=== PATIENT | male | born 1955 | race Caucasian/White ===

== ENCOUNTER 2016-08-27 08:01 | Inpatient (IN) | payer MEDICAID ==
[~2016-08-27] VITALS: Ht 188 cm; Wt 106.8 kg
[2016-08-27] VITALS (22 sets, daily range): BP systolic 101–159; BP diastolic 74–106; PULSE 91–149; RESP 17–24; TEMP 98.1–99.1; O2SAT 93–100
[~2016-08-27 08:01] MED LIST: AMLO10 PO; CARV6.252 PO; CHLO25CA2 PO; IPRASOL NEB; LACT PO; LEVA750T PO; LISI-515 PO; THIA100T PO
[2016-08-27] MEDS ORDERED: SODIUM CHLORIDE 0.9% FLUSH 5 ML FLUSH IVF PRN (08:15)
[2016-08-27] MEDS ORDERED: METOPROLOL TARTRATE 5 MG/5 ML VIAL IV PUSH ONE ×2 (08:15→08:30)
[2016-08-27] MEDS ORDERED: AMLO10TA2 PO (08:28)
[2016-08-27] MEDS ORDERED: ONDANSETRON HCL 4 MG/2 ML VIAL IV PUSH ONE (08:30)
[2016-08-27] MEDS ORDERED: MORPHINE SULFATE 4 MG/ML INJ IV PUSH ONE (08:30)
--- NOTE | 2016-08-27 08:32 | PD ---
HPI Chief Complaint: Chest Pain Time Seen by Provider: 08:03 Travel History International Travel<30 days: No Contact w/Intl Traveler<30days: No Traveled to known affect area: No History of Present Illness HPI 61-year-old male came to the emergency room brought by EMS with history of chest pain and atrial fibrillation with RVR. Patient was given 20 mg of IV Cardizem by paramedics with little improvement of his RVR. When he arrived to the emergency room he continued to have his chest pain which he pointed to substernal area and his heart rate was in 140s to 150s. Patient is an alcoholic and he drank a pint of vodka last night. He has history of atrial fibrillation and was supposed to be on Eliquis but took himself off it because he was bruising and as per the patient it was not doing anything. No history of vomiting or diarrhea. No history of cough or fever. He says he was otherwise feeling fine last night. The pain started this morning. Patient says he has history of left bundle branch block. FORMERLY [facility], [facility] Past Medical History Narrative Medical List of his past medical history is reviewed from the nursing note. Hx Anticoagulant Therapy: Yes Arthritis: Yes (bursitis tendonitis) Asthma: No Atrial Fibrillation: Yes Autoimmune Disease: No Blood Disorders: No Anxiety: Yes Depression: Yes Heart Rhythm Problems: Yes (LBBB) Cancer: No Cardiovascular Problems: Yes High Cholesterol: No Chest Pain: Yes Congestive Heart Failure: Yes COPD: Yes Cerebrovascular Accident: No Diminished Hearing: No Endocrine: No Gastrointestinal Disorders: No Genitourinary: Yes (not urinating "a lot") Headaches: No Hypertension: Yes Immune Disorder: No Implanted Vascular Access Dvce: No Kidney Stones: Yes Musculoskeletal: Yes (broken bones in the past) Neurologic: Yes (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) Psychiatric: No Reproductive: No Respiratory: Yes (COPD) Immunizations Current: Yes Migraines: No Seizures: Yes Shingles: Yes Sleep Apnea: No Ulcer: No Past Surgical History Abdominal Surgery: Yes (HERNIA REPAIR) Cardiac Surgery: No Ear Surgery: No Endocrine Surgery: No Eye Surgery: No Genitourinary Surgery: No Gynecologic Surgery: No Neurologic Surgery: No Oral Surgery: No Thoracic Surgery: No Tonsillectomy: Yes Other Surgery: Yes Social History Alcohol Use: Yes (1-2 PINTS DAILY VODKA) Tobacco Use: Yes (OCCASIONAL) Substance Use: No Allergies-Medications (Allergen,Severity, Reaction): Coded Allergies: Keflex (Verified Allergy, Severe, hives, 08/27/16) Penicillin (Verified Allergy, Severe, hives, 08/27/16) Sulfa (Verified Allergy, Severe, hives, 08/27/16) Nitroglycerin (Verified Allergy, Mild, 08/27/16) vomit Comments List of his allergies reviewed from the nursing note. Reported Meds & Prescriptions Reported Meds & Active Scripts Active Thiamine (Thiamine HCl) 100 Mg Tab 100 Mg PO DAILY Reported Amlodipine (Amlodipine Besylate) 10 Mg Tab 20 Mg PO DAILY Lisinopril 20 Mg Tab 20 Mg PO DAILY Carvedilol 6.25 Mg Tab 6.25 Mg PO BID Narrative Medication List of his home medications reviewed from the nursing note. Review of Systems Except as stated in HPI: all other systems reviewed are Neg Physical Exam Narrative GENERAL: Awake, alert, obese, disheveled, smells of alcohol on his breath SKIN: Warm and dry. HEAD: Atraumatic. Normocephalic. EYES: Pupils equal and round. No scleral icterus. No injection or drainage. ENT: No nasal bleeding or discharge. Mucous membranes pink and moist. NECK: Trachea midline. No JVD. CARDIOVASCULAR: Irregular rate and rhythm. Tachycardia. No murmur appreciated. RESPIRATORY: No accessory muscle use. Clear to auscultation. Breath sounds equal bilaterally. GASTROINTESTINAL: Abdomen soft, non-tender, nondistended. Hepatic and splenic margins not palpable. MUSCULOSKELETAL: No obvious deformities. No clubbing. No cyanosis. No edema. NEUROLOGICAL: Awake and alert. No obvious cranial nerve deficits. Motor grossly within normal limits. Normal speech. PSYCHIATRIC: Appropriate mood and affect; insight and judgment normal. Data Data Last Documented VS Vital Signs Date Time Temp Pulse Resp B/P Pulse Ox O2 Delivery O2 Flow Rate FiO2 08/27/16 09:47 18 08/27/16 09:43 109 147/74 97 Nasal Cannula 2 08/27/16 08:05 99.1 Orders Metoprolol Tartrate Inj (Lopressor Inj) (08/27/16 08:15) Electrocardiogram (08/27/16 08:08) Basic Metabolic Panel (Bmp) (08/27/16 08:08) Ckmb (Isoenzyme) Profile (08/27/16 08:08) Complete Blood Count With Diff (08/27/16 08:08) Magnesium (Mg) (08/27/16 08:08) Prothrombin Time / Inr (Pt) (08/27/16 08:08) Act Partial Throm Time (Ptt) (08/27/16 08:08) Troponin I (08/27/16 08:08) Chest, Single Ap (08/27/16 08:08) Ecg Monitoring (08/27/16 08:08) Bilateral Bp Monitoring (08/27/16 08:08) Iv Access Insert/Monitor (08/27/16 08:08) Oximetry (08/27/16 08:08) Oxygen Administration (08/27/16 08:08) Sodium Chloride 0.9% Flush (Ns Flush) (08/27/16 08:15) Vital Signs (Adult) Q15MX4,Q4H (08/27/16 08:09) ^ Plate Glass Grinder / Telemetry (08/27/16 08:09) Cardiac Rhythm WONG.Q8H (08/27/16 08:09) ^ Notify Dr: Other (08/27/16 08:09) Diltiazem Inj (Cardizem Inj) (08/27/16 08:15) Metoprolol Tartrate Inj (Lopressor Inj) (08/27/16 08:30) Morphine Inj (Morphine Inj) (08/27/16 08:30) Ondansetron Inj (Zofran Inj) (08/27/16 08:30) Heparin Infusion WONG.Q1H (08/27/16 08:33) Heparin Inj (Heparin Inj) (08/27/16 08:45) Heparin-D5w Inj (Heparin-D5w Inj) (08/27/16 08:45) Cbc No Diff, Includes Plts (08/30/16 06:00) Act Partial Throm Time (Ptt) (08/27/16 15:33) Occult Blood (Hemoccult) Stool (08/27/16 08:33) Diltiazem Inj (Cardizem Inj) (08/27/16 09:15) CKMB (08/27/16 08:41) CKMB% (08/27/16 08:41) Lorazepam Inj (Ativan Inj) (08/27/16 09:45) Calcium Gluconate (Calcium Gluconate) (08/27/16 10:15) Admit Order (Ed Use Only) (08/27/16 10:20) Diet Heart Healthy (08/27/16 Lunch) Vital Signs (Adult) WONG.Q4H (08/27/16 10:19) Resp Oxygen Melecio C Titrat 1-4 L (08/27/16 ) Troponin I (08/27/16 15:00) Troponin I (08/27/16 21:00) Multivitamin (Theragran) (08/28/16 09:00) Thiamine (Vit B1) (Vitamin B1) (08/28/16 09:00) Labs Laboratory Tests Test 08/27/16 08:41 White Blood Count 5.7 TH/MM3 Red Blood Count 4.70 MIL/MM3 Hemoglobin 15.6 GM/DL Hematocrit 45.9 % Mean Corpuscular Volume 97.6 FL Mean Corpuscular Hemoglobin 33.2 PG Mean Corpuscular Hemoglobin 34.0 % Concent Red Cell Distribution Width 14.7 % Platelet Count 179 TH/MM3 Mean Platelet Volume 7.4 FL Neutrophils (%) (Auto) 62.0 % Lymphocytes (%) (Auto) 21.2 % Monocytes (%) (Auto) 14.8 % Eosinophils (%) (Auto) 1.0 % Basophils (%) (Auto) 1.0 % Neutrophils # (Auto) 3.6 TH/MM3 Lymphocytes # (Auto) 1.2 TH/MM3 Monocytes # (Auto) 0.8 TH/MM3 Eosinophils # (Auto) 0.1 TH/MM3 Basophils # (Auto) 0.1 TH/MM3 CBC Comment DIFF FINAL Differential Comment Prothrombin Time 11.4 SEC Prothromb Time International 1.0 RATIO Ratio Activated Partial 25.4 SEC Thromboplast Time Sodium Level 143 MEQ/L Potassium Level 4.4 MEQ/L Chloride Level 106 MEQ/L Carbon Dioxide Level 25.8 MEQ/L Anion Gap 11 MEQ/L Blood Urea Nitrogen 14 MG/DL Creatinine 0.87 MG/DL Estimat Glomerular Filtration 89 ML/MIN Rate Random Glucose 110 MG/DL Calcium Level 7.8 MG/DL Magnesium Level 1.7 MG/DL Total Creatine Kinase 149 U/L Creatine Kinase MB 2.6 NG/ML Troponin I 0.04 NG/ML MDM Medical Decision Making Medical Screen Exam Complete: Yes Emergency Medical Condition: Yes Medical Record Reviewed: Yes Interpretation(s) Twelve-lead EKG was reviewed by me. Atrial fibrillation/atrial flutter, to his to 1 block, normal axis, RVR, left bundle branch block. Heart rate of 150 bpm. Differential Diagnosis Chronic alcoholism, atrial fibrillation with RVR, ACS, non-STEMI Narrative Course 8:31 AM patient was given 5 mg of IV Lopressor followed by 2.5 mg. I injected the Lopressor personally. His heart rate currently is in 1 teens. I waiting for the Cardizem drip. I will start him on heparin bolus and drip as well. Patient will need to be admitted. He was given morphine and Zofran for his chest pain. Awaiting for the blood test results. 10:03 AM patient's blood test results of back and they are overall within normal limit. His calcium is slightly low and I have ordered for by mouth calcium. Patient is currently on Cardizem drip and heparin drip and his heart rate is between 120s to 130s. He had received another 20 mg of Cardizem bolus. He also requested for Ativan IV which was ordered. Critical Care Narrative Aggregate critical care time was 60 minutes. Time to perform other separately billable procedures was not included in the critical care time. My time did not include minutes spent treating any other patients simultaneously or on activities that did not directly contribute to the patient's treatment. The services I provided to this patient were to treat and/or prevent clinically significant deterioration that could result in: Atrial fibrillation with RVR, multiple medications and doses for RVR control , Cardizem bolus and drip, heparin bolus and drip I provided critical care services requiring my management, as noted below: Chart data review, documentation time, medication orders and management, vital sign assessments/reviewing monitor data, ordering and reviewing lab tests, ordering and interpreting/reviewing x-rays and diagnostic studies, care of the patient and discussion of the patient with the admitting physicians. Procedures EKG Prior to Arrival: Yes Diagnosis Primary Impression: Atrial fibrillation with RVR Additional Impressions: Alcohol dependence Qualified Code: F10.20 - Uncomplicated alcohol dependence Chest pain Qualified Code: R07.9 - Chest pain, unspecified type Admitting Information Admitting Physician Requests: it Mateo Carlson MD Aug 27, 2016 08:32
[2016-08-27] MEDS: DILTIAZEM INJ 125 MG in SODIUM CHLORIDE 0.9% INJ 100 ML IV SCH (08:34)
[2016-08-27] MEDS ORDERED: HEPARIN SODIUM - IV 10,000 UNITS/10 ML VIAL IV ONE (08:45)
[2016-08-27 08:58] LABS: AUTOMATED NEUTROPHIL # 3.6 TH/MM3 (1.8-7.7); BASOPHIL # 0.1 TH/MM3 (0-0.2); EOSINOPHIL # 0.1 TH/MM3 (0-0.4); HEMATOCRIT 45.9 % (39.0-51.0); HEMO FLAGS DIFF FINAL; LYMPH % 21.2 % (9.0-44.0); LYMPHOCYTE # 1.2 TH/MM3 (1.0-4.8); MEAN CELL VOLUME 97.6 FL (80.0-100.0); MEAN CORPUSCULAR HEMOGLOBIN 33.2 PG (27.0-34.0); MONO % 14.8 % (0.0-8.0); PLATELET COUNT 179 TH/MM3 (150-450); RED CELL DISTRIBUTION WIDTH 14.7 % (11.6-17.2); WHITE BLOOD COUNT 5.7 TH/MM3 (4.0-11.0)
[2016-08-27] MEDS: HEPARIN-D5W INJ 250 ML IV SCH (08:59)
[2016-08-27 09:04] LABS: APTT (PATIENT) 25.4 SEC (24.3-30.1); PROTHROMBIN TIME - PATIENT 11.4 SEC (9.8-11.6)
--- NOTE | 2016-08-27 09:04 | RADRPT ---
EXAM DATE/TIME: 08/27/2016 08:43 [facility] COMPARISON: CHEST SINGLE AP, August 03, 2016, 4:11. INDICATIONS : Chest pain, shortness of breath and shaking. MEDICAL HISTORY : Chronic obstructive pulmonary disease. SURGICAL HISTORY : None. ENCOUNTER: Initial ACUITY: 1 day PAIN SCORE: 5/10 LOCATION: Center of chest. FINDINGS: A single view of the chest demonstrates the lungs to be symmetrically aerated without evidence of mas s, infiltrate or effusion. The cardiomediastinal contours are unremarkable. Osseous structures are intact. CONCLUSION: Normal examination. Kentrell Eubanks MD on August 27, 2016 at 9:02 Board Certified Radiologist. This report was verified electronically.
[2016-08-27] MEDS ORDERED: DILTIAZEM HCL 25 MG/5 ML VIAL IV ONE (09:15)
[2016-08-27 09:25] LABS: ANION GAP 11 MEQ/L (5-15); BICARBONATE 25.8 MEQ/L (21.0-32.0); BLOOD UREA NITROGEN 14 MG/DL (7-18); CHLORIDE 106 MEQ/L (98-107); CREATINE KINASE 149 U/L (39-308); GLOMERULAR FILTRATION RATE 89 ML/MIN (>89); MAGNESIUM 1.7 MG/DL (1.5-2.5); POTASSIUM 4.4 MEQ/L (3.5-5.1); SODIUM (NA) 143 MEQ/L (136-145)
[2016-08-27 09:38] LABS: CKMB 2.6 NG/ML (0.5-3.6)
[2016-08-27] MEDS ORDERED: LORazepam 2 MG/ML VIAL IV PUSH ONE (09:45)
[2016-08-27] MEDS ORDERED: CALCIUM GLUCONATE 500 MG TAB PO ONE (10:15)
[2016-08-27] MEDS ORDERED: SODIUM CHLORIDE 0.9% FLUSH 5 ML FLUSH IV FLUSH PRN (10:45)
--- NOTE | 2016-08-27 10:49 | HHI.HP ---
[facility] Service [facility] Primary Care Physician Jessica Flores MD Admission Diagnosis A. fib with RVR, chest pain rule out ACS, alcohol dependence Diagnoses: (1) Atrial fibrillation with RVR Diagnosis: Principal (2) Anxiety Diagnosis: Principal (3) Chest pain Diagnosis: Principal Chief Complaint: sob Travel History International Travel<30 Days: No Contact w/Intl Traveler <30 Da: No Traveled to Known Affected Are: No History of Present Illness patient is a 61 y/o male with history of hypertension, atrial fibrillation, chronic alcohol abuser, who presented with sob. he says that earlier this morning when he was going to gas station he started to have worsening sob. he also had some midsternal chest pain.his HR was in 140's at the time. he denies any fever, chills or cough. he says that he had some nausea with no emesis or diaphoresis.he drinks a pint of Vodka daily and the last drink was last night. he says that he was on eliquis which he stopped last year because of bruising. Review of Systems Constitutional: DENIES: Fever, Weight loss, Chills, Night Sweats Eyes: DENIES: Blurred vision, Diplopia, Vision loss, Double Vision Ears, nose, mouth, throat: DENIES: Tinnitus, Vertigo, Throat pain, Epistaxis Respiratory: COMPLAINS OF: Shortness of breath, DENIES: Apneas, Cough, Snoring , Wheezing, Hemoptysis, Sputum production Cardiovascular: COMPLAINS OF: Chest pain, DENIES: Palpitations, Syncope, Dyspnea on Exertion, PND, Lower Extremity Edema, Orthopnea, Claudication Gastrointestinal: COMPLAINS OF: Nausea, DENIES: Abdominal pain, Black stools, Bloody stools, Constipation, Diarrhea, Vomiting, Difficulty Swallowing, Anorexia Genitourinary: DENIES: Urinary frequency, Urgency, Hematuria, Dysuria Musculoskeletal: DENIES: Joint pain, Muscle aches, Stiffness, Joint Swelling Integumentary: DENIES: Rash Neurologic: DENIES: Abnormal gait, Headache, Localized weakness, Paresthesias, Seizures, Speech Problems, Tremor, Poor Balance Psychiatric: DENIES: Anxiety, Confusion, Mood changes, Depression, Hallucinations, Agitation, Suicidal Ideation, Homicidal Ideation, Delusions Past Family Social History Past Medical History hypertension cardiomyopathy Past Surgical History multiple ortho surgeries. Reported Medications thiamine coreg amlodipine lisinopril Allergies: Coded Allergies: Keflex (Verified Allergy, Severe, hives, 08/27/16) Penicillin (Verified Allergy, Severe, hives, 08/27/16) Sulfa (Verified Allergy, Severe, hives, 08/27/16) Nitroglycerin (Verified Allergy, Mild, 08/27/16) vomit Active Ordered Medications Current Medications Metoprolol Tartrate (Lopressor Inj) 5 mg ONCE ONCE IV PUSH Last administered on 08/27/16 08:21; Start 08/27/16 at 08:15; Stop 08/27/16 at 08:16; Status DC IV Flush 2 ml 2 ml UNSCH PRN IVF FLUSH AFTER USING IV ACCESS Last administered on 08/27/16 08:22; Start 08/27/16 at 08:15 Diltiazem HCl/ Sodium Chloride (Cardizem Inj/NS Inj) 125 ml @ 0 mls/hr TITRATE IV Last administered on 08/27/16 08:34; Start 08/27/16 at 08:15 Metoprolol Tartrate (Lopressor Inj) 2.5 mg ONCE ONCE IV PUSH Last administered on 08/27/16 08:21; Start 08/27/16 at 08:30; Stop 08/27/16 at 08:31 ; Status DC Morphine Sulfate (Morphine Inj) 4 mg ONCE ONCE IV PUSH Last administered on 08:33; Start 08/27/16 at 08:30; Stop 08/27/16 at 08:31; Status DC Ondansetron HCl (Zofran Inj) 4 mg ONCE ONCE IV PUSH Last administered on 08:33; Start 08/27/16 at 08:30; Stop 08/27/16 at 08:31; Status DC Heparin Sodium (Porcine) 5000 units 5,000 units ONCE ONCE IV Last administered on 08/27/16 08:58; Start 08/27/16 at 08:45; Stop 08/27/16 at 08:46 ; Status DC Heparin Sodium/ Dextrose (Heparin-D5W Inj) 250 ml @ 0 mls/hr TITRATE IV Last administered on 08/27/16 08:59; Start 08/27/16 at 08:45 Diltiazem HCl (Cardizem Inj) 20 mg ONCE ONCE IV Last administered on 09:15; Start 08/27/16 at 09:15; Stop 08/27/16 at 09:16; Status DC Lorazepam (Ativan Inj) 1 mg ONCE ONCE IV PUSH Last administered on 08/27/16 09:38; Start 08/27/16 at 09:45; Stop 08/27/16 at 09:46; Status DC Calcium Gluconate (Calcium Gluconate) 500 mg ONCE ONCE PO ; Start 08/27/16 at 10:15; Stop 08/27/16 at 10:16; Status DC Multivitamins (Theragran) 1 tab DAILY PO ; Start 08/28/16 at 09:00 Thiamine HCl (Vitamin B1) 100 mg DAILY PO ; Start 08/28/16 at 09:00; Status UNV Family History a-fib in mother. Social History quit smoking- drinks a pint of Vodka daily. Physical Exam Vital Signs Vital Signs Date Time Temp Pulse Resp B/P Pulse Ox O2 Delivery O2 Flow Rate FiO2 08/27/16 10:26 97 Nasal Cannula 2.00 08/27/16 09:47 18 08/27/16 09:43 109 19 147/74 97 Nasal Cannula 2 08/27/16 09:11 129 18 159/100 97 Nasal Cannula 2 08/27/16 09:04 123 17 99 Nasal Cannula 2 08/27/16 08:54 129 20 155/97 97 Nasal Cannula 08/27/16 08:40 148/83 153/103 08/27/16 08:25 130 20 129/97 97 Nasal Cannula 08/27/16 08:18 113 22 148/105 100 Nasal Cannula 2 08/27/16 08:05 99.1 149 24 130/90 97 Physical Exam GENERAL: This is a well-nourished, well-developed patient, in no apparent distress. SKIN: No rashes, ecchymoses or lesions. Cool and dry. HEAD: Atraumatic. Normocephalic. No temporal or scalp tenderness. EYES: Pupils equal round and reactive. Extraocular motions intact. No scleral icterus. No injection or drainage. ENT: Nose without bleeding, purulent drainage or septal hematoma. Throat without erythema, tonsillar hypertrophy or exudate. Uvula midline. Airway patent. NECK: Trachea midline. No JVD or lymphadenopathy. Supple, nontender, no meningeal signs. CARDIOVASCULAR:irregular rhythm and tachycardic RESPIRATORY: Clear to auscultation. Breath sounds equal bilaterally. No wheezes , rales, or rhonchi. GASTROINTESTINAL: Abdomen soft, non-tender, nondistended. No hepato-splenomegaly , or palpable masses. No guarding. MUSCULOSKELETAL: Extremities without clubbing, cyanosis, or edema. No joint tenderness, effusion, or edema noted. No calf tenderness. Negative Homans sign bilaterally. NEUROLOGICAL: Awake and alert. Cranial nerves II through XII intact. Motor and sensory grossly within normal limits. Five out of 5 muscle strength in all muscle groups. Normal speech. Laboratory Laboratory Tests Test 08/27/16 08:41 White Blood Count 5.7 Red Blood Count 4.70 Hemoglobin 15.6 Hematocrit 45.9 Mean Corpuscular Volume 97.6 Mean Corpuscular Hemoglobin 33.2 Mean Corpuscular Hemoglobin 34.0 Concent Red Cell Distribution Width 14.7 Platelet Count 179 Mean Platelet Volume 7.4 Neutrophils (%) (Auto) 62.0 Lymphocytes (%) (Auto) 21.2 Monocytes (%) (Auto) 14.8 Eosinophils (%) (Auto) 1.0 Basophils (%) (Auto) 1.0 Neutrophils # (Auto) 3.6 Lymphocytes # (Auto) 1.2 Monocytes # (Auto) 0.8 Eosinophils # (Auto) 0.1 Basophils # (Auto) 0.1 CBC Comment DIFF FINAL Differential Comment Prothrombin Time 11.4 Prothromb Time International 1.0 Ratio Activated Partial 25.4 Thromboplast Time Sodium Level 143 Potassium Level 4.4 Chloride Level 106 Carbon Dioxide Level 25.8 Anion Gap 11 Blood Urea Nitrogen 14 Creatinine 0.87 Estimat Glomerular Filtration 89 Rate Random Glucose 110 Calcium Level 7.8 Magnesium Level 1.7 Total Creatine Kinase 149 Creatine Kinase MB 2.6 Troponin I 0.04 Result Diagram: 08/27/16 0841 08/27/16 0841 Imaging CXR; normal EKG; atrial fibrillation with rapid rate and LBBB Assessment and Plan Assessment and Plan A/P - atrial fibrillation with rapid rate started on IV cardizem and hemarin drip- will start po cardizem and monitor will consider cardiology consult if no improvement with HR had a recent echo not a good candidate for outpatient anticoagulation in light of his alcohol dependency and noncompliance -chest pain; will start aspirin- check the cardiac enzyme trend had a stress test less than a year ago with no ischemia -cardiomyopathy ( recent echo with EF 40%); will resume lisinopril if BP stable -alcohol abuse; counselled on drinking cessation- start on Ativan as needed/ will resume thiamine and start multivitamin -DVT prophylaxis ; on heparin drip Discussed Condition With ER physician, the patient and RN. Physician Certification 2 Midnight Certification Type: Admission for Inpatient Services Order for Inpatient Services The services are ordered in accordance with Medicare regulations or non- Medicare payer requirements, as applicable. In the case of services not specified as inpatient-only, they are appropriately provided as inpatient services in accordance with the 2-midnight benchmark. Estimated LOS (days): 2 days is the estimated time the patient will need to remain in the hospital, assuming treatment plan goals are met and no additional complications. Post-Hospital Plan: Home Problem Qualifiers (1) Chest pain: Qualified Code: R07.9 - Chest pain, unspecified type Lisa Varela MD Aug 27, 2016 10:49
[2016-08-27] MEDS: ASPIRIN 81 MG CHEW TAB CHEW SCH (11:21)
[2016-08-27] MEDS: DILTIAZEM HCL 30 MG TAB PO SCH ×4 (11:21→21:00)
[2016-08-27] MEDS ORDERED: FLUMAZENIL 0.5 MG/5 ML VIAL IV PUSH PRN (12:00)
[2016-08-27] MEDS ORDERED: LORazepam 2 MG/ML VIAL IV PUSH PRN (12:00)
[2016-08-27] MEDS: MORPHINE SULFATE 4 MG/ML INJ IV PUSH PRN ×3 (12:22→20:36)
[2016-08-27] MEDS: LORazepam 2 MG/ML VIAL IV PUSH PRN ×6 (13:02→22:11)
[2016-08-27 15:30] LABS: APTT (PATIENT) 54.4 SEC (24.3-30.1)
--- NOTE | 2016-08-27 18:04 | MB ---
cc: JUNIOR LEW MD DATE OF CONSULTATION: 08/27/2016. REASON FOR CONSULTATION: Recurrent atrial fibrillation. HISTORY OF PRESENT ILLNESS: The patient is a pleasant though troubled 61-year-old gentleman with history of chronic alcohol abuse with multiple presentations for rapid atrial fibrillation and atypical chest pain. He presents with the same. He is currently asking for pain medications. He says he continues to drink over a pint of vodka a day but he was successful in smoking cessation. The symptoms started earlier this morning. He does say he has been compliant with his outpatient regimen, though there are multiple documented reports in the chart of noncompliance. PAST MEDICAL HISTORY: Past medical history as above. CURRENT MEDICATIONS: 1. Thiamine. 2. Folate. 3. Morphine. 4. Cardizem 30 milligrams four times a day. ALLERGIES: 1. KEFLEX. 2. NITROGLYCERIN. 3. PENICILLIN. 4. SULFA. PHYSICAL EXAMINATION: VITAL SIGNS: Temperature 99.1, pulse 1-teens, respiratory rate 17, blood pressure 127/93 satting 96 on room air. GENERAL: A pleasant anxious gentleman in no distress. NECK: No jugular venous distention. LUNGS: Clear to auscultation bilaterally. CARDIOVASCULAR: Irregularly irregular rhythm with a mildly rapid rate. No murmurs appreciated. ABDOMEN: Benign. EXTREMITIES: No edema. LABORATORY DATA: White count 5.7, hematocrit 45.9, platelet count 179,000. Sodium 143, potassium 4.4, chloride 106, bicarbonate 25.8, BUN 14, creatinine 0.87, glucose 110. White count 5.7, hematocrit 45.9, platelets 179,000. CARDIOLOGY STUDIES: EKG shows atrial fibrillation with rapid ventricular response and left bundle-branch block. Nuclear stress test from November of 2015 showed no ischemia. Her echocardiogram 06/2016 showed a reduced ejection fraction of 30% to 35%. IMPRESSION: 1. Rapid atrial fibrillation. The patient is currently on a Cardizem drip. I will increase the oral regimen and add metoprolol to his oral Cardizem. He is not a candidate for anticoagulation due to his poor compliance and ongoing alcohol abuse. 2. Alcoholic cardiomyopathy. The patient is being medically managed. I do think he should discuss the possibility of a defibrillator with his outpatient microbiology technologist should he be able to maintain a compliant regimen of both medication and follow up visits. I did explain at length with the patient that his ongoing drinking will have severe morbidity and mortality risk and recommended inpatient rehab. He says he will consider. Thank you again for the opportunity to participate in this patient's care. MD RUDOLPH Dacosta/JEREMIAH /3:18 PM /5:56 PM
[2016-08-27] MEDS: SODIUM CHLORIDE 0.9% FLUSH 5 ML FLUSH IV FLUSH SCH (21:00)
[2016-08-27] MEDS: CARVEDILOL 6.25 MG TAB PO SCH (21:49)
[2016-08-27 22:03] LABS: APTT (PATIENT) 51.9 SEC (24.3-30.1)
[2016-08-28] VITALS (26 sets, daily range): BP systolic 85–142; BP diastolic 68–106; PULSE 78–126; RESP 18–22; TEMP 97.5–99.1; O2SAT 92–96
[2016-08-28] MEDS: MORPHINE SULFATE 4 MG/ML INJ IV PUSH PRN ×5 (00:11→22:20)
[2016-08-28] MEDS: LORazepam 2 MG/ML VIAL IV PUSH PRN ×5 (00:11→18:30)
[2016-08-28 06:00] LABS: APTT (PATIENT) 52.1 SEC (24.3-30.1)
--- NOTE | 2016-08-28 09:01 | HHI.PR ---
Subjective Remarks f/u; rapid a-fib/ alcohol withdrawal in no acute distress. has on and off chest pain and mild sob. still somewhat ' shaky' but says that ativan helps. asking for something to help him with sleep. d/w the RN and no other acute issues over night. Objective Vitals Vital Signs Date Time Temp Pulse Resp B/P Pulse Ox O2 Delivery O2 Flow Rate FiO2 08/28/16 07:00 103 08/28/16 07:00 103 22 117/85 08/28/16 06:00 99 08/28/16 06:00 99 20 116/100 08/28/16 05:30 99 20 120/79 08/28/16 05:00 97 20 127/76 08/28/16 05:00 97 08/28/16 04:00 99 20 136/94 08/28/16 04:00 99 08/28/16 03:30 98.1 116 20 117/81 92 08/28/16 03:00 93 08/28/16 02:00 95 08/28/16 02:00 122/82 08/28/16 01:00 108 08/28/16 00:00 98.1 91 20 101/85 96 08/28/16 00:00 119 08/27/16 23:00 98 18 127/94 93 08/27/16 21:45 118 20 149/100 95 08/27/16 21:30 119 08/27/16 21:00 98.2 119 20 134/106 96 08/27/16 20:18 109 129/96 97 Nasal Cannula 2 08/27/16 18:24 126 18 142/98 97 Nasal Cannula 2 08/27/16 17:46 17 08/27/16 17:41 103 17 136/89 97 Nasal Cannula 2 08/27/16 16:38 109 17 145/92 96 Nasal Cannula 2 08/27/16 15:26 102 20 134/98 98 Nasal Cannula 2 08/27/16 14:22 110 17 127/93 96 Room Air 08/27/16 13:30 119 18 132/90 97 Nasal Cannula 2 08/27/16 12:23 110 18 156/79 98 Nasal Cannula 2 08/27/16 11:28 112 18 130/94 97 Nasal Cannula 2 08/27/16 10:30 106 20 117/99 98 Nasal Cannula 2 08/27/16 10:26 97 Nasal Cannula 2.00 08/27/16 09:47 18 08/27/16 09:43 109 19 147/74 97 Nasal Cannula 2 08/27/16 09:11 129 18 159/100 97 Nasal Cannula 2 08/27/16 09:04 123 17 99 Nasal Cannula 2 I/O 08/27/16 08/27/16 08/27/16 08/28/16 08/28/16 08/28/16 07:00 15:00 23:00 07:00 15:00 23:00 Intake Total 720 ml 938 ml Output Total 200 ml 300 ml Balance 520 ml 638 ml Intake Oral 720 ml 300 ml IV Total 638 ml Output Urine Total 200 ml 300 ml # Voids 1 Result Diagram: 08/27/16 0841 08/27/16 0841 Imaging Last Impressions Chest X-Ray 08/27/16 0808 Signed Impressions: Service Date/Time: Saturday, August 27, 2016 08:43 - CONCLUSION: Normal examination. Kentrell Eubanks MD Objective Remarks GENERAL: This is a well-nourished, well-developed patient, in no apparent distress. CARDIOVASCULAR: tachycardic with irregular rhythm without murmurs, gallops, or rubs. RESPIRATORY: Clear to auscultation. Breath sounds equal bilaterally. No wheezes , rales, or rhonchi. GASTROINTESTINAL: Abdomen soft, non-tender, nondistended. Normal, active bowel sounds MUSCULOSKELETAL: Extremities without clubbing, cyanosis, or edema. NEURO: Alert & Oriented x4 to person, place, time, situation. Moves all ext x4 Procedures none Medications and IVs Current Medications Metoprolol Tartrate (Lopressor Inj) 5 mg ONCE ONCE IV PUSH Last administered on 08/27/16 08:21; Start 08/27/16 at 08:15; Stop 08/27/16 at 08:16; Status DC IV Flush 2 ml 2 ml UNSCH PRN IVF FLUSH AFTER USING IV ACCESS Last administered on 08/27/16 08:22; Start 08/27/16 at 08:15 Diltiazem HCl/ Sodium Chloride (Cardizem Inj/NS Inj) 125 ml @ 0 mls/hr TITRATE IV Last administered on 08/27/16 08:34; Start 08/27/16 at 08:15 Metoprolol Tartrate (Lopressor Inj) 2.5 mg ONCE ONCE IV PUSH Last administered on 08/27/16 08:21; Start 08/27/16 at 08:30; Stop 08/27/16 at 08:31 ; Status DC Morphine Sulfate (Morphine Inj) 4 mg ONCE ONCE IV PUSH Last administered on 08:33; Start 08/27/16 at 08:30; Stop 08/27/16 at 08:31; Status DC Ondansetron HCl (Zofran Inj) 4 mg ONCE ONCE IV PUSH Last administered on 08:33; Start 08/27/16 at 08:30; Stop 08/27/16 at 08:31; Status DC Heparin Sodium (Porcine) 5000 units 5,000 units ONCE ONCE IV Last administered on 08/27/16 08:58; Start 08/27/16 at 08:45; Stop 08/27/16 at 08:46 ; Status DC Heparin Sodium/ Dextrose (Heparin-D5W Inj) 250 ml @ 0 mls/hr TITRATE IV Last administered on 08/27/16 08:59; Start 08/27/16 at 08:45 Diltiazem HCl (Cardizem Inj) 20 mg ONCE ONCE IV Last administered on 09:15; Start 08/27/16 at 09:15; Stop 08/27/16 at 09:16; Status DC Lorazepam (Ativan Inj) 1 mg ONCE ONCE IV PUSH Last administered on 08/27/16 09:38; Start 08/27/16 at 09:45; Stop 08/27/16 at 09:46; Status DC Calcium Gluconate (Calcium Gluconate) 500 mg ONCE ONCE PO Last administered on 08/27/16 11:00; Start 08/27/16 at 10:15; Stop 08/27/16 at 10:16; Status DC Multivitamins (Theragran) 1 tab DAILY PO ; Start 08/28/16 at 09:00 Thiamine HCl (Vitamin B1) 100 mg DAILY PO ; Start 08/28/16 at 09:00 IV Flush (NS Flush) 2 ml UNSCH PRN IV FLUSH FLUSH AFTER USING IV ACCESS; Start 08/27/16 at 10:45 IV Flush (NS Flush) 2 ml BID IV FLUSH ; Start 08/27/16 at 21:00 Flumazenil (Romazicon Inj) 0.2 mg Q1M PRN IV PUSH SEE LABEL COMMENTS; Start at 12:00; Stop 08/27/16 at 12:05; Status DC Lorazepam (Ativan) 1 mg Q4H PRN PO CIWA 8 - 10; Start 08/27/16 at 10:45 Lorazepam (Ativan Inj) 1 mg Q4H PRN IV PUSH CIWA 8 - 10 Last administered on 08:21; Start 08/27/16 at 12:00 Lorazepam (Ativan) 2 mg Q2H PRN PO CIWA 11-14; Start 08/27/16 at 12:00 Lorazepam (Ativan Inj) 2 mg Q2H PRN IV PUSH CIWA 11-14 Last administered on 02:40; Start 08/27/16 at 12:00 Lorazepam (Ativan Inj) 2 mg Q1H PRN IV PUSH CIWA 15-20 Last administered on 20:37; Start 08/27/16 at 12:00 Lorazepam (Ativan Inj) 2 mg Q15M PRN IV PUSH CIWA > 20; Start 08/27/16 at 12:00 Diltiazem HCl (Cardizem) 30 mg QID PO Last administered on 08/27/16 13:28; Start 08/27/16 at 11:00; Stop 08/27/16 at 15:23; Status DC Morphine Sulfate (Morphine Inj) 2 mg Q4HR PRN IV PUSH CHEST PAIN Last administered on 08/28/16 04:42; Start 08/27/16 at 12:00 Aspirin (Aspirin Chew) 162 mg DAILY CHEW Last administered on 08/27/16 11:21; Start 08/27/16 at 11:00 Diltiazem HCl (Cardizem) 60 mg QID PO Last administered on 08/27/16 18:23; Start 08/27/16 at 18:00 Carvedilol (Coreg) 6.25 mg Q12HR PO Last administered on 08/27/16 21:49; Start 08/27/16 at 21:00 A/P Assessment and Plan A/P - atrial fibrillation with rapid rate started on IV cardizem and hemarin drip- started on po cardizem and coreg.continue aspirin not a good candidate for outpatient anticoagulation in light of his alcohol dependency and noncompliance cardiology consult appreciated. had an echo in 2015 with EF 40% -chest pain;cardiac enzymes negative-cardiology following. had a stress test less than a year ago with no ischemia -cardiomyopathy ( recent echo with EF 40%); will consider resuming lisinopril if BP stable -alcohol withdrawal; counselled on drinking cessation- started on Ativan as needed/ continue multivitamin and thiamine -DVT prophylaxis ; on heparin drip Lisa Varela MD Aug 28, 2016 09:01
[2016-08-28] MEDS: ASPIRIN 81 MG CHEW TAB CHEW SCH (10:11)
[2016-08-28] MEDS: CARVEDILOL 6.25 MG TAB PO SCH ×2 (10:11→20:35)
[2016-08-28] MEDS: DILTIAZEM HCL 30 MG TAB PO SCH (10:11)
[2016-08-28] MEDS: THIAMINE HCL 100 MG TAB PO SCH (10:11)
[2016-08-28] MEDS: SODIUM CHLORIDE 0.9% FLUSH 5 ML FLUSH IV FLUSH SCH ×2 (10:12→20:35)
[2016-08-28] MEDS: MULTIVITAMIN TAB PO SCH (10:12)
--- NOTE | 2016-08-28 10:20 | PD.CARD.PN ---
Subjective Subjective Remarks Rates improving, still on ggt Objective Medications Administered Medications Medications (Trade) Dose Ordered Sig/Candy Route PRN Reason Start Time Stop Time Status Last Admin Dose Admin IV Flush 2 ml 2 ml UNSCH PRN IVF FLUSH AFTER USING IV ACCESS 08/27/16 08:15 08/27/16 08:22 Diltiazem HCl 125 mg/Sodium Chloride 125 ml @ 0 mls/hr TITRATE IV 08/27/16 08:15 08/27/16 08:34 Heparin Sodium/ Dextrose (Heparin-D5W Inj) 250 ml @ 0 mls/hr TITRATE IV 08/27/16 08:45 08/27/16 08:59 Multivitamins (Theragran) 1 tab DAILY PO 08/28/16 09:00 08/28/16 10:12 Thiamine HCl (Vitamin B1) 100 mg DAILY PO 08/28/16 09:00 08/28/16 10:11 IV Flush (NS Flush) 2 ml BID IV FLUSH 08/27/16 21:00 08/28/16 10:12 Lorazepam (Ativan Inj) 1 mg Q4H PRN IV PUSH CIWA 8 - 10 08/27/16 12:00 08/28/16 08:21 Lorazepam (Ativan Inj) 2 mg Q2H PRN IV PUSH CIWA 11-14 08/27/16 12:00 08/28/16 02:40 Lorazepam (Ativan Inj) 2 mg Q1H PRN IV PUSH CIWA 15-20 08/27/16 12:00 08/27/16 20:37 Morphine Sulfate (Morphine Inj) 2 mg Q4HR PRN IV PUSH CHEST PAIN 08/27/16 12:00 08/28/16 10:13 Aspirin (Aspirin Chew) 162 mg DAILY CHEW 08/27/16 11:00 08/28/16 10:11 Diltiazem HCl (Cardizem) 60 mg QID PO 08/27/16 18:00 08/28/16 10:11 Carvedilol (Coreg) 6.25 mg Q12HR PO 08/27/16 21:00 08/28/16 10:11 Vital Signs / I&O Vital Signs Date Time Temp Pulse Resp B/P Pulse Ox O2 Delivery O2 Flow Rate FiO2 08/28/16 07:00 103 08/28/16 07:00 103 22 117/85 08/28/16 06:00 99 08/28/16 06:00 99 20 116/100 08/28/16 05:30 99 20 120/79 08/28/16 05:00 97 20 127/76 08/28/16 05:00 97 08/28/16 04:00 99 20 136/94 08/28/16 04:00 99 08/28/16 03:30 98.1 116 20 117/81 92 08/28/16 03:00 93 08/28/16 02:00 95 08/28/16 02:00 122/82 08/28/16 01:00 108 08/28/16 00:00 98.1 91 20 101/85 96 08/28/16 00:00 119 08/27/16 23:00 98 18 127/94 93 08/27/16 21:45 118 20 149/100 95 08/27/16 21:30 119 08/27/16 21:00 98.2 119 20 134/106 96 08/27/16 20:18 109 129/96 97 Nasal Cannula 2 08/27/16 18:24 126 18 142/98 97 Nasal Cannula 2 08/27/16 17:46 17 08/27/16 17:41 103 17 136/89 97 Nasal Cannula 2 08/27/16 16:38 109 17 145/92 96 Nasal Cannula 2 08/27/16 15:26 102 20 134/98 98 Nasal Cannula 2 08/27/16 14:22 110 17 127/93 96 Room Air 08/27/16 13:30 119 18 132/90 97 Nasal Cannula 2 08/27/16 12:23 110 18 156/79 98 Nasal Cannula 2 08/27/16 11:28 112 18 130/94 97 Nasal Cannula 2 08/27/16 10:30 106 20 117/99 98 Nasal Cannula 2 08/27/16 10:26 97 Nasal Cannula 2.00 I/O 08/27/16 08/27/16 08/27/16 08/28/16 08/28/16 08/28/16 07:00 15:00 23:00 07:00 15:00 23:00 Intake Total 720 ml 938 ml Output Total 200 ml 300 ml Balance 520 ml 638 ml Intake Oral 720 ml 300 ml IV Total 638 ml Output Urine Total 200 ml 300 ml # Voids 1 Physical Exam GENERAL: This is a well-nourished, well-developed patient, in no apparent distress. CARDIOVASCULAR: Regular rate and irregular rhythm without murmurs, gallops, or rubs. RESPIRATORY: Clear to auscultation. Breath sounds equal bilaterally. No wheezes , rales, or rhonchi. GASTROINTESTINAL: Abdomen soft, non-tender, nondistended. Normal, active bowel sounds MUSCULOSKELETAL: Extremities without clubbing, cyanosis, or edema. NEURO: Alert & Oriented x4 to person, place, time, situation. Moves all ext x4 Laboratory Laboratory Tests Test 08/27/16 08/27/16 08/28/16 15:00 20:57 05:20 Activated Partial 54.4 SEC 51.9 SEC 52.1 SEC Thromboplast Time Troponin I 0.02 NG/ML 0.04 NG/ML Imaging Last Impressions Chest X-Ray 08/27/16 0808 Signed Impressions: Service Date/Time: Saturday, August 27, 2016 08:43 - CONCLUSION: Normal examination. Kentrell Eubanks MD Assessment and Plan Problem List: (1) Atrial fibrillation Assessment and Plan: Not a candidate for anticoagulation due to alcohol abuse, will increase cardizem and try to wean off ggt. (2) Alcohol withdrawal (3) Alcohol abuse Assessment and Plan: counseled at length (4) Chest pain Assessment and Plan: essentially constant, non-ischemic nuc stress less than a year ago, negative enzymes, likely non-cardiac. Problem Qualifiers (1) Chest pain: Qualified Code: R07.9 - Chest pain, unspecified type James Odonnell MD Aug 28, 2016 10:20
[2016-08-28] MEDS ORDERED: CARVEDILOL 6.25 MG TAB PO ONE (10:30)
[2016-08-28] MEDS ORDERED: DILTIAZEM HCL 30 MG TAB PO ONE (10:30)
[2016-08-28] MEDS: DILTIAZEM HCL 90 MG TAB PO SCH ×3 (14:20→20:35)
[2016-08-28] MEDS ORDERED: ONDANSETRON HCL 4 MG/2 ML VIAL IV PUSH PRN (15:15)
--- NOTE | 2016-08-28 19:48 | EKG ---
Date Performed: 08/27/2016 Time Performed: 08:08:45 PTAGE: 61 years EKG: ATRIAL FIBRILLATION WITH RAPID VENTRICULAR RESPONSE LEFT BUNDLE BRANCH BLOCK ABNORMAL ECG PREVIOUS TRACING : 08/01/2016 22.51 DOCTOR: Phil Barros Interpretating Date/Time 08/28/2016 19:40:04
[2016-08-28] MEDS: LORazepam 1 MG TAB PO PRN (22:20)
[2016-08-28] MEDS: ZOLPIDEM TARTRATE 5 MG TAB PO PRN (22:20)
[2016-08-28] MEDS: DILTIAZEM INJ 125 MG in SODIUM CHLORIDE 0.9% INJ 100 ML IV SCH (23:32)
[2016-08-29] VITALS (24 sets, daily range): BP systolic 112–145; BP diastolic 63–104; PULSE 65–112; RESP 18–20; TEMP 97.8–99; O2SAT 93–96
[2016-08-29] MEDS: LORazepam 2 MG/ML VIAL IV PUSH PRN ×5 (00:36→18:50)
[2016-08-29] MEDS: HEPARIN-D5W INJ 250 ML IV SCH (02:28)
--- NOTE | 2016-08-29 08:31 | PD.CARD.PN ---
Subjective Subjective Remarks Rates better, will try to wean off ggt. Feels tired, otherwise no complaints. Objective Medications Administered Medications Medications (Trade) Dose Ordered Sig/Candy Route PRN Reason Start Time Stop Time Status Last Admin Dose Admin IV Flush 2 ml 2 ml UNSCH PRN IVF FLUSH AFTER USING IV ACCESS 08/27/16 08:15 08/27/16 08:22 Diltiazem HCl 125 mg/Sodium Chloride 125 ml @ 0 mls/hr TITRATE IV 08/27/16 08:15 08/28/16 23:32 Heparin Sodium/ Dextrose (Heparin-D5W Inj) 250 ml @ 0 mls/hr TITRATE IV 08/27/16 08:45 08/29/16 02:28 Multivitamins (Theragran) 1 tab DAILY PO 08/28/16 09:00 08/28/16 10:12 Thiamine HCl (Vitamin B1) 100 mg DAILY PO 08/28/16 09:00 08/28/16 10:11 IV Flush (NS Flush) 2 ml BID IV FLUSH 08/27/16 21:00 08/28/16 20:35 Lorazepam (Ativan) 1 mg Q4H PRN PO CIWA 8 - 10 08/27/16 10:45 08/28/16 22:20 Lorazepam (Ativan Inj) 1 mg Q4H PRN IV PUSH CIWA 8 - 10 08/27/16 12:00 08/28/16 18:30 Lorazepam (Ativan Inj) 2 mg Q2H PRN IV PUSH CIWA 11-14 08/27/16 12:00 08/29/16 05:47 Lorazepam (Ativan Inj) 2 mg Q1H PRN IV PUSH CIWA 15-20 08/27/16 12:00 08/27/16 20:37 Morphine Sulfate (Morphine Inj) 2 mg Q4HR PRN IV PUSH CHEST PAIN 08/27/16 12:00 08/28/16 22:20 Aspirin (Aspirin Chew) 162 mg DAILY CHEW 08/27/16 11:00 08/28/16 10:11 Zolpidem Tartrate (Ambien) 5 mg HS PRN PO INSOMNIA 08/28/16 09:15 08/28/16 22:20 Diltiazem HCl (Cardizem) 90 mg QID PO 08/28/16 13:00 08/28/16 20:35 Carvedilol (Coreg) 12.5 mg Q12HR PO 08/28/16 21:00 08/28/16 20:35 Vital Signs / I&O Vital Signs Date Time Temp Pulse Resp B/P Pulse Ox O2 Delivery O2 Flow Rate FiO2 08/29/16 06:00 90 08/29/16 05:00 87 08/29/16 04:00 78 08/29/16 04:00 98.0 80 20 139/83 93 08/29/16 03:00 80 08/29/16 02:00 76 08/29/16 01:00 78 08/29/16 00:00 86 08/29/16 00:00 97.8 65 20 132/85 95 08/28/16 23:00 78 08/28/16 22:00 79 08/28/16 21:00 92 08/28/16 20:17 21 08/28/16 20:00 100 08/28/16 20:00 97.5 100 20 122/88 94 08/28/16 18:00 126 08/28/16 17:00 93 08/28/16 16:00 87 08/28/16 15:00 99.1 97 20 131/68 93 08/28/16 15:00 90 08/28/16 14:00 103 08/28/16 13:00 103 08/28/16 12:00 89 08/28/16 11:00 102 08/28/16 11:00 98.8 95 18 142/94 93 08/28/16 10:19 93 21 08/28/16 10:00 108 08/28/16 09:00 101 I/O 08/28/16 08/28/16 08/28/16 08/29/16 08/29/16 08/29/16 07:00 15:00 23:00 07:00 15:00 23:00 Intake Total 938 ml 1157 ml 570 ml Output Total 300 ml 900 ml 500 ml Balance 638 ml 257 ml 70 ml Intake Oral 300 ml 840 ml 240 ml IV Total 638 ml 317 ml 330 ml Output Urine Total 300 ml 900 ml 500 ml # Bowel Movements 0 Physical Exam GENERAL: This is a well-nourished, well-developed patient, in no apparent distress. CARDIOVASCULAR: Regular rate and irregular rhythm without murmurs, gallops, or rubs. RESPIRATORY: Clear to auscultation. Breath sounds equal bilaterally. No wheezes , rales, or rhonchi. GASTROINTESTINAL: Abdomen soft, non-tender, nondistended. Normal, active bowel sounds MUSCULOSKELETAL: Extremities without clubbing, cyanosis, or edema. NEURO: Alert & Oriented x4 to person, place, time, situation. Moves all ext x4 Imaging Last Impressions Chest X-Ray 08/27/16 0808 Signed Impressions: Service Date/Time: Saturday, August 27, 2016 08:43 - CONCLUSION: Normal examination. Kentrell Eubanks MD Assessment and Plan Problem List: (1) Atrial fibrillation Assessment and Plan: Not a candidate for anticoagulation due to alcohol abuse, will try to wean off ggt. (2) Alcohol withdrawal (3) Alcohol abuse Assessment and Plan: counseled at length (4) Chest pain Assessment and Plan: essentially constant, non-ischemic nuc stress less than a year ago, negative enzymes, likely non-cardiac. Assessment and Plan Hope he has reasonable rates off ggt and then could d/c. Problem Qualifiers (1) Chest pain: Qualified Code: R07.9 - Chest pain, unspecified type James Odonnell MD Aug 29, 2016 08:30
[2016-08-29] MEDS: CARVEDILOL 6.25 MG TAB PO SCH ×2 (08:33→19:57)
[2016-08-29] MEDS: DILTIAZEM HCL 90 MG TAB PO SCH ×4 (08:33→19:58)
[2016-08-29] MEDS: THIAMINE HCL 100 MG TAB PO SCH (08:33)
[2016-08-29] MEDS: ASPIRIN 81 MG CHEW TAB CHEW SCH (08:33)
[2016-08-29] MEDS: MULTIVITAMIN TAB PO SCH (08:33)
[2016-08-29] MEDS: SODIUM CHLORIDE 0.9% FLUSH 5 ML FLUSH IV FLUSH SCH (08:35)
[2016-08-29 10:47] LABS: ANION GAP 7 MEQ/L (5-15); BICARBONATE 30.9 MEQ/L (21.0-32.0); BLOOD UREA NITROGEN 9 MG/DL (7-18); CHLORIDE 102 MEQ/L (98-107); GLOMERULAR FILTRATION RATE 83 ML/MIN (>89); MAGNESIUM 1.9 MG/DL (1.5-2.5); POTASSIUM 4.4 MEQ/L (3.5-5.1); SODIUM (NA) 140 MEQ/L (136-145)
--- NOTE | 2016-08-29 13:06 | HHI.PR ---
Subjective Remarks Follow-up A. fib and alcohol withdrawal. States he is about the same. Still in A. fib with controlled ventricular response off Cardizem drip was discontinued this morning. He is having tremors states he really wants to quit alcohol. He reports that he was not accepted at [facility] when he showed up after last admission. Discussed with RN Objective Vitals Vital Signs Date Time Temp Pulse Resp B/P Pulse Ox O2 Delivery O2 Flow Rate FiO2 08/29/16 12:32 72 08/29/16 11:30 76 08/29/16 11:30 98.7 76 18 112/63 96 08/29/16 10:43 73 08/29/16 09:59 93 21 08/29/16 09:00 77 08/29/16 08:45 98.9 96 18 130/69 95 08/29/16 08:45 96 08/29/16 06:00 90 08/29/16 05:00 87 08/29/16 04:00 78 08/29/16 04:00 98.0 80 20 139/83 93 08/29/16 03:00 80 08/29/16 02:00 76 08/29/16 01:00 78 08/29/16 00:00 86 08/29/16 00:00 97.8 65 20 132/85 95 08/28/16 23:00 78 08/28/16 22:00 79 08/28/16 21:00 92 08/28/16 20:17 21 08/28/16 20:00 100 08/28/16 20:00 97.5 100 20 122/88 94 08/28/16 18:00 126 08/28/16 17:00 93 08/28/16 16:00 87 08/28/16 15:00 99.1 97 20 131/68 93 08/28/16 15:00 90 08/28/16 14:00 103 I/O 08/28/16 08/28/16 08/28/16 08/29/16 08/29/16 08/29/16 07:00 15:00 23:00 07:00 15:00 23:00 Intake Total 938 ml 1157 ml 570 ml Output Total 300 ml 900 ml 500 ml Balance 638 ml 257 ml 70 ml Intake Oral 300 ml 840 ml 240 ml IV Total 638 ml 317 ml 330 ml Output Urine Total 300 ml 900 ml 500 ml # Bowel Movements 0 Result Diagram: 08/27/16 0841 08/29/16 0813 Objective Remarks GENERAL: Well-developed, well-nourished in no distress SKIN: Warm and dry. HEAD: Atraumatic. Normocephalic. EYES: Pupils equal and round. No scleral icterus. No injection or drainage. ENT: No nasal bleeding or discharge. Mucous membranes pink and moist. NECK: Trachea midline. No JVD. CARDIOVASCULAR: Irregularly irregular RESPIRATORY: No accessory muscle use. Clear to auscultation. Breath sounds equal bilaterally. GASTROINTESTINAL: Abdomen soft, non-tender, nondistended. MUSCULOSKELETAL: Extremities without clubbing, cyanosis, or edema. No obvious deformities. NEUROLOGICAL: Awake and alert. No obvious cranial nerve deficits. Motor grossly within normal limits. Five out of 5 muscle strength in the arms and legs. Normal speech. Positive tremors PSYCHIATRIC: Appropriate mood and affect; insight and judgment normal. Procedures none A/P Problem List: (1) Atrial fibrillation with RVR ICD Code: I48.91 Status: Resolved (2) Anxiety ICD Code: F41.9 Status: Chronic (3) Chest pain ICD Code: R07.9 Status: Resolved Assessment and Plan - atrial fibrillation with rapid rate now with controlled ventricular response started on IV cardizem and heparin drip-then switched to po cardizem and coreg. continue aspirin not a good candidate for outpatient anticoagulation in light of his alcohol dependency and noncompliance cardiology consult appreciated. had an echo in 2015 with EF 40% -chest pain;cardiac enzymes negative-cardiology following. This is noncardiac had a stress test less than a year ago with no ischemia -cardiomyopathy ( recent echo with EF 40%); restart lisinopril since BP stable -alcohol withdrawal; counselled on drinking cessation- started on Ativan as needed/ continue multivitamin and thiamine. [facility] protocol -Hyperglycemia. Check A1c -DVT prophylaxis ; on heparin drip Discharge Planning Possible discharge in 1-2 days Problem Qualifiers (1) Chest pain: Qualified Code: R07.9 - Chest pain, unspecified type Yosi Pinto MD Aug 29, 2016 13:06
[2016-08-29] MEDS ORDERED: ASPI81TA11 PO (13:11)
[2016-08-29] MEDS ORDERED: CARD360C PO (13:11)
[2016-08-29] MEDS ORDERED: CHLO25CA2 PO (13:11)
--- NOTE | 2016-08-29 13:12 | HHI.DCPOC ---
Discharge Care Plan Diagnosis: (1) Alcohol dependence (2) A-fib Your Health Problems Are: Difficulty with ADL Exercise Tolerance Goals to Promote Your Health * To prevent worsening of your condition and complications * To maintain your health at the optimal level Directions to Meet Your Goals Take your medications as prescribed Follow your dietary instruction Follow activity as directed Keep your appointments as scheduled Take your immunizations and boosters as scheduled If your symptoms worsen call your PCP, if no PCP go to Urgent Care Center or Emergency Room Smoking is Dangerous to Your Health. Avoid second hand smoke Call the 24-hour hour crisis hotline for domestic abuse at Yosi Pinto MD Aug 29, 2016 13:12
[2016-08-29] MEDS ORDERED: BISACODYL 10 MG SUPP PR PRN (14:00)
[2016-08-29] MEDS ORDERED: DOCUSATE SODIUM 100 MG CAP PO PRN (14:00)
[2016-08-29] MEDS ORDERED: MAGNESIUM HYDROXIDE SUSP 30 ML CUP PO PRN (14:00)
[2016-08-29] MEDS: LORazepam 1 MG TAB PO PRN (14:18)
[2016-08-29] MEDS: DOCUSATE SODIUM 50 MG/SENNA 8.6 MG TAB PO SCH ×2 (14:18→19:58)
[2016-08-29] MEDS: MORPHINE SULFATE 4 MG/ML INJ IV PUSH PRN ×2 (15:43→19:59)
[2016-08-29 16:17] LABS: HEMOGLOBIN A1a 1.1 %; HEMOGLOBIN A1b 1.3 %; HEMOGLOBIN Ao 85.5 %; HEMOGLOBIN P3 3.6 %
[2016-08-29] MEDS: LORazepam 2 MG TAB PO PRN (19:58)
[2016-08-29] MEDS: ZOLPIDEM TARTRATE 5 MG TAB PO PRN (22:09)
[2016-08-30] VITALS (27 sets, daily range): BP systolic 112–149; BP diastolic 78–121; PULSE 79–129; RESP 16–22; TEMP 97.8–99.3; O2SAT 93–99
[2016-08-30] MEDS: LACTULOSE SYRUP 20 GM/30 ML CUP PO PRN ×2 (00:15→16:25)
[2016-08-30] MEDS: MORPHINE SULFATE 4 MG/ML INJ IV PUSH PRN ×4 (00:16→20:35)
[2016-08-30] MEDS: LORazepam 2 MG/ML VIAL IV PUSH PRN ×5 (01:28→20:34)
[2016-08-30] MEDS: HEPARIN-D5W INJ 250 ML IV SCH (04:57)
[2016-08-30] MEDS: CARVEDILOL 6.25 MG TAB PO SCH ×2 (05:16→20:36)
[2016-08-30 05:31] LABS: HEMATOCRIT 42.6 % (39.0-51.0); MEAN CELL VOLUME 97.3 FL (80.0-100.0); MEAN CORPUSCULAR HEMOGLOBIN 33.8 PG (27.0-34.0); MEAN CORPUSCULAR HGB CONC 34.8 % (32.0-36.0); PLATELET COUNT 132 TH/MM3 (150-450); RED BLOOD COUNT 4.38 MIL/MM3 (4.50-5.90); RED CELL DISTRIBUTION WIDTH 14.5 % (11.6-17.2); REVIEW FLAG FINAL; WHITE BLOOD COUNT 9.8 TH/MM3 (4.0-11.0)
[2016-08-30 05:40] LABS: APTT (PATIENT) 35.7 SEC (24.3-30.1)
[2016-08-30] MEDS: LISINOPRIL 20 MG TAB PO SCH (09:23)
[2016-08-30] MEDS: DILTIAZEM HCL 90 MG TAB PO SCH ×4 (09:23→20:35)
[2016-08-30] MEDS: ASPIRIN 81 MG CHEW TAB CHEW SCH (09:23)
[2016-08-30] MEDS: THIAMINE HCL 100 MG TAB PO SCH (09:23)
[2016-08-30] MEDS: DOCUSATE SODIUM 50 MG/SENNA 8.6 MG TAB PO SCH ×2 (09:24→20:35)
[2016-08-30] MEDS: MULTIVITAMIN TAB PO SCH (09:24)
[2016-08-30] MEDS: SODIUM CHLORIDE 0.9% FLUSH 5 ML FLUSH IV FLUSH SCH ×2 (09:25→20:36)
[2016-08-30] MEDS: LORazepam 2 MG TAB PO PRN ×2 (11:36→22:57)
--- NOTE | 2016-08-30 13:31 | HHI.PR ---
Subjective Remarks Follow-up A. fib. Complaining of diaphoresis and dizziness. Telemetry shows A. fib with intermittent RVR. Discussed with RN, patient has received IV Ativan for withdrawal. Patient states that he will follow-up with [facility] Objective Vitals Vital Signs Date Time Temp Pulse Resp B/P Pulse Ox O2 Delivery O2 Flow Rate FiO2 08/30/16 12:00 110 08/30/16 12:00 97.8 117 18 149/78 94 08/30/16 11:00 115 08/30/16 10:39 93 21 08/30/16 10:00 110 08/30/16 09:36 22 08/30/16 09:00 105 08/30/16 08:00 110 08/30/16 08:00 97.8 112 18 126/78 95 08/30/16 07:00 96 08/30/16 06:00 94 08/30/16 05:00 108 08/30/16 04:00 99.3 111 20 131/91 94 08/30/16 04:00 109 08/30/16 03:00 114 08/30/16 02:00 94 08/30/16 01:00 89 08/30/16 00:00 80 08/30/16 00:00 98.4 79 22 119/86 94 08/29/16 23:00 85 08/29/16 22:00 94 08/29/16 22:00 122/87 08/29/16 21:00 109 08/29/16 20:00 111 08/29/16 20:00 99.0 112 20 145/104 96 08/29/16 19:56 95 Nasal Cannula 08/29/16 18:01 99 08/29/16 17:20 80 08/29/16 16:14 90 08/29/16 15:45 84 08/29/16 15:45 98.7 84 18 136/91 96 08/29/16 14:20 86 I/O 08/29/16 08/29/16 08/29/16 08/30/16 08/30/16 08/30/16 07:00 15:00 23:00 07:00 15:00 23:00 Intake Total 570 ml 735 ml 822 ml Output Total 500 ml 1525 ml 580 ml Balance 70 ml -790 ml 242 ml Intake Oral 240 ml 720 ml 400 ml IV Total 330 ml 15 ml 422 ml Output Urine Total 500 ml 1525 ml 580 ml # Bowel Movements 0 0 Result Diagram: 08/30/16 0455 08/29/16 0813 Objective Remarks GENERAL: Well-developed, well-nourished in no distress SKIN: Warm and dry. HEAD: Atraumatic. Normocephalic. EYES: Pupils equal and round. No scleral icterus. No injection or drainage. ENT: No nasal bleeding or discharge. Mucous membranes pink and moist. NECK: Trachea midline. No JVD. CARDIOVASCULAR: Irregularly irregular RESPIRATORY: No accessory muscle use. Clear to auscultation. Breath sounds equal bilaterally. GASTROINTESTINAL: Abdomen soft, non-tender, nondistended. MUSCULOSKELETAL: Extremities without clubbing, cyanosis, or edema. No obvious deformities. NEUROLOGICAL: Awake and alert. No obvious cranial nerve deficits. Motor grossly within normal limits. Five out of 5 muscle strength in the arms and legs. Normal speech. Positive tremors PSYCHIATRIC: Appropriate mood and affect; insight and judgment normal. Procedures none A/P Problem List: (1) Atrial fibrillation with RVR ICD Code: I48.91 Status: Resolved (2) Anxiety ICD Code: F41.9 Status: Chronic (3) Chest pain ICD Code: R07.9 Status: Resolved Assessment and Plan - atrial fibrillation with rapid rate. Improving still with intermittent RVR secondary to alcohol withdrawal started on IV cardizem and heparin drip-then switched to po cardizem and coreg. continue aspirin not a good candidate for outpatient anticoagulation in light of his alcohol dependency and noncompliance cardiology consult appreciated. had an echo in November 2015 with EF 40% -chest pain;cardiac enzymes negative-cardiology following. This is noncardiac had a stress test less than a year ago with no ischemia -cardiomyopathy ( recent echo with EF 40%); restart lisinopril since BP stable -alcohol withdrawal; counselled on drinking cessation- started on Ativan as needed/ continue multivitamin and thiamine. [facility] protocol -Hyperglycemia. A1c 5.4 -DVT prophylaxis ; subcutaneous heparin Discharge Planning Not stable for discharge patient still symptomatic with dizziness and diaphoresis high likelihood of readmission Problem Qualifiers (1) Chest pain: Qualified Code: R07.9 - Chest pain, unspecified type Yosi Pinto MD Aug 30, 2016 13:31
[2016-08-30] MEDS: HEPARIN SODIUM - SQ 10,000 UNITS/ML VIAL SQ SCH (20:36)
[2016-08-30] MEDS: ZOLPIDEM TARTRATE 5 MG TAB PO PRN (22:58)
[2016-08-31] VITALS (14 sets, daily range): BP systolic 100–161; BP diastolic 77–104; PULSE 81–130; RESP 13–20; TEMP 97.9–98.4; O2SAT 93–98
[2016-08-31] MEDS: LORazepam 2 MG/ML VIAL IV PUSH PRN ×5 (00:50→08:33)
[2016-08-31] MEDS: MORPHINE SULFATE 4 MG/ML INJ IV PUSH PRN ×3 (00:51→09:18)
[2016-08-31] MEDS: LORazepam 2 MG TAB PO PRN (03:45)
[2016-08-31] MEDS: THIAMINE HCL 100 MG TAB PO SCH (08:31)
[2016-08-31] MEDS: MULTIVITAMIN TAB PO SCH (08:31)
[2016-08-31] MEDS: ASPIRIN 81 MG CHEW TAB CHEW SCH (08:31)
[2016-08-31] MEDS: CARVEDILOL 6.25 MG TAB PO SCH (08:31)
[2016-08-31] MEDS: LISINOPRIL 20 MG TAB PO SCH (08:31)
[2016-08-31] MEDS: DILTIAZEM HCL 90 MG TAB PO SCH ×2 (08:32→13:57)
[2016-08-31] MEDS: HEPARIN SODIUM - SQ 10,000 UNITS/ML VIAL SQ SCH (08:32)
[2016-08-31] MEDS: DOCUSATE SODIUM 50 MG/SENNA 8.6 MG TAB PO SCH (08:32)
[2016-08-31] MEDS: SODIUM CHLORIDE 0.9% FLUSH 5 ML FLUSH IV FLUSH SCH (08:36)
--- NOTE | 2016-08-31 12:54 | HHI.DS ---
Discharge Summary Admission Date Aug 27, 2016 at 10:21 Discharge Date: Aug 31, 2016 Admitting Diagnosis A. fib with RVR, chest pain rule out ACS, alcohol dependence (1) Atrial fibrillation with RVR ICD Code: I48.91 Diagnosis: Principal (2) Anxiety ICD Code: F41.9 Diagnosis: Principal (3) Chest pain ICD Code: R07.9 Diagnosis: Principal Procedures none Brief History - From Admission patient is a 61 y/o male with history of hypertension, atrial fibrillation, chronic alcohol abuser, who presented with sob. he says that earlier this morning when he was going to gas station he started to have worsening sob. he also had some midsternal chest pain.his HR was in 140's at the time. he denies any fever, chills or cough. he says that he had some nausea with no emesis or diaphoresis.he drinks a pint of Vodka daily and the last drink was last night. he says that he was on eliquis which he stopped last year because of bruising. CBC/BMP: 08/30/16 0455 08/29/16 0813 Significant Findings Laboratory Tests Test 08/29/16 08/30/16 08:13 04:55 Estimat Glomerular Filtration 83 ML/MIN (>89) Rate Red Blood Count 4.38 MIL/MM3 (4.50-5.90) Platelet Count 132 TH/MM3 (150-450) Activated Partial 35.7 SEC Thromboplast Time (24.3-30.1) Imaging Last Impressions Chest X-Ray 08/27/16 0808 Signed Impressions: Service Date/Time: Saturday, August 27, 2016 08:43 - CONCLUSION: Normal examination. Kentrell Eubanks MD PE at Discharge GENERAL: Well-developed, well-nourished in no distress SKIN: Warm and dry. HEAD: Atraumatic. Normocephalic. EYES: Pupils equal and round. No scleral icterus. No injection or drainage. ENT: No nasal bleeding or discharge. Mucous membranes pink and moist. NECK: Trachea midline. No JVD. CARDIOVASCULAR: Irregularly irregular RESPIRATORY: No accessory muscle use. Clear to auscultation. Breath sounds equal bilaterally. GASTROINTESTINAL: Abdomen soft, non-tender, nondistended. MUSCULOSKELETAL: Extremities without clubbing, cyanosis, or edema. No obvious deformities. NEUROLOGICAL: Awake and alert. No obvious cranial nerve deficits. Motor grossly within normal limits. Five out of 5 muscle strength in the arms and legs. Normal speech. Improved tremors PSYCHIATRIC: Appropriate mood and affect; insight and judgment normal. Hospital Course - atrial fibrillation with rapid rate. Improved with CVR started on IV cardizem and heparin drip-then switched to po cardizem and coreg. continue aspirin not a good candidate for outpatient anticoagulation in light of his alcohol dependency and noncompliance cardiology consult appreciated. had an echo in November 2015 with EF 40% -chest pain;cardiac enzymes negative-cardiology following. This is noncardiac had a stress test less than a year ago with no ischemia -cardiomyopathy ( recent echo with EF 40%); restart lisinopril since BP stable -alcohol withdrawal; counselled on drinking cessation- started on Ativan as needed/ continue multivitamin and thiamine. CIWA protocol. Improved -Hyperglycemia. A1c 5.4 -DVT prophylaxis ; subcutaneous heparin Pt Condition on Discharge: Stable Discharge Disposition: Discharge Home Discharge Time: <= 30 minutes Discharge Instructions DIET: Follow Instructions for: Heart Healthy Diet Activities you can perform: Regular-No Restrictions Activities to Avoid: Driving Follow up Referrals: PCP Follow-up - 1 Week New Medications: Aspirin DR (Aspirin EC) 81 Mg Tabdr 162 MG PO DAILY Prevent Blood Clot #60 Ref 0 TAB Chlordiazepoxide (Chlordiazepoxide) 25 Mg Cap 25 MG PO TID Take 1 pill 3 times a day for 3 days then 1 pill twice a day for 3 days then 1 pill daily for 3 days PRN Anxiety #18 Ref 0 CAP Diltiazem CD 24 HR (Cardizem CD 24 HR) 360 Mg Caper 360 MG PO DAILY Regulate Heart Beat #30 Ref 0 CAP Continued Medications: Lisinopril (Lisinopril) 20 Mg Tab 20 MG PO DAILY #30 Ref 0 TAB Thiamine (Thiamine) 100 Mg Tab 100 MG PO DAILY Nutritional Supplement #30 Ref 0 TAB Discontinued Medications: Amlodipine (Amlodipine) 10 Mg Tab 20 MG PO DAILY Blood Pressure Management #0 Ref 0 TAB Carvedilol (Carvedilol) 6.25 Mg Tab 6.25 MG PO BID #60 Ref 0 TAB Yosi Pinto MD Aug 31, 2016 12:54
--- NOTE | 2016-08-31 12:54 | HHI.PR ---
Subjective Remarks F/u Afib and etoh. Doing better no complaints wants to go home dw RN Objective Vitals Vital Signs Date Time Temp Pulse Resp B/P Pulse Ox O2 Delivery O2 Flow Rate FiO2 08/31/16 11:00 98.1 104 20 131/104 96 08/31/16 11:00 92 08/31/16 10:00 113 08/31/16 09:00 109 08/31/16 08:00 130 08/31/16 07:00 98.4 116 20 161/96 93 08/31/16 07:00 116 08/31/16 06:00 107 08/31/16 05:00 100 08/31/16 04:35 98.2 88 13 100/77 97 08/31/16 04:00 100 08/31/16 03:00 101 08/31/16 02:00 95 08/31/16 01:54 97.9 81 14 117/81 98 08/31/16 01:00 98 08/31/16 00:00 91 08/30/16 23:00 106 08/30/16 22:00 127 08/30/16 21:02 97.9 128 16 148/121 99 08/30/16 21:00 129 08/30/16 20:00 115 08/30/16 19:44 97 08/30/16 19:00 115 08/30/16 18:00 112 08/30/16 17:02 16 08/30/16 17:00 106 08/30/16 16:00 98 08/30/16 16:00 98.1 95 16 112/85 95 08/30/16 15:00 83 08/30/16 14:00 91 08/30/16 13:00 96 I/O 08/30/16 08/30/16 08/30/16 08/31/16 08/31/16 08/31/16 07:00 15:00 23:00 07:00 15:00 23:00 Intake Total 822 ml 620 ml 1100 ml Output Total 580 ml 950 ml 50 ml Balance 242 ml -330 ml 1050 ml Intake Oral 400 ml 620 ml 1100 ml IV Total 422 ml Output Urine Total 580 ml 950 ml 50 ml # Voids 4 # Bowel Movements 0 1 Result Diagram: 08/30/16 0455 08/29/16 0813 Objective Remarks GENERAL: Well-developed, well-nourished in no distress SKIN: Warm and dry. HEAD: Atraumatic. Normocephalic. EYES: Pupils equal and round. No scleral icterus. No injection or drainage. ENT: No nasal bleeding or discharge. Mucous membranes pink and moist. NECK: Trachea midline. No JVD. CARDIOVASCULAR: Irregularly irregular RESPIRATORY: No accessory muscle use. Clear to auscultation. Breath sounds equal bilaterally. GASTROINTESTINAL: Abdomen soft, non-tender, nondistended. MUSCULOSKELETAL: Extremities without clubbing, cyanosis, or edema. No obvious deformities. NEUROLOGICAL: Awake and alert. No obvious cranial nerve deficits. Motor grossly within normal limits. Five out of 5 muscle strength in the arms and legs. Normal speech. Improved tremors PSYCHIATRIC: Appropriate mood and affect; insight and judgment normal. Procedures none A/P Problem List: (1) Atrial fibrillation with RVR ICD Code: I48.91 Status: Resolved (2) Anxiety ICD Code: F41.9 Status: Chronic (3) Chest pain ICD Code: R07.9 Status: Resolved Assessment and Plan - atrial fibrillation with rapid rate. Improved with CVR started on IV cardizem and heparin drip-then switched to po cardizem and coreg. continue aspirin not a good candidate for outpatient anticoagulation in light of his alcohol dependency and noncompliance cardiology consult appreciated. had an echo in November 2015 with EF 40% -chest pain;cardiac enzymes negative-cardiology following. This is noncardiac had a stress test less than a year ago with no ischemia -cardiomyopathy ( recent echo with EF 40%); restart lisinopril since BP stable -alcohol withdrawal; counselled on drinking cessation- started on Ativan as needed/ continue multivitamin and thiamine. [place] protocol. Improved -Hyperglycemia. A1c 5.4 -DVT prophylaxis ; subcutaneous heparin Discharge Planning Stable for discharge Problem Qualifiers (1) Chest pain: Qualified Code: R07.9 - Chest pain, unspecified type Yosi Pinto MD Aug 31, 2016 12:54
== END 2016-08-31 15:15 | disposition home or self-care (01) | DRG 309 ==
LOC: NEPE 08:01 → NEDA 10:21 → HCIN 21:10
PROVIDERS: ADMIT Internal Medicine; ATTEND Internal Medicine
DX: I48.2 Chronic atrial fibrillation (principal); F10.239 Alcohol dependence with withdrawal, unspecified; I42.6 Alcoholic cardiomyopathy; I50.9 Heart failure, unspecified; I10 Essential (primary) hypertension; F41.9 Anxiety disorder, unspecified; I44.7 Left bundle-branch block, unspecified; Z91.19 Patient's noncompliance with other medical treatment and regimen; J44.9 Chronic obstructive pulmonary disease, unspecified; M19.90 Unspecified osteoarthritis, unspecified site; Z72.0 Tobacco use; Z87.442 Personal history of urinary calculi
CPT/HCPCS: 71010; 76937; 80048; 82550; 82552; 82948; 83036; 83735; 84484; 85025; 85027; 85610; 85730; 93005; 96365; 96374; 96375; J1644; J2060; J2270; J2405

== ENCOUNTER 2016-09-05 08:21 | Observation (INO) | payer MEDICAID ==
[2016-09-05] VITALS (11 sets, daily range): BP systolic 128–225; BP diastolic 69–132; PULSE 68–118; RESP 18–24; TEMP 97–98.9; O2SAT 92–98
[~2016-09-05 08:21] MED LIST changes: -AMLO10 PO; +ASPI81TA11 PO; +CARD360C PO; -CARV6.252 PO; -IPRASOL NEB; -LACT PO; -LEVA750T PO
[2016-09-05 08:53] LABS: AUTOMATED NEUTROPHIL # 3.1 TH/MM3 (1.8-7.7); BASOPHIL # 0.1 TH/MM3 (0-0.2); BASOPHIL % 1.1 % (0.0-2.0); EOSINOPHIL # 0.1 TH/MM3 (0-0.4); EOSINOPHIL % 1.1 % (0.0-4.0); HEMATOCRIT 46.3 % (39.0-51.0); HEMO FLAGS DIFF FINAL; LYMPH % 19.7 % (9.0-44.0); MEAN CELL VOLUME 96.4 FL (80.0-100.0); MEAN CORPUSCULAR HEMOGLOBIN 33.1 PG (27.0-34.0); MEAN CORPUSCULAR HGB CONC 34.4 % (32.0-36.0); MONO % 17.8 % (0.0-8.0); NEUT % 60.3 % (16.0-70.0); PLATELET COUNT 222 TH/MM3 (150-450); RED BLOOD COUNT 4.81 MIL/MM3 (4.50-5.90); RED CELL DISTRIBUTION WIDTH 14.3 % (11.6-17.2); WHITE BLOOD COUNT 5.1 TH/MM3 (4.0-11.0)
[2016-09-05 09:15] LABS: ANION GAP 13 MEQ/L (5-15); AST (GOT) 49 U/L (15-37); BICARBONATE 24.8 MEQ/L (21.0-32.0); BLOOD UREA NITROGEN 9 MG/DL (7-18); CHLORIDE 104 MEQ/L (98-107); GLOMERULAR FILTRATION RATE 86 ML/MIN (>89); POTASSIUM 3.7 MEQ/L (3.5-5.1); SODIUM (NA) 142 MEQ/L (136-145)
[2016-09-05 09:18] LABS: ALKALINE PHOSPHATASE 64 U/L (45-117); ALT (GPT) 53 U/L (12-78); TOTAL BILIRUBIN ADULT 0.7 MG/DL (0.2-1.0)
[2016-09-05] MEDS ORDERED: MORPHINE SULFATE 4 MG/ML INJ IV PUSH ONE (09:45)
[2016-09-05] MEDS ORDERED: ASPIRIN 81 MG CHEW TAB PO ONE (09:45)
[2016-09-05] MEDS ORDERED: DILTIAZEM HCL 25 MG/5 ML VIAL IV ONE (09:45)
--- NOTE | 2016-09-05 09:45 | PD ---
HPI Chief Complaint: Syncope/Near-Syncope Time Seen by Provider: 09:27 Travel History International Travel<30 days: No Contact w/Intl Traveler<30days: No Traveled to known affect area: No History of Present Illness HPI 61-year-old male with history of atrial fibrillation, not on anticoagulants because it causes bruising, alcoholism drinking 1 pint of vodka daily, last drink was 9 PM last night, brought in by ambulance for evaluation of chest pain and syncopal episode. The patient was at a gas station when he reports that he passed out. When he awoke he was having substernal chest pain which she describes as crushing. He was administered 162 mg of aspirin by EMS. Chest pain is 8 out of 10, crushing, nonradiating, no modifying factors. He does report some dyspnea at rest. He was recently admitted for a similar presentation, had A. fib with RVR, was evaluated by cardiology and was thought to have nonischemic/noncardiac chest pain as he had an essentially nonischemic stress test about a year ago. PFSH Past Medical History Hx Anticoagulant Therapy: Yes Arthritis: Yes (bursitis tendonitis) Asthma: No Atrial Fibrillation: Yes Autoimmune Disease: No Blood Disorders: No Anxiety: Yes Depression: Yes Heart Rhythm Problems: Yes (LBBB, afib RVR) Cancer: No Cardiovascular Problems: Yes (LBBB,AFIB) High Cholesterol: No Chest Pain: Yes Congestive Heart Failure: Yes COPD: Yes Cerebrovascular Accident: No Diabetes: No Diminished Hearing: No Endocrine: No Gastrointestinal Disorders: No Genitourinary: Yes (not urinating "a lot") Headaches: No Hypertension: Yes Immune Disorder: No Implanted Vascular Access Dvce: No Kidney Stones: Yes Musculoskeletal: Yes (many broken bones in the past) Neurologic: Yes (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) Psychiatric: No Reproductive: No Respiratory: Yes (COPD) Immunizations Current: Yes Migraines: No Seizures: Yes Shingles: Yes Sleep Apnea: No Ulcer: No Past Surgical History Abdominal Surgery: Yes (HERNIA REPAIR) Cardiac Surgery: No Ear Surgery: No Endocrine Surgery: No Eye Surgery: No Genitourinary Surgery: No Gynecologic Surgery: No Neurologic Surgery: No Oral Surgery: No Thoracic Surgery: No Tonsillectomy: Yes Other Surgery: Yes Social History Alcohol Use: Yes (1-2 PINTS DAILY VODKA) Tobacco Use: No (quit 3 months ago) Substance Use: Yes (alcohol) Allergies-Medications (Allergen,Severity, Reaction): Coded Allergies: Keflex (Verified Allergy, Severe, hives, 09/05/16) Penicillin (Verified Allergy, Severe, hives, 09/05/16) Sulfa (Verified Allergy, Severe, hives, 09/05/16) Nitroglycerin (Verified Allergy, Mild, 09/05/16) vomit Reported Meds & Prescriptions Reported Meds & Active Scripts Active Chlordiazepoxide (Chlordiazepoxide HCl) 25 Mg Cap 25 Mg PO TID PRN Take 1 pill 3 times a day for 3 days then 1 pill twice a day for 3 days then 1 pill daily for 3 days Cardizem CD 24 HR (Diltiazem CD 24 HR) 360 Mg Caper 360 Mg PO DAILY Aspirin EC (Aspirin) 81 Mg Tabdr 162 Mg PO DAILY Thiamine (Thiamine HCl) 100 Mg Tab 100 Mg PO DAILY Reported Lisinopril 20 Mg Tab 20 Mg PO DAILY Review of Systems Except as stated in HPI: all other systems reviewed are Neg Physical Exam Narrative GENERAL: Well-developed, well-nourished, comfortable, tremulous, no acute distress. SKIN: Warm and dry. No rash. HEAD: Atraumatic. Normocephalic. EYES: Pupils equal and round. No scleral icterus. No injection or drainage. ENT: Mucous membranes pink and moist. NECK: Trachea midline. No JVD. CARDIOVASCULAR: Tachycardic, rate 110, regular. RESPIRATORY: No accessory muscle use. Clear to auscultation. Breath sounds equal bilaterally. GASTROINTESTINAL: Abdomen soft, non-tender, nondistended. MUSCULOSKELETAL: No obvious deformities. No clubbing. No cyanosis. No edema. NEUROLOGICAL: Awake and alert. No obvious cranial nerve deficits. Motor grossly within normal limits. Normal speech. PSYCHIATRIC: Appropriate mood and affect; insight and judgment normal. Data Data Last Documented VS Vital Signs Date Time Temp Pulse Resp B/P Pulse Ox O2 Delivery O2 Flow Rate FiO2 09/05/16 09:26 118 24 190/126 92 Room Air 09/05/16 08:27 97.0 Orders Electrocardiogram (09/05/16 08:30) Complete Blood Count With Diff (09/05/16 08:30) Comprehensive Metabolic Panel (09/05/16 08:30) Iv Access Insert/Monitor (09/05/16 08:30) Troponin I (09/05/16 09:02) Alcohol (Ethanol) (09/05/16 09:34) Chest, Single Ap (09/05/16 09:35) Aspirin Chew (Aspirin Chew) (09/05/16 09:45) Chlordiazepoxide (Librium) (09/05/16 09:45) Morphine Inj (Morphine Inj) (09/05/16 09:45) Diltiazem Inj (Cardizem Inj) (09/05/16 09:45) B-Type Natriuretic Peptide (09/05/16 09:45) Labs Laboratory Tests Test 09/05/16 08:35 White Blood Count 5.1 TH/MM3 Red Blood Count 4.81 MIL/MM3 Hemoglobin 15.9 GM/DL Hematocrit 46.3 % Mean Corpuscular Volume 96.4 FL Mean Corpuscular Hemoglobin 33.1 PG Mean Corpuscular Hemoglobin 34.4 % Concent Red Cell Distribution Width 14.3 % Platelet Count 222 TH/MM3 Mean Platelet Volume 7.4 FL Neutrophils (%) (Auto) 60.3 % Lymphocytes (%) (Auto) 19.7 % Monocytes (%) (Auto) 17.8 % Eosinophils (%) (Auto) 1.1 % Basophils (%) (Auto) 1.1 % Neutrophils # (Auto) 3.1 TH/MM3 Lymphocytes # (Auto) 1.0 TH/MM3 Monocytes # (Auto) 0.9 TH/MM3 Eosinophils # (Auto) 0.1 TH/MM3 Basophils # (Auto) 0.1 TH/MM3 CBC Comment DIFF FINAL Differential Comment Sodium Level 142 MEQ/L Potassium Level 3.7 MEQ/L Chloride Level 104 MEQ/L Carbon Dioxide Level 24.8 MEQ/L Anion Gap 13 MEQ/L Blood Urea Nitrogen 9 MG/DL Creatinine 0.89 MG/DL Estimat Glomerular Filtration 86 ML/MIN Rate Random Glucose 107 MG/DL Calcium Level 8.3 MG/DL Total Bilirubin 0.7 MG/DL Aspartate Amino Transf 49 U/L (AST/SGOT) Alanine Aminotransferase 53 U/L (ALT/SGPT) Alkaline Phosphatase 64 U/L Troponin I 0.03 NG/ML Total Protein 7.0 GM/DL Albumin 3.6 GM/DL MDM Medical Decision Making Medical Screen Exam Complete: Yes Emergency Medical Condition: Yes Medical Record Reviewed: Yes Interpretation(s) EKG: Sinus tachycardia, rate 107, LBBB which is old Differential Diagnosis Syncope, dysrhythmia, ACS, pneumothorax, pericarditis, PE, pneumonia, alcohol withdrawal Narrative Course Vital signs show heart rate 108, blood pressure 177/132, pulse ox 94% on room air, oral temp of 97F. Patient is tremulous. He has not had any alcoholic drink since 9 PM last night. His tachycardia, tremulousness, hypertension is likely secondary to alcohol withdrawal. He was given Librium. CBC is unremarkable. CMP is unremarkable. Troponin is 0.03. Chest x-ray: CONCLUSION: No acute disease. No significant change has occurred. Patient was given Cardizem with some improvement in heart rate to the mid 90s. Appears to be sinus on the monitor. He is allergic to nitroglycerin. He was given morphine for his chest pain. He was given another 162 mg of aspirin here in the emergency department. Again he is tremulous and is likely withdrawing from alcohol. He'll be admitted for further treatment and evaluation of chest pain, syncope, alcohol withdrawal. Case discussed with medical physics researcher. The patient will be admitted to their service under Dr. Caraballo for overnight observation. Diagnosis Primary Impression: Chest pain Qualified Code: R07.9 - Chest pain, unspecified type Additional Impressions: Syncope Qualified Code: R55 - Syncope, unspecified syncope type Alcohol withdrawal Qualified Code: F10.230 - Alcohol withdrawal, uncomplicated Admitting Information Admitting Physician Requests: Observation Srinath Gallagher MD Sep 05, 2016 09:45
--- NOTE | 2016-09-05 10:03 | RADRPT ---
EXAM DATE/TIME: 09/05/2016 09:53 [facility] COMPARISON: CHEST SINGLE AP, August 03, 2016, 4:11. CHEST SINGLE AP, August 27, 2016, 8:43. INDICATIONS : Chest pain. MEDICAL HISTORY : Congestive heart failure. Chronic obstructive pulmonary disease. Hypertension. A-Fib. SURGICAL HISTORY : Hernia. ENCOUNTER: Initial ACUITY: 1 day PAIN SCORE: 8/10 LOCATION: Bilateral chest FINDINGS: A single view of the chest demonstrates the lungs to be symmetrically aerated without evidence of mas s, infiltrate or effusion. The cardiomediastinal contours are unremarkable. Osseous structures are intact. CONCLUSION: No acute disease. No significant change has occurred. Chidi Ford MD on September 05, 2016 at 10:01 Board Certified Radiologist. This report was verified electronically.
--- NOTE | 2016-09-05 10:26 | HHI.HP ---
[facility] Service Family Medicine Primary Care Physician Jessica Flores MD Admission Diagnosis Diagnoses: International Travel<30 Days: No Contact w/Intl Traveler<30days: No Known Affected Area: No History of Present Illness Patient is a 61-year-old male with a PMH significant for A. fib, HTN, nonischemic cardiomyopathy. Presents here today for chest pain and syncope. Of note patient was recently admitted on 08/27/16 for A. fib with RVR and chest pain. During the hospitalization patient was treated with IV Cardizem and then switched to PO Cardizem and Coreg. Was deemed not to be a good anticoagulation candidate due to his alcohol dependency and noncompliance. ACS evaluation was negative. Chest pain was deemed to be nonischemic and likely noncardiac related. Today patient reports he presented due to the repeat of the same symptoms since last hospitalization. He reports taking this medication but running out. Did not take any medication today. Reports walking in the [employer] parking lot and then passing out. Reports feeling nauseous prior to falling out. Denies bowel/bladder incontinence. Denies hitting his head but does report LOC as he does not remember everything. Prior to fall, denies chest pain but he did wake up with substernal chest pain that was nonradiating. These events occurred at 7:30 this morning. He is endorsing left hand numbness and bilateral feet numbness. Endorses chills but without diaphoresis. Also endorses SOB, palpitations, shakiness. He feels like he is withdrawing from alcohol as he typically drinks 1 pint of vodka daily and will have his first drink around noon. Review of Systems Constitutional: COMPLAINS OF: Chills, DENIES: Dizziness Eyes: COMPLAINS OF: Blurred vision (seeing spots) Respiratory: COMPLAINS OF: Shortness of breath, DENIES: Cough, Sputum production Cardiovascular: COMPLAINS OF: Chest pain, Palpitations, Syncope, Dyspnea on Exertion, DENIES: Lower Extremity Edema Gastrointestinal: COMPLAINS OF: Nausea, DENIES: Abdominal pain, Vomiting Genitourinary: DENIES: Dysuria Integumentary: DENIES: Rash Neurologic: COMPLAINS OF: Headache, Paresthesias, Tremor, DENIES: Seizures Past Family Social History Past Medical History Atrial fibrillation Non ischemic cardiomyopathyEF of 40% Echo November 2015 Hypertension Myocardial perfusion scan 12/04/15: No ischemia seen. EF of 42%. Risk category low. Chronic alcohol abuse Past Surgical History Inguinal hernia surgery Multiple orthopedic surgeries on multiple joints Reported Medications Reported Meds & Active Scripts Active Chlordiazepoxide (Chlordiazepoxide HCl) 25 Mg Cap 25 Mg PO TID PRN Take 1 pill 3 times a day for 3 days then 1 pill twice a day for 3 days then 1 pill daily for 3 days Cardizem CD 24 HR (Diltiazem CD 24 HR) 360 Mg Caper 360 Mg PO DAILY Aspirin EC (Aspirin) 81 Mg Tabdr 162 Mg PO DAILY Thiamine (Thiamine HCl) 100 Mg Tab 100 Mg PO DAILY Reported Lisinopril 20 Mg Tab 20 Mg PO DAILY Allergies: Coded Allergies: Keflex (Verified Allergy, Severe, hives, 09/05/16) Penicillin (Verified Allergy, Severe, hives, 09/05/16) Sulfa (Verified Allergy, Severe, hives, 09/05/16) Nitroglycerin (Verified Allergy, Mild, 09/05/16) vomit Family History Father with pancreatic cancer, age 75 Mother with atrial fibrillation [place] Social History [place] a boat Alcohol: One prior tobacco daily Tobacco: Quit many months ago. Was smoking 1/2ppd Illicit: Denies Physical Exam Vital Signs Vital Signs Date Time Temp Pulse Resp B/P Pulse Ox O2 Delivery O2 Flow Rate FiO2 09/05/16 09:26 118 24 190/126 92 Room Air 09/05/16 09:26 Room Air 09/05/16 08:27 97.0 108 19 177/132 94 Physical Exam GENERAL: This is a well-nourished, well-developed patient. Appears to be withdrawn with significant tremors SKIN: No rashes, ecchymoses or lesions. HEAD: Atraumatic. Normocephalic. No temporal or scalp tenderness. EYES: Pupils equal round and reactive. Extraocular motions intact. No scleral icterus. No injection or drainage. ENT: Nose without bleeding, purulent drainage. Throat without erythema, tonsillar hypertrophy or exudate. Uvula midline. Airway patent. NECK: No lymphadenopathy. Supple, nontender, no meningeal signs. CARDIOVASCULAR: Increased rate but with normal rhythm without murmurs, gallops, rubs. RESPIRATORY: Clear to auscultation. Breath sounds equal bilaterally. No wheezes , rales, or rhonchi. GASTROINTESTINAL: Abdomen soft, non-tender, nondistended. No hepato-splenomegaly , or palpable masses. No guarding. MUSCULOSKELETAL: Extremities without clubbing, cyanosis, or edema. No calf tenderness. NEUROLOGICAL: Awake and alert. Normal speech. Laboratory Laboratory Tests Test 09/05/16 08:35 White Blood Count 5.1 Red Blood Count 4.81 Hemoglobin 15.9 Hematocrit 46.3 Mean Corpuscular Volume 96.4 Mean Corpuscular Hemoglobin 33.1 Mean Corpuscular Hemoglobin 34.4 Concent Red Cell Distribution Width 14.3 Platelet Count 222 Mean Platelet Volume 7.4 Neutrophils (%) (Auto) 60.3 Lymphocytes (%) (Auto) 19.7 Monocytes (%) (Auto) 17.8 Eosinophils (%) (Auto) 1.1 Basophils (%) (Auto) 1.1 Neutrophils # (Auto) 3.1 Lymphocytes # (Auto) 1.0 Monocytes # (Auto) 0.9 Eosinophils # (Auto) 0.1 Basophils # (Auto) 0.1 CBC Comment DIFF FINAL Differential Comment Sodium Level 142 Potassium Level 3.7 Chloride Level 104 Carbon Dioxide Level 24.8 Anion Gap 13 Blood Urea Nitrogen 9 Creatinine 0.89 Estimat Glomerular Filtration 86 Rate Random Glucose 107 Calcium Level 8.3 Total Bilirubin 0.7 Aspartate Amino Transf 49 (AST/SGOT) Alanine Aminotransferase 53 (ALT/SGPT) Alkaline Phosphatase 64 Troponin I 0.03 Total Protein 7.0 Albumin 3.6 Result Diagram: 09/05/16 0835 09/05/16 0835 Imaging Last Impressions Chest X-Ray 09/05/16 0935 Signed Impressions: Service Date/Time: Monday, September 05, 2016 09:53 - CONCLUSION: No acute disease. No significant change has occurred. Chidi Ford MD Assessment and Plan Assessment and Plan 61-year-old male with a PMH significant for A. fib, HTN, nonischemic cardiomyopathy. Admitted for A. fib with chest pain and alcohol withdrawal. Code Status Full Discussed Condition With Dr. Whalen Problem List: (1) Atrial fibrillation Status: Chronic Plan: History of A. fib with RVR but rhythm is currently sinus on admission. Rate is increased to the 110s. Associated with chest pain that is substernal and nonradiating. Patient was recently admitted on 08/27 for similar symptoms which was found to be noncardiac in nature. Last stress test was 11/2015 which was nonischemic and in low risk category. EF on 11/2015 shows 40%. Received diltiazem IV 1 in the ED. -Neurologically intact: Head CT not needed -ACS evaluation * EKG shows sinus rhythm with old left bundle branch block, troponin unremarkable -BNP unremarkable -Monitor I&O Medications: * Aspirin 162 mg daily * Cardizem 360 mg * Lisinopril 10 mg daily (2) Alcohol dependence Status: Chronic Plan: Suspect hypertension and tachycardia or exacerbated by alcohol withdrawal -CIWA protocol (3) Chest pain Status: Resolved Plan: See plan below A. fib (4) Syncope Status: Acute Plan: Reports syncope without bowel/bladder incontinence. This has occurred twice within one month. Most recent episode was associated with nausea prior to syncope. Patient is at high risk for arrhythmias due to his history of alcohol use and A. fib. -Orthostatic vital signs -Cardiac telemetry -Limited repeat echo -Would benefit from Holter monitor as an outpatient (5) Nutrition, metabolism, and development symptoms Status: Acute Plan: Diet: Clear liquids until patient's withdrawal symptoms improve Electrolytes: Unremarkable Fluids: None DVT prophylaxis: Lovenox GI prophylaxis: None indicated Problem Qualifiers (1) Chest pain: Qualified Code: R07.9 - Chest pain, unspecified type (2) Syncope: Qualified Code: R55 - Syncope, unspecified syncope type Vidya Perez MD R2 Sep 05, 2016 10:26
[2016-09-05] MEDS ORDERED: LORazepam 2 MG/ML VIAL IV PUSH PRN ×3 (11:00)
[2016-09-05] MEDS ORDERED: FLUMAZENIL 0.5 MG/5 ML VIAL IV PUSH PRN (11:00)
[2016-09-05] MEDS ORDERED: LORazepam 1 MG TAB PO PRN (11:00)
[2016-09-05] MEDS ORDERED: ONDANSETRON HCL 4 MG/2 ML VIAL IVP PRN (11:00)
[2016-09-05] MEDS ORDERED: ENALAPRILAT 1.25 MG/ML VIAL IV PRN (11:00)
[2016-09-05] MEDS ORDERED: CARVEDILOL 6.25 MG TAB PO ONE (11:00)
[2016-09-05] MEDS ORDERED: SODIUM CHLORIDE 0.9% FLUSH 5 ML FLUSH FLUSH PRN (11:00)
[2016-09-05] MEDS ORDERED: NALOXONE HCL 0.4 MG/ML AMP IV PRN ×2 (11:00→11:30)
[2016-09-05] MEDS: DILTIAZEM-CD 180 MG CAP ER PO SCH (11:07)
[2016-09-05] MEDS: ENOXAPARIN SODIUM 40 MG/0.4 ML SYRINGE SQ SCH (11:07)
[2016-09-05] MEDS: LORazepam 2 MG/ML VIAL IV PUSH PRN ×2 (11:08→20:00)
[2016-09-05] MEDS ORDERED: AMLO10TA2 PO (11:16)
[2016-09-05] MEDS ORDERED: ACETAMINOPHEN/HYDROcodone 325 MG/5 MG TAB PO PRN (11:30)
[2016-09-05] MEDS ORDERED: ACETAMINOPHEN 325 MG TAB PO PRN (11:30)
[2016-09-05] MEDS ORDERED: ACETAMINOPHEN/HYDROcodone 325 MG/10 MG TAB PO PRN (11:30)
[2016-09-05] MEDS: MORPHINE SULFATE 4 MG/ML INJ IV PRN ×3 (11:53→21:15)
[2016-09-05 14:49] LABS: PROTHROMBIN TIME - PATIENT 11.5 SEC (9.8-11.6)
--- NOTE | 2016-09-05 15:19 | HHI.FPPN ---
Subjective Remarks Attending note: Patient seen and examined. Pleasant 61-year-old gentleman who is brought to the emergency room by [facility] this morning after experiencing a syncopal episode approximately 7 AM while walking into a local grocery store. Patient states this is the third similar episode. Patient has a significant history of the disease of alcoholism and drinks what he describes as 1 pint of vodka per day. He states his last drink was the evening of 09/04/16. Patient did recall some nausea, does not otherwise recall any associated symptoms until he was awake and "walled to a bench ". Then called 911. Because having felt a heavy pounding in his chest associated with "crushing chest pain ". [facility] arrived, patient states she cannot take nitroglycerin because it gives him a rash, he did receive some analgesic in the emergency room and reported pain relief. There was some associated shortness of breath. Records are reviewed documenting previous cardiomyopathy scribed to chronic alcoholism, cardiomyopathy not thought to be ischemic. Patient also has history of hypertension. 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 Please refer to resident history and physical for complete discussion a past medical history, family history, social history and review of systems. Objective Vitals Vital Signs Date Time Temp Pulse Resp B/P Pulse Ox O2 Delivery O2 Flow Rate FiO2 09/05/16 12:40 96 18 129/77 97 Nasal Cannula 2 09/05/16 11:58 17 09/05/16 11:51 102 18 128/69 95 Nasal Cannula 3 09/05/16 11:00 98.0 108 18 225/120 95 Nasal Cannula 3 09/05/16 10:00 109 22 207/104 96 Nasal Cannula 2 09/05/16 09:26 118 24 190/126 92 Room Air 09/05/16 09:26 Room Air 09/05/16 08:27 97.0 108 19 177/132 94 I/O 09/04/16 09/04/16 09/04/16 09/05/16 09/05/16 09/05/16 07:00 15:00 23:00 07:00 15:00 23:00 Intake Total 300 ml Balance 300 ml Intake Oral 300 ml # Bowel Movements 0 Result Diagram: 09/05/16 0835 09/05/16 0835 Objective Remarks Vital signs noted. On 2 L of nasal cannula O2 the patient's saturation is 97%. Gen. appearance: Plethoric appearing facies and arms. Slightly tremulous in the hands. HEENT: Decreased dentition, no localized lesions. No scleral icterus, pupils weaker round reactive EOMs intact. Neck: No bruits. Increased adiposity. Cardiovascular: Distant sounds, S1-S2, no made of a tachycardia and there is an irregularity to the rhythm. Lungs: Diminished clear breath sounds to auscultation. No localized rales. Abdomen: Protuberant, soft and benign otherwise, no tenderness, no organomegaly or masses appreciated. No ankle edema, feet are warm and dry, sun related skin changes. Neurologic: Tremulousness to the hands on outstretched arms. Patient is alert and oriented him to provide a chronologic history. A/P Assessment and Plan Clinical assessment patient seen and examined. Case to be reviewed with the resident team. Agree with plan of care as discussed with me and documented in the resident note. 61-year-old gentleman with a history of the disease of alcoholism admitted after what he reports is his third complaint episode. 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 Medical treatment has been recommended by previous cardiology consultations, patient has not been judged to be a safe candidate for chronic anticoagulation. Follow clinically. Review records. Problem List: (1) Atrial fibrillation Status: Chronic Plan: History of A. fib with RVR but rhythm is currently sinus on admission. Rate is increased to the 110s. Associated with chest pain that is substernal and nonradiating. Patient was recently admitted on 08/27 for similar symptoms which was found to be noncardiac in nature. Last stress test was 11/2015 which was nonischemic and in low risk category. EF on 11/2015 shows 40%. Received diltiazem IV 1 in the ED. -Neurologically intact: Head CT not needed -ACS evaluation * EKG shows sinus rhythm with old left bundle branch block, troponin unremarkable -BNP unremarkable -Monitor I&O Medications: * Aspirin 162 mg daily * Cardizem 360 mg * Lisinopril 10 mg daily (2) Alcohol dependence Status: Chronic Plan: Suspect hypertension and tachycardia or exacerbated by alcohol withdrawal -CIWA protocol (3) Chest pain Status: Resolved Plan: See plan below A. fib (4) Syncope Status: Acute Plan: Reports syncope without bowel/bladder incontinence. This has occurred twice within one month. Most recent episode was associated with nausea prior to syncope. Patient is at high risk for arrhythmias due to his history of alcohol use and A. fib. -Orthostatic vital signs -Cardiac telemetry -Limited repeat echo -Would benefit from Holter monitor as an outpatient (5) Nutrition, metabolism, and development symptoms Status: Acute Plan: Diet: Clear liquids until patient's withdrawal symptoms improve Electrolytes: Unremarkable Fluids: None DVT prophylaxis: Lovenox GI prophylaxis: None indicated Problem Qualifiers (1) Chest pain: Qualified Code: R07.9 - Chest pain, unspecified type (2) Syncope: Qualified Code: R55 - Syncope, unspecified syncope type Padilla Caraballo MD Sep 05, 2016 15:19
--- NOTE | 2016-09-05 15:53 | ECHLIM ---
Study Study Date:09/05/2016 STUDY CONCLUSIONS SUMMARY - Left ventricle: The cavity size was normal. Wall thickness was normal. Systolic function was normal. The estimated ejection fraction was in the range of 50% to 55%. Wall motion was normal; there were no regional wall motion abnormalities. - Pulmonary arteries: PA peak pressure: 47mm Hg (S). If LV function is below 40, please consider prescribing an ACEI or ARB or document rationale for non-use. PROCEDURE DATA STUDY STATUS: Elective. Procedure: Transthoracic echocardiography. Image quality was fair. Scanning was performed from the parasternal, apical, and subcostal acoustic windows. Study completion: The patient tolerated the procedure well. Transthoracic echocardiography. M-mode, complete 2D, complete spectral Doppler, and color Doppler. Patient status: Inpatient. CARDIAC ANATOMY LEFT VENTRICLE: The cavity size was normal. Wall thickness was normal. Systolic function was normal. The estimated ejection fraction was in the range of 50% to 55%. Wall motion was normal; there were no regional wall motion abnormalities. AORTIC VALVE: Trileaflet; normal thickness leaflets. Doppler: Transvalvular velocity was within the normal range. There was no stenosis. No regurgitation. AORTA: Aortic root: The aortic root was normal in size. MITRAL VALVE: Structurally normal valve. Doppler: Transvalvular velocity was within the normal range. There was no evidence for stenosis. Trace to mild regurgitation. LEFT ATRIUM: The atrium was normal in size. RIGHT VENTRICLE: The cavity size was normal. Wall thickness was normal. PULMONIC VALVE: Doppler: Transvalvular velocity was within the normal range. There was no evidence for stenosis. No regurgitation. TRICUSPID VALVE: Structurally normal valve. Doppler: Transvalvular velocity was within the normal range. Trace to mild regurgitation. PULMONARY ARTERY: The main pulmonary artery was normal-sized. Systolic pressure was within the normal range. RIGHT ATRIUM: The atrium was normal in size. PERICARDIUM: There was no pericardial effusion. SYSTEMIC VEINS: Inferior vena cava: The vessel was normal in size. BASIC MEASUREMENTS ADULT Normal Left ventricle LV internal dimension, ED, chordal level, 49.1 mm 43-52 PLAX LV internal dimension, ES, chordal level, *40.2 mm 23-38 PLAX Fractional shortening, chordal level, PLAX *18 % >29 LV posterior wall thickness, ED 8.03 mm IVS/LVPW ratio, ED 1.24 <1.3 Ventricular septum Septal thickness, ED 9.95 mm Left atrium Anterior-posterior dimension 33 mm DOPPLER MEASUREMENTS ADULT Normal Main pulmonary artery Pressure, S *47 mm Hg =30 Tricuspid valve Regurgitant peak velocity 305 cm/s Peak RV-RA gradient, S 37 mm Hg Maximal regurgitant velocity 305 cm/s Systemic veins Estimated CVP 10 mm Hg Right ventricle RV pressure, S *47 mm Hg <30 LEGEND: Mean values are shown as u=mean value. Asterisk (*) oh values outside specified normal range. Prepared and signed by Natalia Sampson [id number]
--- NOTE | 2016-09-05 16:49 | EKG ---
Date Performed: 09/05/2016 Time Performed: 08:43:50 PTAGE: 61 years EKG: SINUS TACHYCARDIA POSSIBLE LEFT ATRIAL ENLARGEMENT LEFT BUNDLE BRANCH BLOCK When compared t o previous tracing, the patient is now in a sinus Tachycardia. ABNORMAL ECG PREVIOUS TRACING : 08/27/2016 08.08 DOCTOR: Natalia Sampson Interpretating Date/Time 09/05/2016 16:47:55
--- NOTE | 2016-09-05 19:22 | EKG ---
Date Performed: 09/05/2016 Time Performed: 14:25:52 PTAGE: 61 years EKG: Sinus rhythm Nonspecific ST-T wave changes ABNORMAL ECG COMPARED TO PRIOR ELECTROCARDIOGRAM, LEFT bundle branch b lock is no longer present. PREVIOUS TRACING : 09/05/2016 08.43 DOCTOR: Bill Senior Interpretating Date/Time 09/05/2016 19:20:50
[2016-09-05] MEDS: SODIUM CHLORIDE 0.9% FLUSH 5 ML FLUSH FLUSH SCH (19:59)
[2016-09-05] MEDS: CARVEDILOL 6.25 MG TAB PO SCH (20:00)
[2016-09-05 21:43] LABS: MAGNESIUM 1.5 MG/DL (1.5-2.5)
[2016-09-05] MEDS: LORazepam 2 MG TAB PO PRN (22:41)
[2016-09-06] VITALS: BP 168/87; PULSE 67; RESP 21; TEMP 98; O2SAT 97
[2016-09-06 00:05] VITALS: BP 171/91; PULSE 88; RESP 18; TEMP 97.8; O2SAT 97
[2016-09-06] MEDS: LORazepam 2 MG/ML VIAL IV PUSH PRN ×2 (01:45→11:29)
[2016-09-06] MEDS: MORPHINE SULFATE 4 MG/ML INJ IV PRN ×2 (03:14→08:21)
[2016-09-06 04:58] VITALS: BP 141/78; PULSE 72; RESP 21; TEMP 98.6; O2SAT 98
[2016-09-06] MEDS: LORazepam 2 MG TAB PO PRN ×2 (05:22→14:36)
[2016-09-06 06:06] LABS: AUTOMATED NEUTROPHIL # 3.2 TH/MM3 (1.8-7.7); BASOPHIL # 0.1 TH/MM3 (0-0.2); BASOPHIL % 1.1 % (0.0-2.0); EOSINOPHIL # 0.2 TH/MM3 (0-0.4); EOSINOPHIL % 2.8 % (0.0-4.0); HEMATOCRIT 42.3 % (39.0-51.0); HEMO FLAGS DIFF FINAL; LYMPH % 23.1 % (9.0-44.0); LYMPHOCYTE # 1.3 TH/MM3 (1.0-4.8); MEAN CELL VOLUME 96.7 FL (80.0-100.0); MEAN CORPUSCULAR HEMOGLOBIN 32.8 PG (27.0-34.0); MEAN CORPUSCULAR HGB CONC 33.9 % (32.0-36.0); MONO % 18.7 % (0.0-8.0); NEUT % 54.3 % (16.0-70.0); PLATELET COUNT 206 TH/MM3 (150-450); RED BLOOD COUNT 4.37 MIL/MM3 (4.50-5.90); RED CELL DISTRIBUTION WIDTH 14.4 % (11.6-17.2); WHITE BLOOD COUNT 5.8 TH/MM3 (4.0-11.0)
[2016-09-06 06:30] LABS: ANION GAP 10 MEQ/L (5-15); BICARBONATE 27.3 MEQ/L (21.0-32.0); BLOOD UREA NITROGEN 7 MG/DL (7-18); CHLORIDE 101 MEQ/L (98-107); GLOMERULAR FILTRATION RATE 98 ML/MIN (>89); POTASSIUM 3.4 MEQ/L (3.5-5.1); SODIUM (NA) 138 MEQ/L (136-145)
[2016-09-06 06:33] LABS: ALKALINE PHOSPHATASE 51 U/L (45-117); ALT (GPT) 37 U/L (12-78); AST (GOT) 31 U/L (15-37); TOTAL BILIRUBIN ADULT 1.1 MG/DL (0.2-1.0)
[2016-09-06] MEDS ORDERED: POTASSIUM CHLORIDE 10 MEQ CONTROLLED RELEASE TAB PO ONE (07:00)
[2016-09-06 08:13] VITALS: BP 169/98; PULSE 74; RESP 18; TEMP 98.3; O2SAT 92
[2016-09-06] MEDS: DILTIAZEM-CD 180 MG CAP ER PO SCH (08:18)
[2016-09-06] MEDS: CARVEDILOL 6.25 MG TAB PO SCH (08:19)
[2016-09-06] MEDS: SODIUM CHLORIDE 0.9% FLUSH 5 ML FLUSH FLUSH SCH (08:20)
[2016-09-06 08:26] VITALS: RESP 18
--- NOTE | 2016-09-06 08:47 | EKG ---
Date Performed: 09/05/2016 Time Performed: 23:29:57 PTAGE: 61 years EKG: Sinus rhythm Nonspecific ST-T wave changes ABNORMAL ECG NO SIGNIFICANT CHANGE FROM PRIOR ELECTROCARDIOGRAM. PREVIOUS TRACING : 09/05/2016 14.25 DOCTOR: Bill Senior Interpretating Date/Time 09/06/2016 08:46:48
[2016-09-06] MEDS ORDERED: MULTIVITAMINS/MINERALS THERAPEUTIC TAB PO SCH (09:00)
[2016-09-06] MEDS ORDERED: LISINOPRIL 20 MG TAB PO SCH (09:00)
[2016-09-06] MEDS ORDERED: ASPIRIN EC 81 MG TABEC PO SCH (09:00)
[2016-09-06] MEDS ORDERED: THIAMINE HCL 100 MG TAB PO SCH (09:00)
[2016-09-06] MEDS ORDERED: DILTIAZEM-CD 180 MG CAP ER PO SCH (09:00)
[2016-09-06] MEDS ORDERED: FOLIC ACID 1 MG TAB PO SCH (09:00)
[2016-09-06] MEDS: ENOXAPARIN SODIUM 40 MG/0.4 ML SYRINGE SQ SCH (11:29)
[2016-09-06 11:57] VITALS: BP 119/87; PULSE 68; TEMP 98.3; O2SAT 93
[2016-09-06] MEDS ORDERED: CHLO25CA2 PO (12:25)
[2016-09-06] MEDS ORDERED: CARV6.25 PO ×2 (13:51→15:04)
--- NOTE | 2016-09-06 13:53 | HHI.DCPOC ---
Discharge Care Plan Diagnosis: (1) Alcohol dependence (2) Chest pain (3) Atrial fibrillation (4) Hypertension Goals to Promote Your Health * To prevent worsening of your condition and complications * To maintain your health at the optimal level Directions to Meet Your Goals Take your medications as prescribed Follow your dietary instruction Follow activity as directed Keep your appointments as scheduled Take your immunizations and boosters as scheduled If your symptoms worsen call your PCP, if no PCP go to Urgent Care Center or Emergency Room Smoking is Dangerous to Your Health. Avoid second hand smoke Call the 24-hour hour crisis hotline for domestic abuse at Christiano Whalen MD R1 Sep 06, 2016 13:53
[2016-09-06] MEDS ORDERED: DILT90TA PO (15:04)
--- NOTE | 2016-09-06 15:14 | HHI.FPPN ---
Subjective Remarks No acute events overnight. VS show an improved rate and BP. Patient reports that he continues to have this pressure like substernal chest pain but states that this pain is always present and that he can deal with it. He also endorses that he is willing to quit drinking alcohol and would like Librium, however he is only willing to quit drinking alcohol if he gets to bed discharged on Sunday and not today. He does report that his tremors are improving. Objective Vitals Vital Signs Date Time Temp Pulse Resp B/P Pulse Ox O2 Delivery O2 Flow Rate FiO2 09/06/16 11:57 98.3 68 119/87 93 09/06/16 08:26 18 09/06/16 08:13 98.3 74 18 169/98 92 09/06/16 04:58 98.6 72 21 141/78 98 09/06/16 00:05 97.8 88 18 171/91 97 09/06/16 00:00 98.0 67 21 168/87 97 09/05/16 23:32 97.7 68 18 170/93 97 09/05/16 22:27 74 09/05/16 20:54 98.9 79 18 180/95 98 09/05/16 18:00 157/92 09/05/16 16:26 18 09/05/16 16:06 90 19 182/108 94 I/O 09/05/16 09/05/16 09/05/16 09/06/16 09/06/16 09/06/16 07:00 15:00 23:00 07:00 15:00 23:00 Intake Total 300 ml Output Total 400 ml Balance 300 ml -400 ml Intake Oral 300 ml Output Urine Total 400 ml # Bowel Movements 0 Result Diagram: 09/06/16 0535 09/06/16 0535 Objective Remarks GEN: Well-developed, well-nourished patient. No acute distress. Laying in bed. Improve shakiness. CV: Regular rate and rhythm without obvious murmurs LUNGS: Clear to auscultation bilaterally. Normal respiratory effort. No wheezes , rales, rhonchi. EXT: No edema. No calf tenderness. NEURO/PSYCH: Awake, alert. Appropriate insight and judgment. Normal speech A/P Assessment and Plan 61-year-old male with a PMH significant for A. fib, HTN, nonischemic cardiomyopathy. Admitted for A. fib with chest pain and alcohol withdrawal. Discharge Planning Today. Since patient has insurance he is not eligible for patient assistance. However discharge medications were converted to dosages that are covered on the [employer] $[address] Caraballo and Dr. Whalen Problem List: (1) Atrial fibrillation Status: Chronic Plan: History of A. fib with RVR but rhythm is currently sinus on admission. Rate improved with resumption of home medications. Continues to have substernal chest pain the patient states this is tolerable and is ACS evaluation was negative. Last stress test was 11/2015 which was nonischemic and in low risk category. in the ED. -Neurologically intact: Head CT not needed -ACS evaluation negative -BNP unremarkable -Repeat echo showed an improved EF of 50-55%. -Extensively counseled patient about the importance of discontinuing alcohol use. However patient blamed his continued alcohol use on us since we are not discharging him on the day he prefers. Medications: * Aspirin 162 mg daily * Cardizem 360 mg * Lisinopril 10 mg daily (2) Alcohol dependence Status: Chronic Plan: Suspect hypertension and tachycardia are exacerbated by alcohol withdrawal -CIWA protocol (3) Chest pain Status: Resolved Plan: See plan below A. fib (4) Syncope Status: Acute Plan: Reports syncope without bowel/bladder incontinence. This has occurred twice within one month. Most recent episode was associated with nausea prior to syncope. Patient is at high risk for arrhythmias due to his history of alcohol use and A. fib. -Orthostatic vital signs were not obtained the patient has remained asymptomatic. -Would benefit from Holter monitor as an outpatient (5) Nutrition, metabolism, and development symptoms Status: Acute Plan: Diet: Heart healthy Electrolytes: Mild hypokalemia, repleted with 40 KCl Fluids: None DVT prophylaxis: Lovenox GI prophylaxis: None indicated Problem Qualifiers (1) Chest pain: Qualified Code: R07.9 - Chest pain, unspecified type (2) Syncope: Qualified Code: R55 - Syncope, unspecified syncope type Vidya Perez MD R2 Sep 06, 2016 15:14
== END 2016-09-06 17:36 | disposition home or self-care (01) ==
LOC: NEPE 08:21 → NEDA 10:20 → NEPHCDU 16:43
PROVIDERS: ADMIT Family Medicine; ATTEND Family Medicine
DX: R55 Syncope and collapse (principal); F10.230 Alcohol dependence with withdrawal, uncomplicated; I11.0 Hypertensive heart disease with heart failure; I50.9 Heart failure, unspecified; I48.91 Unspecified atrial fibrillation; I44.7 Left bundle-branch block, unspecified; J44.9 Chronic obstructive pulmonary disease, unspecified; R00.0 Tachycardia, unspecified; R20.0 Anesthesia of skin; R68.83 Chills (without fever); I42.9 Cardiomyopathy, unspecified; Z87.891 Personal history of nicotine dependence; Z91.19 Patient's noncompliance with other medical treatment and regimen
CPT/HCPCS: 71010; 80053; 80320; 82550; 83735; 83880; 84100; 84484; 85025; 85610; 93005; 93308; 96374; 96375; 99285; G0378; J1650; J2060; J2270

== ENCOUNTER 2016-09-14 08:15 | Inpatient (IN) | payer MEDICAID ==
[~2016-09-14] VITALS: Ht 188 cm; Wt 101.5 kg
[2016-09-14] VITALS (14 sets, daily range): BP systolic 125–204; BP diastolic 82–119; PULSE 80–109; RESP 17–22; TEMP 97.9–98.3; O2SAT 93–100
[~2016-09-14 08:15] MED LIST changes: +AMLO10TA2 PO; -CARD360C PO; +CARV6.25 PO; +DILT90TA PO
[2016-09-14] MEDS ORDERED: LORazepam 2 MG/ML VIAL IV PUSH ONE ×2 (08:30)
[2016-09-14] MEDS ORDERED: SODIUM CHLORIDE 0.9% FLUSH 5 ML FLUSH IVF PRN (08:30)
--- NOTE | 2016-09-14 08:48 | RADRPT ---
EXAM DATE/TIME: 09/14/2016 08:33 [facility] COMPARISON: CHEST SINGLE AP, September 05, 2016, 9:53. INDICATIONS : Chest pain. MEDICAL HISTORY : Congestive heart failure. Chronic obstructive pulmonary disease. SURGICAL HISTORY : None. ENCOUNTER: Initial ACUITY: 1 day PAIN SCORE: 5/10 LOCATION: Left upper chest FINDINGS: A single view of the chest demonstrates the lungs to be symmetrically aerated without evidence of mas s, infiltrate or effusion. The cardiomediastinal contours are unremarkable. Osseous structures are intact. Slight sclerosis of the left anterior fourth rib could be a healing rib fracture. CONCLUSION: No acute disease. Slight sclerosis of the anterior left fourth rib could be healing rib fracture in t he right clinical setting. Kevin Polanco MD on September 14, 2016 at 8:44 Board Certified Radiologist. This report was verified electronically.
[2016-09-14 08:50] LABS: AUTOMATED NEUTROPHIL # 3.1 TH/MM3 (1.8-7.7); BASOPHIL # 0.1 TH/MM3 (0-0.2); BASOPHIL % 1.1 % (0.0-2.0); EOSINOPHIL # 0.1 TH/MM3 (0-0.4); EOSINOPHIL % 1.1 % (0.0-4.0); HEMATOCRIT 42.8 % (39.0-51.0); HEMO FLAGS DIFF FINAL; LYMPH % 20.6 % (9.0-44.0); MEAN CELL VOLUME 97.5 FL (80.0-100.0); MEAN CORPUSCULAR HEMOGLOBIN 33.4 PG (27.0-34.0); MEAN CORPUSCULAR HGB CONC 34.3 % (32.0-36.0); MONO % 14.3 % (0.0-8.0); NEUT % 62.9 % (16.0-70.0); PLATELET COUNT 172 TH/MM3 (150-450); RED BLOOD COUNT 4.39 MIL/MM3 (4.50-5.90); RED CELL DISTRIBUTION WIDTH 14.4 % (11.6-17.2)
[2016-09-14] MEDS ORDERED: chlordiazePOXIDE 25 MG CAP PO ONE (09:15)
--- NOTE | 2016-09-14 09:24 | PD ---
HPI Chief Complaint: Syncope/Near-Syncope Time Seen by Provider: 08:18 Travel History International Travel<30 days: No Contact w/Intl Traveler<30days: No Traveled to known affect area: No History of Present Illness HPI This is a 61-year-old male who has a history of alcoholism who presents to the emergency department with chest pain, saying his left hip gave out this morning , and he nearly passed out. He says his chest pain is in the center of his chest. Is similar to chest pain he has had in the past. His pain constant for the past 2 days. He said he last drank last evening and he does feel like he is in early alcohol withdrawal. He also feels somewhat short of breath. PFSH Past Medical History Hx Anticoagulant Therapy: Yes Arthritis: Yes (bursitis tendonitis) Asthma: No Atrial Fibrillation: Yes Autoimmune Disease: No Blood Disorders: No Anxiety: Yes Depression: Yes Heart Rhythm Problems: Yes (LBBB, afib RVR) Cancer: No Cardiovascular Problems: Yes (LBBB,AFIB) High Cholesterol: No Chest Pain: Yes Congestive Heart Failure: Yes COPD: Yes Cerebrovascular Accident: No Diabetes: No Diminished Hearing: No Endocrine: No Gastrointestinal Disorders: No Genitourinary: Yes (not urinating "a lot") Headaches: No Hypertension: Yes Immune Disorder: No Implanted Vascular Access Dvce: No Kidney Stones: Yes Musculoskeletal: Yes (many broken bones in the past) Neurologic: Yes (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) Psychiatric: No Reproductive: No Respiratory: Yes (COPD) Immunizations Current: Yes Migraines: No Seizures: Yes Shingles: Yes Sleep Apnea: No Ulcer: No Past Surgical History Abdominal Surgery: Yes (HERNIA REPAIR) Cardiac Surgery: No Ear Surgery: No Endocrine Surgery: No Eye Surgery: No Genitourinary Surgery: No Gynecologic Surgery: No Neurologic Surgery: No Oral Surgery: No Thoracic Surgery: No Tonsillectomy: Yes Other Surgery: Yes Social History Alcohol Use: Yes (1-2 PINTS DAILY VODKA) Tobacco Use: No (quit 3 months ago) Substance Use: Yes (alcohol) Allergies-Medications (Allergen,Severity, Reaction): Coded Allergies: Keflex (Verified Allergy, Severe, hives, 09/14/16) Penicillin (Verified Allergy, Severe, hives, 09/14/16) Sulfa (Verified Allergy, Severe, hives, 09/14/16) Nitroglycerin (Verified Allergy, Mild, 09/14/16) vomit Reported Meds & Prescriptions Reported Meds & Active Scripts Active Diltiazem (Diltiazem HCl) 90 Mg Tab 90 Mg PO QID Coreg (Carvedilol) 6.25 Mg Tab 6.25 Mg PO Q12HR Chlordiazepoxide (Chlordiazepoxide HCl) 25 Mg Cap 25 Mg PO TID PRN Aspirin EC (Aspirin) 81 Mg Tabdr 162 Mg PO DAILY Thiamine (Thiamine HCl) 100 Mg Tab 100 Mg PO DAILY Reported Amlodipine (Amlodipine Besylate) 10 Mg Tab 20 Mg PO DAILY Lisinopril 20 Mg Tab 20 Mg PO DAILY Review of Systems Except as stated in HPI: all other systems reviewed are Neg Physical Exam Narrative GENERAL: Disheveled, smells of alcohol SKIN: Warm and dry. HEAD: Atraumatic. Normocephalic. EYES: Pupils equal and round. No injection or drainage. ENT: Moist mucous membranes NECK: Trachea midline. CARDIOVASCULAR: Tachycardiac. No murmur appreciated. RESPIRATORY: Clear to auscultation. Breath sounds equal bilaterally. GASTROINTESTINAL: Abdomen soft, non-tender, nondistended. MUSCULOSKELETAL: No obvious deformities. NEUROLOGICAL: Awake and alert. No obvious cranial nerve deficits. Moving all extremities. Tremulous. PSYCHIATRIC: Appropriate mood and affect; insight and judgment normal. Data Data Last Documented VS Vital Signs Date Time Temp Pulse Resp B/P Pulse Ox O2 Delivery O2 Flow Rate FiO2 09/14/16 09:01 99 22 143/97 99 Nasal Cannula 2 09/14/16 08:19 98.3 Orders Lorazepam Inj (Ativan Inj) (09/14/16 08:30) Electrocardiogram (09/14/16 08:19) Basic Metabolic Panel (Bmp) (09/14/16 08:19) B-Type Natriuretic Peptide (09/14/16 08:19) Complete Blood Count With Diff (09/14/16 08:19) Magnesium (Mg) (09/14/16 08:19) Troponin I (09/14/16 08:19) Chest, Single Ap (09/14/16 08:19) Ecg Monitoring (09/14/16 08:19) Bilateral Bp Monitoring (09/14/16 08:19) Iv Access Insert/Monitor (09/14/16 08:19) Oximetry (09/14/16 08:19) Oxygen Administration (09/14/16 08:19) Sodium Chloride 0.9% Flush (Ns Flush) (09/14/16 08:30) Lorazepam Inj (Ativan Inj) (09/14/16 08:30) Chlordiazepoxide (Librium) (09/14/16 09:15) Ketorolac Inj (Toradol Inj) (09/14/16 09:30) Labs Laboratory Tests Test 09/14/16 09/14/16 08:39 09:19 White Blood Count 5.0 TH/MM3 Red Blood Count 4.39 MIL/MM3 Hemoglobin 14.7 GM/DL Hematocrit 42.8 % Mean Corpuscular Volume 97.5 FL Mean Corpuscular Hemoglobin 33.4 PG Mean Corpuscular Hemoglobin 34.3 % Concent Red Cell Distribution Width 14.4 % Platelet Count 172 TH/MM3 Mean Platelet Volume 6.9 FL Neutrophils (%) (Auto) 62.9 % Lymphocytes (%) (Auto) 20.6 % Monocytes (%) (Auto) 14.3 % Eosinophils (%) (Auto) 1.1 % Basophils (%) (Auto) 1.1 % Neutrophils # (Auto) 3.1 TH/MM3 Lymphocytes # (Auto) 1.0 TH/MM3 Monocytes # (Auto) 0.7 TH/MM3 Eosinophils # (Auto) 0.1 TH/MM3 Basophils # (Auto) 0.1 TH/MM3 CBC Comment DIFF FINAL Differential Comment B-Type Natriuretic Peptide 7 PG/ML Sodium Level 141 MEQ/L Potassium Level 3.5 MEQ/L Chloride Level 104 MEQ/L Carbon Dioxide Level 24.1 MEQ/L Anion Gap 13 MEQ/L Blood Urea Nitrogen 14 MG/DL Creatinine 0.86 MG/DL Estimat Glomerular Filtration 90 ML/MIN Rate Random Glucose 87 MG/DL Calcium Level 8.2 MG/DL Magnesium Level 1.5 MG/DL Troponin I 0.02 NG/ML MDM Medical Decision Making Medical Screen Exam Complete: Yes Emergency Medical Condition: Yes Differential Diagnosis acute alcohol withdrawl, acute coronary syndrome, pneumothorax, pneumonia, costochondritis Narrative Course This is a 61-year-old male who presents to the emergency department with multiple complaints including chest pain, his left hip giving out, hip pain, and shakiness feeling like he is in acute withdrawal. He is hypertensive and tachycardic on arrival. He is placed on a monitor and an IV was established. Labs were obtained which were reassuring. He has been seen in the emergency department 29 times in the past year. He has had three pulmonary CTAs demonstrating possible small bronchogenic carcinoma but no pulmonary embolism. He had a nonischemic stress test on 12/04/15 demonstrating a reduced EF of 42% The patient has had 43 imaging studies performed in the past year. He has had multiple inpatient work ups for chest pain and syncope. My impression is that this patient's chief presenting illness is acute alcohol withdrawal. He was given 4 mg of IV Ativan and 100 mg of Librium. His troponin is reassuring and he had a negative stress test in November. I don't think he would benefit from additional imaging studies or further workup in the hospital. Patient will be discharged home. Diagnosis Primary Impression: Alcohol withdrawal Qualified Code: F10.230 - Alcohol withdrawal, uncomplicated Patient Instructions: General Instructions Additional Instructions: Follow up with Jaylen Jesus in regards to psychiatric or substance related issues at: [address] [place], [place] [address] Med/Other Pt SpecificInfo: No Change to Meds Disposition: 01 DISCHARGE HOME Condition: Stable Violeta Morrison MD Sep 14, 2016 09:24
[2016-09-14] MEDS ORDERED: KETOROLAC TROMETHAMINE 30 MG/ML (IVP) VIAL IV PUSH ONE (09:30)
[2016-09-14 10:03] LABS: BICARBONATE 24.1 MEQ/L (21.0-32.0); MAGNESIUM 1.5 MG/DL (1.5-2.5); POTASSIUM 3.5 MEQ/L (3.5-5.1)
[2016-09-14] MEDS ORDERED: oxyCODONE/ACETAMINOPHEN 5 MG/325 MG TAB PO ONE (10:30)
--- NOTE | 2016-09-14 11:10 | RADRPT ---
EXAM DATE/TIME: 09/14/2016 10:51 [facility] COMPARISON: No previous studies available for comparison. INDICATIONS : Fall. Left hip pain. MEDICAL HISTORY : None. SURGICAL HISTORY : None. ENCOUNTER: Initial ACUITY: 1 day PAIN SCORE: 9/10 LOCATION: Left pelvis FINDINGS: Examination of the left hip was performed with AP Pelvis. The primary and secondary trabecular patte rn of the femoral neck is intact. The hip joint is of normal width without significant sclerosis or bony hypertrophy. The acetabulum is grossly intact. Degenerative changes present at the lumbosacral junction. CONCLUSION: 1. There is no evidence of acute fracture. Aaron Way MD on September 14, 2016 at 11:08 Board Certified Radiologist. This report was verified electronically.
[2016-09-14] MEDS ORDERED: LORazepam 2 MG/ML VIAL IV PUSH PRN ×2 (11:30)
[2016-09-14] MEDS ORDERED: FLUMAZENIL 0.5 MG/5 ML VIAL IV PUSH PRN (11:30)
[2016-09-14] MEDS ORDERED: LORazepam 2 MG TAB PO PRN (11:30)
[2016-09-14] MEDS: LORazepam 1 MG TAB PO PRN ×2 (11:57→17:10)
--- NOTE | 2016-09-14 12:45 | RADRPT ---
EXAM DATE/TIME: 09/14/2016 11:59 [facility] COMPARISON: CT LUMBAR SPINE W/O CONTRAST, January 22, 2015, 20:24. INDICATIONS : Dizzy light headed,fall today,left hip weakness. RADIATION DOSE: 43.04 CTDIvol (mGy) MEDICAL HISTORY : Chronic obstructive pulmonary disease. Cardiovascular disease Seizures. SURGICAL HISTORY : Tonsillectomy. Hernea ENCOUNTER: Initial ACUITY: 1 day PAIN SCALE: 7/10 LOCATION: Lumbar TECHNIQUE: Volumetric scanning of the lumbar spine was performed. Multiplanar reconstructions in the sagittal, coronal and oblique axial planes were performed. Using automated exposure control and adjustment of the mA and/or kV according to patient size, radiation dose was kept as low as reasonably achievable t o obtain optimal diagnostic quality images. FINDINGS: Sagittal images demostrate normal vertebral body alignment and curvature. No fractures are identified . Axial images performed from T12-L1 through L5-S1. There is multilevel disc space narrowing and alex inal osteophyte formation maximal at L4-L5. There is benign-appearing cystic area in the L5 vertebral body on the left which may reflect a hemangioma. T12-L1: No significant abnormalities identified. L1-L2: There is mild diffuse annular bulge of the disc. The neural foramina are clear bilaterally. There is no significant spinal canal stenosis. L2-L3: There is broad-based annular bulge of disc. There is no significant spinal canal stenosis. The neural foramina are clear bilaterally. L3-L4: There is broad-based annular bulge of disc. There is mild facet arthritis and ligamentum flavum hyper trophy bilaterally. There is moderate neural foraminal narrowing bilaterally. L4-L5: There is broad-based annular bulge of disc. There is no significant spinal canal stenosis. There is m oderate facet arthritis bilaterally with ligamentum flavum hypertrophy. There is moderate neural fora ford narrowing bilaterally. L5-S1: There is no significant spinal canal stenosis. There is a calcified disc fragment asymmetric to left compromising the traversing left S1 nerve root. There is moderate neural foraminal narrowing bilatera lly. There is mild facet arthritis bilaterally. CONCLUSION: 1. There is no evidence of acute fracture. 2. Multilevel degenerative disc disease without stenosis with multilevel foraminal narrowing as above Aaron Way MD on September 14, 2016 at 12:39 Board Certified Radiologist. This report was verified electronically.
--- NOTE | 2016-09-14 12:57 | RADRPT ---
EXAM DATE/TIME: 09/14/2016 11:59 [facility] COMPARISON: No previous studies available for comparison. INDICATIONS : Fall today,dizzy,left hip pain. ORAL CONTRAST: No oral contrast ingested. RADIATION DOSE: 14.11 CTDIvol (mGy) MEDICAL HISTORY : Chronic obstructive pulmonary disease. Cardiovascular disease Hypertension. SURGICAL HISTORY : Tonsillectomy. Hernea ENCOUNTER: Initial ACUITY: 1 day PAIN SCALE: 7/10 LOCATION: pelvis TECHNIQUE: Volumetric scanning of the pelvis was performed. Using automated exposure control and adjustment of the mA and/or kV according to patient size, radiation dose was kept as low as reasonably achievable t o obtain optimal diagnostic quality images. FINDINGS: There is no evidence of acute fracture. Joint spaces are maintained. Degenerative changes present at the lumbosacral junction. Stable benign cystic area in the L5 vertebral body measuring 2 cm likely r eflects hemangioma unchanged from 2014. Examination of the pelvis demonstrates no evidence of free fl uid or pelvic mass. No abnormally enlarged inguinal or retroperitoneal lymph nodes are present. The b ladder is unremarkable. CONCLUSION: 1. There is no evidence of acute fracture. Aaron Way MD on September 14, 2016 at 12:53 Board Certified Radiologist. This report was verified electronically.
[2016-09-14] MEDS: LORazepam 2 MG/ML VIAL IV PUSH PRN ×4 (14:33→23:12)
[2016-09-14] MEDS ORDERED: cloNIDine HCL 0.1 MG TAB PO PRN (15:15)
[2016-09-14] MEDS: LISINOPRIL 20 MG TAB PO SCH (15:54)
[2016-09-14] MEDS ORDERED: ONDANSETRON HCL 4 MG/2 ML VIAL IVP PRN (17:30)
[2016-09-14] MEDS ORDERED: ACETAMINOPHEN 325 MG TAB PO PRN (17:30)
[2016-09-14] MEDS ORDERED: SODIUM CHLORIDE 0.9% FLUSH 5 ML FLUSH FLUSH PRN (17:30)
[2016-09-14] MEDS: SODIUM CHLOR 0.9% 1000 ML INJ 1,000 ML IV SCH (18:28)
[2016-09-14] MEDS: DILTIAZEM HCL 90 MG TAB PO SCH ×2 (18:28→23:16)
[2016-09-14] MEDS: HEPARIN SODIUM - SQ 10,000 UNITS/ML VIAL SQ SCH (18:28)
[2016-09-14] MEDS: CARVEDILOL 6.25 MG TAB PO SCH (19:24)
[2016-09-14] MEDS: SODIUM CHLORIDE 0.9% FLUSH 5 ML FLUSH FLUSH SCH (21:00)
--- NOTE | 2016-09-14 21:16 | HHI.HP ---
HPI Service [facility] Primary Care Physician Jessica Flores MD Admission Diagnosis acute alcohol withdrawl Diagnoses: Chief Complaint: Chest pain, left hip pain Travel History International Travel<30 Days: No Contact w/Intl Traveler <30 Da: No Traveled to Known Affected Are: No History of Present Illness This is a 61-year-old male with past medical history of alcohol abuse and alcoholism and previous alcohol withdrawal seizures who presents to [facility] complaining of chest pain. The patient states that this morning he had some pressure like chest pain which was nonradiating, severe and rated as 10/10. Patient states that the pain is constant for the past 2 days. Also complains of nausea, dyspnea on exertion, palpitations. Patient is noted to be hypertensive. The patient also states that today he had some left hip pain and his legs gave out. The patient states that he fell over his left side and possibly hit his head although he doesn't remember that well. Patient states that the pain is worst when he takes deep breaths and when he palpates the area. Patient was seen in the emergency department and noted to have some tremors and signs and symptoms consistent with alcohol withdrawal. The patient states that his last drink was on the last evening. The patient denies abdominal pain, diarrhea, dysuria. Review of Systems Other As per history of present illness, other systems reviewed by me and negative. Past Family Social History Past Medical History 1. History of left bundle branch block. 2. History of atrial fibrillation with RVR not on chronic anticoagulation due to GI bleed. 3. Hypertension 4. CHF 5. Alcohol withdrawal. Past Surgical History 1. Patient states he has had multiple fractures in the past. 2. Bilateral ankle surgical repair. 3. Total left knee replacement. 4. Appendectomy. 5. Cholecystectomy 6. Abdominal hernia repair. 7. Tonsillectomy. Reported Medications Diltiazem (Diltiazem HCl) 90 Mg Tab 90 Mg PO QID Coreg (Carvedilol) 6.25 Mg Tab 6.25 Mg PO Q12HR Chlordiazepoxide (Chlordiazepoxide HCl) 25 Mg Cap 25 Mg PO TID PRN Aspirin EC (Aspirin) 81 Mg Tabdr 162 Mg PO DAILY Thiamine (Thiamine HCl) 100 Mg Tab 100 Mg PO DAILY Reported Amlodipine (Amlodipine Besylate) 10 Mg Tab 20 Mg PO DAILY Lisinopril 20 Mg Tab 20 Mg PO DAILY Allergies: Coded Allergies: Keflex (Verified Allergy, Severe, hives, 09/14/16) Penicillin (Verified Allergy, Severe, hives, 09/14/16) Sulfa (Verified Allergy, Severe, hives, 09/14/16) Nitroglycerin (Verified Allergy, Mild, 09/14/16) vomit Active Ordered Medications Current Medications Medications (Trade) Dose Ordered Sig/Candy Route Start Time Stop Time Status Last Admin (Romazicon Inj) 0.2 mg Q1M PRN IV PUSH 09/14/16 11:30 (Ativan) 1 mg Q4H PRN PO 09/14/16 11:30 09/14/16 17:10 (Ativan Inj) 1 mg Q4H PRN IV PUSH 09/14/16 11:30 (Ativan) 2 mg Q2H PRN PO 09/14/16 11:30 (Ativan Inj) 2 mg Q2H PRN IV PUSH 09/14/16 11:30 09/14/16 14:33 (Ativan Inj) 2 mg Q1H PRN IV PUSH 09/14/16 11:30 09/14/16 19:27 (Ativan Inj) 2 mg Q15M PRN IV PUSH 09/14/16 11:30 (Catapres) 0.1 mg Q6H PRN PO 09/14/16 15:15 09/14/16 15:29 (Norvasc) 10 mg DAILY PO 09/14/16 15:30 09/14/16 17:04 (Ecotrin Ec) 162 mg DAILY PO 09/15/16 09:00 (Coreg) 6.25 mg Q12HR PO 09/14/16 21:00 09/14/16 19:24 (Cardizem) 90 mg QID PO 09/14/16 18:00 09/14/16 18:28 (Prinivil) 20 mg DAILY PO 09/14/16 15:30 09/14/16 15:54 Thiamine HCl 100 mg 100 mg DAILY PO 09/15/16 09:00 (NS 1000 ml Inj) 1,000 ml @ 100 mls/hr Q10H IV 09/14/16 17:17 09/14/16 18:28 (NS Flush) 2 ml UNSCH PRN FLUSH 09/14/16 17:30 (NS Flush) 2 ml BID FLUSH 09/14/16 21:00 (Tylenol) 650 mg Q4H PRN PO 09/14/16 17:30 (Zofran Inj) 4 mg Q6H PRN IVP 09/14/16 17:30 (Heparin Inj) 5,000 units Q8H SQ 09/14/16 18:00 09/14/16 18:28 Family History Patient states that his mother has diabetes, hypertension and atrial fibrillation. Social History Patient denies smoking. Patient drinks alcohol, he states he drinks 1 pint o'clock that day. Denies illicit drug use. The patient is and has 2 children who live in the [facility]. Physical Exam Vital Signs Vital Signs Date Time Temp Pulse Resp B/P Pulse Ox O2 Delivery O2 Flow Rate FiO2 09/14/16 19:16 97 18 195/110 99 09/14/16 18:06 100 18 171/114 96 Room Air 09/14/16 15:53 98 17 204/117 99 Room Air 2 09/14/16 14:49 91 17 193/91 100 Nasal Cannula 2 09/14/16 13:31 92 18 168/118 98 Nasal Cannula 2 09/14/16 12:28 92 18 200/119 96 Nasal Cannula 2 09/14/16 12:00 8 09/14/16 11:12 17 09/14/16 10:20 90 17 140/82 96 09/14/16 09:01 99 22 143/97 99 Nasal Cannula 2 09/14/16 08:35 103 18 125/100 98 Nasal Cannula 2 09/14/16 08:33 105 20 97 Nasal Cannula 2 09/14/16 08:25 97 Nasal Cannula 2 09/14/16 08:25 97 Nasal Cannula 2 09/14/16 08:19 98.3 109 22 178/107 95 Physical Exam GENERAL: This is a well-nourished, well-developed patient, in no apparent distress. SKIN: No rashes, ecchymoses or lesions. Cool and dry. HEAD: Atraumatic. Normocephalic. No temporal or scalp tenderness. EYES: Pupils equal round and reactive. Extraocular motions intact. No scleral icterus. No injection or drainage. ENT: Nose without bleeding, purulent drainage or septal hematoma. Throat without erythema, tonsillar hypertrophy or exudate. Uvula midline. Airway patent. NECK: Trachea midline. No JVD or lymphadenopathy. Supple, nontender, no meningeal signs. CARDIOVASCULAR: Regular rate and rhythm without murmurs, gallops, or rubs. RESPIRATORY: Coarse rhonchi bilaterally. Breath sounds equal bilaterally. No wheezes or rales auscultated. GASTROINTESTINAL: Abdomen soft, non-tender, nondistended. No hepato-splenomegaly , or palpable masses. No guarding. MUSCULOSKELETAL: Extremities without clubbing, cyanosis, or edema. No joint tenderness, effusion, or edema noted. No calf tenderness. Negative Homans sign bilaterally. NEUROLOGICAL: Awake and alert. Cranial nerves II through XII intact. Motor and sensory grossly within normal limits. Five out of 5 muscle strength in all muscle groups. Normal speech. Tremors in upper extremities. Laboratory Laboratory Tests Test 09/14/16 09/14/16 08:39 09:19 White Blood Count 5.0 Red Blood Count 4.39 Hemoglobin 14.7 Hematocrit 42.8 Mean Corpuscular Volume 97.5 Mean Corpuscular Hemoglobin 33.4 Mean Corpuscular Hemoglobin 34.3 Concent Red Cell Distribution Width 14.4 Platelet Count 172 Mean Platelet Volume 6.9 Neutrophils (%) (Auto) 62.9 Lymphocytes (%) (Auto) 20.6 Monocytes (%) (Auto) 14.3 Eosinophils (%) (Auto) 1.1 Basophils (%) (Auto) 1.1 Neutrophils # (Auto) 3.1 Lymphocytes # (Auto) 1.0 Monocytes # (Auto) 0.7 Eosinophils # (Auto) 0.1 Basophils # (Auto) 0.1 CBC Comment DIFF FINAL Differential Comment B-Type Natriuretic Peptide 7 Sodium Level 141 Potassium Level 3.5 Chloride Level 104 Carbon Dioxide Level 24.1 Anion Gap 13 Blood Urea Nitrogen 14 Creatinine 0.86 Estimat Glomerular Filtration 90 Rate Random Glucose 87 Calcium Level 8.2 Magnesium Level 1.5 Troponin I 0.02 Result Diagram: 09/14/16 0839 09/14/16918 Imaging Last Impressions Chest X-Ray 09/14/16818 Signed Impressions: Service Date/Time: September 08:33 - CONCLUSION: No acute disease. Slight sclerosis of the anterior left fourth rib could be healing rib fracture in the right clinical setting. Kevin Polanco MD Pelvis CT 09/14/16 0000 Signed Impressions: Service Date/Time: September 11:59 - CONCLUSION: 1. There is no evidence of acute fracture. Aaron Way MD Lumbar Spine CT 09/14/16 Signed Impressions: Service Date/Time: September 11:59 - CONCLUSION: 1. There is no evidence of acute fracture. 2. Multilevel degenerative disc disease without stenosis with multilevel foraminal narrowing as above Aaron Way MD Hip and Pelvis X-Ray 09/14/16 Signed Impressions: Service Date/Time: September 10:51 - CONCLUSION: 1. There is no evidence of acute fracture. Aaron Way MD Reviewed by me Assessment and Plan Problem List: (1) Alcohol withdrawal ICD Code: F10.239 Status: Acute Plan: Admit the patient to the medical floor Monitoring telemetry IV fluids By mouth thiamine and folic acid Place under the [facility] protocol (2) Alcohol dependence ICD Code: F10.20 Status: Chronic Plan: Advised on alcohol cessation. Case management to assist in providing formation to the patient. (3) Chest pain ICD Code: R07.9 Status: Resolved Plan: Atypical chest pain. Possibly due to fall and trauma since there is tenderness to palpation. Monitor on telemetry, monitor serial enzymes and check EKG in a.m. and as needed for chest pain. Chest x-ray as above and reviewed by me no acute disease. (4) Left hip pain ICD Code: M25.552 Status: Acute Plan: Hip and pelvis x-ray without evidence of fracture. Physical therapy or ablation. (5) A-fib ICD Code: I48.91 Status: Chronic Plan: EKG reviewed by me shows sinus tachycardia with nonspecific T-wave abnormalities however no ST-T changes elevations or depressions suggestive of active ischemia. Patient now in sinus rhythm. Continue carvedilol and Cardizem for rate control. (6) HTN (hypertension) ICD Code: I10 Status: Chronic Plan: Blood pressure seems controlled. Resume home antihypertensive medications. The patient currently on lisinopril, carvedilol, amlodipine. Assessment and Plan GI prophylaxis: Place on proton pump inhibitor. DVT prophylaxis: Heparin subcutaneously. Code Status Full code Discussed Condition With Patient, RN Physician Certification 2 Midnight Certification Type: Admission for Inpatient Services Order for Inpatient Services The services are ordered in accordance with Medicare regulations or non- Medicare payer requirements, as applicable. In the case of services not specified as inpatient-only, they are appropriately provided as inpatient services in accordance with the 2-midnight benchmark. Estimated LOS (days): 2 days is the estimated time the patient will need to remain in the hospital, assuming treatment plan goals are met and no additional complications. Post-Hospital Plan: Not yet determined Problem Qualifiers (1) Alcohol withdrawal: Qualified Code: F10.230 - Alcohol withdrawal, uncomplicated (2) Alcohol dependence: Todd Acuña MD Sep 14, 2016 21:16
[2016-09-15] VITALS (8 sets, daily range): BP systolic 123–173; BP diastolic 60–113; PULSE 69–85; RESP 17–20; TEMP 97.6–98.2; O2SAT 93–97
[2016-09-15] MEDS: LORazepam 2 MG/ML VIAL IV PUSH PRN ×6 (01:17→22:09)
[2016-09-15] MEDS: HEPARIN SODIUM - SQ 10,000 UNITS/ML VIAL SQ SCH ×3 (02:00→18:09)
[2016-09-15] MEDS: SODIUM CHLOR 0.9% 1000 ML INJ 1,000 ML IV SCH ×3 (03:17→23:14)
--- NOTE | 2016-09-15 06:49 | EKG ---
Date Performed: 09/14/2016 Time Performed: 08:17:43 PTAGE: 61 years EKG: SINUS TACHYCARDIA NONSPECIFIC ST & T-WAVE ABNORMALITY ABNORMAL RHYTHM ECG NO PREVIOUS TRACING DOCTOR: Larry Schwartz Interpretating Date/Time 09/15/2016 06:46:41
[2016-09-15] MEDS: SODIUM CHLORIDE 0.9% FLUSH 5 ML FLUSH FLUSH SCH ×2 (09:00→20:23)
[2016-09-15] MEDS: DILTIAZEM HCL 90 MG TAB PO SCH ×4 (09:06→20:22)
[2016-09-15] MEDS: THIAMINE HCL 100 MG TAB PO SCH (09:06)
[2016-09-15] MEDS: PANTOPRAZOLE SOD 40 MG DELAYED RELEASE TAB PO SCH (09:06)
[2016-09-15] MEDS: CARVEDILOL 6.25 MG TAB PO SCH ×2 (09:06→20:22)
[2016-09-15] MEDS: LISINOPRIL 20 MG TAB PO SCH (09:06)
[2016-09-15] MEDS: ASPIRIN EC 81 MG TABEC PO SCH (09:06)
[2016-09-15] MEDS: MORPHINE SULFATE 4 MG/ML INJ IV PUSH PRN ×3 (09:19→19:21)
[2016-09-15 10:44] LABS: AUTOMATED NEUTROPHIL # 3.7 TH/MM3 (1.8-7.7); BASOPHIL % 0.8 % (0.0-2.0); EOSINOPHIL # 0.1 TH/MM3 (0-0.4); EOSINOPHIL % 2.5 % (0.0-4.0); HEMO FLAGS DIFF FINAL; LYMPH % 12.3 % (9.0-44.0); LYMPHOCYTE # 0.7 TH/MM3 (1.0-4.8); MEAN CELL VOLUME 97.5 FL (80.0-100.0); MEAN CORPUSCULAR HGB CONC 33.8 % (32.0-36.0); MONO % 14.4 % (0.0-8.0); PLATELET COUNT 141 TH/MM3 (150-450); RED BLOOD COUNT 4.41 MIL/MM3 (4.50-5.90); RED CELL DISTRIBUTION WIDTH 14.3 % (11.6-17.2); WHITE BLOOD COUNT 5.3 TH/MM3 (4.0-11.0)
[2016-09-15 11:23] LABS: ALKALINE PHOSPHATASE 46 U/L (45-117); ALT (GPT) 37 U/L (12-78); ANION GAP 9 MEQ/L (5-15); AST (GOT) 46 U/L (15-37); BICARBONATE 25.5 MEQ/L (21.0-32.0); BLOOD UREA NITROGEN 11 MG/DL (7-18); CHLORIDE 103 MEQ/L (98-107); CREATINE KINASE 147 U/L (39-308); GLOMERULAR FILTRATION RATE 114 ML/MIN (>89); POTASSIUM 3.8 MEQ/L (3.5-5.1); SODIUM (NA) 137 MEQ/L (136-145); TOTAL BILIRUBIN ADULT 1.3 MG/DL (0.2-1.0)
[2016-09-15] MEDS: LORazepam 1 MG TAB PO PRN (14:44)
--- NOTE | 2016-09-15 18:58 | HHI.PR ---
Subjective Remarks Patient complaints of chest pain, nausea, tremors States that he has been seeing white spots Is that he vomited one time Denies shortness of breath States that he does not feel good overall. Objective Vitals Vital Signs Date Time Temp Pulse Resp B/P Pulse Ox O2 Delivery O2 Flow Rate FiO2 09/15/16 16:07 98.0 85 20 154/92 97 09/15/16 12:06 98.2 82 20 147/92 96 09/15/16 09:00 Room Air 09/15/16 08:21 97.7 81 20 173/113 96 170/100 09/15/16 08:17 76 09/15/16 04:50 97.6 69 18 123/60 93 09/15/16 00:15 97.6 81 18 140/87 94 09/14/16 23:00 Room Air 09/14/16 22:15 80 09/14/16 22:15 80 09/14/16 21:34 97.9 80 18 152/98 93 09/14/16 21:17 99 Room Air 09/14/16 21:05 82 18 162/104 99 09/14/16 19:16 97 18 195/110 99 I/O 09/14/16 09/14/16 09/14/16 09/15/16 09/15/16 09/15/16 07:00 15:00 23:00 07:00 15:00 23:00 Intake Total 480 ml 720 ml Output Total 800 ml 1200 ml Balance -320 ml -480 ml Intake Oral 480 ml 720 ml Output Urine Total 800 ml 1200 ml # Bowel Movements 0 0 Result Diagram: 09/15/16 1018 09/15/16 1018 Imaging Last Impressions Chest X-Ray 09/14/16 0819 Signed Impressions: Service Date/Time: September 08:33 - CONCLUSION: No acute disease. Slight sclerosis of the anterior left fourth rib could be healing rib fracture in the right clinical setting. Kevin Polanco MD Pelvis CT 09/14/16 0000 Signed Impressions: Service Date/Time: September 11:59 - CONCLUSION: 1. There is no evidence of acute fracture. Aaron Way MD Lumbar Spine CT 09/14/16 0000 Signed Impressions: Service Date/Time: September 11:59 - CONCLUSION: 1. There is no evidence of acute fracture. 2. Multilevel degenerative disc disease without stenosis with multilevel foraminal narrowing as above Aaron Way MD Hip and Pelvis X-Ray 09/14/16 0000 Signed Impressions: Service Date/Time: September 10:51 - CONCLUSION: 1. There is no evidence of acute fracture. Aaron Way MD Objective Remarks GENERAL: This is a well-nourished, well-developed patient, in no apparent distress. SKIN: No rashes, ecchymoses or lesions. Cool and dry. HEAD: Atraumatic. Normocephalic. No temporal or scalp tenderness. EYES: Pupils equal round and reactive. Extraocular motions intact. No scleral icterus. No injection or drainage. ENT: Nose without bleeding, purulent drainage or septal hematoma. Throat without erythema, tonsillar hypertrophy or exudate. Uvula midline. Airway patent. NECK: Trachea midline. No JVD or lymphadenopathy. Supple, nontender, no meningeal signs. CARDIOVASCULAR: Regular rate and rhythm without murmurs, gallops, or rubs. RESPIRATORY: Coarse rhonchi bilaterally. Breath sounds equal bilaterally. No wheezes or rales auscultated. GASTROINTESTINAL: Abdomen soft, non-tender, nondistended. No hepato-splenomegaly , or palpable masses. No guarding. MUSCULOSKELETAL: Extremities without clubbing, cyanosis, or edema. No joint tenderness, effusion, or edema noted. No calf tenderness. Negative Homans sign bilaterally. NEUROLOGICAL: Awake and alert. Cranial nerves II through XII intact. Motor and sensory grossly within normal limits. Five out of 5 muscle strength in all muscle groups. Normal speech. Tremors in upper extremities. Medications and IVs Current Medications Medications (Trade) Dose Ordered Sig/Candy Route Start Time Stop Time Status Last Admin (Romazicon Inj) 0.2 mg Q1M PRN IV PUSH 09/14/16 11:30 (Ativan) 1 mg Q4H PRN PO 09/14/16 11:30 09/15/16 14:44 (Ativan Inj) 1 mg Q4H PRN IV PUSH 09/14/16 11:30 (Ativan) 2 mg Q2H PRN PO 09/14/16 11:30 09/15/16 12:23 (Ativan Inj) 2 mg Q2H PRN IV PUSH 09/14/16 11:30 09/15/16 18:08 (Ativan Inj) 2 mg Q1H PRN IV PUSH 09/14/16 11:30 09/14/16 21:05 (Ativan Inj) 2 mg Q15M PRN IV PUSH 09/14/16 11:30 (Catapres) 0.1 mg Q6H PRN PO 09/14/16 15:15 09/14/16 15:29 (Norvasc) 10 mg DAILY PO 09/14/16 15:30 09/15/16 09:06 (Ecotrin Ec) 162 mg DAILY PO 09/15/16 09:00 09/15/16 09:06 (Coreg) 6.25 mg Q12HR PO 09/14/16 21:00 09/15/16 09:06 (Cardizem) 90 mg QID PO 09/14/16 18:00 09/15/16 18:08 (Prinivil) 20 mg DAILY PO 09/14/16 15:30 09/15/16 09:06 Thiamine HCl 100 mg 100 mg DAILY PO 09/15/16 09:00 09/15/16 09:06 (NS 1000 ml Inj) 1,000 ml @ 100 mls/hr Q10H IV 09/14/16 17:17 09/15/16 12:23 (NS Flush) 2 ml UNSCH PRN FLUSH 09/14/16 17:30 (NS Flush) 2 ml BID FLUSH 09/14/16 21:00 (Tylenol) 650 mg Q4H PRN PO 09/14/16 17:30 (Zofran Inj) 4 mg Q6H PRN IVP 09/14/16 17:30 (Heparin Inj) 5,000 units Q8H SQ 09/14/16 18:00 09/15/16 18:09 (Morphine Inj) 2 mg Q4H PRN IV PUSH 09/14/16 21:00 09/15/16 15:19 (Protonix) 40 mg DAILY PO 09/15/16 09:00 09/15/16 09:06 Urinary Catheter: No Vascular Central Line Catheter: No A/P Problem List: (1) Alcohol withdrawal ICD Code: F10.239 Status: Acute (2) Alcohol dependence ICD Code: F10.20 Status: Chronic (3) Chest pain ICD Code: R07.9 Status: Resolved (4) Left hip pain ICD Code: M25.552 Status: Acute (5) A-fib ICD Code: I48.91 Status: Chronic (6) HTN (hypertension) ICD Code: I10 Status: Chronic Assessment and Plan (1) Alcohol withdrawal Plan: Patient was admitted to the medical floor Continue to monitor on telemetry Continue IV fluids By mouth thiamine and folic acid Continue CIWA protocol Patient is still requiring several doses of IV Ativan. (2) Alcohol dependence Plan: Advised on alcohol cessation. Case management to assist in providing formation to the patient. (3) Chest pain Plan: Atypical chest pain. Possibly due to fall and trauma since there is tenderness to palpation. Troponins negative 3. ACS ruled out. Monitor on telemetry, monitor serial enzymes and check EKG in a.m. and as needed for chest pain. Chest x-ray as above and reviewed by me no acute disease. (4) Left hip pain Plan: Hip and pelvis x-ray without evidence of fracture. CT of the lumbar spine does not show any acute fracture. There is multilevel degenerative disc disease without stenosis with multilevel foraminal narrowing. Appreciate physical therapy evaluation and effort. The patient will need rehabilitation. I will add [place] for pain control. (5) A-fib Plan: EKG reviewed by me shows sinus tachycardia with nonspecific T-wave abnormalities however no ST-T changes elevations or depressions suggestive of active ischemia. Patient now in sinus rhythm. Continue carvedilol and Cardizem for rate control. (6) HTN (hypertension) Plan: Blood pressure seems to be uncontrolled. Systolic blood pressure up in the 170s. Increase the dose of lisinopril to 40 mg by mouth daily. Continue Coreg and amlodipine 10 minutes by mouth daily. We'll give an extra dose of 20 mg of lisinopril now. At clonidine when necessary for systolic blood pressure more than 160. GI prophylaxis: Continue PPI DVT prophylaxis: Heparin subcutaneously, SCDs Discharge Planning Continue to monitor in the medical floor. Pending clinical improvement of blood pressure and I'll call withdrawal symptoms. Problem Qualifiers (1) Alcohol withdrawal: Qualified Code: F10.230 - Alcohol withdrawal, uncomplicated (2) Alcohol dependence: Todd Acuña MD Sep 15, 2016 18:58
[2016-09-15] MEDS ORDERED: ACETAMINOPHEN/HYDROcodone 325 MG/5 MG TAB PO PRN ×2 (20:00)
[2016-09-15] MEDS: DOCUSATE SODIUM 100 MG CAP PO SCH (20:22)
[2016-09-16] VITALS: BP 127/89; PULSE 69; RESP 16; TEMP 97; O2SAT 96
[2016-09-16] MEDS: LORazepam 2 MG/ML VIAL IV PUSH PRN ×6 (00:36→20:07)
[2016-09-16] MEDS: HEPARIN SODIUM - SQ 10,000 UNITS/ML VIAL SQ SCH ×3 (02:00→17:18)
[2016-09-16] MEDS: MORPHINE SULFATE 4 MG/ML INJ IV PUSH PRN ×5 (02:48→20:07)
[2016-09-16 07:00] VITALS: PULSE 77
[2016-09-16] MEDS: DILTIAZEM HCL 90 MG TAB PO SCH ×4 (08:11→20:06)
[2016-09-16] MEDS: PANTOPRAZOLE SOD 40 MG DELAYED RELEASE TAB PO SCH (08:11)
[2016-09-16] MEDS: THIAMINE HCL 100 MG TAB PO SCH (08:11)
[2016-09-16] MEDS: CARVEDILOL 6.25 MG TAB PO SCH ×2 (08:11→20:06)
[2016-09-16] MEDS: DOCUSATE SODIUM 100 MG CAP PO SCH ×2 (08:12→20:06)
[2016-09-16] MEDS: SODIUM CHLORIDE 0.9% FLUSH 5 ML FLUSH FLUSH SCH ×2 (08:12→20:00)
[2016-09-16] MEDS: ASPIRIN EC 81 MG TABEC PO SCH (08:12)
[2016-09-16] MEDS: LISINOPRIL 20 MG TAB PO SCH (08:12)
[2016-09-16] MEDS: SODIUM CHLOR 0.9% 1000 ML INJ 1,000 ML IV SCH ×2 (08:13→17:19)
[2016-09-16 08:28] VITALS: BP 155/95; PULSE 77; RESP 20; TEMP 97.5; O2SAT 94
[2016-09-16 12:07] VITALS: BP 137/94; PULSE 78; RESP 20; TEMP 97.7; O2SAT 93
--- NOTE | 2016-09-16 15:27 | HHI.PR ---
Subjective Remarks Patient feels nauseous still requiring IV Ativan still has cp which is reproducible on palpation denies fevers/chills denies cough Bp much improved Objective Vitals Vital Signs Date Time Temp Pulse Resp B/P Pulse Ox O2 Delivery O2 Flow Rate FiO2 09/16/16 12:07 97.7 78 20 137/94 93 09/16/16 09:07 Room Air 09/16/16 08:28 97.5 77 20 155/95 94 09/16/16 00:00 97.0 69 16 127/89 96 09/15/16 20:09 85 09/15/16 20:00 98.2 80 17 146/80 96 09/15/16 19:47 Room Air 09/15/16 16:07 98.0 85 20 154/92 97 I/O 09/15/16 09/15/16 09/15/16 09/16/16 09/16/16 09/16/16 07:00 15:00 23:00 07:00 15:00 23:00 Intake Total 480 ml 720 ml 1440 ml 240 ml Output Total 800 ml 1200 ml 325 ml Balance -320 ml -480 ml 1440 ml -85 ml Intake Oral 480 ml 720 ml 1440 ml 240 ml Output Urine Total 800 ml 1200 ml 325 ml # Voids 6 # Bowel Movements 0 0 1 Result Diagram: 09/15/16 1018 09/15/16 1018 Imaging Last Impressions Chest X-Ray 09/14/16 0819 Signed Impressions: Service Date/Time: September 08:33 - CONCLUSION: No acute disease. Slight sclerosis of the anterior left fourth rib could be healing rib fracture in the right clinical setting. Kevin Polanco MD Pelvis CT 09/14/16 Signed Impressions: Service Date/Time: September 11:59 - CONCLUSION: 1. There is no evidence of acute fracture. Aaron Way MD Lumbar Spine CT 09/14/16 Signed Impressions: Service Date/Time: September 11:59 - CONCLUSION: 1. There is no evidence of acute fracture. 2. Multilevel degenerative disc disease without stenosis with multilevel foraminal narrowing as above Aaron Way MD Hip and Pelvis X-Ray 09/14/16 0000 Signed Impressions: Service Date/Time: September 10:51 - CONCLUSION: 1. There is no evidence of acute fracture. Aaron Way MD Objective Remarks GENERAL: This is a well-nourished, well-developed patient, in no apparent distress. SKIN: No rashes, ecchymoses or lesions. Cool and dry. HEAD: Atraumatic. Normocephalic. No temporal or scalp tenderness. EYES: Pupils equal round and reactive. Extraocular motions intact. No scleral icterus. No injection or drainage. ENT: Nose without bleeding, purulent drainage or septal hematoma. Throat without erythema, tonsillar hypertrophy or exudate. Uvula midline. Airway patent. NECK: Trachea midline. No JVD or lymphadenopathy. Supple, nontender, no meningeal signs. CARDIOVASCULAR: Regular rate and rhythm without murmurs, gallops, or rubs. RESPIRATORY: Coarse rhonchi bilaterally. Breath sounds equal bilaterally. No wheezes or rales auscultated. GASTROINTESTINAL: Abdomen soft, non-tender, nondistended. No hepato-splenomegaly , or palpable masses. No guarding. MUSCULOSKELETAL: Extremities without clubbing, cyanosis, or edema. No joint tenderness, effusion, or edema noted. No calf tenderness. Negative Homans sign bilaterally. NEUROLOGICAL: Awake and alert. Cranial nerves II through XII intact. Motor and sensory grossly within normal limits. Five out of 5 muscle strength in all muscle groups. Normal speech. Tremors in upper extremities much improved. Medications and IVs Current Medications Medications (Trade) Dose Ordered Sig/Candy Route Start Time Stop Time Status Last Admin (Romazicon Inj) 0.2 mg Q1M PRN IV PUSH 09/14/16 11:30 (Ativan) 1 mg Q4H PRN PO 09/14/16 11:30 09/15/16 14:44 (Ativan Inj) 1 mg Q4H PRN IV PUSH 09/14/16 11:30 (Ativan) 2 mg Q2H PRN PO 09/14/16 11:30 09/15/16 12:23 (Ativan Inj) 2 mg Q2H PRN IV PUSH 09/14/16 11:30 09/16/16 11:19 (Ativan Inj) 2 mg Q1H PRN IV PUSH 09/14/16 11:30 09/14/16 21:05 (Ativan Inj) 2 mg Q15M PRN IV PUSH 09/14/16 11:30 (Catapres) 0.1 mg Q6H PRN PO 09/14/16 15:15 09/14/16 15:29 (Norvasc) 10 mg DAILY PO 09/14/16 15:30 09/16/16 08:11 (Ecotrin Ec) 162 mg DAILY PO 09/15/16 09:00 09/16/16 08:12 (Coreg) 6.25 mg Q12HR PO 09/14/16 21:00 09/16/16 08:11 (Cardizem) 90 mg QID PO 09/14/16 18:00 09/16/16 12:01 Thiamine HCl 100 mg 100 mg DAILY PO 09/15/16 09:00 09/16/16 08:11 (NS 1000 ml Inj) 1,000 ml @ 100 mls/hr Q10H IV 09/14/16 17:17 09/16/16 08:13 (NS Flush) 2 ml UNSCH PRN FLUSH 09/14/16 17:30 (NS Flush) 2 ml BID FLUSH 09/14/16 21:00 09/16/16 08:12 (Tylenol) 650 mg Q4H PRN PO 09/14/16 17:30 (Zofran Inj) 4 mg Q6H PRN IVP 09/14/16 17:30 (Heparin Inj) 5,000 units Q8H SQ 09/14/16 18:00 09/16/16 08:13 (Morphine Inj) 2 mg Q4H PRN IV PUSH 09/14/16 21:00 09/16/16 11:24 (Protonix) 40 mg DAILY PO 09/15/16 09:00 09/16/16 08:11 (Prinivil) 40 mg DAILY PO 09/16/16 09:00 09/16/16 08:12 (Argyle 5-325 Mg) 1 tab Q4H PRN PO 09/15/16 20:00 (Argyle 5-325 Mg) 2 tab Q4H PRN PO 09/15/16 20:00 (Colace) 100 mg BID PO 09/15/16 21:00 09/16/16 08:12 A/P Problem List: (1) Alcohol withdrawal ICD Code: F10.239 Status: Acute (2) Alcohol dependence ICD Code: F10.20 Status: Chronic (3) Chest pain ICD Code: R07.9 Status: Resolved (4) Left hip pain ICD Code: M25.552 Status: Acute (5) A-fib ICD Code: I48.91 Status: Chronic (6) HTN (hypertension) ICD Code: I10 Status: Chronic Assessment and Plan (1) Alcohol withdrawal Plan: Patient was admitted to the medical floor Continue to monitor on telemetry Continue IV fluids By mouth thiamine and folic acid Continue CIWA protocol Patient is still requiring several doses of IV Ativan. (2) Alcohol dependence Plan: Advised on alcohol cessation. Case management to assist in providing formation to the patient. (3) Chest pain Plan: Atypical chest pain. Possibly due to fall and trauma since there is tenderness to palpation. Possibly healing rib fracture. Troponins negative 3. ACS ruled out. Monitor on telemetry, monitor serial enzymes and check EKG in a.m. and as needed for chest pain. Chest x-ray as above and reviewed by me no acute disease. Slight sclerosis of the anterior left fourth rib where it is that patient complains of pain. Continue pain control with IV morphine and oral Argyle. (4) Left hip pain Plan: Hip and pelvis x-ray without evidence of fracture. CT of the lumbar spine does not show any acute fracture. There is multilevel degenerative disc disease without stenosis with multilevel foraminal narrowing. Appreciate physical therapy evaluation and effort. The patient will need rehabilitation. Left hip pain improved. Continue pain control with oral [place]. (5) A-fib Plan: EKG reviewed by me shows sinus tachycardia with nonspecific T-wave abnormalities however no ST-T changes elevations or depressions suggestive of active ischemia. Patient now in sinus rhythm. Continue carvedilol and Cardizem for rate control. (6) HTN (hypertension) Plan: Blood pressure seems to be uncontrolled. Systolic blood pressure up in the 170s. Increase the dose of lisinopril to 40 mg by mouth daily. Continue Coreg and amlodipine 10 mg by mouth daily. 2/4 continue Coreg, amlodipine and lisinopril. Blood pressure now stable. GI prophylaxis: Continue PPI DVT prophylaxis: Heparin subcutaneously, SCDs Discharge Planning Possible discharge in a.m. Problem Qualifiers (1) Alcohol withdrawal: Qualified Code: F10.230 - Alcohol withdrawal, uncomplicated (2) Alcohol dependence: Todd Acuña MD Sep 16, 2016 15:27
[2016-09-16 16:08] VITALS: BP_SYST 158; BP_SYST 161; BP_DIAS 100; BP_DIAS 99; PULSE 78; RESP 20; TEMP 98.1; O2SAT 94
[2016-09-17] VITALS (8 sets, daily range): BP systolic 126–168; BP diastolic 60–98; PULSE 73–82; RESP 17–22; TEMP 97.4–98.5; O2SAT 93–97
[2016-09-17] MEDS: HEPARIN SODIUM - SQ 10,000 UNITS/ML VIAL SQ SCH ×3 (00:54→17:24)
[2016-09-17] MEDS: LORazepam 2 MG/ML VIAL IV PUSH PRN ×8 (00:55→21:41)
[2016-09-17] MEDS: MORPHINE SULFATE 4 MG/ML INJ IV PUSH PRN ×5 (00:55→21:34)
[2016-09-17] MEDS: SODIUM CHLOR 0.9% 1000 ML INJ 1,000 ML IV SCH ×2 (05:17→09:21)
[2016-09-17] MEDS: PANTOPRAZOLE SOD 40 MG DELAYED RELEASE TAB PO SCH (09:18)
[2016-09-17] MEDS: DILTIAZEM HCL 90 MG TAB PO SCH ×4 (09:18→21:34)
[2016-09-17] MEDS: THIAMINE HCL 100 MG TAB PO SCH (09:19)
[2016-09-17] MEDS: LISINOPRIL 20 MG TAB PO SCH (09:19)
[2016-09-17] MEDS: DOCUSATE SODIUM 100 MG CAP PO SCH ×2 (09:19→19:43)
[2016-09-17] MEDS: ASPIRIN EC 81 MG TABEC PO SCH (09:19)
[2016-09-17] MEDS: CARVEDILOL 6.25 MG TAB PO SCH ×2 (09:19→19:43)
[2016-09-17] MEDS: SODIUM CHLORIDE 0.9% FLUSH 5 ML FLUSH FLUSH SCH ×2 (09:20→19:43)
[2016-09-17 09:41] LABS: AUTOMATED NEUTROPHIL # 2.8 TH/MM3 (1.8-7.7); BASOPHIL % 0.8 % (0.0-2.0); EOSINOPHIL # 0.1 TH/MM3 (0-0.4); EOSINOPHIL % 3.3 % (0.0-4.0); HEMATOCRIT 43.8 % (39.0-51.0); HEMO FLAGS DIFF FINAL; LYMPH % 18.1 % (9.0-44.0); LYMPHOCYTE # 0.8 TH/MM3 (1.0-4.8); MEAN CELL VOLUME 96.8 FL (80.0-100.0); MEAN CORPUSCULAR HGB CONC 34.1 % (32.0-36.0); MONO % 14.1 % (0.0-8.0); NEUT % 63.7 % (16.0-70.0); PLATELET COUNT 127 TH/MM3 (150-450); RED BLOOD COUNT 4.52 MIL/MM3 (4.50-5.90); RED CELL DISTRIBUTION WIDTH 13.8 % (11.6-17.2); WHITE BLOOD COUNT 4.4 TH/MM3 (4.0-11.0)
[2016-09-17 10:16] LABS: ALKALINE PHOSPHATASE 46 U/L (45-117); ALT (GPT) 92 U/L (12-78); ANION GAP 8 MEQ/L (5-15); AST (GOT) 129 U/L (15-37); BICARBONATE 25.2 MEQ/L (21.0-32.0); BLOOD UREA NITROGEN 11 MG/DL (7-18); CHLORIDE 106 MEQ/L (98-107); GLOMERULAR FILTRATION RATE 102 ML/MIN (>89); POTASSIUM 3.7 MEQ/L (3.5-5.1); SODIUM (NA) 139 MEQ/L (136-145); TOTAL BILIRUBIN ADULT 0.6 MG/DL (0.2-1.0)
--- NOTE | 2016-09-17 17:36 | HHI.PR ---
Subjective Remarks Bp very elevated tremors still present but improving patient still requiring IV ativan patient c/o cough and productive sputum production denies cp/sob denies fevers or chills denies hallucinations Objective Vitals Vital Signs Date Time Temp Pulse Resp B/P Pulse Ox O2 Delivery O2 Flow Rate FiO2 09/17/16 16:05 97.9 74 19 166/95 96 09/17/16 12:17 98.0 82 22 168/80 96 09/17/16 09:37 Room Air 09/17/16 08:23 98.5 78 19 150/98 93 09/17/16 04:00 97.4 78 18 138/92 95 09/17/16 00:00 98.2 74 17 126/69 95 09/16/16 21:00 Room Air I/O 09/16/16 09/16/16 09/16/16 09/17/16 09/17/16 09/17/16 07:00 15:00 23:00 07:00 15:00 23:00 Intake Total 240 ml 840 ml 2880 ml 180 ml 360 ml Output Total 325 ml 1375 ml 2400 ml 125 ml 700 ml Balance -85 ml -535 ml 480 ml 55 ml -340 ml Intake Oral 240 ml 840 ml 2880 ml 180 ml 360 ml Output Urine Total 325 ml 1375 ml 2400 ml 125 ml 700 ml # Bowel Movements 1 0 Result Diagram: 09/17/1602 09/17/1602 Imaging Last Impressions Chest X-Ray 09/14/16818 Signed Impressions: Service Date/Time: September 08:33 - CONCLUSION: No acute disease. Slight sclerosis of the anterior left fourth rib could be healing rib fracture in the right clinical setting. Kevin Polanco MD Pelvis CT 09/14/16 Signed Impressions: Service Date/Time: September 11:59 - CONCLUSION: 1. There is no evidence of acute fracture. Aaron Way MD Lumbar Spine CT 09/14/16 Signed Impressions: Service Date/Time: September 11:59 - CONCLUSION: 1. There is no evidence of acute fracture. 2. Multilevel degenerative disc disease without stenosis with multilevel foraminal narrowing as above Aaron Way MD Hip and Pelvis X-Ray 2/2/17 0000 Signed Impressions: Service Date/Time: September 10:51 - CONCLUSION: 1. There is no evidence of acute fracture. Aaron Way MD Objective Remarks GENERAL: This is a well-nourished, well-developed patient, in no apparent distress. SKIN: No rashes, ecchymoses or lesions. Cool and dry. HEAD: Atraumatic. Normocephalic. No temporal or scalp tenderness. EYES: Pupils equal round and reactive. Extraocular motions intact. No scleral icterus. No injection or drainage. ENT: Nose without bleeding, purulent drainage or septal hematoma. Throat without erythema, tonsillar hypertrophy or exudate. Uvula midline. Airway patent. Wheezing auscultated coming from upper airway. No wheezing in lungs. NECK: Trachea midline. No JVD or lymphadenopathy. Supple, nontender, no meningeal signs. CARDIOVASCULAR: Regular rate and rhythm without murmurs, gallops, or rubs. RESPIRATORY: Coarse rhonchi bilaterally. Breath sounds equal bilaterally. No wheezes or rales auscultated. GASTROINTESTINAL: Abdomen soft, non-tender, nondistended. No hepato-splenomegaly , or palpable masses. No guarding. MUSCULOSKELETAL: Extremities without clubbing, cyanosis, or edema. No joint tenderness, effusion, or edema noted. No calf tenderness. Negative Homans sign bilaterally. NEUROLOGICAL: Awake and alert. Cranial nerves II through XII intact. Motor and sensory grossly within normal limits. Five out of 5 muscle strength in all muscle groups. Normal speech. Tremors in upper extremities much improved. Medications and IVs Current Medications Medications (Trade) Dose Ordered Sig/Candy Route Start Time Stop Time Status Last Admin (Romazicon Inj) 0.2 mg Q1M PRN IV PUSH 09/14/16 11:30 (Ativan) 1 mg Q4H PRN PO 09/14/16 11:30 09/15/16 14:44 (Ativan Inj) 1 mg Q4H PRN IV PUSH 09/14/16 11:30 (Ativan) 2 mg Q2H PRN PO 09/14/16 11:30 09/15/16 12:23 (Ativan Inj) 2 mg Q2H PRN IV PUSH 09/14/16 11:30 09/17/16 17:24 (Ativan Inj) 2 mg Q1H PRN IV PUSH 09/14/16 11:30 09/14/16 21:05 (Ativan Inj) 2 mg Q15M PRN IV PUSH 09/14/16 11:30 (Catapres) 0.1 mg Q6H PRN PO 09/14/16 15:15 09/14/16 15:29 (Norvasc) 10 mg DAILY PO 09/14/16 15:30 09/17/16 09:19 (Ecotrin Ec) 162 mg DAILY PO 09/15/16 09:00 09/17/16 09:19 (Coreg) 6.25 mg Q12HR PO 09/14/16 21:00 09/17/16 09:19 (Cardizem) 90 mg QID PO 09/14/16 18:00 09/17/16 17:24 (Vitamin B1) 100 mg DAILY PO 09/15/16 09:00 09/17/16 09:19 (NS Flush) 2 ml UNSCH PRN FLUSH 09/14/16 17:30 (NS Flush) 2 ml BID FLUSH 09/14/16 21:00 09/17/16 09:20 (Tylenol) 650 mg Q4H PRN PO 09/14/16 17:30 (Zofran Inj) 4 mg Q6H PRN IVP 09/14/16 17:30 (Heparin Inj) 5,000 units Q8H SQ 09/14/16 18:00 09/16/16 17:18 (Morphine Inj) 2 mg Q4H PRN IV PUSH 09/14/16 21:00 09/17/16 17:24 (Protonix) 40 mg DAILY PO 09/15/16 09:00 09/17/16 09:18 (Prinivil) 40 mg DAILY PO 09/16/16 09:00 09/17/16 09:19 (Carrington 5-325 Mg) 1 tab Q4H PRN PO 09/15/16 20:00 (Carrington 5-325 Mg) 2 tab Q4H PRN PO 09/15/16 20:00 (Colace) 100 mg BID PO 09/15/16 21:00 09/17/16 09:19 (Cardura) 2 mg HS PO 09/17/16 21:00 Urinary Catheter: No Vascular Central Line Catheter: No A/P Problem List: (1) Alcohol withdrawal ICD Code: F10.239 Status: Acute (2) Alcohol dependence ICD Code: F10.20 Status: Chronic (3) Chest pain ICD Code: R07.9 Status: Resolved (4) Left hip pain ICD Code: M25.552 Status: Acute (5) A-fib ICD Code: I48.91 Status: Chronic (6) HTN (hypertension) ICD Code: I10 Status: Chronic (7) Cough ICD Code: R05 Status: Acute Plan: Patient c/o cough with clear sputum. Patient also has audible wheeze coming from upper airway. likely due to bronchitis. Check CXR and will place the patient on duoneb treatments. Assessment and Plan (1) Alcohol withdrawal Plan: Patient was admitted to the medical floor Continue to monitor on telemetry Continue IV fluids By mouth thiamine and folic acid Continue CIWA protocol Patient is still requiring several doses of IV Ativan. (2) Alcohol dependence Plan: Advised on alcohol cessation. Case management to assist in providing formation to the patient. (3) Chest pain Plan: Atypical chest pain. Possibly due to fall and trauma since there is tenderness to palpation. Possibly healing rib fracture. Troponins negative 3. ACS ruled out. Monitor on telemetry, monitor serial enzymes and check EKG in a.m. and as needed for chest pain. Chest x-ray as above and reviewed by me no acute disease. Slight sclerosis of the anterior left fourth rib where it is that patient complains of pain. Continue pain control with IV morphine and oral Carrington. 2/5 chest pain much imrpoved. continue pain control as above. (4) Left hip pain Plan: Hip and pelvis x-ray without evidence of fracture. CT of the lumbar spine does not show any acute fracture. There is multilevel degenerative disc disease without stenosis with multilevel foraminal narrowing. Appreciate physical therapy evaluation and effort. The patient will need rehabilitation. Left hip pain improved. Continue pain control with oral Carrington. (5) A-fib Plan: EKG reviewed by me shows sinus tachycardia with nonspecific T-wave abnormalities however no ST-T changes elevations or depressions suggestive of active ischemia. Patient now in sinus rhythm. Continue carvedilol and Cardizem for rate control. (6) HTN (hypertension) Plan: Blood pressure seems to be uncontrolled. Systolic blood pressure up in the 170s. Increase the dose of lisinopril to 40 mg by mouth daily. Continue Coreg and amlodipine 10 mg by mouth daily. 2/4 continue Coreg, amlodipine and lisinopril. Blood pressure now stable. 2/5 Blood pressure uncontrolled today. SBP in the 160's. I will start Cardura 2 mg po at bedtime. GI prophylaxis: Continue PPI DVT prophylaxis: Heparin subcutaneously, SCDs Discharge Planning Pending clinical improvement. Patient still requiring Ativan, uncontrolled BP. PT recommends rehab. Problem Qualifiers (1) Alcohol withdrawal: Qualified Code: F10.230 - Alcohol withdrawal, uncomplicated (2) Alcohol dependence: Todd Acuña MD Sep 17, 2016 17:36
[2016-09-17] MEDS: DOXAZOSIN MESYLATE 2 MG TAB PO SCH (19:43)
[2016-09-17] MEDS: RESP: ALBUTEROL 2.5 MG/IPRATROPIUM 0.5 MG NEB (SCH) NEB (22:29)
[2016-09-18] VITALS (7 sets, daily range): BP systolic 122–165; BP diastolic 70–102; PULSE 69–85; RESP 16–20; TEMP 97.3–98.2; O2SAT 92–96
[2016-09-18] MEDS: LORazepam 2 MG/ML VIAL IV PUSH PRN (00:12)
[2016-09-18] MEDS: HEPARIN SODIUM - SQ 10,000 UNITS/ML VIAL SQ SCH ×3 (02:00→18:08)
[2016-09-18] MEDS: RESP: ALBUTEROL 2.5 MG/IPRATROPIUM 0.5 MG NEB (SCH) NEB ×3 (07:38→19:55)
[2016-09-18] MEDS: SODIUM CHLORIDE 0.9% FLUSH 5 ML FLUSH FLUSH SCH ×2 (09:00→20:37)
[2016-09-18] MEDS: MORPHINE SULFATE 4 MG/ML INJ IV PUSH PRN ×4 (09:40→21:58)
[2016-09-18] MEDS: THIAMINE HCL 100 MG TAB PO SCH (09:41)
[2016-09-18] MEDS: CARVEDILOL 6.25 MG TAB PO SCH ×2 (09:41→20:38)
[2016-09-18] MEDS: DILTIAZEM HCL 90 MG TAB PO SCH ×4 (09:41→20:38)
[2016-09-18] MEDS: PANTOPRAZOLE SOD 40 MG DELAYED RELEASE TAB PO SCH (09:41)
[2016-09-18] MEDS: ASPIRIN EC 81 MG TABEC PO SCH (09:41)
[2016-09-18] MEDS: LISINOPRIL 20 MG TAB PO SCH (09:41)
[2016-09-18] MEDS: DOCUSATE SODIUM 100 MG CAP PO SCH ×3 (09:41→20:39)
[2016-09-18] MEDS: LORazepam 1 MG TAB PO PRN ×4 (09:52→21:59)
[2016-09-18] MEDS ORDERED: BISACODYL 10 MG SUPP PR PRN (10:15)
[2016-09-18] MEDS ORDERED: DOCUSATE SODIUM 50 MG/SENNA 8.6 MG TAB PO PRN (10:15)
[2016-09-18] MEDS ORDERED: LACTULOSE SYRUP 20 GM/30 ML CUP PO PRN (10:15)
--- NOTE | 2016-09-18 10:34 | HHI.PR ---
Subjective Remarks Patient in bed with fine tremors. Says he feels feels jittery and he has tremors. He is eating. No nausea, vomiting, diarrhea or constipation. Alert and oriented Objective Vitals Vital Signs Date Time Temp Pulse Resp B/P Pulse Ox O2 Delivery O2 Flow Rate FiO2 09/18/16 09:04 Room Air 2.00 09/18/16 04:38 97.3 73 16 145/85 92 09/18/16 00:07 98.2 83 18 147/102 94 09/17/16 20:30 Room Air 09/17/16 20:12 97.8 82 20 126/60 97 09/17/16 20:00 75 09/17/16 16:05 97.9 74 19 166/95 96 09/17/16 12:17 98.0 82 22 168/80 96 I/O 09/17/16 09/17/16 09/17/16 09/18/16 09/18/16 09/18/16 07:00 15:00 23:00 07:00 15:00 23:00 Intake Total 180 ml 360 ml 480 ml Output Total 125 ml 700 ml 300 ml Balance 55 ml -340 ml 180 ml Intake Oral 180 ml 360 ml 480 ml Output Urine Total 125 ml 700 ml 300 ml # Voids 2 # Bowel Movements 0 Result Diagram: 09/17/1602 09/17/16901 Imaging Last Impressions Chest X-Ray 09/14/16818 Signed Impressions: Service Date/Time: September 08:33 - CONCLUSION: No acute disease. Slight sclerosis of the anterior left fourth rib could be healing rib fracture in the right clinical setting. Kevin Polanco MD Pelvis CT 09/14/16 Signed Impressions: Service Date/Time: September 11:59 - CONCLUSION: 1. There is no evidence of acute fracture. Aaron Way MD Lumbar Spine CT 09/14/16 Signed Impressions: Service Date/Time: September 11:59 - CONCLUSION: 1. There is no evidence of acute fracture. 2. Multilevel degenerative disc disease without stenosis with multilevel foraminal narrowing as above Aaron Way MD Hip and Pelvis X-Ray 09/14/16 Signed Impressions: Service Date/Time: September 10:51 - CONCLUSION: 1. There is no evidence of acute fracture. Aaron Way MD Objective Remarks GENERAL: This is a well-nourished, well-developed patient, in no apparent distress. SKIN: No rashes, ecchymoses or lesions. Cool and dry. HEAD: Atraumatic. Normocephalic. No temporal or scalp tenderness. EYES: Pupils equal round and reactive. Extraocular motions intact. No scleral icterus. No injection or drainage. ENT: Nose without bleeding, purulent drainage or septal hematoma. Throat without erythema, tonsillar hypertrophy or exudate. Uvula midline. Airway patent. Wheezing auscultated coming from upper airway. No wheezing in lungs. NECK: Trachea midline. No JVD or lymphadenopathy. Supple, nontender, no meningeal signs. CARDIOVASCULAR: Regular rate and rhythm without murmurs, gallops, or rubs. RESPIRATORY: Coarse rhonchi bilaterally. Breath sounds equal bilaterally. No wheezes or rales auscultated. GASTROINTESTINAL: Abdomen soft, non-tender, nondistended. No hepato-splenomegaly , or palpable masses. No guarding. MUSCULOSKELETAL: Extremities without clubbing, cyanosis, or edema. No joint tenderness, effusion, or edema noted. No calf tenderness. Negative Homans sign bilaterally. NEUROLOGICAL: Awake and alert. Cranial nerves II through XII intact. Motor and sensory grossly within normal limits. Five out of 5 muscle strength in all muscle groups. Normal speech. Tremors in upper extremities much improved. A/P Problem List: (1) Alcohol withdrawal ICD Code: F10.239 Status: Acute (2) Alcohol dependence ICD Code: F10.20 Status: Chronic (3) Chest pain ICD Code: R07.9 Status: Resolved (4) Left hip pain ICD Code: M25.552 Status: Acute (5) A-fib ICD Code: I48.91 Status: Chronic (6) HTN (hypertension) ICD Code: I10 Status: Chronic (7) Cough ICD Code: R05 Status: Acute Assessment and Plan Assessment and Plan (1) Alcohol withdrawal Plan: Patient was admitted to the medical floor Continue to monitor on telemetry Continue IV fluids By mouth thiamine and folic acid Continue CIWA protocol Patient is still requiring several doses of IV Ativan. (2) Alcohol dependence Plan: Advised on alcohol cessation. Case management to assist in providing formation to the patient. (3) Chest pain Plan: Atypical chest pain. Possibly due to fall and trauma since there is tenderness to palpation. Possibly healing rib fracture. Troponins negative 3. ACS ruled out. Monitor on telemetry, monitor serial enzymes and check EKG in a.m. and as needed for chest pain. Chest x-ray as above and reviewed by me no acute disease. Slight sclerosis of the anterior left fourth rib where it is that patient complains of pain. Continue pain control with IV morphine and oral [place]. 2/5 chest pain much imrpoved. continue pain control as above. (4) Left hip pain Plan: Hip and pelvis x-ray without evidence of fracture. CT of the lumbar spine does not show any acute fracture. There is multilevel degenerative disc disease without stenosis with multilevel foraminal narrowing. Appreciate physical therapy evaluation and effort. The patient will need rehabilitation. Left hip pain improved. Continue pain control with oral [place]. (5) A-fib Plan: EKG reviewed by me shows sinus tachycardia with nonspecific T-wave abnormalities however no ST-T changes elevations or depressions suggestive of active ischemia. Patient now in sinus rhythm. Continue carvedilol and Cardizem for rate control. (6) HTN (hypertension) Plan: Blood pressure seems to be uncontrolled. Systolic blood pressure up in the 170s. Increase the dose of lisinopril to 40 mg by mouth daily. Continue Coreg and amlodipine 10 mg by mouth daily. 2/4 continue Coreg, amlodipine and lisinopril. Blood pressure now stable. 2/5 Blood pressure uncontrolled today. SBP in the 160's. I will start Cardura 2 mg po at bedtime. (7) Cough ICD Code: R05 Status: Acute Plan: Patient c/o cough with clear sputum. Patient also has audible wheeze coming from upper airway. likely due to bronchitis. Check CXR and will place the patient on duoneb treatments. Constipation> Laxatives/stool softeners GI prophylaxis: Continue PPI DVT prophylaxis: Heparin subcutaneously, SCDs Discharge Planning Pending clinical improvement. Patient still requiring Ativan, uncontrolled BP. PT recommends rehab. Consult case management for discharge planning Problem Qualifiers (1) Alcohol withdrawal: Qualified Code: F10.230 - Alcohol withdrawal, uncomplicated (2) Alcohol dependence: Carlota Story MD Sep 18, 2016 10:08
[2016-09-18] MEDS: DOXAZOSIN MESYLATE 2 MG TAB PO SCH (20:37)
[2016-09-19] VITALS: BP 118/89; PULSE 69; RESP 16; TEMP 97.8; O2SAT 95
[2016-09-19] MEDS: HEPARIN SODIUM - SQ 10,000 UNITS/ML VIAL SQ SCH ×3 (02:00→17:28)
[2016-09-19] MEDS: LORazepam 1 MG TAB PO PRN ×4 (02:07→15:39)
[2016-09-19] MEDS: MORPHINE SULFATE 4 MG/ML INJ IV PUSH PRN ×4 (02:07→15:36)
[2016-09-19 04:00] VITALS: BP 126/80; PULSE 78; RESP 18; TEMP 97.8; O2SAT 95
[2016-09-19 06:27] LABS: AUTOMATED NEUTROPHIL # 3.6 TH/MM3 (1.8-7.7); BASOPHIL % 0.6 % (0.0-2.0); EOSINOPHIL # 0.1 TH/MM3 (0-0.4); EOSINOPHIL % 2.5 % (0.0-4.0); HEMATOCRIT 42.5 % (39.0-51.0); HEMO FLAGS DIFF FINAL; LYMPH % 20.6 % (9.0-44.0); LYMPHOCYTE # 1.2 TH/MM3 (1.0-4.8); MEAN CELL VOLUME 98.1 FL (80.0-100.0); MEAN CORPUSCULAR HEMOGLOBIN 33.1 PG (27.0-34.0); MEAN CORPUSCULAR HGB CONC 33.7 % (32.0-36.0); MONO % 13.3 % (0.0-8.0); PLATELET COUNT 123 TH/MM3 (150-450); RED BLOOD COUNT 4.33 MIL/MM3 (4.50-5.90); RED CELL DISTRIBUTION WIDTH 14.4 % (11.6-17.2); WHITE BLOOD COUNT 5.7 TH/MM3 (4.0-11.0)
[2016-09-19 06:58] LABS: BICARBONATE 26.8 MEQ/L (21.0-32.0); INDIRECT BILIRUBIN 0.4 MG/DL (0.0-0.8); POTASSIUM 3.6 MEQ/L (3.5-5.1); TOTAL BILIRUBIN ADULT 0.5 MG/DL (0.2-1.0)
[2016-09-19] MEDS: DOCUSATE SODIUM 100 MG CAP PO SCH (07:46)
[2016-09-19] MEDS: CARVEDILOL 6.25 MG TAB PO SCH (07:46)
[2016-09-19] MEDS: SODIUM CHLORIDE 0.9% FLUSH 5 ML FLUSH FLUSH SCH (07:47)
[2016-09-19] MEDS: LISINOPRIL 20 MG TAB PO SCH (07:47)
[2016-09-19] MEDS: ASPIRIN EC 81 MG TABEC PO SCH (07:47)
[2016-09-19] MEDS: PANTOPRAZOLE SOD 40 MG DELAYED RELEASE TAB PO SCH (07:47)
[2016-09-19] MEDS: DILTIAZEM HCL 90 MG TAB PO SCH ×3 (07:47→17:27)
[2016-09-19] MEDS: THIAMINE HCL 100 MG TAB PO SCH (07:47)
[2016-09-19 08:00] VITALS: BP 144/68; PULSE 80; RESP 20; TEMP 98; O2SAT 93
[2016-09-19] MEDS: RESP: ALBUTEROL 2.5 MG/IPRATROPIUM 0.5 MG NEB (SCH) NEB ×2 (08:00→13:32)
[2016-09-19 08:03] VITALS: PULSE 69
[2016-09-19 12:00] VITALS: BP 152/95; PULSE 80; RESP 18; TEMP 98; O2SAT 97
--- NOTE | 2016-09-19 16:12 | HHI.PR ---
Subjective Remarks Seen earlier today. Patient says he has tremors at times. Feels tired. No n/v/d/c. No seizures. BP is better controlled. Might DC later today if BP stable. Objective Vitals Vital Signs Date Time Temp Pulse Resp B/P Pulse Ox O2 Delivery O2 Flow Rate FiO2 09/19/16 12:00 98.0 80 18 152/95 97 09/19/16 10:10 Room Air 09/19/16 08:03 69 09/19/16 08:00 98.0 80 20 144/68 93 09/19/16 04:00 97.8 78 18 126/80 95 09/19/16 00:00 97.8 69 16 118/89 95 09/18/16 20:00 73 09/18/16 20:00 97.8 84 18 165/76 96 09/18/16 20:00 Room Air I/O 09/18/16 09/18/16 09/18/16 09/19/16 09/19/16 09/19/16 07:00 15:00 23:00 07:00 15:00 23:00 Intake Total 360 ml 482 ml 244 ml Balance 360 ml 482 ml 244 ml Intake Oral 360 ml 480 ml 240 ml IV Total 2 ml 4 ml # Voids 2 3 4 3 # Bowel Movements 0 0 0 Result Diagram: 09/19/1615 09/19/16514 Imaging Last Impressions Chest X-Ray 09/14/16818 Signed Impressions: Service Date/Time: September 08:33 - CONCLUSION: No acute disease. Slight sclerosis of the anterior left fourth rib could be healing rib fracture in the right clinical setting. Kevin Polanco MD Pelvis CT 09/14/16 Signed Impressions: Service Date/Time: September 11:59 - CONCLUSION: 1. There is no evidence of acute fracture. Aaron Way MD Lumbar Spine CT 09/14/16 Signed Impressions: Service Date/Time: September 11:59 - CONCLUSION: 1. There is no evidence of acute fracture. 2. Multilevel degenerative disc disease without stenosis with multilevel foraminal narrowing as above Aaron Way MD Hip and Pelvis X-Ray 09/14/16 Signed Impressions: Service Date/Time: September 10:51 - CONCLUSION: 1. There is no evidence of acute fracture. Aaron Way MD Objective Remarks GENERAL: This is a well-nourished, well-developed patient, in no apparent distress. SKIN: No rashes, ecchymoses or lesions. Cool and dry. HEAD: Atraumatic. Normocephalic. No temporal or scalp tenderness. EYES: Pupils equal round and reactive. Extraocular motions intact. No scleral icterus. No injection or drainage. ENT: Nose without bleeding, purulent drainage or septal hematoma. Throat without erythema, tonsillar hypertrophy or exudate. Uvula midline. Airway patent. Wheezing auscultated coming from upper airway. No wheezing in lungs. NECK: Trachea midline. No JVD or lymphadenopathy. Supple, nontender, no meningeal signs. CARDIOVASCULAR: Regular rate and rhythm without murmurs, gallops, or rubs. RESPIRATORY: Coarse rhonchi bilaterally. Breath sounds equal bilaterally. No wheezes or rales auscultated. GASTROINTESTINAL: Abdomen soft, non-tender, nondistended. No hepato-splenomegaly , or palpable masses. No guarding. MUSCULOSKELETAL: Extremities without clubbing, cyanosis, or edema. No joint tenderness, effusion, or edema noted. No calf tenderness. Negative Homans sign bilaterally. NEUROLOGICAL: Awake and alert. Cranial nerves II through XII intact. Motor and sensory grossly within normal limits. Five out of 5 muscle strength in all muscle groups. Normal speech. Tremors in upper extremities much improved. A/P Problem List: (1) Alcohol withdrawal ICD Code: F10.239 Status: Acute (2) Alcohol dependence ICD Code: F10.20 Status: Chronic (3) Chest pain ICD Code: R07.9 Status: Resolved (4) Left hip pain ICD Code: M25.552 Status: Acute (5) A-fib ICD Code: I48.91 Status: Chronic (6) HTN (hypertension) ICD Code: I10 Status: Chronic (7) Cough ICD Code: R05 Status: Acute Assessment and Plan Assessment and Plan (1) Alcohol withdrawal Plan: Patient was admitted to the medical floor Continue to monitor on telemetry Continue IV fluids By mouth thiamine and folic acid Continue CIWA protocol (2) Alcohol dependence Plan: Advised on alcohol cessation. Case management to assist in providing formation to the patient. (3) Chest pain Plan: Atypical chest pain. Possibly due to fall and trauma since there is tenderness to palpation. Possibly healing rib fracture. Troponins negative 3. ACS ruled out. Monitor on telemetry, monitor serial enzymes and check EKG in a.m. and as needed for chest pain. Chest x-ray as above and reviewed by me no acute disease. Slight sclerosis of the anterior left fourth rib where it is that patient complains of pain. Continue pain control with IV morphine and oral [place]. 2/5 chest pain much imrpoved. continue pain control as above. (4) Left hip pain Plan: Hip and pelvis x-ray without evidence of fracture. CT of the lumbar spine does not show any acute fracture. There is multilevel degenerative disc disease without stenosis with multilevel foraminal narrowing. Appreciate physical therapy evaluation and effort. The patient will need rehabilitation. Left hip pain improved. Continue pain control with oral [place]. (5) A-fib Plan: EKG reviewed by me shows sinus tachycardia with nonspecific T-wave abnormalities however no ST-T changes elevations or depressions suggestive of active ischemia. Patient now in sinus rhythm. Continue carvedilol and Cardizem for rate control. (6) HTN (hypertension) Plan: Blood pressure seems to be uncontrolled. Systolic blood pressure up in the 170s. Increase the dose of lisinopril to 40 mg by mouth daily. Continue Coreg and amlodipine 10 mg by mouth daily. 2/4 continue Coreg, amlodipine and lisinopril. Blood pressure now stable. 2/5 Blood pressure uncontrolled today. SBP in the 160's. I will start Cardura 2 mg po at bedtime. (7) Cough ICD Code: R05 Status: Acute Plan: Patient c/o cough with clear sputum. Patient also has audible wheeze coming from upper airway. likely due to bronchitis. Check CXR and will place the patient on duoneb treatments. Constipation> Laxatives/stool softeners GI prophylaxis: Continue PPI DVT prophylaxis: Heparin subcutaneously, SCDs Discharge Planning Pending clinical improvement. Patient still requiring Ativan, uncontrolled BP. PT recommends rehab. Consult case management for discharge planning Problem Qualifiers (1) Alcohol withdrawal: Qualified Code: F10.230 - Alcohol withdrawal, uncomplicated (2) Alcohol dependence: Carlota Story MD Sep 19, 2016 16:12
--- NOTE | 2016-09-19 16:16 | HHI.DS ---
Discharge Summary Admission Date Sep 14, 2016 at 12:23 Discharge Date: Sep 19, 2016 Admitting Diagnosis acute alcohol withdrawl (1) Alcohol withdrawal ICD Code: F10.239 Diagnosis: Principal (2) Alcohol dependence ICD Code: F10.20 Diagnosis: Secondary (3) Chest pain ICD Code: R07.9 Diagnosis: Principal (4) Left hip pain ICD Code: M25.552 Diagnosis: Secondary (5) A-fib ICD Code: I48.91 Diagnosis: Secondary (6) HTN (hypertension) ICD Code: I10 Diagnosis: Secondary (7) Cough ICD Code: R05 Procedures none Brief History - From Admission This is a 61-year-old male with past medical history of alcohol abuse and alcoholism and previous alcohol withdrawal seizures who presents to [facility] complaining of chest pain. The patient states that this morning he had some pressure like chest pain which was nonradiating, severe and rated as 10/10. Patient states that the pain is constant for the past 2 days. Also complains of nausea, dyspnea on exertion, palpitations. Patient is noted to be hypertensive. The patient also states that today he had some left hip pain and his legs gave out. The patient states that he fell over his left side and possibly hit his head although he doesn't remember that well. Patient states that the pain is worst when he takes deep breaths and when he palpates the area. Patient was seen in the emergency department and noted to have some tremors and signs and symptoms consistent with alcohol withdrawal. The patient states that his last drink was on the last evening. The patient denies abdominal pain, diarrhea, dysuria. CBC/BMP: 09/19/16 0515 09/19/16 0515 Significant Findings Laboratory Tests Test 09/17/16 09/19/16 09:02 05:15 Platelet Count 127 TH/MM3 123 TH/MM3 (150-450) (150-450) Monocytes (%) (Auto) 14.1 % 13.3 % (0.0-8.0) (0.0-8.0) Lymphocytes # (Auto) 0.8 TH/MM3 (1.0-4.8) Calcium Level 8.3 MG/DL 8.3 MG/DL (8.5-10.1) (8.5-10.1) Aspartate Amino Transf 129 U/L (15-37) 87 U/L (15-37) (AST/SGOT) Alanine Aminotransferase 92 U/L (12-78) 92 U/L (12-78) (ALT/SGPT) Albumin 3.3 GM/DL (3.4-5.0) Red Blood Count 4.33 MIL/MM3 (4.50-5.90) Estimat Glomerular Filtration 74 ML/MIN (>89) Rate Random Glucose 141 MG/DL (74-106) Alkaline Phosphatase 44 U/L (45-117) Imaging Last Impressions Chest X-Ray 09/14/16 0819 Signed Impressions: Service Date/Time: September 08:33 - CONCLUSION: No acute disease. Slight sclerosis of the anterior left fourth rib could be healing rib fracture in the right clinical setting. Kevin Polanco MD Pelvis CT 09/14/16 Signed Impressions: Service Date/Time: September 11:59 - CONCLUSION: 1. There is no evidence of acute fracture. Aaron Way MD Lumbar Spine CT 09/14/16 0000 Signed Impressions: Service Date/Time: September 11:59 - CONCLUSION: 1. There is no evidence of acute fracture. 2. Multilevel degenerative disc disease without stenosis with multilevel foraminal narrowing as above Aaron Way MD Hip and Pelvis X-Ray 09/14/16 Signed Impressions: Service Date/Time: September 10:51 - CONCLUSION: 1. There is no evidence of acute fracture. Aaron Way MD PE at Discharge GENERAL: This is a well-nourished, well-developed patient, in no apparent distress. SKIN: No rashes, ecchymoses or lesions. Cool and dry. HEAD: Atraumatic. Normocephalic. No temporal or scalp tenderness. EYES: Pupils equal round and reactive. Extraocular motions intact. No scleral icterus. No injection or drainage. ENT: Nose without bleeding, purulent drainage or septal hematoma. Throat without erythema, tonsillar hypertrophy or exudate. Uvula midline. Airway patent. Wheezing auscultated coming from upper airway. No wheezing in lungs. NECK: Trachea midline. No JVD or lymphadenopathy. Supple, nontender, no meningeal signs. CARDIOVASCULAR: Regular rate and rhythm without murmurs, gallops, or rubs. RESPIRATORY: Coarse rhonchi bilaterally. Breath sounds equal bilaterally. No wheezes or rales auscultated. GASTROINTESTINAL: Abdomen soft, non-tender, nondistended. No hepato-splenomegaly , or palpable masses. No guarding. MUSCULOSKELETAL: Extremities without clubbing, cyanosis, or edema. No joint tenderness, effusion, or edema noted. No calf tenderness. Negative Homans sign bilaterally. NEUROLOGICAL: Awake and alert. Cranial nerves II through XII intact. Motor and sensory grossly within normal limits. Five out of 5 muscle strength in all muscle groups. Normal speech. Tremors in upper extremities much improved. Hospital Course (1) Alcohol withdrawal Plan: Patient was admitted to the medical floor Continue to monitor on telemetry Continue IV fluids By mouth thiamine and folic acid Continue CIWA protocol (2) Alcohol dependence Plan: Advised on alcohol cessation. Case management to assist in providing formation to the patient. (3) Chest pain Plan: Atypical chest pain. Possibly due to fall and trauma since there is tenderness to palpation. Possibly healing rib fracture. Troponins negative 3. ACS ruled out. Monitor on telemetry, monitor serial enzymes and check EKG in a.m. and as needed for chest pain. Chest x-ray as above and reviewed by me no acute disease. Slight sclerosis of the anterior left fourth rib where it is that patient complains of pain. Continue pain control with IV morphine and oral [place]. 2/5 chest pain much imrpoved. continue pain control as above. (4) Left hip pain Plan: Hip and pelvis x-ray without evidence of fracture. CT of the lumbar spine does not show any acute fracture. There is multilevel degenerative disc disease without stenosis with multilevel foraminal narrowing. Appreciate physical therapy evaluation and effort. The patient will need rehabilitation. Left hip pain improved. Continue pain control with oral [place]. (5) A-fib Plan: EKG reviewed by me shows sinus tachycardia with nonspecific T-wave abnormalities however no ST-T changes elevations or depressions suggestive of active ischemia. Patient now in sinus rhythm. Continue carvedilol and Cardizem for rate control. (6) HTN (hypertension) Plan: Blood pressure seems to be uncontrolled. Systolic blood pressure up in the 170s. Increase the dose of lisinopril to 40 mg by mouth daily. Continue Coreg and amlodipine 10 mg by mouth daily. 2/4 continue Coreg, amlodipine and lisinopril. Blood pressure now stable. 2/5 Blood pressure uncontrolled today. SBP in the 160's. I will start Cardura 2 mg po at bedtime. (7) Cough ICD Code: R05 Status: Acute Plan: Patient c/o cough with clear sputum. Patient also has audible wheeze coming from upper airway. likely due to bronchitis. Check CXR and will place the patient on duoneb treatments. Constipation> Laxatives/stool softeners GI prophylaxis: Continue PPI DVT prophylaxis: Heparin subcutaneously, SCDs Discharge Planning Patient improved. Discharged home in fairly well condition. To follow up as OP with PCP and to have PT as OP. To follow up as OP with PCP and consultants. Pt Condition on Discharge: Fair Discharge Disposition: Discharge Home Discharge Time: <= 30 minutes Discharge Instructions DIET: Follow Instructions for: Heart Healthy Diet Activities you can perform: Regular-No Restrictions Follow up Referrals: PCP Follow-up New Medications: Walker Rolling/GetGo (Walker Rolling/GetGo) 1 Mis Mis 1 EA .ROUTE DIRECTED #1 EA Continued Medications: Amlodipine (Amlodipine) 10 Mg Tab 20 MG PO DAILY Blood Pressure Management #0 Ref [address] (Aspirin EC) 81 Mg Tabdr 162 MG PO DAILY Prevent Blood Clot #60 Ref 0 TAB Carvedilol (Coreg) 6.25 Mg Tab 6.25 MG PO Q12HR #60 Ref 0 TAB Chlordiazepoxide (Chlordiazepoxide) 25 Mg Cap 25 MG PO TID PRN Anxiety #15 Ref 0 CAP Diltiazem (Diltiazem) 90 Mg Tab 90 MG PO QID Angina #120 Ref 0 TAB Lisinopril (Lisinopril) 20 Mg Tab 20 MG PO DAILY #30 Ref 0 TAB Thiamine (Thiamine) 100 Mg Tab 100 MG PO DAILY Nutritional Supplement #30 Ref 0 TAB Carlota Story MD Sep 19, 2016 16:16
[2016-09-19] MEDS ORDERED: GETGO ROLLING W1 MI1 (16:17)
== END 2016-09-19 17:46 | disposition home or self-care (01) | DRG 897 ==
LOC: NEPE 08:15 → NEDA 12:23 → NEDH 19:45 → N04B 21:33
PROVIDERS: ADMIT Hospitalist; ATTEND Hospitalist
DX: F10.239 Alcohol dependence with withdrawal, unspecified (principal); I50.9 Heart failure, unspecified; I48.91 Unspecified atrial fibrillation; I44.7 Left bundle-branch block, unspecified; J44.9 Chronic obstructive pulmonary disease, unspecified; I10 Essential (primary) hypertension; Z88.1 Allergy status to other antibiotic agents; Z88.0 Allergy status to penicillin; Z88.2 Allergy status to sulfonamides; Z88.8 Allergy status to other drugs, medicaments and biological substances; R00.0 Tachycardia, unspecified; Z96.652 Presence of left artificial knee joint; Z83.3 Family history of diabetes mellitus; Z82.49 Family history of ischemic heart disease and other diseases of the circulatory system; R07.89 Other chest pain; M25.552 Pain in left hip; M51.36 Other intervertebral disc degeneration, lumbar region; K59.00 Constipation, unspecified
CPT/HCPCS: 71010; 72131; 72192; 73502; 80048; 80053; 80076; 82550; 83735; 83880; 84484; 85025; 93005; 94640; 96374; 96375; J1644; J1885; J2060; J2270; J2405; J7030

== ENCOUNTER 2016-09-20 23:56 | Emergency (ER) | payer MEDICAID ==
[~2016-09-20] VITALS: Ht 185.4 cm; Wt 101.0 kg
[~2016-09-20 23:56] MED LIST changes: +GETGO ROLLING W1 MI1
[2016-09-21 00:13] VITALS: BP 173/92; PULSE 84; RESP 18; TEMP 98; O2SAT 97
[2016-09-21 04:29] VITALS: BP 111/85; PULSE 80; RESP 18; TEMP 98.1; O2SAT 98
[2016-09-21] MEDS ORDERED: ACETAMINOPHEN 325 MG TAB PO ONE (05:00)
--- NOTE | 2016-09-21 05:10 | PD ---
HPI Chief Complaint: Alcohol/Drug Intoxication Time Seen by Provider: 04:52 Travel History International Travel<30 days: No Contact w/Intl Traveler<30days: No Traveled to known affect area: No History of Present Illness HPI 61-year-old male arrives to the ER by EMS. He was found asleep in the parking lot. He recalls waking up and a ambulance. He complains of pain in the right face and the right temporoparietal scalp. He states the pain can be severe. He states he drank alcohol last night as he does every night at least 10 cans of beer. He is well known to our department frequently arriving intoxicated with alcohol. He takes aspirin but no AC otherwise. PFSH Past Medical History Hx Anticoagulant Therapy: Yes (DVT-ASA) Arthritis: Yes (bursitis tendonitis) Asthma: No Atrial Fibrillation: Yes Autoimmune Disease: No Blood Disorders: No Anxiety: Yes Depression: Yes Heart Rhythm Problems: Yes (LBBB, afib RVR) Cancer: No Cardiovascular Problems: Yes (A FIB RVR, CHF, HTN) High Cholesterol: No Chest Pain: Yes Congestive Heart Failure: Yes COPD: Yes Cerebrovascular Accident: No Diabetes: No Diminished Hearing: No Endocrine: No Gastrointestinal Disorders: No Genitourinary: Yes (not urinating "a lot") Headaches: No Hypertension: Yes Immune Disorder: No Implanted Vascular Access Dvce: No Kidney Stones: Yes Musculoskeletal: Yes (many broken bones in the past) Neurologic: Yes (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) Psychiatric: No Reproductive: No Respiratory: Yes (COPD) Immunizations Current: Yes Migraines: No Seizures: Yes Shingles: Yes Sleep Apnea: No Ulcer: No Influenza Vaccination: No Past Surgical History Abdominal Surgery: Yes (HERNIA REPAIR) Cardiac Surgery: No Ear Surgery: No Endocrine Surgery: No Eye Surgery: No Genitourinary Surgery: No Gynecologic Surgery: No Neurologic Surgery: No Oral Surgery: No Thoracic Surgery: No Tonsillectomy: Yes Other Surgery: Yes Social History Alcohol Use: Yes (1-2 PINTS DAILY VODKA) Tobacco Use: No (quit 3 months ago) Substance Use: Yes (alcohol) Allergies-Medications (Allergen,Severity, Reaction): Coded Allergies: Keflex (Verified Allergy, Severe, hives, 09/21/16) Penicillin (Verified Allergy, Severe, hives, 09/21/16) Sulfa (Verified Allergy, Severe, hives, 09/21/16) Nitroglycerin (Verified Allergy, Mild, 09/21/16) vomit Reported Meds & Prescriptions Reported Meds & Active Scripts Active Walker Rolling/GetGo (Device) 1 Mis Mis 1 Ea .ROUTE DIRECTED Diltiazem (Diltiazem HCl) 90 Mg Tab 90 Mg PO QID Coreg (Carvedilol) 6.25 Mg Tab 6.25 Mg PO Q12HR Chlordiazepoxide (Chlordiazepoxide HCl) 25 Mg Cap 25 Mg PO TID PRN Aspirin EC (Aspirin) 81 Mg Tabdr 162 Mg PO DAILY Thiamine (Thiamine HCl) 100 Mg Tab 100 Mg PO DAILY Reported Amlodipine (Amlodipine Besylate) 10 Mg Tab 20 Mg PO DAILY Lisinopril 20 Mg Tab 20 Mg PO DAILY Review of Systems Except as stated in HPI: all other systems reviewed are Neg Physical Exam Narrative GENERAL: 61 yo M, well-nourished well-developed no acute distress SKIN: Warm and dry. HEAD: Atraumatic. Normocephalic. Ecchymosis R maxillary prominence with minimal tenderness. EYES: Pupils equal and round. No scleral icterus. No injection or drainage. ENT: No nasal bleeding or discharge. Mucous membranes pink and moist. No airfluid level in TM either side. NECK: Trachea midline. No JVD. CARDIOVASCULAR: Regular rate and rhythm. No murmur appreciated. RESPIRATORY: No accessory muscle use. Clear to auscultation. Breath sounds equal bilaterally. GASTROINTESTINAL: Abdomen soft, non-tender, nondistended. Hepatic and splenic margins not palpable. MUSCULOSKELETAL: No obvious deformities. No clubbing. No cyanosis. No edema. NEUROLOGICAL: Awake and alert. No obvious cranial nerve deficits. Motor grossly within normal limits. Normal speech. PSYCHIATRIC: Poor hygeine. No SI/HI. Data Data Last Documented VS Vital Signs Date Time Temp Pulse Resp B/P Pulse Ox O2 Delivery O2 Flow Rate FiO2 09/21/16 04:29 98.1 80 18 111/[address] Brain W/O Iv Contrast(Rout) (09/21/16 04:52) Acetaminophen (Tylenol) (09/21/16 05:00) MDM Medical Decision Making Medical Screen Exam Complete: Yes Emergency Medical Condition: Yes Medical Record Reviewed: Yes Differential Diagnosis Contusion, intracranial hemorrhage, skull fracture, alcohol intox Narrative Course Head CT: No acute intracranial disease/injury Pt clinically sober and appropriate safe for discharge. Diagnosis Primary Impression: Alcohol abuse Additional Impressions: Fall Qualified Code: W19.XXXA - Fall, initial encounter Contusion Qualified Code: S00.03XA - Contusion of scalp, initial encounter Contusion of right temporofrontal scalp Qualified Code: S00.03XA - Contusion of right temporofrontal scalp, initial encounter Referrals: Primary Care Physician 2 days Additional Instructions: You have a choice when it comes to health care, and we are glad that you chose [facility]. Hopefully, we have met your expectations on today's visit. You are welcome to return to [facility] at any time, as we are committed to meeting the health care needs of our community. Med/Other Pt SpecificInfo: No Change to Meds Disposition: 01 DISCHARGE HOME Condition: Stable Jai Norman MD Sep 21, 2016 05:10
--- NOTE | 2016-09-21 05:19 | RADRPT ---
EXAM DATE/TIME: 09/21/2016 05:08 [facility] COMPARISON: CT BRAIN W/O CONTRAST, August 04, 2016, 13:00. INDICATIONS : Altered mental status. ETOH RADIATION DOSE: 48.97 CTDIvol (mGy) MEDICAL HISTORY : Hypertension. Chronic obstructive pulmonary disease. Congestive heart failure. SURGICAL HISTORY : None. ENCOUNTER: Initial ACUITY: 1 day PAIN SCALE: 0/10 LOCATION: cranial TECHNIQUE: Multiple contiguous axial images were obtained of the head. Using automated exposure control and adj ustment of the mA and/or kV according to patient size, radiation dose was kept as low as reasonably a chievable to obtain optimal diagnostic quality images. FINDINGS: CEREBRUM: The ventricles are normal for age. No evidence of midline shift, mass lesion, hemorrhage or acute in farction. No extra-axial fluid collections are seen. POSTERIOR FOSSA: The cerebellum and brainstem are intact. The 4th ventricle is midline. The cerebellopontine angle i s unremarkable. EXTRACRANIAL: The visualized portion of the orbits is intact. SKULL: The calvaria is intact. No evidence of skull fracture. CONCLUSION: Normal examination. Daniel Thorne MD on September 21, 2016 at 5:17 Board Certified Radiologist. This report was verified electronically.
== END 2016-09-21 06:22 | disposition home or self-care (01) ==
LOC: NEPE 23:56
DX: F10.10 Alcohol abuse, uncomplicated (principal); S00.03XA Contusion of scalp, initial encounter; S00.83XA Contusion of other part of head, initial encounter; I48.91 Unspecified atrial fibrillation; I10 Essential (primary) hypertension; W01.198A Fall on same level from slipping, tripping and stumbling with subsequent striking against other object, initial encounter; Y92.481 Parking lot as the place of occurrence of the external cause; Z79.01 Long term (current) use of anticoagulants
CPT/HCPCS: 70450

== ENCOUNTER 2016-09-25 08:14 | Emergency (ER) | payer MEDICAID ==
[~2016-09-25] VITALS: Ht 188 cm; Wt 105.0 kg
[2016-09-25 08:18] VITALS: BP 192/128; PULSE 107; RESP 20; TEMP 98.4; O2SAT 98
[2016-09-25] MEDS ORDERED: SODIUM CHLORIDE 0.9% FLUSH 5 ML FLUSH IVF PRN (08:30)
[2016-09-25] MEDS ORDERED: KETOROLAC TROMETHAMINE 30 MG/ML (IVP) VIAL IV PUSH ONE (08:30)
[2016-09-25] MEDS ORDERED: ONDANSETRON HCL 4 MG/2 ML VIAL IV PUSH ONE (08:30)
[2016-09-25] MEDS ORDERED: LORazepam 2 MG/ML VIAL IV PUSH ONE (08:30)
--- NOTE | 2016-09-25 08:56 | PD ---
HPI Chief Complaint: Chest Pain Time Seen by Provider: 08:20 Travel History International Travel<30 days: No Contact w/Intl Traveler<30days: No Traveled to known affect area: No History of Present Illness HPI Patient is a 61-year-old male with history of atrial fibrillation, nonischemic cardiomyopathy with EF of 40%, HTN, chronic alcoholism who presents the emergency department with complaint of chest pain, shakiness. Patient states he woke up this morning at approximately 6:30 with complaint of sharp substernal chest pain that does not radiate. Slightly short of breath and wheezy. Patient is still smoking. He feels shaky. Patient last alcohol use was yesterday afternoon. States he does not typically wake up shaking or withdrawing in the morning. Per chart review patient's last provocative testing was a myocardial perfusion scan 12/04/15: No ischemia seen. PFSH Past Medical History Hx Anticoagulant Therapy: Yes (DVT-ASA) Arthritis: Yes (bursitis tendonitis) Asthma: No Atrial Fibrillation: Yes Autoimmune Disease: No Blood Disorders: No Anxiety: Yes Depression: Yes Heart Rhythm Problems: Yes (LBBB, afib RVR) Cancer: No Cardiovascular Problems: Yes (A FIB RVR, CHF, HTN) High Cholesterol: No Chest Pain: Yes Congestive Heart Failure: Yes COPD: Yes Cerebrovascular Accident: No Diabetes: No Diminished Hearing: No Endocrine: No Gastrointestinal Disorders: No Genitourinary: Yes (not urinating "a lot") Headaches: No Hypertension: Yes Immune Disorder: No Implanted Vascular Access Dvce: No Kidney Stones: Yes Musculoskeletal: Yes (many broken bones in the past) Neurologic: Yes (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) Psychiatric: No Reproductive: No Respiratory: Yes (COPD) Immunizations Current: Yes Migraines: No Seizures: Yes Shingles: Yes Sleep Apnea: No Ulcer: No Tetanus Vaccination: < 5 Years Past Surgical History Abdominal Surgery: Yes (HERNIA REPAIR) Cardiac Surgery: No Ear Surgery: No Endocrine Surgery: No Eye Surgery: No Genitourinary Surgery: No Gynecologic Surgery: No Neurologic Surgery: No Oral Surgery: No Thoracic Surgery: No Tonsillectomy: Yes Other Surgery: Yes Social History Alcohol Use: Yes (1-2 PINTS DAILY VODKA) Tobacco Use: No (quit 3 months ago) Substance Use: No Allergies-Medications (Allergen,Severity, Reaction): Coded Allergies: Keflex (Verified Allergy, Severe, hives, 09/25/16) Penicillin (Verified Allergy, Severe, hives, 09/25/16) Sulfa (Verified Allergy, Severe, hives, 09/25/16) Nitroglycerin (Verified Allergy, Mild, 09/25/16) vomit Reported Meds & Prescriptions Reported Meds & Active Scripts Active Walker Rolling/GetGo (Device) 1 Mis Mis 1 Ea .ROUTE DIRECTED Coreg (Carvedilol) 6.25 Mg Tab 6.25 Mg PO Q12HR Aspirin EC (Aspirin) 81 Mg Tabdr 162 Mg PO DAILY Thiamine (Thiamine HCl) 100 Mg Tab 100 Mg PO DAILY Reported Amlodipine (Amlodipine Besylate) 10 Mg Tab 20 Mg PO DAILY Lisinopril 20 Mg Tab 20 Mg PO DAILY Review of Systems Except as stated in HPI: all other systems reviewed are Neg Physical Exam Narrative GENERAL: Disheveled adult male in no acute distress SKIN: Warm and dry. HEAD: Normocephalic. EYES: No scleral icterus. No injection or drainage. ENT: Mucous membranes pink and moist. NECK: Supple CARDIOVASCULAR: Tachycardic with heart rate in the 100s, regular rhythm. No murmur appreciated. Reproducible tenderness to palpation of the chest wall left lower sternal margin. RESPIRATORY: No accessory muscle use. Clear to auscultation. Breath sounds equal bilaterally. GASTROINTESTINAL: Abdomen soft, non-tender, nondistended. MUSCULOSKELETAL: No edema. NEUROLOGICAL: Awake and alert. Subtle tremor throughout upper extremities. Moves all extremity's normally. Normal speech. PSYCHIATRIC: insight and judgment poor Data Data Last Documented VS Vital Signs Date Time Temp Pulse Resp B/P Pulse Ox O2 Delivery O2 Flow Rate FiO2 09/25/16 08:18 98.4 107 20 192/128 98 Orders Electrocardiogram (09/25/16 ) Basic Metabolic Panel (Bmp) (09/25/16 08:29) Complete Blood Count With Diff (09/25/16 08:29) Magnesium (Mg) (09/25/16 08:29) Prothrombin Time / Inr (Pt) (09/25/16 08:29) Act Partial Throm Time (Ptt) (09/25/16 08:29) Troponin I (09/25/16 08:29) Chest, Single Ap (09/25/16 08:29) Ecg Monitoring (09/25/16 08:29) Bilateral Bp Monitoring (09/25/16 08:29) Iv Access Insert/Monitor (09/25/16 08:29) Oximetry (09/25/16 08:29) Sodium Chloride 0.9% Flush (Ns Flush) (09/25/16 08:30) Ondansetron Inj (Zofran Inj) (09/25/16 08:30) Lorazepam Inj (Ativan Inj) (09/25/16 08:30) Ketorolac Inj (Toradol Inj) (09/25/16 08:30) Chlordiazepoxide (Librium) (09/25/16 09:30) Labs Laboratory Tests Test 09/25/16 08:55 White Blood Count 4.3 TH/MM3 Red Blood Count 4.25 MIL/MM3 Hemoglobin 14.4 GM/DL Hematocrit 41.2 % Mean Corpuscular Volume 96.8 FL Mean Corpuscular Hemoglobin 33.8 PG Mean Corpuscular Hemoglobin 35.0 % Concent Red Cell Distribution Width 14.3 % Platelet Count 184 TH/MM3 Mean Platelet Volume 7.8 FL Neutrophils (%) (Auto) 50.9 % Lymphocytes (%) (Auto) 23.6 % Monocytes (%) (Auto) 22.1 % Eosinophils (%) (Auto) 2.2 % Basophils (%) (Auto) 1.2 % Neutrophils # (Auto) 2.2 TH/MM3 Lymphocytes # (Auto) 1.0 TH/MM3 Monocytes # (Auto) 0.9 TH/MM3 Eosinophils # (Auto) 0.1 TH/MM3 Basophils # (Auto) 0.1 TH/MM3 CBC Comment DIFF FINAL Differential Comment Prothrombin Time 11.0 SEC Prothromb Time International 1.0 RATIO Ratio Activated Partial 25.7 SEC Thromboplast Time Sodium Level 142 MEQ/L Potassium Level 3.5 MEQ/L Chloride Level 104 MEQ/L Carbon Dioxide Level 28.1 MEQ/L Anion Gap 10 MEQ/L Blood Urea Nitrogen 11 MG/DL Creatinine 0.94 MG/DL Estimat Glomerular Filtration 81 ML/MIN Rate Random Glucose 106 MG/DL Calcium Level 8.6 MG/DL Magnesium Level 1.7 MG/DL Troponin I LESS THAN 0.02 NG/ML MDM Medical Decision Making Medical Screen Exam Complete: Yes Emergency Medical Condition: Yes Medical Record Reviewed: Yes Differential Diagnosis 61-year-old male with history of atrial fibrillation, nonischemic cardiomyopathy with EF of 40%, HTN, chronic alcoholism who presents the emergency department with complaint of chest pain, shakiness since waking up at 6:30 AM. Differential includes alcohol withdrawal, tremor, electrolyte abnormality, atypical chest pain, musculoskeletal, arrhythmia, electrolyte abnormality. Less likely ACS, negative provocative testing does within the last year. Narrative Course Patient placed on monitor, IV established and blood obtained. A twelve-lead EKG shows sinus tachycardia, rate 107. No notable ST abnormalities, normal intervals. She was given 4 mg Zofran, 30 g Toradol, 1 mg Ativan. Portable chest x-ray was obtained that by my read shows no acute abnormalities. CBC, BMP , magnesium, troponin, coags unremarkable. Patient remained slightly tachycardic with heart rate in the 100s. Given oral Librium. Symptoms seem very atypical for ACS, very reproducible on exam and with negative EKG and cardiac enzymes I am comfortable with disposition home. Patient was offered Librium for home, but states that he has no desire to quit drinking and will go home to drink. Therefore Librium was not prescribed upon discharge. Diagnosis Primary Impression: Atypical chest pain Additional Impression: Alcohol withdrawal Qualified Code: F10.230 - Alcohol withdrawal, uncomplicated Referrals: Jessica Flores MD call for appointment Primary Care Physician call for appointment [facility] call for appointment Additional Instructions: Seek outpatient management for your alcoholism. Follow with PCP as discussed. Med/Other Pt SpecificInfo: No Change to Meds Disposition: 01 DISCHARGE HOME Condition: Stable Melanie Hendricks MD Sep 25, 2016 08:56
[2016-09-25 09:20] LABS: AUTOMATED NEUTROPHIL # 2.2 TH/MM3 (1.8-7.7); BASOPHIL # 0.1 TH/MM3 (0-0.2); BASOPHIL % 1.2 % (0.0-2.0); EOSINOPHIL # 0.1 TH/MM3 (0-0.4); EOSINOPHIL % 2.2 % (0.0-4.0); HEMATOCRIT 41.2 % (39.0-51.0); HEMO FLAGS DIFF FINAL; LYMPH % 23.6 % (9.0-44.0); MEAN CELL VOLUME 96.8 FL (80.0-100.0); MEAN CORPUSCULAR HEMOGLOBIN 33.8 PG (27.0-34.0); MONO % 22.1 % (0.0-8.0); NEUT % 50.9 % (16.0-70.0); PLATELET COUNT 184 TH/MM3 (150-450); RED BLOOD COUNT 4.25 MIL/MM3 (4.50-5.90); RED CELL DISTRIBUTION WIDTH 14.3 % (11.6-17.2); WHITE BLOOD COUNT 4.3 TH/MM3 (4.0-11.0)
[2016-09-25 09:26] LABS: APTT (PATIENT) 25.7 SEC (24.3-30.1)
--- NOTE | 2016-09-25 09:29 | RADRPT ---
EXAM DATE/TIME: 09/25/2016 08:37 [facility] COMPARISON: CHEST SINGLE AP, September 14, 2016, 8:33. INDICATIONS : Chest pain, shortness of breath MEDICAL HISTORY : Chronic obstructive pulmonary disease. SURGICAL HISTORY : None. ENCOUNTER: Initial ACUITY: 2 days PAIN SCORE: 0/10 LOCATION: Bilateral chest FINDINGS: A single view of the chest demonstrates the lungs to be symmetrically aerated without evidence of mas s, infiltrate or effusion. The cardiomediastinal contours are unremarkable. Osseous structures are intact. CONCLUSION: No acute disease. Kenneth Khan MD on September 25, 2016 at 9:28 Board Certified Radiologist. This report was verified electronically.
[2016-09-25] MEDS ORDERED: chlordiazePOXIDE 25 MG CAP PO ONE (09:30)
[2016-09-25 09:33] LABS: ANION GAP 10 MEQ/L (5-15); BICARBONATE 28.1 MEQ/L (21.0-32.0); BLOOD UREA NITROGEN 11 MG/DL (7-18); CHLORIDE 104 MEQ/L (98-107); GLOMERULAR FILTRATION RATE 81 ML/MIN (>89); MAGNESIUM 1.7 MG/DL (1.5-2.5); POTASSIUM 3.5 MEQ/L (3.5-5.1); SODIUM (NA) 142 MEQ/L (136-145)
[2016-09-25 10:39] VITALS: BP 164/81; PULSE 92; RESP 20; O2SAT 98
--- NOTE | 2016-09-26 08:31 | EKG ---
Date Performed: 09/25/2016 Time Performed: 08:19:36 PTAGE: 61 years EKG: SINUS TACHYCARDIA ST DEVIATION AND MODERATE T-WAVE ABNORMALITY, CONSIDER LATERAL ISCHEMIA A BNORMAL ECG PREVIOUS TRACING : 09/14/2016 08.17 Compared to prior tracing no significant change DOCTOR: Aaron Sanchez Interpretating Date/Time 09/26/2016 08:30:44
== END 2016-09-25 10:40 | disposition home or self-care (01) ==
LOC: NEPE 08:14
DX: R07.89 Other chest pain (principal); F10.230 Alcohol dependence with withdrawal, uncomplicated; R94.31 Abnormal electrocardiogram [ECG] [EKG]; R06.02 Shortness of breath; R06.2 Wheezing; I10 Essential (primary) hypertension; I48.91 Unspecified atrial fibrillation; Z79.01 Long term (current) use of anticoagulants
CPT/HCPCS: 71010; 80048; 83735; 84484; 85025; 85610; 85730; 93005; 96374; 96375; 99285; J1885; J2060; J2405

== ENCOUNTER 2016-11-10 00:33 | Observation (INO) | payer MEDICAID ==
[2016-11-10] VITALS (10 sets, daily range): BP systolic 140–187; BP diastolic 80–125; PULSE 100–116; RESP 18–22; TEMP 97.7–99.1; O2SAT 95–98
[~2016-11-10] VITALS: Ht 185.4 cm; Wt 105.0 kg
[~2016-11-10 00:33] MED LIST changes: -CHLO25CA2 PO; -DILT90TA PO
[2016-11-10] MEDS ORDERED: HERB (01:20)
[2016-11-10] MEDS ORDERED: HYDROmorphone HCL PF 1 MG/ML VIAL IV PUSH ONE (01:45)
[2016-11-10] MEDS ORDERED: SODIUM CHLORIDE 0.9% FLUSH 10 ML FLUSH IVF PRN (01:45)
[2016-11-10] MEDS ORDERED: SODIUM CHLORID 0.9% 500 ML INJ 500 ML IV ONE (01:45)
[2016-11-10] MEDS ORDERED: ASPIRIN 325 MG TAB PO ONE (01:45)
[2016-11-10 01:53] LABS: AUTOMATED NEUTROPHIL # 4.2 TH/MM3 (1.8-7.7); BASOPHIL # 0.1 TH/MM3 (0-0.2); BASOPHIL % 0.8 % (0.0-2.0); EOSINOPHIL # 0.2 TH/MM3 (0-0.4); EOSINOPHIL % 2.6 % (0.0-4.0); HEMATOCRIT 46.8 % (39.0-51.0); HEMO FLAGS DIFF FINAL; LYMPH % 24.4 % (9.0-44.0); LYMPHOCYTE # 1.8 TH/MM3 (1.0-4.8); MEAN CELL VOLUME 96.8 FL (80.0-100.0); MEAN CORPUSCULAR HEMOGLOBIN 33.4 PG (27.0-34.0); MEAN CORPUSCULAR HGB CONC 34.6 % (32.0-36.0); MONO % 16.4 % (0.0-8.0); NEUT % 55.8 % (16.0-70.0); PLATELET COUNT 242 TH/MM3 (150-450); RED BLOOD COUNT 4.83 MIL/MM3 (4.50-5.90); RED CELL DISTRIBUTION WIDTH 14.4 % (11.6-17.2); WHITE BLOOD COUNT 7.5 TH/MM3 (4.0-11.0)
[2016-11-10 02:04] LABS: APTT (PATIENT) 25.5 SEC (24.3-30.1); PROTHROMBIN TIME - PATIENT 11.1 SEC (9.8-11.6)
[2016-11-10 02:06] LABS: ALT (GPT) 46 U/L (12-78); ANION GAP 10 MEQ/L (5-15); AST (GOT) 44 U/L (15-37); BICARBONATE 25.8 MEQ/L (21.0-32.0); BLOOD UREA NITROGEN 21 MG/DL (7-18); CHLORIDE 107 MEQ/L (98-107); GLOMERULAR FILTRATION RATE 75 ML/MIN (>89); MAGNESIUM 1.9 MG/DL (1.5-2.5); POTASSIUM 3.8 MEQ/L (3.5-5.1); SODIUM (NA) 143 MEQ/L (136-145)
[2016-11-10 02:10] LABS: ALKALINE PHOSPHATASE 50 U/L (45-117); TOTAL BILIRUBIN ADULT 0.4 MG/DL (0.2-1.0)
--- NOTE | 2016-11-10 02:10 | RADRPT ---
EXAM DATE/TIME: 11/10/2016 01:40 [facility] COMPARISON: CHEST SINGLE AP, September 25, 2016, 8:37. INDICATIONS : Chest pain. MEDICAL HISTORY : Chronic obstructive pulmonary disease. SURGICAL HISTORY : None. ENCOUNTER: Initial ACUITY: 4 - 6 days PAIN SCORE: 6/10 LOCATION: chest FINDINGS: Portable AP view of the chest demonstrates a normal-sized cardiac silhouette. No effusion, consolidat ion, or pneumothorax is visualized. There is linear atelectasis versus scar at the left lung base. Th e bones and soft tissues demonstrate no acute abnormality. CONCLUSION: No acute cardiopulmonary abnormality is identified. Jung Scales MD on November 10, 2016 at 2:08 Board Certified Radiologist. This report was verified electronically.
[2016-11-10 02:14] LABS: CREATINE KINASE 89 U/L (39-308)
[2016-11-10] MEDS ORDERED: MORPHINE SULFATE 4 MG/ML INJ IV PUSH ONE (02:30)
--- NOTE | 2016-11-10 02:57 | PD ---
HPI Chief Complaint: Chest Pain Time Seen by Provider: 01:18 Travel History International Travel<30 days: No Contact w/Intl Traveler<30days: No Traveled to known affect area: No History of Present Illness HPI 61-year-old male arrives to the ER complaining of chest pain which is typical for him. There is a knot like sensation in the middle of the chest. The onset occurred while he was walking to the grocery store. He had to stop and sit down. Shortness of breath also occurred. He reports he has been taking an herb from [place] called Kratum, which has essentially managed all his medical problems including blood pressure and sciatica and insomnia. He ran out 3 days ago and believes symptoms tonight are related to that. No cough or fever. PFSH Past Medical History Hx Anticoagulant Therapy: Yes (DVT-ASA) Arthritis: Yes (bursitis tendonitis) Asthma: No Atrial Fibrillation: Yes Autoimmune Disease: No Blood Disorders: No Anxiety: Yes Depression: Yes Heart Rhythm Problems: Yes (LBBB, afib RVR) Cancer: No Cardiovascular Problems: Yes (A FIB RVR, CHF, HTN) High Cholesterol: No Chest Pain: Yes Congestive Heart Failure: Yes COPD: Yes Cerebrovascular Accident: No Diabetes: No Diminished Hearing: No Endocrine: No Gastrointestinal Disorders: No Genitourinary: Yes (not urinating "a lot") Headaches: No Hypertension: Yes Immune Disorder: No Implanted Vascular Access Dvce: No Kidney Stones: Yes Musculoskeletal: Yes (many broken bones in the past) Neurologic: Yes (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) Psychiatric: No Reproductive: No Respiratory: Yes (COPD) Immunizations Current: Yes Migraines: No Seizures: Yes Shingles: Yes Sleep Apnea: No Ulcer: No Influenza Vaccination: No Past Surgical History Abdominal Surgery: Yes (HERNIA REPAIR) Cardiac Surgery: No Ear Surgery: No Endocrine Surgery: No Eye Surgery: No Genitourinary Surgery: No Gynecologic Surgery: No Neurologic Surgery: No Oral Surgery: No Thoracic Surgery: No Tonsillectomy: Yes Other Surgery: Yes Social History Alcohol Use: Yes (1-2 PINTS DAILY VODKA) Tobacco Use: No (quit 3 months ago) Substance Use: No Allergies-Medications (Allergen,Severity, Reaction): Coded Allergies: Keflex (Verified Allergy, Severe, hives, 11/10/16) Penicillin (Verified Allergy, Severe, hives, 11/10/16) Sulfa (Verified Allergy, Severe, hives, 11/10/16) Nitroglycerin (Verified Allergy, Mild, 11/10/16) vomit Reported Meds & Prescriptions Reported Meds & Active Scripts Active Reported [Otc Herb] Review of Systems Except as stated in HPI: all other systems reviewed are Neg General / Constitutional: No: Fever, Chills Cardiovascular: Positive: Chest Pain or Discomfort Respiratory: Positive: Shortness of Breath, No: Cough Physical Exam Narrative GENERAL: 61-year-old male well-nourished well-developed SKIN: Focused skin assessment warm/dry. HEAD: Atraumatic. Normocephalic. EYES: Pupils equal and round. No scleral icterus. No injection or drainage. ENT: No nasal bleeding or discharge. Mucous membranes pink and moist. NECK: Trachea midline. No JVD. CARDIOVASCULAR: Regular rate and rhythm. No murmur appreciated. RESPIRATORY: No accessory muscle use. Clear to auscultation. Breath sounds equal bilaterally. GASTROINTESTINAL: Abdomen soft, non-tender, nondistended. Hepatic and splenic margins not palpable. MUSCULOSKELETAL: No obvious deformities. No clubbing. No cyanosis. No edema. NEUROLOGICAL: Awake and alert. No obvious cranial nerve deficits. Motor grossly within normal limits. Normal speech. PSYCHIATRIC: Appropriate mood and affect; insight and judgment normal. Data Data Last Documented VS Vital Signs Date Time Temp Pulse Resp B/P Pulse Ox O2 Delivery O2 Flow Rate FiO2 11/10/16 01:37 95 Room Air 11/10/16 01:20 104 20 11/10/16 01:20 99.1 151/90 Vital signs reviewed Orders Electrocardiogram (11/10/16 01:33) Ckmb (Isoenzyme) Profile (11/10/16 01:33) Complete Blood Count With Diff (11/10/16 01:33) Comprehensive Metabolic Panel (11/10/16 01:33) Magnesium (Mg) (11/10/16 01:33) Prothrombin Time / Inr (Pt) (11/10/16 01:33) Act Partial Throm Time (Ptt) (11/10/16 01:33) Troponin I (11/10/16 01:33) Lipase (11/10/16 01:33) Chest, Single Ap (11/10/16 01:33) Ecg Monitoring (11/10/16 01:33) Iv Access Insert/Monitor (11/10/16 01:33) Oximetry (11/10/16 01:33) Oxygen Administration (11/10/16 01:33) Aspirin (Aspirin) (11/10/16 01:45) Sodium Chloride 0.9% Flush (Ns Flush) (11/10/16 01:45) Sodium Chlorid 0.9% 500 Ml Inj (Ns 500 M (11/10/16 01:45) Hydromorphone Pf Inj (Dilaudid Pf Inj) (11/10/16 01:45) Morphine Inj (Morphine Inj) (11/10/16 02:30) Drug Screen, Random Urine (11/10/16 02:30) Alcohol (Ethanol) (11/10/16 02:30) Labs Laboratory Tests Test 11/10/16 01:40 White Blood Count 7.5 TH/MM3 Red Blood Count 4.83 MIL/MM3 Hemoglobin 16.2 GM/DL Hematocrit 46.8 % Mean Corpuscular Volume 96.8 FL Mean Corpuscular Hemoglobin 33.4 PG Mean Corpuscular Hemoglobin 34.6 % Concent Red Cell Distribution Width 14.4 % Platelet Count 242 TH/MM3 Mean Platelet Volume 8.2 FL Neutrophils (%) (Auto) 55.8 % Lymphocytes (%) (Auto) 24.4 % Monocytes (%) (Auto) 16.4 % Eosinophils (%) (Auto) 2.6 % Basophils (%) (Auto) 0.8 % Neutrophils # (Auto) 4.2 TH/MM3 Lymphocytes # (Auto) 1.8 TH/MM3 Monocytes # (Auto) 1.2 TH/MM3 Eosinophils # (Auto) 0.2 TH/MM3 Basophils # (Auto) 0.1 TH/MM3 CBC Comment DIFF FINAL Differential Comment Prothrombin Time 11.1 SEC Prothromb Time International 1.0 RATIO Ratio Activated Partial 25.5 SEC Thromboplast Time Sodium Level 143 MEQ/L Potassium Level 3.8 MEQ/L Chloride Level 107 MEQ/L Carbon Dioxide Level 25.8 MEQ/L Anion Gap 10 MEQ/L Blood Urea Nitrogen 21 MG/DL Creatinine 1.00 MG/DL Estimat Glomerular Filtration 75 ML/MIN Rate Random Glucose 94 MG/DL Calcium Level 8.7 MG/DL Magnesium Level 1.9 MG/DL Total Bilirubin 0.4 MG/DL Aspartate Amino Transf 44 U/L (AST/SGOT) Alanine Aminotransferase 46 U/L (ALT/SGPT) Alkaline Phosphatase 50 U/L Total Creatine Kinase 89 U/L Troponin I 0.02 NG/ML Total Protein 7.2 GM/DL Albumin 3.8 GM/DL Lipase 270 U/L MDM Medical Decision Making Medical Screen Exam Complete: Yes Emergency Medical Condition: Yes Medical Record Reviewed: Yes Differential Diagnosis NSTEMI, unstable angina, coronary vasospasm, PE, PTX, aortic dissection, pericarditis, myocarditis, endocarditis, PNA, esophageal disease, aneurysm, musculoskeletal etiologies, anxiety, cocaine/sympathomimetic abuse Narrative Course CBC & BMP Diagram 11/10/16 01:40 LFTs normal Troponin 0.02 Lipase 270 EKG reveals a sinus rhythm with T wave conversions which appear new in the lateral precordial leads and inferior leads, rate 108 Last 24 hours Impressions Chest X-Ray 11/10/16 0133 Signed Impressions: Service Date/Time: Thursday, November 10, 2016 01:40 - CONCLUSION: No acute cardiopulmonary abnormality is identified. Jung Scales MD There are EKG changes and the patient has a significant coronary artery disease history. Chest pain center evaluation considered appropriate. Diagnosis Primary Impression: Chest pain Qualified Code: I20.9 - Chest pain due to myocardial ischemia, unspecified ischemic chest pain type Additional Impression: Acute electrocardiogram changes Admitting Information Admitting Physician Requests: Jai Barnes MD Nov 10, 2016 02:57
[2016-11-10] MEDS ORDERED: NITROGLYCERIN 0.4 MG SL 25 TABS/BTL SL PRN (03:15)
[2016-11-10] MEDS ORDERED: ACETAMINOPHEN 500 MG CPLT PO PRN (03:15)
[2016-11-10] MEDS ORDERED: TEMAZEPAM 15 MG CAP PO PRN (03:15)
[2016-11-10] MEDS ORDERED: ALPRAZolam 0.25 MG TAB PO PRN (03:15)
[2016-11-10] MEDS ORDERED: ONDANSETRON HCL 4 MG/2 ML VIAL IV PRN (03:15)
[2016-11-10] MEDS: SODIUM CHLOR 0.9% 1000 ML INJ 1,000 ML IV SCH ×2 (03:30→17:40)
[2016-11-10] MEDS: ACETAMINOPHEN/HYDROcodone 325 MG/7.5 MG TAB PO PRN ×3 (04:38→17:40)
[2016-11-10 07:43] LABS: AMPHETAMINE, URINE NEG (NEG); BARBITURATES, URINE NEG (NEG); COCAINE, URINE NEG (NEG)
[2016-11-10] MEDS: MORPHINE SULFATE 4 MG/ML INJ IV PRN ×2 (08:35→15:33)
[2016-11-10] MEDS ORDERED: LISINOPRIL 10 MG TAB PO SCH (09:00)
[2016-11-10] MEDS ORDERED: ASPIRIN 325 MG TAB PO SCH (09:00)
--- NOTE | 2016-11-10 09:06 | HHI.HP ---
HPI Primary Care Physician Jessica Flores MD Chief Complaint Chest pain History of Present Illness 61-year-old patient presents to emergency room for substernal chest discomfort described as a deep sharp ache. Nonexertional. Endorses this his a normal chest discomfort. Onset early a.m. while walking in a grocery store. No associated symptoms. Chest discomfort has been constant. No known relieving factors. Precipitating factors he believes it's running herbal medication he buys from [facility]. States his herbal medication manages his blood pressure and any alcohol withdrawal he may have. Endorses hypertension however has not taken lisinopril in many months. Review of Systems General: No fatigue,weakness, fever, chills, recent illness, change in appetite. Ran out of herbal medication 3 days ago. Herbal medication is for his blood pressure, called Dominique from [facility]. He believes running out of herbal medication source of his pain and elevation of blood pressure. HEENT: No [place], no vision changes,no dysphasia CV: Chest pain continued but had improved, otherwise as stated above. No palpitations, intermittent leg pain, or dizziness RESP: No SOB, cough, wheeze, hemoptysis, upper respiratory infection GI: No nausea, vomiting, bowel changes, diarrhea, constipation, pain, distention , melena, blood in the stool. No change in appetite, no unintentional weight gain or weight loss : No dysuria, urgency, frequency EXT: No lower leg edema, no paraesthesias MS: No discomfort or change in ROM NEURO: No change in memory, dizziness, difficulty with balance, LOC, motor/ sensory deficits PSYCH: No anxiety or depression SKIN: No rashes, no concerning lesions Past Family Social History Allergies: Coded Allergies: Keflex (Verified Allergy, Severe, hives, 11/10/16) Penicillin (Verified Allergy, Severe, hives, 11/10/16) Sulfa (Verified Allergy, Severe, hives, 11/10/16) Nitroglycerin (Verified Allergy, Mild, 11/10/16) vomit Past Medical History A. fib, anxiety, alcohol abuse, hypertension, depression, COPD Past Surgical History Tonsillectomy, hernia repair Reported Medications Reported Meds & Active Scripts Active Reported [Otc Herb]- Kratum from [facility]-BP management Active Ordered Medications Current Medications Medications (Trade) Dose Ordered Sig/Candy Route Start Time Stop Time Status Last Admin Sodium Chloride 2 ml 2 ml UNSCH PRN IVF 11/10/16 01:45 11/10/16 08:41 (NS 1000 ml Inj) 1,000 ml @ 100 mls/hr Q10H IV 11/10/16 03:09 11/10/16 03:30 (Tylenol) 500 mg Q4H PRN PO 11/10/16 03:15 ([place] 7.5-325 Mg) 1 tab Q4H PRN PO 11/10/16 03:15 11/10/16 04:38 (Morphine Inj) 2 mg Q4H PRN IV 11/10/16 03:15 11/10/16 08:35 (Zofran Inj) 4 mg Q6H PRN IV 11/10/16 03:15 (Nitrostat Sl) 0.4 mg Q5M PRN SL 11/10/16 03:15 (Aspirin) 325 mg DAILY PO 11/10/16 09:00 11/10/16 08:36 (Restoril) 15 mg HS PRN PO 11/10/16 03:15 (Xanax) 0.25 mg Q8H PRN PO 11/10/16 03:15 11/10/16 04:38 (Prinivil) 10 mg DAILY PO 11/10/16 09:00 11/10/16 08:36 Family History Noncontributory for early onset cardiovascular disease Social History Single, works on for a [employer] with 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 Homeless. Endorses drinking 1-2 pints Vodka daily. Denies any illegal drug use. Quit smoking 5 years ago. No known diabetes or hyperlipidemia. Known hypertension-takes herbal supplemental, hasn't taken lisinopril in many months. Past cardiac testing 21815 Debbi scan negative for ischemia, EF 42%. No past cardiac catheterizations. 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 Physical Exam Vital Signs Vital Signs Date Time Temp Pulse Resp B/P Pulse Ox O2 Delivery O2 Flow Rate FiO2 11/10/16 01:37 95 Room Air 11/10/16 01:37 98 Room Air 11/10/16 01:20 104 20 97 Room Air 11/10/16 01:20 99.1 109 20 151/90 98 Room Air 11/10/16 01:06 97.9 100 22 140/80 97 Physical Exam GENERAL: Alert WN, WD, NAD, pleasant, male who appears older than stated age HEAD: NC, AT EYES: pupils equal and round ENT: Mucous membranes pink and moist NECK: Supple, trachea midline CV: RRR, without murmur, rub, gallop, no JVD, S1-S2 no S3-S4. No carotid bruits RESP: Clear lungs throughout bilateral, no crackles, wheeze, rhonchi, symmetrical chest rise, nonlabored, able to speak in full sentences ABD: Soft, NT, ND, no masses, positive bowel tones EXT: Pulses +24, no dependent edema MS: Normal tone 4 extremities, nontender, no obvious deformities, full range of motion NEURO: CN II through CN XII grossly intact, motor strength 5/5, gait WNL, focal tremors bilateral hands PSYCH: A+O 3, pleasant affect, mildly anxious, appropriate speech, appropriate mood and affect, insight and judgment SKIN: Normal turgor, normal texture, no lesions, no rashes, brisk cap refill, even hair distribution Laboratory Laboratory Tests Test 11/10/16 11/10/16 11/10/16 11/10/16 01:40 04:35 07:20 07:40 White Blood Count 7.5 Red Blood Count 4.83 Hemoglobin 16.2 Hematocrit 46.8 Mean Corpuscular Volume 96.8 Mean Corpuscular Hemoglobin 33.4 Mean Corpuscular Hemoglobin 34.6 Concent Red Cell Distribution Width 14.4 Platelet Count 242 Mean Platelet Volume 8.2 Neutrophils (%) (Auto) 55.8 Lymphocytes (%) (Auto) 24.4 Monocytes (%) (Auto) 16.4 Eosinophils (%) (Auto) 2.6 Basophils (%) (Auto) 0.8 Neutrophils # (Auto) 4.2 Lymphocytes # (Auto) 1.8 Monocytes # (Auto) 1.2 Eosinophils # (Auto) 0.2 Basophils # (Auto) 0.1 CBC Comment DIFF FINAL Differential Comment Prothrombin Time 11.1 Prothromb Time International 1.0 Ratio Activated Partial 25.5 Thromboplast Time Sodium Level 143 Potassium Level 3.8 Chloride Level 107 Carbon Dioxide Level 25.8 Anion Gap 10 Blood Urea Nitrogen 21 Creatinine 1.00 Estimat Glomerular Filtration 75 Rate Random Glucose 94 Calcium Level 8.7 Magnesium Level 1.9 Total Bilirubin 0.4 Aspartate Amino Transf 44 (AST/SGOT) Alanine Aminotransferase 46 (ALT/SGPT) Alkaline Phosphatase 50 Total Creatine Kinase 89 81 72 Troponin I 0.02 0.02 0.02 Total Protein 7.2 Albumin 3.8 Lipase 270 Ethyl Alcohol Level 187 Urine Opiates Screen POS Urine Barbiturates Screen NEG Urine Amphetamines Screen NEG Urine Benzodiazepines Screen POS Urine Cocaine Screen NEG Urine Cannabinoids Screen NEG Result Diagram: 11/10/16 0140 11/10/16 0140 Imaging Last Impressions Chest X-Ray 11/10/16 0133 Signed Impressions: Service Date/Time: Thursday, November 10, 2016 01:40 - CONCLUSION: No acute cardiopulmonary abnormality is identified. Jung Scales MD Myocardial Perfusion Scan Nuc Med 11/10/16 0000 Signed Impressions: Service Date/Time: Thursday, November 10, 2016 10:50 - CONCLUSION: Negative for stress-induced ischemia. Significant improvement in ejection fraction. RISK CATEGORY: Low (<1%% Annual Mortality Rate) Garfield Tang MD FACR Course EKGs First EKG a flutter with RVR, T-wave abnormality consider anterior lateral ischemia Second EKG normal sinus rhythm moderate T-wave with ST deviation, consider inferior ischemia Third EKG normal sinus tachycardia moderate T-wave abnormality Assessment and Plan Assessment and Plan #1 Chest painadmitted to chest pain center. Ruled out with 3 sets of EKGs, cardiac enzymes, and monitored overnight. Seen and evaluated by Dr. Kamila Sampson. Chest pain atypical and most likely related to his elevated blood pressure. Patient given option to monitor BP and discharge or complete chemical stress test, then discharge. Patient requesting chemical stress test. Debbi scan completed with results showing intact wall motion and negative for ischemia. Will discharge patient this afternoon. #2 Hypertensionrestart lisinopril 10 mg daily, clonidine when necessary for systolic greater than 180, diastolic greater than 100. Encouraged medication compliance and low sodium diet. Discussed in length herbal medication is not regulated therefore lisinopril encouraged. Refill for lisinopril will be provided at discharge. Patient agrees to take lisinopril until his herbal medication arrives in mail. #3 EtOH abuseCIWA protocol, discussed and counseled patient on effects of alcohol abuse and encouraged to find a program to stop drinking. 15:15-Upon nurse discharging patient, he started complained of chest pain. Blood pressure reading 171/100. Amlodipine 5 mg 1 dose. Will continue to monitor, with plans for discharge this evening. 17:20-Patient continues to complain of chest discomfort and requesting to stay the night. Discussed in length concern of alcohol withdraw and mild elevation of blood pressure could be related to multiple issues. Reassured patient chest discomfort not related to cardiac, more likely musculoskeletal chest wall discomfort. Suspect malingering. Call out to attending physician, Dr. Sampson. 17:50-Dr. Sampson okays discharge for sbp less 180, one additional dose of lisinopril 10mg before discharge, and a prescription for lisinopril 20mg daily home going. Patient agreeable to discharge. Case management arranging transportation. Denisha Ho Nov 10, 2016 09:06
[2016-11-10] MEDS ORDERED: LORazepam 1 MG TAB PO PRN (10:15)
[2016-11-10] MEDS ORDERED: HALOPERIDOL LACTATE 5 MG/ML AMP IM PRN (10:15)
[2016-11-10] MEDS ORDERED: LORazepam 2 MG/ML VIAL IV PUSH PRN ×4 (10:15)
[2016-11-10] MEDS ORDERED: FLUMAZENIL 0.5 MG/5 ML VIAL IV PUSH PRN (10:15)
[2016-11-10] MEDS ORDERED: LORazepam 2 MG TAB PO PRN (10:15)
[2016-11-10] MEDS ORDERED: REGADENOSON INJ 0.4 MG/5 ML SYR ONE (11:19)
[2016-11-10] MEDS ORDERED: cloNIDine HCL 0.1 MG TAB PO PRN (12:45)
--- NOTE | 2016-11-10 12:57 | RADRPT ---
EXAM DATE/TIME: 11/10/2016 10:50 [facility] COMPARISON: No previous studies available for comparison. INDICATIONS : Angina. DOSE: 35.0 mCi Tc99m Myoview at stress. 11.0 mCi Tc99m Myoview at rest. 0.4 mg Lexiscan STRESS SYMPTOMS: Dyspnea and facial flush. EJECTION FRACTION: 68% MEDICAL HISTORY : Chronic obstructive pulmonary disease. Congestive heart failure. Atrial Fibrillation. Hypertension SURGICAL HISTORY : Inguinal hernia repair. Tonsillectomy. ENCOUNTER: Initial ACUITY: 1 day PAIN SCALE: 0/10 LOCATION: Midsternal chest discomfort TECHNIQUE: The patient underwent pharmacologic stress with infusion of prescribed dose. Continuous ECG tracing was monitored during stress. Gated SPECT imaging was performed after stress and conventional SPECT i maging was performed at rest. The examination was performed on a SPECT/CT scanner, both attenuation and non-corrected datasets were reviewed. FINDINGS: DISTRIBUTION: The maximum perfused segment at stress is in the anterior lateral wall. PERFUSION STUDY: The pattern of perfusion at stress is within normal limits. GATED STUDY: There is intact wall motion and thickening without hypokinetic or dyskinetic segments. CONCLUSION: Negative for stress-induced ischemia. Significant improvement in ejection fraction. RISK CATEGORY: Low (<1% Annual Mortality Rate) Garfield Tang MD FACR on November 10, 2016 at 12:53 Board Certified Radiologist. This report was verified electronically.
[2016-11-10] MEDS ORDERED: LISI10TA3 PO ×2 (13:22→15:39)
--- NOTE | 2016-11-10 13:22 | HHI.DCPOC ---
Discharge Care Plan Diagnosis: (1) Hypertension (2) Atypical chest pain (3) Alcohol dependence Goals to Promote Your Health * To prevent worsening of your condition and complications * To maintain your health at the optimal level Directions to Meet Your Goals Take your medications as prescribed Follow your dietary instruction Follow activity as directed Keep your appointments as scheduled Take your immunizations and boosters as scheduled If your symptoms worsen call your PCP, if no PCP go to Urgent Care Center or Emergency Room Smoking is Dangerous to Your Health. Avoid second hand smoke Call the 24-hour hour crisis hotline for domestic abuse at Denisha Ho Nov 10, 2016 13:22
--- NOTE | 2016-11-10 14:20 | TR ---
Date Performed: 11/10/2016 Time Performed: 11:21:27 DOCTOR: Natalia Sampson DRUG LIST: CLINICAL HISTORY: REASON FOR TEST: REASON FOR ENDING: OBSERVATION: CONCLUSION: Lexiscan stress test was performed under standard four minute protocol. Radionuclid e was injected one minute prior to ending the test. No change in electrocardiographic abormalities we re present to suggest ischemia. Nuclear imaging and interpretation are pending. COMMENTS:
--- NOTE | 2016-11-10 14:26 | EKG ---
Date Performed: 11/10/2016 Time Performed: 08:50:30 PTAGE: 61 years EKG: ATRIAL FLUTTER/TACHYCARDIA WITH RAPID VENTRICULAR RESPONSE ST DEVIATION AND MODERATE T-WAVE ABNORMALITY, CONSIDER ANTEROLATERAL ISCHEMIA ST DEVIATION AND MODERATE T-WAVE ABNORMALITY, CONSIDER INFERIOR ISCHEMIA ABNORMAL ECG Since PREVIOUS TRACING , no significant change noted PREVIOUS TRACIN11/10/2016 04.35 DOCTOR: Natalia Sampson Interpretating Date/Time 11/10/2016 14:25:01
--- NOTE | 2016-11-10 14:29 | EKG ---
Date Performed: 11/10/2016 Time Performed: 02:29:15 PTAGE: 61 years EKG: SINUS TACHYCARDIA ST DEVIATION AND MODERATE T-WAVE ABNORMALITY, CONSIDER LATERAL ISCHEMIA S T DEVIATION AND MODERATE T-WAVE ABNORMALITY, CONSIDER INFERIOR ISCHEMIA ABNORMAL ECG Since PREVIOUS TRACING , no significant change noted PREVIOUS TRACIN11/10/2016 01.13 DOCTOR: Natalia Sampson Interpretating Date/Time 11/10/2016 14:27:43
--- NOTE | 2016-11-10 14:29 | EKG ---
Date Performed: 11/10/2016 Time Performed: 04:35:13 PTAGE: 61 years EKG: Sinus rhythm ST DEVIATION AND MODERATE T-WAVE ABNORMALITY, CONSIDER LATERAL ISCHEMIA ST DEVIATION AND MODERATE T- WAVE ABNORMALITY, CONSIDER INFERIOR ISCHEMIA ABNORMAL ECG Since PREVIOUS TRACING , no significant change noted PREVIOUS TRACIN11/10/2016 01.13 DOCTOR: Natalia Sampson Interpretating Date/Time 11/10/2016 14:27:21
--- NOTE | 2016-11-10 14:30 | EKG ---
Date Performed: 11/10/2016 Time Performed: 01:13:34 PTAGE: 61 years EKG: SINUS TACHYCARDIA ST DEVIATION AND MODERATE T-WAVE ABNORMALITY, CONSIDER LATERAL ISCHEMIA S T DEVIATION AND MODERATE T-WAVE ABNORMALITY, CONSIDER INFERIOR ISCHEMIA ABNORMAL ECG Since PREVIOUS TRACING , no significant change noted PREVIOUS TRACIN09/25/2016 08.19 DOCTOR: Natalia Sampson Interpretating Date/Time 11/10/2016 14:28:18
[2016-11-10] MEDS ORDERED: amLODIPine BESYLATE 5 MG TAB PO ONE (15:15)
[2016-11-10] MEDS ORDERED: LISI-515 PO (15:41)
[2016-11-10] MEDS ORDERED: cloNIDine HCL 0.2 MG TAB PO ONE (17:30)
[2016-11-10] MEDS ORDERED: LISINOPRIL 10 MG TAB PO ONE (17:45)
== END 2016-11-10 18:33 | disposition home or self-care (01) ==
LOC: NEPE 00:33 → NEDA 03:12 → NEDH 06:52 → NEPFCDU 07:33
PROVIDERS: ADMIT Internal Medicine Interventional Cardiology; ATTEND Internal Medicine Interventional Cardiology
DX: R07.89 Other chest pain (principal); I11.0 Hypertensive heart disease with heart failure; I50.9 Heart failure, unspecified; F10.10 Alcohol abuse, uncomplicated; I48.91 Unspecified atrial fibrillation; F41.9 Anxiety disorder, unspecified; F32.9 Major depressive disorder, single episode, unspecified; J44.9 Chronic obstructive pulmonary disease, unspecified; Z87.891 Personal history of nicotine dependence; Z88.1 Allergy status to other antibiotic agents; Z88.0 Allergy status to penicillin; Z88.2 Allergy status to sulfonamides; Z88.8 Allergy status to other drugs, medicaments and biological substances; Z86.718 Personal history of other venous thrombosis and embolism
CPT/HCPCS: 71010; 78452; 80053; 80307; 82550; 83690; 83735; 84484; 85025; 85610; 85730; 93005; 93017; 96361; 96374; 96375; 99285; A9502; G0378; J1170; J2270; J2785; J7030; J7040

== ENCOUNTER 2016-12-02 05:06 | Emergency (ER) | payer MEDICAID ==
[~2016-12-02] VITALS: Ht 188 cm; Wt 107.0 kg
[~2016-12-02 05:06] MED LIST changes: -AMLO10TA2 PO; -ASPI81TA11 PO; -CARV6.25 PO; -GETGO ROLLING W1 MI1; -THIA100T PO
[2016-12-02 05:14] VITALS: PULSE 94; RESP 18; TEMP 98.7
[2016-12-02] MEDS ORDERED: CARV6.252 PO (05:20)
[2016-12-02] MEDS ORDERED: AMLO5TAB2 PO (05:20)
[2016-12-02 05:26] LABS: MEAN CORPUSCULAR HGB CONC 36.1 % (32.0-36.0)
[2016-12-02] MEDS ORDERED: LORazepam 2 MG/ML VIAL IV PUSH ONE ×2 (05:30→06:30)
[2016-12-02] MEDS ORDERED: SODIUM CHLORIDE 0.9% FLUSH 10 ML FLUSH IVF PRN (05:30)
[2016-12-02] MEDS ORDERED: MORPHINE SULFATE 8 MG/ML INJ IV PUSH ONE (05:30)
--- NOTE | 2016-12-02 05:50 | RADRPT ---
EXAM DATE/TIME: 12/02/2016 05:41 [facility] COMPARISON: CHEST SINGLE AP, November 10, 2016, 1:40. INDICATIONS : Chest pain. MEDICAL HISTORY : Chronic obstructive pulmonary disease. Hypertension SURGICAL HISTORY : None. ENCOUNTER: Initial ACUITY: 1 day PAIN SCORE: 6/10 LOCATION: Bilateral chest FINDINGS: A single view of the chest demonstrates the lungs to be symmetrically aerated without evidence of mas s, infiltrate or effusion. The cardiomediastinal contours are unremarkable. Osseous structures are intact. CONCLUSION: No acute disease. Elmer Llamas Jr., MD on December 02, 2016 at 5:48 Board Certified Radiologist. This report was verified electronically.
[2016-12-02 05:52] LABS: AUTOMATED NEUTROPHIL # 2.7 TH/MM3 (1.8-7.7); BASOPHIL % 0.5 % (0.0-2.0); EOSINOPHIL # 0.1 TH/MM3 (0-0.4); EOSINOPHIL % 3.1 % (0.0-4.0); HEMATOCRIT 40.8 % (39.0-51.0); LYMPH % 23.2 % (9.0-44.0); MEAN CELL VOLUME 94.4 FL (80.0-100.0); MEAN CORPUSCULAR HEMOGLOBIN 34.1 PG (27.0-34.0); MONO % 14.3 % (0.0-8.0); NEUT % 58.9 % (16.0-70.0); PLATELET COUNT 130 TH/MM3 (150-450); RED BLOOD COUNT 4.33 MIL/MM3 (4.50-5.90); RED CELL DISTRIBUTION WIDTH 14.6 % (11.6-17.2); WHITE BLOOD COUNT 4.5 TH/MM3 (4.0-11.0)
[2016-12-02 05:56] LABS: AMPHETAMINE, URINE NEG (NEG); BARBITURATES, URINE NEG (NEG); COCAINE, URINE NEG (NEG)
[2016-12-02 05:58] LABS: HEMO FLAGS AUTO DIFF
[2016-12-02 06:07] LABS: ANION GAP 13 MEQ/L (5-15); BICARBONATE 23.1 MEQ/L (21.0-32.0); BLOOD UREA NITROGEN 9 MG/DL (7-18); CHLORIDE 105 MEQ/L (98-107); GLOMERULAR FILTRATION RATE 110 ML/MIN (>89); MAGNESIUM 1.6 MG/DL (1.5-2.5); POTASSIUM 3.3 MEQ/L (3.5-5.1); SODIUM (NA) 141 MEQ/L (136-145)
[2016-12-02 06:11] LABS: APTT (PATIENT) 24.3 SEC (24.3-30.1); CREATINE KINASE 255 U/L (39-308)
[2016-12-02] MEDS ORDERED: POTASSIUM CHLORIDE 20 MEQ CONTROLLED RELEASE TAB PO ONE (06:15)
--- NOTE | 2016-12-02 06:16 | PD ---
HPI Chief Complaint: Chest Pain Time Seen by Provider: 05:17 Travel History International Travel<30 days: No Contact w/Intl Traveler<30days: No Traveled to known affect area: No History of Present Illness HPI 61-year-old male arrives complaining chest pain. He has been drinking alcohol about 2 pints of alcohol daily. He quit drinking 2 days ago. Location is retrosternal. Duration has been several hours. He also feels quite anxious. Severity moderate. Location generalized. PFSH Past Medical History Hx Anticoagulant Therapy: Yes (DVT-ASA) Arthritis: Yes (bursitis tendonitis) Asthma: No Atrial Fibrillation: Yes Autoimmune Disease: No Blood Disorders: No Anxiety: Yes Depression: Yes Heart Rhythm Problems: Yes (LBBB, afib RVR) Cancer: No Cardiovascular Problems: Yes (A FIB RVR, CHF, HTN left bundle branch) High Cholesterol: No Chest Pain: Yes Congestive Heart Failure: Yes COPD: Yes Cerebrovascular Accident: No Diabetes: No Diminished Hearing: No Endocrine: No Gastrointestinal Disorders: No Genitourinary: Yes (not urinating "a lot") Headaches: No Hypertension: Yes Immune Disorder: No Implanted Vascular Access Dvce: No Kidney Stones: Yes Musculoskeletal: Yes (many broken bones in the past) Neurologic: Yes (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) Psychiatric: No Reproductive: No Respiratory: Yes (COPD) Immunizations Current: Yes Migraines: No Seizures: Yes Shingles: Yes Sleep Apnea: No Ulcer: No Past Surgical History Abdominal Surgery: Yes (HERNIA REPAIR) Cardiac Surgery: No Ear Surgery: No Endocrine Surgery: No Eye Surgery: No Genitourinary Surgery: No Gynecologic Surgery: No Neurologic Surgery: No Oral Surgery: No Thoracic Surgery: No Tonsillectomy: Yes Other Surgery: Yes Family History Family Myocardial Infarction: Yes (maternal) Social History Alcohol Use: Yes (1-2 PINTS DAILY VODKA..QUIT 2 DAYAS AGO) Tobacco Use: Yes Substance Use: No Allergies-Medications (Allergen,Severity, Reaction): Coded Allergies: Keflex (Verified Allergy, Severe, hives, 12/02/16) Penicillin (Verified Allergy, Severe, hives, 12/02/16) Sulfa (Verified Allergy, Severe, hives, 12/02/16) Nitroglycerin (Verified Allergy, Mild, 12/02/16) vomit Reported Meds & Prescriptions Reported Meds & Active Scripts Active Chlordiazepoxide (Chlordiazepoxide HCl) 25 Mg Cap 25 Mg PO TID PRN Lisinopril 20 Mg Tab 20 Mg PO DAILY Reported Carvedilol 6.25 Mg Tab 6.25 Mg PO BID Amlodipine (Amlodipine Besylate) 5 Mg Tab 5 Mg PO DAILY Review of Systems Except as stated in HPI: all other systems reviewed are Neg Physical Exam Narrative GENERAL: 61 yo M, WNWD, NAD SKIN: Warm and dry. HEAD: Atraumatic. Normocephalic. EYES: Pupils equal and round. No scleral icterus. No injection or drainage. ENT: No nasal bleeding or discharge. Mucous membranes pink and moist. NECK: Trachea midline. No JVD. CARDIOVASCULAR: Regular rate and rhythm. RESPIRATORY: No accessory muscle use. Clear to auscultation. Breath sounds equal bilaterally. GASTROINTESTINAL: Abdomen soft, non-tender, nondistended. Hepatic and splenic margins not palpable. MUSCULOSKELETAL: Extremities without clubbing, cyanosis, or edema. No obvious deformities. NEUROLOGICAL: Awake and alert. No obvious cranial nerve deficits. Motor grossly within normal limits. Five out of 5 muscle strength in the arms and legs. Normal speech. PSYCHIATRIC: Appropriate mood and affect; insight and judgment normal. Data Data Last Documented VS Vital Signs Date Time Temp Pulse Resp B/P Pulse Ox O2 Delivery O2 Flow Rate FiO2 12/02/16 05:14 98.7 94 18 Orders Electrocardiogram (12/02/16 05:21) Basic Metabolic Panel (Bmp) (12/02/16 05:21) Ckmb (Isoenzyme) Profile (12/02/16 05:21) Complete Blood Count With Diff (12/02/16 05:21) Magnesium (Mg) (12/02/16 05:21) Prothrombin Time / Inr (Pt) (12/02/16 05:21) Act Partial Throm Time (Ptt) (12/02/16 05:21) Troponin I (12/02/16 05:21) Chest, Single Ap (12/02/16 05:21) Ecg Monitoring (12/02/16 05:21) Iv Access Insert/Monitor (12/02/16 05:21) Oximetry (12/02/16 05:21) Oxygen Administration (12/02/16 05:21) Sodium Chloride 0.9% Flush (Ns Flush) (12/02/16 05:30) Morphine Inj (Morphine Inj) (12/02/16 05:30) Lorazepam Inj (Ativan Inj) (12/02/16 05:30) Drug Screen, Random Urine (12/02/16 05:26) CKMB (12/02/16 05:30) CKMB% (12/02/16 05:30) Potassium Chloride (Kcl) (12/02/16 06:15) Lorazepam Inj (Ativan Inj) (12/02/16 06:30) Sodium Chlor 0.9% 1000 Ml Inj (Ns 1000 M (12/02/16 06:30) Al-Mag Hy-Si 40-40-4 Mg/Ml Liq (Mag-Al P (12/02/16 06:30) Lidocaine 2% Viscous (Xylocaine 2% Visco (12/02/16 06:30) Labs Laboratory Tests Test 12/02/16 05:30 White Blood Count 4.5 TH/MM3 Red Blood Count 4.33 MIL/MM3 Hemoglobin 14.7 GM/DL Hematocrit 40.8 % Mean Corpuscular Volume 94.4 FL Mean Corpuscular Hemoglobin 34.1 PG Mean Corpuscular Hemoglobin 36.1 % Concent Red Cell Distribution Width 14.6 % Platelet Count 130 TH/MM3 Mean Platelet Volume 6.8 FL Neutrophils (%) (Auto) 58.9 % Lymphocytes (%) (Auto) 23.2 % Monocytes (%) (Auto) 14.3 % Eosinophils (%) (Auto) 3.1 % Basophils (%) (Auto) 0.5 % Neutrophils # (Auto) 2.7 TH/MM3 Lymphocytes # (Auto) 1.0 TH/MM3 Monocytes # (Auto) 0.6 TH/MM3 Eosinophils # (Auto) 0.1 TH/MM3 Basophils # (Auto) 0.0 TH/MM3 CBC Comment AUTO DIFF Differential Comment AUTO DIFF CONFIRMED Prothrombin Time 11.0 SEC Prothromb Time International 1.0 RATIO Ratio Activated Partial 24.3 SEC Thromboplast Time Sodium Level 141 MEQ/L Potassium Level 3.3 MEQ/L Chloride Level 105 MEQ/L Carbon Dioxide Level 23.1 MEQ/L Anion Gap 13 MEQ/L Blood Urea Nitrogen 9 MG/DL Creatinine 0.72 MG/DL Estimat Glomerular Filtration 110 ML/MIN Rate Random Glucose 104 MG/DL Calcium Level 7.8 MG/DL Magnesium Level 1.6 MG/DL Total Creatine Kinase 255 U/L Creatine Kinase MB 2.4 NG/ML Troponin I 0.02 NG/ML Urine Opiates Screen NEG Urine Barbiturates Screen NEG Urine Amphetamines Screen NEG Urine Benzodiazepines Screen NEG Urine Cocaine Screen NEG Urine Cannabinoids Screen NEG MDM Medical Decision Making Medical Screen Exam Complete: Yes Emergency Medical Condition: Yes Medical Record Reviewed: Yes Differential Diagnosis NSTEMI, unstable angina, coronary vasospasm, PE, PTX, aortic dissection, pericarditis, myocarditis, endocarditis, PNA, esophageal disease, aneurysm, musculoskeletal etiologies, anxiety, cocaine/sympathomimetic abuse Narrative Course CBC & BMP Diagram 12/02/16 05:30 Tn < 0.02 Toxicology carranza-negative INR 1.0 EKG reveals a sinus rhythm The patient is resting comfortably and feels better, is alert and in no distress. The patients results and examination findings were discussed. The repeat examination is unremarkable and benign. The history, exam, diagnostic testing, and current condition do not suggest any significant pathology to warrant further testing, continued ED treatment, admission, or surgical evaluation at this point. The vital signs have been stable. The patient does not have uncontrollable pain, intractable vomiting, or other significant symptoms. The patient's condition is stable and appropriate for discharge. The patient will pursue further outpatient evaluation with a primary care physician or other designated or consulting physician as indicated in the discharge instructions. The patient expressed understanding and was agreeable with this plan. Diagnosis Primary Impression: Chest pain Qualified Code: R07.9 - Chest pain, unspecified type Additional Impression: Alcohol abuse Referrals: Primary Care Physician 2 days Additional Instructions: You have a choice when it comes to health care, and we are glad that you chose [facility]. Hopefully, we have met your expectations on today's visit. You are welcome to return to [facility] at any time, as we are committed to meeting the health care needs of our community. Med/Other Pt SpecificInfo: No Change to Meds Scripts Chlordiazepoxide 25 Mg Cap25 Mg PO TID PRN (SEVERE ANXIETY OR AGITATION) #15 CAP Ref 0 Prov:Jai Norman MD 12/02/16 Disposition: 01 DISCHARGE HOME Condition: Stable Jai Norman MD Dec 02, 2016 06:16
[2016-12-02 06:23] LABS: CKMB 2.4 NG/ML (0.5-3.6)
[2016-12-02] MEDS ORDERED: ALUMINUM/MAGNESIUM/SIMETH 30 ML CUP PO ONE (06:30)
[2016-12-02] MEDS ORDERED: LIDOCAINE VISCOUS 2% SOLN 15 ML UDC PO ONE (06:30)
[2016-12-02] MEDS ORDERED: SODIUM CHLOR 0.9% 1000 ML INJ 1,000 ML IV ONE (06:30)
[2016-12-02 06:41] LABS: SCAN/DIFF AUTO DIFF CONFIRMED
[2016-12-02] MEDS ORDERED: CHLO25CA2 PO (06:45)
--- NOTE | 2016-12-02 13:46 | EKG ---
Date Performed: 12/02/2016 Time Performed: 05:22:33 PTAGE: 61 years EKG: Sinus rhythm NONSPECIFIC ST & T-WAVE ABNORMALITY T inversion slightly improved Compared to previous tracing ALEXANDER ASTORGA ECG PREVIOUS TRACING : 11/10/2016 08.50 DOCTOR: Wade Cohen Interpretating Date/Time 12/02/2016 13:40:01
== END 2016-12-02 09:10 | disposition home or self-care (01) ==
LOC: NEPE 05:06
DX: R07.9 Chest pain, unspecified (principal); F10.10 Alcohol abuse, uncomplicated; R94.31 Abnormal electrocardiogram [ECG] [EKG]; I48.91 Unspecified atrial fibrillation; I44.7 Left bundle-branch block, unspecified; I50.9 Heart failure, unspecified; I10 Essential (primary) hypertension; J44.9 Chronic obstructive pulmonary disease, unspecified; Z86.718 Personal history of other venous thrombosis and embolism; Z87.442 Personal history of urinary calculi; Z72.0 Tobacco use
CPT/HCPCS: 71010; 80048; 80307; 82550; 82552; 83735; 84484; 85025; 85610; 85730; 93005; 96361; 96374; 96376; 99285; J2060; J7030

== ENCOUNTER 2016-12-14 21:24 | Inpatient (IN) | payer MEDICAID ==
[~2016-12-14] VITALS: Ht 188 cm; Wt 100.7 kg
[~2016-12-14 21:24] MED LIST changes: +AMLO5TAB2 PO; +CARV6.252 PO; +CHLO25CA2 PO
[2016-12-14 21:36] VITALS: BP 195/131; PULSE 98; RESP 15; TEMP 98; O2SAT 99
[2016-12-14] MEDS ORDERED: HYDR10TA23 PO (23:12)
[2016-12-14 23:16] VITALS: BP 183/122; PULSE 99; RESP 20; RESP 22; O2SAT 97
[2016-12-14] MEDS ORDERED: SODIUM CHLOR 0.9% 1000 ML INJ 1,000 ML IV ONE (23:43)
[2016-12-14] MEDS ORDERED: SODIUM CHLORIDE 0.9% FLUSH 10 ML FLUSH IVF PRN (23:45)
[2016-12-14] MEDS ORDERED: cloNIDine HCL 0.1 MG TAB PO ONE (23:45)
[2016-12-14 23:50] VITALS: O2SAT 98
[2016-12-14] MEDS: LORazepam 2 MG/ML VIAL IV PUSH ONE ×2 (23:56→23:57)
[2016-12-15] VITALS (13 sets, daily range): BP systolic 160–192; BP diastolic 78–125; PULSE 78–98; RESP 17–22; TEMP 97.3–98.7; O2SAT 93–98
[2016-12-15 00:12] LABS: BASOPHIL % 0.8 % (0.0-2.0); EOSINOPHIL # 0.2 TH/MM3 (0-0.4); EOSINOPHIL % 4.3 % (0.0-4.0); HEMATOCRIT 43.6 % (39.0-51.0); HEMO FLAGS DIFF FINAL; LYMPH % 29.4 % (9.0-44.0); LYMPHOCYTE # 1.3 TH/MM3 (1.0-4.8); MEAN CELL VOLUME 96.4 FL (80.0-100.0); MEAN CORPUSCULAR HEMOGLOBIN 33.9 PG (27.0-34.0); MEAN CORPUSCULAR HGB CONC 35.2 % (32.0-36.0); MONO % 18.7 % (0.0-8.0); NEUT % 46.8 % (16.0-70.0); PLATELET COUNT 125 TH/MM3 (150-450); RED BLOOD COUNT 4.53 MIL/MM3 (4.50-5.90); RED CELL DISTRIBUTION WIDTH 15.6 % (11.6-17.2); WHITE BLOOD COUNT 4.4 TH/MM3 (4.0-11.0)
--- NOTE | 2016-12-15 00:15 | PD ---
HPI Chief Complaint: Pain: Acute or Chronic Time Seen by Provider: 23:43 Travel History International Travel<30 days: No Contact w/Intl Traveler<30days: No Traveled to known affect area: No History of Present Illness HPI 61-year-old male presents to the emergency department by EMS transport for evaluation of syncope. According to the patient he drinks alcohol daily and earlier today was drinking alcohol. Patient states sometime earlier in the evening "while it was still light outside" he had a syncopal episode that was reportedly witnessed by his friend to reportedly called EMS to transport him to the hospital. Patient states that he does not know how long he was unconscious. Patient does not believe he had any seizure activity and his friend did not report any seizure activity; nor did he have any bladder or bowel incontinence or tongue trauma. Patient reports that he experienced chest pain and then collapsed. Patient states upon awakening he noticed that he still had sharp chest pain as well as some arm discomfort and numbness and then has pain into his left lower extremity. Patient thinks that the episode happened sometime between 5:30 and 7:30 but he is unsure of the time. Patient does not know if he hit his head but does not complain of a headache or neck pain. Patient does admit that he is feeling tremulous and he has had withdrawal seizures before but does not take seizure medication. Patient states that he is supposed to take blood pressure medication but frequently forgets to do so. Patient does not report any sudden onset thunderclap or worst ever headache visual disturbance change in speech or balance disturbance. Patient recently underwent stress test in October that was negative reportedly. PFSH Past Medical History Narrative Medical Aspirin use, DVT, CHF, COPD, HTN, atrial fibrillation, left bundle branch block , kidney stones, alcohol withdrawal seizure, arthritis, herniorrhaphy, tonsillectomy; tobacco use alcohol use; nursing notes reviewed Hx Anticoagulant Therapy: Yes (DVT-ASA) Arthritis: Yes (bursitis tendonitis) Asthma: No Atrial Fibrillation: Yes Autoimmune Disease: No Blood Disorders: No Anxiety: Yes Depression: Yes Heart Rhythm Problems: Yes (LBBB, afib RVR) Cancer: No Cardiovascular Problems: Yes (A FIB RVR, CHF, HTN left bundle branch) High Cholesterol: No Chest Pain: Yes Congestive Heart Failure: Yes COPD: Yes Cerebrovascular Accident: No Diabetes: No Diminished Hearing: No Endocrine: No Gastrointestinal Disorders: No Genitourinary: Yes (not urinating "a lot") Headaches: No Hypertension: Yes Immune Disorder: No Implanted Vascular Access Dvce: No Kidney Stones: Yes Musculoskeletal: Yes (many broken bones in the past) Neurologic: Yes (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) Psychiatric: No Reproductive: No Respiratory: Yes (COPD) Immunizations Current: Yes Migraines: No Seizures: Yes Shingles: Yes Sleep Apnea: No Ulcer: No Tetanus Vaccination: Unknown Influenza Vaccination: No Past Surgical History Abdominal Surgery: Yes (HERNIA REPAIR) Cardiac Surgery: No Ear Surgery: No Endocrine Surgery: No Eye Surgery: No Genitourinary Surgery: No Gynecologic Surgery: No Neurologic Surgery: No Oral Surgery: No Thoracic Surgery: No Tonsillectomy: Yes Other Surgery: Yes Family History Family Myocardial Infarction: Yes (maternal) Social History Alcohol Use: Yes (1-2 PINTS DAILY VODKA) Tobacco Use: No (quit months ago ) Substance Use: No Allergies-Medications (Allergen,Severity, Reaction): Coded Allergies: Keflex (Verified Allergy, Severe, hives, 12/14/16) Penicillin (Verified Allergy, Severe, hives, 12/14/16) Sulfa (Verified Allergy, Severe, hives, 12/14/16) Nitroglycerin (Verified Allergy, Mild, 12/14/16) vomit Reported Meds & Prescriptions Reported Meds & Active Scripts Active Chlordiazepoxide (Chlordiazepoxide HCl) 25 Mg Cap 25 Mg PO TID PRN Reported Hydralazine (Hydralazine HCl) 10 Mg Tab 10 Mg PO TID Take with a meal Review of Systems Except as stated in HPI: all other systems reviewed are Neg General / Constitutional: No: Fever, Chills HENT: No: Congestion Cardiovascular: Positive: Chest Pain or Discomfort Respiratory: No: Shortness of Breath, Pleuritic Pain Gastrointestinal: No: Abdominal Pain Genitourinary: No: Flank Pain Musculoskeletal: No: Myalgias, Arthralgias Skin: No Rash Neurologic: Positive: Syncope, No: Weakness Psychiatric: No: Anxiety Endocrine: No: Heat Intolerance Hematologic/Lymphatic: No: Easy Bruising Physical Exam Narrative GENERAL: Well-developed well-nourished male in no acute distress no respiratory distress; GCS 15 SKIN: Warm and dry. HEAD: Atraumatic. Normocephalic. EYES: Pupils equal and round. No scleral icterus. No injection or drainage. ENT: No nasal bleeding or discharge. Mucous membranes pink and moist. No tongue trauma. Airway is patent. NECK: Trachea midline. No JVD. Supple. No midline tenderness or bony step-off to direct palpation. CARDIOVASCULAR: Regular rate and rhythm. RESPIRATORY: No accessory muscle use. Clear to auscultation. Breath sounds equal bilaterally. GASTROINTESTINAL: Abdomen soft, non-tender, nondistended. Hepatic and splenic margins not palpable. MUSCULOSKELETAL: Extremities without clubbing, cyanosis, or edema. No obvious deformities. NEUROLOGICAL: Awake and alert. No obvious cranial nerve deficits. Motor grossly within normal limits. Five out of 5 muscle strength in the arms and legs. No limb ataxia. No pronator drift. Sensory exam grossly intact. Normal speech. PSYCHIATRIC: Appropriate mood and affect; insight and judgment normal. Data Data Last Documented VS Vital Signs Date Time Temp Pulse Resp B/P Pulse Ox O2 Delivery O2 Flow Rate FiO2 12/15/16 04:16 98.7 87 18 167/78 95 Nasal Cannula 2 Orders Electrocardiogram (12/14/16 23:43) Complete Blood Count With Diff (12/14/16 23:43) Magnesium (Mg) (12/14/16 23:43) Ckmb (Isoenzyme) Profile (12/14/16 23:43) Troponin I (12/14/16 23:43) Act Partial Throm Time (Ptt) (12/14/16 23:43) Prothrombin Time / Inr (Pt) (12/14/16 23:43) Ua Includes Microscopic (12/14/16 23:43) Chest, Single Ap (12/14/16 23:43) Ct Brain W/O Iv Contrast(Rout) (12/14/16 23:43) Ecg Monitoring (12/14/16 23:43) Iv Access Insert/Monitor (12/14/16 23:43) Oximetry (12/14/16 23:43) Sodium Chloride 0.9% Flush (Ns Flush) (12/14/16 23:45) Sodium Chlor 0.9% 1000 Ml Inj (Ns 1000 M (12/14/16 23:43) Clonidine (Catapres) (12/14/16 23:45) Lorazepam Inj (Ativan Inj) (12/14/16 23:45) Alcohol (Ethanol) (12/14/16 23:43) Drug Screen, Random Urine (12/14/16 23:43) Basic Metabolic Panel (Bmp) (12/14/16 23:43) CKMB (12/15/16 00:00) CKMB% (12/15/16 00:00) Potassium Chloride (Kcl) (12/15/16 04:15) Aspirin Chew (Aspirin Chew) (12/15/16 09:00) Bedside Glucose WONG.AC&HS (12/15/16 04:18) Intake + Output WONG.QSHIFT (12/15/16 04:18) Alcohol Withdrawal Asmt-Ciwa Q4HX18 (12/15/16 04:18) ^ Seizure Precautions (12/15/16 04:18) Multivitamin Inj (Mvi-12 Inj)... (12/15/16 04:30) Thiamine Inj (Thiamine Inj) (12/15/16 04:30) Thiamine (Vit B1) (Vitamin B1) (12/18/16 09:00) Consult Cm-Etoh Abuse Dc Plan (12/15/16 ) Flumazenil Inj (Romazicon Inj) (12/15/16 04:30) Lorazepam (Ativan) (12/15/16 04:30) Lorazepam Inj (Ativan Inj) (12/15/16 04:30) Lorazepam (Ativan) (12/15/16 04:30) Lorazepam Inj (Ativan Inj) (12/15/16 04:30) Lorazepam Inj (Ativan Inj) (12/15/16 04:30) Lorazepam Inj (Ativan Inj) (12/15/16 04:30) Haloperidol Inj (Haldol Inj) (12/15/16 04:30) Admit To Inpatient (12/15/16 ) Vital Signs (Adult) Q4H (12/15/16 04:18) Activity Oob With Assistance (12/15/16 04:18) Encoding Machine Operator / Telemetry .CONTINUOUS (12/15/16 04:18) Intake + Output WONG.QSHIFT (12/15/16 04:18) Diet Heart Healthy (12/15/16 Breakfast) Sodium Chloride 0.9% Flush (Ns Flush) (12/15/16 04:30) Sodium Chloride 0.9% Flush (Ns Flush) (12/15/16 09:00) Ondansetron Inj (Zofran Inj) (12/15/16 04:30) Bisacodyl Supp (Dulcolax Supp) (12/15/16 04:30) Comprehensive Metabolic Panel (12/16/16 06:00) Complete Blood Count With Diff (12/16/16 06:00) Troponin I (12/15/16 06:00) Troponin I (12/15/16 12:00) Scd Bilateral/Knee High WONG.BID (12/15/16 04:18) Jacek Bilateral/Knee High WONG.QSHIFT (12/15/16 04:18) Acetaminophen (Tylenol) (12/15/16 04:30) Acetamin-Hydrocod 325-5 Mg ([place] 5-325 (12/15/16 04:30) Morphine Inj (Morphine Inj) (12/15/16 04:30) Inpatient Certification (12/15/16 ) Echo 2d Comp W/Dopp(Routine) (12/15/16 ) Admit Order (Ed Use Only) (12/15/16 ) ^ Saline Lock (12/15/16 04:34) Resp Oxygen Melecio C Titrat 1-4 L (12/15/16 ) Notify Dr: Other (12/15/16 04:34) Sodium Chloride 0.9% Flush (Ns Flush) (12/15/16 09:00) Sodium Chloride 0.9% Flush (Ns Flush) (12/15/16 04:45) Labs Laboratory Tests Test 12/15/16 12/15/16 00:00 00:05 White Blood Count 4.4 TH/MM3 Red Blood Count 4.53 MIL/MM3 Hemoglobin 15.3 GM/DL Hematocrit 43.6 % Mean Corpuscular Volume 96.4 FL Mean Corpuscular Hemoglobin 33.9 PG Mean Corpuscular Hemoglobin 35.2 % Concent Red Cell Distribution Width 15.6 % Platelet Count 125 TH/MM3 Mean Platelet Volume 7.4 FL Neutrophils (%) (Auto) 46.8 % Lymphocytes (%) (Auto) 29.4 % Monocytes (%) (Auto) 18.7 % Eosinophils (%) (Auto) 4.3 % Basophils (%) (Auto) 0.8 % Neutrophils # (Auto) 2.0 TH/MM3 Lymphocytes # (Auto) 1.3 TH/MM3 Monocytes # (Auto) 0.8 TH/MM3 Eosinophils # (Auto) 0.2 TH/MM3 Basophils # (Auto) 0.0 TH/MM3 CBC Comment DIFF FINAL Differential Comment Prothrombin Time 10.6 SEC Prothromb Time International 1.0 RATIO Ratio Activated Partial 25.0 SEC Thromboplast Time Sodium Level 144 MEQ/L Potassium Level 3.2 MEQ/L Chloride Level 105 MEQ/L Carbon Dioxide Level 27.2 MEQ/L Anion Gap 12 MEQ/L Blood Urea Nitrogen 9 MG/DL Creatinine 0.85 MG/DL Estimat Glomerular Filtration 91 ML/MIN Rate Random Glucose 106 MG/DL Calcium Level 8.2 MG/DL Magnesium Level 2.1 MG/DL Total Creatine Kinase 283 U/L Creatine Kinase MB 2.1 NG/ML Troponin I LESS THAN 0.02 NG/ML Ethyl Alcohol Level 218 MG/DL Urine Color YELLOW Urine Turbidity CLEAR Urine pH 6.0 Urine Specific [place] 1.018 Urine Protein 30 mg/dL Urine Glucose (UA) NEG mg/dL Urine Ketones NEG mg/dL Urine Occult Blood SMALL Urine Nitrite NEG Urine Bilirubin NEG Urine Urobilinogen LESS THAN 2.0 MG/DL Urine Leukocyte Esterase NEG Urine RBC 3 /hpf Urine WBC LESS THAN 1 /hpf Urine Mucus FEW /lpf Microscopic Urinalysis Comment Urine Opiates Screen NEG Urine Barbiturates Screen NEG Urine Amphetamines Screen NEG Urine Benzodiazepines Screen POS Urine Cocaine Screen NEG Urine Cannabinoids Screen NEG MDM Medical Decision Making Medical Screen Exam Complete: Yes Emergency Medical Condition: Yes Medical Record Reviewed: Yes Interpretation(s) EKG: Normal sinus rhythm rate [address]-T changes no acute ST elevation or injury pattern Differential Diagnosis Syncope, arrhythmia, ACS, DC, PE, TIA, seizure, CVA, hypertensive urgency, alcohol withdrawal, sciatica Narrative Course 61-year-old male with chest pain and syncope will evaluate for ACS myocardial infarction PE at this time symmetric pulses and no back pain no abdominal pain also to consider dissection; blood pressure markedly elevated and patient tremulous will treat with Ativan for early alcohol withdrawal and states she is allergic to nitroglycerin therefore will start with clonidine for blood pressure management although may require IV medication for blood pressure control. After CT brain noncontrast deformity there is no evidence for bleed will administer aspirin; EKG performed normal sinus rhythm rate [address] elevation or injury pattern change nonspecific ST-T wave abnormality bilaterally. Patient resting comfortably waiting on lab results voicing no concerns or complaints . Patient continues to rest comfortably after Ativan no tremulousness Imaging study resulted without any acute abnormality by CT brain noncontrast Patient's case discussed with on-call physician regarding syncope chest pain and alcohol withdrawal symptoms for admission Physician Communication Physician Communication discussed with Dr Chawla will admit as inpatient Diagnosis Primary Impression: Syncope Qualified Code: R55 - Syncope, unspecified syncope type Additional Impressions: Chest pain Qualified Code: R07.2 - Precordial pain Alcohol withdrawal Qualified Code: F10.230 - Alcohol withdrawal, uncomplicated Admitting Information Admitting Physician Requests: Admit Keira Shah MD December 15, 2016 00:15
[2016-12-15 00:24] LABS: PROTHROMBIN TIME - PATIENT 10.6 SEC (9.8-11.6)
[2016-12-15 00:27] LABS: CREATINE KINASE 283 U/L (39-308)
[2016-12-15 00:28] LABS: ANION GAP 12 MEQ/L (5-15); BICARBONATE 27.2 MEQ/L (21.0-32.0); BLOOD UREA NITROGEN 9 MG/DL (7-18); CHLORIDE 105 MEQ/L (98-107); GLOMERULAR FILTRATION RATE 91 ML/MIN (>89); MAGNESIUM 2.1 MG/DL (1.5-2.5); POTASSIUM 3.2 MEQ/L (3.5-5.1); SODIUM (NA) 144 MEQ/L (136-145)
[2016-12-15 00:32] LABS: BLOOD, URINE SMALL (NEG); GLUCOSE,URINE NEG (NEG); KETONE, URINE NEG (NEG); MUCUS URINE FEW /lpf (OCC); NITRITE,URINE NEG (NEG); URINE COLOR YELLOW (YELLW/STRAW)
[2016-12-15 00:39] LABS: CKMB 2.1 NG/ML (0.5-3.6)
--- NOTE | 2016-12-15 00:43 | RADRPT ---
EXAM DATE/TIME: 12/15/2016 00:29 [facility] COMPARISON: CHEST SINGLE AP, December 02, 2016, 5:41. INDICATIONS : Chest pain. MEDICAL HISTORY : None. SURGICAL HISTORY : None. ENCOUNTER: Initial ACUITY: 1 day PAIN SCORE: 4/10 LOCATION: Bilateral chest FINDINGS: A single view of the chest demonstrates the lungs to be symmetrically aerated without evidence of mas s, infiltrate or effusion. The cardiomediastinal contours are unremarkable. Osseous structures are intact. CONCLUSION: No acute disease. Kevin Polanco MD on December 15, 2016 at 0:41 Board Certified Radiologist. This report was verified electronically.
[2016-12-15 00:46] LABS: AMPHETAMINE, URINE NEG (NEG); BARBITURATES, URINE NEG (NEG); COCAINE, URINE NEG (NEG)
--- NOTE | 2016-12-15 03:34 | RADRPT ---
EXAM DATE/TIME: 12/15/2016 02:59 [facility] COMPARISON: CT BRAIN W/O CONTRAST, September 21, 2016, 5:08. No previous studies available for comparison. INDICATIONS : Dizziness. RADIATION DOSE: 56.35 CTDIvol (mGy) MEDICAL HISTORY : Hypertension. A-fib. Anxiety. SURGICAL HISTORY : None. ENCOUNTER: Initial ACUITY: 1 day PAIN SCALE: 0/10 LOCATION: cranial TECHNIQUE: Multiple contiguous axial images were obtained of the head. Using automated exposure control and adj ustment of the mA and/or kV according to patient size, radiation dose was kept as low as reasonably a chievable to obtain optimal diagnostic quality images. FINDINGS: CEREBRUM: The ventricles are normal for age. No evidence of midline shift, mass lesion, hemorrhage or acute in farction. No extra-axial fluid collections are seen. POSTERIOR FOSSA: The cerebellum and brainstem are intact. The 4th ventricle is midline. The cerebellopontine angle i s unremarkable. EXTRACRANIAL: The visualized portion of the orbits is intact. SKULL: The calvaria is intact. No evidence of skull fracture. CONCLUSION: No acute intracranial disease. Kevin Polanco MD on December 15, 2016 at 3:31 Board Certified Radiologist. This report was verified electronically.
[2016-12-15] MEDS ORDERED: POTASSIUM CHLORIDE 20 MEQ CONTROLLED RELEASE TAB PO ONE (04:15)
[2016-12-15] MEDS ORDERED: ACETAMINOPHEN/HYDROcodone 325 MG/5 MG TAB PO PRN (04:30)
[2016-12-15] MEDS ORDERED: LORazepam 2 MG/ML VIAL IV PUSH PRN ×3 (04:30)
[2016-12-15] MEDS ORDERED: LORazepam 2 MG TAB PO PRN (04:30)
[2016-12-15] MEDS ORDERED: ACETAMINOPHEN 325 MG TAB PO PRN (04:30)
[2016-12-15] MEDS ORDERED: HALOPERIDOL LACTATE 5 MG/ML AMP IM PRN (04:30)
[2016-12-15] MEDS ORDERED: FLUMAZENIL 0.5 MG/5 ML VIAL IV PUSH PRN (04:30)
[2016-12-15] MEDS ORDERED: SODIUM CHLORIDE 0.9% FLUSH 10 ML FLUSH IV FLUSH PRN (04:30)
[2016-12-15] MEDS ORDERED: BISACODYL 10 MG SUPP RECTAL PRN (04:30)
[2016-12-15] MEDS: THIAMINE INJ 100 MG in SODIUM CHLORIDE 0.9% INJ 100 ML IV SCH (04:42)
[2016-12-15] MEDS: ONDANSETRON HCL 4 MG/2 ML VIAL IVP PRN ×2 (04:43→14:51)
[2016-12-15] MEDS: LORazepam 2 MG/ML VIAL IV PUSH PRN ×3 (04:43→20:13)
[2016-12-15] MEDS: MORPHINE SULFATE 4 MG/ML INJ IV PRN ×3 (04:43→10:12)
[2016-12-15] MEDS ORDERED: SODIUM CHLORIDE 0.9% FLUSH 10 ML FLUSH IVF PRN (04:45)
[2016-12-15] MEDS: MULTIVITAMIN INJ 10 ML, FOLIC ACID INJ 1 MG in SODIUM CHLORID 0.9% 500 ML INJ 500 ML IV SCH (05:05)
--- NOTE | 2016-12-15 05:12 | HHI.HP ---
[facility] Jessica Flores MD Admission Diagnosis syncope; chest pain; alcohol withdrawal Diagnoses: (1) Syncope Diagnosis: Principal (2) Chest pain Diagnosis: Principal (3) Alcohol withdrawal Diagnosis: Principal (4) Hypokalemia Diagnosis: Principal (5) HTN (hypertension) Diagnosis: Principal Travel History International Travel<30 Days: No Contact w/Intl Traveler <30 Da: No Traveled to Known Affected Are: No History of Present Illness This is a 61-year-old male with PMH of HTN, COPD, A. fib, Alcohol Abuse and Alcohol Withdrawal Seizure who was brought the ER by EMS after a syncopal event. Patient has little recollection of events, states he was with a friend and had sudden syncopal episode at which time friend called 911. No history of similar symptoms in the past. Admit to daily drinking. When he came to, reported sharp substernal chest pain with radiation to left upper extremity, on arrival to ER noted to be tremulous. S/p Ativan. BP 195/131, HR 98, O2 sat 99 % on RA, Afebrile. CBC unremarkable except for platelets 125, previously 1:30 on 12/02/16. Chemistry unremarkable except for K+ 3.2 s/p replacement in ER. Trop negative. Urine Drug Screen positive for Benzo-received in ER. Alcohol 218. CT Head with no acute findings. CXR negative. Review of Systems Except as stated in HPI: all other systems reviewed are Neg ROS: 14 point review of systems otherwise negative. Past Family Social History Past Medical History PMH: HTN, COPD, A. fib, Alcohol Abuse and Alcohol Withdrawal Seizure Past Surgical History PAST SURGICAL HISTORY: Hernia Repair Allergies: Coded Allergies: Keflex (Verified Allergy, Severe, hives, 12/14/16) Penicillin (Verified Allergy, Severe, hives, 12/14/16) Sulfa (Verified Allergy, Severe, hives, 12/14/16) Nitroglycerin (Verified Allergy, Mild, 12/14/16) vomit Family History PAST FAMILY HISTORY: Reviewed. No h/o DM or CAD Social History PAST SOCIAL HISTORY: Drinks 1-2 pints a day. H/o tobacco. Negative for drugs. Physical Exam Vital Signs Vital Signs Date Time Temp Pulse Resp B/P Pulse Ox O2 Delivery O2 Flow Rate FiO2 12/15/16 04:16 98.7 87 18 167/78 95 Nasal Cannula 2 12/15/16 02:49 80 18 161/87 93 Nasal Cannula 2 12/15/16 00:22 78 18 173/103 98 Nasal Cannula 2 12/14/16 23:50 98 Room Air 12/14/16 23:16 99 22 183/122 97 Room Air 12/14/16 21:36 98.0 98 15 195/131 99 Room Air Physical Exam PE: GENERAL: Middle-aged male in no acute distress. Mildly tremulous on exam. HEENT: PERRLA, EOMI. No scleral icterus or conjunctival pallor. No lid lag or facial droop. CARDIOVASCULAR: Regular rate and rhythm. No obvious murmurs to auscultation. No chest tenderness to palpation. RESPIRATORY: No obvious rhonchi or wheezing. Clear to auscultation. Breath sounds equal bilaterally. GASTROINTESTINAL: Abdomen soft, non-tender, nondistended. BS normal. MUSCULOSKELETAL: Extremities without clubbing, cyanosis, or edema. No obvious deformities. NEUROLOGICAL: Awake, alert and oriented x4. No focal neurologic deficits. Moving both upper and lower extremities spontaneously. Laboratory Laboratory Tests Test 12/15/16 12/15/16 00:00 00:05 White Blood Count 4.4 Red Blood Count 4.53 Hemoglobin 15.3 Hematocrit 43.6 Mean Corpuscular Volume 96.4 Mean Corpuscular Hemoglobin 33.9 Mean Corpuscular Hemoglobin 35.2 Concent Red Cell Distribution Width 15.6 Platelet Count 125 Mean Platelet Volume 7.4 Neutrophils (%) (Auto) 46.8 Lymphocytes (%) (Auto) 29.4 Monocytes (%) (Auto) 18.7 Eosinophils (%) (Auto) 4.3 Basophils (%) (Auto) 0.8 Neutrophils # (Auto) 2.0 Lymphocytes # (Auto) 1.3 Monocytes # (Auto) 0.8 Eosinophils # (Auto) 0.2 Basophils # (Auto) 0.0 CBC Comment DIFF FINAL Differential Comment Prothrombin Time 10.6 Prothromb Time International 1.0 Ratio Activated Partial 25.0 Thromboplast Time Sodium Level 144 Potassium Level 3.2 Chloride Level 105 Carbon Dioxide Level 27.2 Anion Gap 12 Blood Urea Nitrogen 9 Creatinine 0.85 Estimat Glomerular Filtration 91 Rate Random Glucose 106 Calcium Level 8.2 Magnesium Level 2.1 Total Creatine Kinase 283 Creatine Kinase MB 2.1 Troponin I LESS THAN 0.02 Ethyl Alcohol Level 218 Urine Color YELLOW Urine Turbidity CLEAR Urine pH 6.0 Urine Specific [place] 1.018 Urine Protein 30 Urine Glucose (UA) NEG Urine Ketones NEG Urine Occult Blood SMALL Urine Nitrite NEG Urine Bilirubin NEG Urine Urobilinogen LESS THAN 2.0 Urine Leukocyte Esterase NEG Urine RBC 3 Urine WBC LESS THAN 1 Urine Mucus FEW Microscopic Urinalysis Comment Urine Opiates Screen NEG Urine Barbiturates Screen NEG Urine Amphetamines Screen NEG Urine Benzodiazepines Screen POS Urine Cocaine Screen NEG Urine Cannabinoids Screen NEG Result Diagram: 12/15/16 0000 12/15/16 0000 Assessment and Plan Problem List: (1) Syncope ICD Code: R55 Status: Acute (2) Alcohol abuse ICD Code: F10.10 Status: Chronic (3) Alcohol withdrawal ICD Code: F10.239 Status: Acute (4) Hypokalemia ICD Code: E87.6 Status: Acute (5) Chest pain ICD Code: R07.9 Status: Resolved (6) HTN (hypertension) ICD Code: I10 Status: Chronic Assessment and Plan A/P: 1. Syncope: acute syncopal event, witnessed by friend, h/o Alcohol Withdrawal Seizure however no reported seizure like activity. Telemetry, check serial cardiac enzymes, check Echo, IVF for hydration. CT Head w/ no acute findings, images reviewed by me. 2. Chest Pain: acute onset of chest pain and LUE numbness following syncope. Trop negative, EKG w/ no acute changes. Check serial cardiac enzymes. ASA- caution w/ thrombocytopenia, however no active bleeding. Morphine prn. No NTG due to Allergy. 3. Hypokalemia: K+ 3.2, s/p replacement in ER. Will recheck and replace as needed. 4. Alcohol Abuse: w/ Acute Alcohol Withdrawal. Drinks 1-2 pints of Vodka daily. Alcohol 218, +tremulous, +hypertensive/tachycardic. CIWA, Seizure Precautions, MVT/Thiamine/Folate replacement. 5. HTN: Non-compliant w/ medications. BP 180's likely compounded by withdrawal. Start CIWA as above, Clonidine if needed. 6. DVT Prophylaxis: SCD/Teds. 7. Social work for d/c planning as needed. 8. Case discussed w/ ER physician at length. Physician Certification 2 Midnight Certification Type: Admission for Inpatient Services Order for Inpatient Services The services are ordered in accordance with Medicare regulations or non- Medicare payer requirements, as applicable. In the case of services not specified as inpatient-only, they are appropriately provided as inpatient services in accordance with the 2-midnight benchmark. Estimated LOS (days): 2 days is the estimated time the patient will need to remain in the hospital, assuming treatment plan goals are met and no additional complications. Post-Hospital Plan: Not yet determined Problem Qualifiers (1) Syncope: Qualified Code: R55 - Syncope, unspecified syncope type (2) Chest pain: Qualified Code: R07.2 - Precordial pain (3) Alcohol withdrawal: Qualified Code: F10.230 - Alcohol withdrawal, uncomplicated Luz Maria Chawla MD December 15, 2016 05:12
[2016-12-15] MEDS ORDERED: cloNIDine HCL 0.1 MG TAB PO ONE (06:00)
[2016-12-15] MEDS: LORazepam 1 MG TAB PO PRN (07:10)
[2016-12-15] MEDS: ASPIRIN 81 MG CHEW TAB CHEW SCH (08:04)
[2016-12-15] MEDS: SODIUM CHLORIDE 0.9% FLUSH 10 ML FLUSH IV FLUSH SCH ×2 (08:05→20:17)
[2016-12-15] MEDS: ENALAPRILAT 1.25 MG/ML VIAL IV PUSH PRN ×3 (08:20→22:51)
[2016-12-15] MEDS ORDERED: SODIUM CHLORIDE 0.9% FLUSH 10 ML FLUSH IV FLUSH SCH (09:00)
[2016-12-15] MEDS: chlordiazePOXIDE 25 MG CAP PO SCH ×2 (11:02→17:44)
[2016-12-15] MEDS: oxyCODONE/ACETAMINOPHEN 10 MG/325 MG TAB PO PRN ×3 (12:23→20:14)
[2016-12-15 15:07] LABS: POTASSIUM 3.7 MEQ/L (3.5-5.1)
--- NOTE | 2016-12-15 15:29 | EKG ---
Date Performed: 12/14/2016 Time Performed: 23:16:02 PTAGE: 61 years EKG: Sinus rhythm NONSPECIFIC ST & T-WAVE ABNORMALITY BORDERLINE ECG PREVIOUS TRACING : 12/02/2016 05.22 DOCTOR: Phil Barros Interpretating Date/Time 12/15/2016 15:26:14
[2016-12-15] MEDS: cloNIDine HCL 0.1 MG TAB PO PRN (20:37)
[2016-12-15] MEDS ORDERED: diphenhydrAMINE HCL 50 MG CAP PO ONE (22:45)
[2016-12-16] VITALS (9 sets, daily range): BP systolic 159–201; BP diastolic 75–114; PULSE 73–87; RESP 20; TEMP 97.6–98.7; O2SAT 95–97
[2016-12-16] MEDS: LORazepam 2 MG/ML VIAL IV PUSH PRN ×2 (00:27→04:44)
[2016-12-16] MEDS: oxyCODONE/ACETAMINOPHEN 10 MG/325 MG TAB PO PRN ×3 (00:27→17:35)
[2016-12-16] MEDS: chlordiazePOXIDE 25 MG CAP PO SCH ×4 (00:27→18:36)
[2016-12-16] MEDS: THIAMINE INJ 100 MG in SODIUM CHLORIDE 0.9% INJ 100 ML IV SCH (04:30)
[2016-12-16] MEDS: MULTIVITAMIN INJ 10 ML, FOLIC ACID INJ 1 MG in SODIUM CHLORID 0.9% 500 ML INJ 500 ML IV SCH (04:45)
[2016-12-16 07:47] LABS: AUTOMATED NEUTROPHIL # 3.4 TH/MM3 (1.8-7.7); BASOPHIL % 0.5 % (0.0-2.0); EOSINOPHIL # 0.2 TH/MM3 (0-0.4); EOSINOPHIL % 3.4 % (0.0-4.0); HEMATOCRIT 40.2 % (39.0-51.0); LYMPH % 17.2 % (9.0-44.0); LYMPHOCYTE # 0.9 TH/MM3 (1.0-4.8); MEAN CELL VOLUME 97.7 FL (80.0-100.0); MEAN CORPUSCULAR HEMOGLOBIN 33.8 PG (27.0-34.0); MEAN CORPUSCULAR HGB CONC 34.7 % (32.0-36.0); MONO % 14.3 % (0.0-8.0); NEUT % 64.6 % (16.0-70.0); PLATELET COUNT 96 TH/MM3 (150-450); RED BLOOD COUNT 4.12 MIL/MM3 (4.50-5.90); RED CELL DISTRIBUTION WIDTH 15.7 % (11.6-17.2); WHITE BLOOD COUNT 5.3 TH/MM3 (4.0-11.0)
[2016-12-16 08:09] LABS: HEMO FLAGS AUTO DIFF
[2016-12-16 08:14] LABS: ALT (GPT) 29 U/L (12-78); ANION GAP 10 MEQ/L (5-15); AST (GOT) 42 U/L (15-37); BICARBONATE 27.5 MEQ/L (21.0-32.0); BLOOD UREA NITROGEN 12 MG/DL (7-18); CHLORIDE 102 MEQ/L (98-107); GLOMERULAR FILTRATION RATE 110 ML/MIN (>89); POTASSIUM 3.4 MEQ/L (3.5-5.1); SODIUM (NA) 139 MEQ/L (136-145)
[2016-12-16 08:15] LABS: ALKALINE PHOSPHATASE 50 U/L (45-117); TOTAL BILIRUBIN ADULT 0.7 MG/DL (0.2-1.0)
[2016-12-16] MEDS: SODIUM CHLORIDE 0.9% FLUSH 10 ML FLUSH IV FLUSH SCH ×2 (08:36→20:18)
[2016-12-16] MEDS: ASPIRIN 81 MG CHEW TAB CHEW SCH (08:36)
[2016-12-16] MEDS ORDERED: POTASSIUM CHLORIDE 10 MEQ CONTROLLED RELEASE TAB PO ONE (08:45)
[2016-12-16] MEDS: cloNIDine HCL 0.1 MG TAB PO PRN ×2 (08:52→18:36)
[2016-12-16] MEDS: LORazepam 1 MG TAB PO PRN ×3 (08:52→20:19)
[2016-12-16 09:46] LABS: PLATELET ESTIMATE SMEAR LOW (NORMAL); PLATELET MORPHOLOGY NORMAL (NORMAL); SCAN/DIFF AUTO DIFF CONFIRMED
--- NOTE | 2016-12-16 11:47 | HHI.PR ---
Subjective Remarks Remains in Delerm tremens, but this is stabilized on treatments. Potassium remains low. BP remain elevated (from DTs), treatment in place. Objective Vital Signs Date Time Temp Pulse Resp B/P Pulse Ox O2 Delivery O2 Flow Rate FiO2 12/16/16 10:50 96 21 12/16/16 09:37 75 12/16/16 08:50 95 Room Air 12/16/16 08:00 97.8 80 20 168/98 95 12/16/16 04:00 97.6 87 20 159/75 95 12/16/16 04:00 Room Air 12/16/16 00:00 Room Air 12/16/16 00:00 98.6 76 20 162/96 95 12/15/16 21:41 95 12/15/16 21:30 160/100 12/15/16 20:41 97.4 82 22 169/106 97 12/15/16 20:00 Room Air 12/15/16 20:00 82 12/15/16 16:00 97.3 88 18 192/110 95 170/110 163/102 12/15/16 12:00 98.4 95 18 96 I/O 12/15/16 12/15/16 12/15/16 12/16/16 12/16/16 12/16/16 07:00 15:00 23:00 07:00 15:00 23:00 Intake Total 0 ml 600 ml 320 ml 484 ml Output Total 1050 ml 350 ml Balance -1050 ml 600 ml 320 ml 134 ml Intake Oral 0 ml 600 ml 320 ml IV Total 484 ml Output Urine Total 1050 ml 350 ml # Voids 1 8 3 # Bowel Movements 0 1 Result Diagram: 12/16/16 0614 12/16/16 0614 Objective Remarks GENERAL: NAD, A&Ox3 SKIN: Warm and dry. HEAD: Normocephalic. EYES: No scleral icterus. No injection or drainage. NECK: Supple, trachea midline. No JVD or lymphadenopathy. CARDIOVASCULAR: Regular rate and rhythm without murmurs, gallops, or rubs. RESPIRATORY: Breath sounds equal bilaterally. No accessory muscle use. GASTROINTESTINAL: Abdomen soft, non-tender, nondistended. MUSCULOSKELETAL: No cyanosis, or edema. BACK: Nontender without obvious deformity. No CVA tenderness. A/P Problem List: (1) Alcohol withdrawal ICD Code: F10.239 (2) Hypokalemia ICD Code: E87.6 Assessment and Plan Delirium Tremens Continue CIWA Continue Librium Follow for improvements Thiamine Folic Acid Hypokalemia Replace and Monitor Syncope Related to alcohol No recurrence Chest Pain Related to alcohol Negative enzymes Pain Resolved Problem Qualifiers (1) Alcohol withdrawal: Qualified Code: F10.230 - Alcohol withdrawal, uncomplicated Jai Valle MD December 16, 2016 11:47
[2016-12-16] MEDS: ENALAPRILAT 1.25 MG/ML VIAL IV PUSH PRN (12:10)
[2016-12-17] VITALS (7 sets, daily range): BP systolic 150–187; BP diastolic 79–114; PULSE 60–84; RESP 18–20; TEMP 97.2–98.1; O2SAT 94–97
[2016-12-17] MEDS: oxyCODONE/ACETAMINOPHEN 10 MG/325 MG TAB PO PRN ×4 (00:01→20:02)
[2016-12-17] MEDS: chlordiazePOXIDE 25 MG CAP PO SCH ×2 (05:09)
[2016-12-17] MEDS: THIAMINE INJ 100 MG in SODIUM CHLORIDE 0.9% INJ 100 ML IV SCH (05:10)
[2016-12-17] MEDS: LORazepam 1 MG TAB PO PRN ×4 (05:10→20:01)
[2016-12-17] MEDS: MULTIVITAMIN INJ 10 ML, FOLIC ACID INJ 1 MG in SODIUM CHLORID 0.9% 500 ML INJ 500 ML IV SCH (05:10)
[2016-12-17 08:02] LABS: BICARBONATE 27.5 MEQ/L (21.0-32.0); POTASSIUM 3.7 MEQ/L (3.5-5.1)
[2016-12-17] MEDS: SODIUM CHLORIDE 0.9% FLUSH 10 ML FLUSH IV FLUSH SCH ×2 (09:00→20:03)
--- NOTE | 2016-12-17 09:14 | HHI.PR ---
Subjective Remarks Improved DTs. Lethargic secondary to treatment. No fevers. No chest pain. No dizziness or vertigo. Objective Vital Signs Date Time Temp Pulse Resp B/P Pulse Ox O2 Delivery O2 Flow Rate FiO2 12/17/16 04:00 97.6 69 20 150/ 94 150/79 12/17/16 00:00 Room Air 12/17/16 00:00 97.2 69 20 150/95 97 12/16/16 23:29 21 12/16/16 20:00 77 12/16/16 20:00 Room Air 12/16/16 20:00 98.7 73 20 163/114 96 159/98 12/16/16 18:00 177/105 12/16/16 16:00 97.6 73 20 201/97 95 12/16/16 12:00 97.6 79 20 160/105 97 12/16/16 10:50 96 21 12/16/16 09:37 75 I/O 12/16/16 12/16/16 12/16/16 12/17/16 12/17/16 12/17/16 07:00 15:00 23:00 07:00 15:00 23:00 Intake Total 320 ml 484 ml 240 ml 840 ml Output Total 350 ml Balance 320 ml 134 ml 240 ml 840 ml Intake Oral 320 ml 0 ml 240 ml 240 ml IV Total 484 ml 600 ml Output Urine Total 350 ml # Voids 3 4 2 2 # Bowel Movements 0 Result Diagram: 12/16/16 0614 12/17/16 0645 Objective Remarks GENERAL: NAD, A&Ox3 SKIN: Warm and dry. HEAD: Normocephalic. EYES: No scleral icterus. No injection or drainage. NECK: Supple, trachea midline. No JVD or lymphadenopathy. CARDIOVASCULAR: Regular rate and rhythm without murmurs, gallops, or rubs. RESPIRATORY: Breath sounds equal bilaterally. No accessory muscle use. GASTROINTESTINAL: Abdomen soft, non-tender, nondistended. MUSCULOSKELETAL: No cyanosis, or edema. BACK: Nontender without obvious deformity. No CVA tenderness. A/P Problem List: (1) Alcohol withdrawal ICD Code: F10.239 (2) Hypokalemia ICD Code: E87.6 Assessment and Plan Delirium Tremens Continue CIWA Start to wean Librium today, decrease to 5mg TID Follow for tremors Thiamine Folic Acid Hypokalemia Normalized now Replace and Monitor Syncope Related to alcohol No recurrence Chest Pain Related to alcohol Negative enzymes Pain Resolved Problem Qualifiers (1) Alcohol withdrawal: Qualified Code: F10.230 - Alcohol withdrawal, uncomplicated Jai Valle MD December 17, 2016 09:14
[2016-12-17] MEDS: ASPIRIN 81 MG CHEW TAB CHEW SCH (09:59)
[2016-12-17] MEDS: cloNIDine HCL 0.1 MG TAB PO PRN (12:47)
[2016-12-17] MEDS: MAGNESIUM HYDROXIDE SUSP 30 ML CUP PO PRN (20:02)
[2016-12-17] MEDS: ENALAPRILAT 1.25 MG/ML VIAL IV PUSH PRN (21:45)
[2016-12-18] VITALS (8 sets, daily range): BP systolic 160–218; BP diastolic 78–125; PULSE 62–75; RESP 16–20; TEMP 97.3–98.5; O2SAT 95–97
[2016-12-18] MEDS: LORazepam 2 MG/ML VIAL IV PUSH PRN ×2 (00:09→04:06)
[2016-12-18] MEDS: oxyCODONE/ACETAMINOPHEN 10 MG/325 MG TAB PO PRN ×6 (00:09→20:31)
[2016-12-18] MEDS: MULTIVITAMIN INJ 10 ML, FOLIC ACID INJ 1 MG in SODIUM CHLORID 0.9% 500 ML INJ 500 ML IV SCH (04:06)
[2016-12-18] MEDS: ASPIRIN 81 MG CHEW TAB CHEW SCH (08:04)
[2016-12-18] MEDS: THIAMINE HCL 100 MG TAB PO SCH (08:04)
[2016-12-18] MEDS: ENALAPRILAT 1.25 MG/ML VIAL IV PUSH PRN (08:05)
[2016-12-18] MEDS: LORazepam 1 MG TAB PO PRN ×4 (08:05→20:31)
[2016-12-18] MEDS: MAGNESIUM HYDROXIDE SUSP 30 ML CUP PO PRN (08:26)
[2016-12-18] MEDS: SODIUM CHLORIDE 0.9% FLUSH 10 ML FLUSH IV FLUSH SCH ×2 (08:50→20:32)
[2016-12-18] MEDS ORDERED: METOPROLOL TARTRATE 25 MG TAB PO SCH (09:00)
[2016-12-18] MEDS: LISINOPRIL 20 MG TAB PO SCH (12:44)
--- NOTE | 2016-12-18 13:29 | HHI.PR ---
Subjective Remarks Observable DT symptoms are improving. He has a complaint of chest pain today, which was also present at admit. Pain is worsened with eating, so it may represent a gastritis or esophagitis. No other new complaints. Blood pressures are not controlled. Objective Vital Signs Date Time Temp Pulse Resp B/P Pulse Ox O2 Delivery O2 Flow Rate FiO2 12/18/16 12:00 97.3 75 20 190/123 96 210/125 12/18/16 10:31 18 12/18/16 08:12 95 Room Air 12/18/16 08:00 97.3 71 20 187/122 96 12/18/16 04:00 Room Air 12/18/16 04:00 97.3 68 20 190/78 95 12/18/16 00:00 98.3 62 20 182/106 97 12/18/16 00:00 Room Air 12/17/16 20:00 Room Air 12/17/16 20:00 81 12/17/16 20:00 97.5 84 18 180/95 96 12/17/16 16:00 98.1 81 20 176/114 96 I/O 12/17/16 12/17/16 12/17/16 12/18/16 12/18/16 12/18/16 06:59 14:59 22:59 06:59 14:59 22:59 Intake Total 840 ml 240 ml 840 ml 980 ml Output Total 175 ml Balance 840 ml 65 ml 840 ml 980 ml Intake Oral 240 ml 240 ml 840 ml 480 ml IV Total 600 ml 500 ml Output Urine Total 175 ml # Voids 2 2 6 4 # Bowel Movements 0 0 1 Result Diagram: 12/16/16 0614 12/17/16 0645 Objective Remarks GENERAL: NAD, A&Ox3 SKIN: Warm and dry. HEAD: Normocephalic. EYES: No scleral icterus. No injection or drainage. NECK: Supple, trachea midline. No JVD or lymphadenopathy. CARDIOVASCULAR: Regular rate and rhythm without murmurs, gallops, or rubs. RESPIRATORY: Breath sounds equal bilaterally. No accessory muscle use. GASTROINTESTINAL: Abdomen soft, non-tender, nondistended. MUSCULOSKELETAL: No cyanosis, or edema. BACK: Nontender without obvious deformity. No CVA tenderness. A/P Problem List: (1) Alcohol withdrawal ICD Code: F10.239 (2) Hypokalemia ICD Code: E87.6 Assessment and Plan Delirium Tremens Wean librium off Continue CIWA Follow for tremors Thiamine Folic Acid HTN Urgency PRN IV Enalapril PRN Clonidine Scheduled Lisinopril Scheduled Metoprolol Adjust further as needed to gain control Hypokalemia Normalized Replace if needed and Monitor Syncope Related to alcohol No recurrence Chest Pain Related to alcohol Negative enzymes Pain Returned Repeat cardiac enzymes Evaluate lipase Start Carafate Problem Qualifiers (1) Alcohol withdrawal: Qualified Code: F10.230 - Alcohol withdrawal, uncomplicated Jai Valle MD December 18, 2016 13:29
[2016-12-18] MEDS: SUCRALFATE 1 GM/10 ML CUP PO SCH ×2 (16:25→20:30)
[2016-12-18] MEDS: METOPROLOL TARTRATE 50 MG TAB PO SCH (20:31)
[2016-12-18] MEDS: cloNIDine HCL 0.1 MG TAB PO PRN (23:54)
[2016-12-19] VITALS (8 sets, daily range): BP systolic 142–184; BP diastolic 100–112; PULSE 59–89; RESP 16–20; TEMP 97.4–98.4; O2SAT 94–96
[2016-12-19] MEDS: LORazepam 1 MG TAB PO PRN ×3 (00:50→09:10)
[2016-12-19] MEDS: oxyCODONE/ACETAMINOPHEN 10 MG/325 MG TAB PO PRN ×5 (00:51→20:08)
[2016-12-19] MEDS: SUCRALFATE 1 GM/10 ML CUP PO SCH ×4 (04:57→20:08)
[2016-12-19] MEDS: MULTIVITAMIN INJ 10 ML, FOLIC ACID INJ 1 MG in SODIUM CHLORID 0.9% 500 ML INJ 500 ML IV SCH (04:57)
[2016-12-19] MEDS: MAGNESIUM HYDROXIDE SUSP 30 ML CUP PO PRN (05:07)
[2016-12-19] MEDS: ENALAPRILAT 1.25 MG/ML VIAL IV PUSH PRN (05:08)
[2016-12-19] MEDS: ASCORBIC ACID 500 MG TAB PO SCH (08:35)
[2016-12-19] MEDS: THIAMINE HCL 100 MG TAB PO SCH (08:35)
[2016-12-19] MEDS: ASPIRIN 81 MG CHEW TAB CHEW SCH (08:35)
[2016-12-19] MEDS: LISINOPRIL 20 MG TAB PO SCH (08:35)
[2016-12-19] MEDS: METOPROLOL TARTRATE 50 MG TAB PO SCH ×2 (08:36→20:08)
[2016-12-19] MEDS: SODIUM CHLORIDE 0.9% FLUSH 10 ML FLUSH IV FLUSH SCH ×2 (08:36→20:43)
[2016-12-19] MEDS: cloNIDine HCL 0.1 MG TAB PO PRN (12:30)
--- NOTE | 2016-12-19 15:35 | HHI.PR ---
Subjective Remarks Follow up for alcohol withdrawal symptoms. Patient reports some anxiety but no fever, chills, chest pain, shortness of breath. Tremors are much improved. Objective Vitals Vital Signs Date Time Temp Pulse Resp B/P Pulse Ox O2 Delivery O2 Flow Rate FiO2 12/19/16 12:00 98.0 59 18 166/100 94 12/19/16 08:46 Room Air 12/19/16 08:46 64 12/19/16 08:00 97.9 64 20 184/102 95 Manual Cuff/Auscultation Automatic Cuff 12/19/16 07:23 170/110 12/19/16 05:56 18 12/19/16 05:00 97.4 66 16 160/112 95 12/19/16 02:48 66 12/19/16 00:45 97.5 78 18 142/100 94 12/18/16 23:34 160/120 12/18/16 20:30 93 Room Air 12/18/16 20:00 98.5 75 16 218/123 97 12/18/16 17:46 67 12/18/16 16:00 97.8 64 20 161/106 96 I/O 12/18/16 12/18/16 12/18/16 12/19/16 12/19/16 12/19/16 07:00 15:00 23:00 07:00 15:00 23:00 Intake Total 980 ml 855 ml Output Total 400 ml Balance 980 ml 455 ml Intake Oral 480 ml 480 ml IV Total 500 ml 375 ml Output Urine Total 400 ml # Voids 4 5 1 # Bowel Movements 1 0 0 Result Diagram: 12/16/16 0614 12/17/16 0645 Imaging Last Impressions Head CT 12/14/162342 Signed Impressions: Service Date/Time: Thursday, December 15, 2016 02:59 - CONCLUSION: No acute intracranial disease. Kevin Polanco MD Chest X-Ray 12/14/16 8129 Signed Impressions: Service Date/Time: Thursday, December 15, 2016 00:29 - CONCLUSION: No acute disease. Kevin Polanco MD Objective Remarks GENERAL: Alert, Oriented x 3, NAD. SKIN: Warm and dry. HEAD: Normocephalic. EYES: No scleral icterus. No injection or drainage. NECK: Supple, trachea midline. No JVD or lymphadenopathy. CARDIOVASCULAR: Regular rate and rhythm without murmurs, gallops, or rubs. RESPIRATORY: Breath sounds equal bilaterally. No accessory muscle use. GASTROINTESTINAL: Abdomen soft, non-tender, nondistended. MUSCULOSKELETAL: No cyanosis, or edema. BACK: Nontender without obvious deformity. No CVA tenderness. Procedures None. A/P Problem List: (1) Syncope ICD Code: R55 Status: Acute (2) Alcohol abuse ICD Code: F10.10 Status: Chronic (3) Alcohol withdrawal ICD Code: F10.239 Status: Acute (4) Hypokalemia ICD Code: E87.6 Status: Acute (5) HTN (hypertension) ICD Code: I10 Status: Chronic Assessment and Plan Delirium Tremens Wean librium off Continue CIWA Follow for tremors Thiamine Folic Acid HTN Urgency PRN IV Enalapril PRN Clonidine Scheduled Lisinopril Scheduled Metoprolol Adjust further as needed to gain control Hypokalemia Normalized Replace if needed and Monitor Syncope Related to alcohol No recurrence Chest Pain Related to alcohol Negative enzymes Pain Returned Repeat cardiac enzymes Evaluate lipase Continue Carafate Full code. SCDs. Problem Qualifiers (1) Syncope: Qualified Code: R55 - Syncope, unspecified syncope type (2) Alcohol withdrawal: Qualified Code: F10.230 - Alcohol withdrawal, uncomplicated Mary Calixto DO December 19, 2016 15:35
[2016-12-19] MEDS ORDERED: LORazepam 1 MG TAB PO ONE (15:45)
--- NOTE | 2016-12-19 15:50 | EKG ---
Date Performed: 12/18/2016 Time Performed: 20:22:47 PTAGE: 61 years EKG: Sinus rhythm NONSPECIFIC ST & T-WAVE ABNORMALITY Compared to prior tracing no significant change BORDERLINE ECG PREVIOUS TRACING : 12/14/2016 23.16 DOCTOR: Re Veloz Interpretating Date/Time 12/19/2016 15:46:35
[2016-12-19] MEDS: clonazePAM 1 MG TAB PO PRN (22:35)
[2016-12-20] VITALS (8 sets, daily range): BP systolic 160–194; BP diastolic 110–134; PULSE 55–97; RESP 16–18; TEMP 97.1–98.6; O2SAT 92–96
[2016-12-20] MEDS: oxyCODONE/ACETAMINOPHEN 10 MG/325 MG TAB PO PRN ×6 (00:12→23:14)
[2016-12-20] MEDS: cloNIDine HCL 0.1 MG TAB PO PRN (00:14)
[2016-12-20] MEDS: ENALAPRILAT 1.25 MG/ML VIAL IV PUSH PRN ×2 (04:55→12:03)
[2016-12-20] MEDS: SUCRALFATE 1 GM/10 ML CUP PO SCH ×4 (06:16→21:00)
[2016-12-20] MEDS ORDERED: amLODIPine BESYLATE 5 MG TAB PO SCH (09:00)
[2016-12-20] MEDS: LISINOPRIL 20 MG TAB PO SCH (10:00)
[2016-12-20] MEDS: ASCORBIC ACID 500 MG TAB PO SCH (10:00)
[2016-12-20] MEDS: THIAMINE HCL 100 MG TAB PO SCH (10:00)
[2016-12-20] MEDS: ASPIRIN 81 MG CHEW TAB CHEW SCH (10:00)
[2016-12-20] MEDS: METOPROLOL TARTRATE 50 MG TAB PO SCH ×2 (10:00→20:59)
[2016-12-20] MEDS: SODIUM CHLORIDE 0.9% FLUSH 10 ML FLUSH IV FLUSH SCH ×2 (10:01→21:00)
[2016-12-20] MEDS: clonazePAM 1 MG TAB PO PRN (10:06)
[2016-12-20] MEDS: LORazepam 1 MG TAB PO PRN (18:19)
[2016-12-20] MEDS: MORPHINE SULFATE 4 MG/ML INJ IV PUSH PRN (20:59)
--- NOTE | 2016-12-20 23:05 | HHI.PR ---
Subjective Remarks Follow up for accelerated hypertension, syncope. Patient is doing well. However , he complains of being anxious and his BP is in the 190s systolic. No chest pain, shortness of breath, fever or chills. Objective Vitals Vital Signs Date Time Temp Pulse Resp B/P Pulse Ox O2 Delivery O2 Flow Rate FiO2 12/20/16 19:40 98.6 78 18 167/113 95 12/20/16 16:00 98.1 97 18 186/134 95 12/20/16 12:00 97.9 55 16 190/120 96 12/20/16 08:00 70 12/20/16 08:00 Room Air 12/20/16 08:00 97.1 69 17 194/112 94 12/20/16 06:06 16 12/20/16 04:00 98.0 69 18 166/112 95 12/20/16 03:58 67 12/20/16 00:00 97.6 78 18 160/110 95 I/O 12/19/16 12/19/16 12/19/16 12/20/16 12/20/16 12/20/16 07:00 15:00 23:00 07:00 15:00 23:00 Intake Total 240 ml 240 ml 0 ml 720 ml 1200 ml Output Total 9 ml Balance 240 ml 240 ml 0 ml 720 ml 1191 ml Intake Oral 240 ml 240 ml 0 ml 720 ml 1200 ml Output Urine Total 9 ml # Voids 1 5 0 2 5 # Bowel Movements 0 1 0 0 0 0 Result Diagram: 12/16/16 0614 12/17/16 0645 Imaging Last Impressions Head CT 12/14/16 1216 Signed Impressions: Service Date/Time: Thursday, December 15, 2016 02:59 - CONCLUSION: No acute intracranial disease. Kevin Polanco MD Chest X-Ray 12/14/16 3301 Signed Impressions: Service Date/Time: Thursday, December 15, 2016 00:29 - CONCLUSION: No acute disease. Kevin Polanco MD Objective Remarks GENERAL: Alert, Oriented x 3, NAD. SKIN: Warm and dry. HEAD: Normocephalic. EYES: No scleral icterus. No injection or drainage. NECK: Supple, trachea midline. No JVD or lymphadenopathy. CARDIOVASCULAR: Regular rate and rhythm without murmurs, gallops, or rubs. RESPIRATORY: Breath sounds equal bilaterally. No accessory muscle use. GASTROINTESTINAL: Abdomen soft, non-tender, nondistended. MUSCULOSKELETAL: No cyanosis, or edema. BACK: Nontender without obvious deformity. No CVA tenderness. Procedures None. A/P Problem List: (1) Syncope ICD Code: R55 Status: Acute (2) Alcohol abuse ICD Code: F10.10 Status: Chronic (3) Alcohol withdrawal ICD Code: F10.239 Status: Acute (4) Hypokalemia ICD Code: E87.6 Status: Acute (5) HTN (hypertension) ICD Code: I10 Status: Chronic Assessment and Plan This is a 61-year-old male with PMH of HTN, COPD, A. fib, Alcohol Abuse and Alcohol Withdrawal Seizure who was brought the ER by EMS after a syncopal event. Admit to daily drinking. Urine Drug Screen positive for Benzo-received in ER. Alcohol 218. CT Head with no acute findings. CXR negative. - Syncope - No further events. Possibly related to alcohol abuse. - Continue telemetry. - Chest pain - ACS ruled out by 3 sets of negative troponins. - Accelerated hypertension - Possibly related to alcohol abuse. - Increase Amlodipine 5 to 10mg Qday. - Lisinopril 40mg Qday - Clonidine 0.1mg Q6hrs PRN - May consider hydralazine 25mg Q8hrs scheduled or PRN based on tomorrow's BP. - Anxiety - D/C Clonazepam and start Lorazepam 1mg Q6hrs PRN - Chronic pain - Morphine 4mg IV Q4hrs PRN and Percocet 10/325 Q4hrs PRN - Will start weaning off IV pain meds on 12/21/2016. Full code. SCDs. Discharge plan: If blood pressure is improved, we will discharge patient home on 12/21/2016. Problem Qualifiers (1) Syncope: Qualified Code: R55 - Syncope, unspecified syncope type (2) Alcohol withdrawal: Qualified Code: F10.230 - Alcohol withdrawal, uncomplicated Mary Calixto DO December 20, 2016 23:05
[2016-12-21] VITALS (10 sets, daily range): BP systolic 134–170; BP diastolic 80–106; PULSE 59–68; RESP 16–20; TEMP 97.7–98.5; O2SAT 93–98
[2016-12-21] MEDS: cloNIDine HCL 0.1 MG TAB PO PRN ×2 (00:26→13:06)
[2016-12-21] MEDS: LORazepam 1 MG TAB PO PRN ×4 (00:26→19:32)
[2016-12-21] MEDS: MORPHINE SULFATE 4 MG/ML INJ IV PUSH PRN ×4 (01:55→20:06)
[2016-12-21] MEDS: oxyCODONE/ACETAMINOPHEN 10 MG/325 MG TAB PO PRN ×3 (04:18→21:47)
[2016-12-21] MEDS: SUCRALFATE 1 GM/10 ML CUP PO SCH ×4 (07:00→19:32)
[2016-12-21] MEDS: LISINOPRIL 20 MG TAB PO SCH (08:24)
[2016-12-21] MEDS: ASCORBIC ACID 500 MG TAB PO SCH (08:24)
[2016-12-21] MEDS: THIAMINE HCL 100 MG TAB PO SCH (08:24)
[2016-12-21] MEDS: METOPROLOL TARTRATE 50 MG TAB PO SCH ×2 (08:24→19:32)
[2016-12-21] MEDS: ASPIRIN 81 MG CHEW TAB CHEW SCH (08:24)
[2016-12-21] MEDS: SODIUM CHLORIDE 0.9% FLUSH 10 ML FLUSH IV FLUSH SCH ×2 (09:00→19:32)
--- NOTE | 2016-12-21 13:00 | HHI.PR ---
Subjective Remarks Follow up for accelerated hypertension, syncope. Patient is doing well. His BP is better controlled. He says he does not have any place to go today. However, he will be able to go in the morning. Patient is known to me from a previous admission. In the previous admission (Observation unit), patient kept delaying discharge with the same argument that he does not have a place to go to but next day he will. Objective Vitals Vital Signs Date Time Temp Pulse Resp B/P Pulse Ox O2 Delivery O2 Flow Rate FiO2 12/21/16 12:00 97.7 62 20 166/106 95 12/21/16 08:00 Room Air 12/21/16 08:00 98.5 65 20 170/100 98 12/21/16 05:26 18 12/21/16 04:07 98.0 68 18 163/100 93 12/21/16 03:35 65 12/21/16 02:00 152/98 12/20/16 23:50 97.3 68 18 166/114 92 12/20/16 21:00 Room Air 12/20/16 19:40 98.6 78 18 167/113 95 12/20/16 16:00 98.1 97 18 186/134 95 I/O 12/20/16 12/20/16 12/20/16 12/21/16 12/21/16 12/21/16 07:00 15:00 23:00 07:00 15:00 23:00 Intake Total 0 ml 720 ml 1200 ml 480 ml Output Total 9 ml Balance 0 ml 720 ml 1191 ml 480 ml Intake Oral 0 ml 720 ml 1200 ml 480 ml Output Urine Total 9 ml # Voids 2 5 4 # Bowel Movements 0 0 0 0 Result Diagram: 12/17/16 0645 Imaging Last Impressions Head CT 12/14/162342 Signed Impressions: Service Date/Time: Thursday, December 15, 2016 02:59 - CONCLUSION: No acute intracranial disease. Kevin Polanco MD Chest X-Ray 12/14/16 1268 Signed Impressions: Service Date/Time: Thursday, December 15, 2016 00:29 - CONCLUSION: No acute disease. Kevin Polanco MD Objective Remarks GENERAL: Alert, Oriented x 3, NAD. SKIN: Warm and dry. HEAD: Normocephalic. EYES: No scleral icterus. No injection or drainage. NECK: Supple, trachea midline. No JVD or lymphadenopathy. CARDIOVASCULAR: Regular rate and rhythm without murmurs, gallops, or rubs. RESPIRATORY: Breath sounds equal bilaterally. No accessory muscle use. GASTROINTESTINAL: Abdomen soft, non-tender, nondistended. MUSCULOSKELETAL: No cyanosis, or edema. BACK: Nontender without obvious deformity. No CVA tenderness. Procedures None. A/P Problem List: (1) Syncope ICD Code: R55 Status: Acute (2) Alcohol abuse ICD Code: F10.10 Status: Chronic (3) Alcohol withdrawal ICD Code: F10.239 Status: Acute (4) Hypokalemia ICD Code: E87.6 Status: Acute (5) HTN (hypertension) ICD Code: I10 Status: Chronic Assessment and Plan This is a 61-year-old male with PMH of HTN, COPD, A. fib, Alcohol Abuse and Alcohol Withdrawal Seizure who was brought the ER by EMS after a syncopal event. Admit to daily drinking. Urine Drug Screen positive for Benzo-received in ER. Alcohol 218. CT Head with no acute findings. CXR negative. - Syncope - No further events. Possibly related to alcohol abuse. - D/C telemetry. - Chest pain - ACS ruled out by 3 sets of negative troponins. - Accelerated hypertension - Possibly related to alcohol abuse. - Increase Amlodipine 5 to 10mg Qday. - Lisinopril 40mg Qday - Clonidine 0.1mg Q6hrs PRN - May consider hydralazine 25mg Q8hrs scheduled or PRN based on tomorrow's BP. - Anxiety - D/C Clonazepam and Continue Lorazepam 1mg Q6hrs PRN - Chronic pain - Morphine 4mg IV Q4hrs PRN and Percocet 10/325 Q4hrs PRN - Start decreasing morphine IV. Decrease morphine frequency to Q6hrs. Full code. SCDs. Problem Qualifiers (1) Syncope: Qualified Code: R55 - Syncope, unspecified syncope type (2) Alcohol withdrawal: Qualified Code: F10.230 - Alcohol withdrawal, uncomplicated Mary Calixto DO December 21, 2016 13:00
[2016-12-22] MEDS: LORazepam 1 MG TAB PO PRN ×2 (00:46→06:51)
[2016-12-22] MEDS: oxyCODONE/ACETAMINOPHEN 10 MG/325 MG TAB PO PRN ×2 (01:19→05:52)
[2016-12-22] MEDS: MORPHINE SULFATE 4 MG/ML INJ IV PUSH PRN (02:31)
[2016-12-22 03:45] VITALS: BP 136/89; PULSE 58; RESP 16; TEMP 98.6; O2SAT 95
[2016-12-22] MEDS: SUCRALFATE 1 GM/10 ML CUP PO SCH (06:51)
[2016-12-22 08:00] VITALS: BP 118/82; PULSE 67; RESP 18; TEMP 96.5; O2SAT 93
[2016-12-22 08:11] VITALS: PULSE 64
[2016-12-22] MEDS: LISINOPRIL 20 MG TAB PO SCH (09:06)
[2016-12-22] MEDS: METOPROLOL TARTRATE 50 MG TAB PO SCH (09:06)
[2016-12-22] MEDS: ASPIRIN 81 MG CHEW TAB CHEW SCH (09:06)
[2016-12-22] MEDS: THIAMINE HCL 100 MG TAB PO SCH (09:06)
[2016-12-22] MEDS: ASCORBIC ACID 500 MG TAB PO SCH (09:06)
[2016-12-22] MEDS: SODIUM CHLORIDE 0.9% FLUSH 10 ML FLUSH IV FLUSH SCH (09:07)
[2016-12-22] MEDS ORDERED: LISI-515 PO (11:49)
[2016-12-22] MEDS ORDERED: METO-309 PO (11:49)
[2016-12-22] MEDS ORDERED: AMLO10 PO (11:49)
[2016-12-22] MEDS ORDERED: ONDA4TAB7 SL (11:51)
--- NOTE | 2016-12-22 11:51 | HHI.DCPOC ---
Discharge Care Plan Diagnosis: (1) Syncope (2) Alcohol withdrawal Goals to Promote Your Health * To prevent worsening of your condition and complications * To maintain your health at the optimal level Directions to Meet Your Goals Take your medications as prescribed Follow your dietary instruction Follow activity as directed Keep your appointments as scheduled Take your immunizations and boosters as scheduled If your symptoms worsen call your PCP, if no PCP go to Urgent Care Center or Emergency Room Smoking is Dangerous to Your Health. Avoid second hand smoke Call the 24-hour hour crisis hotline for domestic abuse at Sheila Sylvester MD December 22, 2016 11:51
--- NOTE | 2016-12-22 11:51 | HHI.DS ---
Discharge Summary Admission Date December 15, 2016 at 04:36 Discharge Date: December 22, 2016 Admitting Diagnosis syncope; chest pain; alcohol withdrawal (1) Syncope ICD Code: R55 Diagnosis: Principal (2) Alcohol abuse ICD Code: F10.10 Diagnosis: Secondary (3) Alcohol withdrawal ICD Code: F10.239 Diagnosis: Principal (4) Hypokalemia ICD Code: E87.6 Diagnosis: Principal (5) HTN (hypertension) ICD Code: I10 Diagnosis: Secondary (6) Malingerer ICD Code: Z76.5 Diagnosis: Principal Procedures None. Brief History - From Admission This is a 61-year-old male with PMH of HTN, COPD, A. fib, Alcohol Abuse and Alcohol Withdrawal Seizure who was brought the ER by EMS after a syncopal event. Patient has little recollection of events, states he was with a friend and had sudden syncopal episode at which time friend called 911. No history of similar symptoms in the past. Admit to daily drinking. When he came to, reported sharp substernal chest pain with radiation to left upper extremity, on arrival to ER noted to be tremulous. S/p Ativan. BP 195/131, HR 98, O2 sat 99 % on RA, Afebrile. CBC unremarkable except for platelets 125, previously 1:30 on 12/02/16. Chemistry unremarkable except for K+ 3.2 s/p replacement in ER. Trop negative. Urine Drug Screen positive for Benzo-received in ER. Alcohol 218. CT Head with no acute findings. CXR negative. Imaging Last Impressions Head CT 12/14/162342 Signed Impressions: Service Date/Time: Thursday, December 15, 2016 02:59 - CONCLUSION: No acute intracranial disease. Kevin Polanco MD Chest X-Ray 12/14/167 Signed Impressions: Service Date/Time: Thursday, December 15, 2016 00:29 - CONCLUSION: No acute disease. Kevin Polanco MD PE at Discharge GENERAL: Alert, Oriented x 3, NAD. SKIN: Warm and dry. HEAD: Normocephalic. EYES: No scleral icterus. No injection or drainage. NECK: Supple, trachea midline. No JVD or lymphadenopathy. CARDIOVASCULAR: Regular rate and rhythm without murmurs, gallops, or rubs. RESPIRATORY: Breath sounds equal bilaterally. No accessory muscle use. GASTROINTESTINAL: Abdomen soft, non-tender, nondistended. MUSCULOSKELETAL: No cyanosis, or edema. BACK: Nontender without obvious deformity. No CVA tenderness. NO TREMORS. Pt update on day of discharge f/u for from syncope due to alcohol intoxication which lead to alcohol withdrawal patient stated he had was vomiting. He stated he told the nurse and the nurse did not come. I asked to see if and he stated he flushed the toilet. I spoke to nurse in regards to this and she stated that he did not vomit and he did not call her about this. She stated that he was doing well and ate his breakfast. The nurse then came into the room to ask him about this and he stated it happened after she left. Otherwise no acute events. Remains afebrile. No diarrhea/constipation. Hospital Course This is a 61-year-old male with PMH of HTN, COPD, A. fib, Alcohol Abuse and Alcohol Withdrawal Seizure who was brought the ER by EMS after a syncopal event. Admit to daily drinking. Urine Drug Screen positive for Benzo-received in ER. Alcohol 218. CT Head with no acute findings. CXR negative. - Syncope -due to alcohol intoxication. supportive care given. - no events on telemetry. CT scan of head is negative and CXR negative. - Chest pain - ACS ruled out by 3 sets of negative troponins. No events on telemetry. - Accelerated hypertension - Possibly related to alcohol abuse. - started amlodipine started on 5 then increase to 10 mg. - Lisinopril 40mg Qday - Clonidine 0.1mg Q6hrs PRN - improved with treatment. - Anxiety - was given ativan PRN. need treatment as outpatient. This may be related more to alcoholism. - Chronic pain - Morphine 4mg IV Q4hrs PRN and Percocet 10/325 Q4hrs PRN given by hospital doctor. -Malingering -due to patient being homeless multiple excuses on why he could not leave hospital Patient clinically doing well, vitals stable and WNL. As per emesis none witness and he was taking good PO intake. Clinically benign exam, labs WNL and vitals stable. Patient most likely malingering camila with no other signs that suggest concerning abdomen. He was given Zofran PRN> Pt Condition on Discharge: Stable Discharge Disposition: Discharge Home Discharge Time: <= 30 minutes Discharge Instructions DIET: Follow Instructions for: Heart Healthy Diet Activities you can perform: Regular-No Restrictions Follow up Referrals: PCP Follow-up - 1 Week New Medications: Aspirin DR (Aspirin EC) 81 Mg Tabdr 81 MG PO DAILY atrial fibrillation #30 Ref 0 TAB Ondansetron Odt (Ondansetron Odt) 4 Mg Tab 4 MG SL Q12HR PRN Nausea/Vomiting #10 Ref 0 TAB Amlodipine (Norvasc) 10 Mg Tab 10 MG PO DAILY hypertension #30 Ref 0 TAB Lisinopril (Lisinopril) 20 Mg Tab 40 MG PO DAILY hypertension #30 Ref 0 TAB Metoprolol Tartrate (Lopressor) 50 Mg Tab 50 MG PO Q12HR hypertension #60 Ref 0 TAB Discontinued Medications: Chlordiazepoxide (Chlordiazepoxide) 25 Mg Cap 25 MG PO TID PRN SEVERE ANXIETY OR AGITATION #15 Ref 0 CAP Hydralazine (Hydralazine) 10 Mg Tab 10 MG PO TID Take with a meal Blood Pressure Management Ref 0 TAB Sheila Sylvester MD December 22, 2016 11:51
[2016-12-22] MEDS ORDERED: ASPI81TA11 PO (11:53)
== END 2016-12-22 13:55 | disposition home or self-care (01) | DRG 897 ==
LOC: NEPC 21:24 → NEDA 12-15 04:36 → N04B 12-15 05:23
PROVIDERS: ADMIT Family Medicine; ATTEND Family Medicine
DX: F10.239 Alcohol dependence with withdrawal, unspecified (principal); D69.6 Thrombocytopenia, unspecified; J44.9 Chronic obstructive pulmonary disease, unspecified; I16.0 Hypertensive urgency; I10 Essential (primary) hypertension; F10.229 Alcohol dependence with intoxication, unspecified; R55 Syncope and collapse; Y90.7 Blood alcohol level of 200-239 mg/100 ml; R07.9 Chest pain, unspecified; F41.9 Anxiety disorder, unspecified; G89.29 Other chronic pain; Z76.5 Malingerer [conscious simulation]; Z59.0 Homelessness; E87.6 Hypokalemia; Z91.14 Patient's other noncompliance with medication regimen; Z87.891 Personal history of nicotine dependence
CPT/HCPCS: 70450; 71010; 76937; 80048; 80053; 80307; 81001; 82550; 82552; 82948; 83690; 83735; 84132; 84484; 85025; 85610; 85730; 93005; 96361; 96374; J2060; J2270; J2405; J3411; J7030; J7040; Q0163

== ENCOUNTER 2016-12-30 22:08 | Observation (INO) | payer MEDICAID ==
[~2016-12-30] VITALS: Ht 172.7 cm; Wt 85.0 kg
[~2016-12-30 22:08] MED LIST changes: +AMLO10 PO; -AMLO5TAB2 PO; +ASPI81TA11 PO; -CARV6.252 PO; -CHLO25CA2 PO; +METO-309 PO; +ONDA4TAB7 SL
[2016-12-30 22:20] VITALS: BP 170/90; PULSE 102; RESP 16; TEMP 98.1; O2SAT 96
--- NOTE | 2016-12-30 22:57 | PD ---
HPI Chief Complaint: Chest Pain Time Seen by Provider: 22:50 Travel History International Travel<30 days: No Contact w/Intl Traveler<30days: No Traveled to known affect area: No History of Present Illness HPI 61-year-old male with history of alcohol abuse, hypertension, COPD, A. fib, cardiac issues, presents to the ER today because he states that he is having a left-sided chest pains, shortness of breath, currently rating the chest pains and 8 out of 10. He states that he has been feeling generally weak, felt like he was given a past out. He denies any fevers, vomiting, or any other symptoms. He states that the symptoms are similar to when he was admitted last week. Modifying Factors: None Associated Signs & Symptoms: Chest discomfort, general weakness, shortness of breath Risk Factors: Cardiac history PFSH Past Medical History Hx Anticoagulant Therapy: Yes (DVT-ASA) Arthritis: Yes (bursitis tendonitis) Asthma: No Atrial Fibrillation: Yes Autoimmune Disease: No Blood Disorders: No Anxiety: Yes Depression: Yes Heart Rhythm Problems: Yes (LBBB, afib RVR) Cancer: No Cardiovascular Problems: Yes (A FIB RVR, CHF, HTN left bundle branch) High Cholesterol: No Chest Pain: Yes Congestive Heart Failure: Yes COPD: Yes Cerebrovascular Accident: No Diabetes: No Diminished Hearing: No Endocrine: No Gastrointestinal Disorders: No Genitourinary: Yes (not urinating "a lot") Headaches: No Hypertension: Yes Immune Disorder: No Implanted Vascular Access Dvce: No Kidney Stones: Yes Musculoskeletal: Yes (many broken bones in the past) Neurologic: Yes (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) Psychiatric: No Reproductive: No Respiratory: Yes (COPD) Immunizations Current: Yes Migraines: No Seizures: Yes Shingles: Yes Sleep Apnea: No Ulcer: No Past Surgical History Abdominal Surgery: Yes (HERNIA REPAIR) Cardiac Surgery: No Ear Surgery: No Endocrine Surgery: No Eye Surgery: No Genitourinary Surgery: No Gynecologic Surgery: No Neurologic Surgery: No Oral Surgery: No Thoracic Surgery: No Tonsillectomy: Yes Other Surgery: Yes Family History Family Myocardial Infarction: Yes (maternal) Social History Alcohol Use: Yes (1-2 PINTS DAILY VODKA) Tobacco Use: No Substance Use: No Allergies-Medications (Allergen,Severity, Reaction): Coded Allergies: Keflex (Verified Allergy, Severe, hives, 12/31/16) Penicillin (Verified Allergy, Severe, hives, 12/31/16) Sulfa (Verified Allergy, Severe, hives, 12/31/16) Nitroglycerin (Verified Allergy, Mild, 12/31/16) vomit Reported Meds & Prescriptions Reported Meds & Active Scripts Active Aspirin EC (Aspirin) 81 Mg Tabdr 81 Mg PO DAILY Lopressor (Metoprolol Tartrate) 50 Mg Tab 50 Mg PO Q12HR Lisinopril 20 Mg Tab 40 Mg PO DAILY Norvasc (Amlodipine Besylate) 10 Mg Tab 10 Mg PO DAILY Review of Systems Except as stated in HPI: all other systems reviewed are Neg Physical Exam Narrative GENERAL: Well-developed elderly white female patient who currently has alcohol on breath. In moderate distress. Awake and oriented 3. SKIN: Focused skin assessment warm/dry. HEAD: Atraumatic. Normocephalic. EYES: Pupils equal and round. No scleral icterus. No injection or drainage. ENT: No nasal bleeding or discharge. Mucous membranes pink and moist. NECK: Trachea midline. No JVD. CARDIOVASCULAR: Regular rate and rhythm. No murmur appreciated. RESPIRATORY: No accessory muscle use. Clear to auscultation. Breath sounds equal bilaterally. GASTROINTESTINAL: Abdomen soft, non-tender, nondistended. Hepatic and splenic margins not palpable. MUSCULOSKELETAL: No obvious deformities. No clubbing. No cyanosis. No edema. NEUROLOGICAL: Awake and alert. No obvious cranial nerve deficits. Motor grossly within normal limits. Normal speech. PSYCHIATRIC: Appropriate mood and affect; insight and judgment normal. Data Data Last Documented VS Vital Signs Date Time Temp Pulse Resp B/P Pulse Ox O2 Delivery O2 Flow Rate FiO2 12/31/16 01:27 100 20 150/84 95 Room Air 12/30/16 22:20 98.1 Orders Electrocardiogram (12/30/16 22:50) B-Type Natriuretic Peptide (12/30/16 22:50) Ckmb (Isoenzyme) Profile (12/30/16 22:50) Complete Blood Count With Diff (12/30/16 22:50) Comprehensive Metabolic Panel (12/30/16 22:50) D-Dimer (12/30/16 22:50) Magnesium (Mg) (12/30/16 22:50) Prothrombin Time / Inr (Pt) (12/30/16 22:50) Act Partial Throm Time (Ptt) (12/30/16 22:50) Troponin I (12/30/16 22:50) Lipase (12/30/16 22:50) Chest, Single Ap (12/30/16 22:50) Ecg Monitoring (12/30/16 22:50) Bilateral Bp Monitoring (12/30/16 22:50) Iv Access Insert/Monitor (12/30/16 22:50) Oximetry (12/30/16 22:50) Oxygen Administration (12/30/16 22:50) Aspirin (Aspirin) (12/30/16 23:00) Sodium Chloride 0.9% Flush (Ns Flush) (12/30/16 23:00) Lorazepam Inj (Ativan Inj) (12/30/16 23:00) Lisinopril (Prinivil) (12/30/16 23:00) Alcohol (Ethanol) (12/30/16 22:50) CKMB (12/30/16 22:50) CKMB% (12/30/16 22:50) Ct Pulmonary Angiogram (12/31/16 00:03) Morphine Inj (Morphine Inj) (12/31/16 00:30) Iohexol 350 Inj (Omnipaque 350 Inj) (12/31/16 00:44) Admit Order (Ed Use Only) (12/31/16:27) Activity Bed Rest With Brp (12/31/16:27) Vital Signs (Adult) Q4H (12/31/16:27) Cardiac Rhythm .As Directed (12/31/16:) Notify Dr: Other .PRN (12/31/16:) Notify Dr. Parameters (12/31/16:27) Resp Oxygen Nasal Cannula (12/31/16 ) Diet Heart Healthy (12/31/16 Breakfast) Ckmb (Isoenzyme) Profile (12/31/16:) Ckmb (Isoenzyme) Profile (12/31/16 04:27) Troponin I (12/31/16:) Troponin I (12/31/16 04:27) Electrocardiogram (12/31/16:27) Electrocardiogram (12/31/16 04:27) ^ Obtain (12/31/16:27) Metoprolol Tartrate (Lopressor) (12/31/16 01:30) Aspirin (Aspirin) (12/31/16 09:00) Labs Laboratory Tests Test 12/30/16 22:50 White Blood Count 6.8 TH/MM3 Red Blood Count 4.33 MIL/MM3 Hemoglobin 14.5 GM/DL Hematocrit 42.0 % Mean Corpuscular Volume 96.8 FL Mean Corpuscular Hemoglobin 33.5 PG Mean Corpuscular Hemoglobin 34.6 % Concent Red Cell Distribution Width 15.4 % Platelet Count 252 TH/MM3 Mean Platelet Volume 7.2 FL Neutrophils (%) (Auto) 59.7 % Lymphocytes (%) (Auto) 26.4 % Monocytes (%) (Auto) 11.1 % Eosinophils (%) (Auto) 1.3 % Basophils (%) (Auto) 1.5 % Neutrophils # (Auto) 4.1 TH/MM3 Lymphocytes # (Auto) 1.8 TH/MM3 Monocytes # (Auto) 0.8 TH/MM3 Eosinophils # (Auto) 0.1 TH/MM3 Basophils # (Auto) 0.1 TH/MM3 CBC Comment DIFF FINAL Differential Comment Prothrombin Time 10.5 SEC Prothromb Time International 1.0 RATIO Ratio Activated Partial 27.3 SEC Thromboplast Time D-Dimer Quantitative (PE/DVT) 1.44 MG/L FEU Sodium Level 145 MEQ/L Potassium Level 3.7 MEQ/L Chloride Level 106 MEQ/L Carbon Dioxide Level 27.5 MEQ/L Anion Gap 12 MEQ/L Blood Urea Nitrogen 11 MG/DL Creatinine 0.76 MG/DL Estimat Glomerular Filtration 104 ML/MIN Rate Random Glucose 99 MG/DL Calcium Level 8.4 MG/DL Magnesium Level 2.0 MG/DL Total Bilirubin 0.3 MG/DL Aspartate Amino Transf 49 U/L (AST/SGOT) Alanine Aminotransferase 34 U/L (ALT/SGPT) Alkaline Phosphatase 78 U/L Total Creatine Kinase 280 U/L Creatine Kinase MB 1.2 NG/ML Troponin I 0.02 NG/ML Total Protein 6.8 GM/DL Albumin 3.4 GM/DL Lipase 301 U/L Ethyl Alcohol Level 347 MG/DL B-Type Natriuretic Peptide 9 PG/ML MDM Medical Decision Making Medical Screen Exam Complete: Yes Emergency Medical Condition: Yes Medical Record Reviewed: Yes Interpretation(s) EKG shows sinus tachycardia at a rate of 100 bpm with no signs of acute ST-T changes. Laboratory Tests Test 12/30/16 22:50 Red Blood Count 4.33 MIL/MM3 (4.50-5.90) Monocytes (%) (Auto) 11.1 % (0.0-8.0) D-Dimer Quantitative (PE/DVT) 1.44 MG/L FEU (0.00-0.50) Calcium Level 8.4 MG/DL (8.5-10.1) Aspartate Amino Transf 49 U/L (15-37) (AST/SGOT) Ethyl Alcohol Level 347 MG/DL (0-5) Differential Diagnosis Chest pains, general weakness, near syncope, shortness of breathCOPD exacerbation versus ACS versus dysrhythmias versus pneumonia Narrative Course Lab work did not indicate significant metabolic issues and cardiac enzymes and negative. EKG did not show any signs of significant dysrhythmias other than rate. Chest x-ray was unremarkable. His d-dimer was elevated and CTA was done to rule out PE. It is negative. Blood pressure was fairly elevated initially. He was given by mouth meds for blood pressure. In addition, aspirin, morphine , and Ativan was given for his anxiety and alcohol withdrawal considering history. On reevaluation at 1:30 AM, his blood pressures come down to 150/80. He reports improvement chest pains. At this point, my plan would be to admit him for further evaluation a chest pain and chest pain center. Diagnosis Primary Impression: Chest pain Additional Impression: HTN (hypertension) Admitting Information Admitting Physician Requests: Admit Noa Wolfe MD December 30, 2016 22:57
[2016-12-30] MEDS ORDERED: LISINOPRIL 20 MG TAB PO ONE (23:00)
[2016-12-30] MEDS ORDERED: LORazepam 2 MG/ML VIAL IV PUSH ONE (23:00)
[2016-12-30] MEDS ORDERED: SODIUM CHLORIDE 0.9% FLUSH 10 ML FLUSH IVF PRN (23:00)
[2016-12-30] MEDS ORDERED: ASPIRIN 325 MG TAB PO ONE (23:00)
[2016-12-30 23:30] LABS: AUTOMATED NEUTROPHIL # 4.1 TH/MM3 (1.8-7.7); BASOPHIL # 0.1 TH/MM3 (0-0.2); BASOPHIL % 1.5 % (0.0-2.0); EOSINOPHIL # 0.1 TH/MM3 (0-0.4); EOSINOPHIL % 1.3 % (0.0-4.0); HEMO FLAGS DIFF FINAL; LYMPH % 26.4 % (9.0-44.0); LYMPHOCYTE # 1.8 TH/MM3 (1.0-4.8); MEAN CELL VOLUME 96.8 FL (80.0-100.0); MEAN CORPUSCULAR HEMOGLOBIN 33.5 PG (27.0-34.0); MEAN CORPUSCULAR HGB CONC 34.6 % (32.0-36.0); MONO % 11.1 % (0.0-8.0); NEUT % 59.7 % (16.0-70.0); PLATELET COUNT 252 TH/MM3 (150-450); RED BLOOD COUNT 4.33 MIL/MM3 (4.50-5.90); RED CELL DISTRIBUTION WIDTH 15.4 % (11.6-17.2); WHITE BLOOD COUNT 6.8 TH/MM3 (4.0-11.0)
--- NOTE | 2016-12-30 23:39 | RADRPT ---
EXAM DATE/TIME: 12/30/2016 23:01 [facility] COMPARISON: CHEST SINGLE AP, December 15, 2016, 0:29. INDICATIONS : Chest pain. MEDICAL HISTORY : None. SURGICAL HISTORY : None. ENCOUNTER: Initial ACUITY: 2 days PAIN SCORE: 1/10 LOCATION: Bilateral chest FINDINGS: A single view of the chest demonstrates the lungs to be symmetrically aerated without evidence of mas s, infiltrate or effusion. The cardiomediastinal contours are unremarkable. Osseous structures are intact. CONCLUSION: 1. No acute findings. Obed Chadwick MD on December 30, 2016 at 23:36 Board Certified Radiologist. This report was verified electronically.
[2016-12-30 23:40] LABS: ANION GAP 12 MEQ/L (5-15); APTT (PATIENT) 27.3 SEC (24.3-30.1); AST (GOT) 49 U/L (15-37); BICARBONATE 27.5 MEQ/L (21.0-32.0); BLOOD UREA NITROGEN 11 MG/DL (7-18); CHLORIDE 106 MEQ/L (98-107); GLOMERULAR FILTRATION RATE 104 ML/MIN (>89); POTASSIUM 3.7 MEQ/L (3.5-5.1); PROTHROMBIN TIME - PATIENT 10.5 SEC (9.8-11.6); SODIUM (NA) 145 MEQ/L (136-145)
[2016-12-30 23:45] LABS: ALKALINE PHOSPHATASE 78 U/L (45-117); ALT (GPT) 34 U/L (12-78); CREATINE KINASE 280 U/L (39-308); TOTAL BILIRUBIN ADULT 0.3 MG/DL (0.2-1.0)
[2016-12-30 23:59] LABS: CKMB 1.2 NG/ML (0.5-3.6)
[2016-12-31] VITALS (7 sets, daily range): BP systolic 116–201; BP diastolic 62–114; PULSE 74–105; RESP 18–20; TEMP 98.2–98.4; O2SAT 95–98
[2016-12-31] MEDS ORDERED: MORPHINE SULFATE 4 MG/ML INJ IV PUSH ONE (00:30)
[2016-12-31] MEDS ORDERED: IOHEXOL 350 MG/ML 10 ML VIAL (for RAD DIAG) IV ONE (00:44)
--- NOTE | 2016-12-31 01:20 | RADRPT ---
EXAM DATE/TIME: 12/31/2016 00:40 [facility] COMPARISON: No previous studies available for comparison. INDICATIONS : Chest pain and general weakness. IV CONTRAST: 78 cc Omnipaque 350 (iohexol) IV RADIATION DOSE: 23.35 CTDIvol (mGy) MEDICAL HISTORY : Congestive hearrt failure. Hypertension. Chronic obstructive pulmonary disease.Renal calculi. Seizure . SURGICAL HISTORY : Hernia repair. ENCOUNTER: Initial ACUITY: 1 day PAIN SCALE: 8/10 LOCATION: chest TECHNIQUE: Volumetric scanning of the chest was performed using a pulmonary embolism protocol MIP images were re constructed. Using automated exposure control and adjustment of the mA and/or kV according to patien t size, radiation dose was kept as low as reasonably achievable to obtain optimal diagnostic quality images. FINDINGS: No filling defects in the pulmonary arteries to suggest embolus. Linear scarring or atelectasis in th e lingula. Otherwise no focal consolidation. No pleural or pericardial effusion. No adenopathy. Mild coronary calcifications. Multiple hepatic cysts noted in the upper abdomen similar to 2016 examination. CONCLUSION: 1. Negative for pulmonary embolus. Linear scarring or atelectasis in the lingula. Obed Chadwick MD on December 31, 2016 at 1:11 Board Certified Radiologist. This report was verified electronically.
[2016-12-31] MEDS ORDERED: ALPRAZolam 0.25 MG TAB PO PRN (01:30)
[2016-12-31] MEDS ORDERED: METOPROLOL TARTRATE 25 MG TAB PO SCH (01:30)
[2016-12-31 03:10] LABS: CREATINE KINASE 251 U/L (39-308)
[2016-12-31 05:51] LABS: CREATINE KINASE 235 U/L (39-308)
[2016-12-31 06:04] LABS: CKMB 1.1 NG/ML (0.5-3.6)
[2016-12-31] MEDS ORDERED: cloNIDine HCL 0.1 MG TAB PO PRN (08:00)
[2016-12-31] MEDS ORDERED: ACETAMINOPHEN 500 MG CPLT PO PRN (08:00)
[2016-12-31] MEDS ORDERED: ONDANSETRON HCL 4 MG/2 ML VIAL IV PRN (08:00)
[2016-12-31] MEDS ORDERED: KETOROLAC TROMETHAMINE 30 MG/ML (IVP) VIAL IV PUSH ONE (08:45)
[2016-12-31] MEDS ORDERED: ASPIRIN 325 MG TAB PO SCH (09:00)
[2016-12-31] MEDS ORDERED: LISINOPRIL 20 MG TAB PO SCH (09:00)
[2016-12-31] MEDS ORDERED: SODIUM CHLORIDE 0.9% FLUSH 10 ML FLUSH IV FLUSH SCH (09:00)
--- NOTE | 2016-12-31 11:10 | HHI.HP ---
HPI Primary Care Physician Jessica Flores MD Chief Complaint Chest pain History of Present Illness 61-year-old male with known hypertension and COPD presents to emergency room for further evaluation of chest pain. Onset yesterday afternoon. Location substernal. Characterized as pressure radiating to his right inferior mammary area. Right sided pain was described as sharp quick pain. Associated symptoms included nausea and felt as though he has could not catch his breath. No vomiting or diaphoresis. No known precipitating or relieving factors. Duration has been constant, waxing and waning in intensity. States he takes an herbal medication for his blood pressure and has ran out. Has prescription BP medications stating he never fills medication, as he prefers to take the herbal medication. Endorses drinking 12 pints vodka daily. Last evening he drank 2 pints of vodka. Review of Systems General: No fatigue,weakness, fever, chills, or recent illness. States his been in his general state of health. Endorses he is homeless. 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 HEENT: No DE LEON, no dysphasia CV: As stated above. No palpitations or dizziness. RESP: No SOB, cough, wheeze. History of COPD, denies any use of inhalers. GI: No nausea, vomiting, bowel changes, diarrhea, constipation, pain, distention , melena, blood in the stool. Endorses poor appetite. No unintentional weight gain or weight loss : No dysuria, urgency, frequency, EXT: No lower leg edema, no paraesthesias MS: No discomfort or change in ROM NEURO: No change in memory, dizziness, difficulty with balance, LOC, motor/ sensory deficits PSYCH: No anxiety, depression, suicidal ideation. Endorses alcohol dependence. SKIN: No rashes, no concerning lesions. Past Family Social History Allergies: Coded Allergies: Keflex (Verified Allergy, Severe, hives, 12/31/16) Penicillin (Verified Allergy, Severe, hives, 12/31/16) Sulfa (Verified Allergy, Severe, hives, 12/31/16) Nitroglycerin (Verified Allergy, Mild, 12/31/16) vomit Past Medical History COPD, A. fib, hypertension, congestive heart failure Past Surgical History Inguinal hernia repair, tonsillectomy Reported Medications Following medications patient states he is "supposed to take." Does not have medications or an active prescription refill. Aspirin EC (Aspirin) 81 Mg Tabdr 81 Mg PO DAILY Lopressor (Metoprolol Tartrate) 50 Mg Tab 50 Mg PO Q12HR Lisinopril 20 Mg Tab 40 Mg PO DAILY Norvasc (Amlodipine Besylate) 10 Mg Tab 10 Mg PO DAILY Active Ordered Medications Current Medications Medications (Trade) Dose Ordered Sig/Candy Route Start Time Stop Time Status Last Admin (Aspirin) 325 mg DAILY PO 12/31/16 09:00 12/31/16 08:26 (Xanax) 0.25 mg Q8H PRN PO 12/31/16 01:30 12/31/16 03:51 (NS Flush) 2 ml BID IV FLUSH 12/31/16 09:00 12/31/16 08:26 (Tylenol) 500 mg Q4H PRN PO 12/31/16 08:00 (Zofran Inj) 4 mg Q6H PRN IV 12/31/16 08:00 (Norvasc) 10 mg DAILY PO 12/31/16 09:00 12/31/16 08:25 (Prinivil) 40 mg DAILY PO 12/31/16 09:00 12/31/16 08:25 (Lopressor) 50 mg Q12HR PO 12/31/16 21:00 (Catapres) 0.1 mg Q6H PRN PO 12/31/16 08:00 Family History Noncontributory for early onset cardiovascular disease. Social History Known hypertension. No known diabetes or hyperlipidemia. 12 pints of vodka daily. Quit smoking "years ago." Prior to quitting smoked 1 pack daily. Denies any illegal drug use. 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 Past cardiac testing 11/10/16 Debbi scan negative for stress-induced ischemia. Ejection fraction 68%. Physical Exam Vital Signs Vital Signs Date Time Temp Pulse Resp B/P Pulse Ox O2 Delivery O2 Flow Rate FiO2 12/31/16 08:00 84 12/31/16 07:50 86 18 166/114 95 12/31/16 06:04 96 12/31/16 05:17 78 12/31/16 03:54 98.4 105 18 201/101 98 12/31/16 01:27 100 20 150/84 95 Room Air 12/30/16 22:20 98.1 102 16 170/90 96 Room Air Physical Exam GENERAL: Alert WN, WD, NAD, pleasant, unkempt, male who appears older than stated age. HEAD: NC, AT EYES: Pupils equal and round ENT: Mucous membranes pink and moist NECK: Supple, no masses, trachea midline CV: RRR, without murmur, rub, gallop, no JVD, S1-S2 no S3-S4. No carotid or femoral bruits RESP: Diminished lung sounds bilateral bases. Clear lungs bilateral upper lobes. No crackles, wheeze, rhonchi, symmetrical chest rise, nonlabored, able to speak in full sentences. ABD: Soft, NT, ND, no masses, obese, positive bowel tones EXT: Pulses +14, no dependent edema MS: Normal tone 4 extremities, nontender, no obvious deformities, full range of motion NEURO: CN II through CN XII grossly intact, motor strength 5/5, gait WNL PSYCH: A+O 3, appears to be intoxicated. Pleasant affect, appropriate mood and affect, insight and judgment, SKIN: Normal turgor, normal texture, no lesions, no rashes, sluggish cap refill , even hair distribution Laboratory Laboratory Tests Test 12/30/16 12/31/16 12/31/16 22:50 02:30 04:55 White Blood Count 6.8 Red Blood Count 4.33 Hemoglobin 14.5 Hematocrit 42.0 Mean Corpuscular Volume 96.8 Mean Corpuscular Hemoglobin 33.5 Mean Corpuscular Hemoglobin 34.6 Concent Red Cell Distribution Width 15.4 Platelet Count 252 Mean Platelet Volume 7.2 Neutrophils (%) (Auto) 59.7 Lymphocytes (%) (Auto) 26.4 Monocytes (%) (Auto) 11.1 Eosinophils (%) (Auto) 1.3 Basophils (%) (Auto) 1.5 Neutrophils # (Auto) 4.1 Lymphocytes # (Auto) 1.8 Monocytes # (Auto) 0.8 Eosinophils # (Auto) 0.1 Basophils # (Auto) 0.1 CBC Comment DIFF FINAL Differential Comment Prothrombin Time 10.5 Prothromb Time International 1.0 Ratio Activated Partial 27.3 Thromboplast Time D-Dimer Quantitative (PE/DVT) 1.44 Sodium Level 145 Potassium Level 3.7 Chloride Level 106 Carbon Dioxide Level 27.5 Anion Gap 12 Blood Urea Nitrogen 11 Creatinine 0.76 Estimat Glomerular Filtration 104 Rate Random Glucose 99 Calcium Level 8.4 Magnesium Level 2.0 Total Bilirubin 0.3 Aspartate Amino Transf 49 (AST/SGOT) Alanine Aminotransferase 34 (ALT/SGPT) Alkaline Phosphatase 78 Total Creatine Kinase 280 251 235 Creatine Kinase MB 1.2 1.0 1.1 Troponin I 0.02 0.02 0.02 Total Protein 6.8 Albumin 3.4 Lipase 301 Ethyl Alcohol Level 347 B-Type Natriuretic Peptide 9 Result Diagram: 12/30/16224912/30/16224[address] Angiography 12/31/16 0003 Signed Impressions: Service Date/Time: Saturday, December 31, 2016 00:40 - CONCLUSION: 1. Negative for pulmonary embolus. Linear scarring or atelectasis in the lingula. Obed Chadwick MD Chest X-Ray 12/30/162249 Signed Impressions: Service Date/Time: Friday, December 30, 2016 23:01 - CONCLUSION: 1. No acute findings. Obed Chadwick MD Course EKGs Normal sinus rhythm, nonspecific T-wave changes Assessment and Plan Assessment and Plan #1 Chest painadmitted to chest pain center Ruled out with 3 sets of EKGs, cardiac enzymes, and monitored throughout evening. Seen and evaluated by Dr. Zana Tao. Patient had recent stress test 11/10/16 is negative for stress induced ischemia, ejection fraction 68%. No further cardiac testing required at this time. #2 Musculoskeletal painToradol 30 mg IV 1 dose. Encouraged patient to use warm heat to affected area, may use [id number] Aleve or Motrin as needed for pain. Follow with Dr. Macias if pain persists. #3 Alcohol abuseAtivan 1 mg IV 1 dose. Strongly encouraged patient to consider alcohol cessation. #4 hypertensioncontinue previously ordered home medications of lisinopril, metoprolol, and amlodipine. Strongly encouraged him to take prescription medications and to stop taking herbal medication BP control. Importance of tight blood pressure control and risk of uncontrolled hypertension explained in depth. Encouraged him to keep follow-up appointments with PCP and compliance of medications. Denisha Ho December 31, 2016 11:10
[2016-12-31] MEDS ORDERED: LORazepam 1 MG TAB PO ONE (12:00)
[2016-12-31] MEDS ORDERED: LORazepam 2 MG TAB PO ONE (14:15)
[2016-12-31] MEDS ORDERED: LISI-515 PO (14:37)
[2016-12-31] MEDS ORDERED: METO-309 PO (14:37)
[2016-12-31] MEDS ORDERED: AMLO10 PO (14:37)
--- NOTE | 2016-12-31 14:38 | HHI.DCPOC ---
Discharge Care Plan Diagnosis: (1) HTN (hypertension) (2) Alcohol abuse (3) Atypical chest pain (4) Musculoskeletal chest pain Goals to Promote Your Health * To prevent worsening of your condition and complications * To maintain your health at the optimal level Directions to Meet Your Goals Take your medications as prescribed Follow your dietary instruction Follow activity as directed Keep your appointments as scheduled Take your immunizations and boosters as scheduled If your symptoms worsen call your PCP, if no PCP go to Urgent Care Center or Emergency Room Smoking is Dangerous to Your Health. Avoid second hand smoke Call the 24-hour hour crisis hotline for domestic abuse at Denisha Ho December 31, 2016 14:38
--- NOTE | 2016-12-31 14:44 | EKG ---
Date Performed: 12/31/2016 Time Performed: 02:44:14 PTAGE: 61 years EKG: Sinus rhythm NONSPECIFIC ST & T-WAVE ABNORMALITY BORDERLINE ECG PREVIOUS TRACING : 12/18/2016 20.22 Since previous tracing, no significant change noted DOCTOR: Zana Tao Interpretating Date/Time 12/31/2016 14:42:56
--- NOTE | 2016-12-31 14:49 | EKG ---
Date Performed: 12/31/2016 Time Performed: 05:03:06 PTAGE: 61 years EKG: Sinus rhythm BORDERLINE RIGHT AXIS DEVIATION NONSPECIFIC T-WAVE ABNORMALITY BORDERLINE ECG PREVIOUS TRACING : 12/31/2016 02.44 Compared to previous tracing ,axis more rightward. DOCTOR: Zana Tao Interpretating Date/Time 12/31/2016 14:48:07
[2016-12-31] MEDS ORDERED: METOPROLOL TARTRATE 50 MG TAB PO SCH (21:00)
== END 2016-12-31 15:44 | disposition home or self-care (01) ==
LOC: NEPE 22:08 → NEDA 12-31 01:30 → NEPHCDU 12-31 02:52
DX: R07.89 Other chest pain (principal); I11.0 Hypertensive heart disease with heart failure; I50.9 Heart failure, unspecified; F10.10 Alcohol abuse, uncomplicated; J44.9 Chronic obstructive pulmonary disease, unspecified; I48.91 Unspecified atrial fibrillation; M19.90 Unspecified osteoarthritis, unspecified site; Z88.1 Allergy status to other antibiotic agents; Z88.0 Allergy status to penicillin; Z88.2 Allergy status to sulfonamides; Z88.8 Allergy status to other drugs, medicaments and biological substances; Z79.82 Long term (current) use of aspirin; Z87.891 Personal history of nicotine dependence; Z82.49 Family history of ischemic heart disease and other diseases of the circulatory system; Z86.718 Personal history of other venous thrombosis and embolism
CPT/HCPCS: 71010; 71275; 80053; 80307; 82550; 82552; 83690; 83735; 83880; 84484; 85025; 85379; 85610; 85730; 93005; 96374; 96375; 99285; G0378; J1885; J2060; J2270; Q9967

== ENCOUNTER 2017-01-12 02:26 | Inpatient (IN) | payer MEDICAID ==
[~2017-01-12] VITALS: Ht 188 cm; Wt 98.0 kg
[2017-01-12] VITALS (8 sets, daily range): BP systolic 141–188; BP diastolic 74–119; PULSE 88–126; RESP 14–28; TEMP 98.3–99.2; O2SAT 95–99
[~2017-01-12 02:26] MED LIST changes: -ONDA4TAB7 SL
--- NOTE | 2017-01-12 02:45 | PD ---
HPI Chief Complaint: Alcohol/Drug Intoxication Time Seen by Provider: 02:42 Travel History International Travel<30 days: No Contact w/Intl Traveler<30days: No Traveled to known affect area: No History of Present Illness HPI 61-year-old white male presents to emergency department [facility] by PD. Patient was found intoxicated and was unable to care for himself. He was brought in for evaluation and treatment. The patient here intoxicated. He admits to consuming a large amount of alcohol. He states that he has been depressed over his divorce. He states that he has not been able to continue him on life. He has been to detox multiple times. He denies any suicidal or homicidal ideation. No medical complaints. PFSH Past Medical History Hx Anticoagulant Therapy: Yes (DVT-ASA) Arthritis: Yes (bursitis tendonitis) Asthma: No Atrial Fibrillation: Yes Autoimmune Disease: No Blood Disorders: No Anxiety: Yes Depression: Yes Heart Rhythm Problems: Yes (LBBB, afib RVR) Cancer: No Cardiac Catheterization: No Cardiovascular Problems: Yes (A FIB RVR, CHF, HTN left bundle branch) High Cholesterol: No Chest Pain: Yes Congestive Heart Failure: Yes COPD: Yes Cerebrovascular Accident: No Diabetes: No Diminished Hearing: No Endocrine: No Gastrointestinal Disorders: No Genitourinary: Yes (not urinating "a lot") Headaches: No Hypertension: Yes Immune Disorder: No Implanted Vascular Access Dvce: No Kidney Stones: Yes Musculoskeletal: Yes (many broken bones in the past) Neurologic: Yes (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) Psychiatric: No Reproductive: No Respiratory: Yes (COPD) Immunizations Current: Yes Migraines: No Seizures: Yes Shingles: Yes Sleep Apnea: No Ulcer: No Past Surgical History Abdominal Surgery: Yes (HERNIA REPAIR) Cardiac Surgery: No Coronary Artery Bypass Graft: No Ear Surgery: No Endocrine Surgery: No Eye Surgery: No Genitourinary Surgery: No Gynecologic Surgery: No Neurologic Surgery: No Oral Surgery: No Thoracic Surgery: No Tonsillectomy: Yes Other Surgery: Yes Family History Family Myocardial Infarction: Yes (maternal) Social History Alcohol Use: Yes (1-2 PINTS DAILY VODKA) Tobacco Use: No Substance Use: No Allergies-Medications (Allergen,Severity, Reaction): Coded Allergies: Keflex (Verified Allergy, Severe, hives, 12/31/16) Penicillin (Verified Allergy, Severe, hives, 12/31/16) Sulfa (Verified Allergy, Severe, hives, 12/31/16) Nitroglycerin (Verified Allergy, Mild, 12/31/16) vomit Reported Meds & Prescriptions Reported Meds & Active Scripts Active Lopressor (Metoprolol Tartrate) 50 Mg Tab 50 Mg PO Q12HR Lisinopril 20 Mg Tab 40 Mg PO DAILY Norvasc (Amlodipine Besylate) 10 Mg Tab 10 Mg PO DAILY Aspirin EC (Aspirin) 81 Mg Tabdr 81 Mg PO DAILY Review of Systems ROS Limitations: Intoxication Physical Exam Narrative GENERAL: Well-nourished, well-developed patient. Smells of EtOH and appears intoxicated SKIN: Warm and dry. HEAD: Normocephalic and atraumatic. EYES: No scleral icterus. No injection or drainage. ENT: No nasal drainage noted. Mucous membranes pink. Airway patent. NECK: Supple, trachea midline. Moves head freely without obvious discomfort. CARDIOVASCULAR: Regular rate and rhythm without murmurs, gallops, or rubs. RESPIRATORY: Breath sounds equal bilaterally. No accessory muscle use. GASTROINTESTINAL: Abdomen soft, non-tender, nondistended. EXTREMITIES: No cyanosis or edema. BACK: Nontender without obvious deformity. No CVA tenderness. NEURO: Patient is alert and oriented. no sensorimotor deficits. Nonfocal. Mildly slurred speech. PSYCH: No delusions. No auditory or visual hallucinations. Data Data Last Documented VS Vital Signs Date Time Temp Pulse Resp B/P Pulse Ox O2 Delivery O2 Flow Rate FiO2 01/12/17 02:36 98.9 98 14 179/117 96 MDM Medical Decision Making Medical Screen Exam Complete: Yes Emergency Medical Condition: Yes Medical Record Reviewed: Yes Differential Diagnosis Differential diagnoses: Alcohol intoxication, substance abuse, electrolyte abnormality, malingering Narrative Course The patient here is intoxicated. He will sober appearing in the ER and once he exhibits sobriety the patient may be discharged safely. This is alcohol intoxication, [place] act Diagnosis Primary Impression: Alcohol intoxication Qualified Code: F10.920 - Alcohol intoxication, uncomplicated Patient Instructions: General Instructions Additional Instructions: Rest. Increase fluids. Avoid alcohol. Avoid illegal substances. Follow-up with [facility] for detox. Do not operate a car or any heavy machinery under the influence of alcohol or drugs. Follow-up with a medical doctor this week. Return to the ER for emergencies Med/Other Pt SpecificInfo: No Meds Exist/No RX given Disposition: 01 DISCHARGE HOME Condition: Stable Obed To Jan 12, 2017 02:45
[2017-01-12] MEDS ORDERED: LORazepam 2 MG TAB PO PRN (10:15)
[2017-01-12] MEDS ORDERED: LORazepam 2 MG/ML VIAL IV PUSH PRN ×8 (10:15→13:00)
[2017-01-12] MEDS ORDERED: LORazepam 1 MG TAB PO PRN (10:15)
--- NOTE | 2017-01-12 10:17 | PD ---
Data Data Last Documented VS Vital Signs Date Time Temp Pulse Resp B/P Pulse Ox O2 Delivery O2 Flow Rate FiO2 01/12/17 10:03 106 28 141/74 95 Nasal Cannula 2 01/12/17 02:36 98.9 Orders Diet Regular Basic (01/12/17 Breakfast) Alcohol Withdrawal Asmt-Ciwa ONCE (01/12/17 10:15) Lorazepam (Ativan) (01/12/17 10:15) Lorazepam Inj (Ativan Inj) (01/12/17 10:15) Lorazepam (Ativan) (01/12/17 10:15) Lorazepam Inj (Ativan Inj) (01/12/17 10:15) Lorazepam Inj (Ativan Inj) (01/12/17 10:15) Lorazepam Inj (Ativan Inj) (01/12/17 10:15) Complete Blood Count With Diff (01/12/17 10:15) Comprehensive Metabolic Panel (01/12/17 10:15) Electrocardiogram (01/12/17 10:15) Psych Screen (01/12/17 10:15) Drug Screen, Random Urine (01/12/17 10:15) Alcohol (Ethanol) (01/12/17 10:15) Salicylates (Aspirin) (01/12/17 10:15) Tylenol (Acetaminophen) (01/12/17 10:15) Admit Order (Ed Use Only) (01/12/17 ) Labs Laboratory Tests Test 01/12/17 10:30 White Blood Count 4.3 TH/MM3 Red Blood Count 4.21 MIL/MM3 Hemoglobin 14.4 GM/DL Hematocrit 41.0 % Mean Corpuscular Volume 97.6 FL Mean Corpuscular Hemoglobin 34.2 PG Mean Corpuscular Hemoglobin 35.1 % Concent Red Cell Distribution Width 16.0 % Platelet Count 105 TH/MM3 Mean Platelet Volume 6.9 FL Neutrophils (%) (Auto) 54.2 % Lymphocytes (%) (Auto) 24.1 % Monocytes (%) (Auto) 18.6 % Eosinophils (%) (Auto) 2.2 % Basophils (%) (Auto) 0.9 % Neutrophils # (Auto) 2.3 TH/MM3 Lymphocytes # (Auto) 1.0 TH/MM3 Monocytes # (Auto) 0.8 TH/MM3 Eosinophils # (Auto) 0.1 TH/MM3 Basophils # (Auto) 0.0 TH/MM3 CBC Comment DIFF FINAL Differential Comment Sodium Level 143 MEQ/L Potassium Level 3.6 MEQ/L Chloride Level 106 MEQ/L Carbon Dioxide Level 24.0 MEQ/L Anion Gap 13 MEQ/L Blood Urea Nitrogen 17 MG/DL Creatinine 0.73 MG/DL Estimat Glomerular Filtration 109 ML/MIN Rate Random Glucose 93 MG/DL Calcium Level 8.2 MG/DL Total Bilirubin 0.5 MG/DL Aspartate Amino Transf 95 U/L (AST/SGOT) Alanine Aminotransferase 47 U/L (ALT/SGPT) Alkaline Phosphatase 60 U/L Total Protein 6.8 GM/DL Albumin 3.5 GM/DL Salicylates Level LESS THAN 1.7 MG/DL Acetaminophen Level LESS THAN 2.0 MCG/ML Ethyl Alcohol Level 222 MG/DL MDM Supervised Visit with [facility]: Yes Interpretation(s) EKG shows sinus rhythm with a normal axis and normal R-wave progression. No concerning ST-T changes. Intervals within normal limits. This is a normal EKG. Narrative Course Patient care assumed from Judson Ferro and Keira Shah M.D. at 09 100. Patient was here overnight for alcohol intoxication. Assessment nurse in to reevaluate the patient as he states that he is not feeling well and cannot walk. On my evaluation the patient has coarse tremor in all 4 extremities is stating that he can't walk and feels like he is an bad withdrawals. He states she's never had withdrawals this bad but has had them before. He endorses to 2 pints of vodka a day for the past year. My physical exam the patient has mild to moderate alcohol withdrawals, alcohol level of 222. She will orders were placed. Patient was discussed with Dr. Story for admission who is agreeable. Diagnosis Primary Impression: Alcohol intoxication Qualified Code: F10.920 - Alcohol intoxication, uncomplicated Referrals: Jessica Flores MD (Family) as needed Patient Instructions: General Instructions, Abuse of Alcohol (ED) Departure Forms: Tests/Procedures Additional Instruction: Rest. Increase fluids. Avoid alcohol. Avoid illegal substances. Follow-up with [facility] for detox. Do not operate a car or any heavy machinery under the influence of alcohol or drugs. Follow-up with a medical doctor this week. Return to the ER for emergencies Disposition: 01 DISCHARGE HOME Condition: Stable Christian Vega MD Jan 12, 2017 10:17
[2017-01-12 10:52] LABS: AUTOMATED NEUTROPHIL # 2.3 TH/MM3 (1.8-7.7); BASOPHIL % 0.9 % (0.0-2.0); EOSINOPHIL # 0.1 TH/MM3 (0-0.4); EOSINOPHIL % 2.2 % (0.0-4.0); HEMO FLAGS DIFF FINAL; LYMPH % 24.1 % (9.0-44.0); MEAN CELL VOLUME 97.6 FL (80.0-100.0); MEAN CORPUSCULAR HEMOGLOBIN 34.2 PG (27.0-34.0); MEAN CORPUSCULAR HGB CONC 35.1 % (32.0-36.0); MONO % 18.6 % (0.0-8.0); NEUT % 54.2 % (16.0-70.0); PLATELET COUNT 105 TH/MM3 (150-450); RED BLOOD COUNT 4.21 MIL/MM3 (4.50-5.90); WHITE BLOOD COUNT 4.3 TH/MM3 (4.0-11.0)
[2017-01-12 11:06] LABS: ALT (GPT) 47 U/L (12-78); ANION GAP 13 MEQ/L (5-15); AST (GOT) 95 U/L (15-37); BLOOD UREA NITROGEN 17 MG/DL (7-18); CHLORIDE 106 MEQ/L (98-107); GLOMERULAR FILTRATION RATE 109 ML/MIN (>89); POTASSIUM 3.6 MEQ/L (3.5-5.1); SODIUM (NA) 143 MEQ/L (136-145)
[2017-01-12 11:08] LABS: ACETAMINOPHEN LESS THAN 2.0 MCG/ML (10.0-30.0); ALKALINE PHOSPHATASE 60 U/L (45-117); TOTAL BILIRUBIN ADULT 0.5 MG/DL (0.2-1.0)
[2017-01-12] MEDS ORDERED: FLUMAZENIL 0.5 MG/5 ML VIAL IV PUSH PRN (13:00)
[2017-01-12] MEDS ORDERED: SODIUM CHLORIDE 0.9% FLUSH 10 ML FLUSH IV FLUSH PRN (13:00)
--- NOTE | 2017-01-12 13:37 | HHI.HP ---
[facility] Admission Diagnosis Alcohol Withdrawal Diagnoses: Chief Complaint: Nausea, "passed out" Travel History International Travel<30 Days: No Contact w/Intl Traveler <30 Da: No Traveled to Known Affected Are: No History of Present Illness Written by Clark Ruiz, acting as scribe for Dr. Story on 01/12/17 at 13:02. This note was transcribed by gerardo FRAUSTO. I, Dr. Carlota Story personally performed the history, physical exam, and medical decision making; and confirmed the accuracy of the information in the transcribed note. Authenticated by Dr. Carlota Story on 01/12/17 at 13:02. Patient is a 61-year-old male with primary medical history of HTN, A. fib, anxiety, depression, EtOH, CHF, seizure from alcohol withdrawal who came in to the hospital under act by the police department. Patient was found intoxicated and was unable to care for himself. Patient had multiple readmissions to the hospital secondary to EtOH abuse, intoxication. Last admission 12/31/16 chest pain, 12/15/16 for syncopal episode related to alcohol intoxication. Patient seen and examined today. Reports he just "passed out" due to drinking alcohol. Reports he continued to drink 1-2 pints of vodka every day. He plans to stop stating " I need to quit because I am killing myself." Denies any SI/HI. Also complained of chest pain left side between stomach and rib cage area. Reproducible by palpation. Pain is rated 5/10 doesn 't radiate anywhere. States he had this chest pain also in the past, associated with burning sensation in the sternal area. He also complains of nausea and headaches. Reports he had episode of seizures with alcohol withdrawal but not recently. Denies SOB/ dyspnea. Denies chest pain, palpitations. Denies fevers, chills, diarrhea. Denies hematuria, dysuria. Review of Systems Except as stated in HPI: all other systems reviewed are Neg Past Family Social History Past Medical History HTN COPD A. fib Alcohol abuse Alcohol withdrawal with seizures BBB Past Surgical History Hernia repair Reported Medications Reported Meds & Active Scripts Active Lopressor (Metoprolol Tartrate) 50 Mg Tab 50 Mg PO Q12HR Lisinopril 20 Mg Tab 40 Mg PO DAILY Norvasc (Amlodipine Besylate) 10 Mg Tab 10 Mg PO DAILY Aspirin EC (Aspirin) 81 Mg Tabdr 81 Mg PO DAILY Allergies: Coded Allergies: Keflex (Verified Allergy, Severe, hives, 12/31/16) Penicillin (Verified Allergy, Severe, hives, 12/31/16) Sulfa (Verified Allergy, Severe, hives, 12/31/16) Nitroglycerin (Verified Allergy, Mild, 12/31/16) vomit Active Ordered Medications Current Medications Medications (Trade) Dose Ordered Sig/Candy Route Start Time Stop Time Status Last Admin (Ativan) 1 mg Q4H PRN PO 01/12/17 10:15 (Ativan Inj) 1 mg Q4H PRN IV PUSH 01/12/17 10:15 01/12/17 12:31 (Ativan) 2 mg Q2H PRN PO 01/12/17 10:15 (Ativan Inj) 2 mg Q2H PRN IV PUSH 01/12/17 10:15 (Ativan Inj) 2 mg Q1H PRN IV PUSH 01/12/17 10:15 01/12/17 10:40 (Ativan Inj) 2 mg Q15M PRN IV PUSH 01/12/17 10:15 (NS Flush) 2 ml UNSCH PRN IV FLUSH 01/12/17 13:00 (NS Flush) 2 ml BID IV FLUSH 01/12/17 21:00 (Folate) 1 mg DAILY PO 01/13/17 09:00 01/18/17 08:59 (Vitamin B1) 100 mg DAILY PO 01/13/17 09:00 (Theragran M Tab) 1 tab DAILY PO 01/13/17 09:00 01/18/17 08:59 (Zofran Inj) 4 mg Q6H PRN IV 01/12/17 13:00 (Protonix) 40 mg DAILY PO 01/13/17 09:00 (Catapres) 0.1 mg Q6H PRN PO 01/12/17 13:00 (Romazicon Inj) 0.2 mg Q1M PRN IV PUSH 01/12/17 13:00 (Ativan) 1 mg Q4H PRN PO 01/12/17 13:00 (Ativan Inj) 1 mg Q4H PRN IV PUSH 01/12/17 13:00 (Ativan) 2 mg Q2H PRN PO 01/12/17 13:00 UNV (Ativan Inj) 2 mg Q2H PRN IV PUSH 01/12/17 13:00 UNV (Ativan Inj) 2 mg Q1H PRN IV PUSH 01/12/17 13:00 UNV (Ativan Inj) 2 mg Q15M PRN IV PUSH 01/12/17 13:00 UNV (Lovenox Inj) 40 mg Q24H SQ 01/12/17 13:00 UNV Family History No family history of DM, HTN Social History Current alcohol use 1-2 pints vodka daily Denies tobacco use, former smoker 1 pack per day quit more than a year ago Denies illicit drug use Physical Exam Vital Signs Vital Signs Date Time Temp Pulse Resp B/P Pulse Ox O2 Delivery O2 Flow Rate FiO2 01/12/17 10:03 106 28 141/74 95 Nasal Cannula 2 01/12/17 06:46 88 16 168/89 99 Room Air 01/12/17 02:36 98.9 98 14 179/117 96 Physical Exam GENERAL: This is a dishevelled, well developed patient, in no apparent distress. SKIN: Warm and dry. Sun burnt skin. HEAD: Atraumatic. Normocephalic. No temporal or scalp tenderness. EYES: Pupils equal round and reactive. Extraocular motions intact. No scleral icterus. No injection or drainage. ENT: Nose without bleeding. Throat without erythema. Uvula midline. Airway patent. NECK: Trachea midline. No JVD or lymphadenopathy. Supple, nontender, no meningeal signs. CARDIOVASCULAR: Regular rate and rhythm without murmurs, gallops, or rubs. RESPIRATORY: Diminished bases. No wheezes, rales, or rhonchi. GASTROINTESTINAL: Abdomen soft, non-tender, nondistended. No hepato-splenomegaly , or palpable masses. No guarding. MUSCULOSKELETAL: Extremities without clubbing, cyanosis, or edema. No joint tenderness, effusion, or edema noted. NEUROLOGICAL: Awake and alert. Motor and sensory grossly within normal limits. Normal speech. Laboratory Laboratory Tests Test 01/12/17 10:30 White Blood Count 4.3 Red Blood Count 4.21 Hemoglobin 14.4 Hematocrit 41.0 Mean Corpuscular Volume 97.6 Mean Corpuscular Hemoglobin 34.2 Mean Corpuscular Hemoglobin 35.1 Concent Red Cell Distribution Width 16.0 Platelet Count 105 Mean Platelet Volume 6.9 Neutrophils (%) (Auto) 54.2 Lymphocytes (%) (Auto) 24.1 Monocytes (%) (Auto) 18.6 Eosinophils (%) (Auto) 2.2 Basophils (%) (Auto) 0.9 Neutrophils # (Auto) 2.3 Lymphocytes # (Auto) 1.0 Monocytes # (Auto) 0.8 Eosinophils # (Auto) 0.1 Basophils # (Auto) 0.0 CBC Comment DIFF FINAL Differential Comment Sodium Level 143 Potassium Level 3.6 Chloride Level 106 Carbon Dioxide Level 24.0 Anion Gap 13 Blood Urea Nitrogen 17 Creatinine 0.73 Estimat Glomerular Filtration 109 Rate Random Glucose 93 Calcium Level 8.2 Total Bilirubin 0.5 Aspartate Amino Transf 95 (AST/SGOT) Alanine Aminotransferase 47 (ALT/SGPT) Alkaline Phosphatase 60 Total Protein 6.8 Albumin 3.5 Salicylates Level LESS THAN 1.7 Acetaminophen Level LESS THAN 2.0 Ethyl Alcohol Level 222 Result Diagram: 01/12/17 1030 01/12/17 1030 Assessment and Plan Problem List: (1) Alcohol intoxication ICD Code: F10.929 Status: Acute (2) Atypical chest pain ICD Code: R07.89 Status: Acute (3) HTN (hypertension) ICD Code: I10 Status: Chronic Assessment and Plan Patient is a 61-year-old male with primary medical history of HTN, A. fib, anxiety, depression, EtOH, CHF, seizure from alcohol withdrawal who came in to the hospital under act by the police department. Patient was found intoxicated and was unable to care for himself. Patient had multiple readmissions to the hospital secondary to EtOH abuse, intoxication. Alcohol intoxication Alcohol withdrawals Seizure with withdrawals - Alcohol level 222 - [facility] protocol - Seizure precaution, neurochecks - Multivitamin, folic acid and thiamine daily - Pantoprazole 40 mg - Psychiatry consult. Evaluate patient continues to have EtOH abuse. Atypical chest pain - Most likely musculoskeletal related VS GERD, reproducible with palpation - EKG reviewed by me and compared to previous EKGs sinus rhythm, no significant ST changes HR 86 - Pantoprazole 40 mg - Keystone x1 dose now, Tylenol when necessary Hypertension, accelerated - Possibly related to alcohol abuse. - Clonidine 0.1mg Q6hrs PRN - Start on home meds lisinopril 20mg day - increased to 40 mg daily if continues to be uncontrolled, Norvasc 10 mg daily, metoprolol 50 mg every 12 hours - Monitor BP trend DVT prop Lovenox Code Status Full code Discussed Condition With Patient, nursing, ED attending Physician Certification 2 Midnight Certification Type: Admission for Inpatient Services Order for Inpatient Services The services are ordered in accordance with Medicare regulations or non- Medicare payer requirements, as applicable. In the case of services not specified as inpatient-only, they are appropriately provided as inpatient services in accordance with the 2-midnight benchmark. Estimated LOS (days): 3 days is the estimated time the patient will need to remain in the hospital, assuming treatment plan goals are met and no additional complications. Post-Hospital Plan: Home Problem Qualifiers (1) Alcohol intoxication: Qualified Code: F10.920 - Alcohol intoxication, uncomplicated Clark Carballo Jan 12, 2017 13:37 Carlota Story MD Jan 12, 2017 16:59
[2017-01-12] MEDS ORDERED: ACETAMINOPHEN/HYDROcodone 325 MG/5 MG TAB PO ONE (14:00)
[2017-01-12] MEDS: LISINOPRIL 20 MG TAB PO SCH (14:44)
[2017-01-12] MEDS: ENOXAPARIN SODIUM 40 MG/0.4 ML SYRINGE SQ SCH (14:44)
[2017-01-12] MEDS: LORazepam 2 MG TAB PO PRN ×4 (14:44→23:45)
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
[2017-01-12] MEDS: ONDANSETRON HCL 4 MG/2 ML VIAL IV PRN (18:15)
[2017-01-12] MEDS: MORPHINE SULFATE 4 MG/ML INJ IV PUSH PRN ×2 (19:57→23:46)
[2017-01-12] MEDS: METOPROLOL TARTRATE 50 MG TAB PO SCH (19:57)
[2017-01-12] MEDS: SODIUM CHLORIDE 0.9% FLUSH 10 ML FLUSH IV FLUSH SCH (20:00)
[2017-01-12] MEDS ORDERED: PANTOPRAZOLE SODIUM 40 MG VIAL IV PUSH SCH (20:00)
[2017-01-12] MEDS: cloNIDine HCL 0.1 MG TAB PO PRN (23:45)
[2017-01-13] VITALS (9 sets, daily range): BP systolic 154–165; BP diastolic 92–115; PULSE 82–121; RESP 16–21; TEMP 97.3–98.8; O2SAT 93–98
[2017-01-13] MEDS: LORazepam 2 MG TAB PO PRN ×3 (02:51→10:12)
[2017-01-13] MEDS: MORPHINE SULFATE 4 MG/ML INJ IV PUSH PRN ×2 (02:52→06:24)
[2017-01-13] MEDS ORDERED: PANTOPRAZOLE SOD 40 MG DELAYED RELEASE TAB PO SCH (09:00)
--- NOTE | 2017-01-13 09:58 | HHI.PR ---
Subjective Remarks Says he is not able to eat much. Says he has no appetite. Has epigastric pain. + tremors and feels jittery. Had some nausea, no vomiting. No diarrhea or constipation. Objective Vitals Vital Signs Date Time Temp Pulse Resp B/P Pulse Ox O2 Delivery O2 Flow Rate FiO2 01/13/17 08:00 98.1 82 21 165/96 95 01/13/17 07:32 110 01/13/17 06:14 160/96 01/13/17 04:40 98.8 84 18 156/100 93 01/13/17 03:26 121 01/12/17 23:06 99.2 121 20 186/106 98 184/102 01/12/17 19:30 98.9 126 20 176/96 98 01/12/17 16:58 178/94 01/12/17 16:00 98.3 120 20 188/119 97 01/12/17 15:24 88 01/12/17 10:03 106 28 141/74 95 Nasal Cannula 2 I/O 01/12/17 01/12/17 01/12/17 01/13/17 01/13/17 01/13/17 07:00 15:00 23:00 07:00 15:00 23:00 Intake Total 480 ml 144 ml 0 ml Balance 480 ml 144 ml 0 ml Intake Oral 480 ml 120 ml IV Total 24 ml 0 ml # Voids 4 4 # Bowel Movements 1 Result Diagram: 01/12/17 1030 01/12/17 1030 Objective Remarks GENERAL: This is a dishevelled, well developed patient, in no apparent distress. SKIN: Warm and dry. Sun burnt skin. HEAD: Atraumatic. Normocephalic. No temporal or scalp tenderness. CARDIOVASCULAR: Regular rate and rhythm without murmurs, gallops, or rubs. RESPIRATORY: Diminished bases. No wheezes, rales, or rhonchi. GASTROINTESTINAL: Abdomen soft,mild epigastric tenderness, nondistended. No hepato-splenomegaly, or palpable masses. No guarding. MUSCULOSKELETAL: Extremities without clubbing, cyanosis, or edema. No joint tenderness, effusion, or edema noted. NEUROLOGICAL: Awake and alert. Motor and sensory grossly within normal limits. Normal speech. A/P Problem List: (1) Alcohol intoxication ICD Code: F10.929 Status: Acute (2) Atypical chest pain ICD Code: R07.89 Status: Acute (3) HTN (hypertension) ICD Code: I10 Status: Chronic Assessment and Plan Patient is a 61-year-old male with primary medical history of HTN, A. fib, anxiety, depression, EtOH, CHF, seizure from alcohol withdrawal who came in to the hospital under [place] act by the police department. Patient was found intoxicated and was unable to care for himself. Patient had multiple readmissions to the hospital secondary to EtOH abuse, intoxication. Alcohol intoxication Alcohol withdrawals Seizure with withdrawals - Alcohol level 222 - CIWA protocol - Seizure precaution, neurochecks - Multivitamin, folic acid and thiamine daily - Pantoprazole 40 mg - Psychiatry consult. Evaluate patient continues to have EtOH abuse. Seen by psych recommends DC CIWA and start taper librium 50 mg q4 hrs. F/u as OP, 12 step program as patient had success in the past , [facility] . CM- ETOH following Atypical chest pain, patient has mostly epigastric pain radiating to the chest , GERD now worsened with EtOH use - GERD - EKG reviewed by me and compared to previous EKGs sinus rhythm, no significant ST changes HR 86 - Pantoprazole 40 mg - Tylenol when necessary for pain or fever Hypertension, accelerated - Possibly related to alcohol abuse. - Clonidine 0.1mg Q6hrs PRN - Start on home meds lisinopril 20mg day - increased to 40 mg daily if continues to be uncontrolled, Norvasc 10 mg daily, metoprolol 50 mg every 12 hours - Monitor BP trend DVT prop Lovenox Code Status Full code Discussed Condition With Patient, nurse, Felecia from pharmacy regarding tapering dose of librium Problem Qualifiers (1) Alcohol intoxication: Qualified Code: F10.920 - Alcohol intoxication, uncomplicated Carlota Story MD Jan 13, 2017 09:58
[2017-01-13] MEDS: FOLIC ACID 1 MG TAB PO SCH (10:11)
[2017-01-13] MEDS: LISINOPRIL 20 MG TAB PO SCH (10:12)
[2017-01-13] MEDS: THIAMINE HCL 100 MG TAB PO SCH (10:12)
[2017-01-13] MEDS: SODIUM CHLORIDE 0.9% FLUSH 10 ML FLUSH IV FLUSH SCH ×2 (10:12→21:00)
[2017-01-13] MEDS: MULTIVITAMINS/MINERALS THERAPEUTIC TAB PO SCH (10:12)
[2017-01-13] MEDS: METOPROLOL TARTRATE 50 MG TAB PO SCH ×2 (10:12→22:17)
[2017-01-13] MEDS: PANTOPRAZOLE SOD 40 MG DELAYED RELEASE TAB PO SCH (11:00)
[2017-01-13 11:19] LABS: AUTOMATED NEUTROPHIL # 3.9 TH/MM3 (1.8-7.7); BASOPHIL % 0.6 % (0.0-2.0); EOSINOPHIL # 0.1 TH/MM3 (0-0.4); EOSINOPHIL % 1.7 % (0.0-4.0); HEMATOCRIT 41.9 % (39.0-51.0); LYMPH % 13.1 % (9.0-44.0); LYMPHOCYTE # 0.8 TH/MM3 (1.0-4.8); MEAN CELL VOLUME 99.3 FL (80.0-100.0); MEAN CORPUSCULAR HEMOGLOBIN 33.6 PG (27.0-34.0); MEAN CORPUSCULAR HGB CONC 33.9 % (32.0-36.0); NEUT % 66.6 % (16.0-70.0); PLATELET COUNT 93 TH/MM3 (150-450); RED BLOOD COUNT 4.21 MIL/MM3 (4.50-5.90); RED CELL DISTRIBUTION WIDTH 15.6 % (11.6-17.2); WHITE BLOOD COUNT 5.8 TH/MM3 (4.0-11.0)
[2017-01-13 11:27] LABS: HEMO FLAGS AUTO DIFF
[2017-01-13 11:45] LABS: ALKALINE PHOSPHATASE 53 U/L (45-117); ALT (GPT) 47 U/L (12-78); ANION GAP 11 MEQ/L (5-15); AST (GOT) 81 U/L (15-37); BICARBONATE 29.4 MEQ/L (21.0-32.0); BLOOD UREA NITROGEN 9 MG/DL (7-18); CHLORIDE 97 MEQ/L (98-107); GLOMERULAR FILTRATION RATE 139 ML/MIN (>89); POTASSIUM 3.5 MEQ/L (3.5-5.1); SODIUM (NA) 137 MEQ/L (136-145); TOTAL BILIRUBIN ADULT 1.2 MG/DL (0.2-1.0)
[2017-01-13 12:07] LABS: SCAN/DIFF AUTO DIFF CONFIRMED
[2017-01-13] MEDS: chlordiazePOXIDE 25 MG CAP PO SCH ×4 (12:17→22:17)
--- NOTE | 2017-01-13 13:59 | EKG ---
Date Performed: 01/12/2017 Time Performed: 10:33:42 PTAGE: 61 years EKG: Sinus rhythm NONSPECIFIC ST & T-WAVE ABNORMALITY Compared to previous tracing, ST-T changes anterolaterally are s lightly more prominent, otherwise no significant change BORDERLINE ECG PREVIOUS TRACING : 12/31/2016 05.03 DOCTOR: Zana Tao Interpretating Date/Time 01/13/2017 13:57:18
[2017-01-13] MEDS: ENOXAPARIN SODIUM 40 MG/0.4 ML SYRINGE SQ SCH (15:17)
[2017-01-14] VITALS (7 sets, daily range): BP systolic 124–164; BP diastolic 72–100; PULSE 78–96; RESP 16–20; TEMP 96.9–98.2; O2SAT 95–100
[2017-01-14] MEDS: cloNIDine HCL 0.1 MG TAB PO PRN (01:35)
[2017-01-14] MEDS: LORazepam 2 MG TAB PO PRN ×4 (01:35→20:46)
[2017-01-14] MEDS: chlordiazePOXIDE 25 MG CAP PO SCH ×5 (02:40→22:00)
[2017-01-14] MEDS: THIAMINE HCL 100 MG TAB PO SCH (08:16)
[2017-01-14] MEDS: LISINOPRIL 20 MG TAB PO SCH (08:16)
[2017-01-14] MEDS: METOPROLOL TARTRATE 50 MG TAB PO SCH ×2 (08:17→20:45)
[2017-01-14] MEDS: FOLIC ACID 1 MG TAB PO SCH (08:17)
[2017-01-14] MEDS: PANTOPRAZOLE SOD 40 MG DELAYED RELEASE TAB PO SCH (08:17)
[2017-01-14] MEDS: SODIUM CHLORIDE 0.9% FLUSH 10 ML FLUSH IV FLUSH SCH ×2 (08:17→20:46)
[2017-01-14] MEDS: MULTIVITAMINS/MINERALS THERAPEUTIC TAB PO SCH (08:17)
[2017-01-14 08:35] LABS: AUTOMATED NEUTROPHIL # 3.4 TH/MM3 (1.8-7.7); BASOPHIL % 0.5 % (0.0-2.0); EOSINOPHIL # 0.1 TH/MM3 (0-0.4); EOSINOPHIL % 2.5 % (0.0-4.0); HEMATOCRIT 44.4 % (39.0-51.0); LYMPHOCYTE # 1.1 TH/MM3 (1.0-4.8); MEAN CELL VOLUME 99.9 FL (80.0-100.0); MEAN CORPUSCULAR HEMOGLOBIN 33.3 PG (27.0-34.0); MEAN CORPUSCULAR HGB CONC 33.3 % (32.0-36.0); MONO % 14.3 % (0.0-8.0); NEUT % 62.7 % (16.0-70.0); PLATELET COUNT 85 TH/MM3 (150-450); RED BLOOD COUNT 4.44 MIL/MM3 (4.50-5.90); RED CELL DISTRIBUTION WIDTH 15.5 % (11.6-17.2); WHITE BLOOD COUNT 5.4 TH/MM3 (4.0-11.0)
[2017-01-14] MEDS: ONDANSETRON HCL 4 MG/2 ML VIAL IV PRN (08:39)
[2017-01-14 08:43] LABS: HEMO FLAGS AUTO DIFF
[2017-01-14 08:51] LABS: BICARBONATE 27.4 MEQ/L (21.0-32.0); MAGNESIUM 1.7 MG/DL (1.5-2.5); POTASSIUM 3.3 MEQ/L (3.5-5.1)
--- NOTE | 2017-01-14 09:01 | HHI.PR ---
Subjective Remarks Not eating much , says he doesn't have much appetite, still with epigastric pain , will consult GI. Patient has nausea but no vomiting. No diarrhea or constipation. Tremulos on/off, improving. Objective Vitals Vital Signs Date Time Temp Pulse Resp B/P Pulse Ox O2 Delivery O2 Flow Rate FiO2 01/14/17 08:00 97.1 78 20 146/99 97 01/14/17 04:00 98.2 83 16 140/87 95 01/14/17 00:00 96.9 82 16 164/100 100 01/13/17 20:00 95 01/13/17 20:00 97.3 91 16 163/115 98 01/13/17 18:04 01/13/17 16:00 98.5 92 20 154/101 95 01/13/17 15:04 106 01/13/17 12:00 98.2 82 20 158/92 95 01/13/17 11:35 I/O 01/13/17 01/13/17 01/13/17 01/14/17 01/14/17 01/14/17 07:00 15:00 23:00 07:00 15:00 23:00 Intake Total 144 ml 1200 ml Balance 144 ml 1200 ml Intake Oral 120 ml 1200 ml IV Total 24 ml 0 ml # Voids 4 4 1 0 # Bowel Movements 0 0 Result Diagram: 01/14/17 0640 01/14/17 0640 Objective Remarks GENERAL: This is a dishevelled, well developed patient, in no apparent distress. SKIN: Warm and dry. Sun burnt skin. HEAD: Atraumatic. Normocephalic. No temporal or scalp tenderness. CARDIOVASCULAR: Regular rate and rhythm without murmurs, gallops, or rubs. RESPIRATORY: Diminished bases. No wheezes, rales, or rhonchi. GASTROINTESTINAL: Abdomen soft,mild epigastric tenderness, nondistended. No hepato-splenomegaly, or palpable masses. No guarding. MUSCULOSKELETAL: Extremities without clubbing, cyanosis, or edema. No joint tenderness, effusion, or edema noted. NEUROLOGICAL: Awake and alert. Motor and sensory grossly within normal limits. Normal speech. A/P Problem List: (1) Alcohol intoxication ICD Code: F10.929 Status: Acute (2) Atypical chest pain ICD Code: R07.89 Status: Acute (3) HTN (hypertension) ICD Code: I10 Status: Chronic Assessment and Plan Patient is a 61-year-old male with primary medical history of HTN, A. fib, anxiety, depression, EtOH, CHF, seizure from alcohol withdrawal who came in to the hospital under act by the police department. Patient was found intoxicated and was unable to care for himself. Patient had multiple readmissions to the hospital secondary to EtOH abuse, intoxication. Alcohol intoxication Alcohol withdrawals Seizure with withdrawals - Alcohol level 222 - CIWA protocol - Seizure precaution, neurochecks - Multivitamin, folic acid and thiamine daily - Pantoprazole 40 mg - Psychiatry consult. Evaluate patient continues to have EtOH abuse. Seen by psych recommends DC CIWA and start taper librium 50 mg q4 hrs. F/u as OP, 12 step program as patient had success in the past , [place] . CM- ETOH following Atypical chest pain, patient has mostly epigastric pain radiating to the chest , GERD now worsened with EtOH use GERD Epigatric pain and nausea persistent. Continue pantoprazole , add carafate. Will consult GI for further evaluation. - EKG reviewed by me and compared to previous EKGs sinus rhythm, no significant ST changes HR 86 - Pantoprazole 40 mg - Tylenol when necessary for pain or fever Hypertension, accelerated - Possibly related to alcohol abuse. - Clonidine 0.1mg Q6hrs PRN - Start on home meds lisinopril 20mg day - increased to 40 mg daily if continues to be uncontrolled, Norvasc 10 mg daily, metoprolol 50 mg every 12 hours - Monitor BP trend DVT prop Lovenox Code Status Full code Discussed Condition With Patient, nurse Problem Qualifiers (1) Alcohol intoxication: Qualified Code: F10.920 - Alcohol intoxication, uncomplicated Carlota Story MD Jan 14, 2017 09:01
[2017-01-14] MEDS ORDERED: POTASSIUM CHLORIDE 10 MEQ CONTROLLED RELEASE TAB PO ONE (09:15)
[2017-01-14 09:41] LABS: PLATELET ESTIMATE SMEAR LOW (NORMAL); PLATELET MORPHOLOGY NORMAL (NORMAL); SCAN/DIFF AUTO DIFF CONFIRMED
[2017-01-14] MEDS: SUCRALFATE 1 GM TAB PO SCH ×2 (10:59→15:21)
[2017-01-14] MEDS: LORazepam 1 MG TAB PO PRN (13:55)
[2017-01-14] MEDS: ENOXAPARIN SODIUM 40 MG/0.4 ML SYRINGE SQ SCH (14:00)
[2017-01-14] MEDS: ACETAMINOPHEN 500 MG CPLT PO PRN (15:21)
[2017-01-15] VITALS (7 sets, daily range): BP systolic 133–171; BP diastolic 77–105; PULSE 66–86; RESP 18–20; TEMP 97.2–98.3; O2SAT 92–99
[2017-01-15] MEDS: LORazepam 2 MG TAB PO PRN (00:50)
[2017-01-15] MEDS: ACETAMINOPHEN 500 MG CPLT PO PRN ×4 (00:50→21:03)
[2017-01-15] MEDS: SUCRALFATE 1 GM TAB PO SCH ×2 (05:59→16:17)
[2017-01-15] MEDS: chlordiazePOXIDE 25 MG CAP PO SCH ×3 (05:59→18:18)
[2017-01-15] MEDS: LORazepam 1 MG TAB PO PRN ×4 (05:59→20:59)
[2017-01-15 07:17] LABS: BICARBONATE 25.7 MEQ/L (21.0-32.0); MAGNESIUM 1.8 MG/DL (1.5-2.5); POTASSIUM 3.3 MEQ/L (3.5-5.1)
--- NOTE | 2017-01-15 08:12 | HHI.PR ---
Subjective Remarks Complaining of epigastric abdominal pain. Says he is not able to eat. He has no appetite. Feesl nausetared. No vomiting. No diarrhea. Denies chest pain nor sob. Says he is anxious. No tremors. Objective Vitals Vital Signs Date Time Temp Pulse Resp B/P Pulse Ox O2 Delivery O2 Flow Rate FiO2 01/15/17 04:00 97.2 72 18 155/98 96 01/15/17 00:00 97.5 79 20 133/77 92 01/14/17 20:52 Room Air 01/14/17 20:00 97.8 94 18 124/72 98 01/14/17 16:00 97.8 96 20 143/94 96 01/14/17 15:00 83 01/14/17 12:00 98.0 80 20 145/94 96 I/O 01/14/17 01/14/17 01/14/17 01/15/17 01/15/17 01/15/17 07:00 15:00 23:00 07:00 15:00 23:00 Intake Total 360 ml 240 ml 240 ml Output Total 100 ml Balance 260 ml 240 ml 240 ml Intake Oral 360 ml 240 ml 240 ml Output Urine Total 100 ml # Voids 0 4 2 # Bowel Movements 0 1 0 0 Result Diagram: 01/14/17 0640 01/15/17 0521 Objective Remarks GENERAL: This is a dishevelled, well developed patient, in no apparent distress. SKIN: Warm and dry. Sun burnt skin. HEAD: Atraumatic. Normocephalic. No temporal or scalp tenderness. CARDIOVASCULAR: Regular rate and rhythm without murmurs, gallops, or rubs. RESPIRATORY: Diminished bases. No wheezes, rales, or rhonchi. GASTROINTESTINAL: Abdomen soft,mild epigastric tenderness, nondistended. No hepato-splenomegaly, or palpable masses. No guarding. MUSCULOSKELETAL: Extremities without clubbing, cyanosis, or edema. No joint tenderness, effusion, or edema noted. NEUROLOGICAL: Awake and alert. Motor and sensory grossly within normal limits. Normal speech. A/P Problem List: (1) Alcohol intoxication ICD Code: F10.929 Status: Acute (2) Atypical chest pain ICD Code: R07.89 Status: Acute (3) HTN (hypertension) ICD Code: I10 Status: Chronic Assessment and Plan Patient is a 61-year-old male with primary medical history of HTN, A. fib, anxiety, depression, EtOH, CHF, seizure from alcohol withdrawal who came in to the hospital under [place] act by the police department. Patient was found intoxicated and was unable to care for himself. Patient had multiple readmissions to the hospital secondary to EtOH abuse, intoxication. Alcohol intoxication Alcohol withdrawals Seizure with withdrawals - Alcohol level 222 - CIWA protocol - Seizure precaution, neurochecks - Multivitamin, folic acid and thiamine daily - Pantoprazole 40 mg - Psychiatry consult. Evaluate patient continues to have EtOH abuse. Seen by psych recommends DC CIWA and start taper librium 50 mg q4 hrs. F/u as OP, 12 step program as patient had success in the past , [place] . CM- ETOH following Atypical chest pain, patient has mostly epigastric pain radiating to the chest , GERD now worsened with EtOH use GERD Epigatric pain and nausea persistent. Continue pantoprazole , add carafate. Consult GI for further evaluation. - EKG reviewed by me and compared to previous EKGs sinus rhythm, no significant ST changes HR 86 - Pantoprazole 40 mg - Tylenol when necessary for pain or fever Hypertension, accelerated - Possibly related to alcohol abuse. - Clonidine 0.1mg Q6hrs PRN - Start on home meds lisinopril 20mg day - increased to 40 mg daily if continues to be uncontrolled, Norvasc 10 mg daily, metoprolol 50 mg every 12 hours - Monitor BP trend DVT prop Lovenox Code Status Full code Discussed Condition With Patient, nurse Problem Qualifiers (1) Alcohol intoxication: Qualified Code: F10.920 - Alcohol intoxication, uncomplicated Carlota Story MD Jan 15, 2017 08:12
[2017-01-15] MEDS ORDERED: POTASSIUM CHLORIDE 10 MEQ CONTROLLED RELEASE TAB PO ONE (08:15)
[2017-01-15] MEDS: FOLIC ACID 1 MG TAB PO SCH (08:19)
[2017-01-15] MEDS: PANTOPRAZOLE SOD 40 MG DELAYED RELEASE TAB PO SCH (08:20)
[2017-01-15] MEDS: THIAMINE HCL 100 MG TAB PO SCH (08:21)
[2017-01-15] MEDS: MULTIVITAMINS/MINERALS THERAPEUTIC TAB PO SCH (08:21)
[2017-01-15] MEDS: SODIUM CHLORIDE 0.9% FLUSH 10 ML FLUSH IV FLUSH SCH ×2 (08:22→21:00)
[2017-01-15] MEDS: METOPROLOL TARTRATE 50 MG TAB PO SCH ×3 (08:23→20:59)
[2017-01-15] MEDS: LISINOPRIL 20 MG TAB PO SCH ×2 (08:24→09:17)
[2017-01-15] MEDS: ENOXAPARIN SODIUM 40 MG/0.4 ML SYRINGE SQ SCH (13:38)
--- NOTE | 2017-01-15 15:31 | PD.CONS ---
HPI History of Present Illness This is a 61 year old male with hx CHF, AF LBB, COPID, who was brought to the hospital on 01/12/17 after being found intoxicated by police. He says he has been having epigastric pain for the last week and a half, along with nausea and vomiting. He has had this pain before, 4 x in the last year and a half, but not previously with nausea and vomiting. the pain is in the sub sternal region and radiates down. The pain is worse with eating. Denies blood in vomit, tarry stool. Never had endoscopy or colonoscopy. Denies frequent NSAID use. Does drink heavily until 2-3 weeks ago, up to 2 pints per day. Per primary, EKGs reviewed and no ST changes. ([employer]) PFSH Past Medical History HTN COPD A. fib Alcohol abuse Alcohol withdrawal with seizures BBB Past Surgical History Hernia repair repair multiple fractures from hockey, judo ([employer]) Coded Allergies: Keflex (Verified Allergy, Severe, hives, 12/31/16) Penicillin (Verified Allergy, Severe, hives, 12/31/16) Sulfa (Verified Allergy, Severe, hives, 12/31/16) Nitroglycerin (Verified Allergy, Mild, 12/31/16) vomit Family History No family history of DM, HTN Social History Current alcohol use 1-2 pints vodka daily Denies tobacco use, former smoker 1 pack per day quit more than a year ago Denies illicit drug use ([employer]) Review of Systems Constitutional: DENIES: Fever Eyes: DENIES: Blurred vision Ears, nose, mouth, throat: DENIES: Hearing loss Respiratory: DENIES: Cough Cardiovascular: DENIES: Chest pain Gastrointestinal: COMPLAINS OF: Abdominal pain, Nausea, Vomiting, DENIES: Black stools, Bloody stools, Constipation, Diarrhea, Hematemesis Genitourinary: DENIES: Hematuria Musculoskeletal: DENIES: Muscle aches Integumentary: DENIES: Abnormal pigmentation Neurologic: DENIES: Abnormal gait Psychiatric: DENIES: Confusion ([employer]) GI Exam Vitals I&O Vital Signs Date Time Temp Pulse Resp B/P Pulse Ox O2 Delivery O2 Flow Rate FiO2 01/15/17 12:31 97.9 66 18 163/93 97 01/15/17 08:01 97.9 73 18 143/78 94 01/15/17 08:00 69 01/15/17 08:00 Room Air 01/15/17 04:00 97.2 72 18 155/98 96 01/15/17 00:00 97.5 79 20 133/77 92 01/14/17 20:52 Room Air 01/14/17 20:00 97.8 94 18 124/72 98 01/14/17 16:00 97.8 96 20 143/94 96 I/O 01/14/17 01/14/17 01/14/17 01/15/17 01/15/17 01/15/17 07:00 15:00 23:00 07:00 15:00 23:00 Intake Total 360 ml 240 ml 240 ml Output Total 100 ml Balance 260 ml 240 ml 240 ml Intake Oral 360 ml 240 ml 240 ml Output Urine Total 100 ml # Voids 0 4 2 # Bowel Movements 0 1 0 0 Laboratory Test 01/15/17 05:21 Sodium Level 139 MEQ/L Potassium Level 3.3 MEQ/L Chloride Level 104 MEQ/L Carbon Dioxide Level 25.7 MEQ/L Anion Gap 9 MEQ/L Blood Urea Nitrogen 16 MG/DL Creatinine 0.66 MG/DL Estimat Glomerular Filtration 122 ML/MIN Rate Random Glucose 111 MG/DL Calcium Level 8.6 MG/DL Phosphorus Level 3.1 MG/DL Magnesium Level 1.8 MG/DL Physical Examination HEENT:EOMI; normocephalic; atraumatic; no jaundice. CHEST: diminished CARDIAC: RRR ABDOMEN: Soft, nondistended, mild TTP epigastric area, no hepatosplenomegaly; bowel sounds are present in all four quadrants. EXTREMITIES: No clubbing, cyanosis, or edema. SKIN: Normal; no rash; no jaundice. 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 ([employer]) Assessment and Plan Plan ASSESSMENT - epigastric pain, n/v - unclear etiology. Hx ETOH abuse, ETOH [address] - n/v - unclear etiology. PLAN - CT abd - will check lipase - further recommendations to follow after results above This pt seen by myself and Dr Jerome and this note is written on his behalf ( [employer]) Physician Comments Seen and examined, plan as above. Further recommendations to follow pending CT findings. (Ervin Jerome MD) [employer] Jan 15, 2017 15:31 Ervin Jerome MD Jan 15, 2017 22:13
[2017-01-15] MEDS ORDERED: DIATRIZOATE MEGLUM/DIATRIZOATE SOD 9 ML CUP PO ONE (16:00)
[2017-01-15] MEDS ORDERED: IOHEXOL 350 MG/ML 10 ML VIAL (for RAD DIAG) IV ONE (19:58)
--- NOTE | 2017-01-15 20:53 | RADRPT ---
EXAM DATE/TIME: 01/15/2017 19:53 [facility] COMPARISON: CT ABDOMEN & PELVIS W CONTRAST, January 21, 2015, 21:18. INDICATIONS : Epigastric pain . IV CONTRAST: 65 cc Omnipaque 350 (iohexol) IV ORAL CONTRAST: Prescribed oral contrast ingested. RADIATION DOSE: 15.27 CTDIvol (mGy) MEDICAL HISTORY : Cardiovascular disease. Seizures. Hypertension. SURGICAL HISTORY : None. ENCOUNTER: Initial ACUITY: 2 days PAIN SCALE: 6/10 LOCATION: epigastric TECHNIQUE: Volumetric scanning of the abdomen and pelvis was performed. Using automated exposure control and ad justment of the mA and/or kV according to patient size, radiation dose was kept as low as reasonably achievable to obtain optimal diagnostic quality images. FINDINGS: Scattered hepatic cysts are again noted. Gallbladder within normal limits. Spleen, pancreas and adren al glands are normal. 14 mm left upper pole and 9 mm right mid zone renal cysts are seen. No stones o r evidence of obstructive uropathy. No obstruction or acute inflammatory changes are seen of the gastrointestinal tract. There is moderat e diverticulosis of the left side of the colon without perceptible acute inflammatory changes. The ap pendix is well-visualized, normal. Tortuosity and mild atherosclerosis seen of the abdominal aorta. Severe degenerative disc disease again seen in the lumbar spine. There is a stable benign-appearing l ucency measuring approximately 18 mm in size of the L5 vertebral body. CONCLUSION: 1. No acute inflammatory changes are demonstrated. 2. Unchanged hepatic and bilateral renal cysts. 3. Left side colon diverticulosis without diverticulitis. Jung Cooley MD on January 15, 2017 at 20:48 Board Certified Radiologist. This report was verified electronically.
[2017-01-16] VITALS (7 sets, daily range): BP systolic 126–177; BP diastolic 83–118; PULSE 64–95; RESP 18–20; TEMP 97.3–98.6; O2SAT 96–97
[2017-01-16] MEDS: LORazepam 1 MG TAB PO PRN ×3 (00:27→16:03)
[2017-01-16] MEDS: ACETAMINOPHEN 500 MG CPLT PO PRN ×3 (00:27→21:19)
[2017-01-16] MEDS: chlordiazePOXIDE 25 MG CAP PO SCH ×4 (02:58→22:33)
[2017-01-16] MEDS: SUCRALFATE 1 GM TAB PO SCH ×2 (06:17→16:00)
[2017-01-16 07:57] LABS: AUTOMATED NEUTROPHIL # 3.5 TH/MM3 (1.8-7.7); BASOPHIL # 0.1 TH/MM3 (0-0.2); EOSINOPHIL # 0.2 TH/MM3 (0-0.4); HEMATOCRIT 41.9 % (39.0-51.0); HEMO FLAGS DIFF FINAL; LYMPH % 19.3 % (9.0-44.0); LYMPHOCYTE # 1.1 TH/MM3 (1.0-4.8); MEAN CELL VOLUME 97.9 FL (80.0-100.0); MEAN CORPUSCULAR HEMOGLOBIN 34.2 PG (27.0-34.0); MEAN CORPUSCULAR HGB CONC 34.9 % (32.0-36.0); MONO % 13.3 % (0.0-8.0); NEUT % 63.4 % (16.0-70.0); PLATELET COUNT 121 TH/MM3 (150-450); RED BLOOD COUNT 4.28 MIL/MM3 (4.50-5.90); RED CELL DISTRIBUTION WIDTH 15.7 % (11.6-17.2); WHITE BLOOD COUNT 5.5 TH/MM3 (4.0-11.0)
[2017-01-16 08:25] LABS: MAGNESIUM 1.8 MG/DL (1.5-2.5); POTASSIUM 3.3 MEQ/L (3.5-5.1)
[2017-01-16] MEDS: FOLIC ACID 1 MG TAB PO SCH (11:14)
[2017-01-16] MEDS: METOPROLOL TARTRATE 50 MG TAB PO SCH ×2 (11:14→21:12)
[2017-01-16] MEDS: SODIUM CHLORIDE 0.9% FLUSH 10 ML FLUSH IV FLUSH SCH ×2 (11:14→21:13)
[2017-01-16] MEDS: LISINOPRIL 20 MG TAB PO SCH (11:14)
[2017-01-16] MEDS: MULTIVITAMINS/MINERALS THERAPEUTIC TAB PO SCH (11:15)
[2017-01-16] MEDS: PANTOPRAZOLE SOD 40 MG DELAYED RELEASE TAB PO SCH (11:15)
[2017-01-16] MEDS: THIAMINE HCL 100 MG TAB PO SCH (11:15)
[2017-01-16] MEDS: ENOXAPARIN SODIUM 40 MG/0.4 ML SYRINGE SQ SCH (13:30)
--- NOTE | 2017-01-16 15:03 | HHI.PR ---
Subjective Remarks Seen earlier today. Patient in bed, says he is sleepy. Says he has less pain in his stomach but not much improved. Not eating much. No fever or chills. Feels less anxious. Objective Vitals Vital Signs Date Time Temp Pulse Resp B/P Pulse Ox O2 Delivery O2 Flow Rate FiO2 01/16/17 12:02 97.5 95 18 148/93 97 01/16/17 11:15 Room Air 01/16/17 08:02 97.4 64 18 151/106 97 01/16/17 05:44 97.3 66 20 126/83 97 01/16/17 02:15 18 01/16/17 01:10 78 01/16/17 00:00 Room Air 01/16/17 00:00 97.8 80 20 151/118 97 01/15/17 21:05 Room Air 01/15/17 20:00 97.8 86 20 171/105 99 01/15/17 16:02 98.3 81 20 145/91 96 I/O 01/15/17 01/15/17 01/15/17 01/16/17 01/16/17 01/16/17 07:00 15:00 23:00 07:00 15:00 23:00 Intake Total 240 ml 600 ml 242 ml 120 ml Balance 240 ml 600 ml 242 ml 120 ml Intake Oral 240 ml 600 ml 240 ml 120 ml IV Total 2 ml 0 ml # Voids 2 3 1 1 # Bowel Movements 0 1 0 0 Result Diagram: 01/16/17 0724 01/16/17 0724 Imaging Last Impressions Abdomen/Pelvis CT 01/15/17 0000 Signed Impressions: Service Date/Time: Sunday, January 15, 2017 19:53 - CONCLUSION: 1. No acute inflammatory changes are demonstrated. 2. Unchanged hepatic and bilateral renal cysts. 3. Left side colon diverticulosis without diverticulitis. Jung Cooley MD Objective Remarks GENERAL: This is a dishevelled, well developed patient, in no apparent distress. SKIN: Warm and dry. Sun burnt skin. HEAD: Atraumatic. Normocephalic. No temporal or scalp tenderness. CARDIOVASCULAR: Regular rate and rhythm without murmurs, gallops, or rubs. RESPIRATORY: Diminished bases. No wheezes, rales, or rhonchi. GASTROINTESTINAL: Abdomen soft,mild epigastric tenderness, nondistended. No hepato-splenomegaly, or palpable masses. No guarding. MUSCULOSKELETAL: Extremities without clubbing, cyanosis, or edema. No joint tenderness, effusion, or edema noted. NEUROLOGICAL: Awake and alert. Motor and sensory grossly within normal limits. Normal speech. A/P Problem List: (1) Alcohol intoxication ICD Code: F10.929 Status: Acute (2) Atypical chest pain ICD Code: R07.89 Status: Acute (3) HTN (hypertension) ICD Code: I10 Status: Chronic Assessment and Plan Patient is a 61-year-old male with primary medical history of HTN, A. fib, anxiety, depression, EtOH, CHF, seizure from alcohol withdrawal who came in to the hospital under act by the police department. Patient was found intoxicated and was unable to care for himself. Patient had multiple readmissions to the hospital secondary to EtOH abuse, intoxication. Alcohol intoxication Alcohol withdrawals Seizure with withdrawals - Alcohol level 222 - CIWA protocol - Seizure precaution, neurochecks - Multivitamin, folic acid and thiamine daily - Pantoprazole 40 mg - Psychiatry consult. Evaluate patient continues to have EtOH abuse. Seen by psych recommends DC CIWA and start taper librium 50 mg q4 hrs. F/u as OP, 12 step program as patient had success in the past , SAAFE . CM- ETOH following Atypical chest pain, patient has mostly epigastric pain radiating to the chest , GERD now worsened with EtOH use GERD Epigatric pain and nausea persistent. Continue pantoprazole , add carafate. Consult GI for further evaluation. - CT abd. reviewed , with diverticulosis no diverticulitis. - Lipase is normal. - EKG reviewed by me and compared to previous EKGs sinus rhythm, no significant ST changes HR 86 - Pantoprazole 40 mg - Tylenol when necessary for pain or fever Hypertension, accelerated - Possibly related to alcohol abuse. - Clonidine 0.1mg Q6hrs PRN - Start on home meds lisinopril 20mg day - increased to 40 mg daily if continues to be uncontrolled, Norvasc 10 mg daily, metoprolol 50 mg every 12 hours - Monitor BP trend DVT prop Lovenox Code Status Full code Discussed Condition With Patient, nurse Problem Qualifiers (1) Alcohol intoxication: Qualified Code: F10.920 - Alcohol intoxication, uncomplicated Carlota Story MD Jan 16, 2017 15:03
[2017-01-17] VITALS: BP 142/84; PULSE 73; RESP 16; TEMP 97.7; O2SAT 95
[2017-01-17] MEDS: LORazepam 1 MG TAB PO PRN (01:04)
[2017-01-17 02:22] VITALS: PULSE 103
[2017-01-17 04:00] VITALS: BP 162/113; PULSE 69; RESP 18; TEMP 97.5; O2SAT 97
[2017-01-17] MEDS: chlordiazePOXIDE 25 MG CAP PO SCH (04:46)
[2017-01-17] MEDS: SUCRALFATE 1 GM TAB PO SCH (06:35)
[2017-01-17 07:45] LABS: BICARBONATE 25.7 MEQ/L (21.0-32.0); POTASSIUM 3.8 MEQ/L (3.5-5.1)
[2017-01-17 08:01] VITALS: BP 152/96; PULSE 62; RESP 20; TEMP 97.7; O2SAT 95
[2017-01-17] MEDS: METOPROLOL TARTRATE 50 MG TAB PO SCH (08:18)
[2017-01-17] MEDS: THIAMINE HCL 100 MG TAB PO SCH (08:18)
[2017-01-17] MEDS: FOLIC ACID 1 MG TAB PO SCH (08:18)
[2017-01-17] MEDS: PANTOPRAZOLE SOD 40 MG DELAYED RELEASE TAB PO SCH (08:18)
[2017-01-17] MEDS: LISINOPRIL 20 MG TAB PO SCH (08:18)
[2017-01-17] MEDS: SODIUM CHLORIDE 0.9% FLUSH 10 ML FLUSH IV FLUSH SCH (08:18)
[2017-01-17] MEDS: MULTIVITAMINS/MINERALS THERAPEUTIC TAB PO SCH (08:18)
[2017-01-17 08:24] VITALS: PULSE 60
[2017-01-17] MEDS ORDERED: CHLO10CA5 PO ×3 (09:54)
[2017-01-17] MEDS ORDERED: CHLO5CAP4 PO ×2 (09:54)
[2017-01-17] MEDS ORDERED: CHLO25CA9 PO (09:54)
--- NOTE | 2017-01-17 09:56 | HHI.DS ---
Discharge Summary Admission Date Jan 12, 2017 at 11:54 Discharge Date: Jan 17, 2017 Admitting Diagnosis Alcohol Withdrawal (1) Alcohol intoxication ICD Code: F10.929 Diagnosis: Principal (2) Atypical chest pain ICD Code: R07.89 Diagnosis: Principal (3) HTN (hypertension) ICD Code: I10 Diagnosis: Principal Procedures none Brief History - From Admission Patient is a 61-year-old male with primary medical history of HTN, A. fib, anxiety, depression, EtOH, CHF, seizure from alcohol withdrawal who came in to the hospital under [place] act by the police department. Patient was found intoxicated and was unable to care for himself. Patient had multiple readmissions to the hospital secondary to EtOH abuse, intoxication. Last admission 12/31/16 chest pain, 12/15/16 for syncopal episode related to alcohol intoxication. Patient seen and examined today. Reports he just "passed out" due to drinking alcohol. Reports he continued to drink 1-2 pints of vodka every day. He plans to stop stating " I need to quit because I am killing myself." Denies any SI/HI. Also complained of chest pain left side between stomach and rib cage area. Reproducible by palpation. Pain is rated 5/10 doesn 't radiate anywhere. States he had this chest pain also in the past, associated with burning sensation in the sternal area. He also complains of nausea and headaches. Reports he had episode of seizures with alcohol withdrawal but not recently. Denies SOB/ dyspnea. Denies chest pain, palpitations. Denies fevers, chills, diarrhea. Denies hematuria, dysuria. CBC/BMP: 01/16/17 0724 01/17/17 0609 Significant Findings Laboratory Tests Test 01/15/17 01/16/17 01/17/17 05:21 07:24 06:09 Potassium Level 3.3 MEQ/L 3.3 MEQ/L (3.5-5.1) (3.5-5.1) Random Glucose 111 MG/DL 115 MG/DL (74-106) (74-106) Red Blood Count 4.28 MIL/MM3 (4.50-5.90) Mean Corpuscular Hemoglobin 34.2 PG (27.0-34.0) Platelet Count 121 TH/MM3 (150-450) Monocytes (%) (Auto) 13.3 % (0.0-8.0) Calcium Level 8.3 MG/DL 8.2 MG/DL (8.5-10.1) (8.5-10.1) Imaging Last Impressions Elbow X-Ray 01/17/17 0000 Signed Impressions: Service Date/Time: Tuesday, January 17, 2017 13:56 - CONCLUSION: Degenerative changes. No definite fracture identified. Jai Tang MD Abdomen/Pelvis CT 01/15/17 Signed Impressions: Service Date/Time: Sunday, January 15, 2017 19:53 - CONCLUSION: 1. No acute inflammatory changes are demonstrated. 2. Unchanged hepatic and bilateral renal cysts. 3. Left side colon diverticulosis without diverticulitis. Jung Cooley MD PE at Discharge GENERAL: This is a dishevelled, well developed patient, in no apparent distress. SKIN: Warm and dry. Sun burnt skin. HEAD: Atraumatic. Normocephalic. No temporal or scalp tenderness. CARDIOVASCULAR: Regular rate and rhythm without murmurs, gallops, or rubs. RESPIRATORY: Diminished bases. No wheezes, rales, or rhonchi. GASTROINTESTINAL: Abdomen soft,mild epigastric tenderness, nondistended. No hepato-splenomegaly, or palpable masses. No guarding. MUSCULOSKELETAL: Extremities without clubbing, cyanosis, or edema. No joint tenderness, effusion, or edema noted. NEUROLOGICAL: Awake and alert. Motor and sensory grossly within normal limits. Normal speech. Hospital Course Patient is a 61-year-old male with primary medical history of HTN, A. fib, anxiety, depression, EtOH, CHF, seizure from alcohol withdrawal who came in to the hospital under act by the police department. Patient was found intoxicated and was unable to care for himself. Patient had multiple readmissions to the hospital secondary to EtOH abuse, intoxication. Alcohol intoxication Alcohol withdrawals Seizure with withdrawals - Alcohol level 222 - [facility] protocol - Seizure precaution, neurochecks - Multivitamin, folic acid and thiamine daily - Pantoprazole 40 mg - Psychiatry consult. Evaluate patient continues to have EtOH abuse. Seen by psych recommends S[facility] ORMEWA and start taper librium 50 mg q4 hrs. F/u as OP, 12 step program as patient had success in the past , ZEINA . CM- ETOH consulted. Atypical chest pain, patient has mostly epigastric pain radiating to the chest , GERD now worsened with EtOH use GERD Epigastric pain and nausea. Continue pantoprazole , added carafate. Consult GI for further evaluation. CT abd with diverticulosis. Dietary changes. To follow up as OP with GI. - CT abd. reviewed , with diverticulosis no diverticulitis. - Lipase is normal. - EKG reviewed by me and compared to previous EKGs sinus rhythm, no significant ST changes HR 86 - Pantoprazole 40 mg - Tylenol when necessary for pain or fever Patient says fell in the room 6 and hit his left elbow and with complaint of pain. X ray reviewed and no fracture, there are some degenerative changes. Pain med as need. Follow up wit PCP. Hypertension, accelerated - Possibly related to alcohol abuse. - Clonidine 0.1mg Q6hrs PRN - lisinopril 40 mg daily, Norvasc 10 mg daily, metoprolol 50 mg every 12 hours - Monitor BP trend DVT prop Lovenox Code Status Full code Discussed Condition With Patient, nurse Patient is a difficult DC, also per last admission difficult DC and also was diagnosed with malingering. DC home in stable condition. To follow up as OP with PCP and consultants. Pt Condition on Discharge: Stable Discharge Disposition: Discharge Home Discharge Time: > 30 minutes Discharge Instructions DIET: Follow Instructions for: Heart Healthy Diet Activities you can perform: Regular-No Restrictions Follow up Referrals: Gastroenterology - 2 Weeks PCP Follow-up New Medications: Chlordiazepoxide HCl (Chlordiazepoxide HCl) 25 Mg Capsule 25 MG PO Q8H etoh withdrawals #3 CAP Chlordiazepoxide HCl (Chlordiazepoxide HCl) 10 Mg Capsule 10 MG PO Q6H alcohol withdrawal #4 CAP Chlordiazepoxide HCl (Chlordiazepoxide HCl) 10 Mg Capsule 10 MG PO Q8H Alcohol Detox #3 CAP Chlordiazepoxide HCl (Chlordiazepoxide HCl) 10 Mg Capsule 10 MG PO Q12H Alcohol Detox #2 CAP Chlordiazepoxide HCl (Chlordiazepoxide HCl) 5 Mg Capsule 5 MG PO Q12H Alcohol Detox #2 CAP Chlordiazepoxide HCl (Chlordiazepoxide HCl) 5 Mg Capsule 5 MG PO ONCE Alcohol Detox #1 CAP Folic Acid (Folic Acid) 1 Mg Tablet 1 MG PO DAILY mvt #30 TAB Pantoprazole (Pantoprazole) 40 Mg Tab 40 MG PO DAILY gerd #30 TAB Sucralfate (Carafate) 1 Gm Tab 1 GM PO BIDAC gerd #30 TAB Thiamine HCl (Gnp Vitamin B-1) 100 Mg Tab 100 MG PO DAILY mvt #30 TAB Continued Medications: Amlodipine (Norvasc) 10 Mg Tab 10 MG PO DAILY hypertension #30 Ref [address] (Aspirin EC) 81 Mg Tabdr 81 MG PO DAILY atrial fibrillation #30 Ref 0 TAB Lisinopril (Lisinopril) 20 Mg Tab 40 MG PO DAILY hypertension #30 Ref 0 TAB Metoprolol Tartrate (Lopressor) 50 Mg Tab 50 MG PO Q12HR hypertension #60 Ref 0 TAB Carlota Story MD Jan 17, 2017 09:56
[2017-01-17] MEDS ORDERED: CARA1TAB6 PO (09:59)
[2017-01-17] MEDS ORDERED: PANT40TA3 PO (09:59)
[2017-01-17] MEDS ORDERED: GNP100TA3 PO (09:59)
[2017-01-17] MEDS ORDERED: FOLI1TAB6 PO (09:59)
[2017-01-17] MEDS ORDERED: chlordiazePOXIDE 25 MG CAP PO SCH (11:00)
--- NOTE | 2017-01-17 11:42 | HHI.PR ---
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 Says he has less pain and nasuea, he is able to eat. No n/v/ d/c. Discussed regarding DC plan. Patient agrees. Patient then says he fell and he did hit his left elbow and now he is complaining of pain. Will do X ray and if normal patient can be Dc home. Per previous admissions patient with the same behavior at discharge time, was diagnosed with malingering as well. Objective Vitals Vital Signs Date Time Temp Pulse Resp B/P Pulse Ox O2 Delivery O2 Flow Rate FiO2 01/17/17 08:24 60 01/17/17 08:24 Room Air 01/17/17 08:01 97.7 62 20 152/96 95 01/17/17 04:00 97.5 69 18 162/113 97 01/17/17 02:22 103 01/17/17 00:00 97.7 73 16 142/84 95 01/16/17 21:15 Room Air 01/16/17 20:00 97.6 92 18 177/115 97 01/16/17 16:07 98.6 90 20 169/101 96 01/16/17 12:02 97.5 95 18 148/93 97 I/O 01/16/17 01/16/17 01/16/17 01/17/17 01/17/17 01/17/17 07:00 15:00 23:00 07:00 15:00 23:00 Intake Total 120 ml 600 ml 360 ml 240 ml Balance 120 ml 600 ml 360 ml 240 ml Intake Oral 120 ml 600 ml 360 ml 240 ml IV Total 0 ml 0 ml # Voids 1 3 2 2 # Bowel Movements 0 1 0 0 Result Diagram: 01/16/17 0724 01/17/17 0609 Imaging Last Impressions Abdomen/Pelvis CT 01/15/17 0000 Signed Impressions: Service Date/Time: Sunday, January 15, 2017 19:53 - CONCLUSION: 1. No acute inflammatory changes are demonstrated. 2. Unchanged hepatic and bilateral renal cysts. 3. Left side colon diverticulosis without diverticulitis. Jung Cooley MD Objective Remarks GENERAL: This is a dishevelled, well developed patient, in no apparent distress. SKIN: Warm and dry. Sun burnt skin. HEAD: Atraumatic. Normocephalic. No temporal or scalp tenderness. CARDIOVASCULAR: Regular rate and rhythm without murmurs, gallops, or rubs. RESPIRATORY: Diminished bases. No wheezes, rales, or rhonchi. GASTROINTESTINAL: Abdomen soft,mild epigastric tenderness, nondistended. No hepato-splenomegaly, or palpable masses. No guarding. MUSCULOSKELETAL: Extremities without clubbing, cyanosis, or edema. No joint tenderness, effusion, or edema noted. NEUROLOGICAL: Awake and alert. Motor and sensory grossly within normal limits. Normal speech. A/P Problem List: (1) Alcohol intoxication ICD Code: F10.929 Status: Acute (2) Atypical chest pain ICD Code: R07.89 Status: Acute (3) HTN (hypertension) ICD Code: I10 Status: Chronic Assessment and Plan Patient is a 61-year-old male with primary medical history of HTN, A. fib, anxiety, depression, EtOH, CHF, seizure from alcohol withdrawal who came in to the hospital under act by the police department. Patient was found intoxicated and was unable to care for himself. Patient had multiple readmissions to the hospital secondary to EtOH abuse, intoxication. Alcohol intoxication Alcohol withdrawals Seizure with withdrawals - Alcohol level 222 - CIWA protocol - Seizure precaution, neurochecks - Multivitamin, folic acid and thiamine daily - Pantoprazole 40 mg - Psychiatry consult. Evaluate patient continues to have EtOH abuse. Seen by psych recommends DC CIWA and start taper librium 50 mg q4 hrs. F/u as OP, 12 step program as patient had success in the past , SAAFE . CM- ETOH following Atypical chest pain, patient has mostly epigastric pain radiating to the chest , GERD now worsened with EtOH use GERD Epigatric pain and nausea persistent. Continue pantoprazole , added carafate. Consult GI for further evaluation. - CT abd. reviewed , with diverticulosis no diverticulitis. - Lipase is normal. - EKG reviewed by me and compared to previous EKGs sinus rhythm, no significant ST changes HR 86 - Pantoprazole 40 mg - Tylenol when necessary for pain or fever Patient says fell in the room 6/7 and hit his left elbow and compalints of pain. Will do X ray if normal can DC home. Per previous admissions patient with the same behavior at discharge time, was diagnosed with malingering as well. Hypertension, accelerated - Possibly related to alcohol abuse. - Clonidine 0.1mg Q6hrs PRN - Start on home meds lisinopril 20mg day - increased to 40 mg daily if continues to be uncontrolled, Norvasc 10 mg daily, metoprolol 50 mg every 12 hours - Monitor BP trend DVT prop Lovenox Code Status Full code Discussed Condition With Patient, nurse DC plan : poss DC today if Xray left elbow is normal. Patient is a difficult DC , also per last admission difficult DC and also was diagnosed with malingering. Problem Qualifiers (1) Alcohol intoxication: Qualified Code: F10.920 - Alcohol intoxication, uncomplicated Carlota Story MD Jan 17, 2017 11:42
[2017-01-17 12:01] VITALS: BP 171/91; PULSE 73; RESP 20; TEMP 97.9; O2SAT 95
[2017-01-17] MEDS: ACETAMINOPHEN 500 MG CPLT PO PRN (12:06)
--- NOTE | 2017-01-17 15:15 | RADRPT ---
EXAM DATE/TIME: 01/17/2017 13:56 [facility] COMPARISON: CHEST SINGLE AP, December 30, 2016, 23:01. INDICATIONS : Patient fell yesterday. MEDICAL HISTORY : Congestive heart failure. Hypertension. Chronic obstructive pulmonary SURGICAL HISTORY : None. ENCOUNTER: Subsequent ACUITY: 4 - 6 days PAIN SCORE: 10/10 LOCATION: Left Elbow. FINDINGS: The examination demonstrates moderate degenerative changes within the elbow joint. No significant milton nt effusion is identified. No definite fracture is seen. CONCLUSION: Degenerative changes. No definite fracture identified. Jai Tang MD on January 17, 2017 at 15:12 Board Certified Radiologist. This report was verified electronically.
== END 2017-01-17 16:43 | disposition home or self-care (01) | DRG 897 ==
LOC: NEPD 02:26 → NEDA 11:54 → N04A 13:54
PROVIDERS: ADMIT Hospitalist; ATTEND Hospitalist
DX: F10.239 Alcohol dependence with withdrawal, unspecified (principal); F10.220 Alcohol dependence with intoxication, uncomplicated; Y90.7 Blood alcohol level of 200-239 mg/100 ml; J44.9 Chronic obstructive pulmonary disease, unspecified; I10 Essential (primary) hypertension; R07.89 Other chest pain; F32.9 Major depressive disorder, single episode, unspecified; F41.9 Anxiety disorder, unspecified; K21.9 Gastro-esophageal reflux disease without esophagitis; K57.90 Diverticulosis of intestine, part unspecified, without perforation or abscess without bleeding; M25.522 Pain in left elbow; W19.XXXA Unspecified fall, initial encounter; Y92.230 Patient room in hospital as the place of occurrence of the external cause; Z87.891 Personal history of nicotine dependence
CPT/HCPCS: 73070; 74177; 80048; 80053; 80307; 82948; 83690; 83735; 84100; 85025; 93005; 96374; C9113; J1650; J2060; J2270; J2405; Q9963; Q9967

== ENCOUNTER 2017-02-01 02:09 | Inpatient (IN) | payer MEDICAID ==
[2017-02-01] VITALS (20 sets, daily range): BP systolic 110–154; BP diastolic 64–100; PULSE 85–152; RESP 16–33; TEMP 97.4–98.6; O2SAT 92–98
[~2017-02-01] VITALS: Ht 188 cm; Wt 87.3 kg
[~2017-02-01 02:09] MED LIST changes: +CARA1TAB6 PO; +CHLO10CA5 PO; +CHLO25CA9 PO; +CHLO5CAP4 PO; +FOLI1TAB6 PO; +GNP100TA3 PO; +PANT40TA3 PO
[2017-02-01] MEDS ORDERED: DILTIAZEM HCL 25 MG/5 ML VIAL IV ONE ×2 (02:30→03:00)
[2017-02-01] MEDS ORDERED: SODIUM CHLOR 0.9% 1000 ML INJ 1,000 ML IV ONE (02:30)
--- NOTE | 2017-02-01 02:36 | PD ---
HPI Chief Complaint: Syncope/Near-Syncope Time Seen by Provider: 02:16 Travel History International Travel<30 days: No Contact w/Intl Traveler<30days: No Traveled to known affect area: No History of Present Illness HPI This patient is a local alcoholic who has history of A. fib. She had been drinking today. He was wandering around there at [facility] ([facility]) and he was stumbling about. Paramedics were called by bystanders. He was found to be in A. fib with RVR with rate of 160. He denies chest pain. No injury. Severity is moderate. No alleviating factors. Duration one day PFSH Past Medical History Hx Anticoagulant Therapy: Yes (DVT-ASA) Arthritis: Yes (bursitis tendonitis) Asthma: No Atrial Fibrillation: Yes Autoimmune Disease: No Blood Disorders: No Anxiety: Yes Depression: Yes Heart Rhythm Problems: Yes (LBBB, afib RVR) Cancer: No Cardiac Catheterization: No Cardiovascular Problems: Yes (A FIB RVR, CHF, HTN left bundle branch) High Cholesterol: No Chest Pain: Yes Congestive Heart Failure: Yes COPD: Yes Cerebrovascular Accident: No Diabetes: No Diminished Hearing: No Endocrine: No Gastrointestinal Disorders: No Genitourinary: Yes (not urinating "a lot") Headaches: No Hypertension: Yes Immune Disorder: No Implanted Vascular Access Dvce: No Kidney Stones: Yes Musculoskeletal: Yes (many broken bones in the past) Neurologic: Yes (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) Psychiatric: No Reproductive: No Respiratory: Yes (COPD) Immunizations Current: Yes Migraines: No Seizures: Yes Shingles: Yes Sleep Apnea: No Ulcer: No Tetanus Vaccination: < 5 Years Influenza Vaccination: No Past Surgical History Abdominal Surgery: Yes (HERNIA REPAIR) Cardiac Surgery: No Coronary Artery Bypass Graft: No Ear Surgery: No Endocrine Surgery: No Eye Surgery: No Genitourinary Surgery: No Gynecologic Surgery: No Neurologic Surgery: No Oral Surgery: No Thoracic Surgery: No Tonsillectomy: Yes Other Surgery: Yes Family History Family Myocardial Infarction: Yes (maternal) Social History Alcohol Use: Yes (1-2 PINTS DAILY VODKA) Tobacco Use: No Substance Use: No Allergies-Medications (Allergen,Severity, Reaction): Coded Allergies: Keflex (Verified Allergy, Severe, hives, 02/01/17) Penicillin (Verified Allergy, Severe, hives, 02/01/17) Sulfa (Verified Allergy, Severe, hives, 02/01/17) Nitroglycerin (Verified Allergy, Mild, 02/01/17) vomit Reported Meds & Prescriptions Reported Meds & Active Scripts Active Lisinopril 20 Mg Tab 40 Mg PO DAILY Norvasc (Amlodipine Besylate) 10 Mg Tab 10 Mg PO DAILY Aspirin EC (Aspirin) 81 Mg Tabdr 81 Mg PO DAILY Review of Systems General / Constitutional: No: Fever Eyes: No: Visual changes HENT: No: Headaches Cardiovascular: Positive: Irregular Rhythm, Tachycardia, Edema, No: Chest Pain or Discomfort Respiratory: No: Shortness of Breath Gastrointestinal: No: Abdominal Pain Genitourinary: No: Dysuria Musculoskeletal: Positive: Edema, No: Pain Skin: No Rash Neurologic: No: Weakness Psychiatric: Positive: Substance Abuse, No: Depression Endocrine: No: Polydipsia Hematologic/Lymphatic: No: Easy Bruising Physical Exam Narrative GENERAL: Well-nourished, well-developed patient in no apparent distress. SKIN: Focused skin assessment reveals no rash and nodules. Skin is Warm and dry. HEAD: Atraumatic. Normocephalic. EYES: Pupils equal and round. No scleral icterus. No injection or drainage. ENT: No nasal bleeding or discharge. Mucous membranes pink and moist. NECK: Trachea midline. No JVD. CARDIOVASCULAR: Irregularly irregular rhythm. No murmur appreciated. rate of 160 RESPIRATORY: No accessory muscle use. Clear to auscultation. Breath sounds equal bilaterally. GASTROINTESTINAL: Abdomen soft, non-tender, nondistended. Hepatic and splenic margins not palpable. MUSCULOSKELETAL: No obvious deformities. No clubbing. No cyanosis. Symmetric edema the feet and ankles NeUROLOGICAL: Awake and alert. No obvious cranial nerve deficits. Motor grossly within normal limits. Normal speech. PSYCHIATRIC: Appropriate mood and affect; insight and judgment poor . Data Data Last Documented VS Vital Signs Date Time Temp Pulse Resp B/P Pulse Ox O2 Delivery O2 Flow Rate FiO2 02/01/17 03:14 119 154/72 02/01/17 03:09 20 98 Nasal Cannula 2 02/01/17 02:14 98.6 Orders Iv Access Insert/Monitor (02/01/17 02:25) Complete Blood Count With Diff (02/01/17 02:25) Basic Metabolic Panel (Bmp) (02/01/17 02:25) Prothrombin Time / Inr (Pt) (02/01/17 02:25) Act Partial Throm Time (Ptt) (02/01/17 02:25) Alcohol (Ethanol) (02/01/17 02:25) Electrocardiogram (02/01/17 ) Hammer Fitter / Telemetry WONG.Q8H (02/01/17 02:25) Sodium Chlor 0.9% 1000 Ml Inj (Ns 1000 M (02/01/17 02:30) Diltiazem Inj (Cardizem Inj) (02/01/17 02:30) Diltiazem Inj (Cardizem Inj) (02/01/17 03:00) Protein Corrected Calcium(Pcc) (02/01/17 02:30) Admit Order (Ed Use Only) (02/01/17 03:21) Labs Laboratory Tests Test 02/01/17 02:30 White Blood Count 5.4 TH/MM3 Red Blood Count 3.83 MIL/MM3 Hemoglobin 13.4 GM/DL Hematocrit 38.8 % Mean Corpuscular Volume 101.2 FL Mean Corpuscular Hemoglobin 35.0 PG Mean Corpuscular Hemoglobin 34.6 % Concent Red Cell Distribution Width 15.8 % Platelet Count 195 TH/MM3 Mean Platelet Volume 7.5 FL Neutrophils (%) (Auto) 48.8 % Lymphocytes (%) (Auto) 33.1 % Monocytes (%) (Auto) 12.9 % Eosinophils (%) (Auto) 4.1 % Basophils (%) (Auto) 1.1 % Neutrophils # (Auto) 2.6 TH/MM3 Lymphocytes # (Auto) 1.8 TH/MM3 Monocytes # (Auto) 0.7 TH/MM3 Eosinophils # (Auto) 0.2 TH/MM3 Basophils # (Auto) 0.1 TH/MM3 CBC Comment DIFF FINAL Differential Comment Prothrombin Time 11.2 SEC Prothromb Time International 1.0 RATIO Ratio Activated Partial 25.3 SEC Thromboplast Time Sodium Level 148 MEQ/L Potassium Level 3.3 MEQ/L Chloride Level 114 MEQ/L Carbon Dioxide Level 24.3 MEQ/L Anion Gap 10 MEQ/L Blood Urea Nitrogen 10 MG/DL Creatinine 0.64 MG/DL Estimat Glomerular Filtration 126 ML/MIN Rate Random Glucose 85 MG/DL Calcium Level 6.6 MG/DL Protein Corrected Calcium 7.4 MG/DL Total Protein 5.4 GM/DL Ethyl Alcohol Level 256 MG/DL [facility] Medical Decision Making Medical Screen Exam Complete: Yes Emergency Medical Condition: Yes Medical Record Reviewed: Yes Differential Diagnosis A. fib with RVR, alcohol intoxication, SVT Narrative Course I have reviewed the patient's electronic medical record. He is here frequently for A. fib problems and frequently for alcohol related issues I placed a right external jugular IV I gave him 20 mg IV Cardizem and 1 L normal saline IV bolus I reviewed his EKG which shows A. fib at a rate of 160 extended cardiac monitoring reveals A. fib with rapid rate CBC is normal except for elevated MCV as expected for his alcoholism Metabolic profile shows minor hyponatremia and minor hypokalemia Alcohol level is elevated at 256 showing acute intoxication Coagulation studies are normal Heart rate on recheck was 150 I gave him a second dose of 20 mg IV Cardizem Heart rate is now in the 120s and I'm instituting Cardizem drip for further rate control He is acutely intoxicated and not stable for outpatient follow-up with his A. fib with RVR requiring cardiac drip He will be admitted to [facility] Call has been placed to hospitalist to discuss Critical Care Narrative Aggregate critical care time was 36 minutes. Time to perform other separately billable procedures was not included in the critical care time. My time did not include minutes spent treating any other patients simultaneously or on activities that did not directly contribute to the patient's treatment. The services I provided to this patient were to treat and/or prevent clinically significant deterioration that could result in: Cardiopulmonary arrest, unstable cardiac arrhythmia, myocardial injury I provided critical care services requiring my management, as noted below: Chart data review, documentation time, medication orders and management, vital sign assessments/reviewing monitor data, ordering and reviewing lab tests, ordering and interpreting/reviewing x-rays and diagnostic studies, care of the patient and discussion of the patient with the admitting physicians. Diagnosis Primary Impression: Atrial fibrillation with RVR Additional Impression: Alcohol intoxication Qualified Code: F10.920 - Alcohol intoxication, uncomplicated Admitting Information Admitting Physician Requests: Admit Darius Fry MD Feb 01, 2017 02:36
[2017-02-01 02:46] LABS: AUTOMATED NEUTROPHIL # 2.6 TH/MM3 (1.8-7.7); BASOPHIL # 0.1 TH/MM3 (0-0.2); BASOPHIL % 1.1 % (0.0-2.0); EOSINOPHIL # 0.2 TH/MM3 (0-0.4); EOSINOPHIL % 4.1 % (0.0-4.0); HEMATOCRIT 38.8 % (39.0-51.0); HEMO FLAGS DIFF FINAL; LYMPH % 33.1 % (9.0-44.0); LYMPHOCYTE # 1.8 TH/MM3 (1.0-4.8); MEAN CELL VOLUME 101.2 FL (80.0-100.0); MEAN CORPUSCULAR HGB CONC 34.6 % (32.0-36.0); MONO % 12.9 % (0.0-8.0); NEUT % 48.8 % (16.0-70.0); PLATELET COUNT 195 TH/MM3 (150-450); RED BLOOD COUNT 3.83 MIL/MM3 (4.50-5.90); RED CELL DISTRIBUTION WIDTH 15.8 % (11.6-17.2); WHITE BLOOD COUNT 5.4 TH/MM3 (4.0-11.0)
[2017-02-01 02:57] LABS: APTT (PATIENT) 25.3 SEC (24.3-30.1); PROTHROMBIN TIME - PATIENT 11.2 SEC (9.8-11.6)
[2017-02-01 03:04] LABS: BICARBONATE 24.3 MEQ/L (21.0-32.0); POTASSIUM 3.3 MEQ/L (3.5-5.1)
[2017-02-01 03:20] LABS: CALCIUM-PROTEIN CORRECTED 7.4 MG/DL (8.5-10.1)
[2017-02-01] MEDS ORDERED: SODIUM CHLORIDE 0.9% FLUSH 10 ML FLUSH IV FLUSH PRN (03:30)
[2017-02-01] MEDS ORDERED: NALOXONE HCL 0.4 MG/ML AMP IV PRN (03:30)
--- NOTE | 2017-02-01 03:46 | HHI.HP ---
[facility] Unknown Admission Diagnosis Afib with RVR, alcohol intox Diagnoses: Chief Complaint: "Somebody called the ambulance" Travel History International Travel<30 Days: No Contact w/Intl Traveler <30 Da: No Traveled to Known Affected Are: No History of Present Illness Written by Ifrah Martínez, acting as scribe for Dr. Oropeza on 02/01/17 at 03: 56. Patient is a 61-year-old male with primary medical history of HTN, A. fib, anxiety, depression, EtOH, CHF, seizure from alcohol withdrawal. Patient is currently intoxicated and appears to be a poor historian and information gathered from patient as well as prior computerized charting. Patient was witnessed walking around a local [employer] and stumbling bystander called 911. Patient brought to the emergency department found to be in atrial fibrillation with rapid ventricular rate of 163 bpm. Patient complains of chest pain and palpitations. Patient reports that the chest pain feels like a tight sensation and radiates to his legs and up to his neck. Patient is not sure what makes chest pain better or worse. Patient also reports for the last few days he feels as though his more short of breath than normal. Patient reports occasional nausea as well as vomiting. Patient denies black stool, red stool, blood present in urine, blood present vomit, coffee ground emesis or diarrhea. EKG reviewed and reveals A Fib with RVR rate 163 bpm Review of Systems Except as stated in HPI: all other systems reviewed are Neg Past Family Social History Past Medical History HTN COPD A. fib Alcohol abuse Alcohol withdrawal with seizures BBB Past Surgical History Hernia repair left leg surgical repair of fracture Reported Medications Lisinopril 20 Mg Tab 40 Mg PO DAILY Norvasc (Amlodipine Besylate) 10 Mg Tab 10 Mg PO DAILY Aspirin EC (Aspirin) 81 Mg Tabdr 81 Mg PO DAILY Allergies: Coded Allergies: Keflex (Verified Allergy, Severe, hives, 02/01/17) Penicillin (Verified Allergy, Severe, hives, 02/01/17) Sulfa (Verified Allergy, Severe, hives, 02/01/17) Nitroglycerin (Verified Allergy, Mild, 02/01/17) vomit Active Ordered Medications Current Medications Medications (Trade) Dose Ordered Sig/Candy Route Start Time Stop Time Status Last Admin (NS Flush) 2 ml UNSCH PRN IV FLUSH 02/01/17 03:30 (NS Flush) 2 ml BID IV FLUSH 02/01/17 09:00 (Narcan Inj) 0.4 mg UNSCH PRN IV 02/01/17 03:30 (Folate) 1 mg DAILY PO 02/01/17 09:00 02/06/17 08:59 UNV (Vitamin B1) 100 mg DAILY PO 02/01/17 09:00 UNV (Theragran M Tab) 1 tab DAILY PO 02/01/17 09:00 02/06/17 08:59 UNV (Zofran Inj) 4 mg Q6H PRN IV 02/01/17 04:00 UNV (Protonix) 40 mg DAILY PO 02/01/17 09:00 UNV (Romazicon Inj) 0.2 mg Q1M PRN IV PUSH 02/01/17 04:00 UNV (Ativan) 1 mg Q4H PRN PO 02/01/17 04:00 UNV (Ativan Inj) 1 mg Q4H PRN IV PUSH 02/01/17 04:00 UNV (Ativan) 2 mg Q2H PRN PO 02/01/17 04:00 UNV (Ativan Inj) 2 mg Q2H PRN IV PUSH 02/01/17 04:00 UNV (Ativan Inj) 2 mg Q1H PRN IV PUSH 02/01/17 04:00 UNV (Ativan Inj) 2 mg Q15M PRN IV PUSH 02/01/17 04:00 UNV Family History Mother had A Fib Social History Current alcohol use 1-2 pints vodka daily Denies tobacco use, former smoker 1 pack per day quit months ago Denies illicit drug use at this time patient reports he used to do, "a lot of drugs." quit 7-8 years ago Physical Exam Vital Signs Vital Signs Date Time Temp Pulse Resp B/P Pulse Ox O2 Delivery O2 Flow Rate FiO2 02/01/17 03:14 119 154/72 02/01/17 03:09 127 20 125/64 98 Nasal Cannula 2 02/01/17 02:48 138 20 144/75 97 Nasal Cannula 2 02/01/17 02:14 98.6 152 24 118/80 97 Physical Exam GENERAL: This is a well-nourished, well-developed patient, appears intoxicated. SKIN: No rashes, ecchymoses or lesions. Cool and dry. HEAD: Atraumatic. Normocephalic. No temporal or scalp tenderness. EYES: Extraocular motions intact. No scleral icterus. No injection or drainage. CARDIOVASCULAR: tachycardic irregularly irregular RESPIRATORY: Clear to auscultation. Breath sounds equal bilaterally. No wheezes , rales, or rhonchi. GASTROINTESTINAL: Abdomen soft, non-tender, nondistended. MUSCULOSKELETAL: Extremities without clubbing, cyanosis, or edema. No joint tenderness, effusion, or edema noted. No calf tenderness. Negative Homans sign bilaterally. NEUROLOGICAL: Awake and alert. Motor and sensory grossly within normal limits. 4 out of 5 muscle strength in all muscle groups. Normal speech. Laboratory Laboratory Tests Test 02/01/17 02:30 White Blood Count 5.4 Red Blood Count 3.83 Hemoglobin 13.4 Hematocrit 38.8 Mean Corpuscular Volume 101.2 Mean Corpuscular Hemoglobin 35.0 Mean Corpuscular Hemoglobin 34.6 Concent Red Cell Distribution Width 15.8 Platelet Count 195 Mean Platelet Volume 7.5 Neutrophils (%) (Auto) 48.8 Lymphocytes (%) (Auto) 33.1 Monocytes (%) (Auto) 12.9 Eosinophils (%) (Auto) 4.1 Basophils (%) (Auto) 1.1 Neutrophils # (Auto) 2.6 Lymphocytes # (Auto) 1.8 Monocytes # (Auto) 0.7 Eosinophils # (Auto) 0.2 Basophils # (Auto) 0.1 CBC Comment DIFF FINAL Differential Comment Prothrombin Time 11.2 Prothromb Time International 1.0 Ratio Activated Partial 25.3 Thromboplast Time Sodium Level 148 Potassium Level 3.3 Chloride Level 114 Carbon Dioxide Level 24.3 Anion Gap 10 Blood Urea Nitrogen 10 Creatinine 0.64 Estimat Glomerular Filtration 126 Rate Random Glucose 85 Calcium Level 6.6 Protein Corrected Calcium 7.4 Total Protein 5.4 Ethyl Alcohol Level 256 Result Diagram: 02/01/1722902/01/17 0230 Assessment and Plan Problem List: (1) Atrial fibrillation with RVR ICD Code: I48.91 Status: Resolved (2) Alcohol intoxication ICD Code: F10.929 Status: Acute Assessment and Plan A Fib RVR- acute on chronic - Initial EKG reviewed and reveals A Fibrillation rate of 163 bpm - Cardizem drip Alcohol intoxication history of Seizure with withdrawals - Alcohol level 256 - [facility] protocol - Seizure precaution, neurochecks - Multivitamin, folic acid and thiamine daily - Pantoprazole 40 mg - patient counselled on EtOH abuse encouraged to abstain Atypical chest pain R/O ACS - Most likely related to A Fib RVR - EKG reviewed by me reveals A Fib RVR rate 163 bpm - serial troponin and EKG Hypocalcemia- acute replaced with Calcium gluconate IV Noncompliance - Patient admits to skipping his medications recently - Patient counselled DVT prophylaxis with SCDs Discussed with ER provider, nursing and patient Physician Certification 2 Midnight Certification Type: Admission for Inpatient Services Order for Inpatient Services The services are ordered in accordance with Medicare regulations or non- Medicare payer requirements, as applicable. In the case of services not specified as inpatient-only, they are appropriately provided as inpatient services in accordance with the 2-midnight benchmark. Estimated LOS (days): 3 days is the estimated time the patient will need to remain in the hospital, assuming treatment plan goals are met and no additional complications. Post-Hospital Plan: Home Problem Qualifiers (1) Alcohol intoxication: Qualified Code: F10.920 - Alcohol intoxication, uncomplicated Ifrah Martínez Feb 01, 2017 03:46
[2017-02-01] MEDS ORDERED: LORazepam 2 MG/ML VIAL IV PUSH PRN (04:00)
[2017-02-01] MEDS ORDERED: FLUMAZENIL 0.5 MG/5 ML VIAL IV PUSH PRN (04:00)
[2017-02-01] MEDS ORDERED: CALCIUM GLUCONATE INJ 1 GM in DEXTROSE 5% IN WATER 100ML INJ 100 ML IV ONE ×2 (04:00)
[2017-02-01] MEDS ORDERED: MORPHINE SULFATE 4 MG/ML INJ IV PUSH ONE (05:30)
[2017-02-01] MEDS: DILTIAZEM INJ 125 MG in SODIUM CHLORIDE 0.9% INJ 100 ML IV SCH ×2 (05:47→13:00)
[2017-02-01 07:09] LABS: AUTOMATED NEUTROPHIL # 2.2 TH/MM3 (1.8-7.7); BASOPHIL % 0.6 % (0.0-2.0); EOSINOPHIL # 0.2 TH/MM3 (0-0.4); EOSINOPHIL % 3.5 % (0.0-4.0); HEMO FLAGS DIFF FINAL; LYMPH % 34.6 % (9.0-44.0); LYMPHOCYTE # 1.6 TH/MM3 (1.0-4.8); MEAN CELL VOLUME 101.6 FL (80.0-100.0); MEAN CORPUSCULAR HEMOGLOBIN 34.9 PG (27.0-34.0); MEAN CORPUSCULAR HGB CONC 34.3 % (32.0-36.0); MONO % 14.5 % (0.0-8.0); NEUT % 46.8 % (16.0-70.0); PLATELET COUNT 154 TH/MM3 (150-450); RED BLOOD COUNT 3.65 MIL/MM3 (4.50-5.90); RED CELL DISTRIBUTION WIDTH 16.7 % (11.6-17.2); WHITE BLOOD COUNT 4.6 TH/MM3 (4.0-11.0)
[2017-02-01 07:25] LABS: BICARBONATE 22.4 MEQ/L (21.0-32.0); POTASSIUM 3.4 MEQ/L (3.5-5.1)
[2017-02-01 07:39] LABS: CALCIUM-PROTEIN CORRECTED 7.6 MG/DL (8.5-10.1)
[2017-02-01] MEDS ORDERED: METOPROLOL TARTRATE 50 MG TAB PO SCH (09:00)
[2017-02-01] MEDS: THIAMINE HCL 100 MG TAB PO SCH (09:08)
[2017-02-01] MEDS: FOLIC ACID 1 MG TAB PO SCH (09:08)
[2017-02-01] MEDS: PANTOPRAZOLE SOD 40 MG DELAYED RELEASE TAB PO SCH (09:08)
[2017-02-01] MEDS: MULTIVITAMINS/MINERALS THERAPEUTIC TAB PO SCH (09:08)
[2017-02-01] MEDS: LORazepam 2 MG/ML VIAL IV PUSH PRN ×12 (09:08→23:19)
[2017-02-01] MEDS: SODIUM CHLORIDE 0.9% FLUSH 10 ML FLUSH IV FLUSH SCH ×2 (09:09→20:28)
[2017-02-01] MEDS: LORazepam 2 MG TAB PO PRN (09:27)
[2017-02-01] MEDS: POTASSIUM CHLORIDE 20 MEQ CONTROLLED RELEASE TAB PO SCH ×2 (10:28→14:56)
[2017-02-01] MEDS ORDERED: PILL SPLITTER OTHER PRN (14:15)
--- NOTE | 2017-02-01 14:23 | EKG ---
Date Performed: 02/01/2017 Time Performed: 10:47:07 PTAGE: 61 years EKG: ATRIAL FIBRILLATION WITH RAPID VENTRICULAR RESPONSE NONSPECIFIC T-WAVE ABNORMALITY ABNORMAL RHYTHM ECG Compared to PREVIOUS TRACING , the atrial fibrillation is under control. There has been some slight i mprovement in the ST segment changes. PREVIOUS TRACIN02/01/2017 02.10 DOCTOR: Junie Jones Interpretating Date/Time 02/01/2017 14:22:50
--- NOTE | 2017-02-01 14:23 | EKG ---
Date Performed: 02/01/2017 Time Performed: 02:10:33 PTAGE: 61 years EKG: ATRIAL FIBRILLATION WITH RAPID VENTRICULAR RESPONSE ST DEVIATION AND MODERATE T-WAVE ABNORM ALITY, CONSIDER LATERAL ISCHEMIA ST DEVIATION AND MODERATE T-WAVE ABNORMALITY, CONSIDER INFERIOR ISCH EMIA ABNORMAL ECG Compared to PREVIOUS TRACING , the atria fibrillation with the rapid ventricular response is new. The re has been an increase in the lateral ST segment changes. PREVIOUS TRACIN01/12/2017 10.33 DOCTOR: Junie Jones Interpretating Date/Time 02/01/2017 14:22:18
--- NOTE | 2017-02-01 14:56 | HHI.PR ---
Addendum to Inpatient Note Addendum Reason: Additional Documentation Additional Information The pt continued to complain of chest pain. He also had a headache. He said he was trying to quit drinking and that he needs to go to a rehab center. Nursing was at the bedside. Continue CIWA. Trend trops and EKGs. Pain control as needed. Case management consult for rehab referrals. Kenneth Woodall DO Feb 01, 2017 14:56
[2017-02-01] MEDS ORDERED: METOPROLOL TARTRATE 25 MG TAB PO ONE (15:00)
[2017-02-01] MEDS ORDERED: CHLORHEXIDINE GLUCONATE 2 % 1 PACK (2 CLOTHS)(extra cloths) TOPICAL PRN (16:15)
[2017-02-01] MEDS: chlordiazePOXIDE 25 MG CAP PO SCH (17:00)
[2017-02-01 17:46] LABS: MAGNESIUM 1.4 MG/DL (1.5-2.5)
[2017-02-01] MEDS: ONDANSETRON HCL 4 MG/2 ML VIAL IV PRN (18:57)
[2017-02-01] MEDS: DOCUSATE SODIUM 100 MG CAP PO SCH (20:28)
[2017-02-01] MEDS: METOPROLOL TARTRATE 50 MG TAB PO SCH (20:28)
[2017-02-01] MEDS ORDERED: RESP: ALBUTEROL 2.5 MG/IPRATROPIUM 0.5 MG NEB (PRN) NEB (23:45)
[2017-02-02] VITALS (15 sets, daily range): BP systolic 104–157; BP diastolic 64–120; PULSE 80–119; RESP 30–51; TEMP 98.4–99.4; O2SAT 90–95
[2017-02-02] MEDS: LORazepam 2 MG/ML VIAL IV PUSH PRN ×12 (00:22→20:35)
[2017-02-02] MEDS: CHLORHEXIDINE GLUCONATE 2 % 1 PACK (2 CLOTHS)(taper/protocol) TOPICAL SCH (04:00)
[2017-02-02] MEDS: DILTIAZEM INJ 125 MG in SODIUM CHLORIDE 0.9% INJ 100 ML IV SCH ×2 (05:49→14:09)
[2017-02-02 06:03] LABS: HEMATOCRIT 38.3 % (39.0-51.0); MEAN CELL VOLUME 102.4 FL (80.0-100.0); MEAN CORPUSCULAR HEMOGLOBIN 35.1 PG (27.0-34.0); MEAN CORPUSCULAR HGB CONC 34.3 % (32.0-36.0); PLATELET COUNT 165 TH/MM3 (150-450); RED BLOOD COUNT 3.74 MIL/MM3 (4.50-5.90); REVIEW FLAG FINAL; WHITE BLOOD COUNT 9.8 TH/MM3 (4.0-11.0)
[2017-02-02 06:28] LABS: BICARBONATE 28.6 MEQ/L (21.0-32.0); INDIRECT BILIRUBIN 0.7 MG/DL (0.0-0.8); MAGNESIUM 1.4 MG/DL (1.5-2.5); POTASSIUM 3.9 MEQ/L (3.5-5.1); TOTAL BILIRUBIN ADULT 0.9 MG/DL (0.2-1.0)
[2017-02-02] MEDS: METOPROLOL TARTRATE 50 MG TAB PO SCH (09:22)
[2017-02-02] MEDS: FOLIC ACID 1 MG TAB PO SCH (09:22)
[2017-02-02] MEDS: THIAMINE HCL 100 MG TAB PO SCH (09:22)
[2017-02-02] MEDS: ONDANSETRON HCL 4 MG/2 ML VIAL IV PRN (09:22)
[2017-02-02] MEDS: chlordiazePOXIDE 25 MG CAP PO SCH ×4 (09:22→20:35)
[2017-02-02] MEDS: MULTIVITAMINS/MINERALS THERAPEUTIC TAB PO SCH (09:23)
[2017-02-02] MEDS: PANTOPRAZOLE SOD 40 MG DELAYED RELEASE TAB PO SCH (09:23)
[2017-02-02] MEDS: SODIUM CHLORIDE 0.9% FLUSH 10 ML FLUSH IV FLUSH SCH ×2 (09:23→20:36)
[2017-02-02] MEDS: DOCUSATE SODIUM 100 MG CAP PO SCH ×2 (09:23→20:36)
[2017-02-02] MEDS: MAGNESIUM SULFATE 1 GM PREMIX 100 ML IV SCH ×2 (10:55→12:19)
--- NOTE | 2017-02-02 12:47 | HHI.PR ---
Subjective Remarks The patient continues to complain of chest pain. He is also expressing shortness of breath. He says he is choking with meals. He feels like he is still withdrawing badly. He says the left side of his body hurts after a recent fall. Discussed with nursing at the bedside. Objective Vitals Vital Signs Date Time Temp Pulse Resp B/P Pulse Ox O2 Delivery O2 Flow Rate FiO2 02/02/17 10:00 107 02/02/17 08:40 94 Nasal Cannula 5.00 02/02/17 08:00 105 02/02/17 08:00 98.4 105 30 104/64 93 02/02/17 06:00 98 02/02/17 04:00 98.5 98 32 140/102 93 02/02/17 04:00 97 02/02/17 02:00 96 02/02/17 00:41 95 Nasal Cannula 3.00 02/02/17 00:00 80 35 137/79 90 02/02/17 00:00 80 02/01/17 22:59 95 Simple Mask 8.00 02/01/17 22:00 85 02/01/17 20:00 100 02/01/17 20:00 98.3 100 33 138/82 92 02/01/17 18:00 103 02/01/17 16:00 121 02/01/17 16:00 97.4 121 25 128/90 97 02/01/17 14:00 118 I/O 02/01/17 02/01/17 02/01/17 02/02/17 02/02/17 02/02/17 07:00 15:00 23:00 07:00 15:00 23:00 Intake Total 445 ml 510 ml Output Total 275 ml 400 ml Balance 170 ml 110 ml Intake Oral 240 ml 480 ml IV Total 205 ml 30 ml Output Urine Total 275 ml 400 ml Result Diagram: 02/02/17 0501 02/02/17 0501 Objective Remarks GENERAL: This is a well-nourished, well-developed patient, appears uncomfortable. SKIN: No rashes, ecchymoses or lesions. Cool and dry. HEAD: Atraumatic. Normocephalic. No temporal or scalp tenderness. EYES: Extraocular motions intact. No scleral icterus. No injection or drainage. CARDIOVASCULAR: tachycardic, irregularly irregular. RESPIRATORY: Poor respiratory effort. GASTROINTESTINAL: Abdomen soft, non-tender, nondistended. MUSCULOSKELETAL: Extremities without clubbing, cyanosis, or edema. No joint tenderness, effusion, or edema noted. NEUROLOGICAL: Awake and alert. Motor and sensory grossly within normal limits. 4 out of 5 muscle strength in all muscle groups. Normal speech. PSYCH: Anxious. Medications and IVs Current Medications Medications (Trade) Dose Ordered Sig/Candy Route Start Time Stop Time Status Last Admin (NS Flush) 2 ml UNSCH PRN IV FLUSH 02/01/17 03:30 (NS Flush) 2 ml BID IV FLUSH 02/01/17 09:00 02/02/17 09:23 (Narcan Inj) 0.4 mg UNSCH PRN IV 02/01/17 03:30 (Folate) 1 mg DAILY PO 02/01/17 09:00 02/06/17 08:59 02/02/17 09:22 (Vitamin B1) 100 mg DAILY PO 02/01/17 09:00 02/02/17 09:22 (Theragran M Tab) 1 tab DAILY PO 02/01/17 09:00 02/06/17 08:59 02/02/17 09:23 (Zofran Inj) 4 mg Q6H PRN IV 02/01/17 04:00 02/02/17 09:22 (Protonix) 40 mg DAILY PO 02/01/17 09:00 02/02/17 09:23 (Romazicon Inj) 0.2 mg Q1M PRN IV PUSH 02/01/17 04:00 (Ativan) 1 mg Q4H PRN PO 02/01/17 04:00 (Ativan Inj) 1 mg Q4H PRN IV PUSH 02/01/17 04:00 (Ativan) 2 mg Q2H PRN PO 02/01/17 04:00 02/01/17 09:27 (Ativan Inj) 2 mg Q2H PRN IV PUSH 02/01/17 04:00 (Ativan Inj) 2 mg Q1H PRN IV PUSH 02/01/17 04:00 02/02/17 12:34 Lorazepam 2 mg 2 mg Q15M PRN IV PUSH 02/01/17 04:00 02/02/17 03:55 (Cardizem Inj/NS Inj) 125 ml @ 0 mls/hr TITRATE IV 02/01/17 05:30 02/02/17 05:49 (Roxicodone) 5 mg Q4H PRN PO 02/01/17 14:00 02/02/17 11:20 (Colace) 100 mg BID PO 02/01/17 21:00 02/02/17 09:23 (Pill Splitter) 1 ea UNSCH PRN OTHER 02/01/17 14:15 Miscellaneous Information Patient in critical care unit? Ass... [id number] .XX 02/01/17 16:15 (Chlorhexidine 2% Cloth) 3 pack DAILY@04 TOPICAL 02/02/17 04:00 02/06/17 04:01 02/02/17 04:00 (Chlorhexidine 2% Cloth) 3 pack UNSCH PRN TOPICAL 02/01/17 16:15 02/06/17 16:07 (Librium) 25 mg TID PO 02/01/17 18:00 02/02/17 12:19 (Cardizem) 60 mg QID PO 02/02/17 13:00 (Roxicodone) 10 mg Q4H PRN PO 02/02/17 12:45 UNV A/P Problem List: (1) Atrial fibrillation with RVR ICD Code: I48.91 Status: Resolved (2) Alcohol intoxication ICD Code: F10.929 Status: Acute Assessment and Plan A Fib with RVR Acute on chronic. HR uncontrolled at this time. - continue Cardizem drip. - change Lopressor to PO Cardizem s/t respiratory distress. - cardiology consult if no improvement. - telemetry. - treat underlying withdrawal. Acute respiratory failure The patient is requiring increasing amounts of nasal cannula. He describes choking on food, so aspiration is a concern. He has a history of COPD. - Swallow eval requested. - Chest x-ray pending. - Duo nebs standing and as needed. - Oxygen as needed. - Change Lopressor to diltiazem as may be exacerbating COPD. Alcohol intoxication History of seizure with withdrawals. Alcohol level 256. - CIWA protocol. Standing Librium added. - Seizure precaution, neurochecks. - Multivitamin, folic acid and thiamine daily - Pantoprazole 40 mg. - patient counselled on EtOH abuse encouraged to abstain. Atypical chest pain Most likely costochondritis as CP is quite reproducible on exam. EKG with A fib. Trops negative. - pain control as needed. - telemetry. Noncompliance Patient admits to skipping his medications recently. - Patient counselled. DVT prophylaxis with SCDs Discharge Planning Awaiting clinical improvement Problem Qualifiers (1) Alcohol intoxication: Qualified Code: F10.920 - Alcohol intoxication, uncomplicated Kenneth Woodall DO Feb 02, 2017 12:47
[2017-02-02] MEDS: RESP: ALBUTEROL 2.5 MG/IPRATROPIUM 0.5 MG NEB (SCH) NEB ×2 (13:16→20:46)
[2017-02-02] MEDS ORDERED: chlordiazePOXIDE 25 MG CAP PO PRN (13:45)
[2017-02-02] MEDS ORDERED: RESP: ALBUTEROL 2.5 MG/IPRATROPIUM 0.5 MG NEB (PRN) NEB (14:00)
[2017-02-02] MEDS: DILTIAZEM HCL 60 MG TAB PO SCH ×3 (14:09→20:35)
--- NOTE | 2017-02-02 14:12 | RADRPT ---
EXAM DATE/TIME: 02/02/2017 12:57 [place] COMPARISON: CHEST SINGLE AP, December 30, 2016, 23:01. INDICATIONS : Short of breath. MEDICAL HISTORY : Cardiovascular disease. Hypertension seizures SURGICAL HISTORY : None. ENCOUNTER: Initial ACUITY: 2 days PAIN SCORE: Non-responsive. LOCATION: Bilateral chest FINDINGS: A single view of the chest demonstrates cardiomegaly. Basilar density characteristic of airspace dise ase and small effusions. No pneumothorax. CONCLUSION: 1. Basilar airspace disease with small effusions. Differential diagnosis includes mild congestive hea rt failure. There is cardiomegaly. Findings are new since December 30. Obed Chadwick MD on February 02, 2017 at 14:08 Board Certified Radiologist. This report was verified electronically.
--- NOTE | 2017-02-02 16:48 | EKG ---
Date Performed: 02/01/2017 Time Performed: 15:26:59 PTAGE: 61 years EKG: ATRIAL FIBRILLATION WITH RAPID VENTRICULAR RESPONSE NONSPECIFIC ST & T-WAVE ABNORMALITY ABN ORMAL RHYTHM ECG PREVIOUS TRACING : 02/01/2017 10.47 Compared to prior tracing no significant change DOCTOR: Re Veloz Interpretating Date/Time 02/02/2017 16:45:58
[2017-02-03] VITALS (14 sets, daily range): BP systolic 110–127; BP diastolic 67–90; PULSE 79–92; RESP 20–26; TEMP 98–98.8; O2SAT 92–99
[2017-02-03] MEDS: chlordiazePOXIDE 25 MG CAP PO SCH ×4 (01:23→19:38)
[2017-02-03] MEDS: LORazepam 2 MG/ML VIAL IV PUSH PRN ×8 (01:24→22:52)
[2017-02-03] MEDS: CHLORHEXIDINE GLUCONATE 2 % 1 PACK (2 CLOTHS)(taper/protocol) TOPICAL SCH (04:00)
[2017-02-03] MEDS: DILTIAZEM INJ 125 MG in SODIUM CHLORIDE 0.9% INJ 100 ML IV SCH (06:07)
[2017-02-03] MEDS: RESP: ALBUTEROL 2.5 MG/IPRATROPIUM 0.5 MG NEB (SCH) NEB ×3 (07:47→20:42)
[2017-02-03] MEDS: MULTIVITAMINS/MINERALS THERAPEUTIC TAB PO SCH (08:00)
[2017-02-03] MEDS: FOLIC ACID 1 MG TAB PO SCH (08:00)
[2017-02-03] MEDS: PANTOPRAZOLE SOD 40 MG DELAYED RELEASE TAB PO SCH (08:00)
[2017-02-03] MEDS: DILTIAZEM HCL 60 MG TAB PO SCH ×4 (08:00→19:38)
[2017-02-03] MEDS: DOCUSATE SODIUM 100 MG CAP PO SCH ×2 (08:00→19:38)
[2017-02-03] MEDS: THIAMINE HCL 100 MG TAB PO SCH (08:00)
[2017-02-03] MEDS: SODIUM CHLORIDE 0.9% FLUSH 10 ML FLUSH IV FLUSH SCH ×2 (08:01→19:38)
[2017-02-03] MEDS ORDERED: MAGNESIUM SULFATE 1 GM PREMIX 100 ML IV SCH (11:00)
--- NOTE | 2017-02-03 11:58 | HHI.PR ---
Subjective Remarks The patient was quite tremulous but said he was feeling better. He said he was breathing better. He said that his chest pain was improved. He had no acute complaints at this time. Discussed with nursing. Objective Vitals Vital Signs Date Time Temp Pulse Resp B/P Pulse Ox O2 Delivery O2 Flow Rate FiO2 02/03/17 10:00 85 02/03/17 08:00 84 02/03/17 08:00 98.2 84 22 117/67 92 02/03/17 07:48 93 Nasal Cannula 5.00 02/03/17 06:00 83 02/03/17 04:00 83 02/03/17 04:00 83 22 113/78 97 02/03/17 02:00 83 02/03/17 00:00 83 02/03/17 00:00 98.8 83 21 127/73 96 02/02/17 22:00 99 02/02/17 20:49 95 Nasal Cannula 5.00 02/02/17 20:00 98.4 114 51 127/72 02/02/17 20:00 100 02/02/17 18:00 98 02/02/17 16:00 119 02/02/17 16:00 98.9 115 32 116/82 95 02/02/17 14:00 115 02/02/17 12:00 99.4 109 38 157/120 93 02/02/17 12:00 107 I/O 02/02/17 02/02/17 02/02/17 02/03/17 02/03/17 02/03/17 07:00 15:00 23:00 07:00 15:00 23:00 Intake Total 510 ml 542 ml 558 ml 237 ml Output Total 400 ml 400 ml 400 ml 600 ml Balance 110 ml 142 ml 158 ml -363 ml Intake Oral 480 ml 480 ml 480 ml 200 ml IV Total 30 ml 62 ml 78 ml 37 ml Output Urine Total 400 ml 400 ml 400 ml 600 ml Result Diagram: 02/02/17 0501 02/02/17 0501 Imaging Last Impressions Chest X-Ray 02/02/17 0000 Signed Impressions: Service Date/Time: Thursday, February 02, 2017 12:57 - CONCLUSION: 1. Basilar airspace disease with small effusions. Differential diagnosis includes mild congestive heart failure. There is cardiomegaly. Findings are new since December 30. Obed Chadwick MD Objective Remarks GENERAL: This is a well-nourished, well-developed patient, resting comfortably. SKIN: No rashes, ecchymoses or lesions. Cool and dry. HEAD: Atraumatic. Normocephalic. No temporal or scalp tenderness. EYES: Extraocular motions intact. No scleral icterus. No injection or drainage. CARDIOVASCULAR: Regular rate and rhythm. No murmurs. RESPIRATORY: Clear to auscultation bilaterally. GASTROINTESTINAL: Abdomen soft, non-tender, nondistended. MUSCULOSKELETAL: Extremities without clubbing, cyanosis, or edema. No joint tenderness, effusion, or edema noted. NEUROLOGICAL: Tremulous. Awake and alert. Motor and sensory grossly within normal limits. 4 out of 5 muscle strength in all muscle groups. Normal speech. PSYCH: Calm. Medications and IVs Current Medications Medications (Trade) Dose Ordered Sig/Candy Route Start Time Stop Time Status Last Admin (NS Flush) 2 ml UNSCH PRN IV FLUSH 02/01/17 03:30 (NS Flush) 2 ml BID IV FLUSH 02/01/17 09:00 02/03/17 08:01 (Narcan Inj) 0.4 mg UNSCH PRN IV 02/01/17 03:30 (Folate) 1 mg DAILY PO 02/01/17 09:00 02/06/17 08:59 02/03/17 08:00 (Vitamin B1) 100 mg DAILY PO 02/01/17 09:00 02/03/17 08:00 (Theragran M Tab) 1 tab DAILY PO 02/01/17 09:00 02/06/17 08:59 02/03/17 08:00 (Zofran Inj) 4 mg Q6H PRN IV 02/01/17 04:00 02/02/17 09:22 (Protonix) 40 mg DAILY PO 02/01/17 09:00 02/03/17 08:00 (Romazicon Inj) 0.2 mg Q1M PRN IV PUSH 02/01/17 04:00 (Ativan) 1 mg Q4H PRN PO 02/01/17 04:00 (Ativan Inj) 1 mg Q4H PRN IV PUSH 02/01/17 04:00 (Ativan) 2 mg Q2H PRN PO 02/01/17 04:00 02/01/17 09:27 (Ativan Inj) 2 mg Q2H PRN IV PUSH 02/01/17 04:00 02/03/17 11:01 (Ativan Inj) 2 mg Q1H PRN IV PUSH 02/01/17 04:00 02/03/17 07:56 (Ativan Inj) 2 mg Q15M PRN IV PUSH 02/01/17 04:00 02/02/17 20:35 (Roxicodone) 5 mg Q4H PRN PO 02/01/17 14:00 02/02/17 11:20 (Colace) 100 mg BID PO 02/01/17 21:00 02/03/17 08:00 (Pill Splitter) 1 ea UNSCH PRN OTHER 02/01/17 14:15 Miscellaneous Information Patient in critical care unit? Ass... Q361D .XX 02/01/17 16:15 (Chlorhexidine 2% Cloth) 3 pack DAILY@04 TOPICAL 02/02/17 04:00 02/06/17 04:01 02/03/17 04:00 (Chlorhexidine 2% Cloth) 3 pack UNSCH PRN TOPICAL 02/01/17 16:15 02/06/17 16:07 (Cardizem) 60 mg QID PO 02/02/17 13:00 02/03/17 08:00 (Roxicodone) 10 mg Q4H PRN PO 02/02/17 12:45 02/02/17 16:33 Chlordiazepoxide 50 mg 50 mg Q6H PO 02/02/17 14:00 02/03/17 07:56 (Magnesium Sulfate 1 Gm Premix) 100 ml @ 100 mls/hr Q1H IV 02/03/17 11:00 02/03/17 12:59 02/03/17 11:01 A/P Problem List: (1) Atrial fibrillation with RVR ICD Code: I48.91 Status: Resolved (2) Alcohol intoxication ICD Code: F10.929 Status: Acute Assessment and Plan A Fib with RVR Acute on chronic. Converted to normal sinus rhythm. - d/c Cardizem drip. - continue PO Cardizem. - telemetry. - treat underlying withdrawal. - continue baby ASA. Acute respiratory failure The patient is requiring increasing amounts of nasal cannula. He describes choking on food, so aspiration is a concern. He has a history of COPD. CXR with small effusions. Lungs clear at this time. - diet per ST. - Duo nebs standing and as needed. - Oxygen as needed. Wean as tolerated. - Changed Lopressor to diltiazem as may be exacerbating COPD. Alcohol intoxication History of seizure with withdrawals. Alcohol level 256. Still requiring IV Ativan. - CIWA protocol. Standing Librium added. Wean as tolerated. - Seizure precaution, neurochecks. - Multivitamin, folic acid and thiamine daily - Pantoprazole 40 mg. - patient counselled on EtOH abuse encouraged to abstain. Atypical chest pain Most likely costochondritis as CP is quite reproducible on exam. EKG with A fib. Trops negative. Seems resolved. - pain control as needed. - telemetry. Noncompliance Patient admits to skipping his medications recently. - Patient counselled. DVT prophylaxis with SCDs Discharge Planning Awaiting clinical improvement Problem Qualifiers (1) Alcohol intoxication: Qualified Code: F10.920 - Alcohol intoxication, uncomplicated Kenneth Woodall DO Feb 03, 2017 11:58
[2017-02-03] MEDS: ASPIRIN EC 81 MG TABEC PO SCH (12:08)
[2017-02-03 12:18] LABS: HEMATOCRIT 36.9 % (39.0-51.0); MEAN CELL VOLUME 102.4 FL (80.0-100.0); MEAN CORPUSCULAR HEMOGLOBIN 35.5 PG (27.0-34.0); MEAN CORPUSCULAR HGB CONC 34.6 % (32.0-36.0); PLATELET COUNT 115 TH/MM3 (150-450); RED CELL DISTRIBUTION WIDTH 16.2 % (11.6-17.2); REVIEW FLAG FINAL; WHITE BLOOD COUNT 7.6 TH/MM3 (4.0-11.0)
[2017-02-03 12:32] LABS: BICARBONATE 26.7 MEQ/L (21.0-32.0); MAGNESIUM 1.9 MG/DL (1.5-2.5); POTASSIUM 3.9 MEQ/L (3.5-5.1)
[2017-02-04] VITALS (14 sets, daily range): BP systolic 137–162; BP diastolic 71–119; PULSE 80–89; RESP 22–28; TEMP 97.8–98.7; O2SAT 90–97
[2017-02-04] MEDS: LORazepam 2 MG/ML VIAL IV PUSH PRN ×7 (00:14→22:47)
[2017-02-04] MEDS: chlordiazePOXIDE 25 MG CAP PO SCH ×4 (00:14→20:04)
[2017-02-04] MEDS: CHLORHEXIDINE GLUCONATE 2 % 1 PACK (2 CLOTHS)(taper/protocol) TOPICAL SCH (04:00)
[2017-02-04] MEDS: RESP: ALBUTEROL 2.5 MG/IPRATROPIUM 0.5 MG NEB (SCH) NEB ×3 (08:32→19:09)
[2017-02-04] MEDS: MULTIVITAMINS/MINERALS THERAPEUTIC TAB PO SCH (09:31)
[2017-02-04] MEDS: THIAMINE HCL 100 MG TAB PO SCH (09:31)
[2017-02-04] MEDS: FOLIC ACID 1 MG TAB PO SCH (09:31)
[2017-02-04] MEDS: DOCUSATE SODIUM 100 MG CAP PO SCH ×2 (09:31→20:05)
[2017-02-04] MEDS: ASPIRIN EC 81 MG TABEC PO SCH (09:31)
[2017-02-04] MEDS: PANTOPRAZOLE SOD 40 MG DELAYED RELEASE TAB PO SCH (09:31)
[2017-02-04] MEDS: DILTIAZEM HCL 60 MG TAB PO SCH ×4 (09:31→20:04)
[2017-02-04] MEDS: SODIUM CHLORIDE 0.9% FLUSH 10 ML FLUSH IV FLUSH SCH ×2 (09:32→20:05)
[2017-02-04] MEDS: LORazepam 2 MG TAB PO PRN ×3 (13:31→20:04)
--- NOTE | 2017-02-04 14:51 | HHI.PR ---
Subjective Remarks The patient was resting comfortably in bed. He said his chest and breathing were better. He said his withdrawal was better. Discussed with nursing. Objective Vitals Vital Signs Date Time Temp Pulse Resp B/P Pulse Ox O2 Delivery O2 Flow Rate FiO2 02/04/17 12:00 97.8 80 22 147/89 90 02/04/17 12:00 80 02/04/17 10:00 83 02/04/17 08:40 94 02/04/17 08:00 98.3 80 23 140/71 90 02/04/17 08:00 81 02/04/17 06:00 81 02/04/17 04:00 81 02/04/17 04:00 98.3 81 23 162/104 96 02/04/17 02:00 86 02/04/17 00:00 98.2 89 28 148/119 94 02/04/17 00:00 89 02/03/17 22:00 92 02/03/17 20:42 94 Nasal Cannula 4.00 02/03/17 20:00 98.2 79 20 122/90 92 02/03/17 20:00 80 02/03/17 18:00 80 02/03/17 16:00 79 02/03/17 16:00 98.5 79 26 125/81 94 I/O 02/03/17 02/03/17 02/03/17 02/04/17 02/04/17 02/04/17 07:00 15:00 23:00 07:00 15:00 23:00 Intake Total 237 ml 201 ml 480 ml Output Total 600 ml 1025 ml 250 ml 350 ml Balance -363 ml -824 ml -250 ml 130 ml Intake Oral 200 ml 480 ml IV Total 37 ml 201 ml Output Urine Total 600 ml 1025 ml 250 ml 350 ml # Bowel Movements 1 Result Diagram: 02/03/17 1126 02/03/17 1126 Imaging Last Impressions Chest X-Ray 02/02/17 0000 Signed Impressions: Service Date/Time: Thursday, February 02, 2017 12:57 - CONCLUSION: 1. Basilar airspace disease with small effusions. Differential diagnosis includes mild congestive heart failure. There is cardiomegaly. Findings are new since December 30. Obed Chadwick MD Objective Remarks GENERAL: This is a well-nourished, well-developed patient, resting comfortably. SKIN: No rashes, ecchymoses or lesions. Cool and dry. HEAD: Atraumatic. Normocephalic. No temporal or scalp tenderness. EYES: Extraocular motions intact. No scleral icterus. No injection or drainage. CARDIOVASCULAR: Regular rate and rhythm. No murmurs. RESPIRATORY: Clear to auscultation bilaterally. GASTROINTESTINAL: Abdomen soft, non-tender, nondistended. MUSCULOSKELETAL: Extremities without clubbing, cyanosis, or edema. No joint tenderness, effusion, or edema noted. NEUROLOGICAL: Less tremulous. Awake and alert. Motor and sensory grossly within normal limits. 4 out of 5 muscle strength in all muscle groups. Normal speech. PSYCH: Calm. Medications and IVs Current Medications Medications (Trade) Dose Ordered Sig/Candy Route Start Time Stop Time Status Last Admin (NS Flush) 2 ml UNSCH PRN IV FLUSH 02/01/17 03:30 (NS Flush) 2 ml BID IV FLUSH 02/01/17 09:00 02/04/17 09:32 (Narcan Inj) 0.4 mg UNSCH PRN IV 02/01/17 03:30 (Folate) 1 mg DAILY PO 02/01/17 09:00 02/06/17 08:59 02/04/17 09:31 (Vitamin B1) 100 mg DAILY PO 02/01/17 09:00 02/04/17 09:31 (Theragran M Tab) 1 tab DAILY PO 02/01/17 09:00 02/06/17 08:59 02/04/17 09:31 (Zofran Inj) 4 mg Q6H PRN IV 02/01/17 04:00 02/02/17 09:22 (Protonix) 40 mg DAILY PO 02/01/17 09:00 02/04/17 09:31 (Romazicon Inj) 0.2 mg Q1M PRN IV PUSH 02/01/17 04:00 (Ativan) 1 mg Q4H PRN PO 02/01/17 04:00 (Ativan Inj) 1 mg Q4H PRN IV PUSH 02/01/17 04:00 (Ativan) 2 mg Q2H PRN PO 02/01/17 04:00 02/04/17 13:31 (Ativan Inj) 2 mg Q2H PRN IV PUSH 02/01/17 04:00 02/03/17 13:02 (Ativan Inj) 2 mg Q1H PRN IV PUSH 02/01/17 04:00 02/04/17 09:38 (Ativan Inj) 2 mg Q15M PRN IV PUSH 02/01/17 04:00 02/02/17 20:35 (Roxicodone) 5 mg Q4H PRN PO 02/01/17 14:00 02/02/17 11:20 (Colace) 100 mg BID PO 02/01/17 21:00 02/04/17 09:31 (Pill Splitter) 1 ea UNSCH PRN OTHER 02/01/17 14:15 Miscellaneous Information Patient in critical care unit? Ass... Q361D .XX 02/01/17 16:15 (Chlorhexidine 2% Cloth) 3 pack DAILY@04 TOPICAL 02/02/17 04:00 02/06/17 04:01 02/04/17 04:00 (Chlorhexidine 2% Cloth) 3 pack UNSCH PRN TOPICAL 02/01/17 16:15 02/06/17 16:07 (Cardizem) 60 mg QID PO 02/02/17 13:00 02/04/17 13:31 (Roxicodone) 10 mg Q4H PRN PO 02/02/17 12:45 02/04/17 01:29 (Ecotrin Ec) 81 mg DAILY PO 02/03/17 12:00 02/04/17 09:31 (Librium) 25 mg Q6H PO 02/04/17 14:00 02/04/17 13:31 A/P Problem List: (1) Atrial fibrillation with RVR ICD Code: I48.91 Status: Resolved (2) Alcohol intoxication ICD Code: F10.929 Status: Acute Assessment and Plan A Fib with RVR Acute on chronic. Converted to normal sinus rhythm. Rate controlled 02/04. - d/c Cardizem drip. - continue PO Cardizem. - telemetry. - treat underlying withdrawal. - continue baby ASA. Acute respiratory failure The patient is requiring increasing amounts of nasal cannula. He describes choking on food, so aspiration is a concern. He has a history of COPD. CXR with small effusions. Lungs clear at this time. Respiratory status is improved 02/04. - diet per ST. - Duo nebs standing and as needed. - Oxygen as needed. Wean as tolerated. - Changed Lopressor to diltiazem as may be exacerbating COPD. Alcohol intoxication History of seizure with withdrawals. Alcohol level 256. Still requiring IV Ativan. - CIWA protocol. Standing Librium added. Wean as tolerated. Decreased to 25 mg QID 02/04. - Seizure precaution, neurochecks. - Multivitamin, folic acid and thiamine daily - Pantoprazole 40 mg. - patient counselled on EtOH abuse encouraged to abstain. Atypical chest pain Most likely costochondritis as CP is quite reproducible on exam. EKG with A fib. Trops negative. Seems resolved. - pain control as needed. - telemetry. Noncompliance Patient admits to skipping his medications recently. - Patient counselled. Thrombocytopenia Plt count has been decreasing. Somewhat chronic. - continue to monitor. DVT prophylaxis with SCDs Discharge Planning Anticipate transfer to floor in AM Problem Qualifiers (1) Alcohol intoxication: Qualified Code: F10.920 - Alcohol intoxication, uncomplicated Kenneth Woodall DO Feb 04, 2017 14:51
[2017-02-04 17:20] LABS: HEMATOCRIT 38.4 % (39.0-51.0); MEAN CELL VOLUME 102.8 FL (80.0-100.0); MEAN CORPUSCULAR HEMOGLOBIN 34.2 PG (27.0-34.0); MEAN CORPUSCULAR HGB CONC 33.3 % (32.0-36.0); PLATELET COUNT 111 TH/MM3 (150-450); RED BLOOD COUNT 3.73 MIL/MM3 (4.50-5.90); REVIEW FLAG FINAL; WHITE BLOOD COUNT 6.3 TH/MM3 (4.0-11.0)
[2017-02-05] VITALS (12 sets, daily range): BP systolic 129–195; BP diastolic 65–108; PULSE 78–98; RESP 18–25; TEMP 97.7–98.7; O2SAT 92–100
[2017-02-05] MEDS: chlordiazePOXIDE 25 MG CAP PO SCH ×4 (01:56→18:44)
[2017-02-05] MEDS: CHLORHEXIDINE GLUCONATE 2 % 1 PACK (2 CLOTHS)(taper/protocol) TOPICAL SCH (03:57)
[2017-02-05] MEDS: LORazepam 2 MG TAB PO PRN ×3 (05:36→22:41)
[2017-02-05 05:53] LABS: HEMATOCRIT 40.7 % (39.0-51.0); MEAN CELL VOLUME 103.5 FL (80.0-100.0); MEAN CORPUSCULAR HGB CONC 33.8 % (32.0-36.0); PLATELET COUNT 127 TH/MM3 (150-450); RED BLOOD COUNT 3.93 MIL/MM3 (4.50-5.90); REVIEW FLAG FINAL; WHITE BLOOD COUNT 6.3 TH/MM3 (4.0-11.0)
[2017-02-05 06:25] LABS: BICARBONATE 26.2 MEQ/L (21.0-32.0); MAGNESIUM 1.9 MG/DL (1.5-2.5); POTASSIUM 3.8 MEQ/L (3.5-5.1)
[2017-02-05] MEDS: RESP: ALBUTEROL 2.5 MG/IPRATROPIUM 0.5 MG NEB (SCH) NEB ×3 (08:30→23:10)
[2017-02-05] MEDS: MULTIVITAMINS/MINERALS THERAPEUTIC TAB PO SCH (08:39)
[2017-02-05] MEDS: ASPIRIN EC 81 MG TABEC PO SCH (08:39)
[2017-02-05] MEDS: DILTIAZEM HCL 60 MG TAB PO SCH ×4 (08:39→21:57)
[2017-02-05] MEDS: FOLIC ACID 1 MG TAB PO SCH (08:39)
[2017-02-05] MEDS: SODIUM CHLORIDE 0.9% FLUSH 10 ML FLUSH IV FLUSH SCH ×2 (08:39→21:58)
[2017-02-05] MEDS: DOCUSATE SODIUM 100 MG CAP PO SCH ×2 (08:39→21:57)
[2017-02-05] MEDS: THIAMINE HCL 100 MG TAB PO SCH (08:39)
[2017-02-05] MEDS: PANTOPRAZOLE SOD 40 MG DELAYED RELEASE TAB PO SCH (08:39)
[2017-02-05] MEDS ORDERED: MAGNESIUM HYDROXIDE SUSP 30 ML CUP PO ONE (09:30)
[2017-02-05] MEDS ORDERED: MAGNESIUM HYDROXIDE SUSP 30 ML CUP PO PRN (09:30)
--- NOTE | 2017-02-05 09:32 | HHI.PR ---
Subjective Remarks The patient had no complaints. He was resting comfortably in bed. He had no chest pain. Breathing comfortably. He said he's been constipated. Discussed with nursing. Objective Vitals Vital Signs Date Time Temp Pulse Resp B/P Pulse Ox O2 Delivery O2 Flow Rate FiO2 02/05/17 08:31 93 21 02/05/17 06:00 80 02/05/17 05:00 98.6 79 25 134/87 92 02/05/17 04:00 90 02/05/17 02:00 78 02/05/17 00:00 98.4 79 25 129/77 92 02/05/17 00:00 79 02/04/17 22:00 81 02/04/17 20:00 98.6 83 22 151/96 95 02/04/17 20:00 83 02/04/17 19:10 90 21 02/04/17 18:00 82 02/04/17 16:00 98.7 82 26 137/98 97 02/04/17 16:00 82 02/04/17 14:00 82 02/04/17 12:00 97.8 80 22 147/89 90 02/04/17 12:00 80 02/04/17 10:00 83 I/O 02/04/17 02/04/17 02/04/17 02/05/17 02/05/17 02/05/17 07:00 15:00 23:00 07:00 15:00 23:00 Intake Total 480 ml 480 ml 480 ml Output Total 350 ml 625 ml 1000 ml 680 ml Balance 130 ml -625 ml -520 ml -200 ml Intake Oral 480 ml 480 ml 480 ml Output Urine Total 350 ml 625 ml 1000 ml 680 ml # Bowel Movements 1 Result Diagram: 02/05/17 0519 02/05/17 0519 Imaging Last Impressions Chest X-Ray 02/02/17 0000 Signed Impressions: Service Date/Time: Thursday, February 02, 2017 12:57 - CONCLUSION: 1. Basilar airspace disease with small effusions. Differential diagnosis includes mild congestive heart failure. There is cardiomegaly. Findings are new since December 30. Obed Chadwick MD Objective Remarks GENERAL: This is a well-nourished, well-developed patient, resting comfortably. SKIN: No rashes, ecchymoses or lesions. Cool and dry. HEAD: Atraumatic. Normocephalic. No temporal or scalp tenderness. EYES: Extraocular motions intact. No scleral icterus. No injection or drainage. CARDIOVASCULAR: Regular rate and rhythm. No murmurs. RESPIRATORY: Clear to auscultation bilaterally. No wheezes, rales or rhonchi. GASTROINTESTINAL: Abdomen soft, non-tender, nondistended. MUSCULOSKELETAL: Extremities without clubbing, cyanosis, or edema. No joint tenderness, effusion, or edema noted. NEUROLOGICAL: Awake and alert. Motor and sensory grossly within normal limits. 4 out of 5 muscle strength in all muscle groups. Normal speech. PSYCH: Mood and affect appropriate. Medications and IVs Current Medications Medications (Trade) Dose Ordered Sig/Candy Route Start Time Stop Time Status Last Admin (NS Flush) 2 ml UNSCH PRN IV FLUSH 02/01/17 03:30 (NS Flush) 2 ml BID IV FLUSH 02/01/17 09:00 02/05/17 08:39 (Narcan Inj) 0.4 mg UNSCH PRN IV 02/01/17 03:30 (Folate) 1 mg DAILY PO 02/01/17 09:00 02/06/17 08:59 02/05/17 08:39 (Vitamin B1) 100 mg DAILY PO 02/01/17 09:00 02/05/17 08:39 (Theragran M Tab) 1 tab DAILY PO 02/01/17 09:00 02/06/17 08:59 02/05/17 08:39 (Zofran Inj) 4 mg Q6H PRN IV 02/01/17 04:00 02/02/17 09:22 (Protonix) 40 mg DAILY PO 02/01/17 09:00 02/05/17 08:39 (Romazicon Inj) 0.2 mg Q1M PRN IV PUSH 02/01/17 04:00 (Ativan) 1 mg Q4H PRN PO 02/01/17 04:00 (Ativan Inj) 1 mg Q4H PRN IV PUSH 02/01/17 04:00 (Ativan) 2 mg Q2H PRN PO 02/01/17 04:00 02/05/17 08:39 (Ativan Inj) 2 mg Q2H PRN IV PUSH 02/01/17 04:00 02/04/17 22:47 (Ativan Inj) 2 mg Q1H PRN IV PUSH 02/01/17 04:00 02/04/17 09:38 (Ativan Inj) 2 mg Q15M PRN IV PUSH 02/01/17 04:00 02/02/17 20:35 (Roxicodone) 5 mg Q4H PRN PO 02/01/17 14:00 02/02/17 11:20 (Colace) 100 mg BID PO 02/01/17 21:00 02/05/17 08:39 (Pill Splitter) 1 ea UNSCH PRN OTHER 02/01/17 14:15 Miscellaneous Information Patient in critical care unit? Ass... Q361D .XX 02/01/17 16:15 (Chlorhexidine 2% Cloth) 3 pack DAILY@04 TOPICAL 02/02/17 04:00 02/06/17 04:01 02/04/17 04:00 (Chlorhexidine 2% Cloth) 3 pack UNSCH PRN TOPICAL 02/01/17 16:15 02/06/17 16:07 (Cardizem) 60 mg QID PO 02/02/17 13:00 02/05/17 08:39 (Roxicodone) 10 mg Q4H PRN PO 02/02/17 12:45 02/04/17 01:29 (Ecotrin Ec) 81 mg DAILY PO 02/03/17 12:00 02/05/17 08:39 (Librium) 25 mg Q6H PO 02/04/17 14:00 02/05/17 08:39 A/P Problem List: (1) Atrial fibrillation with RVR ICD Code: I48.91 Status: Resolved (2) Alcohol intoxication ICD Code: F10.929 Status: Acute Assessment and Plan A Fib with RVR Acute on chronic. Converted to normal sinus rhythm. Rate controlled 02/05. - d/c Cardizem drip. - continue PO Cardizem. - telemetry. - treat underlying withdrawal. - continue baby ASA. Acute respiratory failure The patient is requiring increasing amounts of nasal cannula. He describes choking on food, so aspiration is a concern. He has a history of COPD. CXR with small effusions. Lungs clear at this time. Currently saturating above 90% on room air. - diet per ST. - Duo nebs standing and as needed. - Oxygen as needed. Wean as tolerated. - Changed Lopressor to diltiazem as may be exacerbating COPD. - Incentive spirometry. Alcohol intoxication History of seizure with withdrawals. Alcohol level 256. Improved. - CIWA protocol. Standing Librium added. Wean as tolerated. Decreased to 25 mg TID 02/05. - Seizure precaution, neurochecks. - Multivitamin, folic acid and thiamine daily - Pantoprazole 40 mg. - patient counselled on EtOH abuse encouraged to abstain. Atypical chest pain Most likely costochondritis as CP is quite reproducible on exam. EKG with A fib. Trops negative. Resolved. - pain control as needed. - telemetry. Noncompliance Patient admits to skipping his medications recently. - Patient counselled. Thrombocytopenia Currently counts currently around baseline. - continue to monitor. DVT prophylaxis with SCDs Discharge Planning Transfer to floor. Anticipate discharge home in 1-2 days Problem Qualifiers (1) Alcohol intoxication: Qualified Code: F10.920 - Alcohol intoxication, uncomplicated Kenneth Woodall DO Feb 05, 2017 09:32
[2017-02-05] MEDS: LORazepam 1 MG TAB PO PRN ×2 (13:30→18:44)
[2017-02-06] VITALS (12 sets, daily range): BP systolic 134–154; BP diastolic 81–110; PULSE 69–86; RESP 17–20; TEMP 97.6–98.3; O2SAT 93–98
[2017-02-06] MEDS: CHLORHEXIDINE GLUCONATE 2 % 1 PACK (2 CLOTHS)(taper/protocol) TOPICAL SCH (03:05)
[2017-02-06] MEDS: LORazepam 1 MG TAB PO PRN ×2 (04:52→22:00)
[2017-02-06] MEDS: RESP: ALBUTEROL 2.5 MG/IPRATROPIUM 0.5 MG NEB (SCH) NEB ×2 (08:13→12:16)
[2017-02-06] MEDS: PANTOPRAZOLE SOD 40 MG DELAYED RELEASE TAB PO SCH (08:18)
[2017-02-06] MEDS: THIAMINE HCL 100 MG TAB PO SCH (08:18)
[2017-02-06] MEDS: chlordiazePOXIDE 25 MG CAP PO SCH ×3 (08:18→17:37)
[2017-02-06] MEDS: DOCUSATE SODIUM 100 MG CAP PO SCH ×2 (08:18→20:25)
[2017-02-06] MEDS: DILTIAZEM HCL 60 MG TAB PO SCH (08:19)
[2017-02-06] MEDS: ASPIRIN EC 81 MG TABEC PO SCH (08:19)
[2017-02-06] MEDS: SODIUM CHLORIDE 0.9% FLUSH 10 ML FLUSH IV FLUSH SCH ×2 (08:19→20:25)
--- NOTE | 2017-02-06 10:19 | HHI.PR ---
Subjective Remarks The pt was shaky on ambulation. He still has tremors. He has left shoulder pain. He is breathing well. Discussed with nursing. Objective Vitals Vital Signs Date Time Temp Pulse Resp B/P Pulse Ox O2 Delivery O2 Flow Rate FiO2 02/06/17 08:00 97.9 69 20 149/110 98 02/06/17 07:36 80 02/06/17 04:00 98.0 77 17 134/91 93 02/06/17 01:22 20 02/06/17 00:00 98.3 84 18 148/81 93 02/05/17 22:07 98.7 84 18 173/78 95 02/05/17 16:00 98.3 81 20 156/107 93 02/05/17 16:00 169/108 02/05/17 16:00 158/104 02/05/17 12:05 97.7 81 20 195/85 98 I/O 02/05/17 02/05/17 02/05/17 02/06/17 02/06/17 02/06/17 07:00 15:00 23:00 07:00 15:00 23:00 Intake Total 480 ml 480 ml 244 ml Output Total 680 ml 1175 ml Balance -200 ml -1175 ml 480 ml 244 ml Intake Oral 480 ml 480 ml 240 ml IV Total 4 ml Output Urine Total 680 ml 1175 ml # Voids 2 1 2 # Bowel Movements 0 2 Result Diagram: 02/05/17 0519 02/05/17 0519 Imaging Last Impressions Chest X-Ray 02/02/17 0000 Signed Impressions: Service Date/Time: Thursday, February 02, 2017 12:57 - CONCLUSION: 1. Basilar airspace disease with small effusions. Differential diagnosis includes mild congestive heart failure. There is cardiomegaly. Findings are new since December 30. Obed Chadwick MD Objective Remarks GENERAL: This is a well-nourished, well-developed patient, NAD. SKIN: No rashes, ecchymoses or lesions. Cool and dry. HEAD: Atraumatic. Normocephalic. No temporal or scalp tenderness. EYES: Extraocular motions intact. No scleral icterus. No injection or drainage. CARDIOVASCULAR: Regular rate and rhythm. No murmurs. RESPIRATORY: Clear to auscultation bilaterally. No wheezes, rales or rhonchi. GASTROINTESTINAL: Abdomen soft, non-tender, nondistended. MUSCULOSKELETAL: Extremities without clubbing, cyanosis, or edema. No effusion or edema noted. Tender left shoulder to palpation. ROM is intact. NEUROLOGICAL: Slight tremors. Awake and alert. Motor and sensory grossly within normal limits. 4 out of 5 muscle strength in all muscle groups. Normal speech. PSYCH: Mood and affect appropriate. Medications and IVs Current Medications Medications (Trade) Dose Ordered Sig/Candy Route Start Time Stop Time Status Last Admin (NS Flush) 2 ml UNSCH PRN IV FLUSH 02/01/17 03:30 (NS Flush) 2 ml BID IV FLUSH 02/01/17 09:00 02/06/17 08:19 (Narcan Inj) 0.4 mg UNSCH PRN IV 02/01/17 03:30 (Vitamin B1) 100 mg DAILY PO 02/01/17 09:00 02/06/17 08:18 (Zofran Inj) 4 mg Q6H PRN IV 02/01/17 04:00 02/02/17 09:22 (Protonix) 40 mg DAILY PO 02/01/17 09:00 02/06/17 08:18 (Romazicon Inj) 0.2 mg Q1M PRN IV PUSH 02/01/17 04:00 (Ativan) 1 mg Q4H PRN PO 02/01/17 04:00 02/06/17 04:52 (Ativan Inj) 1 mg Q4H PRN IV PUSH 02/01/17 04:00 (Ativan) 2 mg Q2H PRN PO 02/01/17 04:00 02/05/17 22:41 (Ativan Inj) 2 mg Q2H PRN IV PUSH 02/01/17 04:00 02/04/17 22:47 (Ativan Inj) 2 mg Q1H PRN IV PUSH 02/01/17 04:00 02/04/17 09:38 (Ativan Inj) 2 mg Q15M PRN IV PUSH 02/01/17 04:00 02/02/17 20:35 (Roxicodone) 5 mg Q4H PRN PO 02/01/17 14:00 02/02/17 11:20 (Colace) 100 mg BID PO 02/01/17 21:00 02/06/17 08:18 (Pill Splitter) 1 ea UNSCH PRN OTHER 02/01/17 14:15 Miscellaneous Information Patient in critical care unit? Ass... Q361D .XX 02/01/17 16:15 (Chlorhexidine 2% Cloth) 3 pack UNSCH PRN TOPICAL 02/01/17 16:15 02/06/17 16:07 (Cardizem) 60 mg QID PO 02/02/17 13:00 02/06/17 08:19 (Roxicodone) 10 mg Q4H PRN PO 02/02/17 12:45 02/06/17 08:18 (Ecotrin Ec) 81 mg DAILY PO 02/03/17 12:00 02/06/17 08:19 (Librium) 25 mg TID PO 02/05/17 13:00 02/06/17 08:18 (Milk Of [place] Liq) 30 ml DAILY PRN PO 02/05/17 09:30 (Catapres) 0.1 mg Q6H PRN PO 02/05/17 17:30 A/P Problem List: (1) Atrial fibrillation with RVR ICD Code: I48.91 Status: Resolved (2) Alcohol intoxication ICD Code: F10.929 Status: Acute Assessment and Plan A Fib with RVR Acute on chronic. Converted to normal sinus rhythm. Rate controlled 02/06. - d/c Cardizem drip. - continue PO Cardizem. Change to long acting. - telemetry. - treat underlying withdrawal. - continue baby ASA. Acute respiratory failure The patient is requiring increasing amounts of nasal cannula. He describes choking on food, so aspiration is a concern. He has a history of COPD. CXR with small effusions. Lungs clear at this time. Currently saturating above 90% on room air. - diet per ST. - Duo nebs as needed. - Oxygen as needed. Wean as tolerated. - Changed Lopressor to diltiazem as may be exacerbating COPD. - Incentive spirometry. Alcohol intoxication History of seizure with withdrawals. Alcohol level 256. Improved. - CIWA protocol. Standing Librium added. Wean as tolerated. Decreased to 25 mg TID 02/05. - Seizure precaution, neurochecks. - Multivitamin, folic acid and thiamine daily - Pantoprazole 40 mg. - patient counselled on EtOH abuse encouraged to abstain. Atypical chest pain/ Left shoulder pain Most likely costochondritis as CP is quite reproducible on exam. EKG with A fib. Trops negative. Now complaining of left shoulder pain. - pain control as needed. - telemetry. - PT. HTN Diastolic has been quite high. - continue Cardizem. - add lisinopril 10 mg daily. - clonidine as needed. Noncompliance Patient admits to skipping his medications recently. - Patient counselled. Thrombocytopenia Currently counts currently around baseline. - continue to monitor. DVT prophylaxis with SCDs Discharge Planning Anticipate discharge home in 1-2 days, still shaky and weak Problem Qualifiers (1) Alcohol intoxication: Qualified Code: F10.920 - Alcohol intoxication, uncomplicated Kenneth Woodall DO Feb 06, 2017 10:19
[2017-02-06] MEDS: LISINOPRIL 10 MG TAB PO SCH (11:29)
[2017-02-07] VITALS (8 sets, daily range): BP systolic 134–161; BP diastolic 83–111; PULSE 72–87; RESP 18–20; TEMP 97.4–98.9; O2SAT 94–97
[2017-02-07] MEDS: LORazepam 1 MG TAB PO PRN ×3 (02:49→21:04)
[2017-02-07] MEDS: PANTOPRAZOLE SOD 40 MG DELAYED RELEASE TAB PO SCH (08:40)
[2017-02-07] MEDS: chlordiazePOXIDE 25 MG CAP PO SCH ×3 (08:40→17:56)
[2017-02-07] MEDS: LISINOPRIL 10 MG TAB PO SCH (08:40)
[2017-02-07] MEDS: SODIUM CHLORIDE 0.9% FLUSH 10 ML FLUSH IV FLUSH SCH ×2 (08:40→20:53)
[2017-02-07] MEDS: DILTIAZEM-CD 240 MG CAP ER PO SCH (08:41)
[2017-02-07] MEDS: ASPIRIN EC 81 MG TABEC PO SCH (08:41)
[2017-02-07] MEDS: DOCUSATE SODIUM 100 MG CAP PO SCH ×2 (08:41→20:53)
[2017-02-07] MEDS: THIAMINE HCL 100 MG TAB PO SCH (08:41)
--- NOTE | 2017-02-07 16:35 | HHI.PR ---
Subjective Remarks Mild delirium tremens symptoms persist. Patient has no acute changes or worsening of his symptoms. No diarrhea or nausea or vomiting. Objective Vital Signs Date Time Temp Pulse Resp B/P Pulse Ox O2 Delivery O2 Flow Rate FiO2 02/07/17 12:00 97.8 80 20 134/83 94 02/07/17 11:05 94 02/07/17 10:00 87 02/07/17 08:00 97.8 85 20 151/87 94 02/07/17 04:00 97.7 86 20 151/111 96 02/07/17 00:00 98.8 82 18 161/99 97 02/06/17 21:58 93 21 02/06/17 21:28 77 154/97 02/06/17 20:15 81 02/06/17 20:00 98.0 86 20 94 I/O 02/06/17 02/06/17 02/06/17 02/07/17 02/07/17 02/07/17 07:00 15:00 23:00 07:00 15:00 23:00 Intake Total 244 ml 960 ml 600 ml 0 ml 960 ml Output Total 1000 ml Balance 244 ml -40 ml 600 ml 0 ml 960 ml Intake Oral 240 ml 960 ml 600 ml 0 ml 960 ml IV Total 4 ml 0 ml Output Urine Total 1000 ml # Voids 2 1 0 3 # Bowel Movements 2 0 0 1 Result Diagram: 02/05/1751802/05/17518 Objective Remarks GENERAL: NAD, A&Ox3, mild global tremor HEAD: Normocephalic. NECK: Supple, trachea midline. No lymphadenopathy. EYES: No scleral icterus. No injection or drainage. CARDIOVASCULAR: Regular rate and rhythm without murmurs, gallops, or rubs. RESPIRATORY: Breath sounds equal bilaterally. No accessory muscle use. GASTROINTESTINAL: Abdomen soft, non-tender, nondistended. MUSCULOSKELETAL: No cyanosis, or edema. SKIN: Warm and dry. NEURO: No focal neurological deficitis. Medications and IVs Administered Medications Medications (Trade) Dose Ordered Sig/Candy Route PRN Reason Start Time Stop Time Status Last Admin Dose Admin Sodium Chloride (NS Flush) 2 ml BID IV FLUSH 02/01/17 09:00 02/07/17 08:40 Thiamine HCl (Vitamin B1) 100 mg DAILY PO 02/01/17 09:00 02/07/17 08:41 Ondansetron HCl (Zofran Inj) 4 mg Q6H PRN IV NAUSEA OR VOMITING 02/01/17 04:00 02/02/17 09:22 Pantoprazole Sodium (Protonix) 40 mg DAILY PO 02/01/17 09:00 02/07/17 08:40 Lorazepam (Ativan) 1 mg Q4H PRN PO CIWA 8 - 10 02/01/17 04:00 02/07/17 02:49 Lorazepam (Ativan Inj) 1 mg Q4H PRN IV PUSH CIWA 8 - 10 02/01/17 04:00 02/06/17 12:14 Lorazepam (Ativan) 2 mg Q2H PRN PO CIWA 11-14 02/01/17 04:00 02/05/17 22:41 Lorazepam (Ativan Inj) 2 mg Q2H PRN IV PUSH CIWA 11-14 02/01/17 04:00 02/04/17 22:47 Lorazepam (Ativan Inj) 2 mg Q1H PRN IV PUSH CIWA 15-20 02/01/17 04:00 02/04/17 09:38 Lorazepam (Ativan Inj) 2 mg Q15M PRN IV PUSH CIWA > 20 02/01/17 04:00 02/02/17 20:35 Oxycodone HCl (Roxicodone) 5 mg Q4H PRN PO pain 3-10 02/01/17 14:00 02/07/17 11:30 Docusate Sodium (Colace) 100 mg BID PO 02/01/17 21:00 02/07/17 08:41 Aspirin (Ecotrin Ec) 81 mg DAILY PO 02/03/17 12:00 02/07/17 08:41 Chlordiazepoxide (Librium) 25 mg TID PO 02/05/17 13:00 02/07/17 13:58 Diltiazem HCl (Cardizem Cd) 240 mg DAILY PO 02/07/17 09:00 02/07/17 08:41 Lisinopril (Prinivil) 10 mg DAILY PO 02/06/17 10:15 02/07/17 08:40 A/P Problem List: (1) Atrial fibrillation with RVR ICD Code: I48.91 (2) Alcohol intoxication ICD Code: F10.929 (3) Alcohol withdrawal ICD Code: F10.239 Assessment and Plan Assessment and Plan 61-year-old male admitted with A. fib RVR and alcohol withdrawal. A Fib with RVR RVR has resolved Rate controlled since yesterday Continue by mouth Cardizem Follow on telemetry Likely triggered by alcohol withdrawal Continue daily aspirin Acute respiratory failure COPD Improved Now off oxygen When necessary duo nebs Incentive spirometry Delirium tremens Alcoholism Continue [place] protocol Wean Librium as tolerated, now at 10 mg by mouth 3 times a day Multivitamin Folic acid Thiamine Pantoprazole daily HTN As needed clonidine Lisinopril Cardizem Follow blood pressure Thrombocytopenia Alcohol-related Follow CBC DVT prophylaxis SCDs Discharge Planning Delirium tremens must be resolved and patient was weaned off Librium prior to discharge. Problem Qualifiers (1) Alcohol intoxication: Qualified Code: F10.920 - Alcohol intoxication, uncomplicated Jai Valle MD Feb 07, 2017 4:35 pm
[2017-02-08] VITALS (10 sets, daily range): BP systolic 129–192; BP diastolic 74–115; PULSE 71–141; RESP 18–20; TEMP 96–98.6; O2SAT 94–100
[2017-02-08] MEDS: LORazepam 2 MG TAB PO PRN ×2 (00:11→03:42)
[2017-02-08] MEDS: cloNIDine HCL 0.1 MG TAB PO PRN ×2 (01:20→17:55)
[2017-02-08] MEDS: chlordiazePOXIDE 25 MG CAP PO SCH (09:00)
[2017-02-08] MEDS: LISINOPRIL 10 MG TAB PO SCH (09:42)
[2017-02-08] MEDS: ASPIRIN EC 81 MG TABEC PO SCH (09:42)
[2017-02-08] MEDS: DILTIAZEM-CD 240 MG CAP ER PO SCH (09:42)
[2017-02-08] MEDS: THIAMINE HCL 100 MG TAB PO SCH (09:42)
[2017-02-08] MEDS: DOCUSATE SODIUM 100 MG CAP PO SCH ×2 (09:43→22:34)
[2017-02-08] MEDS: PANTOPRAZOLE SOD 40 MG DELAYED RELEASE TAB PO SCH (09:43)
[2017-02-08] MEDS: SODIUM CHLORIDE 0.9% FLUSH 10 ML FLUSH IV FLUSH SCH ×2 (09:44→22:35)
--- NOTE | 2017-02-08 14:04 | HHI.PR ---
Subjective Remarks Follow-up for DTs Patient was found sound sleep in bed but was able to wake up. Per patient's nurse he has been sleeping a lot. Patient complains. He denies any nausea, vomit, or dominant pain. Patient stated that he does not have an appetite. Denies any tremors Patient deny any hallucinations. Objective Vitals Vital Signs Date Time Temp Pulse Resp B/P Pulse Ox O2 Delivery O2 Flow Rate FiO2 02/08/17 12:00 97.0 77 18 159/83 94 02/08/17 08:00 98.6 76 18 140/86 97 02/08/17 04:00 98.3 73 18 161/113 96 02/08/17 03:45 141 02/08/17 02:30 71 149/74 02/08/17 01:10 98.6 80 20 192/112 100 02/08/17 00:00 98.5 79 19 170/115 100 02/07/17 20:00 98.9 79 18 143/93 95 02/07/17 20:00 72 02/07/17 17:22 21 02/07/17 16:00 97.4 86 20 147/90 97 I/O 02/07/17 02/07/17 02/07/17 02/08/17 02/08/17 02/08/17 07:00 15:00 23:00 07:00 15:00 23:00 Intake Total 0 ml 960 ml 240 ml 240 ml Balance 0 ml 960 ml 240 ml 240 ml Intake Oral 0 ml 960 ml 240 ml 240 ml IV Total 0 ml # Voids 0 3 5 5 # Bowel Movements 0 1 1 Result Diagram: 02/05/1719 02/05/17518 Objective Remarks GENERAL: In no acute distress but does have a bad order SKIN: Warm and dry. HEAD: Normocephalic. EYES: No scleral icterus. No injection or drainage. NECK: Supple, trachea midline. No JVD or lymphadenopathy. CARDIOVASCULAR: Regular rate and rhythm without murmurs, gallops, or rubs. RESPIRATORY: Breath sounds equal bilaterally. No accessory muscle use. GASTROINTESTINAL: Abdomen soft, non-tender, nondistended. MUSCULOSKELETAL: No cyanosis, or edema. BACK: Nontender without obvious deformity. No CVA tenderness. Medications and IVs Current Medications Sodium Chloride (NS 1000 ml Inj) 1,000 ml @ 2,000 mls/hr Q30M ONCE IV Last administered on 02/01/17 02:48; Start 02/01/17 at 02:30; Stop 02/01/17 at 02:59 ; Status DC Diltiazem HCl (Cardizem Inj) 20 mg ONCE ONCE IV Last administered on 02:47; Start 02/01/17 at 02:30; Stop 02/01/17 at 02:31; Status DC Diltiazem HCl (Cardizem Inj) 20 mg ONCE ONCE IV Last administered on 02:59; Start 02/01/17 at 03:00; Stop 02/01/17 at 03:01; Status DC Sodium Chloride (NS Flush) 2 ml UNSCH PRN IV FLUSH FLUSH AFTER USING IV ACCESS ; Start 02/01/17 at 03:30 Sodium Chloride (NS Flush) 2 ml BID IV FLUSH Last administered on 02/08/17 09: 44; Start 02/01/17 at 09:00 Naloxone HCl (Narcan Inj) 0.4 mg UNSCH PRN IV SEE LABEL COMMENTS; Start at 03:30 Folic Acid (Folate) 1 mg DAILY PO Last administered on 02/05/17 08:39; Start 02/01/17 at 09:00; Stop 02/06/17 at 08:59; Status DC Thiamine HCl (Vitamin B1) 100 mg DAILY PO Last administered on 02/08/17 09:42 ; Start 02/01/17 at 09:00 Multivitamins/ Minerals Therapeutic (Theragran M Tab) 1 tab DAILY PO Last administered on 02/05/17 08:39; Start 02/01/17 at 09:00; Stop 02/06/17 at 08:59 ; Status DC Ondansetron HCl (Zofran Inj) 4 mg Q6H PRN IV NAUSEA OR VOMITING Last administered on 02/02/17 09:22; Start 02/01/17 at 04:00 Pantoprazole Sodium (Protonix) 40 mg DAILY PO Last administered on 02/08/17 09 :43; Start 02/01/17 at 09:00 Flumazenil (Romazicon Inj) 0.2 mg Q1M PRN IV PUSH SEE LABEL COMMENTS; Start at 04:00 Lorazepam (Ativan) 1 mg Q4H PRN PO CIWA 8 - 10 Last administered on 02/07/17 21:04; Start 02/01/17 at 04:00 Lorazepam (Ativan Inj) 1 mg Q4H PRN IV PUSH CIWA 8 - 10 Last administered on 12:14; Start 02/01/17 at 04:00 Lorazepam (Ativan) 2 mg Q2H PRN PO CIWA 11-14 Last administered on 02/08/17 03 :42; Start 02/01/17 at 04:00 Lorazepam (Ativan Inj) 2 mg Q2H PRN IV PUSH CIWA 11-14 Last administered on 22:47; Start 02/01/17 at 04:00 Lorazepam (Ativan Inj) 2 mg Q1H PRN IV PUSH CIWA 15-20 Last administered on 09:38; Start 02/01/17 at 04:00 Lorazepam 2 mg 2 mg Q15M PRN IV PUSH CIWA > 20 Last administered on 02/02/17 20:35; Start 02/01/17 at 04:00 Calcium Gluconate 1 gm/Dextrose 110 ml @ 110 mls/hr ONCE ONCE IV Last administered on 02/01/17 04:23; Start 02/01/17 at 04:00; Stop 02/01/17 at 04:59 ; Status DC Diltiazem HCl/ Sodium Chloride (Cardizem Inj/NS Inj) 125 ml @ 0 mls/hr TITRATE IV Last administered on 02/03/17 06:07; Start 02/01/17 at 05:30; Stop at 09:23; Status DC Morphine Sulfate (Morphine Inj) 2 mg ONCE ONCE IV PUSH Last administered on 05:40; Start 02/01/17 at 05:30; Stop 02/01/17 at 05:31; Status DC Potassium Chloride (KCl) 40 meq Q4HR PO Last administered on 02/01/17 14:56; Start 02/01/17 at 12:00; Stop 02/01/17 at 16:01; Status DC Metoprolol Tartrate (Lopressor) 50 mg Q12HR PO Last administered on 02/01/17 09:08; Start 02/01/17 at 09:00; Stop 02/01/17 at 13:49; Status DC Oxycodone HCl (Roxicodone) 5 mg Q4H PRN PO pain 3-10 Last administered on 02:00; Start 02/01/17 at 14:00 Docusate Sodium (Colace) 100 mg BID PO Last administered on 02/08/17 09:43; Start 02/01/17 at 21:00 Metoprolol Tartrate (Lopressor) 75 mg Q12HR PO Last administered on 02/02/17 09:22; Start 02/01/17 at 21:00; Stop 02/02/17 at 12:31; Status DC Metoprolol Tartrate (Lopressor) 25 mg ONCE ONCE PO Last administered on 14:56; Start 02/01/17 at 15:00; Stop 02/01/17 at 15:01; Status DC Miscellaneous (Pill Splitter) 1 ea UNSCH PRN OTHER SEE LABEL COMMENTS; Start at 14:15 Miscellaneous Information Patient in critical care unit? Ass... [id number] .[id number] ; Start 02/01/17 at 16:15 Chlorhexidine Gluconate (Chlorhexidine 2% Cloth) 3 pack DAILY@04 TOPICAL Last administered on 02/04/17 04:00; Start 02/02/17 at 04:00; Stop 02/06/17 at 04:01 ; Status DC Chlorhexidine Gluconate (Chlorhexidine 2% Cloth) 3 pack UNSCH PRN TOPICAL HYGIENIC CARE; Start 02/01/17 at 16:15; Stop 02/06/17 at 16:07; Status DC Chlordiazepoxide (Librium) 25 mg TID PO Last administered on 02/02/17 12:19; Start 02/01/17 at 18:00; Stop 02/02/17 at 13:46; Status DC Albuterol/ Ipratropium 1 ampule 1 ampule Q4HR NEB PRN NEB SHORTNESS OF BREATH Last administered on 02/02/17 00:15; Start 02/01/17 at 23:45; Stop 02/02/17 at 12:32; Status DC Magnesium Sulfate/ Dextrose (Magnesium Sulfate 1 Gm Premix) 100 ml @ 100 mls/ hr Q1H IV Last administered on 02/02/17 12:19; Start 02/02/17 at 10:00; Stop 02/02/17 at 11:59; Status DC Albuterol/ Ipratropium (Duoneb Neb) 1 ampule Q2HR NEB PRN NEB SHORTNESS OF BREATH; Start 02/02/17 at 14:00 Albuterol/ Ipratropium (Duoneb Neb) 1 ampule Q6HR WHILE AWAKE NEB NEB Last administered on 02/06/17 12:16; Start 02/02/17 at 14:00; Stop 02/06/17 at 14:00 ; Status DC Diltiazem HCl (Cardizem) 60 mg QID PO Last administered on 02/06/17 08:19; Start 02/02/17 at 13:00; Stop 02/06/17 at 10:06; Status DC Oxycodone HCl (Roxicodone) 10 mg Q4H PRN PO pain 6-10 Last administered on 02/06 08:18; Start 02/02/17 at 12:45; Stop 02/06/17 at 10:09; Status DC Chlordiazepoxide (Librium) 50 mg Q6H PO Last administered on 02/04/17 07:39; Start 02/02/17 at 14:00; Stop 02/04/17 at 13:15; Status DC Chlordiazepoxide 25 mg 25 mg ONCE PRN PO SEVERE ANXIETY OR AGITATION; Start at 13:45; Stop 02/02/17 at 14:08; Status DC Magnesium Sulfate/ Dextrose (Magnesium Sulfate 1 Gm Premix) 100 ml @ 100 mls/ hr Q1H IV Last administered on 02/03/17 11:01; Start 02/03/17 at 11:00; Stop 02/03/17 at 12:00; Status DC Aspirin (Ecotrin Ec) 81 mg DAILY PO Last administered on 02/08/17 09:42; Start 02/03/17 at 12:00 Chlordiazepoxide (Librium) 25 mg Q6H PO Last administered on 02/05/17 08:39; Start 02/04/17 at 14:00; Stop 02/05/17 at 09:29; Status DC Chlordiazepoxide (Librium) 25 mg TID PO Last administered on 02/07/17 13:58; Start 02/05/17 at 13:00; Stop 02/07/17 at 16:29; Status DC Magnesium Hydroxide (Milk Of Magnesia Liq) 30 ml ONCE ONCE PO Last administered on 02/05/17 09:51; Start 02/05/17 at 09:30; Stop 02/05/17 at 09:32 ; Status DC Magnesium Hydroxide (Milk Of Magnesia Liq) 30 ml DAILY PRN PO Constipation; Start 02/05/17 at 09:30 Clonidine (Catapres) 0.1 mg Q6H PRN PO SBP> OR = 180, DBP> OR = 100 Last administered on 02/08/17 01:20; Start 02/05/17 at 17:30 Diltiazem HCl (Cardizem Cd) 240 mg DAILY PO Last administered on 02/08/17 09: 42; Start 02/07/17 at 09:00 Lisinopril (Prinivil) 10 mg DAILY PO Last administered on 02/08/17 09:42; Start 02/06/17 at 10:15 Chlordiazepoxide (Librium) 10 mg TID PO Last administered on 02/08/17 09:00; Start 02/07/17 at 18:00; Stop 02/08/17 at 12:18; Status DC A/P Problem List: (1) Atrial fibrillation with RVR ICD Code: I48.91 Status: Resolved (2) Alcohol intoxication ICD Code: F10.929 Status: Acute Assessment and Plan 61-year-old male admitted with A. fib RVR and alcohol withdrawal. A Fib with RVR RVR has resolved Rate controlled since yesterday Continue by mouth Cardizem Follow on telemetry Likely triggered by alcohol withdrawal Continue daily aspirin Acute respiratory failure COPD Improved Now off oxygen When necessary duo nebs Incentive spirometry Delirium tremens Alcoholism Multivitamin Folic acid Thiamine Patient has no sign of alcohol withdrawal or DTs. Currently is on Librium 10 mg 3 times a day can discontinue that. HTN As needed clonidine Lisinopril Cardizem Follow blood pressure Thrombocytopenia Alcohol-related Follow CBC DVT prophylaxis SCDs Discharge Planning Patient is sleeping the majority of the time and has no signs of DTs/alcohol withdrawals so will DC Librium since he is on a low dose and see how patient does off the Librium. If there is no signs of alcohol withdrawals he can be discharged to home. Anticipate discharge tomorrow. Problem Qualifiers (1) Alcohol intoxication: Qualified Code: F10.920 - Alcohol intoxication, uncomplicated Sheila Sylvester MD Feb 08, 2017 14:04
[2017-02-09] VITALS: BP 153/97; PULSE 76; RESP 20; TEMP 98.4; O2SAT 98
[2017-02-09] MEDS ORDERED: TEMAZEPAM 15 MG CAP PO ONE
[2017-02-09 04:00] VITALS: BP 124/75; PULSE 78; RESP 18; TEMP 98.2; O2SAT 94
[2017-02-09] MEDS: PANTOPRAZOLE SOD 40 MG DELAYED RELEASE TAB PO SCH (08:33)
[2017-02-09] MEDS: DOCUSATE SODIUM 100 MG CAP PO SCH (08:33)
[2017-02-09] MEDS: THIAMINE HCL 100 MG TAB PO SCH (08:33)
[2017-02-09] MEDS: ASPIRIN EC 81 MG TABEC PO SCH (08:33)
[2017-02-09] MEDS: DILTIAZEM-CD 240 MG CAP ER PO SCH (08:33)
[2017-02-09] MEDS: LISINOPRIL 10 MG TAB PO SCH (08:33)
[2017-02-09] MEDS: SODIUM CHLORIDE 0.9% FLUSH 10 ML FLUSH IV FLUSH SCH (09:21)
[2017-02-09 09:23] VITALS: BP 137/72; PULSE 78; RESP 20; TEMP 97.7; O2SAT 93
[2017-02-09 12:00] VITALS: BP 147/82; PULSE 74; RESP 20; TEMP 97.6; O2SAT 94
[2017-02-09 13:02] VITALS: PULSE 73
[2017-02-09] MEDS ORDERED: CARD240C6 PO (14:42)
[2017-02-09] MEDS ORDERED: LISI10TA3 PO (14:42)
--- NOTE | 2017-02-09 14:43 | HHI.DCPOC ---
Discharge Care Plan Diagnosis: (1) A-fib (2) Alcohol intoxication (3) Alcohol withdrawal Goals to Promote Your Health * To prevent worsening of your condition and complications * To maintain your health at the optimal level Directions to Meet Your Goals Take your medications as prescribed Follow your dietary instruction Follow activity as directed Keep your appointments as scheduled Take your immunizations and boosters as scheduled If your symptoms worsen call your PCP, if no PCP go to Urgent Care Center or Emergency Room Smoking is Dangerous to Your Health. Avoid second hand smoke Call the 24-hour hour crisis hotline for domestic abuse at Sheila Sylvester MD Feb 09, 2017 14:43
--- NOTE | 2017-02-09 14:44 | HHI.DS ---
Discharge Summary Admission Date Feb 01, 2017 at 03:23 Admitting Diagnosis Afib with RVR, alcohol intox (1) Atrial fibrillation with RVR ICD Code: I48.91 (2) Alcohol intoxication ICD Code: F10.929 Brief History - From Admission Written by Ifrah Martínez, acting as scribe for Dr. Oropeza on 02/01/17 at 03: 56. Patient is a 61-year-old male with primary medical history of HTN, A. fib, anxiety, depression, EtOH, CHF, seizure from alcohol withdrawal. Patient is currently intoxicated and appears to be a poor historian and information gathered from patient as well as prior computerized charting. Patient was witnessed walking around a local [employer] and stumbling bystander called 911. Patient brought to the emergency department found to be in atrial fibrillation with rapid ventricular rate of 163 bpm. Patient complains of chest pain and palpitations. Patient reports that the chest pain feels like a tight sensation and radiates to his legs and up to his neck. Patient is not sure what makes chest pain better or worse. Patient also reports for the last few days he feels as though his more short of breath than normal. Patient reports occasional nausea as well as vomiting. Patient denies black stool, red stool, blood present in urine, blood present vomit, coffee ground emesis or diarrhea. EKG reviewed and reveals A Fib with RVR rate 163 bpm CBC/BMP: 02/05/17 0519 02/05/17 0519 PE at Discharge GENERAL: In no acute distress but does have a bad order SKIN: Warm and dry. HEAD: Normocephalic. EYES: No scleral icterus. No injection or drainage. NECK: Supple, trachea midline. No JVD or lymphadenopathy. CARDIOVASCULAR: Regular rate and rhythm without murmurs, gallops, or rubs. RESPIRATORY: Breath sounds equal bilaterally. No accessory muscle use. GASTROINTESTINAL: Abdomen soft, non-tender, nondistended. MUSCULOSKELETAL: No cyanosis, or edema. BACK: Nontender without obvious deformity. No CVA tenderness. Pt Condition on Discharge: Good Discharge Disposition: Discharge Home Discharge Instructions DIET: Follow Instructions for: Heart Healthy Diet Activities you can perform: Regular-No Restrictions Sheila Sylvester MD Feb 09, 2017 14:44
== END 2017-02-09 15:59 | disposition home or self-care (01) | DRG 308 ==
LOC: NEPC 02:09 → NEDA 03:23 → HIME 08:55 → N04A 02-05 12:05
PROVIDERS: ADMIT Family Medicine; ATTEND Family Medicine
DX: I48.91 Unspecified atrial fibrillation (principal); J96.00 Acute respiratory failure, unspecified whether with hypoxia or hypercapnia; F10.231 Alcohol dependence with withdrawal delirium; D69.6 Thrombocytopenia, unspecified; I11.0 Hypertensive heart disease with heart failure; I50.9 Heart failure, unspecified; E83.51 Hypocalcemia; J44.9 Chronic obstructive pulmonary disease, unspecified; K59.00 Constipation, unspecified; M94.0 Chondrocostal junction syndrome [Tietze]; Y90.8 Blood alcohol level of 240 mg/100 ml or more; Z87.442 Personal history of urinary calculi; Z91.19 Patient's noncompliance with other medical treatment and regimen
CPT/HCPCS: 71010; 76937; 80048; 80076; 80307; 82948; 83735; 83880; 84100; 84155; 84443; 84484; 85025; 85027; 85610; 85730; 87641; 93005; 94150; 94620; 94640; 94664; 96361; 96374; J0610; J2060; J2270; J2405; J3475; J7030

== ENCOUNTER 2017-02-10 22:26 | Emergency (ER) | payer MEDICAID ==
[~2017-02-10] VITALS: Ht 188 cm; Wt 90.0 kg
[~2017-02-10 22:26] MED LIST changes: -AMLO10 PO; -CARA1TAB6 PO; +CARD240C6 PO; -CHLO10CA5 PO; -CHLO25CA9 PO; -CHLO5CAP4 PO; -FOLI1TAB6 PO; -GNP100TA3 PO; -LISI-515 PO; +LISI10TA3 PO; -METO-309 PO; -PANT40TA3 PO
--- NOTE | 2017-02-10 23:14 | PD ---
HPI Chief Complaint: intoxication Time Seen by Provider: 23:10 Travel History International Travel<30 days: No Contact w/Intl Traveler<30days: No Traveled to known affect area: No History of Present Illness HPI 61-year-old white male presents to emergency department for evaluation of alcohol intoxication. The patient was found by bystanders sleeping outside of the [employer] on the ground. EMS states that the patient was arousable and appeared heavily intoxicated. They brought him to the hospital due to his intoxication. Here the patient has no medical complaints. He does admit to drinking vodka. There is no meaningful history obtainable from the patient at this time due to his alcohol intoxication. There is no evidence of trauma. The patient was just discharged from the hospital today after being admitted for A. fib with RVR, alcohol intoxication and possible withdrawal seizure. PFSH Past Medical History Hx Anticoagulant Therapy: Yes (DVT-ASA) Arthritis: Yes (bursitis tendonitis) Asthma: No Atrial Fibrillation: Yes Autoimmune Disease: No Blood Disorders: No Anxiety: Yes Depression: Yes Heart Rhythm Problems: Yes (LBBB, afib RVR) Cancer: No Cardiac Catheterization: No Cardiovascular Problems: Yes (A FIB RVR, CHF, HTN left bundle branch) High Cholesterol: No Chest Pain: Yes Congestive Heart Failure: Yes COPD: Yes Cerebrovascular Accident: No Diabetes: No Diminished Hearing: No Endocrine: No Gastrointestinal Disorders: No Genitourinary: Yes (not urinating "a lot") Headaches: No Hypertension: Yes Immune Disorder: No Implanted Vascular Access Dvce: No Kidney Stones: Yes Musculoskeletal: Yes (many broken bones in the past) Neurologic: Yes (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) Psychiatric: No Reproductive: No Respiratory: Yes (COPD) Immunizations Current: Yes Migraines: No Seizures: Yes Shingles: Yes Sleep Apnea: No Ulcer: No Past Surgical History Abdominal Surgery: Yes (HERNIA REPAIR) Cardiac Surgery: No Coronary Artery Bypass Graft: No Ear Surgery: No Endocrine Surgery: No Eye Surgery: No Genitourinary Surgery: No Gynecologic Surgery: No Neurologic Surgery: No Oral Surgery: No Thoracic Surgery: No Tonsillectomy: Yes Other Surgery: Yes Social History Alcohol Use: Yes (1-2 PINTS DAILY VODKA) Tobacco Use: No Substance Use: Yes (Pain meds for many broekn bones ) Allergies-Medications (Allergen,Severity, Reaction): Coded Allergies: Keflex (Verified Allergy, Severe, hives, 02/01/17) Penicillin (Verified Allergy, Severe, hives, 02/01/17) Sulfa (Verified Allergy, Severe, hives, 02/01/17) Nitroglycerin (Verified Allergy, Mild, 02/01/17) vomit Reported Meds & Prescriptions Reported Meds & Active Scripts Active Lisinopril 10 Mg Tab 10 Mg PO DAILY Cardizem CD 24 HR (Diltiazem CD 24 HR) 240 Mg Caper 240 Mg PO DAILY Aspirin EC (Aspirin) 81 Mg Tabdr 81 Mg PO DAILY Review of Systems ROS Limitations: Intoxication Physical Exam Narrative GENERAL: This is a well-nourished, well-developed patient, in no apparent distress. Smells of EtOH appears heavily intoxicated. Slurred speech. SKIN: No rashes, ecchymoses or lesions. Warm and dry. HEAD: Atraumatic. Normocephalic. EYES: PERRL, EOMI, no discharge or injection. No scleral icterus. EARS: Clear NOSE: Nasal turbinates appear normal. THROAT: Mucosa pink and moist. Airway patent. NECK: Trachea midline. supple, moves head freely. LUNGS: Clear to auscultation. CV: Regular in rhythm. ABDOMEN: Soft nontender. EXT: No clubbing cyanosis or edema. MDM Medical Decision Making Medical Screen Exam Complete: Yes Emergency Medical Condition: Yes Medical Record Reviewed: Yes Differential Diagnosis Differential diagnoses: Alcohol intoxication, substance abuse, electrolyte abnormality, malingering Narrative Course The patient is alert but intoxicated. He falls asleep readily. He is arousable. His oxygen saturation is in the low 90s. He is placed on a monitor and given O2 by nasal cannula. He'll be monitored here in the ER until he exhibits sobriety and he may be discharged. This is alcohol intoxication Diagnosis Primary Impression: Alcohol intoxication Qualified Code: F10.920 - Alcohol intoxication, uncomplicated Additional Instructions: Rest. Increase fluids. Avoid alcohol. Avoid illegal substances. Follow-up with [facility] for detox. Do not operate a car or any heavy machinery under the influence of alcohol or drugs. Follow-up with a medical doctor this week. Return to the ER for emergencies Disposition: 01 DISCHARGE HOME Condition: Stable Obed To Feb 10, 2017 23:14
== END 2017-02-11 07:00 | disposition home or self-care (01) ==
LOC: NEPD 22:26
DX: F10.920 Alcohol use, unspecified with intoxication, uncomplicated (principal); I10 Essential (primary) hypertension; Z79.01 Long term (current) use of anticoagulants; Z87.39 Personal history of other diseases of the musculoskeletal system and connective tissue; Z86.79 Personal history of other diseases of the circulatory system; Z86.59 Personal history of other mental and behavioral disorders; Z87.09 Personal history of other diseases of the respiratory system; Z87.448 Personal history of other diseases of urinary system; Z86.69 Personal history of other diseases of the nervous system and sense organs
CPT/HCPCS: 99283

== ENCOUNTER 2017-02-13 19:49 | Observation (INO) | payer MEDICAID ==
[~2017-02-13] VITALS: Ht 177.8 cm; Wt 99.2 kg
[2017-02-13 19:54] VITALS: PULSE 116; RESP 18; O2SAT 97
[2017-02-13] MEDS ORDERED: SODIUM CHLOR 0.9% 250 ML INJ 250 ML IV ONE ×3 (20:00→21:30)
[2017-02-13] MEDS ORDERED: BACITRACIN TOP OINT 15 GM TUBE TOPICAL ONE (20:00)
[2017-02-13] MEDS ORDERED: TETANUS/DIPHTHERIA TOXOID ADULT 0.5 ML VIAL IM ONE (20:00)
[2017-02-13] MEDS ORDERED: ASPIRIN 325 MG TAB PO ONE (20:00)
[2017-02-13] MEDS ORDERED: SODIUM CHLORIDE 0.9% FLUSH 10 ML FLUSH IVF PRN (20:00)
--- NOTE | 2017-02-13 20:13 | PD ---
HPI Chief Complaint: Cardiac Complaint Time Seen by Provider: 19:59 Travel History International Travel<30 days: No Contact w/Intl Traveler<30days: No Traveled to known affect area: No History of Present Illness HPI This is a 61-year-old male patient with a past medical history of atrial fibrillation and heart failure chronic alcohol abuse dilated cardiomyopathy who presents via [facility] with a complaint of chest pain. She states chest pain is constant and located on the left anterior aspect of the chest wall and he radiates to the left shoulder. Patient notes associated shortness of breath and weakness. Patient denies lightheadedness dizziness nausea vomiting sweating. Patient was retrieved from [facility] and is said to be homeless per EMS. Patient admits to recent EtOH abuse but denies drug use. Chest pain 7-8 out of 10 per patient. PFSH Past Medical History Hx Anticoagulant Therapy: Yes (DVT-ASA) Arthritis: Yes (bursitis tendonitis) Asthma: No Atrial Fibrillation: Yes Autoimmune Disease: No Blood Disorders: No Anxiety: Yes Depression: Yes Heart Rhythm Problems: Yes (LBBB, afib RVR) Cancer: No Cardiac Catheterization: No Cardiovascular Problems: Yes (A FIB RVR, CHF, HTN left bundle branch) High Cholesterol: No Chest Pain: Yes Congestive Heart Failure: Yes COPD: Yes Cerebrovascular Accident: No Diabetes: No Diminished Hearing: No Endocrine: No Gastrointestinal Disorders: No Genitourinary: Yes (not urinating "a lot") Headaches: No Hypertension: Yes Immune Disorder: No Implanted Vascular Access Dvce: No Kidney Stones: Yes Musculoskeletal: Yes (many broken bones in the past) Neurologic: Yes (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) Psychiatric: No Reproductive: No Respiratory: Yes (COPD) Immunizations Current: Yes Migraines: No Seizures: Yes Shingles: Yes Sleep Apnea: No Ulcer: No ?: Not Past Surgical History Abdominal Surgery: Yes (HERNIA REPAIR) Cardiac Surgery: No Coronary Artery Bypass Graft: No Ear Surgery: No Endocrine Surgery: No Eye Surgery: No Genitourinary Surgery: No Gynecologic Surgery: No Neurologic Surgery: No Oral Surgery: No Thoracic Surgery: No Tonsillectomy: Yes Other Surgery: Yes Family History Family Myocardial Infarction: Yes (maternal) Social History Alcohol Use: Yes (1-2 PINTS DAILY VODKA) Tobacco Use: No Substance Use: No (DENIES) Allergies-Medications (Allergen,Severity, Reaction): Coded Allergies: Keflex (Verified Allergy, Severe, hives, 02/10/17) Penicillin (Verified Allergy, Severe, hives, 02/10/17) Sulfa (Verified Allergy, Severe, hives, 02/10/17) Nitroglycerin (Verified Allergy, Mild, 02/10/17) vomit Reported Meds & Prescriptions Reported Meds & Active Scripts Active Lisinopril 10 Mg Tab 10 Mg PO DAILY Cardizem CD 24 HR (Diltiazem CD 24 HR) 240 Mg Caper 240 Mg PO DAILY Aspirin EC (Aspirin) 81 Mg Tabdr 81 Mg PO DAILY Review of Systems ROS Limitations: Clinical Condition, Intoxication Except as stated in HPI: all other systems reviewed are Neg General / Constitutional: Positive: Fever, No: Chills, Weight Gain, Weight Loss, Other Eyes: No: Diploplia, Blurred Vision, Photophobia, Drainage, Redness, Foreign Body Sensation, Pain, Tearing, Blind Spots, Visual changes, Blindness, Other HENT: No: Headaches, Vertigo, Lightheadedness, Sore Throat, Rhinitis, Rhinorrhea, Congestion, Nosebleed, Neck Stiffness, Neck Pain, Masses, Gingival Bleeding, Dental Difficulties, Ear Discharge, Earache, Other Cardiovascular: Positive: Chest Pain or Discomfort, Palpitations, No: Irregular Rhythm, Tachycardia, Diaphoresis, Syncope, Dyspnea on exertion, Varicosities, Edema, Cyanosis, Varicosities, Phlebitis, Claudication, Other Respiratory: Positive: Cough, No: Shortness of Breath, Wheezing, Sneezing, Orthopnea, Hemoptysis, Stridor, Night Sweats, Pleuritic Pain, Other Gastrointestinal: Positive: Nausea, Vomiting, No: Diarrhea, Abdominal Pain, Hematemesis, Hematochezia, Constipation, Changes in Bowel Habits, Indigestion, Dysphagia, Loss of Appetite, Other Genitourinary: No: Urgency, Frequency, Dysuria, Nocturia, Hematuria, Decreased Urinary Output, Oliguria, Hesitancy, Dribbling, Incontinence, Pelvic Pain, Flank Pain, Dyspareunia, Discharge, Dysmenorrhea, Menorrhagia, Metorrhagia, Vaginal Bleeding, Other Musculoskeletal: No: Myalgias, Arthralgias, Limited ROM, Weakness, Cramping, Edema, Pain, Atrophy, Other Skin: Positive Lesions, Positive Other (lesion on right toe ), No Rash, No Itching, No Dryness, No Lumps, No Hives, No Change in Pigmentation, No Change in nails, No Alopecia, No Breast Lumps, No Breast Tenderness, No Breast Swelling Neurologic: Positive: Weakness, No: Dizziness, Syncope, Focal Abnormalities, Coordination Problem, Tremor, Ataxia, Headache, Change in Mentation, Slurred Speech, Paresthesia, Incontinence, Seizures, Sensory Disturbance, Other Psychiatric: Positive: Substance Abuse, No: Anxiety, Depression, Suicidal Ideations, Disorder of Thought, Mood Disorder, Homicidal Ideation, Other Endocrine: No: Heat Intolerance, Cold Intolerance, Polyuria, Polydipsia, Other Hematologic/Lymphatic: No: Easy Bruising, Lymph Node Enlargement, Other Physical Exam Exam Limitations: Clinical Condition Narrative GENERAL: 61-year-old male in no acute distress appears acutely intoxicated SKIN: Focused skin assessment warm/dry.+ Superficial lesion to the right great toe no active bleeding no cyanosis no erythema fair skin turgor HEAD: Atraumatic. Normocephalic. EYES: Pupils equal and round and reactive . No scleral icterus. No injection or drainage. ENT: No nasal bleeding or discharge. Mucous membranes pink and moist. NECK: Trachea midline. No JVD. CARDIOVASCULAR: S1-S2 appreciated hyperdynamic precordium. Rate 112 per minute JEANNINE displaced laterally. No murmur appreciated. Pulses normal throughout. RESPIRATORY: No accessory muscle use. No wheezes or rales worse breath sounds bilaterally GASTROINTESTINAL: Abdomen soft, non-tender, nondistended. Hepatic and splenic margins not palpable. Bowel sounds normal. No peritoneal signs. MUSCULOSKELETAL: No obvious deformities. No clubbing. No cyanosis. No edema. NEUROLOGICAL: Awake and alert and oriented 3.. No obvious cranial nerve deficits. Motor and sensory exam grossly within normal limits. Normal speech. No meningeal signs. PSYCHIATRIC: Patient is lethargic as he is obviously intoxicated from alcohol ; insight and judgment not appropriate at this time No suicidal or homicidal ideation. Data Data Last Documented VS Vital Signs Date Time Temp Pulse Resp B/P Pulse Ox O2 Delivery O2 Flow Rate FiO2 02/13/17 20:23 97 Room Air 02/13/17 19:57 113 18 Orders Electrocardiogram (02/13/17 19:59) Basic Metabolic Panel (Bmp) (02/13/17 19:59) B-Type Natriuretic Peptide (02/13/17 19:59) Ckmb (Isoenzyme) Profile (02/13/17 19:59) Complete Blood Count With Diff (02/13/17 19:59) Magnesium (Mg) (02/13/17 19:59) Prothrombin Time / Inr (Pt) (02/13/17 19:59) Act Partial Throm Time (Ptt) (02/13/17 19:59) Troponin I (02/13/17 19:59) Chest, Single Ap (02/13/17 19:59) Ecg Monitoring (02/13/17 19:59) Bilateral Bp Monitoring (02/13/17 19:59) Iv Access Insert/Monitor (02/13/17 19:59) Oximetry (02/13/17 19:59) Oxygen Administration (02/13/17 19:59) Aspirin (Aspirin) (02/13/17 20:00) Sodium Chloride 0.9% Flush (Ns Flush) (02/13/17 20:00) ^ Cleanse Wound With (02/13/17 19:59) Bacitracin Oint (Baciguent Oint) (02/13/17 20:00) Tetanus/Diphtheria Tox Adult (Tetanus/Di (02/13/17 20:00) Alcohol (Ethanol) (02/13/17 19:59) Drug Screen, Random Urine (02/13/17 19:59) Sodium Chlor 0.9% 250 Ml Inj (Ns 250 Ml (02/13/17 20:00) CKMB (02/13/17 20:10) CKMB% (02/13/17 20:10) Sodium Chlor 0.9% 250 Ml Inj (Ns 250 Ml (02/13/17 21:00) Morphine Inj (Morphine Inj) (02/13/17 21:15) Ondansetron Inj (Zofran Inj) (02/13/17 21:15) Admit Order (Ed Use Only) (02/13/17 21:12) Resp Oxygen Nasal Cannula (02/13/17 ) Electrocardiogram (02/13/17 21:12) Electrocardiogram (02/14/17 00:12) Sodium Chlor 0.9% 250 Ml Inj (Ns 250 Ml (02/13/17 21:30) Labs Laboratory Tests Test 02/13/17 20:10 White Blood Count 9.9 TH/MM3 Red Blood Count 4.07 MIL/MM3 Hemoglobin 14.1 GM/DL Hematocrit 41.1 % Mean Corpuscular Volume 101.2 FL Mean Corpuscular Hemoglobin 34.7 PG Mean Corpuscular Hemoglobin 34.3 % Concent Red Cell Distribution Width 15.6 % Platelet Count 328 TH/MM3 Mean Platelet Volume 7.3 FL Neutrophils (%) (Auto) 70.0 % Lymphocytes (%) (Auto) 11.0 % Monocytes (%) (Auto) 17.0 % Eosinophils (%) (Auto) 0.8 % Basophils (%) (Auto) 1.2 % Neutrophils # (Auto) 6.9 TH/MM3 Lymphocytes # (Auto) 1.1 TH/MM3 Monocytes # (Auto) 1.7 TH/MM3 Eosinophils # (Auto) 0.1 TH/MM3 Basophils # (Auto) 0.1 TH/MM3 CBC Comment DIFF FINAL Differential Comment Prothrombin Time 10.8 SEC Prothromb Time International 1.0 RATIO Ratio Activated Partial 24.5 SEC Thromboplast Time Sodium Level 143 MEQ/L Potassium Level 3.9 MEQ/L Chloride Level 108 MEQ/L Carbon Dioxide Level 22.0 MEQ/L Anion Gap 13 MEQ/L Blood Urea Nitrogen 19 MG/DL Creatinine 1.11 MG/DL Estimat Glomerular Filtration 67 ML/MIN Rate Random Glucose 134 MG/DL Calcium Level 8.6 MG/DL Magnesium Level 1.6 MG/DL Total Creatine Kinase 185 U/L Creatine Kinase MB 1.2 NG/ML Troponin I LESS THAN 0.02 NG/ML Ethyl Alcohol Level 284 MG/DL MDM Medical Decision Making Medical Screen Exam Complete: Yes Emergency Medical Condition: Yes Medical Record Reviewed: Yes Interpretation(s) EKG shows sinus tachycardia LVH ST flattening in the inferior and lateral leads previous EKG showed atrial fibrillation with rapid ventricular response Differential Diagnosis Differential diagnoses atypical chest pain acute coronary syndrome alcoholic cardiomyopathy dehydration abnormal chest x-ray possible pneumonia alcohol withdrawal Narrative Course This is a 61-year-old male patient with a past medical history of atrial fibrillation and congestive heart failure and chronic EtOH abuse who was brought to the ER by EMS with a complaint of chest pain located on the left side of the chest that radiates to the left arm. EKG shows sinus tachycardia with ST flattening in inferior and lateral leads. Troponin 1 negative. Chest x-ray shows blunting of the left heart border infiltrate versus atelectasis.. Patient is allergic to penicillin and due to the history of atrial fibrillation with RVR want to avoid fluoroquinolones so decided to give IV doxycycline for possible pneumonia. Patient has not urinated as of yet. She is still tachycardic EtOH level 280 range condition tremulousness no evidence of overt hallucinations as of yet. CBC negative. Patient given Ativan IV alcohol withdrawal. So given aspirin and Zofran for the chest pain. Not given nitroglycerin as patient states she is allergic to distress. Patient to be admitted to medicine telemetry bed on observation status chest pain he hydrated alcohol withdrawal normal chest x-ray. Procedures EKG Prior to Arrival: No Diagnosis Primary Impression: Acute coronary syndrome Additional Impressions: Dehydration Alcohol withdrawal Abnormal chest xray Admitting Information Admitting Physician Requests: Observation Mayra Marte MD Feb 13, 2017 20:13
[2017-02-13 20:23] VITALS: O2SAT 97
[2017-02-13 20:25] LABS: AUTOMATED NEUTROPHIL # 6.9 TH/MM3 (1.8-7.7); BASOPHIL # 0.1 TH/MM3 (0-0.2); BASOPHIL % 1.2 % (0.0-2.0); EOSINOPHIL # 0.1 TH/MM3 (0-0.4); EOSINOPHIL % 0.8 % (0.0-4.0); HEMATOCRIT 41.1 % (39.0-51.0); HEMO FLAGS DIFF FINAL; LYMPHOCYTE # 1.1 TH/MM3 (1.0-4.8); MEAN CELL VOLUME 101.2 FL (80.0-100.0); MEAN CORPUSCULAR HEMOGLOBIN 34.7 PG (27.0-34.0); MEAN CORPUSCULAR HGB CONC 34.3 % (32.0-36.0); PLATELET COUNT 328 TH/MM3 (150-450); RED BLOOD COUNT 4.07 MIL/MM3 (4.50-5.90); RED CELL DISTRIBUTION WIDTH 15.6 % (11.6-17.2); WHITE BLOOD COUNT 9.9 TH/MM3 (4.0-11.0)
--- NOTE | 2017-02-13 20:27 | RADRPT ---
EXAM DATE/TIME: 02/13/2017 20:04 [facility] COMPARISON: CHEST SINGLE AP, February 02, 2017, 12:57. INDICATIONS : Chest pain. MEDICAL HISTORY : Atrial fibrillation SURGICAL HISTORY : None. ENCOUNTER: Initial ACUITY: 1 day PAIN SCORE: 10/10 LOCATION: Bilateral chest FINDINGS: The heart size is within normal limits. There is mild increased density of the lateral left base. The right lung is clear. A significant effusion is not seen. CONCLUSION: Mild atelectasis or consolidation at the lateral left base. Jung Robertson MD on February 13, 2017 at 20:24 Board Certified Radiologist. This report was verified electronically.
[2017-02-13 20:37] LABS: APTT (PATIENT) 24.5 SEC (24.3-30.1); PROTHROMBIN TIME - PATIENT 10.8 SEC (9.8-11.6)
[2017-02-13 20:49] LABS: ANION GAP 13 MEQ/L (5-15); BLOOD UREA NITROGEN 19 MG/DL (7-18); CHLORIDE 108 MEQ/L (98-107); GLOMERULAR FILTRATION RATE 67 ML/MIN (>89); MAGNESIUM 1.6 MG/DL (1.5-2.5); POTASSIUM 3.9 MEQ/L (3.5-5.1); SODIUM (NA) 143 MEQ/L (136-145)
[2017-02-13 20:55] LABS: CREATINE KINASE 185 U/L (39-308)
[2017-02-13 21:10] LABS: CKMB 1.2 NG/ML (0.5-3.6)
[2017-02-13] MEDS ORDERED: MORPHINE SULFATE 4 MG/ML INJ IV PUSH ONE (21:15)
[2017-02-13] MEDS ORDERED: ONDANSETRON HCL 4 MG/2 ML VIAL IV PUSH ONE (21:15)
[2017-02-13] MEDS ORDERED: SODIUM CHLORIDE 0.9% FLUSH 10 ML FLUSH IV FLUSH PRN ×2 (21:15→22:00)
[2017-02-13 21:31] VITALS: O2SAT 97
[2017-02-13 21:35] VITALS: BP 145/70; PULSE 112; RESP 18; O2SAT 96
[2017-02-13] MEDS ORDERED: DOXYCYCLINE INJ 100 MG in SODIUM CHLORIDE 0.9% INJ 100 ML IV ONE (21:45)
[2017-02-13] MEDS ORDERED: LORazepam 2 MG/ML VIAL IV PUSH ONE (21:45)
[2017-02-13] MEDS ORDERED: THIAMINE HCL 100 MG TAB PO ONE (22:00)
[2017-02-13] MEDS ORDERED: NALOXONE HCL 0.4 MG/ML AMP IV PRN (22:00)
[2017-02-13 22:33] LABS: AMPHETAMINE, URINE NEG (NEG); BARBITURATES, URINE NEG (NEG); COCAINE, URINE NEG (NEG)
[2017-02-13 22:47] VITALS: BP 127/77; PULSE 104; RESP 18; O2SAT 99
[2017-02-13 23:32] VITALS: BP 120/79; PULSE 101; RESP 18; TEMP 98.5; O2SAT 99
[2017-02-14] VITALS (12 sets, daily range): BP systolic 123–178; BP diastolic 64–103; PULSE 77–102; RESP 14–20; TEMP 98–99; O2SAT 96–98
[2017-02-14 03:21] LABS: AUTOMATED NEUTROPHIL # 4.6 TH/MM3 (1.8-7.7); BASOPHIL # 0.1 TH/MM3 (0-0.2); BASOPHIL % 1.4 % (0.0-2.0); EOSINOPHIL # 0.1 TH/MM3 (0-0.4); EOSINOPHIL % 0.9 % (0.0-4.0); HEMATOCRIT 36.7 % (39.0-51.0); HEMO FLAGS DIFF FINAL; LYMPH % 21.6 % (9.0-44.0); LYMPHOCYTE # 1.6 TH/MM3 (1.0-4.8); MEAN CELL VOLUME 100.7 FL (80.0-100.0); MEAN CORPUSCULAR HEMOGLOBIN 34.8 PG (27.0-34.0); MEAN CORPUSCULAR HGB CONC 34.5 % (32.0-36.0); MONO % 14.7 % (0.0-8.0); NEUT % 61.4 % (16.0-70.0); PLATELET COUNT 279 TH/MM3 (150-450); RED BLOOD COUNT 3.65 MIL/MM3 (4.50-5.90); RED CELL DISTRIBUTION WIDTH 15.5 % (11.6-17.2); WHITE BLOOD COUNT 7.6 TH/MM3 (4.0-11.0)
[2017-02-14 03:27] LABS: BICARBONATE 27.1 MEQ/L (21.0-32.0); POTASSIUM 3.9 MEQ/L (3.5-5.1)
--- NOTE | 2017-02-14 04:59 | HHI.HP ---
[facility] No Primary Care Physician Admission Diagnosis atypical chest pain, dehydration, alcohol abuse . Diagnoses: (1) Atypical chest pain (2) Dehydration (3) Alcohol abuse (4) Alcohol intoxication Chief Complaint: chest pain Travel History International Travel<30 Days: No Contact w/Intl Traveler <30 Da: No Traveled to Known Affected Are: No History of Present Illness Mr. Hansen is a 61-year-old male with a past medical history of atrial fibrillation, hypertension, congestive heart failure, COPD, seizures, and alcohol abuse who presented to the emergency room on 02/13/2017 via ambulance complaining of chest pain. The patient is seen in the CDU. He was sleeping when I arrived. He is easily awakened but remains drowsy throughout the visit. Initially he cannot tell me why he is in the hospital and states that someone called an ambulance on them. Upon further direct inquiry regarding chest pain, he states that he had been having chest pain for about a half an hour that radiated down his left arm up his left neck and down his left leg and was associated with diaphoresis, shortness of breath, and nausea but without vomiting or palpitations. He states his symptoms were severe and lasted for about half hour initially. Then he stated that he still had the chest pain and rated it an 8 out of 10; I was able to reproduce symptoms with palpation of the anterior chest wall. I left the room to get a glass of water for him and when I returned, he was back to sleep. Again, he easily arouses to take the glass water for me. Review of Systems Except as stated in HPI: all other systems reviewed are Neg Past Family Social History Past Medical History Hypertension Congestive heart failure Atrial fibrillation not on anticoagulation COPD Seizures with last one occurring "a few days ago" Denies any history of diabetes mellitus, liver disease, kidney disease, DVT, PE , CVA, thyroid disease, cancer, or prostate problems. Past Surgical History Multiple orthopedic surgeries - states "I have broken 50 something bones" Tonsillectomy . Reported Medications Reported Meds & Active Scripts Active Lisinopril 10 Mg Tab 10 Mg PO DAILY Cardizem CD 24 HR (Diltiazem CD 24 HR) 240 Mg Caper 240 Mg PO DAILY Aspirin EC (Aspirin) 81 Mg Tabdr 81 Mg PO DAILY . Allergies: Coded Allergies: Keflex (Verified Allergy, Severe, hives, 02/10/17) Penicillin (Verified Allergy, Severe, hives, 02/10/17) Sulfa (Verified Allergy, Severe, hives, 02/10/17) Nitroglycerin (Verified Allergy, Mild, 02/10/17) vomit Active Ordered Medications Current Medications Aspirin (Aspirin) 325 mg ONCE ONCE PO Last administered on 02/13/17 20:17; Start 02/13/17 at 20:00; Stop 02/13/17 at 20:04; Status DC Sodium Chloride (NS Flush) 2 ml UNSCH PRN IVF FLUSH AFTER USING IV ACCESS; Start 02/13/17 at 20:00 Bacitracin (Baciguent Oint) 1 applic ONCE ONCE TOPICAL Last administered on 20:17; Start 02/13/17 at 20:00; Stop 02/13/17 at 20:04; Status DC Tetanus/ Diphtheria Toxoids 0.5 ml 0.5 ml ONCE ONCE IM Last administered on 02/13 20:00; Start 02/13/17 at 20:00; Stop 02/13/17 at 20:04; Status DC Sodium Chloride 250 ml @ 250 mls/hr BOLUS ONCE IV Last administered on 20:17; Start 02/13/17 at 20:00; Stop 02/13/17 at 20:59; Status DC Sodium Chloride (NS 250 ml Inj) 250 ml @ 250 mls/hr BOLUS ONCE IV Last administered on 02/13/17 21:05; Start 02/13/17 at 21:00; Stop 02/13/17 at 22:00; Status DC Morphine Sulfate (Morphine Inj) 2 mg ONCE ONCE IV PUSH Last administered on 21:13; Start 02/13/17 at 21:15; Stop 02/13/17 at 21:16; Status DC Ondansetron HCl (Zofran Inj) 4 mg ONCE ONCE IV PUSH Last administered on 21:14; Start 02/13/17 at 21:15; Stop 02/13/17 at 21:16; Status DC Sodium Chloride (NS Flush) 2 ml UNSCH PRN IV FLUSH FLUSH AFTER USING IV ACCESS ; Start 02/13/17 at 21:15; Status Cancel Sodium Chloride 2 ml 2 ml BID .XX ; Start 02/14/17 at 09:00; Status Cancel Sodium Chloride 250 ml @ 250 mls/hr BOLUS ONCE IV ; Start 02/13/17 at 21:30; Stop 02/13/17 at 22:29; Status DC Doxycycline Hyclate/Sodium Chloride (Vibramycin Inj/ NS Inj) 100 ml @ 100 mls/ hr ONCE ONCE IV Last administered on 02/13/17 22:00; Start 02/13/17 at 21:45; Stop 02/13/17 at 22:44; Status DC Lorazepam (Ativan Inj) 2 mg ONCE ONCE IV PUSH Last administered on 02/13/17 22 :00; Start 02/13/17 at 21:45; Stop 02/13/17 at 21:46; Status DC Sodium Chloride (NS Flush) 2 ml UNSCH PRN IV FLUSH FLUSH AFTER USING IV ACCESS ; Start 02/13/17 at 22:00 Sodium Chloride (NS Flush) 2 ml BID IV FLUSH ; Start 02/14/17 at 09:00 Naloxone HCl (Narcan Inj) 0.4 mg UNSCH PRN IV SEE LABEL COMMENTS; Start at 22:00 Lorazepam (Ativan Inj) 1 mg Q2H PRN IV PUSH withdrawal symptoms; Start 02/13/17 at 22:00 Thiamine HCl (Vitamin B1) 100 mg ONCE ONCE PO Last administered on 02/13/17 22 :13; Start 02/13/17 at 22:00; Stop 02/13/17 at 22:01; Status DC Thiamine HCl (Vitamin B1) 100 mg DAILY PO ; Start 02/14/17 at 09:00 Chlordiazepoxide (Librium) 25 mg TID PO ; Start 02/14/17 at 09:00 . Family History Mother had atrial fibrillation Father with pancreatic cancer . Social History Tobacco: States he quit smoking one year ago and had smoked one half pack per day for "most of my life" Alcohol: Drinks 1 pint of alcohol per day Illicit Drugs: Denies . Physical Exam Vital Signs Vital Signs Date Time Temp Pulse Resp B/P Pulse Ox O2 Delivery O2 Flow Rate FiO2 02/14/17 04:36 98.1 77 18 123/64 97 02/14/17 02:29 102 02/13/17 23:32 98.5 101 18 120/79 99 02/13/17 22:47 104 18 127/77 99 Nasal Cannula 2 02/13/17 22:22 18 02/13/17 21:35 112 18 145/70 96 Room Air 02/13/17 21:31 97 02/13/17 20:23 97 Room Air 02/13/17 20:23 97 Room Air 02/13/17 19:57 113 18 97 Room Air 02/13/17 19:54 116 18 97 Physical Exam GENERAL: This is a disheveled, chronically ill-appearing male patient, in no apparent distress. SKIN: No rashes, ecchymoses or lesions. Cool and dry. HEAD: Atraumatic. Normocephalic. EYES: No scleral icterus. No injection or drainage. ENT: Nose without bleeding, purulent drainage. NECK: Trachea midline. No JVD or lymphadenopathy. CARDIOVASCULAR: Regular rate and rhythm without murmurs, gallops, or rubs. RESPIRATORY: Clear to auscultation. Breath sounds equal bilaterally. No wheezes , rales, or rhonchi. GASTROINTESTINAL: Abdomen soft, non-tender, nondistended. No guarding. MUSCULOSKELETAL: Extremities without clubbing, cyanosis, or edema. No calf tenderness. Reproducible chest pain with palpation of chest wall. NEUROLOGICAL: Drowsy. Motor and sensory grossly within normal limits. Normal speech. . Laboratory Laboratory Tests Test 02/13/17 02/13/17 02/14/17 20:10 21:42 02:53 White Blood Count 9.9 7.6 Red Blood Count 4.07 3.65 Hemoglobin 14.1 12.7 Hematocrit 41.1 36.7 Mean Corpuscular Volume 101.2 100.7 Mean Corpuscular Hemoglobin 34.7 34.8 Mean Corpuscular Hemoglobin 34.3 34.5 Concent Red Cell Distribution Width 15.6 15.5 Platelet Count 328 279 Mean Platelet Volume 7.3 7.4 Neutrophils (%) (Auto) 70.0 61.4 Lymphocytes (%) (Auto) 11.0 21.6 Monocytes (%) (Auto) 17.0 14.7 Eosinophils (%) (Auto) 0.8 0.9 Basophils (%) (Auto) 1.2 1.4 Neutrophils # (Auto) 6.9 4.6 Lymphocytes # (Auto) 1.1 1.6 Monocytes # (Auto) 1.7 1.1 Eosinophils # (Auto) 0.1 0.1 Basophils # (Auto) 0.1 0.1 CBC Comment DIFF FINAL DIFF FINAL Differential Comment Prothrombin Time 10.8 Prothromb Time International 1.0 Ratio Activated Partial 24.5 Thromboplast Time Sodium Level 143 144 Potassium Level 3.9 3.9 Chloride Level 108 110 Carbon Dioxide Level 22.0 27.1 Anion Gap 13 7 Blood Urea Nitrogen 19 15 Creatinine 1.11 0.76 Estimat Glomerular Filtration 67 104 Rate Random Glucose 134 89 Calcium Level 8.6 7.8 Magnesium Level 1.6 Total Creatine Kinase 185 154 Creatine Kinase MB 1.2 Troponin I LESS THAN 0.02 0.02 B-Type Natriuretic Peptide 10 Ethyl Alcohol Level 284 Urine Opiates Screen NEG Urine Barbiturates Screen NEG Urine Amphetamines Screen NEG Urine Benzodiazepines Screen POS Urine Cocaine Screen NEG Urine Cannabinoids Screen NEG Date/Time Procedure Status Source Growth 02/13/17 22:01 Aerobic Blood Culture Received Blood Other Pending 02/13/17 22:01 Anaerobic Blood Culture Received Blood Other Pending . Result Diagram: 02/14/1725202/14/17252 Imaging Last Impressions Chest X-Ray 02/13/171958 Signed Impressions: Service Date/Time: Monday, February 13, 2017 20:04 - CONCLUSION: Mild atelectasis or consolidation at the lateral left base. Jung Robertson MD . Assessment and Plan Problem List: (1) Atypical chest pain ICD Code: R07.89 Status: Acute (2) Alcohol abuse ICD Code: F10.10 Status: Chronic (3) Alcohol intoxication ICD Code: F10.929 Status: Acute Assessment and Plan Atypical chest pain - suspect musculoskeletal - Check serial EKGs and cardiac enzymes to rule out ACS - Continuous cardiac telemetry to monitor for arrhythmias - Monitor intake and output every shift - Monitor vital signs every 4 hours Alcohol intoxication and abuse - Seizure precautions - Initiated discussion with patient about quitting alcohol - Librium 25 mg 1 by mouth 3 times a day - Lorazepam 1 mg IV every 2 hours when necessary for withdrawal symptoms - Thiamine 100 mg by mouth daily, Folic acid 1 mg daily by mouth and multivitamin 1 by mouth daily . Discussed Condition With ER physician, RN, and patient Mary De Santiago Feb 14, 2017 04:59
[2017-02-14] MEDS: LORazepam 2 MG/ML VIAL IV PUSH PRN ×4 (06:26→23:22)
[2017-02-14] MEDS ORDERED: IBUPROFEN 400 MG TAB PO PRN (08:15)
[2017-02-14] MEDS: FOLIC ACID 1 MG TAB PO SCH (08:21)
[2017-02-14] MEDS: THIAMINE HCL 100 MG TAB PO SCH (08:21)
[2017-02-14] MEDS: chlordiazePOXIDE 25 MG CAP PO SCH ×3 (08:21→17:06)
[2017-02-14] MEDS: SODIUM CHLORIDE 0.9% FLUSH 10 ML FLUSH IV FLUSH SCH ×2 (08:21→20:11)
[2017-02-14] MEDS: MULTIVITAMINS/MINERALS THERAPEUTIC TAB PO SCH (08:21)
[2017-02-14] MEDS ORDERED: MORPHINE SULFATE 4 MG/ML INJ IV PUSH PRN (08:45)
[2017-02-14] MEDS ORDERED: SODIUM CHLORIDE 0.9% FLUSH 10 ML FLUSH SCH (09:00)
--- NOTE | 2017-02-14 09:12 | EKG ---
Date Performed: 02/14/2017 Time Performed: 02:25:47 PTAGE: 61 years EKG: Sinus rhythm ST DEVIATION AND MODERATE T-WAVE ABNORMALITY, CONSIDER ANTEROLATERAL ISCHEMIA ST DEVIATION AND MODER ATE T-WAVE ABNORMALITY, CONSIDER INFERIOR ISCHEMIA ABNORMAL ECG PREVIOUS TRACING : 02/13/2017 19.59 DOCTOR: Kentrell Mathews Interpretating Date/Time 02/14/2017 09:10:20
--- NOTE | 2017-02-14 09:28 | EKG ---
Date Performed: 02/13/2017 Time Performed: 19:59:15 PTAGE: 61 years EKG: SINUS TACHYCARDIA ST DEVIATION AND MODERATE T-WAVE ABNORMALITY, CONSIDER LATERAL ISCHEMIA S T DEVIATION AND MODERATE T-WAVE ABNORMALITY, CONSIDER INFERIOR ISCHEMIA ABNORMAL ECG NO PREVIOUS TRACING DOCTOR: Kentrell Mathews Interpretating Date/Time 02/14/2017 09:27:13
--- NOTE | 2017-02-14 09:44 | MB ---
cc: ANCA FERNANDEZ MD DATE OF CONSULTATION 02/14/2017 HISTORY This is a 61-year-old gentleman who was admitted to the hospital for chest discomfort which began last night at approximately 6 o'clock. It was described as a left-sided chest pain with associated numbness of his left arm and left leg. This has been persistent for the past 9 hours. It is associated with some shortness of breath. No diaphoresis or nausea was present. The patient has had a history of multiple admissions to the chest pain center with stress testing as recently as December with no evidence for CAD per Lexiscan. He has also had a long history of chronic alcohol abuse with multiple admissions for alcohol withdrawal as well. PAST MEDICAL HISTORY 1. Otherwise significant for atrial fibrillation. 2. He has also had a history of heart failure, however, echocardiogram done in August of 2016 demonstrates normal LV function. 3. History of hypertension. He denies hyperlipidemia or diabetes. MEDICATIONS Medications at home include - 1. Lisinopril. 2. Amlodipine. 3. One aspirin daily. ALLERGIES NITROGLYCERIN. PENICILLIN. SULFA. SOCIAL HISTORY The patient drinks one to two pints of vodka daily. He does not smoke and does not use recreational drugs. PHYSICAL EXAMINATION GENERAL: On physical exam he is awake and alert. VITAL SIGNS: His blood pressure is 130/82; he is afebrile. Pulse is 90 and regular. NECK: There is no neck vein distension. LUNGS: Clear. CARDIOVASCULAR: Exam reveals a regular rate and rhythm. There is no significant murmur present. No gallop is noted. ABDOMEN: Soft. There is no tenderness or organomegaly. EXTREMITIES: No edema. LABORATORY EXAMINATION Normal troponins with a normal BNP. Creatinine and electrolytes are unremarkable. MCV is elevated at 101. ASSESSMENT The patient has atypical chest discomfort. Certainly given the duration of his discomfort with normal troponins makes it unlikely that it is ischemic heart disease. PLAN 1. I have increased his dose of morphine to help him with this pain. 2. We will check a D-dimer. 3. We will also recheck an echocardiogram to reevaluate LV function. MD MARTHA Vu/PRIMO /9:24 AM /9:35 AM
--- NOTE | 2017-02-14 10:58 | EKG ---
Date Performed: 02/14/2017 Time Performed: 08:10:42 PTAGE: 61 years EKG: Sinus rhythm ST DEVIATION AND MODERATE T-WAVE ABNORMALITY, CONSIDER LATERAL ISCHEMIA ST DEVIATION AND MODERATE T- WAVE ABNORMALITY, CONSIDER INFERIOR ISCHEMIA ABNORMAL ECG PREVIOUS TRACING : 02/14/2017 02.25 DOCTOR: Kentrell Mathews Interpretating Date/Time 02/14/2017 10:57:06
[2017-02-14] MEDS: MORPHINE SULFATE 4 MG/ML INJ IV PUSH PRN ×3 (11:13→20:11)
[2017-02-14 12:43] LABS: CREATINE KINASE 145 U/L (39-308)
--- NOTE | 2017-02-14 13:19 | HHI.HP ---
HPI Service [facility] Primary Care Physician No Primary Care Physician Admission Diagnosis atypical chest pain, dehydration, alcohol abuse . Diagnoses: (1) Atypical chest pain (2) Alcohol abuse (3) Alcohol intoxication Travel History International Travel<30 Days: No Contact w/Intl Traveler <30 Da: No Traveled to Known Affected Are: No History of Present Illness 61-year-old male with a medical history significant for hypertension, chronic alcohol abuse, atrial fibrillation, COPD, seizure who presented to the emergency room complaining of left-sided chest pain. Patient reports a pressure type pain radiating down his left arm. He endorsed 9 out of 10 pain. He endorsed associated shortness of breath with activities. No nausea or vomiting. He states that the pain is still there when he palpates his chest. He continues to drink 1 pint of vodka daily. Review of Systems Constitutional: DENIES: Fever, Chills Cardiovascular: COMPLAINS OF: Chest pain, Dyspnea on Exertion Except as stated in HPI: all other systems reviewed are Neg Past Family Social History Past Medical History Chronic alcohol abuse CHF Atrial fibrillation, not on anticoagulation currently COPD Reported history of seizures. Past Surgical History Reports multiple orthopedic surgeries from trauma Tonsillectomy . Reported Medications Reported Meds & Active Scripts Active Lisinopril 10 Mg Tab 10 Mg PO DAILY Cardizem CD 24 HR (Diltiazem CD 24 HR) 240 Mg Caper 240 Mg PO DAILY Aspirin EC (Aspirin) 81 Mg Tabdr 81 Mg PO DAILY Allergies: Coded Allergies: Keflex (Verified Allergy, Severe, hives, 02/10/17) Penicillin (Verified Allergy, Severe, hives, 02/10/17) Sulfa (Verified Allergy, Severe, hives, 02/10/17) Nitroglycerin (Verified Allergy, Mild, 02/10/17) vomit Family History Mother had atrial fibrillation Father with pancreatic cancer . Social History Tobacco: Patient reports that he quit smoking a year ago. Prior to that he smoked half a pack a day for 40+ years. Alcohol: Drinks 1 pint of vodka per day Illicit Drugs: Denies . Physical Exam Vital Signs Vital Signs Date Time Temp Pulse Resp B/P Pulse Ox O2 Delivery O2 Flow Rate FiO2 02/14/17 11:51 98.0 95 16 157/82 98 02/14/17 07:40 98.6 92 16 135/82 97 02/14/17 07:16 98 Nasal Cannula 2.00 02/14/17 04:36 98.1 77 18 123/64 97 02/14/17 04:09 96 02/14/17 02:29 102 02/13/17 23:32 98.5 101 18 120/79 99 02/13/17 22:47 104 18 127/77 99 Nasal Cannula 2 02/13/17 22:22 18 02/13/17 21:35 112 18 145/70 96 Room Air 02/13/17 21:31 97 02/13/17 20:23 97 Room Air 02/13/17 20:23 97 Room Air 02/13/17 19:57 113 18 97 Room Air 02/13/17 19:54 116 18 97 Physical Exam GENERAL: Patient appearing older than stated age, he is tremulous. SKIN: No rashes, ecchymoses or lesions. Cool and dry. HEAD: Atraumatic. Normocephalic. No temporal or scalp tenderness. EYES: Pupils equal round and reactive. Extraocular motions intact. No scleral icterus. No injection or drainage. ENT: Nose without bleeding, purulent drainage or septal hematoma. Throat without erythema, tonsillar hypertrophy or exudate. Uvula midline. Airway patent. NECK: Trachea midline. No JVD or lymphadenopathy. Supple, nontender, no meningeal signs. CARDIOVASCULAR: Patient tender to palpation over the anterior left chest. Regular rate and rhythm without murmurs, gallops, or rubs. RESPIRATORY: Clear to auscultation. Breath sounds equal bilaterally. No wheezes , rales, or rhonchi. GASTROINTESTINAL: Abdomen soft, non-tender, nondistended. No hepato-splenomegaly , or palpable masses. No guarding. MUSCULOSKELETAL: Extremities without clubbing, cyanosis, or edema. No joint tenderness, effusion, or edema noted. No calf tenderness. Negative Homans sign bilaterally. NEUROLOGICAL: Awake and alert. Tremulous. Normal speech. Laboratory Laboratory Tests Test 02/13/17 02/13/17 02/14/17 02/14/17 20:10 21:42 02:53 11:00 White Blood Count 9.9 7.6 Red Blood Count 4.07 3.65 Hemoglobin 14.1 12.7 Hematocrit 41.1 36.7 Mean Corpuscular Volume 101.2 100.7 Mean Corpuscular Hemoglobin 34.7 34.8 Mean Corpuscular Hemoglobin 34.3 34.5 Concent Red Cell Distribution Width 15.6 15.5 Platelet Count 328 279 Mean Platelet Volume 7.3 7.4 Neutrophils (%) (Auto) 70.0 61.4 Lymphocytes (%) (Auto) 11.0 21.6 Monocytes (%) (Auto) 17.0 14.7 Eosinophils (%) (Auto) 0.8 0.9 Basophils (%) (Auto) 1.2 1.4 Neutrophils # (Auto) 6.9 4.6 Lymphocytes # (Auto) 1.1 1.6 Monocytes # (Auto) 1.7 1.1 Eosinophils # (Auto) 0.1 0.1 Basophils # (Auto) 0.1 0.1 CBC Comment DIFF FINAL DIFF FINAL Differential Comment Prothrombin Time 10.8 Prothromb Time International 1.0 Ratio Activated Partial 24.5 Thromboplast Time Sodium Level 143 144 Potassium Level 3.9 3.9 Chloride Level 108 110 Carbon Dioxide Level 22.0 27.1 Anion Gap 13 7 Blood Urea Nitrogen 19 15 Creatinine 1.11 0.76 Estimat Glomerular Filtration 67 104 Rate Random Glucose 134 89 Calcium Level 8.6 7.8 Magnesium Level 1.6 Total Creatine Kinase 185 154 145 Creatine Kinase MB 1.2 Troponin I LESS THAN 0.02 0.02 LESS THAN 0.02 B-Type Natriuretic Peptide 10 Ethyl Alcohol Level 284 Urine Opiates Screen NEG Urine Barbiturates Screen NEG Urine Amphetamines Screen NEG Urine Benzodiazepines Screen POS Urine Cocaine Screen NEG Urine Cannabinoids Screen NEG Test 02/14/17 11:58 D-Dimer Quantitative (PE/DVT) 1.45 Date/Time Procedure Status Source Growth 02/13/17 22:01 Aerobic Blood Culture - Preliminary Resulted Blood Other NO GROWTH IN 1 DAY 02/13/17 22:01 Anaerobic Blood Culture - Preliminary Resulted Blood Other NO GROWTH IN 1 DAY Result Diagram: 02/14/17 0253 02/14/[address] Angiography 02/14/17 0000 Signed Impressions: Service Date/Time: Tuesday, February 14, 2017 14:26 - CONCLUSION: 1. No evidence of PE. 2. No acute pulmonary infiltrates. 3. No significant change compared to the prior exam. Erick Townsend MD Chest X-Ray 02/13/171958 Signed Impressions: Service Date/Time: Monday, February 13, 2017 20:04 - CONCLUSION: Mild atelectasis or consolidation at the lateral left base. Jung Robertson MD Assessment and Plan Problem List: (1) Atypical chest pain ICD Code: R07.89 Status: Acute Plan: Cardiac enzymes negative. Suspect musculoskeletal pain. However he does have risk factors Patient evaluated by cardiology. 2-D echocardiogram. D-dimer is slightly elevated. Will obtain pulmonary CTA. Continue morphine as needed. Further plans per cardiology. (2) Alcohol abuse ICD Code: F10.10 Status: Chronic Plan: Early signs of withdrawals. Continue scheduled Librium Ativan as needed. Patient counseled extensively on the need to quit drinking alcohol. (3) Alcohol intoxication ICD Code: F10.929 Status: Acute (4) Paroxysmal atrial fibrillation ICD Code: I48.0 Status: Acute Plan: Rate controlled. Resume Cardizem. Continue aspirin. Given persistent heavy alcohol use, not a candidate for anticoagulation. Adali Oliveros MD Feb 14, 2017 13:19
[2017-02-14] MEDS ORDERED: ONDANSETRON HCL 4 MG/2 ML VIAL IV PUSH PRN (14:00)
[2017-02-14] MEDS ORDERED: IOHEXOL 350 MG/ML 10 ML VIAL (for RAD DIAG) IV ONE (14:39)
--- NOTE | 2017-02-14 14:46 | RADRPT ---
EXAM DATE/TIME: 02/14/2017 14:26 [facility] COMPARISON: CT PULMONARY ANGIOGRAM, December 31, 2016, 0:40. INDICATIONS : Left side chest pain. IV CONTRAST: 85 cc Omnipaque 350 (iohexol) IV RADIATION DOSE: 23.27 CTDIvol (mGy) MEDICAL HISTORY : Cardiovascular disease. Deep venous thrombosis. Chronic obstructive pulmonary disease.Hypertension. SURGICAL HISTORY : None. ENCOUNTER: Initial ACUITY: 2 days PAIN SCALE: 4/10 LOCATION: Left upper chest TECHNIQUE: Volumetric scanning of the chest was performed using a pulmonary embolism protocol MIP images were re constructed. Using automated exposure control and adjustment of the mA and/or kV according to patien t size, radiation dose was kept as low as reasonably achievable to obtain optimal diagnostic quality images. DICOM format image data is available electronically for review and comparison. FINDINGS: PULMONARY ARTERIES: No filling defects are seen in the pulmonary arteries through the segmental level. LUNGS: There is no consolidation or pneumothorax . No concerning pulmonary nodule is visualized. Small bull a in the right upper lung. PLEURAE: There is no pleural thickening or pleural effusion. MEDIASTINUM: There is good visualization of the great vessels of the middle mediastinum. No evidence of mediastin al or hilar adenopathy/mass. MUSCULOSKELETAL: Within normal limits for patient age. MISCELLANEOUS: The visualized upper abdominal organs demonstrate no acute abnormality. A few stable hepatic cysts. CONCLUSION: 1. No evidence of PE. 2. No acute pulmonary infiltrates. 3. No significant change compared to the prior exam. Erick Townsend MD on February 14, 2017 at 14:42 Board Certified Radiologist. This report was verified electronically.
[2017-02-14] MEDS ORDERED: LISINOPRIL 10 MG TAB PO ONE (16:30)
[2017-02-14] MEDS ORDERED: cloNIDine HCL 0.1 MG TAB PO PRN (16:30)
[2017-02-15] VITALS (10 sets, daily range): BP systolic 110–144; BP diastolic 64–95; PULSE 67–90; RESP 16–20; TEMP 97.9–98.5; O2SAT 94–97
[2017-02-15] MEDS: MORPHINE SULFATE 4 MG/ML INJ IV PUSH PRN ×3 (01:05→11:10)
[2017-02-15] MEDS: LORazepam 2 MG/ML VIAL IV PUSH PRN (05:33)
[2017-02-15 07:51] LABS: HEMATOCRIT 36.6 % (39.0-51.0); MEAN CELL VOLUME 100.8 FL (80.0-100.0); MEAN CORPUSCULAR HEMOGLOBIN 34.6 PG (27.0-34.0); MEAN CORPUSCULAR HGB CONC 34.3 % (32.0-36.0); PLATELET COUNT 268 TH/MM3 (150-450); RED BLOOD COUNT 3.63 MIL/MM3 (4.50-5.90); REVIEW FLAG FINAL; WHITE BLOOD COUNT 7.4 TH/MM3 (4.0-11.0)
[2017-02-15 08:08] LABS: BICARBONATE 28.3 MEQ/L (21.0-32.0); POTASSIUM 3.6 MEQ/L (3.5-5.1)
--- NOTE | 2017-02-15 08:36 | PD.CARD.PN ---
Subjective Subjective Remarks Chest pain resolved. D-dimer elevated but PE ruled out by CTA. Complains of persistant left arm and leg numbness with questionable weakness of his left leg. Objective Vital Signs / I&O Vital Signs Date Time Temp Pulse Resp B/P Pulse Ox O2 Delivery O2 Flow Rate FiO2 02/15/17 08:07 98.2 88 18 122/80 95 02/15/17 06:39 95 21 02/15/17 06:31 89 18 144/92 97 02/15/17 03:28 79 02/15/17 03:16 97.9 84 18 142/64 96 02/15/17 01:12 20 02/15/17 00:18 98.0 87 20 96 124/95 02/15/17 00:15 89 02/14/17 20:10 89 02/14/17 20:02 160/86 Automatic Cuff 02/14/17 19:16 99.0 92 20 162/101 97 02/14/17 18:07 167/103 02/14/17 15:46 98.4 100 14 178/94 96 02/14/17 13:52 95 02/14/17 11:51 98.0 95 16 157/82 98 I/O 02/14/17 02/14/17 02/14/17 02/15/17 02/15/17 02/15/17 07:00 15:00 23:00 07:00 15:00 23:00 Intake Total 100 ml Balance 100 ml Intake Oral 100 ml # Voids 1 Physical Exam Lungs clear RRR no murmur Neuro grossly intact. Laboratory Laboratory Tests Test 02/14/17 02/14/17 02/15/17 11:00 11:58 06:01 Total Creatine Kinase 145 U/L Troponin I LESS THAN 0.02 NG/ML D-Dimer Quantitative (PE/DVT) 1.45 MG/L FEU White Blood Count 7.4 TH/MM3 Red Blood Count 3.63 MIL/MM3 Hemoglobin 12.6 GM/DL Hematocrit 36.6 % Mean Corpuscular Volume 100.8 FL Mean Corpuscular Hemoglobin 34.6 PG Mean Corpuscular Hemoglobin 34.3 % Concent Red Cell Distribution Width 15.0 % Platelet Count 268 TH/MM3 Mean Platelet Volume 7.8 FL Sodium Level 137 MEQ/L Potassium Level 3.6 MEQ/L Chloride Level 102 MEQ/L Carbon Dioxide Level 28.3 MEQ/L Anion Gap 7 MEQ/L Blood Urea Nitrogen 12 MG/DL Creatinine 0.68 MG/DL Estimat Glomerular Filtration 118 ML/MIN Rate Random Glucose 88 MG/DL Calcium Level 8.3 MG/DL Assessment and Plan Assessment and Plan Atypical chest pain with no evidence of ischemia or PE. Consider neuro consult for paraesthesia complaints Aaron Sanchez MD Feb 15, 2017 08:36
--- NOTE | 2017-02-15 08:51 | HHI.PR ---
Subjective Remarks Follow-up for chest pain, paresthesias, alcohol abuse. The patient complains of left-sided numbness and tingling today. He complains of weakness in his legs. He complains of gait unsteadiness. No pain. He quit smoking one year ago. He states he "went to [place]" and "knows my symptoms are from alcohol" . He continues to drink a pint of liquor daily. Objective Vitals Vital Signs Date Time Temp Pulse Resp B/P Pulse Ox O2 Delivery O2 Flow Rate FiO2 02/15/17 08:07 98.2 88 18 122/80 95 02/15/17 06:39 95 21 02/15/17 06:31 89 18 144/92 97 02/15/17 03:28 79 02/15/17 03:16 97.9 84 18 142/64 96 02/15/17 01:12 20 02/15/17 00:18 98.0 87 20 96 124/95 02/15/17 00:15 89 02/14/17 20:10 89 02/14/17 20:02 160/86 Automatic Cuff 02/14/17 19:16 99.0 92 20 162/101 97 02/14/17 18:07 167/103 02/14/17 15:46 98.4 100 14 178/94 96 02/14/17 13:52 95 02/14/17 11:51 98.0 95 16 157/82 98 I/O 02/14/17 02/14/17 02/14/17 02/15/17 02/15/17 02/15/17 07:00 15:00 23:00 07:00 15:00 23:00 Intake Total 100 ml Balance 100 ml Intake Oral 100 ml # Voids 1 Result Diagram: 02/15/17 0601 02/15/[address] Angiography 02/14/17 0000 Signed Impressions: Service Date/Time: Tuesday, February 14, 2017 14:26 - CONCLUSION: 1. No evidence of PE. 2. No acute pulmonary infiltrates. 3. No significant change compared to the prior exam. Erick Townsend MD Chest X-Ray 02/13/171958 Signed Impressions: Service Date/Time: Monday, February 13, 2017 20:04 - CONCLUSION: Mild atelectasis or consolidation at the lateral left base. Jung Robertson MD Objective Remarks GENERAL: Well-developed well-nourished. In no acute distress. SKIN: Warm and dry. No lesions noted. HEENT: Normocephalic. Pupils equal and round. Mucous membranes pink and moist. CARDIOVASCULAR: Regular rate and rhythm. No murmur appreciated. RESPIRATORY: No accessory muscle use. Clear to auscultation. Breath sounds equal bilaterally. GASTROINTESTINAL: Abdomen soft, non-tender, nondistended. Bowel sounds x4. MUSCULOSKELETAL: No obvious deformities. Clubbing of the fingers. No edema. NEUROLOGICAL: Awake and alert. No focal neurological deficits. Moves upper and lower extremities spontaneously. Normal speech. No tremors. Strength 5/5. PSYCHIATRIC: Appropriate mood and affect; insight and judgment normal. A/P Problem List: (1) Atypical chest pain ICD Code: R07.89 Status: Acute (2) Alcohol abuse ICD Code: F10.10 Status: Chronic (3) Alcohol intoxication ICD Code: F10.929 Status: Acute (4) Paroxysmal atrial fibrillation ICD Code: I48.0 Status: Acute Assessment and Plan 61-year-old male with past medical history of chronic alcohol abuse and a reported history of CHF, COPD, A. fib, seizures who presented with chest pain Atypical chest pain: Cardiac enzymes are negative. Normal stress test in October. Mild elevation of d-dimer, check pulmonary angiogram which showed no PE. Cardiology consulted, discussed with Dr. Sanchez, cleared from cardiology perspective for discharge. Left-sided paresthesias: Suspect secondary to chronic alcohol use. Appears neurologically intact on exam. Check brain MRI. PT eval. Chronic alcoholism: Counseled on cessation, expresses no desire to quit. On Librium, taper. CIWA protocol. Thiamine, folate, multivitamins. Atrial fibrillation: Rate is controlled. Continue Cardizem and aspirin. Given persistent heavy alcohol use, not a candidate for anticoagulation. Telemetry monitoring. Hypertension: Chronic, controlled. Continue lisinopril. DVT prophylaxis: SCDs Discharge Planning Discharge planning if brain MRI is unremarkable and patient able to ambulate with PT. 1500 brain MRI with no acute abnormalities, mild chronic changes. Walked with PT, no issues per RN, clear for outpatient PT for therapy recommendations. Discussed with Dr. Oliveros. Discharge today. Volodymyr Ugalde Feb 15, 2017 08:51
[2017-02-15] MEDS ORDERED: LISINOPRIL 10 MG TAB PO SCH (09:00)
[2017-02-15] MEDS ORDERED: DILTIAZEM-CD 240 MG CAP ER PO SCH (09:00)
[2017-02-15] MEDS ORDERED: ASPIRIN EC 81 MG TABEC PO SCH (09:00)
[2017-02-15] MEDS: THIAMINE HCL 100 MG TAB PO SCH (11:08)
[2017-02-15] MEDS: FOLIC ACID 1 MG TAB PO SCH (11:08)
[2017-02-15] MEDS: MULTIVITAMINS/MINERALS THERAPEUTIC TAB PO SCH (11:11)
[2017-02-15] MEDS: SODIUM CHLORIDE 0.9% FLUSH 10 ML FLUSH IV FLUSH SCH (11:11)
--- NOTE | 2017-02-15 13:36 | ECHRPT ---
Indication: CARDIOMYOPATHY CONCLUSIONS Normal left ventricular size. Upper normal wall thickness.. The left ventricular systolic function is hyperdynamic with an estimated ejection fraction in the ra nge of 65- 70%. Normal wall motion. Structurally normal tricuspid valve. There is trace tricuspid valve regurgitation BP: 135 / 82 HR: 92 Rhythm: Sinus MEASUREMENTS (Male / Female) Normal Values Technical Quality:Poor 2D ECHO LV Diastolic Diameter PLAX 5.7 cm 4.2 - 5.9 / 3.9 - 5.3 cm LV Systolic Diameter PLAX 3.9 cm IVS Diastolic Thickness 1.1 cm 0.6 - 1.0 / 0.6 - 0.9 cm LVPW Diastolic Thickness 1.1 cm 0.6 - 1.0 / 0.6 - 0.9 cm LV Relative Wall Thickness 0.4 LVOT Diameter 2.3 cm Aortic Root Diameter 3.7 cm LA Systolic Diameter LX 4.0 cm 3.0 - 4.0 / 2.7 - 3.8 cm M-MODE AV Cusp Separation MM 1.6 cm DOPPLER AV Peak Velocity 171.0 cm/s AV Peak Gradient 11.7 mmHg AV Mean Gradient 6.0 mmHg AV Velocity Time Integral 29.2 cm LVOT Peak Velocity 80.5 cm/s LVOT Peak Gradient 2.6 mmHg LVOT Velocity Time Integral 14.9 cm LVOT Cardiac Index 2545.0 cm/minm AV Area Cont Eq vti 2.1 cm AV Area Cont Eq pk 2.0 cm Mitral E Point Velocity 80.0 cm/s Mitral A Point Velocity 89.8 cm/s Mitral E to A Ratio 0.9 LV E' Lateral Velocity 6.2 cm/s Mitral E to LV E' Lateral Ratio 12.8 LV E' Septal Velocity 6.8 cm/s Mitral E to LV E' Septal Ratio 11.7 TR Peak Velocity 297.0 cm/s TR Peak Gradient 35.3 mmHg PV Peak Velocity 67.7 cm/s PV Peak Gradient 1.8 mmHg FINDINGS LEFT VENTRICLE Normal left ventricular size. Mild concentric left ventricular hypertrophy. The left ventricular systolic function is hyperdynamic with an estimated ejection fraction in the ra nge of 65- 70%. No regional wall motion abnormalities are present. Left ventricular diastolic function parameters are normal. TRICUSPID VALVE Structurally normal tricuspid valve. There is trace tricuspid valve regurgitation. Huy Almaguer MD (Electronically Signed) Final Date:15 February 2017 13:34
--- NOTE | 2017-02-15 14:48 | RADRPT ---
EXAM DATE/TIME: 02/15/2017 13:50 [facility] COMPARISON: CT BRAIN W/O CONTRAST, December 15, 2016, 2:59. INDICATIONS : Left sided weakness. MEDICAL HISTORY : Seizures. Hypertension. Congestive heart failure. copd, dvt SURGICAL HISTORY : Hernia repair, femur ENCOUNTER: Subsequent ACUITY: 2 day PAIN SCORE: 0/10 LOCATION: cranial TECHNIQUE: Multiplanar, multisequence MRI of the brain was performed without contrast. FINDINGS: CEREBRUM: There is mild cerebral atrophy. Ventricles are normal in size given the degree of atrophy. No eviden ce of midline shift, mass lesion, hemorrhage or acute infarction. No extraaxial fluid collections ar e seen. The pituitary gland and suprasellar cistern are normal in configuration. WHITE MATTER: There is mild periventricular and subcortical white matter signal change. POSTERIOR FOSSA: The cerebellum and brainstem are intact. The 4th ventricle is midline. The cerebellopontine angle is unremarkable. The cerebellar tonsils are normal in position. DIFFUSION IMAGING: No focal areas of restricted diffusion are seen. No evidence of acute infarction. EXTRACRANIAL: The visualized portions of the orbits and paranasal sinuses are unremarkable. CONCLUSION: 1. No acute intracranial abnormality is identified. 2. There are age-appropriate chronic changes including mild cerebral atrophy and mild periventricular and subcortical white matter signal changes characteristic of chronic microvascular ischemia. Jung Scales MD on February 15, 2017 at 14:41 Board Certified Radiologist. This report was verified electronically.
[2017-02-15] MEDS ORDERED: FOLI1TAB6 PO (14:54)
[2017-02-15] MEDS ORDERED: GNP100TA3 PO (14:54)
== END 2017-02-15 18:04 | disposition home or self-care (01) ==
LOC: NEPC 19:49 → NEDA 21:26 → NEPGCP 23:14
PROVIDERS: ADMIT Family Medicine; ATTEND Family Medicine
DX: R07.89 Other chest pain (principal); E86.0 Dehydration; F10.129 Alcohol abuse with intoxication, unspecified; I48.91 Unspecified atrial fibrillation; I10 Essential (primary) hypertension; I50.9 Heart failure, unspecified; J44.9 Chronic obstructive pulmonary disease, unspecified; F41.9 Anxiety disorder, unspecified; R20.9 Unspecified disturbances of skin sensation; F32.9 Major depressive disorder, single episode, unspecified; G40.909 Epilepsy, unspecified, not intractable, without status epilepticus; M62.81 Muscle weakness (generalized); R20.0 Anesthesia of skin; R94.31 Abnormal electrocardiogram [ECG] [EKG]; Z79.899 Other long term (current) drug therapy; Z79.82 Long term (current) use of aspirin; Z87.891 Personal history of nicotine dependence; Z86.718 Personal history of other venous thrombosis and embolism; Z59.0 Homelessness
CPT/HCPCS: 70551; 71010; 71275; 80048; 80307; 82550; 82552; 83735; 83880; 84484; 85025; 85027; 85379; 85610; 85730; 87040; 90471; 90714; 93005; 93306; 96374; 96375; 97162; 99285; G0378; G8987; G8988; J2060; J2270; J2405; J7050; Q9967

== ENCOUNTER 2017-02-21 01:29 | Emergency (ER) | payer MEDICAID ==
[~2017-02-21] VITALS: Ht 188 cm; Wt 100.0 kg
[~2017-02-21 01:29] MED LIST changes: +FOLI1TAB6 PO; +GNP100TA3 PO
--- NOTE | 2017-02-21 02:14 | PD ---
HPI Chief Complaint: Alcohol/Drug Intoxication Time Seen by Provider: 02:09 Travel History International Travel<30 days: No Contact w/Intl Traveler<30days: No Traveled to known affect area: No History of Present Illness HPI 61-year-old white male presents to emergency department by EMS for evaluation of a fall. The patient was found intoxicated outside of the [facility]. The patient apparently had fallen on the ground and skinned both knees. He appeared to be unable to care for himself. He was brought to the ER. The patient here appears intoxicated. He has slurred speech. There is no evidence of head injury. This is a patient known to the medical staff for multiple ER visits due to alcohol intoxication. Patient admits to drinking a plate of alcohol today. PFSH Past Medical History Hx Anticoagulant Therapy: Yes (DVT-ASA) Arthritis: Yes (bursitis tendonitis) Asthma: No Atrial Fibrillation: Yes Autoimmune Disease: No Blood Disorders: No Anxiety: Yes Depression: Yes Heart Rhythm Problems: Yes (LBBB, afib RVR) Cancer: No Cardiac Catheterization: No Cardiovascular Problems: Yes (A FIB RVR, CHF, HTN left bundle branch) High Cholesterol: No Chemotherapy: No Chest Pain: Yes Congestive Heart Failure: Yes COPD: Yes Cerebrovascular Accident: No Diabetes: No Diminished Hearing: No Endocrine: No Gastrointestinal Disorders: No Genitourinary: Yes (not urinating "a lot") Headaches: No Hypertension: Yes Immune Disorder: No Implanted Vascular Access Dvce: No Kidney Stones: Yes Musculoskeletal: Yes (many broken bones in the past) Neurologic: Yes (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) Psychiatric: Yes Reproductive: No Respiratory: Yes (COPD) Immunizations Current: Yes Migraines: No Radiation Therapy: No Seizures: Yes Shingles: Yes Sleep Apnea: No Ulcer: No Tetanus Vaccination: < 5 Years Past Surgical History Abdominal Surgery: Yes (HERNIA REPAIR) Cardiac Surgery: No Coronary Artery Bypass Graft: No Ear Surgery: No Endocrine Surgery: No Eye Surgery: No Genitourinary Surgery: No Gynecologic Surgery: No Neurologic Surgery: No Oral Surgery: No Thoracic Surgery: No Tonsillectomy: Yes Other Surgery: Yes Family History Family Myocardial Infarction: Yes (maternal) Social History Alcohol Use: Yes (1-2 PINTS DAILY VODKA) Tobacco Use: No Substance Use: Yes (painkillers in the past) Allergies-Medications (Allergen,Severity, Reaction): Coded Allergies: Keflex (Verified Allergy, Severe, hives, 02/10/17) Penicillin (Verified Allergy, Severe, hives, 02/10/17) Sulfa (Verified Allergy, Severe, hives, 02/10/17) Nitroglycerin (Verified Allergy, Mild, 02/10/17) vomit Reported Meds & Prescriptions Reported Meds & Active Scripts Active Gnp Vitamin B-1 (Thiamine HCl) 100 Mg Tab 100 Mg PO DAILY Folic Acid 1 Mg Tablet 1 Mg PO DAILY Lisinopril 10 Mg Tab 10 Mg PO DAILY Cardizem CD 24 HR (Diltiazem CD 24 HR) 240 Mg Caper 240 Mg PO DAILY Aspirin EC (Aspirin) 81 Mg Tabdr 81 Mg PO DAILY Review of Systems ROS Limitations: Intoxication Physical Exam Narrative GENERAL: Well-nourished, well-developed patient. Patient is disheveled. He smells of urine and alcohol. He appears intoxicated with slurred speech. Odor of alcohol on his breath. SKIN: Warm and dry. Patient has abrasions to both knees. HEAD: Normocephalic and atraumatic. EYES: No scleral icterus. No injection or drainage. ENT: No nasal drainage noted. Mucous membranes pink. Airway patent. NECK: Supple, trachea midline. Moves head freely without obvious discomfort. CARDIOVASCULAR: Regular rate and rhythm without murmurs, gallops, or rubs. RESPIRATORY: Breath sounds equal bilaterally. No accessory muscle use. GASTROINTESTINAL: Abdomen soft, non-tender, nondistended. EXTREMITIES: No cyanosis or edema. Abrasions to both knees with mild swelling. No signs of wound infection. BACK: Nontender without obvious deformity. No CVA tenderness. NEURO: Patient is alert and oriented to person. no sensorimotor deficits. Patient appears ataxic secondary to intoxication. Nonfocal. Slurred speech. PSYCH: No delusions. No auditory or visual hallucinations. MDM Medical Decision Making Medical Screen Exam Complete: Yes Emergency Medical Condition: Yes Medical Record Reviewed: Yes Differential Diagnosis Differential diagnoses: Alcohol intoxication, substance abuse, electrolyte abnormality, malingering Narrative Course This is a 61-year-old well-known alcoholic who had fallen outside of the [facility]. He appears heavily intoxicated. I see no other evidence of trauma to the body other than the knees. No evidence of head injury or back injury. The patient will be allowed to sleep it off here in the examination room. Once the patient exhibits a higher level sobriety he will be allowed to leave. His wounds have been cleansed and dressed by the nursing staff. This is alcohol intoxication, bilateral knee abrasions Diagnosis Primary Impression: Alcohol intoxication Qualified Code: F10.920 - Alcohol intoxication, uncomplicated Additional Impression: Abrasion of knee, bilateral Patient Instructions: General Instructions Additional Instructions: Rest. Increase fluids. Avoid alcohol. Avoid illegal substances. Daily wound care with soap, water, Neosporin. Follow-up with [facility] for detox. Do not operate a car or any heavy machinery under the influence of alcohol or drugs. Follow-up with a medical doctor this week. Return to the ER for emergencies Med/Other Pt SpecificInfo: Wound Care Disposition: 01 DISCHARGE HOME Condition: Stable Obed To Feb 21, 2017 02:14
[2017-02-21 02:15] VITALS: BP 142/92; PULSE 116; RESP 18; TEMP 97.9; O2SAT 99
[2017-02-21 06:20] VITALS: PULSE 115; RESP 16; O2SAT 95
== END 2017-02-21 09:17 | disposition home or self-care (01) ==
LOC: NEPD 01:29
DX: F10.129 Alcohol abuse with intoxication, unspecified (principal); S80.212A Abrasion, left knee, initial encounter; S80.211A Abrasion, right knee, initial encounter; I48.91 Unspecified atrial fibrillation; I44.7 Left bundle-branch block, unspecified; I50.9 Heart failure, unspecified; I10 Essential (primary) hypertension; J44.9 Chronic obstructive pulmonary disease, unspecified; W18.30XA Fall on same level, unspecified, initial encounter
CPT/HCPCS: 99283

== ENCOUNTER 2017-03-01 19:55 | Observation (INO) | payer MEDICAID ==
[~2017-03-01] VITALS: Ht 188 cm; Wt 100.0 kg
[2017-03-01 20:01] VITALS: BP 138/78; PULSE 112; RESP 18; TEMP 98.6; O2SAT 95
[2017-03-01] MEDS ORDERED: LORazepam 2 MG/ML VIAL IV PUSH ONE (20:30)
[2017-03-01] MEDS ORDERED: MORPHINE SULFATE 8 MG/ML INJ IV PUSH ONE (20:30)
[2017-03-01] MEDS ORDERED: SODIUM CHLOR 0.9% 1000 ML INJ 1,000 ML IV ONE (20:30)
[2017-03-01] MEDS ORDERED: SODIUM CHLORIDE 0.9% FLUSH 10 ML FLUSH IVF PRN (20:30)
[2017-03-01 20:36] VITALS: O2SAT 99
--- NOTE | 2017-03-01 21:09 | RADRPT ---
EXAM DATE/TIME: 03/01/2017 20:41 [facility] COMPARISON: CHEST SINGLE AP, February 13, 2017, 20:04. INDICATIONS : Patient became very dizzy and fell this evening. Patient states chest and rib pain. MEDICAL HISTORY : Cardiovascular disease. Deep venous thrombosis. Chronic obstructive SURGICAL HISTORY : None. ENCOUNTER: Initial ACUITY: 1 day PAIN SCORE: 8/10 LOCATION: Bilateral chest FINDINGS: Cardiomegaly. Right lung is clear. Left basilar atelectasis or scarring. Osseous structures are intac t. CONCLUSION: No significant change has occurred. Daniel Thorne MD on March 01, 2017 at 21:07 Board Certified Radiologist. This report was verified electronically.
[2017-03-01 21:25] LABS: APTT (PATIENT) 27.6 SEC (24.3-30.1)
[2017-03-01 21:26] LABS: ALT (GPT) 31 U/L (12-78); ANION GAP 11 MEQ/L (5-15); AST (GOT) 35 U/L (15-37); AUTOMATED NEUTROPHIL # 5.8 TH/MM3 (1.8-7.7); BASOPHIL # 0.1 TH/MM3 (0-0.2); BASOPHIL % 0.7 % (0.0-2.0); BICARBONATE 23.6 MEQ/L (21.0-32.0); BLOOD UREA NITROGEN 19 MG/DL (7-18); CHLORIDE 104 MEQ/L (98-107); EOSINOPHIL # 0.1 TH/MM3 (0-0.4); EOSINOPHIL % 1.4 % (0.0-4.0); GLOMERULAR FILTRATION RATE 47 ML/MIN (>89); HEMATOCRIT 38.5 % (39.0-51.0); HEMO FLAGS DIFF FINAL; LYMPH % 14.4 % (9.0-44.0); LYMPHOCYTE # 1.2 TH/MM3 (1.0-4.8); MEAN CORPUSCULAR HEMOGLOBIN 34.7 PG (27.0-34.0); MEAN CORPUSCULAR HGB CONC 33.6 % (32.0-36.0); MONO % 16.4 % (0.0-8.0); NEUT % 67.1 % (16.0-70.0); PLATELET COUNT 329 TH/MM3 (150-450); POTASSIUM 3.6 MEQ/L (3.5-5.1); RED BLOOD COUNT 3.73 MIL/MM3 (4.50-5.90); RED CELL DISTRIBUTION WIDTH 15.4 % (11.6-17.2); SODIUM (NA) 139 MEQ/L (136-145); WHITE BLOOD COUNT 8.6 TH/MM3 (4.0-11.0)
[2017-03-01 21:29] LABS: ALKALINE PHOSPHATASE 54 U/L (45-117); CREATINE KINASE 101 U/L (39-308); TOTAL BILIRUBIN ADULT 0.7 MG/DL (0.2-1.0)
--- NOTE | 2017-03-01 21:44 | PD ---
HPI Chief Complaint: Cardiac Complaint Time Seen by Provider: 20:14 Travel History International Travel<30 days: No Contact w/Intl Traveler<30days: No Traveled to known affect area: No History of Present Illness HPI Patient is a 60-year-old male with history of alcoholism, CHF, COPD, hypertension, seizures, A. fib, left bundle branch block, presents to emergency room after syncopal episode. Patient reports that he was walking in front of a restaurant today when all of a sudden he felt lightheaded and dizzy ("my head was going in circles" and began to have chest pain, diaphoresis and sob. Patient reports that before he knew it he had passed out and was on the floor. Patient reports that he hit the back of his head on the hard floor and was out for a few minutes. Patient c/o of posterior headache as well as left sided posterior rib pain. Denies chest pain at this time, reports that he is an alcoholic - he did drink 2 shots of alcohol prior to syncopal episode EMS did give patient lidocaine on route to ER as patient had an episode of bigemeny PFSH Past Medical History Hx Anticoagulant Therapy: Yes (DVT-ASA) Arthritis: Yes (bursitis tendonitis) Asthma: No Atrial Fibrillation: Yes Autoimmune Disease: No Blood Disorders: No Anxiety: Yes Depression: Yes Heart Rhythm Problems: Yes (LBBB, afib RVR) Cancer: No Cardiac Catheterization: No Cardiovascular Problems: Yes (A FIB RVR, CHF, HTN left bundle branch) High Cholesterol: No Chemotherapy: No Chest Pain: Yes Congestive Heart Failure: Yes COPD: Yes Cerebrovascular Accident: No Diabetes: No Diminished Hearing: No Endocrine: No Gastrointestinal Disorders: No Genitourinary: Yes (not urinating "a lot") Headaches: No Hypertension: Yes Immune Disorder: No Implanted Vascular Access Dvce: No Kidney Stones: Yes Musculoskeletal: Yes (many broken bones in the past) Neurologic: Yes (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) Psychiatric: Yes Reproductive: No Respiratory: Yes (COPD) Immunizations Current: Yes Migraines: No Radiation Therapy: No Seizures: Yes Shingles: Yes Sleep Apnea: No Ulcer: No ?: Not Past Surgical History Abdominal Surgery: Yes (HERNIA REPAIR) Cardiac Surgery: No Coronary Artery Bypass Graft: No Ear Surgery: No Endocrine Surgery: No Eye Surgery: No Genitourinary Surgery: No Gynecologic Surgery: No Neurologic Surgery: No Oral Surgery: No Thoracic Surgery: No Tonsillectomy: Yes Other Surgery: Yes Family History Family Myocardial Infarction: Yes (maternal) Social History Alcohol Use: Yes (1-2 PINTS DAILY VODKA) Tobacco Use: No Substance Use: Yes (painkillers in the past) Allergies-Medications (Allergen,Severity, Reaction): Coded Allergies: Keflex (Verified Allergy, Severe, hives, 02/10/17) Penicillin (Verified Allergy, Severe, hives, 02/10/17) Sulfa (Verified Allergy, Severe, hives, 02/10/17) Nitroglycerin (Verified Allergy, Mild, 02/10/17) vomit Reported Meds & Prescriptions Reported Meds & Active Scripts Active Folic Acid 1 Mg Tablet 1 Mg PO DAILY Lisinopril 10 Mg Tab 10 Mg PO DAILY Aspirin EC (Aspirin) 81 Mg Tabdr 81 Mg PO DAILY Review of Systems General / Constitutional: No: Fever Eyes: No: Visual changes HENT: No: Headaches Cardiovascular: Positive: Chest Pain or Discomfort Respiratory: Positive: Shortness of Breath Gastrointestinal: No: Abdominal Pain Genitourinary: No: Dysuria Musculoskeletal: No: Pain Skin: No Rash Neurologic: Positive: Dizziness, Headache, No: Weakness Psychiatric: No: Depression Endocrine: No: Polydipsia Hematologic/Lymphatic: No: Easy Bruising Physical Exam Narrative GENERAL: Moderate distress SKIN: Focused skin assessment warm/dry. HEAD: Atraumatic. Normocephalic. EYES: Pupils equal and round. No scleral icterus. No injection or drainage. ENT: No nasal bleeding or discharge. Mucous membranes pink and moist. NECK: Trachea midline. No JVD. CARDIOVASCULAR: Tachycardic No murmur appreciated. Patient with pain to his left posterior ribs, no bruising or abrasions on exam RESPIRATORY: No accessory muscle use. Clear to auscultation. Breath sounds equal bilaterally. GASTROINTESTINAL: Abdomen soft, non-tender, nondistended. Hepatic and splenic margins not palpable. MUSCULOSKELETAL: No obvious deformities. No clubbing. No cyanosis. No edema. NEUROLOGICAL: Awake and alert. No obvious cranial nerve deficits. Motor grossly within normal limits. Normal speech. PSYCHIATRIC: Patient anxious on exam Data Data Last Documented VS Vital Signs Date Time Temp Pulse Resp B/P Pulse Ox O2 Delivery O2 Flow Rate FiO2 03/01/17 20:36 99 Nasal Cannula 03/01/17 20:06 114 03/01/17 20:01 98.6 18 138/78 Orders B-Type Natriuretic Peptide (03/01/17:) Ckmb (Isoenzyme) Profile (03/01/17 20:26) Complete Blood Count With Diff (03/01/17 20:) Comprehensive Metabolic Panel (03/01/17:) Magnesium (Mg) (03/01/17:) Prothrombin Time / Inr (Pt) (03/01/17:) Act Partial Throm Time (Ptt) (03/01/17:) Troponin I (03/01/17:) Lipase (03/01/17:) Chest, Single Ap (03/01/17:) Ecg Monitoring (03/01/17:) Iv Access Insert/Monitor (03/01/17:) Oximetry (03/01/17:) Sodium Chloride 0.9% Flush (Ns Flush) (03/01/17 20:30) Ct Pulmonary Angiogram (03/01/17 20:) Ct Brain W/O Iv Contrast(Rout) (03/01/17 20:) Ct Cerv Spine W/O Contrast (03/01/17 20:) Drug Screen, Random Urine (03/01/17:) Alcohol (Ethanol) (03/01/17 20:) Sodium Chlor 0.9% 1000 Ml Inj (Ns 1000 M (03/01/17 20:30) Lorazepam Inj (Ativan Inj) (03/01/17 20:30) Morphine Inj (Morphine Inj) (03/01/17 20:30) Electrocardiogram (03/01/17 20:11) CKMB (03/01/17 20:40) CKMB% (03/01/17 20:40) Ecg Monitoring (03/01/17 22:36) Morphine Inj (Morphine Inj) (03/01/17 22:45) Iohexol 350 Inj (Omnipaque 350 Inj) (03/02/17 00:30) Labs Laboratory Tests Test 03/01/17 20:40 White Blood Count 8.6 TH/MM3 Red Blood Count 3.73 MIL/MM3 Hemoglobin 12.9 GM/DL Hematocrit 38.5 % Mean Corpuscular Volume 103.0 FL Mean Corpuscular Hemoglobin 34.7 PG Mean Corpuscular Hemoglobin 33.6 % Concent Red Cell Distribution Width 15.4 % Platelet Count 329 TH/MM3 Mean Platelet Volume 6.8 FL Neutrophils (%) (Auto) 67.1 % Lymphocytes (%) (Auto) 14.4 % Monocytes (%) (Auto) 16.4 % Eosinophils (%) (Auto) 1.4 % Basophils (%) (Auto) 0.7 % Neutrophils # (Auto) 5.8 TH/MM3 Lymphocytes # (Auto) 1.2 TH/MM3 Monocytes # (Auto) 1.4 TH/MM3 Eosinophils # (Auto) 0.1 TH/MM3 Basophils # (Auto) 0.1 TH/MM3 CBC Comment DIFF FINAL Differential Comment Prothrombin Time 11.0 SEC Prothromb Time International 1.0 RATIO Ratio Activated Partial 27.6 SEC Thromboplast Time Sodium Level 139 MEQ/L Potassium Level 3.6 MEQ/L Chloride Level 104 MEQ/L Carbon Dioxide Level 23.6 MEQ/L Anion Gap 11 MEQ/L Blood Urea Nitrogen 19 MG/DL Creatinine 1.50 MG/DL Estimat Glomerular Filtration 47 ML/MIN Rate Random Glucose 90 MG/DL Calcium Level 8.8 MG/DL Magnesium Level 2.0 MG/DL Total Bilirubin 0.7 MG/DL Aspartate Amino Transf 35 U/L (AST/SGOT) Alanine Aminotransferase 31 U/L (ALT/SGPT) Alkaline Phosphatase 54 U/L Total Creatine Kinase 101 U/L Creatine Kinase MB 0.9 NG/ML Troponin I LESS THAN 0.02 NG/ML B-Type Natriuretic Peptide 30 PG/ML Total Protein 7.2 GM/DL Albumin 3.5 GM/DL Lipase 129 U/L Ethyl Alcohol Level 92 MG/DL [facility] Medical Decision Making Medical Screen Exam Complete: Yes Emergency Medical Condition: Yes Interpretation(s) EKG at 2010: Sinus tach 111bpm, qt/qtc: 338/404; ekg similar to previous ekg from 02/15/17 Vital Signs Date Time Temp Pulse Resp B/P Pulse Ox O2 Delivery O2 Flow Rate FiO2 03/01/17 20:36 99 Nasal Cannula 03/01/17 20:06 114 03/01/17 20:01 98.6 112 18 138/78 95 Differential Diagnosis Differential includes intracranial hemorrhage, arrhythmia, ACS, alcohol intoxication, alcoholic withdrawal seizures, electrolyte abnormality, rib fractures, pneumothorax, PE Narrative Course 61-year-old male who presents to emergency room with multiple complaints. Patient reports that he had an episode of syncope after he felt lightheaded and dizzy and had chest pain and shortness of breath earlier today. Patient was placed on a engine monitor upon arrival to the emergency room. EKG was obtained, patient with sinus tachycardia with ST-T wave changes which were similar to his previous EKGs. CT of head and neck as well as the chest ordered. Labs including cardiac enzymes ordered. Patient is an alcoholic, he is tachycardic, concerns for possible alcohol withdrawal seizures - patient was given 1 mg of Ativan in the emergency room. Patient was given 4 mg of IV morphine for pain as he complaints of right sided rib pain. Vital Signs Date Time Temp Pulse Resp B/P Pulse Ox O2 Delivery O2 Flow Rate FiO2 03/01/17 20:36 99 Nasal Cannula 03/01/17 20:06 114 03/01/17 20:01 98.6 112 18 138/78 95 Laboratory Tests Test 03/01/17 20:40 White Blood Count 8.6 TH/MM3 (4.0-11.0) Red Blood Count 3.73 MIL/MM3 (4.50-5.90) Hemoglobin 12.9 GM/DL (13.0-17.0) Hematocrit 38.5 % (39.0-51.0) Mean Corpuscular Volume 103.0 FL (80.0-100.0) Mean Corpuscular Hemoglobin 34.7 PG (27.0-34.0) Mean Corpuscular Hemoglobin 33.6 % Concent (32.0-36.0) Red Cell Distribution Width 15.4 % (11.6-17.2) Platelet Count 329 TH/MM3 (150-450) Mean Platelet Volume 6.8 FL (7.0-11.0) Neutrophils (%) (Auto) 67.1 % (16.0-70.0) Lymphocytes (%) (Auto) 14.4 % (9.0-44.0) Monocytes (%) (Auto) 16.4 % (0.0-8.0) Eosinophils (%) (Auto) 1.4 % (0.0-4.0) Basophils (%) (Auto) 0.7 % (0.0-2.0) Neutrophils # (Auto) 5.8 TH/MM3 (1.8-7.7) Lymphocytes # (Auto) 1.2 TH/MM3 (1.0-4.8) Monocytes # (Auto) 1.4 TH/MM3 (0-0.9) Eosinophils # (Auto) 0.1 TH/MM3 (0-0.4) Basophils # (Auto) 0.1 TH/MM3 (0-0.2) CBC Comment DIFF FINAL Differential Comment Prothrombin Time 11.0 SEC (9.8-11.6) Prothromb Time International 1.0 RATIO Ratio Activated Partial 27.6 SEC Thromboplast Time (24.3-30.1) Sodium Level 139 MEQ/L (136-145) Potassium Level 3.6 MEQ/L (3.5-5.1) Chloride Level 104 MEQ/L (98-107) Carbon Dioxide Level 23.6 MEQ/L (21.0-32.0) Anion Gap 11 MEQ/L (5-15) Blood Urea Nitrogen 19 MG/DL (7-18) Creatinine 1.50 MG/DL (0.60-1.30) Estimat Glomerular Filtration 47 ML/MIN (>89) Rate Random Glucose 90 MG/DL (74-106) Calcium Level 8.8 MG/DL (8.5-10.1) Magnesium Level 2.0 MG/DL (1.5-2.5) Total Bilirubin 0.7 MG/DL (0.2-1.0) Aspartate Amino Transf 35 U/L (15-37) (AST/SGOT) Alanine Aminotransferase 31 U/L (12-78) (ALT/SGPT) Alkaline Phosphatase 54 U/L (45-117) Total Creatine Kinase 101 U/L (39-308) Creatine Kinase MB 0.9 NG/ML (0.5-3.6) Troponin I LESS THAN 0.02 NG/ML (0.02-0.05) B-Type Natriuretic Peptide 30 PG/ML (0-100) Total Protein 7.2 GM/DL (6.4-8.2) Albumin 3.5 GM/DL (3.4-5.0) Lipase 129 U/L (73-393) Ethyl Alcohol Level 92 MG/DL (0-5) Last Impressions Head CT 03/01/172025 Signed Impressions: Service Date/Time: Thursday, March 02, 2017 00:14 - CONCLUSION: 1. No evidence of acute intracranial pathology. No masses are identified. Aaron Way MD Chest X-Ray 03/01/172025 Signed Impressions: Service Date/Time: February 20:41 - CONCLUSION: No significant change has occurred. Daniel Thorne MD Cervical Spine CT 03/01/172025 Signed Impressions: Service Date/Time: Thursday, March 02, 2017 00:15 - CONCLUSION: 1. Moderate degenerative changes as described above. There is no evidence of acute fracture. Aaron Way MD CT Angiography 03/01/172025 Draft Impressions: Service Date/Time: Thursday, March 02, 2017 00:18 - CONCLUSION: 1. No evidence of pulmonary embolism. 2. Posterior left rib fractures. There is no evidence of pneumothorax. Aaron Way MD Diagnosis Primary Impression: Syncope Additional Impression: Left rib fracture Admitting Information Admitting Physician Requests: Observation Elvira Mena DO Mar 01, 2017 21:44
[2017-03-01 21:46] LABS: CKMB 0.9 NG/ML (0.5-3.6)
[2017-03-01] MEDS ORDERED: MORPHINE SULFATE 4 MG/ML INJ IV PUSH ONE (22:45)
[2017-03-02] VITALS (8 sets, daily range): BP systolic 129–153; BP diastolic 69–87; PULSE 74–106; RESP 16–18; TEMP 97.6–98.6; O2SAT 94–99
[2017-03-02] MEDS ORDERED: IOHEXOL 350 MG/ML 10 ML VIAL (for RAD DIAG) IV ONE (00:30)
--- NOTE | 2017-03-02 00:53 | RADRPT ---
EXAM DATE/TIME: 03/02/2017 00:14 [facility] COMPARISON: CT BRAIN W/O CONTRAST, December 15, 2016, 2:59. INDICATIONS : Syncopal episode, possible fall. RADIATION DOSE: 56.35 CTDIvol (mGy) MEDICAL HISTORY : Hypertension. SURGICAL HISTORY : None. ENCOUNTER: Initial ACUITY: 1 day PAIN SCALE: 0/10 LOCATION: cranial TECHNIQUE: Multiple contiguous axial images were obtained of the head. Using automated exposure control and adj ustment of the mA and/or kV according to patient size, radiation dose was kept as low as reasonably a chievable to obtain optimal diagnostic quality images. DICOM format image data is available electro nically for review and comparison. FINDINGS: CEREBRUM: The ventricles are normal for age. No evidence of midline shift, mass lesion, hemorrhage or acute in farction. No extra-axial fluid collections are seen. POSTERIOR FOSSA: The cerebellum and brainstem are intact. The 4th ventricle is midline. The cerebellopontine angle i s unremarkable. EXTRACRANIAL: The visualized portion of the orbits is intact. SKULL: The calvaria is intact. No evidence of skull fracture. CONCLUSION: 1. No evidence of acute intracranial pathology. No masses are identified. Aaron Way MD on March 02, 2017 at 0:51 Board Certified Radiologist. This report was verified electronically.
--- NOTE | 2017-03-02 00:55 | RADRPT ---
EXAM DATE/TIME: 03/02/2017 00:15 [facility] COMPARISON: No previous studies available for comparison. INDICATIONS : Trauma, possible fall. RADIATION DOSE: 41.84 CTDIvol (mGy) MEDICAL HISTORY : Hypertension. SURGICAL HISTORY : None. ENCOUNTER: Initial ACUITY: 1 day PAIN SCALE: 0/10 LOCATION: neck TECHNIQUE: Volumetric scanning of the cervical spine was performed. Multiplanar reconstructions in the sagittal, coronal and oblique axial planes were performed. Using automated exposure control and adjustment o f the mA and/or kV according to patient size, radiation dose was kept as low as reasonably achievable to obtain optimal diagnostic quality images. DICOM format image data is available electronically f or review and comparison. FINDINGS: CT of the cervical spine was performed in sagittal and axial planes. There is anterolisthesis likely related to facet arthritis at C3-C4-1-2 to 3 mm. There is multilevel disc space narrowing and margina l osteophyte formation maximal at C5-C6. No focal areas of marrow replacement are identified. The aircraft quality control inspector niocervical junction appears normal. C2-C3: No significant abnormalities identified. C3-C4: There is mild annular bulge of the disc. There is moderate facet arthritis on the right. There is no significant spinal canal stenosis. The neural foramina are clear bilaterally. C4-C5: No significant abnormalities identified. C5-C6: There is osteophytic ridging along the posterior aspect of vertebral body. There is mild neural desiree inal narrowing bilaterally. There is no significant spinal canal stenosis. C6-C7: There is mild annular bulge of the disc. There is no significant spinal canal stenosis. There is mild left sided neural foraminal narrowing. C7-T1: There is no evidence of disc protrusion or spinal canal stenosis. There is moderate facet arthritis o n the right. The neural foramina are clear bilaterally. CONCLUSION: 1. Moderate degenerative changes as described above. There is no evidence of acute fracture. Aaron Way MD on March 02, 2017 at 0:52 Board Certified Radiologist. This report was verified electronically.
--- NOTE | 2017-03-02 00:59 | RADRPT ---
EXAM DATE/TIME: 03/02/2017 00:18 [facility] COMPARISON: CT PULMONARY ANGIOGRAM, February 14, 2017, 14:26. INDICATIONS : Syncopal episode with possible fall. Left side rib pain. IV CONTRAST: 75 cc Omnipaque 350 (iohexol) IV RADIATION DOSE: 15.85 CTDIvol (mGy) MEDICAL HISTORY : Hypertension. Congestive heart failure. Chronic obstructive pulmonary disease. SURGICAL HISTORY : None. ENCOUNTER: Initial ACUITY: 1 day PAIN SCALE: 8/10 LOCATION: Left posterior ribs TECHNIQUE: Volumetric scanning of the chest was performed using a pulmonary embolism protocol MIP images were re constructed. Using automated exposure control and adjustment of the mA and/or kV according to patien t size, radiation dose was kept as low as reasonably achievable to obtain optimal diagnostic quality images. DICOM format image data is available electronically for review and comparison. Follow-up recommendations for incidentally detected pulmonary nodules are based at a minimum on nodul e size and patient risk factors according to Fleischner Society Guidelines. FINDINGS: No pulmonary nodules are identified. A small left effusion is present with left basilar atelectasis. There is no evidence of pneumothorax. There are fractures of the posterior left seventh eighth and n inth ribs. Examination of the pulmonary vasculature demonstrates good filling of the main, lobar and segmental b ranches. There are no filling defects to suggest pulmonary embolism. Multiplanar reconstructions are also unremarkable. Examination of the mediastinum demonstrates no abnormally enlarged lymph nodes by CT criteria. No axi llary or hilar abnormalities are identified. Coronary artery calcifications are not present. There ar e multiple hypodensities within the liver compatible with hepatic cysts the largest measuring 2 cm in segment 2. CONCLUSION: 1. No evidence of pulmonary embolism. 2. Posterior left rib fractures. There is no evidence of pneumothorax. Aaron Way MD on March 02, 2017 at 0:54 Board Certified Radiologist. This report was verified electronically.
[2017-03-02] MEDS: SODIUM CHLOR 0.9% 1000 ML INJ 1,000 ML IV SCH ×3 (02:01→22:01)
[2017-03-02] MEDS ORDERED: ACETAMINOPHEN 325 MG TAB PO PRN (02:15)
[2017-03-02] MEDS ORDERED: HALOPERIDOL LACTATE 5 MG/ML AMP IM PRN (02:15)
[2017-03-02] MEDS ORDERED: LACTULOSE SYRUP 20 GM/30 ML CUP PO PRN (02:15)
[2017-03-02] MEDS ORDERED: ONDANSETRON HCL 4 MG/2 ML VIAL IVP PRN (02:15)
[2017-03-02] MEDS ORDERED: LORazepam 1 MG TAB PO PRN (02:15)
[2017-03-02] MEDS ORDERED: SENNOSIDES 8.6 MG TAB PO PRN (02:15)
[2017-03-02] MEDS ORDERED: BISACODYL 10 MG SUPP RECTAL PRN (02:15)
[2017-03-02] MEDS ORDERED: SODIUM CHLORIDE 0.9% FLUSH 10 ML FLUSH IV FLUSH PRN (02:15)
[2017-03-02] MEDS ORDERED: MAGNESIUM HYDROXIDE SUSP 30 ML CUP PO PRN (02:15)
[2017-03-02] MEDS ORDERED: LORazepam 2 MG/ML VIAL IV PUSH PRN ×2 (02:15)
[2017-03-02] MEDS ORDERED: LORazepam 2 MG TAB PO PRN (02:15)
[2017-03-02] MEDS ORDERED: FLUMAZENIL 0.5 MG/5 ML VIAL IV PUSH PRN (02:15)
[2017-03-02] MEDS ORDERED: LIDOCAINE HCL 5% PATCH T-DERMAL PRN (02:30)
--- NOTE | 2017-03-02 03:07 | HHI.HP ---
HPI Service [facility] Primary Care Physician No Primary Care Physician Admission Diagnosis Syncope Diagnoses: (1) Syncope Diagnosis: Principal (2) Left rib fracture Diagnosis: Principal (3) Alcohol abuse Diagnosis: Principal (4) Renal insufficiency Diagnosis: Principal Travel History International Travel<30 Days: No Contact w/Intl Traveler <30 Da: No Traveled to Known Affected Are: No History of Present Illness This is a 61-year-old male with a PMH of HTN, COPD, Alcohol Abuse, Anxiety, Depression and LBBB who was brought to the ER by EMS after syncopal episode. Pt was found down in front of [employer]. States he drank 2 shots and felt acute lightheadedness, chest pain and diaphoresis w/ subsequent syncope. No witnessed seizure activity. Recent admit 02/13-02/14/17 for c/o chest pain w/ negative work up, Echo 02/13/17 w/ EF 65-70%, normal systolic function. On arrival, BP 138/78, HR 112, O2 sats 95% on RA, Afebrile. CBC at baseline. Creatinine 1.50, previously 0.68 on 02/15/17. Troponin negative. INR 1.0. Alcohol 92. CT Evidence acute findings. CXR negative. CT C-spine with moderate degenerative changes, no acute fracture. CTA Pulm negative for PE, posterior left rib fractures, no pneumothorax. Review of Systems Except as stated in HPI: all other systems reviewed are Neg ROS: 14 point review of systems otherwise negative. Past Family Social History Past Medical History PMH: HTN, COPD, Alcohol Abuse, Anxiety, Depression and LBBB Past Surgical History PAST SURGICAL HISTORY: Hernia Repair, Tonsillectomy Allergies: Coded Allergies: Keflex (Verified Allergy, Severe, hives, 02/10/17) Penicillin (Verified Allergy, Severe, hives, 02/10/17) Sulfa (Verified Allergy, Severe, hives, 02/10/17) Nitroglycerin (Verified Allergy, Mild, 02/10/17) vomit Family History PAST FAMILY HISTORY: Reviewed. No h/o DM or CAD Social History PAST SOCIAL HISTORY: Drinks 1-2 pints Vodka/day. Negative for tobacco. H/o Substance Abuse Physical Exam Vital Signs Vital Signs Date Time Temp Pulse Resp B/P Pulse Ox O2 Delivery O2 Flow Rate FiO2 03/02/17 02:03 80 18 140/70 99 Room Air 03/01/17 20:36 99 Nasal Cannula 03/01/17 20:06 114 03/01/17 20:01 98.6 112 18 138/78 95 Physical Exam PE: GENERAL: Middle-aged male in no acute distress, requesting pain medication. HEENT: PERRLA, EOMI. No scleral icterus or conjunctival pallor. No lid lag or facial droop. CARDIOVASCULAR: Regular rate and rhythm. No obvious murmurs to auscultation. Left-sided rib pain to palpation. RESPIRATORY: No obvious rhonchi or wheezing. Clear to auscultation. Breath sounds equal bilaterally. GASTROINTESTINAL: Abdomen soft, non-tender, nondistended. BS normal. MUSCULOSKELETAL: Extremities without clubbing, cyanosis, or edema. No obvious deformities. NEUROLOGICAL: Awake, alert and oriented x4. No focal neurologic deficits. Moving both upper and lower extremities spontaneously. Laboratory Laboratory Tests Test 03/01/17 20:40 White Blood Count 8.6 Red Blood Count 3.73 Hemoglobin 12.9 Hematocrit 38.5 Mean Corpuscular Volume 103.0 Mean Corpuscular Hemoglobin 34.7 Mean Corpuscular Hemoglobin 33.6 Concent Red Cell Distribution Width 15.4 Platelet Count 329 Mean Platelet Volume 6.8 Neutrophils (%) (Auto) 67.1 Lymphocytes (%) (Auto) 14.4 Monocytes (%) (Auto) 16.4 Eosinophils (%) (Auto) 1.4 Basophils (%) (Auto) 0.7 Neutrophils # (Auto) 5.8 Lymphocytes # (Auto) 1.2 Monocytes # (Auto) 1.4 Eosinophils # (Auto) 0.1 Basophils # (Auto) 0.1 CBC Comment DIFF FINAL Differential Comment Prothrombin Time 11.0 Prothromb Time International 1.0 Ratio Activated Partial 27.6 Thromboplast Time Sodium Level 139 Potassium Level 3.6 Chloride Level 104 Carbon Dioxide Level 23.6 Anion Gap 11 Blood Urea Nitrogen 19 Creatinine 1.50 Estimat Glomerular Filtration 47 Rate Random Glucose 90 Calcium Level 8.8 Magnesium Level 2.0 Total Bilirubin 0.7 Aspartate Amino Transf 35 (AST/SGOT) Alanine Aminotransferase 31 (ALT/SGPT) Alkaline Phosphatase 54 Total Creatine Kinase 101 Creatine Kinase MB 0.9 Troponin I LESS THAN 0.02 B-Type Natriuretic Peptide 30 Total Protein 7.2 Albumin 3.5 Lipase 129 Ethyl Alcohol Level 92 Result Diagram: 03/01/17203903/01/172039 Assessment and Plan Problem List: (1) Syncope ICD Code: R55 Status: Acute (2) Renal insufficiency ICD Code: N28.9 Status: Acute (3) Left rib fracture ICD Code: S22.32XA Status: Acute (4) Alcohol abuse ICD Code: F10.10 Status: Chronic Assessment and Plan A/P: 1. Syncope: acute onset of dizziness/lightheadedness and diaphoresis followed by syncopal event, +head trauma, CT Head/C-Spine w/ no acute findings, images reviewed by me. Trop negative, EKG w/ no acute changes from previous. CXR negative, images reviewed by me. Admit for Observation. Recent admit 02/13- for c/o chest pain, Echo 02/13/17 w/ EF 65-70%, normal systolic function. Check serial cardiac enzymes, IVF for hydration. Likely secondary to alcohol intoxication and dehydration. 2. Renal Insufficiency: KIMO. Creatinine 1.50, previously 0.68 on 02/15/17, IVF for hydration, repeat labs in am. 3. Left Rib Fx: s/p fall w/ c/o left-sided rib pain. CTA Pulm negative for PE , +posterior left rib fractures, no pneumothorax, images reviewed by me. Lidoderm patch prn. 4. Alcohol Abuse: w/ Acute Alcohol Intoxication, Alcohol 92. Drinks daily, high risk for withdrawal, CIWA, Seizure Precautions, MVT/Thiamine/Folate replacement. 5. DVT Prophylaxis: SCD/Teds. 6. Social work for d/c planning as needed. 7. Case discussed w/ ER physician at length. Luz Maria Chawla MD Mar 02, 2017 03:07
[2017-03-02] MEDS: LORazepam 2 MG/ML VIAL IV PUSH PRN ×3 (06:00→20:15)
[2017-03-02] MEDS: MULTIVITAMINS/MINERALS THERAPEUTIC TAB PO SCH (08:40)
[2017-03-02] MEDS: THIAMINE HCL 100 MG TAB PO SCH (08:40)
[2017-03-02] MEDS: DOCUSATE SODIUM 50 MG/SENNA 8.6 MG TAB PO SCH ×2 (08:40→21:00)
[2017-03-02] MEDS: ASPIRIN 81 MG CHEW TAB CHEW SCH (08:41)
[2017-03-02] MEDS: FOLIC ACID 1 MG TAB PO SCH (08:46)
--- NOTE | 2017-03-02 08:48 | EKG ---
Date Performed: 03/01/2017 Time Performed: 20:11:50 PTAGE: 61 years EKG: SINUS TACHYCARDIA ST DEVIATION AND MODERATE T-WAVE ABNORMALITY, CONSIDER LATERAL ISCHEMIA S T DEVIATION AND MODERATE T-WAVE ABNORMALITY, CONSIDER INFERIOR ISCHEMIA ABNORMAL ECG INTERPRETATION B ASED ON A DEFAULT AGE OF 40 YEARS NO PREVIOUS TRACING DOCTOR: Larry Schwartz Interpretating Date/Time 03/02/2017 08:46:03
[2017-03-02] MEDS: SODIUM CHLORIDE 0.9% FLUSH 10 ML FLUSH IV FLUSH SCH ×2 (08:49→20:14)
--- NOTE | 2017-03-02 10:36 | HHI.PR ---
Subjective Remarks Follow up for fall, alcohol intoxication, KIMO. The patient is sleeping upon my arrival, awakens to vigorous touch. Complains of feeling sore all over but worse at the left posterior rib cage. He is requesting pain medication. He states he "takes no recreational drugs whatsoever." He denies any specific chest pains, palpitations, or shortness of breath. He denies any other medical complaints. Objective Vitals Vital Signs Date Time Temp Pulse Resp B/P Pulse Ox O2 Delivery O2 Flow Rate FiO2 03/02/17 06:08 97.9 74 18 129/69 97 03/02/17 04:09 104 18 143/84 99 Room Air 03/02/17 02:03 80 18 140/70 99 Room Air 03/01/17 20:36 99 Nasal Cannula 03/01/17 20:06 114 03/01/17 20:01 98.6 112 18 138/78 95 Result Diagram: 03/01/17203903/01/172039 Imaging Last Impressions Head CT 03/01/172025 Signed Impressions: Service Date/Time: Thursday, March 02, 2017 00:14 - CONCLUSION: 1. No evidence of acute intracranial pathology. No masses are identified. Aaron Way MD Chest X-Ray 03/01/172025 Signed Impressions: Service Date/Time: February 20:41 - CONCLUSION: No significant change has occurred. Daniel Thorne MD Cervical Spine CT 03/01/172025 Signed Impressions: Service Date/Time: Thursday, March 02, 2017 00:15 - CONCLUSION: 1. Moderate degenerative changes as described above. There is no evidence of acute fracture. Aaron Way MD CT Angiography 03/01/172025 Signed Impressions: Service Date/Time: Thursday, March 02, 2017 00:18 - CONCLUSION: 1. No evidence of pulmonary embolism. 2. Posterior left rib fractures. There is no evidence of pneumothorax. Aaron Way MD Objective Remarks GENERAL: Well-nourished, well-developed middle aged male patient in [facility]. SKIN: Warm and dry. No rash. HEENT: Normocephalic. Atraumatic. Mucous membranes pink and moist. NECK: Supple. Trachea midline. CARDIOVASCULAR: Regular rate and rhythm. S1, S2 noted. No murmur appreciated. RESPIRATORY: No accessory muscle use. Clear to auscultation. Breath sounds equal bilaterally. GASTROINTESTINAL: Abdomen soft, non-tender, nondistended. Normoactive bowel sounds x4. MUSCULOSKELETAL: No obvious deformities. Extremities without clubbing, cyanosis , or edema. Left posterior thorax tender to palpation. NEUROLOGICAL: Awake and alert. No obvious cranial nerve deficits. Motor grossly within normal limits. Normal speech. PSYCHIATRIC: Appropriate mood and affect; insight and judgment normal. Medications and IVs Current Medications Medications (Trade) Dose Ordered Sig/Candy Route Start Time Stop Time Status Last Admin (Aspirin Chew) 162 mg DAILY CHEW 03/02/17 09:00 03/02/17 08:41 (Folate) 1 mg DAILY PO 03/02/17 09:00 03/07/17 08:59 03/02/17 08:46 (Vitamin B1) 100 mg DAILY PO 03/02/17 09:00 03/02/17 08:40 (Theragran M Tab) 1 tab DAILY PO 03/02/17 09:00 03/07/17 08:59 03/02/17 08:40 (Romazicon Inj) 0.2 mg Q1M PRN IV PUSH 03/02/17 02:15 (Ativan) 1 mg Q4H PRN PO 03/02/17 02:15 (Ativan Inj) 1 mg Q4H PRN IV PUSH 03/02/17 02:15 (Ativan) 2 mg Q2H PRN PO 03/02/17 02:15 (Ativan Inj) 2 mg Q2H PRN IV PUSH 03/02/17 02:15 03/02/17 08:48 (Ativan Inj) 2 mg Q1H PRN IV PUSH 03/02/17 02:15 (Ativan Inj) 2 mg Q15M PRN IV PUSH 03/02/17 02:15 Haloperidol Lactate 2 mg 2 mg Q15M PRN IM 03/02/17 02:15 (NS 1000 ml Inj) 1,000 ml @ 100 mls/hr Q10H IV 03/02/17 02:01 03/02/17 02:01 (NS Flush) 2 ml UNSCH PRN IV FLUSH 03/02/17 02:15 (NS Flush) 2 ml BID IV FLUSH 03/02/17 09:00 (Zofran Inj) 4 mg Q6H PRN IVP 03/02/17 02:15 (Tylenol) 650 mg Q6H PRN PO 03/02/17 02:15 (Desi-Colace) 1 tab BID PO 03/02/17 09:00 03/02/17 08:40 (Milk Of Magnesia Liq) 30 ml Q12H PRN PO 03/02/17 02:15 (Senokot) 17.2 mg Q12H PRN PO 03/02/17 02:15 (Dulcolax Supp) 10 mg DAILY PRN RECTAL 03/02/17 02:15 (Lactulose Liq) 30 ml DAILY PRN PO 03/02/17 02:15 (Lidoderm 5% Patch.12 Hr) 1 patch DAILY PRN T-DERMAL 03/02/17 02:30 ([place] 5-325 Mg) 1 tab Q6H PRN PO 03/02/17 10:00 A/P Problem List: (1) Syncope ICD Code: R55 Status: Acute (2) Renal insufficiency ICD Code: N28.9 Status: Acute (3) Left rib fracture ICD Code: S22.32XA Status: Acute (4) Alcohol abuse ICD Code: F10.10 Status: Chronic Assessment and Plan 61-year-old male with a PMH of HTN, COPD, Alcohol Abuse, Anxiety, Depression and LBBB who was brought to the ER by EMS after syncopal episode. Pt was found down in front of [employer]. States he drank 2 shots and felt acute lightheadedness, chest pain and diaphoresis w/ subsequent syncope. No witnessed seizure activity. Syncope: Suspect secondary to alcohol intoxication and dehydration. +head trauma, CT Head/C-Spine w/ no acute findings, images reviewed by me. Trop negative x2, EKG w/ no acute changes from previous. CXR negative, images reviewed by me. Recent admit 02/13-02/14/17 for c/o chest pain, Echo 02/13/17 w/ EF 65-70%, normal systolic function. Prior NST October2016 unremarkable. Give IVF for hydration. Monitor on telemetry. KIMO: Creatinine 1.50, previously 0.68 on 02/15/17, suspect secondary to alcohol abuse. Give IVF for hydration, repeat labs today pending. Left Posterior Rib Fractures: s/p fall w/ c/o left-sided rib pain. CTA Pulm negative for PE, +posterior left rib fractures of 7th, 8th, 9th ribs, no pneumothorax, images reviewed by me. Lidoderm patch prn. [place] prn. Incentive spirometry. Alcohol Abuse with Acute Intoxication upon arrival, now Alcohol Withdrawal: Etoh level 92 upon arrival. Drinks daily, high risk for withdrawal, continue CIWA, Seizure Precautions, MVT/Thiamine/Folate replacement. DVT Prophylaxis: SCD/Teds. Discharge Planning Discharge pending repeat BMP, pain control, and improvement of alcohol withdrawal. Likely discharge later today or tomorrow. Attending Statement The exam, history, and the medical decision-making described in the above note were completed with the assistance of the mid-level provider. I reviewed and agree with the findings presented. I attest that I had a [id number] encounter with the patient on the same day, and personally performed and documented my assessment and findings in the medical record. Patient asking for pain medicine will adjust pain medicines and try to discharge in am tomorrow. Hyun Bhakta PA-C Mar 02, 2017 10:36 Jah Cuellar MD Mar 03, 2017 09:53
[2017-03-02] MEDS: ACETAMINOPHEN/HYDROcodone 325 MG/5 MG TAB PO PRN ×3 (10:54→23:50)
[2017-03-02 10:58] LABS: AUTOMATED NEUTROPHIL # 4.4 TH/MM3 (1.8-7.7); BASOPHIL % 0.6 % (0.0-2.0); EOSINOPHIL # 0.2 TH/MM3 (0-0.4); EOSINOPHIL % 3.3 % (0.0-4.0); HEMO FLAGS DIFF FINAL; LYMPH % 11.8 % (9.0-44.0); LYMPHOCYTE # 0.8 TH/MM3 (1.0-4.8); MEAN CELL VOLUME 102.3 FL (80.0-100.0); MEAN CORPUSCULAR HEMOGLOBIN 34.6 PG (27.0-34.0); MEAN CORPUSCULAR HGB CONC 33.9 % (32.0-36.0); MONO % 20.2 % (0.0-8.0); NEUT % 64.1 % (16.0-70.0); PLATELET COUNT 273 TH/MM3 (150-450); RED BLOOD COUNT 3.52 MIL/MM3 (4.50-5.90); RED CELL DISTRIBUTION WIDTH 15.3 % (11.6-17.2); WHITE BLOOD COUNT 6.9 TH/MM3 (4.0-11.0)
[2017-03-02 11:21] LABS: ALT (GPT) 25 U/L (12-78); ANION GAP 8 MEQ/L (5-15); AST (GOT) 29 U/L (15-37); BLOOD UREA NITROGEN 19 MG/DL (7-18); CHLORIDE 106 MEQ/L (98-107); GLOMERULAR FILTRATION RATE 94 ML/MIN (>89); POTASSIUM 4.1 MEQ/L (3.5-5.1); SODIUM (NA) 139 MEQ/L (136-145)
[2017-03-02 11:24] LABS: ALKALINE PHOSPHATASE 48 U/L (45-117); TOTAL BILIRUBIN ADULT 0.8 MG/DL (0.2-1.0)
[2017-03-02] MEDS ORDERED: LIDO5DIS5 T-DERMAL (11:54)
[2017-03-02] MEDS ORDERED: GNP100TA3 PO (11:54)
[2017-03-02] MEDS: LIDOCAINE HCL 5% PATCH T-DERMAL SCH (12:37)
[2017-03-03 00:04] VITALS: PULSE 89
[2017-03-03 00:05] VITALS: BP 187/86; PULSE 89; RESP 18; TEMP 97.6; O2SAT 98
[2017-03-03 03:31] VITALS: BP 166/97; PULSE 88; RESP 18; TEMP 98.2; O2SAT 99
[2017-03-03 04:08] VITALS: PULSE 88
[2017-03-03] MEDS: LORazepam 2 MG/ML VIAL IV PUSH PRN (04:45)
[2017-03-03] MEDS: ACETAMINOPHEN/HYDROcodone 325 MG/5 MG TAB PO PRN (07:31)
--- NOTE | 2017-03-03 07:52 | HHI.DCPOC ---
Discharge Care Plan Diagnosis: (1) Syncope (2) Dehydration (3) Left rib fracture (4) Alcohol intoxication Goals to Promote Your Health * To prevent worsening of your condition and complications * To maintain your health at the optimal level Directions to Meet Your Goals Take your medications as prescribed Follow your dietary instruction Follow activity as directed Keep your appointments as scheduled Take your immunizations and boosters as scheduled If your symptoms worsen call your PCP, if no PCP go to Urgent Care Center or Emergency Room Smoking is Dangerous to Your Health. Avoid second hand smoke Call the 24-hour hour crisis hotline for domestic abuse at Hyun Bhakta PA-C Mar 03, 2017 07:52
[2017-03-03 07:58] VITALS: BP 178/102; PULSE 88; RESP 20; TEMP 97.5; O2SAT 98
[2017-03-03 08:00] VITALS: O2SAT 98
[2017-03-03] MEDS: SODIUM CHLOR 0.9% 1000 ML INJ 1,000 ML IV SCH (08:01)
[2017-03-03] MEDS ORDERED: cloNIDine HCL 0.1 MG TAB PO PRN ×2 (08:15→11:00)
--- NOTE | 2017-03-03 08:30 | HHI.PR ---
Subjective Remarks Follow up for fall, alcohol intoxication, KIMO, rib fractures. The patient reports continue left posterior thorax pain at the site of the rib fractures. He states he feels short of breath secondary to not being able to take a deep breath because of the pain. RT at bedside to provide incentive spirometer. The patient is requesting stronger pain medication, says the [place] only lasts 10minutes. Otherwise the patient denies any other medical complaints. Objective Vitals Vital Signs Date Time Temp Pulse Resp B/P Pulse Ox O2 Delivery O2 Flow Rate FiO2 03/03/17 08:00 98 03/03/17 07:58 97.5 88 20 178/102 98 03/03/17 04:08 88 03/03/17 03:31 98.2 88 18 166/97 99 03/03/17 00:50 14 03/03/17 00:05 97.6 89 18 187/86 98 03/03/17 00:04 89 03/02/17 21:04 82 03/02/17 15:40 97.9 106 16 137/85 98 03/02/17 12:09 98.6 97 16 153/86 94 03/02/17 08:40 97.6 103 16 130/87 96 I/O 03/02/17 03/02/17 03/02/17 03/03/17 03/03/17 03/03/17 07:00 15:00 23:00 07:00 15:00 23:00 Intake Total 880 ml 1500 ml Balance 880 ml 1500 ml Intake Oral 480 ml 500 ml IV Total 400 ml 1000 ml # Voids 1 2 Result Diagram: 03/02/17 1036 03/02/17 1036 Imaging Last Impressions Head CT 03/01/172025 Signed Impressions: Service Date/Time: Thursday, March 02, 2017 00:14 - CONCLUSION: 1. No evidence of acute intracranial pathology. No masses are identified. Aaron Way MD Chest X-Ray 03/01/172025 Signed Impressions: Service Date/Time: February 20:41 - CONCLUSION: No significant change has occurred. Daniel Thorne MD Cervical Spine CT 03/01/172025 Signed Impressions: Service Date/Time: Thursday, March 02, 2017 00:15 - CONCLUSION: 1. Moderate degenerative changes as described above. There is no evidence of acute fracture. Aaron Way MD CT Angiography 03/01/172025 Signed Impressions: Service Date/Time: Thursday, March 02, 2017 00:18 - CONCLUSION: 1. No evidence of pulmonary embolism. 2. Posterior left rib fractures. There is no evidence of pneumothorax. Aaron Way MD Objective Remarks GENERAL: Well-nourished, well-developed middle aged male patient in [facility]. SKIN: Warm and dry. No rash. HEENT: Normocephalic. Atraumatic. Mucous membranes pink and moist. NECK: Supple. Trachea midline. CARDIOVASCULAR: Regular rate and rhythm. S1, S2 noted. No murmur appreciated. RESPIRATORY: No accessory muscle use. Clear to auscultation. Breath sounds equal bilaterally. GASTROINTESTINAL: Abdomen soft, non-tender, nondistended. Normoactive bowel sounds x4. MUSCULOSKELETAL: No obvious deformities. Extremities without clubbing, cyanosis , or edema. Left posterior thorax tender to palpation. NEUROLOGICAL: Awake and alert. No obvious cranial nerve deficits. Motor grossly within normal limits. Normal speech. PSYCHIATRIC: Appropriate mood and affect; insight and judgment normal. Medications and IVs Current Medications Medications (Trade) Dose Ordered Sig/Candy Route Start Time Stop Time Status Last Admin (Aspirin Chew) 162 mg DAILY CHEW 03/02/17 09:00 03/02/17 08:41 (Folate) 1 mg DAILY PO 03/02/17 09:00 03/07/17 08:59 03/02/17 08:46 (Vitamin B1) 100 mg DAILY PO 03/02/17 09:00 03/02/17 08:40 (Theragran M Tab) 1 tab DAILY PO 03/02/17 09:00 03/07/17 08:59 03/02/17 08:40 (Romazicon Inj) 0.2 mg Q1M PRN IV PUSH 03/02/17 02:15 (Ativan) 1 mg Q4H PRN PO 03/02/17 02:15 (Ativan Inj) 1 mg Q4H PRN IV PUSH 03/02/17 02:15 03/03/17 04:45 (Ativan) 2 mg Q2H PRN PO 03/02/17 02:15 (Ativan Inj) 2 mg Q2H PRN IV PUSH 03/02/17 02:15 03/02/17 08:48 (Ativan Inj) 2 mg Q1H PRN IV PUSH 03/02/17 02:15 (Ativan Inj) 2 mg Q15M PRN IV PUSH 03/02/17 02:15 Haloperidol Lactate 2 mg 2 mg Q15M PRN IM 03/02/17 02:15 (NS 1000 ml Inj) 1,000 ml @ 100 mls/hr Q10H IV 03/02/17 02:01 03/02/17 22:01 (NS Flush) 2 ml UNSCH PRN IV FLUSH 03/02/17 02:15 (NS Flush) 2 ml BID IV FLUSH 03/02/17 09:00 03/02/17 20:14 (Zofran Inj) 4 mg Q6H PRN IVP 03/02/17 02:15 03/03/17 02:43 (Tylenol) 650 mg Q6H PRN PO 03/02/17 02:15 (Desi-Colace) 1 tab BID PO 03/02/17 09:00 03/02/17 08:40 (Milk Of Magnesia Liq) 30 ml Q12H PRN PO 03/02/17 02:15 (Senokot) 17.2 mg Q12H PRN PO 03/02/17 02:15 (Dulcolax Supp) 10 mg DAILY PRN RECTAL 03/02/17 02:15 (Lactulose Liq) 30 ml DAILY PRN PO 03/02/17 02:15 ([place] 5-325 Mg) 1 tab Q6H PRN PO 03/02/17 10:00 03/03/17 07:31 (Lidoderm 5% Patch.12 Hr) 1 patch DAILY T-DERMAL 03/02/17 12:00 03/02/17 12:37 (Catapres) 0.1 mg Q6H PRN PO 03/03/17 08:15 (Prinivil) 20 mg DAILY PO 03/03/17 09:00 A/P Problem List: (1) Syncope ICD Code: R55 Status: Acute (2) Renal insufficiency ICD Code: N28.9 Status: Acute (3) Left rib fracture ICD Code: S22.32XA Status: Acute (4) Alcohol abuse ICD Code: F10.10 Status: Chronic Assessment and Plan 61-year-old male with a PMH of HTN, COPD, Alcohol Abuse, Anxiety, Depression and LBBB who was brought to the ER by EMS after syncopal episode. Pt was found down in front of [employer]. States he drank 2 shots and felt acute lightheadedness, chest pain and diaphoresis w/ subsequent syncope. No witnessed seizure activity. Syncope: Suspect secondary to alcohol intoxication and dehydration. +head trauma, CT Head/C-Spine w/ no acute findings, images reviewed by me. Trop negative x2, EKG w/ no acute changes from previous. CXR negative, images reviewed by me. Recent admit 02/13-02/14/17 for c/o chest pain, Echo 02/13/17 w/ EF 65-70%, normal systolic function. Prior NST October2016 unremarkable. Give IVF for hydration. Monitor on telemetry. No further symptoms throughout admission. KIMO: Creatinine 1.50, previously 0.68 on 02/15/17, suspect secondary to alcohol abuse. Give IVF for hydration, repeat labs show improvement back to baseline Cr 0.83. Resolved. Left Posterior Rib Fractures: s/p fall w/ c/o left-sided rib pain. CTA Pulm negative for PE, +posterior left rib fractures of 7th, 8th, 9th ribs, no pneumothorax, images reviewed by me. Lidoderm patch prn. [place] prn. Incentive spirometry. Alcohol Abuse with Acute Intoxication upon arrival, now Alcohol Withdrawal: Etoh level 92 upon arrival. Drinks daily, high risk for withdrawal, continue CIWA, Seizure Precautions, MVT/Thiamine/Folate replacement. Patient much improved today, no obvious tremor. Hypertension: patient's lisinopril initially held secondary to KIMO, now renal function back to baseline, restart Lisinopril. Clonidine prn. DVT Prophylaxis: SCD/Teds. Discharge Planning 0820hrs: Patient can likely be discharged later today once pain and blood pressure better controlled. Discussed with Dr. Park. 1130hrs: RN reports patient feels much better after receiving [place] 10mg, and he is dressed and ready for discharge. Patient requesting pain medication at discharge. Dr. Park provided [place] 10mg #12tabs. Discharge patient to home Condition on discharge: Improved Heart Healthy Diet as tolerated Ad Lila activity Rx written: [place] 10/325mg po q6h prn pain #12, Lidoderm patch, Thiamine Follow-up with primary care physician within 1 week Attending Statement The exam, history, and the medical decision-making described in the above note were completed with the assistance of the mid-level provider. I reviewed and agree with the findings presented. I attest that I had a [id number] encounter with the patient on the same day, and personally performed and documented my assessment and findings in the medical record. Seen in his bedroom and given pain medication, recommendations about stop drinking alcohol given Hyun Bhakta PA-C Mar 03, 2017 08:30 Jah Cuellar MD Mar 03, 2017 17:53
[2017-03-03] MEDS ORDERED: LISINOPRIL 20 MG TAB PO SCH (09:00)
[2017-03-03] MEDS: DOCUSATE SODIUM 50 MG/SENNA 8.6 MG TAB PO SCH (09:00)
[2017-03-03] MEDS: SODIUM CHLORIDE 0.9% FLUSH 10 ML FLUSH IV FLUSH SCH (09:00)
[2017-03-03] MEDS: FOLIC ACID 1 MG TAB PO SCH (10:00)
[2017-03-03] MEDS ORDERED: ACETAMINOPHEN/HYDROcodone 325 MG/10 MG TAB PO PRN (10:00)
[2017-03-03] MEDS: MULTIVITAMINS/MINERALS THERAPEUTIC TAB PO SCH (10:00)
[2017-03-03] MEDS: THIAMINE HCL 100 MG TAB PO SCH (10:01)
[2017-03-03] MEDS: ASPIRIN 81 MG CHEW TAB CHEW SCH (10:01)
[2017-03-03] MEDS: LIDOCAINE HCL 5% PATCH T-DERMAL SCH (10:02)
[2017-03-03] MEDS ORDERED: ACETAMINOPHEN/HYDROcodone 325 MG/5 MG TAB PO PRN (12:00)
[2017-03-03] MEDS ORDERED: ACETAMINOPHEN 325 MG TAB PO SCH (12:00)
[2017-03-03] MEDS ORDERED: HYDR-3583 PO (12:18)
--- NOTE | 2017-03-05 09:24 | EKG ---
Date Performed: 03/01/2017 Time Performed: 22:42:13 PTAGE: 61 years EKG: Sinus rhythm LEFT VENTRICULAR HYPERTROPHY AND ST-T CHANGE ABNORMAL ECG Consider anterolateral ischemia and inferi or ischemia PREVIOUS TRACING : 03/01/2017 20.11 DOCTOR: Neto Leon Interpretating Date/Time 03/05/2017 09:23:50
== END 2017-03-03 13:11 | disposition home or self-care (01) ==
LOC: NEPC 19:55 → UNDOADMOB 03-02 01:51 → NEDA 03-02 01:51 → NEPFCDU 03-02 05:28 → UNDODISOB 03-03 13:11
PROVIDERS: ADMIT Internal Medicine; ATTEND Internal Medicine
DX: R55 Syncope and collapse (principal); S22.32XA Fracture of one rib, left side, initial encounter for closed fracture; J44.9 Chronic obstructive pulmonary disease, unspecified; I50.9 Heart failure, unspecified; I11.0 Hypertensive heart disease with heart failure; I48.91 Unspecified atrial fibrillation; F10.239 Alcohol dependence with withdrawal, unspecified; R56.9 Unspecified convulsions; I44.7 Left bundle-branch block, unspecified; Z79.01 Long term (current) use of anticoagulants; F41.9 Anxiety disorder, unspecified; F32.9 Major depressive disorder, single episode, unspecified; Y90.4 Blood alcohol level of 80-99 mg/100 ml; R00.0 Tachycardia, unspecified; N17.9 Acute kidney failure, unspecified; E86.0 Dehydration
CPT/HCPCS: 70450; 71010; 71275; 72125; 80053; 80307; 82550; 82552; 82948; 83690; 83735; 83880; 84484; 85025; 85610; 85730; 93005; 96374; 96375; 96376; 99285; G0378; J2060; J2270; J2405; J7030; Q9967

== ENCOUNTER 2017-04-08 08:00 | Inpatient (IN) | payer MEDICAID ==
[~2017-04-08] VITALS: Ht 177.8 cm; Wt 93.5 kg
[2017-04-08] VITALS (18 sets, daily range): BP systolic 116–162; BP diastolic 75–121; PULSE 77–181; RESP 19–22; TEMP 98.1–99.5; O2SAT 97–100
[~2017-04-08 08:00] MED LIST changes: -CARD240C6 PO; -FOLI1TAB6 PO; +HYDR-3583 PO; +LIDO5DIS5 T-DERMAL
[2017-04-08] MEDS ORDERED: AMLO2.5T PO (08:07)
[2017-04-08] MEDS ORDERED: SODIUM CHLOR 0.9% 1000 ML INJ 1,000 ML IV ONE (08:15)
[2017-04-08] MEDS ORDERED: SODIUM CHLORIDE 0.9% FLUSH 5 ML FLUSH IV FLUSH PRN (08:15)
[2017-04-08] MEDS ORDERED: ASPIRIN 81 MG CHEW TAB PO ONE (08:15)
[2017-04-08] MEDS ORDERED: DILTIAZEM HCL 25 MG/5 ML VIAL IV ONE ×2 (08:15→09:00)
[2017-04-08] MEDS ORDERED: MORPHINE SULFATE 4 MG/ML INJ IV PUSH ONE (08:15)
--- NOTE | 2017-04-08 08:17 | PD ---
HPI Chief Complaint: Cardiac Complaint Time Seen by Provider: 08:04 Travel History International Travel<30 days: No Contact w/Intl Traveler<30days: No Traveled to known affect area: No History of Present Illness HPI The patient is a 61-year-old male who presents to the emergency department via EMS for chest pain and elevated heart rate. The patient states he was walking to the gas station this morning, prior to going fishing, when he developed chest pain associated with palpitations. The patient felt a fluttering in his chest, complains of bilateral chest pain which shortness of breath, nausea, and diaphoresis. The patient was noted to be in SVT, probable atrial fibrillation per EMS. The patient received adenosine 6 mg and 12 mg intravenously prior to arrival with no change in his symptoms or heart rate. The patient does state he has a history of atrial fibrillation and alcohol abuse. The patient had stopped drinking for several months, however, started drinking again yesterday with a 12 pack and then several "black Russians ". The patient does not have a prop attendant, is followed by Dr. Flores. The patient states he takes lisinopril and Norvasc for his atrial fibrillation, denies taking any AV jazmin blockers or anticoagulants. PFSH Past Medical History Hx Anticoagulant Therapy: Yes (DVT-ASA) Arthritis: Yes (bursitis tendonitis) Asthma: No Atrial Fibrillation: Yes Autoimmune Disease: No Blood Disorders: No Anxiety: Yes Depression: Yes Heart Rhythm Problems: Yes (LBBB) Cancer: No Cardiac Catheterization: No Cardiovascular Problems: Yes (A FIB RVR, CHF, HTN left bundle branch) High Cholesterol: No Chemotherapy: No Chest Pain: Yes Congestive Heart Failure: Yes COPD: Yes Cerebrovascular Accident: No Diabetes: No Diminished Hearing: No Endocrine: No Gastrointestinal Disorders: No Genitourinary: Yes (not urinating "a lot") Headaches: No Hypertension: Yes Immune Disorder: No Implanted Vascular Access Dvce: No Kidney Stones: Yes Musculoskeletal: Yes (many broken bones in the past) Neurologic: Yes (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) Psychiatric: Yes Reproductive: No Respiratory: Yes (COPD) Immunizations Current: Yes Migraines: No Radiation Therapy: No Seizures: Yes Shingles: Yes Sleep Apnea: No Ulcer: No Tetanus Vaccination: < 5 Years Influenza Vaccination: No Past Surgical History Abdominal Surgery: Yes (HERNIA REPAIR) Cardiac Surgery: No Coronary Artery Bypass Graft: No Ear Surgery: No Endocrine Surgery: No Eye Surgery: No Genitourinary Surgery: No Gynecologic Surgery: No Neurologic Surgery: No Oral Surgery: No Thoracic Surgery: No Tonsillectomy: Yes Other Surgery: Yes Family History Family Myocardial Infarction: Yes Social History Alcohol Use: Yes (1-2 PINTS DAILY VODKA) Tobacco Use: No Substance Use: Yes (painkillers in the past) Allergies-Medications (Allergen,Severity, Reaction): Coded Allergies: Sulfa (Sulfonamide Antibiotics) (Unverified Allergy, Severe, hives, ) cephalexin (Unverified Allergy, Severe, hives, 04/08/17) penicillin G (Unverified Allergy, Severe, hives, 04/08/17) nitroglycerin (Unverified Allergy, Mild, 04/08/17) vomit Reported Meds & Prescriptions Reported Meds & Active Scripts Active Lisinopril 10 Mg Tab 10 Mg PO DAILY Aspirin EC (Aspirin) 81 Mg Tabdr 81 Mg PO DAILY Reported Amlodipine (Amlodipine Besylate) 2.5 Mg Tab 2.5 Mg PO DAILY Review of Systems Except as stated in HPI: all other systems reviewed are Neg HENT: Positive: Lightheadedness Cardiovascular: Positive: Chest Pain or Discomfort, Irregular Rhythm, Tachycardia, Diaphoresis Respiratory: Positive: Shortness of Breath Gastrointestinal: Positive: Nausea, No: Vomiting, Abdominal Pain Musculoskeletal: Positive: Weakness Neurologic: Positive: Dizziness Psychiatric: Positive: Substance Abuse (alcohol abuse) Physical Exam Narrative GENERAL: Awake, alert, pleasant 61-year-old male appears his stated age. SKIN: Focused skin assessment warm/dry. HEAD: Atraumatic. Normocephalic. EYES: Pupils equal and round. No scleral icterus. No injection or drainage. ENT: No nasal bleeding or discharge. Mucous membranes pink and moist. NECK: Trachea midline. No JVD. CARDIOVASCULAR: Irregularly irregular, tachycardic with a heart rate greater than 150. RESPIRATORY: No accessory muscle use. Clear to auscultation. Breath sounds equal bilaterally. GASTROINTESTINAL: Abdomen soft, non-tender, nondistended. No rebound tenderness. MUSCULOSKELETAL: No obvious deformities. No clubbing. No cyanosis. No edema. NEUROLOGICAL: Awake and alert. No obvious cranial nerve deficits. Motor grossly within normal limits. Normal speech. Nonfocal. PSYCHIATRIC: Appropriate mood and affect; insight and judgment normal. Data Data Last Documented VS Vital Signs Date Time Temp Pulse Resp B/P (MAP) Pulse Ox O2 Delivery O2 Flow Rate FiO2 04/08/17 09:05 129 19 162/94 (116) 97 Nasal Cannula 2.00 04/08/17 08:02 99.5 Orders Orders Electrocardiogram (04/08/17 08:07) Ckmb (Isoenzyme) Profile (04/08/17 08:07) Complete Blood Count With Diff (04/08/17 08:07) Comprehensive Metabolic Panel (04/08/17 08:07) Magnesium (Mg) (04/08/17 08:07) Prothrombin Time / Inr (Pt) (04/08/17 08:07) Act Partial Throm Time (Ptt) (04/08/17 08:07) Troponin I (04/08/17 08:07) Chest, Single Ap (04/08/17 08:07) Ecg Monitoring (04/08/17 08:07) Bilateral Bp Monitoring (04/08/17 08:07) Iv Access Insert/Monitor (04/08/17 08:07) Oximetry (04/08/17 08:07) Oxygen Administration (04/08/17 08:07) Aspirin Chew (Aspirin Chew) (04/08/17 08:15) Morphine Inj (Morphine Inj) (04/08/17 08:15) Sodium Chloride 0.9% Flush (Ns Flush) (04/08/17 08:15) Blood Pressure (04/08/17 08:07) Vital Signs (04/08/17 08:07) Diltiazem Inj (Cardizem Inj) (04/08/17 08:15) Sodium Chloride 0.9% Flush (Ns Flush) (04/08/17 08:15) Diltiazem Inj (Cardizem Inj) (04/08/17 08:15) Sodium Chlor 0.9% 1000 Ml Inj (Ns 1000 M (04/08/17 08:15) Diltiazem Inj (Cardizem Inj) (04/08/17 09:00) Lorazepam (Ativan) (04/08/17 09:30) Admit Order (Ed Use Only) (04/08/17 09:48) Labs Laboratory Tests Test 04/08/17 08:25 White Blood Count 9.1 TH/MM3 Red Blood Count 4.37 MIL/MM3 Hemoglobin 14.7 GM/DL Hematocrit 43.7 % Mean Corpuscular Volume 100.0 FL Mean Corpuscular Hemoglobin 33.6 PG Mean Corpuscular Hemoglobin Concent 33.5 % Red Cell Distribution Width 14.7 % Platelet Count 252 TH/MM3 Mean Platelet Volume 7.1 FL Neutrophils (%) (Auto) 64.8 % Lymphocytes (%) (Auto) 17.3 % Monocytes (%) (Auto) 12.4 % Eosinophils (%) (Auto) 4.6 % Basophils (%) (Auto) 0.9 % Neutrophils # (Auto) 5.9 TH/MM3 Lymphocytes # (Auto) 1.6 TH/MM3 Monocytes # (Auto) 1.1 TH/MM3 Eosinophils # (Auto) 0.4 TH/MM3 Basophils # (Auto) 0.1 TH/MM3 CBC Comment DIFF FINAL Differential Comment Prothrombin Time 11.2 SEC Prothromb Time International Ratio 1.0 RATIO Activated Partial Thromboplast Time 24.6 SEC Blood Urea Nitrogen 9 MG/DL Creatinine 0.77 MG/DL Random Glucose 103 MG/DL Total Protein 6.1 GM/DL Albumin 3.0 GM/DL Calcium Level 7.7 MG/DL Magnesium Level 1.8 MG/DL Alkaline Phosphatase 83 U/L Aspartate Amino Transf (AST/SGOT) 18 U/L Alanine Aminotransferase (ALT/SGPT) 20 U/L Total Bilirubin 0.2 MG/DL Sodium Level 141 MEQ/L Potassium Level 3.9 MEQ/L Chloride Level 110 MEQ/L Carbon Dioxide Level 22.4 MEQ/L Anion Gap 9 MEQ/L Estimat Glomerular Filtration Rate 102 ML/MIN Total Creatine Kinase 61 U/L Troponin I 0.02 NG/ML [facility] Medical Decision Making Medical Screen Exam Complete: Yes Emergency Medical Condition: Yes Medical Record Reviewed: Yes Interpretation(s) EKG reveals atrial fibrillation with RVR, rate 169. Left bundle-branch block with QRS of 140 ms. I reviewed the EMR, he does have a history of A. fib but his last several EKGs did not reveal left bundle-branch block, it appears to be new. Last Impressions Chest X-Ray 04/08/17 0807 Signed Impressions: Service Date/Time: Saturday, April 08, 2017 08:21 - CONCLUSION: No acute disease. Anisha Lopez MD Laboratory Tests Test 8/27/17 08:25 White Blood Count 9.1 TH/MM3 Red Blood Count 4.37 MIL/MM3 Hemoglobin 14.7 GM/DL Hematocrit 43.7 % Mean Corpuscular Volume 100.0 FL Mean Corpuscular Hemoglobin 33.6 PG Mean Corpuscular Hemoglobin Concent 33.5 % Red Cell Distribution Width 14.7 % Platelet Count 252 TH/MM3 Mean Platelet Volume 7.1 FL Neutrophils (%) (Auto) 64.8 % Lymphocytes (%) (Auto) 17.3 % Monocytes (%) (Auto) 12.4 % Eosinophils (%) (Auto) 4.6 % Basophils (%) (Auto) 0.9 % Neutrophils # (Auto) 5.9 TH/MM3 Lymphocytes # (Auto) 1.6 TH/MM3 Monocytes # (Auto) 1.1 TH/MM3 Eosinophils # (Auto) 0.4 TH/MM3 Basophils # (Auto) 0.1 TH/MM3 CBC Comment DIFF FINAL Differential Comment Prothrombin Time 11.2 SEC Prothromb Time International Ratio 1.0 RATIO Activated Partial Thromboplast Time 24.6 SEC Blood Urea Nitrogen 9 MG/DL Creatinine 0.77 MG/DL Random Glucose 103 MG/DL Total Protein 6.1 GM/DL Albumin 3.0 GM/DL Calcium Level 7.7 MG/DL Magnesium Level 1.8 MG/DL Alkaline Phosphatase 83 U/L Aspartate Amino Transf (AST/SGOT) 18 U/L Alanine Aminotransferase (ALT/SGPT) 20 U/L Total Bilirubin 0.2 MG/DL Sodium Level 141 MEQ/L Potassium Level 3.9 MEQ/L Chloride Level 110 MEQ/L Carbon Dioxide Level 22.4 MEQ/L Anion Gap 9 MEQ/L Estimat Glomerular Filtration Rate 102 ML/MIN Total Creatine Kinase 61 U/L Troponin I 0.02 NG/ML Differential Diagnosis Differential diagnosis includes arrhythmia, atrial fibrillation with RVR, atrial flutter, ventricular tachycardia, reentry tachycardia, hypokalemia, hypomagnesemia, dehydration, holiday heart, cardiomyopathy. Narrative Course IV was established, labs are drawn and sent, and the patient was placed on cardiac telemetry monitoring and continuous pulse oximetry monitoring. EKG was ordered and interpreted. Chest x-ray was obtained. The patient was administered Cardizem 20 mg intravenously and placed on a Cardizem drip. Patient also received 1 L of IV fluids. The patient's heart rate continued be elevated in the 130s, therefore, was re-bolused with Cardizem. The patient's Cardizem drip was turned up to 10, bringing his heart rate down into the 80s and low 100s. The patient complained of alcohol withdrawal, therefore, was administered Ativan 1 mg orally. The patient appears to have a new left bundle- branch block with A. fib with RVR, will be admitted to the medical service in [facility]. The patient is comfortable with this plan of care and disposition. Critical Care Narrative Aggregate critical care time was 40 minutes. Time to perform other separately billable procedures was not included in the critical care time. My time did not include minutes spent treating any other patients simultaneously or on activities that did not directly contribute to the patient's treatment. The services I provided to this patient were to treat and/or prevent clinically significant deterioration that could result in: Anoxia, hypoxia, arrhythmia, flash pulmonary edema. I provided critical care services requiring my management, as noted below: Chart data review, documentation time, medication orders and management, vital sign assessments/reviewing monitor data, ordering and reviewing lab tests, ordering and interpreting/reviewing x-rays and diagnostic studies, care of the patient and discussion of the patient with the admitting physicians. Physician Communication Physician Communication The on-call medical service was paged for admission. I discussed the patient with Dr. Barone who agrees with admission. Diagnosis Primary Impression: Atrial fibrillation with RVR Additional Impression: Alcohol dependence Qualified Codes: F10.230 - Alcohol dependence with withdrawal, uncomplicated Admitting Information Admitting Physician Requests: Admit Condition: Stable Domo Graves MD Apr 08, 2017 08:17
--- NOTE | 2017-04-08 08:25 | RADRPT ---
EXAM DATE/TIME: 04/08/2017 08:21 [place] COMPARISON: CHEST SINGLE AP, March 01, 2017, 20:41. INDICATIONS : Chest pain MEDICAL HISTORY : Deep venous thrombosis. Chronic obstructive pulmonary disease. Cardiovascular disease. SURGICAL HISTORY : None. ENCOUNTER: Initial ACUITY: 1 day PAIN SCORE: 8/10 LOCATION: chest FINDINGS: A single view of the chest demonstrates the lungs to be symmetrically aerated without evidence of mas s, infiltrate or effusion. There is a radiopaque linear tubing overlying the right mid thorax. This m ay be external to the patient. The cardiomediastinal contours are unremarkable. Osseous structures a re intact. CONCLUSION: No acute disease. Anisha Lopez MD on April 08, 2017 at 8:22 Board Certified Radiologist. This report was verified electronically.
[2017-04-08] MEDS: DILTIAZEM INJ 125 MG in SODIUM CHLORIDE 0.9% INJ 100 ML IV PRN ×2 (08:33→16:13)
[2017-04-08 08:47] LABS: AUTOMATED NEUTROPHIL # 5.9 TH/MM3 (1.8-7.7); BASOPHIL # 0.1 TH/MM3 (0-0.2); BASOPHIL % 0.9 % (0.0-2.0); EOSINOPHIL # 0.4 TH/MM3 (0-0.4); EOSINOPHIL % 4.6 % (0.0-4.0); HEMATOCRIT 43.7 % (39.0-51.0); HEMO FLAGS DIFF FINAL; LYMPH % 17.3 % (9.0-44.0); LYMPHOCYTE # 1.6 TH/MM3 (1.0-4.8); MEAN CORPUSCULAR HEMOGLOBIN 33.6 PG (27.0-34.0); MEAN CORPUSCULAR HGB CONC 33.5 % (32.0-36.0); MONO % 12.4 % (0.0-8.0); NEUT % 64.8 % (16.0-70.0); PLATELET COUNT 252 TH/MM3 (150-450); RED BLOOD COUNT 4.37 MIL/MM3 (4.50-5.90); RED CELL DISTRIBUTION WIDTH 14.7 % (11.6-17.2); WHITE BLOOD COUNT 9.1 TH/MM3 (4.0-11.0)
[2017-04-08 08:56] LABS: APTT (PATIENT) 24.6 SEC (24.3-30.1); PROTHROMBIN TIME - PATIENT 11.2 SEC (9.8-11.6)
[2017-04-08 08:59] LABS: ANION GAP 9 MEQ/L (5-15); AST (GOT) 18 U/L (15-37); BICARBONATE 22.4 MEQ/L (21.0-32.0); BLOOD UREA NITROGEN 9 MG/DL (7-18); CHLORIDE 110 MEQ/L (98-107); GLOMERULAR FILTRATION RATE 102 ML/MIN (>89); MAGNESIUM 1.8 MG/DL (1.5-2.5); POTASSIUM 3.9 MEQ/L (3.5-5.1); SODIUM (NA) 141 MEQ/L (136-145)
[2017-04-08 09:00] LABS: ALT (GPT) 20 U/L (12-78)
[2017-04-08 09:03] LABS: ALKALINE PHOSPHATASE 83 U/L (45-117); TOTAL BILIRUBIN ADULT 0.2 MG/DL (0.2-1.0)
[2017-04-08 09:20] LABS: CREATINE KINASE 61 U/L (39-308)
[2017-04-08] MEDS ORDERED: LORazepam 1 MG TAB PO ONE (09:30)
[2017-04-08] MEDS ORDERED: FLUMAZENIL 0.5 MG/5 ML VIAL IV PUSH PRN (10:15)
[2017-04-08] MEDS ORDERED: ONDANSETRON HCL 4 MG/2 ML VIAL IVP PRN (10:15)
[2017-04-08] MEDS ORDERED: LORazepam 2 MG/ML VIAL IV PUSH PRN ×2 (10:15)
[2017-04-08] MEDS ORDERED: ACETAMINOPHEN 325 MG TAB PO PRN (10:15)
[2017-04-08] MEDS ORDERED: LACTULOSE SYRUP 20 GM/30 ML CUP PO PRN (10:15)
[2017-04-08] MEDS ORDERED: BISACODYL 10 MG SUPP RECTAL PRN (10:15)
[2017-04-08] MEDS ORDERED: SENNOSIDES 8.6 MG TAB PO PRN (10:15)
[2017-04-08] MEDS ORDERED: NALOXONE HCL 0.4 MG/ML AMP IV PRN (10:15)
--- NOTE | 2017-04-08 10:27 | HHI.HP ---
[facility] Jessica Flores MD Admission Diagnosis atrial fibrillation with RVR, new left bundle-branch block, alcohol Diagnoses: (1) Atrial fibrillation with RVR (2) Alcohol dependence (3) HTN (hypertension) (4) Alcohol withdrawal Chief Complaint: Chest pain Travel History International Travel<30 Days: No Contact w/Intl Traveler <30 Da: No Traveled to Known Affected Are: No History of Present Illness The patient is a 61-year-old male who presented to the emergency department for evaluation of chest pain that started suddenly this morning while he was walking. He states that he had walked about a mile this morning, and then developed sharp left-sided chest pain that did not radiate. He described the pain as 9/10. It improved after receiving medications, but is now currently 8/ 10. Reports acute onset of diaphoresis and dyspnea as well. EMS noted that the patient was in SVT and he was given adenosine IV prior to arrival in the ER. This did not change his symptoms and his heart rate remained elevated. He was given IV diltiazem ER and placed on diltiazem drip. The patient is still having chest pain. Review of Systems Constitutional: DENIES: Fever, Chills, Night Sweats Eyes: DENIES: Blurred vision, Vision loss Ears, nose, mouth, throat: DENIES: Hearing loss Respiratory: COMPLAINS OF: Shortness of breath, DENIES: Cough, Wheezing, Sputum production Cardiovascular: COMPLAINS OF: Chest pain, Dyspnea on Exertion, DENIES: Palpitations, Lower Extremity Edema Gastrointestinal: DENIES: Abdominal pain, Constipation, Diarrhea, Nausea, Vomiting Genitourinary: DENIES: Urinary frequency, Urinary incontinence, Urgency, Hematuria, Dysuria, Nocturia Musculoskeletal: DENIES: Joint pain, Muscle aches Integumentary: DENIES: Pruritus, Rash Hematologic/lymphatic: DENIES: Bruising Neurologic: DENIES: Headache Past Family Social History Past Medical History History of DVT Arthritis Atrial fibrillation History of left bundle branch block Anxiety/depression Reported history of CHF Hypertension COPD History of seizure secondary to alcohol withdrawal Alcohol abuse Past Surgical History Hernia repair Tonsillectomy Reported Medications Lisinopril 10 mg daily Aspirin 81 mg daily Amlodipine 2.5 mg daily Allergies: Coded Allergies: Sulfa (Sulfonamide Antibiotics) (Unverified Allergy, Severe, hives, ) cephalexin (Unverified Allergy, Severe, hives, 04/08/17) penicillin G (Unverified Allergy, Severe, hives, 04/08/17) nitroglycerin (Unverified Allergy, Mild, 04/08/17) vomit Family History Mother had heart disease. Father had cancer. Social History Reports history of heavy alcohol abuse, 1-2 pints of vodka daily. Last drink was yesterday evening. States that he had been drinking heavily at a bar yesterday. Denies illicit drug use. Reports that he smokes an occasional cigar. Physical Exam Vital Signs Vital Signs Date Time Temp Pulse Resp B/P (MAP) Pulse Ox O2 Delivery O2 Flow Rate FiO2 04/08/17 09:30 116 113/66 04/08/17 09:15 94 128/71 04/08/17 09:05 129 19 162/94 (116) 97 Nasal Cannula 2.00 04/08/17 09:00 126 162/94 04/08/17 08:45 138 155/78 04/08/17 08:33 147 109/93 04/08/17 08:12 116/75 (89) 162/121 (135) 04/08/17 08:12 Nasal Cannula 2.00 04/08/17 08:12 100 Room Air 04/08/17 08:08 Nasal Cannula 2.00 04/08/17 08:02 99.5 181 21 116/75 (89) 100 Physical Exam GENERAL: Well-nourished, well-developed male in no acute distress. Tremulous. HEENT: Normocephalic, atraumatic. Pupils equal, round and reactive. Extraocular movements intact. No scleral icterus. No injection or drainage. Oropharynx is clear. Mucous membranes are moist. CARDIOVASCULAR: Tachycardic. RESPIRATORY: Clear to auscultation. No wheezes, rales, or rhonchi. Breathing is non-labored. GASTROINTESTINAL: Abdomen soft, non-tender, nondistended. EXTREMITIES: No lower extremity edema. No calf tenderness. PSYCH: Alert and oriented x 3. Laboratory Laboratory Tests Test 8/27/17 08:25 White Blood Count 9.1 Red Blood Count 4.37 Hemoglobin 14.7 Hematocrit 43.7 Mean Corpuscular Volume 100.0 Mean Corpuscular Hemoglobin 33.6 Mean Corpuscular Hemoglobin Concent 33.5 Red Cell Distribution Width 14.7 Platelet Count 252 Mean Platelet Volume 7.1 Neutrophils (%) (Auto) 64.8 Lymphocytes (%) (Auto) 17.3 Monocytes (%) (Auto) 12.4 Eosinophils (%) (Auto) 4.6 Basophils (%) (Auto) 0.9 Neutrophils # (Auto) 5.9 Lymphocytes # (Auto) 1.6 Monocytes # (Auto) 1.1 Eosinophils # (Auto) 0.4 Basophils # (Auto) 0.1 CBC Comment DIFF FINAL Differential Comment Prothrombin Time 11.2 Prothromb Time International Ratio 1.0 Activated Partial Thromboplast Time 24.6 Blood Urea Nitrogen 9 Creatinine 0.77 Random Glucose 103 Total Protein 6.1 Albumin 3.0 Calcium Level 7.7 Magnesium Level 1.8 Alkaline Phosphatase 83 Aspartate Amino Transf (AST/SGOT) 18 Alanine Aminotransferase (ALT/SGPT) 20 Total Bilirubin 0.2 Sodium Level 141 Potassium Level 3.9 Chloride Level 110 Carbon Dioxide Level 22.4 Anion Gap 9 Estimat Glomerular Filtration Rate 102 Total Creatine Kinase 61 Troponin I 0.02 Result Diagram: 04/08/1782404/08/1725 Imaging Last Impressions Chest X-Ray 04/08/17 0807 Signed Impressions: Service Date/Time: Saturday, April 08, 2017 08:21 - CONCLUSION: No acute disease. MD Zuhair Dallasi VTE Risk Assessment Caprini VTE Risk Assessment: Mod/High Risk (score >= 2) Caprini Risk Assessment Model Point Value = 1 Point Value = 2 Point Value = 3 Point Value = 5 Age 41-60 Minor surgery BMI > 25 kg/m2 Swollen legs Varicose veins or History of unexplained or recurrent spontaneous Oral contraceptives or hormone replacement Sepsis (< 1 month) Serious lung disease, including pneumonia (< 1 month) Abnormal pulmonary function Acute myocardial infarction Congestive heart failure (< 1 month) History of inflammatory bowel disease Medical patient at bed rest Age 61-74 Arthroscopic surgery Major open surgery (> 45 min) Laparoscopic surgery (> 45 min) Malignancy Confined to bed (> 72 hours) Immobilizing plaster cast Central venous access Age >= 75 History of VTE Family history of VTE Factor V Leiden Prothrombin 64228L Lupus anticoagulant Anticardiolipin antibodies Elevated serum homocysteine Heparin-induced thrombocytopenia Other congenital or acquired thrombophilia Stroke (< 1 month) Elective arthroplasty Hip, pelvis, or leg fracture Acute spinal cord injury (< 1 month) Prophylaxis Regimen Total Risk Factor Score Risk Level Prophylaxis Regimen 0-1 Low Early ambulation 2 Moderate Order ONE of the following: *Sequential Compression Device (SCD) *Heparin 5000 units SQ BID 3-4 Higher Order ONE of the following medications: *Heparin 5000 units SQ TID *Enoxaparin/Lovenox 40 mg SQ daily (WT < 150 kg, CrCl > 30 mL/min) *Enoxaparin/Lovenox 30 mg SQ daily (WT < 150 kg, CrCl > 10-29 mL/min) *Enoxaparin/Lovenox 30 mg SQ BID (WT < 150 kg, CrCl > 30 mL/min) AND/OR *Sequential Compression Device (SCD) 5 or more Highest Order ONE of the following medications: *Heparin 5000 units SQ TID (Preferred with Epidurals) *Enoxaparin/Lovenox 40 mg SQ daily (WT < 150 kg, CrCl > 30 mL/min) *Enoxaparin/Lovenox 30 mg SQ daily (WT < 150 kg, CrCl > 10-29 mL/min) *Enoxaparin/Lovenox 30 mg SQ BID (WT < 150 kg, CrCl > 30 mL/min) AND *Sequential Compression Device (SCD) Assessment and Plan Assessment and Plan 1. Atrial fibrillation with RVR: Started on Cardizem drip in the ER. Heart rate still somewhat elevated. Cardiology consultation requested. Admit to [facility]. Monitor on telemetry. 2. Alcohol abuse, withdrawal: Alcohol withdrawal precautions. Librium scheduled. CIWA protocol. 3. Hypertension: Continue lisinopril, amlodipine. 4. DVT prophylaxis: Lovenox. Problem Qualifiers (1) Alcohol dependence: Qualified Codes: F10.230 - Alcohol dependence with withdrawal, uncomplicated Darius Barone MD Apr 08, 2017 10:27
[2017-04-08] MEDS: MORPHINE SULFATE 4 MG/ML INJ IV PRN ×5 (10:37→23:21)
[2017-04-08] MEDS: NS + KCL 20 MEQ INJ 1,000 ML IV SCH (11:06)
[2017-04-08] MEDS: ENOXAPARIN SODIUM 40 MG/0.4 ML SYRINGE SQ SCH (11:07)
[2017-04-08] MEDS: chlordiazePOXIDE 25 MG CAP PO SCH ×2 (12:59→17:41)
--- NOTE | 2017-04-08 13:15 | MB ---
cc: DAWOOD DORSEY DATE OF CONSULTATION: 04/08/2017. REASON FOR CONSULTATION: Atrial fibrillation with RVR and chest pain. HISTORY OF PRESENT ILLNESS: 61-year-old male with past medical history significant for atrial fibrillation, not on oral anticoagulation, left bundle branch block, hypertension, alcohol abuse who presented to the emergency department for chest pain that started suddenly this morning while he was fishing. He reports that he was going to fish when all of a sudden he had a sharp left-sided chest pain that did not radiate. He described it as 9/10 associated with palpitations and diaphoresis for which he called EMS. When EMS came to the scene, the patient was noted to have rapid heart rate, adenosine was given in en route. In the emergency department, he was started on a Cardizem drip with some control of his heart rate. The patient has had multiple admissions to the hospital with recent negative cardiac workup. Normal echocardiogram in February of 2017 showing an ejection fraction of 70% and no wall motion abnormalities or valvulopathies. Lexiscan stress test in October of 2016, which was unremarkable for ischemia. He also has a long history of chronic alcohol abuse with multiple admissions for alcohol withdrawal. Of note, he reports having had a lot of alcohol yesterday. REVIEW OF SYSTEMS: The review of systems is negative except for the ones mentioned in the history of present illness. PAST MEDICAL HISTORY: 1. History of DVT. 2. Arthritis. 3. Atrial fibrillation. 4. History of left bundle branch block. 5. Anxiety. 6. Depression. 7. History of hypertension. 8. COPD. 9. Seizure secondary to alcohol withdrawal. 10. Alcohol abuse. PAST SURGICAL HISTORY: 1. Hernia repair. 2. Tonsillectomy. HOME MEDICATIONS: 1. Lisinopril 10 milligrams p.o. daily. 2. Aspirin 81 milligrams p.o. daily. 3. Amlodipine 2.5 milligrams p.o. daily. ALLERGIES: 1. PENICILLIN. 2. SULFA. FAMILY HISTORY: The mother has a history of heard disease. The father had cancer. SOCIAL HISTORY: He is a heavy alcohol drinker. He drinks one or two pints of vodka daily. He denies illicit drug use. He smokes occasionally. PHYSICAL EXAMINATION: VITAL SIGNS: Temperature 99.5, respiratory rate 20, heart rate 116, blood pressure 113/63, 02 saturation 97% on two liters nasal cannula. GENERAL: He is awake, alert and oriented times three. He is a little tremulous and shaky and in no acute distress. NECK: No jugular venous distention. No carotid bruits. HEART: Irregularly irregular without any murmurs, rubs or gallops. LUNGS: Clear to auscultation bilaterally. No wheezes, rhonchi, no rales. ABDOMEN: The abdomen is soft, nontender and nondistended with positive bowel sounds. EXTREMITIES: There is no cyanosis or edema. Pulses throughout. DATA: CBC: Hemoglobin 14, hematocrit of 43, platelet count 252,000. Sodium 141, potassium 3.9, BUN 9, creatinine 0.77. Troponin less than 0.02. EKGS: EKG shows atrial fibrillation with rapid ventricular response, nonspecific S-T changes and a left bundle branch block. ASSESSMENT AND PLAN: 61-year-old male with known history of nonobstructive coronary artery disease, recent workup negative for ischemia, known atrial fibrillation and left bundle branch block who presents with atrial fibrillation with RVR in the setting alcohol intoxication. He remains afebrile and hemodynamically stable on a Cardizem drip at 15. Given the recent ischemic workup, I would not repeat one on this admission. The atrial fibrillation with RVR is likely due to dehydration , alcohol intoxication and noncompliance with medication. The patient has a [id number] score of 2; however, he has refused chronic oral anticoagulation in the past and now. RECOMMENDATIONS: 1. Continue rate control with Cardizem drip. 2. Start Cardizem drip. 3. Cycle cardiac enzymes x3. 4. CIWA protocol per the primary team. Thank you for the opportunity to participate in the care of this patient. Further management to be determined. MD YARA Cornell/JEREMIAH /10:55 AM /12:59 PM LISA
[2017-04-08] MEDS: LORazepam 2 MG TAB PO PRN ×2 (21:05→23:21)
[2017-04-08] MEDS: DOCUSATE SODIUM 50 MG/SENNA 8.6 MG TAB PO SCH (21:05)
[2017-04-09] VITALS (33 sets, daily range): BP systolic 110–173; BP diastolic 59–106; PULSE 64–98; RESP 18–22; TEMP 98.1–99.1; O2SAT 95–100
[2017-04-09] MEDS ORDERED: AMIODARONE 150 MG/D5W 97 ML BOLUS 10 MINUTES IV ONE ×2 (01:45)
[2017-04-09] MEDS: AMIODARONE INJ 450 MG in D5W (EXCEL BAG) INJ 241 ML IV SCH ×3 (02:21→15:00)
[2017-04-09] MEDS: LORazepam 2 MG TAB PO PRN (04:17)
[2017-04-09] MEDS: MORPHINE SULFATE 4 MG/ML INJ IV PRN ×5 (04:17→22:29)
[2017-04-09 06:59] LABS: AUTOMATED NEUTROPHIL # 5.1 TH/MM3 (1.8-7.7); BASOPHIL % 0.4 % (0.0-2.0); EOSINOPHIL # 0.4 TH/MM3 (0-0.4); EOSINOPHIL % 5.1 % (0.0-4.0); HEMATOCRIT 42.6 % (39.0-51.0); HEMO FLAGS DIFF FINAL; LYMPH % 17.3 % (9.0-44.0); LYMPHOCYTE # 1.4 TH/MM3 (1.0-4.8); MEAN CELL VOLUME 100.8 FL (80.0-100.0); MEAN CORPUSCULAR HEMOGLOBIN 33.5 PG (27.0-34.0); MEAN CORPUSCULAR HGB CONC 33.2 % (32.0-36.0); MONO % 14.4 % (0.0-8.0); NEUT % 62.8 % (16.0-70.0); PLATELET COUNT 188 TH/MM3 (150-450); RED BLOOD COUNT 4.22 MIL/MM3 (4.50-5.90); RED CELL DISTRIBUTION WIDTH 14.3 % (11.6-17.2); WHITE BLOOD COUNT 8.1 TH/MM3 (4.0-11.0)
[2017-04-09 07:15] LABS: POTASSIUM 3.6 MEQ/L (3.5-5.1)
--- NOTE | 2017-04-09 09:15 | HHI.PR ---
Subjective Remarks Follow up a-fib with RVR, alcohol withdrawal. Patient still having chest pain. Still tremulous. No nausea/vomiting. Objective Vitals Vital Signs Date Time Temp Pulse Resp B/P (MAP) Pulse Ox O2 Delivery O2 Flow Rate FiO2 04/09/17 07:52 85 04/09/17 06:00 85 04/09/17 05:00 85 04/09/17 04:00 85 04/09/17 03:44 98.1 70 18 120/88 (99) 97 04/09/17 03:00 85 04/09/17 02:21 74 129/74 04/09/17 02:07 99 127/91 04/09/17 02:00 78 04/09/17 01:00 85 04/09/17 00:00 98.6 98 20 150/106 (121) 98 04/09/17 00:00 98 04/08/17 23:00 85 04/08/17 22:00 78 04/08/17 21:00 78 04/08/17 20:00 82 04/08/17 20:00 98.4 77 20 158/76 (103) 98 04/08/17 18:00 77 04/08/17 18:00 84 146/87 04/08/17 17:28 97 04/08/17 17:00 78 04/08/17 16:13 98 151/96 04/08/17 16:00 98 04/08/17 15:00 98.1 78 22 135/85 (102) 100 04/08/17 15:00 82 04/08/17 14:00 91 04/08/17 13:00 93 04/08/17 13:00 89 04/08/17 12:26 99.1 91 20 154/88 (110) 98 04/08/17 12:26 103 04/08/17 11:53 91 154/83 04/08/17 11:29 04/08/17 11:00 112 19 122/84 (97) 99 Nasal Cannula 2.00 04/08/17 10:24 100 Nasal Cannula 2.00 04/08/17 10:00 105 20 157/79 (105) 98 Nasal Cannula 2.00 04/08/17 09:30 116 113/66 04/08/17 09:15 94 128/71 I/O 8/2704/08/17 04/08/17 04/09/17 04/09/17 04/09/17 06:59 14:59 22:59 06:59 14:59 22:59 Intake Total 1000 ml 1475 ml 1400 ml Output Total 1200 ml Balance 1000 ml 1475 ml 200 ml Intake Oral 1060 ml 800 ml IV Total 1000 ml 415 ml 600 ml Output Urine Total 1200 ml # Voids 3 # Bowel Movements 0 Result Diagram: 04/09/17 0545 04/09/17 0545 Imaging Last Impressions Chest X-Ray 04/08/17 0807 Signed Impressions: Service Date/Time: Saturday, April 08, 2017 08:21 - CONCLUSION: No acute disease. Anisha Lopez MD Objective Remarks General: No acute distress. Tremulous. Heart: Tachycardic. Lungs: Clear to auscultation bilaterally. No wheezes, rales, or rhonchi. Breathing is nonlabored. Abdomen: Soft, nontender, nondistended. Extremities: No lower extremity edema. Psych: Alert and oriented. Procedures None Urinary Catheter: No Vascular Central Line Catheter: No A/P Problem List: (1) Atrial fibrillation with RVR ICD Code: I48.91 - Unspecified atrial fibrillation Status: Resolved (2) Alcohol dependence ICD Code: F10.20 - Alcohol dependence, uncomplicated Status: Chronic (3) HTN (hypertension) ICD Code: I10 - Essential (primary) hypertension Status: Chronic (4) Alcohol withdrawal ICD Code: F10.239 - Alcohol dependence with withdrawal, unspecified Status: Acute Assessment and Plan 1. Atrial fibrillation with RVR: Started on Cardizem drip in the ER. Appreciate Cardiology recommendations. Changed from Cardizem drip to Amiodarone drip. 2. Alcohol abuse, withdrawal: Alcohol withdrawal precautions. Librium scheduled. CIWA protocol. 3. Hypertension: Continue lisinopril, amlodipine. 4. DVT prophylaxis: Lovenox. Problem Qualifiers (1) Alcohol dependence: Qualified Codes: F10.230 - Alcohol dependence with withdrawal, uncomplicated Darius Barone MD Apr 09, 2017 09:14
[2017-04-09] MEDS: ASPIRIN EC 325 MG TABEC PO SCH (09:37)
[2017-04-09] MEDS: chlordiazePOXIDE 25 MG CAP PO SCH ×3 (09:37→17:18)
[2017-04-09] MEDS: DOCUSATE SODIUM 50 MG/SENNA 8.6 MG TAB PO SCH ×2 (09:37→20:20)
[2017-04-09] MEDS: NS + KCL 20 MEQ INJ 1,000 ML IV SCH (09:38)
[2017-04-09] MEDS ORDERED: amLODIPine BESYLATE 5 MG TAB PO SCH (10:00)
[2017-04-09] MEDS ORDERED: PILL SPLITTER OTHER PRN (10:00)
[2017-04-09] MEDS: ENOXAPARIN SODIUM 40 MG/0.4 ML SYRINGE SQ SCH (11:00)
[2017-04-09] MEDS: LISINOPRIL 10 MG TAB PO SCH (11:25)
[2017-04-09] MEDS: LORazepam 2 MG/ML VIAL IV PUSH PRN ×2 (12:19→20:20)
--- NOTE | 2017-04-09 15:25 | PD.CARD.PN ---
Subjective Subjective Remarks No CV complaints Back in SR on Telemetry Objective Medications Current Medications Medications (Trade) Dose Ordered Sig/Candy Route Start Time Stop Time Status Last Admin (NS Flush) 2 ml UNSCH PRN IVF 04/08/17 08:15 Diltiazem HCl 125 mg/Sodium Chloride 125 ml @ 5 mls/hr TITRATE PRN IV 04/08/17 08:15 04/08/17 16:13 (NS Flush) 2 ml UNSCH PRN IV FLUSH 04/08/17 08:15 (Zofran Inj) 4 mg Q6H PRN IVP 04/08/17 10:15 (Lovenox Inj) 40 mg Q24H SQ 04/08/17 11:00 04/08/17 11:07 (Tylenol) 650 mg Q6H PRN PO 04/08/17 10:15 (Morphine Inj) 2 mg Q3H PRN IV 04/08/17 10:15 04/09/17 13:35 (Narcan Inj) 0.4 mg UNSCH PRN IV 04/08/17 10:15 (Desi-Colace) 1 tab BID PO 04/08/17 21:00 04/09/17 09:37 (Milk Of Magnesia Liq) 30 ml Q12H PRN PO 04/08/17 10:15 (Senokot) 17.2 mg Q12H PRN PO 04/08/17 10:15 (Dulcolax Supp) 10 mg DAILY PRN RECTAL 04/08/17 10:15 (Lactulose Liq) 30 ml DAILY PRN PO 04/08/17 10:15 (Romazicon Inj) 0.2 mg Q1M PRN IV PUSH 04/08/17 10:15 (Ativan) 1 mg Q4H PRN PO 04/08/17 10:15 (Ativan Inj) 1 mg Q4H PRN IV PUSH 04/08/17 10:15 04/09/17 12:19 (Ativan) 2 mg Q2H PRN PO 04/08/17 10:15 04/09/17 04:17 (Ativan Inj) 2 mg Q2H PRN IV PUSH 04/08/17 10:15 (Ativan Inj) 2 mg Q1H PRN IV PUSH 04/08/17 10:15 (Ativan Inj) 2 mg Q15M PRN IV PUSH 04/08/17 10:15 Potassium Chloride/Sodium Chloride 1,000 ml @ 50 mls/hr Q20H IV 04/08/17 11:00 04/09/17 09:38 (Ecotrin Ec) 325 mg DAILY PO 04/09/17 09:00 04/09/17 09:37 (Librium) 25 mg TID PO 04/08/17 13:00 04/09/17 13:02 Amiodarone HCl 450 mg/Dextrose 250 ml @ 33.33 mls/ hr Q7H31M IV 04/09/17 01:45 04/09/17 13:11 (Norvasc) 2.5 mg DAILY PO 04/09/17 10:00 04/09/17 11:24 (Prinivil) 10 mg DAILY PO 04/09/17 10:00 04/09/17 11:25 (Pill Splitter) 1 ea UNSCH PRN OTHER 04/09/17 10:00 Vital Signs / I&O Vital Signs Date Time Temp Pulse Resp B/P (MAP) Pulse Ox O2 Delivery O2 Flow Rate FiO2 04/09/17 13:11 79 147/103 04/09/17 12:00 65 04/09/17 11:21 98.6 75 21 158/100 (119) 96 04/09/17 11:00 73 04/09/17 10:15 97 04/09/17 10:00 68 04/09/17 09:30 98.2 73 20 138/94 (109) 100 04/09/17 09:30 73 138/94 04/09/17 09:00 76 04/09/17 08:00 64 04/09/17 07:52 85 04/09/17 06:00 85 04/09/17 05:00 85 04/09/17 04:00 85 04/09/17 03:44 98.1 70 18 120/88 (99) 97 04/09/17 03:00 85 04/09/17 02:21 74 129/74 04/09/17 02:07 99 127/91 04/09/17 02:00 78 04/09/17 01:00 85 04/09/17 00:00 98.6 98 20 150/106 (121) 98 04/09/17 00:00 98 04/08/17 23:00 85 04/08/17 22:00 78 04/08/17 21:00 78 04/08/17 20:00 82 04/08/17 20:00 98.4 77 20 158/76 (103) 98 04/08/17 18:00 77 04/08/17 18:00 84 146/87 04/08/17 17:28 97 04/08/17 17:00 78 04/08/17 16:13 98 151/96 04/08/17 16:00 98 I/O 04/08/17 04/08/17 04/08/17 04/09/17 04/09/17 04/09/17 07:00 15:00 23:00 07:00 15:00 23:00 Intake Total 1000 ml 1475 ml 1400 ml 249 ml Output Total 1200 ml Balance 1000 ml 1475 ml 200 ml 249 ml Intake Oral 1060 ml 800 ml IV Total 1000 ml 415 ml 600 ml 249 ml Output Urine Total 1200 ml # Voids 3 # Bowel Movements 0 Physical Exam GENERAL: Well-nourished, well-developed patient. SKIN: Warm and dry. HEAD: Normocephalic. EYES: No scleral icterus. No injection or drainage. NECK: Supple, trachea midline. No JVD or lymphadenopathy. CARDIOVASCULAR: Regular rate and rhythm without murmurs, gallops, or rubs. RESPIRATORY: Breath sounds equal bilaterally. No accessory muscle use. GASTROINTESTINAL: Abdomen soft, non-tender, nondistended. EXTREMITIES: No cyanosis, or edema. NEUROLOGICAL: Awake, alert, and oriented x 3. Non-focal. Laboratory Laboratory Tests Test 04/08/17 20:04 04/09/17 05:45 Total Creatine Kinase 44 U/L Troponin I 0.03 NG/ML White Blood Count 8.1 TH/MM3 Red Blood Count 4.22 MIL/MM3 Hemoglobin 14.1 GM/DL Hematocrit 42.6 % Mean Corpuscular Volume 100.8 FL Mean Corpuscular Hemoglobin 33.5 PG Mean Corpuscular Hemoglobin Concent 33.2 % Red Cell Distribution Width 14.3 % Platelet Count 188 TH/MM3 Mean Platelet Volume 7.3 FL Neutrophils (%) (Auto) 62.8 % Lymphocytes (%) (Auto) 17.3 % Monocytes (%) (Auto) 14.4 % Eosinophils (%) (Auto) 5.1 % Basophils (%) (Auto) 0.4 % Neutrophils # (Auto) 5.1 TH/MM3 Lymphocytes # (Auto) 1.4 TH/MM3 Monocytes # (Auto) 1.2 TH/MM3 Eosinophils # (Auto) 0.4 TH/MM3 Basophils # (Auto) 0.0 TH/MM3 CBC Comment DIFF FINAL Differential Comment Blood Urea Nitrogen 5 MG/DL Creatinine 0.67 MG/DL Random Glucose 108 MG/DL Calcium Level 8.3 MG/DL Sodium Level 140 MEQ/L Potassium Level 3.6 MEQ/L Chloride Level 107 MEQ/L Carbon Dioxide Level 25.0 MEQ/L Anion Gap 8 MEQ/L Estimat Glomerular Filtration Rate 120 ML/MIN Imaging Last Impressions Chest X-Ray 04/08/17 0807 Signed Impressions: Service Date/Time: Saturday, April 08, 2017 08:21 - CONCLUSION: No acute disease. Anisha Lopez MD Assessment and Plan Problem List: (1) A-fib ICD Codes: I48.91 - Unspecified atrial fibrillation Status: Chronic Plan: Afib resolved, back in SR. Patient refuse OAC. Recommendations: - Discontinue Amio drip - Start Cardizem 30mg PO QID - Aggressive medical management for primary prevention of CAD Sign off (2) HTN (hypertension) ICD Codes: I10 - Essential (primary) hypertension Status: Chronic (3) Alcohol withdrawal ICD Codes: F10.239 - Alcohol dependence with withdrawal, unspecified Status: Acute (4) Dehydration ICD Codes: E86.0 - Dehydration Status: Acute (5) Atypical chest pain ICD Codes: R07.89 - Other chest pain Status: Acute Phil Barros MD Apr 09, 2017 15:25
--- NOTE | 2017-04-09 15:42 | EKG ---
Date Performed: 04/08/2017 Time Performed: 08:04:23 PTAGE: 61 years EKG: Wide complex tacycardia, rhythm is irregular and most likely Represents atrial fibrillation with rapid ventricular response with Abberrant conduction/left bundle branch block, however both Atr ial fibrillation and wide QRS complex are new when compared to Previous tracing. Clincal cooralation is suggested, to exclude ventricular Tachycardia. ABNORMAL ECG PREVIOUS TRACING : 03/01/2017 22.42 DOCTOR: James Odonnell Interpretating Date/Time 04/09/2017 15:40:41
[2017-04-09] MEDS: DILTIAZEM HCL 30 MG TAB PO SCH ×2 (17:18→20:20)
[2017-04-10] VITALS (29 sets, daily range): BP systolic 126–184; BP diastolic 91–122; PULSE 69–106; RESP 18–22; TEMP 97.7–98.7; O2SAT 93–99
[2017-04-10] MEDS ORDERED: DILTIAZEM HCL 30 MG TAB PO ONE (00:45)
[2017-04-10] MEDS: MORPHINE SULFATE 4 MG/ML INJ IV PRN ×5 (01:30→22:07)
[2017-04-10] MEDS: LORazepam 2 MG/ML VIAL IV PUSH PRN ×3 (02:54→21:00)
[2017-04-10] MEDS: NS + KCL 20 MEQ INJ 1,000 ML IV SCH (03:00)
[2017-04-10] MEDS: DILTIAZEM HCL 30 MG TAB PO SCH ×4 (09:00→20:58)
[2017-04-10] MEDS: DOCUSATE SODIUM 50 MG/SENNA 8.6 MG TAB PO SCH ×2 (09:00→20:59)
[2017-04-10] MEDS: chlordiazePOXIDE 25 MG CAP PO SCH ×3 (09:00→17:39)
[2017-04-10] MEDS: LISINOPRIL 10 MG TAB PO SCH (09:00)
[2017-04-10] MEDS: ASPIRIN EC 325 MG TABEC PO SCH (09:01)
--- NOTE | 2017-04-10 10:08 | HHI.PR ---
Subjective Remarks Follow up chest pain, alcohol withdrawal. Patient continues to report left- sided chest pain. This is worse with coughing. He is still shaky and is reporting ongoing withdrawal symptoms. Objective Vitals Vital Signs Date Time Temp Pulse Resp B/P (MAP) Pulse Ox O2 Delivery O2 Flow Rate FiO2 04/10/17 06:33 69 04/10/17 05:03 81 04/10/17 04:30 74 04/10/17 04:04 137/91 (106) 04/10/17 03:40 76 04/10/17 03:24 98.7 78 160/102 (121) 97 04/10/17 02:00 80 04/10/17 01:00 82 04/10/17 00:00 84 04/09/17 23:09 173/105 (127) 04/09/17 23:00 81 04/09/17 22:34 99.1 85 172/102 (125) 97 04/09/17 22:00 82 04/09/17 21:00 80 04/09/17 20:00 82 04/09/17 19:36 99.0 89 110/59 (76) 98 04/09/17 19:01 97 04/09/17 19:00 79 04/09/17 18:28 72 04/09/17 17:00 76 04/09/17 16:04 68 04/09/17 15:45 98.4 76 22 138/98 (111) 97 04/09/17 15:00 75 04/09/17 14:00 74 04/09/17 13:11 79 147/103 04/09/17 13:00 84 04/09/17 12:00 65 04/09/17 11:21 98.6 75 21 158/100 (119) 96 04/09/17 11:00 73 04/09/17 10:15 97 I/O 04/09/17 04/09/17 04/09/17 04/10/17 04/10/17 04/10/17 07:00 15:00 23:00 07:00 15:00 23:00 Intake Total 1400 ml 249 ml 1090.2 ml 740 ml Output Total 1200 ml 1125 ml 1650 ml Balance 200 ml 249 ml -34.8 ml -910 ml Intake Oral 800 ml 1020 ml 240 ml IV Total 600 ml 249 ml 70.2 ml 500 ml Output Urine Total 1200 ml 1125 ml 1650 ml # Bowel Movements 0 Result Diagram: 04/09/17 0545 04/09/17 0545 Imaging Last Impressions Chest X-Ray 04/08/17 0807 Signed Impressions: Service Date/Time: Saturday, April 08, 2017 08:21 - CONCLUSION: No acute disease. Anisha Lopez MD Objective Remarks General: No acute distress. Tremulous. Heart: Tachycardic. Lungs: Clear to auscultation bilaterally. No wheezes, rales, or rhonchi. Breathing is nonlabored. Abdomen: Soft, nontender, nondistended. Extremities: No lower extremity edema. Psych: Alert and oriented. Procedures None Urinary Catheter: No Vascular Central Line Catheter: No A/P Problem List: (1) Atrial fibrillation with RVR ICD Code: I48.91 - Unspecified atrial fibrillation Status: Resolved (2) Alcohol dependence ICD Code: F10.20 - Alcohol dependence, uncomplicated Status: Chronic (3) HTN (hypertension) ICD Code: I10 - Essential (primary) hypertension Status: Chronic (4) Alcohol withdrawal ICD Code: F10.239 - Alcohol dependence with withdrawal, unspecified Status: Acute Assessment and Plan 1. Atrial fibrillation with RVR: Appreciate cardiology recommendations. Now off IV Cardizem and IV amiodarone. Continue oral Cardizem. Patient refusing oral anticoagulation. 2. Alcohol abuse, withdrawal: Alcohol withdrawal precautions. Librium scheduled. [place] protocol. 3. Hypertension: Continue lisinopril, amlodipine. Clonidine as needed. BP likely elevated secondary to alcohol withdrawal. 4. Chest pain: Likely secondary to a-fib. Appreciate cardiology recommendations. Serial cardiac enzymes are negative. 5. DVT prophylaxis: Lovenox. Problem Qualifiers (1) Alcohol dependence: Qualified Codes: F10.230 - Alcohol dependence with withdrawal, uncomplicated Darius Barone MD Apr 10, 2017 10:08
[2017-04-10] MEDS: cloNIDine HCL 0.1 MG TAB PO PRN ×2 (10:10→23:46)
[2017-04-10] MEDS: ENOXAPARIN SODIUM 40 MG/0.4 ML SYRINGE SQ SCH (12:45)
[2017-04-11] VITALS (26 sets, daily range): BP systolic 149–170; BP diastolic 92–108; PULSE 60–103; RESP 17–20; TEMP 97.6–98.5; O2SAT 95–99
[2017-04-11] MEDS: MORPHINE SULFATE 4 MG/ML INJ IV PRN ×6 (01:24→23:46)
[2017-04-11] MEDS: cloNIDine HCL 0.1 MG TAB PO PRN ×2 (07:15→20:17)
[2017-04-11] MEDS: ASPIRIN EC 325 MG TABEC PO SCH (09:28)
[2017-04-11] MEDS: DOCUSATE SODIUM 50 MG/SENNA 8.6 MG TAB PO SCH ×2 (09:28→20:08)
[2017-04-11] MEDS: chlordiazePOXIDE 25 MG CAP PO SCH ×3 (09:28→17:01)
[2017-04-11] MEDS: DILTIAZEM HCL 30 MG TAB PO SCH ×4 (09:28→20:08)
[2017-04-11] MEDS: LISINOPRIL 20 MG TAB PO SCH (09:28)
[2017-04-11] MEDS: LORazepam 1 MG TAB PO PRN ×4 (09:28→23:44)
--- NOTE | 2017-04-11 10:35 | HHI.PR ---
Subjective Remarks Follow up hypertension, EtOH withdrawal. Patient still having chest pain, now intermittent. It lasts for 10-15 minutes and is worse with coughing. Denies dyspnea. Objective Vitals Vital Signs Date Time Temp Pulse Resp B/P (MAP) Pulse Ox O2 Delivery O2 Flow Rate FiO2 04/11/17 10:00 72 04/11/17 09:29 20 04/11/17 09:00 68 04/11/17 08:00 68 04/11/17 07:30 97.8 75 20 149/108 (122) 99 04/11/17 07:00 69 04/11/17 06:00 60 04/11/17 05:00 70 04/11/17 04:30 97.6 103 20 162/107 (125) 97 04/11/17 04:00 66 04/11/17 03:00 76 04/11/17 02:00 62 04/11/17 01:00 72 04/11/17 00:00 97.6 82 20 168/92 (117) 95 04/10/17 23:00 80 04/10/17 22:00 80 04/10/17 21:00 80 04/10/17 20:00 97.7 76 20 169/93 (118) 98 04/10/17 20:00 86 04/10/17 19:00 84 04/10/17 18:24 86 04/10/17 17:00 72 04/10/17 16:00 74 04/10/17 15:31 98.5 79 18 126/92 (103) 04/10/17 15:00 79 04/10/17 14:00 94 04/10/17 13:00 94 04/10/17 12:18 93 21 04/10/17 12:00 84 04/10/17 11:23 98.2 88 22 140/102 (115) 99 04/10/17 11:00 88 I/O 04/10/17 04/10/17 04/10/17 04/11/17 04/11/17 04/11/17 07:00 15:00 23:00 07:00 15:00 23:00 Intake Total 740 ml 990 ml 920 ml 800 ml Output Total 1650 ml 800 ml Balance -910 ml 990 ml 920 ml 0 ml Intake Oral 240 ml 920 ml 800 ml IV Total 500 ml 990 ml Output Urine Total 1650 ml 800 ml # Voids 5 5 Result Diagram: 04/09/17 0545 04/09/17 0545 Imaging Last Impressions Chest X-Ray 04/08/17 0807 Signed Impressions: Service Date/Time: Saturday, April 08, 2017 08:21 - CONCLUSION: No acute disease. Anisha Lopez MD Objective Remarks General: No acute distress. Mildly tremulous Heart: Regular rate and rhythm. Lungs: Clear to auscultation bilaterally. No wheezes, rales, or rhonchi. Breathing is nonlabored. Abdomen: Soft, nontender, nondistended. Extremities: No lower extremity edema. Psych: Alert and oriented. Procedures None Urinary Catheter: No Vascular Central Line Catheter: No A/P Problem List: (1) Atrial fibrillation with RVR ICD Code: I48.91 - Unspecified atrial fibrillation Status: Resolved (2) Alcohol dependence ICD Code: F10.20 - Alcohol dependence, uncomplicated Status: Chronic (3) HTN (hypertension) ICD Code: I10 - Essential (primary) hypertension Status: Chronic (4) Alcohol withdrawal ICD Code: F10.239 - Alcohol dependence with withdrawal, unspecified Status: Acute Assessment and Plan 1. Atrial fibrillation with RVR: Appreciate cardiology recommendations. Now off IV Cardizem and IV amiodarone. Continue oral Cardizem. Patient refusing oral anticoagulation. 2. Alcohol abuse, withdrawal: Alcohol withdrawal precautions. Taper Librium. CIWA protocol. 3. Hypertension: Continue Cardizem. Increase lisinopril. Clonidine as needed. 4. Chest pain: Likely secondary to a-fib. Appreciate cardiology recommendations. Serial cardiac enzymes are negative. 5. DVT prophylaxis: Lovenox. Problem Qualifiers (1) Alcohol dependence: Qualified Codes: F10.230 - Alcohol dependence with withdrawal, uncomplicated Darius Barone MD Apr 11, 2017 10:35
[2017-04-11] MEDS: ENOXAPARIN SODIUM 40 MG/0.4 ML SYRINGE SQ SCH (10:52)
[2017-04-11] MEDS: MAGNESIUM HYDROXIDE SUSP 30 ML CUP PO PRN (17:14)
[2017-04-12] VITALS (24 sets, daily range): BP systolic 127–178; BP diastolic 74–113; PULSE 52–79; RESP 16–19; TEMP 97.7–98.7; O2SAT 96–99
[2017-04-12] MEDS: LORazepam 1 MG TAB PO PRN ×5 (03:46→19:35)
[2017-04-12] MEDS: MORPHINE SULFATE 4 MG/ML INJ IV PRN ×7 (03:46→23:05)
[2017-04-12] MEDS: DILTIAZEM HCL 30 MG TAB PO SCH ×4 (09:12→22:06)
[2017-04-12] MEDS: chlordiazePOXIDE 25 MG CAP PO SCH ×2 (09:13→22:07)
[2017-04-12] MEDS: LISINOPRIL 20 MG TAB PO SCH (09:13)
[2017-04-12] MEDS: hydrALAZINE HCL 25 MG TAB PO SCH ×2 (09:13→22:07)
[2017-04-12] MEDS: ASPIRIN EC 325 MG TABEC PO SCH (09:13)
[2017-04-12] MEDS: DOCUSATE SODIUM 50 MG/SENNA 8.6 MG TAB PO SCH ×2 (09:13→22:07)
--- NOTE | 2017-04-12 09:47 | HHI.PR ---
Subjective Remarks Follow-up hypertension, alcohol withdrawal, chest pain. The patient states that the chest pain is starting to "recede". Still having occasional shortness of breath. Still tremulous. Objective Vitals Vital Signs Date Time Temp Pulse Resp B/P (MAP) Pulse Ox O2 Delivery O2 Flow Rate FiO2 04/12/17 07:00 97.7 66 18 143/112 (122) 97 04/12/17 07:00 53 04/12/17 06:01 61 04/12/17 05:01 64 04/12/17 04:01 61 04/12/17 03:01 61 04/12/17 03:01 98.0 61 18 158/93 (114) 98 04/12/17 02:08 56 04/12/17 01:01 62 04/12/17 00:01 70 04/11/17 23:01 98.4 65 18 153/96 (115) 96 04/11/17 23:01 65 04/11/17 22:01 68 04/11/17 21:29 18 04/11/17 21:01 87 04/11/17 20:01 70 04/11/17 19:01 98.0 73 18 170/104 (126) 98 04/11/17 19:01 69 04/11/17 18:00 65 04/11/17 17:00 62 04/11/17 16:00 69 04/11/17 15:00 71 20 161/93 (115) 97 04/11/17 15:00 65 04/11/17 14:00 70 04/11/17 13:00 66 04/11/17 12:17 69 04/11/17 11:00 74 04/11/17 11:00 98.5 81 17 157/92 (113) 96 04/11/17 10:00 72 I/O 04/11/17 04/11/17 04/11/17 04/12/17 04/12/17 04/12/17 06:59 14:59 22:59 06:59 14:59 22:59 Intake Total 800 ml 720 ml 960 ml Output Total 800 ml 970 ml 1140 ml Balance 0 ml -250 ml -180 ml Intake Oral 800 ml 720 ml 960 ml Output Urine Total 800 ml 970 ml 1140 ml # Voids 5 # Bowel Movements 0 Result Diagram: 04/09/17 0545 04/09/17 0545 Imaging Last Impressions Chest X-Ray 04/08/17 0807 Signed Impressions: Service Date/Time: Saturday, April 08, 2017 08:21 - CONCLUSION: No acute disease. Anisha Lopez MD Objective Remarks General: No acute distress. Tremulous Heart: Regular rate and rhythm. Lungs: Clear to auscultation bilaterally. No wheezes, rales, or rhonchi. Breathing is nonlabored. Abdomen: Soft, nontender, nondistended. Extremities: No lower extremity edema. Psych: Alert and oriented. Procedures None Urinary Catheter: No Vascular Central Line Catheter: No A/P Problem List: (1) Atrial fibrillation with RVR ICD Code: I48.91 - Unspecified atrial fibrillation Status: Resolved (2) Alcohol dependence ICD Code: F10.20 - Alcohol dependence, uncomplicated Status: Chronic (3) HTN (hypertension) ICD Code: I10 - Essential (primary) hypertension Status: Chronic (4) Alcohol withdrawal ICD Code: F10.239 - Alcohol dependence with withdrawal, unspecified Status: Acute Assessment and Plan 1. Atrial fibrillation with RVR: Appreciate cardiology recommendations. Now off IV Cardizem and IV amiodarone. Continue oral Cardizem. Patient refusing oral anticoagulation. 2. Alcohol abuse, withdrawal: Alcohol withdrawal precautions. Taper Librium. CIWA protocol. 3. Hypertension: Continue Cardizem, lisinopril. Add hydralazine. Clonidine as needed. 4. Chest pain: Improving. Likely secondary to a-fib. Appreciate cardiology recommendations. Serial cardiac enzymes are negative. 5. DVT prophylaxis: Lovenox. Problem Qualifiers (1) Alcohol dependence: Qualified Codes: F10.230 - Alcohol dependence with withdrawal, uncomplicated Darius Barone MD Apr 12, 2017 09:47
[2017-04-12] MEDS: ENOXAPARIN SODIUM 40 MG/0.4 ML SYRINGE SQ SCH (11:20)
[2017-04-12] MEDS: cloNIDine HCL 0.1 MG TAB PO PRN (15:31)
[2017-04-13] VITALS (19 sets, daily range): BP systolic 134–157; BP diastolic 78–115; PULSE 52–78; RESP 16–18; TEMP 98.5–99; O2SAT 96–98
[2017-04-13] MEDS: cloNIDine HCL 0.1 MG TAB PO PRN (00:25)
[2017-04-13] MEDS: MORPHINE SULFATE 4 MG/ML INJ IV PRN ×5 (04:07→20:45)
[2017-04-13] MEDS: LORazepam 1 MG TAB PO PRN (06:05)
[2017-04-13 06:30] LABS: AUTOMATED NEUTROPHIL # 4.1 TH/MM3 (1.8-7.7); BASOPHIL # 0.1 TH/MM3 (0-0.2); BASOPHIL % 0.8 % (0.0-2.0); EOSINOPHIL # 0.2 TH/MM3 (0-0.4); EOSINOPHIL % 3.5 % (0.0-4.0); HEMATOCRIT 40.9 % (39.0-51.0); HEMO FLAGS DIFF FINAL; LYMPH % 21.7 % (9.0-44.0); LYMPHOCYTE # 1.5 TH/MM3 (1.0-4.8); MEAN CELL VOLUME 100.1 FL (80.0-100.0); MEAN CORPUSCULAR HEMOGLOBIN 34.5 PG (27.0-34.0); MEAN CORPUSCULAR HGB CONC 34.4 % (32.0-36.0); MONO % 13.2 % (0.0-8.0); NEUT % 60.8 % (16.0-70.0); PLATELET COUNT 179 TH/MM3 (150-450); RED BLOOD COUNT 4.09 MIL/MM3 (4.50-5.90); RED CELL DISTRIBUTION WIDTH 14.5 % (11.6-17.2); WHITE BLOOD COUNT 6.7 TH/MM3 (4.0-11.0)
[2017-04-13 06:47] LABS: BICARBONATE 27.5 MEQ/L (21.0-32.0); POTASSIUM 4.3 MEQ/L (3.5-5.1)
[2017-04-13] MEDS: DILTIAZEM HCL 30 MG TAB PO SCH ×4 (09:00→20:44)
[2017-04-13] MEDS: DOCUSATE SODIUM 50 MG/SENNA 8.6 MG TAB PO SCH ×2 (09:00→20:44)
[2017-04-13] MEDS: chlordiazePOXIDE 25 MG CAP PO SCH ×2 (10:31→20:44)
[2017-04-13] MEDS: LISINOPRIL 20 MG TAB PO SCH (10:32)
[2017-04-13] MEDS: hydrALAZINE HCL 25 MG TAB PO SCH ×3 (10:32→20:45)
[2017-04-13] MEDS: ASPIRIN EC 325 MG TABEC PO SCH (10:32)
[2017-04-13] MEDS: ENOXAPARIN SODIUM 40 MG/0.4 ML SYRINGE SQ SCH (10:34)
--- NOTE | 2017-04-13 10:47 | HHI.PR ---
Subjective Remarks Follow up hypertension, EtOH withdrawal. Patient still tremulous. Still with intermittent chest pain. Episodes last ~15 minutes. Also with intermittent dyspnea. Slight dizziness with ambulation. He feels that he is getting better overall. Objective Vitals Vital Signs Date Time Temp Pulse Resp B/P (MAP) Pulse Ox O2 Delivery O2 Flow Rate FiO2 04/13/17 06:00 60 04/13/17 05:00 56 04/13/17 04:11 16 04/13/17 04:00 52 04/13/17 03:00 56 04/13/17 03:00 98.5 58 16 152/78 (102) 96 04/13/17 02:00 54 04/13/17 01:00 56 04/13/17 00:00 64 04/12/17 23:00 98.7 69 16 158/101 (120) 96 04/12/17 23:00 64 04/12/17 22:00 72 04/12/17 21:00 60 04/12/17 20:00 60 04/12/17 19:00 62 04/12/17 19:00 98.0 64 18 175/113 (133) 97 04/12/17 18:00 64 04/12/17 17:00 62 04/12/17 16:00 67 04/12/17 15:30 162/107 (125) 04/12/17 15:00 79 18 178/110 (132) 99 04/12/17 15:00 72 04/12/17 14:00 69 04/12/17 13:00 70 04/12/17 11:00 72 19 127/74 (91) 99 04/12/17 11:00 73 I/O 04/12/17 04/12/17 04/12/17 04/13/17 04/13/17 04/13/17 07:00 15:00 23:00 07:00 15:00 23:00 Intake Total 960 ml 960 ml 720 ml Output Total 1140 ml 700 ml 1250 ml Balance -180 ml 260 ml -530 ml Intake Oral 960 ml 960 ml 720 ml Output Urine Total 1140 ml 700 ml 1250 ml # Bowel Movements 0 1 Result Diagram: 04/13/17 0550 04/13/17 0550 Imaging Last Impressions Chest X-Ray 04/08/17 0807 Signed Impressions: Service Date/Time: Saturday, April 08, 2017 08:21 - CONCLUSION: No acute disease. Anisha Lopez MD Objective Remarks General: No acute distress. Tremulous Heart: Regular rate and rhythm. Lungs: Clear to auscultation bilaterally. No wheezes, rales, or rhonchi. Breathing is nonlabored. Abdomen: Soft, nontender, nondistended. Extremities: No lower extremity edema. Psych: Alert and oriented. Procedures None Urinary Catheter: No Vascular Central Line Catheter: No A/P Problem List: (1) Atrial fibrillation with RVR ICD Code: I48.91 - Unspecified atrial fibrillation Status: Resolved (2) Alcohol dependence ICD Code: F10.20 - Alcohol dependence, uncomplicated Status: Chronic (3) HTN (hypertension) ICD Code: I10 - Essential (primary) hypertension Status: Chronic (4) Alcohol withdrawal ICD Code: F10.239 - Alcohol dependence with withdrawal, unspecified Status: Acute Assessment and Plan 1. Atrial fibrillation with RVR: Appreciate cardiology recommendations. Now off IV Cardizem and IV amiodarone. Continue oral Cardizem. Patient refusing oral anticoagulation. 2. Alcohol abuse, withdrawal: Alcohol withdrawal precautions. Librium. CIWA protocol. 3. Hypertension: Continue Cardizem, lisinopril, hydralazine. Clonidine as needed. 4. Chest pain: Improving. Likely secondary to a-fib, hypertension. Appreciate cardiology recommendations. Serial cardiac enzymes are negative. 5. DVT prophylaxis: Lovenox. Discharge Planning Pending clinical improvement. Problem Qualifiers (1) Alcohol dependence: Qualified Codes: F10.230 - Alcohol dependence with withdrawal, uncomplicated Darius Barone MD Apr 13, 2017 10:47
[2017-04-14] VITALS (27 sets, daily range): BP systolic 96–171; BP diastolic 53–102; PULSE 60–94; RESP 16–20; TEMP 98.2–99; O2SAT 98–99
[2017-04-14] MEDS: MORPHINE SULFATE 4 MG/ML INJ IV PRN ×6 (00:10→21:19)
[2017-04-14] MEDS: hydrALAZINE HCL 25 MG TAB PO SCH ×3 (04:57→22:28)
[2017-04-14] MEDS: DOCUSATE SODIUM 50 MG/SENNA 8.6 MG TAB PO SCH ×2 (09:17→21:19)
[2017-04-14] MEDS: chlordiazePOXIDE 25 MG CAP PO SCH (09:17)
[2017-04-14] MEDS: ASPIRIN EC 325 MG TABEC PO SCH (09:17)
[2017-04-14] MEDS: LISINOPRIL 20 MG TAB PO SCH (09:17)
[2017-04-14] MEDS: DILTIAZEM HCL 30 MG TAB PO SCH ×4 (09:18→21:19)
[2017-04-14] MEDS: cloNIDine HCL 0.1 MG TAB PO PRN (11:00)
[2017-04-14] MEDS: ENOXAPARIN SODIUM 40 MG/0.4 ML SYRINGE SQ SCH (11:00)
[2017-04-14] MEDS: LORazepam 1 MG TAB PO PRN ×3 (11:06→22:29)
--- NOTE | 2017-04-14 12:40 | HHI.PR ---
Subjective Remarks Follow-up hypertension, alcohol withdrawal. Patient states that he continues to feel little bit better each day. Still shaky. Gets lightheaded and dizzy when standing. No chest pain currently, but does continue having intermittent episodes of chest pain. Intermittent shortness of breath continues as well. Objective Vitals Vital Signs Date Time Temp Pulse Resp B/P (MAP) Pulse Ox O2 Delivery O2 Flow Rate FiO2 04/14/17 07:30 98.4 60 18 138/98 (111) 98 04/14/17 06:00 68 04/14/17 05:04 16 04/14/17 05:00 66 04/14/17 04:00 70 04/14/17 03:00 98.4 71 16 143/94 (110) 98 04/14/17 03:00 70 04/14/17 02:00 62 04/14/17 01:00 64 04/14/17 00:00 70 04/13/17 23:00 68 04/13/17 23:00 98.9 69 18 134/92 (106) 98 04/13/17 22:00 74 04/13/17 21:00 68 04/13/17 20:09 97 21 04/13/17 20:00 78 04/13/17 19:00 68 04/13/17 19:00 99.0 77 18 157/115 (129) 98 04/13/17 17:42 56 04/13/17 16:00 60 04/13/17 15:00 56 04/13/17 15:00 98.5 58 16 140/78 (98) 96 04/13/17 14:00 58 I/O 04/13/17 04/13/17 04/13/17 04/14/17 04/14/17 04/14/17 07:00 15:00 23:00 07:00 15:00 23:00 Intake Total 720 ml 720 ml 960 ml Output Total 1250 ml 1100 ml 1200 ml Balance -530 ml -380 ml -240 ml Intake Oral 720 ml 720 ml 960 ml Output Urine Total 1250 ml 1100 ml 1200 ml Result Diagram: 04/13/17 0550 04/13/17 0550 Imaging Last Impressions Chest X-Ray 04/08/17 0807 Signed Impressions: Service Date/Time: Saturday, April 08, 2017 08:21 - CONCLUSION: No acute disease. Anisha Lopez MD Objective Remarks General: No acute distress. Tremulous Heart: Regular rate and rhythm. Lungs: Clear to auscultation bilaterally. No wheezes, rales, or rhonchi. Breathing is nonlabored. Abdomen: Soft, nontender, nondistended. Extremities: No lower extremity edema. Psych: Alert and oriented. Procedures None Urinary Catheter: No Vascular Central Line Catheter: No A/P Problem List: (1) Atrial fibrillation with RVR ICD Code: I48.91 - Unspecified atrial fibrillation Status: Resolved (2) Alcohol dependence ICD Code: F10.20 - Alcohol dependence, uncomplicated Status: Chronic (3) HTN (hypertension) ICD Code: I10 - Essential (primary) hypertension Status: Chronic (4) Alcohol withdrawal ICD Code: F10.239 - Alcohol dependence with withdrawal, unspecified Status: Acute Assessment and Plan 1. Atrial fibrillation with RVR: Appreciate cardiology recommendations. Now off IV Cardizem and IV amiodarone. Continue oral Cardizem, switch to long-acting. Patient refusing oral anticoagulation. 2. Alcohol abuse, withdrawal: Alcohol withdrawal precautions. Taper Librium. CIWA protocol. 3. Hypertension: Continue Cardizem, hydralazine. Increase lisinopril. Clonidine as needed. 4. Chest pain: Improving. Likely secondary to a-fib, hypertension. Appreciate cardiology recommendations. Serial cardiac enzymes are negative. 5. DVT prophylaxis: Lovenox. Discharge Planning Pending clinical improvement. Problem Qualifiers (1) Alcohol dependence: Qualified Codes: F10.230 - Alcohol dependence with withdrawal, uncomplicated Darius Barone MD Apr 14, 2017 12:40
[2017-04-14] MEDS ORDERED: LISINOPRIL 10 MG TAB PO ONE (12:45)
[2017-04-14] MEDS: MAGNESIUM HYDROXIDE SUSP 30 ML CUP PO PRN (18:38)
[2017-04-15] VITALS (28 sets, daily range): BP systolic 137–158; BP diastolic 89–100; PULSE 62–155; RESP 17–20; TEMP 98.7–99.1; O2SAT 96–98
[2017-04-15] MEDS: MORPHINE SULFATE 4 MG/ML INJ IV PRN ×8 (00:31→23:07)
[2017-04-15] MEDS: LORazepam 1 MG TAB PO PRN ×4 (02:41→20:01)
[2017-04-15] MEDS: hydrALAZINE HCL 25 MG TAB PO SCH (06:28)
[2017-04-15 08:38] LABS: BICARBONATE 27.6 MEQ/L (21.0-32.0)
[2017-04-15] MEDS ORDERED: DILTIAZEM-CD 120 MG CAP ER PO SCH (09:00)
[2017-04-15] MEDS: DOCUSATE SODIUM 50 MG/SENNA 8.6 MG TAB PO SCH ×2 (10:14→20:01)
[2017-04-15] MEDS: ASPIRIN EC 325 MG TABEC PO SCH (10:15)
[2017-04-15] MEDS: chlordiazePOXIDE 25 MG CAP PO SCH (10:21)
[2017-04-15] MEDS: LISINOPRIL 10 MG TAB PO SCH (10:21)
[2017-04-15] MEDS: SODIUM CHLORIDE 0.9% FLUSH 10 ML FLUSH IVF PRN (10:22)
[2017-04-15] MEDS: ENOXAPARIN SODIUM 40 MG/0.4 ML SYRINGE SQ SCH ×2 (10:24→10:27)
--- NOTE | 2017-04-15 10:58 | HHI.PR ---
Subjective Remarks Follow up hypertension, EtOH withdrawal. The patient is still having episodes of chest pain, but less frequent and milder. Shaking is improving. Objective Vitals Vital Signs Date Time Temp Pulse Resp B/P (MAP) Pulse Ox O2 Delivery O2 Flow Rate FiO2 04/15/17 07:30 98.7 82 17 157/100 (119) 96 04/15/17 07:00 63 04/15/17 06:33 18 04/15/17 06:00 62 04/15/17 05:00 71 04/15/17 04:09 74 04/15/17 03:41 98.7 74 20 146/95 (112) 97 04/15/17 03:00 70 04/15/17 02:00 69 04/15/17 01:00 67 04/15/17 00:00 94 04/14/17 23:00 98.9 94 20 145/100 (115) 98 04/14/17 23:00 72 04/14/17 22:00 72 04/14/17 21:00 74 04/14/17 20:00 99.0 68 20 128/96 (107) 98 04/14/17 20:00 68 04/14/17 19:00 73 04/14/17 18:00 74 04/14/17 17:00 70 04/14/17 16:00 72 04/14/17 15:00 60 04/14/17 15:00 98.2 71 18 124/83 (97) 98 04/14/17 14:00 68 04/14/17 13:00 71 04/14/17 12:02 122/81 (95) 04/14/17 12:01 96/53 (67) 04/14/17 12:00 70 04/14/17 12:00 166/93 (117) 04/14/17 11:00 98.9 70 20 171/102 (125) 99 04/14/17 11:00 78 I/O 04/14/17 04/14/17 04/14/17 04/15/17 04/15/17 04/15/17 07:00 15:00 23:00 07:00 15:00 23:00 Intake Total 960 ml 2400 ml 480 ml Output Total 1200 ml 1275 ml Balance -240 ml 2400 ml -795 ml Intake Oral 960 ml 2400 ml 480 ml Output Urine Total 1200 ml 1275 ml # Bowel Movements 1 Result Diagram: 04/13/17 0550 04/15/17 0716 Imaging Last Impressions Chest X-Ray 04/08/17 0807 Signed Impressions: Service Date/Time: Saturday, April 08, 2017 08:21 - CONCLUSION: No acute disease. Anisha Lopez MD Objective Remarks General: No acute distress. Mildly tremulous. Heart: Regular rate and rhythm. Lungs: Clear to auscultation bilaterally. No wheezes, rales, or rhonchi. Breathing is nonlabored. Abdomen: Soft, nontender, nondistended. Extremities: No lower extremity edema. Psych: Alert and oriented. Procedures None Urinary Catheter: No Vascular Central Line Catheter: No A/P Problem List: (1) Atrial fibrillation with RVR ICD Code: I48.91 - Unspecified atrial fibrillation Status: Resolved (2) Alcohol dependence ICD Code: F10.20 - Alcohol dependence, uncomplicated Status: Chronic (3) HTN (hypertension) ICD Code: I10 - Essential (primary) hypertension Status: Chronic (4) Alcohol withdrawal ICD Code: F10.239 - Alcohol dependence with withdrawal, unspecified Status: Acute Assessment and Plan 1. Atrial fibrillation with RVR: Appreciate cardiology recommendations. Now off IV Cardizem and IV amiodarone. Continue long-acting oral Cardizem. Patient refusing oral anticoagulation. 2. Alcohol abuse, withdrawal: Alcohol withdrawal precautions. Taper Librium. CIWA protocol. 3. Hypertension: Continue Cardizem, hydralazine. Increase lisinopril. Clonidine as needed. 4. Chest pain: Improving. Likely secondary to a-fib, hypertension. Appreciate cardiology recommendations. Serial cardiac enzymes are negative. 5. DVT prophylaxis: Lovenox. Discharge Planning Possible discharge tomorrow pending further clinical improvement. Problem Qualifiers (1) Alcohol dependence: Qualified Codes: F10.230 - Alcohol dependence with withdrawal, uncomplicated Darius Barone MD Apr 15, 2017 10:58
--- NOTE | 2017-04-15 13:03 | MB ---
cc: TACHO HERNADEZ M.D. DATE OF CONSULTATION: 04/15/2017. REASON FOR CONSULTATION: Electrophysiology consultation for ventricular tachycardia. HISTORY OF PRESENT ILLNESS: Mr. Hansen is a 61-year-old gentleman with previous hospitalization in October and subsequently in February of 2017 due to atrial fibrillation with fast ventricular response. He has a history of high blood pressure and obesity. He has COPD. drinks heavily. The gentleman went fishing a couple of days ago. Subsequently he went binge drinking after catching around 600 pounds of [place]. The next morning woke up with chest tightness and palpitations. Heart rate was around 200 beats per minute. He went to the emergency room and was admitted due to atrial fibrillation with fast ventricular response. Subsequently heart rate controlled and he went back into sinus rhythm. During hospitalization, he developed wide complex tachyarrhythmia and possible ventricular tachycardia that was self-limiting. I was consulted for further evaluation and management. The chart was reviewed. The patient was evaluated. ALLERGIES: 1. PENICILLIN. 2. SULFA. SOCIAL HISTORY: As mentioned before, the gentleman drinks on average a 6-pack to a 12-pack of beer a day and a ____ of vodka. Before hospitalization, he was drinking Black Russians (I am not sure what that is). FAMILY HISTORY: Noncontributory to his current medical condition. MEDICATIONS: 1. Aspirin 325 milligrams a day. 2. Cardizem p.o. 3. Lovenox subcutaneous. 4. Apresoline. 5. Lisinopril. REVIEW OF SYSTEMS: Currently he refers no chest pain and no chest discomfort. No fever. PHYSICAL EXAMINATION: GENERAL: Alert, fully oriented in bed. VITAL SIGNS: His blood pressure is high at 157/100, pulse 78, respiratory rate 18. LUNGS: Ventilated. CARDIOVASCULAR: S1-S2. Regular. No gallop. No murmur. ABDOMEN: Abdomen obese, no mass. No bruits. EXTREMITIES: No edema. The electrocardiogram on hospitalization showed atrial fibrillation with fast ventricular response. Subsequent electrocardiogram shows sinus rhythm and diffuse S-T and T wave changes. ASSESSMENT AND RECOMMENDATIONS: Mr. Hansen has wide complex tachyarrhythmia, possible ventricular tachycardia versus atrial tachycardia with atrial fibrillation with aberrancy; but there was VA conduction and it is very irregular. It may be ventricular tachycardia but we have to take into consideration that the gentleman has a left bundle baseline. There was change of axis during tachyarrhythmia. He has a nuclear stress study that was done in October that showed no ischemia. He has an ejection fraction of 70%. The gentleman was not symptomatic during that episode. He has atrial fibrillation. He refused anticoagulation again. This is the third or fourth time he has refused anticoagulation despite the risks of stroke. At this point, I am going to D/C the Cardizem. Metoprolol will be used. I will try to control the blood pressure. I may use Norvasc. The gentleman will be observed in the next 24 hours. If there are no symptoms and the blood pressure is controlled, he can be discharged home. The case was extensively discussed with him. MD CORY Ruiz/JEREMIAH /12:22 PM /12:50 PM
[2017-04-15] MEDS: METOPROLOL TARTRATE 50 MG TAB PO SCH ×2 (13:38→20:01)
[2017-04-16] VITALS (28 sets, daily range): BP systolic 95–163; BP diastolic 67–103; PULSE 50–84; RESP 18–20; TEMP 97.7–98.8; O2SAT 96–98
[2017-04-16] MEDS: LORazepam 1 MG TAB PO PRN ×4 (00:27→21:02)
[2017-04-16] MEDS: MORPHINE SULFATE 4 MG/ML INJ IV PRN ×4 (02:15→12:28)
[2017-04-16] MEDS: METOPROLOL TARTRATE 50 MG TAB PO SCH ×2 (08:39→20:57)
[2017-04-16] MEDS: LISINOPRIL 10 MG TAB PO SCH (08:39)
[2017-04-16] MEDS: chlordiazePOXIDE 25 MG CAP PO SCH (08:40)
[2017-04-16] MEDS: ASPIRIN EC 325 MG TABEC PO SCH (08:40)
[2017-04-16] MEDS: DOCUSATE SODIUM 50 MG/SENNA 8.6 MG TAB PO SCH ×2 (08:40→20:57)
--- NOTE | 2017-04-16 09:14 | HHI.PR ---
Subjective Remarks Follow-up visit chest pain, alcohol withdrawal. Patient seen and examined today lying in bed. States he just woke up. Continues to complain of chest pain midsternal area towards the left side where he had fractured ribs. Pain is achy, 7/10, radiates to the lateral side, relieved with pain medication, aggravated by deep breathing and movements. Continues to report tremors/ shaking. Patient states that he does not want to go home today but is able to go home tomorrow. Denies SOB/ dyspnea. Denies palpitations, headaches, dizziness. Denies fevers, chills, n/v/d. As per nurse Lea, patient had an episode of low BP 98/50 last night. Repeat BP 120/93. She also states that previous day patient was measured with orthostatic hypotension. Otherwise, no acute issues overnight. Objective Vitals Vital Signs Date Time Temp Pulse Resp B/P (MAP) Pulse Ox O2 Delivery O2 Flow Rate FiO2 04/16/17 04:00 98.4 63 20 95/73 (80) 96 04/16/17 04:00 62 04/16/17 03:00 64 04/16/17 02:00 64 04/16/17 01:00 63 04/16/17 00:00 63 04/16/17 00:00 98.8 64 20 120/94 (103) 98 04/15/17 23:00 64 04/15/17 22:00 64 04/15/17 21:00 63 04/15/17 20:00 98.8 70 20 137/89 (105) 98 04/15/17 20:00 62 04/15/17 19:00 70 04/15/17 18:08 76 04/15/17 17:06 18 04/15/17 17:00 69 04/15/17 16:11 77 04/15/17 15:06 84 04/15/17 15:05 99.1 82 18 158/95 (116) 98 04/15/17 14:51 86 04/15/17 14:00 68 04/15/17 13:08 82 04/15/17 11:00 73 04/15/17 11:00 98.7 78 17 139/92 (108) 96 04/15/17 10:57 155 04/15/17 10:00 78 I/O 04/15/17 04/15/17 04/15/17 04/16/17 04/16/17 04/16/17 07:00 15:00 23:00 07:00 15:00 23:00 Intake Total 480 ml 840 ml Output Total 1275 ml 1700 ml Balance -795 ml -860 ml Intake Oral 480 ml 840 ml Output Urine Total 1275 ml 1700 ml # Bowel Movements 1 1 Result Diagram: 04/13/17 0550 04/15/17 0716 Imaging Last Impressions Chest X-Ray 04/08/17 0807 Signed Impressions: Service Date/Time: Saturday, April 08, 2017 08:21 - CONCLUSION: No acute disease. Anisha Lopez MD Objective Remarks GENERAL: This is a well-nourished, well-developed patient, in no apparent distress. SKIN: Warm and dry. HEENT: Normocephalic. Pupils equal round and reactive. Nose without bleeding. Airway patent. NECK: Trachea midline. No JVD. Supple. CARDIOVASCULAR: Regular rate and rhythm without murmurs, gallops, or rubs. RESPIRATORY: Clear to auscultation. Breath sounds equal bilaterally. No wheezes , rales, or rhonchi. GASTROINTESTINAL: Abdomen soft, non-tender, nondistended. Bowel Sounds normoactive x4. MUSCULOSKELETAL: Extremities without clubbing, cyanosis, or edema. Right hand arm tremors > Left NEUROLOGICAL: Awake and alert. Oriented to place, person. No focal neuro deficit. Moves all extremities. Normal speech. Procedures None A/P Problem List: (1) Atrial fibrillation with RVR ICD Code: I48.91 - Unspecified atrial fibrillation Status: Resolved (2) Alcohol dependence ICD Code: F10.20 - Alcohol dependence, uncomplicated Status: Chronic (3) HTN (hypertension) ICD Code: I10 - Essential (primary) hypertension Status: Chronic (4) Alcohol withdrawal ICD Code: F10.239 - Alcohol dependence with withdrawal, unspecified Status: Acute Assessment and Plan The patient is a 61-year-old male who presented to the emergency department for evaluation of chest pain. 1. Atrial fibrillation with RVR: Appreciate cardiology recommendations. Now off IV Cardizem and IV amiodarone. Continue long-acting oral Cardizem. Patient refusing oral anticoagulation. 2. Alcohol abuse, withdrawal: Alcohol withdrawal precautions. Taper Librium. CIWA protocol. 3. Hypertension: Continue lisinopril 30mg, Cardiology started patient on Metoprolol and norvasc 10mg. Clonidine as needed. Check orthostatic BP. Adjust BP meds as needed. May need to decrease metoprolol 25 mg BID if needed or amlodipine to 5mg. 4. Chest pain: Improving. Likely secondary to a-fib, hypertension. Appreciate cardiology recommendations. Serial cardiac enzymes are negative. 5. DVT prophylaxis: Lovenox. Discharge Planning Patient appears to be clinically stable but has episode of hypotension yesterday. Will do orthostatic BP and will DC today if orthostatic BP is WNL. Problem Qualifiers (1) Alcohol dependence: Qualified Codes: F10.230 - Alcohol dependence with withdrawal, uncomplicated Clark Carballo Apr 16, 2017 09:14
[2017-04-16] MEDS: ENOXAPARIN SODIUM 40 MG/0.4 ML SYRINGE SQ SCH (11:13)
--- NOTE | 2017-04-16 13:32 | HHI.PR ---
Subjective Remarks Feeling better Objective Vital Signs Date Time Temp Pulse Resp B/P (MAP) Pulse Ox O2 Delivery O2 Flow Rate FiO2 04/16/17 13:05 84 04/16/17 12:00 62 04/16/17 11:09 97.8 70 20 147/103 (118) 96 04/16/17 11:00 66 04/16/17 10:00 58 04/16/17 09:00 56 04/16/17 08:00 98.5 63 20 129/93 (105) 98 04/16/17 08:00 50 04/16/17 07:00 52 04/16/17 04:00 98.4 63 20 95/73 (80) 96 04/16/17 04:00 62 04/16/17 03:00 64 04/16/17 02:00 64 04/16/17 01:00 63 04/16/17 00:00 63 04/16/17 00:00 98.8 64 20 120/94 (103) 98 04/15/17 23:00 64 04/15/17 22:00 64 04/15/17 21:00 63 04/15/17 20:00 98.8 70 20 137/89 (105) 98 04/15/17 20:00 62 04/15/17 19:00 70 04/15/17 18:08 76 04/15/17 17:06 18 04/15/17 17:00 69 04/15/17 16:11 77 04/15/17 15:06 84 04/15/17 15:05 99.1 82 18 158/95 (116) 98 04/15/17 14:51 86 04/15/17 14:00 68 I/O 04/15/17 04/15/17 04/15/17 04/16/17 04/16/17 04/16/17 07:00 15:00 23:00 07:00 15:00 23:00 Intake Total 480 ml 840 ml Output Total 1275 ml 1700 ml Balance -795 ml -860 ml Intake Oral 480 ml 840 ml Output Urine Total 1275 ml 1700 ml # Bowel Movements 1 1 Result Diagram: 04/13/17 0550 04/15/17 0716 Imaging Alert, fully oriented lungs: ventilated Heart: S1, S2 regular, no gallop Abdomen: soft, no mass Ext: no edema Last Impressions Chest X-Ray 04/08/17 0807 Signed Impressions: Service Date/Time: Saturday, April 08, 2017 08:21 - CONCLUSION: No acute disease. Anisha Lopez MD Current Medications Medications (Trade) Dose Ordered Sig/Candy Route Start Time Stop Time Status Last Admin (NS Flush) 2 ml UNSCH PRN IVF 04/08/17 08:15 04/15/17 10:22 (NS Flush) 2 ml UNSCH PRN IV FLUSH 04/08/17 08:15 (Zofran Inj) 4 mg Q6H PRN IVP 04/08/17 10:15 (Lovenox Inj) 40 mg Q24H SQ 04/08/17 11:00 04/16/17 11:13 (Tylenol) 650 mg Q6H PRN PO 04/08/17 10:15 (Morphine Inj) 2 mg Q3H PRN IV 04/08/17 10:15 04/16/17 12:28 (Narcan Inj) 0.4 mg UNSCH PRN IV 04/08/17 10:15 (Desi-Colace) 1 tab BID PO 04/08/17 21:00 04/16/17 08:40 (Milk Of Magnesia Liq) 30 ml Q12H PRN PO 04/08/17 10:15 04/14/17 18:38 (Senokot) 17.2 mg Q12H PRN PO 04/08/17 10:15 (Dulcolax Supp) 10 mg DAILY PRN RECTAL 04/08/17 10:15 (Lactulose Liq) 30 ml DAILY PRN PO 04/08/17 10:15 (Romazicon Inj) 0.2 mg Q1M PRN IV PUSH 04/08/17 10:15 (Ativan) 1 mg Q4H PRN PO 04/08/17 10:15 04/16/17 11:13 (Ativan Inj) 1 mg Q4H PRN IV PUSH 04/08/17 10:15 04/10/17 07:05 (Ativan) 2 mg Q2H PRN PO 04/08/17 10:15 04/09/17 04:17 (Ativan Inj) 2 mg Q2H PRN IV PUSH 04/08/17 10:15 04/10/17 21:00 (Ativan Inj) 2 mg Q1H PRN IV PUSH 04/08/17 10:15 (Ativan Inj) 2 mg Q15M PRN IV PUSH 04/08/17 10:15 (Ecotrin Ec) 325 mg DAILY PO 04/09/17 09:00 04/16/17 08:40 (Pill Splitter) 1 ea UNSCH PRN OTHER 04/09/17 10:00 (Catapres) 0.1 mg Q6H PRN PO 04/10/17 10:00 04/14/17 11:00 (Librium) 25 mg DAILY PO 04/15/17 09:00 04/16/17 08:40 (Prinivil) 30 mg DAILY PO 04/15/17 09:00 04/16/17 08:39 (Lopressor) 50 mg BID PO 04/15/17 12:15 04/16/17 08:39 (Norvasc) 10 mg DAILY PO 04/16/17 09:00 04/16/17 08:40 Assessment and Plan Problem List: (1) Atrial fibrillation ICD Codes: I48.91 - Unspecified atrial fibrillation Status: Chronic Plan: In sinus rhythm Decides to take anticoagulation Lovenox and aspirin DC Eliquis DC Ablation will be scheduled in 3 weeks (2) SOB (shortness of breath) ICD Codes: R06.02 - Shortness of breath Status: Acute Plan: Improving Saloni Mcmahon MD Apr 16, 2017 13:32
[2017-04-16] MEDS: oxyCODONE/ACETAMINOPHEN 5 MG/325 MG TAB PO PRN (18:50)
[2017-04-16] MEDS: APIXABAN 5 MG TABLET PO SCH (20:57)
[2017-04-16] MEDS: MAGNESIUM HYDROXIDE SUSP 30 ML CUP PO PRN (20:58)
[2017-04-16] MEDS: oxyCODONE/ACETAMINOPHEN 7.5 MG/325 MG TAB PO PRN (22:57)
[2017-04-17] VITALS (29 sets, daily range): BP systolic 110–148; BP diastolic 71–99; PULSE 60–140; RESP 18–20; TEMP 97.6–98.5; O2SAT 97–100
[2017-04-17] MEDS: LORazepam 1 MG TAB PO PRN ×5 (01:19→21:07)
[2017-04-17] MEDS: oxyCODONE/ACETAMINOPHEN 7.5 MG/325 MG TAB PO PRN ×6 (03:27→21:07)
--- NOTE | 2017-04-17 08:55 | PD.CARD.PN ---
Subjective Subjective Remarks Feels okay. Objective Medications Current Medications Medications (Trade) Dose Ordered Sig/Candy Route Start Time Stop Time Status Last Admin (NS Flush) 2 ml UNSCH PRN IVF 04/08/17 08:15 04/15/17 10:22 (NS Flush) 2 ml UNSCH PRN IV FLUSH 04/08/17 08:15 (Zofran Inj) 4 mg Q6H PRN IVP 04/08/17 10:15 (Tylenol) 650 mg Q6H PRN PO 04/08/17 10:15 (Narcan Inj) 0.4 mg UNSCH PRN IV 04/08/17 10:15 (Desi-Colace) 1 tab BID PO 04/08/17 21:00 04/16/17 20:57 (Milk Of Magnesia Liq) 30 ml Q12H PRN PO 04/08/17 10:15 04/16/17 20:58 (Senokot) 17.2 mg Q12H PRN PO 04/08/17 10:15 (Dulcolax Supp) 10 mg DAILY PRN RECTAL 04/08/17 10:15 (Lactulose Liq) 30 ml DAILY PRN PO 04/08/17 10:15 (Romazicon Inj) 0.2 mg Q1M PRN IV PUSH 04/08/17 10:15 (Ativan) 1 mg Q4H PRN PO 04/08/17 10:15 04/17/17 01:19 (Ativan Inj) 1 mg Q4H PRN IV PUSH 04/08/17 10:15 04/10/17 07:05 (Ativan) 2 mg Q2H PRN PO 04/08/17 10:15 04/09/17 04:17 (Ativan Inj) 2 mg Q2H PRN IV PUSH 04/08/17 10:15 04/10/17 21:00 (Ativan Inj) 2 mg Q1H PRN IV PUSH 04/08/17 10:15 (Ativan Inj) 2 mg Q15M PRN IV PUSH 04/08/17 10:15 (Pill Splitter) 1 ea UNSCH PRN OTHER 04/09/17 10:00 (Catapres) 0.1 mg Q6H PRN PO 04/10/17 10:00 04/14/17 11:00 (Librium) 25 mg DAILY PO 04/15/17 09:00 04/16/17 08:40 (Lopressor) 50 mg BID PO 04/15/17 12:15 04/16/17 20:57 (Norvasc) 10 mg DAILY PO 04/16/17 09:00 04/16/17 08:40 (Prinivil) 40 mg DAILY PO 04/17/17 09:00 (Eliquis) 5 mg BID PO 04/16/17 21:00 04/16/17 20:57 (Percocet 5-325 Mg) 1 tab Q4H PRN PO 04/16/17 15:00 04/16/17 18:50 (Percocet 7.5-325 Mg) 1 tab Q4H PRN PO 04/16/17 15:00 04/17/17 07:09 Vital Signs / I&O Vital Signs Date Time Temp Pulse Resp B/P (MAP) Pulse Ox O2 Delivery O2 Flow Rate FiO2 04/17/17 07:12 97.9 66 20 148/86 (106) 100 04/17/17 07:00 60 04/17/17 06:00 68 04/17/17 05:00 70 04/17/17 04:00 74 04/17/17 03:20 98.4 72 18 117/79 (92) 97 04/17/17 03:00 72 04/17/17 02:00 65 04/17/17 01:00 68 04/17/17 00:00 72 04/16/17 23:00 97.7 67 18 163/94 (117) 96 04/16/17 23:00 66 04/16/17 22:00 68 04/16/17 21:00 72 04/16/17 20:30 98.7 73 18 152/67 (95) 98 04/16/17 20:00 64 04/16/17 19:00 63 04/16/17 17:00 64 04/16/17 16:00 66 04/16/17 15:04 97.9 74 20 146/92 (110) 96 04/16/17 15:00 66 04/16/17 14:00 80 04/16/17 13:05 84 04/16/17 12:32 128/78 (95) 04/16/17 12:31 158/97 (117) 04/16/17 12:30 144/99 (114) 04/16/17 12:00 62 04/16/17 11:09 97.8 70 20 147/103 (118) 96 04/16/17 11:00 66 04/16/17 10:30 97 21 04/16/17 10:00 58 04/16/17 09:00 56 I/O 04/16/17 04/16/17 04/16/17 04/17/17 04/17/17 04/17/17 07:00 15:00 23:00 07:00 15:00 23:00 Intake Total 840 ml 1080 ml Output Total 1650 ml Balance 840 ml -570 ml Intake Oral 840 ml 1080 ml Output Urine Total 1650 ml # Voids 4 # Bowel Movements 0 Physical Exam GENERAL: Well-nourished, well-developed patient. SKIN: Warm and dry. HEAD: Normocephalic. EYES: No scleral icterus. No injection or drainage. NECK: Supple, trachea midline. No JVD or lymphadenopathy. CARDIOVASCULAR: Regular rate and rhythm without murmurs, gallops, or rubs. RESPIRATORY: Breath sounds equal bilaterally. No accessory muscle use. GASTROINTESTINAL: Abdomen soft, non-tender, nondistended. EXTREMITIES: No cyanosis, or edema. NEUROLOGICAL: Awake, alert, and oriented x 3. Non-focal. Imaging Last Impressions Chest X-Ray 04/08/17 0807 Signed Impressions: Service Date/Time: Saturday, April 08, 2017 08:21 - CONCLUSION: No acute disease. Anisha Lopez MD Assessment and Plan Problem List: (1) A-fib ICD Codes: I48.91 - Unspecified atrial fibrillation Status: Chronic Plan: Patient has now agreed to taking eliquis and undergoing atrial fibrillation ablation with Dr. Mcmahon. He is currently in sinus rhythm on telemetry. He is stable for discharge home from EP standpoint when cleared by managing medical team. He will be followed by Dr. Mcmahon's office as an outpatient to schedule ablation. He will need to be on eliquis for 3 weeks prior to undergoing ablation. Extensive preoperative education was provided and all questions answered. Assessment and plan discussed with patient, RN, Dr. Mcmahon. (2) HTN (hypertension) ICD Codes: I10 - Essential (primary) hypertension Status: Chronic Plan: Extensive education given regarding hypertension and heart damage. Patient states he had previously been taken off amlodipine but has agreed to resume for better blood pressure control. Problem Qualifiers (1) A-fib: Qualified Codes: I48.0 - Paroxysmal atrial fibrillation Imelda Robbins Apr 17, 2017 08:55
--- NOTE | 2017-04-17 09:04 | HHI.PR ---
Subjective Remarks Follow-up visit chest pain, alcohol withdrawal, AFIB RVR. Patient seen and examined today lying in bed. States he is doing "so-so." States he spoke with Dr. Mcmahon yesterday and he is aware that he will need an ablation in 3 weeks and that he will be on Eliquis. Discuss with patient plan for discharge home. States if he can get his prescription refilled before leaving. He also states he has no way of getting back to the [place]. Reports he lives in a boat that will not come back until midnight tonight. Reports mild left lateral chest pain , aggravated by deep breaths and movement. Complaint of constipation. Otherwise , denies SOB/ dyspnea. Denies palpitations, headaches, dizziness. Denies fevers , chills, n/v/d. Patient was starting to be agitated when he was told about medications and plan for discharge. He was adamant that he was taking the medications mentioned to him lisinopril, amlodipine, metoprolol. States he has not been getting Librium. I showed patient his medication list and told him that his nurse will discuss all his medications with him on his discharged. Spoke with nurse Lea , patient has been timing his benzos and pain medications since few days she has him. Objective Vitals Vital Signs Date Time Temp Pulse Resp B/P (MAP) Pulse Ox O2 Delivery O2 Flow Rate FiO2 04/17/17 07:12 97.9 66 20 148/86 (106) 100 04/17/17 07:00 60 04/17/17 06:00 68 04/17/17 05:00 70 04/17/17 04:00 74 04/17/17 03:20 98.4 72 18 117/79 (92) 97 04/17/17 03:00 72 04/17/17 02:00 65 04/17/17 01:00 68 04/17/17 00:00 72 04/16/17 23:00 97.7 67 18 163/94 (117) 96 04/16/17 23:00 66 04/16/17 22:00 68 04/16/17 21:00 72 04/16/17 20:30 98.7 73 18 152/67 (95) 98 04/16/17 20:00 64 04/16/17 19:00 63 04/16/17 17:00 64 04/16/17 16:00 66 04/16/17 15:04 97.9 74 20 146/92 (110) 96 04/16/17 15:00 66 04/16/17 14:00 80 04/16/17 13:05 84 04/16/17 12:32 128/78 (95) 04/16/17 12:31 158/97 (117) 04/16/17 12:30 144/99 (114) 04/16/17 12:00 62 04/16/17 11:09 97.8 70 20 147/103 (118) 96 04/16/17 11:00 66 04/16/17 10:30 97 21 04/16/17 10:00 58 04/16/17 09:00 56 I/O 04/16/17 04/16/17 04/16/17 04/17/17 04/17/17 04/17/17 07:00 15:00 23:00 07:00 15:00 23:00 Intake Total 840 ml 1080 ml Output Total 1650 ml Balance 840 ml -570 ml Intake Oral 840 ml 1080 ml Output Urine Total 1650 ml # Voids 4 # Bowel Movements 0 Result Diagram: 04/13/17 0550 04/15/17 0716 Imaging Last Impressions Chest X-Ray 04/08/17 0807 Signed Impressions: Service Date/Time: Saturday, April 08, 2017 08:21 - CONCLUSION: No acute disease. Anisha Lopez MD Objective Remarks GENERAL: This is a well-nourished, well-developed patient, in no apparent distress. SKIN: Warm and dry. HEENT: Normocephalic. Pupils equal round and reactive. Nose without bleeding. Airway patent. NECK: Trachea midline. No JVD. Supple. CARDIOVASCULAR: Regular rate and rhythm without murmurs, gallops, or rubs. RESPIRATORY: Clear to auscultation. Breath sounds equal bilaterally. No wheezes , rales, or rhonchi. GASTROINTESTINAL: Abdomen soft, non-tender, nondistended. Bowel Sounds normoactive x4. MUSCULOSKELETAL: Extremities without clubbing, cyanosis, or edema. Right hand arm tremors > Left NEUROLOGICAL: Awake and alert. Oriented to place, person. No focal neuro deficit. Moves all extremities. Normal speech. Procedures None A/P Problem List: (1) Atrial fibrillation with RVR ICD Code: I48.91 - Unspecified atrial fibrillation Status: Resolved (2) Alcohol dependence ICD Code: F10.20 - Alcohol dependence, uncomplicated Status: Chronic (3) HTN (hypertension) ICD Code: I10 - Essential (primary) hypertension Status: Chronic (4) Alcohol withdrawal ICD Code: F10.239 - Alcohol dependence with withdrawal, unspecified Status: Acute Assessment and Plan The patient is a 61-year-old male who presented to the emergency department for evaluation of chest pain. 1. Atrial fibrillation with RVR: Appreciate cardiology recommendations. Now off IV Cardizem and IV amiodarone. Off long-acting oral Cardizem, now on metoprolol. Dr. Mcmahon plan for ablation in 3 weeks and patient has agreed to start on Eliquis 5 mg BID. He will follow with Cardiology as outpatient. 2. Alcohol abuse, withdrawal: Alcohol withdrawal precautions. Taper Librium. CIWA protocol. 3. Hypertension: Increase lisinopril 40mg, continue Metoprolol and norvasc 10mg. Clonidine as needed. Patient BP yesterday stable. SBP recorded 140s- 160s. 4. Chest pain: Improving. Likely secondary to a-fib, hypertension. Appreciate cardiology recommendations. Serial cardiac enzymes are negative. Patient now SR 5. DVT prophylaxis: Aide Discuss with patient, nursing, Dr. Oliveros. The exam, history, and the medical decision-making described in the above note were completed with the assistance of the mid-level provider. I reviewed and agree with the findings presented. I attest that I had a [id number] encounter with the patient on the same day, and personally performed and documented my assessment and findings in the medical record. Patient seen and examined. Discharge held as patient had multiple runs of V. tach. Blood pressure is uncontrolled. Discussed with RN. Patient reports he is feeling okay. He denies shortness of breath or chest pain. GENERAL: Obese male in no apparent distress. CARDIOVASCULAR: Normal rate and regular rhythm without murmurs, gallops, or rubs. RESPIRATORY: Good respiratory efforts. Breath sounds equal and clear to auscultation bilaterally. GASTROINTESTINAL: Abdomen soft, non-tender, non-distended. Normal active bowel sounds MUSCULOSKELETAL: Extremities without cyanosis, or edema. NEURO: Alert & Oriented x4 to person, place, time, situation. Moves all ext x4 PSYCH: Appropriate mood and affect. Hold discharge for now. Continue to monitor. RN to alert cardiology of new runs of V. tach. Patient is currently asymptomatic. Blood pressure control. Clonidine as needed. Continue metoprolol and lisinopril. Discharge Planning . Problem Qualifiers (1) Alcohol dependence: Qualified Codes: F10.230 - Alcohol dependence with withdrawal, uncomplicated Clark Carballo Apr 17, 2017 09:04 Adali Oliveros MD Apr 17, 2017 19:00
[2017-04-17] MEDS ORDERED: LISI-515 PO (09:08)
[2017-04-17] MEDS ORDERED: APIX5TAB PO (09:08)
[2017-04-17] MEDS ORDERED: AMLO10 PO (09:08)
[2017-04-17] MEDS ORDERED: METO-309 PO (09:08)
--- NOTE | 2017-04-17 09:14 | HHI.DS ---
Discharge Summary Admission Date Apr 08, 2017 at 09:50 Discharge Date: Apr 17, 2017 Admitting Diagnosis atrial fibrillation with RVR, new left bundle-branch block, alcohol (1) Atrial fibrillation with RVR ICD Code: I48.91 - Unspecified atrial fibrillation Status: Resolved (2) Alcohol dependence ICD Code: F10.20 - Alcohol dependence, uncomplicated Status: Chronic (3) HTN (hypertension) ICD Code: I10 - Essential (primary) hypertension Status: Chronic (4) Alcohol withdrawal ICD Code: F10.239 - Alcohol dependence with withdrawal, unspecified Status: Acute Procedures None Brief History - From Admission The patient is a 61-year-old male who presented to the emergency department for evaluation of chest pain that started suddenly this morning while he was walking. He states that he had walked about a mile this morning, and then developed sharp left-sided chest pain that did not radiate. He described the pain as 9/10. It improved after receiving medications, but is now currently 8/ 10. Reports acute onset of diaphoresis and dyspnea as well. EMS noted that the patient was in SVT and he was given adenosine IV prior to arrival in the ER. This did not change his symptoms and his heart rate remained elevated. He was given IV diltiazem ER and placed on diltiazem drip. The patient is still having chest pain. CBC/BMP: 04/13/17 0550 04/15/17 0716 Significant Findings Laboratory Tests Test 04/15/17 07:16 Random Glucose 107 MG/DL (74-106) Estimat Glomerular Filtration Rate 87 ML/MIN (>89) PE at Discharge GENERAL: This is a well-nourished, well-developed patient, in no apparent distress. SKIN: Warm and dry. HEENT: Normocephalic. Pupils equal round and reactive. Nose without bleeding. Airway patent. NECK: Trachea midline. No JVD. Supple. CARDIOVASCULAR: Regular rate and rhythm without murmurs, gallops, or rubs. RESPIRATORY: Clear to auscultation. Breath sounds equal bilaterally. No wheezes , rales, or rhonchi. GASTROINTESTINAL: Abdomen soft, non-tender, nondistended. Bowel Sounds normoactive x4. MUSCULOSKELETAL: Extremities without clubbing, cyanosis, or edema. Right hand arm tremors > Left NEUROLOGICAL: Awake and alert. Oriented to place, person. No focal neuro deficit. Moves all extremities. Normal speech. Pt update on day of discharge Follow-up visit chest pain, alcohol withdrawal, AFIB RVR. Patient seen and examined today lying in bed. States he is doing "so-so." States he spoke with Dr. Mcmahon yesterday and he is aware that he will need an ablation in 3 weeks and that he will be on Eliquis. Discuss with patient plan for discharge home. States if he can get his prescription refilled before leaving. He also states he has no way of getting back to the [place]. Reports he lives in a boat that will not come back until midnight tonight. Reports mild left lateral chest pain , aggravated by deep breaths and movement. Complaint of constipation. Otherwise , denies SOB/ dyspnea. Denies palpitations, headaches, dizziness. Denies fevers , chills, n/v/d. Patient was starting to be agitated when he was told about medications and plan for discharge. He was adamant that he was taking the medications mentioned to him lisinopril, amlodipine, metoprolol. States he has not been getting Librium. I showed patient his medication list and told him that his nurse will discuss all his medications with him on his discharged. Spoke with nurse Lea , patient has been timing his benzos and pain medications since few days she has him. Hospital Course The patient is a 61-year-old male who presented to the emergency department for evaluation of chest pain. He was initially noted to have Afib with RVR. Seen and followed by Dr. Mcmahon in the inpatient. Patient was on IV cardizem and IV amiodarone for AFIB. Transitioned to cardizem PO. It has resolved now on SR. His medication was changed per cardiology he is now on metoprolol for rate control. He was hypertensive and was placed on lisinopril 40mg, metoprolol, norvasc. Patient has agreed for anticoagulation, eliquis was started. He will then follow up with Dr. Mcmahon as outpatient and plan for ablation in 3 weeks. Chest pain has improved. Patient also with known ETOH. He was on CIWA protocol and started on librium tapered dose. Patient clinically stable. He will be discharged home. Pt Condition on Discharge: Good Discharge Disposition: Discharge Home Discharge Time: > 30 minutes Discharge Instructions DIET: Follow Instructions for: Heart Healthy Diet Activities you can perform: Regular-No Restrictions Activities to Avoid: Driving for 24 hrs Follow up Referrals: Cardiology - 2 Weeks with Saloni Mcmahon MD PCP Follow-up - 1 Week New Medications: Amlodipine (Norvasc) 10 Mg Tab 10 MG PO DAILY for Blood Pressure Management, #30 TAB Apixaban (Eliquis) 5 Mg Tab 5 MG PO BID for Atrial Fibrilation for 30 Days, #60 TAB Lisinopril (Lisinopril) 20 Mg Tab 40 MG PO DAILY for Blood Pressure Management, #30 TAB Metoprolol Tartrate (Lopressor) 50 Mg Tab 50 MG PO BID for HTN for 30 Days, #60 TAB Discontinued Medications: Amlodipine (Amlodipine) 2.5 Mg Tab 2.5 MG PO DAILY for Blood Pressure Management, #30 TAB [address] (Aspirin EC) 81 Mg Tabdr 81 MG PO DAILY for atrial fibrillation, #30 TAB 0 Refills Lisinopril (Lisinopril) 10 Mg Tab 10 MG PO DAILY for hypertension, #30 TAB 0 Refills Clark Carballo Apr 17, 2017 09:14
[2017-04-17] MEDS: METOPROLOL TARTRATE 50 MG TAB PO SCH ×2 (09:15→21:06)
[2017-04-17] MEDS: DOCUSATE SODIUM 50 MG/SENNA 8.6 MG TAB PO SCH ×2 (09:15→21:06)
[2017-04-17] MEDS: chlordiazePOXIDE 25 MG CAP PO SCH (09:15)
[2017-04-17] MEDS: LISINOPRIL 20 MG TAB PO SCH (09:15)
[2017-04-17] MEDS: APIXABAN 5 MG TABLET PO SCH ×2 (09:15→21:06)
--- NOTE | 2017-04-17 09:44 | HHI.PR ---
Addendum to Inpatient Note Addendum Reason: Additional Documentation Additional Information Nurse Alissa called and reported patient had a long run of VT. SBPs in 170's. Will hold off discharge for now. Check labs and new EKG. Patient states he is doing okay. He continues to have chest pain, left lateral chest. States his ribs are broken. Reproducible lateral chest pain, noted subcutaneous crepitus on the lateral side. Assessment patient doing hold off discharge home for now and will continue to observe him. Will follow-up results of labs and other diagnostics. 1445: Nurse Alissa called again to report the patient had another run of V. tach. Patient was in the bathroom. States blood pressure was elevated and he was given clonidine. Labs been reviewed, CBC within normal, BMP within normal, troponin less than 0.02. Discuss with Dr. Oliveros and nurse. Nurse to notify Dr. Mcmahon that discharged has been held and patient had episodes of VTs. Clark Carballo Apr 17, 2017 09:44
[2017-04-17 12:39] LABS: HEMATOCRIT 44.6 % (39.0-51.0); MEAN CELL VOLUME 99.4 FL (80.0-100.0); MEAN CORPUSCULAR HEMOGLOBIN 33.7 PG (27.0-34.0); MEAN CORPUSCULAR HGB CONC 33.9 % (32.0-36.0); PLATELET COUNT 208 TH/MM3 (150-450); RED BLOOD COUNT 4.49 MIL/MM3 (4.50-5.90); RED CELL DISTRIBUTION WIDTH 13.9 % (11.6-17.2); REVIEW FLAG FINAL; WHITE BLOOD COUNT 5.4 TH/MM3 (4.0-11.0)
[2017-04-17 13:20] LABS: BICARBONATE 27.9 MEQ/L (21.0-32.0); MAGNESIUM 2.2 MG/DL (1.5-2.5); POTASSIUM 3.9 MEQ/L (3.5-5.1)
--- NOTE | 2017-04-17 13:55 | EKG ---
Date Performed: 04/17/2017 Time Performed: 10:25:40 PTAGE: 61 years EKG: Sinus rhythm with intermittent PACs, showing intraventricular conduction delay. Correlation with previous y compl ex tachycardia strongly recommended. Abnormal ECG PREVIOUS TRACING 04/08/17 DOCTOR: Wade Cohen Interpretating Date/Time 04/17/2017 13:52:58
[2017-04-17] MEDS: cloNIDine HCL 0.1 MG TAB PO PRN (14:17)
[2017-04-17] MEDS: MAGNESIUM HYDROXIDE SUSP 30 ML CUP PO PRN (15:52)
[2017-04-18] VITALS (26 sets, daily range): BP systolic 119–154; BP diastolic 78–109; PULSE 56–76; RESP 16–20; TEMP 97.5–98.9; O2SAT 94–97
[2017-04-18] MEDS: LORazepam 1 MG TAB PO PRN ×5 (01:24→23:15)
[2017-04-18] MEDS: oxyCODONE/ACETAMINOPHEN 7.5 MG/325 MG TAB PO PRN ×4 (01:25→21:03)
[2017-04-18] MEDS: chlordiazePOXIDE 25 MG CAP PO SCH (08:16)
[2017-04-18] MEDS: LISINOPRIL 20 MG TAB PO SCH (08:17)
[2017-04-18] MEDS: METOPROLOL TARTRATE 50 MG TAB PO SCH ×2 (08:17→21:03)
[2017-04-18] MEDS: DOCUSATE SODIUM 50 MG/SENNA 8.6 MG TAB PO SCH ×2 (08:17→21:03)
[2017-04-18] MEDS: APIXABAN 5 MG TABLET PO SCH ×2 (08:20→21:02)
--- NOTE | 2017-04-18 08:41 | HHI.PR ---
Subjective Remarks Follow-up visit A. fib with RVR, runs of V. tach episodes, HTN, EtOH abuse. Patient seen and examined today. Nurse Omayra at the bedside. Reports he is nervous and anxious of what's going on with him. Complaints of pain but unable to really describe where the pain is coming from. When nurse pointed out that he just received his pain medication at 6:30 AM, patient became agitated saying he did not receive any pain medication since yesterday evening. I pointed out to the patient that they have asked him if he has pain before giving the medication and he cannot pull out the medication from the dispenser if it does not get time especially if he has received a dose recently. I also pointed out that they have to scan him to be able to give the medication that's why it is recorded in the computer. Patient became silent. As per nursing, patient had another run of V. tach overnight. Call for Dr. Lopez was placed and he will see the patient today. Objective Vitals Vital Signs Date Time Temp Pulse Resp B/P (MAP) Pulse Ox O2 Delivery O2 Flow Rate FiO2 04/18/17 07:15 97.5 70 20 130/89 (103) 96 04/18/17 07:00 70 04/18/17 06:05 58 04/18/17 05:00 62 04/18/17 04:00 74 04/18/17 03:00 98.2 75 16 119/81 (94) 95 04/18/17 03:00 68 04/18/17 02:43 18 04/18/17 02:00 70 04/18/17 01:00 72 04/18/17 00:00 76 04/17/17 23:00 98.5 66 20 128/94 (105) 98 04/17/17 23:00 66 04/17/17 22:00 62 04/17/17 21:00 62 04/17/17 20:00 64 04/17/17 19:00 64 04/17/17 19:00 97.6 66 18 126/99 (108) 97 124/97 (106) 110/71 (84) 04/17/17 18:15 98 21 04/17/17 18:00 68 04/17/17 17:00 66 04/17/17 16:00 62 04/17/17 15:54 98.1 75 18 125/81 (96) 98 04/17/17 15:00 64 04/17/17 14:00 140 04/17/17 13:00 70 04/17/17 12:00 64 04/17/17 12:00 99 04/17/17 11:00 60 04/17/17 10:00 80 04/17/17 09:30 140 04/17/17 09:00 60 I/O 04/17/17 04/17/17 04/17/17 04/18/17 04/18/17 04/18/17 07:00 15:00 23:00 07:00 15:00 23:00 Intake Total 1080 ml 1440 ml 480 ml Output Total 1650 ml 0 ml 950 ml Balance -570 ml 1440 ml -470 ml Intake Oral 1080 ml 1440 ml 480 ml Output Urine Total 1650 ml 950 ml Stool Total 0 ml # Voids 6 # Bowel Movements 0 3 Result Diagram: 04/17/17 1140 04/17/17 1140 Imaging Last Impressions Chest X-Ray 04/08/17 0807 Signed Impressions: Service Date/Time: Saturday, April 08, 2017 08:21 - CONCLUSION: No acute disease. Anisha Lopez MD Objective Remarks GENERAL: This is a well-nourished, well-developed patient, in no apparent distress. SKIN: Warm and dry. HEENT: Normocephalic. Pupils equal round and reactive. Nose without bleeding. Airway patent. NECK: Trachea midline. No JVD. Supple. CARDIOVASCULAR: Regular rate and rhythm without murmurs, gallops, or rubs. RESPIRATORY: Clear to auscultation. Breath sounds equal bilaterally. No wheezes , rales, or rhonchi. GASTROINTESTINAL: Abdomen soft, non-tender, nondistended. Bowel Sounds normoactive x4. MUSCULOSKELETAL: Extremities without clubbing, cyanosis, or edema. Right hand arm tremors > Left. Left lateral chest crepitus noted. NEUROLOGICAL: Awake and alert. Oriented to place, person. No focal neuro deficit. Moves all extremities. Normal speech. Procedures None A/P Problem List: (1) Atrial fibrillation with RVR ICD Code: I48.91 - Unspecified atrial fibrillation Status: Resolved (2) Alcohol dependence ICD Code: F10.20 - Alcohol dependence, uncomplicated Status: Chronic (3) HTN (hypertension) ICD Code: I10 - Essential (primary) hypertension Status: Chronic (4) Alcohol withdrawal ICD Code: F10.239 - Alcohol dependence with withdrawal, unspecified Status: Acute Assessment and Plan The patient is a 61-year-old male who presented to the emergency department for evaluation of chest pain. Arrythmias, Vtach - Episodes of Vtach yesterday and overnight. >20 beats and converted without intervention. EKG reviewed sinus rhythm, intermittent PAC showing intraventricular conduction delay. - Pt now SR - Labs ordered BMP within normal, CBC within normal - Serial troponin flat - We'll have Dr. Mcmahon further evaluate the patient. We'll hold off on discharge. Atrial fibrillation with RVR: Appreciate cardiology recommendations. Off IV Cardizem and IV amiodarone. Off long-acting oral Cardizem. - on metoprolol. Dr. Mcmahon plan for ablation in 3 weeks and patient has agreed to start on Eliquis 5 mg BID. - He will follow with Cardiology as outpatient. Alcohol abuse, withdrawal: Alcohol withdrawal precautions. Taper Librium. CIWA protocol. - Tremors continue, mild Hypertension: Increase lisinopril 40mg, continue Metoprolol and norvasc 10mg. Clonidine as needed. - Monitor BP Trend Chest pain: Improving. Likely secondary to a-fib, hypertension, x2 rib fractures. - Appreciate cardiology recommendations. - Serial cardiac enzymes are negative. - Patient now SR Chronic Pain - Pain seeking behavior noted. As per nursing, patient is always asking his pain medication either ahead of time are on time even if he sleep and he will wake up for the pain medication and Ativan to be requested - Will taper dose of Percocet every 6 hours DVT prophylaxis: Debbiquis Discuss with patient, nursing, Dr. Oliveros. Discharge Planning Needs to be evaluated by Cards. Pending cardiology clearance. Problem Qualifiers (1) Alcohol dependence: Qualified Codes: F10.230 - Alcohol dependence with withdrawal, uncomplicated Clark Carballo [facility] Apr 18, 2017 08:41
[2017-04-18] MEDS: oxyCODONE/ACETAMINOPHEN 5 MG/325 MG TAB PO PRN (16:26)
[2017-04-18] MEDS: cloNIDine HCL 0.1 MG TAB PO PRN (16:26)
--- NOTE | 2017-04-18 23:50 | HHI.PR ---
Subjective Remarks Feeling ok Objective Vital Signs Date Time Temp Pulse Resp B/P (MAP) Pulse Ox O2 Delivery O2 Flow Rate FiO2 04/18/17 22:09 16 04/18/17 19:00 98.7 59 16 120/78 (92) 94 04/18/17 18:00 62 04/18/17 17:00 60 04/18/17 16:00 60 04/18/17 15:00 97.6 68 20 152/109 (123) 96 04/18/17 15:00 64 04/18/17 14:00 60 04/18/17 13:00 62 04/18/17 12:12 97.6 62 20 154/102 (119) 97 04/18/17 12:00 66 04/18/17 11:00 70 04/18/17 10:00 70 04/18/17 09:00 66 04/18/17 08:00 68 04/18/17 07:15 97.5 70 20 130/89 (103) 96 04/18/17 07:00 70 04/18/17 06:05 58 04/18/17 05:00 62 04/18/17 04:00 74 04/18/17 03:00 98.2 75 16 119/81 (94) 95 04/18/17 03:00 68 04/18/17 02:00 70 04/18/17 01:00 72 04/18/17 00:00 76 I/O 04/18/17 04/18/17 04/18/17 04/19/17 04/19/17 04/19/17 07:00 15:00 23:00 07:00 15:00 23:00 Intake Total 480 ml 840 ml Output Total 950 ml 1000 ml Balance -470 ml -160 ml Intake Oral 480 ml 840 ml Output Urine Total 950 ml 1000 ml # Bowel Movements 3 Result Diagram: 04/17/17 1140 04/17/17 1140 Imaging Alert, fully oriented, in bed Lungs: ventilated Heart: S1, S2 regular Abdomen: obese, no mass Ext: no edema Last Impressions Chest X-Ray 04/08/17 0807 Signed Impressions: Service Date/Time: Saturday, April 08, 2017 08:21 - CONCLUSION: No acute disease. Anisha Lopez MD Current Medications Medications (Trade) Dose Ordered Sig/Candy Route Start Time Stop Time Status Last Admin (NS Flush) 2 ml UNSCH PRN IVF 04/08/17 08:15 04/15/17 10:22 (NS Flush) 2 ml UNSCH PRN IV FLUSH 04/08/17 08:15 (Zofran Inj) 4 mg Q6H PRN IVP 04/08/17 10:15 04/18/17 00:55 (Tylenol) 650 mg Q6H PRN PO 04/08/17 10:15 (Narcan Inj) 0.4 mg UNSCH PRN IV 04/08/17 10:15 (Desi-Colace) 1 tab BID PO 04/08/17 21:00 04/18/17 21:03 (Milk Of Magnesia Liq) 30 ml Q12H PRN PO 04/08/17 10:15 04/17/17 15:52 (Senokot) 17.2 mg Q12H PRN PO 04/08/17 10:15 (Dulcolax Supp) 10 mg DAILY PRN RECTAL 04/08/17 10:15 (Lactulose Liq) 30 ml DAILY PRN PO 04/08/17 10:15 (Romazicon Inj) 0.2 mg Q1M PRN IV PUSH 04/08/17 10:15 (Ativan) 1 mg Q4H PRN PO 04/08/17 10:15 04/18/17 23:15 (Ativan Inj) 1 mg Q4H PRN IV PUSH 04/08/17 10:15 04/10/17 07:05 (Ativan) 2 mg Q2H PRN PO 04/08/17 10:15 04/09/17 04:17 (Ativan Inj) 2 mg Q2H PRN IV PUSH 04/08/17 10:15 04/10/17 21:00 (Ativan Inj) 2 mg Q1H PRN IV PUSH 04/08/17 10:15 (Ativan Inj) 2 mg Q15M PRN IV PUSH 04/08/17 10:15 (Pill Splitter) 1 ea UNSCH PRN OTHER 04/09/17 10:00 (Catapres) 0.1 mg Q6H PRN PO 04/10/17 10:00 04/18/17 16:26 (Librium) 25 mg DAILY PO 04/15/17 09:00 04/18/17 08:16 (Norvasc) 10 mg DAILY PO 04/16/17 09:00 04/18/17 08:17 (Prinivil) 40 mg DAILY PO 04/17/17 09:00 04/18/17 08:17 (Eliquis) 5 mg BID PO 04/16/17 21:00 04/18/17 21:02 (Percocet 5-325 Mg) 1 tab Q4H PRN PO 04/16/17 15:00 04/18/17 16:26 (Percocet 7.5-325 Mg) 1 tab Q4H PRN PO 04/16/17 15:00 04/18/17 21:03 (Lopressor) 50 mg TID PO 04/18/17 21:00 04/18/17 21:03 Assessment and Plan Problem List: (1) Atrial fibrillation ICD Codes: I48.91 - Unspecified atrial fibrillation Status: Chronic Plan: Some wide complex tachy recorded Patient was sleeping Normal VT Sleep apnea??? Metoprolol increases. If stable can be DH tomorrow (2) SOB (shortness of breath) ICD Codes: R06.02 - Shortness of breath Status: Acute Plan: Improving Saloni Mcmahon MD Apr 18, 2017 23:50
[2017-04-19] VITALS (9 sets, daily range): BP systolic 105–121; BP diastolic 51–56; PULSE 54–70; RESP 16; TEMP 98.3–98.7; O2SAT 94–97
[2017-04-19] MEDS: oxyCODONE/ACETAMINOPHEN 7.5 MG/325 MG TAB PO PRN ×2 (01:34→08:18)
--- NOTE | 2017-04-19 08:08 | PD.CARD.PN ---
Subjective Subjective Remarks Feels ok. No further VT overnight. Objective Medications Current Medications Medications (Trade) Dose Ordered Sig/Candy Route Start Time Stop Time Status Last Admin (NS Flush) 2 ml UNSCH PRN IVF 04/08/17 08:15 04/15/17 10:22 (NS Flush) 2 ml UNSCH PRN IV FLUSH 04/08/17 08:15 (Zofran Inj) 4 mg Q6H PRN IVP 04/08/17 10:15 04/18/17 00:55 (Tylenol) 650 mg Q6H PRN PO 04/08/17 10:15 (Narcan Inj) 0.4 mg UNSCH PRN IV 04/08/17 10:15 (Desi-Colace) 1 tab BID PO 04/08/17 21:00 04/18/17 21:03 (Milk Of Magnesia Liq) 30 ml Q12H PRN PO 04/08/17 10:15 04/17/17 15:52 (Senokot) 17.2 mg Q12H PRN PO 04/08/17 10:15 (Dulcolax Supp) 10 mg DAILY PRN RECTAL 04/08/17 10:15 (Lactulose Liq) 30 ml DAILY PRN PO 04/08/17 10:15 (Romazicon Inj) 0.2 mg Q1M PRN IV PUSH 04/08/17 10:15 (Ativan) 1 mg Q4H PRN PO 04/08/17 10:15 04/18/17 23:15 (Ativan Inj) 1 mg Q4H PRN IV PUSH 04/08/17 10:15 04/10/17 07:05 (Ativan) 2 mg Q2H PRN PO 04/08/17 10:15 04/09/17 04:17 (Ativan Inj) 2 mg Q2H PRN IV PUSH 04/08/17 10:15 04/10/17 21:00 (Ativan Inj) 2 mg Q1H PRN IV PUSH 04/08/17 10:15 (Ativan Inj) 2 mg Q15M PRN IV PUSH 04/08/17 10:15 (Pill Splitter) 1 ea UNSCH PRN OTHER 04/09/17 10:00 (Catapres) 0.1 mg Q6H PRN PO 04/10/17 10:00 04/18/17 16:26 (Librium) 25 mg DAILY PO 04/15/17 09:00 04/18/17 08:16 (Norvasc) 10 mg DAILY PO 04/16/17 09:00 04/18/17 08:17 (Prinivil) 40 mg DAILY PO 04/17/17 09:00 04/18/17 08:17 (Eliquis) 5 mg BID PO 04/16/17 21:00 04/18/17 21:02 (Percocet 5-325 Mg) 1 tab Q4H PRN PO 04/16/17 15:00 04/18/17 16:26 (Percocet 7.5-325 Mg) 1 tab Q4H PRN PO 04/16/17 15:00 04/19/17 01:34 (Lopressor) 50 mg TID PO 04/18/17 21:00 04/18/17 21:03 Vital Signs / I&O Vital Signs Date Time Temp Pulse Resp B/P (MAP) Pulse Ox O2 Delivery O2 Flow Rate FiO2 04/19/17 07:00 54 04/19/17 06:00 59 04/19/17 05:00 68 04/19/17 04:00 66 04/19/17 03:01 18 04/19/17 03:00 98.7 69 16 105/51 (69) 94 04/19/17 03:00 70 04/19/17 02:00 59 04/19/17 01:00 58 04/19/17 00:00 59 04/18/17 23:00 98.9 63 20 129/86 (100) 97 04/18/17 23:00 60 04/18/17 22:00 58 04/18/17 21:00 56 04/18/17 20:00 56 04/18/17 19:00 60 04/18/17 19:00 98.7 59 16 120/78 (92) 94 04/18/17 18:00 62 04/18/17 17:00 60 04/18/17 16:00 60 04/18/17 15:00 97.6 68 20 152/109 (123) 96 04/18/17 15:00 64 04/18/17 14:00 60 04/18/17 13:00 62 04/18/17 12:12 97.6 62 20 154/102 (119) 97 04/18/17 12:00 66 04/18/17 11:00 70 04/18/17 10:00 70 04/18/17 09:00 66 I/O 04/18/17 04/18/17 04/18/17 04/19/17 04/19/17 04/19/17 07:00 15:00 23:00 07:00 15:00 23:00 Intake Total 480 ml 840 ml 720 ml Output Total 950 ml 1000 ml 1100 ml Balance -470 ml -160 ml -380 ml Intake Oral 480 ml 840 ml 720 ml Output Urine Total 950 ml 1000 ml 1100 ml # Bowel Movements 3 1 Physical Exam GENERAL: Well-nourished, well-developed patient. SKIN: Warm and dry. HEAD: Normocephalic. EYES: No scleral icterus. No injection or drainage. NECK: Supple, trachea midline. No JVD or lymphadenopathy. CARDIOVASCULAR: Regular rate and rhythm without murmurs, gallops, or rubs. RESPIRATORY: Breath sounds equal bilaterally. No accessory muscle use. GASTROINTESTINAL: Abdomen soft, non-tender, nondistended. EXTREMITIES: No cyanosis, or edema. NEUROLOGICAL: Awake, alert, and oriented x 3. Non-focal. Imaging Last Impressions Chest X-Ray 04/08/17 0807 Signed Impressions: Service Date/Time: Saturday, April 08, 2017 08:21 - CONCLUSION: No acute disease. Anisha Lopez MD Assessment and Plan Problem List: (1) A-fib ICD Codes: I48.91 - Unspecified atrial fibrillation Status: Chronic Plan: Stable, NSR, on eliquis. Plan for ablation per Dr. Mcmahon. F/U with him in 3 weeks after discharge. (2) HTN (hypertension) ICD Codes: I10 - Essential (primary) hypertension Status: Chronic Plan: Well controlled on current meds. (3) Ventricular tachycardia ICD Codes: I47.2 - Ventricular tachycardia Status: Acute Plan: No recurrence overnight. Stable on metoprolol. Can be d/c'd from EP standpoint when cleared by managing team. Assessment and Plan D/W pt., RN, Dr. Mcmahon. Problem Qualifiers (1) A-fib: Qualified Codes: I48.0 - Paroxysmal atrial fibrillation Imelda Robbins Apr 19, 2017 08:07
[2017-04-19] MEDS: LISINOPRIL 20 MG TAB PO SCH (08:17)
[2017-04-19] MEDS: chlordiazePOXIDE 25 MG CAP PO SCH (08:17)
[2017-04-19] MEDS: METOPROLOL TARTRATE 50 MG TAB PO SCH (08:17)
[2017-04-19] MEDS: APIXABAN 5 MG TABLET PO SCH (08:19)
[2017-04-19] MEDS: LORazepam 1 MG TAB PO PRN (08:19)
[2017-04-19] MEDS: SODIUM CHLORIDE 0.9% FLUSH 10 ML FLUSH IVF PRN (08:21)
[2017-04-19] MEDS: DOCUSATE SODIUM 50 MG/SENNA 8.6 MG TAB PO SCH (08:24)
[2017-04-19] MEDS ORDERED: METO-309 PO (08:34)
--- NOTE | 2017-04-19 08:49 | HHI.DS ---
Discharge Summary Admission Date Apr 08, 2017 at 09:50 Discharge Date: Apr 19, 2017 Admitting Diagnosis atrial fibrillation with RVR, new left bundle-branch block, alcohol (1) Atrial fibrillation with RVR ICD Code: I48.91 - Unspecified atrial fibrillation Status: Resolved (2) Alcohol dependence ICD Code: F10.20 - Alcohol dependence, uncomplicated Status: Chronic (3) HTN (hypertension) ICD Code: I10 - Essential (primary) hypertension Status: Chronic (4) Alcohol withdrawal ICD Code: F10.239 - Alcohol dependence with withdrawal, unspecified Status: Acute Procedures None Brief History - From Admission The patient is a 61-year-old male who presented to the emergency department for evaluation of chest pain that started suddenly this morning while he was walking. He states that he had walked about a mile this morning, and then developed sharp left-sided chest pain that did not radiate. He described the pain as 9/10. It improved after receiving medications, but is now currently 8/ 10. Reports acute onset of diaphoresis and dyspnea as well. EMS noted that the patient was in SVT and he was given adenosine IV prior to arrival in the ER. This did not change his symptoms and his heart rate remained elevated. He was given IV diltiazem ER and placed on diltiazem drip. The patient is still having chest pain. CBC/BMP: 04/17/17 1140 04/17/17 1140 Significant Findings Laboratory Tests Test 04/17/17 11:40 04/17/17 18:39 04/18/17 02:05 Red Blood Count 4.49 MIL/MM3 (4.50-5.90) Troponin I LESS THAN 0.02 NG/ML LESS THAN 0.02 NG/ML LESS THAN 0.02 NG/ML PE at Discharge GENERAL: This is a well-nourished, well-developed patient, in no apparent distress. SKIN: Warm and dry. HEENT: Normocephalic. Pupils equal round and reactive. Nose without bleeding. Airway patent. NECK: Trachea midline. No JVD. Supple. CARDIOVASCULAR: Regular rate and rhythm without murmurs, gallops, or rubs. RESPIRATORY: Clear to auscultation. Breath sounds equal bilaterally. No wheezes , rales, or rhonchi. GASTROINTESTINAL: Abdomen soft, non-tender, nondistended. Bowel Sounds normoactive x4. MUSCULOSKELETAL: Extremities without clubbing, cyanosis, or edema. Right hand arm tremors > Left. Left lateral chest crepitus noted. NEUROLOGICAL: Awake and alert. Oriented to place, person. No focal neuro deficit. Moves all extremities. Normal speech. Pt update on day of discharge Follow-up visit chest pain, alcohol withdrawal, AFIB RVR, episode of V. tach arrhythmias. Patient seen and examined today lying in bed. Reports he is doing well. Complaints of pain left lateral side secondary to rib fractures. Requesting for pain medications. Discuss with patient plan to discharge home today. Denies SOB/ dyspnea. Denies palpitations, headaches, dizziness. Denies fevers, chills, n/v/d. Denies dysuria. As per nursing, patient has pain seeking behavior. Head are smear run last night 6 beats but reconverted back to sinus rhythm. During the time of breath dyspnea patient was asymptomatic. No other acute issues. Hospital Course The patient is a 61-year-old male who presented to the emergency department for evaluation of chest pain. He was initially noted to have Afib with RVR. Seen and followed by Dr. Mcmahon in the inpatient. Patient was on IV cardizem and IV amiodarone for AFIB. Transitioned to cardizem PO. It has resolved now on SR. His medication was changed per cardiology he is now on metoprolol for rate control. He was hypertensive and was placed on lisinopril 40mg, metoprolol, norvasc. Patient has agreed for anticoagulation, eliquis was started. Patient had episodes of arrhythmias, wide complex tachycardia. He was able to convert on his own. Troponins were negative. Labs were within normal. He was reevaluated by Dr. Mcmahon, believed possibly to be sleep apnea related. He increased the metoprolol 50 mg 3 times a day. No acute issues overnight. Patient has been seeking behavior. He had 2 left ribs broken. He will be discharged home with Percocet 12/13/24 every 6 hours when necessary x5 days only. He also had EtOH abuse and was managed with Librium and Ativan taper dose. Patient was counseled. He will then follow up with Dr. Mcmahon as outpatient and plan for ablation in 3 weeks. Chest pain has improved, this might be related to rib fracture pains. Patient has met maximal benefits of hospitalization. Clinically stable for discharge. Pt Condition on Discharge: Good Discharge Disposition: Discharge Home Discharge Time: > 30 minutes Discharge Instructions DIET: Follow Instructions for: Heart Healthy Diet Activities you can perform: Regular-No Restrictions Activities to Avoid: Driving for 24 hrs Other Activity Instructions: Bleeding risk Follow up Referrals: Cardiology - 2 Weeks with Saloni Mcmahon MD PCP Follow-up - 1 Week New Medications: Amlodipine (Norvasc) 10 Mg Tab 10 MG PO DAILY for Blood Pressure Management, #30 TAB Apixaban (Eliquis) 5 Mg Tab 5 MG PO BID for Atrial Fibrilation for 30 Days, #60 TAB Lisinopril (Lisinopril) 20 Mg Tab 40 MG PO DAILY for Blood Pressure Management, #30 TAB Metoprolol Tartrate (Lopressor) 50 Mg Tab 50 MG PO TID for Blood Pressure Management, #90 TAB Discontinued Medications: Amlodipine (Amlodipine) 2.5 Mg Tab 2.5 MG PO DAILY for Blood Pressure Management, #30 TAB [address] (Aspirin EC) 81 Mg Tabdr 81 MG PO DAILY for atrial fibrillation, #30 TAB 0 Refills Lisinopril (Lisinopril) 10 Mg Tab 10 MG PO DAILY for hypertension, #30 TAB 0 Refills Clark Carballo Apr 19, 2017 08:49 Adali Oliveros MD May 07, 2017 15:33
[2017-04-19] MEDS ORDERED: OXYC1TAB35 PO (08:52)
[2017-04-19] MEDS ORDERED: LORA-474 PO (08:52)
== END 2017-04-19 10:20 | disposition home or self-care (01) | DRG 309 ==
LOC: NEPE 08:00 → NEDA 09:50 → HCIS 11:31
PROVIDERS: ADMIT Family Medicine; ATTEND Family Medicine
DX: I48.0 Paroxysmal atrial fibrillation (principal); F10.230 Alcohol dependence with withdrawal, uncomplicated; I47.2 Ventricular tachycardia; I50.9 Heart failure, unspecified; I11.0 Hypertensive heart disease with heart failure; F32.9 Major depressive disorder, single episode, unspecified; E86.0 Dehydration; F41.9 Anxiety disorder, unspecified; I44.7 Left bundle-branch block, unspecified; J44.9 Chronic obstructive pulmonary disease, unspecified; M19.90 Unspecified osteoarthritis, unspecified site; I25.10 Atherosclerotic heart disease of native coronary artery without angina pectoris; R07.89 Other chest pain; G89.29 Other chronic pain; K59.00 Constipation, unspecified; Z91.14 Patient's other noncompliance with medication regimen; Z86.718 Personal history of other venous thrombosis and embolism; Z79.82 Long term (current) use of aspirin
CPT/HCPCS: 71010; 76937; 80048; 80053; 82550; 83735; 84484; 85025; 85027; 85610; 85730; 93005; 96365; 96375; 96376; J0282; J1650; J2060; J2270; J2405; J3480; J7030; J7060

== ENCOUNTER 2017-04-29 18:16 | Observation (INO) | payer MEDICAID ==
[~2017-04-29] VITALS: Ht 188 cm; Wt 93.5 kg
[~2017-04-29 18:16] MED LIST changes: +AMLO10 PO; +APIX5TAB PO; -ASPI81TA11 PO; -GNP100TA3 PO; -HYDR-3583 PO; -LIDO5DIS5 T-DERMAL; +LISI-515 PO; -LISI10TA3 PO; +LORA-474 PO; +METO-309 PO; +OXYC1TAB35 PO
[2017-04-29 18:49] VITALS: BP 163/113; PULSE 95; RESP 20; TEMP 99; O2SAT 98
[2017-04-29] MEDS ORDERED: THIAMINE INJ 100 MG in SODIUM CHLORIDE 0.9% INJ 100 ML IV ONE (19:30)
[2017-04-29] MEDS ORDERED: SODIUM CHLORID 0.9% 500 ML INJ 500 ML IV ONE (19:30)
[2017-04-29] MEDS ORDERED: SODIUM CHLORIDE 0.9% FLUSH 10 ML FLUSH IVF PRN (19:30)
[2017-04-29] MEDS ORDERED: FAMOTIDINE INJ 20 MG in SODIUM CHLORIDE 0.9% INJ 98 ML IV ONE (19:30)
[2017-04-29] MEDS ORDERED: ASPIRIN 81 MG CHEW TAB PO ONE (19:30)
--- NOTE | 2017-04-29 19:48 | PD ---
HPI Chief Complaint: Chest Pain Time Seen by Provider: 19:24 Travel History International Travel<30 days: No Contact w/Intl Traveler<30days: No Traveled to known affect area: No History of Present Illness HPI The patient is a 61 year old male who presents to the [facility] emergency department with a history of reportedly walking prior to arrival when he had sudden onset of syncope. He doesn't recall feeling lightheaded prior to this episode. He reports that he woke up on a bench with ambulance services surrounding him. He denies the event being witnessed. He denies any loss of bowel or bladder control. He denies any tongue biting. Since the episode, 30 minutes ago, he began to have a thumping chest pain that radiates up into his neck. He reports that the pain in his chest is along the left side of his chest. The patient additionally reports having rib cage pain from an injury 3- 4 weeks ago in which she broke 3 ribs. The patient reports that he has had a syncopal event in the past a few months ago related to atrial fibrillation. He reports that he has paroxysmal atrial fibrillation. He reports that he has not taken any aspirin in the last 2 days as he ran out of the medicine. He reports that he has taken his blood pressure medicine. His primary care physician is Dr. Flores. The patient additionally reports having a past medical history of a left bundle branch block, congestive heart failure, COPD, and alcohol abuse. He reports that he last drink alcohol prior to arrival. He reports that he normally drinks a pint and a half of vodka per day. The patient reports that he last had a stress test done earlier this year at this facility. He cannot recall when he last had a cardiac catheterization. On review of systems, the patient denies having any recent known fevers, worsening cough or congestion, shortness of breath, abdominal pain, vomiting, diarrhea, urinary symptoms, numbness or tingling to his extremities, weakness of his extremities, facial droop, difficulty with word finding ability, or vertigo. PFSH Past Medical History Narrative Medical The patient's past medical history is significant for CHF, afib, COPD, chest pain, alcohol abuse, hypertension, chronic pain related to a history of multiple orthopedic injuries, anxiety and depression,. According to the electronic medical record, the patient additionally has a history of DVT, seizure related to alcohol withdrawal in the past. Hx Anticoagulant Therapy: Yes (DVT-ASA) Arthritis: Yes (bursitis tendonitis) Asthma: No Atrial Fibrillation: Yes Autoimmune Disease: No Blood Disorders: No Anxiety: Yes Depression: Yes Heart Rhythm Problems: Yes (LBBB) Cancer: No Cardiac Catheterization: No Cardiovascular Problems: Yes (A FIB RVR, CHF, HTN left bundle branch) High Cholesterol: No Chemotherapy: No Chest Pain: Yes Congestive Heart Failure: Yes COPD: Yes Cerebrovascular Accident: No Diabetes: No Diminished Hearing: No Endocrine: No Gastrointestinal Disorders: No Genitourinary: Yes (not urinating "a lot") Headaches: No Hypertension: Yes Immune Disorder: No Implanted Vascular Access Dvce: No Kidney Stones: Yes Musculoskeletal: Yes (many broken bones in the past) Neurologic: Yes (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) Psychiatric: Yes Reproductive: No Respiratory: Yes (COPD) Immunizations Current: Yes Migraines: No Radiation Therapy: No Seizures: Yes Shingles: Yes Sleep Apnea: No Ulcer: No Tetanus Vaccination: < 5 Years Influenza Vaccination: No Past Surgical History Narrative Surgical The patient's past surgical history is significant for hernia repair, tonsillectomy. Abdominal Surgery: Yes (HERNIA REPAIR) Cardiac Surgery: No Coronary Artery Bypass Graft: No Ear Surgery: No Endocrine Surgery: No Eye Surgery: No Genitourinary Surgery: No Gynecologic Surgery: No Neurologic Surgery: No Oral Surgery: No Thoracic Surgery: No Tonsillectomy: Yes Other Surgery: Yes Family History Family Myocardial Infarction: Yes (maternal) Social History Alcohol Use: Yes (1-2 PINTS DAILY VODKA) Tobacco Use: Yes (occasional cigar.) Substance Use: Yes (painkillers in the past) Allergies-Medications (Allergen,Severity, Reaction): Coded Allergies: Sulfa (Sulfonamide Antibiotics) (Unverified Allergy, Severe, hives, ) cephalexin (Unverified Allergy, Severe, hives, 04/29/17) penicillin G (Unverified Allergy, Severe, hives, 04/29/17) nitroglycerin (Unverified Allergy, Mild, 04/29/17) vomit Reported Meds & Prescriptions Reported Meds & Active Scripts Active Lisinopril 20 Mg Tab 40 Mg PO DAILY Norvasc (Amlodipine Besylate) 10 Mg Tab 10 Mg PO DAILY Review of Systems Except as stated in HPI: all other systems reviewed are Neg General / Constitutional: No: Fever Eyes: No: Visual changes HENT: Positive: Neck Pain, No: Headaches, Neck Stiffness Cardiovascular: Positive: Chest Pain or Discomfort, Syncope Respiratory: No: Cough, Shortness of Breath Gastrointestinal: No: Nausea, Vomiting, Diarrhea, Abdominal Pain, Changes in Bowel Habits, Indigestion, Loss of Appetite Genitourinary: No: Dysuria Musculoskeletal: No: Pain Skin: No Rash Neurologic: No: Weakness Psychiatric: No: Depression Endocrine: No: Polydipsia Hematologic/Lymphatic: No: Easy Bruising Physical Exam Narrative General: The patient is a well-developed well-nourished male in no acute distress. Head and Neck exam: Head is normocephalic atraumatic. Eyes: EOMI, pupils are equal round and reactive to light. Nose: Midline septum with pink mucous membranes Mouth: Dentition unremarkable. Moist mucus membranes. Posterior oropharynx is not erythematous. No tonsillar hypertrophy. Uvula midline. Airway patent. Neck: No palpable lymphadenopathy. No nuchal rigidity. No thyromegaly. Cardiovascular: Regular sounding tachycardia in the low 100s without murmurs, gallops, or rubs. No pulse deficit to the extremities and simultaneous auscultation and palpation of his radial artery. Lungs: Clear to auscultation bilaterally. No wheezes, rhonchi, or rales. Abdomen: Soft, without tenderness to palpation in all 4 quadrants of the abdomen. No guarding, rebound, or rigidity. Normal bowel sounds are audible. No tenderness on palpation of McBurney's point. Extremities: No clubbing, cyanosis, or edema. 2+ pulses in all 4 extremities. No calf tenderness on palpation. Back: No costovertebral angle tenderness to palpation. Neurologic Exam: Cranial nerves 2-12 were intact on exam. Strength is 5/5 in all 4 extremities. No sensory deficits noted. No dysdiadochokinesis. Good finger to nose and Heel to vences bilaterally. Skin Exam: No rash noted. Intact skin that is warm and dry. Data Data Last Documented VS Vital Signs Date Time Temp Pulse Resp B/P (MAP) Pulse Ox O2 Delivery O2 Flow Rate FiO2 04/29/17 21:32 111 233/118 (156) 100 Nasal Cannula 2.00 213/118 (149) 04/29/17 18:49 99.0 20 Orders Orders Electrocardiogram (04/29/17 ) B-Type Natriuretic Peptide (04/29/17 19:24) Ckmb (Isoenzyme) Profile (04/29/17 19:24) Complete Blood Count With Diff (04/29/17 19:24) Comprehensive Metabolic Panel (04/29/17 19:24) Magnesium (Mg) (04/29/17 19:24) Prothrombin Time / Inr (Pt) (04/29/17 19:24) Act Partial Throm Time (Ptt) (04/29/17 19:24) Troponin I (04/29/17 19:24) Lipase (04/29/17 19:24) Chest, Single Ap (04/29/17 19:24) Ecg Monitoring (04/29/17 19:24) Bilateral Bp Monitoring (04/29/17 19:24) Iv Access Insert/Monitor (04/29/17 19:24) Oximetry (04/29/17 19:24) Oxygen Administration (04/29/17 19:24) Aspirin Chew (Aspirin Chew) (04/29/17 19:30) Sodium Chloride 0.9% Flush (Ns Flush) (04/29/17 19:30) Sodium Chlorid 0.9% 500 Ml Inj (Ns 500 M (04/29/17 19:30) Thiamine Inj (Thiamine Inj) (04/29/17 19:30) Famotidine Inj (Pepcid Inj) (04/29/17 19:30) Ct Brain W/O Iv Contrast(Rout) (04/29/17 19:50) Ct Cerv Spine W/O Contrast (04/29/17 19:50) Aspirin Chew (Aspirin Chew) (04/29/17 20:15) CKMB (04/29/17 18:45) CKMB% (04/29/17 18:45) Potassium Chloride (Kcl) (04/29/17 20:45) Orthostatic Vital Signs (04/29/17 20:32) Morphine Inj (Morphine Inj) (04/29/17 21:45) Ondansetron Inj (Zofran Inj) (04/29/17 21:45) Labetalol Inj (Trandate Inj) (04/29/17 21:45) Admit Order (Ed Use Only) (04/29/17 21:49) Labs Laboratory Tests Test 04/29/17 18:45 White Blood Count 6.4 TH/MM3 Red Blood Count 4.30 MIL/MM3 Hemoglobin 14.4 GM/DL Hematocrit 42.1 % Mean Corpuscular Volume 98.0 FL Mean Corpuscular Hemoglobin 33.6 PG Mean Corpuscular Hemoglobin Concent 34.3 % Red Cell Distribution Width 13.9 % Platelet Count 226 TH/MM3 Mean Platelet Volume 6.6 FL Neutrophils (%) (Auto) 55.2 % Lymphocytes (%) (Auto) 31.7 % Monocytes (%) (Auto) 10.3 % Eosinophils (%) (Auto) 1.9 % Basophils (%) (Auto) 0.9 % Neutrophils # (Auto) 3.5 TH/MM3 Lymphocytes # (Auto) 2.0 TH/MM3 Monocytes # (Auto) 0.7 TH/MM3 Eosinophils # (Auto) 0.1 TH/MM3 Basophils # (Auto) 0.1 TH/MM3 CBC Comment DIFF FINAL Differential Comment Prothrombin Time 11.5 SEC Prothromb Time International Ratio 1.0 RATIO Activated Partial Thromboplast Time 25.7 SEC Blood Urea Nitrogen 13 MG/DL Creatinine 0.79 MG/DL Random Glucose 89 MG/DL Total Protein 6.3 GM/DL Albumin 3.3 GM/DL Calcium Level 7.7 MG/DL Magnesium Level 1.8 MG/DL Alkaline Phosphatase 98 U/L Aspartate Amino Transf (AST/SGOT) 33 U/L Alanine Aminotransferase (ALT/SGPT) 24 U/L Total Bilirubin 0.2 MG/DL Sodium Level 143 MEQ/L Potassium Level 3.2 MEQ/L Chloride Level 110 MEQ/L Carbon Dioxide Level 23.2 MEQ/L Anion Gap 10 MEQ/L Estimat Glomerular Filtration Rate 99 ML/MIN Total Creatine Kinase 325 U/L Creatine Kinase MB 1.4 NG/ML Creatine Kinase MB % 0.4 % Troponin I LESS THAN 0.02 NG/ML B-Type Natriuretic Peptide 41 PG/ML Lipase 193 U/L [facility] Medical Decision Making Medical Screen Exam Complete: Yes Emergency Medical Condition: Yes Medical Record Reviewed: Yes Interpretation(s) Last Impressions Chest X-Ray 04/29/171923 Signed Impressions: Service Date/Time: Saturday, April 29, 2017 19:28 - CONCLUSION: Trace bibasilar atelectasis. Jung Cooley MD Differential Diagnosis Differential diagnosis for this syncopal event includes seizure activity, versus cardiac arrhythmia, versus acute coronary syndrome, versus vasovagal syncope, versus orthostasis Narrative Course During the course of the patients emergency department visit, the patients history, examination, and differential diagnosis were reviewed with the patient. The patient had IV access obtained and blood work sent for analysis. The patient was placed on a court recording monitor with oximetry and blood pressure monitoring. An ECG was done on arrival. The patient's ECG reveals a sinus tachycardia with occasional supraventricular premature complexes, heart rate of 103, left bundle branch block which the patient has a history of, QRS duration is 164 ms, QTC 472 ms. The patient was initially provided aspirin 324 mg by mouth 1, famotidine 20 mg IV, normal saline a 500 mL IV fluid bolus, thiamine 100 mg IV. The patient continued to have pain and was given morphine 4 mg IV, Zofran 4 mg IV. The patient's blood pressure increased and he was given labetalol 5 mg IV times one. The patients laboratory studies were reviewed and remarkable for a white count 6.4, hemoglobin 14.4, platelets 226 with 10.3 monocytes, CMP is remarkable for potassium of 3.2 which was supplemented orally, calcium 7.7, CPK 325, MB percent 0.4, troponin I less than 0.02, BNP 41, lipase 193, PT 11.5, PTT 25.7 Radiology studies were reviewed and remarkable for a CT scan of the brain shows no bleeding or other acute intracranial abnormality, CT scan of the C-spine shows degenerative changes, no other acute abnormality. A chest x-ray shows trace bibasilar atelectasis. The patient will be admitted to the hospital under the hospitalist service related to a syncopal event, now associated with chest pain. The patients results were discussed with the patient, including the plan of care. I explained that further testing and/ or monitoring is indicated based on the patients history, examination, and/ or laboratory findings. Therefore, I recommended admission for additional evaluation. The patient expressed understanding and was agreeable with this plan. The patient was admitted to the hospital in stable condition and sent to a bed under the care of the [facility] hospitalist service. Physician Communication Physician Communication The patient's case was discussed with Dr. Chawla who did agree to admit the patient for further evaluation and treatment at this time. Diagnosis Primary Impression: Syncope Qualified Codes: R55 - Syncope and collapse Additional Impressions: Chest pain, rule out acute myocardial infarction Alcohol abuse Admitting Information Admitting Physician Requests: Mary Haque MD Apr 29, 2017 19:48
[2017-04-29 19:51] LABS: AUTOMATED NEUTROPHIL # 3.5 TH/MM3 (1.8-7.7); BASOPHIL # 0.1 TH/MM3 (0-0.2); BASOPHIL % 0.9 % (0.0-2.0); EOSINOPHIL # 0.1 TH/MM3 (0-0.4); EOSINOPHIL % 1.9 % (0.0-4.0); HEMATOCRIT 42.1 % (39.0-51.0); HEMO FLAGS DIFF FINAL; LYMPH % 31.7 % (9.0-44.0); MEAN CORPUSCULAR HEMOGLOBIN 33.6 PG (27.0-34.0); MEAN CORPUSCULAR HGB CONC 34.3 % (32.0-36.0); MONO % 10.3 % (0.0-8.0); NEUT % 55.2 % (16.0-70.0); PLATELET COUNT 226 TH/MM3 (150-450); RED CELL DISTRIBUTION WIDTH 13.9 % (11.6-17.2); WHITE BLOOD COUNT 6.4 TH/MM3 (4.0-11.0)
[2017-04-29 20:04] LABS: ALT (GPT) 24 U/L (12-78); ANION GAP 10 MEQ/L (5-15); AST (GOT) 33 U/L (15-37); BICARBONATE 23.2 MEQ/L (21.0-32.0); BLOOD UREA NITROGEN 13 MG/DL (7-18); CHLORIDE 110 MEQ/L (98-107); GLOMERULAR FILTRATION RATE 99 ML/MIN (>89); MAGNESIUM 1.8 MG/DL (1.5-2.5); POTASSIUM 3.2 MEQ/L (3.5-5.1); SODIUM (NA) 143 MEQ/L (136-145)
[2017-04-29 20:08] LABS: ALKALINE PHOSPHATASE 98 U/L (45-117); CREATINE KINASE 325 U/L (39-308); TOTAL BILIRUBIN ADULT 0.2 MG/DL (0.2-1.0)
[2017-04-29 20:09] LABS: APTT (PATIENT) 25.7 SEC (24.3-30.1); PROTHROMBIN TIME - PATIENT 11.5 SEC (9.8-11.6)
--- NOTE | 2017-04-29 20:14 | RADRPT ---
EXAM DATE/TIME: 04/29/2017 19:28 [facility] COMPARISON: CHEST SINGLE AP, April 08, 2017, 8:21. INDICATIONS : Chest Pain MEDICAL HISTORY : Deep venous thrombosis. Chronic obstructive pulmonary disease.Cardiovascular disease. SURGICAL HISTORY : None. ENCOUNTER: Initial ACUITY: 1 day PAIN SCORE: 9/10 LOCATION: Bilateral chest FINDINGS: There is minimal bibasilar atelectasis. No pleural effusion. No pneumothorax. Heart size stable, within normal limits. CONCLUSION: Trace bibasilar atelectasis. Jung Cooley MD on April 29, 2017 at 20:13 Board Certified Radiologist. This report was verified electronically.
[2017-04-29] MEDS ORDERED: ASPIRIN 81 MG CHEW TAB CHEW ONE (20:15)
[2017-04-29 20:20] LABS: CKMB 1.4 NG/ML (0.5-3.6)
[2017-04-29 20:42] VITALS: O2SAT 99
[2017-04-29] MEDS ORDERED: POTASSIUM CHLORIDE 20 MEQ CONTROLLED RELEASE TAB PO ONE (20:45)
--- NOTE | 2017-04-29 21:04 | RADRPT ---
EXAM DATE/TIME: 04/29/2017 20:49 [facility] COMPARISON: CT BRAIN W/O CONTRAST, March 02, 2017, 0:14. INDICATIONS : Trauma, syncopal episode with fall today. RADIATION DOSE: 56.35 CTDIvol (mGy) MEDICAL HISTORY : Deep venous thrombosis. Congestive heart failure. Chronic obstructive pulmonary disease.Seizure. SURGICAL HISTORY : Tonsillectomy. ENCOUNTER: Initial ACUITY: 1 day PAIN SCALE: 4/10 LOCATION: cranial TECHNIQUE: Multiple contiguous axial images were obtained of the head. Using automated exposure control and adj ustment of the mA and/or kV according to patient size, radiation dose was kept as low as reasonably a chievable to obtain optimal diagnostic quality images. DICOM format image data is available electro nically for review and comparison. FINDINGS: CEREBRUM: The ventricles are normal for age. No evidence of midline shift, mass lesion, hemorrhage or acute in farction. No extra-axial fluid collections are seen. POSTERIOR FOSSA: The cerebellum and brainstem are intact. The 4th ventricle is midline. The cerebellopontine angle i s unremarkable. EXTRACRANIAL: The visualized portion of the orbits is intact. SKULL: The calvaria is intact. No evidence of skull fracture. CONCLUSION: No bleed or other acute intracranial abnormality. Jung Cooley MD on April 29, 2017 at 21:02 Board Certified Radiologist. This report was verified electronically.
[2017-04-29 21:32] VITALS: BP_SYST 213; BP_SYST 233; BP_DIAS 118; PULSE 111; O2SAT 100
--- NOTE | 2017-04-29 21:33 | RADRPT ---
EXAM DATE/TIME: 04/29/2017 20:51 [facility] COMPARISON: CT CERVICAL SPINE W/O CONTRAST, March 02, 2017, 0:15. INDICATIONS : Trauma, syncopal episode with fall today. RADIATION DOSE: 35.61 CTDIvol (mGy) MEDICAL HISTORY : Chronic obstructive pulmonary disease. Congestive heart failure. Deep venous thrombosis.Seizure. SURGICAL HISTORY : Tonsillectomy. ENCOUNTER: Initial ACUITY: 1 day PAIN SCALE: 2/10 LOCATION: neck TECHNIQUE: Volumetric scanning of the cervical spine was performed. Multiplanar reconstructions in the sagittal, coronal and oblique axial planes were performed. Using automated exposure control and adjustment o f the mA and/or kV according to patient size, radiation dose was kept as low as reasonably achievable to obtain optimal diagnostic quality images. DICOM format image data is available electronically f or review and comparison. FINDINGS: No subluxation of the cervical spine. No cortical break or trabecular disruption. Vertebral bodies kerr ve normal height. Moderate to severe disc space narrowing with broad posterior disc osteophyte complexes and bilateral uncovertebral and facet osteoarthritis again seen at C5/C6 and C6/C7. There is associated moderate bi lateral foraminal stenosis at both of these levels. Paravertebral soft tissues are within normal limits. CONCLUSION: Intact cervical spine. Degenerative changes as above, primarily C5/C6 and C6-C7. Jung Cooley MD on April 29, 2017 at 21:30 Board Certified Radiologist. This report was verified electronically.
--- NOTE | 2017-04-29 21:44 | EKG ---
Date Performed: 04/29/2017 Time Performed: 18:53:47 PTAGE: 61 years EKG: Sinus rhythm WITH PACs LEFT BUNDLE BRANCH BLOCK ABNORMAL ECG PREVIOUS TRACING : 04/17/2017 10.25 Compared to previous tracing, left bundle branch block zora arnold is now evident throughout the rhythm strip. DOCTOR: Huy Almaguer Interpretating Date/Time 04/29/2017 21:42:25
[2017-04-29] MEDS ORDERED: MORPHINE SULFATE 4 MG/ML INJ IV PUSH ONE (21:45)
[2017-04-29] MEDS ORDERED: ONDANSETRON HCL 4 MG/2 ML VIAL IV PUSH ONE (21:45)
[2017-04-29] MEDS ORDERED: LABETALOL HCL 100 MG/20 ML VIAL IV PUSH ONE (21:45)
--- NOTE | 2017-04-29 22:20 | HHI.HP ---
[facility] Service [facility] Primary Care Physician Jessica Flores MD Admission Diagnosis SYNCOPE, CP R/O MO Diagnoses: (1) Syncope Diagnosis: Principal (2) Chest pain Diagnosis: Principal (3) Rhabdomyolysis Diagnosis: Principal (4) Alcohol abuse Diagnosis: Principal (5) Hypokalemia Diagnosis: Principal Travel History International Travel<30 Days: No Contact w/Intl Traveler <30 Da: No Traveled to Known Affected Are: No History of Present Illness This is a 61-year-old male with a PMH of HTN, A-fib on ASA, COPD, Anxiety, Depression, LBBB and Alcohol Abuse was brought to the ER secondary to syncopal event. Patient has very little recall of events, states he was walking and had sudden syncopal event, denies lightheadedness/dizziness prior. C/o chest pain since syncope, no SOB or cough. Does admit to drinking daily, 1pint Vodka, last drink earlier today. On arrival, BP 233/118, HR 111, O2 sat 100% on 2L NC , Temp 99.0. CBC Senna-Gen remarkable. Chemistry essentially unremarkable except for K+ 3.2. CPK 325. Trop negative. EKG w/ no acute ischemia. Review of Systems Except as stated in HPI: all other systems reviewed are Neg ROS: 14 point review of systems otherwise negative. Past Family Social History Past Medical History PMH: HTN, A-fib on ASA, COPD, Anxiety, Depression, LBBB and Alcohol Abuse Past Surgical History PAST SURGICAL HISTORY: Hernia Repair, Tonsillectomy Allergies: Coded Allergies: Sulfa (Sulfonamide Antibiotics) (Unverified Allergy, Severe, hives, ) cephalexin (Unverified Allergy, Severe, hives, 04/29/17) penicillin G (Unverified Allergy, Severe, hives, 04/29/17) nitroglycerin (Unverified Allergy, Mild, 04/29/17) vomit Family History PAST FAMILY HISTORY: Reviewed. No h/o DM or CAD Social History PAST SOCIAL HISTORY: Drinks 1-2 pints Vodka. +cigar. h/o Opiate abuse. Physical Exam Vital Signs Vital Signs Date Time Temp Pulse Resp B/P (MAP) Pulse Ox O2 Delivery O2 Flow Rate FiO2 04/29/17 21:32 111 233/118 (156) 100 Nasal Cannula 2.00 213/118 (149) 04/29/17 20:45 Room Air 04/29/17 20:42 99 Room Air 04/29/17 20:42 Room Air 04/29/17 18:49 99.0 95 20 163/113 (130) 98 Physical Exam PE: GENERAL: Middle-aged male in no acute distress. HEENT: PERRLA, EOMI. No scleral icterus or conjunctival pallor. No lid lag or facial droop. CARDIOVASCULAR: Regular rate and rhythm. No obvious murmurs to auscultation. No chest tenderness to palpation. RESPIRATORY: No obvious rhonchi or wheezing. Clear to auscultation. Breath sounds equal bilaterally. GASTROINTESTINAL: Abdomen soft, non-tender, nondistended. BS normal. MUSCULOSKELETAL: Extremities without clubbing, cyanosis, or edema. No obvious deformities. NEUROLOGICAL: Awake, alert and oriented x4. No focal neurologic deficits. Moving both upper and lower extremities spontaneously. Laboratory Laboratory Tests Test 04/29/17 18:45 White Blood Count 6.4 Red Blood Count 4.30 Hemoglobin 14.4 Hematocrit 42.1 Mean Corpuscular Volume 98.0 Mean Corpuscular Hemoglobin 33.6 Mean Corpuscular Hemoglobin Concent 34.3 Red Cell Distribution Width 13.9 Platelet Count 226 Mean Platelet Volume 6.6 Neutrophils (%) (Auto) 55.2 Lymphocytes (%) (Auto) 31.7 Monocytes (%) (Auto) 10.3 Eosinophils (%) (Auto) 1.9 Basophils (%) (Auto) 0.9 Neutrophils # (Auto) 3.5 Lymphocytes # (Auto) 2.0 Monocytes # (Auto) 0.7 Eosinophils # (Auto) 0.1 Basophils # (Auto) 0.1 CBC Comment DIFF FINAL Differential Comment Prothrombin Time 11.5 Prothromb Time International Ratio 1.0 Activated Partial Thromboplast Time 25.7 Blood Urea Nitrogen 13 Creatinine 0.79 Random Glucose 89 Total Protein 6.3 Albumin 3.3 Calcium Level 7.7 Magnesium Level 1.8 Alkaline Phosphatase 98 Aspartate Amino Transf (AST/SGOT) 33 Alanine Aminotransferase (ALT/SGPT) 24 Total Bilirubin 0.2 Sodium Level 143 Potassium Level 3.2 Chloride Level 110 Carbon Dioxide Level 23.2 Anion Gap 10 Estimat Glomerular Filtration Rate 99 Total Creatine Kinase 325 Creatine Kinase MB 1.4 Creatine Kinase MB % 0.4 Troponin I LESS THAN 0.02 B-Type Natriuretic Peptide 41 Lipase 193 Result Diagram: 04/29/17184404/29/171844 Caprini VTE Risk Assessment Caprini VTE Risk Assessment: No/Low Risk (score <= 1) Caprini Risk Assessment Model Point Value = 1 Point Value = 2 Point Value = 3 Point Value = 5 Age 41-60 Minor surgery BMI > 25 kg/m2 Swollen legs Varicose veins or History of unexplained or recurrent spontaneous Oral contraceptives or hormone replacement Sepsis (< 1 month) Serious lung disease, including pneumonia (< 1 month) Abnormal pulmonary function Acute myocardial infarction Congestive heart failure (< 1 month) History of inflammatory bowel disease Medical patient at bed rest Age 61-74 Arthroscopic surgery Major open surgery (> 45 min) Laparoscopic surgery (> 45 min) Malignancy Confined to bed (> 72 hours) Immobilizing plaster cast Central venous access Age >= 75 History of VTE Family history of VTE Factor V Leiden Prothrombin [id number] Lupus anticoagulant Anticardiolipin antibodies Elevated serum homocysteine Heparin-induced thrombocytopenia Other congenital or acquired thrombophilia Stroke (< 1 month) Elective arthroplasty Hip, pelvis, or leg fracture Acute spinal cord injury (< 1 month) Prophylaxis Regimen Total Risk Factor Score Risk Level Prophylaxis Regimen 0-1 Low Early ambulation 2 Moderate Order ONE of the following: *Sequential Compression Device (SCD) *Heparin 5000 units SQ BID 3-4 Higher Order ONE of the following medications: *Heparin 5000 units SQ TID *Enoxaparin/Lovenox 40 mg SQ daily (WT < 150 kg, CrCl > 30 mL/min) *Enoxaparin/Lovenox 30 mg SQ daily (WT < 150 kg, CrCl > 10-29 mL/min) *Enoxaparin/Lovenox 30 mg SQ BID (WT < 150 kg, CrCl > 30 mL/min) AND/OR *Sequential Compression Device (SCD) 5 or more Highest Order ONE of the following medications: *Heparin 5000 units SQ TID (Preferred with Epidurals) *Enoxaparin/Lovenox 40 mg SQ daily (WT < 150 kg, CrCl > 30 mL/min) *Enoxaparin/Lovenox 30 mg SQ daily (WT < 150 kg, CrCl > 10-29 mL/min) *Enoxaparin/Lovenox 30 mg SQ BID (WT < 150 kg, CrCl > 30 mL/min) AND *Sequential Compression Device (SCD) Assessment and Plan Problem List: (1) Syncope ICD Code: R55 - Syncope and collapse Status: Acute (2) Chest pain ICD Code: R07.9 - Chest pain, unspecified Status: Resolved (3) Rhabdomyolysis ICD Code: M62.82 - Rhabdomyolysis (4) Hypokalemia ICD Code: E87.6 - Hypokalemia Status: Acute (5) Alcohol abuse ICD Code: F10.10 - Alcohol abuse, uncomplicated Status: Chronic Assessment and Plan A/P: 1. Syncope: acute syncopal event, denies dizziness/lightheadedness, possibly related to alcohol abuse/intoxication. CT Head with no acute findings. CT C- spine negative. Echo 03/01/17 w/ EF 65-70%. Will admit for Observation, telemetry. 2. Chest Pain: c/o chest pain following syncope, no SOB or hypoxia. Initial trop negative, check serial cardiac enzymes, NGT/Morphine, ASA, Statin, Metoprolol. 3. Rhabdomyolysis: Mild. CPK 325. IVF, check CPK for trend. 4. Hypokalemia: Mild. K+ 3.2, s/p replacement in ER, will recheck and replace as needed. 5. Alcohol Abuse: Drinks daily, 1-2 pints Vodka, high risk for withdrawal. Seizure Precautions, CIWA, MVT/Thiamine/Folate replacement. 6. DVT Prophylaxis: SCD/Teds. 7. Social work for d/c planning as needed. 8. Case discussed w/ ER physician at length. Problem Qualifiers (1) Syncope: Qualified Codes: R55 - Syncope and collapse Luz Maria Chawla MD Apr 29, 2017 22:20
[2017-04-29] MEDS ORDERED: LACTULOSE SYRUP 20 GM/30 ML CUP PO PRN (22:30)
[2017-04-29] MEDS ORDERED: MAGNESIUM HYDROXIDE SUSP 30 ML CUP PO PRN (22:30)
[2017-04-29] MEDS ORDERED: BISACODYL 10 MG SUPP RECTAL PRN (22:30)
[2017-04-29] MEDS ORDERED: HALOPERIDOL LACTATE 5 MG/ML AMP IM PRN (22:30)
[2017-04-29] MEDS ORDERED: ACETAMINOPHEN 325 MG TAB PO PRN (22:30)
[2017-04-29] MEDS ORDERED: SODIUM CHLORIDE 0.9% FLUSH 10 ML FLUSH IV FLUSH PRN (22:30)
[2017-04-29] MEDS ORDERED: ONDANSETRON HCL 4 MG/2 ML VIAL IVP PRN (22:30)
[2017-04-29] MEDS ORDERED: MORPHINE SULFATE 4 MG/ML INJ IV PUSH PRN (22:30)
[2017-04-29] MEDS ORDERED: LORazepam 2 MG/ML VIAL IV PUSH PRN ×4 (22:30)
[2017-04-29] MEDS ORDERED: FLUMAZENIL 0.5 MG/5 ML VIAL IV PUSH PRN (22:30)
[2017-04-29] MEDS ORDERED: SENNOSIDES 8.6 MG TAB PO PRN (22:30)
[2017-04-29 22:56] VITALS: BP 182/113; PULSE 102
[2017-04-29] MEDS: SODIUM CHLOR 0.9% 1000 ML INJ 1,000 ML IV SCH (23:42)
[2017-04-29 23:44] VITALS: BP 191/108
[2017-04-30] VITALS (24 sets, daily range): BP systolic 146–189; BP diastolic 87–155; PULSE 63–107; RESP 16–20; TEMP 97.6–99.1; O2SAT 97–100
[2017-04-30] MEDS ORDERED: cloNIDine HCL 0.2 MG TAB PO ONE (00:30)
[2017-04-30] MEDS ORDERED: hydrALAZINE HCL 20 MG/ML VIAL IV PUSH ONE (00:30)
[2017-04-30] MEDS: LORazepam 1 MG TAB PO PRN ×2 (04:50→10:14)
[2017-04-30 06:47] LABS: AUTOMATED NEUTROPHIL # 2.7 TH/MM3 (1.8-7.7); BASOPHIL % 0.7 % (0.0-2.0); EOSINOPHIL # 0.2 TH/MM3 (0-0.4); EOSINOPHIL % 3.6 % (0.0-4.0); HEMATOCRIT 39.1 % (39.0-51.0); HEMO FLAGS DIFF FINAL; LYMPH % 32.7 % (9.0-44.0); LYMPHOCYTE # 1.7 TH/MM3 (1.0-4.8); MEAN CELL VOLUME 97.5 FL (80.0-100.0); MEAN CORPUSCULAR HEMOGLOBIN 33.2 PG (27.0-34.0); MEAN CORPUSCULAR HGB CONC 34.1 % (32.0-36.0); MONO % 11.6 % (0.0-8.0); NEUT % 51.4 % (16.0-70.0); PLATELET COUNT 181 TH/MM3 (150-450); RED BLOOD COUNT 4.01 MIL/MM3 (4.50-5.90); RED CELL DISTRIBUTION WIDTH 14.1 % (11.6-17.2); WHITE BLOOD COUNT 5.2 TH/MM3 (4.0-11.0)
[2017-04-30 07:03] LABS: ANION GAP 9 MEQ/L (5-15); BICARBONATE 24.1 MEQ/L (21.0-32.0); BLOOD UREA NITROGEN 11 MG/DL (7-18); CHLORIDE 108 MEQ/L (98-107); GLOMERULAR FILTRATION RATE 102 ML/MIN (>89); POTASSIUM 3.2 MEQ/L (3.5-5.1); SODIUM (NA) 141 MEQ/L (136-145)
[2017-04-30 07:04] LABS: ALT (GPT) 21 U/L (12-78); AST (GOT) 25 U/L (15-37)
[2017-04-30 07:07] LABS: ALKALINE PHOSPHATASE 81 U/L (45-117); CREATINE KINASE 222 U/L (39-308); TOTAL BILIRUBIN ADULT 0.5 MG/DL (0.2-1.0)
[2017-04-30] MEDS: FOLIC ACID 1 MG TAB PO SCH (07:44)
[2017-04-30] MEDS: THIAMINE HCL 100 MG TAB PO SCH (07:44)
[2017-04-30] MEDS: PRAVASTATIN SOD 40 MG TAB PO SCH (07:44)
[2017-04-30] MEDS: MULTIVITAMINS/MINERALS THERAPEUTIC TAB PO SCH (07:44)
[2017-04-30] MEDS: ASPIRIN EC 81 MG TABEC PO SCH (07:44)
[2017-04-30] MEDS: DOCUSATE SODIUM 50 MG/SENNA 8.6 MG TAB PO SCH ×2 (07:44→21:02)
[2017-04-30] MEDS: SODIUM CHLORIDE 0.9% FLUSH 10 ML FLUSH IV FLUSH SCH ×2 (07:45→21:03)
[2017-04-30] MEDS ORDERED: METOPROLOL TARTRATE 25 MG TAB PO SCH (09:00)
[2017-04-30] MEDS: LISINOPRIL 20 MG TAB PO SCH ×2 (10:07→21:02)
[2017-04-30] MEDS: METOPROLOL TARTRATE 25 MG TAB PO SCH ×3 (10:07→17:02)
[2017-04-30] MEDS: SODIUM CHLOR 0.9% 1000 ML INJ 1,000 ML IV SCH (10:08)
--- NOTE | 2017-04-30 10:18 | HHI.PR ---
Subjective Remarks Patient complained of intermittent chest pain. No SOB. He states he is willing to go to inpatient alcohol rehab. Blood pressure uncontrolled. He was not compliant with his medications. Objective Vitals Vital Signs Date Time Temp Pulse Resp B/P (MAP) Pulse Ox O2 Delivery O2 Flow Rate FiO2 04/30/17 09:00 92 04/30/17 08:00 102 04/30/17 07:00 94 04/30/17 07:00 98.6 107 20 182/125 (144) 98 04/30/17 06:00 98 04/30/17 05:00 92 04/30/17 04:21 99.1 97 20 155/97 (116) 100 04/30/17 04:00 94 04/30/17 03:21 164/87 (112) 04/30/17 01:44 179/91 (120) 04/30/17 00:20 182/103 (129) 04/29/17 23:44 191/108 (135) 04/29/17 22:56 102 182/113 (136) 04/29/17 21:32 111 233/118 (156) 100 Nasal Cannula 2.00 213/118 (149) 04/29/17 20:45 Room Air 04/29/17 20:42 99 Room Air 04/29/17 20:42 Room Air 04/29/17 18:49 99.0 95 20 163/113 (130) 98 I/O 04/29/17 04/29/17 04/29/17 04/30/17 04/30/17 04/30/17 07:00 15:00 23:00 07:00 15:00 23:00 Intake Total 700 ml 580 ml Output Total 300 ml Balance 700 ml 280 ml Intake Oral 480 ml IV Total 700 ml 100 ml Output Urine Total 300 ml # Bowel Movements 0 Result Diagram: 04/30/1751704/30/17517 Imaging Last Impressions Head CT 04/29/171949 Signed Impressions: Service Date/Time: Saturday, April 29, 2017 20:49 - CONCLUSION: No bleed or other acute intracranial abnormality. Jung Cooley MD Cervical Spine CT 04/29/171949 Signed Impressions: Service Date/Time: Saturday, April 29, 2017 20:51 - CONCLUSION: Intact cervical spine. Degenerative changes as above, primarily C5/C6 and C6-C7. Jung Cooley MD Chest X-Ray 04/29/171923 Signed Impressions: Service Date/Time: Saturday, April 29, 2017 19:28 - CONCLUSION: Trace bibasilar atelectasis. Jung Cooley MD Objective Remarks GENERAL: This is a well-nourished, well-developed patient, in no apparent distress. CARDIOVASCULAR: Normal rate and regular rhythm without murmurs, gallops, or rubs. RESPIRATORY: Good respiratory efforts. Breath sounds equal and clear to auscultation bilaterally. GASTROINTESTINAL: Abdomen soft, non-tender, non-distended. Normal active bowel sounds MUSCULOSKELETAL: Extremities without cyanosis, or edema. NEURO: Alert & Oriented x4 to person, place, time, situation. Moves all ext x4 PSYCH: Appropriate mood and affect. A/P Problem List: (1) Syncope ICD Code: R55 - Syncope and collapse Status: Acute (2) Chest pain ICD Code: R07.9 - Chest pain, unspecified Status: Resolved (3) Rhabdomyolysis ICD Code: M62.82 - Rhabdomyolysis (4) Hypokalemia ICD Code: E87.6 - Hypokalemia Status: Acute (5) Alcohol abuse ICD Code: F10.10 - Alcohol abuse, uncomplicated Status: Chronic Assessment and Plan 61-year-old male admitted after a syncopal event secondary to alcohol intoxication. Syncope: acute syncopal event related to alcohol intoxication. CT Head with no acute findings. CT C-spine negative. Echo 03/01/17 w/ EF 65-70%. Patient with multiple previous admit for alcohol intoxication. He continues to drink a pedal vodka daily. Alcohol dependence: Discussed the need to quit drinking alcohol with the patient. He states he is willing to go to inpatient alcohol rehabilitation. Discussed with case management. - [facility] protocol Chest Pain: Records reviewed. Patient always complains of chest pain whenever he comes in. Workup always negative. I suspect some narcotic seeking behavior. Will discontinue morphine. Hypertension: Uncontrolled. Patient is noncompliant with medications. - Resume lisinopril, metoprolol, Norvasc. Clonidine as needed Atrial fibrillation: Paroxysmal. Likely secondary to alcohol. Again the patient is noncompliant. He was discharge on Eliquis the last time but has not been taking any medications. - Given ongoing heavy alcohol abuse, I do not believe he is a candidate for anticoagulant. - Continue aspirin and metoprolol DVT Prophylaxis: SCD/Teds. Problem Qualifiers (1) Syncope: Qualified Codes: R55 - Syncope and collapse Adali Oliveros MD Apr 30, 2017 10:18
[2017-04-30] MEDS: cloNIDine HCL 0.1 MG TAB PO PRN (12:58)
[2017-04-30 15:25] LABS: CREATINE KINASE 206 U/L (39-308)
[2017-04-30] MEDS: LORazepam 2 MG TAB PO PRN (17:02)
[2017-05-01] VITALS (23 sets, daily range): BP systolic 130–166; BP diastolic 90–118; PULSE 66–106; RESP 16–20; TEMP 97.6–98.8; O2SAT 96–98
[2017-05-01] MEDS: THIAMINE HCL 100 MG TAB PO SCH (08:00)
[2017-05-01] MEDS: LORazepam 2 MG TAB PO PRN ×4 (08:00→18:47)
[2017-05-01] MEDS: LISINOPRIL 20 MG TAB PO SCH ×2 (08:00→21:02)
[2017-05-01] MEDS: DOCUSATE SODIUM 50 MG/SENNA 8.6 MG TAB PO SCH ×2 (08:00→21:00)
[2017-05-01] MEDS: ASPIRIN EC 81 MG TABEC PO SCH (08:00)
[2017-05-01] MEDS: FOLIC ACID 1 MG TAB PO SCH (08:00)
[2017-05-01] MEDS: PRAVASTATIN SOD 40 MG TAB PO SCH (08:01)
[2017-05-01] MEDS: MULTIVITAMINS/MINERALS THERAPEUTIC TAB PO SCH (08:01)
[2017-05-01] MEDS: METOPROLOL TARTRATE 25 MG TAB PO SCH ×3 (08:01→17:21)
[2017-05-01] MEDS: SODIUM CHLORIDE 0.9% FLUSH 10 ML FLUSH IV FLUSH SCH ×2 (08:02→21:01)
[2017-05-01] MEDS: cloNIDine HCL 0.1 MG TAB PO PRN (11:08)
[2017-05-01] MEDS ORDERED: AMLO10 PO (15:42)
[2017-05-01] MEDS ORDERED: LISI-515 PO (15:42)
[2017-05-01] MEDS ORDERED: METO50TA PO (15:42)
[2017-05-01] MEDS ORDERED: LORA-474 PO (15:42)
--- NOTE | 2017-05-01 15:43 | HHI.DCPOC ---
Discharge Care Plan Diagnosis: (1) Alcohol abuse (2) Noncompliance (3) Alcohol intoxication (4) Alcohol dependence (5) A-fib Goals to Promote Your Health * To prevent worsening of your condition and complications * To maintain your health at the optimal level Directions to Meet Your Goals Take your medications as prescribed Follow your dietary instruction Follow activity as directed Keep your appointments as scheduled Take your immunizations and boosters as scheduled If your symptoms worsen call your PCP, if no PCP go to Urgent Care Center or Emergency Room Smoking is Dangerous to Your Health. Avoid second hand smoke Call the 24-hour hour crisis hotline for domestic abuse at Adali Oliveros MD May 01, 2017 15:43
[2017-05-01] MEDS ORDERED: ASPI-99 PO (15:44)
--- NOTE | 2017-05-01 15:48 | HHI.DS ---
Discharge Summary Admission Date Apr 29, 2017 at 21:51 Discharge Date: May 01, 2017 Admitting Diagnosis SYNCOPE, CP R/O TN (1) Syncope ICD Code: R55 - Syncope and collapse Status: Acute (2) Chest pain ICD Code: R07.9 - Chest pain, unspecified Status: Resolved (3) Rhabdomyolysis ICD Code: M62.82 - Rhabdomyolysis (4) Hypokalemia ICD Code: E87.6 - Hypokalemia Status: Acute (5) Alcohol abuse ICD Code: F10.10 - Alcohol abuse, uncomplicated Status: Chronic Procedures None Brief History - From Admission History of present illness from the admitting physician This is a 61-year-old male with a PMH of HTN, A-fib on ASA, COPD, Anxiety, Depression, LBBB and Alcohol Abuse was brought to the ER secondary to syncopal event. Patient has very little recall of events, states he was walking and had sudden syncopal event, denies lightheadedness/dizziness prior. C/o chest pain since syncope, no SOB or cough. Does admit to drinking daily, 1pint Vodka, last drink earlier today. On arrival, BP 233/118, HR 111, O2 sat 100% on 2L NC , Temp 99.0. CBC Senna-Gen remarkable. Chemistry essentially unremarkable except for K+ 3.2. CPK 325. Trop negative. EKG w/ no acute ischemia. CBC/BMP: 04/30/17 0518 04/30/17 0518 Significant Findings Laboratory Tests Test 04/29/17 18:45 04/30/17 05:18 04/30/17 14:08 Red Blood Count 4.30 MIL/MM3 (4.50-5.90) 4.01 MIL/MM3 (4.50-5.90) Mean Platelet Volume 6.6 FL (7.0-11.0) 6.7 FL (7.0-11.0) Monocytes (%) (Auto) 10.3 % (0.0-8.0) 11.6 % (0.0-8.0) Total Protein 6.3 GM/DL (6.4-8.2) 5.7 GM/DL (6.4-8.2) Albumin 3.3 GM/DL (3.4-5.0) 3.1 GM/DL (3.4-5.0) Calcium Level 7.7 MG/DL (8.5-10.1) 7.6 MG/DL (8.5-10.1) Potassium Level 3.2 MEQ/L (3.5-5.1) 3.2 MEQ/L (3.5-5.1) Chloride Level 110 MEQ/L (98-107) 108 MEQ/L (98-107) Total Creatine Kinase 325 U/L (39-308) Troponin I LESS THAN 0.02 NG/ML LESS THAN 0.02 NG/ML Imaging Last Impressions Head CT 04/29/171949 Signed Impressions: Service Date/Time: Saturday, April 29, 2017 20:49 - CONCLUSION: No bleed or other acute intracranial abnormality. Jung Cooley MD Cervical Spine CT 04/29/171949 Signed Impressions: Service Date/Time: Saturday, April 29, 2017 20:51 - CONCLUSION: Intact cervical spine. Degenerative changes as above, primarily C5/C6 and C6-C7. Jung Cooley MD Chest X-Ray 04/29/171923 Signed Impressions: Service Date/Time: Saturday, April 29, 2017 19:28 - CONCLUSION: Trace bibasilar atelectasis. Jung Cooley MD PE at Discharge GENERAL: This is a well-nourished, well-developed patient, in no apparent distress. CARDIOVASCULAR: Normal rate and regular rhythm without murmurs, gallops, or rubs. RESPIRATORY: Good respiratory efforts. Breath sounds equal and clear to auscultation bilaterally. GASTROINTESTINAL: Abdomen soft, non-tender, non-distended. Normal active bowel sounds MUSCULOSKELETAL: Extremities without cyanosis, or edema. NEURO: Alert & Oriented x4 to person, place, time, situation. Moves all ext x4 PSYCH: Appropriate mood and affect. Pt update on day of discharge Patient states he will not return to the boat. His cousin is coming to pick him up from [place] and he will go live with him. However he will not be able to get here until tomorrow morning. He reports feeling some shakiness. Otherwise no other complaints. Hospital Course 61-year-old male admitted after a syncopal event secondary to alcohol intoxication. Evaluation and treatment course detailed below: Syncope: acute syncopal event related to alcohol intoxication. CT Head with no acute findings. CT C-spine negative. Echo 03/01/17 w/ EF 65-70%. Patient with multiple previous admit for alcohol intoxication. He continues to drink a pedal vodka daily. Alcohol dependence: Discussed the need to quit drinking alcohol with the patient. He states he is willing to go to inpatient alcohol rehabilitation. He change his mind and states he will go live with his cousin in [facility]. I advised him to at least consider AA meetings. He was treated with [facility] protocol. He states he will no longer drink. He was given a limited supply of Ativan to be used as needed for withdrawal symptoms. He was specifically advised that he cannot drink alcohol while taking this medication. Chest Pain: Records reviewed. Patient always complains of chest pain whenever he comes in. Some malingering behavior. Workup always negative. I suspect some narcotic seeking behavior. Hypertension: Patient is noncompliant with medications. - Resume lisinopril, metoprolol, Norvasc. Clonidine as needed Atrial fibrillation: Paroxysmal. Likely secondary to alcohol. Again the patient is noncompliant. He was discharge on Eliquis the last time but has not been taking any medications. - Given ongoing heavy alcohol abuse, I do not believe he is a candidate for anticoagulant. - Continue aspirin and metoprolol Patient can be discharged home in the morning when his ride arrives. Pt Condition on Discharge: Stable Discharge Disposition: Discharge Home Discharge Time: <= 30 minutes Discharge Instructions DIET: Follow Instructions for: Heart Healthy Diet Activities you can perform: Regular-No Restrictions Other Activity Instructions: DO NOT DRINK ALCOHOL Follow up Referrals: PCP Follow-up New Medications: Aspirin DR (Adult Aspirin EC Low Strength) 81 Mg Tabec 81 MG PO DAILY, #30 TAB Lisinopril (Lisinopril) 20 Mg Tab 20 MG PO Q12HR, #60 TAB Lorazepam (Ativan) 1 Mg Tab 1 MG PO Q4H PRN for withdrawal symptoms. , #12 TAB DO not drink alcohol if you take this medication. Metoprolol Tartrate (Metoprolol Tartrate) 50 Mg Tab 50 MG PO TID, #90 TAB 0 Refills Continued Medications: Amlodipine (Norvasc) 10 Mg Tab 10 MG PO DAILY for Blood Pressure Management, #30 TAB (This prescription has been renewed) Discontinued Medications: Lisinopril (Lisinopril) 20 Mg Tab 40 MG PO DAILY for Blood Pressure Management, #30 TAB Adali Oliveros MD May 01, 2017 15:48
[2017-05-02] VITALS (10 sets, daily range): BP systolic 112–167; BP diastolic 66–117; PULSE 71–113; RESP 16–22; TEMP 98; O2SAT 97–99
[2017-05-02] MEDS: cloNIDine HCL 0.1 MG TAB PO PRN ×2 (00:08→09:31)
[2017-05-02] MEDS: LORazepam 1 MG TAB PO PRN (00:08)
[2017-05-02] MEDS: LORazepam 2 MG TAB PO PRN (05:01)
[2017-05-02] MEDS: FOLIC ACID 1 MG TAB PO SCH (08:27)
[2017-05-02] MEDS: METOPROLOL TARTRATE 25 MG TAB PO SCH (08:27)
[2017-05-02] MEDS: ASPIRIN EC 81 MG TABEC PO SCH (08:28)
[2017-05-02] MEDS: DOCUSATE SODIUM 50 MG/SENNA 8.6 MG TAB PO SCH (08:28)
[2017-05-02] MEDS: SODIUM CHLORIDE 0.9% FLUSH 10 ML FLUSH IV FLUSH SCH (08:28)
[2017-05-02] MEDS: PRAVASTATIN SOD 40 MG TAB PO SCH (08:28)
[2017-05-02] MEDS: MULTIVITAMINS/MINERALS THERAPEUTIC TAB PO SCH (08:28)
[2017-05-02] MEDS: LISINOPRIL 20 MG TAB PO SCH (08:28)
[2017-05-02] MEDS: THIAMINE HCL 100 MG TAB PO SCH (08:28)
== END 2017-05-02 09:46 | disposition home or self-care (01) ==
LOC: NEPE 18:16 → NEDA 21:51 → HCIS 04-30 03:37
PROVIDERS: ADMIT Hospitalist; ATTEND Hospitalist
DX: R55 Syncope and collapse (principal); R07.9 Chest pain, unspecified; M62.82 Rhabdomyolysis; E87.6 Hypokalemia; F10.229 Alcohol dependence with intoxication, unspecified; I48.0 Paroxysmal atrial fibrillation; I49.1 Atrial premature depolarization; I10 Essential (primary) hypertension; J44.9 Chronic obstructive pulmonary disease, unspecified; J98.11 Atelectasis; Z91.14 Patient's other noncompliance with medication regimen; Z86.718 Personal history of other venous thrombosis and embolism; Z87.442 Personal history of urinary calculi
CPT/HCPCS: 70450; 71010; 72125; 76937; 80053; 82550; 82552; 82948; 83690; 83735; 83880; 84484; 85025; 85610; 85730; 93005; 96361; 96365; 96368; 96375; 96376; 99285; G0378; J0360; J2060; J2270; J2405; J3411; J7030; J7040

== ENCOUNTER 2017-05-09 14:55 | Emergency (ER) | payer MEDICAID ==
[~2017-05-09] VITALS: Ht 177.8 cm; Wt 90.0 kg
[~2017-05-09 14:55] MED LIST changes: -APIX5TAB PO; +ASPI-99 PO; -METO-309 PO; +METO50TA PO; -OXYC1TAB35 PO
[2017-05-09 15:23] VITALS: BP 89/68; PULSE 106; RESP 22; TEMP 98.7; O2SAT 95
--- NOTE | 2017-05-09 15:56 | RADRPT ---
EXAM DATE/TIME: 05/09/2017 15:41 [place] COMPARISON: CT PULMONARY ANGIOGRAM, February 14, 2017, 14:26. CHEST SINGLE AP, April 29, 2017, 19:28. INDICATIONS : Patient complains of chest pain. MEDICAL HISTORY : Deep venous thrombosis. Chronic obstructive pulmonary disease.Cardiovascular disease. SURGICAL HISTORY : None. ENCOUNTER: Initial ACUITY: 1 month PAIN SCORE: 4/10 LOCATION: chest FINDINGS: The heart is at the limits of normal in size. There are atelectatic changes at the left lung base. Th lilly are similar to previous dated 04/29/17. There are diffuse chronic appearing interstitial changes. The osseous structures are intact. CONCLUSION: 1. Left basilar atelectasis. Similar to previous in 02/14/17. Jai Tang MD on May 09, 2017 at 15:53 Board Certified Radiologist. This report was verified electronically.
[2017-05-09 15:59] VITALS: BP 157/107; PULSE 94; RESP 20; O2SAT 96
[2017-05-09 16:21] LABS: AUTOMATED NEUTROPHIL # 2.7 TH/MM3 (1.8-7.7); BASOPHIL % 0.7 % (0.0-2.0); EOSINOPHIL # 0.1 TH/MM3 (0-0.4); HEMATOCRIT 40.9 % (39.0-51.0); HEMO FLAGS DIFF FINAL; LYMPHOCYTE # 1.7 TH/MM3 (1.0-4.8); MEAN CELL VOLUME 98.1 FL (80.0-100.0); MEAN CORPUSCULAR HGB CONC 34.7 % (32.0-36.0); NEUT % 51.3 % (16.0-70.0); PLATELET COUNT 165 TH/MM3 (150-450); RED BLOOD COUNT 4.17 MIL/MM3 (4.50-5.90); RED CELL DISTRIBUTION WIDTH 14.3 % (11.6-17.2); WHITE BLOOD COUNT 5.3 TH/MM3 (4.0-11.0)
[2017-05-09 16:53] LABS: ANION GAP 9 MEQ/L (5-15); BICARBONATE 24.1 MEQ/L (21.0-32.0); BLOOD UREA NITROGEN 11 MG/DL (7-18); CHLORIDE 112 MEQ/L (98-107); CREATINE KINASE 157 U/L (39-308); GLOMERULAR FILTRATION RATE 124 ML/MIN (>89); SODIUM (NA) 145 MEQ/L (136-145)
[2017-05-09 16:57] LABS: POTASSIUM 3.3 MEQ/L (3.5-5.1)
[2017-05-09 17:09] LABS: CKMB 1.5 NG/ML (0.5-3.6)
--- NOTE | 2017-05-09 17:29 | PD ---
HPI . Chest pain Chief Complaint: Chest Pain Time Seen by Provider: 17:12 Travel History International Travel<30 days: No Contact w/Intl Traveler<30days: No Traveled to known affect area: No History of Present Illness HPI This patient presents with chest pain which started 1-2 hours prior to presentation. It is associated with shortness of breath and tremulousness. He reports his pain severity is 0. No known modifying factor. PFSH Past Medical History Hx Anticoagulant Therapy: Yes (DVT-ASA) Arthritis: Yes (bursitis tendonitis) Asthma: No Atrial Fibrillation: Yes Autoimmune Disease: No Blood Disorders: No Anxiety: Yes Depression: Yes Heart Rhythm Problems: Yes (LBBB) Cancer: No Cardiac Catheterization: No Cardiovascular Problems: Yes (A FIB RVR, CHF, HTN left bundle branch) High Cholesterol: No Chemotherapy: No Chest Pain: Yes Congestive Heart Failure: Yes COPD: Yes Cerebrovascular Accident: No Diabetes: No Diminished Hearing: No Endocrine: No Gastrointestinal Disorders: No Genitourinary: Yes Headaches: No Hypertension: Yes Immune Disorder: No Implanted Vascular Access Dvce: No Kidney Stones: Yes Musculoskeletal: Yes (many broken bones in the past) Neurologic: Yes (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) Psychiatric: Yes Reproductive: No Respiratory: Yes (COPD) Immunizations Current: Yes Migraines: No Radiation Therapy: No Seizures: Yes Shingles: Yes Sleep Apnea: No Ulcer: No Past Surgical History Abdominal Surgery: Yes (HERNIA REPAIR) Cardiac Surgery: No Coronary Artery Bypass Graft: No Ear Surgery: No Endocrine Surgery: No Eye Surgery: No Genitourinary Surgery: No Gynecologic Surgery: No Neurologic Surgery: No Oral Surgery: No Thoracic Surgery: No Tonsillectomy: Yes Other Surgery: Yes Family History Family Myocardial Infarction: Yes (maternal) Social History Alcohol Use: Yes (1-2 PINTS DAILY VODKA) Tobacco Use: Yes (occasional cigar.) Substance Use: Yes (painkillers in the past) Allergies-Medications (Allergen,Severity, Reaction): Coded Allergies: Sulfa (Sulfonamide Antibiotics) (Unverified Allergy, Severe, hives, ) cephalexin (Unverified Allergy, Severe, hives, 04/29/17) penicillin G (Unverified Allergy, Severe, hives, 04/29/17) nitroglycerin (Unverified Allergy, Mild, 04/29/17) vomit Reported Meds & Prescriptions Reported Meds & Active Scripts Active Adult Aspirin EC Low Strength (Aspirin) 81 Mg Tabec 81 Mg PO DAILY Ativan (Lorazepam) 1 Mg Tab 1 Mg PO Q4H PRN DO not drink alcohol if you take this medication. Lisinopril 20 Mg Tab 20 Mg PO Q12HR Metoprolol Tartrate 50 Mg Tab 50 Mg PO TID Norvasc (Amlodipine Besylate) 10 Mg Tab 10 Mg PO DAILY Review of Systems Except as stated in HPI: all other systems reviewed are Neg Cardiovascular: Positive: Chest Pain or Discomfort Respiratory: Positive: Shortness of Breath Neurologic: Positive: Tremor Psychiatric: Positive: Substance Abuse Physical Exam Narrative GENERAL: Disheveled appearing man who does not appear to be in acute distress. He smells of alcohol. SKIN: warm/dry. HEAD: Normocephalic. Atraumatic. EYES: Pupils equal and round. No scleral icterus. No injection or drainage. ENT: No nasal bleeding or discharge. Mucous membranes pink and moist. NECK: Trachea midline. Full range of motion without pain.. CARDIOVASCULAR: Regular rate and rhythm. Heart sounds are normal. RESPIRATORY: No accessory muscle use. Clear to auscultation. Breath sounds equal bilaterally. GASTROINTESTINAL: Abdomen soft. Nontender. Bowel sounds present. Nondistended. MUSCULOSKELETAL: No obvious deformities. NEUROLOGICAL: Awake and alert. No obvious cranial nerve deficits. Motor grossly within normal limits. Normal speech. PSYCHIATRIC: Appropriate mood and affect; insight and judgment normal. Data Data Last Documented VS Vital Signs Date Time Temp Pulse Resp B/P (MAP) Pulse Ox O2 Delivery O2 Flow Rate FiO2 05/09/17 15:59 94 20 157/107 (124) 96 Nasal Cannula 2.00 05/09/17 15:23 98.7 Orders Orders Electrocardiogram (05/09/17 15:27) Complete Blood Count With Diff (05/09/17 15:27) Basic Metabolic Panel (Bmp) (05/09/17 15:27) Ckmb (Isoenzyme) Profile (05/09/17 15:27) Troponin I (05/09/17 15:27) Chest, Single Ap (05/09/17 15:27) Iv Access Insert/Monitor (05/09/17 15:27) Ecg Monitoring (05/09/17 15:27) Oxygen Administration (9/27/17 15:27) Oximetry (05/09/17 15:27) CKMB (05/09/17 15:54) CKMB% (05/09/17 15:54) Labs Laboratory Tests Test 05/09/17 15:54 White Blood Count 5.3 TH/MM3 Red Blood Count 4.17 MIL/MM3 Hemoglobin 14.2 GM/DL Hematocrit 40.9 % Mean Corpuscular Volume 98.1 FL Mean Corpuscular Hemoglobin 34.0 PG Mean Corpuscular Hemoglobin Concent 34.7 % Red Cell Distribution Width 14.3 % Platelet Count 165 TH/MM3 Mean Platelet Volume 6.9 FL Neutrophils (%) (Auto) 51.3 % Lymphocytes (%) (Auto) 33.0 % Monocytes (%) (Auto) 14.0 % Eosinophils (%) (Auto) 1.0 % Basophils (%) (Auto) 0.7 % Neutrophils # (Auto) 2.7 TH/MM3 Lymphocytes # (Auto) 1.7 TH/MM3 Monocytes # (Auto) 0.7 TH/MM3 Eosinophils # (Auto) 0.1 TH/MM3 Basophils # (Auto) 0.0 TH/MM3 CBC Comment DIFF FINAL Differential Comment Blood Urea Nitrogen 11 MG/DL Creatinine 0.65 MG/DL Random Glucose 104 MG/DL Calcium Level 7.7 MG/DL Sodium Level 145 MEQ/L Potassium Level 3.3 MEQ/L Chloride Level 112 MEQ/L Carbon Dioxide Level 24.1 MEQ/L Anion Gap 9 MEQ/L Estimat Glomerular Filtration Rate 124 ML/MIN Total Creatine Kinase 157 U/L Creatine Kinase MB 1.5 NG/ML Troponin I LESS THAN 0.02 NG/ML MDM Medical Decision Making Medical Screen Exam Complete: Yes Emergency Medical Condition: Yes Medical Record Reviewed: Yes (patient was admitted here for the same thing. He had an echo done in February that showed an ejection fraction of 65-70%. He was ruled out by cardiac enzymes. This patient presents here frequently complaining with chest pain and his chest pain is felt to be malingering.) Interpretation(s) EKG shows a left bundle branch block. Sinus rhythm. Unchanged from previous. Differential Diagnosis Differential diagnosis of chest pain includes but is not limited to musculoskeletal pain, pulmonary embolism, acute coronary syndrome, pneumonia, pleurisy Narrative Course This patient presents for chest pain. He is homeless. He has had previous negative workups for chest pain, most recently 04/29-05/02. Last Impressions Chest X-Ray 05/09/17 1527 Signed Impressions: Service Date/Time: Tuesday, May 09, 2017 15:41 - CONCLUSION: 1. Left basilar atelectasis. Similar to previous in 02/14/17. Jai Tang MD CBC & BMP Diagram 05/09/17 15:54 Calcium Level 7.7 L Cardiac enzymes are negative. This patient presents for chest pain. He looks very comfortable. He is again intoxicated. His chest pain workup here is negative. The history, exam, diagnostic testing, and current condition do not suggest any significant pathology to warrant further testing, continued ED treatment, admission, or surgical evaluation at this point. The patient's condition is stable and appropriate for discharge. Diagnosis Primary Impression: Atypical chest pain Additional Impression: Malingerer Patient Instructions: Chest Pain (DC), General Instructions Disposition: 01 DISCHARGE HOME Condition: Stable Saida Holguin MD May 09, 2017 17:29
[2017-05-09 17:33] VITALS: BP 158/100; PULSE 100; RESP 16; O2SAT 100
--- NOTE | 2017-05-10 07:56 | EKG ---
Date Performed: 05/09/2017 Time Performed: 15:35:04 PTAGE: 61 years EKG: SINUS TACHYCARDIA WITH FIRST DEGREE AV BLOCK LEFT ATRIAL ENLARGEMENT LEFT BUNDLE BRANCH BLO CK ABNORMAL ECG Since PREVIOUS TRACING , no significant change noted PREVIOUS TRACIN04/29/2017 18.53 DOCTOR: Natalia Sampson Interpretating Date/Time 05/10/2017 07:54:39
== END 2017-05-09 17:46 | disposition home or self-care (01) ==
LOC: NEPC 14:55
DX: R07.89 Other chest pain (principal); J98.11 Atelectasis; I44.7 Left bundle-branch block, unspecified; R00.0 Tachycardia, unspecified; I44.0 Atrioventricular block, first degree; R94.31 Abnormal electrocardiogram [ECG] [EKG]; R25.1 Tremor, unspecified; I11.0 Hypertensive heart disease with heart failure; I50.9 Heart failure, unspecified
CPT/HCPCS: 71010; 80048; 82550; 82552; 84484; 85025; 93005; 99285

== ENCOUNTER 2017-05-11 08:11 | Inpatient (IN) | payer MEDICAID ==
[~2017-05-11] VITALS: Ht 188 cm; Wt 93.8 kg
[2017-05-11 08:17] VITALS: BP 137/102; PULSE 106; RESP 19; TEMP 98.2; O2SAT 96
[2017-05-11] MEDS ORDERED: LORazepam 2 MG/ML VIAL IV PUSH PRN ×4 (09:00→12:00)
[2017-05-11] MEDS ORDERED: SODIUM CHLORIDE 0.9% FLUSH 10 ML FLUSH IVF PRN (09:00)
[2017-05-11] MEDS ORDERED: LORazepam 1 MG TAB PO PRN (09:00)
[2017-05-11] MEDS ORDERED: LORazepam 2 MG TAB PO PRN ×2 (09:00→12:00)
[2017-05-11] MEDS ORDERED: FLUMAZENIL 0.5 MG/5 ML VIAL IV PUSH PRN ×2 (09:00→12:00)
[2017-05-11 09:02] VITALS: O2SAT 97
[2017-05-11 09:07] LABS: AUTOMATED NEUTROPHIL # 4.6 TH/MM3 (1.8-7.7); BASOPHIL # 0.1 TH/MM3 (0-0.2); EOSINOPHIL % 0.7 % (0.0-4.0); HEMATOCRIT 42.6 % (39.0-51.0); HEMO FLAGS DIFF FINAL; MEAN CELL VOLUME 96.5 FL (80.0-100.0); MEAN CORPUSCULAR HGB CONC 34.2 % (32.0-36.0); MONO % 11.3 % (0.0-8.0); PLATELET COUNT 167 TH/MM3 (150-450); RED BLOOD COUNT 4.41 MIL/MM3 (4.50-5.90); WHITE BLOOD COUNT 6.4 TH/MM3 (4.0-11.0)
[2017-05-11 09:19] LABS: PROTHROMBIN TIME - PATIENT 11.4 SEC (9.8-11.6)
[2017-05-11 09:27] LABS: ALT (GPT) 20 U/L (12-78); ANION GAP 12 MEQ/L (5-15); AST (GOT) 27 U/L (15-37); BICARBONATE 23.7 MEQ/L (21.0-32.0); BLOOD UREA NITROGEN 11 MG/DL (7-18); CHLORIDE 106 MEQ/L (98-107); GLOMERULAR FILTRATION RATE 96 ML/MIN (>89); MAGNESIUM 1.5 MG/DL (1.5-2.5); POTASSIUM 3.3 MEQ/L (3.5-5.1); SODIUM (NA) 142 MEQ/L (136-145)
[2017-05-11 09:30] LABS: ALKALINE PHOSPHATASE 91 U/L (45-117); CREATINE KINASE 185 U/L (39-308); TOTAL BILIRUBIN ADULT 1.1 MG/DL (0.2-1.0)
[2017-05-11] MEDS: LORazepam 2 MG/ML VIAL IV PUSH PRN ×5 (09:36→21:15)
--- NOTE | 2017-05-11 09:42 | RADRPT ---
EXAM DATE/TIME: 05/11/2017 09:11 [facility] COMPARISON: CHEST SINGLE AP, May 09, 2017, 15:41. INDICATIONS : Chest pain, cough, and arms are shaking. MEDICAL HISTORY : Chronic obstructive pulmonary disease. Deep venous thrombosis. Congestive heart failure. Seizur es. SURGICAL HISTORY : Tonsillectomy. ENCOUNTER: Initial ACUITY: 1 day PAIN SCORE: 9/10 LOCATION: Bilateral chest FINDINGS: A single view of the chest demonstrates the lungs to be symmetrically aerated without evidence of mas s, infiltrate or effusion. The cardiomediastinal contours are unremarkable. Osseous structures are intact. CONCLUSION: 1. No acute findings. The area of atelectasis in the left lung base appears improved compared to prev ious. Jai Tang MD on May 11, 2017 at 9:40 Board Certified Radiologist. This report was verified electronically.
[2017-05-11 09:58] LABS: ALCOHOL 59 MG/DL (0-5)
--- NOTE | 2017-05-11 09:58 | PD ---
HPI Chief Complaint: Chest Pain Time Seen by Provider: 08:47 Travel History International Travel<30 days: No Contact w/Intl Traveler<30days: No Traveled to known affect area: No History of Present Illness HPI 61-year-old male presents with feeling like he is going through alcohol withdrawal. He states his last alcohol was yesterday morning. He states he's been drinking for multiple years. He states he's never gone to this point where he is withdrawing this bad where he is shaky all over. He states that he is also having chest pain and has had that for a while. He's had multiple similar visits for chest pain. He denies other concurrent complaints at this time but is a poor historian. PFSH Past Medical History Hx Anticoagulant Therapy: Yes (DVT-ASA) Arthritis: Yes (bursitis tendonitis) Asthma: No Atrial Fibrillation: Yes Autoimmune Disease: No Blood Disorders: No Anxiety: Yes Depression: Yes Heart Rhythm Problems: Yes (LBBB) Cancer: No Cardiac Catheterization: No Cardiovascular Problems: Yes High Cholesterol: No Chemotherapy: No Chest Pain: Yes Congestive Heart Failure: Yes COPD: Yes Cerebrovascular Accident: No Diabetes: No Diminished Hearing: No Endocrine: No Gastrointestinal Disorders: No Genitourinary: Yes Headaches: No Hypertension: Yes Immune Disorder: No Implanted Vascular Access Dvce: No Kidney Stones: Yes Musculoskeletal: Yes (many broken bones in the past) Neurologic: Yes (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) Psychiatric: Yes Reproductive: No Respiratory: Yes (COPD) Immunizations Current: Yes Migraines: No Radiation Therapy: No Seizures: Yes Shingles: Yes Sleep Apnea: No Ulcer: No Past Surgical History Abdominal Surgery: Yes (HERNIA REPAIR) Cardiac Surgery: No Coronary Artery Bypass Graft: No Ear Surgery: No Endocrine Surgery: No Eye Surgery: No Genitourinary Surgery: No Gynecologic Surgery: No Neurologic Surgery: No Oral Surgery: No Thoracic Surgery: No Tonsillectomy: Yes Other Surgery: Yes Family History Family Myocardial Infarction: Yes (maternal) Social History Alcohol Use: Yes (1-2 PINTS DAILY VODKA) Tobacco Use: Yes (occasional cigar.) Substance Use: Yes (painkillers in the past) Allergies-Medications (Allergen,Severity, Reaction): Coded Allergies: Sulfa (Sulfonamide Antibiotics) (Unverified Allergy, Severe, hives, ) cephalexin (Unverified Allergy, Severe, hives, 05/11/17) penicillin G (Unverified Allergy, Severe, hives, 05/11/17) nitroglycerin (Unverified Allergy, Mild, 05/11/17) vomit Reported Meds & Prescriptions Reported Meds & Active Scripts Active Adult Aspirin EC Low Strength (Aspirin) 81 Mg Tabec 81 Mg PO DAILY Ativan (Lorazepam) 1 Mg Tab 1 Mg PO Q4H PRN DO not drink alcohol if you take this medication. Lisinopril 20 Mg Tab 20 Mg PO Q12HR Metoprolol Tartrate 50 Mg Tab 50 Mg PO TID Norvasc (Amlodipine Besylate) 10 Mg Tab 10 Mg PO DAILY Review of Systems Except as stated in HPI: all other systems reviewed are Neg Physical Exam Narrative GENERAL: Well-nourished, well-developed patient. SKIN: Warm and dry. HEAD: Normocephalic and atraumatic. EYES: No injection or drainage. ENT: No nasal drainage noted. NECK: Supple, trachea midline. CARDIOVASCULAR: Tachycardic rate and regular rhythm RESPIRATORY: Breath sounds equal bilaterally. No accessory muscle use. GASTROINTESTINAL: Abdomen soft, non-tender, nondistended. EXTREMITIES: No edema. NEUROLOGICAL: Awake and alert. Motor and sensory grossly within normal limits. Normal speech. Resting tremor noted Data Data Last Documented VS Vital Signs Date Time Temp Pulse Resp B/P (MAP) Pulse Ox O2 Delivery O2 Flow Rate FiO2 05/11/17 11:21 170/104 (126) 05/11/17 09:02 97 Room Air 05/11/17 08:17 98.2 106 19 Orders Orders Electrocardiogram (05/11/17 08:47) Ckmb (Isoenzyme) Profile (05/11/17 08:47) Complete Blood Count With Diff (05/11/17 08:47) Comprehensive Metabolic Panel (05/11/17 08:47) Magnesium (Mg) (05/11/17 08:47) Prothrombin Time / Inr (Pt) (05/11/17 08:47) Act Partial Throm Time (Ptt) (05/11/17 08:47) Troponin I (05/11/17 08:47) Lipase (05/11/17 08:47) Chest, Single Ap (05/11/17 08:47) Ecg Monitoring (05/11/17 08:47) Bilateral Bp Monitoring (05/11/17 08:47) Iv Access Insert/Monitor (05/11/17 08:47) Oximetry (05/11/17 08:47) Sodium Chloride 0.9% Flush (Ns Flush) (05/11/17 09:00) Alcohol (Ethanol) (05/11/17 08:47) Drug Screen, Random Urine (05/11/17 08:47) Alcohol Withdrawal Asmt-Ciwa ONCE (05/11/17 08:59) Flumazenil Inj (Romazicon Inj) (05/11/17 09:00) Lorazepam (Ativan) (05/11/17 09:00) Lorazepam Inj (Ativan Inj) (05/11/17 09:00) Lorazepam (Ativan) (05/11/17 09:00) Lorazepam Inj (Ativan Inj) (05/11/17 09:00) Lorazepam Inj (Ativan Inj) (05/11/17 09:00) Lorazepam Inj (Ativan Inj) (05/11/17 09:00) CKMB (05/11/17 08:55) CKMB% (05/11/17 08:55) Aspirin Ec (Ecotrin Ec) (05/11/17 11:00) Admit Order (Ed Use Only) (05/11/17 11:30) Labs Laboratory Tests Test 05/11/17 08:55 White Blood Count 6.4 TH/MM3 Red Blood Count 4.41 MIL/MM3 Hemoglobin 14.6 GM/DL Hematocrit 42.6 % Mean Corpuscular Volume 96.5 FL Mean Corpuscular Hemoglobin 33.0 PG Mean Corpuscular Hemoglobin Concent 34.2 % Red Cell Distribution Width 14.0 % Platelet Count 167 TH/MM3 Mean Platelet Volume 6.7 FL Neutrophils (%) (Auto) 72.0 % Lymphocytes (%) (Auto) 15.0 % Monocytes (%) (Auto) 11.3 % Eosinophils (%) (Auto) 0.7 % Basophils (%) (Auto) 1.0 % Neutrophils # (Auto) 4.6 TH/MM3 Lymphocytes # (Auto) 1.0 TH/MM3 Monocytes # (Auto) 0.7 TH/MM3 Eosinophils # (Auto) 0.0 TH/MM3 Basophils # (Auto) 0.1 TH/MM3 CBC Comment DIFF FINAL Differential Comment Prothrombin Time 11.4 SEC Prothromb Time International Ratio 1.0 RATIO Activated Partial Thromboplast Time 25.0 SEC Blood Urea Nitrogen 11 MG/DL Creatinine 0.81 MG/DL Random Glucose 95 MG/DL Total Protein 6.8 GM/DL Albumin 3.7 GM/DL Calcium Level 8.0 MG/DL Magnesium Level 1.5 MG/DL Alkaline Phosphatase 91 U/L Aspartate Amino Transf (AST/SGOT) 27 U/L Alanine Aminotransferase (ALT/SGPT) 20 U/L Total Bilirubin 1.1 MG/DL Sodium Level 142 MEQ/L Potassium Level 3.3 MEQ/L Chloride Level 106 MEQ/L Carbon Dioxide Level 23.7 MEQ/L Anion Gap 12 MEQ/L Estimat Glomerular Filtration Rate 96 ML/MIN Total Creatine Kinase 185 U/L Creatine Kinase MB 1.4 NG/ML Troponin I LESS THAN 0.02 NG/ML Lipase 210 U/L Ethyl Alcohol Level 59 MG/DL MDM Medical Decision Making Medical Screen Exam Complete: Yes Emergency Medical Condition: Yes Medical Record Reviewed: Yes (past history confirm, stress in October noted, multiple CT angios, multiple visits for chest pain) Interpretation(s) CBC & BMP Diagram 05/11/17 08:55 Total Protein 6.8, Albumin 3.7, Calcium Level 8.0 L, Magnesium Level 1.5, Alkaline Phosphatase 91, Aspartate Amino Transf (AST/SGOT) 27, Alanine Aminotransferase (ALT/SGPT) 20, Total Bilirubin 1.1 H Last 24 hours Impressions Chest X-Ray 05/11/17 0847 Signed Impressions: Service Date/Time: Thursday, May 11, 2017 09:11 - CONCLUSION: 1. No acute findings. The area of atelectasis in the left lung base appears improved compared to previous. Jai Tang MD Differential Diagnosis Alcohol withdrawal, pancreatitis, musculoskeletal, atypical cardiac Narrative Course Will check blood work, EKG, chest x-ray and place on alcohol withdrawal protocol this patient is tachycardic, hypertensive and with resting tremor Patient still tachycardic and hypertensive after IV Ativan. We'll admit to the hospital for alcohol withdrawal and cardiac markers Physician Communication Physician Communication resident team agrees to admit Diagnosis Primary Impression: Alcohol withdrawal Qualified Codes: F10.230 - Alcohol dependence with withdrawal, uncomplicated Additional Impression: Chest pain Qualified Codes: R07.9 - Chest pain, unspecified Admitting Information Admitting Physician Requests: Admit Justyna Galindo MD May 11, 2017 09:58
[2017-05-11 10:10] LABS: CKMB 1.4 NG/ML (0.5-3.6)
[2017-05-11] MEDS ORDERED: ASPIRIN EC 325 MG TABEC PO ONE (11:00)
[2017-05-11 11:21] VITALS: BP 170/104
--- NOTE | 2017-05-11 11:39 | HHI.HP ---
[facility] Service Family Medicine Primary Care Physician Jessica Flores MD Admission Diagnosis Diagnoses: International Travel<30 Days: No Contact w/Intl Traveler<30days: No Known Affected Area: No History of Present Illness Patient is a 61-year-old man with a history of alcohol abuse, hypertension, paroxysmal A. fib, recent chest pain workup, who presented with alcohol withdrawal and chest pain. This morning, he experienced chest tightness as he was just sitting there. He went to get up and basically fell down because of pain and dizziness[place] Someone [place] said he didn't look well, so he called him an ambulance. He felt clammy, sweaty, felt like a horse was sitting on his chest inside. His pain radiated infero-laterally. In response, he took his morning medications of lisinopril and amlodipine and metoprolol. In ambulance, pt reports that his HR was close to 200, bp up to 180/110. Ativan helped a little. 8/10 pain now. Pt got aspirin in ED. Nitroglycerin gives him a rash. He tried going to a variety of places to detox, but was told he could not be accepted for a long time. He drinks over a pint of vodka a day. He didn't drink anything today or yesterday afternoon. (Kenneth Islas MD R2) Review of Systems Constitutional: COMPLAINS OF: Diaphoretic episodes, Chills (upon arrival to ED) , DENIES: Fever Endocrine: DENIES: Polydipsia, Polyuria Eyes: COMPLAINS OF: Blurred vision (left eye), DENIES: Diplopia, Eye pain, Vision loss, Double Vision Ears, nose, mouth, throat: COMPLAINS OF: Tinnitus, Running Nose, DENIES: Throat pain, Sinus Pain Respiratory: COMPLAINS OF: Shortness of breath, DENIES: Cough, Sputum production Cardiovascular: COMPLAINS OF: Chest pain, DENIES: Dyspnea on Exertion, Lower Extremity Edema, Orthopnea Gastrointestinal: COMPLAINS OF: Nausea, DENIES: Abdominal pain, Black stools, Bloody stools, Vomiting Genitourinary: COMPLAINS OF: Nocturia (1-2 qhs), DENIES: Dysuria Musculoskeletal: COMPLAINS OF: Neck pain, DENIES: Back pain Integumentary: DENIES: Pruritus, Rash Hematologic/lymphatic: DENIES: Bruising, Lymphadenopathy Neurologic: COMPLAINS OF: Headache (back of head), Paresthesias (left arm and fingers), Tremor, DENIES: Seizures (Kenneth Islas MD R2) Past Family Social History Past Medical History He reports being mostly compliant with his home medications. bursitis and tendonitis in left arm He doesn't know if he had a [facility] in the past. Per EMR: History of DVT Arthritis Atrial fibrillation on ASA and Eliquis History of left bundle branch block Anxiety/depression Hypertension COPD History of seizure secondary to alcohol withdrawal Alcohol abuse Past Surgical History femur surgery knee surgery ankle surgery bilaterally Per EMR: Hernia repair Tonsillectomy Reported Medications Reported Meds & Active Scripts Active Adult Aspirin EC Low Strength (Aspirin) 81 Mg Tabec 81 Mg PO DAILY Ativan (Lorazepam) 1 Mg Tab 1 Mg PO Q4H PRN DO not drink alcohol if you take this medication. Lisinopril 20 Mg Tab 20 Mg PO Q12HR Metoprolol Tartrate 50 Mg Tab 50 Mg PO TID Norvasc (Amlodipine Besylate) 10 Mg Tab 10 Mg PO DAILY (Kenneth Islas MD R2) Allergies: Coded Allergies: Sulfa (Sulfonamide Antibiotics) (Unverified Allergy, Severe, hives, ) cephalexin (Unverified Allergy, Severe, hives, 05/11/17) penicillin G (Unverified Allergy, Severe, hives, 05/11/17) nitroglycerin (Unverified Allergy, Mild, 05/11/17) vomit Active Ordered Medications Current Medications Medications (Trade) Dose Ordered Sig/Candy Route Start Time Stop Time Status Last Admin (NS Flush) 2 ml UNSCH PRN IVF 05/11/17 09:00 (Ativan Inj) 1 mg Q4H PRN IV PUSH 05/11/17 09:00 05/11/17 13:25 (Ativan Inj) 2 mg Q2H PRN IV PUSH 05/11/17 09:00 05/11/17 16:32 (NS Flush) 2 ml BID IV FLUSH 05/11/17 21:00 (NS Flush) 2 ml UNSCH PRN IV FLUSH 05/11/17 12:00 (Tylenol) 650 mg Q6H PRN PO 05/11/17 12:00 (Colace) 100 mg BID PRN PO 05/11/17 12:00 (Zofran Inj) 4 mg Q6H PRN IV PUSH 05/11/17 12:00 (Lipitor) 10 mg HS PO 05/11/17 21:00 (Folate) 1 mg DAILY PO 05/11/17 14:00 05/16/17 13:59 05/11/17 16:31 (Vitamin B1) 100 mg DAILY PO 05/11/17 14:00 (Theragran M Tab) 1 tab DAILY PO 05/11/17 14:00 05/16/17 13:59 05/11/17 16:31 (Romazicon Inj) 0.2 mg Q1M PRN IV PUSH 05/11/17 12:00 (Ativan) 1 mg Q4H PRN PO 05/11/17 12:00 (Ativan) 2 mg Q2H PRN PO 05/11/17 12:00 (Ativan Inj) 2 mg Q1H PRN IV PUSH 05/11/17 12:00 (Ativan Inj) 2 mg Q15M PRN IV PUSH 05/11/17 12:00 (Haldol Inj) 2 mg Q15M PRN IM 05/11/17 12:00 (Eliquis) 5 mg BID PO 05/11/17 21:00 (Catapres) 0.1 mg Q8HR PO 05/11/17 14:45 05/11/17 16:31 (Norvasc) 10 mg DAILY PO 05/12/17 09:00 (Ecotrin Ec) 81 mg DAILY PO 05/12/17 09:00 (Prinivil) 20 mg Q12HR PO 05/11/17 21:00 (Lopressor) 50 mg TID PO 05/11/17 18:00 05/11/17 16:31 (Tylenol) 650 mg Q6H PRN PO 05/11/17 18:00 UNV (Percocet 5-325 Mg) 1 tab Q4H PRN PO 05/11/17 18:00 UNV (Percocet 10-325 Mg) 1 tab Q4H PRN PO 05/11/17 18:00 UNV (Narcan Inj) 0.4 mg UNSCH PRN IV PUSH 05/11/17 18:00 UNV Family History Mother had A. fib. Father had cancer. No h/o DM or CAD Social History used to be on high doses of prescription drugs years ago: hydrocodone, ativan, cyclobenzaprine. 7-8 years ago, he stopped all cold turkey. 2 years ago, started drinking. Drinks 1-2 pints of Vodka daily. quit smoking cigarettes 6 months ago Never IVDU. Patient reports that he used to do judo and hockey. (Kenneth Islas MD R2) Physical Exam Vital Signs Vital Signs Date Time Temp Pulse Resp B/P (MAP) Pulse Ox O2 Delivery O2 Flow Rate FiO2 05/11/17 11:21 170/104 (126) 05/11/17 09:02 97 Room Air 05/11/17 08:17 98.2 106 19 137/102 (114) 96 Physical Exam GENERAL: This is a well-nourished, well-developed patient, uncomfortable and asking for pain medications. SKIN: No rashes, ecchymoses or lesions. Cool and dry. HEAD: Atraumatic. Normocephalic. EYES: Pupils equal round and reactive. Extraocular motions intact. No scleral icterus. No injection or drainage. ENT: Nose without bleeding, purulent drainage or septal hematoma. Throat without erythema, tonsillar hypertrophy or exudate. Uvula midline. Airway patent. NECK: Trachea midline. No JVD or lymphadenopathy. Supple, nontender, no meningeal signs. CARDIOVASCULAR: Tachycardic rate and regular rhythm without murmurs, gallops, or rubs. RESPIRATORY: Clear to auscultation. Breath sounds equal bilaterally. No wheezes , rales, or rhonchi. GASTROINTESTINAL: Abdomen soft, non-tender, nondistended. No hepato-splenomegaly , or palpable masses. No guarding. MUSCULOSKELETAL: Extremities without clubbing, cyanosis, or edema. No joint tenderness, effusion, or edema noted. No calf tenderness. NEUROLOGICAL: Awake and alert. Cranial nerves II through XII grossly intact. Motor and sensory grossly within normal limits. Five out of 5 muscle strength in all muscle groups. Normal speech. Laboratory Laboratory Tests Test 05/11/17 08:55 White Blood Count 6.4 Red Blood Count 4.41 Hemoglobin 14.6 Hematocrit 42.6 Mean Corpuscular Volume 96.5 Mean Corpuscular Hemoglobin 33.0 Mean Corpuscular Hemoglobin Concent 34.2 Red Cell Distribution Width 14.0 Platelet Count 167 Mean Platelet Volume 6.7 Neutrophils (%) (Auto) 72.0 Lymphocytes (%) (Auto) 15.0 Monocytes (%) (Auto) 11.3 Eosinophils (%) (Auto) 0.7 Basophils (%) (Auto) 1.0 Neutrophils # (Auto) 4.6 Lymphocytes # (Auto) 1.0 Monocytes # (Auto) 0.7 Eosinophils # (Auto) 0.0 Basophils # (Auto) 0.1 CBC Comment DIFF FINAL Differential Comment Prothrombin Time 11.4 Prothromb Time International Ratio 1.0 Activated Partial Thromboplast Time 25.0 Blood Urea Nitrogen 11 Creatinine 0.81 Random Glucose 95 Total Protein 6.8 Albumin 3.7 Calcium Level 8.0 Magnesium Level 1.5 Alkaline Phosphatase 91 Aspartate Amino Transf (AST/SGOT) 27 Alanine Aminotransferase (ALT/SGPT) 20 Total Bilirubin 1.1 Sodium Level 142 Potassium Level 3.3 Chloride Level 106 Carbon Dioxide Level 23.7 Anion Gap 12 Estimat Glomerular Filtration Rate 96 Total Creatine Kinase 185 Creatine Kinase MB 1.4 Troponin I LESS THAN 0.02 Lipase 210 Ethyl Alcohol Level 59 (Kenneth Islas MD R2) Result Diagram: 05/11/17 0855 05/11/17 0855 Imaging Last Impressions Chest X-Ray 05/11/17 0847 Signed Impressions: Service Date/Time: Thursday, May 11, 2017 09:11 - CONCLUSION: 1. No acute findings. The area of atelectasis in the left lung base appears improved compared to previous. Jai Tang MD Course In the emergency department, patient had EKG, CK-MB, Ativan IV, CIWA, aspirin 325 mg by mouth 1, admission order. (Kenneth Islas MD R2) Caprini VTE Risk Assessment Caprini VTE Risk Assessment: Mod/High Risk (score >= 2) Caprini Risk Assessment Model Point Value = 1 Point Value = 2 Point Value = 3 Point Value = 5 Age 41-60 Minor surgery BMI > 25 kg/m2 Swollen legs Varicose veins or History of unexplained or recurrent spontaneous Oral contraceptives or hormone replacement Sepsis (< 1 month) Serious lung disease, including pneumonia (< 1 month) Abnormal pulmonary function Acute myocardial infarction Congestive heart failure (< 1 month) History of inflammatory bowel disease Medical patient at bed rest Age 61-74 Arthroscopic surgery Major open surgery (> 45 min) Laparoscopic surgery (> 45 min) Malignancy Confined to bed (> 72 hours) Immobilizing plaster cast Central venous access Age >= 75 History of VTE Family history of VTE Factor V Leiden Prothrombin [id number] Lupus anticoagulant Anticardiolipin antibodies Elevated serum homocysteine Heparin-induced thrombocytopenia Other congenital or acquired thrombophilia Stroke (< 1 month) Elective arthroplasty Hip, pelvis, or leg fracture Acute spinal cord injury (< 1 month) Prophylaxis Regimen Total Risk Factor Score Risk Level Prophylaxis Regimen 0-1 Low Early ambulation 2 Moderate Order ONE of the following: *Sequential Compression Device (SCD) *Heparin 5000 units SQ BID 3-4 Higher Order ONE of the following medications: *Heparin 5000 units SQ TID *Enoxaparin/Lovenox 40 mg SQ daily (WT < 150 kg, CrCl > 30 mL/min) *Enoxaparin/Lovenox 30 mg SQ daily (WT < 150 kg, CrCl > 10-29 mL/min) *Enoxaparin/Lovenox 30 mg SQ BID (WT < 150 kg, CrCl > 30 mL/min) AND/OR *Sequential Compression Device (SCD) 5 or more Highest Order ONE of the following medications: *Heparin 5000 units SQ TID (Preferred with Epidurals) *Enoxaparin/Lovenox 40 mg SQ daily (WT < 150 kg, CrCl > 30 mL/min) *Enoxaparin/Lovenox 30 mg SQ daily (WT < 150 kg, CrCl > 10-29 mL/min) *Enoxaparin/Lovenox 30 mg SQ BID (WT < 150 kg, CrCl > 30 mL/min) AND *Sequential Compression Device (SCD) (Kenneth Islas MD R2) Assessment and Plan Assessment and Plan Patient presents with chest pain and alcohol withdrawal. Will admit for ACS rule out and admit to inpatient for alcohol withdrawal protocol. Code Status Full code Discussed Condition With Discussed with Dr. Mendez. (Kenneth Islas MD R2) Attending Attestation THIS CASE WAS DISCUSSED WITH THE RESIDENT PHYSICIANS. I HAVE REVIEWED THE RECORD AND AGREE WITH THE ABOVE NOTE AND PLAN OF CARE WAS DISCUSSED. I HAVE AUTHORIZED THE ORDER FOR ADMISSION TO AN IN-PATIENT STATUS. (Erick Mendez MD) Problem List: (1) Chest pain ICD Codes: R07.9 - Chest pain, unspecified Status: Resolved Plan: -EKG, CK-MB, troponin every 6 hours -Morphine when necessary for chest pain -Oxygen as needed -Nitrates are contraindicated given this patient's allergy to nitroglycerin -Aspirin given in emergency department; continue home medication baby aspirin everyday -Continue patient's home medication of metoprolol, lisinopril -Started atorvastatin 10 mg by mouth daily - (2) Alcohol withdrawal ICD Codes: F10.239 - Alcohol dependence with withdrawal, unspecified Status: Acute Plan: -CIWA protocol -Rally pack (3) Paroxysmal atrial fibrillation ICD Codes: I48.0 - Paroxysmal atrial fibrillation Status: Acute Plan: Pt with h/o paroxysmal atrial fibrillation currently in sinus tachycardia based on EKG. -Continue home medication of metoprolol -Restart eliquis, patient was discharged on this on 04/19/17 - Consult case management for assistance of medications on discharge (4) HTN (hypertension) ICD Codes: I10 - Essential (primary) hypertension Status: Chronic Plan: -Continue home medication of metoprolol and lisinopril and amlodipine and baby aspirin -Clonidine 0.1 mg by mouth every 8 hours -ACS workup as above (Kenneth Islas MD R2) Physician Certification 2 Midnight Certification Type: Admission for Inpatient Services Order for Inpatient Services The services are ordered in accordance with Medicare regulations or non- Medicare payer requirements, as applicable. In the case of services not specified as inpatient-only, they are appropriately provided as inpatient services in accordance with the 2-midnight benchmark. Estimated LOS (days): 2 2 days is the estimated time the patient will need to remain in the hospital, assuming treatment plan goals are met and no additional complications. Post-Hospital Plan: Not yet determined (Kenneth Islas MD R2) Problem Qualifiers (1) Chest pain: Qualified Codes: R07.9 - Chest pain, unspecified (2) Alcohol withdrawal: Qualified Codes: F10.230 - Alcohol dependence with withdrawal, uncomplicated (3) HTN (hypertension): Qualified Codes: I10 - Essential (primary) hypertension Kenneth Islas MD R2 May 11, 2017 11:39 Erick Mendez MD May 11, 2017 21:53
[2017-05-11] MEDS ORDERED: ONDANSETRON HCL 4 MG/2 ML VIAL IV PUSH PRN (12:00)
[2017-05-11] MEDS ORDERED: SODIUM CHLORIDE 0.9% FLUSH 10 ML FLUSH IV FLUSH PRN (12:00)
[2017-05-11] MEDS ORDERED: HALOPERIDOL LACTATE 5 MG/ML AMP IM PRN (12:00)
[2017-05-11] MEDS ORDERED: MORPHINE SULFATE 4 MG/ML INJ IV PUSH PRN (12:00)
[2017-05-11] MEDS ORDERED: DOCUSATE SODIUM 100 MG CAP PO PRN (12:00)
[2017-05-11] MEDS ORDERED: ACETAMINOPHEN 325 MG TAB PO PRN ×2 (12:00→20:00)
--- NOTE | 2017-05-11 13:02 | EKG ---
Date Performed: 05/11/2017 Time Performed: 08:26:23 PTAGE: 61 years EKG: SINUS TACHYCARDIA LEFT ATRIAL ENLARGEMENT LEFT BUNDLE BRANCH BLOCK ABNORMAL ECG PREVIOUS TRACING : 05/09/2017 15.35 No significant change from previous tracing noted. DOCTOR: Huy Almaguer Interpretating Date/Time 05/11/2017 13:02:19
[2017-05-11] MEDS ORDERED: METOPROLOL TARTRATE 25 MG TAB PO SCH (14:00)
[2017-05-11] MEDS: THIAMINE HCL 100 MG TAB PO SCH (14:00)
[2017-05-11] MEDS ORDERED: ENOXAPARIN SODIUM 40 MG/0.4 ML SYRINGE SQ SCH (14:00)
--- NOTE | 2017-05-11 14:09 | HHI.HP ---
[facility] Service Family Medicine Primary Care Physician Jessica Flores MD Admission Diagnosis Diagnoses: (1) Chest pain (2) Alcohol withdrawal International Travel<30 Days: No Contact w/Intl Traveler<30days: No Known Affected Area: No History of Present Illness 61-year-old male presents to the emergency department with a chief complaint of chest pain/pressure and dizziness that started this morning. Over the last several months he has had intermittent chest pain and pressure, however this morning it became severe and states that he felt as if a horse was sitting on his chest. He also felt as if his heart was racing and skipping beats. This morning he was in [place] by the [employer] bridge when he felt dizzy and had to sit down but was associated with this chest pressure. He also had associated diaphoresis with clammy skin and radiation of chest pain into his epigastric region. He then had to call for an ambulance to assist him. He was recently hospitalized from 04/08/17 through 04/19/10 for atrial fibrillation with RVR. He was evaluated by cardiology and he was eventually discharged from the hospital on metoprolol and eliquis, and he was supposed to follow-up with Dr. Mcmahon for an atrial ablation. He states that he has not followed up and had this done. He also had a Lexiscan stress test performed in 10/2016 was negative for stress-induced ischemia. Of note he also has a significant history of alcohol abuse. He states that over the last several months to several years he has been drinking more than one liter of vodka per day. He has tried to quit by getting himself into a detoxification center, however has been unable to do so. His last drink was yesterday afternoon around noon. He states he has gone through withdrawals before with tremors and anxiety, however has not actually gone through any type of DTs in the past Review of Systems Constitutional: COMPLAINS OF: Diaphoretic episodes, Fatigue, Dizziness, DENIES : Fever, Chills Respiratory: COMPLAINS OF: Wheezing, DENIES: Cough, Sputum production, Shortness of breath Cardiovascular: COMPLAINS OF: Chest pain, Palpitations, Dyspnea on Exertion, DENIES: Syncope, Lower Extremity Edema, Orthopnea Gastrointestinal: DENIES: Abdominal pain, Black stools, Bloody stools, Diarrhea , Nausea, Vomiting Psychiatric: COMPLAINS OF: Anxiety, Confusion, Agitation, DENIES: Mood changes , Hallucinations, Suicidal Ideation, Homicidal Ideation Past Family Social History Past Medical History a-fib - takes meds everyday. HTN bursitis and tendon in left arm doesn't know if he had a SD in the past. Past Surgical History femur surgery knee surgery ankles BL Allergies: Coded Allergies: Sulfa (Sulfonamide Antibiotics) (Unverified Allergy, Severe, hives, ) cephalexin (Unverified Allergy, Severe, hives, 05/11/17) penicillin G (Unverified Allergy, Severe, hives, 05/11/17) nitroglycerin (Unverified Allergy, Mild, 05/11/17) vomit Family History mom has a-fib Social History used to do drugs years ago. hydrocodone, ativan, cyclobenzaprine. 7-8 years ago , stopped all cold turkey. 2 years ago, started drinking. quit smoking 6 ma. Never IVDU. Physical Exam Vital Signs Vital Signs Date Time Temp Pulse Resp B/P (MAP) Pulse Ox O2 Delivery O2 Flow Rate FiO2 05/11/17 11:21 170/104 (126) 05/11/17 09:02 97 Room Air 05/11/17 08:17 98.2 106 19 137/102 (114) 96 Physical Exam GENERAL: Well-nourished, well-developed patient. SKIN: Warm and dry. HEAD: Normocephalic and atraumatic. EYES: No injection or drainage. ENT: No nasal drainage noted. NECK: Supple, trachea midline. CARDIOVASCULAR: Tachycardic rate and regular rhythm RESPIRATORY: Breath sounds equal bilaterally. No accessory muscle use. GASTROINTESTINAL: Abdomen soft, non-tender, nondistended. EXTREMITIES: No edema. NEUROLOGICAL: Awake and alert. Motor and sensory grossly within normal limits. Normal speech. Resting tremor noted Laboratory Laboratory Tests Test 05/11/17 08:55 White Blood Count 6.4 Red Blood Count 4.41 Hemoglobin 14.6 Hematocrit 42.6 Mean Corpuscular Volume 96.5 Mean Corpuscular Hemoglobin 33.0 Mean Corpuscular Hemoglobin Concent 34.2 Red Cell Distribution Width 14.0 Platelet Count 167 Mean Platelet Volume 6.7 Neutrophils (%) (Auto) 72.0 Lymphocytes (%) (Auto) 15.0 Monocytes (%) (Auto) 11.3 Eosinophils (%) (Auto) 0.7 Basophils (%) (Auto) 1.0 Neutrophils # (Auto) 4.6 Lymphocytes # (Auto) 1.0 Monocytes # (Auto) 0.7 Eosinophils # (Auto) 0.0 Basophils # (Auto) 0.1 CBC Comment DIFF FINAL Differential Comment Prothrombin Time 11.4 Prothromb Time International Ratio 1.0 Activated Partial Thromboplast Time 25.0 Blood Urea Nitrogen 11 Creatinine 0.81 Random Glucose 95 Total Protein 6.8 Albumin 3.7 Calcium Level 8.0 Magnesium Level 1.5 Alkaline Phosphatase 91 Aspartate Amino Transf (AST/SGOT) 27 Alanine Aminotransferase (ALT/SGPT) 20 Total Bilirubin 1.1 Sodium Level 142 Potassium Level 3.3 Chloride Level 106 Carbon Dioxide Level 23.7 Anion Gap 12 Estimat Glomerular Filtration Rate 96 Total Creatine Kinase 185 Creatine Kinase MB 1.4 Troponin I LESS THAN 0.02 Lipase 210 Ethyl Alcohol Level 59 Result Diagram: 05/11/17 0855 05/11/17 0855 Imaging Last 48 hours Impressions Chest X-Ray 05/11/17 0847 Signed Impressions: Service Date/Time: Thursday, May 11, 2017 09:11 - CONCLUSION: 1. No acute findings. The area of atelectasis in the left lung base appears improved compared to previous. Jai Tang MD Caprini VTE Risk Assessment Caprini VTE Risk Assessment: No/Low Risk (score <= 1) Caprini Risk Assessment Model Point Value = 1 Point Value = 2 Point Value = 3 Point Value = 5 Age 41-60 Minor surgery BMI > 25 kg/m2 Swollen legs Varicose veins or History of unexplained or recurrent spontaneous Oral contraceptives or hormone replacement Sepsis (< 1 month) Serious lung disease, including pneumonia (< 1 month) Abnormal pulmonary function Acute myocardial infarction Congestive heart failure (< 1 month) History of inflammatory bowel disease Medical patient at bed rest Age 61-74 Arthroscopic surgery Major open surgery (> 45 min) Laparoscopic surgery (> 45 min) Malignancy Confined to bed (> 72 hours) Immobilizing plaster cast Central venous access Age >= 75 History of VTE Family history of VTE Factor V Leiden Prothrombin [id number] Lupus anticoagulant Anticardiolipin antibodies Elevated serum homocysteine Heparin-induced thrombocytopenia Other congenital or acquired thrombophilia Stroke (< 1 month) Elective arthroplasty Hip, pelvis, or leg fracture Acute spinal cord injury (< 1 month) Prophylaxis Regimen Total Risk Factor Score Risk Level Prophylaxis Regimen 0-1 Low Early ambulation 2 Moderate Order ONE of the following: *Sequential Compression Device (SCD) *Heparin 5000 units SQ BID 3-4 Higher Order ONE of the following medications: *Heparin 5000 units SQ TID *Enoxaparin/Lovenox 40 mg SQ daily (WT < 150 kg, CrCl > 30 mL/min) *Enoxaparin/Lovenox 30 mg SQ daily (WT < 150 kg, CrCl > 10-29 mL/min) *Enoxaparin/Lovenox 30 mg SQ BID (WT < 150 kg, CrCl > 30 mL/min) AND/OR *Sequential Compression Device (SCD) 5 or more Highest Order ONE of the following medications: *Heparin 5000 units SQ TID (Preferred with Epidurals) *Enoxaparin/Lovenox 40 mg SQ daily (WT < 150 kg, CrCl > 30 mL/min) *Enoxaparin/Lovenox 30 mg SQ daily (WT < 150 kg, CrCl > 10-29 mL/min) *Enoxaparin/Lovenox 30 mg SQ BID (WT < 150 kg, CrCl > 30 mL/min) AND *Sequential Compression Device (SCD) Assessment and Plan Assessment and Plan Patient presents with chest pain and alcohol withdrawal. Will admit for ACS rule out and admit to inpatient for alcohol withdrawal protocol. Problem List: (1) Chest pain ICD Codes: R07.9 - Chest pain, unspecified Status: Resolved Plan: Atypical chest pain ACS workup to include: Troponins 3 (initial troponin less than 0.02) Serial EKGs - Initial EKG with first-degree block, left bundle branch block and tachycardia - unchanged from previous EKGs -Morphine when necessary for chest pain -Oxygen as needed -Nitrates are contraindicated given this patient's allergy to nitroglycerin -Aspirin given in emergency department -Continue patient's home medication of metoprolol, lisinopril, baby aspirin -Started atorvastatin 10 mg by mouth daily Echocardiogram performed on 04/19/17 - Normal left ventricular size. Upper normal wall thickness. The left ventricular systolic function is hyperdynamic with an estimated EF in the range of 65-70%. Normal wall motion (2) Alcohol withdrawal ICD Codes: F10.239 - Alcohol dependence with withdrawal, unspecified Status: Acute Plan: - CIWA protocol - Rally pack - Consider beginning clonidine if patient remains hypertensive and agitated (3) HTN (hypertension) ICD Codes: I10 - Essential (primary) hypertension Status: Chronic Plan: Placed back on home metoprolol and lisinopril - Consider adding clonidine given agitation due to alcohol withdrawal ACS workup as above (4) Paroxysmal atrial fibrillation ICD Codes: I48.0 - Paroxysmal atrial fibrillation Status: Acute Plan: Patient previously evaluated for paroxysmal atrial fibrillation Currently in sinus tachycardia based on EKG Rate control with metoprolol Restart eliquis, patient was discharged on this on 04/19/17 - Consult case management for assistance of medications on discharge Physician Certification 2 Midnight Certification Type: Admission for Inpatient Services Order for Inpatient Services The services are ordered in accordance with Medicare regulations or non- Medicare payer requirements, as applicable. In the case of services not specified as inpatient-only, they are appropriately provided as inpatient services in accordance with the 2-midnight benchmark. Estimated LOS (days): 2 2 days is the estimated time the patient will need to remain in the hospital, assuming treatment plan goals are met and no additional complications. Post-Hospital Plan: Not yet determined Problem Qualifiers (1) Chest pain: Qualified Codes: R07.9 - Chest pain, unspecified (2) Alcohol withdrawal: Qualified Codes: F10.230 - Alcohol dependence with withdrawal, uncomplicated (3) HTN (hypertension): Qualified Codes: I10 - Essential (primary) hypertension Erick Mendez MD May 11, 2017 14:09
[2017-05-11 16:00] VITALS: BP 191/102; PULSE 110; RESP 20; TEMP 97.6; O2SAT 98
[2017-05-11] MEDS: FOLIC ACID 1 MG TAB PO SCH (16:31)
[2017-05-11] MEDS: MULTIVITAMINS/MINERALS THERAPEUTIC TAB PO SCH (16:31)
[2017-05-11] MEDS: METOPROLOL TARTRATE 50 MG TAB PO SCH (16:31)
[2017-05-11] MEDS: cloNIDine HCL 0.1 MG TAB PO SCH ×2 (16:31→20:05)
[2017-05-11] MEDS ORDERED: POTASSIUM CHLORIDE 10 MEQ CONTROLLED RELEASE TAB PO ONE (16:45)
[2017-05-11 18:00] VITALS: BP 184/101
[2017-05-11] MEDS ORDERED: NALOXONE HCL 0.4 MG/ML AMP IV PUSH PRN (18:00)
[2017-05-11 18:44] LABS: CREATINE KINASE 140 U/L (39-308)
[2017-05-11 20:00] VITALS: BP 168/111; PULSE 83; RESP 19; TEMP 98.1; O2SAT 97
[2017-05-11] MEDS ORDERED: oxyCODONE/ACETAMINOPHEN 5 MG/325 MG TAB PO PRN (20:00)
[2017-05-11] MEDS: oxyCODONE/ACETAMINOPHEN 10 MG/325 MG TAB PO PRN (20:01)
[2017-05-11] MEDS: LISINOPRIL 20 MG TAB PO SCH (20:02)
[2017-05-11] MEDS: SODIUM CHLORIDE 0.9% FLUSH 10 ML FLUSH IV FLUSH SCH (20:02)
[2017-05-11] MEDS: ATORVASTATIN 10 MG TAB PO SCH (20:02)
[2017-05-11] MEDS ORDERED: APIXABAN 5 MG TABLET PO SCH (21:00)
--- NOTE | 2017-05-11 21:25 | EKG ---
Date Performed: 05/11/2017 Time Performed: 19:43:03 PTAGE: 61 years EKG: Sinus rhythm NONSPECIFIC ST ABNORMALITY ABNORMAL ECG PREVIOUS TRACING : 05/11/2017 08.26 Compared to previous tracing, left bundle branch block is n o longer present. DOCTOR: Huy Almaguer Interpretating Date/Time 05/11/2017 21:24:30
[2017-05-11] MEDS ORDERED: cloNIDine HCL 0.1 MG TAB PO PRN (23:15)
[2017-05-12] VITALS (10 sets, daily range): BP systolic 120–172; BP diastolic 58–102; PULSE 66–89; RESP 19–20; TEMP 97.3–98.3; O2SAT 96–97
[2017-05-12] MEDS: oxyCODONE/ACETAMINOPHEN 10 MG/325 MG TAB PO PRN ×6 (00:03→23:54)
[2017-05-12 01:11] LABS: ALT (GPT) 20 U/L (12-78); AST (GOT) 20 U/L (15-37)
[2017-05-12 01:21] LABS: ALKALINE PHOSPHATASE 74 U/L (45-117); CREATINE KINASE 127 U/L (39-308); HDL CHOLESTEROL 82.9 MG/DL (40.0-60.0); INDIRECT BILIRUBIN 0.9 MG/DL (0.0-0.8); LDL CHOLESTEROL 9 MG/DL (0-99); TOTAL BILIRUBIN ADULT 1.3 MG/DL (0.2-1.0)
[2017-05-12] MEDS: LORazepam 2 MG/ML VIAL IV PUSH PRN ×4 (01:45→18:45)
[2017-05-12 04:18] LABS: AUTOMATED NEUTROPHIL # 3.5 TH/MM3 (1.8-7.7); BASOPHIL % 0.8 % (0.0-2.0); EOSINOPHIL # 0.2 TH/MM3 (0-0.4); EOSINOPHIL % 3.4 % (0.0-4.0); HEMATOCRIT 37.6 % (39.0-51.0); HEMO FLAGS DIFF FINAL; LYMPH % 26.1 % (9.0-44.0); LYMPHOCYTE # 1.6 TH/MM3 (1.0-4.8); MEAN CELL VOLUME 97.7 FL (80.0-100.0); MEAN CORPUSCULAR HEMOGLOBIN 33.6 PG (27.0-34.0); MEAN CORPUSCULAR HGB CONC 34.4 % (32.0-36.0); MONO % 13.4 % (0.0-8.0); NEUT % 56.3 % (16.0-70.0); PLATELET COUNT 131 TH/MM3 (150-450); RED BLOOD COUNT 3.84 MIL/MM3 (4.50-5.90); RED CELL DISTRIBUTION WIDTH 14.2 % (11.6-17.2); WHITE BLOOD COUNT 6.3 TH/MM3 (4.0-11.0)
[2017-05-12 04:37] LABS: ANION GAP 5 MEQ/L (5-15); BICARBONATE 26.6 MEQ/L (21.0-32.0); BLOOD UREA NITROGEN 10 MG/DL (7-18); CHLORIDE 108 MEQ/L (98-107); GLOMERULAR FILTRATION RATE 124 ML/MIN (>89); POTASSIUM 3.5 MEQ/L (3.5-5.1); SODIUM (NA) 140 MEQ/L (136-145)
[2017-05-12] MEDS: cloNIDine HCL 0.1 MG TAB PO SCH ×3 (05:40→21:59)
--- NOTE | 2017-05-12 08:42 | HHI.FPPN ---
Subjective Remarks Pt seen and examined this morning. He endorses chest pain, relieved completely by Percocet. Breathing is stable, he endorses left upper quadrant abdominal pain , he is able to point to this area with one finger, reproduced with palpation. He was able to eat the majority of his breakfast, but reports decreased appetite. Breathing is stable. He reports that he is very interested in learning more about alcohol cessation resources. (Manny Sanchez MD R3) Objective Vitals Vital Signs Date Time Temp Pulse Resp B/P (MAP) Pulse Ox O2 Delivery O2 Flow Rate FiO2 05/12/17 04:00 98.2 69 20 120/58 (78) 96 05/12/17 02:50 97 21 05/12/17 00:00 98.1 70 19 136/90 (105) 97 05/11/17 20:15 Room Air 05/11/17 20:15 Room Air 05/11/17 20:00 98.1 83 19 168/111 (130) 97 05/11/17 18:00 184/101 (128) 05/11/17 16:00 97.6 110 20 191/102 (131) 98 05/11/17 15:03 05/11/17 11:21 170/104 (126) 05/11/17 09:02 97 Room Air I/O 05/11/17 05/11/17 05/11/17 05/12/17 05/12/17 05/12/17 07:00 15:00 23:00 07:00 15:00 23:00 Intake Total 950 ml Balance 950 ml Intake Oral 950 ml # Voids 4 (Manny Sanchez MD R3) Result Diagram: 05/12/17 03405/12/17 0340 Objective Remarks GENERAL: This is a well-nourished, well-developed patient, uncomfortable and asking for pain medications. SKIN: No rashes, ecchymoses or lesions. Cool and dry. HEENT: Atraumatic. Normocephalic. Significant injection of left eye, no significant drainage appreciated. Normal appearance of right eye. ENT: Nose without bleeding, purulent drainage or septal hematoma. Throat without erythema, tonsillar hypertrophy or exudate. Uvula midline. Airway patent. NECK: Trachea midline. No JVD or lymphadenopathy. Supple, nontender, no meningeal signs. CARDIOVASCULAR: Regular rate and regular rhythm without murmurs, gallops, or rubs. RESPIRATORY: Clear to auscultation. Breath sounds equal bilaterally. No wheezes , rales, or rhonchi. GASTROINTESTINAL: Abdomen soft, point tenderness over left upper quadrant, reproducible. No hepato-splenomegaly, or palpable masses. MUSCULOSKELETAL: Extremities without clubbing, cyanosis, or edema. No joint tenderness, effusion, or edema noted. No calf tenderness. NEUROLOGICAL: Awake and alert. Cranial nerves II through XII grossly intact. Motor and sensory grossly within normal limits. Mild resting tremor. Normal speech. (Manny Sanchez MD R3) A/P Assessment and Plan Patient presents with chest pain and alcohol withdrawal. ACS ruled out. CIWA protocol ordered for alcohol withdrawal. Discharge Planning Anticipate discharge once patient is medically stable and withdrawal symptoms are controlled. Likely tomorrow. SDW Dr. Mendez, Dr. Islas, Dr. Taylor, Dr. Leung (Manny Sanchez MD R3) Attending Attestation Pt. examined and case discussed with resident physicians. I have read the above note and agree with the assessment and plan as discussed with me. I was involved in all medical decision making for this patient. Erick Mendez MD (Erick Mendez MD) Problem List: (1) Chest pain ICD Codes: R07.9 - Chest pain, unspecified Status: Resolved Plan: ACS ruled out -Most recent EKG with resolution of left bundle branch block. No ischemic changes appreciated. Troponin trended, less than 0.02--> 0.022. -Oxygen as needed -Nitrates are contraindicated given this patient's allergy to nitroglycerin -Aspirin given in emergency department; continue home medication baby aspirin everyday -Continue patient's home medication of metoprolol, lisinopril -Atorvastatin 10 mg by mouth daily (2) Alcohol withdrawal ICD Codes: F10.239 - Alcohol dependence with withdrawal, unspecified Status: Acute Plan: -CIWA protocol -Patient has required 10 mg of Ativan since admission -Rally pack -Continue to monitor -Seizure precautions -Case management consulted to provide patient with resources for alcohol cessation (3) Conjunctivitis ICD Codes: H10.9 - Unspecified conjunctivitis Plan: -Ciprofloxacin ophthalmic drops in left eye Q6hrs Impression: On exam patient with significant injection of the left eye, concern for conjunctivitis. Pt endorses recent contact lens use. (4) Paroxysmal atrial fibrillation ICD Codes: I48.0 - Paroxysmal atrial fibrillation Status: Acute Plan: Pt with h/o paroxysmal atrial fibrillation currently in sinus tachycardia based on EKG. Most recent EKG showing normal sinus rhythm, no H with fibrillation noted. -Continue home medication of metoprolol -Eliquis was discontinued (5) HTN (hypertension) ICD Codes: I10 - Essential (primary) hypertension Status: Chronic Plan: -Continue home medication of metoprolol and lisinopril and amlodipine and baby aspirin -Clonidine 0.1 mg by mouth every 8 hours (6) FEN/PPX Plan: Fluids: None, patient tolerating by mouth Electrolytes: Continue to monitor and replace as needed Nutrition: Heart healthy diet DVT PPX: Lovenox (Manny Sanchez MD R3) Problem Qualifiers (1) Chest pain: Qualified Codes: R07.9 - Chest pain, unspecified (2) Alcohol withdrawal: Qualified Codes: F10.230 - Alcohol dependence with withdrawal, uncomplicated (3) HTN (hypertension): Qualified Codes: I10 - Essential (primary) hypertension Manny Sanchez MD R3 May 12, 2017 08:42 Erick Mendez MD May 12, 2017 15:58
[2017-05-12 09:10] LABS: CALCIUM-PROTEIN CORRECTED 8.8 MG/DL (8.5-10.1)
[2017-05-12] MEDS: FOLIC ACID 1 MG TAB PO SCH (09:21)
[2017-05-12] MEDS: SODIUM CHLORIDE 0.9% FLUSH 10 ML FLUSH IV FLUSH SCH ×2 (09:21→20:21)
[2017-05-12] MEDS: ASPIRIN EC 81 MG TABEC PO SCH (09:21)
[2017-05-12] MEDS: METOPROLOL TARTRATE 50 MG TAB PO SCH ×3 (09:21→18:31)
[2017-05-12] MEDS: MULTIVITAMINS/MINERALS THERAPEUTIC TAB PO SCH (09:22)
[2017-05-12] MEDS: THIAMINE HCL 100 MG TAB PO SCH (09:22)
[2017-05-12] MEDS: LISINOPRIL 20 MG TAB PO SCH ×2 (09:22→20:20)
[2017-05-12] MEDS ORDERED: CIPROFLOXACIN 0.3% OPTH SOLN 2.5 ML BTL LEFT EYE SCH (10:00)
[2017-05-12 11:42] LABS: HEMOGLOBIN A1b 1.7 %; HEMOGLOBIN Ao 85.3 %; HEMOGLOBIN LA1C 2.1 %; HEMOGLOBIN P3 3.7 %
[2017-05-12 13:51] LABS: CALCIUM-PROTEIN CORRECTED 8.6 MG/DL (8.5-10.1)
[2017-05-12] MEDS ORDERED: ENOXAPARIN SODIUM 40 MG/0.4 ML SYRINGE SQ SCH (14:00)
[2017-05-12] MEDS: CIPROFLOXACIN 0.3% OPTH SOLN 2.5 ML BTL LEFT EYE SCH ×2 (18:30→21:58)
[2017-05-12] MEDS: ATORVASTATIN 10 MG TAB PO SCH (20:20)
[2017-05-12] MEDS: LORazepam 1 MG TAB PO PRN (21:59)
[2017-05-13] VITALS: BP 133/90; PULSE 74; RESP 20; TEMP 97.4; O2SAT 98
[2017-05-13] MEDS: LORazepam 1 MG TAB PO PRN ×2 (02:30→06:04)
[2017-05-13 04:00] VITALS: BP 127/88; PULSE 71; RESP 16; TEMP 98.3; O2SAT 97
[2017-05-13] MEDS: CIPROFLOXACIN 0.3% OPTH SOLN 2.5 ML BTL LEFT EYE SCH (04:07)
[2017-05-13] MEDS: oxyCODONE/ACETAMINOPHEN 10 MG/325 MG TAB PO PRN ×2 (04:07→09:03)
[2017-05-13] MEDS: cloNIDine HCL 0.1 MG TAB PO SCH (06:04)
[2017-05-13 07:56] LABS: AUTOMATED NEUTROPHIL # 2.8 TH/MM3 (1.8-7.7); BASOPHIL % 0.6 % (0.0-2.0); EOSINOPHIL # 0.2 TH/MM3 (0-0.4); EOSINOPHIL % 3.5 % (0.0-4.0); HEMATOCRIT 39.2 % (39.0-51.0); HEMO FLAGS DIFF FINAL; LYMPH % 29.4 % (9.0-44.0); LYMPHOCYTE # 1.5 TH/MM3 (1.0-4.8); MEAN CELL VOLUME 98.5 FL (80.0-100.0); MEAN CORPUSCULAR HEMOGLOBIN 33.9 PG (27.0-34.0); MEAN CORPUSCULAR HGB CONC 34.4 % (32.0-36.0); MONO % 11.6 % (0.0-8.0); NEUT % 54.9 % (16.0-70.0); PLATELET COUNT 119 TH/MM3 (150-450); RED BLOOD COUNT 3.98 MIL/MM3 (4.50-5.90); RED CELL DISTRIBUTION WIDTH 13.9 % (11.6-17.2); WHITE BLOOD COUNT 5.1 TH/MM3 (4.0-11.0)
[2017-05-13 08:00] VITALS: BP 136/87; PULSE 65; RESP 18; TEMP 98.3; O2SAT 97
[2017-05-13 08:15] LABS: ALT (GPT) 17 U/L (12-78); ANION GAP 7 MEQ/L (5-15); AST (GOT) 26 U/L (15-37); BICARBONATE 26.5 MEQ/L (21.0-32.0); BLOOD UREA NITROGEN 10 MG/DL (7-18); CHLORIDE 105 MEQ/L (98-107); GLOMERULAR FILTRATION RATE 126 ML/MIN (>89); POTASSIUM 3.5 MEQ/L (3.5-5.1); SODIUM (NA) 138 MEQ/L (136-145)
[2017-05-13 08:18] LABS: ALKALINE PHOSPHATASE 72 U/L (45-117); TOTAL BILIRUBIN ADULT 0.7 MG/DL (0.2-1.0)
[2017-05-13] MEDS: SODIUM CHLORIDE 0.9% FLUSH 10 ML FLUSH IV FLUSH SCH (09:01)
[2017-05-13] MEDS: ASPIRIN EC 81 MG TABEC PO SCH (09:01)
[2017-05-13] MEDS: FOLIC ACID 1 MG TAB PO SCH (09:01)
[2017-05-13] MEDS: THIAMINE HCL 100 MG TAB PO SCH (09:02)
[2017-05-13] MEDS: METOPROLOL TARTRATE 50 MG TAB PO SCH (09:02)
[2017-05-13] MEDS: LISINOPRIL 20 MG TAB PO SCH (09:02)
--- NOTE | 2017-05-13 09:18 | HHI.FPPN ---
Subjective Remarks No acute events overnight. Except for some mild HTN, AFVSS overnight. Patient reports that he still has some LUQ, left lower rib pain, that is TTP and worse with deep inspiration. He c/o tremulousness. He also c/o right eye discomfort in addition to left eye discomfort, redness, discharge. He also requested to speak with clergy. Discussed discharge planning with patient. (Kenneth Islas MD R2) Objective Vitals Vital Signs Date Time Temp Pulse Resp B/P (MAP) Pulse Ox O2 Delivery O2 Flow Rate FiO2 05/13/17 08:00 98.3 65 18 136/87 (103) 97 05/13/17 04:00 98.3 71 16 127/88 (101) 97 05/13/17 04:00 Room Air 05/13/17 00:00 97.4 74 20 133/90 (104) 98 05/13/17 00:00 Room Air 05/12/17 20:00 97.8 80 20 162/96 (118) 96 05/12/17 20:00 Room Air 05/12/17 19:59 76 05/12/17 18:44 171/93 (119) 05/12/17 15:59 18 05/12/17 14:51 66 05/12/17 14:24 97 Room Air 05/12/17 14:00 98.3 75 20 149/102 (118) 97 05/12/17 12:00 97.3 70 20 172/100 (124) 97 05/12/17 10:57 21 I/O 05/12/17 05/12/17 05/12/17 05/13/17 05/13/17 05/13/17 07:00 15:00 23:00 07:00 15:00 23:00 Intake Total 950 ml 960 ml Balance 950 ml 960 ml Intake Oral 950 ml 960 ml # Voids 4 3 # Bowel Movements 2 (Kenneth Islas MD R2) Result Diagram: 05/13/17 0650 05/13/17 0650 Imaging Last Impressions Chest X-Ray 05/11/17 0847 Signed Impressions: Service Date/Time: Thursday, May 11, 2017 09:11 - CONCLUSION: 1. No acute findings. The area of atelectasis in the left lung base appears improved compared to previous. Jai Tang MD Objective Remarks GENERAL: This is a well-nourished, well-developed patient, uncomfortable and asking for pain medications. SKIN: No rashes, ecchymoses or lesions. Cool and dry. HEENT: Atraumatic. Normocephalic. Significant injection of left eye, with purulent crust from drainage. Mild injection of right eye. ENT: Nose without bleeding, purulent drainage or septal hematoma. Throat without erythema, tonsillar hypertrophy or exudate. Uvula midline. Airway patent. NECK: Trachea midline. No JVD or lymphadenopathy. Supple, nontender, no meningeal signs. CARDIOVASCULAR: Regular rate and regular rhythm without murmurs, gallops, or rubs. RESPIRATORY: Clear to auscultation. Breath sounds equal bilaterally. No wheezes , rales, or rhonchi. GASTROINTESTINAL: Abdomen soft, point tenderness over left upper quadrant, reproducible. No hepato-splenomegaly, or palpable masses. MUSCULOSKELETAL: Extremities without clubbing, cyanosis, or edema. No joint tenderness, effusion, or edema noted. No calf tenderness. NEUROLOGICAL: Awake and alert. Cranial nerves II through XII grossly intact. Motor and sensory grossly within normal limits. Normal speech. (Kenneth Islas MD R2) A/P Assessment and Plan Patient presents with chest pain and alcohol withdrawal. ACS ruled out. [facility] protocol ordered for alcohol withdrawal. Discharge Planning Anticipate discharge once patient is medically stable and withdrawal symptoms are controlled. Likely today. SDW Dr. Mendez (Kenneth Islas MD R2) Attending Attestation Pt. examined and case discussed with resident physicians. I have read the above note and agree with the assessment and plan as discussed with me. I was involved in all medical decision making for this patient. Erick Mendez MD (Erick Mendez MD) Problem List: (1) Chest pain ICD Codes: R07.9 - Chest pain, unspecified Status: Resolved Plan: ACS ruled out -Most recent EKG with resolution of left bundle branch block. No ischemic changes appreciated. Troponin trended, less than 0.02--> 0.022. -Oxygen as needed -Nitrates are contraindicated given this patient's allergy to nitroglycerin -Aspirin given in emergency department; continue home medication baby aspirin everyday -Continue patient's home medication of metoprolol, lisinopril -Atorvastatin 10 mg by mouth daily (2) Alcohol withdrawal ICD Codes: F10.239 - Alcohol dependence with withdrawal, unspecified Status: Acute Plan: -CIWA protocol -Patient has required 10 mg of Ativan since admission; plan to d/c with Ativan -Rally pack -Continue to monitor -Seizure precautions -Case management consulted to provide patient with resources for alcohol cessation -clonidine tid (3) Conjunctivitis ICD Codes: H10.9 - Unspecified conjunctivitis Plan: -Ciprofloxacin ophthalmic drops in both eyes Q6hrs Impression: On exam patient with significant injection of the left eye with purulent discharge, concern for bacterial conjunctivitis. Right eye is red today. Pt endorses recent contact lens use. (4) Paroxysmal atrial fibrillation ICD Codes: I48.0 - Paroxysmal atrial fibrillation Status: Acute Plan: Pt with h/o paroxysmal atrial fibrillation currently in sinus tachycardia based on EKG. Most recent EKG showing normal sinus rhythm, no atrial fibrillation noted. -Continue home medication of metoprolol -Eliquis was discontinued given CHADVASC score of 1 (5) HTN (hypertension) ICD Codes: I10 - Essential (primary) hypertension Status: Chronic Plan: -Continue home medication of metoprolol and lisinopril and amlodipine and baby aspirin -Clonidine 0.1 mg by mouth every 8 hours (6) FEN/PPX Plan: Fluids: None, patient tolerating by mouth Electrolytes: Continue to monitor and replace as needed Nutrition: Heart healthy diet DVT PPX: Lovenox (Kenneth Islas MD R2) Problem Qualifiers (1) Chest pain: Qualified Codes: R07.9 - Chest pain, unspecified (2) Alcohol withdrawal: Qualified Codes: F10.230 - Alcohol dependence with withdrawal, uncomplicated (3) HTN (hypertension): Qualified Codes: I10 - Essential (primary) hypertension Kenneth Islas MD R2 May 13, 2017 09:18 Erick Mendez MD May 13, 2017 19:45
[2017-05-13] MEDS ORDERED: ASPI-99 PO (09:31)
[2017-05-13] MEDS ORDERED: LISI-515 PO (09:31)
[2017-05-13] MEDS ORDERED: CIPR0.3S2 EACH EYE (09:31)
[2017-05-13] MEDS ORDERED: LORA-474 PO (09:31)
[2017-05-13] MEDS ORDERED: LIPI10TA PO (09:31)
[2017-05-13] MEDS ORDERED: OXYC1TAB63 PO (09:31)
[2017-05-13] MEDS ORDERED: METO50TA PO (09:31)
[2017-05-13] MEDS ORDERED: CLON.1 PO (09:31)
[2017-05-13] MEDS ORDERED: AMLO10 PO (09:31)
[2017-05-13] MEDS: MULTIVITAMINS/MINERALS THERAPEUTIC TAB PO SCH (09:46)
[2017-05-13] MEDS ORDERED: CIPROFLOXACIN 0.3% OPTH SOLN 2.5 ML BTL EACH EYE SCH (10:00)
[2017-05-13] MEDS ORDERED: oxyCODONE/ACETAMINOPHEN 5 MG/325 MG TAB PO PRN (10:45)
[2017-05-13] MEDS ORDERED: oxyCODONE/ACETAMINOPHEN 10 MG/325 MG TAB PO PRN (10:45)
--- NOTE | 2017-05-13 10:53 | HHI.DCPOC ---
Discharge Care Plan Diagnosis: (1) Alcohol withdrawal (2) Chest pain Goals to Promote Your Health * To prevent worsening of your condition and complications, please take medications as prescribed and keep trying to get help. Please do not drink any alcohol. * To maintain your health at the optimal level, please follow up with a doctor. Directions to Meet Your Goals Take your medications as prescribed Follow your dietary instruction Follow activity as directed Keep your appointments as scheduled Take your immunizations and boosters as scheduled If your symptoms worsen call your PCP, if no PCP go to Urgent Care Center or Emergency Room Smoking is Dangerous to Your Health. Avoid second hand smoke Call the 24-hour hour crisis hotline for domestic abuse at Kenneth Islas MD R2 May 13, 2017 10:53
[2017-05-13 13:05] VITALS: PULSE 68
== END 2017-05-13 13:07 | disposition home or self-care (01) | DRG 897 ==
LOC: NEPE 08:11 → NEDA 11:31 → N04A 14:40 → N04B 14:50 → N04A 14:51
PROVIDERS: ADMIT Family Medicine; ATTEND Family Medicine
DX: F10.230 Alcohol dependence with withdrawal, uncomplicated (principal); R07.89 Other chest pain; I11.0 Hypertensive heart disease with heart failure; I50.9 Heart failure, unspecified; J98.11 Atelectasis; F32.9 Major depressive disorder, single episode, unspecified; F41.9 Anxiety disorder, unspecified; M19.90 Unspecified osteoarthritis, unspecified site; Z86.718 Personal history of other venous thrombosis and embolism; Z79.01 Long term (current) use of anticoagulants; Z79.82 Long term (current) use of aspirin; J44.9 Chronic obstructive pulmonary disease, unspecified; Z87.442 Personal history of urinary calculi; F17.290 Nicotine dependence, other tobacco product, uncomplicated; R00.0 Tachycardia, unspecified; Y90.2 Blood alcohol level of 40-59 mg/100 ml; I48.0 Paroxysmal atrial fibrillation; H10.9 Unspecified conjunctivitis
CPT/HCPCS: 71010; 80048; 80053; 80061; 80076; 80307; 82550; 82552; 83036; 83690; 83735; 84155; 84443; 84484; 85025; 85610; 85730; 93005; 96374; 99285; J1650; J2060; J2270

== ENCOUNTER 2017-05-27 19:29 | Emergency (ER) | payer MEDICAID ==
[~2017-05-27] VITALS: Ht 188 cm; Wt 97.7 kg
[~2017-05-27 19:29] MED LIST changes: +CIPR0.3S2 EACH EYE; +CLON.1 PO; +LIPI10TA PO; +OXYC1TAB63 PO
[2017-05-27 20:47] VITALS: BP 180/100; PULSE 85; RESP 16; TEMP 98.6; O2SAT 97
[2017-05-27] MEDS ORDERED: DILT60TA PO (21:00)
[2017-05-27] MEDS ORDERED: CARV3.12 PO (21:00)
[2017-05-27] MEDS ORDERED: AMIO200T PO (21:00)
[2017-05-27] MEDS ORDERED: PANT40TA3 PO (21:00)
[2017-05-27] MEDS ORDERED: IBUPROFEN 800 MG TAB PO ONE (21:15)
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
[2017-05-27] MEDS ORDERED: IBUP800T23 PO (22:04)
[2017-05-27] MEDS ORDERED: CYCL1TAB29 PO (22:04)
[2017-05-27 22:34] VITALS: BP 172/89; TEMP 98.3
--- NOTE | 2017-05-28 22:37 | EKG ---
Date Performed: 05/27/2017 Time Performed: 20:50:26 PTAGE: 62 years EKG: Sinus rhythm INTERMITTENT LBBB NORMAL ECG PREVIOUS TRACING : 05/15/2017 18.28 Compared to the previous tracing intermittent LBBB present DOCTOR: Blu Rojo Interpretating Date/Time 05/28/2017 22:36:10
== END 2017-05-27 22:37 | disposition home or self-care (01) ==
LOC: NEPD 19:29
DX: S20.219A Contusion of unspecified front wall of thorax, initial encounter (principal); M54.2 Cervicalgia; W03.XXXA Other fall on same level due to collision with another person, initial encounter; Y93.01 Activity, walking, marching and hiking; Y92.480 Sidewalk as the place of occurrence of the external cause
CPT/HCPCS: 72040; 84484; 93005; 99285

== ENCOUNTER 2017-06-12 08:59 | Emergency (ER) | payer MEDICAID ==
[~2017-06-12] VITALS: Ht 188 cm; Wt 92.0 kg
[~2017-06-12 08:59] MED LIST changes: +AMIO200T PO; -AMLO10 PO; -ASPI-99 PO; +ASPI1TAB56 PO; +CARV3.12 PO; -CIPR0.3S2 EACH EYE; -CLON.1 PO; +CYCL10TA PO; +DILT60TA PO; +IBUP1TAB7 PO; -LIPI10TA PO; -LISI-515 PO; -LORA-474 PO; -METO50TA PO; -OXYC1TAB63 PO; +PANT40TA3 PO
[2017-06-12 09:05] VITALS: BP 131/92; PULSE 100; RESP 18; TEMP 98; O2SAT 98
[2017-06-12] MEDS ORDERED: LISI-515 PO (09:11)
[2017-06-12] MEDS ORDERED: FOLI800T PO (09:11)
[2017-06-12] MEDS ORDERED: chlordiazePOXIDE 25 MG CAP PO STA (09:24)
[2017-06-12] MEDS ORDERED: FAMOTIDINE 20 MG TAB PO ONE (09:30)
[2017-06-12] MEDS ORDERED: ACETAMINOPHEN 500 MG CPLT PO ONE (09:30)
[2017-06-12 09:36] LABS: AUTOMATED NEUTROPHIL # 3.1 TH/MM3 (1.8-7.7); BASOPHIL % 0.4 % (0.0-2.0); EOSINOPHIL # 0.1 TH/MM3 (0-0.4); EOSINOPHIL % 2.3 % (0.0-4.0); HEMATOCRIT 42.5 % (39.0-51.0); HEMO FLAGS DIFF FINAL; LYMPH % 26.3 % (9.0-44.0); LYMPHOCYTE # 1.5 TH/MM3 (1.0-4.8); MEAN CELL VOLUME 99.4 FL (80.0-100.0); MEAN CORPUSCULAR HGB CONC 35.2 % (32.0-36.0); PLATELET COUNT 209 TH/MM3 (150-450); RED BLOOD COUNT 4.28 MIL/MM3 (4.50-5.90); RED CELL DISTRIBUTION WIDTH 14.9 % (11.6-17.2); WHITE BLOOD COUNT 5.7 TH/MM3 (4.0-11.0)
[2017-06-12 09:49] LABS: ALT (GPT) 22 U/L (12-78); ANION GAP 8 MEQ/L (5-15); AST (GOT) 23 U/L (15-37); BICARBONATE 25.1 MEQ/L (21.0-32.0); BLOOD UREA NITROGEN 11 MG/DL (7-18); CHLORIDE 105 MEQ/L (98-107); GLOMERULAR FILTRATION RATE 100 ML/MIN (>89); POTASSIUM 3.6 MEQ/L (3.5-5.1); SODIUM (NA) 138 MEQ/L (136-145)
[2017-06-12 09:54] LABS: ALKALINE PHOSPHATASE 81 U/L (45-117); TOTAL BILIRUBIN ADULT 0.8 MG/DL (0.2-1.0)
[2017-06-12 10:21] VITALS: BP 131/96; PULSE 98; RESP 18; TEMP 97.8; O2SAT 98
--- NOTE | 2017-06-12 10:28 | PD ---
HPI Chief Complaint: Chest Pain Time Seen by Provider: 09:15 Travel History International Travel<30 days: No Contact w/Intl Traveler<30days: No Traveled to known affect area: No History of Present Illness HPI This 62-year-old man, noncompliant, alcoholic, here in the ED with chest pain and dizziness. Patient describes pounding chest pain with pressure. Also described feeling dizzy while is walking. Last drank yesterday. His a history of A. fib, is not on blood thinners. As well as hypertension COPD. States he gets chest pain frequently now. Dizziness is fairly new. History Past Medical History Narrative Medical Alcoholism A. fib, on blood thinners Hypertension COPD Tetanus Vaccination: < 5 Years Social History Alcohol Use: Yes (1-2 PINTS DAILY VODKA) Tobacco Use: Yes (occasional cigar.) Allergies-Medications (Allergen,Severity, Reaction): Coded Allergies: Sulfa (Sulfonamide Antibiotics) (Verified Allergy, Intermediate, hives, ) cephalexin (Verified Allergy, Intermediate, hives, 06/12/17) nitroglycerin (Verified Allergy, Intermediate, RASH, 06/12/17) penicillin G (Verified Allergy, Intermediate, hives, 06/12/17) Reported Meds & Prescriptions Reported Meds & Active Scripts Active Adult Aspirin EC Low Strength (Aspirin) 81 Mg Tabec 81 Mg PO DAILY Reported Lisinopril 20 Mg Tab 20 Mg PO DAILY Folic Acid 0.8 Mg Tab 1,000 Mcg PO DAILY Amiodarone (Amiodarone HCl) 200 Mg Tab 200 Mg PO BID Carvedilol 3.125 Mg Tab 3.125 Mg PO BID Diltiazem (Diltiazem HCl) 60 Mg Tab 60 Mg PO QID Review of Systems Except as stated in HPI: all other systems reviewed are Neg Physical Exam Narrative GENERAL: 62-year-old man, little bit disheveled, nontoxic. SKIN: Focused skin assessment warm/dry. HEAD: Atraumatic. Normocephalic. EYES: Pupils equal and round. No scleral icterus. No injection or drainage. ENT: No nasal bleeding or discharge. Mucous membranes pink and moist. NECK: Trachea midline. No JVD. CARDIOVASCULAR: Regular rate and rhythm. No murmur appreciated. RESPIRATORY: No accessory muscle use. Clear to auscultation. Breath sounds equal bilaterally. GASTROINTESTINAL: Abdomen soft, non-tender, nondistended. Hepatic and splenic margins not palpable. MUSCULOSKELETAL: No obvious deformities. No clubbing. No cyanosis. No edema. NEUROLOGICAL: Awake and alert. No obvious cranial nerve deficits. Motor grossly within normal limits. Some nystagmus, some dysmetria bilaterally. No other focal or lateralizing symptoms. PSYCHIATRIC: Appropriate mood and affect; insight and judgment normal. Data Data Last Documented VS Vital Signs Date Time Temp Pulse Resp B/P (MAP) Pulse Ox O2 Delivery O2 Flow Rate FiO2 06/12/17 09:05 100 18 98 Room Air 06/12/17 09:05 98.0 131/92 (105) Orders Orders Electrocardiogram (06/12/17 ) Complete Blood Count With Diff (06/12/17 09:18) Comprehensive Metabolic Panel (06/12/17 09:18) Troponin I (06/12/17 09:18) Iv Access Insert/Monitor (06/12/17 09:18) Famotidine (Pepcid) (06/12/17 09:30) Chlordiazepoxide (Librium) (06/12/17 09:24) Acetaminophen (Tylenol) (06/12/17 09:30) Meclizine (Antivert) (06/12/17 10:30) Labs Laboratory Tests Test 06/12/17 09:20 White Blood Count 5.7 TH/MM3 Red Blood Count 4.28 MIL/MM3 Hemoglobin 15.0 GM/DL Hematocrit 42.5 % Mean Corpuscular Volume 99.4 FL Mean Corpuscular Hemoglobin 35.0 PG Mean Corpuscular Hemoglobin Concent 35.2 % Red Cell Distribution Width 14.9 % Platelet Count 209 TH/MM3 Mean Platelet Volume 7.3 FL Neutrophils (%) (Auto) 54.0 % Lymphocytes (%) (Auto) 26.3 % Monocytes (%) (Auto) 17.0 % Eosinophils (%) (Auto) 2.3 % Basophils (%) (Auto) 0.4 % Neutrophils # (Auto) 3.1 TH/MM3 Lymphocytes # (Auto) 1.5 TH/MM3 Monocytes # (Auto) 1.0 TH/MM3 Eosinophils # (Auto) 0.1 TH/MM3 Basophils # (Auto) 0.0 TH/MM3 CBC Comment DIFF FINAL Differential Comment Blood Urea Nitrogen 11 MG/DL Creatinine 0.78 MG/DL Random Glucose 88 MG/DL Total Protein 6.9 GM/DL Albumin 3.6 GM/DL Calcium Level 8.6 MG/DL Alkaline Phosphatase 81 U/L Aspartate Amino Transf (AST/SGOT) 23 U/L Alanine Aminotransferase (ALT/SGPT) 22 U/L Total Bilirubin 0.8 MG/DL Sodium Level 138 MEQ/L Potassium Level 3.6 MEQ/L Chloride Level 105 MEQ/L Carbon Dioxide Level 25.1 MEQ/L Anion Gap 8 MEQ/L Estimat Glomerular Filtration Rate 100 ML/MIN Troponin I LESS THAN 0.02 NG/ML MDM Medical Decision Making Medical Screen Exam Complete: Yes Emergency Medical Condition: Yes Interpretation(s) My review of EKG: Sinus tachycardia rate of 101, normal axis, normal intervals, no acute disease. LABS: CBC is unremarkable. CMP is unremarkable. Troponins negative. Differential Diagnosis Intoxication, encephalopathy, Warnicke's, A. fib, CVA, other Narrative Course Is a 62-year-old male presents emergency Department with chest pain. Multiple previous admissions in about evaluations for chest pain. History of alcoholism. Noncompliant with treatment for his A. fib. He also has dizziness. He has some nystagmus and is symmetric. Admits to alcohol use. High risk for stroke given noncompliance of A. fib treatment. Would not be a good candidate for anticoagulation due to risk of falls and ongoing alcohol abuse. At this point I think symptomatic treatment is appropriate. I recommend against hospital admission given lack of utility given his chronic noncompliance. Diagnosis Primary Impression: Alcohol abuse Additional Impression: Dizziness Additional Instructions: Avoid alcohol use. Follow-up with her primary doctor in 2-4 days if you're not feeling completely well. Return to the emergency department for any new or worsening symptoms. Med/Other Pt SpecificInfo: Prescription(s) given Disposition: DISCHARGE HOME Condition: Stable Kentrell Valencia MD Jun 12, 2017 10:28
[2017-06-12 10:30] VITALS: RESP 17
[2017-06-12] MEDS ORDERED: MECLIZINE HCL 25 MG TAB PO ONE (10:30)
--- NOTE | 2017-06-12 12:33 | RADRPT ---
EXAM DATE/TIME: 06/12/2017 11:57 [facility] COMPARISON: CT BRAIN W/O CONTRAST, April 29, 2017, 20:49. MRI BRAIN W/O CONTRAST, February 15, 2017, 13:50. INDICATIONS : CVA. MEDICAL HISTORY : Hypertension. Congestive heart failure. SURGICAL HISTORY : Inguinal hernia repair. Tonsillectomy. Left leg surgery. ENCOUNTER: Initial ACUITY: 1 day PAIN SCORE: 0/10 LOCATION: head TECHNIQUE: Multiplanar, multisequence MRI of the brain was performed without contrast. FINDINGS: CEREBRUM: There is mild cerebral atrophy. Ventricles are normal in size given the degree of atrophy. No eviden ce of midline shift, mass lesion, hemorrhage or acute infarction. No extraaxial fluid collections ar e seen. The pituitary gland and suprasellar cistern are normal in configuration. WHITE MATTER: There is stable mild periventricular white matter and subcortical white matter signal change. POSTERIOR FOSSA: The cerebellum and brainstem demonstrate no acute finding. The 4th ventricle is midline. The cerebel lopontine angle is unremarkable. The cerebellar tonsils are normal in position. DIFFUSION IMAGING: No focal areas of restricted diffusion are seen. No evidence of acute infarction. EXTRACRANIAL: The visualized portions of the orbits and paranasal sinuses are unremarkable. CONCLUSION: 1. No acute intracranial abnormality is identified. There are no findings to indicate recent ischemia . 2. Stable chronic changes including mild cerebral atrophy and chronic white matter changes. Jung Scales MD on June 12, 2017 at 12:29 Board Certified Radiologist. This report was verified electronically.
[2017-06-12] MEDS ORDERED: MECL-62 PO (13:44)
[2017-06-12 13:50] VITALS: BP 130/78; TEMP 97.8
--- NOTE | 2017-06-12 17:17 | EKG ---
Date Performed: 06/12/2017 Time Performed: 09:11:25 PTAGE: 62 years EKG: SINUS TACHYCARDIA NONSPECIFIC ST & T-WAVE ABNORMALITY WHEN COMPARED TO PRIOR EKG THE PATIEN T IS NOW TACHYCARDIC AND NO LEFT BUNDLE BRANCH BLOCK IS PRESENT. ABNORMAL RHYTHM ECG PREVIOUS TRACING : 05/27/2017 20.50 DOCTOR: Natalia Sampson Interpretating Date/Time 06/12/2017 17:15:56
== END 2017-06-12 13:50 | disposition home or self-care (01) ==
LOC: NEPC 08:59
DX: F10.10 Alcohol abuse, uncomplicated (principal); R42 Dizziness and giddiness; I10 Essential (primary) hypertension; R00.0 Tachycardia, unspecified; I48.91 Unspecified atrial fibrillation; J44.9 Chronic obstructive pulmonary disease, unspecified; Z79.82 Long term (current) use of aspirin
CPT/HCPCS: 70551; 80053; 80307; 84484; 85025; 93005

== ENCOUNTER 2017-06-26 21:41 | Emergency (ER) | payer SELFPAY ==
[~2017-06-26] VITALS: Ht 188 cm; Wt 96.0 kg
[~2017-06-26 21:41] MED LIST changes: -CYCL10TA PO; +FOLI800T PO; -IBUP1TAB7 PO; +LISI-515 PO; +MECL-62 PO; -PANT40TA3 PO
[2017-06-26 21:57] VITALS: BP 154/98; PULSE 96; RESP 18; O2SAT 98
--- NOTE | 2017-06-26 23:11 | PD ---
HPI Chief Complaint: Chest Pain Time Seen by Provider: 22:51 Travel History International Travel<30 days: No Contact w/Intl Traveler<30days: No Traveled to known affect area: No History of Present Illness HPI 62-year-old male complains of chest pain. Patient has history alcohol abuse. Patient has been to the emergency room in the past for chest pain complaint. Patient states that his son having chest pain today. Patient states the pain is substernal pressure with radiation to left arm. Patient denies palpitation. Patient denies nausea or diaphoresis. Patient states that the pain is not associated with exertion. Workup has been negative in the past. Patient has history of hypertension, paroxysmal atrial fibrillation. Patient denies any history of diabetes, hyperlipidemia. Patient has history COPD, depression, seizure, anxiety. Patient states that last alkyl consumption was yesterday. Patient states that he fell today. Patient denies loss of consciousness. Patient denies any headache or neck pain. Patient denies any back pain. Patient denies any focal weakness or numbness of extremity. PFSH Past Medical History Hx Anticoagulant Therapy: Yes (ASA ) Arthritis: Yes (bursitis tendonitis) Asthma: No Atrial Fibrillation: Yes Autoimmune Disease: No Blood Disorders: No Anxiety: Yes Depression: Yes Heart Rhythm Problems: Yes (LBBB) Cancer: No Cardiac Catheterization: No Cardiovascular Problems: Yes High Cholesterol: No Chemotherapy: No Chest Pain: Yes Congestive Heart Failure: Yes COPD: Yes Cerebrovascular Accident: No Diabetes: No Diminished Hearing: No Endocrine: No Gastrointestinal Disorders: No Genitourinary: Yes Headaches: No Hypertension: Yes Immune Disorder: No Implanted Vascular Access Dvce: No Kidney Stones: Yes (reports passed stones) Musculoskeletal: Yes (many broken bones in the past) Neurologic: Yes (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) Psychiatric: Yes Reproductive: No Respiratory: Yes (COPD) Immunizations Current: Yes Migraines: No Radiation Therapy: No Seizures: Yes Shingles: Yes Sleep Apnea: No Ulcer: No Tetanus Vaccination: < 5 Years Influenza Vaccination: No Past Surgical History Abdominal Surgery: Yes (HERNIA REPAIR) Cardiac Surgery: No Coronary Artery Bypass Graft: No Ear Surgery: No Endocrine Surgery: No Eye Surgery: No Genitourinary Surgery: No Gynecologic Surgery: No Neurologic Surgery: No Oral Surgery: No Thoracic Surgery: No Tonsillectomy: Yes Other Surgery: Yes Family History Family Myocardial Infarction: Yes (maternal) Social History Alcohol Use: Yes (1-2 PINTS DAILY VODKA) Tobacco Use: Yes (occasional cigar.) Substance Use: No (PT DENIES ) Allergies-Medications (Allergen,Severity, Reaction): Coded Allergies: Sulfa (Sulfonamide Antibiotics) (Verified Allergy, Intermediate, hives, ) cephalexin (Verified Allergy, Intermediate, hives, 06/26/17) nitroglycerin (Verified Allergy, Intermediate, RASH, 06/26/17) penicillin G (Verified Allergy, Intermediate, hives, 06/26/17) Reported Meds & Prescriptions Reported Meds & Active Scripts Active Meclizine (Meclizine HCl) 25 Mg Tab 25 Mg PO TID PRN Adult Aspirin EC Low Strength (Aspirin) 81 Mg Tabec 81 Mg PO DAILY Reported Lisinopril 20 Mg Tab 20 Mg PO DAILY Folic Acid 0.8 Mg Tab 1,000 Mcg PO DAILY Amiodarone (Amiodarone HCl) 200 Mg Tab 200 Mg PO BID Carvedilol 3.125 Mg Tab 3.125 Mg PO BID Diltiazem (Diltiazem HCl) 60 Mg Tab 60 Mg PO QID Review of Systems General / Constitutional: No: Fever Eyes: No: Visual changes HENT: No: Headaches Cardiovascular: Positive: Chest Pain or Discomfort Respiratory: No: Shortness of Breath Gastrointestinal: No: Abdominal Pain Genitourinary: No: Dysuria Musculoskeletal: No: Pain Skin: No Rash Neurologic: No: Weakness Psychiatric: No: Depression Endocrine: No: Polydipsia Hematologic/Lymphatic: No: Easy Bruising Physical Exam Narrative GENERAL: Well-nourished, well-developed patient. SKIN: Focused skin assessment warm/dry. HEAD: Normocephalic. EYES: No scleral icterus. No injection or drainage. NECK: Supple, trachea midline. No JVD or lymphadenopathy. CARDIOVASCULAR: Regular rate and rhythm without murmurs, gallops, or rubs. RESPIRATORY: Breath sounds equal bilaterally. No accessory muscle use. GASTROINTESTINAL: Abdomen soft, non-tender, nondistended. MUSCULOSKELETAL: No cyanosis, or edema. BACK: Nontender without obvious deformity. No CVA tenderness. Neurologic exam normal. Data Data Last Documented VS Vital Signs Date Time Temp Pulse Resp B/P (MAP) Pulse Ox O2 Delivery O2 Flow Rate FiO2 06/26/17 23:19 92 16 99 Room Air Orders Orders Electrocardiogram (06/26/17 23:00) Complete Blood Count With Diff (06/26/17:00) Comprehensive Metabolic Panel (06/26/17:) Creatine Kinase (Cpk) (06/26/17:00) Troponin I (06/26/17:) Prothrombin Time / Inr (Pt) (06/26/17:) Act Partial Throm Time (Ptt) (06/26/17:00) Lipase (06/26/17:) Chest, Single Ap (06/26/17) Iv Access Insert/Monitor (06/26/17:) Ecg Monitoring (06/26/17:) Oximetry (06/26/17:) Drug Screen, Random Urine (06/26/17:) Alcohol (Ethanol) (06/26/17:00) Labs Laboratory Tests Test 06/26/17 23:15 06/26/17 23:25 White Blood Count 7.0 TH/MM3 Red Blood Count 4.77 MIL/MM3 Hemoglobin 16.3 GM/DL Hematocrit 48.6 % Mean Corpuscular Volume 102.0 FL Mean Corpuscular Hemoglobin 34.2 PG Mean Corpuscular Hemoglobin Concent 33.5 % Red Cell Distribution Width 16.2 % Platelet Count 222 TH/MM3 Mean Platelet Volume 6.9 FL Neutrophils (%) (Auto) 56.5 % Lymphocytes (%) (Auto) 28.5 % Monocytes (%) (Auto) 11.9 % Eosinophils (%) (Auto) 1.8 % Basophils (%) (Auto) 1.3 % Neutrophils # (Auto) 4.0 TH/MM3 Lymphocytes # (Auto) 2.0 TH/MM3 Monocytes # (Auto) 0.8 TH/MM3 Eosinophils # (Auto) 0.1 TH/MM3 Basophils # (Auto) 0.1 TH/MM3 CBC Comment DIFF FINAL Differential Comment Prothrombin Time 10.1 SEC Prothromb Time International Ratio 0.9 RATIO Activated Partial Thromboplast Time 24.9 SEC Blood Urea Nitrogen 18 MG/DL Creatinine 1.06 MG/DL Random Glucose 87 MG/DL Total Protein 7.8 GM/DL Albumin 3.7 GM/DL Calcium Level 8.3 MG/DL Alkaline Phosphatase 89 U/L Aspartate Amino Transf (AST/SGOT) 44 U/L Alanine Aminotransferase (ALT/SGPT) 33 U/L Total Bilirubin 0.3 MG/DL Sodium Level 147 MEQ/L Potassium Level 4.4 MEQ/L Chloride Level 111 MEQ/L Carbon Dioxide Level 23.4 MEQ/L Anion Gap 13 MEQ/L Estimat Glomerular Filtration Rate 70 ML/MIN Total Creatine Kinase 109 U/L Troponin I LESS THAN 0.02 NG/ML Lipase 314 U/L Ethyl Alcohol Level 373 MG/DL Urine Opiates Screen NEG Urine Barbiturates Screen NEG Urine Amphetamines Screen NEG Urine Benzodiazepines Screen POS Urine Cocaine Screen NEG Urine Cannabinoids Screen NEG MDM Medical Decision Making Medical Screen Exam Complete: Yes Emergency Medical Condition: Yes Interpretation(s) 12 44 AM. EKG shows sinus rhythm nonspecific ST-T wave change. Chest x-ray shows no acute pathology. Multiple healed left-sided rib fractures. CBC with hemoglobin 16.3. MCV 102.0. Sodium 147. Cardiac enzymes are normal. Alcohol 373. Urine Drug screen positive for benzodiazepine Differential Diagnosis Differential diagnosis including angina, VT, PE, pneumothorax, EtOH abuse. Narrative Course 62-year-old male with chest pain. History of EtOH abuse. Patient has been in the emergency room and admitted in the past for chest pain. Workup has been negative. Diagnosis Primary Impression: Chest pain Qualified Codes: R07.9 - Chest pain, unspecified Additional Impression: Alcohol intoxication Qualified Codes: F10.920 - Alcohol use, unspecified with intoxication, uncomplicated Patient Instructions: General Instructions Additional Instructions: Advised [facility]. Follow-up with personal physician. Return if increasing chest pain or shortness of breath. Med/Other Pt SpecificInfo: No Change to Meds Disposition: 01 DISCHARGE HOME Condition: Stable Petr Alexander MD Jun 26, 2017 23:11
[2017-06-26 23:19] VITALS: PULSE 92; RESP 16; O2SAT 99
--- NOTE | 2017-06-26 23:24 | RADRPT ---
EXAM DATE/TIME: 06/26/2017 23:05 [facility] COMPARISON: CHEST SINGLE AP, May 11, 2017, 9:11. INDICATIONS : Shortness of breath. MEDICAL HISTORY : Chronic obstructive pulmonary disease. Deep venous thrombosis. Congestive heart failure. SURGICAL HISTORY : None. ENCOUNTER: Initial ACUITY: 1 day PAIN SCORE: 0/10 LOCATION: Bilateral chest FINDINGS: A single view of the chest demonstrates the lungs to be symmetrically aerated without evidence of mas s, infiltrate or effusion. The cardiomediastinal contours are unremarkable. Step-off from the 6 thro ugh 10th ribs I suspect are chronic fractures on the left.. CONCLUSION: Normal examination with multiple healed left-sided rib fractures. Kentrell Eubanks MD on June 26, 2017 at 23:21 Board Certified Radiologist. This report was verified electronically.
[2017-06-26 23:37] LABS: BASOPHIL # 0.1 TH/MM3 (0-0.2); BASOPHIL % 1.3 % (0.0-2.0); EOSINOPHIL # 0.1 TH/MM3 (0-0.4); EOSINOPHIL % 1.8 % (0.0-4.0); HEMATOCRIT 48.6 % (39.0-51.0); HEMO FLAGS DIFF FINAL; LYMPH % 28.5 % (9.0-44.0); MEAN CORPUSCULAR HEMOGLOBIN 34.2 PG (27.0-34.0); MEAN CORPUSCULAR HGB CONC 33.5 % (32.0-36.0); MONO % 11.9 % (0.0-8.0); NEUT % 56.5 % (16.0-70.0); PLATELET COUNT 222 TH/MM3 (150-450); RED BLOOD COUNT 4.77 MIL/MM3 (4.50-5.90); RED CELL DISTRIBUTION WIDTH 16.2 % (11.6-17.2)
[2017-06-26 23:44] LABS: APTT (PATIENT) 24.9 SEC (24.3-30.1); INTERNATIONAL NORMALIZED RATIO 0.9 RATIO; PROTHROMBIN TIME - PATIENT 10.1 SEC (9.8-11.6)
[2017-06-26 23:49] LABS: ALKALINE PHOSPHATASE 89 U/L (45-117); ALT (GPT) 33 U/L (12-78); ANION GAP 13 MEQ/L (5-15); AST (GOT) 44 U/L (15-37); BICARBONATE 23.4 MEQ/L (21.0-32.0); BLOOD UREA NITROGEN 18 MG/DL (7-18); CHLORIDE 111 MEQ/L (98-107); CREATINE KINASE 109 U/L (39-308); GLOMERULAR FILTRATION RATE 70 ML/MIN (>89); SODIUM (NA) 147 MEQ/L (136-145); TOTAL BILIRUBIN ADULT 0.3 MG/DL (0.2-1.0)
[2017-06-26 23:54] LABS: ALCOHOL 373 MG/DL (0-5); POTASSIUM 4.4 MEQ/L (3.5-5.1)
[2017-06-27 00:46] VITALS: BP 127/78; PULSE 97; RESP 16; O2SAT 95; O2SAT 96
[2017-06-27 05:20] VITALS: BP 120/81; PULSE 109; RESP 20; O2SAT 97
--- NOTE | 2017-06-27 18:54 | EKG ---
Date Performed: 06/26/2017 Time Performed: 22:41:33 PTAGE: 62 years EKG: Sinus rhythm NONSPECIFIC ST & T-WAVE ABNORMALITY BORDERLINE ECG Compared to prior tracing no significant change DOCTOR: Blu Rojo Interpretating Date/Time 06/27/2017 18:52:50
== END 2017-06-27 06:15 | disposition home or self-care (01) ==
LOC: NEPD 21:41
DX: R07.9 Chest pain, unspecified (principal); F10.129 Alcohol abuse with intoxication, unspecified; I48.0 Paroxysmal atrial fibrillation; R94.31 Abnormal electrocardiogram [ECG] [EKG]; J44.9 Chronic obstructive pulmonary disease, unspecified; F41.9 Anxiety disorder, unspecified; I11.0 Hypertensive heart disease with heart failure; I50.9 Heart failure, unspecified; R56.9 Unspecified convulsions
CPT/HCPCS: 71010; 80053; 80307; 82550; 83690; 84484; 85025; 85610; 85730; 93005; 99285

== ENCOUNTER 2017-08-02 19:28 | Inpatient (IN) | payer OTHER ==
[2017-08-02] VITALS (7 sets, daily range): BP systolic 77–97; BP diastolic 51–66; PULSE 149–153; RESP 14–20; TEMP 98.7–99.1; O2SAT 96–100
[~2017-08-02] VITALS: Ht 182.9 cm; Wt 93.5 kg
[~2017-08-02 19:28] MED LIST changes: +LACTATED RINGER'S 1000 ML INJ 2,000 ML IV ONE; +NORMOSOL R INJ 2,000 ML IV ONE; +PHENYLEPH/NS 1000 MCG/10 ML SYR IV ONE; +ROCURONIUM INJ 50 MG/5 ML SYRINGE IV PUSH ONE; +SODIUM CHLORID 0.9% 500 ML INJ 500 ML IV ONE
[2017-08-02] MEDS ORDERED: ceFAZolin 2 GM PREMIX 50 ML ONE (19:33)
[2017-08-02] MEDS ORDERED: DIPHTH/TETANUS/ACEL PERTUSSIS (BOOSTER) 0.5 ML VIAL/PFS IM ONE (19:33)
[2017-08-02] MEDS ORDERED: SUCCINYLCHOLINE CHLORIDE 200 MG/10 ML VIAL ONE (19:37)
[2017-08-02] MEDS ORDERED: ETOMIDATE 20 MG/10 ML VIAL ONE (19:37)
[2017-08-02] MEDS ORDERED: LIDOCAINE 1%/EPINEPHrine 1:100,000 SOLN 50 ML VIAL ONE (19:39)
[2017-08-02] MEDS ORDERED: DIGOXIN 0.5 MG/2 ML VIAL ONE (19:44)
[2017-08-02] MEDS ORDERED: MIDAZOLAM HCL 5 MG/ML VIAL (1 ML) ONE (19:50)
[2017-08-02] MEDS ORDERED: DILTIAZEM HCL 25 MG/5 ML VIAL ONE ×2 (19:55→20:55)
[2017-08-02 20:10] LABS: AUTOMATED NEUTROPHIL # 3.7 TH/MM3 (1.8-7.7); BASOPHIL # 0.1 TH/MM3 (0-0.2); BASOPHIL % 0.8 % (0.0-2.0); EOSINOPHIL # 0.1 TH/MM3 (0-0.4); HEMATOCRIT 42.2 % (39.0-51.0); HEMOGLOBIN 14.3 GM/DL (13.0-17.0); LYMPH % 40.6 % (9.0-44.0); LYMPHOCYTE # 3.4 TH/MM3 (1.0-4.8); MEAN CELL VOLUME 103.4 FL (80.0-100.0); MEAN CORPUSCULAR HGB CONC 33.8 % (32.0-36.0); MEAN PLATELET VOLUME 6.5 FL (7.0-11.0); MONO % 13.5 % (0.0-8.0); MONOCYTE # 1.1 TH/MM3 (0-0.9); NEUT % 44.1 % (16.0-70.0); PLATELET COUNT 235 TH/MM3 (150-450); RED BLOOD COUNT 4.08 MIL/MM3 (4.50-5.90); RED CELL DISTRIBUTION WIDTH 15.6 % (11.6-17.2); WHITE BLOOD COUNT 8.3 TH/MM3 (4.0-11.0)
[2017-08-02 20:12] LABS: INTERNATIONAL NORMALIZED RATIO 1.1 RATIO; PROTHROMBIN TIME - PATIENT 10.7 SEC (9.8-11.6)
[2017-08-02] MEDS ORDERED: PHENYLEPHRINE HCL 10 MG/ML VIAL ONE (20:14)
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
[2017-08-02] MEDS ORDERED: IOHEXOL 350 MG/ML 10 ML VIAL (for RAD DIAG) IVCONTRAST ONE (20:30)
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
[2017-08-02] MEDS ORDERED: ceFAZolin 2 GM PREMIX 50 ML IV STA (20:50)
[2017-08-02] MEDS ORDERED: SODIUM BICARBONATE 8.4% INJ 50 MEQ/50 ML SYR ONE ×2 (20:54→21:18)
[2017-08-02] MEDS ORDERED: AMIODARONE HCL 150 MG/3 ML VIAL ONE (20:57)
[2017-08-02] MEDS ORDERED: MIDAZOLAM HCL 5 MG/ML VIAL (1 ML) IV ONE (21:00)
[2017-08-02] MEDS ORDERED: DIGOXIN 0.5 MG/2 ML VIAL IV ONE (21:00)
[2017-08-02] MEDS ORDERED: DILTIAZEM HCL 25 MG/5 ML VIAL IV ONE (21:00)
[2017-08-02] MEDS ORDERED: ETOMIDATE 20 MG/10 ML VIAL IV PUSH ONE (21:00)
[2017-08-02] MEDS ORDERED: SUCCINYLCHOLINE CHLORIDE 100 MG/5 ML SYRINGE IV PUSH ONE (21:00)
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
[2017-08-02] MEDS ORDERED: Post-op Orders (for Pharmacy) XX ONE (21:45)
[2017-08-02] MEDS ORDERED: NALOXONE HCL 0.4 MG/ML AMP IV PUSH PRN (21:45)
[2017-08-02] MEDS ORDERED: PROPOFOL 1000 MG/100 ML INJ 100 ML IV PRN (21:45)
[2017-08-02] MEDS ORDERED: fentaNYL DRIP 250 ML IV PRN ×2 (21:45→22:30)
[2017-08-02] MEDS ORDERED: SODIUM CHLORIDE 0.9% FLUSH 10 ML FLUSH IV FLUSH PRN (21:45)
[2017-08-02] MEDS ORDERED: ONDANSETRON HCL 4 MG/2 ML VIAL IV PUSH PRN (21:45)
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
[2017-08-02] MEDS: METOPROLOL TARTRATE 5 MG/5 ML VIAL IV PUSH SCH (22:00)
[2017-08-02] MEDS: AMIODARONE INJ 450 MG in DEXTROSE 5% IN WATE(EXCEL) INJ 241 ML IV PRN ×2 (22:00)
[2017-08-02] MEDS ORDERED: AMIODARONE INJ 450 MG in DEXTROSE 5% IN WATE(EXCEL) INJ 241 ML IV PRN ×2 (22:23)
--- NOTE | 2017-08-02 22:43 | RADRPT ---
EXAM DATE/TIME: 08/02/2017 22:20 [facility] COMPARISON: CHEST SINGLE AP, August 02, 2017, 19:23. INDICATIONS : Post intubation. MEDICAL HISTORY : None. SURGICAL HISTORY : None. ENCOUNTER: Subsequent ACUITY: 1 day PAIN SCORE: Non-responsive. LOCATION: Bilateral chest FINDINGS: Endotracheal tube tip well above the atif. Gastric tube tip and side-port project within the stoma ch. Left chest drainage tube projects in the medial upper chest. Ramin-Freitas drain in the left up per quadrant. Some patchy areas of opacity in the left lung without focal consolidation. The right lung is clear. Tiny, 7 mm left apical pneumothorax. CONCLUSION: 1. Residual 7 mm apical pneumothorax. 2. Patchy areas of opacity in the left lung. Elmer Kamara MD on August 02, 2017 at 22:39 Board Certified Radiologist. This report was verified electronically.
[2017-08-02 22:54] LABS: HEMATOCRIT 33.5 % (39.0-51.0); HEMOGLOBIN 11.6 GM/DL (13.0-17.0); MEAN CELL VOLUME 102.8 FL (80.0-100.0); MEAN CORPUSCULAR HEMOGLOBIN 35.7 PG (27.0-34.0); MEAN CORPUSCULAR HGB CONC 34.7 % (32.0-36.0); MEAN PLATELET VOLUME 6.7 FL (7.0-11.0); PLATELET COUNT 185 TH/MM3 (150-450); RED BLOOD COUNT 3.25 MIL/MM3 (4.50-5.90); RED CELL DISTRIBUTION WIDTH 15.6 % (11.6-17.2); WHITE BLOOD COUNT 10.8 TH/MM3 (4.0-11.0)
[2017-08-02] MEDS ORDERED: SODIUM CHLOR 0.9% 250 ML INJ 250 ML IV ONE (23:00)
[2017-08-02] MEDS: MIDAZOLAM 100 MG/NS 100 ML DRIP Premix IV PRN (23:25)
[2017-08-02] MEDS: PANTOPRAZOLE SODIUM 40 MG VIAL IV PUSH SCH (23:31)
[2017-08-02] MEDS: metroNIDAZOLE 500 MG INJ 100 ML IV SCH (23:31)
[2017-08-02] MEDS: LACTATED RINGER'S 1000 ML INJ 1,000 ML IV SCH (23:39)
[2017-08-03] VITALS (20 sets, daily range): BP systolic 92–154; BP diastolic 50–94; PULSE 78–149; RESP 14–17; TEMP 98.2–100.9; O2SAT 98–100
[2017-08-03 00:07] LABS: BICARBONATE 26.6 MEQ/L (21.0-32.0); CALCIUM 6.5 MG/DL (8.5-10.1); CREATININE 0.89 MG/DL (0.60-1.30); MAGNESIUM 1.3 MG/DL (1.5-2.5); PHOSPHORUS 3.9 MG/DL (2.5-4.9)
[2017-08-03 00:09] LABS: INTERNATIONAL NORMALIZED RATIO 1.2 RATIO
[2017-08-03 00:11] LABS: PROTHROMBIN TIME - PATIENT 12.6 SEC (9.8-11.6)
[2017-08-03 00:14] LABS: TROPONIN I 0.13 NG/ML (0.02-0.05)
[2017-08-03 00:26] LABS: TOTAL PROTEIN 4.2 GM/DL (6.4-8.2)
[2017-08-03] MEDS ORDERED: CALCIUM CHLORIDE 10% SOLN 1 GRAM/10 ML SYR ONE (00:26)
[2017-08-03] MEDS ORDERED: CALCIUM CHLORIDE 10% SOLN 1 GRAM/10 ML SYR IV SCH (00:45)
[2017-08-03] MEDS ORDERED: CALCIUM CHLORIDE INJ 2 GM in SODIUM CHLORIDE 0.9% INJ 100 ML IV SCH (01:00)
[2017-08-03] MEDS: PROPOFOL 1000 MG/100 ML INJ 100 ML IV PRN ×2 (02:15→10:57)
[2017-08-03 03:01] LABS: AUTOMATED NEUTROPHIL # 7.8 TH/MM3 (1.8-7.7); BASOPHIL % 0.2 % (0.0-2.0); LYMPHOCYTE # 0.6 TH/MM3 (1.0-4.8); MEAN CELL VOLUME 92.2 FL (80.0-100.0); MEAN CORPUSCULAR HEMOGLOBIN 32.6 PG (27.0-34.0); MEAN CORPUSCULAR HGB CONC 35.4 % (32.0-36.0); MEAN PLATELET VOLUME 7.4 FL (7.0-11.0); MONO % 9.7 % (0.0-8.0); MONOCYTE # 0.9 TH/MM3 (0-0.9); NEUT % 84.1 % (16.0-70.0); PLATELET COUNT 132 TH/MM3 (150-450); RED BLOOD COUNT 3.69 MIL/MM3 (4.50-5.90); RED CELL DISTRIBUTION WIDTH 20.1 % (11.6-17.2); WHITE BLOOD COUNT 9.3 TH/MM3 (4.0-11.0)
[2017-08-03 03:18] LABS: ALBUMIN 2.6 GM/DL (3.4-5.0); CALCIUM 8.1 MG/DL (8.5-10.1); CREATININE 0.8 MG/DL (0.60-1.30); DIRECT BILIRUBIN ADULT 0.1 MG/DL (0.0-0.2); INDIRECT BILIRUBIN 0.6 MG/DL (0.0-0.8); TOTAL BILIRUBIN ADULT 0.7 MG/DL (0.2-1.0); TOTAL PROTEIN 5.1 GM/DL (6.4-8.2)
[2017-08-03 03:58] LABS: BANDS 39 % (0-6); LYMPHOCYTES 7 % (9-44); MONOCYTES 6 % (0-8); NEUTROPHIL # MANUAL DIFF 8.1 TH/MM3 (1.8-7.7); POLYS (SEG NEUTROPHILS) 48 % (16-70)
[2017-08-03] MEDS: METOPROLOL TARTRATE 5 MG/5 ML VIAL IV PUSH SCH ×4 (04:00→22:00)
[2017-08-03] MEDS ORDERED: MAGNESIUM SULFATE INJ 4 GM in SODIUM CHLORIDE 0.9% INJ 100 ML IV SCH (04:30)
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
[2017-08-03] MEDS: MIDAZOLAM 100 MG/NS 100 ML DRIP Premix IV PRN ×2 (06:29→16:24)
[2017-08-03] MEDS: metroNIDAZOLE 500 MG INJ 100 ML IV SCH ×2 (06:29→14:26)
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
[2017-08-03] MEDS: LACTATED RINGER'S 1000 ML INJ 1,000 ML IV SCH ×2 (07:40→16:23)
[2017-08-03] MEDS: MULTIVITAMIN TAB PO SCH (08:28)
[2017-08-03] MEDS: THIAMINE INJ 100 MG in SODIUM CHLORIDE 0.9% INJ 100 ML IV SCH (08:28)
[2017-08-03] MEDS: FOLIC ACID 1 MG TAB PO SCH (08:28)
[2017-08-03] MEDS: DOCUSATE SODIUM 100 MG/10 ML UDC PO SCH ×2 (08:28→20:36)
[2017-08-03] MEDS: CHLORHEXIDINE 0.12% (ORAL KIT) 15 ML CUP MT SCH ×2 (08:28→20:00)
[2017-08-03] MEDS: SODIUM CHLORIDE 0.9% FLUSH 10 ML FLUSH IV FLUSH SCH ×2 (08:28→20:36)
[2017-08-03] MEDS: AMIODARONE INJ 450 MG in DEXTROSE 5% IN WATE(EXCEL) INJ 241 ML IV PRN ×4 (08:30→23:33)
[2017-08-03] MEDS: RESP: ALBUTEROL 2.5 MG/IPRATROPIUM 0.5 MG NEB (SCH) NEB ×3 (08:33→20:19)
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
[2017-08-03] MEDS: fentaNYL DRIP 250 ML IV PRN (10:57)
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
[2017-08-03] MEDS: ARTIFICIAL TEARS OPTH SOLN 15 ML BTL EACH EYE SCH ×2 (13:39→22:00)
[2017-08-03 14:05] LABS: HEMATOCRIT 32.3 % (39.0-51.0); HEMOGLOBIN 11.1 GM/DL (13.0-17.0); MEAN CELL VOLUME 92.1 FL (80.0-100.0); MEAN CORPUSCULAR HEMOGLOBIN 31.6 PG (27.0-34.0); MEAN CORPUSCULAR HGB CONC 34.3 % (32.0-36.0); MEAN PLATELET VOLUME 7.3 FL (7.0-11.0); PLATELET COUNT 106 TH/MM3 (150-450); RED BLOOD COUNT 3.51 MIL/MM3 (4.50-5.90); RED CELL DISTRIBUTION WIDTH 20.9 % (11.6-17.2); WHITE BLOOD COUNT 9.8 TH/MM3 (4.0-11.0)
[2017-08-03 14:13] LABS: INTERNATIONAL NORMALIZED RATIO 1.1 RATIO; PROTHROMBIN TIME - PATIENT 10.9 SEC (9.8-11.6)
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
[2017-08-03 18:59] LABS: HEMATOCRIT 30.9 % (39.0-51.0); HEMOGLOBIN 11.3 GM/DL (13.0-17.0)
[2017-08-03] MEDS ORDERED: ALBUMIN 5% INJ 500 ML IV ONE (20:30)
[2017-08-03] MEDS: PANTOPRAZOLE SODIUM 40 MG VIAL IV PUSH SCH (23:53)
[2017-08-03] MEDS: ACETAMINOPHEN 325MG/HYDROcodone 7.5MG/15ML UDC PEG PRN (23:54)
[2017-08-04] VITALS (21 sets, daily range): BP systolic 94–130; BP diastolic 55–99; PULSE 67–108; RESP 14; TEMP 99.2–101.5; O2SAT 94–100
[2017-08-04] MEDS: fentaNYL DRIP 250 ML IV PRN ×3 (00:27→21:43)
[2017-08-04] MEDS ORDERED: LORazepam 2 MG TAB PO PRN (01:00)
[2017-08-04] MEDS ORDERED: FLUMAZENIL 0.5 MG/5 ML VIAL IV PUSH PRN (01:00)
[2017-08-04] MEDS ORDERED: LORazepam 1 MG TAB PO PRN (01:00)
[2017-08-04] MEDS: LORazepam 2 MG/ML VIAL IV PUSH PRN ×5 (02:00→21:48)
[2017-08-04] MEDS: RESP: ALBUTEROL 2.5 MG/IPRATROPIUM 0.5 MG NEB (SCH) NEB ×4 (02:47→20:15)
[2017-08-04] MEDS: LACTATED RINGER'S 1000 ML INJ 1,000 ML IV SCH (03:40)
[2017-08-04] MEDS: METOPROLOL TARTRATE 5 MG/5 ML VIAL IV PUSH SCH ×4 (03:55→21:03)
[2017-08-04] MEDS: MIDAZOLAM 100 MG/NS 100 ML DRIP Premix IV PRN ×3 (04:12→21:04)
[2017-08-04 04:55] LABS: AUTOMATED NEUTROPHIL # 8.3 TH/MM3 (1.8-7.7); BASOPHIL % 0.4 % (0.0-2.0); EOSINOPHIL # 0.1 TH/MM3 (0-0.4); EOSINOPHIL % 1.2 % (0.0-4.0); HEMATOCRIT 28.3 % (39.0-51.0); LYMPH % 9.9 % (9.0-44.0); MEAN CELL VOLUME 93.3 FL (80.0-100.0); MEAN CORPUSCULAR HEMOGLOBIN 32.9 PG (27.0-34.0); MEAN CORPUSCULAR HGB CONC 35.3 % (32.0-36.0); MONO % 10.7 % (0.0-8.0); MONOCYTE # 1.1 TH/MM3 (0-0.9); NEUT % 77.8 % (16.0-70.0); PLATELET COUNT 105 TH/MM3 (150-450); RED BLOOD COUNT 3.04 MIL/MM3 (4.50-5.90); RED CELL DISTRIBUTION WIDTH 20.6 % (11.6-17.2); WHITE BLOOD COUNT 10.6 TH/MM3 (4.0-11.0)
[2017-08-04] MEDS: ARTIFICIAL TEARS OPTH SOLN 15 ML BTL EACH EYE SCH ×3 (05:07→21:33)
[2017-08-04] MEDS: PROPOFOL 1000 MG/100 ML INJ 100 ML IV PRN ×3 (05:12→17:21)
[2017-08-04 05:18] LABS: ALBUMIN 2.4 GM/DL (3.4-5.0); BICARBONATE 28.5 MEQ/L (21.0-32.0); CALCIUM 7.1 MG/DL (8.5-10.1); CREATININE 0.85 MG/DL (0.60-1.30); MAGNESIUM 1.6 MG/DL (1.5-2.5)
[2017-08-04] MEDS: ACETAMINOPHEN 325MG/HYDROcodone 7.5MG/15ML UDC PEG PRN ×3 (05:18→21:49)
[2017-08-04 05:28] LABS: CALCIUM-PROTEIN CORRECTED 8.4 MG/DL (8.5-10.1); TOTAL BILIRUBIN ADULT 0.6 MG/DL (0.2-1.0); TOTAL PROTEIN 4.8 GM/DL (6.4-8.2)
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
[2017-08-04] MEDS: AMIODARONE INJ 450 MG in DEXTROSE 5% IN WATE(EXCEL) INJ 241 ML IV PRN ×4 (07:05→15:01)
[2017-08-04] MEDS: CHLORHEXIDINE 0.12% (ORAL KIT) 15 ML CUP MT SCH ×2 (08:00→20:00)
[2017-08-04] MEDS: MULTIVITAMIN TAB PO SCH (09:00)
[2017-08-04] MEDS: SODIUM CHLORIDE 0.9% FLUSH 10 ML FLUSH IV FLUSH SCH ×2 (09:00→21:00)
[2017-08-04] MEDS: DOCUSATE SODIUM 100 MG/10 ML UDC PO SCH ×2 (09:00→21:00)
[2017-08-04] MEDS: THIAMINE INJ 100 MG in SODIUM CHLORIDE 0.9% INJ 100 ML IV SCH (09:00)
[2017-08-04] MEDS: FOLIC ACID 1 MG TAB PO SCH (09:00)
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
[2017-08-04] MEDS ORDERED: fentaNYL 50 MCG/HR PATCH T-DERMAL SCH (10:00)
[2017-08-04] MEDS ORDERED: FUROSEMIDE 40 MG/4 ML VIAL IV PUSH ONE (10:00)
[2017-08-04] MEDS: POTASSIUM CHLORIDE 25 MEQ EFFERVESCENT TAB PO SCH (10:00)
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
--- NOTE | 2017-08-04 19:24 | MP ---
cc: MD RAIMUNDO,COLBY DATE OF SURGERY: 08/02/2017. PREOPERATIVE DIAGNOSIS: 1. Hemorrhagic shock. 2. Left hemopneumothorax. 3. Flail chest. 4. Grade 4 splenic laceration with active bleeding. POSTOPERATIVE DIAGNOSIS: 1. Hemorrhagic shock. 2. Left hemopneumothorax. 3. Flail chest. 4. Grade 4 splenic laceration with active bleeding. OPERATIVE PROCEDURE PERFORMED: 1. Exploratory laparotomy. 2. Emergency splenectomy. 3. Evacuation of hemoperitoneum. SURGEON: Colby Reyes M.D. ANESTHESIA: General. ESTIMATED BLOOD LOSS: About 200 cc and about one liter of blood in the abdomen when we entered. DESCRIPTION OF THE PROCEDURE IN DETAIL: The patient was prepped and draped in the usual fashion. A mid epigastric incision was made and the abdomen was entered. Bookwalter retractors were positioned. There was a large amount of blood in the abdomen, which was suctioned off and then the left upper quadrant was packed off with laps. Once this was done, the small bowel was retracted to the right and the appropriate retractors were placed to allow for visualization of the left upper quadrant better. The laps were now removed and the spleen was visualized. The spleen was actively bleeding from the lower pole and there was a large amount of blood around it. This was suctioned off and the spleen was grasped and the splenocolic and splenophrenic ligaments were cut sharply with Metzenbaum scissors as well as the splenorenal ligament and then the spleen was elevated into the incision while the left upper quadrant was packed with laps. The hilum of the spleen was now clamped with Grecia clamps, divided and then ligated with #0 Vicryl stick ties. The tail of the pancreas was examined and it appeared to be fine except for some contusion. Several more #0 Vicryl stick ties were placed and then some 2-0 Vicryl stick ties were placed into the bleeding short gastrics. Once this was controlled, several Liga-clips were placed and the area was nice and clean and dry. This was irrigated with saline. New laps were placed there and this was left for the time being. The liver was examined. The stomach was examined. The small bowel was run from the ligament of Treitz to the ileocecal valve and then the large bowel was examined. The patient had no other injuries except for small laceration of the liver which was cauterized and was of no clinical consequence. The diaphragm was examined. The diaphragm was intact and was bulging into the abdomen with breathing. No other injuries were noted. Once more the left upper quadrant was examined. Meticulous hemostasis was obtained with cautery and a few more 2-0 Vicryl for smaller tiny bleeders. Once this was done, an [place] hemostatic material was placed and then a #10 flat Ramin-Freitas drain placed in the left upper quadrant in the subphrenic space. The abdomen was now once more irrigated and then closed with #1 PDS loops and cristopher. The patient tolerated the procedure well and was taken from the operating room to the intensive care unit. Colby CLARK /9:50 PM /6:05 PM LISA
[2017-08-04] MEDS: PANTOPRAZOLE SODIUM 40 MG VIAL IV PUSH SCH (21:02)
[2017-08-05] VITALS (22 sets, daily range): BP systolic 93–142; BP diastolic 52–79; PULSE 70–98; RESP 14; TEMP 98–101.2; O2SAT 95–100
[2017-08-05] MEDS: PROPOFOL 1000 MG/100 ML INJ 100 ML IV PRN ×5 (00:12→19:05)
[2017-08-05] MEDS: LORazepam 2 MG/ML VIAL IV PUSH PRN ×5 (03:10→21:16)
[2017-08-05] MEDS: METOPROLOL TARTRATE 5 MG/5 ML VIAL IV PUSH SCH ×4 (03:50→21:14)
[2017-08-05] MEDS: RESP: ALBUTEROL 2.5 MG/IPRATROPIUM 0.5 MG NEB (SCH) NEB ×4 (04:14→20:07)
[2017-08-05 05:51] LABS: AUTOMATED NEUTROPHIL # 9.1 TH/MM3 (1.8-7.7); BASOPHIL # 0.1 TH/MM3 (0-0.2); BASOPHIL % 0.5 % (0.0-2.0); EOSINOPHIL # 0.3 TH/MM3 (0-0.4); EOSINOPHIL % 2.3 % (0.0-4.0); HEMATOCRIT 27.6 % (39.0-51.0); HEMOGLOBIN 9.4 GM/DL (13.0-17.0); LYMPH % 10.9 % (9.0-44.0); LYMPHOCYTE # 1.3 TH/MM3 (1.0-4.8); MEAN CELL VOLUME 94.6 FL (80.0-100.0); MEAN CORPUSCULAR HEMOGLOBIN 32.1 PG (27.0-34.0); MEAN CORPUSCULAR HGB CONC 33.9 % (32.0-36.0); MEAN PLATELET VOLUME 8.7 FL (7.0-11.0); MONO % 8.8 % (0.0-8.0); NEUT % 77.5 % (16.0-70.0); PLATELET COUNT 111 TH/MM3 (150-450); RED BLOOD COUNT 2.92 MIL/MM3 (4.50-5.90); RED CELL DISTRIBUTION WIDTH 19.9 % (11.6-17.2); WHITE BLOOD COUNT 11.8 TH/MM3 (4.0-11.0)
[2017-08-05] MEDS: ARTIFICIAL TEARS OPTH SOLN 15 ML BTL EACH EYE SCH ×3 (06:00→21:51)
[2017-08-05 06:08] LABS: BICARBONATE 28.3 MEQ/L (21.0-32.0); CALCIUM 7.1 MG/DL (8.5-10.1); CREATININE 0.9 MG/DL (0.60-1.30); MAGNESIUM 1.6 MG/DL (1.5-2.5)
[2017-08-05 06:12] LABS: CALCIUM-PROTEIN CORRECTED 8.3 MG/DL (8.5-10.1); TOTAL BILIRUBIN ADULT 0.6 MG/DL (0.2-1.0); TOTAL PROTEIN 4.9 GM/DL (6.4-8.2)
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
[2017-08-05] MEDS: AMIODARONE INJ 450 MG in DEXTROSE 5% IN WATE(EXCEL) INJ 241 ML IV PRN ×2 (06:43)
[2017-08-05 07:29] LABS: BANDS 4 % (0-6); CORRECTED NUCLEATED RBC 1 /100 WBC (0-0); LYMPHOCYTES 9 % (9-44); MONOCYTES 6 % (0-8); NUCLEATED RED BLOOD CELL 1 (0-0); POLYS (SEG NEUTROPHILS) 81 % (16-70)
[2017-08-05] MEDS: CHLORHEXIDINE 0.12% (ORAL KIT) 15 ML CUP MT SCH ×2 (08:19→20:00)
[2017-08-05] MEDS: DOCUSATE SODIUM 100 MG/10 ML UDC PO SCH ×2 (08:56→21:00)
[2017-08-05] MEDS: POTASSIUM CHLORIDE 25 MEQ EFFERVESCENT TAB PO SCH (08:57)
[2017-08-05] MEDS: SODIUM CHLORIDE 0.9% FLUSH 10 ML FLUSH IV FLUSH SCH ×2 (08:57→21:00)
[2017-08-05] MEDS: FOLIC ACID 1 MG TAB PO SCH (08:57)
[2017-08-05] MEDS: FUROSEMIDE 20 MG/2 ML VIAL IV PUSH SCH (08:57)
[2017-08-05] MEDS: MULTIVITAMIN TAB PO SCH (08:57)
[2017-08-05] MEDS: fentaNYL DRIP 250 ML IV PRN ×2 (09:03→19:05)
[2017-08-05] MEDS: LACTULOSE SYRUP 20 GM/30 ML CUP PO SCH (09:07)
[2017-08-05] MEDS: AMIODARONE 200 MG TAB PO SCH ×2 (09:07→21:00)
[2017-08-05] MEDS: THIAMINE INJ 100 MG in SODIUM CHLORIDE 0.9% INJ 100 ML IV SCH (09:07)
[2017-08-05] MEDS: MAGNESIUM HYDROXIDE SUSP 30 ML CUP PO SCH ×2 (09:07→21:00)
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
[2017-08-05] MEDS: MAGNESIUM SULFATE 1 GM PREMIX 100 ML IV SCH ×2 (17:36→18:39)
[2017-08-05] MEDS ORDERED: SODIUM CHLORIDE 0.9% IV ONE (18:00)
[2017-08-05] MEDS ORDERED: POTASSIUM CHLOR 20 MEQ PREMIX 100 ML IV ONE (18:00)
[2017-08-05] MEDS ORDERED: POTASSIUM CHLORIDE INJ 20 MEQ in SODIUM CHLORIDE 0.9% INJ 100 ML IV ONE (18:00)
[2017-08-05] MEDS ORDERED: POTASSIUM CHLORIDE IV ONE (18:00)
[2017-08-05 20:10] LABS: MAGNESIUM 1.6 MG/DL (1.5-2.5)
[2017-08-05] MEDS ORDERED: MAGNESIUM SULFATE 4 GM PREMIX 100 ML IV ONE (20:45)
[2017-08-05] MEDS ORDERED: MAGNESIUM SULFATE 4 GM/NS 100 ML IV ONE ×2 (21:00)
[2017-08-05] MEDS: PANTOPRAZOLE SODIUM 40 MG VIAL IV PUSH SCH (21:45)
[2017-08-06] VITALS (17 sets, daily range): BP systolic 86–126; BP diastolic 52–73; PULSE 60–104; RESP 14–16; TEMP 98.2–103.7; O2SAT 95–100
[2017-08-06] MEDS: PROPOFOL 1000 MG/100 ML INJ 100 ML IV PRN (00:16)
[2017-08-06] MEDS: LORazepam 2 MG/ML VIAL IV PUSH PRN ×5 (00:18→20:44)
[2017-08-06] MEDS: ACETAMINOPHEN 325MG/HYDROcodone 7.5MG/15ML UDC PEG PRN ×3 (00:18→20:45)
[2017-08-06] MEDS: RESP: ALBUTEROL 2.5 MG/IPRATROPIUM 0.5 MG NEB (SCH) NEB ×4 (03:25→20:10)
[2017-08-06] MEDS: METOPROLOL TARTRATE 5 MG/5 ML VIAL IV PUSH SCH ×4 (03:38→22:00)
--- NOTE | 2017-08-06 04:58 | RADRPT ---
EXAM DATE/TIME: 08/06/2017 03:52 [facility] COMPARISON: CHEST SINGLE AP, August 05, 2017, 3:36. INDICATIONS : Shortness of breath, possible pulmonary disease. MEDICAL HISTORY : None. SURGICAL HISTORY : None. ENCOUNTER: Subsequent ACUITY: 1 week PAIN SCORE: Non-responsive. LOCATION: Bilateral chest FINDINGS: Multiple rib fractures are again seen on the left. ET tube, and NG tube have not changed. Chest tube is present on the left side. No definite pneumothorax is seen for technique. Left basilar opacity is present may be due to a combination of consolidation and or pleural effusion. CONCLUSION: Left basilar opacity is present may be due to a combination of consolidation and or pleural effusion. Jason Gong MD on August 06, 2017 at 4:56 Board Certified Radiologist. This report was verified electronically.
[2017-08-06] MEDS: ARTIFICIAL TEARS OPTH SOLN 15 ML BTL EACH EYE SCH ×3 (05:13→22:00)
[2017-08-06 05:30] LABS: AUTOMATED NEUTROPHIL # 7.5 TH/MM3 (1.8-7.7); BASOPHIL # 0.1 TH/MM3 (0-0.2); BASOPHIL % 0.5 % (0.0-2.0); EOSINOPHIL # 0.3 TH/MM3 (0-0.4); EOSINOPHIL % 2.8 % (0.0-4.0); HEMATOCRIT 28.8 % (39.0-51.0); HEMOGLOBIN 9.7 GM/DL (13.0-17.0); LYMPH % 11.7 % (9.0-44.0); LYMPHOCYTE # 1.2 TH/MM3 (1.0-4.8); MEAN CELL VOLUME 95.4 FL (80.0-100.0); MEAN CORPUSCULAR HEMOGLOBIN 31.9 PG (27.0-34.0); MEAN CORPUSCULAR HGB CONC 33.5 % (32.0-36.0); MONO % 12.8 % (0.0-8.0); MONOCYTE # 1.3 TH/MM3 (0-0.9); NEUT % 72.2 % (16.0-70.0); PLATELET COUNT 144 TH/MM3 (150-450); RED BLOOD COUNT 3.02 MIL/MM3 (4.50-5.90); RED CELL DISTRIBUTION WIDTH 19.4 % (11.6-17.2); WHITE BLOOD COUNT 10.3 TH/MM3 (4.0-11.0)
[2017-08-06 06:13] LABS: ALBUMIN 1.8 GM/DL (3.4-5.0); ALKALINE PHOSPHATASE 48 U/L (45-117); ALT (GPT) 17 U/L (12-78); AST (GOT) 47 U/L (15-37); BICARBONATE 27.6 MEQ/L (21.0-32.0); BLOOD UREA NITROGEN 12 MG/DL (7-18); CALCIUM 7.2 MG/DL (8.5-10.1); CALCIUM-PROTEIN CORRECTED 8.4 MG/DL (8.5-10.1); CHLORIDE 105 MEQ/L (98-107); CHOLESTEROL 88 MG/DL (120-200); CHOLESTEROL/ HDL RATIO 3.09 RATIO; CREATININE 0.72 MG/DL (0.60-1.30); GLOMERULAR FILTRATION RATE 94 ML/MIN (>89); GLUCOSE,RANDOM 112 MG/DL (74-106); HDL CHOLESTEROL 28.4 MG/DL (40.0-60.0); MAGNESIUM 2.2 MG/DL (1.5-2.5); SODIUM (NA) 138 MEQ/L (136-145); TOTAL BILIRUBIN ADULT 0.7 MG/DL (0.2-1.0); TOTAL PROTEIN 4.9 GM/DL (6.4-8.2); TRIGLYCERIDES 443 MG/DL (42-150); TROPONIN I LESS THAN 0.02 NG/ML (0.02-0.05)
--- NOTE | 2017-08-06 07:35 | EKG ---
Date Performed: 08/05/2017 Time Performed: 17:11:08 PTAGE: 89 years EKG: Sinus rhythm . Possible atrial sensed, ventricular paced rhythm or sinus rhythm with left bundle branch block Abno rmal ECG NO PREVIOUS TRACING DOCTOR: Huy Almaguer Interpretating Date/Time 08/06/2017 07:34:36
[2017-08-06] MEDS: CHLORHEXIDINE 0.12% (ORAL KIT) 15 ML CUP MT SCH ×2 (08:00→20:00)
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
[2017-08-06] MEDS ORDERED: GLYCERIN ADULT 2 GM SUPP RECTAL ONE (08:45)
[2017-08-06] MEDS ORDERED: POTASSIUM CHLORIDE 20 MEQ PWD PACKET NG ONE (08:45)
[2017-08-06] MEDS: SODIUM CHLORIDE 0.9% FLUSH 10 ML FLUSH IV FLUSH SCH ×2 (09:00→21:00)
[2017-08-06] MEDS ORDERED: POLYETHYLENE GLYCOL 17 GM PKG PO SCH (09:00)
[2017-08-06] MEDS: DOCUSATE SODIUM 100 MG/10 ML UDC PO SCH ×2 (09:01→20:43)
[2017-08-06] MEDS: MAGNESIUM HYDROXIDE SUSP 30 ML CUP PO SCH ×2 (09:01→20:43)
[2017-08-06] MEDS: FOLIC ACID 1 MG TAB PO SCH (09:01)
[2017-08-06] MEDS: MULTIVITAMIN TAB PO SCH (09:01)
[2017-08-06] MEDS: LACTULOSE SYRUP 20 GM/30 ML CUP PO SCH (09:01)
[2017-08-06] MEDS: AMIODARONE 200 MG TAB PO SCH ×2 (09:01→20:43)
[2017-08-06] MEDS: THIAMINE INJ 100 MG in SODIUM CHLORIDE 0.9% INJ 100 ML IV SCH (09:02)
[2017-08-06] MEDS: FUROSEMIDE 20 MG/2 ML VIAL IV PUSH SCH (09:02)
[2017-08-06] MEDS: POTASSIUM CHLORIDE 25 MEQ EFFERVESCENT TAB PO SCH (09:02)
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
[2017-08-06 13:16] LABS: BILIRUBIN, URINE NEG (NEG); BLOOD, URINE MOD (NEG); GLUCOSE,URINE NEG (NEG); KETONE, URINE NEG (NEG); MUCUS URINE FEW /lpf (OCC); NITRITE,URINE NEG (NEG); URINE COLOR YELLOW (YELLW/STRAW); URINE LEUKOCYTE ESTERASE NEG (NEG)
[2017-08-06] MEDS: DEXMEDETOMIDINE INJ 200 MCG in SODIUM CHLORIDE 0.9% INJ 50 ML IV PRN ×4 (13:50→22:29)
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
[2017-08-06] MEDS: fentaNYL DRIP 250 ML IV PRN (15:27)
[2017-08-06] MEDS ORDERED: ACETAMINOPHEN 1000 MG/100 ML 100 ML IV PRN (15:45)
[2017-08-06 16:17] LABS: MAGNESIUM 2.1 MG/DL (1.5-2.5)
[2017-08-06] MEDS: MAGNESIUM SULFATE 1 GM PREMIX 100 ML IV SCH ×2 (16:27→17:23)
[2017-08-06] MEDS: PANTOPRAZOLE SODIUM 40 MG VIAL IV PUSH SCH (21:22)
[2017-08-07] VITALS (21 sets, daily range): BP systolic 103–166; BP diastolic 62–90; PULSE 57–89; RESP 14; TEMP 97.8–98.8; O2SAT 97–100
[2017-08-07] MEDS: fentaNYL DRIP 250 ML IV PRN ×2 (00:04→15:21)
[2017-08-07] MEDS: LORazepam 2 MG/ML VIAL IV PUSH PRN ×7 (00:05→20:53)
[2017-08-07] MEDS: DEXMEDETOMIDINE INJ 200 MCG in SODIUM CHLORIDE 0.9% INJ 50 ML IV PRN ×6 (00:05→15:20)
[2017-08-07] MEDS: ACETAMINOPHEN 325MG/HYDROcodone 7.5MG/15ML UDC PEG PRN ×2 (01:57→06:46)
[2017-08-07] MEDS: RESP: ALBUTEROL 2.5 MG/IPRATROPIUM 0.5 MG NEB (SCH) NEB ×5 (03:26→20:04)
[2017-08-07] MEDS: METOPROLOL TARTRATE 5 MG/5 ML VIAL IV PUSH SCH ×4 (04:00→20:37)
[2017-08-07 05:29] LABS: AUTOMATED NEUTROPHIL # 8.3 TH/MM3 (1.8-7.7); BASOPHIL % 0.3 % (0.0-2.0); EOSINOPHIL # 0.3 TH/MM3 (0-0.4); EOSINOPHIL % 2.4 % (0.0-4.0); HEMATOCRIT 29.6 % (39.0-51.0); HEMOGLOBIN 10.1 GM/DL (13.0-17.0); LYMPH % 9.3 % (9.0-44.0); LYMPHOCYTE # 1.1 TH/MM3 (1.0-4.8); MEAN CELL VOLUME 95.1 FL (80.0-100.0); MEAN CORPUSCULAR HEMOGLOBIN 32.3 PG (27.0-34.0); MEAN PLATELET VOLUME 8.8 FL (7.0-11.0); MONO % 16.5 % (0.0-8.0); MONOCYTE # 1.9 TH/MM3 (0-0.9); NEUT % 71.5 % (16.0-70.0); PLATELET COUNT 185 TH/MM3 (150-450); RED BLOOD COUNT 3.11 MIL/MM3 (4.50-5.90); RED CELL DISTRIBUTION WIDTH 18.9 % (11.6-17.2); WHITE BLOOD COUNT 11.6 TH/MM3 (4.0-11.0)
[2017-08-07 05:50] LABS: ALBUMIN 1.8 GM/DL (3.4-5.0); AST (GOT) 23 U/L (15-37); BICARBONATE 27.7 MEQ/L (21.0-32.0); BLOOD UREA NITROGEN 13 MG/DL (7-18); CALCIUM 7.7 MG/DL (8.5-10.1); CHLORIDE 106 MEQ/L (98-107); CREATININE 0.62 MG/DL (0.60-1.30); GLOMERULAR FILTRATION RATE 112 ML/MIN (>89); GLUCOSE,RANDOM 136 MG/DL (74-106); MAGNESIUM 2.1 MG/DL (1.5-2.5); SODIUM (NA) 139 MEQ/L (136-145)
[2017-08-07 05:51] LABS: ALT (GPT) 14 U/L (12-78)
[2017-08-07 05:53] LABS: ALKALINE PHOSPHATASE 48 U/L (45-117); TOTAL BILIRUBIN ADULT 0.8 MG/DL (0.2-1.0); TOTAL PROTEIN 5.4 GM/DL (6.4-8.2)
[2017-08-07] MEDS: ARTIFICIAL TEARS OPTH SOLN 15 ML BTL EACH EYE SCH ×3 (06:00→20:38)
--- NOTE | 2017-08-07 06:25 | RADRPT ---
EXAM DATE/TIME: 08/07/2017 04:46 [facility] COMPARISON: CHEST SINGLE AP, August 06, 2017, 3:52. INDICATIONS : Short of breath. MEDICAL HISTORY : None. SURGICAL HISTORY : None. ENCOUNTER: Subsequent ACUITY: 1 week PAIN SCORE: Non-responsive. LOCATION: Bilateral chest FINDINGS: Chest tube is present on the left side. ET tube, and NG tube have not changed. multiple fractures are again seen. Left basilar opacity is present may be due to a combination of consolidation and or pleu ral effusion. No definite pneumothorax is seen for technique. CONCLUSION: No appreciable change. Jason Gong MD on August 07, 2017 at 6:23 Board Certified Radiologist. This report was verified electronically.
[2017-08-07 07:07] LABS: BANDS 11 % (0-6); LYMPHOCYTES 8 % (9-44); MONOCYTES 9 % (0-8); NEUTROPHIL # MANUAL DIFF 9.4 TH/MM3 (1.8-7.7); POLYS (SEG NEUTROPHILS) 70 % (16-70)
[2017-08-07] MEDS ORDERED: POTASSIUM CHLORIDE 20 MEQ PWD PACKET PO ONE (08:00)
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
[2017-08-07] MEDS ORDERED: DEXTROSE 50% IN WATER 50 ML VIAL(D50) IV PUSH PRN (08:15)
[2017-08-07] MEDS ORDERED: GLUCAGON 1 MG/ML VIAL OTHER PRN (08:15)
[2017-08-07] MEDS: POLYETHYLENE GLYCOL 17 GM PKG NG SCH ×2 (08:35→20:37)
[2017-08-07] MEDS: THIAMINE INJ 100 MG in SODIUM CHLORIDE 0.9% INJ 100 ML IV SCH (08:35)
[2017-08-07] MEDS: MAGNESIUM SULFATE 1 GM PREMIX 100 ML IV SCH ×2 (08:36→08:57)
[2017-08-07] MEDS: SENNOSIDES SYRUP 8.8 MG/5 ML CUP PO SCH (08:40)
[2017-08-07] MEDS: LACTULOSE SYRUP 20 GM/30 ML CUP PO SCH (08:40)
[2017-08-07] MEDS: DOCUSATE SODIUM 100 MG/10 ML UDC PO SCH ×2 (08:40→20:36)
[2017-08-07] MEDS: MAGNESIUM HYDROXIDE SUSP 30 ML CUP PO SCH ×2 (08:40→20:38)
[2017-08-07] MEDS: SODIUM CHLORIDE 0.9% FLUSH 10 ML FLUSH IV FLUSH SCH ×2 (08:41→20:38)
[2017-08-07] MEDS: FUROSEMIDE 20 MG/2 ML VIAL IV PUSH SCH (08:41)
[2017-08-07] MEDS: FOLIC ACID 1 MG TAB PO SCH (08:41)
[2017-08-07] MEDS: AMIODARONE 200 MG TAB PO SCH ×2 (08:41→20:37)
[2017-08-07] MEDS: POTASSIUM CHLORIDE 25 MEQ EFFERVESCENT TAB PO SCH (08:41)
[2017-08-07] MEDS: MULTIVITAMIN TAB PO SCH (08:41)
[2017-08-07] MEDS: CHLORHEXIDINE 0.12% (ORAL KIT) 15 ML CUP MT SCH ×2 (08:44→20:00)
[2017-08-07] MEDS ORDERED: GLYCERIN ADULT 2 GM SUPP RECTAL ONE (09:00)
[2017-08-07] MEDS ORDERED: METHYLNALTREXONE BROMIDE 12 MG/0.6 ML VIAL SQ ONE (09:00)
[2017-08-07] MEDS ORDERED: VANCOMYCIN HCL 1000 MG VIAL ONE (10:05)
[2017-08-07] MEDS ORDERED: GENTAMICIN SULFATE 80 MG/2 ML VIAL ONE (10:05)
[2017-08-07] MEDS ORDERED: SODIUM CHLOR 0.9% 250 ML INJ 250 ML ONE (10:06)
--- NOTE | 2017-08-07 11:05 | PD.ORT.PN ---
Subjective Subjective Remarks I have been asked to see this patient by Dr. Andino. The patient is now cleared for surgical treatment. He is unavailable today in the operating room. Case was discussed with the attending in the intensive care unit as well as the nursing staff. We reviewed recommendations for surgical treatment of a significant unstable left ankle fracture. It is agreed by the staff including the attending the intensive care unit the patient is a candidate to consider surgery. The patient is intubated and proper consent the patient is not possible. I discussed with the nursing staff and the indicated members available to discuss this with either. Objective Vitals Vital Signs Date Time Temp Pulse Resp B/P (MAP) Pulse Ox O2 Delivery O2 Flow Rate FiO2 08/07/17 10:00 65 08/07/17 08:00 97.9 70 14 115/71 (86) 100 08/07/17 08:00 40 08/07/17 08:00 70 08/07/17 07:46 14 08/07/17 07:41 100 40 08/07/17 07:00 100 Mechanical Ventilator 40 08/07/17 06:10 69 08/07/17 04:38 73 08/07/17 04:00 40 08/07/17 04:00 98.4 74 14 103/62 (76) 97 08/07/17 03:26 100 40 08/07/17 02:11 57 08/07/17 00:48 62 08/07/17 00:06 98 40 08/07/17 00:00 98.7 62 14 110/77 (88) 100 08/07/17 00:00 40 08/06/17 22:06 60 08/06/17 20:10 100 40 08/06/17 20:00 98.2 60 14 86/52 (63) 99 08/06/17 20:00 60 08/06/17 20:00 40 08/06/17 19:00 98 Mechanical Ventilator 40 08/06/17 16:00 102.4 08/06/17 16:00 102.4 94 14 108/67 (81) 99 08/06/17 16:00 94 08/06/17 15:52 100 40 08/06/17 14:20 103.7 08/06/17 12:00 102.7 104 14 126/73 (90) 95 08/06/17 12:00 104 08/06/17 11:31 99 40 I/O 08/06/17 08/06/17 08/06/17 08/07/17 08/07/17 08/07/17 07:00 15:00 23:00 07:00 15:00 23:00 Intake Total 863 ml 100 ml 1313.2 ml 857.8 ml 400 ml Output Total 1245 ml 0 ml 2040 ml 900 ml Balance -382 ml 100 ml -726.8 ml -42.2 ml 400 ml Intake IV Total 108 ml 100 ml 591.2 ml 328.8 ml 400 ml Tube Feeding 605 ml 722 ml 409 ml Other 150 ml 120 ml Output Urine Total 975 ml 1850 ml 750 ml Gastric Drainage Total 0 ml Tube Feeding Residual Discard 0 ml Chest Tube Drainage Total 250 ml 190 ml 150 ml Drainage Total 20 ml # Bowel Movements 0 0 0 Result Diagram: 08/07/17 0515 08/07/17514 Imaging Last 24 hours Impressions Chest X-Ray 08/06/17 0600 Signed Impressions: Service Date/Time: Sunday, August 06, 2017 03:52 - CONCLUSION: Left basilar opacity is present may be due to a combination of consolidation and or pleural effusion. Jason Gong MD Objective Remarks Intubated Head: facial lacerations. Bilateral upper extremity: Dressing over soft tissue wound on the left forearm. No deformities 2+ radial artery pulses. Good cap refill. RIGHT lower extremity: No deformity, + PT/DP pulses. Good capillary refill LEFT lower extremity: Ankle splint in place, + PT/DP pulses. Normal capillary refill. Assessment & Plan Assessment and Plan Left ankle fracture subluxation, unstable, bimalleolar. PLAN: Surgery: Open treatment internal fixation left ankle fracture with plates and screws. Consent: There are risks to surgery including infection, bleeding, loss of motion, need for further surgery, loss of fixation, nonunion, malunion. I'm unable to obtain proper consent the patient. I have signed the consent and the attending the patient has indicated that secondary signature will be furnished after I left the area. The patient's considered to be a trauma stat patient and entire need for surgical treatment. Without surgery, the patient clearly will have a significant deformity and may have long-term complications without surgery. There are potential competitions with or without surgery although it is clear that surgical treatment is the recommended course for this patient at this time. We will follow the patient after surgery Yvon Diaz MD Aug 07, 2017 11:05
[2017-08-07] MEDS ORDERED: ePHEDrine/NS 25 MG/5 ML SYRINGE IV ONE (12:00)
[2017-08-07] MEDS ORDERED: PHENYLEPH/NS 1000 MCG/10 ML SYR IV ONE (12:00)
[2017-08-07] MEDS: INSULIN NovoLIN REGULAR SUPPLEMENTAL SCALE SQ SCH ×2 (12:00→18:00)
[2017-08-07] MEDS ORDERED: VECURONIUM BROMIDE 20 MG VIAL IV ONE (12:00)
[2017-08-07] MEDS ORDERED: SODIUM CHLORIDE 0.9% 20 ML VIAL IV ONE (12:00)
[2017-08-07] MEDS ORDERED: ROCURONIUM INJ 50 MG/5 ML SYRINGE IV PUSH ONE (12:00)
[2017-08-07] MEDS ORDERED: ceFAZolin 2 GM PREMIX 50 ML ONE (12:52)
[2017-08-07] MEDS ORDERED: Post-op Orders (for Pharmacy) XX ONE (15:15)
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
--- NOTE | 2017-08-07 16:12 | RADRPT ---
EXAM DATE/TIME: 08/07/2017 14:56 [facility] COMPARISON: ANKLE LEFT LIMITED (AP&LAT), August 03, 2017, 8:14. INDICATIONS : Left ankle fracture repair. OR. MEDICAL HISTORY : None. SURGICAL HISTORY : None. ENCOUNTER: Initial ACUITY: 1 day PAIN SCORE: Non-responsive. LOCATION: Left ankle FINDINGS: Status post internal fixation of fractures involving the distal fibula and medial malleolus. There is good position and alignment of the fracture fragments. The hardware is grossly intact. There is good Alignment at the mortise joint. CONCLUSION: Good position and alignment on this postoperative study. Erick Townsend MD on August 07, 2017 at 16:09 Board Certified Radiologist. This report was verified electronically.
[2017-08-07] MEDS: LACTATED RINGER'S 1000 ML INJ 1,000 ML IV SCH (16:55)
--- NOTE | 2017-08-07 16:59 | RADRPT ---
EXAM DATE/TIME: 08/07/2017 16:29 [facility] COMPARISON: No previous studies available for comparison. INDICATIONS : Possible ileus. Distention. MEDICAL HISTORY : None. SURGICAL HISTORY : None. ENCOUNTER: Initial ACUITY: 3 days PAIN SCORE: Non-responsive. LOCATION: Bilateral lower quadrant FINDINGS: Air is seen throughout the colon. No dilated loops of small bowel are noted. No gross free air or pne umatosis. No abnormal calcifications. Osseous structures appear intact. Surgical staple line in the l eft abdomen. CONCLUSION: 1. Nonobstructive bowel gas pattern. Leonard Donahue MD on August 07, 2017 at 16:57 Board Certified Radiologist. This report was verified electronically.
[2017-08-07] MEDS: DEXMEDETOMIDINE INJ 1,000 MCG in SODIUM CHLOR 0.9% 250 ML INJ 240 ML IV PRN (19:54)
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
[2017-08-07] MEDS: PANTOPRAZOLE SODIUM 40 MG VIAL IV PUSH SCH (20:38)
[2017-08-07] MEDS: ACETAMINOPHEN 1000 MG/100 ML 100 ML IV PRN (21:08)
[2017-08-08] VITALS (20 sets, daily range): BP systolic 86–126; BP diastolic 53–84; PULSE 66–85; RESP 14–22; TEMP 97.8–102.2; O2SAT 99–100
[2017-08-08] MEDS ORDERED: MAGNESIUM SULFATE 1 GM ONE (02:15)
[2017-08-08] MEDS ORDERED: MAGNESIUM SULFATE 1 GM PREMIX 200 ML ONE (02:17)
[2017-08-08] MEDS: fentaNYL DRIP 250 ML IV PRN ×2 (02:43→18:47)
[2017-08-08] MEDS: LACTATED RINGER'S 1000 ML INJ 1,000 ML IV SCH (02:44)
--- NOTE | 2017-08-08 03:20 | RADRPT ---
EXAM DATE/TIME: 08/08/2017 02:25 [facility] COMPARISON: CHEST SINGLE AP, August 07, 2017, 4:46. INDICATIONS : Shortness of breath. MEDICAL HISTORY : Non-responsive SURGICAL HISTORY : Non-responsive ENCOUNTER: Subsequent ACUITY: 1 week PAIN SCORE: Non-responsive. LOCATION: Bilateral chest FINDINGS: Chest tube is present on the left side. ET tube, and NG tube have not changed. No definite pneumothor ax is seen for technique. Multiple fractures are again seen. Left basilar opacity is present may be d ue to a combination of consolidation and or pleural effusion. Perivascular pulmonary edema is also zaragoza spected. CONCLUSION: No appreciable change. Jason Gong MD on August 08, 2017 at 3:16 Board Certified Radiologist. This report was verified electronically.
[2017-08-08] MEDS: RESP: ALBUTEROL 2.5 MG/IPRATROPIUM 0.5 MG NEB (SCH) NEB ×4 (03:23→21:17)
[2017-08-08] MEDS: METOPROLOL TARTRATE 5 MG/5 ML VIAL IV PUSH SCH (04:00)
[2017-08-08 04:25] LABS: AUTOMATED NEUTROPHIL # 7.2 TH/MM3 (1.8-7.7); BASOPHIL # 0.1 TH/MM3 (0-0.2); BASOPHIL % 0.9 % (0.0-2.0); EOSINOPHIL # 0.2 TH/MM3 (0-0.4); EOSINOPHIL % 1.7 % (0.0-4.0); HEMATOCRIT 26.4 % (39.0-51.0); HEMOGLOBIN 8.8 GM/DL (13.0-17.0); LYMPHOCYTE # 0.7 TH/MM3 (1.0-4.8); MEAN CELL VOLUME 95.6 FL (80.0-100.0); MEAN CORPUSCULAR HEMOGLOBIN 31.7 PG (27.0-34.0); MEAN CORPUSCULAR HGB CONC 33.1 % (32.0-36.0); MEAN PLATELET VOLUME 8.9 FL (7.0-11.0); MONO % 20.8 % (0.0-8.0); MONOCYTE # 2.2 TH/MM3 (0-0.9); NEUT % 69.6 % (16.0-70.0); PLATELET COUNT 231 TH/MM3 (150-450); RED BLOOD COUNT 2.77 MIL/MM3 (4.50-5.90); RED CELL DISTRIBUTION WIDTH 18.7 % (11.6-17.2); WHITE BLOOD COUNT 10.4 TH/MM3 (4.0-11.0)
[2017-08-08] MEDS: DEXMEDETOMIDINE INJ 1,000 MCG in SODIUM CHLOR 0.9% 250 ML INJ 240 ML IV PRN ×3 (04:47→19:27)
[2017-08-08 04:56] LABS: ALBUMIN 1.5 GM/DL (3.4-5.0); BICARBONATE 27.1 MEQ/L (21.0-32.0); CALCIUM 7.4 MG/DL (8.5-10.1); CALCIUM-PROTEIN CORRECTED 8.6 MG/DL (8.5-10.1); CREATININE 0.66 MG/DL (0.60-1.30); MAGNESIUM 4.5 MG/DL (1.5-2.5); PHOSPHORUS 2.8 MG/DL (2.5-4.9); TOTAL BILIRUBIN ADULT 0.8 MG/DL (0.2-1.0)
[2017-08-08] MEDS: ARTIFICIAL TEARS OPTH SOLN 15 ML BTL EACH EYE SCH ×3 (05:25→21:04)
[2017-08-08] MEDS: INSULIN NovoLIN REGULAR SUPPLEMENTAL SCALE SQ SCH ×5 (05:25→23:52)
[2017-08-08] MEDS: LORazepam 2 MG/ML VIAL IV PUSH PRN ×5 (07:24→18:47)
[2017-08-08 07:28] LABS: BANDS 23 % (0-6); BASOPHILS 1 % (0-2); LYMPHOCYTES 4 % (9-44); MONOCYTES 14 % (0-8); NEUTROPHIL # MANUAL DIFF 8.4 TH/MM3 (1.8-7.7); POLYS (SEG NEUTROPHILS) 58 % (16-70)
[2017-08-08] MEDS: ACETAMINOPHEN 325MG/HYDROcodone 7.5MG/15ML UDC PEG PRN (07:44)
[2017-08-08] MEDS: CHLORHEXIDINE 0.12% (ORAL KIT) 15 ML CUP MT SCH ×2 (07:49→19:58)
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
[2017-08-08] MEDS: SODIUM CHLORIDE 0.9% FLUSH 10 ML FLUSH IV FLUSH SCH ×2 (08:09→19:58)
[2017-08-08] MEDS: THIAMINE INJ 100 MG in SODIUM CHLORIDE 0.9% INJ 100 ML IV SCH (08:11)
[2017-08-08] MEDS: MULTIVITAMIN TAB PO SCH (08:12)
[2017-08-08] MEDS: FOLIC ACID 1 MG TAB PO SCH (08:12)
[2017-08-08] MEDS: POTASSIUM CHLORIDE 25 MEQ EFFERVESCENT TAB PO SCH (08:12)
[2017-08-08] MEDS: FUROSEMIDE 20 MG/2 ML VIAL IV PUSH SCH (08:12)
[2017-08-08] MEDS: SENNOSIDES SYRUP 8.8 MG/5 ML CUP PO SCH (08:16)
[2017-08-08] MEDS: LACTULOSE SYRUP 20 GM/30 ML CUP PO SCH (08:16)
[2017-08-08] MEDS: MAGNESIUM HYDROXIDE SUSP 30 ML CUP PO SCH ×2 (08:16→19:59)
[2017-08-08] MEDS: DOCUSATE SODIUM 100 MG/10 ML UDC PO SCH ×2 (08:16→19:58)
[2017-08-08] MEDS: AMIODARONE 200 MG TAB PO SCH ×2 (08:16→19:58)
[2017-08-08] MEDS: POLYETHYLENE GLYCOL 17 GM PKG NG SCH ×2 (08:17→19:58)
[2017-08-08] MEDS: METOPROLOL TARTRATE 25 MG TAB PO SCH ×2 (08:17→19:58)
[2017-08-08 08:48] LABS: BACTERIA, URINE OCC /hpf; BILIRUBIN, URINE NEG (NEG); BLOOD, URINE MOD (NEG); GLUCOSE,URINE TRACE mg/dL (NEG); KETONE, URINE TRACE mg/dL (NEG); MUCUS URINE FEW /lpf (OCC); NITRITE,URINE NEG (NEG); SQUAMOUS EPITHELIAL CELL URINE <1 /hpf (0-5); URINE COLOR YELLOW (YELLW/STRAW); URINE LEUKOCYTE ESTERASE TRACE (NEG)
[2017-08-08] MEDS: POTASSIUM CHLOR 20 MEQ PREMIX 100 ML IV SCH ×2 (09:12→11:13)
[2017-08-08] MEDS ORDERED: FUROSEMIDE 20 MG/2 ML VIAL IV PUSH ONE (09:45)
[2017-08-08] MEDS: ENOXAPARIN SODIUM 40 MG/0.4 ML SYRINGE SQ SCH (10:38)
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
[2017-08-08] MEDS: HALOPERIDOL LACTATE 5 MG/ML AMP IM PRN (16:54)
--- NOTE | 2017-08-08 20:30 | PD.ORT.PN ---
Subjective Subjective Remarks (Note written in a delayed fashion - pt seen at 1330 today). Laying in bed, intubated. Nonresponsive to verbal cues. Objective Vitals Vital Signs Date Time Temp Pulse Resp B/P (MAP) Pulse Ox O2 Delivery O2 Flow Rate FiO2 08/08/17 18:00 77 08/08/17 16:00 97.8 80 15 119/84 (96) 100 08/08/17 16:00 80 08/08/17 16:00 40 08/08/17 15:00 100 40 08/08/17 14:00 85 08/08/17 12:00 40 08/08/17 12:00 72 08/08/17 12:00 99.0 67 14 126/73 (90) 100 08/08/17 11:41 100 40 08/08/17 10:00 79 08/08/17 08:00 81 08/08/17 08:00 101.1 80 15 110/63 (79) 100 08/08/17 08:00 40 08/08/17 07:47 100 40 08/08/17 07:00 100 Mechanical Ventilator 30.00 40 08/08/17 06:00 72 08/08/17 04:00 102.2 78 22 100/61 (74) 99 08/08/17 04:00 40 08/08/17 04:00 78 08/08/17 03:25 99 40 08/08/17 02:00 72 08/08/17 00:06 100 40 08/08/17 00:00 40 08/08/17 00:00 66 08/08/17 00:00 100.8 66 14 86/53 (64) 99 08/07/17 22:00 72 I/O 08/07/17 08/07/17 08/07/17 08/08/17 08/08/17 08/08/17 06:59 14:59 22:59 06:59 14:59 22:59 Intake Total 857.8 ml 452 ml 902 ml 2116 ml 1230 ml 1484 ml Output Total 900 ml 2325 ml 1054 ml 2400 ml 976 ml Balance -42.2 ml 452 ml -1423 ml 1062 ml -1170 ml 508 ml Intake IV Total 328.8 ml 452 ml 764 ml 1467 ml 1230 ml 591 ml Tube Feeding 409 ml 118 ml 649 ml 622 ml Tube Irrigant 20 ml 30 ml Other 120 ml 241 ml Output Urine Total 750 ml 2150 ml 900 ml 2400 ml 850 ml Chest Tube Drainage Total 150 ml 100 ml 154 ml 126 ml Estimated Blood Loss 75 ml # Bowel Movements 0 0 0 Result Diagram: 08/08/1740408/08/17404 Imaging Last 24 hours Impressions Chest X-Ray 08/06/17 0600 Signed Impressions: Service Date/Time: Sunday, August 06, 2017 03:52 - CONCLUSION: Left basilar opacity is present may be due to a combination of consolidation and or pleural effusion. Jason Gong MD Objective Remarks Intubated No signs of distress Multiple facial lacerations. Bilateral upper extremity: Dressing over soft tissue wound on the left forearm. No deformities 2+ radial artery pulses. Good cap refill. RIGHT lower extremity: No deformity, + PT/DP pulses. Good capillary refill LEFT lower extremity Short leg splint on left, mild swelling toes, no peripheral skin lesions proximal or distal splint, Good warmth toes, cap refill great toe less than 2 secs Assessment & Plan Ortho Post Op Day #: 1 Problem List: Assessment and Plan pod#1 s/p ORIF left ankle; Left ankle fracture subluxation, unstable, bimalleolar. Pressure ulcer left calcaneus. Pt intubated and nonresponsive. No signs of distress. Continue left leg splint. Ice / elevate left leg. Avoid direct pressure on left heel as patient is developing pressure ulcer. Medical / critical care following. If patient becomes lucid and ambulatory he is to be nonwbing LLE. Walker for gait assistance. Annelise Maher Aug 08, 2017 20:30
[2017-08-08] MEDS: PANTOPRAZOLE SODIUM 40 MG VIAL IV PUSH SCH (21:04)
[2017-08-09] VITALS (20 sets, daily range): BP systolic 96–180; BP diastolic 57–90; PULSE 66–105; RESP 14–34; TEMP 98.8–100.9; O2SAT 94–100
[2017-08-09] MEDS ORDERED: PROTAMINE SULFATE 50 MG/5 ML VIAL ONE (00:12)
[2017-08-09] MEDS: DEXMEDETOMIDINE INJ 1,000 MCG in SODIUM CHLOR 0.9% 250 ML INJ 240 ML IV PRN ×3 (01:20→15:00)
[2017-08-09 03:40] LABS: MEAN CORPUSCULAR HEMOGLOBIN 31.5 PG (27.0-34.0); MEAN CORPUSCULAR HGB CONC 32.8 % (32.0-36.0); MEAN PLATELET VOLUME 8.7 FL (7.0-11.0); PLATELET COUNT 239 TH/MM3 (150-450); RED BLOOD COUNT 1.97 MIL/MM3 (4.50-5.90); RED CELL DISTRIBUTION WIDTH 18.5 % (11.6-17.2); WHITE BLOOD COUNT 7.5 TH/MM3 (4.0-11.0)
[2017-08-09 04:11] LABS: ALBUMIN 1.3 GM/DL (3.4-5.0); BICARBONATE 23.9 MEQ/L (21.0-32.0); CALCIUM 6.5 MG/DL (8.5-10.1); CALCIUM-PROTEIN CORRECTED 7.9 MG/DL (8.5-10.1); CREATININE 0.45 MG/DL (0.60-1.30); MAGNESIUM 1.7 MG/DL (1.5-2.5); TOTAL BILIRUBIN ADULT 0.5 MG/DL (0.2-1.0); TOTAL PROTEIN 4.3 GM/DL (6.4-8.2)
[2017-08-09 04:12] LABS: HEMOGLOBIN 6.2 GM/DL (13.0-17.0)
[2017-08-09 04:13] LABS: HEMATOCRIT 18.9 % (39.0-51.0)
[2017-08-09] MEDS ORDERED: SODIUM CHLOR 0.9% 250 ML INJ 250 ML IV ONE (04:30)
[2017-08-09 04:35] LABS: BANDS 4 % (0-6); CORRECTED NUCLEATED RBC 1 /100 WBC (0-0); LYMPHOCYTES 5 % (9-44); METAMYELOCYTES 1 % (0-1); MONOCYTES 8 % (0-8); NEUTROPHIL # MANUAL DIFF 6.5 TH/MM3 (1.8-7.7); NUCLEATED RED BLOOD CELL 1 (0-0); POLYS (SEG NEUTROPHILS) 82 % (16-70)
[2017-08-09] MEDS: RESP: ALBUTEROL 2.5 MG/IPRATROPIUM 0.5 MG NEB (SCH) NEB ×4 (04:52→20:18)
[2017-08-09] MEDS: ARTIFICIAL TEARS OPTH SOLN 15 ML BTL EACH EYE SCH ×3 (05:12→22:21)
[2017-08-09 05:25] LABS: INTERNATIONAL NORMALIZED RATIO 1.1 RATIO; PROTHROMBIN TIME - PATIENT 11.4 SEC (9.8-11.6)
[2017-08-09] MEDS: INSULIN NovoLIN REGULAR SUPPLEMENTAL SCALE SQ SCH ×3 (05:28→18:00)
[2017-08-09] MEDS: LORazepam 2 MG/ML VIAL IV PUSH PRN ×2 (06:00→23:38)
[2017-08-09] MEDS: fentaNYL DRIP 250 ML IV PRN ×2 (06:02→16:50)
--- NOTE | 2017-08-09 06:10 | RADRPT ---
EXAM DATE/TIME: 08/09/2017 05:39 [place] COMPARISON: CHEST SINGLE AP, August 08, 2017, 2:25. INDICATIONS : Short of breath. MEDICAL HISTORY : None. SURGICAL HISTORY : None. ENCOUNTER: Subsequent ACUITY: 1 week PAIN SCORE: Non-responsive. LOCATION: Bilateral chest FINDINGS: Chest tube is present on the left side. Multiple fractures are again seen. ET tube, and NG tube have not changed. No definite pneumothorax is seen for technique. Left basilar opacity is present may be d ue to a combination of consolidation and or pleural effusion. Mild degree of pulmonary edema may also be present. CONCLUSION: No appreciable change. Jason Gong MD on August 09, 2017 at 6:08 Board Certified Radiologist. This report was verified electronically.
[2017-08-09] MEDS: HALOPERIDOL LACTATE 5 MG/ML AMP IM PRN (06:45)
[2017-08-09] MEDS: PROPOFOL 1000 MG/100 ML INJ 100 ML IV PRN ×2 (07:00→20:15)
[2017-08-09] MEDS ORDERED: BISACODYL 10 MG SUPP RECTAL ONE (07:30)
[2017-08-09] MEDS: AMIODARONE 200 MG TAB PO SCH ×2 (09:06→22:20)
[2017-08-09] MEDS: FUROSEMIDE 20 MG/2 ML VIAL IV PUSH SCH (09:06)
[2017-08-09] MEDS: THIAMINE INJ 100 MG in SODIUM CHLORIDE 0.9% INJ 100 ML IV SCH (09:06)
[2017-08-09] MEDS: FOLIC ACID 1 MG TAB PO SCH (09:06)
[2017-08-09] MEDS: POTASSIUM CHLORIDE 25 MEQ EFFERVESCENT TAB PO SCH (09:07)
[2017-08-09] MEDS: MAGNESIUM HYDROXIDE SUSP 30 ML CUP PO SCH ×2 (09:07→22:20)
[2017-08-09] MEDS: SENNOSIDES SYRUP 8.8 MG/5 ML CUP PO SCH (09:07)
[2017-08-09] MEDS: METOPROLOL TARTRATE 25 MG TAB PO SCH ×2 (09:07→22:20)
[2017-08-09] MEDS: LACTULOSE SYRUP 20 GM/30 ML CUP PO SCH (09:07)
[2017-08-09] MEDS: ENOXAPARIN SODIUM 40 MG/0.4 ML SYRINGE SQ SCH (09:07)
[2017-08-09] MEDS: CHLORHEXIDINE 0.12% (ORAL KIT) 15 ML CUP MT SCH ×2 (09:07→20:00)
[2017-08-09] MEDS: DOCUSATE SODIUM 100 MG/10 ML UDC PO SCH ×2 (09:07→22:20)
[2017-08-09] MEDS: MULTIVITAMIN TAB PO SCH (09:08)
[2017-08-09] MEDS: SODIUM CHLORIDE 0.9% FLUSH 10 ML FLUSH IV FLUSH SCH ×2 (09:08→22:20)
[2017-08-09] MEDS: POLYETHYLENE GLYCOL 17 GM PKG NG SCH ×2 (09:08→22:20)
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
[2017-08-09] MEDS: LIDOCAINE HCL 5% PATCH T-DERMAL SCH (11:33)
[2017-08-09] MEDS: METHOCARBAMOL 500 MG TAB PO SCH ×3 (11:33→22:20)
[2017-08-09] MEDS: HYDROmorphone HCL PF 2 MG/ML VIAL IV PUSH PRN ×3 (13:40→22:48)
[2017-08-09 13:57] LABS: HEMOGLOBIN 11.1 GM/DL (13.0-17.0)
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
[2017-08-09] MEDS: ACETAMINOPHEN 1000 MG/100 ML 100 ML IV PRN (16:16)
[2017-08-09] MEDS: PANTOPRAZOLE SODIUM 40 MG VIAL IV PUSH SCH (22:20)
[2017-08-09] MEDS: REMOVE OLD LIDOCAINE PATCH T-DERMAL SCH (22:21)
--- NOTE | 2017-08-09 22:45 | EKG ---
Date Performed: 08/09/2017 Time Performed: 00:41:10 PTAGE: 89 years EKG: Sinus rhythm . Normal ECG based on available leads PREVIOUS TRACING : 08/05/2017 17.11 Compared to the previous tracing ventricular pacing n o longer is present DOCTOR: Larry Schwartz Interpretating Date/Time 08/09/2017 22:43:58
[2017-08-10] VITALS (16 sets, daily range): BP systolic 128–181; BP diastolic 62–103; PULSE 68–122; RESP 20–40; TEMP 98.6–102.3; O2SAT 95–100
[2017-08-10] MEDS: PROPOFOL 1000 MG/100 ML INJ 100 ML IV PRN (01:30)
[2017-08-10] MEDS: RESP: ALBUTEROL 2.5 MG/IPRATROPIUM 0.5 MG NEB (SCH) NEB ×4 (03:34→20:41)
[2017-08-10] MEDS: fentaNYL DRIP 250 ML IV PRN (03:46)
[2017-08-10] MEDS: ACETAMINOPHEN 1000 MG/100 ML 100 ML IV PRN ×3 (04:09→21:09)
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
[2017-08-10] MEDS: ARTIFICIAL TEARS OPTH SOLN 15 ML BTL EACH EYE SCH ×3 (05:35→22:00)
[2017-08-10] MEDS: METHOCARBAMOL 500 MG TAB PO SCH ×3 (05:35→20:29)
[2017-08-10] MEDS: HYDROmorphone HCL PF 2 MG/ML VIAL IV PUSH PRN (05:35)
[2017-08-10 05:49] LABS: HEMATOCRIT 32.3 % (39.0-51.0); HEMOGLOBIN 10.7 GM/DL (13.0-17.0); MEAN CELL VOLUME 92.4 FL (80.0-100.0); MEAN CORPUSCULAR HEMOGLOBIN 30.6 PG (27.0-34.0); MEAN CORPUSCULAR HGB CONC 33.1 % (32.0-36.0); MEAN PLATELET VOLUME 8.4 FL (7.0-11.0); PLATELET COUNT 458 TH/MM3 (150-450); RED CELL DISTRIBUTION WIDTH 17.7 % (11.6-17.2); WHITE BLOOD COUNT 13.3 TH/MM3 (4.0-11.0)
[2017-08-10] MEDS: INSULIN NovoLIN REGULAR SUPPLEMENTAL SCALE SQ SCH ×5 (06:00→23:11)
[2017-08-10 06:14] LABS: ALBUMIN 1.7 GM/DL (3.4-5.0); ALT (GPT) 13 U/L (12-78); AST (GOT) 23 U/L (15-37); BICARBONATE 27.7 MEQ/L (21.0-32.0); BLOOD UREA NITROGEN 16 MG/DL (7-18); CALCIUM 7.7 MG/DL (8.5-10.1); CHLORIDE 102 MEQ/L (98-107); CREATININE 0.78 MG/DL (0.60-1.30); GLOMERULAR FILTRATION RATE 86 ML/MIN (>89); GLUCOSE,RANDOM 154 MG/DL (74-106); SODIUM (NA) 138 MEQ/L (136-145)
[2017-08-10 06:16] LABS: ALKALINE PHOSPHATASE 109 U/L (45-117); TOTAL BILIRUBIN ADULT 1.1 MG/DL (0.2-1.0); TOTAL PROTEIN 5.6 GM/DL (6.4-8.2)
[2017-08-10 07:10] LABS: BANDS 3 % (0-6); LYMPHOCYTES 9 % (9-44); MONOCYTES 18 % (0-8); NEUTROPHIL # MANUAL DIFF 9.6 TH/MM3 (1.8-7.7); POLYS (SEG NEUTROPHILS) 69 % (16-70)
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
[2017-08-10] MEDS ORDERED: MAGNESIUM CITRATE SOLN 300 ML BTL PO ONE (07:30)
[2017-08-10] MEDS: THIAMINE INJ 100 MG in SODIUM CHLORIDE 0.9% INJ 100 ML IV SCH (07:56)
[2017-08-10] MEDS: CHLORHEXIDINE 0.12% (ORAL KIT) 15 ML CUP MT SCH ×2 (07:56→20:00)
[2017-08-10] MEDS: SODIUM CHLORIDE 0.9% FLUSH 10 ML FLUSH IV FLUSH SCH ×2 (07:57→20:30)
[2017-08-10] MEDS: POLYETHYLENE GLYCOL 17 GM PKG NG SCH ×2 (08:01→20:29)
[2017-08-10] MEDS: LIDOCAINE HCL 5% PATCH T-DERMAL SCH (08:01)
[2017-08-10] MEDS: LACTULOSE SYRUP 20 GM/30 ML CUP PO SCH (08:01)
[2017-08-10] MEDS: SENNOSIDES SYRUP 8.8 MG/5 ML CUP PO SCH (08:01)
[2017-08-10] MEDS: FUROSEMIDE 20 MG/2 ML VIAL IV PUSH SCH (08:01)
[2017-08-10] MEDS: MAGNESIUM HYDROXIDE SUSP 30 ML CUP PO SCH ×2 (08:01→20:31)
[2017-08-10] MEDS: POTASSIUM CHLORIDE 25 MEQ EFFERVESCENT TAB PO SCH (08:02)
[2017-08-10] MEDS: METOPROLOL TARTRATE 25 MG TAB PO SCH ×2 (08:02→20:29)
[2017-08-10] MEDS: AMIODARONE 200 MG TAB PO SCH ×2 (08:02→20:28)
[2017-08-10] MEDS: DOCUSATE SODIUM 100 MG/10 ML UDC PO SCH ×2 (08:02→20:29)
[2017-08-10] MEDS: MULTIVITAMIN TAB PO SCH (08:02)
[2017-08-10] MEDS: FOLIC ACID 1 MG TAB PO SCH (08:02)
[2017-08-10] MEDS: DEXMEDETOMIDINE INJ 1,000 MCG in SODIUM CHLOR 0.9% 250 ML INJ 240 ML IV PRN ×4 (10:30→15:14)
[2017-08-10] MEDS: ENOXAPARIN SODIUM 40 MG/0.4 ML SYRINGE SQ SCH (10:58)
[2017-08-10] MEDS: LORazepam 2 MG/ML VIAL IV PUSH PRN ×4 (12:00→21:22)
[2017-08-10] MEDS: HALOPERIDOL LACTATE 5 MG/ML AMP IM PRN (12:26)
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
[2017-08-10] MEDS: PANTOPRAZOLE SODIUM 40 MG VIAL IV PUSH SCH (20:29)
[2017-08-10] MEDS: REMOVE OLD LIDOCAINE PATCH T-DERMAL SCH (21:00)
[2017-08-11] VITALS (10 sets, daily range): BP systolic 111–163; BP diastolic 57–82; PULSE 80–100; RESP 22–30; TEMP 98.7–101.1; O2SAT 97–100
[2017-08-11] MEDS: LORazepam 2 MG/ML VIAL IV PUSH PRN ×6 (00:06→20:26)
[2017-08-11] MEDS: DEXMEDETOMIDINE INJ 1,000 MCG in SODIUM CHLOR 0.9% 250 ML INJ 240 ML IV PRN ×4 (02:51→20:41)
[2017-08-11] MEDS: RESP: ALBUTEROL 2.5 MG/IPRATROPIUM 0.5 MG NEB (SCH) NEB (03:18)
[2017-08-11 04:27] LABS: AUTOMATED NEUTROPHIL # 11.7 TH/MM3 (1.8-7.7); BASOPHIL # 0.1 TH/MM3 (0-0.2); BASOPHIL % 0.8 % (0.0-2.0); EOSINOPHIL # 0.1 TH/MM3 (0-0.4); EOSINOPHIL % 0.8 % (0.0-4.0); HEMATOCRIT 37.9 % (39.0-51.0); HEMOGLOBIN 12.7 GM/DL (13.0-17.0); LYMPH % 9.1 % (9.0-44.0); LYMPHOCYTE # 1.6 TH/MM3 (1.0-4.8); MEAN CELL VOLUME 93.8 FL (80.0-100.0); MEAN CORPUSCULAR HEMOGLOBIN 31.3 PG (27.0-34.0); MEAN CORPUSCULAR HGB CONC 33.4 % (32.0-36.0); MEAN PLATELET VOLUME 8.2 FL (7.0-11.0); MONO % 23.6 % (0.0-8.0); MONOCYTE # 4.2 TH/MM3 (0-0.9); NEUT % 65.7 % (16.0-70.0); PLATELET COUNT 535 TH/MM3 (150-450); RED BLOOD COUNT 4.05 MIL/MM3 (4.50-5.90); RED CELL DISTRIBUTION WIDTH 17.9 % (11.6-17.2); WHITE BLOOD COUNT 17.9 TH/MM3 (4.0-11.0)
[2017-08-11 04:39] LABS: AST (GOT) 27 U/L (15-37); BICARBONATE 28.2 MEQ/L (21.0-32.0); BLOOD UREA NITROGEN 14 MG/DL (7-18); CALCIUM 8.5 MG/DL (8.5-10.1); CHLORIDE 104 MEQ/L (98-107); CREATININE 0.68 MG/DL (0.60-1.30); GLOMERULAR FILTRATION RATE 117 ML/MIN (>89); GLUCOSE,RANDOM 114 MG/DL (74-106); MAGNESIUM 2.4 MG/DL (1.5-2.5); SODIUM (NA) 141 MEQ/L (136-145)
[2017-08-11 04:41] LABS: ALKALINE PHOSPHATASE 111 U/L (45-117); ALT (GPT) 13 U/L (12-78); TOTAL BILIRUBIN ADULT 1.1 MG/DL (0.2-1.0); TOTAL PROTEIN 6.2 GM/DL (6.4-8.2)
[2017-08-11 05:12] LABS: BANDS 3 % (0-6); BASOPHILS 1 % (0-2); CORRECTED NUCLEATED RBC 1 /100 WBC (0-0); LYMPHOCYTES 10 % (9-44); MONOCYTES 21 % (0-8); NEUTROPHIL # MANUAL DIFF 12.2 TH/MM3 (1.8-7.7); NUCLEATED RED BLOOD CELL 1 (0-0); POLYS (SEG NEUTROPHILS) 65 % (16-70)
[2017-08-11] MEDS: METHOCARBAMOL 500 MG TAB PO SCH ×3 (05:39→21:18)
[2017-08-11] MEDS: INSULIN NovoLIN REGULAR SUPPLEMENTAL SCALE SQ SCH ×3 (05:40→18:00)
[2017-08-11] MEDS: ARTIFICIAL TEARS OPTH SOLN 15 ML BTL EACH EYE SCH ×3 (05:40→21:32)
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
[2017-08-11] MEDS: CHLORHEXIDINE 0.12% (ORAL KIT) 15 ML CUP MT SCH ×2 (08:00→20:00)
[2017-08-11] MEDS: MULTIVITAMIN TAB PO SCH (08:37)
[2017-08-11] MEDS: FOLIC ACID 1 MG TAB PO SCH (08:37)
[2017-08-11] MEDS: THIAMINE INJ 100 MG in SODIUM CHLORIDE 0.9% INJ 100 ML IV SCH (08:38)
[2017-08-11] MEDS: AMIODARONE 200 MG TAB PO SCH ×2 (08:38→20:25)
[2017-08-11] MEDS: SODIUM CHLORIDE 0.9% FLUSH 10 ML FLUSH IV FLUSH SCH ×2 (08:38→20:26)
[2017-08-11] MEDS: METOPROLOL TARTRATE 25 MG TAB PO SCH ×2 (08:38→20:25)
[2017-08-11] MEDS: LIDOCAINE HCL 5% PATCH T-DERMAL SCH (08:38)
[2017-08-11] MEDS: LACTULOSE SYRUP 20 GM/30 ML CUP PO SCH (08:39)
[2017-08-11] MEDS: DOCUSATE SODIUM 100 MG/10 ML UDC PO SCH ×2 (08:39→20:26)
[2017-08-11] MEDS: POLYETHYLENE GLYCOL 17 GM PKG NG SCH ×2 (08:39→20:26)
[2017-08-11] MEDS: FUROSEMIDE 20 MG/2 ML VIAL IV PUSH SCH (08:39)
[2017-08-11] MEDS: POTASSIUM CHLORIDE 25 MEQ EFFERVESCENT TAB PO SCH (08:40)
[2017-08-11] MEDS: SENNOSIDES SYRUP 8.8 MG/5 ML CUP PO SCH (08:40)
[2017-08-11] MEDS: MAGNESIUM HYDROXIDE SUSP 30 ML CUP PO SCH ×2 (08:40→20:26)
[2017-08-11] MEDS: ACETAMINOPHEN 325MG/HYDROcodone 7.5MG/15ML UDC PEG PRN (08:49)
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
[2017-08-11] MEDS: QUEtiapine FUMARATE 100 MG TAB PO SCH ×2 (10:49→20:25)
[2017-08-11] MEDS: ENOXAPARIN SODIUM 40 MG/0.4 ML SYRINGE SQ SCH (10:49)
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
[2017-08-11] MEDS: ACETAMINOPHEN 1000 MG/100 ML 100 ML IV PRN (15:31)
[2017-08-11] MEDS: RESP: ALBUTEROL 2.5 MG/3 ML NEB (PRN) NEB ×2 (19:49→22:16)
[2017-08-11] MEDS: REMOVE OLD LIDOCAINE PATCH T-DERMAL SCH (21:00)
[2017-08-11 21:17] LABS: MAGNESIUM 2.3 MG/DL (1.5-2.5)
[2017-08-11] MEDS: PANTOPRAZOLE SODIUM 40 MG VIAL IV PUSH SCH (21:18)
[2017-08-12] VITALS (13 sets, daily range): BP systolic 136–157; BP diastolic 80–97; PULSE 81–114; RESP 24–38; TEMP 98.9–100.5; O2SAT 92–100
[2017-08-12] MEDS: ACETAMINOPHEN 1000 MG/100 ML 100 ML IV PRN (00:58)
[2017-08-12] MEDS: LORazepam 2 MG/ML VIAL IV PUSH PRN (00:58)
[2017-08-12] MEDS: DEXMEDETOMIDINE INJ 1,000 MCG in SODIUM CHLOR 0.9% 250 ML INJ 240 ML IV PRN ×3 (03:06→19:44)
[2017-08-12] MEDS: RESP: ALBUTEROL 2.5 MG/3 ML NEB (PRN) NEB ×2 (04:12→19:57)
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
[2017-08-12 05:26] LABS: BASOPHIL # 0.2 TH/MM3 (0-0.2); BASOPHIL % 1.2 % (0.0-2.0); EOSINOPHIL # 0.1 TH/MM3 (0-0.4); EOSINOPHIL % 0.6 % (0.0-4.0); HEMATOCRIT 36.9 % (39.0-51.0); HEMOGLOBIN 12.3 GM/DL (13.0-17.0); LYMPH % 10.6 % (9.0-44.0); MEAN CORPUSCULAR HEMOGLOBIN 31.7 PG (27.0-34.0); MEAN CORPUSCULAR HGB CONC 33.3 % (32.0-36.0); MEAN PLATELET VOLUME 8.5 FL (7.0-11.0); MONOCYTE # 3.4 TH/MM3 (0-0.9); NEUT % 69.6 % (16.0-70.0); PLATELET COUNT 709 TH/MM3 (150-450); RED BLOOD COUNT 3.88 MIL/MM3 (4.50-5.90); WHITE BLOOD COUNT 18.7 TH/MM3 (4.0-11.0)
[2017-08-12 05:45] LABS: ALBUMIN 2.1 GM/DL (3.4-5.0); ALT (GPT) 22 U/L (12-78); AST (GOT) 37 U/L (15-37); BICARBONATE 26.9 MEQ/L (21.0-32.0); BLOOD UREA NITROGEN 17 MG/DL (7-18); CALCIUM 8.3 MG/DL (8.5-10.1); CHLORIDE 107 MEQ/L (98-107); CREATININE 0.75 MG/DL (0.60-1.30); GLOMERULAR FILTRATION RATE 105 ML/MIN (>89); GLUCOSE,RANDOM 210 MG/DL (74-106); MAGNESIUM 2.2 MG/DL (1.5-2.5); SODIUM (NA) 140 MEQ/L (136-145)
[2017-08-12 05:47] LABS: ALKALINE PHOSPHATASE 119 U/L (45-117); TOTAL BILIRUBIN ADULT 0.9 MG/DL (0.2-1.0); TOTAL PROTEIN 6.2 GM/DL (6.4-8.2)
[2017-08-12] MEDS: METHOCARBAMOL 500 MG TAB PO SCH ×3 (05:50→19:43)
[2017-08-12] MEDS: INSULIN NovoLIN REGULAR SUPPLEMENTAL SCALE SQ SCH ×4 (05:51→18:00)
[2017-08-12] MEDS: ARTIFICIAL TEARS OPTH SOLN 15 ML BTL EACH EYE SCH ×3 (05:51→19:56)
[2017-08-12] MEDS: FUROSEMIDE 20 MG/2 ML VIAL IV PUSH SCH (08:14)
[2017-08-12] MEDS: FOLIC ACID 1 MG TAB PO SCH (08:14)
[2017-08-12] MEDS: MULTIVITAMIN TAB PO SCH (08:14)
[2017-08-12] MEDS: AMIODARONE 200 MG TAB PO SCH ×2 (08:14→19:43)
[2017-08-12] MEDS: METOPROLOL TARTRATE 25 MG TAB PO SCH ×2 (08:14→19:43)
[2017-08-12] MEDS: POTASSIUM CHLORIDE 25 MEQ EFFERVESCENT TAB PO SCH (08:14)
[2017-08-12] MEDS: THIAMINE INJ 100 MG in SODIUM CHLORIDE 0.9% INJ 100 ML IV SCH (08:14)
[2017-08-12] MEDS: LACTULOSE SYRUP 20 GM/30 ML CUP PO SCH (08:15)
[2017-08-12] MEDS: SENNOSIDES SYRUP 8.8 MG/5 ML CUP PO SCH (08:15)
[2017-08-12] MEDS: QUEtiapine FUMARATE 100 MG TAB PO SCH ×2 (08:15→19:43)
[2017-08-12] MEDS: MAGNESIUM HYDROXIDE SUSP 30 ML CUP PO SCH ×2 (08:15→19:43)
[2017-08-12] MEDS: POLYETHYLENE GLYCOL 17 GM PKG NG SCH ×2 (08:16→19:42)
[2017-08-12] MEDS: CHLORHEXIDINE 0.12% (ORAL KIT) 15 ML CUP MT SCH ×2 (08:16→19:43)
[2017-08-12] MEDS: LIDOCAINE HCL 5% PATCH T-DERMAL SCH (08:16)
[2017-08-12] MEDS: DOCUSATE SODIUM 100 MG/10 ML UDC PO SCH ×2 (08:16→19:42)
[2017-08-12] MEDS: SODIUM CHLORIDE 0.9% FLUSH 10 ML FLUSH IV FLUSH SCH ×2 (08:16→19:43)
[2017-08-12] MEDS: HALOPERIDOL LACTATE 5 MG/ML AMP IM PRN (08:45)
[2017-08-12] MEDS: ENOXAPARIN SODIUM 40 MG/0.4 ML SYRINGE SQ SCH (10:24)
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
[2017-08-12] MEDS: HALOPERIDOL LACTATE 5 MG/ML AMP IV PRN ×3 (13:15→22:27)
[2017-08-12] MEDS: ACETAMINOPHEN 325MG/HYDROcodone 7.5MG/15ML UDC PEG PRN ×3 (13:24→21:43)
[2017-08-12] MEDS: REMOVE OLD LIDOCAINE PATCH T-DERMAL SCH (19:56)
[2017-08-12] MEDS: PANTOPRAZOLE SODIUM 40 MG VIAL IV PUSH SCH (19:59)
[2017-08-13] VITALS (15 sets, daily range): BP systolic 84–148; BP diastolic 78–93; PULSE 83–122; RESP 19–32; TEMP 98–99.8; O2SAT 95–99
[2017-08-13] MEDS: ACETAMINOPHEN 325MG/HYDROcodone 7.5MG/15ML UDC PEG PRN ×4 (01:53→12:56)
[2017-08-13] MEDS: HALOPERIDOL LACTATE 5 MG/ML AMP IV PRN (02:05)
[2017-08-13] MEDS: ARTIFICIAL TEARS OPTH SOLN 15 ML BTL EACH EYE SCH ×3 (04:56→22:00)
--- NOTE | 2017-08-13 05:02 | RADRPT ---
EXAM DATE/TIME: 08/13/2017 03:34 [facility] COMPARISON: CHEST SINGLE AP, August 12, 2017, 4:05. INDICATIONS : Shortness of breath, possible pulmonary disease. MEDICAL HISTORY : None. SURGICAL HISTORY : None. ENCOUNTER: Subsequent ACUITY: 1 day PAIN SCORE: Non-responsive. LOCATION: Bilateral chest FINDINGS: Single portable frontal view the chest shows a left thoracostomy tube. Multiple left-sided rib fractu res. No pneumothorax. Left basilar consolidation is unchanged. Right lung is clear. Heart is normal i n size. CONCLUSION: 1. Unchanged exam with left thoracostomy tube and no pneumothorax. Left-sided rib fractures and left basilar consolidation. Elmer Llamas Jr., MD on August 13, 2017 at 5:00 Board Certified Radiologist. This report was verified electronically.
[2017-08-13 05:13] LABS: AUTOMATED NEUTROPHIL # 12.8 TH/MM3 (1.8-7.7); BASOPHIL # 0.1 TH/MM3 (0-0.2); BASOPHIL % 0.8 % (0.0-2.0); EOSINOPHIL # 0.2 TH/MM3 (0-0.4); EOSINOPHIL % 1.4 % (0.0-4.0); HEMATOCRIT 36.7 % (39.0-51.0); HEMOGLOBIN 12.1 GM/DL (13.0-17.0); LYMPH % 9.3 % (9.0-44.0); LYMPHOCYTE # 1.6 TH/MM3 (1.0-4.8); MEAN CORPUSCULAR HEMOGLOBIN 30.9 PG (27.0-34.0); MEAN CORPUSCULAR HGB CONC 32.9 % (32.0-36.0); MEAN PLATELET VOLUME 8.7 FL (7.0-11.0); MONO % 16.2 % (0.0-8.0); MONOCYTE # 2.9 TH/MM3 (0-0.9); NEUT % 72.3 % (16.0-70.0); PLATELET COUNT 754 TH/MM3 (150-450); RED CELL DISTRIBUTION WIDTH 18.1 % (11.6-17.2); WHITE BLOOD COUNT 17.7 TH/MM3 (4.0-11.0)
[2017-08-13 05:22] LABS: ALBUMIN 2.2 GM/DL (3.4-5.0); ALT (GPT) 17 U/L (12-78); AST (GOT) 27 U/L (15-37); BICARBONATE 25.5 MEQ/L (21.0-32.0); BLOOD UREA NITROGEN 16 MG/DL (7-18); CHLORIDE 104 MEQ/L (98-107); CREATININE 0.72 MG/DL (0.60-1.30); GLOMERULAR FILTRATION RATE 110 ML/MIN (>89); GLUCOSE,RANDOM 133 MG/DL (74-106); SODIUM (NA) 138 MEQ/L (136-145)
[2017-08-13 05:25] LABS: ALKALINE PHOSPHATASE 124 U/L (45-117)
[2017-08-13] MEDS: METHOCARBAMOL 500 MG TAB PO SCH ×3 (05:47→21:23)
[2017-08-13] MEDS: INSULIN NovoLIN REGULAR SUPPLEMENTAL SCALE SQ SCH ×4 (05:47→17:55)
[2017-08-13] MEDS: DEXMEDETOMIDINE INJ 1,000 MCG in SODIUM CHLOR 0.9% 250 ML INJ 240 ML IV PRN (05:49)
[2017-08-13] MEDS: CHLORHEXIDINE 0.12% (ORAL KIT) 15 ML CUP MT SCH (08:00)
[2017-08-13] MEDS: LIDOCAINE HCL 5% PATCH T-DERMAL SCH (08:36)
[2017-08-13] MEDS: POTASSIUM CHLORIDE 25 MEQ EFFERVESCENT TAB PO SCH (08:37)
[2017-08-13] MEDS: THIAMINE INJ 100 MG in SODIUM CHLORIDE 0.9% INJ 100 ML IV SCH (08:37)
[2017-08-13] MEDS: ENOXAPARIN SODIUM 40 MG/0.4 ML SYRINGE SQ SCH (08:38)
[2017-08-13] MEDS: AMIODARONE 200 MG TAB PO SCH ×2 (08:38→20:21)
[2017-08-13] MEDS: MULTIVITAMIN TAB PO SCH (08:38)
[2017-08-13] MEDS: METOPROLOL TARTRATE 25 MG TAB PO SCH ×2 (08:38→20:21)
[2017-08-13] MEDS: QUEtiapine FUMARATE 100 MG TAB PO SCH ×2 (08:38→20:21)
[2017-08-13] MEDS: FUROSEMIDE 20 MG/2 ML VIAL IV PUSH SCH (08:38)
[2017-08-13] MEDS: FOLIC ACID 1 MG TAB PO SCH (08:38)
[2017-08-13] MEDS: LACTULOSE SYRUP 20 GM/30 ML CUP PO SCH (08:38)
[2017-08-13] MEDS: DOCUSATE SODIUM 100 MG/10 ML UDC PO SCH ×2 (08:39→20:21)
[2017-08-13] MEDS: SODIUM CHLORIDE 0.9% FLUSH 10 ML FLUSH IV FLUSH SCH ×2 (08:39→20:42)
[2017-08-13] MEDS: MAGNESIUM HYDROXIDE SUSP 30 ML CUP PO SCH ×2 (08:39→20:41)
[2017-08-13] MEDS: SENNOSIDES SYRUP 8.8 MG/5 ML CUP PO SCH (08:39)
[2017-08-13] MEDS: POLYETHYLENE GLYCOL 17 GM PKG NG SCH ×2 (08:39→20:21)
[2017-08-13] MEDS: fentaNYL 50 MCG/HR PATCH T-DERMAL SCH (10:29)
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
[2017-08-13] MEDS ORDERED: hydrALAZINE HCL 20 MG/ML VIAL IV PUSH PRN (16:15)
[2017-08-13] MEDS ORDERED: oxyCODONE/ACETAMINOPHEN 5 MG/325 MG TAB PO PRN (16:15)
[2017-08-13] MEDS ORDERED: ENALAPRILAT 1.25 MG/ML VIAL IV PUSH PRN (16:15)
[2017-08-13] MEDS: MORPHINE SULFATE 2 MG/ML INJ IV PUSH PRN ×3 (17:10→23:32)
[2017-08-13] MEDS: RESP: ALBUTEROL 2.5 MG/3 ML NEB (PRN) NEB (18:19)
[2017-08-13] MEDS: PANTOPRAZOLE SODIUM 40 MG VIAL IV PUSH SCH (21:21)
[2017-08-13] MEDS: oxyCODONE/ACETAMINOPHEN 7.5 MG/325 MG TAB PO PRN (21:23)
[2017-08-14] VITALS (9 sets, daily range): BP systolic 132–183; BP diastolic 77–105; PULSE 96–112; RESP 19–30; TEMP 98.3–98.6; O2SAT 94–100
[2017-08-14] MEDS: oxyCODONE/ACETAMINOPHEN 7.5 MG/325 MG TAB PO PRN ×2 (01:40→06:18)
[2017-08-14] MEDS: MORPHINE SULFATE 2 MG/ML INJ IV PUSH PRN ×6 (03:17→21:12)
[2017-08-14 05:02] LABS: ALBUMIN 2.4 GM/DL (3.4-5.0); ALT (GPT) 20 U/L (12-78); AST (GOT) 33 U/L (15-37); BICARBONATE 26.4 MEQ/L (21.0-32.0); BLOOD UREA NITROGEN 21 MG/DL (7-18); CALCIUM 8.5 MG/DL (8.5-10.1); CHLORIDE 105 MEQ/L (98-107); CREATININE 0.71 MG/DL (0.60-1.30); GLOMERULAR FILTRATION RATE 112 ML/MIN (>89); GLUCOSE,RANDOM 115 MG/DL (74-106); MAGNESIUM 2.2 MG/DL (1.5-2.5); PHOSPHORUS 3.4 MG/DL (2.5-4.9); SODIUM (NA) 141 MEQ/L (136-145)
[2017-08-14 05:05] LABS: ALKALINE PHOSPHATASE 156 U/L (45-117); TOTAL BILIRUBIN ADULT 1.1 MG/DL (0.2-1.0); TOTAL PROTEIN 6.7 GM/DL (6.4-8.2)
--- NOTE | 2017-08-14 05:42 | RADRPT ---
EXAM DATE/TIME: 08/14/2017 04:43 [facility] COMPARISON: CHEST SINGLE AP, August 13, 2017, 3:34. INDICATIONS : Post trauma. MEDICAL HISTORY : None. SURGICAL HISTORY : None. ENCOUNTER: Subsequent ACUITY: 1 week PAIN SCORE: Non-responsive. LOCATION: Bilateral chest FINDINGS: A single portable frontal view of the chest shows interval removal of a left thoracostomy tube. No pn eumothorax. Consolidation remains at the left base. This is unchanged. Tiny left effusion is stable. Right lung is clear. Left-sided rib fractures. Heart is normal in size. CONCLUSION: Left thoracostomy tube removal without pneumothorax. Unchanged left basilar consolidation and tiny le ft effusion. Elmer Llamas Jr., MD on August 14, 2017 at 5:39 Board Certified Radiologist. This report was verified electronically.
[2017-08-14] MEDS: ARTIFICIAL TEARS OPTH SOLN 15 ML BTL EACH EYE SCH ×2 (06:00→14:43)
[2017-08-14] MEDS: INSULIN NovoLIN REGULAR SUPPLEMENTAL SCALE SQ SCH ×4 (06:00→18:00)
[2017-08-14] MEDS: METHOCARBAMOL 500 MG TAB PO SCH (06:18)
[2017-08-14 06:58] LABS: HEMOGLOBIN 13.9 GM/DL (13.0-17.0); RED BLOOD COUNT 4.39 MIL/MM3 (4.50-5.90); WHITE BLOOD COUNT 18.7 TH/MM3 (4.0-11.0)
[2017-08-14 06:59] LABS: AUTOMATED NEUTROPHIL # 13.5 TH/MM3 (1.8-7.7); BASOPHIL # 0.2 TH/MM3 (0-0.2); BASOPHIL % 1.1 % (0.0-2.0); EOSINOPHIL # 0.2 TH/MM3 (0-0.4); EOSINOPHIL % 1.1 % (0.0-4.0); HEMATOCRIT 41.4 % (39.0-51.0); LYMPH % 9.3 % (9.0-44.0); LYMPHOCYTE # 1.7 TH/MM3 (1.0-4.8); MEAN CELL VOLUME 94.3 FL (80.0-100.0); MEAN CORPUSCULAR HEMOGLOBIN 31.6 PG (27.0-34.0); MEAN CORPUSCULAR HGB CONC 33.5 % (32.0-36.0); MEAN PLATELET VOLUME 9.8 FL (7.0-11.0); MONO % 16.2 % (0.0-8.0); NEUT % 72.3 % (16.0-70.0); PLATELET COUNT 802 TH/MM3 (150-450); RED CELL DISTRIBUTION WIDTH 18.5 % (11.6-17.2)
[2017-08-14] MEDS: POTASSIUM CHLORIDE 25 MEQ EFFERVESCENT TAB PO SCH (08:39)
[2017-08-14] MEDS: POLYETHYLENE GLYCOL 17 GM PKG NG SCH ×2 (08:39→21:58)
[2017-08-14] MEDS: DOCUSATE SODIUM 50 MG/SENNA 8.6 MG TAB PO SCH ×2 (08:39→21:59)
[2017-08-14] MEDS: AMIODARONE 200 MG TAB PO SCH ×2 (08:40→21:59)
[2017-08-14] MEDS: SODIUM CHLORIDE 0.9% FLUSH 10 ML FLUSH IV FLUSH SCH ×2 (08:40→22:00)
[2017-08-14] MEDS: QUEtiapine FUMARATE 100 MG TAB PO SCH ×2 (08:40→21:59)
[2017-08-14] MEDS: MULTIVITAMIN TAB PO SCH (08:40)
[2017-08-14] MEDS: FOLIC ACID 1 MG TAB PO SCH (08:40)
[2017-08-14] MEDS: FAMOTIDINE 20 MG TAB PO SCH ×2 (08:40→21:59)
[2017-08-14] MEDS: FUROSEMIDE 20 MG/2 ML VIAL IV PUSH SCH (08:40)
[2017-08-14] MEDS: METOPROLOL TARTRATE 25 MG TAB PO SCH ×2 (08:40→21:58)
[2017-08-14] MEDS: MAGNESIUM HYDROXIDE SUSP 30 ML CUP PO SCH ×2 (08:40→21:59)
[2017-08-14] MEDS: ENOXAPARIN SODIUM 40 MG/0.4 ML SYRINGE SQ SCH (09:44)
[2017-08-14] MEDS: DIAZEPAM 2 MG TAB PO SCH ×3 (09:44→21:59)
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
[2017-08-14] MEDS: IBUPROFEN 800 MG TAB PO SCH ×2 (12:25→17:26)
--- NOTE | 2017-08-14 16:57 | EKG ---
Date Performed: 08/13/2017 Time Performed: 16:31:12 PTAGE: 62 years EKG: Sinus tachycardia with PVC(s). Inferior/lateral ST-T changes are nonspecific When compared to previous tracing, there is now evidence of Sinus tachycardia with premature ventricular contractio ns. Abnormal ECG PREVIOUS TRACING : 08/09/2017 00.41.10 DOCTOR: Re Veloz Interpretating Date/Time 08/14/2017 16:56:07
[2017-08-15] VITALS (8 sets, daily range): BP systolic 110–168; BP diastolic 76–99; PULSE 94–112; RESP 20–24; TEMP 96.3–98.8; O2SAT 92–100
[2017-08-15] MEDS: MORPHINE SULFATE 2 MG/ML INJ IV PUSH PRN (02:16)
[2017-08-15 05:49] LABS: AUTOMATED NEUTROPHIL # 12.2 TH/MM3 (1.8-7.7); BASOPHIL # 0.1 TH/MM3 (0-0.2); BASOPHIL % 0.8 % (0.0-2.0); EOSINOPHIL # 0.4 TH/MM3 (0-0.4); EOSINOPHIL % 2.1 % (0.0-4.0); HEMOGLOBIN 13.1 GM/DL (13.0-17.0); LYMPH % 11.3 % (9.0-44.0); LYMPHOCYTE # 1.9 TH/MM3 (1.0-4.8); MEAN CELL VOLUME 96.3 FL (80.0-100.0); MEAN CORPUSCULAR HEMOGLOBIN 30.8 PG (27.0-34.0); MEAN PLATELET VOLUME 8.9 FL (7.0-11.0); MONO % 13.7 % (0.0-8.0); MONOCYTE # 2.3 TH/MM3 (0-0.9); NEUT % 72.1 % (16.0-70.0); PLATELET COUNT 918 TH/MM3 (150-450); RED BLOOD COUNT 4.25 MIL/MM3 (4.50-5.90); RED CELL DISTRIBUTION WIDTH 18.5 % (11.6-17.2); WHITE BLOOD COUNT 16.9 TH/MM3 (4.0-11.0)
[2017-08-15] MEDS: INSULIN NovoLIN REGULAR SUPPLEMENTAL SCALE SQ SCH ×2 (06:00)
[2017-08-15 06:02] LABS: ALBUMIN 2.8 GM/DL (3.4-5.0); ALT (GPT) 21 U/L (12-78); AST (GOT) 32 U/L (15-37); BICARBONATE 25.6 MEQ/L (21.0-32.0); BLOOD UREA NITROGEN 28 MG/DL (7-18); CALCIUM 8.7 MG/DL (8.5-10.1); CHLORIDE 104 MEQ/L (98-107); CREATININE 1.03 MG/DL (0.60-1.30); GLOMERULAR FILTRATION RATE 73 ML/MIN (>89); GLUCOSE,RANDOM 107 MG/DL (74-106); SODIUM (NA) 141 MEQ/L (136-145)
[2017-08-15 06:04] LABS: ALKALINE PHOSPHATASE 208 U/L (45-117); TOTAL BILIRUBIN ADULT 0.9 MG/DL (0.2-1.0); TOTAL PROTEIN 7.1 GM/DL (6.4-8.2)
[2017-08-15] MEDS: DIAZEPAM 2 MG TAB PO SCH ×3 (06:41→21:24)
[2017-08-15] MEDS: IBUPROFEN 800 MG TAB PO SCH ×4 (06:41→18:14)
--- NOTE | 2017-08-15 07:20 | RADRPT ---
EXAM DATE/TIME: 08/15/2017 06:28 [facility] COMPARISON: CHEST SINGLE AP, August 14, 2017, 4:43. CT THORAX W CONTRAST, August 02, 2017, 20:11. INDICATIONS : Short of breath. MEDICAL HISTORY : None. SURGICAL HISTORY : None. ENCOUNTER: Subsequent ACUITY: 2 weeks PAIN SCORE: 08/22 LOCATION: Bilateral chest FINDINGS: Subacute rib fractures again seen on the left. There is probably a left fibrothorax developing. Patch y consolidation of the left lung is similar to yesterday. I don't see a large effusion. No pneumothor ax. Right lung remains clear. Heart size stable, within normal limits. 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 Jung Cooley MD on August 15, 2017 at 7:18 Board Certified Radiologist. This report was verified electronically.
[2017-08-15 07:32] LABS: BANDS 3 % (0-6); BASOPHILS 1 % (0-2); LYMPHOCYTES 8 % (9-44); MONOCYTES 10 % (0-8); NEUTROPHIL # MANUAL DIFF 13.5 TH/MM3 (1.8-7.7); POLYS (SEG NEUTROPHILS) 77 % (16-70)
[2017-08-15] MEDS: MAGNESIUM HYDROXIDE SUSP 30 ML CUP PO SCH ×2 (09:00→21:27)
[2017-08-15] MEDS: POTASSIUM CHLORIDE 25 MEQ EFFERVESCENT TAB PO SCH (09:00)
[2017-08-15] MEDS: POLYETHYLENE GLYCOL 17 GM PKG NG SCH ×2 (09:00→21:27)
[2017-08-15] MEDS: FUROSEMIDE 20 MG TAB PO SCH (09:00)
[2017-08-15] MEDS: DOCUSATE SODIUM 50 MG/SENNA 8.6 MG TAB PO SCH ×2 (09:00→21:27)
[2017-08-15] MEDS: QUEtiapine FUMARATE 100 MG TAB PO SCH ×3 (09:01→18:13)
[2017-08-15] MEDS: AMIODARONE 200 MG TAB PO SCH ×2 (09:01→21:24)
[2017-08-15] MEDS: FAMOTIDINE 20 MG TAB PO SCH ×2 (09:01→21:27)
[2017-08-15] MEDS: ENOXAPARIN SODIUM 40 MG/0.4 ML SYRINGE SQ SCH (09:02)
[2017-08-15] MEDS: MULTIVITAMIN TAB PO SCH (09:02)
[2017-08-15] MEDS: FOLIC ACID 1 MG TAB PO SCH (09:02)
[2017-08-15] MEDS: METOPROLOL TARTRATE 25 MG TAB PO SCH ×2 (09:02→21:24)
[2017-08-15] MEDS: SODIUM CHLORIDE 0.9% FLUSH 10 ML FLUSH IV FLUSH SCH ×2 (09:02→21:27)
[2017-08-15] MEDS: HALOPERIDOL LACTATE 5 MG/ML AMP IV PUSH PRN ×2 (12:38→21:37)
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
--- NOTE | 2017-08-15 13:17 | ECHRPT ---
Indication: blunt chest trauma CONCLUSIONS Normal left ventricular size. Wall thickness is normal. The left ventricular systolic function is low normal with an estimated ejection fraction in the rang e of 50- 55%. Aortic valve sclerosis is present. BP: 154 / 95 HR: 112 Rhythm: MEASUREMENTS (Male / Female) Normal Values Technical Quality:Good 2D ECHO LV Diastolic Diameter PLAX 5.0 cm 4.2 - 5.9 / 3.9 - 5.3 cm LV Systolic Diameter PLAX 3.9 cm IVS Diastolic Thickness 1.2 cm 0.6 - 1.0 / 0.6 - 0.9 cm LVPW Diastolic Thickness 0.6 cm 0.6 - 1.0 / 0.6 - 0.9 cm LV Relative Wall Thickness 0.4 RV Internal Dim ED PLAX 2.0 cm LA Systolic Diameter LX 3.7 cm 3.0 - 4.0 / 2.7 - 3.8 cm DOPPLER AV Peak Velocity 235.0 cm/s AV Peak Gradient 22.1 mmHg LVOT Peak Velocity 173.0 cm/s LVOT Peak Gradient 12.0 mmHg Mitral E Point Velocity 123.0 cm/s TR Peak Velocity 187.0 cm/s TR Peak Gradient 14.0 mmHg Right Atrial Pressure 10.0 mmHg Pulmonary Artery Systolic Pressu 24.0 mmHg Right Ventricular Systolic Press 24.0 mmHg FINDINGS LEFT VENTRICLE Normal left ventricular size. Wall thickness is normal. The left ventricular systolic function is low normal with an estimated ejection fraction in the rang e of 50- 55%. RIGHT VENTRICLE Normal right ventricular size and systolic function. LEFT ATRIUM The left atrial size is normal. RIGHT ATRIUM The right atrial size is normal. ATRIAL SEPTUM Normal atrial septal thickness without atrial level shunting by limited color doppler interrogation. AORTA The aortic root and proximal ascending aorta are normal in size on limited imaging. MITRAL VALVE Structurally normal mitral valve. No mitral valve stenosis or regurgitation. AORTIC VALVE Aortic valve sclerosis is present. TRICUSPID VALVE Structurally normal tricuspid valve. No tricuspid valve stenosis or regurgitation. PULMONARY VALVE No pulmonary valve regurgitation or stenosis. VESSELS The inferior vena cava is normal in size. PERICARDIUM No pericardial effusion. Phil Barros MD (Electronically Signed) Final Date:15 August 2017 13:17
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
[2017-08-15] MEDS: RESP: ALBUTEROL 2.5 MG/IPRATROPIUM 0.5 MG NEB (SCH) NEB ×2 (16:00→20:57)
[2017-08-15] MEDS: OLANZapine IM 10 MG VIAL IM PRN (17:02)
[2017-08-15] MEDS ORDERED: LORazepam 2 MG/ML VIAL IV ONE (18:15)
[2017-08-15] MEDS: RESP: ALBUTEROL 2.5 MG/3 ML NEB (PRN) NEB (18:34)
[2017-08-16] VITALS (7 sets, daily range): BP systolic 148–163; BP diastolic 82–98; PULSE 81–98; RESP 18–24; TEMP 96.9–99.5; O2SAT 93–95
[2017-08-16] MEDS: IBUPROFEN 800 MG TAB PO SCH ×4 (00:01→18:53)
[2017-08-16] MEDS: OLANZapine IM 10 MG VIAL IM PRN (00:59)
[2017-08-16 04:56] LABS: AUTOMATED NEUTROPHIL # 10.6 TH/MM3 (1.8-7.7); BASOPHIL # 0.1 TH/MM3 (0-0.2); EOSINOPHIL # 0.5 TH/MM3 (0-0.4); HEMATOCRIT 36.3 % (39.0-51.0); LYMPH % 9.6 % (9.0-44.0); LYMPHOCYTE # 1.5 TH/MM3 (1.0-4.8); MEAN CELL VOLUME 94.9 FL (80.0-100.0); MEAN CORPUSCULAR HEMOGLOBIN 31.4 PG (27.0-34.0); MEAN CORPUSCULAR HGB CONC 33.1 % (32.0-36.0); MEAN PLATELET VOLUME 8.9 FL (7.0-11.0); MONO % 15.9 % (0.0-8.0); MONOCYTE # 2.4 TH/MM3 (0-0.9); NEUT % 70.5 % (16.0-70.0); PLATELET COUNT 1044 TH/MM3 (150-450); RED BLOOD COUNT 3.83 MIL/MM3 (4.50-5.90); RED CELL DISTRIBUTION WIDTH 18.1 % (11.6-17.2); WHITE BLOOD COUNT 15.1 TH/MM3 (4.0-11.0)
[2017-08-16] MEDS: DIAZEPAM 2 MG TAB PO SCH ×3 (05:32→21:41)
[2017-08-16 06:57] LABS: BANDS 2 % (0-6); BASOPHILS 3 % (0-2); LYMPHOCYTES 9 % (9-44); METAMYELOCYTES 1 % (0-1); MONOCYTES 14 % (0-8); MYELOCYTES 1 % (0-0); POLYS (SEG NEUTROPHILS) 69 % (16-70)
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
[2017-08-16] MEDS: RESP: ALBUTEROL 2.5 MG/IPRATROPIUM 0.5 MG NEB (SCH) NEB ×4 (08:00→20:00)
[2017-08-16] MEDS: FAMOTIDINE 20 MG TAB PO SCH ×2 (09:44→21:38)
[2017-08-16] MEDS: FOLIC ACID 1 MG TAB PO SCH (09:44)
[2017-08-16] MEDS: QUEtiapine FUMARATE 100 MG TAB PO SCH ×3 (09:44→18:52)
[2017-08-16] MEDS: MAGNESIUM HYDROXIDE SUSP 30 ML CUP PO SCH ×2 (09:44→21:38)
[2017-08-16] MEDS: AMIODARONE 200 MG TAB PO SCH ×2 (09:44→21:38)
[2017-08-16] MEDS: DOCUSATE SODIUM 50 MG/SENNA 8.6 MG TAB PO SCH ×2 (09:44→21:37)
[2017-08-16] MEDS: FUROSEMIDE 20 MG TAB PO SCH (09:44)
[2017-08-16] MEDS: POLYETHYLENE GLYCOL 17 GM PKG NG SCH ×2 (09:44→21:38)
[2017-08-16] MEDS: MULTIVITAMIN TAB PO SCH (09:44)
[2017-08-16] MEDS: SODIUM CHLORIDE 0.9% FLUSH 10 ML FLUSH IV FLUSH SCH ×2 (09:45→21:38)
[2017-08-16] MEDS: POTASSIUM CHLORIDE 25 MEQ EFFERVESCENT TAB PO SCH (09:45)
[2017-08-16] MEDS: METOPROLOL TARTRATE 25 MG TAB PO SCH ×2 (09:45→21:38)
[2017-08-16] MEDS: fentaNYL 50 MCG/HR PATCH T-DERMAL SCH (09:51)
[2017-08-16] MEDS: ENOXAPARIN SODIUM 40 MG/0.4 ML SYRINGE SQ SCH (09:51)
[2017-08-16] MEDS ORDERED: REMOVE OLD DURAGESIC (FENTANYL) PATCH T-DERMAL SCH (10:00)
[2017-08-16] MEDS: HALOPERIDOL LACTATE 5 MG/ML AMP IV PUSH PRN ×2 (10:15→15:13)
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
[2017-08-16] MEDS: VALPROIC ACID 250 MG CAP PO SCH ×2 (13:26→18:53)
[2017-08-16] MEDS: traZODone HCL 50 MG TAB PO SCH (21:38)
[2017-08-17] VITALS (7 sets, daily range): BP systolic 135–177; BP diastolic 75–102; PULSE 84–105; RESP 18–26; TEMP 96.3–100.2; O2SAT 92–94
[2017-08-17] MEDS: HALOPERIDOL LACTATE 5 MG/ML AMP IV PUSH PRN (00:12)
[2017-08-17] MEDS: IBUPROFEN 800 MG TAB PO SCH ×4 (00:13→17:54)
[2017-08-17] MEDS: OLANZapine IM 10 MG VIAL IM PRN (00:38)
[2017-08-17] MEDS: DIAZEPAM 2 MG TAB PO SCH ×3 (06:02→21:42)
[2017-08-17] MEDS: RESP: ALBUTEROL 2.5 MG/IPRATROPIUM 0.5 MG NEB (SCH) NEB ×5 (07:48→19:45)
[2017-08-17] MEDS: FOLIC ACID 1 MG TAB PO SCH (10:05)
[2017-08-17] MEDS: DOCUSATE SODIUM 50 MG/SENNA 8.6 MG TAB PO SCH ×2 (10:05→21:43)
[2017-08-17] MEDS: POTASSIUM CHLORIDE 25 MEQ EFFERVESCENT TAB PO SCH (10:05)
[2017-08-17] MEDS: POLYETHYLENE GLYCOL 17 GM PKG NG SCH ×2 (10:05→21:43)
[2017-08-17] MEDS: AMIODARONE 200 MG TAB PO SCH ×2 (10:05→21:43)
[2017-08-17] MEDS: METOPROLOL TARTRATE 25 MG TAB PO SCH ×2 (10:06→21:43)
[2017-08-17] MEDS: FAMOTIDINE 20 MG TAB PO SCH ×2 (10:06→21:43)
[2017-08-17] MEDS: MULTIVITAMIN TAB PO SCH (10:06)
[2017-08-17] MEDS: VALPROIC ACID 250 MG CAP PO SCH ×3 (10:06→17:52)
[2017-08-17] MEDS: QUEtiapine FUMARATE 100 MG TAB PO SCH ×3 (10:06→17:52)
[2017-08-17] MEDS: FUROSEMIDE 20 MG TAB PO SCH (10:06)
[2017-08-17] MEDS: ENOXAPARIN SODIUM 40 MG/0.4 ML SYRINGE SQ SCH (10:07)
[2017-08-17] MEDS: MAGNESIUM HYDROXIDE SUSP 30 ML CUP PO SCH ×2 (10:12→21:42)
[2017-08-17] MEDS: SODIUM CHLORIDE 0.9% FLUSH 10 ML FLUSH IV FLUSH SCH ×2 (10:20→21:43)
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
--- NOTE | 2017-08-17 14:10 | PD.PSY.CON ---
Provisional Diagnosis Admission Date Aug 02, 2017 at 20:16 [place]. Delirium History of Present Illness Service Psychiatry Consult Requested By primary attending Reason for Consult agitation/aggressiveness Primary Care Physician Unknown Past Family Social History Coded Allergies: Sulfa (Sulfonamide Antibiotics) (Verified Allergy, Unknown, 08/12/17) cephalexin (Verified Allergy, Unknown, 08/12/17) nitroglycerin (Verified Allergy, Unknown, 08/12/17) penicillin G (Verified Allergy, Unknown, 08/12/17) Current Medications Medications (Trade) Dose Ordered Sig/Candy Route Start Time Stop Time Status Last Admin (NS Flush) 2 ml UNSCH PRN IV FLUSH 08/02/17 21:45 (NS Flush) 2 ml BID IV FLUSH 08/03/17 09:00 08/17/17 10:20 (Zofran Inj) 4 mg Q6H PRN IV PUSH 08/02/17 21:45 (Narcan Inj) 0.4 mg UNSCH PRN IV PUSH 08/02/17 21:45 (Folate) 1 mg DAILY PO 08/03/17 09:00 08/17/17 10:05 (Theragran) 1 tab DAILY PO 08/03/17 09:00 08/17/17 10:06 (Albuterol Neb) 2.5 mg Q2HR NEB PRN NEB 08/03/17 07:00 08/15/17 18:34 (K-Lyte Cl Eff) 25 meq DAILY PO 08/04/17 10:00 08/17/17 10:05 (Cordarone) 200 mg Q12HR PO 08/05/17 09:00 08/17/17 10:05 (Milk Of Magnesia Liq) 30 ml BID PO 08/05/17 09:00 08/17/17 10:12 (Miralax) 17 gm BID NG 08/07/17 09:00 08/17/17 10:05 (Lopressor) 25 mg Q12HR PO 08/08/17 09:00 08/17/17 10:06 (Lovenox Inj) 40 mg Q24H SQ 08/08/17 10:00 08/17/17 10:07 (Morphine Inj) 2 mg Q3H PRN IV PUSH 08/13/17 16:15 08/15/17 02:16 (Vasotec Inj) 1.25 mg Q6H PRN IV PUSH 08/13/17 16:15 08/13/17 17:10 (Apresoline Inj) 10 mg Q4H PRN IV PUSH 08/13/17 16:15 08/13/17 18:09 (Pepcid) 20 mg BID PO 08/14/17 09:00 08/17/17 10:06 (Tylenol) 650 mg Q4H PRN PO 08/14/17 06:30 (Desi-Colace) 1 tab BID PO 08/14/17 09:00 08/17/17 10:05 (Roxicodone) 5 mg Q3HR PRN PO 08/14/17 09:30 (Roxicodone) 10 mg Q3HR PRN PO 08/14/17 09:30 08/17/17 10:14 (Valium) 2 mg Q8HR PO 08/14/17 09:30 08/17/17 06:02 (Motrin) 800 mg Q6HR PO 08/14/17 12:00 08/19/17 11:59 08/17/17 00:13 (Lasix) 20 mg DAILY PO 08/15/17 09:00 08/17/17 10:06 (Haldol Inj) 5 mg Q6HR PRN IV PUSH 08/15/17 12:15 08/17/17 00:12 (SEROquel) 100 mg TID PO 08/15/17 13:00 08/17/17 10:06 (ZyPREXA INJ) 10 mg Q6HR PRN IM 08/15/17 13:45 08/17/17 00:38 (Duoneb Neb) 1 ampule Q4HR WHILE AWAKE NEB NEB 08/15/17 16:00 08/17/17 13:37 (Depakene) 500 mg TID PO 08/16/17 13:00 08/17/17 10:06 (Desyrel) 150 mg HS PO 08/16/17 21:00 08/16/17 21:38 Physical Exam Vital Signs Vital Signs Date Time Temp Pulse Resp B/P (MAP) Pulse Ox O2 Delivery O2 Flow Rate FiO2 08/17/17 11:51 97.6 84 18 154/94 (114) 94 08/16/17 21:45 Room Air 08/16/17 19:54 21 1/4/18 07:50 3.00 I/O 08/17/17 08/17/17 08/18/17 08:00 16:00 00:00 Intake Total 480 ml Output Total 600 ml Balance -120 ml Lab Results Date/Time Source Procedure Growth Status 08/08/17 15:00 Blood Peripheral Aerobic Blood Culture - Final NO GROWTH IN 5 DAYS Complete 08/08/17 15:00 Blood Peripheral Anaerobic Blood Culture - Final NO GROWTH IN 5 DAYS Complete 08/08/17 00:00 Sputum Endotracheal Gram Stain - Final Complete 08/08/17 00:00 Sputum Endotracheal Sputum Culture - Final LIGHT GROWTH NORMAL RESPIRATORY [place] Complete 08/08/17 00:00 Urine Catheterized Urine Urine Culture - Final NO GROWTH IN 48 HOURS. Complete Assessment & Plan Problem List: (1) Delirium ICD Codes: R41.0 - Disorientation, unspecified Assessment & Plan: I have arrived in the floor and visited the patient for a psychiatric evolution, but he was recently medicated with ETO and was too sedated to participate in the inservice at this moment. I will sign out the case to Dr. Middleton, chyron operator this weekend. Assessment & Plan Estimated LOS: Navin Welch MD Aug 17, 2017 14:10
[2017-08-17] MEDS: traZODone HCL 50 MG TAB PO SCH (21:43)
[2017-08-18] VITALS (7 sets, daily range): BP systolic 135–153; BP diastolic 78–99; PULSE 72–119; RESP 18–22; TEMP 96.2–98; O2SAT 92–94
[2017-08-18 05:01] LABS: AUTOMATED NEUTROPHIL # 6.3 TH/MM3 (1.8-7.7); BASOPHIL # 0.1 TH/MM3 (0-0.2); BASOPHIL % 1.3 % (0.0-2.0); EOSINOPHIL # 0.6 TH/MM3 (0-0.4); EOSINOPHIL % 5.7 % (0.0-4.0); HEMOGLOBIN 11.8 GM/DL (13.0-17.0); LYMPH % 17.6 % (9.0-44.0); LYMPHOCYTE # 1.9 TH/MM3 (1.0-4.8); MEAN CORPUSCULAR HEMOGLOBIN 31.2 PG (27.0-34.0); MEAN CORPUSCULAR HGB CONC 32.8 % (32.0-36.0); MEAN PLATELET VOLUME 8.8 FL (7.0-11.0); MONO % 16.8 % (0.0-8.0); MONOCYTE # 1.8 TH/MM3 (0-0.9); NEUT % 58.6 % (16.0-70.0); PLATELET COUNT 996 TH/MM3 (150-450); RED BLOOD COUNT 3.78 MIL/MM3 (4.50-5.90); RED CELL DISTRIBUTION WIDTH 18.4 % (11.6-17.2); WHITE BLOOD COUNT 10.8 TH/MM3 (4.0-11.0)
[2017-08-18 05:29] LABS: BICARBONATE 28.1 MEQ/L (21.0-32.0); CALCIUM 7.5 MG/DL (8.5-10.1); CREATININE 1.04 MG/DL (0.60-1.30)
[2017-08-18] MEDS: IBUPROFEN 800 MG TAB PO SCH ×6 (05:48→22:09)
[2017-08-18] MEDS: DIAZEPAM 2 MG TAB PO SCH ×3 (05:49→22:09)
[2017-08-18] MEDS: DOCUSATE SODIUM 50 MG/SENNA 8.6 MG TAB PO SCH ×2 (08:53→20:06)
[2017-08-18] MEDS: AMIODARONE 200 MG TAB PO SCH ×2 (08:53→20:06)
[2017-08-18] MEDS: METOPROLOL TARTRATE 25 MG TAB PO SCH ×2 (08:53→20:06)
[2017-08-18] MEDS: VALPROIC ACID 250 MG CAP PO SCH ×3 (08:54→18:04)
[2017-08-18] MEDS: QUEtiapine FUMARATE 100 MG TAB PO SCH ×3 (08:54→18:00)
[2017-08-18] MEDS: FAMOTIDINE 20 MG TAB PO SCH ×2 (08:54→20:06)
[2017-08-18] MEDS: POTASSIUM CHLORIDE 25 MEQ EFFERVESCENT TAB PO SCH (08:54)
[2017-08-18] MEDS: MULTIVITAMIN TAB PO SCH (08:54)
[2017-08-18] MEDS: MAGNESIUM HYDROXIDE SUSP 30 ML CUP PO SCH ×2 (08:55→20:07)
[2017-08-18] MEDS: POLYETHYLENE GLYCOL 17 GM PKG NG SCH ×2 (08:55→20:07)
[2017-08-18] MEDS: FUROSEMIDE 20 MG TAB PO SCH (08:55)
[2017-08-18] MEDS: FOLIC ACID 1 MG TAB PO SCH (08:55)
[2017-08-18] MEDS: SODIUM CHLORIDE 0.9% FLUSH 10 ML FLUSH IV FLUSH SCH ×2 (08:56→20:07)
[2017-08-18] MEDS: RESP: ALBUTEROL 2.5 MG/IPRATROPIUM 0.5 MG NEB (SCH) NEB ×4 (08:58→19:06)
[2017-08-18] MEDS: ENOXAPARIN SODIUM 40 MG/0.4 ML SYRINGE SQ SCH (09:05)
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
[2017-08-18] MEDS ORDERED: HAEMOPH B POLYSACCH CONJ VACCINE 0.5 ML VIAL IM ONE (13:45)
[2017-08-18] MEDS ORDERED: PNEUMOCOCCAL POLYVALENT INJ 25 MCG/0.5 ML SYR IM ONE (13:45)
[2017-08-18] MEDS ORDERED: MENINGOCOCCAL CONJUGATE VACCINE 0.5 ML VIAL IM ONE (13:45)
[2017-08-18] MEDS: traZODone HCL 50 MG TAB PO SCH (20:07)
[2017-08-19] VITALS: BP 139/78; PULSE 69; RESP 18; TEMP 96.9; O2SAT 95
[2017-08-19] MEDS: IBUPROFEN 800 MG TAB PO SCH (06:00)
[2017-08-19] MEDS: DIAZEPAM 2 MG TAB PO SCH (06:08)
[2017-08-19 08:00] VITALS: BP 161/97; PULSE 78; RESP 18; TEMP 96.7; O2SAT 94
[2017-08-19] MEDS: POLYETHYLENE GLYCOL 17 GM PKG NG SCH ×2 (08:19→20:38)
[2017-08-19] MEDS: POTASSIUM CHLORIDE 25 MEQ EFFERVESCENT TAB PO SCH (08:19)
[2017-08-19] MEDS: QUEtiapine FUMARATE 100 MG TAB PO SCH ×3 (08:20→17:55)
[2017-08-19] MEDS: VALPROIC ACID 250 MG CAP PO SCH ×3 (08:20→20:44)
[2017-08-19] MEDS: MULTIVITAMIN TAB PO SCH (08:20)
[2017-08-19] MEDS: AMIODARONE 200 MG TAB PO SCH ×2 (08:20→20:38)
[2017-08-19] MEDS: METOPROLOL TARTRATE 25 MG TAB PO SCH ×2 (08:21→20:38)
[2017-08-19] MEDS: FAMOTIDINE 20 MG TAB PO SCH ×2 (08:21→20:38)
[2017-08-19] MEDS: DOCUSATE SODIUM 50 MG/SENNA 8.6 MG TAB PO SCH ×2 (08:21→20:38)
[2017-08-19] MEDS: FOLIC ACID 1 MG TAB PO SCH (08:21)
[2017-08-19] MEDS: MAGNESIUM HYDROXIDE SUSP 30 ML CUP PO SCH ×2 (08:21→20:38)
[2017-08-19] MEDS: FUROSEMIDE 20 MG TAB PO SCH (08:21)
[2017-08-19] MEDS: SODIUM CHLORIDE 0.9% FLUSH 10 ML FLUSH IV FLUSH SCH (08:22)
[2017-08-19] MEDS: ENOXAPARIN SODIUM 40 MG/0.4 ML SYRINGE SQ SCH (08:25)
[2017-08-19] MEDS: RESP: ALBUTEROL 2.5 MG/IPRATROPIUM 0.5 MG NEB (SCH) NEB ×2 (09:20→13:16)
[2017-08-19 09:21] VITALS: O2SAT 92
[2017-08-19] MEDS: DIAZEPAM 2 MG TAB PO PRN ×2 (11:31→23:44)
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
[2017-08-19 12:00] VITALS: BP 139/84; PULSE 78; RESP 18; TEMP 97.6; O2SAT 94
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
[2017-08-19] MEDS: GABAPENTIN 300 MG CAP PO SCH ×2 (13:58→17:55)
[2017-08-19 20:00] VITALS: BP 111/61; PULSE 96; RESP 18; TEMP 98.4; O2SAT 93
[2017-08-19] MEDS: traZODone HCL 50 MG TAB PO SCH (20:38)
[2017-08-20] VITALS: BP 147/89; PULSE 86; RESP 18; TEMP 98.7; O2SAT 94
[2017-08-20] MEDS: MORPHINE SULFATE 2 MG/ML INJ IV PUSH PRN ×3 (01:39→13:37)
[2017-08-20 04:00] VITALS: BP 138/83; PULSE 90; RESP 18; TEMP 98.7; O2SAT 94
[2017-08-20] MEDS: POLYETHYLENE GLYCOL 17 GM PKG NG SCH ×2 (07:37→21:00)
[2017-08-20] MEDS: POTASSIUM CHLORIDE 25 MEQ EFFERVESCENT TAB PO SCH (07:37)
[2017-08-20] MEDS: QUEtiapine FUMARATE 100 MG TAB PO SCH ×3 (07:38→17:12)
[2017-08-20] MEDS: MULTIVITAMIN TAB PO SCH (07:38)
[2017-08-20] MEDS: MAGNESIUM HYDROXIDE SUSP 30 ML CUP PO SCH ×2 (07:38→21:00)
[2017-08-20] MEDS: FOLIC ACID 1 MG TAB PO SCH (07:39)
[2017-08-20] MEDS: FAMOTIDINE 20 MG TAB PO SCH ×2 (07:39→22:10)
[2017-08-20] MEDS: VALPROIC ACID 250 MG CAP PO SCH ×2 (07:39→22:10)
[2017-08-20] MEDS: GABAPENTIN 300 MG CAP PO SCH (07:39)
[2017-08-20] MEDS: DOCUSATE SODIUM 50 MG/SENNA 8.6 MG TAB PO SCH ×2 (07:40→22:10)
[2017-08-20] MEDS: AMIODARONE 200 MG TAB PO SCH ×2 (07:40→22:09)
[2017-08-20] MEDS: METOPROLOL TARTRATE 25 MG TAB PO SCH ×2 (07:42→22:10)
[2017-08-20 08:12] VITALS: BP 153/96; PULSE 87; RESP 18; TEMP 98; O2SAT 93
[2017-08-20] MEDS: ENOXAPARIN SODIUM 40 MG/0.4 ML SYRINGE SQ SCH (08:56)
[2017-08-20] MEDS: FUROSEMIDE 20 MG TAB PO SCH (08:57)
[2017-08-20] MEDS: DIAZEPAM 2 MG TAB PO PRN ×2 (10:30→22:16)
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
[2017-08-20 12:00] VITALS: BP 121/85; PULSE 62; RESP 18; TEMP 97.8; O2SAT 98
[2017-08-20] MEDS: GABAPENTIN 400 MG CAP PO SCH ×2 (13:34→17:13)
[2017-08-20 16:00] VITALS: BP 140/85; PULSE 80; RESP 17; TEMP 97.8; O2SAT 93
[2017-08-20 20:20] VITALS: BP 115/79; PULSE 88; RESP 15; TEMP 98.5; O2SAT 92
[2017-08-20] MEDS: traZODone HCL 50 MG TAB PO SCH (22:09)
[2017-08-20] MEDS: SODIUM CHLORIDE 0.9% FLUSH 10 ML FLUSH IV FLUSH SCH (22:11)
[2017-08-21] VITALS: BP 151/86; PULSE 86; RESP 16; TEMP 97.4; O2SAT 94
[2017-08-21] MEDS: MORPHINE SULFATE 2 MG/ML INJ IV PUSH PRN ×4 (01:00→11:53)
[2017-08-21] MEDS: SODIUM CHLORIDE 0.9% FLUSH 10 ML FLUSH IV FLUSH SCH ×3 (01:01→20:04)
[2017-08-21 04:26] LABS: BASOPHIL # 0.1 TH/MM3 (0-0.2); BASOPHIL % 0.9 % (0.0-2.0); EOSINOPHIL # 0.5 TH/MM3 (0-0.4); HEMATOCRIT 44.4 % (39.0-51.0); HEMOGLOBIN 14.5 GM/DL (13.0-17.0); LYMPH % 18.4 % (9.0-44.0); LYMPHOCYTE # 2.3 TH/MM3 (1.0-4.8); MEAN CELL VOLUME 97.1 FL (80.0-100.0); MEAN CORPUSCULAR HEMOGLOBIN 31.6 PG (27.0-34.0); MEAN CORPUSCULAR HGB CONC 32.6 % (32.0-36.0); MEAN PLATELET VOLUME 8.8 FL (7.0-11.0); MONO % 13.8 % (0.0-8.0); MONOCYTE # 1.7 TH/MM3 (0-0.9); NEUT % 62.9 % (16.0-70.0); PLATELET COUNT 909 TH/MM3 (150-450); RED BLOOD COUNT 4.58 MIL/MM3 (4.50-5.90); WHITE BLOOD COUNT 12.7 TH/MM3 (4.0-11.0)
[2017-08-21 04:42] LABS: ALBUMIN 2.8 GM/DL (3.4-5.0); ALKALINE PHOSPHATASE 259 U/L (45-117); ALT (GPT) 23 U/L (12-78); AST (GOT) 22 U/L (15-37); BICARBONATE 28.7 MEQ/L (21.0-32.0); BLOOD UREA NITROGEN 14 MG/DL (7-18); CALCIUM 8.6 MG/DL (8.5-10.1); CHLORIDE 103 MEQ/L (98-107); CREATININE 0.99 MG/DL (0.60-1.30); GLOMERULAR FILTRATION RATE 76 ML/MIN (>89); GLUCOSE,RANDOM 96 MG/DL (74-106); SODIUM (NA) 138 MEQ/L (136-145); TOTAL BILIRUBIN ADULT 0.3 MG/DL (0.2-1.0); TOTAL PROTEIN 7.2 GM/DL (6.4-8.2)
[2017-08-21 06:00] VITALS: BP 137/82; PULSE 82; RESP 16; TEMP 97.4; O2SAT 90
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
[2017-08-21 08:00] VITALS: BP 135/81; PULSE 88; RESP 18; TEMP 98.4; O2SAT 91
[2017-08-21] MEDS: FOLIC ACID 1 MG TAB PO SCH (08:09)
[2017-08-21] MEDS: VALPROIC ACID 250 MG CAP PO SCH ×2 (08:09→20:03)
[2017-08-21] MEDS: METOPROLOL TARTRATE 25 MG TAB PO SCH ×2 (08:09→20:02)
[2017-08-21] MEDS: AMIODARONE 200 MG TAB PO SCH ×2 (08:09→20:02)
[2017-08-21] MEDS: MULTIVITAMIN TAB PO SCH (08:09)
[2017-08-21] MEDS: FAMOTIDINE 20 MG TAB PO SCH ×2 (08:09→20:02)
[2017-08-21] MEDS: POTASSIUM CHLORIDE 25 MEQ EFFERVESCENT TAB PO SCH (08:10)
[2017-08-21] MEDS: POLYETHYLENE GLYCOL 17 GM PKG NG SCH ×2 (08:10→20:03)
[2017-08-21] MEDS: ENOXAPARIN SODIUM 40 MG/0.4 ML SYRINGE SQ SCH (08:10)
[2017-08-21] MEDS: GABAPENTIN 400 MG CAP PO SCH ×3 (08:10→17:16)
[2017-08-21] MEDS: DOCUSATE SODIUM 50 MG/SENNA 8.6 MG TAB PO SCH ×2 (08:10→20:02)
[2017-08-21] MEDS: QUEtiapine FUMARATE 100 MG TAB PO SCH ×3 (08:10→17:16)
[2017-08-21] MEDS: LACTULOSE SYRUP 20 GM/30 ML CUP PO SCH (08:14)
[2017-08-21] MEDS: MAGNESIUM HYDROXIDE SUSP 30 ML CUP PO SCH ×2 (08:14→20:02)
[2017-08-21] MEDS: FUROSEMIDE 20 MG TAB PO SCH (09:00)
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
[2017-08-21 11:28] VITALS: BP 112/70; PULSE 80; RESP 18; TEMP 97.7; O2SAT 94
[2017-08-21] MEDS ORDERED: MORPHINE SULFATE 2 MG/ML INJ IV PUSH PRN (12:45)
[2017-08-21 16:00] VITALS: BP 98/66; PULSE 72; RESP 18; TEMP 99; O2SAT 91
[2017-08-21 20:00] VITALS: BP 121/67; PULSE 85; RESP 15; TEMP 97.7; O2SAT 92
[2017-08-21] MEDS: traZODone HCL 50 MG TAB PO SCH (20:03)
[2017-08-22] VITALS: BP 127/83; PULSE 84; RESP 15; TEMP 98.5; O2SAT 92
[2017-08-22] MEDS: DIAZEPAM 2 MG TAB PO PRN ×3 (01:03→19:14)
[2017-08-22 06:42] VITALS: BP 121/71; PULSE 86; RESP 16; TEMP 96.4; O2SAT 91
[2017-08-22 07:46] VITALS: BP 126/80; PULSE 79; RESP 18; TEMP 97.7; O2SAT 91
[2017-08-22] MEDS: LACTULOSE SYRUP 20 GM/30 ML CUP PO SCH (08:54)
[2017-08-22] MEDS: POLYETHYLENE GLYCOL 17 GM PKG NG SCH ×2 (08:54→21:07)
[2017-08-22] MEDS: FAMOTIDINE 20 MG TAB PO SCH ×2 (08:54→21:07)
[2017-08-22] MEDS: MAGNESIUM HYDROXIDE SUSP 30 ML CUP PO SCH ×2 (08:54→21:07)
[2017-08-22] MEDS: MULTIVITAMIN TAB PO SCH (08:55)
[2017-08-22] MEDS: FOLIC ACID 1 MG TAB PO SCH (08:55)
[2017-08-22] MEDS: VALPROIC ACID 250 MG CAP PO SCH ×2 (08:55→21:07)
[2017-08-22] MEDS: GABAPENTIN 400 MG CAP PO SCH ×3 (08:55→18:00)
[2017-08-22] MEDS: QUEtiapine FUMARATE 100 MG TAB PO SCH ×3 (08:55→18:00)
[2017-08-22] MEDS: METOPROLOL TARTRATE 25 MG TAB PO SCH ×2 (08:55→21:08)
[2017-08-22] MEDS: AMIODARONE 200 MG TAB PO SCH ×2 (08:55→21:07)
[2017-08-22] MEDS: DOCUSATE SODIUM 50 MG/SENNA 8.6 MG TAB PO SCH ×2 (08:55→21:07)
[2017-08-22] MEDS: ENOXAPARIN SODIUM 40 MG/0.4 ML SYRINGE SQ SCH (08:59)
[2017-08-22] MEDS: FUROSEMIDE 20 MG TAB PO SCH (09:00)
[2017-08-22] MEDS: POTASSIUM CHLORIDE 25 MEQ EFFERVESCENT TAB PO SCH (09:00)
[2017-08-22] MEDS: SODIUM CHLORIDE 0.9% FLUSH 10 ML FLUSH IV FLUSH SCH ×2 (09:00→21:08)
[2017-08-22 12:00] VITALS: BP 124/84; PULSE 75; RESP 18; TEMP 97.3; O2SAT 92
[2017-08-22] MEDS ORDERED: MAGNESIUM CITRATE SOLN 300 ML BTL PO ONE (12:15)
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
[2017-08-22 16:00] VITALS: BP 116/71; PULSE 76; RESP 18; TEMP 96.9; O2SAT 92
[2017-08-22 20:55] VITALS: BP 107/69; PULSE 77; RESP 18; TEMP 97.5; O2SAT 96
[2017-08-22] MEDS: traZODone HCL 50 MG TAB PO SCH (21:08)
[2017-08-23 00:27] VITALS: BP 98/67; PULSE 74; RESP 18; TEMP 97.2; O2SAT 96
[2017-08-23] MEDS: DIAZEPAM 2 MG TAB PO PRN (04:12)
[2017-08-23 08:00] VITALS: BP 99/66; PULSE 77; RESP 17; TEMP 95.9; O2SAT 91
[2017-08-23] MEDS: LACTULOSE SYRUP 20 GM/30 ML CUP PO SCH (09:00)
[2017-08-23] MEDS: POLYETHYLENE GLYCOL 17 GM PKG NG SCH ×2 (09:00→21:00)
[2017-08-23] MEDS: DOCUSATE SODIUM 50 MG/SENNA 8.6 MG TAB PO SCH ×2 (09:00→21:00)
[2017-08-23] MEDS: GABAPENTIN 400 MG CAP PO SCH ×3 (09:47→18:28)
[2017-08-23] MEDS: VALPROIC ACID 250 MG CAP PO SCH ×2 (09:47→21:52)
[2017-08-23] MEDS: MAGNESIUM HYDROXIDE SUSP 30 ML CUP PO SCH ×2 (09:48→21:00)
[2017-08-23] MEDS: SODIUM CHLORIDE 0.9% FLUSH 10 ML FLUSH IV FLUSH SCH ×2 (09:48→21:51)
[2017-08-23] MEDS: METOPROLOL TARTRATE 25 MG TAB PO SCH ×2 (09:48→21:00)
[2017-08-23] MEDS: AMIODARONE 200 MG TAB PO SCH ×4 (09:48→21:55)
[2017-08-23] MEDS: QUEtiapine FUMARATE 100 MG TAB PO SCH ×3 (09:48→18:28)
[2017-08-23] MEDS: FOLIC ACID 1 MG TAB PO SCH (09:48)
[2017-08-23] MEDS: MULTIVITAMIN TAB PO SCH (09:48)
[2017-08-23] MEDS: FUROSEMIDE 20 MG TAB PO SCH (09:48)
[2017-08-23] MEDS: ENOXAPARIN SODIUM 40 MG/0.4 ML SYRINGE SQ SCH (09:52)
[2017-08-23 12:00] VITALS: BP 93/57; PULSE 71; RESP 17; TEMP 97.3; O2SAT 90
[2017-08-23 15:21] VITALS: BP 94/76; PULSE 72; RESP 17; TEMP 96.4
[2017-08-23 20:51] VITALS: BP 101/68; PULSE 73; RESP 18; TEMP 96.7; O2SAT 95
[2017-08-23] MEDS: traZODone HCL 50 MG TAB PO SCH (21:00)
[2017-08-24 00:55] VITALS: BP 120/61; PULSE 74; RESP 18; TEMP 96.9; O2SAT 95
[2017-08-24] MEDS: DIAZEPAM 2 MG TAB PO PRN ×3 (03:32→20:31)
[2017-08-24 04:15] VITALS: BP 157/68; PULSE 80; RESP 18; TEMP 97.4; O2SAT 95
[2017-08-24] MEDS: POLYETHYLENE GLYCOL 17 GM PKG NG SCH ×2 (07:29→20:31)
--- NOTE | 2017-08-24 07:58 | PD.ORT.PN ---
Subjective Subjective Remarks Patient seen in regular hospital bed on floor. Notes reflect noncompliance with weightbearing status of left leg.. Objective Vitals Vital Signs Date Time Temp Pulse Resp B/P (MAP) Pulse Ox O2 Delivery O2 Flow Rate FiO2 08/24/17 04:15 97.4 80 18 157/68 (97) 95 08/24/17 03:03 20 08/24/17 00:55 96.9 74 18 120/61 (80) 95 08/23/17 22:33 Nasal Cannula 2.00 08/23/17 20:51 96.7 73 18 101/68 (79) 95 08/23/17 15:21 96.4 72 17 94/76 (82) 08/23/17 12:00 97.3 71 17 93/57 (69) 90 08/23/17 08:00 95.9 77 17 99/66 (77) 91 I/O 08/23/17 08/23/17 08/23/17 08/24/17 08/24/17 08/24/17 07:00 15:00 23:00 07:00 15:00 23:00 Intake Total 240 ml 320 ml 240 ml 480 ml Output Total 400 ml Balance 240 ml 320 ml 240 ml 80 ml Intake Oral 240 ml 320 ml 240 ml 480 ml Output Urine Total 400 ml # Voids 3 3 # Bowel Movements 2 0 0 0 Result Diagram: 08/21/17 0353 08/21/17 0353 Imaging Last 24 hours Impressions Chest X-Ray 08/06/17 0600 Signed Impressions: Service Date/Time: Sunday, August 06, 2017 03:52 - CONCLUSION: Left basilar opacity is present may be due to a combination of consolidation and or pleural effusion. Jason Gong MD Objective Remarks Patient conversant Splint in place. No abnormal swelling or any drainage. Sensation normal. Wiggles his toes easily on both legs Assessment & Plan Ortho Post Op Day #: 17 Problem List: Assessment and Plan pod#17 s/p ORIF left ankle; Left ankle fracture subluxation, unstable, bimalleolar. Pressure ulcer left calcaneus. PLAN: Nonweightbearing left leg. X-ray of left ankle. Reevaluate next week, consider suture removal at that time and cast. Evaluate skin status at that time Yvon Diaz MD Aug 24, 2017 07:58
[2017-08-24 08:00] VITALS: BP 133/85; PULSE 91; RESP 17; TEMP 95.9; O2SAT 92
[2017-08-24] MEDS: GABAPENTIN 400 MG CAP PO SCH ×3 (08:15→18:11)
[2017-08-24] MEDS: VALPROIC ACID 250 MG CAP PO SCH ×2 (08:15→20:31)
[2017-08-24] MEDS: ENOXAPARIN SODIUM 40 MG/0.4 ML SYRINGE SQ SCH (08:15)
[2017-08-24] MEDS: AMIODARONE 200 MG TAB PO SCH ×2 (08:16→20:31)
[2017-08-24] MEDS: FOLIC ACID 1 MG TAB PO SCH (08:16)
[2017-08-24] MEDS: QUEtiapine FUMARATE 100 MG TAB PO SCH ×3 (08:16→18:11)
[2017-08-24] MEDS: METOPROLOL TARTRATE 25 MG TAB PO SCH ×2 (08:16→20:31)
[2017-08-24] MEDS: FUROSEMIDE 20 MG TAB PO SCH (08:16)
[2017-08-24] MEDS: MULTIVITAMIN TAB PO SCH (08:16)
[2017-08-24] MEDS: SODIUM CHLORIDE 0.9% FLUSH 10 ML FLUSH IV FLUSH SCH ×2 (08:17→20:31)
[2017-08-24] MEDS: MAGNESIUM HYDROXIDE SUSP 30 ML CUP PO SCH ×2 (08:17→20:31)
[2017-08-24] MEDS: DOCUSATE SODIUM 50 MG/SENNA 8.6 MG TAB PO SCH ×2 (08:17→20:30)
[2017-08-24] MEDS: LACTULOSE SYRUP 20 GM/30 ML CUP PO SCH (08:17)
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
[2017-08-24 12:00] VITALS: BP 115/71; PULSE 83; RESP 17; TEMP 96.3; O2SAT 95
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
--- NOTE | 2017-08-24 13:15 | PD.WCN.NOT ---
Wound Consult Description: Follow up of Left heel DTI, Left posterior thigh Communicated with: Mariah POLANCO [address] [place] [address], Recommendation: 1) Encourage patient to reposition every 2 hours for comfort and offloading.Float heels on pillows while in bed. 2) Cleanse all open areas with normal saline, pat dry. 3) Apply skin prep to Left heel and intact scabs on bilateral upper extremities BID 4) Apply Santyl 2mm thick to Left posterior thigh cover with calcium alginate and boarder dressing change daily. Additional Information: Patient was seen today on [address] [place] [address] for follow up of Left heel and Left posterior thigh,Coccyx.Left heel presents dark purple/black soft tissue no drainage or odor noted.Left posterior thigh presents open pressure related injury measuring ~1.2cm x 2.4cm x Yellow slough Cleansed with normal saline pat dry covered with dry dressing till Santyl available..Heel skin prepped.Patient repositioned to right side assessment of buttocks has no open areas blanchable to all areas moisture not encourage patient to ensure keeping area clean and dry skin protectant applied to buttocks.Patient tolerated wound care well. Neg Pressure Wound Therapy Wound Location Wound Location: Wound consult ordered by for R leg/heel Ostomy Date of Surgery: Aug 07, 2017 [facility] Huitron [facility] Aug 24, 2017 13:15
[2017-08-24 16:00] VITALS: BP 114/78; PULSE 76; RESP 17; TEMP 96.5; O2SAT 94
[2017-08-24] MEDS: traZODone HCL 50 MG TAB PO SCH (20:31)
[2017-08-24] MEDS: RESP: ALBUTEROL 2.5 MG/3 ML NEB (PRN) NEB (20:41)
[2017-08-24 20:42] VITALS: BP 105/73; PULSE 80; RESP 18; TEMP 96.6; O2SAT 96
[2017-08-25 00:26] VITALS: BP 152/68; PULSE 68; RESP 17; TEMP 97; O2SAT 96
[2017-08-25 08:00] VITALS: BP 153/74; PULSE 77; RESP 18; TEMP 97.7; O2SAT 91
[2017-08-25] MEDS: MAGNESIUM HYDROXIDE SUSP 30 ML CUP PO SCH ×2 (09:00→21:30)
[2017-08-25] MEDS: SODIUM CHLORIDE 0.9% FLUSH 10 ML FLUSH IV FLUSH SCH ×2 (09:00→21:33)
[2017-08-25] MEDS: VALPROIC ACID 250 MG CAP PO SCH ×2 (09:13→21:32)
[2017-08-25] MEDS: ENOXAPARIN SODIUM 40 MG/0.4 ML SYRINGE SQ SCH (09:13)
[2017-08-25] MEDS: POLYETHYLENE GLYCOL 17 GM PKG NG SCH ×2 (09:13→21:29)
[2017-08-25] MEDS: LACTULOSE SYRUP 20 GM/30 ML CUP PO SCH (09:14)
[2017-08-25] MEDS: DIAZEPAM 2 MG TAB PO PRN (09:14)
[2017-08-25] MEDS: FOLIC ACID 1 MG TAB PO SCH (09:14)
[2017-08-25] MEDS: QUEtiapine FUMARATE 100 MG TAB PO SCH ×3 (09:14→18:00)
[2017-08-25] MEDS: MULTIVITAMIN TAB PO SCH (09:14)
[2017-08-25] MEDS: AMIODARONE 200 MG TAB PO SCH ×2 (09:14→21:32)
[2017-08-25] MEDS: METOPROLOL TARTRATE 25 MG TAB PO SCH ×2 (09:14→21:31)
[2017-08-25] MEDS: FUROSEMIDE 20 MG TAB PO SCH (09:14)
[2017-08-25] MEDS: GABAPENTIN 400 MG CAP PO SCH ×3 (09:14→18:00)
[2017-08-25] MEDS: DOCUSATE SODIUM 50 MG/SENNA 8.6 MG TAB PO SCH ×2 (09:14→21:31)
[2017-08-25 12:00] VITALS: BP 118/75; PULSE 77; RESP 18; TEMP 98.1; O2SAT 92
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
[2017-08-25 16:00] VITALS: BP 100/62; PULSE 70; RESP 17; TEMP 97.9; O2SAT 90
[2017-08-25 20:00] VITALS: BP 142/98; PULSE 79; RESP 17; TEMP 97.3; O2SAT 92
[2017-08-26] VITALS: BP 127/92; PULSE 75; RESP 16; TEMP 97.7; O2SAT 95
[2017-08-26] MEDS: traZODone HCL 50 MG TAB PO SCH ×2 (01:24→21:28)
[2017-08-26] MEDS: DIAZEPAM 2 MG TAB PO PRN ×2 (01:24→18:04)
[2017-08-26 06:20] LABS: BASOPHIL % 0.3 % (0.0-2.0); EOSINOPHIL # 0.7 TH/MM3 (0-0.4); EOSINOPHIL % 7.3 % (0.0-4.0); HEMATOCRIT 40.9 % (39.0-51.0); HEMOGLOBIN 13.6 GM/DL (13.0-17.0); LYMPH % 21.8 % (9.0-44.0); MEAN CORPUSCULAR HEMOGLOBIN 31.4 PG (27.0-34.0); MEAN CORPUSCULAR HGB CONC 33.1 % (32.0-36.0); MEAN PLATELET VOLUME 9.4 FL (7.0-11.0); MONOCYTE # 1.6 TH/MM3 (0-0.9); NEUT % 53.6 % (16.0-70.0); PLATELET COUNT 566 TH/MM3 (150-450); RED BLOOD COUNT 4.31 MIL/MM3 (4.50-5.90); WHITE BLOOD COUNT 9.3 TH/MM3 (4.0-11.0)
[2017-08-26 06:46] LABS: BICARBONATE 28.8 MEQ/L (21.0-32.0); CALCIUM 8.5 MG/DL (8.5-10.1); CREATININE 0.92 MG/DL (0.60-1.30)
[2017-08-26 08:00] VITALS: BP 146/93; PULSE 72; RESP 18; TEMP 97; O2SAT 95
[2017-08-26] MEDS: GABAPENTIN 400 MG CAP PO SCH ×3 (08:39→18:04)
[2017-08-26] MEDS: FUROSEMIDE 20 MG TAB PO SCH (08:40)
[2017-08-26] MEDS: FOLIC ACID 1 MG TAB PO SCH (08:40)
[2017-08-26] MEDS: VALPROIC ACID 250 MG CAP PO SCH ×2 (08:40→21:29)
[2017-08-26] MEDS: QUEtiapine FUMARATE 100 MG TAB PO SCH ×3 (08:41→18:04)
[2017-08-26] MEDS: AMIODARONE 200 MG TAB PO SCH ×2 (08:41→21:29)
[2017-08-26] MEDS: ENOXAPARIN SODIUM 40 MG/0.4 ML SYRINGE SQ SCH (08:42)
[2017-08-26] MEDS: METOPROLOL TARTRATE 25 MG TAB PO SCH ×2 (08:42→21:29)
[2017-08-26] MEDS: DOCUSATE SODIUM 50 MG/SENNA 8.6 MG TAB PO SCH ×2 (08:42→21:29)
[2017-08-26] MEDS: MULTIVITAMIN TAB PO SCH (08:42)
[2017-08-26] MEDS: LACTULOSE SYRUP 20 GM/30 ML CUP PO SCH (08:43)
[2017-08-26] MEDS: POLYETHYLENE GLYCOL 17 GM PKG NG SCH ×2 (08:44→19:44)
[2017-08-26] MEDS: MAGNESIUM HYDROXIDE SUSP 30 ML CUP PO SCH ×2 (08:44→21:28)
[2017-08-26] MEDS: SODIUM CHLORIDE 0.9% FLUSH 10 ML FLUSH IV FLUSH SCH ×2 (08:44→21:28)
[2017-08-26 12:00] VITALS: BP 115/71; PULSE 69; RESP 17; TEMP 97.1; O2SAT 94
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
[2017-08-26 16:00] VITALS: BP 110/72; PULSE 68; RESP 18; TEMP 96.7; O2SAT 93
[2017-08-26] MEDS ORDERED: LACTULOSE SYRUP 20 GM/30 ML CUP PO ONE (17:30)
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
[2017-08-26 20:00] VITALS: BP 95/72; PULSE 71; RESP 16; TEMP 96.7; O2SAT 93
[2017-08-27] VITALS: BP 121/69; PULSE 71; RESP 18; TEMP 97.3; O2SAT 92
[2017-08-27] MEDS: DIAZEPAM 2 MG TAB PO PRN ×3 (05:12→21:46)
[2017-08-27 08:00] VITALS: BP 117/71; PULSE 68; RESP 19; TEMP 97.4; O2SAT 92
[2017-08-27] MEDS: MAGNESIUM HYDROXIDE SUSP 30 ML CUP PO SCH ×2 (08:31→21:47)
[2017-08-27] MEDS: GABAPENTIN 400 MG CAP PO SCH ×3 (08:32→18:41)
[2017-08-27] MEDS: QUEtiapine FUMARATE 100 MG TAB PO SCH ×3 (08:32→18:41)
[2017-08-27] MEDS: MULTIVITAMIN TAB PO SCH (08:32)
[2017-08-27] MEDS: AMIODARONE 200 MG TAB PO SCH ×2 (08:32→21:47)
[2017-08-27] MEDS: POLYETHYLENE GLYCOL 17 GM PKG NG SCH ×2 (08:32→21:47)
[2017-08-27] MEDS: LACTULOSE SYRUP 20 GM/30 ML CUP PO SCH (08:32)
[2017-08-27] MEDS: DOCUSATE SODIUM 50 MG/SENNA 8.6 MG TAB PO SCH ×2 (08:33→21:47)
[2017-08-27] MEDS: METOPROLOL TARTRATE 25 MG TAB PO SCH ×2 (08:33→21:47)
[2017-08-27] MEDS: FUROSEMIDE 20 MG TAB PO SCH (08:33)
[2017-08-27] MEDS: VALPROIC ACID 250 MG CAP PO SCH ×2 (08:33→21:47)
[2017-08-27] MEDS: SODIUM CHLORIDE 0.9% FLUSH 10 ML FLUSH IV FLUSH SCH ×2 (08:34→21:00)
[2017-08-27] MEDS: LIDOCAINE HCL 5% PATCH TD SCH (08:34)
[2017-08-27] MEDS: ENOXAPARIN SODIUM 40 MG/0.4 ML SYRINGE SQ SCH (08:35)
[2017-08-27] MEDS: FOLIC ACID 1 MG TAB PO SCH (08:45)
[2017-08-27 12:00] VITALS: BP 120/77; PULSE 68; RESP 18; TEMP 98.8; O2SAT 92
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
[2017-08-27] MEDS ORDERED: MAGNESIUM CITRATE SOLN 300 ML BTL PO ONE (13:00)
[2017-08-27 16:00] VITALS: BP 81/56; PULSE 66; RESP 12; TEMP 95.9; O2SAT 92
[2017-08-27 18:13] VITALS: BP 133/80
[2017-08-27 20:55] VITALS: BP 111/72; PULSE 75; RESP 17; TEMP 97.9; O2SAT 92
[2017-08-27] MEDS: traZODone HCL 50 MG TAB PO SCH (21:46)
[2017-08-28 01:35] VITALS: BP 123/98; PULSE 73; RESP 18; TEMP 98.3; O2SAT 92
[2017-08-28] MEDS: FOLIC ACID 1 MG TAB PO SCH (07:55)
[2017-08-28] MEDS: VALPROIC ACID 250 MG CAP PO SCH ×2 (07:56→19:58)
[2017-08-28] MEDS: MULTIVITAMIN TAB PO SCH (07:56)
[2017-08-28] MEDS: AMIODARONE 200 MG TAB PO SCH ×2 (07:56→19:57)
[2017-08-28] MEDS: METOPROLOL TARTRATE 25 MG TAB PO SCH ×2 (07:56→19:57)
[2017-08-28] MEDS: GABAPENTIN 400 MG CAP PO SCH ×3 (07:57→18:16)
[2017-08-28] MEDS: QUEtiapine FUMARATE 100 MG TAB PO SCH ×3 (07:57→18:16)
[2017-08-28] MEDS: LIDOCAINE HCL 5% PATCH TD SCH (07:58)
[2017-08-28 08:02] VITALS: BP 139/64; PULSE 76; RESP 17; TEMP 97.5; O2SAT 92
[2017-08-28] MEDS: DOCUSATE SODIUM 50 MG/SENNA 8.6 MG TAB PO SCH ×2 (08:02→19:58)
[2017-08-28] MEDS: LACTULOSE SYRUP 20 GM/30 ML CUP PO SCH (08:03)
[2017-08-28] MEDS: MAGNESIUM HYDROXIDE SUSP 30 ML CUP PO SCH ×2 (08:03→19:58)
[2017-08-28] MEDS: POLYETHYLENE GLYCOL 17 GM PKG NG SCH ×2 (08:03→19:58)
[2017-08-28] MEDS: SODIUM CHLORIDE 0.9% FLUSH 10 ML FLUSH IV FLUSH SCH ×2 (08:03→19:58)
[2017-08-28] MEDS: FUROSEMIDE 20 MG TAB PO SCH (08:03)
[2017-08-28] MEDS ORDERED: PERI PO (09:21)
[2017-08-28] MEDS ORDERED: MAGN30S PO (09:21)
[2017-08-28] MEDS: DIAZEPAM 2 MG TAB PO PRN ×2 (10:00→23:17)
[2017-08-28] MEDS: ENOXAPARIN SODIUM 40 MG/0.4 ML SYRINGE SQ SCH (10:02)
[2017-08-28 11:55] VITALS: BP 120/71; PULSE 69; RESP 17; TEMP 97.2; O2SAT 91
[2017-08-28 16:00] VITALS: BP 118/82; PULSE 71; RESP 17; TEMP 97.8; O2SAT 90
[2017-08-28] MEDS: traZODone HCL 50 MG TAB PO SCH (19:57)
[2017-08-28] MEDS: REMOVE OLD PATCH T-DERMAL SCH (20:02)
[2017-08-28 20:35] VITALS: BP 101/67; PULSE 70; RESP 18; TEMP 99.3; O2SAT 92
[2017-08-29 00:35] VITALS: BP 107/77; PULSE 63; RESP 19; TEMP 97.9; O2SAT 96
[2017-08-29] MEDS: VALPROIC ACID 250 MG CAP PO SCH ×2 (07:24→20:21)
[2017-08-29] MEDS: FUROSEMIDE 20 MG TAB PO SCH (07:24)
[2017-08-29] MEDS: GABAPENTIN 400 MG CAP PO SCH ×3 (07:24→17:22)
[2017-08-29] MEDS: DOCUSATE SODIUM 50 MG/SENNA 8.6 MG TAB PO SCH ×2 (07:25→20:21)
[2017-08-29] MEDS: QUEtiapine FUMARATE 100 MG TAB PO SCH ×3 (07:25→17:22)
[2017-08-29] MEDS: METOPROLOL TARTRATE 25 MG TAB PO SCH ×2 (07:25→20:21)
[2017-08-29] MEDS: FOLIC ACID 1 MG TAB PO SCH (07:25)
[2017-08-29] MEDS: AMIODARONE 200 MG TAB PO SCH ×2 (07:25→20:21)
[2017-08-29] MEDS: MULTIVITAMIN TAB PO SCH (07:26)
[2017-08-29] MEDS: MAGNESIUM HYDROXIDE SUSP 30 ML CUP PO SCH ×2 (07:27→20:23)
[2017-08-29] MEDS: LIDOCAINE HCL 5% PATCH TD SCH (07:27)
[2017-08-29] MEDS: LACTULOSE SYRUP 20 GM/30 ML CUP PO SCH (07:27)
[2017-08-29] MEDS: POLYETHYLENE GLYCOL 17 GM PKG NG SCH ×2 (07:28→20:23)
[2017-08-29] MEDS: SODIUM CHLORIDE 0.9% FLUSH 10 ML FLUSH IV FLUSH SCH ×2 (07:29→20:23)
[2017-08-29 08:00] VITALS: BP 162/90; PULSE 87; RESP 17; TEMP 97.4; O2SAT 92
[2017-08-29] MEDS: ENOXAPARIN SODIUM 40 MG/0.4 ML SYRINGE SQ SCH (09:06)
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
[2017-08-29 12:00] VITALS: BP 109/84; PULSE 74; RESP 17; TEMP 98.8; O2SAT 91
[2017-08-29] MEDS: DIAZEPAM 2 MG TAB PO PRN (15:48)
[2017-08-29 16:00] VITALS: BP 107/76; PULSE 102; RESP 17; TEMP 96.8; O2SAT 93
[2017-08-29 20:00] VITALS: BP 112/69; PULSE 69; RESP 17; TEMP 97.2; O2SAT 93
[2017-08-29] MEDS: traZODone HCL 50 MG TAB PO SCH (20:21)
[2017-08-29] MEDS: REMOVE OLD PATCH T-DERMAL SCH (20:24)
[2017-08-30 00:50] VITALS: BP 129/72; PULSE 75; RESP 18; TEMP 97.5; O2SAT 94
[2017-08-30] MEDS: DIAZEPAM 2 MG TAB PO PRN ×2 (04:34→17:16)
[2017-08-30 08:00] VITALS: BP 121/76; PULSE 66; RESP 18; TEMP 98.4; O2SAT 92
[2017-08-30] MEDS: LIDOCAINE HCL 5% PATCH TD SCH (08:18)
[2017-08-30] MEDS: DOCUSATE SODIUM 50 MG/SENNA 8.6 MG TAB PO SCH ×2 (08:19→21:07)
[2017-08-30] MEDS: QUEtiapine FUMARATE 100 MG TAB PO SCH ×3 (08:19→17:16)
[2017-08-30] MEDS: VALPROIC ACID 250 MG CAP PO SCH ×2 (08:19→21:08)
[2017-08-30] MEDS: AMIODARONE 200 MG TAB PO SCH ×2 (08:19→21:00)
[2017-08-30] MEDS: GABAPENTIN 400 MG CAP PO SCH ×3 (08:19→17:16)
[2017-08-30] MEDS: FOLIC ACID 1 MG TAB PO SCH (08:19)
[2017-08-30] MEDS: METOPROLOL TARTRATE 25 MG TAB PO SCH ×2 (08:19→21:08)
[2017-08-30] MEDS: SODIUM CHLORIDE 0.9% FLUSH 10 ML FLUSH IV FLUSH SCH ×2 (08:20→21:08)
[2017-08-30] MEDS: LACTULOSE SYRUP 20 GM/30 ML CUP PO SCH (08:20)
[2017-08-30] MEDS: MULTIVITAMIN TAB PO SCH (08:20)
[2017-08-30] MEDS: FUROSEMIDE 20 MG TAB PO SCH (08:20)
[2017-08-30] MEDS: POLYETHYLENE GLYCOL 17 GM PKG NG SCH ×2 (08:20→21:07)
[2017-08-30] MEDS: MAGNESIUM HYDROXIDE SUSP 30 ML CUP PO SCH ×2 (08:21→21:07)
[2017-08-30] MEDS: ENOXAPARIN SODIUM 40 MG/0.4 ML SYRINGE SQ SCH (08:25)
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
[2017-08-30 12:00] VITALS: BP 93/61; PULSE 59; RESP 18; TEMP 96.7; O2SAT 92
[2017-08-30 16:00] VITALS: BP 117/72; PULSE 63; RESP 18; TEMP 97.3; O2SAT 92
[2017-08-30 20:00] VITALS: BP 120/79; PULSE 65; RESP 15; TEMP 96.4; O2SAT 98
[2017-08-30] MEDS: REMOVE OLD PATCH T-DERMAL SCH (21:00)
[2017-08-30] MEDS: traZODone HCL 50 MG TAB PO SCH (21:08)
[2017-08-31] VITALS: BP 143/100; PULSE 88; RESP 15; TEMP 96.1; O2SAT 100
[2017-08-31] MEDS: DIAZEPAM 2 MG TAB PO PRN ×3 (00:45→16:53)
[2017-08-31 04:00] VITALS: BP 142/78; PULSE 68; RESP 15; TEMP 97.4; O2SAT 94
[2017-08-31 08:00] VITALS: BP 141/90; PULSE 74; RESP 18; TEMP 99.6; O2SAT 92
--- NOTE | 2017-08-31 08:06 | PD.ORT.PN ---
Subjective Subjective Remarks Patient seen in regular hospital bed on floor. Notes reflect noncompliance with weightbearing status of left leg.. Objective Vitals Vital Signs Date Time Temp Pulse Resp B/P (MAP) Pulse Ox O2 Delivery O2 Flow Rate FiO2 08/31/17 04:00 97.4 68 15 142/78 (99) 94 08/31/17 00:00 96.1 88 15 143/100 (114) 100 08/30/17 20:00 96.4 65 15 120/79 (93) 98 08/30/17 19:22 Room Air 08/30/17 16:00 97.3 63 18 117/72 (87) 92 08/30/17 12:00 96.7 59 18 93/61 (72) 92 I/O 08/30/17 08/30/17 08/30/17 08/31/17 08/31/17 08/31/17 07:00 15:00 23:00 07:00 15:00 23:00 Intake Total 360 ml 480 ml Output Total 800 ml 300 ml Balance -440 ml 480 ml -300 ml Intake Oral 360 ml 480 ml Output Urine Total 800 ml 300 ml # Voids 4 # Bowel Movements 0 0 Imaging Last 24 hours Impressions Chest X-Ray 08/06/17 0600 Signed Impressions: Service Date/Time: Sunday, August 06, 2017 03:52 - CONCLUSION: Left basilar opacity is present may be due to a combination of consolidation and or pleural effusion. Jason Gong MD Objective Remarks Patient conversant Splint in place. No abnormal swelling or any drainage. Sensation normal. Wiggles his toes easily on both legs Assessment & Plan Assessment and Plan pod#24 s/p ORIF left ankle; Left ankle fracture subluxation, unstable, bimalleolar. Pressure ulcer left calcaneus. PLAN: Nonweightbearing left leg. X-ray of left ankle looks fine Removed splint. Removed sutures and apply Steri-Strips. Have wound care team evaluate left heel if necessary. Short leg cast, nonweightbearing Yvon Diaz MD Aug 31, 2017 08:06
[2017-08-31] MEDS: METOPROLOL TARTRATE 25 MG TAB PO SCH ×2 (08:13→19:29)
[2017-08-31] MEDS: DOCUSATE SODIUM 50 MG/SENNA 8.6 MG TAB PO SCH ×2 (08:13→19:29)
[2017-08-31] MEDS: FOLIC ACID 1 MG TAB PO SCH (08:13)
[2017-08-31] MEDS: QUEtiapine FUMARATE 100 MG TAB PO SCH ×3 (08:13→16:54)
[2017-08-31] MEDS: VALPROIC ACID 250 MG CAP PO SCH ×2 (08:13→19:29)
[2017-08-31] MEDS: GABAPENTIN 400 MG CAP PO SCH ×3 (08:13→16:54)
[2017-08-31] MEDS: MULTIVITAMIN TAB PO SCH (08:13)
[2017-08-31] MEDS: AMIODARONE 200 MG TAB PO SCH ×2 (08:13→19:29)
[2017-08-31] MEDS: FUROSEMIDE 20 MG TAB PO SCH (08:14)
[2017-08-31] MEDS: LACTULOSE SYRUP 20 GM/30 ML CUP PO SCH (08:14)
[2017-08-31] MEDS: POLYETHYLENE GLYCOL 17 GM PKG NG SCH ×2 (08:14→19:29)
[2017-08-31] MEDS: MAGNESIUM HYDROXIDE SUSP 30 ML CUP PO SCH ×2 (08:14→19:30)
[2017-08-31] MEDS: SODIUM CHLORIDE 0.9% FLUSH 10 ML FLUSH IV FLUSH SCH ×2 (08:14→19:29)
[2017-08-31] MEDS: LIDOCAINE HCL 5% PATCH TD SCH (08:18)
[2017-08-31] MEDS: ENOXAPARIN SODIUM 40 MG/0.4 ML SYRINGE SQ SCH (08:20)
[2017-08-31 11:43] VITALS: BP 138/87; PULSE 70; RESP 18; TEMP 99.1; O2SAT 93
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
--- NOTE | 2017-08-31 14:08 | PD.WCN.NOT ---
Wound Consult Description: Follow up of Left heel DTI, Left posterior thigh, Left lower calf Communicated with: Jesi POLANCO [address] [place] [address], Recommendation: 1) Encourage patient to reposition every 2 hours for comfort and offloading.Float heels on pillows while in bed. 2) Cleanse all open areas with normal saline, pat dry. 3) Apply skin prep to Left heel and intact scabs on bilateral upper extremities BID 4) Apply calcium alginate and boarder dressing change daily. 5) Build up heel and Pretibial area with casting pad prior to applying hard cast please. Additional Information: Patient was seen today on [address] [place] [address] by web content writer and Jesi POLANCO [address] [place] [address] for follow up of wounds.Left calcaneus presents with purple intact DTI with no signs or symptoms of infection or drainage.Posterior left thigh wound healing no drainage or signs and symptoms of infection noted.Soft cast removed by audiology assistant to reveal a undocumented pressure injury to the left lower calf measuring 6.0cm x 2.2cm x 0.1cm Wound edges are attached and well defined.Periwound has intact scabs with no drainage or odor.Wound base is 75% red tissue and 25% pink tissue no necrotic tissue noted.Wound cleansed with normal saline pat dry Puracol applied to wound base cut to fit and covered with dry dressing.Shaving cream therapy perform to bilateral lower extremities prior to wound care.Steri strips to lateral and medial left lower extremity intact no drainage noted surgical incision well approx newly epithelized. Neg Pressure Wound Therapy Wound Location Wound Location: Follow up of Left heel DTI, Left posterior thigh Ostomy Date of Surgery: Aug 07, 2017 [facility] Aug 31, 2017 14:08
[2017-08-31 16:00] VITALS: BP 140/85; PULSE 70; RESP 18; TEMP 98.4; O2SAT 94
[2017-08-31] MEDS: traZODone HCL 50 MG TAB PO SCH (19:29)
[2017-08-31] MEDS: REMOVE OLD PATCH T-DERMAL SCH (19:34)
[2017-09-01] VITALS: BP 141/63; PULSE 69; RESP 15; TEMP 96.4; O2SAT 95
[2017-09-01] MEDS: DIAZEPAM 2 MG TAB PO PRN ×3 (00:20→16:05)
[2017-09-01 04:00] VITALS: BP 144/85; PULSE 70; RESP 15; TEMP 96.4; O2SAT 95
[2017-09-01] MEDS: POLYETHYLENE GLYCOL 17 GM PKG NG SCH ×2 (07:26→20:28)
[2017-09-01] MEDS: FOLIC ACID 1 MG TAB PO SCH (07:27)
[2017-09-01] MEDS: DOCUSATE SODIUM 50 MG/SENNA 8.6 MG TAB PO SCH ×2 (07:27→20:25)
[2017-09-01] MEDS: AMIODARONE 200 MG TAB PO SCH ×2 (07:27→20:25)
[2017-09-01] MEDS: MULTIVITAMIN TAB PO SCH (07:27)
[2017-09-01] MEDS: METOPROLOL TARTRATE 25 MG TAB PO SCH ×2 (07:27→20:25)
[2017-09-01] MEDS: QUEtiapine FUMARATE 100 MG TAB PO SCH ×3 (07:27→18:40)
[2017-09-01] MEDS: GABAPENTIN 400 MG CAP PO SCH (07:28)
[2017-09-01] MEDS: MAGNESIUM HYDROXIDE SUSP 30 ML CUP PO SCH ×2 (07:28→19:30)
[2017-09-01] MEDS: VALPROIC ACID 250 MG CAP PO SCH ×2 (07:37→20:24)
[2017-09-01] MEDS: LACTULOSE SYRUP 20 GM/30 ML CUP PO SCH (07:37)
[2017-09-01] MEDS: FUROSEMIDE 20 MG TAB PO SCH (07:37)
[2017-09-01] MEDS: LIDOCAINE HCL 5% PATCH TD SCH (07:38)
[2017-09-01 08:00] VITALS: BP 140/76; PULSE 67; RESP 17; TEMP 98.3; O2SAT 94
[2017-09-01] MEDS ORDERED: BISACODYL EC 5 MG TABEC PO ONE (08:15)
[2017-09-01] MEDS ORDERED: BISACODYL 10 MG SUPP RECTAL ONE (08:15)
[2017-09-01] MEDS: ENOXAPARIN SODIUM 40 MG/0.4 ML SYRINGE SQ SCH (08:33)
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
[2017-09-01] MEDS: SODIUM CHLORIDE 0.9% FLUSH 10 ML FLUSH IV FLUSH SCH ×2 (09:00→20:28)
[2017-09-01 12:00] VITALS: BP 131/88; PULSE 67; RESP 18; TEMP 96.7; O2SAT 93
[2017-09-01 16:00] VITALS: BP 121/69; PULSE 65; RESP 18; TEMP 97.1; O2SAT 93
[2017-09-01] MEDS: traZODone HCL 50 MG TAB PO SCH (20:25)
[2017-09-01] MEDS: REMOVE OLD PATCH T-DERMAL SCH (20:26)
[2017-09-01 20:40] VITALS: BP 118/80; PULSE 62; RESP 18; TEMP 97.4; O2SAT 96
[2017-09-02 00:11] VITALS: BP 150/83; PULSE 69; RESP 18; TEMP 97; O2SAT 96
[2017-09-02] MEDS: DIAZEPAM 2 MG TAB PO PRN ×3 (03:49→19:53)
[2017-09-02] MEDS: ENOXAPARIN SODIUM 40 MG/0.4 ML SYRINGE SQ SCH (07:02)
[2017-09-02] MEDS: LACTULOSE SYRUP 20 GM/30 ML CUP PO SCH (07:02)
[2017-09-02] MEDS: MAGNESIUM HYDROXIDE SUSP 30 ML CUP PO SCH ×2 (07:02→19:54)
[2017-09-02] MEDS: LIDOCAINE HCL 5% PATCH TD SCH (07:02)
[2017-09-02] MEDS: DOCUSATE SODIUM 50 MG/SENNA 8.6 MG TAB PO SCH ×2 (07:03→19:53)
[2017-09-02] MEDS: FOLIC ACID 1 MG TAB PO SCH (07:03)
[2017-09-02] MEDS: VALPROIC ACID 250 MG CAP PO SCH ×2 (07:03→19:53)
[2017-09-02] MEDS: QUEtiapine FUMARATE 100 MG TAB PO SCH ×3 (07:03→17:24)
[2017-09-02] MEDS: AMIODARONE 200 MG TAB PO SCH ×2 (07:03→19:53)
[2017-09-02] MEDS: METOPROLOL TARTRATE 25 MG TAB PO SCH ×2 (07:03→19:53)
[2017-09-02 07:56] VITALS: BP 147/96; PULSE 78; RESP 18; TEMP 97.5; O2SAT 95
[2017-09-02] MEDS ORDERED: MAGNESIUM CITRATE SOLN 300 ML BTL PO ONE (08:15)
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
[2017-09-02] MEDS: FUROSEMIDE 20 MG TAB PO SCH (09:00)
[2017-09-02] MEDS: SODIUM CHLORIDE 0.9% FLUSH 10 ML FLUSH IV FLUSH SCH ×2 (09:00→19:53)
[2017-09-02] MEDS: MULTIVITAMIN TAB PO SCH (09:00)
[2017-09-02] MEDS: POLYETHYLENE GLYCOL 17 GM PKG NG SCH ×2 (09:00→19:51)
[2017-09-02 12:00] VITALS: BP 113/71; PULSE 62; RESP 18; TEMP 96.7; O2SAT 92
[2017-09-02 16:00] VITALS: BP 145/85; PULSE 67; RESP 18; TEMP 96.4; O2SAT 94
[2017-09-02] MEDS: REMOVE OLD PATCH T-DERMAL SCH (19:53)
[2017-09-02] MEDS: traZODone HCL 50 MG TAB PO SCH (19:53)
[2017-09-02 20:58] VITALS: BP 115/73; PULSE 71; RESP 18; TEMP 96.7; O2SAT 95
[2017-09-03] VITALS: BP 142/86; PULSE 61; RESP 18; TEMP 96.2; O2SAT 96
[2017-09-03 06:17] LABS: BICARBONATE 27.3 MEQ/L (21.0-32.0); CALCIUM 8.7 MG/DL (8.5-10.1); CREATININE 0.96 MG/DL (0.60-1.30)
[2017-09-03 06:58] LABS: AUTOMATED NEUTROPHIL # 7.3 TH/MM3 (1.8-7.7); BASOPHIL # 0.1 TH/MM3 (0-0.2); BASOPHIL % 0.8 % (0.0-2.0); EOSINOPHIL # 0.2 TH/MM3 (0-0.4); EOSINOPHIL % 2.1 % (0.0-4.0); HEMATOCRIT 45.3 % (39.0-51.0); HEMOGLOBIN 15.3 GM/DL (13.0-17.0); LYMPH % 15.5 % (9.0-44.0); LYMPHOCYTE # 1.6 TH/MM3 (1.0-4.8); MEAN CELL VOLUME 94.3 FL (80.0-100.0); MEAN CORPUSCULAR HEMOGLOBIN 31.8 PG (27.0-34.0); MEAN CORPUSCULAR HGB CONC 33.7 % (32.0-36.0); MONO % 10.6 % (0.0-8.0); MONOCYTE # 1.1 TH/MM3 (0-0.9); PLATELET COUNT 294 TH/MM3 (150-450); WHITE BLOOD COUNT 10.2 TH/MM3 (4.0-11.0)
[2017-09-03 08:00] VITALS: BP 140/94; PULSE 70; RESP 18; TEMP 97.1; O2SAT 94
[2017-09-03] MEDS: MULTIVITAMIN TAB PO SCH (08:31)
[2017-09-03] MEDS: QUEtiapine FUMARATE 100 MG TAB PO SCH ×3 (08:31→16:12)
[2017-09-03] MEDS: FUROSEMIDE 20 MG TAB PO SCH (08:31)
[2017-09-03] MEDS: ENOXAPARIN SODIUM 40 MG/0.4 ML SYRINGE SQ SCH (08:31)
[2017-09-03] MEDS: VALPROIC ACID 250 MG CAP PO SCH ×2 (08:31→21:07)
[2017-09-03] MEDS: AMIODARONE 200 MG TAB PO SCH ×2 (08:31→21:09)
[2017-09-03] MEDS: DIAZEPAM 2 MG TAB PO PRN ×2 (08:31→16:12)
[2017-09-03] MEDS: METOPROLOL TARTRATE 25 MG TAB PO SCH ×2 (08:31→21:07)
[2017-09-03] MEDS: FOLIC ACID 1 MG TAB PO SCH (08:31)
[2017-09-03] MEDS: LIDOCAINE HCL 5% PATCH TD SCH (08:32)
[2017-09-03] MEDS: LACTULOSE SYRUP 20 GM/30 ML CUP PO SCH (08:33)
[2017-09-03] MEDS: DOCUSATE SODIUM 50 MG/SENNA 8.6 MG TAB PO SCH ×2 (08:33→21:06)
[2017-09-03] MEDS: POLYETHYLENE GLYCOL 17 GM PKG NG SCH ×2 (08:33→21:06)
[2017-09-03] MEDS: SODIUM CHLORIDE 0.9% FLUSH 10 ML FLUSH IV FLUSH SCH ×2 (08:33→21:06)
[2017-09-03] MEDS: MAGNESIUM HYDROXIDE SUSP 30 ML CUP PO SCH ×2 (08:33→21:06)
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
[2017-09-03 20:55] VITALS: BP 127/80; PULSE 64; RESP 17; TEMP 96.7; O2SAT 95
[2017-09-03] MEDS: GABAPENTIN 300 MG CAP PO PRN (21:04)
[2017-09-03] MEDS: traZODone HCL 50 MG TAB PO SCH (21:07)
[2017-09-03] MEDS: REMOVE OLD PATCH T-DERMAL SCH (21:10)
[2017-09-04] MEDS: DIAZEPAM 2 MG TAB PO PRN ×3 (03:59→21:13)
[2017-09-04 08:00] VITALS: BP 164/93; PULSE 63; RESP 18; TEMP 97.8; O2SAT 95
[2017-09-04] MEDS: VALPROIC ACID 250 MG CAP PO SCH ×2 (08:50→21:13)
[2017-09-04] MEDS: QUEtiapine FUMARATE 100 MG TAB PO SCH ×3 (08:50→16:12)
[2017-09-04] MEDS: ENOXAPARIN SODIUM 40 MG/0.4 ML SYRINGE SQ SCH (08:50)
[2017-09-04] MEDS: FUROSEMIDE 20 MG TAB PO SCH (08:50)
[2017-09-04] MEDS: FOLIC ACID 1 MG TAB PO SCH (08:51)
[2017-09-04] MEDS: LIDOCAINE HCL 5% PATCH TD SCH (08:51)
[2017-09-04] MEDS: MULTIVITAMIN TAB PO SCH (08:51)
[2017-09-04] MEDS: AMIODARONE 200 MG TAB PO SCH ×2 (08:51→21:13)
[2017-09-04] MEDS: DOCUSATE SODIUM 50 MG/SENNA 8.6 MG TAB PO SCH ×2 (08:51→21:13)
[2017-09-04] MEDS: GABAPENTIN 300 MG CAP PO PRN (08:51)
[2017-09-04] MEDS: METOPROLOL TARTRATE 25 MG TAB PO SCH ×2 (08:51→21:13)
[2017-09-04] MEDS: LACTULOSE SYRUP 20 GM/30 ML CUP PO SCH (08:53)
[2017-09-04] MEDS: POLYETHYLENE GLYCOL 17 GM PKG NG SCH ×2 (08:53→21:14)
[2017-09-04] MEDS: MAGNESIUM HYDROXIDE SUSP 30 ML CUP PO SCH ×2 (08:55→21:10)
[2017-09-04] MEDS: SODIUM CHLORIDE 0.9% FLUSH 10 ML FLUSH IV FLUSH SCH ×2 (08:56→21:14)
[2017-09-04 11:36] VITALS: BP 134/79; PULSE 60; RESP 15; TEMP 97; O2SAT 94
[2017-09-04 16:15] VITALS: BP 119/68; PULSE 58; RESP 16; TEMP 95.6; O2SAT 96
[2017-09-04 20:45] VITALS: BP 120/73; PULSE 67; RESP 17; TEMP 97.2; O2SAT 92
[2017-09-04] MEDS: traZODone HCL 50 MG TAB PO SCH (21:13)
[2017-09-04] MEDS: REMOVE OLD PATCH T-DERMAL SCH (21:15)
[2017-09-05] MEDS: GABAPENTIN 300 MG CAP PO PRN (02:51)
[2017-09-05] MEDS: DIAZEPAM 2 MG TAB PO PRN ×3 (05:32→18:39)
[2017-09-05 08:00] VITALS: BP 170/98; PULSE 70; RESP 17; TEMP 97; O2SAT 93
[2017-09-05] MEDS ORDERED: MAGNESIUM HYDROXIDE SUSP 30 ML CUP PO PRN (08:00)
[2017-09-05] MEDS: SODIUM CHLORIDE 0.9% FLUSH 10 ML FLUSH IV FLUSH SCH ×2 (09:00→20:50)
[2017-09-05] MEDS: ENOXAPARIN SODIUM 40 MG/0.4 ML SYRINGE SQ SCH (10:09)
[2017-09-05] MEDS: METOPROLOL TARTRATE 25 MG TAB PO SCH ×2 (10:09→20:47)
[2017-09-05] MEDS: LIDOCAINE HCL 5% PATCH TD SCH (10:09)
[2017-09-05] MEDS: AMIODARONE 200 MG TAB PO SCH ×2 (10:09→20:47)
[2017-09-05] MEDS: QUEtiapine FUMARATE 100 MG TAB PO SCH ×3 (10:10→18:39)
[2017-09-05] MEDS: VALPROIC ACID 250 MG CAP PO SCH ×2 (10:10→20:47)
[2017-09-05] MEDS: FUROSEMIDE 20 MG TAB PO SCH (10:10)
[2017-09-05] MEDS: DOCUSATE SODIUM 50 MG/SENNA 8.6 MG TAB PO SCH ×2 (10:10→20:49)
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
[2017-09-05 20:55] VITALS: BP 138/82; PULSE 62; RESP 17; TEMP 96.9; O2SAT 95
[2017-09-05] MEDS: traZODone HCL 50 MG TAB PO SCH (20:55)
[2017-09-06] MEDS: DIAZEPAM 2 MG TAB PO PRN ×2 (06:11→17:54)
[2017-09-06 08:00] VITALS: BP 167/92; PULSE 64; RESP 17; TEMP 98.2; O2SAT 96
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
[2017-09-06] MEDS: SODIUM CHLORIDE 0.9% FLUSH 10 ML FLUSH IV FLUSH SCH ×2 (09:00→20:43)
[2017-09-06] MEDS: DOCUSATE SODIUM 50 MG/SENNA 8.6 MG TAB PO SCH ×2 (10:33→20:43)
[2017-09-06] MEDS: QUEtiapine FUMARATE 100 MG TAB PO SCH ×3 (10:33→17:54)
[2017-09-06] MEDS: AMIODARONE 200 MG TAB PO SCH ×2 (10:33→20:42)
[2017-09-06] MEDS: MAGNESIUM HYDROXIDE SUSP 30 ML CUP PO SCH ×2 (10:34→20:43)
[2017-09-06] MEDS: LACTULOSE SYRUP 20 GM/30 ML CUP PO SCH (10:34)
[2017-09-06] MEDS: ENOXAPARIN SODIUM 40 MG/0.4 ML SYRINGE SQ SCH (10:34)
[2017-09-06] MEDS: FUROSEMIDE 20 MG TAB PO SCH (10:34)
[2017-09-06] MEDS: LIDOCAINE HCL 5% PATCH TD SCH (10:34)
[2017-09-06] MEDS: METOPROLOL TARTRATE 25 MG TAB PO SCH ×2 (10:35→20:42)
[2017-09-06] MEDS: VALPROIC ACID 250 MG CAP PO SCH ×2 (10:35→20:42)
[2017-09-06] MEDS: traZODone HCL 50 MG TAB PO SCH (20:42)
[2017-09-06 20:45] VITALS: BP 105/67; PULSE 62; RESP 18; TEMP 96.7; O2SAT 93
[2017-09-07] MEDS: VALPROIC ACID 250 MG CAP PO SCH ×3 (00:40→21:00)
[2017-09-07] MEDS: DIAZEPAM 2 MG TAB PO PRN ×2 (04:26→13:01)
[2017-09-07 08:00] VITALS: BP 138/80; PULSE 62; RESP 17; TEMP 97.5; O2SAT 97
[2017-09-07] MEDS ORDERED: BISACODYL 10 MG SUPP RECTAL ONE (08:00)
[2017-09-07] MEDS ORDERED: BISACODYL EC 5 MG TABEC PO ONE (08:00)
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
[2017-09-07] MEDS: LACTULOSE SYRUP 20 GM/30 ML CUP PO SCH (09:00)
[2017-09-07] MEDS: FUROSEMIDE 20 MG TAB PO SCH (09:00)
[2017-09-07] MEDS: SODIUM CHLORIDE 0.9% FLUSH 10 ML FLUSH IV FLUSH SCH ×2 (09:00→21:00)
[2017-09-07] MEDS: MAGNESIUM HYDROXIDE SUSP 30 ML CUP PO SCH ×2 (09:00→21:00)
[2017-09-07] MEDS: AMIODARONE 200 MG TAB PO SCH ×2 (09:32→21:00)
[2017-09-07] MEDS: METOPROLOL TARTRATE 25 MG TAB PO SCH ×2 (09:32→21:00)
[2017-09-07] MEDS: QUEtiapine FUMARATE 100 MG TAB PO SCH ×3 (09:32→18:00)
[2017-09-07] MEDS: DOCUSATE SODIUM 50 MG/SENNA 8.6 MG TAB PO SCH ×2 (09:33→21:00)
[2017-09-07] MEDS: LIDOCAINE HCL 5% PATCH TD SCH (09:34)
[2017-09-07] MEDS: ENOXAPARIN SODIUM 40 MG/0.4 ML SYRINGE SQ SCH (10:27)
[2017-09-07 20:55] VITALS: BP 130/85; PULSE 61; RESP 17; TEMP 96.8; O2SAT 94
[2017-09-07] MEDS: traZODone HCL 50 MG TAB PO SCH (21:00)
[2017-09-08] MEDS: DIAZEPAM 2 MG TAB PO PRN ×2 (00:39→08:46)
[2017-09-08] MEDS: DOCUSATE SODIUM 50 MG/SENNA 8.6 MG TAB PO SCH ×3 (00:40→19:44)
[2017-09-08] MEDS: METOPROLOL TARTRATE 25 MG TAB PO SCH ×3 (00:40→19:44)
[2017-09-08] MEDS: AMIODARONE 200 MG TAB PO SCH ×3 (00:41→19:44)
[2017-09-08] MEDS: SODIUM CHLORIDE 0.9% FLUSH 10 ML FLUSH IV FLUSH SCH ×3 (00:46→19:44)
[2017-09-08] MEDS: traZODone HCL 50 MG TAB PO SCH ×2 (01:43→19:43)
[2017-09-08 08:00] VITALS: BP 136/84; PULSE 81; RESP 18; TEMP 98.2; O2SAT 93
[2017-09-08] MEDS: LACTULOSE SYRUP 20 GM/30 ML CUP PO SCH (08:44)
[2017-09-08] MEDS: ENOXAPARIN SODIUM 40 MG/0.4 ML SYRINGE SQ SCH (08:44)
[2017-09-08] MEDS: MAGNESIUM HYDROXIDE SUSP 30 ML CUP PO SCH ×2 (08:44→19:43)
[2017-09-08] MEDS: LIDOCAINE HCL 5% PATCH TD SCH (08:44)
[2017-09-08] MEDS: QUEtiapine FUMARATE 100 MG TAB PO SCH ×3 (08:45→17:59)
[2017-09-08] MEDS: VALPROIC ACID 250 MG CAP PO SCH ×2 (08:46→19:44)
[2017-09-08] MEDS: FUROSEMIDE 20 MG TAB PO SCH (08:46)
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
[2017-09-08] MEDS ORDERED: MAGNESIUM CITRATE SOLN 300 ML BTL PO ONE (18:00)
[2017-09-08 20:00] VITALS: BP 124/76; PULSE 60; RESP 18; TEMP 96.6; O2SAT 96
[2017-09-09] MEDS: DIAZEPAM 2 MG TAB PO PRN ×3 (02:57→19:20)
[2017-09-09 08:00] VITALS: BP 124/76; PULSE 69; RESP 18; TEMP 97.7; O2SAT 94
[2017-09-09] MEDS: ENOXAPARIN SODIUM 40 MG/0.4 ML SYRINGE SQ SCH (09:02)
[2017-09-09] MEDS: QUEtiapine FUMARATE 100 MG TAB PO SCH ×3 (09:02→18:31)
[2017-09-09] MEDS: FUROSEMIDE 20 MG TAB PO SCH (09:02)
[2017-09-09] MEDS: LIDOCAINE HCL 5% PATCH TD SCH (09:02)
[2017-09-09] MEDS: AMIODARONE 200 MG TAB PO SCH ×2 (09:02→19:20)
[2017-09-09] MEDS: VALPROIC ACID 250 MG CAP PO SCH ×2 (09:02→19:20)
[2017-09-09] MEDS: METOPROLOL TARTRATE 25 MG TAB PO SCH ×2 (09:02→19:20)
[2017-09-09] MEDS: SODIUM CHLORIDE 0.9% FLUSH 10 ML FLUSH IV FLUSH SCH ×2 (09:07→19:21)
[2017-09-09] MEDS: MAGNESIUM HYDROXIDE SUSP 30 ML CUP PO SCH ×2 (09:07→19:21)
[2017-09-09] MEDS: LACTULOSE SYRUP 20 GM/30 ML CUP PO SCH (09:07)
[2017-09-09] MEDS: DOCUSATE SODIUM 50 MG/SENNA 8.6 MG TAB PO SCH ×2 (09:08→19:20)
[2017-09-09] MEDS: traZODone HCL 50 MG TAB PO SCH (19:20)
[2017-09-09 21:02] VITALS: BP 104/64; PULSE 61; RESP 18; TEMP 97; O2SAT 97
[2017-09-10] MEDS: DIAZEPAM 2 MG TAB PO PRN ×3 (04:05→23:56)
[2017-09-10 08:00] VITALS: BP 124/78; PULSE 68; RESP 18; TEMP 97; O2SAT 94
[2017-09-10] MEDS: VALPROIC ACID 250 MG CAP PO SCH ×2 (08:35→21:01)
[2017-09-10] MEDS: FUROSEMIDE 20 MG TAB PO SCH (08:35)
[2017-09-10] MEDS: AMIODARONE 200 MG TAB PO SCH ×2 (08:35→21:01)
[2017-09-10] MEDS: METOPROLOL TARTRATE 25 MG TAB PO SCH ×2 (08:35→21:01)
[2017-09-10] MEDS: LACTULOSE SYRUP 20 GM/30 ML CUP PO SCH (08:35)
[2017-09-10] MEDS: SODIUM CHLORIDE 0.9% FLUSH 10 ML FLUSH IV FLUSH SCH ×2 (08:36→21:00)
[2017-09-10] MEDS: LIDOCAINE HCL 5% PATCH TD SCH (08:36)
[2017-09-10] MEDS: MAGNESIUM HYDROXIDE SUSP 30 ML CUP PO SCH ×3 (08:36→21:02)
[2017-09-10] MEDS: ENOXAPARIN SODIUM 40 MG/0.4 ML SYRINGE SQ SCH (08:36)
[2017-09-10] MEDS: QUEtiapine FUMARATE 100 MG TAB PO SCH ×3 (08:36→17:57)
[2017-09-10] MEDS: DOCUSATE SODIUM 50 MG/SENNA 8.6 MG TAB PO SCH ×2 (08:36→21:02)
[2017-09-10 13:24] VITALS: O2SAT 94
[2017-09-10 21:02] VITALS: BP 118/75; PULSE 66; RESP 18; TEMP 96.7
[2017-09-10] MEDS: traZODone HCL 50 MG TAB PO SCH (21:02)
[2017-09-11] MEDS ORDERED: LACTULOSE SYRUP 20 GM/30 ML CUP PO PRN (07:30)
[2017-09-11 07:54] VITALS: BP 120/89; PULSE 62; RESP 19; TEMP 96.5; O2SAT 94
[2017-09-11] MEDS: POTASSIUM CHLORIDE 10 MEQ CAP PO SCH (08:10)
[2017-09-11] MEDS: VALPROIC ACID 250 MG CAP PO SCH ×2 (08:10→20:07)
[2017-09-11] MEDS: DIAZEPAM 2 MG TAB PO PRN ×2 (08:10→20:08)
[2017-09-11] MEDS: QUEtiapine FUMARATE 100 MG TAB PO SCH ×3 (08:10→18:00)
[2017-09-11] MEDS: LIDOCAINE HCL 5% PATCH TD SCH (08:10)
[2017-09-11] MEDS: AMIODARONE 200 MG TAB PO SCH ×2 (08:11→20:08)
[2017-09-11] MEDS: METOPROLOL TARTRATE 25 MG TAB PO SCH ×2 (08:11→20:07)
[2017-09-11] MEDS: DOCUSATE SODIUM 50 MG/SENNA 8.6 MG TAB PO SCH ×2 (08:11→20:08)
[2017-09-11] MEDS: SODIUM CHLORIDE 0.9% FLUSH 10 ML FLUSH IV FLUSH SCH ×2 (08:11→20:08)
[2017-09-11] MEDS: FUROSEMIDE 20 MG TAB PO SCH (08:13)
[2017-09-11] MEDS: IBUPROFEN 400 MG TAB PO PRN (08:18)
[2017-09-11] MEDS: ENOXAPARIN SODIUM 40 MG/0.4 ML SYRINGE SQ SCH (11:56)
[2017-09-11] MEDS: ACETAMINOPHEN 325 MG TAB PO PRN ×2 (11:56→20:08)
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
[2017-09-11] MEDS: traZODone HCL 50 MG TAB PO SCH (20:07)
[2017-09-11 20:45] VITALS: BP 154/79; PULSE 50; RESP 18; TEMP 96.9; O2SAT 96
[2017-09-12] MEDS: ACETAMINOPHEN 325 MG TAB PO PRN ×4 (03:34→17:20)
[2017-09-12] MEDS: DIAZEPAM 2 MG TAB PO PRN ×3 (04:27→20:38)
[2017-09-12 07:47] VITALS: BP 156/93; PULSE 67; RESP 19; TEMP 98; O2SAT 94
[2017-09-12] MEDS: FUROSEMIDE 20 MG TAB PO SCH (08:37)
[2017-09-12] MEDS: DOCUSATE SODIUM 50 MG/SENNA 8.6 MG TAB PO SCH ×2 (08:37→20:39)
[2017-09-12] MEDS: POTASSIUM CHLORIDE 10 MEQ CAP PO SCH (08:37)
[2017-09-12] MEDS: AMIODARONE 200 MG TAB PO SCH ×2 (08:38→20:39)
[2017-09-12] MEDS: VALPROIC ACID 250 MG CAP PO SCH ×2 (08:38→20:39)
[2017-09-12] MEDS: METOPROLOL TARTRATE 25 MG TAB PO SCH ×2 (08:38→20:40)
[2017-09-12] MEDS: QUEtiapine FUMARATE 100 MG TAB PO SCH ×3 (08:39→17:20)
[2017-09-12] MEDS: LIDOCAINE HCL 5% PATCH TD SCH (08:39)
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
[2017-09-12] MEDS: SODIUM CHLORIDE 0.9% FLUSH 10 ML FLUSH IV FLUSH SCH ×2 (08:44→20:40)
[2017-09-12] MEDS ORDERED: BISACODYL EC 5 MG TABEC PO ONE (08:45)
[2017-09-12] MEDS ORDERED: BISACODYL 10 MG SUPP RECTAL ONE (08:45)
[2017-09-12] MEDS: ENOXAPARIN SODIUM 40 MG/0.4 ML SYRINGE SQ SCH (10:00)
[2017-09-12] MEDS ORDERED: Lactulose Liq PO (11:53)
[2017-09-12] MEDS ORDERED: MAGNESIUM CITRATE SOLN 300 ML BTL PO ONE ×2 (12:00→20:00)
[2017-09-12] MEDS ORDERED: FURO20TA PO (15:33)
[2017-09-12] MEDS ORDERED: ENOX40P SQ (15:33)
[2017-09-12] MEDS ORDERED: METO25TA3 PO (15:33)
[2017-09-12] MEDS ORDERED: IBUP1TAB5 PO (15:33)
[2017-09-12] MEDS ORDERED: ACET325T15 PO (15:33)
[2017-09-12] MEDS ORDERED: VALP250 PO (15:33)
[2017-09-12] MEDS ORDERED: TRAZ50TA12 PO (15:33)
[2017-09-12] MEDS ORDERED: POTA10CA PO (15:33)
[2017-09-12] MEDS ORDERED: QUET1TAB8 PO (15:33)
[2017-09-12] MEDS ORDERED: PERI PO (15:33)
[2017-09-12] MEDS ORDERED: DIAZ2 PO (15:33)
[2017-09-12] MEDS: traZODone HCL 50 MG TAB PO SCH (20:39)
[2017-09-12 21:21] VITALS: BP 126/74; PULSE 62; RESP 18; TEMP 96.8; O2SAT 94
[2017-09-13] MEDS: DIAZEPAM 2 MG TAB PO PRN ×2 (05:10→12:19)
[2017-09-13] MEDS: ACETAMINOPHEN 325 MG TAB PO PRN (05:10)
[2017-09-13 07:40] VITALS: BP 125/83; PULSE 90; RESP 18; TEMP 98.2; O2SAT 95
[2017-09-13] MEDS: LIDOCAINE HCL 5% PATCH TD SCH (08:50)
[2017-09-13] MEDS: ENOXAPARIN SODIUM 40 MG/0.4 ML SYRINGE SQ SCH (08:51)
[2017-09-13] MEDS: METOPROLOL TARTRATE 25 MG TAB PO SCH (08:51)
[2017-09-13] MEDS: VALPROIC ACID 250 MG CAP PO SCH (08:51)
[2017-09-13] MEDS: DOCUSATE SODIUM 50 MG/SENNA 8.6 MG TAB PO SCH (08:51)
[2017-09-13] MEDS: FUROSEMIDE 20 MG TAB PO SCH (08:52)
[2017-09-13] MEDS: QUEtiapine FUMARATE 100 MG TAB PO SCH ×2 (08:52→12:19)
[2017-09-13] MEDS: POTASSIUM CHLORIDE 10 MEQ CAP PO SCH (08:52)
[2017-09-13] MEDS: SODIUM CHLORIDE 0.9% FLUSH 10 ML FLUSH IV FLUSH SCH (08:52)
[2017-09-13] MEDS: AMIODARONE 200 MG TAB PO SCH (08:52)
[2017-09-13] MEDS ORDERED: ALPR.25 PO (10:03)
[2017-09-13] MEDS: IBUPROFEN 400 MG TAB PO PRN (12:19)
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
--- NOTE | 2017-09-13 15:21 | HHI.FF ---
Face to Face Verification Diagnosis: (1) Delirium Physical Therapy Order: Evaluate and Treat, Improve ambulation, Strength and gait training Home Health Nursing Order: Medical education Signs/symptoms of disease process Medication education-adverse effect Wound care and dressing changes I have seen patient Sam Hansen on 09/13/17. My clinical findings support the need for the requested home health care services because: Ltd mobility - disease progression Deconditioned w/ increased weakness Med compliance is questionable Limited ability to care for self Need for psychosocial assistance Impaired cognition/judgement High risk of falls Infection w/ risk of complications I certify that my clinical findings support that this patient is homebound because: Post-op weakness Impaired cognitive ability/safety Unsteady gait/balance Unsafe to leave home unassisted Need for psychosocial assistance [id number] bed/chair Unable to use public transportation Jeri Cramer Sep 13, 2017 15:21
== END 2017-09-13 15:20 | DRG 957 ==
LOC: NEPI 19:28 → MERGE 20:16 → EDBD 20:16 → NEDA 20:16 → N03A 21:50 → N06B 08-14 16:59 → N06A 08-15 13:46
PROVIDERS: ADMIT Surgery; ATTEND Surgery
PROC: 5A1955Z Respiratory Ventilation, Greater than 96 Consecutive Hours (ICD-10-PCS; 2017-08-02)
PROC: 0F500ZZ Destruction of Liver, Open Approach (ICD-10-PCS; 2017-08-02)
PROC: 0BH17EZ Insertion of Endotracheal Airway into Trachea, Via Natural or Artificial Opening (ICD-10-PCS; 2017-08-02)
PROC: 0W9B30Z Drainage of Left Pleural Cavity with Drainage Device, Percutaneous Approach (ICD-10-PCS; 2017-08-02)
PROC: 30233N1 Transfusion of Nonautologous Red Blood Cells into Peripheral Vein, Percutaneous Approach (ICD-10-PCS; 2017-08-02)
PROC: 30233K1 Transfusion of Nonautologous Frozen Plasma into Peripheral Vein, Percutaneous Approach (ICD-10-PCS; 2017-08-02)
PROC: 07TP0ZZ Resection of Spleen, Open Approach (ICD-10-PCS; principal; 2017-08-02 20:26)
PROC: 0QSK04Z Reposition Left Fibula with Internal Fixation Device, Open Approach (ICD-10-PCS; 2017-08-07)
PROC: 0QSH04Z Reposition Left Tibia with Internal Fixation Device, Open Approach (ICD-10-PCS; 2017-08-07)
DX: S36.032A Major laceration of spleen, initial encounter (principal); S22.5XXA Flail chest, initial encounter for closed fracture; T79.4XXA Traumatic shock, initial encounter; S27.1XXA Traumatic hemothorax, initial encounter; J96.01 Acute respiratory failure with hypoxia; J96.02 Acute respiratory failure with hypercapnia; G93.41 Metabolic encephalopathy; S27.2XXA Traumatic hemopneumothorax, initial encounter; S27.321A Contusion of lung, unilateral, initial encounter; T79.7XXA Traumatic subcutaneous emphysema, initial encounter; N17.9 Acute kidney failure, unspecified; D62 Acute posthemorrhagic anemia; S42.402A Unspecified fracture of lower end of left humerus, initial encounter for closed fracture; E87.2 Acidosis; S36.113A Laceration of liver, unspecified degree, initial encounter; E87.0 Hyperosmolality and hypernatremia; F10.231 Alcohol dependence with withdrawal delirium; I47.2 Ventricular tachycardia; D68.9 Coagulation defect, unspecified; I48.91 Unspecified atrial fibrillation; D69.59 Other secondary thrombocytopenia; S82.842A Displaced bimalleolar fracture of left lower leg, initial encounter for closed fracture; I44.7 Left bundle-branch block, unspecified; R73.9 Hyperglycemia, unspecified; I11.0 Hypertensive heart disease with heart failure; I50.9 Heart failure, unspecified; L89.629 Pressure ulcer of left heel, unspecified stage; E88.09 Other disorders of plasma-protein metabolism, not elsewhere classified; E83.42 Hypomagnesemia; E83.51 Hypocalcemia; R41.0 Disorientation, unspecified; G47.00 Insomnia, unspecified; E87.6 Hypokalemia; K59.00 Constipation, unspecified; D72.829 Elevated white blood cell count, unspecified; Z23 Encounter for immunization; Y93.01 Activity, walking, marching and hiking; Y90.8 Blood alcohol level of 240 mg/100 ml or more; Z59.0 Homelessness; Z72.0 Tobacco use; Z91.19 Patient's noncompliance with other medical treatment and regimen; Z78.1 Physical restraint status; Z79.82 Long term (current) use of aspirin; V03.10XA Pedestrian on foot injured in collision with car, pick-up truck or van in traffic accident, initial encounter; Y92.410 Unspecified street and highway as the place of occurrence of the external cause; W19.XXXA Unspecified fall, initial encounter; Y92.230 Patient room in hospital as the place of occurrence of the external cause
CPT/HCPCS: 31500; 32551; 36430; 36600; 70460; 71010; 71045; 71260; 72126; 72170; 73030; 73060; 73080; 73551; 73590; 73600; 74000; 74177; 76000; 76937; 80048; 80053; 80061; 80076; 80307; 81001; 82435; 82565; 82805; 82947; 82948; 83605; 83735; 84100; 84132; 84155; 84295; 84443; 84484; 84520; 85007; 85014; 85018; 85025; 85027; 85384; 85610; 85730; 86850; 86900; 86901; 86920; 86927; 87040; 87070; 87086; 87205; 87641; 88305; 88307; 90715; 90732; 90734; 93005; 93306; 94002; 94003; 94150; 94640; 94664; 94667; 94668; 95819; 96374; 96375; 99291; C1713; C9113; G0390; J0131; J0282; J0330; J0360; J0690; J1160; J1170; J1580; J1630; J1650; J1940; J2060; J2212; J2250; J2270; J2370; J2720; J3010; J3370; J3411; J3475; J3480; J7040; J7050; J7060; J7120; J7613; P9016; P9017; P9045; Q9967

== ENCOUNTER → 2017-09-27 | Outpatient (CLI) | payer SELFPAY ==
[~2017-09-27] MED LIST changes: +ACET325T15 PO; +ALPR.25 PO; +ENOX40P SQ; +FURO20TA PO; +IBUP1TAB5 PO; -LACTATED RINGER'S 1000 ML INJ 2,000 ML IV ONE; +Lactulose Liq PO; +MAGN30S PO; +METO25TA3 PO; -NORMOSOL R INJ 2,000 ML IV ONE; +PERI PO; -PHENYLEPH/NS 1000 MCG/10 ML SYR IV ONE; +POTA10CA PO; +QUET1TAB8 PO; -ROCURONIUM INJ 50 MG/5 ML SYRINGE IV PUSH ONE; -SODIUM CHLORID 0.9% 500 ML INJ 500 ML IV ONE; +TRAZ50TA12 PO; +VALP250 PO
== END ==
LOC: HORT 09:31
DX: S82.892A Other fracture of left lower leg, initial encounter for closed fracture (principal); X58.XXXA Exposure to other specified factors, initial encounter
CPT/HCPCS: L2114

== ENCOUNTER 2017-12-06 05:58 | Observation (INO) | payer SELFPAY ==
[2017-12-06] VITALS (8 sets, daily range): BP systolic 127–191; BP diastolic 76–119; PULSE 83–103; RESP 16–20; TEMP 96.9–98.1; O2SAT 95–98
[~2017-12-06] VITALS: Ht 185.4 cm; Wt 100.0 kg
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
[2017-12-06] MEDS ORDERED: METO25TA3 PO (06:25)
[2017-12-06] MEDS ORDERED: MORPHINE SULFATE 2 MG/ML SYRINGE IV PUSH ONE ×2 (06:30→07:45)
[2017-12-06 07:02] LABS: AUTOMATED NEUTROPHIL # 6.5 TH/MM3 (1.8-7.7); BASOPHIL # 0.1 TH/MM3 (0-0.2); BASOPHIL % 0.7 % (0.0-2.0); EOSINOPHIL # 0.3 TH/MM3 (0-0.4); EOSINOPHIL % 2.5 % (0.0-4.0); HEMATOCRIT 40.1 % (39.0-51.0); HEMOGLOBIN 13.9 GM/DL (13.0-17.0); LYMPHOCYTE # 1.9 TH/MM3 (1.0-4.8); MEAN CELL VOLUME 95.3 FL (80.0-100.0); MEAN CORPUSCULAR HEMOGLOBIN 32.9 PG (27.0-34.0); MEAN CORPUSCULAR HGB CONC 34.5 % (32.0-36.0); MEAN PLATELET VOLUME 8.3 FL (7.0-11.0); MONO % 13.3 % (0.0-8.0); MONOCYTE # 1.3 TH/MM3 (0-0.9); NEUT % 64.5 % (16.0-70.0); PLATELET COUNT 406 TH/MM3 (150-450); RED BLOOD COUNT 4.21 MIL/MM3 (4.50-5.90); RED CELL DISTRIBUTION WIDTH 15.4 % (11.6-17.2); WHITE BLOOD COUNT 10.1 TH/MM3 (4.0-11.0)
--- NOTE | 2017-12-06 07:29 | RADRPT ---
EXAM DATE/TIME: 12/06/2017 07:18 [facility] COMPARISON: CHEST SINGLE AP, August 21, 2017, 5:42. INDICATIONS : Chest pain. MEDICAL HISTORY : None. SURGICAL HISTORY : None. ENCOUNTER: Initial ACUITY: 1 day PAIN SCORE: 6/10 LOCATION: [facility] chest FINDINGS: Portable upright AP view of the chest demonstrates a normal-sized cardiac silhouette. Right lung is c lear without acute abnormality. Volume of aerated lung in the left hemithorax is less than the right and there are linear opacities in the mid and lower lung zone, decreased from the prior study. No pne umothorax is visualized. There are multiple displaced left rib fractures again present. No acute osse ous abnormality is seen. CONCLUSION: 1. No acute cardiopulmonary abnormality is identified. 2. Multiple displaced left rib fractures remain visualized and there are linear opacities in the left lung likely representing areas of parenchymal scar. Jung Scales MD on December 06, 2017 at 7:26 Board Certified Radiologist. This report was verified electronically.
[2017-12-06 07:32] LABS: ALKALINE PHOSPHATASE 107 U/L (45-117); ALT (GPT) 11 U/L (12-78); AST (GOT) 19 U/L (15-37); BICARBONATE 23.1 MEQ/L (21.0-32.0); BLOOD UREA NITROGEN 19 MG/DL (7-18); CALCIUM 8.3 MG/DL (8.5-10.1); CHLORIDE 111 MEQ/L (98-107); CREATININE 0.99 MG/DL (0.60-1.30); GLOMERULAR FILTRATION RATE 76 ML/MIN (>89); GLUCOSE,RANDOM 91 MG/DL (74-106); SODIUM (NA) 144 MEQ/L (136-145); TOTAL BILIRUBIN ADULT 0.4 MG/DL (0.2-1.0); TOTAL PROTEIN 6.3 GM/DL (6.4-8.2); TROPONIN I LESS THAN 0.02 NG/ML (0.02-0.05)
[2017-12-06] MEDS ORDERED: LABETALOL HCL 100 MG/20 ML VIAL IV PUSH ONE (07:45)
[2017-12-06] MEDS ORDERED: SODIUM CHLOR 0.9% 1000 ML INJ 1,000 ML IV SCH (07:45)
--- NOTE | 2017-12-06 07:58 | PD ---
Physical Exam Narrative Patient was seen by ED physician and signed out to me. Patient states that he ran out of his blood pressure medication for the past several days. Data Data Last Documented VS Vital Signs Date Time Temp Pulse Resp B/P (MAP) Pulse Ox O2 Delivery O2 Flow Rate FiO2 12/06/17 07:48 94 173/108 (129) 12/06/17 07:25 18 98 Nasal Cannula 2.00 Orders Orders Morphine Inj (Morphine Inj) (12/06/17 06:30) Complete Blood Count With Diff (12/06/17 06:45) Comprehensive Metabolic Panel (12/06/17 06:45) Ckmb (Isoenzyme) Profile (12/06/17 06:45) Troponin I (12/06/17 06:45) Lipase (12/06/17 06:45) Chest, Single Ap (12/06/17 06:45) Electrocardiogram (12/06/17 06:08) CKMB (12/06/17 06:45) CKMB% (12/06/17 06:45) Labetalol Inj (Trandate Inj) (12/06/17 07:45) Sodium Chlor 0.9% 1000 Ml Inj (Ns 1000 M (12/06/17 07:45) Morphine Inj (Morphine Inj) (12/06/17 07:45) Admit Order (Ed Use Only) (12/06/17 08:01) Activity Bed Rest With Brp (12/06/17 08:03) Vital Signs (Adult) Q4H (12/06/17 08:03) Cardiac Rhythm .As Directed (12/06/17 08:03) Notify Dr: Other .PRN (12/06/17 08:03) Notify Parameters (12/06/17 08:03) Resp Oxygen Nasal Cannula (12/06/17 ) Diet Npo (12/06/17 Breakfast) Ckmb (Isoenzyme) Profile (12/06/17 09:45) Ckmb (Isoenzyme) Profile (12/06/17 12:45) Troponin I (12/06/17 09:45) Troponin I (12/06/17 12:45) Electrocardiogram (12/06/17 09:45) Electrocardiogram (12/06/17 12:45) ^ Obtain (12/06/17 08:03) Sodium Chloride 0.9% Flush (Ns Flush) (12/06/17 08:15) Sodium Chloride 0.9% Flush (Ns Flush) (12/06/17 09:00) Acetaminophen (Tylenol) (12/06/17 08:15) Ondansetron Inj (Zofran Inj) (12/06/17 08:15) Sales Support Representative / Telemetry WONG.Q8H (12/06/17 08:03) Labs Laboratory Tests Test 12/06/17 06:45 White Blood Count 10.1 TH/MM3 Red Blood Count 4.21 MIL/MM3 Hemoglobin 13.9 GM/DL Hematocrit 40.1 % Mean Corpuscular Volume 95.3 FL Mean Corpuscular Hemoglobin 32.9 PG Mean Corpuscular Hemoglobin Concent 34.5 % Red Cell Distribution Width 15.4 % Platelet Count 406 TH/MM3 Mean Platelet Volume 8.3 FL Neutrophils (%) (Auto) 64.5 % Lymphocytes (%) (Auto) 19.0 % Monocytes (%) (Auto) 13.3 % Eosinophils (%) (Auto) 2.5 % Basophils (%) (Auto) 0.7 % Neutrophils # (Auto) 6.5 TH/MM3 Lymphocytes # (Auto) 1.9 TH/MM3 Monocytes # (Auto) 1.3 TH/MM3 Eosinophils # (Auto) 0.3 TH/MM3 Basophils # (Auto) 0.1 TH/MM3 CBC Comment DIFF FINAL Differential Comment Blood Urea Nitrogen 19 MG/DL Creatinine 0.99 MG/DL Random Glucose 91 MG/DL Total Protein 6.3 GM/DL Albumin 3.0 GM/DL Calcium Level 8.3 MG/DL Alkaline Phosphatase 107 U/L Aspartate Amino Transf (AST/SGOT) 19 U/L Alanine Aminotransferase (ALT/SGPT) 11 U/L Total Bilirubin 0.4 MG/DL Sodium Level 144 MEQ/L Potassium Level 3.6 MEQ/L Chloride Level 111 MEQ/L Carbon Dioxide Level 23.1 MEQ/L Anion Gap 10 MEQ/L Estimat Glomerular Filtration Rate 76 ML/MIN Total Creatine Kinase 122 U/L Creatine Kinase MB 1.1 NG/ML Troponin I LESS THAN 0.02 NG/ML Lipase 125 U/L [facility] Supervised Visit with NASEEM: No Interpretation(s) EKG shows sinus rhythm nonspecific ST-T wave change. Mild ST depression in inferior leads and lateral leads, unchanged from previous EKG. Last Impressions Chest X-Ray 12/06/17 0645 Signed Impressions: Service Date/Time: November 07:18 - CONCLUSION: 1. No acute cardiopulmonary abnormality is identified. 2. Multiple displaced left rib fractures remain visualized and there are linear opacities in the left lung likely representing areas of parenchymal scar. Jung Scales MD CBC within normal limits. BUN 19. Cardiac enzymes are normal. Narrative Course Labetalol 10 mg IV given. Morphine 2 mg IV. Zofran 4 mg IV. Diagnosis Primary Impression: Chest pain Qualified Codes: R07.9 - Chest pain, unspecified Additional Impression: Uncontrolled hypertension Admitting Information Admitting Physician Requests: Observation Petr Alexander MD Dec 06, 2017 07:58
[2017-12-06] MEDS ORDERED: SODIUM CHLORIDE 0.9% FLUSH 10 ML FLUSH IV FLUSH PRN (08:15)
[2017-12-06] MEDS ORDERED: ONDANSETRON HCL 4 MG/2 ML VIAL IV PUSH PRN (08:15)
[2017-12-06] MEDS ORDERED: ACETAMINOPHEN 500 MG CPLT PO PRN (08:15)
[2017-12-06] MEDS ORDERED: SODIUM CHLORIDE 0.9% FLUSH 10 ML FLUSH IV FLUSH SCH (09:00)
[2017-12-06] MEDS ORDERED: ACETAMINOPHEN/HYDROcodone 325 MG/10 MG TAB PO PRN (09:30)
--- NOTE | 2017-12-06 09:34 | HHI.HP ---
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 He presents with complaint of left lower chest discomfort that began this morning. He states that it woke him up at 5 in the morning. [place] like a knot. Still there. Is worse with movement. He decided it may be muscular and decided to stretch out. He went for a walk to get a coffee but discomfort began to worsen. States was a 10 out of 10. He was short of breath and nauseous. 911 was called. He was given aspirin. Refused nitroglycerin stating he is allergic to it creating a rash. States that leaning forward seems to worsen it and discomfort was increased when someone pressed on it. Denies history of CAD. Cannot recall ever having heart catheterization. He had a nonischemic Lexiscan November 10, 2016 and December 04, 2015. Review of Systems General: Patient denies fevers, chills, and recent travel. HEENT: Patient denies headache, sore throat, difficulty swallowing. Cardiovascular: Has the chest discomfort as mentioned above. Denies sensation of heart beating rapidly or irregularly. No syncope. Denies diaphoresis. Respiratory: He was short of breath. Denies inspirational chest discomfort. Denies coughing wheezing or hemoptysis. GI: He was nauseous. Patient denies vomiting, diarrhea, abdominal pain, bloody stools. Musculoskeletal: Patient denies joint pain or edema. Denies calf pain or edema. Neurovascular: Patient denies numbness, tingling, weakness in extremities. Denies headache. Endocrine: Denies polyuria and polydipsia. Hematologic: Denies easy bruising. Skin: Denies rash or itching. Past Family Social History Allergies: Coded Allergies: Sulfa (Sulfonamide Antibiotics) (Verified Allergy, Intermediate, hives, ) cephalexin (Verified Allergy, Intermediate, hives, 12/06/17) nitroglycerin (Verified Allergy, Intermediate, RASH, 12/06/17) penicillin G (Verified Allergy, Intermediate, hives, 12/06/17) Past Medical History Hypertension. Recent trauma alert July 2017. Stated atrial fibrillation and left bundle branch block. Tobacco abuse. Denies known CAD, hyperlipidemia , and diabetes. 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 Multiple orthopedic surgeries. Reported Medications Reported Meds & Active Scripts Active Eq Acetaminophen (Acetaminophen) 325 Mg Tab 650 Mg PO Q6HR PRN 60 Days Reported Metoprolol Tartrate 25 Mg Tab 25 Mg PO BID Active Ordered Medications Current Medications Medications (Trade) Dose Ordered Sig/Candy Route Start Time Stop Time Status Last Admin Sodium Chloride 1,000 ml @ 100 mls/hr Q10H IV 12/06/17 07:45 (NS Flush) 2 ml UNSCH PRN IV FLUSH 12/06/17 08:15 (NS Flush) 2 ml BID IV FLUSH 12/06/17 09:00 (Tylenol) 500 mg Q4H PRN PO 12/06/17 08:15 (Zofran Inj) 4 mg Q6H PRN IV PUSH 12/06/17 08:15 ([place] 10-325 Mg) 1 tab Q6H PRN PO 12/06/17 09:30 UNV Family History States his mother age 85 old myocardial infarction. Social History Smokes on average 2 cigars per week for the last 2 years. Prior to that he was smoking about one half pack a series daily for 40 years. He states he used to drink alcohol heavily however his last hospitalization was over a month and then he went to a rehabilitation center afterwards and never drank this essentially has stopped drinking. He states that over last 2 weeks since he has been released from that facility he has had a few alcoholic beverages. Denies illicit drug use. Physical Exam Vital Signs Vital Signs Date Time Temp Pulse Resp B/P (MAP) Pulse Ox O2 Delivery O2 Flow Rate FiO2 12/06/17 09:03 103 18 151/111 (124) 97 Nasal Cannula 2.00 12/06/17 08:45 97 170/108 (128) 12/06/17 07:48 94 173/108 (129) 12/06/17 07:25 102 18 191/119 (143) 98 Nasal Cannula 2.00 12/06/17 06:08 101 16 173/103 (126) 97 Room Air 12/06/17 06:08 101 18 98 Room Air Physical Exam GENERAL: This is a well-nourished, well-developed patient, in no apparent distress. Patient speaks in clear complete sentences. Patient is pleasant. HEENT: Head is atraumatic and normocephalic. Neck is supple without lymphadenopathy and trachea is midline. No JVD or carotid bruits. CARDIOVASCULAR: Regular rate and rhythm without murmurs, gallops, or rubs. RESPIRATORY: Clear to auscultation. Breath sounds equal bilaterally. No wheezes , rales, or rhonchi. Chest wall is tender. No use of accessory muscles. GASTROINTESTINAL: Abdomen is nontender, nondistended. Abdomen soft. No obvious pulsatile mass or bruit. No CVA tenderness. Strong femoral pulses bilaterally. Normal bowel sounds in all quadrants. MUSCULOSKELETAL: Patient is moving upper and lower extremities freely. No calf tenderness or edema, no Homans sign. Strong pulses in upper and lower extremities. NEUROLOGICAL: Patient is alert and oriented. Cranial nerves 2-12 are grossly intact. No focal deficits and speech is clear. SKIN: No rash and turgor is normal. Laboratory Laboratory Tests Test 12/06/17 06:45 White Blood Count 10.1 Red Blood Count 4.21 Hemoglobin 13.9 Hematocrit 40.1 Mean Corpuscular Volume 95.3 Mean Corpuscular Hemoglobin 32.9 Mean Corpuscular Hemoglobin Concent 34.5 Red Cell Distribution Width 15.4 Platelet Count 406 Mean Platelet Volume 8.3 Neutrophils (%) (Auto) 64.5 Lymphocytes (%) (Auto) 19.0 Monocytes (%) (Auto) 13.3 Eosinophils (%) (Auto) 2.5 Basophils (%) (Auto) 0.7 Neutrophils # (Auto) 6.5 Lymphocytes # (Auto) 1.9 Monocytes # (Auto) 1.3 Eosinophils # (Auto) 0.3 Basophils # (Auto) 0.1 CBC Comment DIFF FINAL Differential Comment Blood Urea Nitrogen 19 Creatinine 0.99 Random Glucose 91 Total Protein 6.3 Albumin 3.0 Calcium Level 8.3 Alkaline Phosphatase 107 Aspartate Amino Transf (AST/SGOT) 19 Alanine Aminotransferase (ALT/SGPT) 11 Total Bilirubin 0.4 Sodium Level 144 Potassium Level 3.6 Chloride Level 111 Carbon Dioxide Level 23.1 Anion Gap 10 Estimat Glomerular Filtration Rate 76 Total Creatine Kinase 122 Creatine Kinase MB 1.1 Troponin I LESS THAN 0.02 Lipase 125 Result Diagram: 12/06/1745 12/06/1745 Imaging Last 48 hours Impressions Chest X-Ray 12/06/17 0645 Signed Impressions: Service Date/Time: November 07:18 - CONCLUSION: 1. No acute cardiopulmonary abnormality is identified. 2. Multiple displaced left rib fractures remain visualized and there are linear opacities in the left lung likely representing areas of parenchymal scar. Jung Scales MD Course Initial EKG is sinus rhythm rate [address]-T changes. Caprini VTE Risk Assessment Caprini VTE Risk Assessment: Mod/High Risk (score >= 2) Caprini Risk Assessment Model Point Value = 1 Point Value = 2 Point Value = 3 Point Value = 5 Age 41-60 Minor surgery BMI > 25 kg/m2 Swollen legs Varicose veins or History of unexplained or recurrent spontaneous Oral contraceptives or hormone replacement Sepsis (< 1 month) Serious lung disease, including pneumonia (< 1 month) Abnormal pulmonary function Acute myocardial infarction Congestive heart failure (< 1 month) History of inflammatory bowel disease Medical patient at bed rest Age 61-74 Arthroscopic surgery Major open surgery (> 45 min) Laparoscopic surgery (> 45 min) Malignancy Confined to bed (> 72 hours) Immobilizing plaster cast Central venous access Age >= 75 History of VTE Family history of VTE Factor V Leiden Prothrombin [id number] Lupus anticoagulant Anticardiolipin antibodies Elevated serum homocysteine Heparin-induced thrombocytopenia Other congenital or acquired thrombophilia Stroke (< 1 month) Elective arthroplasty Hip, pelvis, or leg fracture Acute spinal cord injury (< 1 month) Prophylaxis Regimen Total Risk Factor Score Risk Level Prophylaxis Regimen 0-1 Low Early ambulation 2 Moderate Order ONE of the following: *Sequential Compression Device (SCD) *Heparin 5000 units SQ BID 3-4 Higher Order ONE of the following medications: *Heparin 5000 units SQ TID *Enoxaparin/Lovenox 40 mg SQ daily (WT < 150 kg, CrCl > 30 mL/min) *Enoxaparin/Lovenox 30 mg SQ daily (WT < 150 kg, CrCl > 10-29 mL/min) *Enoxaparin/Lovenox 30 mg SQ BID (WT < 150 kg, CrCl > 30 mL/min) AND/OR *Sequential Compression Device (SCD) 5 or more Highest Order ONE of the following medications: *Heparin 5000 units SQ TID (Preferred with Epidurals) *Enoxaparin/Lovenox 40 mg SQ daily (WT < 150 kg, CrCl > 30 mL/min) *Enoxaparin/Lovenox 30 mg SQ daily (WT < 150 kg, CrCl > 10-29 mL/min) *Enoxaparin/Lovenox 30 mg SQ BID (WT < 150 kg, CrCl > 30 mL/min) AND *Sequential Compression Device (SCD) Assessment and Plan Assessment and Plan * Chest pain: Patient will continue to have serial cardiac enzymes and EKGs for ruling out purposes. He will be seen by Dr. Tao of cardiology in the chest pain center. He will undergo a Lexiscan and likely be discharged home if the stress test is nonischemic with instructions to follow-up with PCP. * Hypertension: Was given IV labetalol which has improved his blood pressure. Continues medication. * Tobacco abuse: Patient has been counseled on importance of smoking cessation. Patient is stable at this time. He is agreeable to this plan. Irwin Pizano Dec 06, 2017 09:34
[2017-12-06] MEDS ORDERED: cloNIDine HCL 0.1 MG TAB PO PRN (09:45)
[2017-12-06 10:23] LABS: TROPONIN I 0.02 NG/ML (0.02-0.05)
[2017-12-06] MEDS ORDERED: chlordiazePOXIDE 25 MG CAP PO PRN (11:00)
[2017-12-06] MEDS ORDERED: METOPROLOL TARTRATE 25 MG TAB PO ONE (11:00)
[2017-12-06] MEDS ORDERED: REGADENOSON INJ 0.4 MG/5 ML SYR ONE (14:02)
[2017-12-06] MEDS ORDERED: ACETAMINOPHEN/HYDROcodone 325 MG/5 MG TAB PO ONE (16:15)
--- NOTE | 2017-12-06 16:50 | HHI.DCPOC ---
Discharge Care Plan Diagnosis: (1) Chest pain (2) HTN (hypertension) (3) Tobacco abuse Goals to Promote Your Health * To prevent worsening of your condition and complications * To maintain your health at the optimal level Directions to Meet Your Goals Take your medications as prescribed Follow your dietary instruction Follow activity as directed Keep your appointments as scheduled Take your immunizations and boosters as scheduled If your symptoms worsen call your PCP, if no PCP go to Urgent Care Center or Emergency Room Smoking is Dangerous to Your Health. Avoid second hand smoke Call the 24-hour hour crisis hotline for domestic abuse at Irwin Pizano Dec 06, 2017 16:50
--- NOTE | 2017-12-06 16:54 | RADRPT ---
EXAM DATE/TIME: 12/06/2017 13:54 [facility] COMPARISON: MYOCARDIAL PERF PHARM SPECT, GATED W/EF, November 10, 2016, 10:50. INDICATIONS : Chest pain. Angina. DOSE: 35 mCi Tc99m Myoview at stress. 11 mCi Tc99m Myoview at rest. 0.4 mg Lexiscan STRESS SYMPTOMS: Shortness of breath, chest pain. EJECTION FRACTION: 56% MEDICAL HISTORY : Hypertension. Chronic obstructive pulmonary disease. SURGICAL HISTORY : Tonsillectomy. bilateral knee replacement. ENCOUNTER: Initial ACUITY: 1 day PAIN SCALE: 4/10 LOCATION: Left chest TECHNIQUE: The patient underwent pharmacologic stress with infusion of prescribed dose. Continuous ECG tracing was monitored during stress. Gated SPECT imaging was performed after stress and conventional SPECT i maging was performed at rest. The examination was performed on a SPECT/CT scanner, both attenuation and non-corrected datasets were reviewed. FINDINGS: DISTRIBUTION: The maximum perfused segment at stress is in the septal wall. PERFUSION STUDY: The pattern of perfusion at stress shows approximately 10% redistribution in the anterolateral wall. GATED STUDY: There is intact wall motion and thickening without hypokinetic or dyskinetic segments. CONCLUSION: 1. No scintigraphic findings of ischemia. 2. Adequate wall motion throughout with an estimated ejection fraction of 56% RISK CATEGORY: Low (<1% Annual Mortality Rate) Chance Hall MD on December 06, 2017 at 16:40 Board Certified Radiologist. This report was verified electronically.
--- NOTE | 2017-12-06 17:30 | EKG ---
Date Performed: 12/06/2017 Time Performed: 06:08:43 PTAGE: 62 years EKG: Sinus rhythm NONSPECIFIC ST & T-WAVE ABNORMALITY BORDERLINE ECG Since the PREVIOUS TRACING , no significant change noted PREVIOUS TRACIN08/13/2017 16.31 DOCTOR: Neto Leon Interpretating Date/Time 12/06/2017 17:28:40
--- NOTE | 2017-12-06 17:30 | EKG ---
Date Performed: 12/06/2017 Time Performed: 07:31:47 PTAGE: 62 years EKG: Sinus rhythm NONSPECIFIC ST & T-WAVE ABNORMALITY BORDERLINE ECG Since the PREVIOUS TRACING , no significant change noted PREVIOUS TRACIN12/06/2017 06.08 DOCTOR: Neto Leon Interpretating Date/Time 12/06/2017 17:28:51
--- NOTE | 2017-12-06 17:32 | EKG ---
Date Performed: 12/06/2017 Time Performed: 09:37:18 PTAGE: 62 years EKG: Sinus rhythm non-specific ST-T wave changes. ABNORMAL ECG PREVIOUS TRACING : 12/06/2017 07.31 DOCTOR: Neto Leon Interpretating Date/Time 12/06/2017 17:31:40
[2017-12-06 19:04] LABS: TROPONIN I LESS THAN 0.02 NG/ML (0.02-0.05)
[2017-12-06] MEDS ORDERED: METOPROLOL TARTRATE 25 MG TAB PO SCH (21:00)
--- NOTE | 2017-12-07 12:46 | TR ---
Date Performed: 12/06/2017 Time Performed: 14:13:38 DOCTOR: Zana Tao DRUG LIST: CLINICAL HISTORY: REASON FOR TEST: REASON FOR ENDING: OBSERVATION: CONCLUSION: COMMENTS: Lexiscan stress test was performed under standard four minute protocol. Radionuclide was injected one minute prior to ending the test. No electrocardiographic abormalities were present t o suggest ischemia. Nuclear imaging and interpretation are pending.
== END 2017-12-06 18:24 | disposition home or self-care (01) ==
LOC: NEPC 05:58 → NEDA 08:03 → NEPGCP 10:07
DX: R07.89 Other chest pain (principal); I10 Essential (primary) hypertension; I48.91 Unspecified atrial fibrillation; J44.9 Chronic obstructive pulmonary disease, unspecified; F17.200 Nicotine dependence, unspecified, uncomplicated; Z87.442 Personal history of urinary calculi; Z90.81 Acquired absence of spleen; Z82.49 Family history of ischemic heart disease and other diseases of the circulatory system
CPT/HCPCS: 71045; 78452; 80053; 82550; 82552; 83690; 84484; 85025; 93005; 93017; 96361; 96374; 96375; 96376; 99285; A9502; G0378; J2270; J2785; J7030

== ENCOUNTER 2017-12-15 21:32 | Inpatient (IN) | payer SELFPAY ==
[~2017-12-15] VITALS: Ht 185.4 cm; Wt 99.8 kg
[~2017-12-15 21:32] MED LIST changes: -ALPR.25 PO; -AMIO200T PO; -ASPI1TAB56 PO; -CARV3.12 PO; -DILT60TA PO; -ENOX40P SQ; -FOLI800T PO; -FURO20TA PO; -IBUP1TAB5 PO; -LISI-515 PO; -Lactulose Liq PO; -MAGN30S PO; -MECL-62 PO; -PERI PO; -POTA10CA PO; -QUET1TAB8 PO; -TRAZ50TA12 PO; -VALP250 PO
[2017-12-15 21:43] VITALS: BP 184/99; PULSE 101; RESP 19; TEMP 98; O2SAT 96
[2017-12-15] MEDS ORDERED: SODIUM CHLOR 0.9% 1000 ML INJ 1,000 ML IV ONE (21:45)
[2017-12-15] MEDS ORDERED: VANCOMYCIN INJ 1,000 MG in SODIUM CHLOR 0.9% 250 ML INJ 250 ML IV ONE (21:45)
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
[2017-12-15 22:17] LABS: AUTOMATED NEUTROPHIL # 4.5 TH/MM3 (1.8-7.7); BASOPHIL # 0.2 TH/MM3 (0-0.2); BASOPHIL % 2.1 % (0.0-2.0); EOSINOPHIL # 0.4 TH/MM3 (0-0.4); EOSINOPHIL % 4.1 % (0.0-4.0); HEMATOCRIT 36.9 % (39.0-51.0); HEMOGLOBIN 12.6 GM/DL (13.0-17.0); LYMPH % 27.6 % (9.0-44.0); LYMPHOCYTE # 2.4 TH/MM3 (1.0-4.8); MEAN CELL VOLUME 98.3 FL (80.0-100.0); MEAN CORPUSCULAR HEMOGLOBIN 33.5 PG (27.0-34.0); MEAN CORPUSCULAR HGB CONC 34.1 % (32.0-36.0); MEAN PLATELET VOLUME 8.3 FL (7.0-11.0); MONO % 14.7 % (0.0-8.0); MONOCYTE # 1.3 TH/MM3 (0-0.9); NEUT % 51.5 % (16.0-70.0); PLATELET COUNT 312 TH/MM3 (150-450); RED BLOOD COUNT 3.75 MIL/MM3 (4.50-5.90); RED CELL DISTRIBUTION WIDTH 16.7 % (11.6-17.2); WHITE BLOOD COUNT 8.8 TH/MM3 (4.0-11.0)
[2017-12-15] MEDS ORDERED: MORPHINE SULFATE 8 MG/ML INJ IV PUSH ONE (22:30)
--- NOTE | 2017-12-15 22:42 | RADRPT ---
EXAM DATE/TIME: 12/15/2017 22:15 [facility] COMPARISON: No previous studies available for comparison. INDICATIONS : Inflammation and pain with no known injury. MEDICAL HISTORY : Hypertension. Seizures. AFIB. COPD. Renal calculi. Arthritis. Osteoporosis. SURGICAL HISTORY : Tonsillectomy. Left ankle repair. ENCOUNTER: Initial ACUITY: 4 - 6 days PAIN SCORE: 10/10 LOCATION: Left Foot. FINDINGS: There is a soft tissue ulceration along the posterior aspect of the calcaneus. Plantar calcaneal spur ring is noted. Moderate degenerative changes are noted involving the left first metatarsophalangeal j oint. Hardware is noted within the distal tibia and fibula. No acute fracture or dislocation. CONCLUSION: Soft tissue ulceration along the posterior aspect of the calcaneus. Plantar calcaneal spurring. Moder ate degenerative changes involving the left first metatarsophalangeal joint. No acute fracture or dis location. Christian Mendosa MD on December 15, 2017 at 22:38 Board Certified Radiologist. This report was verified electronically.
--- NOTE | 2017-12-15 22:44 | RADRPT ---
EXAM DATE/TIME: 12/15/2017 22:18 [facility] COMPARISON: ANKLE LEFT COMPLETE ([id number]), February 28, 2016, 16:34. INDICATIONS : Inflammation and pain with no known injury. MEDICAL HISTORY : Seizures. AFIB. Hypertension. COPD. Renal calculi. Hypertension. SURGICAL HISTORY : Tonsillectomy. Left ankle repair. ENCOUNTER: Initial ACUITY: 4 - 6 days PAIN SCORE: 10/10 LOCATION: Left Ankle. FINDINGS: There is a focal ulceration involving the soft tissues along the posterior aspect of the calcaneus. P lantar calcaneal spurring is noted. Hardware is noted within the distal fibula and tibia. Soft tissue swelling is noted surrounding the ankle joint. No acute fracture or dislocation is noted CONCLUSION: Focal ulceration involving the soft tissues along the posterior aspect of the calcaneus. Diffuse soft tissue swelling of the ankle. Plantar calcaneal spurring. No acute fracture or dislocation. Christian Mendosa MD on December 15, 2017 at 22:40 Board Certified Radiologist. This report was verified electronically.
[2017-12-15 22:51] LABS: ALKALINE PHOSPHATASE 133 U/L (45-117); TOTAL BILIRUBIN ADULT 0.3 MG/DL (0.2-1.0); TOTAL PROTEIN 6.2 GM/DL (6.4-8.2)
[2017-12-15 22:53] LABS: ALT (GPT) 11 U/L (12-78); AST (GOT) 19 U/L (15-37); BICARBONATE 25.2 MEQ/L (21.0-32.0); BLOOD UREA NITROGEN 14 MG/DL (7-18); CALCIUM 7.8 MG/DL (8.5-10.1); CHLORIDE 110 MEQ/L (98-107); GLOMERULAR FILTRATION RATE 97 ML/MIN (>89); GLUCOSE,RANDOM 103 MG/DL (74-106); SODIUM (NA) 146 MEQ/L (136-145)
[2017-12-15 23:26] LABS: PROTHROMBIN TIME - PATIENT 10.6 SEC (9.8-11.6)
[2017-12-15] MEDS ORDERED: ONDANSETRON HCL 4 MG/2 ML VIAL IVP PRN (23:45)
[2017-12-15] MEDS ORDERED: FLUMAZENIL 0.5 MG/5 ML VIAL IV PUSH PRN (23:45)
[2017-12-15] MEDS ORDERED: SODIUM CHLORIDE 0.9% FLUSH 10 ML FLUSH IV FLUSH PRN (23:45)
[2017-12-15] MEDS ORDERED: MAGNESIUM HYDROXIDE SUSP 30 ML CUP PO PRN (23:45)
[2017-12-15] MEDS ORDERED: Vancomycin Consult Pharmacy 1 EA OTHER SCH (23:45)
[2017-12-15] MEDS ORDERED: LORazepam 2 MG/ML VIAL IV PUSH PRN ×4 (23:45)
[2017-12-15] MEDS ORDERED: BISACODYL 10 MG SUPP RECTAL PRN (23:45)
[2017-12-15] MEDS ORDERED: LORazepam 2 MG TAB PO PRN (23:45)
[2017-12-15] MEDS ORDERED: ACETAMINOPHEN/HYDROcodone 325 MG/5 MG TAB PO PRN (23:45)
[2017-12-15] MEDS ORDERED: HALOPERIDOL LACTATE 5 MG/ML AMP IM PRN (23:45)
[2017-12-15] MEDS ORDERED: ACETAMINOPHEN 325 MG TAB PO PRN (23:45)
[2017-12-15] MEDS ORDERED: SENNOSIDES 8.6 MG TAB PO PRN (23:45)
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
[2017-12-16] VITALS (8 sets, daily range): BP systolic 148–220; BP diastolic 92–126; PULSE 85–98; RESP 16–18; TEMP 97.8–98.6; O2SAT 95–98
[2017-12-16] MEDS: AZTREONAM INJ 1,000 MG in SODIUM CHLORIDE 0.9% INJ 100 ML IV SCH ×5 (00:19→22:30)
[2017-12-16] MEDS: ACETAMINOPHEN/HYDROcodone 325 MG/10 MG TAB PO PRN ×2 (00:26→03:16)
[2017-12-16] MEDS: SODIUM CHLOR 0.9% 1000 ML INJ 1,000 ML IV SCH ×3 (00:27→20:53)
[2017-12-16] MEDS ORDERED: VANCOMYCIN 1,500 MG/NS 500 ML IV ONE ×2 (00:30)
[2017-12-16] MEDS ORDERED: cloNIDine HCL 0.1 MG TAB PO ONE ×2 (01:15→13:45)
[2017-12-16] MEDS: LORazepam 1 MG TAB PO PRN ×3 (06:00→20:36)
[2017-12-16] MEDS: SODIUM CHLORIDE 0.9% FLUSH 10 ML FLUSH IV FLUSH SCH ×2 (09:00→20:50)
[2017-12-16 09:20] LABS: AUTOMATED NEUTROPHIL # 3.7 TH/MM3 (1.8-7.7); BASOPHIL # 0.1 TH/MM3 (0-0.2); BASOPHIL % 1.4 % (0.0-2.0); EOSINOPHIL # 0.3 TH/MM3 (0-0.4); EOSINOPHIL % 4.7 % (0.0-4.0); HEMATOCRIT 35.3 % (39.0-51.0); LYMPH % 21.9 % (9.0-44.0); LYMPHOCYTE # 1.4 TH/MM3 (1.0-4.8); MEAN CELL VOLUME 98.2 FL (80.0-100.0); MEAN CORPUSCULAR HEMOGLOBIN 33.5 PG (27.0-34.0); MEAN CORPUSCULAR HGB CONC 34.1 % (32.0-36.0); MEAN PLATELET VOLUME 8.4 FL (7.0-11.0); MONO % 14.6 % (0.0-8.0); MONOCYTE # 0.9 TH/MM3 (0-0.9); NEUT % 57.4 % (16.0-70.0); PLATELET COUNT 339 TH/MM3 (150-450); WHITE BLOOD COUNT 6.5 TH/MM3 (4.0-11.0)
[2017-12-16] MEDS: FOLIC ACID 1 MG TAB PO SCH (09:41)
[2017-12-16] MEDS: DOCUSATE SODIUM 50 MG/SENNA 8.6 MG TAB PO SCH ×2 (09:41→20:36)
[2017-12-16] MEDS: THIAMINE HCL 100 MG TAB PO SCH (09:42)
[2017-12-16] MEDS: oxyCODONE/ACETAMINOPHEN 10 MG/325 MG TAB PO PRN ×3 (09:42→22:40)
[2017-12-16] MEDS: MULTIVITAMINS/MINERALS THERAPEUTIC TAB PO SCH (09:42)
[2017-12-16] MEDS: HEPARIN SODIUM - SQ 10,000 UNITS/ML VIAL SQ SCH ×2 (09:43→20:37)
[2017-12-16 09:49] LABS: ALBUMIN 2.6 GM/DL (3.4-5.0); BICARBONATE 23.9 MEQ/L (21.0-32.0); CALCIUM 7.4 MG/DL (8.5-10.1); CALCIUM-PROTEIN CORRECTED 8.2 MG/DL (8.5-10.1); CREATININE 0.62 MG/DL (0.60-1.30); TOTAL BILIRUBIN ADULT 0.3 MG/DL (0.2-1.0); TOTAL PROTEIN 5.7 GM/DL (6.4-8.2)
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
[2017-12-16] MEDS: HYDROmorphone HCL PF 2 MG/ML VIAL IV PUSH PRN ×2 (12:06→20:50)
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
[2017-12-16] MEDS ORDERED: VANCOMYCIN 1,500 MG/NS 500 ML IV SCH ×2 (15:00)
--- NOTE | 2017-12-16 16:26 | RADRPT ---
EXAM DATE/TIME: 12/16/2017 15:43 [facility] COMPARISON: FOOT LEFT COMPLETE ([id number]), December 15, 2017, 22:15. INDICATIONS : Osteomyelitis. Wound posterior heel. MEDICAL HISTORY : Hypertension. SURGICAL HISTORY : Inguinal hernia repair. Tonsillectomy. ORIF left tibia. ENCOUNTER: Initial ACUITY: 1 day PAIN SCORE: 5/10 LOCATION: Left foot TECHNIQUE: Multiplanar, multisequence MRI examination was performed without contrast. FINDINGS: Surgical hardware in the distal tibia and fibula. Ill-defined dorsal, medial, and lateral superficial soft tissue edema. Cutaneous ulceration posterior lateral aspect of the heel. Surrounding soft tissue edema in this princess on. No evidence of organized drainable fluid collection in this area. There is minimal posterior calc aneal bone edema on the T2-weighted images but no evidence of bone erosion and no confluent bone eloisa ow signal abnormality on T1-weighted images. This finding likely represents reactive bony change from adjacent soft tissue infection. Moderate severity focal chondromalacia of the medial talar dome. Small circumferential ankle osteophy yulisa. Moderate severity subchondral reactive bony change of the tibial plafond. Osseous subchondral re active bony changes of the second, third, and fourth tarsometatarsal joints. Reactive bony changes in dicating arthrosis are seen at the first and second metatarsophalangeal joints. Hydronephrosis intact. Mild nonspecific sinusitis edema. All visualized tendons are intact. CONCLUSION: 1. Posterior heel ulceration. Minimal adjacent bony edema in the calcaneus likely reactive. No findin gs on the T1-weighted images to confirm osteomyelitis. No evidence of abscess. 2. Arthritic findings of the ankle, TMT joints, and MTP joints. 3. Surgical hardware in the distal tibia and fibula. Jame Sy MD on December 16, 2017 at 16:15 Board Certified Radiologist. This report was verified electronically.
[2017-12-16] MEDS: COLLAGENASE OINT 30 GM TUBE TOPICAL SCH (18:41)
[2017-12-17] VITALS: BP 165/89; PULSE 85; RESP 18; TEMP 97.2; O2SAT 95
[2017-12-17] MEDS: HYDROmorphone HCL PF 2 MG/ML VIAL IV PUSH PRN ×5 (00:53→21:57)
[2017-12-17] MEDS: LORazepam 1 MG TAB PO PRN ×5 (00:54→19:45)
[2017-12-17] MEDS: oxyCODONE/ACETAMINOPHEN 10 MG/325 MG TAB PO PRN ×4 (04:54→21:02)
[2017-12-17] MEDS: VANCOMYCIN 1,500 MG/NS 500 ML IV SCH ×4 (04:58→18:07)
[2017-12-17] MEDS: SODIUM CHLOR 0.9% 1000 ML INJ 1,000 ML IV SCH ×2 (05:00→19:46)
[2017-12-17] MEDS: AZTREONAM INJ 1,000 MG in SODIUM CHLORIDE 0.9% INJ 100 ML IV SCH ×3 (05:00→19:46)
[2017-12-17 08:00] VITALS: BP 164/108; PULSE 91; RESP 16; TEMP 97.9; O2SAT 93
[2017-12-17] MEDS: DOCUSATE SODIUM 50 MG/SENNA 8.6 MG TAB PO SCH ×2 (08:01→19:45)
[2017-12-17] MEDS: MULTIVITAMINS/MINERALS THERAPEUTIC TAB PO SCH (08:01)
[2017-12-17] MEDS: THIAMINE HCL 100 MG TAB PO SCH (08:01)
[2017-12-17] MEDS: FOLIC ACID 1 MG TAB PO SCH (08:01)
[2017-12-17] MEDS: HEPARIN SODIUM - SQ 10,000 UNITS/ML VIAL SQ SCH ×2 (08:04→19:45)
[2017-12-17] MEDS: COLLAGENASE OINT 30 GM TUBE TOPICAL SCH (08:06)
[2017-12-17] MEDS: SODIUM CHLORIDE 0.9% FLUSH 10 ML FLUSH IV FLUSH SCH ×2 (08:06→19:50)
[2017-12-17] MEDS: cloNIDine HCL 0.1 MG TAB PO PRN ×2 (10:01→19:45)
[2017-12-17 12:00] VITALS: BP 125/63; PULSE 91; RESP 17; TEMP 98.2; O2SAT 94
[2017-12-17 16:00] VITALS: BP 173/102; PULSE 82; RESP 18; TEMP 97.6; O2SAT 93
[2017-12-17] MEDS ORDERED: PHARMACY ORDERED LAB ONE (17:45)
[2017-12-17] MEDS ORDERED: LIDOCAINE HCL 1% 50 ML VIAL ONE (18:00)
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
[2017-12-17 20:00] VITALS: BP 192/94; PULSE 109; RESP 21; TEMP 97.6; O2SAT 91
[2017-12-17] MEDS ORDERED: HYDROmorphone HCL PF 0.5 MG/0.5 ML SYRINGE IV PUSH ONE (20:00)
--- NOTE | 2017-12-17 22:40 | HHI.PR ---
Subjective Remarks Patient seen bedside. Pain reported pain to left foot. Is asking for pain medications prior to bedside intervention. Objective Vital Signs Date Time Temp Pulse Resp B/P (MAP) Pulse Ox O2 Delivery O2 Flow Rate FiO2 12/17/17 20:00 97.6 109 21 192/94 (126) 91 12/17/17 18:09 18 12/17/17 16:00 97.6 82 18 173/102 (125) 93 12/17/17 12:00 98.2 91 17 125/63 (83) 94 12/17/17 08:00 97.9 91 16 164/108 (126) 93 12/17/17 00:00 97.2 85 18 165/89 (114) 95 I/O 12/16/17 12/16/17 12/16/17 12/17/17 12/17/17 12/17/17 07:00 15:00 23:00 07:00 15:00 23:00 Intake Total 1250 ml 240 ml 1080 ml Output Total 600 ml 1025 ml Balance 1250 ml -360 ml 55 ml Intake Oral 240 ml 1080 ml IV Total 1250 ml Output Urine Total 600 ml 1025 ml # Bowel Movements 0 Result Diagram: 12/16/17 0811 12/16/17 0811 Imaging Last Impressions Foot MRI 12/16/17 0000 Signed Impressions: Service Date/Time: Saturday, December 16, 2017 15:43 - CONCLUSION: 1. Posterior heel ulceration. Minimal adjacent bony edema in the calcaneus likely reactive. No findings on the T1-weighted images to confirm osteomyelitis. No evidence of abscess. 2. Arthritic findings of the ankle, TMT joints, and MTP joints. 3. Surgical hardware in the distal tibia and fibula. Jame Sy MD Foot X-Ray 12/15/17 0000 Signed Impressions: Service Date/Time: Friday, December 15, 2017 22:15 - CONCLUSION: Soft tissue ulceration along the posterior aspect of the calcaneus. Plantar calcaneal spurring. Moderate degenerative changes involving the left first metatarsophalangeal joint. No acute fracture or dislocation. Christian Mendosa MD Ankle X-Ray 12/15/17 0000 Signed Impressions: Service Date/Time: Friday, December 15, 2017 22:18 - CONCLUSION: Focal ulceration involving the soft tissues along the posterior aspect of the calcaneus. Diffuse soft tissue swelling of the ankle. Plantar calcaneal spurring. No acute fracture or dislocation. Christian Mendosa MD Other Results Microbiology Date/Time Source Procedure Growth Status 12/15/17 22:30 Blood Peripheral Aerobic Blood Culture - Preliminary NO GROWTH IN 2 DAYS Resulted 12/15/17 22:30 Blood Peripheral Anaerobic Blood Culture - Preliminary NO GROWTH IN 2 DAYS Resulted 12/15/17 21:50 Wound Foot Gram Stain - Final Resulted 12/15/17 21:50 Wound Culture - Preliminary Staphylococcus Aureus Gram Negative Shane Streptococcus Species Resulted Objective Remarks Lower extremity physical exam: Vascular: Dorsalis pedis diminished but palpable, posterior tibial diminished but palpable left lower extremity. Capillary refill time within normal limits to digits 5 bilateral foot. Edema left foot and ankle Neuro: Gross sensation intact to bilateral lower extremity. Pinpoint sensation decreased bilateral lower extremity. No hyperalgesia noted to bilateral lower extremity Dermatology: Left plantar lateral heel wound noted with fibro-granular mixed base, serous drainage noted, probe to bone noted, surrounding erythema and edema , no fluctuance or crepitance noted. Musculoskeletal: Tender to palpation to left heel at site of ulceration. Medications and IVs Current Medications Medications (Trade) Dose Ordered Sig/Candy Route Start Time Stop Time Status Last Admin (Folate) 1 mg DAILY PO 12/16/17 09:00 12/21/17 08:59 12/17/17 08:01 (Vitamin B1) 100 mg DAILY PO 12/16/17 09:00 12/17/17 08:01 (Theragran M Tab) 1 tab DAILY PO 12/16/17 09:00 12/21/17 08:59 12/17/17 08:01 (Romazicon Inj) 0.2 mg Q1M PRN IV PUSH 12/15/17 23:45 (Ativan) 1 mg Q4H PRN PO 12/15/17 23:45 12/17/17 19:45 (Ativan Inj) 1 mg Q4H PRN IV PUSH 12/15/17 23:45 (Ativan) 2 mg Q2H PRN PO 12/15/17 23:45 (Ativan Inj) 2 mg Q2H PRN IV PUSH 12/15/17 23:45 (Ativan Inj) 2 mg Q1H PRN IV PUSH 12/15/17 23:45 (Ativan Inj) 2 mg Q15M PRN IV PUSH 12/15/17 23:45 (Haldol Inj) 2 mg Q15M PRN IM 12/15/17 23:45 Pharmacy Profile Note 0 ml @ 0 mls/hr UNSCH OTHER 12/15/17 23:45 Sodium Chloride 1,000 ml @ 100 mls/hr Q10H IV 12/16/17 00:00 12/17/17 19:46 (NS Flush) 2 ml UNSCH PRN IV FLUSH 12/15/17 23:45 (NS Flush) 2 ml BID IV FLUSH 12/16/17 09:00 12/17/17 19:50 (Zofran Inj) 4 mg Q6H PRN IVP 12/15/17 23:45 (Heparin Inj) 5,000 units Q12H SQ 12/16/17 09:00 12/17/17 19:45 (Tylenol) 650 mg Q6H PRN PO 12/15/17 23:45 (Desi-Colace) 1 tab BID PO 12/16/17 09:00 12/17/17 19:45 (Milk Of Magnesia Liq) 30 ml Q12H PRN PO 12/15/17 23:45 (Senokot) 17.2 mg Q12H PRN PO 12/15/17 23:45 (Dulcolax Supp) 10 mg DAILY PRN RECTAL 12/15/17 23:45 (Lactulose Liq) 30 ml DAILY PRN PO 12/15/17 23:45 (Percocet 10-325 Mg) 1 tab Q6H PRN PO 12/16/17 09:15 12/17/17 21:02 (Dilaudid Pf Inj) 1 mg Q4H PRN IV PUSH 12/16/17 09:15 12/17/17 21:57 (Santyl Oint) 1 applic DAILY TOPICAL 12/16/17 13:00 12/17/17 08:06 (Catapres) 0.1 mg Q6H PRN PO 12/16/17 13:30 12/17/17 19:45 Aztreonam 1000 mg/ Sodium Chloride 100 ml @ 200 mls/hr Q8H IV 12/16/17 21:00 12/17/17 19:46 Vancomycin HCl 1500 mg/Sodium Chloride 515 ml @ 257.5 mls/ hr Q12H IV 12/17/17 06:00 12/17/17 18:07 Assessment and Plan Assessment and Plan 62-year-old male with left heel ulcer with probe to bone concern for osteomyelitis Patient examined and evaluated all questions answered Bedside debridement and irrigation performed MILLIE wound vac applied MRI negative for OM Will re evaluate wound prior to discharge Will order arterial dopplers Upon discharge patient will need follow up with wound care center at [place] Procedure Note: 1% lidocaine plain infiltrated about the left heel without incident, 10 cc total. 10 blade utilized to perform full-thickness excisional debridement and removal of all nonviable fibrotic tissue. Copious irrigation performed to left heel. Deep culture taken post irrigation. Patient tolerated procedure and anesthesia well neurovascular status intact to left foot intact. Annelise Garber DPM December 17, 2017 22:40
[2017-12-18] VITALS: BP 184/117; PULSE 93; RESP 20; TEMP 98.3; O2SAT 91
[2017-12-18] MEDS: LORazepam 1 MG TAB PO PRN ×5 (00:18→22:51)
[2017-12-18] MEDS: HYDROmorphone HCL PF 2 MG/ML VIAL IV PUSH PRN ×5 (02:00→20:51)
[2017-12-18] MEDS: oxyCODONE/ACETAMINOPHEN 10 MG/325 MG TAB PO PRN ×3 (02:58→13:47)
[2017-12-18 04:00] VITALS: BP 184/96; PULSE 94; RESP 18; TEMP 98.7; O2SAT 94
[2017-12-18] MEDS: AZTREONAM INJ 1,000 MG in SODIUM CHLORIDE 0.9% INJ 100 ML IV SCH ×3 (04:40→19:54)
[2017-12-18] MEDS: VANCOMYCIN 1,500 MG/NS 500 ML IV SCH ×4 (05:35→17:27)
[2017-12-18 08:00] VITALS: BP 180/98; PULSE 99; RESP 18; TEMP 98.1; O2SAT 97
[2017-12-18] MEDS: SODIUM CHLORIDE 0.9% FLUSH 10 ML FLUSH IV FLUSH SCH ×2 (09:00→19:54)
[2017-12-18] MEDS ORDERED: LISINOPRIL 20 MG TAB PO ONE (09:00)
[2017-12-18] MEDS: FOLIC ACID 1 MG TAB PO SCH (09:00)
[2017-12-18] MEDS: COLLAGENASE OINT 30 GM TUBE TOPICAL SCH (09:00)
[2017-12-18] MEDS: MULTIVITAMINS/MINERALS THERAPEUTIC TAB PO SCH (09:03)
[2017-12-18] MEDS: DOCUSATE SODIUM 50 MG/SENNA 8.6 MG TAB PO SCH ×2 (09:03→19:54)
[2017-12-18] MEDS: HEPARIN SODIUM - SQ 10,000 UNITS/ML VIAL SQ SCH ×2 (09:05→19:55)
[2017-12-18] MEDS: THIAMINE HCL 100 MG TAB PO SCH (11:24)
[2017-12-18] MEDS: cloNIDine HCL 0.1 MG TAB PO PRN (11:24)
[2017-12-18 12:00] VITALS: BP 170/102; PULSE 107; RESP 18; TEMP 98.5; O2SAT 93
--- NOTE | 2017-12-18 13:30 | RADRPT ---
EXAM DATE/TIME: 12/17/2017 00:00 [facility] COMPARISON: No previous studies available for comparison. INDICATIONS : Infected left heel ulceration TECHNIQUE: Four-cuff ankle and brachial pressures were obtained. Pulse cuff waveform tracings of the ankles were recorded, and ankle-brachial indices were calculated. PRESSURES (mmHg): Brachial (arm): Right 172 Left 181 Ankle: Right 173 Left 170 CHRISTINA: Right 0.96 Left 0.94 TBI: Right 0.85 Left 1.01 PULSED CUFF WAVEFORMS: Demonstrate normal amplitude bilaterally. CONCLUSION: Unremarkable ankle brachial indices. Leonard Donahue MD on December 18, 2017 at 13:28 Board Certified Radiologist. This report was verified electronically.
[2017-12-18 16:00] VITALS: BP 174/98; PULSE 97; RESP 16; TEMP 97.9; O2SAT 96
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
[2017-12-18] MEDS: DOXAZOSIN MESYLATE 4 MG TAB PO SCH (17:27)
[2017-12-18] MEDS: oxyCODONE/ACETAMINOPHEN 5 MG/325 MG TAB PO PRN ×2 (19:56→23:55)
[2017-12-18 20:00] VITALS: BP 169/91; PULSE 98; RESP 18; TEMP 97.5; O2SAT 91
[2017-12-19] VITALS: BP 166/98; PULSE 76; RESP 18; TEMP 98.6; O2SAT 96
[2017-12-19] MEDS: HYDROmorphone HCL PF 2 MG/ML VIAL IV PUSH PRN ×5 (00:59→22:37)
[2017-12-19] MEDS: LORazepam 1 MG TAB PO PRN ×5 (02:54→20:01)
[2017-12-19] MEDS: AZTREONAM INJ 1,000 MG in SODIUM CHLORIDE 0.9% INJ 100 ML IV SCH ×3 (04:00→21:50)
[2017-12-19] MEDS: oxyCODONE/ACETAMINOPHEN 5 MG/325 MG TAB PO PRN ×5 (04:04→21:49)
[2017-12-19] MEDS: VANCOMYCIN 1,500 MG/NS 500 ML IV SCH ×4 (05:06→17:15)
[2017-12-19 08:00] VITALS: BP 152/100; PULSE 92; RESP 17; TEMP 97.8; O2SAT 92
[2017-12-19] MEDS: SODIUM CHLORIDE 0.9% FLUSH 10 ML FLUSH IV FLUSH SCH ×2 (09:00→20:04)
[2017-12-19] MEDS: HEPARIN SODIUM - SQ 10,000 UNITS/ML VIAL SQ SCH ×2 (09:00→20:01)
[2017-12-19] MEDS: COLLAGENASE OINT 30 GM TUBE TOPICAL SCH (09:00)
[2017-12-19] MEDS: THIAMINE HCL 100 MG TAB PO SCH (09:38)
[2017-12-19] MEDS: DOCUSATE SODIUM 50 MG/SENNA 8.6 MG TAB PO SCH ×2 (09:38→20:01)
[2017-12-19] MEDS: MULTIVITAMINS/MINERALS THERAPEUTIC TAB PO SCH (09:39)
[2017-12-19] MEDS: DOXAZOSIN MESYLATE 4 MG TAB PO SCH (09:39)
[2017-12-19] MEDS: LISINOPRIL 20 MG TAB PO SCH (09:39)
[2017-12-19 10:52] LABS: AUTOMATED NEUTROPHIL # 3.4 TH/MM3 (1.8-7.7); BASOPHIL # 0.1 TH/MM3 (0-0.2); EOSINOPHIL # 0.4 TH/MM3 (0-0.4); EOSINOPHIL % 6.6 % (0.0-4.0); HEMATOCRIT 37.3 % (39.0-51.0); HEMOGLOBIN 12.6 GM/DL (13.0-17.0); LYMPH % 23.1 % (9.0-44.0); LYMPHOCYTE # 1.6 TH/MM3 (1.0-4.8); MEAN CELL VOLUME 100.4 FL (80.0-100.0); MEAN CORPUSCULAR HGB CONC 33.9 % (32.0-36.0); MEAN PLATELET VOLUME 8.4 FL (7.0-11.0); MONO % 19.4 % (0.0-8.0); MONOCYTE # 1.3 TH/MM3 (0-0.9); NEUT % 49.9 % (16.0-70.0); PLATELET COUNT 324 TH/MM3 (150-450); RED BLOOD COUNT 3.71 MIL/MM3 (4.50-5.90); RED CELL DISTRIBUTION WIDTH 17.6 % (11.6-17.2); WHITE BLOOD COUNT 6.8 TH/MM3 (4.0-11.0)
[2017-12-19 11:21] LABS: ALBUMIN 2.6 GM/DL (3.4-5.0); AST (GOT) 14 U/L (15-37); BICARBONATE 25.7 MEQ/L (21.0-32.0); BLOOD UREA NITROGEN 6 MG/DL (7-18); CALCIUM 8.2 MG/DL (8.5-10.1); CHLORIDE 109 MEQ/L (98-107); CREATININE 0.76 MG/DL (0.60-1.30); GLOMERULAR FILTRATION RATE 103 ML/MIN (>89); GLUCOSE,RANDOM 103 MG/DL (74-106); MAGNESIUM 1.9 MG/DL (1.5-2.5); SODIUM (NA) 143 MEQ/L (136-145)
[2017-12-19 11:22] LABS: ALT (GPT) 9 U/L (12-78); PHOSPHORUS 2.9 MG/DL (2.5-4.9)
[2017-12-19 11:24] LABS: ALKALINE PHOSPHATASE 101 U/L (45-117); TOTAL BILIRUBIN ADULT 0.3 MG/DL (0.2-1.0); TOTAL PROTEIN 6.1 GM/DL (6.4-8.2)
[2017-12-19 12:00] VITALS: BP 170/85; PULSE 97; RESP 17; TEMP 97.9; O2SAT 93
[2017-12-19] MEDS: FOLIC ACID 1 MG TAB PO SCH (13:35)
[2017-12-19 16:00] VITALS: BP 156/103; PULSE 101; RESP 16; TEMP 97.7; O2SAT 96
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
[2017-12-19 20:00] VITALS: BP 169/100; PULSE 105; RESP 18; TEMP 97.6; O2SAT 96
[2017-12-19] MEDS ORDERED: DOXAZOSIN MESYLATE 2 MG TAB PO ONE (20:00)
[2017-12-20] VITALS: BP 145/102; PULSE 99; RESP 18; TEMP 97.9; O2SAT 94
[2017-12-20] MEDS: oxyCODONE/ACETAMINOPHEN 5 MG/325 MG TAB PO PRN ×8 (01:53→22:55)
[2017-12-20] MEDS: HYDROmorphone HCL PF 2 MG/ML VIAL IV PUSH PRN ×5 (02:55→20:44)
[2017-12-20] MEDS: LORazepam 1 MG TAB PO PRN ×5 (05:21→22:50)
[2017-12-20] MEDS: AZTREONAM INJ 1,000 MG in SODIUM CHLORIDE 0.9% INJ 100 ML IV SCH ×3 (05:23→22:50)
[2017-12-20] MEDS ORDERED: PHARMACY ORDERED LAB ONE (05:45)
[2017-12-20] MEDS: VANCOMYCIN 1,500 MG/NS 500 ML IV SCH ×4 (06:53→18:31)
[2017-12-20 08:00] VITALS: BP 172/111; PULSE 99; RESP 18; TEMP 97.6; O2SAT 94
[2017-12-20] MEDS: DOXAZOSIN MESYLATE 2 MG TAB PO SCH (08:45)
[2017-12-20] MEDS: LISINOPRIL 20 MG TAB PO SCH (08:46)
[2017-12-20] MEDS: HEPARIN SODIUM - SQ 10,000 UNITS/ML VIAL SQ SCH ×2 (08:46→20:45)
[2017-12-20] MEDS: SODIUM CHLORIDE 0.9% FLUSH 10 ML FLUSH IV FLUSH SCH (08:46)
[2017-12-20] MEDS: THIAMINE HCL 100 MG TAB PO SCH (08:46)
[2017-12-20] MEDS: DOCUSATE SODIUM 50 MG/SENNA 8.6 MG TAB PO SCH ×2 (08:46→20:45)
[2017-12-20] MEDS: FOLIC ACID 1 MG TAB PO SCH (08:46)
[2017-12-20] MEDS: MULTIVITAMINS/MINERALS THERAPEUTIC TAB PO SCH (08:46)
[2017-12-20] MEDS: COLLAGENASE OINT 30 GM TUBE TOPICAL SCH (08:47)
[2017-12-20 12:00] VITALS: BP 152/77; PULSE 106; RESP 18; TEMP 97.6; O2SAT 95
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
[2017-12-20 16:00] VITALS: BP 165/90; PULSE 110; RESP 16; TEMP 97.4; O2SAT 98
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
[2017-12-20] MEDS ORDERED: LEVOFLOXACIN 750 MG PREMIX INJ 150 ML IV SCH (19:00)
[2017-12-20 20:00] VITALS: BP 171/97; PULSE 105; RESP 18; TEMP 97.8; O2SAT 94
--- NOTE | 2017-12-20 21:00 | HHI.PR ---
Subjective Remarks Patient seen bedside. Pain reported pain to left foot. Objective Vital Signs Date Time Temp Pulse Resp B/P (MAP) Pulse Ox O2 Delivery O2 Flow Rate FiO2 12/20/17 16:00 97.4 110 16 165/90 (115) 98 12/20/17 12:00 97.6 106 18 152/77 (102) 95 12/20/17 08:00 97.6 99 18 172/111 (131) 94 12/20/17 04:23 20 12/20/17 03:25 20 12/20/17 00:00 97.9 99 18 145/102 (116) 94 I/O 12/19/17 12/19/17 12/19/17 12/20/17 12/20/17 12/20/17 07:00 15:00 23:00 07:00 15:00 23:00 Intake Total 580 ml 515 ml 500 ml 240 ml 840 ml Output Total 2500 ml 1000 ml 1400 ml 1250 ml Balance -1920 ml 515 ml -500 ml -1160 ml -410 ml Intake Oral 480 ml 500 ml 240 ml 840 ml IV Total 100 ml 515 ml Output Urine Total 2500 ml 1000 ml 1400 ml 1250 ml # Bowel Movements 1 0 0 Result Diagram: 12/19/17 1030 12/19/17 1030 Imaging Last Impressions Foot MRI 12/16/17 0000 Signed Impressions: Service Date/Time: Saturday, December 16, 2017 15:43 - CONCLUSION: 1. Posterior heel ulceration. Minimal adjacent bony edema in the calcaneus likely reactive. No findings on the T1-weighted images to confirm osteomyelitis. No evidence of abscess. 2. Arthritic findings of the ankle, TMT joints, and MTP joints. 3. Surgical hardware in the distal tibia and fibula. Jame Sy MD Foot X-Ray 12/15/17 0000 Signed Impressions: Service Date/Time: Friday, December 15, 2017 22:15 - CONCLUSION: Soft tissue ulceration along the posterior aspect of the calcaneus. Plantar calcaneal spurring. Moderate degenerative changes involving the left first metatarsophalangeal joint. No acute fracture or dislocation. Christian Mendosa MD Ankle X-Ray 12/15/17 0000 Signed Impressions: Service Date/Time: Friday, December 15, 2017 22:18 - CONCLUSION: Focal ulceration involving the soft tissues along the posterior aspect of the calcaneus. Diffuse soft tissue swelling of the ankle. Plantar calcaneal spurring. No acute fracture or dislocation. Christian Mendosa MD Objective Remarks Lower extremity physical exam: Vascular: Dorsalis pedis diminished but palpable, posterior tibial diminished but palpable left lower extremity. Capillary refill time within normal limits to digits 5 bilateral foot. Edema left foot and ankle Neuro: Gross sensation intact to bilateral lower extremity. Pinpoint sensation decreased bilateral lower extremity. No hyperalgesia noted to bilateral lower extremity Dermatology: Left plantar lateral heel wound noted with fibro-granular mixed base, serous drainage noted, probe to bone noted, improved and resolved surrounding erythema and edema, no fluctuance or crepitance noted. Improvement noted in granulation and size. Musculoskeletal: Tender to palpation to left heel at site of ulceration. Medications and IVs Current Medications Medications (Trade) Dose Ordered Sig/Candy Route Start Time Stop Time Status Last Admin (Folate) 1 mg DAILY PO 12/16/17 09:00 12/21/17 08:59 12/20/17 08:46 (Vitamin B1) 100 mg DAILY PO 12/16/17 09:00 12/20/17 08:46 (Theragran M Tab) 1 tab DAILY PO 12/16/17 09:00 12/21/17 08:59 12/20/17 08:46 (Romazicon Inj) 0.2 mg Q1M PRN IV PUSH 12/15/17 23:45 (Ativan) 1 mg Q4H PRN PO 12/15/17 23:45 12/20/17 18:41 (Ativan Inj) 1 mg Q4H PRN IV PUSH 12/15/17 23:45 (Ativan) 2 mg Q2H PRN PO 12/15/17 23:45 12/20/17 01:10 (Ativan Inj) 2 mg Q2H PRN IV PUSH 12/15/17 23:45 (Ativan Inj) 2 mg Q1H PRN IV PUSH 12/15/17 23:45 (Ativan Inj) 2 mg Q15M PRN IV PUSH 12/15/17 23:45 (Haldol Inj) 2 mg Q15M PRN IM 12/15/17 23:45 Pharmacy Profile Note 0 ml @ 0 mls/hr UNSCH OTHER 12/15/17 23:45 (NS Flush) 2 ml UNSCH PRN IV FLUSH 12/15/17 23:45 (NS Flush) 2 ml BID IV FLUSH 12/16/17 09:00 12/19/17 20:04 (Zofran Inj) 4 mg Q6H PRN IVP 12/15/17 23:45 (Heparin Inj) 5,000 units Q12H SQ 12/16/17 09:00 12/20/17 20:45 (Tylenol) 650 mg Q6H PRN PO 12/15/17 23:45 (Desi-Colace) 1 tab BID PO 12/16/17 09:00 12/20/17 20:45 (Milk Of Magnesia Liq) 30 ml Q12H PRN PO 12/15/17 23:45 (Senokot) 17.2 mg Q12H PRN PO 12/15/17 23:45 (Dulcolax Supp) 10 mg DAILY PRN RECTAL 12/15/17 23:45 (Lactulose Liq) 30 ml DAILY PRN PO 12/15/17 23:45 (Dilaudid Pf Inj) 1 mg Q4H PRN IV PUSH 12/16/17 09:15 12/20/17 20:44 (Santyl Oint) 1 applic DAILY TOPICAL 12/16/17 13:00 12/20/17 08:47 (Catapres) 0.1 mg Q6H PRN PO 12/16/17 13:30 12/18/17 11:24 Aztreonam 1000 mg/ Sodium Chloride 100 ml @ 200 mls/hr Q8H IV 12/16/17 21:00 12/20/17 14:58 Vancomycin HCl 1500 mg/Sodium Chloride 515 ml @ 257.5 mls/ hr Q12H IV 12/17/17 06:00 12/20/17 18:31 (Norvasc) 10 mg DAILY PO 12/19/17 09:00 12/20/17 08:46 (Prinivil) 20 mg DAILY PO 12/19/17 09:00 12/20/17 08:46 (Percocet 5-325 Mg) 1 tab Q4H PRN PO 12/18/17 16:45 12/19/17 07:52 (Percocet 5-325 Mg) 2 tab Q4H PRN PO 12/18/17 16:45 5/10/18 18:36 (Cardura) 6 mg DAILY PO 12/20/17 09:00 12/20/17 08:45 Levofloxacin/ Dextrose 150 ml @ 100 mls/hr Q24H IV 12/20/17 19:00 Assessment and Plan Assessment and Plan 62-year-old male with left heel ulcer with probe to bone concern for osteomyelitis Patient examined and evaluated all questions answered Upon discharge patient will need follow up with wound care center at [place] within 1 week of DC Patient is requesting possible rehab since he will not be able to stay off if it and fears it will only get worse While in house continue with santyl and DSD Upon DC continue with santyl and DSD until seen in wound care center Annelise Garber DPM December 20, 2017 20:59
[2017-12-20] MEDS: METOPROLOL TARTRATE 50 MG TAB PO SCH (22:50)
[2017-12-21] MEDS: HYDROmorphone HCL PF 2 MG/ML VIAL IV PUSH PRN ×3 (00:44→09:58)
[2017-12-21] MEDS: SODIUM CHLORIDE 0.9% FLUSH 10 ML FLUSH IV FLUSH SCH ×3 (00:45→21:16)
[2017-12-21] MEDS: LEVOFLOXACIN 750 MG PREMIX INJ 150 ML IV SCH ×2 (00:45→21:19)
[2017-12-21] MEDS: oxyCODONE/ACETAMINOPHEN 5 MG/325 MG TAB PO PRN ×5 (02:43→21:15)
[2017-12-21] MEDS: LORazepam 1 MG TAB PO PRN ×5 (02:43→21:22)
[2017-12-21] MEDS: metroNIDAZOLE 500 MG INJ 100 ML IV SCH ×3 (02:44→17:22)
[2017-12-21] MEDS: VANCOMYCIN 1,500 MG/NS 500 ML IV SCH ×4 (05:08→17:19)
[2017-12-21 06:42] LABS: CREATININE 0.77 MG/DL (0.60-1.30)
[2017-12-21 08:00] VITALS: BP 207/105; PULSE 85; RESP 18; TEMP 97.5; O2SAT 94
[2017-12-21] MEDS: DOCUSATE SODIUM 50 MG/SENNA 8.6 MG TAB PO SCH ×2 (08:38→21:16)
[2017-12-21] MEDS: LISINOPRIL 20 MG TAB PO SCH (08:38)
[2017-12-21] MEDS: THIAMINE HCL 100 MG TAB PO SCH (08:38)
[2017-12-21] MEDS: DOXAZOSIN MESYLATE 2 MG TAB PO SCH (08:38)
[2017-12-21] MEDS: METOPROLOL TARTRATE 50 MG TAB PO SCH ×2 (08:38→21:16)
[2017-12-21] MEDS: HEPARIN SODIUM - SQ 10,000 UNITS/ML VIAL SQ SCH ×2 (08:39→21:15)
[2017-12-21 12:00] VITALS: BP 138/91; PULSE 79; RESP 18; TEMP 97.6; O2SAT 97
[2017-12-21] MEDS: COLLAGENASE OINT 30 GM TUBE TOPICAL SCH (12:19)
[2017-12-21] MEDS: LACTULOSE SYRUP 20 GM/30 ML CUP PO PRN (13:33)
[2017-12-21] MEDS: KETOROLAC TROMETHAMINE 30 MG/ML (IVP) VIAL IV PUSH PRN ×2 (13:33→22:26)
[2017-12-21 16:00] VITALS: BP 196/112; PULSE 84; RESP 16; TEMP 97.4; O2SAT 97
[2017-12-21] MEDS: cloNIDine HCL 0.1 MG TAB PO PRN (16:01)
--- NOTE | 2017-12-21 18:41 | HHI.IDPN ---
Subjective Subjective Remarks co R foot pain no fever Antibiotics levaquin flagyl vanco Allergies: Coded Allergies: Sulfa (Sulfonamide Antibiotics) (Verified Allergy, Intermediate, hives, 12/16/17) cephalexin (Verified Allergy, Intermediate, hives, 12/16/17) nitroglycerin (Verified Allergy, Intermediate, RASH, 12/16/17) penicillin G (Verified Allergy, Intermediate, hives, 12/16/17) Objective . Vital Signs Date Time Temp Pulse Resp B/P (MAP) Pulse Ox O2 Delivery O2 Flow Rate FiO2 12/21/17 16:00 97.4 84 16 196/112 (140) 97 12/21/17 12:00 97.6 79 18 138/91 (107) 97 12/21/17 10:00 16 12/21/17 08:00 97.5 85 18 207/105 (139) 94 12/20/17 20:00 97.8 105 18 171/97 (121) 94 12/21/17 12/21/17 12/22/17 15:00 23:00 07:00 Intake Total 960 ml Output Total 1600 ml Balance -640 ml Intake Oral 960 ml Output Urine Total 1600 ml # Bowel Movements 0 . Laboratory Tests Test 12/21/17 05:40 Creatinine 0.77 MG/DL Estimat Glomerular Filtration Rate 102 ML/MIN Imaging Last Impressions Foot MRI 12/16/17 0000 Signed Impressions: Service Date/Time: Saturday, December 16, 2017 15:43 - CONCLUSION: 1. Posterior heel ulceration. Minimal adjacent bony edema in the calcaneus likely reactive. No findings on the T1-weighted images to confirm osteomyelitis. No evidence of abscess. 2. Arthritic findings of the ankle, TMT joints, and MTP joints. 3. Surgical hardware in the distal tibia and fibula. Jame Sy MD Foot X-Ray 12/15/17 0000 Signed Impressions: Service Date/Time: Friday, December 15, 2017 22:15 - CONCLUSION: Soft tissue ulceration along the posterior aspect of the calcaneus. Plantar calcaneal spurring. Moderate degenerative changes involving the left first metatarsophalangeal joint. No acute fracture or dislocation. Christian Mendosa MD Ankle X-Ray 12/15/17 0000 Signed Impressions: Service Date/Time: Friday, December 15, 2017 22:18 - CONCLUSION: Focal ulceration involving the soft tissues along the posterior aspect of the calcaneus. Diffuse soft tissue swelling of the ankle. Plantar calcaneal spurring. No acute fracture or dislocation. Christian Mendosa MD Physical Exam CONSTITUTIONAL/GENERAL: This is an obese elderly patient, in no apparent distress. TUBES/LINES/DRAINS: SKIN: No jaundice, rashes, or lesions. . Skin temperature appropriate. Not diaphoretic. CARDIOVASCULAR: Regular rate and rhythm without murmurs, gallops, or rubs. No JVD. Peripheral pulses symmetric. RESPIRATORY/CHEST: Symmetric, unlabored respirations. Clear to auscultation. Breath sounds equal bilaterally. No wheezes, rales, or rhonchi. GASTROINTESTINAL: Abdomen soft, non-tender, nondistended. No hepato-splenomegaly , or palpable masses. No guarding. Bowel sounds present. MUSCULOSKELETAL: . L heel with large deep foul smelling wound: odor seems less prominent + edema of the heel, prominent Healed ankle incision LYMPHATICS: No palpable cervical or supraclavicular adenopathy. NEUROLOGICAL: Awake and alert. Motor and sensory grossly within normal limits. Follows commands. Cognitively sharp. Moves all extremities. PSYCHIATRIC: No obvious anxiety/depression. no apparent hallucinations or other psychotic thought process. Assessment & Plan Remarks Infecetd L heel wound, polimicrobial deep, but MRI not cw osteo cont vanco, add cont levaquine cont flagyl for anaerobic coverage Nelsy Leon MD December 21, 2017 18:41
[2017-12-21 20:00] VITALS: BP 162/102; PULSE 87; RESP 20; TEMP 97.4; O2SAT 93
[2017-12-22] VITALS: BP 173/105; PULSE 71; RESP 20; TEMP 97.7; O2SAT 97
[2017-12-22] MEDS: cloNIDine HCL 0.1 MG TAB PO PRN ×2 (00:02→16:19)
[2017-12-22] MEDS: metroNIDAZOLE 500 MG INJ 100 ML IV SCH ×3 (01:31→16:19)
[2017-12-22] MEDS: oxyCODONE/ACETAMINOPHEN 5 MG/325 MG TAB PO PRN ×6 (01:31→22:33)
[2017-12-22] MEDS: LORazepam 1 MG TAB PO PRN ×4 (03:30→22:32)
[2017-12-22] MEDS: VANCOMYCIN 1,500 MG/NS 500 ML IV SCH ×4 (05:32→16:18)
[2017-12-22 08:00] VITALS: BP 123/81; PULSE 81; RESP 17; TEMP 97.4; O2SAT 93
[2017-12-22] MEDS: METOPROLOL TARTRATE 50 MG TAB PO SCH ×2 (08:04→20:35)
[2017-12-22] MEDS: KETOROLAC TROMETHAMINE 30 MG/ML (IVP) VIAL IV PUSH PRN ×3 (08:04→23:32)
[2017-12-22] MEDS: HEPARIN SODIUM - SQ 10,000 UNITS/ML VIAL SQ SCH ×2 (08:04→20:36)
[2017-12-22] MEDS: DOCUSATE SODIUM 50 MG/SENNA 8.6 MG TAB PO SCH ×2 (08:05→20:35)
[2017-12-22] MEDS: SODIUM CHLORIDE 0.9% FLUSH 10 ML FLUSH IV FLUSH SCH ×2 (08:06→20:37)
[2017-12-22] MEDS: DOXAZOSIN MESYLATE 2 MG TAB PO SCH (08:06)
[2017-12-22] MEDS: LISINOPRIL 20 MG TAB PO SCH (08:06)
[2017-12-22] MEDS: THIAMINE HCL 100 MG TAB PO SCH (08:06)
[2017-12-22] MEDS: COLLAGENASE OINT 30 GM TUBE TOPICAL SCH (08:07)
[2017-12-22 12:00] VITALS: BP 127/84; PULSE 69; RESP 17; TEMP 97.1; O2SAT 94
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
[2017-12-22] MEDS: MORPHINE SULFATE 15 MG CONTROLLED RELEASE TAB PO SCH ×2 (12:28→20:36)
[2017-12-22 16:00] VITALS: BP 151/96; PULSE 74; RESP 17; TEMP 97.8; O2SAT 94
[2017-12-22 20:00] VITALS: BP 177/99; PULSE 72; RESP 20; TEMP 97.5; O2SAT 95
[2017-12-22] MEDS: LEVOFLOXACIN 750 MG PREMIX INJ 150 ML IV SCH (22:33)
[2017-12-23] VITALS: BP 135/99; PULSE 60; RESP 20; TEMP 98.4; O2SAT 97
[2017-12-23] MEDS: LORazepam 1 MG TAB PO PRN ×2 (02:36→07:03)
[2017-12-23] MEDS: metroNIDAZOLE 500 MG INJ 100 ML IV SCH ×3 (02:36→18:18)
[2017-12-23] MEDS: oxyCODONE/ACETAMINOPHEN 5 MG/325 MG TAB PO PRN ×6 (02:44→23:12)
[2017-12-23] MEDS: KETOROLAC TROMETHAMINE 30 MG/ML (IVP) VIAL IV PUSH PRN ×3 (05:31→20:10)
[2017-12-23] MEDS: VANCOMYCIN 1,500 MG/NS 500 ML IV SCH ×4 (05:32→18:18)
[2017-12-23 07:48] LABS: CREATININE 0.75 MG/DL (0.60-1.30)
[2017-12-23 08:00] VITALS: BP 152/81; PULSE 75; RESP 17; TEMP 98.1; O2SAT 95
[2017-12-23] MEDS: LISINOPRIL 20 MG TAB PO SCH (09:21)
[2017-12-23] MEDS: THIAMINE HCL 100 MG TAB PO SCH (09:21)
[2017-12-23] MEDS: METOPROLOL TARTRATE 50 MG TAB PO SCH ×2 (09:21→20:09)
[2017-12-23] MEDS: MORPHINE SULFATE 15 MG CONTROLLED RELEASE TAB PO SCH ×2 (09:22→21:09)
[2017-12-23] MEDS: DOCUSATE SODIUM 50 MG/SENNA 8.6 MG TAB PO SCH ×2 (09:22→20:09)
[2017-12-23] MEDS: DOXAZOSIN MESYLATE 2 MG TAB PO SCH (09:22)
[2017-12-23] MEDS: HEPARIN SODIUM - SQ 10,000 UNITS/ML VIAL SQ SCH ×2 (09:22→20:09)
[2017-12-23] MEDS: SODIUM CHLORIDE 0.9% FLUSH 10 ML FLUSH IV FLUSH SCH ×2 (09:22→20:10)
[2017-12-23] MEDS: COLLAGENASE OINT 30 GM TUBE TOPICAL SCH (09:23)
[2017-12-23] MEDS: LACTULOSE SYRUP 20 GM/30 ML CUP PO PRN (09:28)
[2017-12-23 12:00] VITALS: BP 161/86; PULSE 68; RESP 17; TEMP 98.3; O2SAT 96
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
[2017-12-23 16:00] VITALS: BP 145/65; PULSE 77; RESP 17; TEMP 97.7; O2SAT 94
[2017-12-23 20:00] VITALS: BP 196/102; PULSE 84; RESP 20; TEMP 98.2; O2SAT 96
[2017-12-23] MEDS: cloNIDine HCL 0.1 MG TAB PO PRN (20:09)
[2017-12-23] MEDS: LEVOFLOXACIN 750 MG PREMIX INJ 150 ML IV SCH (23:11)
[2017-12-23] MEDS ORDERED: ZOLPIDEM TARTRATE 5 MG TAB PO ONE (23:45)
[2017-12-24] VITALS: BP 121/82; PULSE 64; RESP 20; TEMP 97.9; O2SAT 97
[2017-12-24] MEDS: metroNIDAZOLE 500 MG INJ 100 ML IV SCH ×3 (02:08→18:32)
[2017-12-24] MEDS: KETOROLAC TROMETHAMINE 30 MG/ML (IVP) VIAL IV PUSH PRN ×3 (02:09→18:30)
[2017-12-24] MEDS: oxyCODONE/ACETAMINOPHEN 5 MG/325 MG TAB PO PRN ×6 (03:08→23:53)
[2017-12-24] MEDS: VANCOMYCIN 1,500 MG/NS 500 ML IV SCH ×4 (06:28→19:46)
[2017-12-24 08:00] VITALS: BP 192/108; PULSE 73; RESP 20; TEMP 97.8; O2SAT 97
[2017-12-24] MEDS: SODIUM CHLORIDE 0.9% FLUSH 10 ML FLUSH IV FLUSH SCH ×2 (08:20→19:52)
[2017-12-24] MEDS: METOPROLOL TARTRATE 50 MG TAB PO SCH ×2 (08:20→19:47)
[2017-12-24] MEDS: LISINOPRIL 20 MG TAB PO SCH (08:20)
[2017-12-24] MEDS: DOXAZOSIN MESYLATE 2 MG TAB PO SCH (08:20)
[2017-12-24] MEDS: MORPHINE SULFATE 15 MG CONTROLLED RELEASE TAB PO SCH ×3 (08:20→22:22)
[2017-12-24] MEDS: HEPARIN SODIUM - SQ 10,000 UNITS/ML VIAL SQ SCH ×2 (08:21→19:50)
[2017-12-24] MEDS: DOCUSATE SODIUM 50 MG/SENNA 8.6 MG TAB PO SCH ×2 (08:22→19:47)
[2017-12-24] MEDS: COLLAGENASE OINT 30 GM TUBE TOPICAL SCH (08:23)
[2017-12-24 11:06] LABS: AUTOMATED NEUTROPHIL # 4.1 TH/MM3 (1.8-7.7); BASOPHIL % 0.3 % (0.0-2.0); EOSINOPHIL # 0.4 TH/MM3 (0-0.4); EOSINOPHIL % 4.9 % (0.0-4.0); HEMATOCRIT 38.7 % (39.0-51.0); LYMPH % 22.3 % (9.0-44.0); LYMPHOCYTE # 1.7 TH/MM3 (1.0-4.8); MEAN CELL VOLUME 100.8 FL (80.0-100.0); MEAN CORPUSCULAR HEMOGLOBIN 33.9 PG (27.0-34.0); MEAN CORPUSCULAR HGB CONC 33.6 % (32.0-36.0); MONO % 17.5 % (0.0-8.0); MONOCYTE # 1.3 TH/MM3 (0-0.9); PLATELET COUNT 516 TH/MM3 (150-450); RED BLOOD COUNT 3.84 MIL/MM3 (4.50-5.90); RED CELL DISTRIBUTION WIDTH 17.7 % (11.6-17.2); WHITE BLOOD COUNT 7.6 TH/MM3 (4.0-11.0)
[2017-12-24 11:23] LABS: AST (GOT) 16 U/L (15-37); BICARBONATE 24.9 MEQ/L (21.0-32.0); BLOOD UREA NITROGEN 8 MG/DL (7-18); CALCIUM 8.5 MG/DL (8.5-10.1); CHLORIDE 107 MEQ/L (98-107); CREATININE 0.86 MG/DL (0.60-1.30); GLOMERULAR FILTRATION RATE 90 ML/MIN (>89); GLUCOSE,RANDOM 110 MG/DL (74-106); SODIUM (NA) 140 MEQ/L (136-145)
[2017-12-24 11:27] LABS: ALKALINE PHOSPHATASE 87 U/L (45-117); ALT (GPT) 13 U/L (12-78); TOTAL BILIRUBIN ADULT 0.2 MG/DL (0.2-1.0); TOTAL PROTEIN 6.5 GM/DL (6.4-8.2)
[2017-12-24 12:00] VITALS: BP 141/82; PULSE 65; RESP 18; TEMP 97.5; O2SAT 96
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
[2017-12-24 15:54] VITALS: BP 158/80
[2017-12-24 20:00] VITALS: BP 158/95; PULSE 74; RESP 18; TEMP 97.6; O2SAT 95
[2017-12-24] MEDS: LEVOFLOXACIN 750 MG PREMIX INJ 150 ML IV SCH (22:22)
[2017-12-25] VITALS: BP 164/100; PULSE 65; RESP 17; TEMP 97.9; O2SAT 97
[2017-12-25] MEDS ORDERED: ZOLPIDEM TARTRATE 5 MG TAB PO ONE
[2017-12-25] MEDS: cloNIDine HCL 0.1 MG TAB PO PRN (00:13)
[2017-12-25] MEDS: KETOROLAC TROMETHAMINE 30 MG/ML (IVP) VIAL IV PUSH PRN ×3 (01:25→14:12)
[2017-12-25] MEDS: metroNIDAZOLE 500 MG INJ 100 ML IV SCH ×3 (01:25→18:11)
[2017-12-25] MEDS: oxyCODONE/ACETAMINOPHEN 5 MG/325 MG TAB PO PRN ×5 (04:48→21:30)
[2017-12-25] MEDS: VANCOMYCIN 1,500 MG/NS 500 ML IV SCH ×4 (05:56→18:18)
[2017-12-25] MEDS: MORPHINE SULFATE 15 MG CONTROLLED RELEASE TAB PO SCH ×3 (05:57→22:44)
[2017-12-25 06:51] LABS: CREATININE 0.76 MG/DL (0.60-1.30)
[2017-12-25 07:41] VITALS: BP 135/91; PULSE 69; RESP 18; TEMP 97.4; O2SAT 97
[2017-12-25] MEDS: DOCUSATE SODIUM 50 MG/SENNA 8.6 MG TAB PO SCH ×2 (08:44→21:00)
[2017-12-25] MEDS: SODIUM CHLORIDE 0.9% FLUSH 10 ML FLUSH IV FLUSH SCH ×2 (08:44→21:29)
[2017-12-25] MEDS: METOPROLOL TARTRATE 50 MG TAB PO SCH ×2 (08:44→21:29)
[2017-12-25] MEDS: LISINOPRIL 20 MG TAB PO SCH (08:44)
[2017-12-25] MEDS: DOXAZOSIN MESYLATE 2 MG TAB PO SCH (08:45)
[2017-12-25] MEDS: HEPARIN SODIUM - SQ 10,000 UNITS/ML VIAL SQ SCH ×2 (08:45→21:00)
[2017-12-25] MEDS: COLLAGENASE OINT 30 GM TUBE TOPICAL SCH (08:46)
[2017-12-25 12:00] VITALS: BP 134/77; PULSE 62; RESP 16; TEMP 97.5; O2SAT 94
[2017-12-25 16:00] VITALS: BP 141/84; PULSE 67; RESP 18; TEMP 97.4; O2SAT 97
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
[2017-12-25 20:00] VITALS: BP 148/89; PULSE 65; RESP 18; TEMP 97.7; O2SAT 94
[2017-12-26] VITALS: BP 150/80; PULSE 62; RESP 18; TEMP 97.9; O2SAT 95
[2017-12-26] MEDS: LEVOFLOXACIN 750 MG PREMIX INJ 150 ML IV SCH (00:15)
[2017-12-26] MEDS: ZOLPIDEM TARTRATE 10 MG TAB PO PRN ×2 (00:15→23:43)
[2017-12-26] MEDS: oxyCODONE/ACETAMINOPHEN 5 MG/325 MG TAB PO PRN ×6 (01:12→21:18)
[2017-12-26] MEDS: metroNIDAZOLE 500 MG INJ 100 ML IV SCH ×3 (01:13→17:21)
[2017-12-26] MEDS: KETOROLAC TROMETHAMINE 30 MG/ML (IVP) VIAL IV PUSH PRN ×2 (03:57→10:34)
[2017-12-26] MEDS: MORPHINE SULFATE 15 MG CONTROLLED RELEASE TAB PO SCH ×3 (05:59→22:23)
[2017-12-26] MEDS: VANCOMYCIN 1,500 MG/NS 500 ML IV SCH ×4 (06:04→17:59)
[2017-12-26 08:00] VITALS: BP 184/93; PULSE 74; RESP 17; TEMP 97.6; O2SAT 96
[2017-12-26] MEDS: LISINOPRIL 20 MG TAB PO SCH (08:56)
[2017-12-26] MEDS: METOPROLOL TARTRATE 50 MG TAB PO SCH ×2 (08:57→21:15)
[2017-12-26] MEDS: DOCUSATE SODIUM 50 MG/SENNA 8.6 MG TAB PO SCH ×2 (08:57→21:00)
[2017-12-26] MEDS: HEPARIN SODIUM - SQ 10,000 UNITS/ML VIAL SQ SCH ×2 (08:57→21:00)
[2017-12-26] MEDS: SODIUM CHLORIDE 0.9% FLUSH 10 ML FLUSH IV FLUSH SCH ×2 (08:57→21:18)
[2017-12-26] MEDS: DOXAZOSIN MESYLATE 2 MG TAB PO SCH (08:57)
[2017-12-26] MEDS: COLLAGENASE OINT 30 GM TUBE TOPICAL SCH (08:58)
[2017-12-26 12:00] VITALS: BP 116/78; PULSE 60; RESP 16; TEMP 97.6; O2SAT 95
--- NOTE | 2017-12-26 15:58 | HHI.PR ---
Subjective Remarks Follow-up left heel wound. Patient continues to report pain in the left heel that radiates up his leg. Denies chest pain. Mild dyspnea. Reports cough productive of clear phlegm. Objective Vitals Vital Signs Date Time Temp Pulse Resp B/P (MAP) Pulse Ox O2 Delivery O2 Flow Rate FiO2 12/26/17 12:00 97.6 60 16 116/78 (91) 95 12/26/17 08:00 97.6 74 17 184/93 (123) 96 12/26/17 00:00 97.9 62 18 150/80 (103) 95 12/25/17 20:00 97.7 65 18 148/89 (108) 94 12/25/17 16:00 97.4 67 18 141/84 (103) 97 I/O 12/25/17 12/25/17 12/25/17 12/26/17 12/26/17 12/26/17 07:00 15:00 23:00 07:00 15:00 23:00 Intake Total 750 ml 720 ml 990 ml Output Total 600 ml Balance 750 ml 720 ml 390 ml Intake Oral 500 ml 720 ml 240 ml IV Total 250 ml 750 ml Output Urine Total 600 ml # Voids 5 5 # Bowel Movements 1 0 Result Diagram: 12/24/17 1045 12/25/17 0600 Imaging Last Impressions Foot MRI 12/16/17 0000 Signed Impressions: Service Date/Time: Saturday, December 16, 2017 15:43 - CONCLUSION: 1. Posterior heel ulceration. Minimal adjacent bony edema in the calcaneus likely reactive. No findings on the T1-weighted images to confirm osteomyelitis. No evidence of abscess. 2. Arthritic findings of the ankle, TMT joints, and MTP joints. 3. Surgical hardware in the distal tibia and fibula. Jame Sy MD Foot X-Ray 12/15/17 0000 Signed Impressions: Service Date/Time: Friday, December 15, 2017 22:15 - CONCLUSION: Soft tissue ulceration along the posterior aspect of the calcaneus. Plantar calcaneal spurring. Moderate degenerative changes involving the left first metatarsophalangeal joint. No acute fracture or dislocation. Christian Mendosa MD Ankle X-Ray 12/15/17 0000 Signed Impressions: Service Date/Time: Friday, December 15, 2017 22:18 - CONCLUSION: Focal ulceration involving the soft tissues along the posterior aspect of the calcaneus. Diffuse soft tissue swelling of the ankle. Plantar calcaneal spurring. No acute fracture or dislocation. Christian Mendosa MD Objective Remarks General: No acute distress. Heart: Regular rate and rhythm. No murmur. Lungs: Clear to auscultation bilaterally. No wheezes, rales, or rhonchi. Breathing is nonlabored. Abdomen: Soft, nontender, nondistended. Extremities: No right lower extremity edema. Left foot bandaged. 1+ left lower leg edema. Psych: Alert and oriented. Neuro: Normal speech. No focal deficits noted. Procedures None. Urinary Catheter: No Vascular Central Line Catheter: No A/P Problem List: (1) Foot ulcer, left ICD Code: L97.529 - Non-pressure chronic ulcer of other part of left foot with unspecified severity Status: Acute (2) Alcohol abuse ICD Code: F10.10 - Alcohol abuse, uncomplicated Status: Chronic Assessment and Plan 1. Left heel ulcer, infection: Appreciate podiatry, infectious disease recommendations. MRI of the foot shows no evidence of osteomyelitis. Culture shows polymicrobial infection. Continue vancomycin, Levaquin, Flagyl. Continue pain control. 2. Alcohol abuse: Presented with intoxication. CIOH protocol discontinued. 3. Hypertension: Clonidine as needed. Continue amlodipine, metoprolol, Cardura. 4. DVT prophylaxis: Heparin. Discharge Planning Pending infectious disease clearance. Patient is nonweightbearing and is homeless, making safe discharge more difficult. Problem Qualifiers (1) Foot ulcer, left: Qualified Codes: L97.529 - Non-pressure chronic ulcer of other part of left foot with unspecified severity Darius Barone MD December 26, 2017 15:58
[2017-12-26 16:00] VITALS: BP 139/85; PULSE 83; RESP 16; TEMP 97.4; O2SAT 90
--- NOTE | 2017-12-26 18:12 | HHI.IDPN ---
Subjective Subjective Remarks co R foot pain no fever Antibiotics levaquin flagyl vanco Allergies: Coded Allergies: Sulfa (Sulfonamide Antibiotics) (Verified Allergy, Intermediate, hives, 12/16/17) cephalexin (Verified Allergy, Intermediate, hives, 12/16/17) nitroglycerin (Verified Allergy, Intermediate, RASH, 12/16/17) penicillin G (Verified Allergy, Intermediate, hives, 12/16/17) Objective . Vital Signs Date Time Temp Pulse Resp B/P (MAP) Pulse Ox O2 Delivery O2 Flow Rate FiO2 12/26/17 16:00 97.4 83 16 139/85 (103) 90 12/26/17 12:00 97.6 60 16 116/78 (91) 95 12/26/17 08:00 97.6 74 17 184/93 (123) 96 12/26/17 00:00 97.9 62 18 150/80 (103) 95 12/25/17 20:00 97.7 65 18 148/89 (108) 94 . Laboratory Tests Test 12/25/17 06:00 Creatinine 0.76 MG/DL Estimat Glomerular Filtration Rate 103 ML/MIN Imaging L Last Impressions Foot MRI 12/16/17 0000 Signed Impressions: Service Date/Time: Saturday, December 16, 2017 15:43 - CONCLUSION: 1. Posterior heel ulceration. Minimal adjacent bony edema in the calcaneus likely reactive. No findings on the T1-weighted images to confirm osteomyelitis. No evidence of abscess. 2. Arthritic findings of the ankle, TMT joints, and MTP joints. 3. Surgical hardware in the distal tibia and fibula. Jame Sy MD Foot X-Ray 12/15/17 0000 Signed Impressions: Service Date/Time: Friday, December 15, 2017 22:15 - CONCLUSION: Soft tissue ulceration along the posterior aspect of the calcaneus. Plantar calcaneal spurring. Moderate degenerative changes involving the left first metatarsophalangeal joint. No acute fracture or dislocation. Christian Mendosa MD Ankle X-Ray 12/15/17 0000 Signed Impressions: Service Date/Time: Friday, December 15, 2017 22:18 - CONCLUSION: Focal ulceration involving the soft tissues along the posterior aspect of the calcaneus. Diffuse soft tissue swelling of the ankle. Plantar calcaneal spurring. No acute fracture or dislocation. Christian Mendosa MD Physical Exam CONSTITUTIONAL/GENERAL: This is an obese elderly patient, in no apparent distress. TUBES/LINES/DRAINS: SKIN: No jaundice, rashes, or lesions. . Skin temperature appropriate. Not diaphoretic. MUSCULOSKELETAL: . L heel wound improved, now more shallow No odor + edema of the heel also markedly improved Healed ankle incision NEUROLOGICAL: Awake and alert. Motor and sensory grossly within normal limits. Follows commands. Cognitively sharp. Moves all extremities. PSYCHIATRIC: No obvious anxiety/depression. no apparent hallucinations or other psychotic thought process. Assessment & Plan Remarks Infecetd L heel wound, polimicrobial deep, but MRI not cw osteo cont vanco, add cont levaquine cont flagyl for anaerobic coverage Pt can be treated with oral abx such as Levaquine + zyvox or levaquine + clindamycin Nelsy Leon MD December 26, 2017 18:12
[2017-12-26 20:00] VITALS: BP 143/81; PULSE 79; RESP 17; TEMP 98.7; O2SAT 95
[2017-12-26] MEDS: LEVOFLOXACIN 750 MG TAB PO SCH (21:16)
[2017-12-26] MEDS: LINEZOLID 600 MG TAB PO SCH (21:16)
[2017-12-26] MEDS: metroNIDAZOLE 500 MG TAB PO SCH (22:00)
[2017-12-27] VITALS: BP 145/82; PULSE 74; RESP 17; TEMP 98; O2SAT 97
[2017-12-27] MEDS: oxyCODONE/ACETAMINOPHEN 5 MG/325 MG TAB PO PRN ×6 (01:52→21:56)
[2017-12-27] MEDS: metroNIDAZOLE 500 MG TAB PO SCH ×3 (05:44→21:50)
[2017-12-27] MEDS ORDERED: PHARMACY ORDERED LAB ONE (05:45)
[2017-12-27] MEDS: MORPHINE SULFATE 15 MG CONTROLLED RELEASE TAB PO SCH ×4 (06:59→22:38)
[2017-12-27 08:00] VITALS: BP 185/98; PULSE 75; RESP 20; TEMP 97.5; O2SAT 94
[2017-12-27 09:00] LABS: CREATININE 0.91 MG/DL (0.60-1.30)
[2017-12-27] MEDS: DOCUSATE SODIUM 50 MG/SENNA 8.6 MG TAB PO SCH ×2 (09:00→21:00)
[2017-12-27 09:04] LABS: VANCOMYCIN TROUGH 18.3 MCG/ML (5.0-10.0)
[2017-12-27] MEDS: DOXAZOSIN MESYLATE 2 MG TAB PO SCH (09:54)
[2017-12-27] MEDS: LISINOPRIL 20 MG TAB PO SCH (09:54)
[2017-12-27] MEDS: METOPROLOL TARTRATE 50 MG TAB PO SCH ×2 (09:54→21:50)
[2017-12-27] MEDS: SODIUM CHLORIDE 0.9% FLUSH 10 ML FLUSH IV FLUSH SCH ×2 (09:55→21:52)
[2017-12-27] MEDS: HEPARIN SODIUM - SQ 10,000 UNITS/ML VIAL SQ SCH ×2 (09:55→21:00)
[2017-12-27] MEDS: LINEZOLID 600 MG TAB PO SCH ×2 (09:55→21:50)
[2017-12-27] MEDS: COLLAGENASE OINT 30 GM TUBE TOPICAL SCH (09:59)
[2017-12-27 12:00] VITALS: BP 168/88; PULSE 60; RESP 20; TEMP 97.2; O2SAT 96
--- NOTE | 2017-12-27 13:30 | HHI.PR ---
Subjective Remarks Follow up left heel wound. Patient still reporting pain that radiates up his entire leg. Denies chest pain, dyspnea. Feels tired, not sleeping well. Objective Vitals Vital Signs Date Time Temp Pulse Resp B/P (MAP) Pulse Ox O2 Delivery O2 Flow Rate FiO2 12/27/17 12:00 97.2 60 20 168/88 (114) 96 12/27/17 08:00 97.5 75 20 185/98 (127) 94 12/27/17 00:00 98.0 74 17 145/82 (103) 97 12/26/17 20:00 98.7 79 17 143/81 (101) 95 12/26/17 16:00 97.4 83 16 139/85 (103) 90 I/O 12/26/17 12/26/17 12/26/17 12/27/17 12/27/17 12/27/17 07:00 15:00 23:00 07:00 15:00 23:00 Intake Total 990 ml 480 ml 240 ml Output Total 600 ml 150 ml Balance 390 ml 480 ml 90 ml Intake Oral 240 ml 480 ml 240 ml IV Total 750 ml Output Urine Total 600 ml 150 ml # Voids 8 # Bowel Movements 0 1 Result Diagram: 12/24/17 1045 12/27/17 0723 Imaging Last Impressions Foot MRI 12/16/17 0000 Signed Impressions: Service Date/Time: Saturday, December 16, 2017 15:43 - CONCLUSION: 1. Posterior heel ulceration. Minimal adjacent bony edema in the calcaneus likely reactive. No findings on the T1-weighted images to confirm osteomyelitis. No evidence of abscess. 2. Arthritic findings of the ankle, TMT joints, and MTP joints. 3. Surgical hardware in the distal tibia and fibula. Jame Sy MD Foot X-Ray 12/15/17 0000 Signed Impressions: Service Date/Time: Friday, December 15, 2017 22:15 - CONCLUSION: Soft tissue ulceration along the posterior aspect of the calcaneus. Plantar calcaneal spurring. Moderate degenerative changes involving the left first metatarsophalangeal joint. No acute fracture or dislocation. Christian Mendosa MD Ankle X-Ray 12/15/17 0000 Signed Impressions: Service Date/Time: Friday, December 15, 2017 22:18 - CONCLUSION: Focal ulceration involving the soft tissues along the posterior aspect of the calcaneus. Diffuse soft tissue swelling of the ankle. Plantar calcaneal spurring. No acute fracture or dislocation. Christian Mendosa MD Objective Remarks General: No acute distress. Heart: Regular rate and rhythm. No murmur. Lungs: Clear to auscultation bilaterally. No wheezes, rales, or rhonchi. Breathing is nonlabored. Abdomen: Soft, nontender, nondistended. Extremities: No right lower extremity edema. Left foot bandaged. 1+ left lower leg edema. Psych: Alert and oriented. Neuro: Normal speech. No focal deficits noted. Procedures None. Urinary Catheter: No Vascular Central Line Catheter: No A/P Problem List: (1) Foot ulcer, left ICD Code: L97.529 - Non-pressure chronic ulcer of other part of left foot with unspecified severity Status: Acute (2) Alcohol abuse ICD Code: F10.10 - Alcohol abuse, uncomplicated Status: Chronic Assessment and Plan 1. Left heel ulcer, infection: Appreciate podiatry, infectious disease recommendations. MRI of the foot shows no evidence of osteomyelitis. Culture shows polymicrobial infection. Continue Zyvox, Levaquin, Flagyl. Continue pain control. 2. Alcohol abuse: Presented with intoxication. CIWA protocol discontinued. 3. Hypertension: Clonidine as needed. Continue amlodipine, metoprolol, Cardura. 4. DVT prophylaxis: Heparin. Discharge Planning Pending infectious disease clearance. Patient is nonweightbearing and is homeless, making safe discharge more difficult. Problem Qualifiers (1) Foot ulcer, left: Qualified Codes: L97.529 - Non-pressure chronic ulcer of other part of left foot with unspecified severity Darius Barone MD December 27, 2017 13:30
[2017-12-27] MEDS ORDERED: WHEEMIS3 (15:30)
[2017-12-27 16:00] VITALS: BP 149/96; PULSE 69; RESP 18; TEMP 97.7; O2SAT 96
[2017-12-27 20:00] VITALS: BP 151/92; PULSE 78; RESP 20; TEMP 97.8; O2SAT 96
[2017-12-27] MEDS: LEVOFLOXACIN 750 MG TAB PO SCH (21:50)
[2017-12-27] MEDS: ZOLPIDEM TARTRATE 10 MG TAB PO PRN (23:54)
[2017-12-28] VITALS: BP 174/97; PULSE 65; RESP 20; TEMP 97.4; O2SAT 95
[2017-12-28] MEDS: cloNIDine HCL 0.1 MG TAB PO PRN (00:02)
[2017-12-28] MEDS: oxyCODONE/ACETAMINOPHEN 5 MG/325 MG TAB PO PRN ×6 (03:06→23:28)
[2017-12-28] MEDS: metroNIDAZOLE 500 MG TAB PO SCH ×3 (05:55→21:49)
[2017-12-28] MEDS: MORPHINE SULFATE 15 MG CONTROLLED RELEASE TAB PO SCH ×3 (05:55→21:49)
[2017-12-28] MEDS: DOXAZOSIN MESYLATE 2 MG TAB PO SCH (07:48)
[2017-12-28] MEDS: LISINOPRIL 20 MG TAB PO SCH ×2 (07:49→21:48)
[2017-12-28] MEDS: LINEZOLID 600 MG TAB PO SCH ×2 (07:49→21:49)
[2017-12-28] MEDS: METOPROLOL TARTRATE 50 MG TAB PO SCH ×2 (07:49→21:48)
[2017-12-28] MEDS: SODIUM CHLORIDE 0.9% FLUSH 10 ML FLUSH IV FLUSH SCH ×2 (07:50→21:49)
[2017-12-28] MEDS: COLLAGENASE OINT 30 GM TUBE TOPICAL SCH (07:50)
[2017-12-28] MEDS: HEPARIN SODIUM - SQ 10,000 UNITS/ML VIAL SQ SCH ×2 (07:52→21:49)
[2017-12-28] MEDS: DOCUSATE SODIUM 50 MG/SENNA 8.6 MG TAB PO SCH ×2 (07:53→21:49)
[2017-12-28 08:00] VITALS: BP 152/84; PULSE 69; RESP 19; TEMP 97.8; O2SAT 95
--- NOTE | 2017-12-28 11:42 | HHI.PR ---
Subjective Remarks Follow-up foot wound. Patient continues to complain of "severe pain" in the foot that radiates up his leg. Also reporting some pain in the upper left abdomen, lower left rib cage. This pain is worse with coughing. Objective Vitals Vital Signs Date Time Temp Pulse Resp B/P (MAP) Pulse Ox O2 Delivery O2 Flow Rate FiO2 12/28/17 08:00 97.8 69 19 152/84 (106) 95 12/28/17 00:00 97.4 65 20 174/97 (122) 95 12/27/17 20:00 97.8 78 20 151/92 (111) 96 12/27/17 16:00 97.7 69 18 149/96 (113) 96 12/27/17 12:00 97.2 60 20 168/88 (114) 96 I/O 12/27/17 12/27/17 12/27/17 12/28/17 12/28/17 12/28/17 07:00 15:00 23:00 07:00 15:00 23:00 Intake Total 240 ml 940 ml Output Total 150 ml 900 ml 400 ml Balance 90 ml 40 ml -400 ml Intake Oral 240 ml 940 ml Output Urine Total 150 ml 900 ml 400 ml # Voids 3 Result Diagram: 12/24/17 1045 12/27/17 0723 Imaging Last Impressions Foot MRI 12/16/17 0000 Signed Impressions: Service Date/Time: Saturday, December 16, 2017 15:43 - CONCLUSION: 1. Posterior heel ulceration. Minimal adjacent bony edema in the calcaneus likely reactive. No findings on the T1-weighted images to confirm osteomyelitis. No evidence of abscess. 2. Arthritic findings of the ankle, TMT joints, and MTP joints. 3. Surgical hardware in the distal tibia and fibula. Jame Sy MD Foot X-Ray 12/15/17 0000 Signed Impressions: Service Date/Time: Friday, December 15, 2017 22:15 - CONCLUSION: Soft tissue ulceration along the posterior aspect of the calcaneus. Plantar calcaneal spurring. Moderate degenerative changes involving the left first metatarsophalangeal joint. No acute fracture or dislocation. Christian Mendosa MD Ankle X-Ray 12/15/17 0000 Signed Impressions: Service Date/Time: Friday, December 15, 2017 22:18 - CONCLUSION: Focal ulceration involving the soft tissues along the posterior aspect of the calcaneus. Diffuse soft tissue swelling of the ankle. Plantar calcaneal spurring. No acute fracture or dislocation. Christian Mendosa MD Objective Remarks General: No acute distress. Heart: Regular rate and rhythm. No murmur. Lungs: Clear to auscultation bilaterally. No wheezes, rales, or rhonchi. Breathing is nonlabored. Abdomen: Soft, nontender, nondistended. Extremities: No right lower extremity edema. Left foot bandaged. 1+ left lower leg edema. Psych: Alert and oriented. Neuro: Normal speech. No focal deficits noted. Procedures None. Urinary Catheter: No Vascular Central Line Catheter: No A/P Problem List: (1) Foot ulcer, left ICD Code: L97.529 - Non-pressure chronic ulcer of other part of left foot with unspecified severity Status: Acute (2) Alcohol abuse ICD Code: F10.10 - Alcohol abuse, uncomplicated Status: Chronic Assessment and Plan 12/28/17: No change. Still complaining of pain. Case management assisting with discharge plans. Will need antibiotic prescriptions filled at discharge. 1. Left heel ulcer, infection: Appreciate podiatry, infectious disease recommendations. MRI of the foot shows no evidence of osteomyelitis. Culture shows polymicrobial infection. Continue Zyvox, Levaquin, Flagyl. Continue pain control. 2. Alcohol abuse: Presented with intoxication. CIWA protocol discontinued. 3. Hypertension: Clonidine as needed. Continue amlodipine, metoprolol, Cardura. 4. DVT prophylaxis: Heparin. Discharge Planning Pending infectious disease clearance, safe discharge plan. Patient is nonweightbearing and is homeless, making safe discharge more difficult. He states that he has a house he can stay out with some friends, but they will not be back until Sunday. Also the house has steps, which he is unable to use due to the nonweightbearing status. Case management assisting with discharge planning. Problem Qualifiers (1) Foot ulcer, left: Qualified Codes: L97.529 - Non-pressure chronic ulcer of other part of left foot with unspecified severity Darius Barone MD December 28, 2017 11:42
[2017-12-28 12:00] VITALS: BP 134/66; PULSE 62; RESP 19; TEMP 97.5; O2SAT 93
[2017-12-28 15:22] VITALS: BP 151/76; PULSE 71; RESP 19; TEMP 98; O2SAT 96
[2017-12-28 20:00] VITALS: BP 134/90; PULSE 68; RESP 20; TEMP 98; O2SAT 98
[2017-12-28] MEDS: LEVOFLOXACIN 750 MG TAB PO SCH (21:49)
[2017-12-29] VITALS: BP 136/93; PULSE 64; RESP 20; TEMP 97.9; O2SAT 96
[2017-12-29] MEDS: ZOLPIDEM TARTRATE 10 MG TAB PO PRN (00:06)
[2017-12-29] MEDS: oxyCODONE/ACETAMINOPHEN 5 MG/325 MG TAB PO PRN ×5 (03:45→21:02)
[2017-12-29] MEDS: MORPHINE SULFATE 15 MG CONTROLLED RELEASE TAB PO SCH ×3 (06:03→21:02)
[2017-12-29] MEDS: metroNIDAZOLE 500 MG TAB PO SCH ×3 (06:03→21:00)
[2017-12-29 08:00] VITALS: BP 163/102; PULSE 79; RESP 17; TEMP 97.8; O2SAT 95
[2017-12-29] MEDS: METOPROLOL TARTRATE 50 MG TAB PO SCH ×2 (08:08→21:00)
[2017-12-29] MEDS: DOXAZOSIN MESYLATE 2 MG TAB PO SCH (08:08)
[2017-12-29] MEDS: LINEZOLID 600 MG TAB PO SCH ×2 (08:08→21:00)
[2017-12-29] MEDS: DOCUSATE SODIUM 50 MG/SENNA 8.6 MG TAB PO SCH ×2 (08:08→21:00)
[2017-12-29] MEDS: LISINOPRIL 20 MG TAB PO SCH ×2 (08:08→21:01)
[2017-12-29] MEDS: SODIUM CHLORIDE 0.9% FLUSH 10 ML FLUSH IV FLUSH SCH ×2 (08:08→21:00)
[2017-12-29] MEDS: COLLAGENASE OINT 30 GM TUBE TOPICAL SCH (08:09)
[2017-12-29] MEDS: HEPARIN SODIUM - SQ 10,000 UNITS/ML VIAL SQ SCH ×2 (08:09→21:01)
[2017-12-29 12:00] VITALS: BP 136/85; PULSE 64; RESP 16; TEMP 97.4; O2SAT 95
--- NOTE | 2017-12-29 14:56 | HHI.PR ---
Subjective Remarks Follow up foot wound/pain. No new complaints. Still having pain in the right foot that radiates up the leg. Objective Vitals Vital Signs Date Time Temp Pulse Resp B/P (MAP) Pulse Ox O2 Delivery O2 Flow Rate FiO2 12/29/17 12:00 97.4 64 16 136/85 (102) 95 12/29/17 08:00 97.8 79 17 163/102 (122) 95 12/29/17 00:00 97.9 64 20 136/93 (107) 96 12/28/17 20:00 98.0 68 20 134/90 (105) 98 12/28/17 15:22 98.0 71 19 151/76 (101) 96 I/O 12/28/17 12/28/17 12/28/17 12/29/17 12/29/17 12/29/17 07:00 15:00 23:00 07:00 15:00 23:00 Output Total 400 ml 600 ml Balance -400 ml -600 ml Output Urine Total 400 ml 600 ml # Voids 5 # Bowel Movements 1 Result Diagram: 12/27/17 0723 Imaging Last Impressions Foot MRI 12/16/17 0000 Signed Impressions: Service Date/Time: Saturday, December 16, 2017 15:43 - CONCLUSION: 1. Posterior heel ulceration. Minimal adjacent bony edema in the calcaneus likely reactive. No findings on the T1-weighted images to confirm osteomyelitis. No evidence of abscess. 2. Arthritic findings of the ankle, TMT joints, and MTP joints. 3. Surgical hardware in the distal tibia and fibula. Jame Sy MD Foot X-Ray 12/15/17 0000 Signed Impressions: Service Date/Time: Friday, December 15, 2017 22:15 - CONCLUSION: Soft tissue ulceration along the posterior aspect of the calcaneus. Plantar calcaneal spurring. Moderate degenerative changes involving the left first metatarsophalangeal joint. No acute fracture or dislocation. Christian Mendosa MD Ankle X-Ray 12/15/17 0000 Signed Impressions: Service Date/Time: Friday, December 15, 2017 22:18 - CONCLUSION: Focal ulceration involving the soft tissues along the posterior aspect of the calcaneus. Diffuse soft tissue swelling of the ankle. Plantar calcaneal spurring. No acute fracture or dislocation. Christian Mendosa MD Objective Remarks General: No acute distress. Heart: Regular rate and rhythm. No murmur. Lungs: Clear to auscultation bilaterally. No wheezes, rales, or rhonchi. Breathing is nonlabored. Abdomen: Soft, nontender, nondistended. Extremities: No right lower extremity edema. Left foot bandaged. 1+ left lower leg edema. Psych: Alert and oriented. Neuro: Normal speech. No focal deficits noted. Procedures None. Urinary Catheter: No Vascular Central Line Catheter: No A/P Problem List: (1) Foot ulcer, left ICD Code: L97.529 - Non-pressure chronic ulcer of other part of left foot with unspecified severity Status: Acute (2) Alcohol abuse ICD Code: F10.10 - Alcohol abuse, uncomplicated Status: Chronic Assessment and Plan 12/29/17: No change. Still complaining of pain. Case management assisting with discharge plans. Will need antibiotic prescriptions filled at discharge. 1. Left heel ulcer, infection: Appreciate podiatry, infectious disease recommendations. MRI of the foot shows no evidence of osteomyelitis. Culture shows polymicrobial infection. Continue Zyvox, Levaquin, Flagyl. Continue pain control. 2. Alcohol abuse: Presented with intoxication. CIWA protocol discontinued. 3. Hypertension: Clonidine as needed. Continue amlodipine, metoprolol, Cardura. 4. DVT prophylaxis: Heparin. Discharge Planning Pending infectious disease clearance, safe discharge plan. Patient is nonweightbearing and is homeless, making safe discharge more difficult. He states that he has a house he can stay out with some friends, but they will not be back until Sunday. Also the house has steps, which he is unable to use due to the nonweightbearing status. Case management assisting with discharge planning. Problem Qualifiers (1) Foot ulcer, left: Qualified Codes: L97.529 - Non-pressure chronic ulcer of other part of left foot with unspecified severity Darius Barone MD December 29, 2017 14:56
[2017-12-29 16:00] VITALS: BP 149/71; PULSE 64; RESP 16; TEMP 97.7; O2SAT 90
[2017-12-29 20:00] VITALS: BP 131/90; PULSE 85; RESP 17; TEMP 97.5; O2SAT 96
[2017-12-29] MEDS: LEVOFLOXACIN 750 MG TAB PO SCH (21:00)
[2017-12-30] VITALS: BP 169/82; PULSE 77; RESP 17; TEMP 97.5; O2SAT 95
[2017-12-30] MEDS: ZOLPIDEM TARTRATE 10 MG TAB PO PRN ×2 (00:11→21:51)
[2017-12-30] MEDS: oxyCODONE/ACETAMINOPHEN 5 MG/325 MG TAB PO PRN ×6 (01:04→21:51)
[2017-12-30] MEDS: metroNIDAZOLE 500 MG TAB PO SCH ×3 (05:27→21:49)
[2017-12-30] MEDS: MORPHINE SULFATE 15 MG CONTROLLED RELEASE TAB PO SCH ×3 (05:27→21:48)
[2017-12-30 08:00] VITALS: BP 155/93; PULSE 71; RESP 16; TEMP 97.4; O2SAT 94
[2017-12-30] MEDS: DOCUSATE SODIUM 50 MG/SENNA 8.6 MG TAB PO SCH ×2 (09:00→21:00)
[2017-12-30] MEDS: SODIUM CHLORIDE 0.9% FLUSH 10 ML FLUSH IV FLUSH SCH ×2 (09:00→21:48)
[2017-12-30] MEDS: COLLAGENASE OINT 30 GM TUBE TOPICAL SCH (09:00)
[2017-12-30] MEDS: HEPARIN SODIUM - SQ 10,000 UNITS/ML VIAL SQ SCH ×2 (09:00→21:49)
[2017-12-30] MEDS: LISINOPRIL 20 MG TAB PO SCH ×2 (09:46→21:49)
[2017-12-30] MEDS: DOXAZOSIN MESYLATE 2 MG TAB PO SCH (09:46)
[2017-12-30] MEDS: LINEZOLID 600 MG TAB PO SCH ×2 (09:46→21:00)
[2017-12-30] MEDS: METOPROLOL TARTRATE 50 MG TAB PO SCH ×2 (09:46→21:49)
[2017-12-30 12:00] VITALS: BP 146/89; PULSE 63; RESP 17; TEMP 97.5; O2SAT 95
--- NOTE | 2017-12-30 14:35 | HHI.PR ---
Subjective Remarks Follow up foot pain, wound. No change. Patient still having pain, worse first thing in the morning. No dyspnea, chest pain. Objective Vitals Vital Signs Date Time Temp Pulse Resp B/P (MAP) Pulse Ox O2 Delivery O2 Flow Rate FiO2 12/30/17 12:00 97.5 63 17 146/89 (108) 95 12/30/17 08:00 97.4 71 16 155/93 (113) 94 12/30/17 00:00 97.5 77 17 169/82 (111) 95 12/29/17 20:00 97.5 85 17 131/90 (104) 96 12/29/17 16:00 97.7 64 16 149/71 (97) 90 I/O 12/29/17 12/29/17 12/29/17 12/30/17 12/30/17 12/30/17 07:00 15:00 23:00 07:00 15:00 23:00 Intake Total 340 ml 240 ml Output Total 600 ml 400 ml 600 ml Balance -600 ml -60 ml -360 ml Intake Oral 240 ml 240 ml IV Total 100 ml Output Urine Total 600 ml 400 ml 600 ml # Voids 4 2 # Bowel Movements 1 Result Diagram: 12/27/17 0723 Imaging Last Impressions Foot MRI 12/16/17 0000 Signed Impressions: Service Date/Time: Saturday, December 16, 2017 15:43 - CONCLUSION: 1. Posterior heel ulceration. Minimal adjacent bony edema in the calcaneus likely reactive. No findings on the T1-weighted images to confirm osteomyelitis. No evidence of abscess. 2. Arthritic findings of the ankle, TMT joints, and MTP joints. 3. Surgical hardware in the distal tibia and fibula. Jame Sy MD Foot X-Ray 12/15/17 0000 Signed Impressions: Service Date/Time: Friday, December 15, 2017 22:15 - CONCLUSION: Soft tissue ulceration along the posterior aspect of the calcaneus. Plantar calcaneal spurring. Moderate degenerative changes involving the left first metatarsophalangeal joint. No acute fracture or dislocation. Christian Mendosa MD Ankle X-Ray 12/15/17 0000 Signed Impressions: Service Date/Time: Friday, December 15, 2017 22:18 - CONCLUSION: Focal ulceration involving the soft tissues along the posterior aspect of the calcaneus. Diffuse soft tissue swelling of the ankle. Plantar calcaneal spurring. No acute fracture or dislocation. Christian Mendosa MD Objective Remarks General: No acute distress. Heart: Regular rate and rhythm. No murmur. Lungs: Clear to auscultation bilaterally. No wheezes, rales, or rhonchi. Breathing is nonlabored. Abdomen: Soft, nontender, nondistended. Extremities: No right lower extremity edema. Left foot bandaged. 1+ left lower leg edema. Psych: Alert and oriented. Neuro: Normal speech. No focal deficits noted. Procedures None. Urinary Catheter: No Vascular Central Line Catheter: No A/P Problem List: (1) Foot ulcer, left ICD Code: L97.529 - Non-pressure chronic ulcer of other part of left foot with unspecified severity Status: Acute (2) Alcohol abuse ICD Code: F10.10 - Alcohol abuse, uncomplicated Status: Chronic Assessment and Plan 12/30/17: No change. Still complaining of pain. Case management assisting with discharge plans. Will need antibiotic prescriptions filled at discharge. 1. Left heel ulcer, infection: Appreciate podiatry, infectious disease recommendations. MRI of the foot shows no evidence of osteomyelitis. Culture shows polymicrobial infection. Continue Zyvox, Levaquin, Flagyl. Continue pain control. 2. Alcohol abuse: Presented with intoxication. CIWA protocol discontinued. 3. Hypertension: Clonidine as needed. Continue amlodipine, metoprolol, Cardura. 4. DVT prophylaxis: Heparin. Discharge Planning Pending infectious disease clearance, safe discharge plan. Patient is nonweightbearing and is homeless, making safe discharge more difficult. He states that he has a house he can stay out with some friends, but they will not be back until Sunday. Also the house has steps, which he is unable to use due to the nonweightbearing status. Case management assisting with discharge planning. Problem Qualifiers (1) Foot ulcer, left: Qualified Codes: L97.529 - Non-pressure chronic ulcer of other part of left foot with unspecified severity Darius Barone MD December 30, 2017 14:35
[2017-12-30 16:00] VITALS: BP 134/78; PULSE 63; RESP 16; TEMP 97.5; O2SAT 95
[2017-12-30] MEDS: LACTOBACILLUS ACIDOPHILUS TAB PO SCH (17:56)
[2017-12-30 20:00] VITALS: BP 142/79; PULSE 72; RESP 18; TEMP 97.7; O2SAT 97
[2017-12-30] MEDS: LEVOFLOXACIN 750 MG TAB PO SCH (21:49)
[2017-12-31] VITALS: BP 130/76; PULSE 76; RESP 18; TEMP 98; O2SAT 97
[2017-12-31] MEDS: oxyCODONE/ACETAMINOPHEN 5 MG/325 MG TAB PO PRN ×6 (02:02→21:01)
[2017-12-31] MEDS: metroNIDAZOLE 500 MG TAB PO SCH ×3 (05:34→20:56)
[2017-12-31] MEDS: MORPHINE SULFATE 15 MG CONTROLLED RELEASE TAB PO SCH ×3 (05:34→20:56)
[2017-12-31 08:00] VITALS: BP 155/84; PULSE 69; RESP 17; TEMP 97.7; O2SAT 94
[2017-12-31] MEDS: DOCUSATE SODIUM 50 MG/SENNA 8.6 MG TAB PO SCH ×2 (09:00→21:00)
[2017-12-31] MEDS: HEPARIN SODIUM - SQ 10,000 UNITS/ML VIAL SQ SCH ×2 (09:00→21:00)
[2017-12-31] MEDS: LACTOBACILLUS ACIDOPHILUS TAB PO SCH ×3 (09:29→17:36)
[2017-12-31] MEDS: METOPROLOL TARTRATE 50 MG TAB PO SCH ×2 (09:29→20:56)
[2017-12-31] MEDS: DOXAZOSIN MESYLATE 2 MG TAB PO SCH (09:29)
[2017-12-31] MEDS: LINEZOLID 600 MG TAB PO SCH ×2 (09:30→20:57)
[2017-12-31] MEDS: LISINOPRIL 20 MG TAB PO SCH ×2 (09:30→20:56)
[2017-12-31] MEDS: SODIUM CHLORIDE 0.9% FLUSH 10 ML FLUSH IV FLUSH SCH ×2 (09:33→21:00)
[2017-12-31] MEDS: COLLAGENASE OINT 30 GM TUBE TOPICAL SCH (09:35)
--- NOTE | 2017-12-31 11:09 | HHI.PR ---
Subjective Remarks Follow-up foot pain, wound. Patient had another episode of sharp pain in his right ankle today. No other complaints at this time. Denies chest pain or dyspnea. He has not been able to contact his friends who he plans to stay with. Objective Vitals Vital Signs Date Time Temp Pulse Resp B/P (MAP) Pulse Ox O2 Delivery O2 Flow Rate FiO2 12/31/17 08:00 97.7 69 17 155/84 (107) 94 12/31/17 00:00 98.0 76 18 130/76 (94) 97 12/30/17 20:00 97.7 72 18 142/79 (100) 97 12/30/17 16:00 97.5 63 16 134/78 (96) 95 12/30/17 12:00 97.5 63 17 146/89 (108) 95 I/O 12/30/17 12/30/17 12/30/17 12/31/17 12/31/17 12/31/17 07:00 15:00 23:00 07:00 15:00 23:00 Intake Total 240 ml 720 ml 240 ml Output Total 600 ml 1 ml 400 ml Balance -360 ml 719 ml -160 ml Intake Oral 240 ml 720 ml 240 ml Output Urine Total 600 ml 400 ml Stool Total 1 ml # Voids 2 4 2 Result Diagram: 12/27/17 0723 Imaging Last Impressions Foot MRI 12/16/17 0000 Signed Impressions: Service Date/Time: Saturday, December 16, 2017 15:43 - CONCLUSION: 1. Posterior heel ulceration. Minimal adjacent bony edema in the calcaneus likely reactive. No findings on the T1-weighted images to confirm osteomyelitis. No evidence of abscess. 2. Arthritic findings of the ankle, TMT joints, and MTP joints. 3. Surgical hardware in the distal tibia and fibula. Jame Sy MD Foot X-Ray 12/15/17 0000 Signed Impressions: Service Date/Time: Friday, December 15, 2017 22:15 - CONCLUSION: Soft tissue ulceration along the posterior aspect of the calcaneus. Plantar calcaneal spurring. Moderate degenerative changes involving the left first metatarsophalangeal joint. No acute fracture or dislocation. Christian Mendosa MD Ankle X-Ray 12/15/17 0000 Signed Impressions: Service Date/Time: Friday, December 15, 2017 22:18 - CONCLUSION: Focal ulceration involving the soft tissues along the posterior aspect of the calcaneus. Diffuse soft tissue swelling of the ankle. Plantar calcaneal spurring. No acute fracture or dislocation. Christian Mendosa MD Objective Remarks General: No acute distress. Heart: Regular rate and rhythm. No murmur. Lungs: Clear to auscultation bilaterally. No wheezes, rales, or rhonchi. Breathing is nonlabored. Abdomen: Soft, nontender, nondistended. Extremities: No right lower extremity edema. Left foot bandaged. 1+ left lower leg edema. Psych: Alert and oriented. Neuro: Normal speech. No focal deficits noted. Procedures None. Urinary Catheter: No Vascular Central Line Catheter: No A/P Problem List: (1) Foot ulcer, left ICD Code: L97.529 - Non-pressure chronic ulcer of other part of left foot with unspecified severity Status: Acute (2) Alcohol abuse ICD Code: F10.10 - Alcohol abuse, uncomplicated Status: Chronic Assessment and Plan 12/31/17: No change. Still complaining of pain. Case management assisting with discharge plans. Will need antibiotic prescriptions filled at discharge. 1. Left heel ulcer, infection: Appreciate podiatry, infectious disease recommendations. MRI of the foot shows no evidence of osteomyelitis. Culture shows polymicrobial infection. Continue Zyvox, Levaquin, Flagyl. Continue pain control. 2. Alcohol abuse: Presented with intoxication. CIWA protocol discontinued. 3. Hypertension: Clonidine as needed. Continue amlodipine, metoprolol, Cardura. 4. DVT prophylaxis: Heparin. Discharge Planning Pending safe discharge plan. Patient is nonweightbearing and is homeless, making safe discharge more difficult. He states that he has a house he can stay out with some friends, but he has not been able to get a hold of them yet. Also the house has steps, which he is unable to use due to the nonweightbearing status. Case management assisting with discharge planning. Problem Qualifiers (1) Foot ulcer, left: Qualified Codes: L97.529 - Non-pressure chronic ulcer of other part of left foot with unspecified severity Darius Barone MD December 31, 2017 11:09
[2017-12-31 12:00] VITALS: BP 107/64; PULSE 59; RESP 16; TEMP 97.9; O2SAT 100
[2017-12-31] MEDS ORDERED: OXYC1TAB63 PO (15:12)
[2017-12-31] MEDS ORDERED: AMLO10 PO (15:12)
[2017-12-31] MEDS ORDERED: METO-309 PO (15:12)
[2017-12-31] MEDS ORDERED: CARD2TAB PO (15:12)
[2017-12-31] MEDS ORDERED: LISI-515 PO (15:12)
[2017-12-31] MEDS ORDERED: MORP1TAB24 PO (15:12)
[2017-12-31] MEDS ORDERED: LACT PO (15:12)
[2017-12-31 16:00] VITALS: BP 126/80; PULSE 67; RESP 16; TEMP 98; O2SAT 96
[2017-12-31 20:00] VITALS: BP 151/87; PULSE 75; RESP 17; TEMP 98.6; O2SAT 96
[2017-12-31] MEDS: LEVOFLOXACIN 750 MG TAB PO SCH (20:56)
[2017-12-31] MEDS: ZOLPIDEM TARTRATE 10 MG TAB PO PRN (23:53)
[2018-01-01] VITALS: BP 145/56; PULSE 79; RESP 17; TEMP 98.9; O2SAT 99
[2018-01-01] MEDS: oxyCODONE/ACETAMINOPHEN 5 MG/325 MG TAB PO PRN ×6 (01:15→22:01)
[2018-01-01] MEDS: metroNIDAZOLE 500 MG TAB PO SCH ×3 (05:15→20:18)
[2018-01-01] MEDS: MORPHINE SULFATE 15 MG CONTROLLED RELEASE TAB PO SCH ×3 (05:16→20:18)
[2018-01-01 08:00] VITALS: BP 143/73; PULSE 76; RESP 20; TEMP 97.8; O2SAT 95
[2018-01-01] MEDS: DOCUSATE SODIUM 50 MG/SENNA 8.6 MG TAB PO SCH ×3 (09:00→20:22)
[2018-01-01] MEDS: SODIUM CHLORIDE 0.9% FLUSH 10 ML FLUSH IV FLUSH SCH ×2 (09:51→20:23)
[2018-01-01] MEDS: LACTOBACILLUS ACIDOPHILUS TAB PO SCH ×3 (09:52→18:00)
[2018-01-01] MEDS: DOXAZOSIN MESYLATE 2 MG TAB PO SCH (09:52)
[2018-01-01] MEDS: LISINOPRIL 20 MG TAB PO SCH ×2 (09:53→20:19)
[2018-01-01] MEDS: METOPROLOL TARTRATE 50 MG TAB PO SCH ×2 (09:53→20:18)
[2018-01-01] MEDS: HEPARIN SODIUM - SQ 10,000 UNITS/ML VIAL SQ SCH ×3 (09:54→20:22)
[2018-01-01] MEDS: LINEZOLID 600 MG TAB PO SCH ×2 (09:54→20:31)
[2018-01-01] MEDS: COLLAGENASE OINT 30 GM TUBE TOPICAL SCH (09:56)
--- NOTE | 2018-01-01 11:54 | HHI.PR ---
Subjective Remarks The patient was resting comfortably in bed. He said that he still has sharp stabbing pains in his left foot. He says he will have a place to move into on Sunday. He says he has been having diarrhea secondary to antibiotics. Objective Vitals Vital Signs Date Time Temp Pulse Resp B/P (MAP) Pulse Ox O2 Delivery O2 Flow Rate FiO2 01/01/18 08:00 97.8 76 20 143/73 (96) 95 01/01/18 06:48 20 01/01/18 06:47 18 01/01/18 00:00 98.9 79 17 145/56 (85) 99 12/31/17 20:00 98.6 75 17 151/87 (108) 96 12/31/17 16:00 98.0 67 16 126/80 (95) 96 12/31/17 12:00 97.9 59 16 107/64 (78) 100 I/O 12/31/17 12/31/17 12/31/17 01/01/18 01/01/18 01/01/18 07:00 15:00 23:00 07:00 15:00 23:00 Intake Total 240 ml 960 ml 240 ml Output Total 400 ml 1000 ml Balance -160 ml 960 ml -760 ml Intake Oral 240 ml 960 ml 240 ml Output Urine Total 400 ml 1000 ml # Voids 2 7 # Bowel Movements 0 0 Imaging Last Impressions Foot MRI 12/16/17 0000 Signed Impressions: Service Date/Time: Saturday, December 16, 2017 15:43 - CONCLUSION: 1. Posterior heel ulceration. Minimal adjacent bony edema in the calcaneus likely reactive. No findings on the T1-weighted images to confirm osteomyelitis. No evidence of abscess. 2. Arthritic findings of the ankle, TMT joints, and MTP joints. 3. Surgical hardware in the distal tibia and fibula. Jame Sy MD Foot X-Ray 12/15/17 0000 Signed Impressions: Service Date/Time: Friday, December 15, 2017 22:15 - CONCLUSION: Soft tissue ulceration along the posterior aspect of the calcaneus. Plantar calcaneal spurring. Moderate degenerative changes involving the left first metatarsophalangeal joint. No acute fracture or dislocation. Christian Mendosa MD Ankle X-Ray 12/15/17 0000 Signed Impressions: Service Date/Time: Friday, December 15, 2017 22:18 - CONCLUSION: Focal ulceration involving the soft tissues along the posterior aspect of the calcaneus. Diffuse soft tissue swelling of the ankle. Plantar calcaneal spurring. No acute fracture or dislocation. Christian Mendosa MD Objective Remarks General: No acute distress. HEENT: NC, AT. Heart: Regular rate and rhythm. No murmur. Lungs: Clear to auscultation bilaterally. No wheezes, rales, or rhonchi. Breathing is nonlabored. Abdomen: Soft, nontender, nondistended. Extremities: No right lower extremity edema. Left foot bandaged. 1+ left lower leg edema. Neuro: Normal speech. No focal deficits noted. Alert and oriented. Procedures None. A/P Problem List: (1) Foot ulcer, left ICD Code: L97.529 - Non-pressure chronic ulcer of other part of left foot with unspecified severity Status: Acute (2) Alcohol abuse ICD Code: F10.10 - Alcohol abuse, uncomplicated Status: Chronic Assessment and Plan 1. Left heel ulcer, infection: Appreciate podiatry, infectious disease recommendations. MRI of the foot shows no evidence of osteomyelitis. Culture shows polymicrobial infection. Continue Zyvox, Levaquin, Flagyl. Continue pain control. Wean off PO morphine starting 01/02. 2. Alcohol abuse: Presented with intoxication. [facility] protocol discontinued. 3. Hypertension: Clonidine as needed. Continue amlodipine, metoprolol, Cardura. 4. DVT prophylaxis: Heparin. Discharge Planning Pending safe discharge plan. Patient is nonweightbearing and is homeless, making safe discharge more difficult. He states that he has a house he can stay out with some friends, but he has not been able to get a hold of them yet. Also the house has steps, which he is unable to use due to the nonweightbearing status. Case management assisting with discharge planning. May have condo to move into on Sunday Problem Qualifiers (1) Foot ulcer, left: Qualified Codes: L97.529 - Non-pressure chronic ulcer of other part of left foot with unspecified severity Kenneth Woodall DO January 01, 2018 11:54
[2018-01-01 12:00] VITALS: BP 131/60; PULSE 62; RESP 19; TEMP 97.6; O2SAT 95
[2018-01-01 16:00] VITALS: BP 120/83; PULSE 74; RESP 20; TEMP 97.3; O2SAT 95
[2018-01-01 20:00] VITALS: BP 142/80; PULSE 73; RESP 18; TEMP 97.5; O2SAT 97
[2018-01-01] MEDS: LEVOFLOXACIN 750 MG TAB PO SCH (20:18)
--- NOTE | 2018-01-01 20:31 | HHI.IDPN ---
Subjective Subjective Remarks no c/o no fever Antibiotics levaquin flagyl vanco Allergies: Coded Allergies: Sulfa (Sulfonamide Antibiotics) (Verified Allergy, Intermediate, hives, 12/16/17) cephalexin (Verified Allergy, Intermediate, hives, 12/16/17) nitroglycerin (Verified Allergy, Intermediate, RASH, 12/16/17) penicillin G (Verified Allergy, Intermediate, hives, 12/16/17) Objective . Vital Signs Date Time Temp Pulse Resp B/P (MAP) Pulse Ox O2 Delivery O2 Flow Rate FiO2 01/01/18 16:00 97.3 74 20 120/83 (95) 95 01/01/18 12:00 97.6 62 19 131/60 (83) 95 01/01/18 08:00 97.8 76 20 143/73 (96) 95 01/01/18 06:48 20 01/01/18 06:47 18 01/01/18 00:00 98.9 79 17 145/56 (85) 99 01/01/18 01/01/18 01/02/18 15:00 23:00 07:00 Intake Total 1250 ml Balance 1250 ml Intake Oral 1250 ml # Voids 4 # Bowel Movements 1 Imaging L Last Impressions Foot MRI 12/16/17 0000 Signed Impressions: Service Date/Time: Saturday, December 16, 2017 15:43 - CONCLUSION: 1. Posterior heel ulceration. Minimal adjacent bony edema in the calcaneus likely reactive. No findings on the T1-weighted images to confirm osteomyelitis. No evidence of abscess. 2. Arthritic findings of the ankle, TMT joints, and MTP joints. 3. Surgical hardware in the distal tibia and fibula. Jame Sy MD Foot X-Ray 12/15/17 0000 Signed Impressions: Service Date/Time: Friday, December 15, 2017 22:15 - CONCLUSION: Soft tissue ulceration along the posterior aspect of the calcaneus. Plantar calcaneal spurring. Moderate degenerative changes involving the left first metatarsophalangeal joint. No acute fracture or dislocation. Christian Mendosa MD Ankle X-Ray 12/15/17 0000 Signed Impressions: Service Date/Time: Friday, December 15, 2017 22:18 - CONCLUSION: Focal ulceration involving the soft tissues along the posterior aspect of the calcaneus. Diffuse soft tissue swelling of the ankle. Plantar calcaneal spurring. No acute fracture or dislocation. Christian Mendosa MD Physical Exam CONSTITUTIONAL/GENERAL: This is an obese elderly patient, in no apparent distress. TUBES/LINES/DRAINS: SKIN: No jaundice, rashes, or lesions. . Skin temperature appropriate. Not diaphoretic. MUSCULOSKELETAL: . L heel wound improved, healing nicely No odor + edema of the heel also markedly improved Healed ankle incision NEUROLOGICAL: Awake and alert. Motor and sensory grossly within normal limits. Follows commands. Cognitively sharp. Moves all extremities. PSYCHIATRIC: No obvious anxiety/depression. no apparent hallucinations or other psychotic thought process. Assessment & Plan Remarks Infecetd L heel wound, polimicrobial deep, but MRI not cw osteo cont vanco, add cont levaquine dc flagyl Pt can be treated with oral abx: levaquine 750 daily + clindamycin 300 qid x 2 more weeks to complete 4 weeks OK to dc from ID standpoint Nelsy Leon MD January 01, 2018 20:31
[2018-01-01] MEDS: CLINDAMYCIN 150 MG CAP PO SCH (22:01)
[2018-01-01] MEDS: ZOLPIDEM TARTRATE 10 MG TAB PO PRN (23:18)
[2018-01-02] VITALS: BP 135/80; PULSE 63; RESP 18; TEMP 97.4; O2SAT 97
[2018-01-02] MEDS: oxyCODONE/ACETAMINOPHEN 5 MG/325 MG TAB PO PRN ×4 (01:43→13:59)
[2018-01-02] MEDS: CLINDAMYCIN 150 MG CAP PO SCH ×3 (03:40→13:59)
[2018-01-02] MEDS: MORPHINE SULFATE 15 MG CONTROLLED RELEASE TAB PO SCH (05:49)
[2018-01-02 08:00] VITALS: BP 149/66; PULSE 72; RESP 17; TEMP 97.4; O2SAT 97
[2018-01-02] MEDS: DOCUSATE SODIUM 50 MG/SENNA 8.6 MG TAB PO SCH (09:00)
[2018-01-02] MEDS: HEPARIN SODIUM - SQ 10,000 UNITS/ML VIAL SQ SCH (09:00)
[2018-01-02] MEDS: SODIUM CHLORIDE 0.9% FLUSH 10 ML FLUSH IV FLUSH SCH (10:04)
[2018-01-02] MEDS: DOXAZOSIN MESYLATE 2 MG TAB PO SCH (10:04)
[2018-01-02] MEDS: METOPROLOL TARTRATE 50 MG TAB PO SCH (10:04)
[2018-01-02] MEDS: LACTOBACILLUS ACIDOPHILUS TAB PO SCH ×2 (10:04→12:31)
[2018-01-02] MEDS: LISINOPRIL 20 MG TAB PO SCH (10:05)
[2018-01-02] MEDS: COLLAGENASE OINT 30 GM TUBE TOPICAL SCH (10:06)
[2018-01-02] MEDS ORDERED: LEVA750T9 PO (11:18)
[2018-01-02] MEDS ORDERED: CLIN150 PO (11:18)
--- NOTE | 2018-01-02 11:19 | HHI.PR ---
Subjective Remarks The patient said he randomly gets stabs of pain in his foot. He said it does not occur with ambulation. He says he might have a place to stay on Sunday. He says he will find out for sure tomorrow. He does not want to go to a hotel today. Discussed with case management. Objective Vitals Vital Signs Date Time Temp Pulse Resp B/P (MAP) Pulse Ox O2 Delivery O2 Flow Rate FiO2 01/02/18 08:00 97.4 72 17 149/66 (93) 97 01/02/18 00:00 97.4 63 18 135/80 (98) 97 01/01/18 20:00 97.5 73 18 142/80 (100) 97 01/01/18 16:00 97.3 74 20 120/83 (95) 95 01/01/18 12:00 97.6 62 19 131/60 (83) 95 I/O 01/01/18 01/01/18 01/01/18 01/02/18 01/02/18 01/02/18 07:00 15:00 23:00 07:00 15:00 23:00 Intake Total 240 ml 1250 ml 360 ml Output Total 1000 ml Balance -760 ml 1250 ml 360 ml Intake Oral 240 ml 1250 ml 360 ml Output Urine Total 1000 ml # Voids 4 2 # Bowel Movements 0 1 0 Imaging Last Impressions Foot MRI 12/16/17 0000 Signed Impressions: Service Date/Time: Saturday, December 16, 2017 15:43 - CONCLUSION: 1. Posterior heel ulceration. Minimal adjacent bony edema in the calcaneus likely reactive. No findings on the T1-weighted images to confirm osteomyelitis. No evidence of abscess. 2. Arthritic findings of the ankle, TMT joints, and MTP joints. 3. Surgical hardware in the distal tibia and fibula. Jame Sy MD Foot X-Ray 12/15/17 0000 Signed Impressions: Service Date/Time: Friday, December 15, 2017 22:15 - CONCLUSION: Soft tissue ulceration along the posterior aspect of the calcaneus. Plantar calcaneal spurring. Moderate degenerative changes involving the left first metatarsophalangeal joint. No acute fracture or dislocation. Christian Mendosa MD Ankle X-Ray 12/15/17 0000 Signed Impressions: Service Date/Time: Friday, December 15, 2017 22:18 - CONCLUSION: Focal ulceration involving the soft tissues along the posterior aspect of the calcaneus. Diffuse soft tissue swelling of the ankle. Plantar calcaneal spurring. No acute fracture or dislocation. Christian Mendosa MD Objective Remarks General: No acute distress. HEENT: NC, AT. Heart: Regular rate and rhythm. No murmur. Lungs: Clear to auscultation bilaterally. No wheezes, rales, or rhonchi. Breathing is nonlabored. Abdomen: Soft, nontender, nondistended. Extremities: No right lower extremity edema. Left foot bandaged. No tenderness to palpation. 1+ left lower leg edema. Neuro: Normal speech. No focal deficits noted. Alert and oriented. Procedures None. A/P Problem List: (1) Foot ulcer, left ICD Code: L97.529 - Non-pressure chronic ulcer of other part of left foot with unspecified severity Status: Acute (2) Alcohol abuse ICD Code: F10.10 - Alcohol abuse, uncomplicated Status: Chronic Assessment and Plan 1. Left heel ulcer, infection: Appreciate podiatry, infectious disease recommendations. MRI of the foot shows no evidence of osteomyelitis. Culture shows polymicrobial infection. Zyvox, Levaquin and Flagyl changed to clindamycin. Continue pain control. Wean off PO morphine starting 01/02. 2. Alcohol abuse: Presented with intoxication. [facility] protocol discontinued. 3. Hypertension: Clonidine as needed. Continue amlodipine, metoprolol, Cardura. 4. DVT prophylaxis: Heparin. Discharge Planning Pending safe discharge plan. Patient is nonweightbearing and is homeless, making safe discharge more difficult. He states that he has a house he can stay out with some friends, but he has not been able to get a hold of them yet. Also the house has steps, which he is unable to use due to the nonweightbearing status. Case management assisting with discharge planning. May have condo to move into on Sunday Problem Qualifiers (1) Foot ulcer, left: Qualified Codes: L97.529 - Non-pressure chronic ulcer of other part of left foot with unspecified severity Kenneth Woodall DO January 02, 2018 11:19
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
[2018-01-02] MEDS ORDERED: COLL30T TOPICAL (11:26)
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
[2018-01-02 12:00] VITALS: BP_SYST 116; BP_SYST 184; BP_DIAS 58; BP_DIAS 95; PULSE 78; PULSE 99; RESP 17; RESP 19; TEMP 97.3; TEMP 98.3; O2SAT 93; O2SAT 98
[2018-01-02] MEDS: cloNIDine HCL 0.1 MG TAB PO PRN (12:31)
== END 2018-01-02 15:51 | disposition home or self-care (01) | DRG 572 ==
LOC: NEPD 21:32 → NEDA 23:46 → NEPGCP 12-16 00:46 → OBSVTOIN 12-16 12:05 → N07A 12-16 19:36
PROVIDERS: ADMIT Hospitalist; ATTEND Hospitalist
PROC: 0JBR0ZZ Excision of Left Foot Subcutaneous Tissue and Fascia, Open Approach (ICD-10-PCS; principal; 2017-12-17)
DX: L97.529 Non-pressure chronic ulcer of other part of left foot with unspecified severity (principal); I10 Essential (primary) hypertension; B96.89 Other specified bacterial agents as the cause of diseases classified elsewhere; Z72.0 Tobacco use; F10.129 Alcohol abuse with intoxication, unspecified; Y90.8 Blood alcohol level of 240 mg/100 ml or more; Z59.0 Homelessness; E66.9 Obesity, unspecified; Z68.29 Body mass index [BMI] 29.0-29.9, adult; J44.9 Chronic obstructive pulmonary disease, unspecified
CPT/HCPCS: 73610; 73630; 73718; 76937; 80053; 80202; 80307; 82565; 82948; 83605; 83735; 84100; 85025; 85610; 85652; 85730; 86403; 87040; 87070; 87077; 87147; 87186; 87205; 93922; 96361; 96365; 96375; J1170; J1644; J1885; J1956; J2060; J2270; J3370; J7030; J7040; J7050; L3260

== ENCOUNTER 2018-01-05 16:54 | Inpatient (IN) | payer OTHER ==
[2018-01-05] VITALS (11 sets, daily range): BP systolic 100–140; BP diastolic 50–79; PULSE 70–155; RESP 16–20; TEMP 97.7–97.8; O2SAT 95–100
[~2018-01-05] VITALS: Ht 185.4 cm; Wt 94.1 kg
[~2018-01-05 16:54] MED LIST changes: -ACET325T15 PO; +AMLO10 PO; +CARD2TAB PO; +CLIN150 PO; +COLL30T TOPICAL; +LACT PO; +LEVA750T9 PO; +LISI-515 PO; +METO-309 PO; -METO25TA3 PO; +MORP1TAB24 PO; +OXYC1TAB63 PO; +WHEEMIS3
[2018-01-05] MEDS ORDERED: DIGOXIN 0.5 MG/2 ML VIAL IV PUSH ONE (17:15)
[2018-01-05] MEDS ORDERED: fentaNYL CITRATE 250 MCG/5 ML AMP IV PUSH ONE ×2 (17:15→17:45)
[2018-01-05] MEDS ORDERED: SODIUM CHLORIDE 0.9% FLUSH 10 ML FLUSH IVF PRN (17:15)
[2018-01-05] MEDS ORDERED: SODIUM CHLORID 0.9% 500 ML INJ 500 ML IV ONE (17:15)
[2018-01-05] MEDS ORDERED: ADENOSINE IV SOLN 3 MG/ML 2 ML VIAL IV PUSH ONE (17:15)
[2018-01-05] MEDS ORDERED: METOPROLOL TARTRATE 5 MG/5 ML VIAL IV PUSH ONE ×2 (17:30→17:45)
[2018-01-05 17:40] LABS: INTERNATIONAL NORMALIZED RATIO 1.1 RATIO; PROTHROMBIN TIME - PATIENT 11.4 SEC (9.8-11.6)
--- NOTE | 2018-01-05 17:41 | PD ---
HPI Chief Complaint: Chest Pain Time Seen by Provider: 16:56 Travel History International Travel<30 days: No Contact w/Intl Traveler<30days: No Traveled to known affect area: No History of Present Illness HPI The patient is a 62-year-old male who presents to the emergency department via EMS for chest pain. The patient developed chest pain approximately 2 PM earlier today, substernal, described as pressure and crushing , nonradiating. EMS noted the patient was in atrial fibrillation with RVR, initially had a blood pressure 100/60, however, the blood pressure dropped into the 70s systolic. The patient was administered aspirin prior to arrival by EMS , however, no rate limiting drugs were administered. The patient does have a history of atrial fibrillation but is not currently anticoagulated. The patient denies any nausea, vomiting, diarrhea, or abdominal pain. He does have a history of chronic left heel wound and was recently hospitalized for the chronic left heel wound. He was also hospitalized recently in a stress test that was negative at that time. The patient does complain of chest pain with mild shortness of breath as well as lightheadedness secondary to the atrial fibrillation with RVR. PFSH Past Medical History Hx Anticoagulant Therapy: Yes (ASA ) Arthritis: Yes Asthma: No Atrial Fibrillation: Yes Autoimmune Disease: No Blood Disorders: No Anxiety: Yes Depression: Yes Heart Rhythm Problems: Yes (BBB, A. Fib) Cancer: No Cardiac Catheterization: No Cardiovascular Problems: Yes High Cholesterol: No Chemotherapy: No Chest Pain: No Congestive Heart Failure: No COPD: Yes Cerebrovascular Accident: No Diabetes: No Diminished Hearing: No Endocrine: No Gastrointestinal Disorders: No Genitourinary: No Headaches: No Hypertension: Yes Immune Disorder: No Implanted Vascular Access Dvce: No Kidney Stones: Yes (reports passed stones) Musculoskeletal: Yes Neurologic: No Psychiatric: No Reproductive: No Respiratory: Yes Immunizations Current: Yes Migraines: No Radiation Therapy: No Seizures: Yes Shingles: Yes Sleep Apnea: No Ulcer: No Past Surgical History Abdominal Surgery: No Cardiac Surgery: No Coronary Artery Bypass Graft: No Ear Surgery: No Endocrine Surgery: No Eye Surgery: No Genitourinary Surgery: No Gynecologic Surgery: No Neurologic Surgery: No Oral Surgery: No Thoracic Surgery: No Tonsillectomy: Yes Other Surgery: Yes (Femur 1982, bilat ankles, bilt knees) Social History Alcohol Use: Yes (OCC) Tobacco Use: Yes (OCC CIGAR) Substance Use: Yes (denies) Allergies-Medications (Allergen,Severity, Reaction): Coded Allergies: Sulfa (Sulfonamide Antibiotics) (Verified Allergy, Intermediate, hives, 12/16/17) cephalexin (Verified Allergy, Intermediate, hives, 12/16/17) nitroglycerin (Verified Allergy, Intermediate, RASH, 12/16/17) penicillin G (Verified Allergy, Intermediate, hives, 12/16/17) Reported Meds & Prescriptions Reported Meds & Active Scripts Active Santyl (Collagenase) 250 Unit/Gram Oin 1 Applic TOPICAL DAILY Cleocin (Clindamycin HCl) 150 Mg Cap 300 Mg PO Q6H 13 Days Morphine ER (Morphine Sulfate) 15 Mg Tab 15 Mg PO Q12HR 3 Days Oxycodone-Acetaminophen 5-325 (Oxycodone HCl/Acetaminophen) 5 Mg-325 Mg Tablet 1 Tab PO Q4H PRN 3 Days Lisinopril 20 Mg Tab 20 Mg PO BID Norvasc (Amlodipine Besylate) 10 Mg Tab 10 Mg PO DAILY Lopressor (Metoprolol Tartrate) 50 Mg Tab 50 Mg PO Q12HR Review of Systems Except as stated in HPI: all other systems reviewed are Neg General / Constitutional: No: Fever Cardiovascular: Positive: Chest Pain or Discomfort, Palpitations, Irregular Rhythm, Tachycardia, No: Diaphoresis Respiratory: Positive: Shortness of Breath Gastrointestinal: No: Nausea, Vomiting, Abdominal Pain Musculoskeletal: Positive: Pain, No: Edema Neurologic: No: Dizziness Physical Exam Narrative GENERAL: Awake, alert, pleasant 62-year-old male who appears his stated age and is in no acute respiratory distress. SKIN: Focused skin assessment warm/dry. HEAD: Atraumatic. Normocephalic. EYES: No injection or drainage. ENT: No nasal bleeding or discharge. Mucous membranes pink and moist. NECK: Trachea midline. No JVD. CARDIOVASCULAR: Irregularly irregular, tachycardic with a heart rate in the 150s. RESPIRATORY: No accessory muscle use. Clear to auscultation. Breath sounds equal bilaterally. GASTROINTESTINAL: Abdomen soft, non-tender, nondistended. MUSCULOSKELETAL: No obvious deformities. No clubbing. No cyanosis. No edema. The patient has a chronic ulcerated lesion on the posterior left heel but there is no erythema or drainage. NEUROLOGICAL: Awake and alert. No obvious cranial nerve deficits. Motor grossly within normal limits. Normal speech. PSYCHIATRIC: Appropriate mood and affect; insight and judgment normal. Data Data Last Documented VS Vital Signs Date Time Temp Pulse Resp B/P (MAP) Pulse Ox O2 Delivery O2 Flow Rate FiO2 01/05/18 18:41 111 108/82 01/05/18 17:45 97.8 17 98 Nasal Cannula 2.00 Orders Orders Electrocardiogram (01/05/18 17:) B-Type Natriuretic Peptide (01/05/18 17:) Ckmb (Isoenzyme) Profile (01/05/18 17:01) Complete Blood Count With Diff (01/05/18 17:) Comprehensive Metabolic Panel (01/05/18:) Magnesium (Mg) (01/05/18:) Prothrombin Time / Inr (Pt) (01/05/18:) Act Partial Throm Time (Ptt) (01/05/18 17:) Troponin I (01/05/18 17:) Lipase (01/05/18 17:01) Chest, Single Ap (01/05/18 17:) Ecg Monitoring (01/05/18 17:01) Bilateral Bp Monitoring (01/05/18 17:01) Iv Access Insert/Monitor (01/05/18 17:) Oximetry (01/05/18 17:) Oxygen Administration (01/05/18 17:01) Sodium Chloride 0.9% Flush (Ns Flush) (01/05/18 17:15) Sodium Chlorid 0.9% 500 Ml Inj (Ns 500 M (01/05/18 17:15) Fentanyl Inj (Fentanyl Inj) (01/05/18 17:15) Digoxin Inj (Lanoxin Inj) (01/05/18 17:15) Adenosine Inj (Adenocard Inj) (01/05/18 17:15) Fentanyl Inj (Fentanyl Inj) (01/05/18 17:11) Metoprolol Tartrate Inj (Lopressor Inj) (01/05/18 17:30) Metoprolol Tartrate Inj (Lopressor Inj) (01/05/18 17:45) Esmolol Drip Inj Premix (Brevibloc Drip (01/05/18 17:45) Esmolol Bolus Inj (Brevibloc Bolus Inj) (01/05/18 17:45) Fentanyl Inj (Fentanyl Inj) (01/05/18 17:45) Fentanyl Inj (Fentanyl Inj) (01/05/18 17:49) CKMB (01/05/18 17:10) CKMB% (01/05/18 17:10) Sodium Chlor 0.9% 1000 Ml Inj (Ns 1000 M (01/05/18 18:15) Admit Order (Ed Use Only) (01/05/18 18:47) Labs Laboratory Tests Test 01/05/18 17:10 White Blood Count 17.9 TH/MM3 Red Blood Count 4.36 MIL/MM3 Hemoglobin 14.7 GM/DL Hematocrit 43.7 % Mean Corpuscular Volume 100.3 FL Mean Corpuscular Hemoglobin 33.7 PG Mean Corpuscular Hemoglobin Concent 33.6 % Red Cell Distribution Width 17.2 % Platelet Count 439 TH/MM3 Mean Platelet Volume 8.3 FL Neutrophils (%) (Auto) 64.1 % Lymphocytes (%) (Auto) 15.6 % Monocytes (%) (Auto) 17.6 % Eosinophils (%) (Auto) 1.6 % Basophils (%) (Auto) 1.1 % Neutrophils # (Auto) 11.4 TH/MM3 Lymphocytes # (Auto) 2.8 TH/MM3 Monocytes # (Auto) 3.2 TH/MM3 Eosinophils # (Auto) 0.3 TH/MM3 Basophils # (Auto) 0.2 TH/MM3 CBC Comment AUTO DIFF Differential Comment AUTO DIFF CONFIRMED Hematology Comments Prothrombin Time 11.4 SEC Prothromb Time International Ratio 1.1 RATIO Activated Partial Thromboplast Time 25.7 SEC Blood Urea Nitrogen 31 MG/DL Creatinine 3.01 MG/DL Random Glucose 89 MG/DL Total Protein 7.7 GM/DL Albumin 3.8 GM/DL Calcium Level 8.7 MG/DL Magnesium Level 2.0 MG/DL Alkaline Phosphatase 79 U/L Aspartate Amino Transf (AST/SGOT) 44 U/L Alanine Aminotransferase (ALT/SGPT) 15 U/L Total Bilirubin 0.6 MG/DL Sodium Level 135 MEQ/L Potassium Level 4.9 MEQ/L Chloride Level 104 MEQ/L Carbon Dioxide Level 19.5 MEQ/L Anion Gap 12 MEQ/L Estimat Glomerular Filtration Rate 21 ML/MIN Total Creatine Kinase 423 U/L Creatine Kinase MB 2.7 NG/ML Creatine Kinase MB % 0.6 % Troponin I LESS THAN 0.02 NG/ML B-Type Natriuretic Peptide 19 PG/ML Lipase 217 U/L [facility] Medical Decision Making Medical Screen Exam Complete: Yes Emergency Medical Condition: Yes Medical Record Reviewed: Yes Interpretation(s) Last Impressions Chest X-Ray 01/05/18 1701 Signed Impressions: CONCLUSION: No acute cardiopulmonary disease. Laboratory Tests Test 01/05/18 17:10 White Blood Count 17.9 TH/MM3 Red Blood Count 4.36 MIL/MM3 Hemoglobin 14.7 GM/DL Hematocrit 43.7 % Mean Corpuscular Volume 100.3 FL Mean Corpuscular Hemoglobin 33.7 PG Mean Corpuscular Hemoglobin Concent 33.6 % Red Cell Distribution Width 17.2 % Platelet Count 439 TH/MM3 Mean Platelet Volume 8.3 FL Neutrophils (%) (Auto) 64.1 % Lymphocytes (%) (Auto) 15.6 % Monocytes (%) (Auto) 17.6 % Eosinophils (%) (Auto) 1.6 % Basophils (%) (Auto) 1.1 % Neutrophils # (Auto) 11.4 TH/MM3 Lymphocytes # (Auto) 2.8 TH/MM3 Monocytes # (Auto) 3.2 TH/MM3 Eosinophils # (Auto) 0.3 TH/MM3 Basophils # (Auto) 0.2 TH/MM3 CBC Comment AUTO DIFF Hematology Comments Prothrombin Time 11.4 SEC Prothromb Time International Ratio 1.1 RATIO Activated Partial Thromboplast Time 25.7 SEC Blood Urea Nitrogen 31 MG/DL Creatinine 3.01 MG/DL Random Glucose 89 MG/DL Total Protein 7.7 GM/DL Albumin 3.8 GM/DL Calcium Level 8.7 MG/DL Magnesium Level 2.0 MG/DL Alkaline Phosphatase 79 U/L Aspartate Amino Transf (AST/SGOT) 44 U/L Alanine Aminotransferase (ALT/SGPT) 15 U/L Total Bilirubin 0.6 MG/DL Sodium Level 135 MEQ/L Potassium Level 4.9 MEQ/L Chloride Level 104 MEQ/L Carbon Dioxide Level 19.5 MEQ/L Anion Gap 12 MEQ/L Estimat Glomerular Filtration Rate 21 ML/MIN Total Creatine Kinase 423 U/L Creatine Kinase MB 2.7 NG/ML Creatine Kinase MB % 0.6 % Troponin I LESS THAN 0.02 NG/ML Lipase 217 U/L Differential Diagnosis Differential diagnosis includes atrial fibrillation with RVR, dehydration, sepsis, electrolyte abnormality, arrhythmia, acute coronary syndrome, pulmonary embolism, alcohol withdrawal. Narrative Course IV was established, labs are drawn and sent, and the patient was placed on cardiac telemetry monitoring and continuous pulse oximetry monitoring. EKG was ordered and interpreted. The patient was administered adenosine 12 mg intravenously, this did slow the rate down, he did appear to be underlying atrial fibrillation and atrial flutter with 2-1 block, therefore, patient was administered digoxin 0.5 mg intravenously. The patient's heart rate continued to be in the 140s-150s, therefore, was administered Lopressor 5 mg intravenously as his blood pressure was now 115/77. The patient's heart rate came down into the 130s, was administered a second dose of Lopressor and placed on an esmolol drip. The patient's heart rate did come down to around 100 110. The patient's creatinine was noted to be 3, creatinine several days ago prior to discharge was normal. The patient states he only had one beer to drink today and one beer yesterday, he states he has been drinking fluids. The patient appears to have acute kidney injury with dehydration and atrial fibrillation with RVR. Therefore, the patient will be admitted to the on-call medical service. The patient is comfortable with this plan of care and disposition. The patient's BNP was 19, therefore, the patient was administered a second liter bolus. Critical Care Narrative Aggregate critical care time was 40 minutes. Time to perform other separately billable procedures was not included in the critical care time. My time did not include minutes spent treating any other patients simultaneously or on activities that did not directly contribute to the patient's treatment. The services I provided to this patient were to treat and/or prevent clinically significant deterioration that could result in: Congestive heart failure, cardiomyopathy, dysrhythmia, pulmonary edema, . I provided critical care services requiring my management, as noted below: Chart data review, documentation time, medication orders and management, vital sign assessments/reviewing monitor data, ordering and reviewing lab tests, ordering and interpreting/reviewing x-rays and diagnostic studies, care of the patient and discussion of the patient with the admitting physicians. Physician Communication Physician Communication [facility] were paged for admission. I discussed the patient with Dr. Cristobal who agrees with admission. Diagnosis Primary Impression: Atrial fibrillation with RVR Additional Impression: Acute kidney injury Admitting Information Admitting Physician Requests: Admit Condition: Stable Domo Graves MD January 05, 2018 17:41
[2018-01-05 17:45] LABS: AUTOMATED NEUTROPHIL # 11.4 TH/MM3 (1.8-7.7); BASOPHIL # 0.2 TH/MM3 (0-0.2); BASOPHIL % 1.1 % (0.0-2.0); EOSINOPHIL # 0.3 TH/MM3 (0-0.4); EOSINOPHIL % 1.6 % (0.0-4.0); HEMATOCRIT 43.7 % (39.0-51.0); HEMOGLOBIN 14.7 GM/DL (13.0-17.0); LYMPH % 15.6 % (9.0-44.0); LYMPHOCYTE # 2.8 TH/MM3 (1.0-4.8); MEAN CELL VOLUME 100.3 FL (80.0-100.0); MEAN CORPUSCULAR HEMOGLOBIN 33.7 PG (27.0-34.0); MEAN CORPUSCULAR HGB CONC 33.6 % (32.0-36.0); MEAN PLATELET VOLUME 8.3 FL (7.0-11.0); MONO % 17.6 % (0.0-8.0); MONOCYTE # 3.2 TH/MM3 (0-0.9); NEUT % 64.1 % (16.0-70.0); PLATELET COUNT 439 TH/MM3 (150-450); RED BLOOD COUNT 4.36 MIL/MM3 (4.50-5.90); RED CELL DISTRIBUTION WIDTH 17.2 % (11.6-17.2); WHITE BLOOD COUNT 17.9 TH/MM3 (4.0-11.0)
[2018-01-05] MEDS ORDERED: ESMOLOL HCL 100 MG/10 ML VIAL IV PUSH PRN (17:45)
--- NOTE | 2018-01-05 17:46 | RADRPT ---
EXAM DATE: 01/05/2018 5:41 PM EDT AGE/SEX: 62 years / Male INDICATIONS: Mid-chest pain and shortness of breath. CLINICAL DATA: This is the patient's initial encounter. Patient reports that signs and symptoms have been present for 1 day and indicates a pain score of 7/10. MEDICAL/SURGICAL HISTORY: Chronic obstructive pulmonary disease. Congestive heart failure. EREN B. None. COMPARISON: Chest x-ray 12/06/2017 . FINDINGS: A single AP view of the chest demonstrates the lungs to be symmetrically aerated without evidence of mass, infiltrate or effusion. Stable linear scarring within the lateral left midlung. The cardiomedi astinal contours are unremarkable. Multiple old left-sided rib fractures again noted. CONCLUSION: No acute cardiopulmonary disease. Electronically signed by: Elmer Llamas MD 01/05/2018 5:45 PM EDT
[2018-01-05 17:55] LABS: ALT (GPT) 15 U/L (12-78)
[2018-01-05] MEDS: ESMOLOL DRIP INJ PREMIX 250 ML IV PRN ×3 (17:56→23:43)
[2018-01-05 18:00] LABS: ALBUMIN 3.8 GM/DL (3.4-5.0); ALKALINE PHOSPHATASE 79 U/L (45-117); AST (GOT) 44 U/L (15-37); BICARBONATE 19.5 MEQ/L (21.0-32.0); BLOOD UREA NITROGEN 31 MG/DL (7-18); CALCIUM 8.7 MG/DL (8.5-10.1); CHLORIDE 104 MEQ/L (98-107); CREATININE 3.01 MG/DL (0.60-1.30); GLOMERULAR FILTRATION RATE 21 ML/MIN (>89); GLUCOSE,RANDOM 89 MG/DL (74-106); SODIUM (NA) 135 MEQ/L (136-145); TOTAL BILIRUBIN ADULT 0.6 MG/DL (0.2-1.0); TOTAL PROTEIN 7.7 GM/DL (6.4-8.2); TROPONIN I LESS THAN 0.02 NG/ML (0.02-0.05)
[2018-01-05] MEDS ORDERED: SODIUM CHLOR 0.9% 1000 ML INJ 1,000 ML IV ONE (18:15)
[2018-01-05] MEDS ORDERED: MAGNESIUM HYDROXIDE SUSP 30 ML CUP PO PRN (19:00)
[2018-01-05] MEDS ORDERED: MORPHINE SULFATE 2 MG/ML SYRINGE IV PUSH PRN (19:00)
[2018-01-05] MEDS ORDERED: LORazepam 2 MG TAB PO PRN (19:00)
[2018-01-05] MEDS ORDERED: NALOXONE HCL 0.4 MG/ML AMP IV PUSH PRN (19:00)
[2018-01-05] MEDS ORDERED: BISACODYL 10 MG SUPP RECTAL PRN (19:00)
[2018-01-05] MEDS ORDERED: SODIUM CHLORIDE 0.9% FLUSH 10 ML FLUSH IV FLUSH PRN ×2 (19:00)
[2018-01-05] MEDS ORDERED: FLUMAZENIL 0.5 MG/5 ML VIAL IV PUSH PRN (19:00)
[2018-01-05] MEDS ORDERED: HALOPERIDOL LACTATE 5 MG/ML AMP IM PRN (19:00)
[2018-01-05] MEDS ORDERED: METOCLOPRAMIDE HCL 10 MG/2 ML VIAL IV PUSH PRN (19:00)
[2018-01-05] MEDS ORDERED: LORazepam 2 MG/ML VIAL IV PUSH PRN ×3 (19:00)
[2018-01-05] MEDS ORDERED: ACETAMINOPHEN 325 MG TAB PO PRN (19:00)
[2018-01-05] MEDS ORDERED: SENNOSIDES 8.6 MG TAB PO PRN (19:00)
--- NOTE | 2018-01-05 19:08 | HHI.HP ---
[facility] No Primary Care Physician Admission Diagnosis Atrial fibrillation with RVR, acute kidney injury, dehydration Diagnoses: (1) Chest pain Diagnosis: Principal (2) Atrial fibrillation with RVR Diagnosis: Principal (3) KIMO (acute kidney injury) Diagnosis: Principal (4) Leukocytosis Diagnosis: Principal (5) Alcohol abuse Diagnosis: Principal Travel History International Travel<30 Days: No Contact w/Intl Traveler <30 Da: No Traveled to Known Affected Are: No History of Present Illness This is a 62-year-old male with a PMH of Anxiety, Depression, A. fib, HTN, Chronic Left Heel Ulcer, Tobacco Abuse and Alcohol Abuse who was brought to the ER by EMS for c/o chest pain. Pt states chest pain substernal, severe, 8/10, non-radiating, worse w/ deep breath. Upon EMS arrival, pt noted to be in A-fib w/ RVR, HR 140's, BP 70's systolic. Recent admit 12/16-01/02/18 for Left Heel Ulcer s/p eval by Podiatry, d/c'd home on Clinda 300mg PO q6h and Levaquin 750mg qd. Denies fever, chills, SOB or cough. Stress Test 12/06/17 w/ no evidence of ischemia, low risk category. On arrival, BP 100/70, HR 155, O2 sat 97% on RA, Afebrile. S/p Lopressor IV x2 doses and started on Esmolol gtt. HR currently 100-110's. Denies chest pain at this time. Trop 0.02. Creatinine 3.01, previously 0.91 on 12/27/17. WBC 17. CXR w/ no acute findings. Heel ulcer w/ no erythema/drainage. Review of Systems Except as stated in HPI: all other systems reviewed are Neg ROS: 14 point review of systems otherwise negative. Past Family Social History Past Medical History PMH: Anxiety, Depression, A. fib, HTN, Chronic Left Heel Ulcer, Tobacco Abuse and Alcohol Abuse Past Surgical History PAST SURGICAL HISTORY: Tonsillectomy, Bilateral Ankle Surgery, Bilateral Knee Surgery, Femur Surgery Allergies: Coded Allergies: Sulfa (Sulfonamide Antibiotics) (Verified Allergy, Intermediate, hives, 12/16/17) cephalexin (Verified Allergy, Intermediate, hives, 12/16/17) nitroglycerin (Verified Allergy, Intermediate, RASH, 12/16/17) penicillin G (Verified Allergy, Intermediate, hives, 12/16/17) Family History PAST FAMILY HISTORY: Reviewed. No h/o DM or CAD Social History PAST SOCIAL HISTORY: Positive for alcohol and tobacco. Denies drug use. Physical Exam Vital Signs Vital Signs Date Time Temp Pulse Resp B/P (MAP) Pulse Ox O2 Delivery O2 Flow Rate FiO2 01/05/18 18:58 111 108/82 01/05/18 18:45 17 01/05/18 18:41 111 108/82 01/05/18 18:23 114 118/73 01/05/18 18:14 18 01/05/18 18:09 128 132/59 01/05/18 17:45 97.8 124 17 128/73 (91) 98 Nasal Cannula 2.00 01/05/18 17:28 131 18 110/57 (74) 97 Nasal Cannula 2.00 01/05/18 17:22 137 20 140/79 (99) 100 Nasal Cannula 2.00 01/05/18 17:15 70 20 115/77 (90) 99 Nasal Cannula 2.00 01/05/18 17:15 148 20 117/77 (90) 98 Nasal Cannula 2.00 100/70 (80) 01/05/18 17:02 99 Nasal Cannula 2.00 01/05/18 17:02 20 99 Nasal Cannula 2.00 01/05/18 17:00 156 20 98 2.00 01/05/18 16:58 97.8 155 20 100/70 (80) 97 Physical Exam PE: GENERAL: Middle-aged white male in no acute distress, sitting up eating dinner. HEENT: PERRLA, EOMI. No scleral icterus or conjunctival pallor. No lid lag or facial droop. CARDIOVASCULAR: Irregularly irregular, and A. fib, HR 110's. No obvious murmurs to auscultation. No chest tenderness to palpation. RESPIRATORY: No obvious rhonchi or wheezing. Clear to auscultation. Breath sounds equal bilaterally. GASTROINTESTINAL: Abdomen soft, non-tender, nondistended. BS normal. MUSCULOSKELETAL: Extremities without clubbing, cyanosis, or edema. No obvious deformities. Chronic left heel ulcer, no erythema/drainage noted. NEUROLOGICAL: Awake, alert and oriented x4. No focal neurologic deficits. Moving both upper and lower extremities spontaneously. Laboratory Laboratory Tests Test 01/05/18 17:10 White Blood Count 17.9 Red Blood Count 4.36 Hemoglobin 14.7 Hematocrit 43.7 Mean Corpuscular Volume 100.3 Mean Corpuscular Hemoglobin 33.7 Mean Corpuscular Hemoglobin Concent 33.6 Red Cell Distribution Width 17.2 Platelet Count 439 Mean Platelet Volume 8.3 Neutrophils (%) (Auto) 64.1 Lymphocytes (%) (Auto) 15.6 Monocytes (%) (Auto) 17.6 Eosinophils (%) (Auto) 1.6 Basophils (%) (Auto) 1.1 Neutrophils # (Auto) 11.4 Lymphocytes # (Auto) 2.8 Monocytes # (Auto) 3.2 Eosinophils # (Auto) 0.3 Basophils # (Auto) 0.2 CBC Comment AUTO DIFF Differential Comment AUTO DIFF CONFIRMED Hematology Comments Prothrombin Time 11.4 Prothromb Time International Ratio 1.1 Activated Partial Thromboplast Time 25.7 Blood Urea Nitrogen 31 Creatinine 3.01 Random Glucose 89 Total Protein 7.7 Albumin 3.8 Calcium Level 8.7 Magnesium Level 2.0 Alkaline Phosphatase 79 Aspartate Amino Transf (AST/SGOT) 44 Alanine Aminotransferase (ALT/SGPT) 15 Total Bilirubin 0.6 Sodium Level 135 Potassium Level 4.9 Chloride Level 104 Carbon Dioxide Level 19.5 Anion Gap 12 Estimat Glomerular Filtration Rate 21 Total Creatine Kinase 423 Creatine Kinase MB 2.7 Creatine Kinase MB % 0.6 Troponin I LESS THAN 0.02 B-Type Natriuretic Peptide 19 Lipase 217 Result Diagram: 01/05/18 1710 01/05/18 1710 Caprini VTE Risk Assessment Caprini VTE Risk Assessment: No/Low Risk (score <= 1) Caprini Risk Assessment Model Point Value = 1 Point Value = 2 Point Value = 3 Point Value = 5 Age 41-60 Minor surgery BMI > 25 kg/m2 Swollen legs Varicose veins or History of unexplained or recurrent spontaneous Oral contraceptives or hormone replacement Sepsis (< 1 month) Serious lung disease, including pneumonia (< 1 month) Abnormal pulmonary function Acute myocardial infarction Congestive heart failure (< 1 month) History of inflammatory bowel disease Medical patient at bed rest Age 61-74 Arthroscopic surgery Major open surgery (> 45 min) Laparoscopic surgery (> 45 min) Malignancy Confined to bed (> 72 hours) Immobilizing plaster cast Central venous access Age >= 75 History of VTE Family history of VTE Factor V Leiden Prothrombin [id number] Lupus anticoagulant Anticardiolipin antibodies Elevated serum homocysteine Heparin-induced thrombocytopenia Other congenital or acquired thrombophilia Stroke (< 1 month) Elective arthroplasty Hip, pelvis, or leg fracture Acute spinal cord injury (< 1 month) Prophylaxis Regimen Total Risk Factor Score Risk Level Prophylaxis Regimen 0-1 Low Early ambulation 2 Moderate Order ONE of the following: *Sequential Compression Device (SCD) *Heparin 5000 units SQ BID 3-4 Higher Order ONE of the following medications: *Heparin 5000 units SQ TID *Enoxaparin/Lovenox 40 mg SQ daily (WT < 150 kg, CrCl > 30 mL/min) *Enoxaparin/Lovenox 30 mg SQ daily (WT < 150 kg, CrCl > 10-29 mL/min) *Enoxaparin/Lovenox 30 mg SQ BID (WT < 150 kg, CrCl > 30 mL/min) AND/OR *Sequential Compression Device (SCD) 5 or more Highest Order ONE of the following medications: *Heparin 5000 units SQ TID (Preferred with Epidurals) *Enoxaparin/Lovenox 40 mg SQ daily (WT < 150 kg, CrCl > 30 mL/min) *Enoxaparin/Lovenox 30 mg SQ daily (WT < 150 kg, CrCl > 10-29 mL/min) *Enoxaparin/Lovenox 30 mg SQ BID (WT < 150 kg, CrCl > 30 mL/min) AND *Sequential Compression Device (SCD) Assessment and Plan Problem List: (1) Chest pain ICD Code: R07.9 - Chest pain, unspecified (2) Atrial fibrillation with RVR ICD Code: I48.91 - Unspecified atrial fibrillation (3) KIMO (acute kidney injury) ICD Code: N17.9 - Acute kidney failure, unspecified (4) Leukocytosis ICD Code: D72.829 - Elevated white blood cell count, unspecified (5) Alcohol abuse ICD Code: F10.10 - Alcohol abuse, uncomplicated Status: Chronic Assessment and Plan A/P: 1. Chest Pain: reports acute onset of chest pain starting few hours prior to arrival, initial trop negative. Stress Test 12/06/17 negative for ischemia, low risk category. Check serial cardiac enzymes, telemetry, Morphine as needed, ALLERGY to NTG. 2. Afib w/ RVR: h/o Afib, HR 155 on arrival, s/p Lopressor IV x2, currently on Esmolol gtt, will admit to ICU, telemetry, continue Esmolol, wean as tolerated, resume home Metoprolol, questionable compliance w/ meds. Consult Cardiology for further evaluation as needed. Check cardiac enzymes as above. 3. KIMO: Creatinine 3.01, previously 0.91 on 12/27/17, check U/a and Urine Drug Screen. ? embolic event from A-fib, check Renal US for further eval, IVF for hydration, repeat labs in am, Nephrology Consult for further evaluation. 4. Leukocytosis: WBC 17, afebrile. CXR w/ no acute findings, images reviewed by me. Check U/a. Recent admit for left heel ulcer, no active drainage, continue Levaquin/Clinda antibiotics for heel infection, repeat labs in am. 5. Alcohol Abuse: Chronic. CIWA, Seizure Precautions, MVT/Thiamine/Folate replacement. 6. DVT Prophylaxis: Heparin sq 7. Social work for d/c planning as needed. 8. Case discussed w/ ER physician at length, labs/records/imaging reviewed by me. Physician Certification 2 Midnight Certification Type: Admission for Inpatient Services Order for Inpatient Services The services are ordered in accordance with Medicare regulations or non- Medicare payer requirements, as applicable. In the case of services not specified as inpatient-only, they are appropriately provided as inpatient services in accordance with the 2-midnight benchmark. Estimated LOS (days): 2 days is the estimated time the patient will need to remain in the hospital, assuming treatment plan goals are met and no additional complications. Post-Hospital Plan: Not yet determined Luz Maria Chawla MD January 05, 2018 19:08
[2018-01-05] MEDS: MORPHINE SULFATE 15 MG CONTROLLED RELEASE TAB PO SCH (20:26)
[2018-01-05] MEDS: SODIUM CHLORIDE 0.9% FLUSH 10 ML FLUSH IV FLUSH SCH (20:27)
[2018-01-05] MEDS: METOPROLOL TARTRATE 50 MG TAB PO SCH (20:27)
[2018-01-05] MEDS: THIAMINE HCL 100 MG TAB PO SCH (20:27)
[2018-01-05] MEDS: SODIUM CHLOR 0.9% 1000 ML INJ 1,000 ML IV SCH (20:37)
[2018-01-05] MEDS ORDERED: CHLORHEXIDINE GLUCONATE 2 % 1 PACK (2 CLOTHS) TOP PRN (20:45)
[2018-01-05] MEDS ORDERED: NURSING INFORMATION XX SCH (20:45)
[2018-01-05] MEDS: DOCUSATE SODIUM 50 MG/SENNA 8.6 MG TAB PO SCH (21:00)
[2018-01-05] MEDS ORDERED: SODIUM CHLORIDE 0.9% FLUSH 10 ML FLUSH IV FLUSH SCH (21:00)
[2018-01-05] MEDS: ACETAMINOPHEN/HYDROcodone 325 MG/5 MG TAB PO PRN (22:00)
[2018-01-05 22:23] LABS: BILIRUBIN, URINE NEG (NEG); BLOOD, URINE TRACE (NEG); GLUCOSE,URINE NEG (NEG); HYALINE CAST, URINE 18 /lpf (RARE); KETONE, URINE 10 mg/dL (NEG); MUCUS URINE FEW /lpf (OCC); NITRITE,URINE NEG (NEG); PH, URINE 5.5 (5.0-8.5); SQUAMOUS EPITHELIAL CELL URINE 1 /hpf (0-5); URINE COLOR YELLOW (YELLW/STRAW); URINE LEUKOCYTE ESTERASE NEG (NEG)
[2018-01-05 23:52] LABS: TROPONIN I 0.02 NG/ML (0.02-0.05)
[2018-01-05] MEDS: CLINDAMYCIN 150 MG CAP PO SCH (23:54)
[2018-01-06] VITALS (9 sets, daily range): BP systolic 115–140; BP diastolic 79–99; PULSE 85–111; RESP 16–22; TEMP 97.6–98.6; O2SAT 95–98
[2018-01-06] MEDS: ACETAMINOPHEN/HYDROcodone 325 MG/5 MG TAB PO PRN ×4 (02:39→16:51)
[2018-01-06] MEDS: ESMOLOL DRIP INJ PREMIX 250 ML IV PRN ×3 (03:53→12:17)
[2018-01-06] MEDS: CHLORHEXIDINE GLUCONATE 2 % 1 PACK (2 CLOTHS) TOP SCH (04:00)
[2018-01-06] MEDS: LEVOFLOXACIN 750 MG TAB PO SCH (05:21)
[2018-01-06] MEDS: CLINDAMYCIN 150 MG CAP PO SCH ×3 (05:21→20:31)
[2018-01-06] MEDS: SODIUM CHLOR 0.9% 1000 ML INJ 1,000 ML IV SCH ×2 (05:21→15:43)
[2018-01-06 05:47] LABS: AUTOMATED NEUTROPHIL # 7.8 TH/MM3 (1.8-7.7); BASOPHIL # 0.2 TH/MM3 (0-0.2); BASOPHIL % 1.4 % (0.0-2.0); EOSINOPHIL # 0.3 TH/MM3 (0-0.4); EOSINOPHIL % 2.3 % (0.0-4.0); HEMATOCRIT 39.5 % (39.0-51.0); HEMOGLOBIN 13.3 GM/DL (13.0-17.0); LYMPH % 21.8 % (9.0-44.0); LYMPHOCYTE # 2.9 TH/MM3 (1.0-4.8); MEAN CELL VOLUME 99.2 FL (80.0-100.0); MEAN CORPUSCULAR HEMOGLOBIN 33.5 PG (27.0-34.0); MEAN CORPUSCULAR HGB CONC 33.8 % (32.0-36.0); MEAN PLATELET VOLUME 7.9 FL (7.0-11.0); MONO % 16.3 % (0.0-8.0); MONOCYTE # 2.2 TH/MM3 (0-0.9); NEUT % 58.2 % (16.0-70.0); PLATELET COUNT 389 TH/MM3 (150-450); RED BLOOD COUNT 3.98 MIL/MM3 (4.50-5.90); RED CELL DISTRIBUTION WIDTH 17.5 % (11.6-17.2); WHITE BLOOD COUNT 13.4 TH/MM3 (4.0-11.0)
[2018-01-06 06:26] LABS: ALKALINE PHOSPHATASE 69 U/L (45-117); ALT (GPT) 12 U/L (12-78); AST (GOT) 15 U/L (15-37); BICARBONATE 21.6 MEQ/L (21.0-32.0); BLOOD UREA NITROGEN 26 MG/DL (7-18); CALCIUM 7.7 MG/DL (8.5-10.1); CHLORIDE 109 MEQ/L (98-107); CREATININE 1.38 MG/DL (0.60-1.30); GLOMERULAR FILTRATION RATE 52 ML/MIN (>89); GLUCOSE,RANDOM 82 MG/DL (74-106); SODIUM (NA) 140 MEQ/L (136-145); TOTAL BILIRUBIN ADULT 0.4 MG/DL (0.2-1.0); TOTAL PROTEIN 6.3 GM/DL (6.4-8.2); TROPONIN I 0.02 NG/ML (0.02-0.05)
[2018-01-06 07:53] LABS: ACANTHOCYTES OCC (NORMAL); HOWELL-JOLLY BODIES PRESENT (NONE SEEN)
[2018-01-06] MEDS: SODIUM CHLORIDE 0.9% FLUSH 10 ML FLUSH IV FLUSH SCH ×2 (09:00→21:00)
[2018-01-06] MEDS: MULTIVITAMINS/MINERALS THERAPEUTIC TAB PO SCH (09:31)
[2018-01-06] MEDS: FOLIC ACID 1 MG TAB PO SCH (09:31)
[2018-01-06] MEDS: METOPROLOL TARTRATE 50 MG TAB PO SCH ×3 (09:32→22:00)
[2018-01-06] MEDS: THIAMINE HCL 100 MG TAB PO SCH (09:32)
[2018-01-06] MEDS: MORPHINE SULFATE 15 MG CONTROLLED RELEASE TAB PO SCH ×2 (09:33→20:31)
[2018-01-06] MEDS: DOCUSATE SODIUM 50 MG/SENNA 8.6 MG TAB PO SCH ×2 (09:33→09:38)
[2018-01-06] MEDS: HEPARIN SODIUM - SQ 10,000 UNITS/ML VIAL SQ SCH ×4 (09:36→21:00)
[2018-01-06] MEDS ORDERED: LIDOCAINE VISCOUS 2% SOLN 15 ML UDC SWISH-SWAL ONE (10:00)
[2018-01-06] MEDS ORDERED: ALUMINUM/MAGNESIUM/SIMETH 30 ML CUP PO ONE (10:00)
--- NOTE | 2018-01-06 10:07 | HHI.PR ---
Subjective Remarks Nursing reports that the patient's heart rate is still shooting up to [id number]. Patient says his chest pain is just a little better since admission but it is still very bothersome to him. Denies any exerting factors. Describes it as a really strong painful squeeze. 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 Objective Vital Signs Date Time Temp Pulse Resp B/P (MAP) Pulse Ox O2 Delivery O2 Flow Rate FiO2 01/06/18 09:52 98 Nasal Cannula 2.00 01/06/18 08:10 100 118/89 01/06/18 03:53 96 126/82 01/06/18 03:14 101 01/06/18 03:14 98.0 96 16 126/82 (97) 95 01/05/18 23:43 98 95/59 01/05/18 23:15 100 01/05/18 23:15 97.7 93 16 104/70 (81) 95 01/05/18 21:50 98 Nasal Cannula 2.00 01/05/18 21:45 112 16 103/50 (67) 95 01/05/18 21:45 112 01/05/18 21:24 96 16 106/74 (85) 94 Nasal Cannula 2.00 01/05/18 20:40 115 16 100/75 (83) 96 Nasal Cannula 2.00 01/05/18 18:58 111 108/82 01/05/18 18:45 17 01/05/18 18:41 111 108/82 01/05/18 18:23 114 118/73 01/05/18 18:14 18 01/05/18 18:09 128 132/59 01/05/18 17:45 97.8 124 17 128/73 (91) 98 Nasal Cannula 2.00 01/05/18 17:28 131 18 110/57 (74) 97 Nasal Cannula 2.00 01/05/18 17:22 137 20 140/79 (99) 100 Nasal Cannula 2.00 01/05/18 17:15 70 20 115/77 (90) 99 Nasal Cannula 2.00 01/05/18 17:15 148 20 117/77 (90) 98 Nasal Cannula 2.00 100/70 (80) 01/05/18 17:02 99 Nasal Cannula 2.00 01/05/18 17:02 20 99 Nasal Cannula 2.00 01/05/18 17:00 156 20 98 2.00 01/05/18 16:58 97.8 155 20 100/70 (80) 97 I/O 01/05/18 01/05/18 01/05/18 01/06/18 01/06/18 01/06/18 07:00 15:00 23:00 07:00 15:00 23:00 Intake Total 1500 ml 480 ml Output Total 600 ml Balance 1500 ml -120 ml Intake Oral 480 ml IV Total 1500 ml Output Urine Total 600 ml Result Diagram: 01/06/18 0537 01/06/18 0537 Objective Remarks Heart sounds indicate a irregular rhythm, slightly tachycardic rate Unlabored breathing, lungs are clear bilaterally A/P Assessment and Plan Chest Pain: Still having chest pain since admission, troponins are negative, had negative stress test 1 month ago. Allergy to nitro. Will defer to cardiology for further workup if warranted. Will administer Maalox and viscous lidocaine in case this is GERD. Addendum: still intractable despite maalox and lidocaine, starting protonix and consulting GI for EGD. I independently reviewed the repeat EKGs that were performed that were not uploaded into [employer], no ischemic findings noted - only improving afib rate w/ irregular rhythm. clear for d/c home from cardiology standpoint if weaned off of esmolol. Also ordering CT angio given tachyarrhythmia w/ unrelieved chest pain. Afib w/ RVR: successfully weaned off of esmolol drip once started on oral cardizem. With HR jumping to 130s w/ transferring and standing, i will increase Lopressor from 50 bid to 70 mg tid for now. AK I was likely secondary to A. fib with RVR as well as drinking alcohol, much improved with rate control and IV fluids. Canceling nephrology consult and renal ultrasound. Leukocytosis: improving, 2/2 stress induced DFU - continue home abx regimen Alcohol Abuse: Chronic. CIWA, Seizure Precautions, MVT/Thiamine/Folate replacement. Starting librium taper Aime Johnston MD January 06, 2018 10:07
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
[2018-01-06] MEDS: FLECAINIDE ACETATE 100 MG TAB PO SCH ×2 (12:16→20:30)
--- NOTE | 2018-01-06 13:04 | EKG ---
Date Performed: 01/05/2018 Time Performed: 16:58:48 PTAGE: 62 years EKG: ATRIAL FIBRILLATION WITH RAPID VENTRICULAR RESPONSE ST DEVIATION AND MODERATE T-WAVE ABNORM ALITY, CONSIDER LATERAL ISCHEMIA ST DEVIATION AND MODERATE T-WAVE ABNORMALITY, CONSIDER INFERIOR ISCH EMIA ABNORMAL ECG Compared to PREVIOUS TRACING , there is a rhythm change from Sinus rhythm with a rate of 93 to atrial fibrillation with ventricular rate of 159. The ST-T changes are much mo re prominent. PREVIOUS TRACIN12/06/2017 09.37 DOCTOR: Zana Tao Interpretating Date/Time 01/06/2018 13:04:09
--- NOTE | 2018-01-06 13:06 | EKG ---
Date Performed: 01/05/2018 Time Performed: 23:05:32 PTAGE: 62 years EKG: Atrial fibrillation Inferior/lateral ST-T changes are nonspecific Abnormal ECG Compared to PREVIOUS TRACING , ventricular response of the atrial fibrillation has decreased from [address]-T changes are significantly improved. PREVIOUS TRACIN01/05/2018 16.58 DOCTOR: Zana Tao Interpretating Date/Time 01/06/2018 13:05:32
--- NOTE | 2018-01-06 13:07 | EKG ---
Date Performed: 01/06/2018 Time Performed: 05:14:16 PTAGE: 62 years EKG: Atrial fibrillation with rapid ventricular response Inferior/lateral ST-T changes are nonsp ecific Abnormal ECG Compared to PREVIOUS TRACING , ventricular response to the atrial fibrillation slightly faster, other winters no change. PREVIOUS TRACIN01/05/2018 23.05 DOCTOR: Zana Tao Interpretating Date/Time 01/06/2018 13:06:06
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
[2018-01-06] MEDS ORDERED: FLEC100T PO (14:41)
[2018-01-06] MEDS ORDERED: ECASA81 PO (14:45)
[2018-01-06] MEDS ORDERED: DILT120C50 PO (14:45)
[2018-01-06] MEDS: DILTIAZEM HCL 30 MG TAB PO SCH ×2 (14:46→20:30)
[2018-01-06] MEDS ORDERED: LEVA750T9 PO (14:49)
--- NOTE | 2018-01-06 14:50 | HHI.FF ---
Face to Face Verification Diagnosis: (1) Atrial fibrillation (2) Acute kidney injury (3) Foot ulcer, left Home Health Nursing Order: Medical education Signs/symptoms of disease process Medication education-adverse effect I have seen patient Sam Hansen on 01/06/18. My clinical findings support the need for the requested home health care services because: Med compliance is questionable I certify that my clinical findings support that this patient is homebound because: Need for psychosocial assistance Aime Johnston MD January 06, 2018 14:50
[2018-01-06] MEDS ORDERED: PANTOPRAZOLE SOD 40 MG DELAYED RELEASE TAB PO ONE (15:45)
[2018-01-06] MEDS ORDERED: LIDOCAINE VISCOUS 2% SOLN 15 ML UDC SWISH-SWAL PRN (16:00)
[2018-01-06] MEDS: ASPIRIN EC 81 MG TABEC PO SCH (16:44)
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
[2018-01-07] VITALS (11 sets, daily range): BP systolic 129–170; BP diastolic 80–103; PULSE 70–111; RESP 16–20; TEMP 97.4–98.5; O2SAT 94–98
[2018-01-07] MEDS: ACETAMINOPHEN/HYDROcodone 325 MG/5 MG TAB PO PRN ×4 (00:10→16:30)
[2018-01-07] MEDS: CLINDAMYCIN 150 MG CAP PO SCH ×4 (00:10→17:29)
[2018-01-07] MEDS: DILTIAZEM HCL 30 MG TAB PO SCH ×2 (00:10→06:14)
[2018-01-07] MEDS: SODIUM CHLOR 0.9% 1000 ML INJ 1,000 ML IV SCH ×2 (03:46→10:25)
[2018-01-07] MEDS: CHLORHEXIDINE GLUCONATE 2 % 1 PACK (2 CLOTHS) TOP SCH (04:00)
[2018-01-07] MEDS: METOPROLOL TARTRATE 50 MG TAB PO SCH ×3 (06:14→21:39)
[2018-01-07] MEDS: LEVOFLOXACIN 750 MG TAB PO SCH (06:14)
[2018-01-07] MEDS: ALUMINUM/MAGNESIUM/SIMETH 30 ML CUP PO PRN (06:42)
[2018-01-07] MEDS: LORazepam 2 MG/ML VIAL IV PUSH PRN ×2 (06:57→08:36)
[2018-01-07] MEDS: PANTOPRAZOLE SOD 40 MG DELAYED RELEASE TAB PO SCH (08:29)
[2018-01-07] MEDS: FOLIC ACID 1 MG TAB PO SCH (08:29)
[2018-01-07] MEDS: ASPIRIN EC 81 MG TABEC PO SCH (08:29)
[2018-01-07] MEDS: DOCUSATE SODIUM 50 MG/SENNA 8.6 MG TAB PO SCH ×2 (08:29→21:38)
[2018-01-07] MEDS: MULTIVITAMINS/MINERALS THERAPEUTIC TAB PO SCH (08:29)
[2018-01-07] MEDS: THIAMINE HCL 100 MG TAB PO SCH (08:29)
[2018-01-07] MEDS: SODIUM CHLORIDE 0.9% FLUSH 10 ML FLUSH IV FLUSH SCH ×2 (08:30→22:24)
[2018-01-07] MEDS: MORPHINE SULFATE 15 MG CONTROLLED RELEASE TAB PO SCH ×2 (08:30→21:37)
[2018-01-07] MEDS: HEPARIN SODIUM - SQ 10,000 UNITS/ML VIAL SQ SCH ×3 (08:34→21:38)
[2018-01-07] MEDS: FLECAINIDE ACETATE 100 MG TAB PO SCH ×2 (09:00→21:38)
--- NOTE | 2018-01-07 10:58 | HHI.PR ---
Subjective Remarks Patient says he is feeling all right. Reports of chest discomfort has improved somewhat, however now has cough productive of clear sputum over the past day Objective Vital Signs Date Time Temp Pulse Resp B/P (MAP) Pulse Ox O2 Delivery O2 Flow Rate FiO2 01/07/18 08:03 98 Nasal Cannula 2.00 01/07/18 08:00 97.5 76 18 146/80 (102) 95 01/07/18 04:05 70 01/07/18 04:00 97.5 104 18 152/98 (116) 98 01/07/18 00:11 93 01/06/18 22:23 85 01/06/18 22:15 98.0 88 16 140/88 (105) 97 01/06/18 20:54 96 21 01/06/18 19:00 98.6 101 22 139/93 (108) 97 01/06/18 19:00 107 01/06/18 17:47 17 01/06/18 15:00 90 01/06/18 15:00 98.1 90 18 136/99 (111) 95 01/06/18 12:17 101 124/93 01/06/18 11:00 100 01/06/18 11:00 20 01/06/18 11:00 97.6 105 20 124/93 (103) 97 I/O 01/06/18 01/06/18 01/06/18 01/07/18 01/07/18 01/07/18 07:00 15:00 23:00 07:00 15:00 23:00 Intake Total 480 ml 720 ml 1360 ml Output Total 600 ml 785 ml 700 ml Balance -120 ml -65 ml 660 ml Intake Oral 480 ml 720 ml 360 ml IV Total 1000 ml Output Urine Total 600 ml 785 ml 700 ml Result Diagram: 01/06/18 0537 01/06/18 0537 Objective Remarks GENERAL: Patient sleeping, wakes up for exam. Alert. SKIN: Warm and dry. HEAD: Normocephalic. EYES: No scleral icterus. No injection or drainage. NECK: Supple, trachea midline. JVD assessment difficult secondary to body habitus. CARDIOVASCULAR: Regular rate and rhythm without murmurs, gallops, or rubs. RESPIRATORY: Breath sounds equal bilaterally. No accessory muscle use. Patient does have rhonchi and crackles bilaterally, however just woke up, is a chronic smoker. GASTROINTESTINAL: Abdomen soft, non-tender, nondistended. MUSCULOSKELETAL: No cyanosis. Trace bilateral lower extremity edema. BACK: Nontender without obvious deformity. No CVA tenderness. A/P Assessment and Plan //Chest Pain: Still having chest pain since admission, troponins are negative, had negative stress test 1 month ago. Allergy to nitro. Will defer to cardiology for further workup if warranted. Will administer Maalox and viscous lidocaine in case this is GERD. Addendum: still intractable despite maalox and lidocaine, starting protonix and consulting GI for EGD. I independently reviewed the repeat EKGs that were performed that were not uploaded into [employer], no ischemic findings noted - only improving afib rate w/ irregular rhythm. clear for d/c home from cardiology standpoint if weaned off of esmolol. Also ordering CT angio given tachyarrhythmia w/ unrelieved chest pain. = 01/07. D-dimer elevated. CT pulmonary angiogram pending. Renal function has improved. = GI also following for chest pain. //Cough productive of clear sputum. -1 day history since admission. Rhonchi on exam, however patient is a chronic smoker. On IV fluids. Will check stat chest x-ray, BNP, labs. Hold IV fluids for now. //Afib w/ RVR: successfully weaned off of esmolol drip once started on oral cardizem. With HR jumping to 130s w/ transferring and standing, i will increase Lopressor from 50 bid to 70 mg tid for now. //AK I was likely secondary to A. fib with RVR as well as drinking alcohol, much improved with rate control and IV fluids. //Leukocytosis: improving, 2/2 stress induced //Chronic left heel ulcer. continue home abx regimen Alcohol Abuse: Chronic. CIWA, Seizure Precautions, MVT/Thiamine/Folate replacement. Starting librium taper Discharge Planning Pending improvement. We will need cardiology, GI clearance. Jeffrey Maldonado MD January 07, 2018 10:58
[2018-01-07] MEDS: LORazepam 1 MG TAB PO PRN ×2 (11:22→22:24)
--- NOTE | 2018-01-07 11:30 | RADRPT ---
EXAM DATE: 01/07/2018 11:15 AM EDT AGE/SEX: 62 years / Male INDICATIONS: Chest pain. CLINICAL DATA: This is the patient's subsequent encounter. Patient reports that signs and symptoms h ave been present for 3 days and indicates a pain score of 6/10. MEDICAL/SURGICAL HISTORY: . Chronic obstructive pulmonary disease. Congestive heart failure. AF IB. None. [place] [facility] [place]. . FINDINGS: A single AP view of the chest demonstrates parenchymal densities left lung again seen. Left-sided rib fractures. Cardiomegaly. The cardiomediastinal contours are unremarkable. Osseous structures are i ntact. CONCLUSION: Parenchymal densities left lung are stable. Electronically signed by: Kevin Polanco MD 01/07/2018 11:29 AM EDT
[2018-01-07 11:41] LABS: AUTOMATED NEUTROPHIL # 5.9 TH/MM3 (1.8-7.7); BASOPHIL # 0.1 TH/MM3 (0-0.2); BASOPHIL % 0.7 % (0.0-2.0); EOSINOPHIL # 0.3 TH/MM3 (0-0.4); EOSINOPHIL % 3.1 % (0.0-4.0); HEMATOCRIT 41.1 % (39.0-51.0); LYMPH % 24.7 % (9.0-44.0); LYMPHOCYTE # 2.7 TH/MM3 (1.0-4.8); MEAN CELL VOLUME 99.5 FL (80.0-100.0); MEAN CORPUSCULAR HEMOGLOBIN 33.8 PG (27.0-34.0); MEAN PLATELET VOLUME 8.3 FL (7.0-11.0); MONO % 16.6 % (0.0-8.0); MONOCYTE # 1.8 TH/MM3 (0-0.9); NEUT % 54.9 % (16.0-70.0); PLATELET COUNT 373 TH/MM3 (150-450); RED BLOOD COUNT 4.13 MIL/MM3 (4.50-5.90); RED CELL DISTRIBUTION WIDTH 17.9 % (11.6-17.2); WHITE BLOOD COUNT 10.8 TH/MM3 (4.0-11.0)
[2018-01-07 12:00] LABS: BICARBONATE 23.1 MEQ/L (21.0-32.0); CALCIUM 8.3 MG/DL (8.5-10.1); CREATININE 0.72 MG/DL (0.60-1.30)
[2018-01-07] MEDS ORDERED: PROPOFOL 200 MG/20 ML AMP IV ONE (12:00)
[2018-01-07] MEDS ORDERED: LIDOCAINE HCL 1% PF 5 ML SYRINGE OTHER ONE (12:00)
--- NOTE | 2018-01-07 13:04 | PD.CARD.PN ---
Subjective Subjective Remarks Continued aching substernal CP. No nausea, dyspnea, dizziness, palpitations. Objective Medications Item Value Date Time Metoprolol 75 mg 01/06/18 1545 Tartrate Q8HR/PO 01/07/18 0614 (Lopressor) Diltiazem HCl 30 mg 01/06/18 1245 (Cardizem) Q6HR/PO 01/07/18 0614 Flecainide Acetate 100 mg 01/06/18 1030 (Tambocor) BID/PO 01/07/18 0900 Aspirin 81 mg 01/06/18 1030 (Ecotrin Ec) DAILY/PO 01/07/18 0829 Current Medications Medications (Trade) Dose Ordered Sig/Candy Route Start Time Stop Time Status Last Admin Esmolol HCl/ Sodium Chloride 250 ml @ 0 mls/hr TITRATE PRN IV 01/05/18 17:45 01/06/18 12:17 (Brevibloc Bolus Inj) 48 mg BOLUS PRN IV PUSH 01/05/18 17:45 01/05/18 18:09 (Narcan Inj) 0.4 mg UNSCH PRN IV PUSH 01/05/18 19:00 (Desi-Colace) 1 tab BID PO 01/05/18 21:00 01/07/18 08:29 (Milk Of Magnesia Liq) 30 ml Q12H PRN PO 01/05/18 19:00 (Senokot) 17.2 mg Q12H PRN PO 01/05/18 19:00 (Dulcolax Supp) 10 mg DAILY PRN RECTAL 01/05/18 19:00 (Lactulose Liq) 30 ml DAILY PRN PO 01/05/18 19:00 Sodium Chloride 1,000 ml @ 100 mls/hr Q10H IV 01/05/18 18:57 Future hold 01/07/18 10:25 (NS Flush) 2 ml UNSCH PRN IV FLUSH 01/05/18 19:00 (NS Flush) 2 ml BID IV FLUSH 01/05/18 21:00 01/07/18 08:30 (Reglan Inj) 5 mg Q6H PRN IV PUSH 01/05/18 19:00 (Heparin Inj) 5,000 units Q12H SQ 01/06/18 09:00 01/06/18 09:36 (Tylenol) 650 mg Q6H PRN PO 01/05/18 19:00 ([place] 5-325 Mg) 1 tab Q4H PRN PO 01/05/18 19:00 01/07/18 11:28 (Folate) 1 mg DAILY PO 01/06/18 09:00 01/11/18 08:59 01/07/18 08:29 (Vitamin B1) 100 mg DAILY PO 01/05/18 20:00 01/07/18 08:29 (Theragran M Tab) 1 tab DAILY PO 01/06/18 09:00 01/11/18 08:59 01/07/18 08:29 (Romazicon Inj) 0.2 mg Q1M PRN IV PUSH 01/05/18 19:00 (Ativan) 1 mg Q4H PRN PO 01/05/18 19:00 01/07/18 11:22 (Ativan Inj) 1 mg Q4H PRN IV PUSH 01/05/18 19:00 (Ativan) 2 mg Q2H PRN PO 01/05/18 19:00 (Ativan Inj) 2 mg Q2H PRN IV PUSH 01/05/18 19:00 01/07/18 08:36 (Ativan Inj) 2 mg Q1H PRN IV PUSH 01/05/18 19:00 (Ativan Inj) 2 mg Q15M PRN IV PUSH 01/05/18 19:00 (Haldol Inj) 2 mg Q15M PRN IM 01/05/18 19:00 (Oramorph Sr) 15 mg Q12HR PO 01/05/18 21:00 01/07/18 08:30 ([facility] [place] 1 Q361D XX 01/05/18 20:45 01/05/18 20:45 (Chlorhexidine 2% Cloth) 3 pack Taper DAILY@04 TOP 01/06/18 04:00 01/02/19 03:59 01/07/18 04:00 (Chlorhexidine 2% Cloth) 3 pack UNSCH PRN TOP 01/05/18 20:45 (Levaquin) 750 mg DAILY@0600 PO 01/06/18 06:00 01/07/18 06:14 (Cleocin) 300 mg Q6HR PO 01/06/18 00:00 01/07/18 06:14 (Tambocor) 100 mg BID PO 01/06/18 10:30 01/07/18 09:00 (Ecotrin Ec) 81 mg DAILY PO 01/06/18 10:30 01/07/18 08:29 (Cardizem) 30 mg Q6HR PO 01/06/18 12:45 01/07/18 06:14 (Protonix) 40 mg DAILY PO 01/07/18 09:00 01/07/18 08:29 (Lopressor) 75 mg Q8HR PO 01/06/18 15:45 01/07/18 06:14 (Mag-Al Plus Susp Liq) 30 ml Q6H PRN PO 01/06/18 16:00 01/07/18 06:42 (Xylocaine 2% Viscous) 15 ml Q4H PRN SWISH-SWAL 01/06/18 16:00 (Librium) 10 mg TID PO 01/06/18 16:00 01/07/18 08:29 Vital Signs / I&O Vital Signs Date Time Temp Pulse Resp B/P (MAP) Pulse Ox O2 Delivery O2 Flow Rate FiO2 01/07/18 08:03 98 Nasal Cannula 2.00 01/07/18 08:00 95 01/07/18 08:00 97.5 76 18 146/80 (102) 95 01/07/18 04:05 70 01/07/18 04:00 97.5 104 18 152/98 (116) 98 01/07/18 00:11 93 01/06/18 22:23 85 01/06/18 22:15 98.0 88 16 140/88 (105) 97 01/06/18 20:54 96 21 01/06/18 19:00 98.6 101 22 139/93 (108) 97 01/06/18 19:00 107 01/06/18 17:47 17 01/06/18 15:00 90 01/06/18 15:00 98.1 90 18 136/99 (111) 95 I/O 01/06/18 01/06/18 01/06/18 01/07/18 01/07/18 01/07/18 07:00 15:00 23:00 07:00 15:00 23:00 Intake Total 480 ml 720 ml 1360 ml Output Total 600 ml 785 ml 700 ml Balance -120 ml -65 ml 660 ml Intake Oral 480 ml 720 ml 360 ml IV Total 1000 ml Output Urine Total 600 ml 785 ml 700 ml Physical Exam GENERAL: Well developed, well nourished. No acute distress. HEENT: Jugular venous pressure is normal. CHEST: Lungs clear to auscultation bilaterally. Unlabored respiratory effort. CARDIAC: Irregular rate and rhythm without S3, S4, or murmur. ABDOMEN: Soft, nontender, no hepatosplenomegaly. Bowel sounds present. EXTREMITIES: No clubbing, cyanosis, or edema. Laboratory Laboratory Tests Test 01/06/18 17:18 01/07/18 11:21 D-Dimer Quantitative (PE/DVT) 1.32 MG/L FEU White Blood Count 10.8 TH/MM3 Red Blood Count 4.13 MIL/MM3 Hemoglobin 14.0 GM/DL Hematocrit 41.1 % Mean Corpuscular Volume 99.5 FL Mean Corpuscular Hemoglobin 33.8 PG Mean Corpuscular Hemoglobin Concent 34.0 % Red Cell Distribution Width 17.9 % Platelet Count 373 TH/MM3 Mean Platelet Volume 8.3 FL Neutrophils (%) (Auto) 54.9 % Lymphocytes (%) (Auto) 24.7 % Monocytes (%) (Auto) 16.6 % Eosinophils (%) (Auto) 3.1 % Basophils (%) (Auto) 0.7 % Neutrophils # (Auto) 5.9 TH/MM3 Lymphocytes # (Auto) 2.7 TH/MM3 Monocytes # (Auto) 1.8 TH/MM3 Eosinophils # (Auto) 0.3 TH/MM3 Basophils # (Auto) 0.1 TH/MM3 CBC Comment DIFF FINAL Differential Comment Blood Urea Nitrogen 10 MG/DL Creatinine 0.72 MG/DL Random Glucose 90 MG/DL Calcium Level 8.3 MG/DL Sodium Level 142 MEQ/L Potassium Level 3.5 MEQ/L Chloride Level 110 MEQ/L Carbon Dioxide Level 23.1 MEQ/L Anion Gap 9 MEQ/L Estimat Glomerular Filtration Rate 110 ML/MIN B-Type Natriuretic Peptide 589 PG/ML Imaging Last 24 hours Impressions Chest X-Ray 01/07/18 0000 Signed Impressions: CONCLUSION: Parenchymal densities left lung are stable. Assessment and Plan Problem List: (1) Paroxysmal atrial fibrillation ICD Codes: I48.0 - Paroxysmal atrial fibrillation Status: Chronic Plan: Remains in atrial fibrillation, now controlled HR's. Thromboembolic risk overall low. REC continue diltiazem (change to CD form), metoprolol, flecainide (increase dose) continue daily aspirin (2) Chest pain ICD Codes: R07.9 - Chest pain, unspecified Status: Chronic Plan: Chronic exceedingly atypical CP's. Negative cardiac enzymes despite prolonged constant CP. Normal annual nuclear stress tests past 3 years. Recommend no additional w/u at this time. Code Status full code Discussed Condition With patient Problem Qualifiers (1) Chest pain: Qualified Codes: R07.9 - Chest pain, unspecified Huy Almaguer MD January 07, 2018 13:04
[2018-01-07] MEDS ORDERED: PILL SPLITTER OTHER PRN (13:15)
[2018-01-07] MEDS ORDERED: FUROSEMIDE 20 MG/2 ML VIAL IV PUSH ONE (14:15)
[2018-01-07] MEDS ORDERED: POTASSIUM CHLORIDE 20 MEQ CONTROLLED RELEASE TAB PO ONE (14:15)
[2018-01-07] MEDS ORDERED: DO NOT ADM ANY ANTICOAGULANT DRUGS PRN (14:24)
--- NOTE | 2018-01-07 14:24 | GIPROC ---
[facility] [address] [facility]. [facility], [address] EGD PROCEDURE REPORT EXAM DATE: 01/07/2018 PATIENT NAME: Sam Hansen MR #: [id number] BIRTHDATE: 1955 ATTENDING: Foster Conn MD ORDER #: [id number] PLANT ASSOCIATE: Yari Frazier and Edita Berrios STATUS: inpatient INDICATIONS: The patient is a 62 yr old male here for an EGD due to anemia and history of esophageal reflux PROCEDURE PERFORMED: EGD w/ biopsy MEDICATIONS: None and Per Anesthesia. TOPICAL ANESTHETIC: CONSENT: The patient understands the risks and benefits of the procedure and understands that these risks include, but are not limited to: sedation, allergic reaction, infection, perforation and/or bleeding. Alternative means of evaluation and treatment include, among others: physical exam, x-rays, and/or surgical intervention. The patient elects to proceed with this endoscopic procedure. medical equipment was checked for proper function. Hand hygiene and appropriate measures for infection prevention was taken. After the risks, benefits and alternatives of the procedure were thoroughly explained, Informed consent was verified, confirmed and timeout was successfully executed by the treatment team. The patient was anesthetized with topical anesthesia and the Pentax EG-[id number] endoscope was introduced through the mouth and advanced to the second portion of the duodenum. Retroflexed views revealed no abnormalities The gastroscope was then slowly withdrawn and removed. ESOPHAGUS: There was LA Class C esophagitis noted. A biopsy was performed using cold forceps. Sample sent for histology. STOMACH: There was erythematous moderate gastritis in the gastric antrum. A biopsy was performed using cold forceps. Sample sent for histology. DUODENUM: A single non-bleeding, shallow and clean-based ulcer ranging between 3-5 mm in size was found in the 1st part of the duodenum. ADVERSE EVENTS: There were no complications. IMPRESSIONS: 1. There was LA Class C esophagitis noted; biopsy was performed 2. There was erythematous gastritis in the gastric antrum; biopsy was performed 3. Single ulcer ranging between 3-5 mm in size was found in the 1st part of the duodenum 4. Retroflexed views revealed no abnormalities RECOMMENDATIONS: 1. Await biopsy results. Biopsy results will not be ready for 7-10 days. If you don't hear from us in two weeks, call our office for biopsy results. 2. Anti-reflux regimen 3. Continue PPI 4. Avoid NSAIDS 5. Colonoscopy as outpatient. Canbe anticoagulated as needed. PATIENT CONDITION: stable DISPOSITION: Inpatient REPEAT EXAM: Return 1 month EGD pending biopsy results Foster Conn MD eSigned: Foster Conn MD 01/07/2018 2:23 PM cc: PATIENT NAME: Sam Hansen MR#: [id number]
[2018-01-07] MEDS: DILTIAZEM-CD 180 MG CAP ER PO SCH (16:16)
[2018-01-07] MEDS ORDERED: IOHEXOL 350 MG/ML 10 ML VIAL (for RAD DIAG) IVCONTRAST ONE (18:16)
--- NOTE | 2018-01-07 18:31 | RADRPT ---
EXAM DATE: 01/07/2018 6:10 PM EDT AGE/SEX: 62 years / Male INDICATIONS: Chest pain CLINICAL DATA: This is the patient's initial encounter. Patient reports that signs and symptoms have been present for 2 days and indicates a pain score of 4/10. MEDICAL/SURGICAL HISTORY: Chronic obstructive pulmonary disease. Cardiovascular disease. Seizures None. RADIATION DOSE: 19.44 CTDI (mGy) [place] [facility] [place]. . TECHNIQUE: Volumetric scanning was performed using a multi-row detector CT scanner during bolus infu dedra of 73 ml Omnipaque 350 (iohexol) nonionic water-soluble contrast as a single exam dose. The elizabeth a was post processed with a variety of visualization algorithms including full volume maximum intensi ty projection and sliding thin slab reformation. Using automated exposure control and adjustment of the mA and/or kV according to patient size, radiation dose was kept as low as reasonably achievable t o obtain optimal diagnostic quality images. FINDINGS: No filling defects identified to suggest pulmonary embolic disease. Scarring and pleural thickening a t the lung bases with multiple left-sided rib fractures and extensive callus formation. Mild coronary calcifications. No pleural or pericardial effusion. Upper abdomen reveals multiple hepatic cysts similar to prior examination. CONCLUSION: 1. Negative for pulmonary embolus. Remote left chest trauma. Electronically signed by: Obed hCadwick MD 01/07/2018 6:30 PM EDT
[2018-01-08] VITALS (10 sets, daily range): BP systolic 132–165; BP diastolic 87–120; PULSE 60–100; RESP 16–18; TEMP 97–98.2; O2SAT 94–97
[2018-01-08] MEDS: ACETAMINOPHEN/HYDROcodone 325 MG/5 MG TAB PO PRN ×5 (01:12→20:18)
[2018-01-08] MEDS: CLINDAMYCIN 150 MG CAP PO SCH ×4 (01:12→17:40)
[2018-01-08] MEDS: LORazepam 1 MG TAB PO PRN ×4 (05:47→22:06)
[2018-01-08] MEDS: LEVOFLOXACIN 750 MG TAB PO SCH (05:48)
[2018-01-08] MEDS: METOPROLOL TARTRATE 50 MG TAB PO SCH ×3 (05:48→22:05)
[2018-01-08 06:52] LABS: AUTOMATED NEUTROPHIL # 6.5 TH/MM3 (1.8-7.7); BASOPHIL # 0.2 TH/MM3 (0-0.2); BASOPHIL % 1.2 % (0.0-2.0); EOSINOPHIL # 0.3 TH/MM3 (0-0.4); EOSINOPHIL % 2.6 % (0.0-4.0); HEMATOCRIT 45.5 % (39.0-51.0); HEMOGLOBIN 15.8 GM/DL (13.0-17.0); LYMPH % 27.9 % (9.0-44.0); LYMPHOCYTE # 3.4 TH/MM3 (1.0-4.8); MEAN CELL VOLUME 99.6 FL (80.0-100.0); MEAN CORPUSCULAR HEMOGLOBIN 34.6 PG (27.0-34.0); MEAN CORPUSCULAR HGB CONC 34.8 % (32.0-36.0); MEAN PLATELET VOLUME 8.7 FL (7.0-11.0); MONO % 14.8 % (0.0-8.0); MONOCYTE # 1.8 TH/MM3 (0-0.9); NEUT % 53.5 % (16.0-70.0); PLATELET COUNT 383 TH/MM3 (150-450); RED BLOOD COUNT 4.57 MIL/MM3 (4.50-5.90); RED CELL DISTRIBUTION WIDTH 17.6 % (11.6-17.2); WHITE BLOOD COUNT 12.2 TH/MM3 (4.0-11.0)
[2018-01-08 07:06] LABS: ALBUMIN 3.3 GM/DL (3.4-5.0); BICARBONATE 26.7 MEQ/L (21.0-32.0); CALCIUM 8.8 MG/DL (8.5-10.1); CREATININE 0.9 MG/DL (0.60-1.30); MAGNESIUM 1.9 MG/DL (1.5-2.5); PHOSPHORUS 2.7 MG/DL (2.5-4.9)
[2018-01-08] MEDS: FLECAINIDE ACETATE 100 MG TAB PO SCH ×2 (08:16→22:06)
[2018-01-08] MEDS: THIAMINE HCL 100 MG TAB PO SCH (08:18)
[2018-01-08] MEDS: PANTOPRAZOLE SOD 40 MG DELAYED RELEASE TAB PO SCH (08:18)
[2018-01-08] MEDS: DOCUSATE SODIUM 50 MG/SENNA 8.6 MG TAB PO SCH ×2 (08:18→22:05)
[2018-01-08] MEDS: MULTIVITAMINS/MINERALS THERAPEUTIC TAB PO SCH (08:18)
[2018-01-08] MEDS: MORPHINE SULFATE 15 MG CONTROLLED RELEASE TAB PO SCH ×2 (08:18→20:18)
[2018-01-08] MEDS: ASPIRIN EC 81 MG TABEC PO SCH (08:18)
[2018-01-08] MEDS: DILTIAZEM-CD 180 MG CAP ER PO SCH ×3 (08:18→22:06)
[2018-01-08] MEDS: FOLIC ACID 1 MG TAB PO SCH (08:18)
[2018-01-08] MEDS: SODIUM CHLORIDE 0.9% FLUSH 10 ML FLUSH IV FLUSH SCH ×2 (08:19→21:00)
[2018-01-08] MEDS: HEPARIN SODIUM - SQ 10,000 UNITS/ML VIAL SQ SCH ×2 (08:22→21:00)
--- NOTE | 2018-01-08 08:31 | PD.CARD.PN ---
Subjective Subjective Remarks Continued aching substernal CP though better overall. No nausea, dyspnea, dizziness. Mild fluttering palpitations this morning. Objective Medications Item Value Date Time Flecainide Acetate 150 mg 01/07/18 2100 (Tambocor) BID/PO 01/08/18 0816 Diltiazem HCl 180 mg 01/07/18 1315 (Cardizem Cd) DAILY/PO 01/08/18 0818 Metoprolol 75 mg 01/06/18 1545 Tartrate Q8HR/PO 01/08/18 0548 (Lopressor) Aspirin 81 mg 01/06/18 1030 (Ecotrin Ec) DAILY/PO 01/08/18 0818 Heparin Sodium 5,000 units 01/06/18 0900 (Porcine) Q12H/SQ (Heparin Inj) Current Medications Medications (Trade) Dose Ordered Sig/Candy Route Start Time Stop Time Status Last Admin Esmolol HCl/ Sodium Chloride 250 ml @ 0 mls/hr TITRATE PRN IV 01/05/18 17:45 01/06/18 12:17 (Brevibloc Bolus Inj) 48 mg BOLUS PRN IV PUSH 01/05/18 17:45 01/05/18 18:09 (Narcan Inj) 0.4 mg UNSCH PRN IV PUSH 01/05/18 19:00 (Desi-Colace) 1 tab BID PO 01/05/18 21:00 01/08/18 08:18 (Milk Of Magnesia Liq) 30 ml Q12H PRN PO 01/05/18 19:00 (Senokot) 17.2 mg Q12H PRN PO 01/05/18 19:00 (Dulcolax Supp) 10 mg DAILY PRN RECTAL 01/05/18 19:00 (Lactulose Liq) 30 ml DAILY PRN PO 01/05/18 19:00 (NS Flush) 2 ml UNSCH PRN IV FLUSH 01/05/18 19:00 (NS Flush) 2 ml BID IV FLUSH 01/05/18 21:00 01/08/18 08:19 (Reglan Inj) 5 mg Q6H PRN IV PUSH 01/05/18 19:00 (Heparin Inj) 5,000 units Q12H SQ 01/06/18 09:00 01/06/18 09:36 (Tylenol) 650 mg Q6H PRN PO 01/05/18 19:00 ([place] 5-325 Mg) 1 tab Q4H PRN PO 01/05/18 19:00 01/08/18 05:48 (Folate) 1 mg DAILY PO 01/06/18 09:00 01/11/18 08:59 01/08/18 08:18 (Vitamin B1) 100 mg DAILY PO 01/05/18 20:00 01/08/18 08:18 (Theragran M Tab) 1 tab DAILY PO 01/06/18 09:00 01/11/18 08:59 01/08/18 08:18 (Romazicon Inj) 0.2 mg Q1M PRN IV PUSH 01/05/18 19:00 (Ativan) 1 mg Q4H PRN PO 01/05/18 19:00 01/08/18 05:47 (Ativan Inj) 1 mg Q4H PRN IV PUSH 01/05/18 19:00 01/07/18 16:17 (Ativan) 2 mg Q2H PRN PO 01/05/18 19:00 (Ativan Inj) 2 mg Q2H PRN IV PUSH 01/05/18 19:00 01/07/18 08:36 (Ativan Inj) 2 mg Q1H PRN IV PUSH 01/05/18 19:00 (Ativan Inj) 2 mg Q15M PRN IV PUSH 01/05/18 19:00 (Haldol Inj) 2 mg Q15M PRN IM 01/05/18 19:00 (Oramorph Sr) 15 mg Q12HR PO 01/05/18 21:00 01/08/18 08:18 ([facility] Nursing Information) 1 Q361D XX 01/05/18 20:45 01/05/18 20:45 (Chlorhexidine 2% Cloth) 3 pack Taper DAILY@04 TOP 01/06/18 04:00 01/02/19 03:59 01/07/18 04:00 (Chlorhexidine 2% Cloth) 3 pack UNSCH PRN TOP 01/05/18 20:45 (Levaquin) 750 mg DAILY@0600 PO 01/06/18 06:00 01/08/18 05:48 (Cleocin) 300 mg Q6HR PO 01/06/18 00:00 01/08/18 05:47 (Ecotrin Ec) 81 mg DAILY PO 01/06/18 10:30 01/08/18 08:18 (Protonix) 40 mg DAILY PO 01/07/18 09:00 01/08/18 08:18 (Lopressor) 75 mg Q8HR PO 01/06/18 15:45 01/08/18 05:48 (Mag-Al Plus Susp Liq) 30 ml Q6H PRN PO 01/06/18 16:00 01/07/18 06:42 (Xylocaine 2% Viscous) 15 ml Q4H PRN SWISH-SWAL 01/06/18 16:00 (Librium) 10 mg TID PO 01/06/18 16:00 01/08/18 08:19 (Tambocor) 150 mg BID PO 01/07/18 21:00 01/08/18 08:16 (Cardizem Cd) 180 mg DAILY PO 01/07/18 13:15 01/08/18 08:18 (Pill Splitter) 1 ea UNSCH PRN OTHER 01/07/18 13:15 ([facility] Nursing Information) ALL NURSING DEPARTME... UNSCH PRN .XX 01/07/18 14:24 01/08/18 14:23 Vital Signs / I&O Vital Signs Date Time Temp Pulse Resp B/P (MAP) Pulse Ox O2 Delivery O2 Flow Rate FiO2 01/08/18 04:00 98.0 91 18 132/96 (108) 94 01/08/18 00:00 98.1 100 18 159/120 (133) 95 01/07/18 20:47 84 01/07/18 20:00 97.4 70 18 129/100 (110) 94 01/07/18 16:00 97.8 98 20 170/98 (122) 95 01/07/18 16:00 111 01/07/18 14:56 98.1 89 23 130/83 (99) 97 Nasal Cannula 2 01/07/18 14:45 85 17 109/73 (85) 94 Nasal Cannula 2 01/07/18 14:30 85 19 113/75 (88) 95 Nasal Cannula 2 01/07/18 14:27 98.4 79 19 113/68 (83) 97 Nasal Cannula 2 01/07/18 13:30 98.5 81 16 142/103 (116) 96 01/07/18 12:15 98.0 80 18 163/90 (114) 96 01/07/18 12:00 80 I/O 01/07/18 01/07/18 01/07/18 01/08/18 01/08/18 01/08/18 07:00 15:00 23:00 07:00 15:00 23:00 Intake Total 1360 ml 100 ml 0 ml 850 ml Output Total 700 ml 750 ml 800 ml Balance 660 ml 100 ml -750 ml 50 ml Intake Oral 360 ml 0 ml 0 ml 850 ml IV Total 1000 ml 100 ml Output Urine Total 700 ml 750 ml 800 ml # Voids 0 Physical Exam GENERAL: Well developed, well nourished. No acute distress. HEENT: Jugular venous pressure is normal. CHEST: Lungs clear to auscultation bilaterally. Unlabored respiratory effort. CARDIAC: Irregular rate and rhythm without S3, S4, or murmur. ABDOMEN: Soft, nontender, no hepatosplenomegaly. Bowel sounds present. EXTREMITIES: No clubbing, cyanosis, or edema. Laboratory Laboratory Tests Test 01/07/18 11:21 01/08/18 05:35 White Blood Count 10.8 TH/MM3 12.2 TH/MM3 Red Blood Count 4.13 MIL/MM3 4.57 MIL/MM3 Hemoglobin 14.0 GM/DL 15.8 GM/DL Hematocrit 41.1 % 45.5 % Mean Corpuscular Volume 99.5 FL 99.6 FL Mean Corpuscular Hemoglobin 33.8 PG 34.6 PG Mean Corpuscular Hemoglobin Concent 34.0 % 34.8 % Red Cell Distribution Width 17.9 % 17.6 % Platelet Count 373 TH/MM3 383 TH/MM3 Mean Platelet Volume 8.3 FL 8.7 FL Neutrophils (%) (Auto) 54.9 % 53.5 % Lymphocytes (%) (Auto) 24.7 % 27.9 % Monocytes (%) (Auto) 16.6 % 14.8 % Eosinophils (%) (Auto) 3.1 % 2.6 % Basophils (%) (Auto) 0.7 % 1.2 % Neutrophils # (Auto) 5.9 TH/MM3 6.5 TH/MM3 Lymphocytes # (Auto) 2.7 TH/MM3 3.4 TH/MM3 Monocytes # (Auto) 1.8 TH/MM3 1.8 TH/MM3 Eosinophils # (Auto) 0.3 TH/MM3 0.3 TH/MM3 Basophils # (Auto) 0.1 TH/MM3 0.2 TH/MM3 CBC Comment DIFF FINAL DIFF FINAL Differential Comment Blood Urea Nitrogen 10 MG/DL 12 MG/DL Creatinine 0.72 MG/DL 0.90 MG/DL Random Glucose 90 MG/DL 85 MG/DL Calcium Level 8.3 MG/DL 8.8 MG/DL Sodium Level 142 MEQ/L 141 MEQ/L Potassium Level 3.5 MEQ/L 3.6 MEQ/L Chloride Level 110 MEQ/L 107 MEQ/L Carbon Dioxide Level 23.1 MEQ/L 26.7 MEQ/L Anion Gap 9 MEQ/L 7 MEQ/L Estimat Glomerular Filtration Rate 110 ML/MIN 85 ML/MIN B-Type Natriuretic Peptide 589 PG/ML Albumin 3.3 GM/DL Phosphorus Level 2.7 MG/DL Magnesium Level 1.9 MG/DL Assessment and Plan Problem List: (1) Paroxysmal atrial fibrillation ICD Codes: I48.0 - Paroxysmal atrial fibrillation Status: Chronic Plan: Remains in atrial fibrillation, now mostly controlled HR's though still with some paroxysms of elevated HR at rest. Thromboembolic risk overall low. EF 55% on echo 08/2017. REC increase Cardizem CD and metoprolol dosing consider stopping flecainide continue daily aspirin (2) Wide QRS ventricular tachycardia ICD Codes: I47.2 - Ventricular tachycardia Status: Acute Plan: Patient with occasional salvoes of wide complex tachycardia, probably aberrantly conducted atrial fib, difficult to rule out nonsustained VT. EF 55 % by echo 08/2017. REC increase beta catrachito dosing (3) Chest pain ICD Codes: R07.9 - Chest pain, unspecified Status: Chronic Plan: Chronic exceedingly atypical CP's. Negative cardiac enzymes despite prolonged constant CP. Normal annual nuclear stress tests past 3 years. Recommend no additional w/u at this time. Code Status full code Discussed Condition With patient Problem Qualifiers (1) Chest pain: Qualified Codes: R07.9 - Chest pain, unspecified Huy Almaguer MD January 08, 2018 08:31
[2018-01-08] MEDS: hydrALAZINE HCL 25 MG TAB PO SCH ×3 (09:12→22:05)
--- NOTE | 2018-01-08 10:08 | HHI.PR ---
Subjective Remarks Patient states he is feeling all right. Denies any chest pain. Denies any nausea or vomiting. Objective Vital Signs Date Time Temp Pulse Resp B/P (MAP) Pulse Ox O2 Delivery O2 Flow Rate FiO2 01/08/18 10:01 95 21 01/08/18 08:00 97.8 76 18 165/108 (127) 97 01/08/18 08:00 86 01/08/18 04:00 98.0 91 18 132/96 (108) 94 01/08/18 00:00 98.1 100 18 159/120 (133) 95 01/07/18 20:47 84 01/07/18 20:00 97.4 70 18 129/100 (110) 94 01/07/18 16:00 97.8 98 20 170/98 (122) 95 01/07/18 16:00 111 01/07/18 14:56 98.1 89 23 130/83 (99) 97 Nasal Cannula 2 01/07/18 14:45 85 17 109/73 (85) 94 Nasal Cannula 2 01/07/18 14:30 85 19 113/75 (88) 95 Nasal Cannula 2 01/07/18 14:27 98.4 79 19 113/68 (83) 97 Nasal Cannula 2 01/07/18 13:30 98.5 81 16 142/103 (116) 96 01/07/18 12:15 98.0 80 18 163/90 (114) 96 01/07/18 12:00 80 I/O 01/07/18 01/07/18 01/07/18 01/08/18 01/08/18 01/08/18 07:00 15:00 23:00 07:00 15:00 23:00 Intake Total 1360 ml 100 ml 0 ml 850 ml Output Total 700 ml 750 ml 800 ml Balance 660 ml 100 ml -750 ml 50 ml Intake Oral 360 ml 0 ml 0 ml 850 ml IV Total 1000 ml 100 ml Output Urine Total 700 ml 750 ml 800 ml # Voids 0 Result Diagram: 01/08/18 0535 01/08/18 0535 Objective Remarks GENERAL: Patient sleeping, wakes up for exam. Alert. SKIN: Warm and dry. HEAD: Normocephalic. EYES: No scleral icterus. No injection or drainage. NECK: Supple, trachea midline. JVD assessment difficult secondary to body habitus. CARDIOVASCULAR: Regular rate and rhythm without murmurs, gallops, or rubs. RESPIRATORY: Breath sounds equal bilaterally. No accessory muscle use. Patient does have dry crackles bilaterally. GASTROINTESTINAL: Abdomen soft, non-tender, nondistended. MUSCULOSKELETAL: No cyanosis. Trace bilateral lower extremity edema. BACK: Nontender without obvious deformity. No CVA tenderness. A/P Assessment and Plan //Chest Pain: troponins are negative, had negative stress test 1 month ago. Allergy to nitro. Will defer to cardiology for further workup if warranted. Will administer Maalox and viscous lidocaine in case this is GERD. Addendum: still intractable despite maalox and lidocaine, starting protonix and consulting GI for EGD. I independently reviewed the repeat EKGs that were performed that were not uploaded into [facility], no ischemic findings noted - only improving afib rate w/ irregular rhythm. clear for d/c home from cardiology standpoint if weaned off of esmolol. Also ordering CT angio given tachyarrhythmia w/ unrelieved chest pain. = 01/07. D-dimer elevated. CT pulmonary angiogram pending. Renal function has improved. = GI also following for chest pain. = Chest pain has resolved. Appreciate GI and cardiology assistance. Audiology recommends no workup for current chest pain. //Cough productive of clear sputum. -since admission although patient reports a chronic cough. Rhonchi on exam, however patient is a chronic smoker. On IV fluids. Will check stat chest x-ray , BNP, labs. Hold IV fluids for now. = CT pulmonary angiogram negative for embolism. Chronic thickening, patient is a chronic smoker. Likely secondary to emphysema. //Fluid overload = 01/07 BMP in the 500s. Discontinue IV fluids. //Afib w/ RVR: successfully weaned off of esmolol drip once started on oral cardizem. With HR jumping to 130s w/ transferring and standing, i will increase Lopressor from 50 bid to 70 mg tid for now. //AK I was likely secondary to A. fib with RVR as well as drinking alcohol, much improved with rate control and IV fluids. //Leukocytosis: improving, 2/2 stress induced = Likely stress-induced. No signs of infection currently. //Chronic left heel ulcer. continue home abx regimen //Alcohol Abuse: //Alcohol withdrawal chronic. CIWA, Seizure Precautions, MVT/Thiamine/Folate replacement. Starting librium taper = Patient reports last alcohol drink was day before yesterday. Will continue CIWA protocol and start on scheduled Librium. Discharge Planning Pending improvement in blood pressure. Still with episodes of tachycardia. We will need cardiology, GI clearance. = Probably discharge tomorrow. Jeffrey Maldonado MD January 08, 2018 10:08
[2018-01-08] MEDS: ALUMINUM/MAGNESIUM/SIMETH 30 ML CUP PO PRN (18:42)
[2018-01-09] VITALS (13 sets, daily range): BP systolic 102–165; BP diastolic 64–106; PULSE 47–58; RESP 16–18; TEMP 97.2–98.6; O2SAT 94–98
[2018-01-09] MEDS: CLINDAMYCIN 150 MG CAP PO SCH ×4 (00:01→18:05)
[2018-01-09] MEDS: ACETAMINOPHEN/HYDROcodone 325 MG/5 MG TAB PO PRN ×5 (00:01→21:31)
[2018-01-09] MEDS: LORazepam 1 MG TAB PO PRN ×3 (02:11→21:39)
[2018-01-09] MEDS: CHLORHEXIDINE GLUCONATE 2 % 1 PACK (2 CLOTHS) TOP SCH (03:47)
[2018-01-09 04:14] LABS: AUTOMATED NEUTROPHIL # 5.8 TH/MM3 (1.8-7.7); BASOPHIL # 0.2 TH/MM3 (0-0.2); BASOPHIL % 1.6 % (0.0-2.0); EOSINOPHIL # 0.3 TH/MM3 (0-0.4); EOSINOPHIL % 3.3 % (0.0-4.0); HEMATOCRIT 39.9 % (39.0-51.0); HEMOGLOBIN 13.9 GM/DL (13.0-17.0); LYMPH % 25.2 % (9.0-44.0); LYMPHOCYTE # 2.6 TH/MM3 (1.0-4.8); MEAN CELL VOLUME 98.5 FL (80.0-100.0); MEAN CORPUSCULAR HEMOGLOBIN 34.3 PG (27.0-34.0); MEAN CORPUSCULAR HGB CONC 34.8 % (32.0-36.0); MEAN PLATELET VOLUME 8.3 FL (7.0-11.0); MONO % 14.1 % (0.0-8.0); MONOCYTE # 1.5 TH/MM3 (0-0.9); NEUT % 55.8 % (16.0-70.0); PLATELET COUNT 346 TH/MM3 (150-450); RED BLOOD COUNT 4.05 MIL/MM3 (4.50-5.90); RED CELL DISTRIBUTION WIDTH 17.2 % (11.6-17.2); WHITE BLOOD COUNT 10.4 TH/MM3 (4.0-11.0)
[2018-01-09 04:22] LABS: CALCIUM 8.2 MG/DL (8.5-10.1); CREATININE 0.89 MG/DL (0.60-1.30); MAGNESIUM 2.1 MG/DL (1.5-2.5); PHOSPHORUS 3.4 MG/DL (2.5-4.9)
[2018-01-09 04:23] LABS: BICARBONATE 26.4 MEQ/L (21.0-32.0)
[2018-01-09] MEDS: hydrALAZINE HCL 25 MG TAB PO SCH ×5 (06:00→21:31)
[2018-01-09] MEDS: LEVOFLOXACIN 750 MG TAB PO SCH (06:00)
[2018-01-09] MEDS: DILTIAZEM-CD 180 MG CAP ER PO SCH ×2 (08:23→21:30)
[2018-01-09] MEDS: THIAMINE HCL 100 MG TAB PO SCH (08:23)
[2018-01-09] MEDS: HEPARIN SODIUM - SQ 10,000 UNITS/ML VIAL SQ SCH ×2 (08:23→21:00)
[2018-01-09] MEDS: FLECAINIDE ACETATE 100 MG TAB PO SCH ×2 (08:23→21:37)
[2018-01-09] MEDS: MULTIVITAMINS/MINERALS THERAPEUTIC TAB PO SCH (08:24)
[2018-01-09] MEDS: DOCUSATE SODIUM 50 MG/SENNA 8.6 MG TAB PO SCH ×2 (08:24→21:00)
[2018-01-09] MEDS: ASPIRIN EC 81 MG TABEC PO SCH (08:24)
[2018-01-09] MEDS: MORPHINE SULFATE 15 MG CONTROLLED RELEASE TAB PO SCH ×2 (08:24→21:31)
--- NOTE | 2018-01-09 08:24 | PD.CARD.PN ---
Subjective Subjective Remarks Continued constant aching substernal CP. No nausea, dizziness, palpitations. Mild dyspnea this morning. Objective Medications Item Value Date Time Diltiazem HCl 180 mg 01/08/18 0900 (Cardizem Cd) BID/PO 01/08/182205 Metoprolol 150 mg 01/08/18899 Tartrate BID/PO 01/08/18 220 (Lopressor) Hydralazine HCl 25 mg 01/08/18 0900 (Apresoline) Q8HR/PO 01/09/18 0600 Flecainide Acetate 150 mg 01/07/18 2100 (Tambocor) BID/PO 01/08/182205 Aspirin 81 mg 01/06/18 1030 (Ecotrin Ec) DAILY/PO 01/08/18 08 Current Medications Medications (Trade) Dose Ordered Sig/Candy Route Start Time Stop Time Status Last Admin Esmolol HCl/ Sodium Chloride 250 ml @ 0 mls/hr TITRATE PRN IV 01/05/18 17:45 01/06/18 12:17 (Brevibloc Bolus Inj) 48 mg BOLUS PRN IV PUSH 01/05/18 17:45 01/05/18 18:09 (Narcan Inj) 0.4 mg UNSCH PRN IV PUSH 01/05/18 19:00 (Desi-Colace) 1 tab BID PO 01/05/18 21:00 01/08/18 22:05 (Milk Of Magnesia Liq) 30 ml Q12H PRN PO 01/05/18 19:00 (Senokot) 17.2 mg Q12H PRN PO 01/05/18 19:00 (Dulcolax Supp) 10 mg DAILY PRN RECTAL 01/05/18 19:00 (Lactulose Liq) 30 ml DAILY PRN PO 01/05/18 19:00 (NS Flush) 2 ml UNSCH PRN IV FLUSH 01/05/18 19:00 (NS Flush) 2 ml BID IV FLUSH 01/05/18 21:00 01/08/18 21:00 (Reglan Inj) 5 mg Q6H PRN IV PUSH 01/05/18 19:00 (Heparin Inj) 5,000 units Q12H SQ 01/06/18 09:00 01/06/18 09:36 (Tylenol) 650 mg Q6H PRN PO 01/05/18 19:00 ([place] 5-325 Mg) 1 tab Q4H PRN PO 01/05/18 19:00 01/09/18 04:00 (Folate) 1 mg DAILY PO 01/06/18 09:00 01/11/18 08:59 01/08/18 08:18 (Vitamin B1) 100 mg DAILY PO 01/05/18 20:00 01/08/18 08:18 (Theragran M Tab) 1 tab DAILY PO 01/06/18 09:00 01/11/18 08:59 01/08/18 08:18 (Romazicon Inj) 0.2 mg Q1M PRN IV PUSH 01/05/18 19:00 (Ativan) 1 mg Q4H PRN PO 01/05/18 19:00 01/09/18 06:00 (Ativan Inj) 1 mg Q4H PRN IV PUSH 01/05/18 19:00 01/07/18 16:17 (Ativan) 2 mg Q2H PRN PO 01/05/18 19:00 (Ativan Inj) 2 mg Q2H PRN IV PUSH 01/05/18 19:00 01/07/18 08:36 (Ativan Inj) 2 mg Q1H PRN IV PUSH 01/05/18 19:00 (Ativan Inj) 2 mg Q15M PRN IV PUSH 01/05/18 19:00 (Haldol Inj) 2 mg Q15M PRN IM 01/05/18 19:00 (Oramorph Sr) 15 mg Q12HR PO 01/05/18 21:00 01/08/18 20:18 ([facility] [place] [facility] Information) 1 Q361D XX 01/05/18 20:45 01/05/18 20:45 (Chlorhexidine 2% Cloth) 3 pack Taper DAILY@04 TOP 01/06/18 04:00 01/02/19 03:59 01/07/18 04:00 (Chlorhexidine 2% Cloth) 3 pack UNSCH PRN TOP 01/05/18 20:45 (Levaquin) 750 mg DAILY@0600 PO 01/06/18 06:00 01/09/18 06:00 (Cleocin) 300 mg Q6HR PO 01/06/18 00:00 5/30/18 06:00 (Ecotrin Ec) 81 mg DAILY PO 01/06/18 10:30 01/08/18 08:18 (Protonix) 40 mg DAILY PO 01/07/18 09:00 01/08/18 08:18 (Mag-Al Plus Susp Liq) 30 ml Q6H PRN PO 01/06/18 16:00 01/08/18 18:42 (Xylocaine 2% Viscous) 15 ml Q4H PRN SWISH-SWAL 01/06/18 16:00 (Librium) 10 mg TID PO 01/06/18 16:00 01/08/18 17:41 (Tambocor) 150 mg BID PO 01/07/18 21:00 01/08/18 22:06 (Pill Splitter) 1 ea UNSCH PRN OTHER 01/07/18 13:15 (Cardizem Cd) 180 mg BID PO 01/08/18 09:00 01/08/18 22:06 (Lopressor) 150 mg BID PO 01/08/18 09:00 01/08/18 22:05 (Apresoline) 25 mg Q8HR PO 01/08/18 09:00 01/09/18 06:00 Vital Signs / I&O Vital Signs Date Time Temp Pulse Resp B/P (MAP) Pulse Ox O2 Delivery O2 Flow Rate FiO2 01/09/18 04:43 97.2 55 16 149/94 (112) 96 01/09/18 04:04 50 01/09/18 04:00 Room Air 01/09/18 00:21 56 01/09/18 00:00 Room Air 01/08/18 23:35 98.2 60 16 147/97 (114) 95 01/08/18 20:00 Room Air 01/08/18 19:55 97.7 70 16 146/97 (113) 97 01/08/18 19:46 65 01/08/18 17:05 97 21 01/08/18 16:00 97.7 69 18 135/87 (103) 97 01/08/18 16:00 64 01/08/18 12:00 97.0 62 18 134/96 (109) 97 01/08/18 12:00 62 01/08/18 10:01 95 21 I/O 01/08/18 01/08/18 01/08/18 01/09/1801/09/18 5/30/18 07:00 15:00 23:00 07:00 15:00 23:00 Intake Total 850 ml 960 ml 450 ml Output Total 800 ml 900 ml 300 ml Balance 50 ml 60 ml 150 ml Intake Oral 850 ml 960 ml 450 ml Output Urine Total 800 ml 900 ml 300 ml Physical Exam GENERAL: Well developed, well nourished. No acute distress. HEENT: Jugular venous pressure is normal. CHEST: Lungs clear to auscultation bilaterally. Unlabored respiratory effort. CARDIAC: Bradycardic regular rhythm without S3, S4, or murmur. ABDOMEN: Soft, nontender, no hepatosplenomegaly. Bowel sounds present. EXTREMITIES: No clubbing, cyanosis, or edema. Laboratory Laboratory Tests Test 01/09/18 03:57 White Blood Count 10.4 TH/MM3 Red Blood Count 4.05 MIL/MM3 Hemoglobin 13.9 GM/DL Hematocrit 39.9 % Mean Corpuscular Volume 98.5 FL Mean Corpuscular Hemoglobin 34.3 PG Mean Corpuscular Hemoglobin Concent 34.8 % Red Cell Distribution Width 17.2 % Platelet Count 346 TH/MM3 Mean Platelet Volume 8.3 FL Neutrophils (%) (Auto) 55.8 % Lymphocytes (%) (Auto) 25.2 % Monocytes (%) (Auto) 14.1 % Eosinophils (%) (Auto) 3.3 % Basophils (%) (Auto) 1.6 % Neutrophils # (Auto) 5.8 TH/MM3 Lymphocytes # (Auto) 2.6 TH/MM3 Monocytes # (Auto) 1.5 TH/MM3 Eosinophils # (Auto) 0.3 TH/MM3 Basophils # (Auto) 0.2 TH/MM3 CBC Comment DIFF FINAL Differential Comment Blood Urea Nitrogen 16 MG/DL Creatinine 0.89 MG/DL Random Glucose 112 MG/DL Albumin 3.0 GM/DL Calcium Level 8.2 MG/DL Phosphorus Level 3.4 MG/DL Magnesium Level 2.1 MG/DL Sodium Level 141 MEQ/L Potassium Level 4.0 MEQ/L Chloride Level 105 MEQ/L Carbon Dioxide Level 26.4 MEQ/L Anion Gap 10 MEQ/L Estimat Glomerular Filtration Rate 86 ML/MIN Assessment and Plan Problem List: (1) Paroxysmal atrial fibrillation ICD Codes: I48.0 - Paroxysmal atrial fibrillation Status: Chronic Plan: Appears to be back in sinus rhythm. Occasional mildly bradycardic rates. Thromboembolic risk overall low. EF 55% on echo 08/2017. REC reduce metoprolol dosing continue flecainide continue daily aspirin consider discharge later today or tomorrow; will f/u as needed (2) Wide QRS ventricular tachycardia ICD Codes: I47.2 - Ventricular tachycardia Status: Acute Plan: Stable overnight. Now back in sinus rhythm. EF 55% by echo 08/2017. REC continue metoprolol (3) Chest pain ICD Codes: R07.9 - Chest pain, unspecified Status: Chronic Plan: Chronic exceedingly atypical CP's. Negative cardiac enzymes despite prolonged constant CP. Normal annual nuclear stress tests past 3 years. Symptoms possibly GI in origin. Recommend no additional w/u at this time. (4) Hypertension ICD Codes: I10 - Essential (primary) hypertension Status: Chronic Plan: Overall suboptimal BP control. Recommend consider adding Catapres. Code Status full code Discussed Condition With patient Problem Qualifiers (1) Chest pain: Qualified Codes: R07.9 - Chest pain, unspecified (2) Hypertension: Qualified Codes: I10 - Essential (primary) hypertension Huy Almaguer MD January 09, 2018 08:24
[2018-01-09] MEDS: SODIUM CHLORIDE 0.9% FLUSH 10 ML FLUSH IV FLUSH SCH ×2 (08:25→21:00)
[2018-01-09] MEDS: FOLIC ACID 1 MG TAB PO SCH (08:25)
[2018-01-09] MEDS: PANTOPRAZOLE SOD 40 MG DELAYED RELEASE TAB PO SCH (08:25)
[2018-01-09] MEDS: METOPROLOL TARTRATE 100 MG TAB PO SCH ×2 (09:00→21:31)
[2018-01-09] MEDS: cloNIDine HCL 0.2 MG TAB PO SCH ×2 (09:55→21:30)
[2018-01-09] MEDS: LACTULOSE SYRUP 20 GM/30 ML CUP PO PRN (10:14)
[2018-01-09] MEDS ORDERED: WALKER WHEELS/F1 MIS (10:22)
--- NOTE | 2018-01-09 12:12 | HHI.PR ---
Subjective Remarks Patient says he is feeling all right, still somewhat fatigued. Denies any chest pain or shortness of breath. Denies nausea or vomiting. He says that nobody is home to let him in the house today, he will need to go tomorrow morning. Objective Vital Signs Date Time Temp Pulse Resp B/P (MAP) Pulse Ox O2 Delivery O2 Flow Rate FiO2 01/09/18 09:24 18 01/09/18 08:04 97.8 56 18 165/106 (125) 98 01/09/18 08:00 Room Air 01/09/18 04:43 97.2 55 16 149/94 (112) 96 01/09/18 04:04 50 01/09/18 04:00 Room Air 01/09/18 00:21 56 01/09/18 00:00 Room Air 01/08/18 23:35 98.2 60 16 147/97 (114) 95 01/08/18 20:00 Room Air 01/08/18 19:55 97.7 70 16 146/97 (113) 97 01/08/18 19:46 65 01/08/18 17:05 97 21 01/08/18 16:00 97.7 69 18 135/87 (103) 97 01/08/18 16:00 64 I/O 01/08/18 01/08/18 01/08/18 01/09/18 01/09/18 01/09/18 06:59 14:59 22:59 06:59 14:59 22:59 Intake Total 850 ml 960 ml 450 ml Output Total 800 ml 900 ml 300 ml Balance 50 ml 60 ml 150 ml Intake Oral 850 ml 960 ml 450 ml Output Urine Total 800 ml 900 ml 300 ml Result Diagram: 01/09/18 0357 01/09/18 0357 Objective Remarks GENERAL: Patient sleeping, wakes up for exam. Alert. SKIN: Warm and dry. HEAD: Normocephalic. EYES: No scleral icterus. No injection or drainage. NECK: Supple, trachea midline. JVD assessment difficult secondary to body habitus. CARDIOVASCULAR: Regular rate and rhythm without murmurs, gallops, or rubs. RESPIRATORY: Breath sounds equal bilaterally. No accessory muscle use. Patient does have dry crackles bilaterally, improved. GASTROINTESTINAL: Abdomen soft, non-tender, nondistended. MUSCULOSKELETAL: No cyanosis. Trace bilateral lower extremity edema. BACK: Nontender without obvious deformity. No CVA tenderness. A/P Assessment and Plan //Chest Pain: troponins are negative, had negative stress test 1 month ago. Allergy to nitro. Will defer to cardiology for further workup if warranted. Will administer Maalox and viscous lidocaine in case this is GERD. Addendum: still intractable despite maalox and lidocaine, starting protonix and consulting GI for EGD. I independently reviewed the repeat EKGs that were performed that were not uploaded into [employer] no ischemic findings noted - only improving afib rate w/ irregular rhythm. clear for d/c home from cardiology standpoint if weaned off of esmolol. Also ordering CT angio given tachyarrhythmia w/ unrelieved chest pain. = 01/07. D-dimer elevated. CT pulmonary angiogram pending. Renal function has improved. = GI also following for chest pain. = Chest pain has resolved. Appreciate GI and cardiology assistance. Cardiology recommends no workup for current chest pain. = Cardiology recommends discharge home tomorrow morning. //Cough productive of clear sputum. -since admission although patient reports a chronic cough. Rhonchi on exam, however patient is a chronic smoker. On IV fluids. Will check stat chest x-ray , BNP, labs. Hold IV fluids for now. = CT pulmonary angiogram negative for embolism. Chronic thickening, patient is a chronic smoker. Likely secondary to emphysema. //Fluid overload = 01/07 BMP in the 500s. Discontinue IV fluids. //Afib w/ RVR: successfully weaned off of esmolol drip once started on oral cardizem. With HR jumping to 130s w/ transferring and standing, i will increase Lopressor from 50 bid to 70 mg tid for now. //KIMO was likely secondary to A. fib with RVR as well as drinking alcohol, much improved with rate control and IV fluids. //Leukocytosis: improving, 2/2 stress induced = Likely stress-induced. No signs of infection currently. = Resolved. //Chronic left heel ulcer. continue home abx regimen = Continue home antibiotic regimen. Wound care orders entered. //Alcohol Abuse: //Alcohol withdrawal chronic. CIWA, Seizure Precautions, MVT/Thiamine/Folate replacement. Starting librium taper = Patient reports last alcohol drink was day before yesterday. Will continue CIWA protocol and start on scheduled Librium. Discharge Planning Pending improvement in blood pressure. Still with episodes of tachycardia. We will need cardiology, GI clearance. = PT recommends home with home health. Wheeled walker. = Continue to monitor. Plan discharge tomorrow morning. Jeffrey Maldonado MD January 09, 2018 12:12
[2018-01-09] MEDS: ALUMINUM/MAGNESIUM/SIMETH 30 ML CUP PO PRN (18:23)
[2018-01-09] MEDS: LORazepam 2 MG/ML VIAL IV PUSH PRN (19:07)
[2018-01-10] VITALS: BP 111/71; PULSE 51; RESP 20; TEMP 97.4; O2SAT 94
[2018-01-10] MEDS: LORazepam 1 MG TAB PO PRN ×2 (01:05→05:18)
[2018-01-10] MEDS: ACETAMINOPHEN/HYDROcodone 325 MG/5 MG TAB PO PRN ×2 (01:05→05:18)
[2018-01-10] MEDS: LACTULOSE SYRUP 20 GM/30 ML CUP PO PRN (01:50)
[2018-01-10 03:46] VITALS: PULSE 44
[2018-01-10] MEDS: CHLORHEXIDINE GLUCONATE 2 % 1 PACK (2 CLOTHS) TOP SCH (04:00)
[2018-01-10 05:08] VITALS: BP 99/63; PULSE 48; RESP 16; TEMP 97.8; O2SAT 95
[2018-01-10] MEDS: LEVOFLOXACIN 750 MG TAB PO SCH (05:17)
[2018-01-10] MEDS: hydrALAZINE HCL 25 MG TAB PO SCH (05:17)
[2018-01-10] MEDS: CLINDAMYCIN 150 MG CAP PO SCH ×2 (05:18)
[2018-01-10 08:04] VITALS: BP 101/73; PULSE 57; RESP 20; TEMP 98.6; O2SAT 96
[2018-01-10] MEDS ORDERED: CHLO10CA5 PO (08:56)
[2018-01-10] MEDS ORDERED: HYDR-3799 PO (08:56)
[2018-01-10] MEDS ORDERED: CLON0.1T PO (08:56)
[2018-01-10] MEDS ORDERED: METO-338 PO (08:56)
[2018-01-10] MEDS ORDERED: FLEC100T PO (08:56)
[2018-01-10] MEDS ORDERED: PANT40TA3 PO (08:56)
[2018-01-10] MEDS: DOCUSATE SODIUM 50 MG/SENNA 8.6 MG TAB PO SCH (09:00)
--- NOTE | 2018-01-10 09:19 | HHI.PR ---
Subjective Remarks Patient reports sharp epigastric postprandial pain yesterday. Improved currently. Patient reports no bowel movement in a week, however had one recorded yesterday. Has received laxatives. He denies any chest pain. Objective Vital Signs Date Time Temp Pulse Resp B/P (MAP) Pulse Ox O2 Delivery O2 Flow Rate FiO2 01/10/18 05:08 97.8 48 16 99/63 (75) 95 01/10/18 03:46 44 01/10/18 00:00 97.4 51 20 111/71 (84) 94 01/10/18 00:00 Room Air 01/09/18 23:40 47 01/09/18 20:00 97.6 49 18 119/64 (82) 94 01/09/18 20:00 Room Air 01/09/18 19:56 51 01/09/18 18:11 47 01/09/18 16:11 18 01/09/18 16:04 98.4 58 18 118/74 (89) 98 01/09/18 13:35 97 21 01/09/18 12:04 98.6 54 18 102/75 (84) 97 01/09/18 12:00 52 01/09/18 09:24 18 I/O 01/09/18 01/09/18 01/09/18 01/10/18 01/10/18 01/10/18 07:00 15:00 23:00 07:00 15:00 23:00 Intake Total 450 ml 380 ml 450 ml Output Total 300 ml 900 ml 100 ml Balance 150 ml -520 ml 350 ml Intake Oral 450 ml 380 ml 450 ml Output Urine Total 300 ml 900 ml 100 ml # Bowel Movements 1 0 Result Diagram: 01/09/18 0357 01/09/18 0357 Objective Remarks GENERAL: Awake. Alert. SKIN: Warm and dry. HEAD: Normocephalic. EYES: No scleral icterus. No injection or drainage. NECK: Supple, trachea midline. JVD assessment difficult secondary to body habitus. CARDIOVASCULAR: Regular rate and rhythm without murmurs, gallops, or rubs. RESPIRATORY: Breath sounds equal bilaterally. No accessory muscle use. GASTROINTESTINAL: Abdomen soft, non-tender, nondistended. No rebound or guarding. MUSCULOSKELETAL: No cyanosis. Trace bilateral lower extremity edema. BACK: Nontender without obvious deformity. No CVA tenderness. A/P Assessment and Plan //Chest Pain: troponins are negative, had negative stress test 1 month ago. Allergy to nitro. Will defer to cardiology for further workup if warranted. Will administer Maalox and viscous lidocaine in case this is GERD. Addendum: still intractable despite maalox and lidocaine, starting protonix and consulting GI for EGD. I independently reviewed the repeat EKGs that were performed that were not uploaded into [employer], no ischemic findings noted - only improving afib rate w/ irregular rhythm. clear for d/c home from cardiology standpoint if weaned off of esmolol. Also ordering CT angio given tachyarrhythmia w/ unrelieved chest pain. = 01/07. D-dimer elevated. CT pulmonary angiogram pending. Renal function has improved. = GI also following for chest pain. = Chest pain has resolved. Appreciate GI and cardiology assistance. Cardiology recommends no workup for current chest pain. = Discharge home. Follow-up cardiology as outpatient. //Duodenal ulcer = Is seen by GI on EGD. Continue Protonix twice daily. Biopsies negative for Helicobacter pylori. Will start Carafate. //Cough productive of clear sputum. //Chronic smoker -since admission although patient reports a chronic cough. Rhonchi on exam, however patient is a chronic smoker. On IV fluids. Will check stat chest x-ray , BNP, labs. Hold IV fluids for now. = CT pulmonary angiogram negative for embolism. Chronic thickening, patient is a chronic smoker. Likely secondary to emphysema. = Tobacco cessation counseling provided //Fluid overload = 01/07 BMP in the 500s. Discontinue IV fluids. = Resolved. //Afib w/ RVR: successfully weaned off of esmolol drip once started on oral cardizem. = Much improved on current regimen. Will continue. //KIMO was likely secondary to A. fib with RVR as well as drinking alcohol, much improved with rate control and IV fluids. //Leukocytosis: improving, 2/2 stress induced = Likely stress-induced. No signs of infection currently. = Resolved. //Chronic left heel ulcer. continue home abx regimen = Continue home antibiotic regimen. Wound care orders entered. //Alcohol Abuse: //Alcohol withdrawal chronic. CIWA, Seizure Precautions, MVT/Thiamine/Folate replacement. Starting librium taper = Patient reports last alcohol drink was day before yesterday. =Will continue CIWA protocol and start on scheduled Librium. Discharge Planning Pending improvement in blood pressure. Still with episodes of tachycardia. We will need cardiology, GI clearance. = PT recommends home with home health. Wheeled walker. = Continue to monitor. Plan discharge tomorrow morning. Jeffrey Maldonado MD January 10, 2018 09:19
--- NOTE | 2018-01-10 09:21 | HHI.DS ---
Discharge Summary Admission Date January 05, 2018 at 18:52 Discharge Date: January 10, 2018 Admitting Diagnosis Atrial fibrillation with RVR, acute kidney injury, dehydration (1) Chest pain ICD Code: R07.9 - Chest pain, unspecified Status: Chronic (2) Atrial fibrillation with RVR ICD Code: I48.91 - Unspecified atrial fibrillation (3) KIMO (acute kidney injury) ICD Code: N17.9 - Acute kidney failure, unspecified (4) Leukocytosis ICD Code: D72.829 - Elevated white blood cell count, unspecified (5) Alcohol abuse ICD Code: F10.10 - Alcohol abuse, uncomplicated Status: Chronic Procedures EGD. Please see report Brief History - From Admission This is a 62-year-old male with a PMH of Anxiety, Depression, A. fib, HTN, Chronic Left Heel Ulcer, Tobacco Abuse and Alcohol Abuse who was brought to the ER by EMS for c/o chest pain. Pt states chest pain substernal, severe, 8/10, non-radiating, worse w/ deep breath. Upon EMS arrival, pt noted to be in A-fib w/ RVR, HR 140's, BP 70's systolic. Recent admit 12/16-01/02/18 for Left Heel Ulcer s/p eval by Podiatry, d/c'd home on Clinda 300mg PO q6h and Levaquin 750mg qd. Denies fever, chills, SOB or cough. Stress Test 12/06/17 w/ no evidence of ischemia, low risk category. On arrival, BP 100/70, HR 155, O2 sat 97% on RA, Afebrile. S/p Lopressor IV x2 doses and started on Esmolol gtt. HR currently 100-110's. Denies chest pain at this time. Trop 0.02. Creatinine 3.01, previously 0.91 on 12/27/17. WBC 17. CXR w/ no acute findings. Heel ulcer w/ no erythema/drainage. CBC/BMP: 01/09/18 0357 01/09/18 0357 Significant Findings Laboratory Tests Test 01/07/18 11:21 01/08/18 05:35 01/09/18 03:57 Red Blood Count 4.13 MIL/MM3 (4.50-5.90) 4.05 MIL/MM3 (4.50-5.90) Red Cell Distribution Width 17.9 % (11.6-17.2) 17.6 % (11.6-17.2) Monocytes (%) (Auto) 16.6 % (0.0-8.0) 14.8 % (0.0-8.0) 14.1 % (0.0-8.0) Monocytes # (Auto) 1.8 TH/MM3 (0-0.9) 1.8 TH/MM3 (0-0.9) 1.5 TH/MM3 (0-0.9) Calcium Level 8.3 MG/DL (8.5-10.1) 8.2 MG/DL (8.5-10.1) Chloride Level 110 MEQ/L (98-107) B-Type Natriuretic Peptide 589 PG/ML (0-100) White Blood Count 12.2 TH/MM3 (4.0-11.0) Mean Corpuscular Hemoglobin 34.6 PG (27.0-34.0) 34.3 PG (27.0-34.0) Albumin 3.3 GM/DL (3.4-5.0) 3.0 GM/DL (3.4-5.0) Estimat Glomerular Filtration Rate 85 ML/MIN (>89) 86 ML/MIN (>89) Random Glucose 112 MG/DL (74-106) Imaging Last Impressions Chest X-Ray 01/07/18 0000 Signed Impressions: CONCLUSION: Parenchymal densities left lung are stable. CT Angiography 01/07/18 0000 Signed Impressions: CONCLUSION: 1. Negative for pulmonary embolus. Remote left chest trauma. Hospital Course patient presented with chest pain.D-dimer was elevated, CT pulmonary cholangiogram negative for pulmonary embolism, however did show left sided remote chest trauma. GI was consulted and patient underwent EGD which shows gastritis, as well as small duodenal ulcer for which patient was started on PPI which will continue. Patient was on IV fluids during admission, and did develop fluid overload, BNP in the 500s, however did not show up on chest x- ray. Resolved after discontinuation of IV fluids. Patient was found to have atrial fibrillation with RVR as well as ventricular tachycardia which was likely aberrant atrial fibrillation/flutter. Patient returned to sinus rhythm with rate control medications as per cardiology. Patient has low thromboembolic risk, and is high risk for anticoagulant secondary to chronic alcoholism. Patient was treated for alcohol withdrawal and will be sent home on benzodiazepine taper. For problem-based summary from most recent progress note, please see below. //Chest Pain: troponins are negative, had negative stress test 1 month ago. Allergy to nitro. Will defer to cardiology for further workup if warranted. Will administer Maalox and viscous lidocaine in case this is GERD. Addendum: still intractable despite maalox and lidocaine, starting protonix and consulting GI for EGD. I independently reviewed the repeat EKGs that were performed that were not uploaded into [email or web address], no ischemic findings noted - only improving afib rate w/ irregular rhythm. clear for d/c home from cardiology standpoint if weaned off of esmolol. Also ordering CT angio given tachyarrhythmia w/ unrelieved chest pain. = 01/07. D-dimer elevated. CT pulmonary angiogram pending. Renal function has improved. = GI also following for chest pain. = Chest pain has resolved. Appreciate GI and cardiology assistance. Cardiology recommends no workup for current chest pain. = Discharge home. Follow-up cardiology as outpatient. //Duodenal ulcer = Is seen by GI on EGD. Continue Protonix twice daily. Biopsies negative for Helicobacter pylori. Will start Carafate. //Cough productive of clear sputum. //Chronic smoker -since admission although patient reports a chronic cough. Rhonchi on exam, however patient is a chronic smoker. On IV fluids. Will check stat chest x-ray , BNP, labs. Hold IV fluids for now. = CT pulmonary angiogram negative for embolism. Chronic thickening, patient is a chronic smoker. Likely secondary to emphysema. = Tobacco cessation counseling provided //Fluid overload = 01/07 BMP in the 500s. Discontinue IV fluids. = Resolved. //Afib w/ RVR: successfully weaned off of esmolol drip once started on oral cardizem. = Much improved on current regimen. Will continue. //KIMO was likely secondary to A. fib with RVR as well as drinking alcohol, much improved with rate control and IV fluids. //Leukocytosis: improving, 2/2 stress induced = Likely stress-induced. No signs of infection currently. = Resolved. //Chronic left heel ulcer. continue home abx regimen = Continue home antibiotic regimen. Wound care orders entered. //Alcohol Abuse: //Alcohol withdrawal chronic. CIWA, Seizure Precautions, MVT/Thiamine/Folate replacement. Starting librium taper = Patient reports last alcohol drink was day before yesterday. =Will continue CIWA protocol and start on scheduled Librium. Discharge Planning Pending improvement in blood pressure. Still with episodes of tachycardia. We will need cardiology, GI clearance. = PT recommends home with home health. Wheeled walker. = Continue to monitor. Plan discharge tomorrow morning. Pt Condition on Discharge: Stable Discharge Disposition: Discharge Home Discharge Time: > 30 minutes Discharge Instructions DIET: Follow Instructions for: Heart Healthy Diet Activities you can perform: Weight Bearing as Lissy Follow up Referrals: Cardiology - 10 Days with Huy Almaguer MD PCP Follow-up - 1 Week New Medications: Clonidine (Clonidine) 0.1 Mg Tab 0.1 MG PO BID for Blood Pressure Management for 30 Days, #60 TAB 0 Refills Walker with Front Wheels (Walker with Front Wheels) 1 Mis Mis EA .XX DIRECTED, #[address] (Aspirin DR) 81 Mg Tabdr 81 MG PO DAILY for heart health/afib, #30 TAB Chlordiazepoxide HCl (Chlordiazepoxide HCl) 10 Mg Capsule 10 MG PO DIRECTED for Alcohol Detox, #18 CAP Take THREE Times daily for 3 Days, then TWICE daily for 3 days, then ONCE a day for 3 Days. Flecainide (Flecainide) 100 Mg Tab 150 MG PO BID for heart for 30 Days, #90 TAB Hydralazine HCl (Hydralazine HCl) 25 Mg Tablet 25 MG PO Q8HR for Blood Pressure Management for 30 Days, TAB Levofloxacin (Levaquin) 750 Mg Tablet 750 MG PO DAILY for Infection, #10 TAB Metoprolol Tartrate (Lopressor) 100 Mg Tab 100 MG PO BID for Blood Pressure Management for 30 Days, #60 TAB Pantoprazole (Pantoprazole) 40 Mg Tab 40 MG PO DAILY for Reflux for 30 Days, #30 TAB Continued Medications: Clindamycin (Cleocin) 150 Mg Cap 300 MG PO Q6H for Infection for 13 Days, #104 CAP Collagenase (Santyl) 250 Unit/Gram Oin 1 APPLIC TOPICAL DAILY for wound, #1 TUBE Lisinopril (Lisinopril) 20 Mg Tab 20 MG PO BID for Blood Pressure Management, #60 TAB 0 Refills Morphine ER (Morphine ER) 15 Mg Tab 15 MG PO Q12HR for Pain for 3 Days, #6 TAB 0 Refills Oxycodone HCl/Acetaminophen (Oxycodone-Acetaminophen 5-325) 5 Mg-325 Mg Tablet 1 TAB PO Q4H PRN for PAIN SCALE 1 TO 10 for 3 Days, #18 TAB 0 Refills Discontinued Medications: Amlodipine (Norvasc) 10 Mg Tab 10 MG PO DAILY for Blood Pressure Management, #30 TAB 0 Refills Metoprolol Tartrate (Lopressor) 50 Mg Tab 50 MG PO Q12HR for Blood Pressure Management, #60 TAB 0 Refills Jeffrey Maldonado MD January 10, 2018 09:21
[2018-01-10] MEDS ORDERED: CARA1TAB6 PO (09:23)
[2018-01-10] MEDS: METOPROLOL TARTRATE 100 MG TAB PO SCH (10:14)
[2018-01-10] MEDS: MULTIVITAMINS/MINERALS THERAPEUTIC TAB PO SCH (10:14)
[2018-01-10] MEDS: cloNIDine HCL 0.2 MG TAB PO SCH (10:15)
[2018-01-10] MEDS: FOLIC ACID 1 MG TAB PO SCH (10:15)
[2018-01-10] MEDS: ASPIRIN EC 81 MG TABEC PO SCH (10:15)
[2018-01-10] MEDS ORDERED: DOCUSATE SODIUM 50 MG/SENNA 8.6 MG TAB PO ONE (10:15)
[2018-01-10] MEDS ORDERED: MAGNESIUM CITRATE SOLN 300 ML BTL PO ONE (10:15)
[2018-01-10] MEDS: THIAMINE HCL 100 MG TAB PO SCH (10:16)
[2018-01-10] MEDS: FLECAINIDE ACETATE 100 MG TAB PO SCH (10:16)
[2018-01-10] MEDS: SODIUM CHLORIDE 0.9% FLUSH 10 ML FLUSH IV FLUSH SCH (10:17)
[2018-01-10] MEDS: MORPHINE SULFATE 15 MG CONTROLLED RELEASE TAB PO SCH (10:17)
[2018-01-10] MEDS: HEPARIN SODIUM - SQ 10,000 UNITS/ML VIAL SQ SCH (10:18)
[2018-01-10] MEDS ORDERED: SUCRALFATE 1 GM/10 ML CUP PO ONE (10:30)
[2018-01-10] MEDS ORDERED: SUCRALFATE 1 GM/10 ML CUP PO SCH (12:00)
[2018-01-10] MEDS ORDERED: PANTOPRAZOLE SOD 40 MG DELAYED RELEASE TAB PO SCH (21:00)
== END 2018-01-10 11:10 | disposition home or self-care (01) | DRG 309 ==
LOC: NEPE 16:54 → NEDA 18:52 → HCVI 21:45 → N04A 01-06 21:10
PROVIDERS: ADMIT Internal Medicine; ATTEND Internal Medicine
PROC: 0DB78ZX Excision of Stomach, Pylorus, Via Natural or Artificial Opening Endoscopic, Diagnostic (ICD-10-PCS; 2018-01-07)
PROC: 0DB58ZX Excision of Esophagus, Via Natural or Artificial Opening Endoscopic, Diagnostic (ICD-10-PCS; principal; 2018-01-07 14:03)
DX: I48.2 Chronic atrial fibrillation (principal); N17.9 Acute kidney failure, unspecified; I47.2 Ventricular tachycardia; K26.9 Duodenal ulcer, unspecified as acute or chronic, without hemorrhage or perforation; L97.429 Non-pressure chronic ulcer of left heel and midfoot with unspecified severity; E87.70 Fluid overload, unspecified; K21.9 Gastro-esophageal reflux disease without esophagitis; R55 Syncope and collapse; I10 Essential (primary) hypertension; M19.90 Unspecified osteoarthritis, unspecified site; F41.9 Anxiety disorder, unspecified; F32.9 Major depressive disorder, single episode, unspecified; E86.0 Dehydration; D72.829 Elevated white blood cell count, unspecified; F10.10 Alcohol abuse, uncomplicated; J44.9 Chronic obstructive pulmonary disease, unspecified; K20.9 Esophagitis, unspecified; R00.2 Palpitations; K29.70 Gastritis, unspecified, without bleeding; R00.1 Bradycardia, unspecified; E66.9 Obesity, unspecified; Z87.442 Personal history of urinary calculi; Z79.82 Long term (current) use of aspirin; Z72.0 Tobacco use; Z79.899 Other long term (current) drug therapy; Z68.27 Body mass index [BMI] 27.0-27.9, adult; Z90.81 Acquired absence of spleen
CPT/HCPCS: 71045; 71275; 76937; 80048; 80053; 80069; 80307; 81001; 82550; 82552; 82948; 83690; 83735; 83880; 84484; 85025; 85379; 85610; 85730; 87641; 88305; 88312; 93005; 96361; 96365; 96375; J0153; J1160; J1644; J1940; J2060; J3010; J7030; J7040; Q9967

== ENCOUNTER 2018-01-20 04:16 | Emergency (ER) | payer SELFPAY ==
[~2018-01-20] VITALS: Ht 172.7 cm; Wt 78.0 kg
[~2018-01-20 04:16] MED LIST changes: -AMLO10 PO; +CARA1TAB6 PO; -CARD2TAB PO; +CHLO10CA5 PO; +CLON0.1T PO; +ECASA81 PO; +FLEC100T PO; +HYDR-3799 PO; -LACT PO; -METO-309 PO; +METO-338 PO; +PANT40TA3 PO; +WALKER WHEELS/F1 MIS; -WHEEMIS3
[2018-01-20 04:23] VITALS: BP 135/90; PULSE 109; RESP 20; TEMP 98.4; O2SAT 99
[2018-01-20] MEDS ORDERED: AMLO2.5T PO (04:34)
[2018-01-20] MEDS ORDERED: METOPROLOL TARTRATE 5 MG/5 ML VIAL IV PUSH STA (04:54)
--- NOTE | 2018-01-20 04:59 | PD ---
HPI Chief Complaint: Chest Pain Time Seen by Provider: 04:26 Travel History International Travel<30 days: No Contact w/Intl Traveler<30days: No Traveled to known affect area: No History of Present Illness HPI 62yo M with PMH of anxiety, depression, afib, HTN presents to the ED with multiple complaints. Said his chest hurts and he is shaking and his whole body hurts as well. Pt admits to drinking alcohol. Said chest pain is midsternal, nonradiating and associated with sob. Pt denies any fever, vomiting, abdominal pain, new focal weakness or numbness. Pt was just admitted 01/05/18-01/10/18 for afib RVR, KIMO. Pt was seen by cardiology at the time too. Had CT angio negative for PE. Pt had recent stress test 12/06/17 that was negative. PFSH Past Medical History Hx Anticoagulant Therapy: Yes (ASA ) Arthritis: Yes Asthma: No Atrial Fibrillation: Yes Autoimmune Disease: No Anxiety: Yes Depression: Yes Heart Rhythm Problems: Yes (BBB, A. Fib) Cancer: No Cardiac Catheterization: No Cardiovascular Problems: Yes (A-FIB) High Cholesterol: No Chemotherapy: No Chest Pain: No Congestive Heart Failure: No COPD: Yes Cerebrovascular Accident: No Diabetes: No Diminished Hearing: No Endocrine: No Gastrointestinal Disorders: No Genitourinary: No Headaches: No Hypertension: Yes Immune Disorder: No Implanted Vascular Access Dvce: No Kidney Stones: Yes (reports passed stones) Musculoskeletal: Yes Neurologic: No Psychiatric: No Reproductive: No Respiratory: Yes Immunizations Current: Yes Migraines: No Radiation Therapy: No Seizures: Yes Shingles: Yes Sleep Apnea: No Ulcer: No Past Surgical History Abdominal Surgery: No Cardiac Surgery: No Coronary Artery Bypass Graft: No Ear Surgery: No Endocrine Surgery: No Eye Surgery: No Genitourinary Surgery: No Gynecologic Surgery: No Neurologic Surgery: No Oral Surgery: No Thoracic Surgery: No Tonsillectomy: Yes Other Surgery: Yes (Femur 1982, bilat ankles, bilat knees) Family History Family Myocardial Infarction: Yes (maternal) Social History Alcohol Use: Yes (OCC) Tobacco Use: Yes (OCC CIGAR) Substance Use: Yes (denies) Allergies-Medications (Allergen,Severity, Reaction): Coded Allergies: Sulfa (Sulfonamide Antibiotics) (Verified Allergy, Intermediate, hives, 12/16/17) cephalexin (Verified Allergy, Intermediate, hives, 12/16/17) nitroglycerin (Verified Allergy, Intermediate, RASH, 12/16/17) penicillin G (Verified Allergy, Intermediate, hives, 12/16/17) Reported Meds & Prescriptions Reported Meds & Active Scripts Active Levaquin (Levofloxacin) 750 Mg Tablet 750 Mg PO DAILY 5 Days Clonidine (Clonidine HCl) 0.1 Mg Tab 0.1 Mg PO BID 30 Days Chlordiazepoxide HCl 10 Mg Capsule 10 Mg PO DIRECTED Take THREE Times daily for 3 Days, then TWICE daily for 3 days, then ONCE a day for 3 Days. Lopressor (Metoprolol Tartrate) 100 Mg Tab 100 Mg PO BID 30 Days Flecainide (Flecainide Acetate) 100 Mg Tab 150 Mg PO BID 30 Days Walker with Front Wheels (Device) 1 Mis Mis Ea .XX DIRECTED Aspirin DR (Aspirin) 81 Mg Tabdr 81 Mg PO DAILY Lisinopril 20 Mg Tab 20 Mg PO BID Reported Amlodipine (Amlodipine Besylate) 2.5 Mg Tab 2.5 Mg PO DAILY Review of Systems Except as stated in HPI: all other systems reviewed are Neg Physical Exam Narrative GENERAL: 62yo M not in distress. SKIN: Focused skin assessment warm/dry. HEAD: Atraumatic. Normocephalic. EYES: Pupils equal and round. No scleral icterus. No injection or drainage. ENT: No nasal bleeding or discharge. Mucous membranes pink and moist. NECK: Trachea midline. No JVD. CARDIOVASCULAR: Irregular rate and rhythm at 110-115bpm. No murmur appreciated. RESPIRATORY: No accessory muscle use. Clear to auscultation. Breath sounds equal bilaterally. GASTROINTESTINAL: Abdomen soft, non-tender, nondistended. MUSCULOSKELETAL: No obvious deformities. No clubbing. No cyanosis. No edema. NEUROLOGICAL: Awake and alert. No obvious cranial nerve deficits. Motor grossly within normal limits. Normal speech. Data Data Last Documented VS Vital Signs Date Time Temp Pulse Resp B/P (MAP) Pulse Ox O2 Delivery O2 Flow Rate FiO2 01/20/18 04:27 109 20 99 Room Air 01/20/18 04:23 98.4 135/90 (105) Orders Orders Basic Metabolic Panel (Bmp) (01/20/18 04:26) Complete Blood Count With Diff (01/20/18 04:26) Prothrombin Time / Inr (Pt) (01/20/18 04:26) Act Partial Throm Time (Ptt) (01/20/18 04:26) Troponin I (01/20/18 04:26) Chest, Single Ap (01/20/18 04:26) Alcohol (Ethanol) (01/20/18 04:26) Creatine Kinase (Cpk) (01/20/18 04:26) Metoprolol Tartrate Inj (Lopressor Inj) (01/20/18 04:54) Sodium Chlor 0.9% 1000 Ml Inj (Ns 1000 M (01/20/18 05:00) Metoprolol Tartrate (Lopressor) (01/20/18 06:15) Levofloxacin (Levaquin) (01/20/18 06:45) Morphine Inj (Morphine Inj) (01/20/18 06:45) Morphine Inj (Morphine Inj) (01/20/18 07:00) Ed Discharge Order (01/20/18 06:59) Electrocardiogram (01/20/18 04:28) Labs Laboratory Tests Test 01/20/18 03:45 White Blood Count 10.6 TH/MM3 Red Blood Count 4.10 MIL/MM3 Hemoglobin 14.1 GM/DL Hematocrit 40.4 % Mean Corpuscular Volume 98.5 FL Mean Corpuscular Hemoglobin 34.4 PG Mean Corpuscular Hemoglobin Concent 34.9 % Red Cell Distribution Width 17.0 % Platelet Count 460 TH/MM3 Mean Platelet Volume 8.6 FL Neutrophils (%) (Auto) 59.3 % Lymphocytes (%) (Auto) 25.2 % Monocytes (%) (Auto) 12.1 % Eosinophils (%) (Auto) 2.2 % Basophils (%) (Auto) 1.2 % Neutrophils # (Auto) 6.3 TH/MM3 Lymphocytes # (Auto) 2.7 TH/MM3 Monocytes # (Auto) 1.3 TH/MM3 Eosinophils # (Auto) 0.2 TH/MM3 Basophils # (Auto) 0.1 TH/MM3 CBC Comment DIFF FINAL Differential Comment Prothrombin Time 10.6 SEC Prothromb Time International Ratio 1.0 RATIO Activated Partial Thromboplast Time 23.6 SEC Blood Urea Nitrogen 11 MG/DL Creatinine 0.85 MG/DL Random Glucose 107 MG/DL Calcium Level 8.4 MG/DL Sodium Level 144 MEQ/L Potassium Level 3.7 MEQ/L Chloride Level 108 MEQ/L Carbon Dioxide Level 20.9 MEQ/L Anion Gap 15 MEQ/L Estimat Glomerular Filtration Rate 91 ML/MIN Total Creatine Kinase 163 U/L Troponin I LESS THAN 0.02 NG/ML Ethyl Alcohol Level 268 MG/DL [facility] Medical Decision Making Medical Screen Exam Complete: Yes Emergency Medical Condition: Yes Interpretation(s) EKG: Afib at 110bpm. Normal axis. Nonspecific ST changes that is unchanged from prior. Differential Diagnosis Dehydration vs. ACS vs. alcohol intoxication vs. electrolyte abnormality vs. rhabdomyolysis vs. malingering Narrative Course 62yo M here with c/o chest pain. Pt was just admitted and was seen by shop tailor Dr. Almaguer on 01/09/18 for his constant chest pain. His impression was chronic exceedingly atypical chest pain. I also feel that his chest pain is atypical and he appeared to have to drinking alcohol. Labs reviewed, no leukocytosis. H/H normal. Troponin negative. CPK normal. Alcohol is elevated at 268. CXR showed multiple left sided fractures. Mild consolidation left lung base. Right lung is clear. Will cover him with levaquin since he is a chronic alcohol drinker. Pt denies taking flecainide so not worried about prolong QT. Said he is on metoprolol and amlodipine only. Pt given lopressor 2.5mg and HR has been in the low 100s. He did not take his metoprolol 100mg last night so given his usual dose as well. Pt also given morphine for pain. He is well appearing so will have pt follow up with cardiology and primary care physician as outpatient. Pt has chronic left heel wound that needs outpatient follow up. Diagnosis Primary Impression: Atypical chest pain Additional Impression: Pneumonia Qualified Codes: J18.1 - Lobar pneumonia, unspecified organism Patient Instructions: General Instructions Departure Forms: Tests/Procedures Additional Instructions: Please follow up with your primary care physician. Return to the ED if symptoms worsen. Med/Other Pt SpecificInfo: Prescription(s) given Scripts Levofloxacin (Levaquin) 750 Mg Tablet 750 MG PO DAILY for Infection for 5 Days, #5 TAB 0 Refills Prov: Helena Live 01/20/18 Disposition: 01 DISCHARGE HOME Condition: Stable LiveHelena DO Jan 20, 2018 04:59
[2018-01-20] MEDS ORDERED: SODIUM CHLOR 0.9% 1000 ML INJ 1,000 ML IV ONE (05:00)
[2018-01-20 05:18] LABS: AUTOMATED NEUTROPHIL # 6.3 TH/MM3 (1.8-7.7); BASOPHIL # 0.1 TH/MM3 (0-0.2); BASOPHIL % 1.2 % (0.0-2.0); EOSINOPHIL # 0.2 TH/MM3 (0-0.4); EOSINOPHIL % 2.2 % (0.0-4.0); HEMATOCRIT 40.4 % (39.0-51.0); HEMOGLOBIN 14.1 GM/DL (13.0-17.0); LYMPH % 25.2 % (9.0-44.0); LYMPHOCYTE # 2.7 TH/MM3 (1.0-4.8); MEAN CELL VOLUME 98.5 FL (80.0-100.0); MEAN CORPUSCULAR HEMOGLOBIN 34.4 PG (27.0-34.0); MEAN CORPUSCULAR HGB CONC 34.9 % (32.0-36.0); MEAN PLATELET VOLUME 8.6 FL (7.0-11.0); MONO % 12.1 % (0.0-8.0); MONOCYTE # 1.3 TH/MM3 (0-0.9); NEUT % 59.3 % (16.0-70.0); PLATELET COUNT 460 TH/MM3 (150-450); WHITE BLOOD COUNT 10.6 TH/MM3 (4.0-11.0)
[2018-01-20 05:27] LABS: PROTHROMBIN TIME - PATIENT 10.6 SEC (9.8-11.6)
--- NOTE | 2018-01-20 05:27 | RADRPT ---
EXAM DATE: 01/20/2018 4:50 AM EDT AGE/SEX: 62 years / Male INDICATIONS: Chest pain. CLINICAL DATA: This is the patient's initial encounter. Patient reports that signs and symptoms have been present for 1 day and indicates a pain score of 9/10. MEDICAL/SURGICAL HISTORY: Hypertension. Gastroesophageal reflux disease. Chronic obstructive p ulmonary disease. Congestive heart failure. AFIB. Splenectomy. Left femur. [place]PAR[place] [facility] [place]. . FINDINGS: There again a number of left-sided rib fractures. Mild consolidation left lung base. Right lung is cl ear. Heart and mediastinum are unremarkable. CONCLUSION: Multiple rib fractures unchanged since December 2017. Right lung is clear. Electronically signed by: Kentrell Eubanks MD 01/20/2018 5:25 AM EDT
[2018-01-20 05:36] LABS: BICARBONATE 20.9 MEQ/L (21.0-32.0); BLOOD UREA NITROGEN 11 MG/DL (7-18); CALCIUM 8.4 MG/DL (8.5-10.1); CHLORIDE 108 MEQ/L (98-107); CREATININE 0.85 MG/DL (0.60-1.30); GLOMERULAR FILTRATION RATE 91 ML/MIN (>89); GLUCOSE,RANDOM 107 MG/DL (74-106); SODIUM (NA) 144 MEQ/L (136-145)
[2018-01-20 05:39] LABS: TROPONIN I LESS THAN 0.02 NG/ML (0.02-0.05)
[2018-01-20] MEDS ORDERED: METOPROLOL TARTRATE 100 MG TAB PO ONE (06:15)
[2018-01-20] MEDS ORDERED: MORPHINE SULFATE 2 MG/ML SYRINGE IV PUSH ONE (06:45)
[2018-01-20] MEDS ORDERED: LEVOFLOXACIN 750 MG TAB PO ONE (06:45)
[2018-01-20] MEDS ORDERED: LEVA750T9 PO (06:48)
[2018-01-20] MEDS ORDERED: MORPHINE SULFATE 4 MG/ML INJ IV PUSH ONE (07:00)
--- NOTE | 2018-01-20 14:30 | EKG ---
Date Performed: 01/20/2018 Time Performed: 04:28:39 PTAGE: 62 years EKG: SINUS TACHYCARDIA ST DEVIATION AND MODERATE T-WAVE ABNORMALITY, CONSIDER INFERIOR ISCHEMIA ABNORMAL ECG NO PREVIOUS TRACING DOCTOR: Larry Schwartz Interpretating Date/Time 01/20/2018 14:27:39
== END 2018-01-20 07:48 | disposition home or self-care (01) ==
LOC: NEPC 04:16
DX: R07.89 Other chest pain (principal); J18.1 Lobar pneumonia, unspecified organism; I48.91 Unspecified atrial fibrillation; J44.9 Chronic obstructive pulmonary disease, unspecified; I10 Essential (primary) hypertension; Z88.2 Allergy status to sulfonamides; Z88.0 Allergy status to penicillin; Z87.442 Personal history of urinary calculi
CPT/HCPCS: 71045; 80048; 80307; 82550; 84484; 85025; 85610; 85730; 93005; 96361; 96374; 96375; 99285; J2270; J7030

== ENCOUNTER 2018-02-21 01:07 | Inpatient (IN) ==
[2018-02-21] MEDS ORDERED: Sodium Chlor 0.9% Inj 500 ML IV.SIG ONE (01:25)
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
[2018-02-21 01:57] LABS: Baso # (Auto) 0.1 th/mm3 (0.0-0.2); Baso % (Auto) 1.2 % (0.0-2.0); Eos # (Auto) 0.2 th/mm3 (0.0-0.4); Eos % (Auto) 2.8 % (0.0-4.0); Hematocrit 46.7 % (39.0-51.0); Lymph # (Auto) 2.6 th/mm3 (1.0-4.8); Lymph % (Auto) 32.4 % (9.0-44.0); Mean Corpuscular HGB Conc 34.3 % (32.0-36.0); Mean Corpuscular Hemoglobin 35.9 pg (27.0-34.0); Mean Corpuscular Volume 104.6 fL (80.0-100.0); Mono # (Auto) 1.3 th/mm3 (0.0-0.9); Mono % (Auto) 16.3 % (0.0-8.0); Neut # (Auto) 3.7 th/mm3 (1.8-7.7); Neut % (Auto) 47.3 % (16.0-70.0); Platelet Count 264 th/mm3 (150-450); Red Blood Count 4.46 mil/mm3 (4.50-5.90); White Blood Count 7.9 th/mm3 (4.0-11.0)
[2018-02-21 02:04] LABS: Activated Partial Thrombo Time 23.6 sec (24.3-30.1); Prothrombin Time 10.3 sec (9.8-11.6)
--- NOTE | 2018-02-21 02:33 | XR ---
EXAM DATE: 02/21/2018 2:08 AM EDT AGE/SEX: 62 years / Male INDICATIONS: Chest pain X 1hour CLINICAL DATA: This is the patient's initial encounter. Patient reports that signs and symptoms have been present for 1 day and indicates a pain score of 3/10. MEDICAL/SURGICAL HISTORY: . Hypertension. Gastroesophageal reflux disease. Chronic obstructive pulmonary disease. Congestive heart failure. AFIB . Splenectomy. Left femur ORIF. Left ankle ORIF. COMPARISON: [facility] – [place], CHEST SINGLE AP, 01/20/2018. . FINDINGS: Mild airspace disease in the left lower lung zone similar to prior exam. The cardiomediastinal contou rs are unremarkable. Multiple old left-sided rib fractures. CONCLUSION: 1. No acute abnormality or significant interval change. Electronically signed by: Leonard Donahue MD 02/21/2018 2:32 AM EDT
[2018-02-21 02:39] LABS: Lipase 183 U/L (73-393)
--- NOTE | 2018-02-21 02:42 | XR ---
EXAM DATE: 02/21/2018 2:10 AM EDT AGE/SEX: 62 years / Male INDICATIONS: Trauma. CLINICAL DATA: This is the patient's initial encounter. Patient reports that signs and symptoms have been present for 1 day and indicates a pain score of 2/10. MEDICAL/SURGICAL HISTORY: . Hypertension. Gastroesophageal reflux disease. Chronic obstructive pulmonary disease. Congestive heart failure. AFIB. Splenectomy . Splenectomy. Left femur. [place] [facility] [place][id number][place] 12/15/2017. . FINDINGS: Hardware is again noted in the distal tibia and fibula. Visualized hardware appear grossly intact. Os seous structures appear intact without acute bony fracture or significant bony destruction. Degenerat jordi changes are again noted most prominently in the first metatarsophalangeal joint. Improved soft ti ssue ulceration in the heel. CONCLUSION: 1. Improved soft tissue ulceration in the heel. 2. Stable hardware in the distal tibia and fibula. 3. No acute fracture or bony destruction. Electronically signed by: Leonard Donahue MD 02/21/2018 2:41 AM EDT
[2018-02-21] MEDS ORDERED: Morphine Inj 4 MG/ML Vial IV.PUSH ONE (02:48)
[2018-02-21] MEDS ORDERED: Vancomycin Inj 1 GM/200 ML PIGGYBACK IV.SIG ONE (02:57)
[2018-02-21 03:07] LABS: Alcohol 331 mg/dL (0-5)
[2018-02-21 04:36] LABS: Amphetamine Screen,Urine Neg (Neg); Barbiturate Screen,Urine Neg (Neg); Cannabinoid Screen,Urine Neg (Neg); Cocaine Screen,Urine Neg (Neg)
[2018-02-21 04:39] LABS: Bilirubin,Urine Negative (Negative); Clarity,Urine Hazy (Clear); Color,Urine Amber (Yellw/Straw); Glucose,Urine (UA) 50 mg/dL (Negative); Hyaline Casts,Urine 6 /lpf (0-3); Leukocyte Esterase,Urine Negative (Negative); Mucus,Urine Few /lpf (Occasional); Nitrite,Urine Negative (Negative); Specific Gravity,Urine 1.033 (1.002-1.035); Urobilinogen,Urine 4 or Greater mg/dL (Less than 2)
[2018-02-21 04:42] LABS: Opiate Screen,Urine Neg (Neg)
[2018-02-21] MEDS ORDERED: Ketorolac Inj 30 MG/ML (IVP) Vial IV.PUSH ONE (05:54)
[2018-02-21] MEDS ORDERED: Acetaminophen 325 MG Tablet PO PRN (06:03)
[2018-02-21] MEDS ORDERED: Bisacodyl 10 MG Supp RECTAL PRN (06:03)
[2018-02-21] MEDS: Sod Chloride 0.9% Inj 1,000 ML IV.CONT SCH ×2 (06:12→16:23)
[2018-02-21] MEDS ORDERED: Vancomycin Consult Pharmacy 1 EACH OTHER SCH (07:00)
[2018-02-21] MEDS ORDERED: Lisinopril 20 MG Tablet PO ONE (08:05)
[2018-02-21] MEDS ORDERED: Haloperidol Inj 5 MG/ML Ampul IV.PUSH PRN (08:21)
[2018-02-21 08:57] LABS: Troponin I 0.03 ng/mL (0.02-0.05)
[2018-02-21] MEDS ORDERED: Vancomycin Inj 1,000 MG in Sodium Chlor 0.9% Inj 250 ML IV.SIG ONE (09:00)
[2018-02-21] MEDS: Aspirin 325 MG Tablet PO SCH (09:11)
[2018-02-21] MEDS: amLODIPine 5 MG Tablet PO SCH (09:12)
[2018-02-21] MEDS: Senna/Docusate Sodium 8.6/50 MG Tablet PO SCH ×2 (09:13→22:01)
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
[2018-02-21 10:24] LABS: Alanine Aminotransferase 40 U/L (12-78); Albumin 3.9 g/dL (3.4-5.0); Anion Gap 21 meq/L (5-15); Aspartate Aminotransferase 77 U/L (15-37); Blood Urea Nitrogen 19 mg/dL (7-18); Calcium 9.6 mg/dL (8.5-10.1); Carbon Dioxide 15.3 meq/L (21.0-32.0); Chloride 108 meq/L (98-107); Glomerular Filtration Rate 71 mL/min (>89); Glucose,Random 86 mg/dL (74-106); Potassium 3.5 meq/L (3.5-5.1); Sodium 144 meq/L (136-145)
[2018-02-21 10:28] LABS: Alkaline Phosphatase 105 U/L (45-117); Creatine Kinase 153 U/L (39-308); Troponin I 0.04 ng/mL (0.02-0.05)
--- NOTE | 2018-02-21 13:21 | ECG ---
Date Performed: 02/21/2018 Time Performed: 08:06:03 PTAGE: 62 years EKG: SINUS TACHYCARDIA ST DEVIATION AND MODERATE T-WAVE ABNORMALITY, CONSIDER LATERAL ISCHEMIA S T DEVIATION AND MODERATE T-WAVE ABNORMALITY, CONSIDER INFERIOR ISCHEMIA ABNORMAL ECG Since the PREVIOUS TRACING , no significant change noted PREVIOUS TRACING DOCTOR: Wade Cohen Interpretating Date/Time 02/21/2018 13:17:04
--- NOTE | 2018-02-21 13:21 | ECG ---
Date Performed: 02/21/2018 Time Performed: 01:19:35 PTAGE: 62 years EKG: SINUS TACHYCARDIA ST DEVIATION AND MODERATE T-WAVE ABNORMALITY, CONSIDER LATERAL ISCHEMIA S T DEVIATION AND MODERATE T-WAVE ABNORMALITY, CONSIDER INFERIOR ISCHEMIA ABNORMAL ECG Since the PREVIOUS TRACING , no significant change noted PREVIOUS TRACIN01/20/2018 04.28 DOCTOR: Wade Cohen Interpretating Date/Time 02/21/2018 13:16:54
[2018-02-21 14:54] LABS: Troponin I 0.02 ng/mL (0.02-0.05)
[2018-02-21] MEDS ORDERED: Vancomycin Inj 1,000 MG in Sodium Chlor 0.9% Inj 250 ML IV.SIG SCH (16:00)
[2018-02-21] MEDS: LORazepam 1 MG Tablet PO PRN (17:13)
[2018-02-22] MEDS: Sod Chloride 0.9% Inj 1,000 ML IV.CONT SCH ×3 (01:53→23:31)
[2018-02-22] MEDS: Vancomycin Inj 1,300 MG in Sodium Chlor 0.9% Inj 500 ML IV.SIG SCH ×2 (02:08→17:21)
[2018-02-22 07:37] LABS: Baso % (Auto) 0.6 % (0.0-2.0); Eos # (Auto) 0.3 th/mm3 (0.0-0.4); Hematocrit 39.4 % (39.0-51.0); Hemoglobin 13.3 gm/dL (13.0-17.0); Lymph # (Auto) 0.8 th/mm3 (1.0-4.8); Lymph % (Auto) 9.8 % (9.0-44.0); Mean Corpuscular HGB Conc 33.8 % (32.0-36.0); Mean Corpuscular Hemoglobin 35.9 pg (27.0-34.0); Mean Corpuscular Volume 106.2 fL (80.0-100.0); Mean Platelet Volume 9.5 fL (7.0-11.0); Mono # (Auto) 1.4 th/mm3 (0.0-0.9); Mono % (Auto) 17.8 % (0.0-8.0); Neut # (Auto) 5.2 th/mm3 (1.8-7.7); Neut % (Auto) 67.8 % (16.0-70.0); Platelet Count 214 th/mm3 (150-450); Red Blood Count 3.71 mil/mm3 (4.50-5.90); Red Cell Distribution Width 19.9 % (11.6-17.2); White Blood Count 7.7 th/mm3 (4.0-11.0)
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
[2018-02-22 08:06] LABS: Anion Gap 11 meq/L (5-15); Blood Urea Nitrogen 14 mg/dL (7-18); Calcium 8.4 mg/dL (8.5-10.1); Carbon Dioxide 23.9 meq/L (21.0-32.0); Chloride 104 meq/L (98-107); Glomerular Filtration Rate Greater Than 89 mL/min (>89); Glucose,Random 86 mg/dL (74-106); Potassium 3.6 meq/L (3.5-5.1); Sodium 139 meq/L (136-145)
--- NOTE | 2018-02-22 08:43 | P.PN ---
Subjective Interval history: Follow up for left heel ulcer, alcohol withdrawal. The patient reports continued pain at the left heel ulcer, requesting norco dosing be increased. He reports surrounding erythema and edema throughout the foot and ankle. Denies fevers/chills. He reports feeling tremulous and requesting ativan for alcohol withdrawal. He has no other medical complaints at this time including no chest pain, shortness of breath, or abdominal complaints. Physical Exam Vital signs: Vital Signs 02/21/18 09:16 02/21/18 10:07 02/21/18 11:29 Temperature Pulse Rate 118 H 111 H 109 H Respiratory Rate 20 20 Blood Pressure 179/110 H 172/96 H 176/109 H Pulse Oximetry 96 96 02/21/18 15:35 02/21/18 16:00 02/21/18 16:57 Temperature 97.8 F 97.3 F L Pulse Rate 110 H 111 H Respiratory Rate 20 18 Blood Pressure 190/110 H 206/118 H 182/108 H Pulse Oximetry 95 97 02/21/18 18:32 02/21/18 20:00 02/22/18 00:00 Temperature 97.8 F 97.5 F L Pulse Rate 100 H 95 H Respiratory Rate 16 18 Blood Pressure 181/107 H 157/110 H 188/115 H Pulse Oximetry 96 96 02/22/18 04:00 02/22/18 08:25 Temperature 97.5 F L 98.2 F Pulse Rate 93 H 70 Respiratory Rate 18 20 Blood Pressure 176/96 H 190/100 H Pulse Oximetry 94 L 98 Intake & Output 02/21/18 02/22/18 02/22/18 18:59 06:59 18:59 Intake Total 950 / 950 769.5 / 769.5 Balance 950 / 950 769.5 / 769.5 Intake: IV 950 / 950 769.5 / 769.5 NS Inj 500 ML @ 250 mls/hr IV. 500 / 500 SIG ONCE ONE Rx#:[id number] Vancomycin Inj 1 gm In 200 ml @ 200 / 200 200 mls/hr IV.SIG ONCE ONE Rx# :[id number] Vancomycin Inj 1,000 MG In NS 250 / 250 Inj 250 ML @ 250 mls/hr IV.SIG ONCE ONE Rx#:[id number] Vancomycin Inj 1,300 MG In NS 769.5 / 769.5 Inj 500 ML @ 256.5 mls/hr IV. SIG Q12H EVETTE Rx#:[id number] Other: # Voids 3 Date of Last Bowel Movement 02/20/18 Narrative: GENERAL: Well-nourished, well-developed middle aged male patient in [facility]. SKIN: Warm and dry. No rash. HEENT: Normocephalic. Atraumatic. Pupils equal and round. Mucous membranes pink and moist. CARDIOVASCULAR: Regular rate and rhythm. No murmur appreciated. RESPIRATORY: No accessory muscle use. Clear to auscultation. Breath sounds equal bilaterally. GASTROINTESTINAL: Abdomen soft, non-tender, nondistended. Normoactive bowel sounds x4. MUSCULOSKELETAL: No obvious deformities. Extremities without clubbing, cyanosis , or edema. LLE with large 4cm at posterior lateral heel with surrounding erythema, edema throughout the foot and ankle. NEUROLOGICAL: Awake and alert. No obvious cranial nerve deficits. Motor grossly within normal limits. Moving all extremities spontaneously. Normal speech. PSYCHIATRIC: Appropriate mood and affect; insight and judgment normal. Results - Labs CBC & Chem 7: 02/22/18 06:35 02/22/18 06:35 Laboratory Results - last 24 hr 02/21/18 02/21/18 02/21/18 01:26 08:00 13:50 WBC RBC Hgb Hct MCV MCH MCHC RDW Plt Count MPV Neut % (Auto) Lymph % (Auto) Giles % (Auto) Eos % (Auto) Baso % (Auto) Neut # (Auto) Lymph # (Auto) Giles # (Auto) Eos # (Auto) Baso # (Auto) WBC Differential Differential Comment Sodium 144 Potassium 3.5 Chloride 108 H Carbon Dioxide 15.3 L Anion Gap 21 H BUN 19 H Creatinine 1.05 Estimated GFR 71 L Random Glucose 86 Calcium 9.6 Magnesium 2.0 Total Bilirubin 0.5 AST 77 H ALT 40 Alkaline Phosphatase 105 Total Creatine Kinase 153 144 110 CK-MB (CK-2) 2.0 Troponin I 0.04 0.03 0.02 Total Protein 8.0 Albumin 3.9 02/22/18 02/22/18 06:35 06:35 WBC 7.7 RBC 3.71 L Hgb 13.3 D Hct 39.4 MCV 106.2 H MCH 35.9 H MCHC 33.8 RDW 19.9 H Plt Count 214 MPV 9.5 Neut % (Auto) 67.8 Lymph % (Auto) 9.8 Giles % (Auto) 17.8 H Eos % (Auto) 4.0 Baso % (Auto) 0.6 Neut # (Auto) 5.2 Lymph # (Auto) 0.8 L Giles # (Auto) 1.4 H Eos # (Auto) 0.3 Baso # (Auto) 0.0 WBC Differential . Differential Comment Auto diff final Sodium 139 Potassium 3.6 Chloride 104 Carbon Dioxide 23.9 Anion Gap 11 BUN 14 Creatinine 0.67 Estimated GFR Greater than 89 Random Glucose 86 Calcium 8.4 L D Magnesium Total Bilirubin AST ALT Alkaline Phosphatase Total Creatine Kinase CK-MB (CK-2) Troponin I Total Protein Albumin Microbiology 02/21/18 01:30 Wound - Heel Gram Stain - Final Assessment and Plan - Assessment (1) Ulcer of left heel Code(s): L97.429 - Non-pressure chronic ulcer of left heel and midfoot with unspecified severity Status: Acute (2) Generalized pain Code(s): R52 - Pain, unspecified Status: Acute (3) Alcohol abuse with intoxication Code(s): F10.129 - Alcohol abuse with intoxication, unspecified Status: Acute - Plan 62-year-old male alcoholic who presented for falls complaining of generalized body ache. Patient has a chronic heel ulcer that he states has been getting worse, becoming more painful and draining. Left heel ulcer: per the patient, getting worse, with erythema/edema/foul odor/ drainage. -X-ray of the foot noted improvement in soft tissue ulceration compared to prior imaging. -Patient has failed to follow-up outpatient with wound care. He does not follow with a precision structural metal fitter. -Consulted podiatry, appreciate assistance -Foot MRI pending -Continue on IV Vanco with pharmacy consult. Generalized body ache: Including chest pain, abdominal pain, leg pain -I suspect the patient keeps falling due to chronic alcohol abuse. Recently had negative cardiac workup. Pain is resolving. -Pain medication as needed. Patient counseled extensively to stop drinking alcohol. Alcohol dependence: acute, drinks a pint or more of Vodka daily -Continue CIWA -thiamine/folate/MV -Patient counseled extensively DVT Prophylaxis: teds/SCDs to RLE; avoid chemoprophylaxis incase surgery warranted.
[2018-02-22] MEDS: Aspirin 325 MG Tablet PO SCH (09:01)
[2018-02-22] MEDS: amLODIPine 5 MG Tablet PO SCH (09:02)
[2018-02-22] MEDS: Lisinopril 20 MG Tablet PO SCH (09:03)
[2018-02-22] MEDS: Senna/Docusate Sodium 8.6/50 MG Tablet PO SCH ×2 (09:03→20:19)
[2018-02-22] MEDS: LORazepam 1 MG Tablet PO PRN (09:03)
[2018-02-22] MEDS: Multivitamin/Minerals Therapeutic Tablet PO SCH (14:40)
[2018-02-22] MEDS: Folic Acid 1 MG Tablet PO SCH (14:40)
--- NOTE | 2018-02-22 14:54 | MR ---
EXAM DATE: 02/22/2018 10:36 AM EDT AGE/SEX: 62 years / Male INDICATIONS: Osteomyelitis. Wound left heel. CLINICAL DATA: This is the patient's subsequent encounter. Patient reports that signs and symptoms h ave been present for 3 weeks and indicates a pain score of 4/10. MEDICAL/SURGICAL HISTORY: Hypertension. . Left ankle fracture. COMPARISON: [facility] [place], MRI FOOT LEFT W/O CONTRAST, 12/16/2017. . TECHNIQUE: Multiplanar, multisequence MRI examination was performed without contrast. FINDINGS: Bones: The calcaneus remains intact without evidence of destructive, erosive or edematous changes. Th ere are no characteristic findings of osteomyelitis. Increasing edema is identified in the talus along the talar dome. Osteochondral lesions along the art iculating surface of the talus have increased in number and size. Small joint effusion is noted. Post surgical changes following fixation are again identified. Joint Spaces: Increasing arthropathy of the tibiotalar joint with joint space narrowing, increasing o steochondral defects and progressing talar bone marrow edema. Tendons: The flexor tendons are intact. Soft Tissues: Focal ulcer is identified along the heel. There is underlying edematous inflammatory ch anges within the soft tissues which extends to the calcaneal surface. Other: The plantar fascia is intact. No signal abnormalities are seen in the plantar musculature. CONCLUSION: 1. No evidence of calcaneal osteomyelitis associated with the overlying heel ulceration. 2. Increasing tibiotalar arthropathy with progressing osteochondral lesions and bone marrow edema as described. 3. Soft tissue inflammation and ulceration along the heel pad. Electronically signed by: Ted Verma MD 02/22/2018 2:53 PM EDT
--- NOTE | 2018-02-22 18:03 | ECG ---
Date Performed: 02/21/2018 Time Performed: 13:07:43 PTAGE: 62 years EKG: SINUS TACHYCARDIA ST DEVIATION AND MODERATE T-WAVE ABNORMALITY, CONSIDER LATERAL ISCHEMIA S T DEVIATION AND MODERATE T-WAVE ABNORMALITY, CONSIDER INFERIOR ISCHEMIA ABNORMAL ECG PREVIOUS TRACING : 02/21/2018 08.06 Since the previous tracing, no significant change noted DOCTOR: Larry Schwartz Interpretating Date/Time 02/22/2018 18:03:06
[2018-02-23] MEDS ORDERED: Pharmacy Ordered Lab Info OTHER ONE (01:45)
[2018-02-23] MEDS: Vancomycin Inj 1,300 MG in Sodium Chlor 0.9% Inj 500 ML IV.SIG SCH (05:50)
--- NOTE | 2018-02-23 09:41 | P.PN ---
Subjective Interval history: Follow up for left heel ulcer, alcohol withdrawal. The patient is sleeping upon my arrival, awakens to voice. He complains of pain at the left heel, requesting pain medication. Denies any fevers/chills. Reports continued tremors, relieved by librium and ativan. Denies any other medical complaints at this time. Physical Exam Vital signs: Vital Signs 02/22/18 12:05 02/22/18 12:40 02/22/18 15:46 Temperature 97.9 F 98.2 F 98.2 F Pulse Rate 86 80 70 Respiratory Rate 20 18 20 Blood Pressure 154/102 H 154/102 H 160/104 H Pulse Oximetry 97 96 97 02/22/18 20:00 02/22/18 23:40 02/23/18 00:51 Temperature 97.7 F 98.2 F 97.7 F Pulse Rate 86 79 73 Respiratory Rate 18 16 15 Blood Pressure 196/108 H 192/116 H 154/103 H Pulse Oximetry 98 97 100 02/23/18 03:06 02/23/18 04:36 02/23/18 08:28 Temperature 97.7 F 97.8 F Pulse Rate 74 68 Respiratory Rate 18 16 20 Blood Pressure 163/105 H 148/68 H Pulse Oximetry 96 98 Intake & Output 02/22/18 02/23/18 02/23/18 18:59 06:59 18:59 Intake Total 240 / 240 1753 / 1753 Output Total 500 / 500 550 / 550 Balance -260 / -260 1203 / 1203 Intake: IV 1513 / 1513 NS Inj 1,000 ML @ 100 mls/hr IV 1000 / 1000 .CONT .Q10H [facility] Rx#:[id number] Vancomycin Inj 1,300 MG In NS 513 / 513 Inj 500 ML @ 256.5 mls/hr IV. SIG Q12H [facility] Rx#:[id number] Oral 240 / 240 240 / 240 Output: Urine 500 / 500 550 / 550 Other: # Voids 3 Date of Last Bowel Movement 02/20/18 02/20/18 Narrative: GENERAL: Well-nourished, well-developed middle aged male patient in [facility]. SKIN: Warm and dry. No rash. HEENT: Normocephalic. Atraumatic. Pupils equal and round. Mucous membranes pink and moist. CARDIOVASCULAR: Regular rate and rhythm. No murmur appreciated. RESPIRATORY: No accessory muscle use. Clear to auscultation. Breath sounds equal bilaterally. GASTROINTESTINAL: Abdomen soft, non-tender, nondistended. Normoactive bowel sounds x4. MUSCULOSKELETAL: No obvious deformities. Extremities without clubbing, cyanosis , or edema. LLE with large 4cm at posterior lateral heel with surrounding erythema, mild edema throughout the foot and ankle. NEUROLOGICAL: Awake and alert. No obvious cranial nerve deficits. Motor grossly within normal limits. Moving all extremities spontaneously. Normal speech. PSYCHIATRIC: Appropriate mood and affect; insight and judgment normal. Results - Labs CBC & Chem 7: 02/22/18 06:35 02/22/18 06:35 Laboratory Results - last 24 hr 02/23/18 04:45 Vancomycin Trough 11.2 H Microbiology 02/21/18 01:30 Wound - Heel Gram Stain - Final 02/21/18 01:30 Wound - Heel Wound Culture - Preliminary Staphylococcus species 02/21/18 03:20 Blood - Peripheral Aerobic Blood Culture - Preliminary No growth in 1 day 02/21/18 03:20 Blood - Peripheral Anaerobic Blood Culture - Preliminary No growth in 1 day 02/21/18 03:20 Blood - Peripheral Aerobic Blood Culture - Preliminary No growth in 1 day 02/21/18 03:20 Blood - Peripheral Anaerobic Blood Culture - Preliminary No growth in 1 day - Imaging Impressions Foot MRI 02/22/18 00:00 CONCLUSION: 1. No evidence of calcaneal osteomyelitis associated with the overlying heel ulceration. 2. Increasing tibiotalar arthropathy with progressing osteochondral lesions and bone marrow edema as described. 3. Soft tissue inflammation and ulceration along the heel pad. Assessment and Plan - Assessment (1) Ulcer of left heel Code(s): L97.429 - Non-pressure chronic ulcer of left heel and midfoot with unspecified severity Status: Acute (2) Generalized pain Code(s): R52 - Pain, unspecified Status: Acute (3) Alcohol abuse with intoxication Code(s): F10.129 - Alcohol abuse with intoxication, unspecified Status: Acute - Plan 62-year-old male alcoholic who presented for falls complaining of generalized body ache. Patient has a chronic heel ulcer that he states has been getting worse, becoming more painful and draining. Left heel ulcer: per the patient, getting worse, with erythema/edema/foul odor/ drainage. -X-ray of the foot noted improvement in soft tissue ulceration compared to prior imaging. -Patient has failed to follow-up outpatient with wound care. 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 -Consulted podiatry, appreciate assistance -Foot MRI reviewed, no evidence of osteo, shows soft tissue inflammation and ulceration at the heel pad -Wound culture with MRSA, awaiting sensitivities -Continue on IV Vanco with pharmacy consult. Generalized body ache: Including chest pain, abdominal pain, leg pain. Recent trauma in with ongoing chronic amadeo. -I suspect the patient keeps falling due to chronic alcohol abuse. Recently had negative cardiac workup. Pain is resolving. -Pain medication as needed. Patient counseled extensively to stop drinking alcohol. Alcohol dependence: acute, drinks a pint or more of Vodka daily -Continue CIWA -thiamine/folate/MV -Patient counseled extensively DVT Prophylaxis: teds/SCDs to RLE; avoid chemoprophylaxis incase surgery warranted. Discharge Planning: Discharge when cleared by podiatry. Awaiting wound culture and sensitivities.
[2018-02-23] MEDS: Lisinopril 20 MG Tablet PO SCH (09:47)
[2018-02-23] MEDS: Folic Acid 1 MG Tablet PO SCH (09:47)
[2018-02-23] MEDS: Aspirin 325 MG Tablet PO SCH (09:48)
[2018-02-23] MEDS: amLODIPine 10 MG Tablet PO SCH (09:48)
[2018-02-23] MEDS: Multivitamin/Minerals Therapeutic Tablet PO SCH (09:48)
[2018-02-23] MEDS: Sod Chloride 0.9% Inj 1,000 ML IV.CONT SCH ×3 (09:51→22:39)
[2018-02-23] MEDS: Senna/Docusate Sodium 8.6/50 MG Tablet PO SCH ×2 (12:53→20:23)
[2018-02-23] MEDS: Vancomycin Inj 1,750 MG in Sodium Chlor 0.9% Inj 500 ML IV.SIG SCH (15:47)
[2018-02-23] MEDS: LORazepam 1 MG Tablet PO PRN (20:24)
[2018-02-23] MEDS: Temazepam 15 MG Capsule PO PRN (21:37)
[2018-02-24] MEDS: Vancomycin Inj 1,750 MG in Sodium Chlor 0.9% Inj 500 ML IV.SIG SCH ×2 (03:05→14:35)
[2018-02-24] MEDS: amLODIPine 10 MG Tablet PO SCH (09:46)
[2018-02-24] MEDS: Aspirin 325 MG Tablet PO SCH (09:46)
[2018-02-24] MEDS: Folic Acid 1 MG Tablet PO SCH (09:46)
[2018-02-24] MEDS: Lisinopril 20 MG Tablet PO SCH (09:47)
[2018-02-24] MEDS: Multivitamin/Minerals Therapeutic Tablet PO SCH (09:47)
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
[2018-02-24] MEDS: Senna/Docusate Sodium 8.6/50 MG Tablet PO SCH ×2 (11:16→21:04)
--- NOTE | 2018-02-24 14:05 | P.PNPOD ---
Subjective Interval history: complaining of chronic foot and rib pain, no events Physical Exam Vital signs: Vital Signs 02/23/18 16:12 02/23/18 20:00 02/24/18 02:56 Temperature 98.7 F 97.8 F Pulse Rate 72 91 H 89 Respiratory Rate 20 18 18 Blood Pressure 148/60 H 191/102 H 194/114 H Pulse Oximetry 96 96 95 02/24/18 07:35 02/24/18 11:40 Temperature 98.7 F 97.9 F Pulse Rate 74 77 Respiratory Rate 14 14 Blood Pressure 186/108 H 184/112 H Pulse Oximetry 96 95 Intake & Output 02/23/18 02/24/18 02/24/18 18:59 06:59 18:59 Intake Total 151.5 / 1517.5 Balance 1517.5 / 1517.5 Weight 105 kg Intake: IV 1517.5 / 1517.5 NS Inj 1,000 ML @ 100 mls/hr IV 1000 / 1000 1000 / 1000 .CONT .Q10H [facility] Rx#:[id number] Vancomycin Inj 1,750 MG In NS 1017.5 / 1017.5 517.5 / 517.5 Inj 500 ML @ 250 mls/hr IV.SIG Q12H [facility] Rx#:[id number] Other: # Voids 1 Date of Last Bowel Movement 02/20/18 02/23/18 Narrative: Left heel- mainly granular posterior heel ulcer approx 4cm x5cm 2-3mm deep no redness no exposed bone, pulses palpable, good ROm foot and ankle joints, sensation intact Medications and Allergies Active Medications: Active Medications Acetaminophen (Tylenol) 650 mg PO Q4H PRN PRN Reason: headache/fever/pain1-2 Hydrocodone Bitart/Acetaminophen (Seaman 7.5/325) 1 tab PO Q4H PRN PRN Reason: pain scale 3-10 Last Admin: 02/24/18 09:47 Dose: 1 tab Al Hydroxide/Mg Hydroxide (Milk Of Magnesia Liq) 30 ml PO Q12H PRN PRN Reason: Mild Constipation Amlodipine Besylate (Norvasc) 10 mg PO DAILY [facility] Last Admin: 02/24/18 09:46 Dose: 10 mg Aspirin (Aspirin) 325 mg PO DAILY [facility] Last Admin: 02/24/18 09:46 Dose: 325 mg Bisacodyl (Dulcolax Supp) 10 mg RECTAL DAILY PRN PRN Reason: SEVERE CONSITIPATION Chlordiazepoxide (Librium) 10 mg PO Q6H [facility] Last Admin: 02/24/18 09:46 Dose: 10 mg Clonidine HCl (Catapres) 0.1 mg PO Q6H PRN PRN Reason: SEE LABEL COMMENTS Last Admin: 02/24/18 03:05 Dose: 0.1 mg Flumazenil (Romazecon Inj) 0.2 mg IV.PUSH Q1M PRN PRN Reason: OVERSEDATION Folic Acid (Folic Acid) 1 mg PO DAILY [facility] Stop: 02/27/18 13:44 Last Admin: 02/24/18 09:46 Dose: 1 mg Haloperidol Lactate (Haldol Inj) 1 mg IV.PUSH Q15M PRN PRN Reason: for severe agitation Pharmacy Profile Note (Vancomycin Consult Pharmacy) 0 mls @ 0 mls/hr OTHER UNSCH [facility] Vancomycin HCl 1,750 mg/ (Sodium Chloride) 517.5 mls @ 250 mls/hr IV.SIG Q12H [facility] Last Infusion: 02/24/18 06:41 Dose: Infused Lactulose (Lactulose Liq) 30 ml PO DAILY PRN PRN Reason: SEVERE CONSITIPATION Lisinopril (Prinivil) 40 mg PO DAILY [facility] Last Admin: 02/24/18 09:47 Dose: 40 mg Lorazepam (Ativan) 2 mg PO Q2H PRN PRN Reason: for CIWA 11-14 Lorazepam (Ativan Inj) 2 mg IV.PUSH Q2H PRN PRN Reason: for CIWA 11-14 Last Admin: 02/22/18 23:52 Dose: 2 mg Lorazepam (Ativan Inj) 2 mg IV.PUSH Q1H PRN PRN Reason: for CIWA 15-20 Lorazepam (Ativan Inj) 2 mg IV.PUSH Q15M PRN PRN Reason: for CIWA > 20 Lorazepam (Ativan Inj) 1 mg IV.PUSH Q4H PRN PRN Reason: for CIWA 8-10 Last Admin: 02/22/18 02:00 Dose: 1 mg Lorazepam (Ativan) 1 mg PO Q4H PRN PRN Reason: for CIWA 8-10 Last Admin: 02/23/18 20:24 Dose: 1 mg Metoprolol Succinate (Toprol Xl) 25 mg PO DAILY [facility] Last Admin: 02/24/18 09:47 Dose: 25 mg Miscellaneous Information ([facility] Ordered Lab Info) 0 each OTHER ONCE ONE Stop: 02/25/18 01:46 Multivitamins/Minerals (Theragran-M) 1 tab PO DAILY [facility] Stop: 02/27/18 13:44 Last Admin: 02/24/18 09:47 Dose: 1 tab Ondansetron HCl (Zofran Odt) 4 mg PO Q6H PRN PRN Reason: nausea/vomiting Last Admin: 02/22/18 14:29 Dose: 4 mg Senna/Docusate Sodium (Desi-Colace) 1 tab PO BID [facility] Last Admin: 02/24/18 11:16 Dose: Not Given Sennosides (Senokot) 17.2 mg PO Q12H PRN PRN Reason: Moderate Constipation Sodium Chloride (Ns Flush) 2 ml IV.FLUSH UNSCH PRN PRN Reason: FLUSH AFTER USING IV ACCESS Temazepam (Restoril) 15 mg PO HS PRN PRN Reason: INSOMNIA Last Admin: 02/23/18 21:37 Dose: 15 mg Thiamine HCl (Vitamin B1) 100 mg PO DAILY [facility] Last Admin: 02/24/18 09:46 Dose: 100 mg Allergies Allergy/AdvReac Type Severity Reaction Status Date / Time cephalexin Allergy Intermediate hives Verified 02/21/18 13:47 nitroglycerin Allergy Intermediate RASH Verified 02/21/18 13:47 penicillin G Allergy Intermediate hives Verified 02/21/18 13:47 Sulfa (Sulfonamide Allergy Intermediate hives Verified 02/21/18 13:47 Antibiotics) Home Medications Medication Instructions Recorded Confirmed Type amlodipine 2.5 mg PO DAILY 02/21/18 02/21/18 History aspirin 325 mg PO DAILY 02/21/18 02/21/18 History lisinopril 20 mg PO DAILY 02/21/18 02/21/18 History metoprolol succinate 12.5 mg PO DAILY 02/21/18 02/21/18 History Results - Labs CBC & Chem 7: 02/22/18 06:35 02/22/18 06:35 Microbiology 02/21/18 03:20 Blood - Peripheral Aerobic Blood Culture - Preliminary No growth in 3 days 02/21/18 03:20 Blood - Peripheral Anaerobic Blood Culture - Preliminary No growth in 3 days 02/21/18 03:20 Blood - Peripheral Aerobic Blood Culture - Preliminary No growth in 3 days 02/21/18 03:20 Blood - Peripheral Anaerobic Blood Culture - Preliminary No growth in 3 days 02/21/18 01:30 Wound - Heel Gram Stain - Final 02/21/18 01:30 Wound - Heel Wound Culture - Final S. aureus MRSA Assessment and Plan - Assessment (1) Ulcer of left heel Code(s): L97.429 - Non-pressure chronic ulcer of left heel and midfoot with unspecified severity Status: Acute - [facility] reviewed. Ordered CAM boot to offload heel ulcer, topical ABX, and PO ABX. Discussed case with medicine team. Reconsult PRN
[2018-02-24] MEDS ORDERED: Vancomycin Inj 1,750 MG in Sodium Chlor 0.9% Inj 500 ML IV.SIG SCH (15:00)
[2018-02-24] MEDS ORDERED: Vancomycin Consult Pharmacy 1 EACH OTHER SCH (15:00)
[2018-02-24] MEDS: Temazepam 15 MG Capsule PO PRN (23:28)
[2018-02-25] MEDS ORDERED: Pharmacy Ordered Lab Info OTHER ONE (01:45)
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
[2018-02-25] MEDS: amLODIPine 10 MG Tablet PO SCH (09:38)
[2018-02-25] MEDS: Aspirin 325 MG Tablet PO SCH (09:38)
[2018-02-25] MEDS: Folic Acid 1 MG Tablet PO SCH (09:38)
[2018-02-25] MEDS: Lisinopril 20 MG Tablet PO SCH (09:39)
[2018-02-25] MEDS: Multivitamin/Minerals Therapeutic Tablet PO SCH (09:39)
[2018-02-25 10:18] LABS: Glomerular Filtration Rate Greater Than 89 mL/min (>89)
--- NOTE | 2018-02-25 10:39 | XR ---
EXAM DATE: 02/25/2018 10:20 AM EDT AGE/SEX: 62 years / Male INDICATIONS: Painful respirations. CLINICAL DATA: This is the patient's subsequent encounter. Patient reports that signs and symptoms h ave been present for 4 - 6 days and indicates a pain score of 6/10. MEDICAL/SURGICAL HISTORY: . Hypertension. Gastroesophageal reflux disease. Chronic obstructive pulmonary disease. Congestive heart failure. AFIB. . Splenectomy. Left femur ORIF. Left ankle ORIF. COMPARISON: [facility] [place], CHEST 1V SINGLE AP, 02/21/2018. [facility] [place], CT PULMONARY ANGIOGRAM, 01/07/2018. . FINDINGS: Single upright AP view of the chest demonstrates a normal size cardiac silhouette. No pleural effusio n or pneumothorax is identified. There is stable interstitial change in the left midlung zone. There are multiple old X left-sided rib fractures. No acute osseous abnormality is identified. CONCLUSION: Stable chest x-ray without an acute finding identified. Suspected scar remains present in the left mi dlung zone. Multiple old left rib fractures remain visualized. Electronically signed by: Jung Scales MD 02/25/2018 10:37 AM EDT
[2018-02-25] MEDS: Senna/Docusate Sodium 8.6/50 MG Tablet PO SCH ×2 (11:19→23:27)
--- NOTE | 2018-02-25 11:21 | XR ---
EXAM DATE: 02/25/2018 10:18 AM EDT AGE/SEX: 62 years / Male INDICATIONS: Left rib pain. CLINICAL DATA: This is the patient's initial encounter. Patient reports that signs and symptoms have been present for 4 - 6 days and indicates a pain score of 5/10. MEDICAL/SURGICAL HISTORY: . Hypertension. Gastroesophageal reflux disease. Chronic obstructive pulmonary disease. Congestive heart failure. AFIB. . Splenectomy. Left femur ORIF. Left ankle ORIF. COMPARISON: [facility] [place], CHEST SINGLE AP, 01/05/2018. . FINDINGS: Multiple old healed rib fractures are seen on the left. There is no evidence for acute fracture. The re is no pneumothorax. CONCLUSION: Multiple old healed rib fractures on the left. Electronically signed by: Kiley Gong MD 02/25/2018 11:20 AM EDT
[2018-02-25] MEDS: Lidocaine 5% Patch T-DERMAL SCH (12:08)
[2018-02-25] MEDS: Heparin - SQ 10,000 UNITS/ML Vial SQ SCH (21:59)
[2018-02-25] MEDS: Temazepam 15 MG Capsule PO PRN (22:19)
[2018-02-26] MEDS: Heparin - SQ 10,000 UNITS/ML Vial SQ SCH ×3 (06:46→21:02)
[2018-02-26] MEDS: Lidocaine 5% Patch T-DERMAL SCH (08:45)
[2018-02-26] MEDS: Multivitamin/Minerals Therapeutic Tablet PO SCH (08:45)
[2018-02-26] MEDS: Aspirin 325 MG Tablet PO SCH (08:46)
[2018-02-26] MEDS: Senna/Docusate Sodium 8.6/50 MG Tablet PO SCH ×2 (08:46→21:03)
[2018-02-26] MEDS: Lisinopril 20 MG Tablet PO SCH (08:47)
[2018-02-26] MEDS: Folic Acid 1 MG Tablet PO SCH (08:47)
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
--- NOTE | 2018-02-26 11:21 | P.PNWCN ---
Wound Care Nurse Consult Description: Consult for wound management of heel per Dr Hidalgo Recommendation: Follow dressing change orders per Dr Hidalgo. Wound care does not carry out routine daily dressing changes. Additional information: Patient not seen for heel wound. Please defer to Dr Hidalgo orders.
[2018-02-26] MEDS ORDERED: Lidocaine 5% Patch T-DERMAL SCH (18:15)
[2018-02-26] MEDS: hydrALAZINE 25 MG Tablet PO SCH (21:04)
[2018-02-26] MEDS: Temazepam 15 MG Capsule PO PRN (23:23)
[2018-02-27] MEDS: Heparin - SQ 10,000 UNITS/ML Vial SQ SCH (05:33)
[2018-02-27 06:23] LABS: Baso # (Auto) 0.1 th/mm3 (0.0-0.2); Eos # (Auto) 0.3 th/mm3 (0.0-0.4); Eos % (Auto) 4.3 % (0.0-4.0); Hematocrit 44.4 % (39.0-51.0); Lymph # (Auto) 1.9 th/mm3 (1.0-4.8); Lymph % (Auto) 28.5 % (9.0-44.0); Mean Corpuscular HGB Conc 33.9 % (32.0-36.0); Mean Corpuscular Hemoglobin 35.8 pg (27.0-34.0); Mean Corpuscular Volume 105.8 fL (80.0-100.0); Mean Platelet Volume 8.8 fL (7.0-11.0); Mono # (Auto) 1.3 th/mm3 (0.0-0.9); Mono % (Auto) 19.2 % (0.0-8.0); Neut # (Auto) 3.2 th/mm3 (1.8-7.7); Platelet Count 216 th/mm3 (150-450); Red Cell Distribution Width 19.1 % (11.6-17.2); White Blood Count 6.8 th/mm3 (4.0-11.0)
[2018-02-27 06:44] LABS: Anion Gap 11 meq/L (5-15); Blood Urea Nitrogen 16 mg/dL (7-18); Calcium 9.4 mg/dL (8.5-10.1); Carbon Dioxide 23.1 meq/L (21.0-32.0); Chloride 105 meq/L (98-107); Glomerular Filtration Rate Greater Than 89 mL/min (>89); Glucose,Random 106 mg/dL (74-106); Potassium 3.5 meq/L (3.5-5.1); Sodium 139 meq/L (136-145)
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
[2018-02-27] MEDS: Senna/Docusate Sodium 8.6/50 MG Tablet PO SCH (10:33)
[2018-02-27] MEDS: hydrALAZINE 25 MG Tablet PO SCH (10:34)
[2018-02-27] MEDS: Folic Acid 1 MG Tablet PO SCH (10:34)
[2018-02-27] MEDS: Multivitamin/Minerals Therapeutic Tablet PO SCH (10:35)
[2018-02-27] MEDS: Aspirin 325 MG Tablet PO SCH (10:36)
[2018-02-27] MEDS ORDERED: Lidocaine 5% Patch T-DERMAL SCH (11:00)
[2018-02-27] MEDS: Lisinopril 20 MG Tablet PO SCH (11:10)
== END 2018-02-27 15:17 | disposition home or self-care (01) ==
LOC: NEDA 01:07 → NEPC 01:07 → NEPGCP 12:36
PROVIDERS: ADMIT Internal Medicine; ATTEND Internal Medicine
DX: B95.62 Methicillin resistant Staphylococcus aureus infection as the cause of diseases classified elsewhere; I10 Essential (primary) hypertension; I48.91 Unspecified atrial fibrillation; F10.20 Alcohol dependence, uncomplicated; F41.9 Anxiety disorder, unspecified; L97.429 Non-pressure chronic ulcer of left heel and midfoot with unspecified severity; F32.9 Major depressive disorder, single episode, unspecified; F17.290 Nicotine dependence, other tobacco product, uncomplicated

== ENCOUNTER 2018-06-04 21:53 | Inpatient (IN) ==
[2018-06-04] MEDS ORDERED: Tetanus/Diphtheria Toxoid Adult Vaccine Inj 0.5 ML Vial IM ONE (22:16)
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
[2018-06-04 22:43] LABS: Baso # (Auto) 0.1 th/mm3 (0.0-0.2); Baso % (Auto) 1.2 % (0.0-2.0); Eos # (Auto) 0.1 th/mm3 (0.0-0.4); Hematocrit 42.5 % (39.0-51.0); Hemoglobin 14.6 gm/dL (13.0-17.0); Lymph # (Auto) 1.8 th/mm3 (1.0-4.8); Lymph % (Auto) 25.7 % (9.0-44.0); Mean Corpuscular HGB Conc 34.3 % (32.0-36.0); Mean Corpuscular Hemoglobin 36.8 pg (27.0-34.0); Mean Corpuscular Volume 107.3 fL (80.0-100.0); Mean Platelet Volume 8.8 fL (7.0-11.0); Mono % (Auto) 14.1 % (0.0-8.0); Neut # (Auto) 3.9 th/mm3 (1.8-7.7); Platelet Count 221 th/mm3 (150-450); Red Blood Count 3.96 mil/mm3 (4.50-5.90); Red Cell Distribution Width 15.1 % (11.6-17.2); White Blood Count 6.9 th/mm3 (4.0-11.0)
--- NOTE | 2018-06-04 22:46 | XR ---
EXAM DATE: 06/04/2018 10:16 PM EDT AGE/SEX: 63 years / Male INDICATIONS: Evaluate lung status. Patient fell. CLINICAL DATA: This is the patient's initial encounter. Patient reports that signs and symptoms have been present for 1 day and indicates a pain score of 4/10. MEDICAL/SURGICAL HISTORY: None. None. COMPARISON: [facility], RIBS LEFT MIN 3V W EXP CHEST, 02/25/2018. . FINDINGS: A single AP view of the chest demonstrates the lungs to be symmetrically aerated without evidence of mass, infiltrate or effusion. The cardiomediastinal contours are unremarkable. Multiple old displace d left-sided rib fractures. I do not see an acute osseous injury.. CONCLUSION: 1. Multiple old, displaced left-sided rib fractures. 2. No acute fracture. Lungs are grossly clear. Electronically signed by: Chance Hall MD 06/04/2018 10:44 PM EDT
[2018-06-04 22:54] LABS: Activated Partial Thrombo Time 23.6 sec (24.3-30.1); INR 1.1 Ratio; Prothrombin Time 10.8 sec (9.8-11.6)
--- NOTE | 2018-06-04 23:07 | XR ---
EXAM DATE: 06/04/2018 10:25 PM EDT AGE/SEX: 63 years / Male INDICATIONS: Left elbow pain. Patient fell. CLINICAL DATA: This is the patient's initial encounter. Patient reports that signs and symptoms have been present for 1 day and indicates a pain score of 6/10. MEDICAL/SURGICAL HISTORY: None. None. COMPARISON: No prior exams available for comparison. FINDINGS: There is an elbow effusion. There is a 1 cm bony density seen adjacent to the lateral condyle. This a ppears fairly well-corticated. This most closely resembles chronic hypertrophic change. There also ap pears to be some chronic hypertrophic change at the medial aspect of the lateral radial head, proxima l ulna, at the coronoid process, and at the anterior and posterior aspects of the distal humerus. An acute fracture is not clearly identified. There is soft tissue swelling seen posteriorly. CONCLUSION: Elbow effusion. This is frequently seen with a fracture however an acute fracture is not clearly iden tified. Suspect chronic hypertrophic change around the elbow. This includes a bony density seen adjacent to t he lateral epicondyle. Electronically signed by: Jung Robertson MD 06/04/2018 11:06 PM EDT
[2018-06-05 00:08] LABS: Alanine Aminotransferase 41 U/L (12-78); Albumin 3.1 g/dL (3.4-5.0); Anion Gap 9 meq/L (5-15); Aspartate Aminotransferase 85 U/L (15-37); Blood Urea Nitrogen 12 mg/dL (7-18); Calcium 7.7 mg/dL (8.5-10.1); Carbon Dioxide 27.9 meq/L (21.0-32.0); Chloride 111 meq/L (98-107); Glomerular Filtration Rate Greater Than 89 mL/min (>89); Glucose,Random 98 mg/dL (74-106); Potassium 3.8 meq/L (3.5-5.1); Sodium 148 meq/L (136-145)
[2018-06-05 00:10] LABS: Alkaline Phosphatase 86 U/L (45-117); Total Protein 6.5 g/dL (6.4-8.2)
[2018-06-05 00:15] LABS: Alcohol 362 mg/dL (0-5)
[2018-06-05] MEDS ORDERED: Acetaminophen 325 MG Tablet PO ONE (00:15)
--- NOTE | 2018-06-05 01:15 | CT ---
EXAM DATE: 06/05/2018 12:00 AM EDT AGE/SEX: 63 years / Male INDICATIONS: Found unresponsive. CLINICAL DATA: This is the patient's initial encounter. Patient reports that signs and symptoms have been present for 1 day and indicates a pain score of Nonresponsive. MEDICAL/SURGICAL HISTORY: Non-responsive. Non-responsive. RADIATION DOSE: 64.89 CTDI (mGy) COMPARISON: No prior exams available for comparison. TECHNIQUE: Contiguous images in the axial and coronal planes were obtained using helical multirow de tector technique. Using automated exposure control and adjustment of the mA and/or kV according to p atient size, radiation dose was kept as low as reasonably achievable to obtain optimal diagnostic pooja lity images. DICOM format image data is available electronically for review and comparison. FINDINGS: Orbits: There is fracturing of the orbital floor on the right. There is fracturing through the later al aspect of the right orbit. This fracture extends into the anterior aspect of the right zygomatic a rch. This fracture the midportion of the zygomatic arch on the right. There is right orbital emphysem a. Nasal Bone: There is fracturing of the base of the right nasal bone. Zygomatic Arches: There is fracturing at the midportion and anterior aspect of the right zygomatic a rch. Sinuses: There is fracturing of the anterior medial and posterior lateral aspects of the right maxil josselyn bone/sinus. The fracture extends through the superior alveolar ridge the inferior aspect of the maxilla on the right. There appears to be fracturing at the superior aspect of the right pterygoid pl ate. The left pterygoid plate is intact. There is increased density seen throughout the right maxilla ry sinus. There is mucosal disease at the periphery of the left maxillary sinus. There is minimal flu id or mucosal disease in the posterior right frontal sinus and anterior ethmoid air cells being worse on the right. There is minimal mucosal disease at the anterior medial and posterior medial aspects o f the right sphenoid sinus. There is a 6 mm focal area of sclerosis likely related to an osteoma see n just superior to the left frontal sinus. Nasal Cavity: The nasal septum is deviated to the right. The lacrimal ducts are intact. Soft Tissues: There is prominent right periorbital and facial soft tissue swelling. Intracranial: No intracranial air seen. Cribriform Plate: Grossly intact. CONCLUSION: 1. Right orbital fractures involving the orbital floor and the lateral orbit. 2. Fracturing of the right maxillary sinus. The fracture extends into the inferior aspect of the rig ht maxilla and into the superior alveolar ridge. 3. Fracturing of the superior aspect of the right pterygoid plate. 4. Fracturing of the right zygomatic arch. 5. Fracturing of the base of the right nasal bone. Electronically signed by: Jung Robertson MD 06/05/2018 1:14 AM EDT
--- NOTE | 2018-06-05 01:19 | CT ---
EXAM DATE: 06/05/2018 12:00 AM EDT AGE/SEX: 63 years / Male INDICATIONS: Found unresponsive. CLINICAL DATA: This is the patient's initial encounter. Patient reports that signs and symptoms have been present for 1 day and indicates a pain score of Nonresponsive. MEDICAL/SURGICAL HISTORY: Non-responsive. Non-responsive. RADIATION DOSE: 60.43 CTDI (mGy) COMPARISON: No prior exams available for comparison. TECHNIQUE: CT of the head without contrast. Using automated exposure control and adjustment of the mA and/or kV according to patient size, radiation dose was kept as low as reasonably achievable to ob tain optimal diagnostic quality images. DICOM format image data is available electronically for revi ew and comparison. FINDINGS: Cerebrum: There is a small subdural hemorrhage seen over the right frontal and anterior right tempor al lobe measuring up to 3 mm. There appears to be some possible subarachnoid hemorrhage within the zaragoza lci over the mid right temporal sulci. The ventricles are normal for age. No evidence of midline sanchez ft, mass lesion, hemorrhage or acute infarction. No extraaxial fluid collections are seen. Posterior Fossa: The cerebellum and brainstem are intact. The 4th ventricle is midline. The cerebe llopontine angle is unremarkable. Extracranial: There is right periorbital soft tissue swelling and right orbital fracturing. The heather ent is to have CT of the facial bones. Skull: The calvaria is intact. No evidence of skull fracture. CONCLUSION: 1. Mild right frontal and temporal subdural hemorrhage measuring up to 3 mm. Midline shift is not se en. 2. Suspected small area of subarachnoid hemorrhage as sulci at the mid right temporal lobe. . Electronically signed by: Jung Robertson MD 06/05/2018 1:18 AM EDT
--- NOTE | 2018-06-05 01:23 | CT ---
EXAM DATE: 06/05/2018 12:00 AM EDT AGE/SEX: 63 years / Male INDICATIONS: Found unresponsive. CLINICAL DATA: This is the patient's initial encounter. Patient reports that signs and symptoms have been present for 1 day and indicates a pain score of Nonresponsive. MEDICAL/SURGICAL HISTORY: Non-responsive. Non-responsive. RADIATION DOSE: 25.72 CTDI (mGy) COMPARISON: No prior exams available for comparison. TECHNIQUE: Contiguous axial images were obtained using helical multirow detector technique. The vol umetric data was post-processed with multiplanar reconstruction in oblique axial, sagittal, and coron al planes. Using automated exposure control and adjustment of the mA and/or kV according to patient s ize, radiation dose was kept as low as reasonably achievable to obtain optimal diagnostic quality cory ges. DICOM format image data is available electronically for review and comparison. FINDINGS: Vertebrae: Normal vertebral body height. Alignment: Normal. No subluxation. C2-3: The bony spinal canal is normal in size. No evidence of disc bulge or herniation. The neural foramina are bilaterally patent. C3-4: The bony spinal canal is normal in size. No evidence of disc bulge or herniation. The neural foramina are bilaterally patent. There is bilateral facet hypertrophy being worse on the right. C4-5: The bony spinal canal is normal in size. No evidence of disc bulge or herniation. The neural foramina are bilaterally patent. There is slight widening of the right facet joint. C5-6: The disc demonstrates decreased height. There is mild diffuse disc bulge and osteophytic ridgi ng. There is uncovertebral hypertrophy. There is narrowing of the neural foramina bilaterally. C6-7: The disc demonstrates decreased height. There is mild diffuse disc bulge and osteophytic ridgi ng. There is uncovertebral hypertrophy. There is narrowing of the neural foramina bilaterally. There is mild facet hypertrophy. C7-T1: The bony spinal canal is normal in size. No evidence of disc bulge or herniation. The neura l foramina are bilaterally patent. CONCLUSION: 1. No acute bony abnormalities seen. 2. Degenerative changes described above. Electronically signed by: Jung Robertson MD 06/05/2018 1:22 AM EDT
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
[2018-06-05] MEDS ORDERED: Clindamycin 600 mg/NS Premix 600 MG/50 ML PIGGYBACK IV.SIG ONE (01:49)
[2018-06-05] MEDS ORDERED: Morphine Inj 4 MG/ML Vial IV.PUSH ONE (01:49)
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
[2018-06-05] MEDS ORDERED: Potassium Chloride Inj 10 MEQ in Sod Chloride 0.9% Inj 1,000 ML IV.CONT SCH (03:00)
[2018-06-05] MEDS: Morphine Inj 4 MG/ML Vial IV.PUSH PRN ×4 (03:35→19:39)
[2018-06-05] MEDS: Sod Chloride 0.9% Inj 1,000 ML IV.CONT SCH ×2 (05:45→16:05)
[2018-06-05] MEDS: Pantoprazole Inj 40 MG Vial IV.PUSH SCH (05:52)
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
--- NOTE | 2018-06-05 09:24 | CT ---
EXAM DATE: 06/05/2018 8:25 AM EDT AGE/SEX: 63 years / Male INDICATIONS: Follow up bleed CLINICAL DATA: This is the patient's initial encounter. Patient reports that signs and symptoms have been present for 1 day and indicates a pain score of 5/10. MEDICAL/SURGICAL HISTORY: Hypertension. Splenectomy. RADIATION DOSE: 39.33 CTDI (mGy) COMPARISON: [facility] [place], CT HEAD W/O CONTRAST, 06/05/2018. . TECHNIQUE: CT of the head without contrast. Using automated exposure control and adjustment of the mA and/or kV according to patient size, radiation dose was kept as low as reasonably achievable to ob tain optimal diagnostic quality images. DICOM format image data is available electronically for revi ew and comparison. FINDINGS: Cerebrum: Evolving subtle 2 mm right frontal and 5 mm temporal subdural hematomas. Evolving subdural blood products in the right temporal mid convexity level that are not as apparent on current exam. Mo derate diffuse cerebral atrophy. The ventricles are midline and stable in size. No evidence of midlin e shift, mass lesion, or acute infarction. No extraaxial fluid collections are seen. Posterior Fossa: The cerebellum and brainstem are intact. The 4th ventricle is midline. The cerebe llopontine angle is unremarkable. Extracranial: The visualized portion of the orbits is intact. Skull: Partially imaged right nasal and orbital fractures as noted on prior CT exam. CONCLUSION: 1. Evolving small 2 mm right frontal and 5 mm right temporal subdural hematomas. 2. Less apparent evolving subdural blood products in the right temporal mid convexities. 3. No intercurrent new hemorrhage, hydrocephalus or midline shift. . Electronically signed by: Leonard Donahue MD 06/05/2018 9:22 AM EDT
[2018-06-05] MEDS ORDERED: LORazepam 1 MG Tablet PO PRN (09:32)
[2018-06-05] MEDS ORDERED: Haloperidol Inj 5 MG/ML Ampul IV.PUSH PRN (09:32)
[2018-06-05] MEDS: Senna/Docusate Sodium 8.6/50 MG Tablet PO SCH ×2 (09:58→22:19)
[2018-06-05] MEDS: Multivitamin Inj 10 ML, Thiamine Inj 100 MG, Folic Acid Inj 1 MG in Sodium Chlor 0.9% I... IV.SIG SCH (09:58)
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
[2018-06-06] MEDS: Morphine Inj 4 MG/ML Vial IV.PUSH PRN ×2 (00:27→06:43)
[2018-06-06] MEDS: Sod Chloride 0.9% Inj 1,000 ML IV.CONT SCH ×2 (01:02→13:46)
[2018-06-06] MEDS: Pantoprazole Inj 40 MG Vial IV.PUSH SCH (05:13)
[2018-06-06 08:46] LABS: Baso # (Auto) 0.1 th/mm3 (0.0-0.2); Baso % (Auto) 0.8 % (0.0-2.0); Eos # (Auto) 0.3 th/mm3 (0.0-0.4); Eos % (Auto) 2.6 % (0.0-4.0); Hematocrit 36.8 % (39.0-51.0); Hemoglobin 12.8 gm/dL (13.0-17.0); Lymph # (Auto) 1.4 th/mm3 (1.0-4.8); Lymph % (Auto) 13.3 % (9.0-44.0); Mean Corpuscular HGB Conc 34.9 % (32.0-36.0); Mean Corpuscular Hemoglobin 36.7 pg (27.0-34.0); Mean Corpuscular Volume 105.1 fL (80.0-100.0); Mean Platelet Volume 9.8 fL (7.0-11.0); Mono # (Auto) 2.4 th/mm3 (0.0-0.9); Mono % (Auto) 23.1 % (0.0-8.0); Neut # (Auto) 6.2 th/mm3 (1.8-7.7); Neut % (Auto) 60.2 % (16.0-70.0); Platelet Count 164 th/mm3 (150-450); Red Cell Distribution Width 15.1 % (11.6-17.2); White Blood Count 10.2 th/mm3 (4.0-11.0)
[2018-06-06] MEDS ORDERED: levETIRAcetam 500 MG Tablet PO SCH (09:00)
[2018-06-06 09:17] LABS: Albumin 3.2 g/dL (3.4-5.0); Anion Gap 13 meq/L (5-15); Aspartate Aminotransferase 55 U/L (15-37); Blood Urea Nitrogen 9 mg/dL (7-18); Calcium 7.9 mg/dL (8.5-10.1); Carbon Dioxide 26.2 meq/L (21.0-32.0); Chloride 99 meq/L (98-107); Glomerular Filtration Rate Greater Than 89 mL/min (>89); Glucose,Random 74 mg/dL (74-106); Potassium 3.6 meq/L (3.5-5.1); Sodium 138 meq/L (136-145)
[2018-06-06] MEDS: Lidocaine 5% Patch T-DERMAL SCH (09:21)
[2018-06-06] MEDS: Senna/Docusate Sodium 8.6/50 MG Tablet PO SCH ×2 (09:21→20:05)
[2018-06-06 09:27] LABS: Alanine Aminotransferase 30 U/L (12-78); Alkaline Phosphatase 80 U/L (45-117); Total Protein 6.4 g/dL (6.4-8.2)
--- NOTE | 2018-06-06 10:22 | P.PNNS ---
Subjective Interval history: Pt awakens to voice. Complains of headaches bilaterally temporal area. Has nausea. Complains of numbness in left arm from elbow down. <Kevin Godoy - Last Filed: 06/06/18 10:14> Physical Exam Vital signs: Vital Signs 06/05/18 11:57 06/05/18 14:52 06/05/18 20:00 Temperature 98.2 F Pulse Rate 119 H 116 H 106 H Respiratory Rate 18 24 20 Blood Pressure 193/116 H 187/96 H 189/104 H Pulse Oximetry 98 96 06/05/18 20:53 06/05/18 22:57 06/06/18 00:00 Temperature 98 F Pulse Rate 107 H Respiratory Rate 18 20 Blood Pressure 171/110 H Pulse Oximetry 93 L 94 L 06/06/18 04:00 06/06/18 04:48 06/06/18 04:59 Temperature 97.1 F L Pulse Rate 107 H 107 H Respiratory Rate 20 18 20 Blood Pressure 152/97 H Pulse Oximetry 96 06/06/18 08:00 06/06/18 09:00 Temperature 98.0 F Pulse Rate 105 H 83 Respiratory Rate 16 12 Blood Pressure 148/92 H Pulse Oximetry 96 Intake & Output 06/05/18 06/06/18 06/06/18 18:59 06:59 18:59 Intake Total 1616.2 / 1616.2 607 / 607 Output Total 500 / 500 Balance 1616.2 / 1616.2 107 / 107 Weight 116.12 kg Intake: IV 1616.2 / 1616.2 607 / 607 NS Inj 1,000 ML @ 100 mls/hr IV 1000 / 1000 250 / 250 .CONT .Q10H [facility] Rx#:[id number] MVI-12 Inj 10 ML Thiamine Inj 511.2 / 511.2 100 MG Folvite Inj 1 MG In NS Inj 500 ML @ 127.8 mls/hr IV. SIG DAILY [facility] Rx#:[id number] Keppra Inj 500 MG In NS Inj 100 105 / 105 105 / 105 ML @ 400 mls/hr IV.SIG Q12H [facility] Rx#:[id number] Output: Urine 500 / 500 Other: Date of Last Bowel Movement 06/04/18 06/04/18 - Constitutional no acute distress, obese, cooperative - Routine HEENT Exam Head: Absent: atraumatic (Right facial abrasions and ecchymosis.) Eye: Present: PERRL (Pupils 3mm bilaterally reactive bilaterally.) - Routine Neck Exam Present: trachea midline - Routine Respiratory Exam Present: CTA bilaterally. Absent: respiratory distress, rhonchi, wheezes - Routine Cardiovascular Exam Present: RRR, S1, S2. Absent: murmur - Routine Abdominal Exam Present: normoactive bowel sounds. Absent: distended, firm - Routine Skin Exam Present: ecchymosis (Right periorbital and face.). Absent: cyanosis, erythema - Routine Neurological Exam Present: moving all extremities, normal speech. Absent: alert (wakes up with verbal stimulation.), motor deficit - Detailed Neurological Exam: Coma Scale Eye Opening: To sound Verbal Response: Confused Motor Response: Obey commands [place] Coma Scale Total: 13 - Routine Psychiatric Exam Present: cooperative. Absent: anxious, agitated <Kevin Godoy - Last Filed: 06/06/18 10:14> Vital signs: Vital Signs 06/05/18 14:52 06/05/18 20:00 06/05/18 20:53 Temperature 98.2 F Pulse Rate 116 H 106 H Respiratory Rate 24 20 Blood Pressure 187/96 H 189/104 H Pulse Oximetry 96 93 L 06/05/18 22:57 06/06/18 00:00 06/06/18 04:00 Temperature 98 F 97.1 F L Pulse Rate 107 H 107 H Respiratory Rate 18 20 20 Blood Pressure 171/110 H 152/97 H Pulse Oximetry 94 L 96 06/06/18 04:48 06/06/18 04:59 06/06/18 08:00 Temperature 98.0 F Pulse Rate 107 H 105 H Respiratory Rate 18 20 16 Blood Pressure 148/92 H Pulse Oximetry 96 06/06/18 09:00 Temperature Pulse Rate 83 Respiratory Rate 12 Blood Pressure Pulse Oximetry Intake & Output 06/05/18 06/06/18 06/06/18 18:59 06:59 18:59 Intake Total 1616.2 / 1616.2 607 / 607 Output Total 500 / 500 Balance 1616.2 / 1616.2 107 / 107 Weight 116.12 kg Intake: IV 1616.2 / 1616.2 607 / 607 NS Inj 1,000 ML @ 100 mls/hr IV 1000 / 1000 250 / 250 .CONT .Q10H [facility] Rx#:[id number] MVI-12 Inj 10 ML Thiamine Inj 511.2 / 511.2 100 MG Folvite Inj 1 MG In NS Inj 500 ML @ 127.8 mls/hr IV. SIG DAILY [facility] Rx#:[id number] Keppra Inj 500 MG In NS Inj 100 105 / 105 105 / 105 ML @ 400 mls/hr IV.SIG Q12H [facility] Rx#:[id number] Output: Urine 500 / 500 Other: Date of Last Bowel Movement 06/04/18 06/04/18 <Richard Basilio - Last Filed: 06/06/18 12:02> Assessment and Plan - Assessment (1) Alcohol abuse with intoxication Code(s): F10.129 - Alcohol abuse with intoxication, unspecified Status: Chronic (2) Subdural hemorrhage Code(s): I62.00 - Nontraumatic subdural hemorrhage, unspecified Status: Acute (3) Subarachnoid hemorrhage Code(s): I60.9 - Nontraumatic subarachnoid hemorrhage, unspecified Status: Acute (4) Multiple facial bone fractures Code(s): S02.92XA - Unspecified fracture of facial bones, initial encounter for closed fracture Status: Acute Qualifiers: Encounter type: initial encounter Fracture type: closed Qualified Code(s) : S02.92XA - Unspecified fracture of facial bones, initial encounter for closed fracture - Plan 63-year-old gentleman with a small right subdural hemorrhage without mass- effect or midline shift. Continue with DT precautions given he is already going through withdrawals- Pt being treated with Ativan Continue with seizure prophylaxis with Keppra mechanical DVT prophylaxis Gastrointestinal stress ulcer prophylaxis- pt on Protonix. Increase activity with assistance. <Kevin Godoy - Last Filed: 06/06/18 10:14> - Assessment (1) Subdural hemorrhage Code(s): I62.00 - Nontraumatic subdural hemorrhage, unspecified Status: Acute (2) Alcohol abuse with intoxication Code(s): F10.129 - Alcohol abuse with intoxication, unspecified Status: Chronic (3) Multiple facial bone fractures Code(s): S02.92XA - Unspecified fracture of facial bones, initial encounter for closed fracture Status: Acute Qualifiers: Encounter type: initial encounter Fracture type: closed Qualified Code(s) : S02.92XA - Unspecified fracture of facial bones, initial encounter for closed fracture - Attending Attestation The exam, history, and the medical decision-making described in the above note were completed with the assistance of the mid-level provider. I reviewed and agree with the findings presented. I attest that I had a daps-ha-csde encounter with the patient on the same day, and personally performed and documented my assessment and findings in the medical record. <Richard Basilio - Last Filed: 06/06/18 12:02>
[2018-06-06 10:58] LABS: Eosinophils 1 % (0-4); Lymphocytes 13 % (9-44); Monocytes 33 % (0-8); Platelet Estimate Normal (Normal); Platelet Morphology Normal (Normal)
[2018-06-06] MEDS: Multivitamin Inj 10 ML, Thiamine Inj 100 MG, Folic Acid Inj 1 MG in Sodium Chlor 0.9% I... IV.SIG SCH (10:59)
[2018-06-06 11:00] LABS: Pappenheimer Bodies Present
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
[2018-06-06] MEDS: diazePAM 5 MG Tablet PO SCH ×2 (13:48→18:19)
[2018-06-06] MEDS: levETIRAcetam 500 MG Tablet PO SCH ×2 (15:35→20:05)
[2018-06-06] MEDS: levETIRAcetam 250 MG Tablet PO SCH ×2 (15:35→20:05)
--- NOTE | 2018-06-06 20:56 | P.DCO ---
- Physical Therapy Order: Evaluate and treat, Improve ambulation, Strength and gait training - Home Health Nursing Order: Medical education, Signs/symptoms of disease process, Medication education-adverse effect, Nursing assessment with vital signs - Case Management Consult Yes - Certification I have seen patient Sam Hansen on 06/06/18. My clinical findings support the need for the requested home health care services because: Limited mobility due to disease progression, Patient has SOB, Deconditioned with increased weakness, Medication compliance is questionable, Limited ability to care for self, Impaired cognition/judgement, High risk of falls I certify that my clinical findings support that this patient is homebound because: Post-op weakness, Impaired cognitive ability/safety, Unsteady gait/balance, Unsafe to leave home unassisted, Unable to use public transportation
[2018-06-06] MEDS: Haloperidol Inj 5 MG/ML Ampul IV.PUSH PRN (22:00)
[2018-06-07] MEDS: diazePAM 5 MG Tablet PO SCH ×4 (01:00→17:04)
[2018-06-07 03:41] LABS: Baso # (Auto) 0.1 th/mm3 (0.0-0.2); Baso % (Auto) 0.5 % (0.0-2.0); Eos # (Auto) 0.3 th/mm3 (0.0-0.4); Eos % (Auto) 2.4 % (0.0-4.0); Hematocrit 37.8 % (39.0-51.0); Hemoglobin 12.9 gm/dL (13.0-17.0); Lymph # (Auto) 1.4 th/mm3 (1.0-4.8); Lymph % (Auto) 12.9 % (9.0-44.0); Mean Corpuscular Hemoglobin 36.2 pg (27.0-34.0); Mean Corpuscular Volume 106.3 fL (80.0-100.0); Mean Platelet Volume 9.7 fL (7.0-11.0); Mono % (Auto) 18.7 % (0.0-8.0); Neut # (Auto) 7.1 th/mm3 (1.8-7.7); Neut % (Auto) 65.5 % (16.0-70.0); Platelet Count 146 th/mm3 (150-450); Red Blood Count 3.56 mil/mm3 (4.50-5.90); Red Cell Distribution Width 15.4 % (11.6-17.2); White Blood Count 10.8 th/mm3 (4.0-11.0)
[2018-06-07 04:02] LABS: Anion Gap 9 meq/L (5-15); Blood Urea Nitrogen 8 mg/dL (7-18); Carbon Dioxide 26.9 meq/L (21.0-32.0); Chloride 102 meq/L (98-107); Glomerular Filtration Rate Greater Than 89 mL/min (>89); Glucose,Random 84 mg/dL (74-106); Potassium 3.5 meq/L (3.5-5.1); Sodium 138 meq/L (136-145)
[2018-06-07] MEDS: Pantoprazole Inj 40 MG Vial IV.PUSH SCH (05:21)
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
[2018-06-07] MEDS: Multivitamin Inj 10 ML, Thiamine Inj 100 MG, Folic Acid Inj 1 MG in Sodium Chlor 0.9% I... IV.SIG SCH (09:32)
[2018-06-07] MEDS: levETIRAcetam 250 MG Tablet PO SCH ×2 (09:33→22:18)
[2018-06-07] MEDS: levETIRAcetam 500 MG Tablet PO SCH ×2 (09:33→21:00)
[2018-06-07] MEDS: Senna/Docusate Sodium 8.6/50 MG Tablet PO SCH ×2 (09:33→21:01)
[2018-06-07] MEDS: Lidocaine 5% Patch T-DERMAL SCH (09:33)
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
--- NOTE | 2018-06-07 12:56 | P.PNNS ---
Subjective Interval history: Pt awakens to voice complains of right sided headache. Nausea but no vomiting. Follows commands. <Kevin Godoy - Last Filed: 06/07/18 12:51> Physical Exam Vital signs: Vital Signs 06/06/18 15:00 06/06/18 16:00 06/06/18 20:00 Temperature 97.4 F L 97.2 F L Pulse Rate 101 H 118 H 125 H Respiratory Rate 14 16 18 Blood Pressure 194/106 H 183/112 H Pulse Oximetry 94 L 94 L 06/06/18 20:49 06/06/18 23:19 06/06/18 23:28 Temperature Pulse Rate Respiratory Rate 18 18 Blood Pressure Pulse Oximetry 94 L 06/07/18 00:00 06/07/18 00:25 06/07/18 03:58 Temperature 98.2 F 98.6 F Pulse Rate 105 H 107 H 107 H Respiratory Rate 18 20 Blood Pressure 126/71 143/87 H Pulse Oximetry 93 L 94 L 06/07/18 04:00 06/07/18 07:34 06/07/18 09:40 Temperature 98.7 F Pulse Rate 109 H 99 H Respiratory Rate 18 Blood Pressure 139/99 H Pulse Oximetry 94 L 95 06/07/18 11:53 Temperature 98 F Pulse Rate 93 H Respiratory Rate 20 Blood Pressure 143/85 H Pulse Oximetry 93 L Intake & Output 06/06/18 06/07/18 06/07/18 18:59 06:59 18:59 Intake Total 500 / 500 580 / 580 Output Total 400 / 400 1575 / 1575 300 / 300 Balance 100 / 100 -1575 / -1575 280 / 280 Weight 99.6 kg Intake: IV 500 / 500 MVI-12 Inj 10 ML Thiamine Inj 500 / 500 100 MG Folvite Inj 1 MG In NS Inj 500 ML @ 127.8 mls/hr IV. SIG DAILY [facility] Rx#:[id number] Oral 580 / 580 Output: Urine 400 / 400 1575 / 1575 300 / 300 Other: Date of Last Bowel Movement 06/04/18 06/04/18 - Constitutional no acute distress, cooperative - Routine HEENT Exam Head: Absent: atraumatic Eye: Present: PERRL (Pupils 3mm bilaterally reactive bilaterally.). Absent: conjunctival icterus - Routine Respiratory Exam Present: CTA bilaterally. Absent: respiratory distress, rhonchi, wheezes - Routine Cardiovascular Exam Present: RRR, S1, S2. Absent: murmur - Routine Abdominal Exam Present: soft, normoactive bowel sounds. Absent: distended, firm - Routine Skin Exam Absent: cyanosis, erythema Comments: Right facial abrasions. - Routine Neurological Exam Present: alert, moving all extremities. Absent: motor deficit - Routine Psychiatric Exam Present: cooperative. Absent: anxious, agitated <Kevin Godoy - Last Filed: 06/07/18 12:51> Vital signs: Vital Signs 06/06/18 20:00 06/06/18 20:49 06/06/18 23:19 Temperature 97.2 F L Pulse Rate 125 H Respiratory Rate 18 18 Blood Pressure 183/112 H Pulse Oximetry 94 L 94 L 06/06/18 23:28 06/07/18 00:00 06/07/18 00:25 Temperature 98.2 F Pulse Rate 105 H 107 H Respiratory Rate 18 18 Blood Pressure 126/71 Pulse Oximetry 93 L 06/07/18 03:58 06/07/18 04:00 06/07/18 07:34 Temperature 98.6 F 98.7 F Pulse Rate 107 H 109 H 99 H Respiratory Rate 20 18 Blood Pressure 143/87 H 139/99 H Pulse Oximetry 94 L 94 L 06/07/18 09:40 06/07/18 11:53 06/07/18 15:36 Temperature 98 F 98.1 F Pulse Rate 93 H 94 H Respiratory Rate 20 18 Blood Pressure 143/85 H 178/117 H Pulse Oximetry 95 93 L 99 06/07/18 15:58 Temperature Pulse Rate Respiratory Rate Blood Pressure Pulse Oximetry 99 Intake & Output 06/06/18 06/07/18 06/07/18 18:59 06:59 18:59 Intake Total 500 / 500 1091.2 / 1091.2 Output Total 400 / 400 1575 / 1575 300 / 300 Balance 100 / 100 -1575 / -1575 791.2 / 791.2 Weight 99.6 kg Intake: IV 500 / 500 511.2 / 511.2 MVI-12 Inj 10 ML Thiamine Inj 500 / 500 511.2 / 511.2 100 MG Folvite Inj 1 MG In NS Inj 500 ML @ 127.8 mls/hr IV. SIG DAILY [facility] Rx#:[id number] Oral 580 / 580 Output: Urine 400 / 400 1575 / 1575 300 / 300 Other: Date of Last Bowel Movement 06/04/18 06/04/18 06/04/18 <Richard Basilio - Last Filed: 06/07/18 16:42> Assessment and Plan - Assessment (1) Alcohol abuse with intoxication Code(s): F10.129 - Alcohol abuse with intoxication, unspecified Status: Chronic (2) Subdural hemorrhage Code(s): I62.00 - Nontraumatic subdural hemorrhage, unspecified Status: Acute (3) Subarachnoid hemorrhage Code(s): I60.9 - Nontraumatic subarachnoid hemorrhage, unspecified Status: Acute (4) Multiple facial bone fractures Code(s): S02.92XA - Unspecified fracture of facial bones, initial encounter for closed fracture Status: Acute Qualifiers: Encounter type: initial encounter Fracture type: closed Qualified Code(s) : S02.92XA - Unspecified fracture of facial bones, initial encounter for closed fracture - Plan 63-year-old gentleman with a small right subdural hemorrhage without mass- effect or midline shift. Continue with DT precautions given he is already going through withdrawals- Pt being treated with Ativan Continue with seizure prophylaxis with Keppra mechanical DVT prophylaxis Gastrointestinal stress ulcer prophylaxis- pt on Protonix. Increase activity with assistance. <Kevin Godoy - Last Filed: 06/07/18 12:51> - Assessment (1) Subdural hemorrhage Code(s): I62.00 - Nontraumatic subdural hemorrhage, unspecified Status: Acute (2) Alcohol abuse with intoxication Code(s): F10.129 - Alcohol abuse with intoxication, unspecified Status: Chronic (3) Multiple facial bone fractures Code(s): S02.92XA - Unspecified fracture of facial bones, initial encounter for closed fracture Status: Acute Qualifiers: Encounter type: initial encounter Fracture type: closed Qualified Code(s) : S02.92XA - Unspecified fracture of facial bones, initial encounter for closed fracture - Attending Attestation The exam, history, and the medical decision-making described in the above note were completed with the assistance of the mid-level provider. I reviewed and agree with the findings presented. I attest that I had a [id number] encounter with the patient on the same day, and personally performed and documented my assessment and findings in the medical record. <Richard Basilio - Last Filed: 06/07/18 16:42>
[2018-06-07] MEDS: Lisinopril 20 MG Tablet PO SCH (17:04)
[2018-06-07] MEDS: Metoprolol Tartrate 25 MG Tablet PO SCH (17:04)
[2018-06-08] MEDS: Haloperidol Inj 5 MG/ML Ampul IV.PUSH PRN (01:48)
[2018-06-08] MEDS: Pantoprazole Inj 40 MG Vial IV.PUSH SCH (05:43)
[2018-06-08] MEDS: levETIRAcetam 250 MG Tablet PO SCH ×2 (08:49→20:14)
[2018-06-08] MEDS: amLODIPine 5 MG Tablet PO SCH (08:49)
[2018-06-08] MEDS: Senna/Docusate Sodium 8.6/50 MG Tablet PO SCH ×2 (08:49→20:15)
[2018-06-08] MEDS: diazePAM 5 MG Tablet PO SCH ×2 (08:49→20:20)
[2018-06-08] MEDS: Metoprolol Tartrate 25 MG Tablet PO SCH (08:49)
[2018-06-08] MEDS: Lisinopril 20 MG Tablet PO SCH (08:49)
[2018-06-08] MEDS: levETIRAcetam 500 MG Tablet PO SCH ×2 (08:49→20:15)
[2018-06-08] MEDS: Lidocaine 5% Patch T-DERMAL SCH (08:50)
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
[2018-06-08] MEDS: Morphine Sulfate Inj 2 MG/ML Vial IV.PUSH PRN ×3 (12:35→21:40)
[2018-06-09] MEDS: Haloperidol Inj 5 MG/ML Ampul IV.PUSH PRN (00:25)
[2018-06-09] MEDS: Morphine Sulfate Inj 2 MG/ML Vial IV.PUSH PRN ×6 (01:18→23:14)
[2018-06-09] MEDS: Pantoprazole Inj 40 MG Vial IV.PUSH SCH (05:03)
[2018-06-09] MEDS ORDERED: Bisacodyl 10 MG Supp RECTAL ONE (06:40)
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
[2018-06-09] MEDS: Senna/Docusate Sodium 8.6/50 MG Tablet PO SCH ×2 (09:09→21:21)
[2018-06-09] MEDS: diazePAM 5 MG Tablet PO SCH ×2 (09:10→21:33)
[2018-06-09] MEDS: levETIRAcetam 250 MG Tablet PO SCH ×2 (09:10→21:20)
[2018-06-09] MEDS: amLODIPine 5 MG Tablet PO SCH (09:11)
[2018-06-09] MEDS: levETIRAcetam 500 MG Tablet PO SCH ×2 (09:11→21:20)
[2018-06-09] MEDS: Lisinopril 20 MG Tablet PO SCH (09:12)
[2018-06-09] MEDS: Metoprolol Tartrate 25 MG Tablet PO SCH (09:13)
[2018-06-09] MEDS: Lidocaine 5% Patch T-DERMAL SCH (09:19)
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
--- NOTE | 2018-06-09 15:41 | XR ---
EXAM DATE: 06/09/2018 3:33 PM EDT AGE/SEX: 63 years / Male INDICATIONS: Pain from fall in entire upper leg. CLINICAL DATA: This is the patient's initial encounter. Patient reports that signs and symptoms have been present for 1 day and indicates a pain score of 10/10. MEDICAL/SURGICAL HISTORY: None. None. COMPARISON: C, FEMUR RIGHT 2V, 06/08/2018. . FINDINGS: Bony structures are intact and in normal alignment. Osseous density is normal. Soft tissues are unre markable. No radiopaque foreign bodies seen. CONCLUSION: Negative examination Electronically signed by: Kentrell Eubanks MD 06/09/2018 3:39 PM EDT
[2018-06-10] MEDS: Pantoprazole Inj 40 MG Vial IV.PUSH SCH (05:33)
[2018-06-10] MEDS: Morphine Sulfate Inj 2 MG/ML Vial IV.PUSH PRN ×4 (07:22→23:48)
--- NOTE | 2018-06-10 08:40 | P.PNNPSY ---
- Progress Notes/Response to Treatment Time with Patient: 15 minutes Premorbid Psychological Status: Premorbid Cognitive, Emotional and Behavioral Status: Tenuous. The patient has high school years of education and a solid work history prior to this injury. The patient has unknown prior psychiatric difficulties, as described above. Substance abuse history is significant. Behavioral Reactions of Patient and Family/Support System: Unable to Assess. The patients family is experiencing ongoing issues of adjustment given the nature of the injury, and this aspect of recovery will require ongoing monitoring. Emotional/Behavioral Status of Patient and Family/Support System: Unable to Assess. Pertinent issues, if appropriate to this patients clinical care, are described in detail above. Maximizing Acute Care Outcome: It is recommended that the patient be monitored for emergent behavioral impulsivity as the medical condition evolves. This patients neuropathological challenges may limit rehabilitation potential going forward, and these challenges will require specialized therapeutic skills to maximize outcome. Additionally, the patients family is experiencing ongoing issues of adjustment given the traumatic nature of the injury, and they may benefit from ongoing psychological assistance. At this point in the recovery process, the patient does not have cognitive capacity as the patient is unable to understand a situation and its likely consequences, nor is the patient able to manipulate information rationally. Cognitive capacity will be assessed throughout the recovery process. Anticipated Problems: Ongoing areas of concern will include behavioral impulsivity, lack of insight and judgment, which is expected to improve with time and treatment. Treatment Plan: This clinician will continue to follow with you throughout the course of this patients acute care treatment, and I will be available to meet with the patient s family/support system to facilitate their understanding and the ongoing care of their family member. The goals of neuropsychological intervention shall be both educational and supportive to the family/support system as is deemed clinically appropriate. Disinhibition Score: 17.50 Aggression Score: 17.50 Lability Score: 18.66 Agitated Behavior Total Score: 17 Impression: 63 year old male s/p fall with alcohol dependence. Progress Note Narrative: PTD 5. The patient is on Valium taper now at 5 HS (day 3) with Keppra adjunct. No significant agitation with ABS of 17 (17.5,17.5,18.7). He did require Haldol PRN on 06/09 at 0025. Today on rounds, he was conversant, clear, alert and oriented, complaining of face pain but otherwise cognitively intact without signs of TIFFANY. I will follow. - Diagnosis (1) Alcohol dependence in controlled environment Status: Acute
[2018-06-10] MEDS: amLODIPine 5 MG Tablet PO SCH (09:05)
[2018-06-10] MEDS: levETIRAcetam 250 MG Tablet PO SCH ×2 (09:05→21:38)
[2018-06-10] MEDS: Lisinopril 20 MG Tablet PO SCH (09:07)
[2018-06-10] MEDS: Metoprolol Tartrate 25 MG Tablet PO SCH (09:08)
[2018-06-10] MEDS: levETIRAcetam 500 MG Tablet PO SCH ×2 (09:08→21:38)
[2018-06-10] MEDS: Senna/Docusate Sodium 8.6/50 MG Tablet PO SCH ×2 (09:09→21:39)
[2018-06-10] MEDS: Lidocaine 5% Patch T-DERMAL SCH (09:15)
--- NOTE | 2018-06-10 11:13 | P.PN ---
Subjective Interval history: TRAUMA PTD: 5 Patient sitting up in bed. No distress noted. Patient states that the Imitrex worked to control his headache. "This is the first time my head does not feel like it is going to split in half. " Patient upset about the meals he is been receiving here at the hospital. Patient states, "all I want is a grilled cheese." Patient states he wants to go to inpatient physical rehab. Physical Exam Vital signs: Vital Signs 06/09/18 12:00 06/09/18 15:55 06/09/18 20:00 Temperature 97.8 F 98.4 F 97.3 F L Pulse Rate 86 94 H 93 H Respiratory Rate 18 19 19 Blood Pressure 151/99 H 161/100 H 182/111 H Pulse Oximetry 94 L 94 L 95 06/09/18 20:30 06/09/18 23:36 06/10/18 00:30 Temperature 98.3 F Pulse Rate 90 95 H 78 Respiratory Rate 18 Blood Pressure 172/97 H Pulse Oximetry 95 06/10/18 04:00 06/10/18 04:30 06/10/18 08:00 Temperature 97.5 F L 97.9 F Pulse Rate 76 70 83 Respiratory Rate 20 20 Blood Pressure 136/80 177/110 H Pulse Oximetry 98 97 06/10/18 09:00 Temperature Pulse Rate 83 Respiratory Rate Blood Pressure Pulse Oximetry Intake & Output 06/09/18 06/10/18 06/10/18 18:59 06:59 18:59 Intake Total 500 / 500 Output Total 400 / 400 Balance 100 / 100 Weight 95.1 kg Intake: Oral 500 / 500 Output: Urine 400 / 400 Other: # Voids 3 Date of Last Bowel Movement 06/08/18 06/08/18 06/09/18 Narrative: GENERAL: This is a 63-year-old male sitting up in bed. No distress noted. SKIN: Warm and dry. HEAD:. Normocephalic. Ecchymosis and abrasions noted to right side of head face /cheek. EYES: PERRLA ENT: No nasal bleeding or discharge. Mucous membranes pink and moist. NECK: Trachea midline. No JVD. CARDIOVASCULAR: Regular rate and rhythm. RESPIRATORY: No accessory muscle use. Lungs are clear to auscultation. Breath sounds equal bilaterally. No distress or dyspnea. GASTROINTESTINAL: BS + x 4 quads. Abdomen soft, non-tender, nondistended. MUSCULOSKELETAL: Extremities without cyanosis, or edema. Right outer thigh with hematoma/ecchymosis noted. + peripheral pulses x 4 extremities. Warm with good capillary refill and sensation. MAEW. NEUROLOGICAL: Awake and alert. Normal speech and pattern. Results - Labs CBC & Chem 7: 06/07/18 03:11 06/07/18 03:11 - Imaging Impressions Femur X-Ray 06/09/18 00:00 CONCLUSION: Negative examination Assessment and Plan - Assessment (1) Alcohol abuse with intoxication Code(s): F10.129 - Alcohol abuse with intoxication, unspecified Status: Chronic (2) Subdural hemorrhage Code(s): I62.00 - Nontraumatic subdural hemorrhage, unspecified Status: Acute (3) Subarachnoid hemorrhage Code(s): I60.9 - Nontraumatic subarachnoid hemorrhage, unspecified Status: Acute (4) Multiple facial bone fractures Code(s): S02.92XA - Unspecified fracture of facial bones, initial encounter for closed fracture Status: Acute - Plan [place]: This is a 63-year-old male who sustained a mechanical fall. He fell from the standing position into the road. He hit his head. Initially unresponsive. EtOH 362. INJURIES: RIGHT frontal/temporal SDH (3mm) SAH RIGHT temporal RIGHT zygomatic arch fx (all non-op) RIGHT maxillary sinus fx RIGHT orbital floor fx RIGHT pterygoid plate fx RIGHT Nasal fx (non-op) RIGHT face laceration (sutures) RIGHT rib fxs (4, 5) RIGHT pulmonary contusion LEFT elbow effusion (NO FX) PMHx: Smoker. ETOH. Anxiety. Depression. HTN. Afib. 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 Procedures: Consults: Neurosurgery. OMFS. Orthopedics. Neuropsych. Case management. Diet: Regular SOFT diet. Tolerating po diet. Encourage good po intake with each meal. Pulmonary: Encourage good pulmonary toileting. IS at bedside and pt encouraged to use. Rationale for use explained to patient, and verbalized understanding. PAIN Management: [place] 5-10mg q4h. Morphine 2 mg every 3 hours for breakthrough pain. Lidoderm patch. Imitrex BID for headache. Activity: OOB. PT and OT ordered. (WBAT LUE) GI prophylaxis: Protonix 40 mg IV. Bowel regimen: Desi-colace. Lactulose PRN. LBM: 06/08 DVT prophylaxis: Mechanical VTE with SCDs. Chemical management contraindicated at this time due to SDH/SAH. DC Planning: Case management consulted for assistance with final discharge disposition. Emotional support provided to patient and family at bedside and plan of care discussed. Discussed with RN at bedside. Discussed pt condition and plan of care with collaborating trauma surgeon. Patient is hemodynamically stable and being managed on the med/surg floor. The trauma team will round each day, and evaluate plan of care on a daily basis. RIGHT frontal/temporal SDH (3mm) SAH RIGHT temporal RIGHT zygomatic arch fx (all non-op) RIGHT maxillary sinus fx RIGHT orbital floor fx RIGHT pterygoid plate fx RIGHT Nasal fx (non-op) RIGHT face laceration (sutures) Neurosurgery consulted and assisting in management and care Monitor closely Serial neuro checks 06/05: CT brain- evolving SDH and SAH CT brain for any change in neurological status OMFS consulted and assisting in management and care All facial fractures are nonoperative at this time Supportive care Pain management Imitrex for headache helped with pts pain Soft diet Encourage out of bed PT and OT ordered Bowel regimen Seizure precautions Seizure prophylaxis Neuropsych consulted and assisting in management and care Wash facial lacerations daily with soap and water. Pat dry. May apply bacitracin. Follow-up with neurosurgery outpatient Follow-up with OMFS outpatient RIGHT rib fxs (4, 5) RIGHT pulmonary contusion O2 nasal cannula as needed Aggressive pulmonary toileting Supportive care Pain management Chest x-ray as needed Encourage out of bed PT and OT ordered LEFT elbow effusion (NO FX) Orthopedics consulted and assisting in management care No fracture noted Supportive care Pain management Encourage out of bed PT and OT ordered WBAT LUE Bowel regimen Follow-up with orthopedics outpatient RIGHT hip pain RIGHT thigh hematoma formation Supportive care X-rays of both right hip, and right femur for further evaluation All x-rays were re-read by radiologist, and are negative for any fracture Pain management ETOH abuse EtOH = 362 upon arrival Monitor closely for DT's DT precautions Valium taper in progress Haldol 3 mg q 6 hr for agitation MVI IV times 3 days -complete Keppra 750 mg BID Discussed with patient the importance of abstaining from alcohol HTN Afib Anxiety Depression Patient is not on any home meds Vital signs every 4 hours Monitor patient closely (4) Multiple facial bone fractures Qualifiers: Encounter type: initial encounter Fracture type: closed Qualified Code(s): S02.92XA - Unspecified fracture of facial bones, initial encounter for closed fracture
--- NOTE | 2018-06-10 17:25 | P.PNNS ---
Subjective Interval history: Pt awake and alert. Complains of right sided headache. Pt states difficulty chewing secondary to pain in TMJ area. No n/v. <KennethponchoKevin smith - Last Filed: 06/10/18 17:19> Physical Exam Vital signs: Vital Signs 06/09/18 20:00 06/09/18 20:30 06/09/18 23:36 Temperature 97.3 F L 98.3 F Pulse Rate 93 H 90 95 H Respiratory Rate 19 18 Blood Pressure 182/111 H 172/97 H Pulse Oximetry 95 95 06/10/18 00:30 06/10/18 04:00 06/10/18 04:30 Temperature 97.5 F L Pulse Rate 78 76 70 Respiratory Rate 20 Blood Pressure 136/80 Pulse Oximetry 98 06/10/18 08:00 06/10/18 09:00 06/10/18 12:00 Temperature 97.9 F 97.6 F Pulse Rate 83 83 71 Respiratory Rate 20 20 Blood Pressure 177/110 H 149/94 H Pulse Oximetry 97 96 06/10/18 16:00 Temperature 97.5 F L Pulse Rate 77 Respiratory Rate 20 Blood Pressure 158/94 H Pulse Oximetry 97 Intake & Output 06/09/18 06/10/18 06/10/18 18:59 06:59 18:59 Intake Total 500 / 500 Output Total 400 / 400 Balance 100 / 100 Weight 95.1 kg Intake: Oral 500 / 500 Output: Urine 400 / 400 Other: # Voids 3 Date of Last Bowel Movement 06/08/18 06/08/18 06/09/18 - Constitutional no acute distress - Routine HEENT Exam Head: Absent: atraumatic (Right periorbital ecchymosis.) Eye: Present: PERRL - Routine Neck Exam Present: supple - Routine Respiratory Exam Present: CTA bilaterally. Absent: respiratory distress, rhonchi, wheezes - Routine Cardiovascular Exam Present: RRR, S1, S2. Absent: murmur - Routine Abdominal Exam Present: soft, normoactive bowel sounds. Absent: distended, firm - Routine Skin Exam Present: ecchymosis (Right periorbital.). Absent: cyanosis, erythema - Routine Neurological Exam Present: alert, moving all extremities, normal speech. Absent: motor deficit, altered mental status (Pt more alert and less confused.) - Routine Psychiatric Exam Present: normal affect, cooperative. Absent: anxious, agitated <Kevin Godoy - Last Filed: 06/10/18 17:19> Vital signs: Vital Signs 06/09/18 20:00 06/09/18 20:30 06/09/18 23:36 Temperature 97.3 F L 98.3 F Pulse Rate 93 H 90 95 H Respiratory Rate 19 18 Blood Pressure 182/111 H 172/97 H Pulse Oximetry 95 95 06/10/18 00:30 06/10/18 04:00 06/10/18 04:30 Temperature 97.5 F L Pulse Rate 78 76 70 Respiratory Rate 20 Blood Pressure 136/80 Pulse Oximetry 98 06/10/18 08:00 06/10/18 09:00 06/10/18 12:00 Temperature 97.9 F 97.6 F Pulse Rate 83 83 71 Respiratory Rate 20 20 Blood Pressure 177/110 H 149/94 H Pulse Oximetry 97 96 06/10/18 16:00 Temperature 97.5 F L Pulse Rate 77 Respiratory Rate 20 Blood Pressure 158/94 H Pulse Oximetry 97 Intake & Output 06/09/18 06/10/18 06/10/18 18:59 06:59 18:59 Intake Total 500 / 500 Output Total 400 / 400 Balance 100 / 100 Weight 95.1 kg Intake: Oral 500 / 500 Output: Urine 400 / 400 Other: # Voids 3 Date of Last Bowel Movement 06/08/18 06/08/18 06/09/18 <Richard Basilio - Last Filed: 06/10/18 18:31> Assessment and Plan - Assessment (1) Alcohol abuse with intoxication Code(s): F10.129 - Alcohol abuse with intoxication, unspecified Status: Chronic (2) Subdural hemorrhage Code(s): I62.00 - Nontraumatic subdural hemorrhage, unspecified Status: Acute (3) Subarachnoid hemorrhage Code(s): I60.9 - Nontraumatic subarachnoid hemorrhage, unspecified Status: Acute (4) Multiple facial bone fractures Code(s): S02.92XA - Unspecified fracture of facial bones, initial encounter for closed fracture Status: Acute Qualifiers: Encounter type: initial encounter Fracture type: closed Qualified Code(s) : S02.92XA - Unspecified fracture of facial bones, initial encounter for closed fracture - Plan 63-year-old gentleman with a small right subdural hemorrhage without mass- effect or midline shift. Continue with DT precautions given he is already going through withdrawals- Pt being treated with Ativan Continue with seizure prophylaxis with Keppra mechanical DVT prophylaxis Gastrointestinal stress ulcer prophylaxis- pt on Protonix. Increase activity with assistance. Continue with PT. D/C planning- rehab placement. <Kevin Godoy - Last Filed: 06/10/18 17:19> - Assessment (1) Subdural hemorrhage Code(s): I62.00 - Nontraumatic subdural hemorrhage, unspecified Status: Acute (2) Alcohol abuse with intoxication Code(s): F10.129 - Alcohol abuse with intoxication, unspecified Status: Chronic (3) Multiple facial bone fractures Code(s): S02.92XA - Unspecified fracture of facial bones, initial encounter for closed fracture Status: Acute Qualifiers: Encounter type: initial encounter Fracture type: closed Qualified Code(s) : S02.92XA - Unspecified fracture of facial bones, initial encounter for closed fracture - Attending Attestation The exam, history, and the medical decision-making described in the above note were completed with the assistance of the mid-level provider. I reviewed and agree with the findings presented. I attest that I had a [id number] encounter with the patient on the same day, and personally performed and documented my assessment and findings in the medical record. <Richard Basilio - Last Filed: 06/10/18 18:31>
[2018-06-10] MEDS: diazePAM 5 MG Tablet PO SCH (21:38)
[2018-06-11] MEDS: Morphine Sulfate Inj 2 MG/ML Vial IV.PUSH PRN ×4 (03:32→18:00)
[2018-06-11] MEDS: Pantoprazole Inj 40 MG Vial IV.PUSH SCH (06:45)
--- NOTE | 2018-06-11 08:32 | P.PNNPSY ---
- Behavior Intact: Impulsive/agitated - Cognitive Mild: Cognitive, Attention/concentration, Confused/orientation, Insight/ awareness, Judgment/problem solving, Memory - Progress Notes/Response to Treatment Contents of Sessions: Adjustment, Level of consciousness Time with Patient: 15 minutes Premorbid Psychological Status: Premorbid Cognitive, Emotional and Behavioral Status: Tenuous. The patient has high school years of education and a solid work history prior to this injury. The patient has unknown prior psychiatric difficulties, as described above. Substance abuse history is significant. Behavioral Reactions of Patient and Family/Support System: Unable to Assess. The patients family is experiencing ongoing issues of adjustment given the nature of the injury, and this aspect of recovery will require ongoing monitoring. Emotional/Behavioral Status of Patient and Family/Support System: Unable to Assess. Pertinent issues, if appropriate to this patients clinical care, are described in detail above. Maximizing Acute Care Outcome: It is recommended that the patient be monitored for emergent behavioral impulsivity as the medical condition evolves. This patients neuropathological challenges may limit rehabilitation potential going forward, and these challenges will require specialized therapeutic skills to maximize outcome. Additionally, the patients family is experiencing ongoing issues of adjustment given the traumatic nature of the injury, and they may benefit from ongoing psychological assistance. At this point in the recovery process, the patient does not have cognitive capacity as the patient is unable to understand a situation and its likely consequences, nor is the patient able to manipulate information rationally. Cognitive capacity will be assessed throughout the recovery process. Anticipated Problems: Ongoing areas of concern will include behavioral impulsivity, lack of insight and judgment, which is expected to improve with time and treatment. Treatment Plan: This clinician will continue to follow with you throughout the course of this patients acute care treatment, and I will be available to meet with the patient s family/support system to facilitate their understanding and the ongoing care of their family member. The goals of neuropsychological intervention shall be both educational and supportive to the family/support system as is deemed clinically appropriate. [place] COG Scale: Level VII Disinhibition Score: 17.50 Aggression Score: 17.50 Lability Score: 18.66 Agitated Behavior Total Score: 17 Impression: 63 year old male s/p fall with alcohol dependence. Progress Note Narrative: PTD 6. The patient remains neurobehaviorally managed, with no significant agitation/restlessness with ABS of 17 (17.5,17.5,18.7). His TIFFANY is managed on valium taper with Keppra adjunct. He is around [place]. I will follow. - Diagnosis (1) Alcohol dependence in controlled environment Status: Acute
[2018-06-11] MEDS: Metoprolol Tartrate 25 MG Tablet PO SCH (08:44)
[2018-06-11] MEDS: amLODIPine 5 MG Tablet PO SCH (08:44)
[2018-06-11] MEDS: Lisinopril 20 MG Tablet PO SCH (08:44)
[2018-06-11] MEDS: levETIRAcetam 500 MG Tablet PO SCH ×2 (08:44→20:51)
[2018-06-11] MEDS: levETIRAcetam 250 MG Tablet PO SCH ×2 (08:44→20:51)
[2018-06-11] MEDS: Lidocaine 5% Patch T-DERMAL SCH (08:46)
[2018-06-11] MEDS: Senna/Docusate Sodium 8.6/50 MG Tablet PO SCH ×2 (08:48→20:51)
--- NOTE | 2018-06-11 12:40 | P.PN ---
Subjective Interval history: Trauma PTD: 6 Patient observed walking from the restroom back to bed with cane. Patient states, "I can only make it to the bathroom and back." "I am in so much pain." "I cannot eat a banana. I cannot even chew cottage cheese." Patient complains that he is constantly woke up throughout the night by staff who want to check and evaluate him and take his vital signs. Physical Exam Vital signs: Vital Signs 06/10/18 16:00 06/10/18 20:00 06/10/18 20:30 Temperature 97.5 F L 98.1 F Pulse Rate 77 82 81 Respiratory Rate 20 20 Blood Pressure 158/94 H 165/103 H Pulse Oximetry 97 97 06/10/18 23:18 06/11/18 00:00 06/11/18 00:30 Temperature 97.8 F Pulse Rate 76 76 Respiratory Rate 18 19 Blood Pressure 176/91 H Pulse Oximetry 97 06/11/18 04:00 06/11/18 04:30 06/11/18 08:00 Temperature 98.3 F 98.0 F Pulse Rate 62 75 85 Respiratory Rate 19 20 Blood Pressure 159/99 H 164/114 H Pulse Oximetry 99 98 Intake & Output 06/10/18 06/11/18 06/11/18 18:59 06:59 18:59 Intake Total 240 / 240 Output Total 1000 / 1000 Balance -1000 / -1000 240 / 240 Weight 95 kg Intake: Oral 240 / 240 Output: Urine 1000 / 1000 Other: # Voids 1 4 Date of Last Bowel Movement 06/09/18 06/10/18 Narrative: GENERAL: This is a 63-year-old male observed walking back from the restroom using a cane . No distress noted. SKIN: Warm and dry. HEAD:. Normocephalic. Ecchymosis and abrasions noted to right side of head face /cheek. Swelling has decreased. EYES: PERRLA ENT: No nasal bleeding or discharge. Mucous membranes pink and moist. NECK: Trachea midline. No JVD. CARDIOVASCULAR: Regular rate and rhythm. RESPIRATORY: No accessory muscle use. Lungs are clear to auscultation. Breath sounds equal bilaterally. No distress or dyspnea. GASTROINTESTINAL: BS + x 4 quads. Abdomen soft, non-tender, nondistended. MUSCULOSKELETAL: Extremities without cyanosis, or edema. Right outer thigh with hematoma/ecchymosis noted. + peripheral pulses x 4 extremities. Warm with good capillary refill and sensation. MAEW. NEUROLOGICAL: Awake and alert. Normal speech and pattern. Results - Labs CBC & Chem 7: 06/07/18 03:11 06/07/18 03:11 Assessment and Plan - Assessment (1) Alcohol abuse with intoxication Code(s): F10.129 - Alcohol abuse with intoxication, unspecified Status: Chronic (2) Subdural hemorrhage Code(s): I62.00 - Nontraumatic subdural hemorrhage, unspecified Status: Acute (3) Subarachnoid hemorrhage Code(s): I60.9 - Nontraumatic subarachnoid hemorrhage, unspecified Status: Acute (4) Multiple facial bone fractures Code(s): S02.92XA - Unspecified fracture of facial bones, initial encounter for closed fracture Status: Acute - Plan [place]: This is a 63-year-old male who sustained a mechanical fall. He fell from the standing position into the road. He hit his head. Initially unresponsive. EtOH 362. INJURIES: RIGHT frontal/temporal SDH (3mm) SAH RIGHT temporal RIGHT zygomatic arch fx (all non-op) RIGHT maxillary sinus fx RIGHT orbital floor fx RIGHT pterygoid plate fx RIGHT Nasal fx (non-op) RIGHT face laceration (sutures) RIGHT rib fxs (4, 5) RIGHT pulmonary contusion LEFT elbow effusion (NO FX) PMHx: Smoker. ETOH. Anxiety. Depression. HTN. Afib. 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 Procedures: Consults: Neurosurgery. OMFS. Orthopedics. Neuropsych. Case management. Limit overnight interruptions to promote sleep. Diet: Regular SOFT diet. Tolerating po diet. Encourage good po intake with each meal. Pulmonary: Encourage good pulmonary toileting. IS at bedside and pt encouraged to use. Rationale for use explained to patient, and verbalized understanding. PAIN Management: [place] 5-10mg q4h. Morphine 2 mg every 3 hours for breakthrough pain. Lidoderm patch. Imitrex BID for headache. Activity: OOB. PT and OT ordered. (WBAT LUE) GI prophylaxis: Protonix 40 mg IV. Bowel regimen: Desi-colace. Lactulose PRN. LBM: 06/09. DVT prophylaxis: Mechanical VTE with SCDs. Chemical management contraindicated at this time due to SDH/SAH. DC Planning: Case management consulted for assistance with final discharge disposition. PT recommends rehab. Patient is clear from a trauma surgery standpoint to transfer to rehab, however due to questionable homeless status and no final discharge plan, he has not been accepted to rehab. PT intensified to 7 days a week to promote progress. Patient has been observed ambulating with a cane in his room unassisted. Requested PT to reevaluate patient to possibly upgrade discharge disposition to home. Emotional support provided to patient and family at bedside and plan of care discussed. Discussed with RN at bedside. Discussed pt condition and plan of care with collaborating trauma surgeon. Patient is hemodynamically stable and being managed on the med/surg floor. The trauma team will round each day, and evaluate plan of care on a daily basis. RIGHT frontal/temporal SDH (3mm) SAH RIGHT temporal RIGHT zygomatic arch fx (all non-op) RIGHT maxillary sinus fx RIGHT orbital floor fx RIGHT pterygoid plate fx RIGHT Nasal fx (non-op) RIGHT face laceration (sutures) Neurosurgery consulted and assisting in management and care Monitor closely Serial neuro checks 06/05: CT brain- evolving SDH and SAH CT brain for any change in neurological status OMFS consulted and assisting in management and care All facial fractures are nonoperative at this time Supportive care Limit overnight interruptions to promote sleep Pain management Imitrex for headache helped with pts pain Soft diet Encourage out of bed PT and OT ordered Bowel regimen Seizure precautions Seizure prophylaxis Neuropsych consulted and assisting in management and care Wash facial lacerations daily with soap and water. Pat dry. May apply bacitracin. Follow-up with neurosurgery outpatient Follow-up with OMFS outpatient RIGHT rib fxs (4, 5) RIGHT pulmonary contusion O2 nasal cannula as needed Aggressive pulmonary toileting Supportive care Pain management Chest x-ray as needed Encourage out of bed PT and OT ordered LEFT elbow effusion (NO FX) Orthopedics consulted and assisting in management care No fracture noted Supportive care Pain management Encourage out of bed PT and OT ordered WBAT LUE Bowel regimen Follow-up with orthopedics outpatient RIGHT hip pain RIGHT thigh hematoma formation Supportive care X-rays of both right hip, and right femur for further evaluation All x-rays were re-read by radiologist, and are negative for any fracture Pain management ETOH abuse EtOH = 362 upon arrival Monitor closely for DT's DT precautions Valium taper in progress Haldol 3 mg q 6 hr for agitation MVI IV times 3 days -complete Keppra 750 mg BID Discussed with patient the importance of abstaining from alcohol HTN Afib Anxiety Depression Patient is not on any home meds Vital signs every 4 hours Monitor patient closely - Attending Attestation overall doing well,started to ambulate,continue current care, dc planning (4) Multiple facial bone fractures Qualifiers: Encounter type: initial encounter Fracture type: closed Qualified Code(s): S02.92XA - Unspecified fracture of facial bones, initial encounter for closed fracture
[2018-06-11] MEDS: diazePAM 5 MG Tablet PO SCH (20:52)
[2018-06-12] MEDS: Morphine Sulfate Inj 2 MG/ML Vial IV.PUSH PRN ×2 (00:18→04:39)
[2018-06-12] MEDS: Pantoprazole Inj 40 MG Vial IV.PUSH SCH (06:49)
[2018-06-12] MEDS: Lisinopril 20 MG Tablet PO SCH (08:25)
[2018-06-12] MEDS: Famotidine 20 MG Tablet PO SCH ×2 (08:25→20:16)
[2018-06-12] MEDS: Lidocaine 5% Patch T-DERMAL SCH (08:26)
[2018-06-12] MEDS: levETIRAcetam 500 MG Tablet PO SCH ×2 (08:26→20:15)
[2018-06-12] MEDS: Metoprolol Tartrate 25 MG Tablet PO SCH (08:26)
[2018-06-12] MEDS: amLODIPine 5 MG Tablet PO SCH (08:26)
[2018-06-12] MEDS: Senna/Docusate Sodium 8.6/50 MG Tablet PO SCH ×2 (08:26→20:16)
[2018-06-12] MEDS: levETIRAcetam 250 MG Tablet PO SCH ×2 (08:26→20:16)
--- NOTE | 2018-06-12 08:42 | P.PNNPSY ---
- Progress Notes/Response to Treatment Contents of Sessions: Adjustment, Level of consciousness Time with Patient: 15 minutes Premorbid Psychological Status: Premorbid Cognitive, Emotional and Behavioral Status: Tenuous. The patient has high school years of education and a solid work history prior to this injury. The patient has unknown prior psychiatric difficulties, as described above. Substance abuse history is significant. Behavioral Reactions of Patient and Family/Support System: Unable to Assess. The patients family is experiencing ongoing issues of adjustment given the nature of the injury, and this aspect of recovery will require ongoing monitoring. Emotional/Behavioral Status of Patient and Family/Support System: Unable to Assess. Pertinent issues, if appropriate to this patients clinical care, are described in detail above. Maximizing Acute Care Outcome: It is recommended that the patient be monitored for emergent behavioral impulsivity as the medical condition evolves. This patients neuropathological challenges may limit rehabilitation potential going forward, and these challenges will require specialized therapeutic skills to maximize outcome. Additionally, the patients family may likely be experiencing ongoing issues of adjustment given the traumatic nature of the injury, and they may benefit from ongoing psychological assistance. Unfortunately, there is no family present. At this point in the recovery process, the patient does have cognitive capacity as the patient is able to understand a situation and its likely consequences, and he is able to manipulate information rationally. Cognitive capacity will be assessed throughout the recovery process. Anticipated Problems: Ongoing areas of concern will include behavioral impulsivity, lack of insight and judgment, which is expected to improve with time and treatment. Treatment Plan: This clinician will continue to follow with you throughout the course of this patients acute care treatment, and I will be available to meet with the patient s family/support system to facilitate their understanding and the ongoing care of their family member. The goals of neuropsychological intervention shall be both educational and supportive to the family/support system as is deemed clinically appropriate. [place] COG Scale: Level VII Disinhibition Score: 17.50 Aggression Score: 17.50 Lability Score: 18.66 Agitated Behavior Total Score: 17 Impression: 63 year old male s/p fall with alcohol dependence. Progress Note Narrative: PTD 7. The patient is neurobehaviorally managed. No significant agitation/ restlessness with recent ABS of 17 (17.5,17.5,18.7). He is finishing the Valium taper with Keppra adjunct for TIFFANY. He is [place] VII. He has decision making capacity. I will follow. - Diagnosis (1) Alcohol dependence in controlled environment Status: Acute
[2018-06-12] MEDS: Gabapentin 300 MG Capsule PO SCH ×2 (12:02→17:02)
--- NOTE | 2018-06-12 12:51 | P.PN ---
Subjective Interval history: Requesting to have IV Morphine for pain control Clear for discharge to rehab, CM assisting Physical Exam Vital signs: Vital Signs 06/11/18 16:00 06/11/18 20:00 06/12/18 00:00 Temperature 97.4 F L 97.6 F Pulse Rate 69 77 71 Respiratory Rate 18 18 Blood Pressure 141/90 H 158/97 H Pulse Oximetry 96 95 06/12/18 08:00 Temperature 97.4 F L Pulse Rate 75 Respiratory Rate 16 Blood Pressure 147/98 H Pulse Oximetry 95 Intake & Output 06/11/18 06/12/18 06/12/18 18:59 06:59 18:59 Intake Total 480 / 480 Balance 480 / 480 Weight 95.1 kg Intake: Oral 480 / 480 Other: # Voids 1 4 Date of Last Bowel Movement 06/10/18 06/12/18 06/11/18 # Bowel Movements 1 Narrative: GENERAL: 63-year-old male lying in bed in no acute distress SKIN: Warm and dry. Right periorbital ecchymosis noted. EYES: Pupils equal and round. No scleral icterus. CARDIOVASCULAR: Regular rate and rhythm. RESPIRATORY: No accessory muscle use. Lungs clear and diminished to auscultation bilaterally. GASTROINTESTINAL: Abdomen soft, non-tender, nondistended. + BS. MUSCULOSKELETAL: Extremities without cyanosis, or edema. MAEW, + perfused NEUROLOGICAL: Awake and alert. Normal speech. Results - Labs CBC & Chem 7: 06/07/18 03:11 06/07/18 03:11 Assessment and Plan - Assessment (1) Alcohol abuse with intoxication Code(s): F10.129 - Alcohol abuse with intoxication, unspecified Status: Chronic (2) Subdural hemorrhage Code(s): I62.00 - Nontraumatic subdural hemorrhage, unspecified Status: Acute (3) Subarachnoid hemorrhage Code(s): I60.9 - Nontraumatic subarachnoid hemorrhage, unspecified Status: Acute (4) Multiple facial bone fractures Code(s): S02.92XA - Unspecified fracture of facial bones, initial encounter for closed fracture Status: Acute - Plan [place]: Fell from the standing position into the road. ETOH = 362. INJURIES: RIGHT frontal/temporal SDH (3mm) SAH RIGHT temporal RIGHT zygomaticomaxillary, orbital floor, nasal fxs (non-op) RIGHT face lac (sutures) RIGHT rib fxs (4, 5) RIGHT pulmonary contusion LEFT elbow effusion PMHx: ETOH, Afib RIGHT frontal/temporal SDH, SAH Neurosurgery consulted, follow-up as outpatient Nonoperative management neuro checks Neuropsychology consulted Avoid second head injury Limit overnight interruptions to promote sleep Imitrex for headache helped with pts pain RIGHT zygomaticomaxillary, orbital floor, nasal fxs OMFS consulted, follow-up as outpatient Nonoperative management Pain control Soft diet RIGHT face lac Supportive care Wound care: Wash face wounds daily with soap and water. Leave open to air Sutures removed RIGHT rib fxs, RIGHT pulmonary contusion Supportive care Pulmonary toileting 06/07: CXR shows no acute disease Pain control Bowel regimen OOB- PT and OT ordered LEFT elbow effusion Orthopedics consulted, follow-up outpatient Nonoperative management WBAT LUE Pain control EtOH abuse Continue Valium taper Haldol as needed for agitation Seizure precautions Continue Keppra to 750 mg twice daily IV MVI x 3 No s/s of DTs Plan of care discussed with patient and RN at bedside. Collaborating Trauma surgeon agrees with plan. Case management consulted to assist with discharge planning. Patient is clear from trauma surgery standpoint to safely discharge to inpatient rehab. - Attending Attestation is overall doing well, will discharge to rehab (4) Multiple facial bone fractures Qualifiers: Encounter type: initial encounter Fracture type: closed Qualified Code(s): S02.92XA - Unspecified fracture of facial bones, initial encounter for closed fracture
[2018-06-12] MEDS: diazePAM 5 MG Tablet PO SCH (20:17)
--- NOTE | 2018-06-13 07:30 | P.PNNPSY ---
- Behavior Intact: Impulsive/agitated - Cognitive Intact: Cognitive, Attention/concentration, Confused/orientation, Insight/ awareness, Judgment/problem solving, Memory - Psychosocial Moderate: Psychosocial, Family/other adjustment, Realistic expectation - Progress Notes/Response to Treatment Contents of Sessions: Adjustment, Level of consciousness Time with Patient: 15 minutes Premorbid Psychological Status: Premorbid Cognitive, Emotional and Behavioral Status: Tenuous. The patient has high school years of education and a solid work history prior to this injury. The patient has unknown prior psychiatric difficulties, as described above. Substance abuse history is significant. Behavioral Reactions of Patient and Family/Support System: Unable to Assess. The patients family is experiencing ongoing issues of adjustment given the nature of the injury, and this aspect of recovery will require ongoing monitoring. Emotional/Behavioral Status of Patient and Family/Support System: Unable to Assess. Pertinent issues, if appropriate to this patients clinical care, are described in detail above. Maximizing Acute Care Outcome: It is recommended that the patient be monitored for emergent behavioral impulsivity as the medical condition evolves. This patients neuropathological challenges may limit rehabilitation potential going forward, and these challenges will require specialized therapeutic skills to maximize outcome. Additionally, the patients family may likely be experiencing ongoing issues of adjustment given the traumatic nature of the injury, and they may benefit from ongoing psychological assistance. Unfortunately, there is no family present. At this point in the recovery process, the patient does have cognitive capacity as the patient is able to understand a situation and its likely consequences, and he is able to manipulate information rationally. Cognitive capacity will be assessed throughout the recovery process. Anticipated Problems: Ongoing areas of concern will include behavioral impulsivity, lack of insight and judgment, which is expected to improve with time and treatment. Treatment Plan: This clinician will continue to follow with you throughout the course of this patients acute care treatment, and I will be available to meet with the patient s family/support system to facilitate their understanding and the ongoing care of their family member. The goals of neuropsychological intervention shall be both educational and supportive to the family/support system as is deemed clinically appropriate. [place] COG Scale: Level VII Disinhibition Score: 17.50 Aggression Score: 17.50 Lability Score: 18.66 Agitated Behavior Total Score: 17 Impression: 63 year old male s/p fall with alcohol dependence. Progress Note Narrative: PTD 8. No significant agitation issues with ABS of 17 (17.5,17.5,18.7). He is finishing the Valium taper with Keppra adjunct for TIFFANY. He is clear for discharge. His [place] level is VII. He had decision making capacity. I will follow. - Diagnosis (1) Alcohol dependence in controlled environment Status: Acute
[2018-06-13] MEDS: Senna/Docusate Sodium 8.6/50 MG Tablet PO SCH (09:14)
[2018-06-13] MEDS: Gabapentin 300 MG Capsule PO SCH ×2 (09:14→12:00)
[2018-06-13] MEDS: levETIRAcetam 500 MG Tablet PO SCH (09:14)
[2018-06-13] MEDS: Lisinopril 20 MG Tablet PO SCH (09:15)
[2018-06-13] MEDS: Lidocaine 5% Patch T-DERMAL SCH (09:15)
[2018-06-13] MEDS: amLODIPine 5 MG Tablet PO SCH (09:15)
[2018-06-13] MEDS: Famotidine 20 MG Tablet PO SCH (09:15)
[2018-06-13] MEDS: levETIRAcetam 250 MG Tablet PO SCH (09:15)
[2018-06-13] MEDS: Metoprolol Tartrate 25 MG Tablet PO SCH (09:15)
--- NOTE | 2018-06-13 12:46 | P.DS ---
<Chrissie London M - Last Filed: 06/13/18 12:43> Date of admission: 06/05/18 02:05 Primary care physician: No Primary Care Physician Brief History from admission: S/P Fall DS: Diagnosis - Discharge Diagnosis (1) Alcohol abuse with intoxication Status: Chronic (2) Subdural hemorrhage Status: Acute (3) Subarachnoid hemorrhage Status: Acute (4) Multiple facial bone fractures Status: Acute (5) Fall Status: Acute DS: Medications - Discharge Medications Prescriptions: cyclobenzaprine 5 mg PO TID PRN 5 Days tab PRN Reason: Muscle Spasm diazepam [Valium] 5 mg PO HS #1 tab famotidine [Pepcid] 20 mg PO BID 7 Days #35 ml hydrocodone-acetaminophen [[place]] 1 tab PO Q4H PRN #10 tab PRN Reason: Acute Pain DS: Summary Hospital Course: [place]: Fell from the standing position into the road. ETOH = 362. INJURIES: RIGHT frontal/temporal SDH (3mm) SAH RIGHT temporal RIGHT zygomaticomaxillary, orbital floor, nasal fxs (non-op) RIGHT face lac (sutures) RIGHT rib fxs (4, 5) RIGHT pulmonary contusion LEFT elbow effusion PMHx: ETOH, Afib RIGHT frontal/temporal SDH, SAH Neurosurgery consulted, follow-up as outpatient Nonoperative management Stable neuro checks Neuropsychology consulted Avoid second head injury Limit overnight interruptions to promote sleep Imitrex for headache RIGHT zygomaticomaxillary, orbital floor, nasal fxs OMFS consulted, follow-up as outpatient Nonoperative management Pain control Soft diet RIGHT face lac Supportive care Wound care: Wash face wounds daily with soap and water. Leave open to air Sutures removed RIGHT rib fxs, RIGHT pulmonary contusion Supportive care Pulmonary toileting 06/07: CXR shows no acute disease Pain control Bowel regimen OOB- PT and OT ordered LEFT elbow effusion Orthopedics consulted, follow-up outpatient Nonoperative management WBAT LUE Pain control EtOH abuse Continue Valium taper, last dose tonight Keppra complete IV MVI x 3 No s/s of DTs F/U with PCP in 1 week Plan of care discussed with patient and RN at bedside. Collaborating Trauma surgeon agrees with plan. Case management consulted to assist with discharge planning. Patient is clear from trauma surgery standpoint to safely discharge to SNF. - Time Spent with Patient Total time spent providing and/or coordinating discharge services: Greater than 30 minutes - Quality: VTE Deep Vein Thrombosis/Pulmonary Embolism Present on Admission: No Exam Vital signs: Vital Signs 06/12/18 15:58 06/12/18 16:00 06/12/18 20:00 Temperature 97.5 F L 97.6 F Pulse Rate 62 54 L 70 Respiratory Rate 15 20 Blood Pressure 130/83 144/85 H Pulse Oximetry 96 98 06/13/18 00:00 06/13/18 04:00 06/13/18 08:00 Temperature 97.4 F L 97.7 F 97.3 F L Pulse Rate 77 80 66 Respiratory Rate 20 20 16 Blood Pressure 150/86 H 148/82 H 142/88 H Pulse Oximetry 95 97 95 Intake & Output 06/12/18 06/13/18 06/13/18 18:59 06:59 18:59 Intake Total 780 / 780 Balance 780 / 780 Weight 93.8 kg Intake: Oral 780 / 780 Other: # Voids 3 2 Date of Last Bowel Movement 06/11/18 06/12/18 06/12/18 # Bowel Movements 3 Narrative: GENERAL: 63-year-old male sitting on the side of the bed. SKIN: Warm and dry. Right periorbital ecchymosis and edema noted. EYES: Pupils equal and round. No scleral icterus. CARDIOVASCULAR: Regular rate and rhythm. RESPIRATORY: No accessory muscle use. Lungs clear and diminished to auscultation bilaterally. GASTROINTESTINAL: Abdomen soft, non-tender, nondistended. + BS. MUSCULOSKELETAL: Extremities without cyanosis, or edema. MAEW, + perfused NEUROLOGICAL: Awake and alert. Normal speech. Results Procedures completed during hospitalization: . - Impressions ITS Impressions Elbow X-Ray 06/04/18 22:25 CONCLUSION: Elbow effusion. This is frequently seen with a fracture however an acute fracture is not clearly identified. Suspect chronic hypertrophic change around the elbow. This includes a bony density seen adjacent to the lateral epicondyle. Abdomen/Pelvis CT 06/05/18 00:00 CONCLUSION: 1. No definite acute abnormality is seen within the abdomen and pelvis. 2. Hepatic steatosis with suspected cyst or hemangiomas. 3. Status post splenectomy. 4. Colonic diverticula. 5. Degenerative change in the lumbar spine. 6. Old left rib fractures with exuberant callus. Cervical Spine CT 06/05/18 00:00 CONCLUSION: 1. No acute bony abnormalities seen. 2. Degenerative changes described above. Chest CT 06/05/18 00:00 CONCLUSION: 1. Acute right fourth and fifth rib fractures. 2. Multiple subacute rib fractures with exuberant callus. 3. Linear density at the lateral mid left lung in the region of the rib fractures likely related to scarring or atelectasis. Face CT 06/05/18 00:00 CONCLUSION: 1. Right orbital fractures involving the orbital floor and the lateral orbit. 2. Fracturing of the right maxillary sinus. The fracture extends into the inferior aspect of the right maxilla and into the superior alveolar ridge. 3. Fracturing of the superior aspect of the right pterygoid plate. 4. Fracturing of the right zygomatic arch. 5. Fracturing of the base of the right nasal bone. Head CT 06/05/18 00:00 CONCLUSION: 1. Evolving small 2 mm right frontal and 5 mm right temporal subdural hematomas. 2. Less apparent evolving subdural blood products in the right temporal mid convexities. 3. No intercurrent new hemorrhage, hydrocephalus or midline shift. . Lumbar Spine CT 06/05/18 00:00 CONCLUSION: 1. No acute bony abnormalities seen. 2. Degenerative change as described above. Thoracic Spine CT 06/05/18 00:00 CONCLUSION: 1. No acute bony abnormality is seen. 2. Multiple old medial posterior left rib fractures with exuberant callus. Chest X-Ray 06/07/18 06:00 CONCLUSION: Clear lungs. Femur X-Ray 06/09/18 00:00 CONCLUSION: Negative examination <Jia Drew - Last Filed: 06/13/18 16:15> Date of admission: 06/05/18 02:05 Primary care physician: No Primary Care Physician DS: Diagnosis - Discharge Diagnosis (1) Alcohol abuse with intoxication Status: Chronic (2) Subdural hemorrhage Status: Acute (3) Subarachnoid hemorrhage Status: Acute (4) Multiple facial bone fractures Status: Acute DS: Summary - Time Spent with Patient Total time spent providing and/or coordinating discharge services: Exam Vital signs: Vital Signs 06/12/18 20:00 06/13/18 00:00 06/13/18 04:00 Temperature 97.6 F 97.4 F L 97.7 F Pulse Rate 70 77 80 Respiratory Rate 20 20 20 Blood Pressure 144/85 H 150/86 H 148/82 H Pulse Oximetry 98 95 97 06/13/18 08:00 06/13/18 12:00 Temperature 97.3 F L 97.8 F Pulse Rate 66 64 Respiratory Rate 16 18 Blood Pressure 142/88 H 130/78 Pulse Oximetry 95 100 Intake & Output 06/12/18 06/13/18 06/13/18 18:59 06:59 18:59 Intake Total 780 / 780 Balance 780 / 780 Weight 93.8 kg Intake: Oral 780 / 780 Other: # Voids 3 2 Date of Last Bowel Movement 06/11/18 06/12/18 06/12/18 # Bowel Movements 3 Results - Impressions ITS Impressions Elbow X-Ray 06/04/18 22:25 CONCLUSION: Elbow effusion. This is frequently seen with a fracture however an acute fracture is not clearly identified. Suspect chronic hypertrophic change around the elbow. This includes a bony density seen adjacent to the lateral epicondyle. Abdomen/Pelvis CT 06/05/18 00:00 CONCLUSION: 1. No definite acute abnormality is seen within the abdomen and pelvis. 2. Hepatic steatosis with suspected cyst or hemangiomas. 3. Status post splenectomy. 4. Colonic diverticula. 5. Degenerative change in the lumbar spine. 6. Old left rib fractures with exuberant callus. Cervical Spine CT 06/05/18 00:00 CONCLUSION: 1. No acute bony abnormalities seen. 2. Degenerative changes described above. Chest CT 06/05/18 00:00 CONCLUSION: 1. Acute right fourth and fifth rib fractures. 2. Multiple subacute rib fractures with exuberant callus. 3. Linear density at the lateral mid left lung in the region of the rib fractures likely related to scarring or atelectasis. Face CT 06/05/18 00:00 CONCLUSION: 1. Right orbital fractures involving the orbital floor and the lateral orbit. 2. Fracturing of the right maxillary sinus. The fracture extends into the inferior aspect of the right maxilla and into the superior alveolar ridge. 3. Fracturing of the superior aspect of the right pterygoid plate. 4. Fracturing of the right zygomatic arch. 5. Fracturing of the base of the right nasal bone. Head CT 06/05/18 00:00 CONCLUSION: 1. Evolving small 2 mm right frontal and 5 mm right temporal subdural hematomas. 2. Less apparent evolving subdural blood products in the right temporal mid convexities. 3. No intercurrent new hemorrhage, hydrocephalus or midline shift. . Lumbar Spine CT 06/05/18 00:00 CONCLUSION: 1. No acute bony abnormalities seen. 2. Degenerative change as described above. Thoracic Spine CT 06/05/18 00:00 CONCLUSION: 1. No acute bony abnormality is seen. 2. Multiple old medial posterior left rib fractures with exuberant callus. Chest X-Ray 06/07/18 06:00 CONCLUSION: Clear lungs. Femur X-Ray 06/09/18 00:00 CONCLUSION: Negative examination Addendum Patient today feeling much better especially states that Flexeril helping significantly with pain will discharge to rehab Discharge Plan - Discharge Order Discharge Orders: Discharge Order (Routine); Ordered 06/10/18 Ordered By: Jeri Cramer - Discharge Details Anticipated Discharge Date: 06/10/18 - Physicians Team Primary Care Provider: Primary Care Juanita,Codi Attending Provider: Beltran Jackson Other Providers: Richard Basilio MD ; Jeffrey Hernandez MD ; Velasquez Funez MD ; Jordan London MD ; Johnny Moore MD ; [employer] ; Beltran Jackson MD ; Jeri Cramer ARNP ; Devante Michelle MD ; Jia Drew MD ; Chrissie London ARNP ; Lauro Reyes MD ; Mayito Benavidez MD ; Oliver Aguilar, PhD ; [facility]
== END 2018-06-13 13:36 ==
LOC: NEPE 21:53 → NEDA 06-05 02:05 → N05 06-05 17:34
PROVIDERS: ADMIT Surgery; ATTEND Surgery